=== PATIENT | male | born 1950 | race Caucasian/White ===

== ENCOUNTER 2017-05-31 17:34 | Emergency (ER) | payer MEDICARE, SELFPAY ==
[2017-05-31 17:36] VITALS: BP 140/7; PULSE 90; RESP 16; TEMP 37.1; O2SAT 98; BMI 28.5
--- NOTE | 2017-05-31 18:15 | CT_ITS ---
STUDY: CT ABDOMEN AND PELVIS WITHOUT CONTRAST REASON FOR EXAM: Male, 66 years old. Left flank pain RADIATION DOSAGE (If Supplied By Facility): CTDIvol = ( 8.07 ) mGy, DLP = ( 435.36 ) mGycm TECHNIQUE: Transaxial images were obtained from the dome of the diaphragm to the symphysis pubis without oral contrast, and without intravenous contrast. Sagittal and coronal images were reconstructed. COMPARISON: None. FINDINGS: There are atherosclerotic calcifications of visualized coronary arteries. The visualized portions of the heart are within normal limits. Normal liver. There are multiple gallstones. Normal spleen. Normal pancreas. Normal bilateral adrenal glands. Non obstructive 1 to 2 mm right renal parenchymal stones. There is a 49 mm hypodensity of the Right kidney. This is 1-10 Hounsfield units. There is a 29 mm hypodensity of the superior right kidney. This is 23 Hounsfield units. There is a 36 mm hypodensity of the Left kidney. This is 1-10 Hounsfield units. Degenerative findings of the hips. Mild hydronephrosis caused by left 3.1MM distal ureteral stone. Normal visualized stomach. Normal small intestine. Stool throughout the colon. There is non-visualization of the appendix. There are calcifications of the abdominal aorta and vascular structures. This is consistent for atherosclerotic disease. There is no abdominal aortic aneurysm. Normal inferior vena cava. Subcentimeter mesenteric lymph nodes. Normal urinary bladder. Normal abdominal wall. There are degenerative changes of the osseous structures. CT/Abdomen/Pelvis without Cont IMPRESSION: Mild hydronephrosis caused by left 3.1MM distal ureteral stone. Cholelithiasis. Indeterminate slightly hyperdense lesion of the superior right kidney. Ultrasound can further evaluate. Simple inferior right renal cyst. Simple left renal cyst. Constipation Other findings as above. Electronically Signed: Luis Carlos Figueroa MD at 19:15 EDT , Service support ,
[2017-05-31 18:38] LABS: Absolute Lymphocyte Count 2.17 X10^3/ul (0.83-4.51); Absolute Neutrophil Count 12.4 X10^3/uL (2.0-7.7); Basophil# 0.04 X10^3/uL; Basophil% 0.3 % (0-1); Eosinophil# 0.11 X10^3/uL; Eosinophils% 0.7 % (0-5); Hematocrit 40.5 % (40-54); Hemoglobin 13.7 g/dl (13.0-16.5); Lymphocyte # 2.17 X10^3/ul (4.0); Lymphocyte % 13.7 % (19-41); Mean Corp Hgb Conc 33.8 g/gl (32-36); Mean Corpuscular Hgb 30.4 pg (27.0-32.0); Mean Corpuscular Volume 89.8 fL (80-94); Mean Platelet Vol. 10.2 fl (6.2-12.0); Monocyte# 0.97 X10^3/uL; Monocyte% 6.1 % (0-10); Neutrophil # 12.43 X10^3/uL (2.7-7.7); Neutrophil % 78.6 % (47-70); POSITIVE COUNT NO; POSITIVE DIFFERENTIAL NO; POSITIVE MORPHOLOGY NO; Platelet Count 258 K/mm3 (150-450); RBC Distribution Width SD 42.1 fl (35.1-43.9); Red Blood Count 4.51 M/mm3 (4.6-6.2); White Blood Count 15.8 K/mm3 (4.4-11.0)
[2017-05-31 18:51] LABS: Anion Gap 9 (5-15); BUN 16 mg/dL (7-18); BUN/Creat Ratio 13.6 RATIO (10-20); Calcium,Total 8.9 mg/dL (8.5-10.1); Chloride 105 mmol/L (98-107); Creatinine, Serum 1.18 mg/dL (0.70-1.30); EST Glomerular Filtration Rate 65 mL/min (>60); Est Glom Filt Rate - Afr Amer 79 mL/min (>60); Estimated Creatinine Clearance 57.97 ml/min; Glucose 138 mg/dL (74-106); Potassium 3.9 mmol/L (3.5-5.1); Sodium Level 139 mmol/L (136-145)
[2017-05-31 18:58] LABS: Bacteria 0 SEEN /hpf (None Seen); Squamous Epithelial Cells - UA 0 SEEN /hpf (0-5)
[2017-05-31 19:07] LABS: Color, Urine Yellow (Yellow); Glucose, Dipstick Normal (Normal); Ketone-Dipstick Negative (Negative); Leukocyte Esterase-Dipstick 25 /ul (Negative); Nitrite-Dipstick Negative (Negative); Occult Blood-Urine 50 /ul (Negative); Protein-Dipstick Negative (Negative); Urine Bilirubin Dipstick Negative (Negative); Urine Clarity Clear (Clear); Urine Urobilinogen 1 mg/dl (Normal)
[2017-05-31 19:20] LABS: Calcium Oxalate Crystals Ur RARE /hpf (<or=2+); Mucous, Urine RARE /hpf (<or=2+); Red Blood Cells-Urine 0-5 SEEN /hpf (0-5); White Blood Cells 0-5 SEEN /hpf (0-5)
--- NOTE | 2017-05-31 19:59 | ED.DCSUM_ITS ---
- ER Visit Summary Date of Service: 05/31/17 Chief Complaint: Left flank pain History of Present Illness: The patient is a 66 M states that today he had a sudden onset of left flank pain. He describes it as sharp and stabbing and severe. He states it is gone now. States that 2 days ago he had pain in his left testicle but it resolved. He has a history of schizoaffective disorder lives at [facility]. History of diabetes hypertension hypothyroidism and COPD. He denies any history of kidney stones. Physical Examination: Afebrile vital signs Gen: Well-nourished well-developed Head: Normocephalic atraumatic Eyes: Perrl EOMI ENT: TMs clear no rhinorrhea moist mucous membranes Neck: Supple no lymphadenopathy no JVD nontender CVS: Regular rate rhythm no murmurs normal S1-S2 Respiratory: No distress clear to auscultation bilaterally chest nontender Abdomen: Soft nontender nondistended normal bowel sounds no masses Back: Nontender Extremity: Nontender no edema Skin: Normal color no rash Neuro: alert orientated ?3 CN II-XII intact normal strength sensation reflexes gait cerebellar Psych: Normal affect normal mood Test Results: White count of 15.8. Glucose 138. Urine showed calcium oxalate crystals. CT the flank demonstrated a distal 3 mm stone on the left with associated hydronephroureter. Emergency Department Course and Treatment: Patient required no pain medicine here in the department. We will write for him to have [place]. He is return if worsening otherwise follow-up with urology Impression: 1. Left distal ureteral kidney stone with colic This note was generated with PowerMessage dictation software. It may contain incorrect words, spelling, and punctuation that were not noted in review of the chart prior to signing ED Disposition - Plan for ED Patient: Disposition: Home or Assisted Living Chief Complaint: Flank Pain Instructions: ED Stone Renal W Colic Prescriptions: Hydrocodone Bitart/Apap 5-325 [[place] 5/325] 1 - 2 tab PO Q4H PRN PRN 4 Days #20 tab PRN Reason: Pain Referrals: [facility] Doctor,Out of [Primary Care Provider] - Bran Bee MD [STAFF PHYSICIAN] -
[2017-05-31 20:20] VITALS: BP 122/77; PULSE 83; RESP 17
--- NOTE | 2017-05-31 20:21 | ED.RN ---
IV DC'ED, CATHETER INTACT, SMALL GAUZE DRESSING PLACED. REPORT CALLED TO IVETTE AT [facility] ROMANA LARA AWAITING TRANSPORT BACK TO [facility].
== END 2017-05-31 20:31 | disposition home or self-care (01) ==
PROVIDERS: Emergency Provider Emergency Medicine
DX: N20.0 Calculus of kidney (principal); J44.9 Chronic obstructive pulmonary disease, unspecified; E11.9 Type 2 diabetes mellitus without complications; I10 Essential (primary) hypertension; E03.9 Hypothyroidism, unspecified; F25.9 Schizoaffective disorder, unspecified; Z79.84 Long term (current) use of oral hypoglycemic drugs; Z79.899 Other long term (current) drug therapy
CPT/HCPCS: 74176; 80048; 81001; 85025; 99285; A4216

== ENCOUNTER 2017-07-30 10:30 | Emergency (ER) | payer MEDICARE, SELFPAY ==
[2017-07-30 10:38] VITALS: BP 121/64; PULSE 96; RESP 18; TEMP 36.6; O2SAT 98; BMI 25.6
--- NOTE | 2017-07-30 11:29 | ED.VIS.GEN ---
History of Present Illness Chief Complaint: Nausea/Vomiting Informant: Patient Onset: Month(s) - 10 Context: Gradual Onset Timing: Continuous Quality: Nausea, loss of appetite Current Severity: Moderate Maximum Severity: Moderate Worsened by: Nothing Relieved by: Nothing Associated Symptoms: Nothing Narrative: Patient states he has had these symptoms for 10 months. He has seen a nurse practitioner, they have drawn blood, but he does not have answers and so he is here seeking answers. States he has a doctor in [place], whom he has not seen for this. He is a non-smoker, and he does not have a history of smoking, he does not drink alcohol. He denies any other focal symptoms. - Past Medical History (1) Hypertension Status: Chronic (2) Diabetes mellitus, type II Status: Chronic Past Medical History - Allergies and Home Meds Allergies/Adverse Reactions: Allergies No Known Allergies Allergy (Verified 07/30/17 10:41) Home Medications: Home Medications Medication Instructions Recorded Amlodipine [Norvasc] 10 mg PO DAILY 07/30/17 Cyanocobalamin (Vitamin B-12) 500 mcg PO DAILY 07/30/17 [Vitamin B-12] Fluoxetine [Prozac] 40 mg PO DAILY 07/30/17 Hydroxyzine HCl 25 mg PO QHS 07/30/17 Lamotrigine [Lamictal] 75 mg PO BID 07/30/17 Levothyroxine [Synthroid] 25 mcg PO DAILY 07/30/17 Lisinopril [Zestril] 10 mg PO DAILY 07/30/17 Melatonin 3 mg PO QHS 07/30/17 Mirtazapine [Remeron] 7.5 mg PO QHS 07/30/17 Mirtazapine [Remeron] 15 mg PO QHS 07/30/17 Montelukast [Singulair] 10 mg PO DAILY 07/30/17 Olanzapine [Zyprexa] 10 mg PO QHS 07/30/17 [place]-3 Acid Ethyl Esters [Lovaza] 2 gm PO DAILY 07/30/17 Ondansetron [Zofran Odt] 8 mg PO Q8H PRN PRN #15 tab 07/30/17 Sucralfate [Carafate] 1 gm PO DAILY 07/30/17 Tamsulosin HCl [Flomax] 0.8 mg PO DAILY 07/30/17 Primary Care Physician: [facility] Doctor,Out of [Primary Care Provider] - Surgical History: appendectomy Smoking Status: Never smoker Review of Systems General: Reports: Weight loss. Denies: Chills, Fever, Sweats Eyes: Denies: Visual changes - bilaterally, Diplopia ENT: Denies: Bilateral ear pain, Rhinorrhea, Sore throat Cardiovascular: Denies: Chest pain, Palpitations, Heart racing Respiratory: Denies: Dyspnea, Cough, Dyspnea on exertion, Orthopnea Gastrointestinal: Reports: Nausea. Denies: Abdominal pain, Vomiting, Diarrhea, Constipation, Melena, Hematochezia Genitourinary: Denies: Dysuria, Hematuria, Frequency Musculoskeletal: Denies: Myalgias, Arthralgias, Neck pain, Back pain, Swelling, Extremity Pain Skin: Denies: Rash, Wounds Neurological: Denies: Headache, Weakness, Parasthesia, Numbness Psych: Denies: Suicidal thoughts, Suicidal ideations Endocrine: Denies: Polyuria, Polydipsia, Heat intolerance, Cold intolerance Hematologic: Denies: Easy bruising, Easy bleeding Allergy: Denies: Uticaria, Swelling of the mouth, Swelling of the tongue Physical Exam Vital Signs/Narrative: Vital Signs Temp Pulse Resp BP Pulse Ox 07/30/17 10:38 98 F 96 18 121/64 H 98 Inital Vital Signs reviewed: Yes General: Well nourished, Well developed Head: Normocephalic, Atraumatic Eyes: Perrl, EOMI ENT: Moist mucous membranes, No rhinorrhea, TM's clear. Negative for: Sinus tenderness Neck: Supple, Nontender, No lymphadenopathy, No JVD Cardiovascular: Regular rate, Regular rhythm, No murmurs. Negative for: Tachycardia Respiratory: No distress, CTA bilaterally, Chest nontender Abdomen: Soft, Nondistended, Normal bowel sounds, Tender - Very mild, supraumbilical, no palpable hernias, no skin abnormalities or color changes. No other areas of abdominal tenderness. Rectal: Deferred Back: Nontender, Normal Inspection. Negative for: CVA tenderness Extremities: Nontender, No edema Skin: Normal color, No rash - Or other lesions/suspicious nevi. Neurological: Alert, Oriented x3, Cranial nerves II-XII grossly intact, Normal Strength, Normal Sensation, Normal Gait Psychological: Normal affect Diagnostic/Tx/Re-eval Laboratory Tests 07/30/17 07/30/17 07/30/17 12:00 12:00 12:00 WBC 9.3 RBC 4.43 L Hgb 13.3 Hct 39.6 L MCV 89.4 MCH 30.0 MCHC 33.6 RDW 12.6 RDW Differential 40.9 Plt Count 218 MPV 10.1 Immature Gran % (Auto) 0.300 Neut % (Auto) 69.8 Lymph % (Auto) 21.0 [place] % (Auto) 7.2 Eos % (Auto) 1.4 Baso % (Auto) 0.3 Absolute Neuts (auto) 6.5 Absolute Lymphs (auto) 1.96 Total Counted Not Reportable Sodium 139 Potassium 3.9 Chloride 106 Carbon Dioxide 26.0 Anion Gap 7 BUN 12 Creatinine 1.19 Estim Creat Clear Calc 58.59 Est GFR (MDRD) Af Amer 78 Est GFR (MDRD) Non-Af 64 BUN/Creatinine Ratio 10.1 Glucose 95 Calcium 8.9 Total Bilirubin 0.40 AST 10 L ALT 14 L Alkaline Phosphatase 60 Total Protein 7.3 Albumin 3.5 Globulin 3.8 Albumin/Globulin Ratio 0.9 TSH 0.58 Urine Color Yellow Urine Clarity Clear Urine pH 7.0 Ur Specific [place] 1.010 Urine Protein Negative Urine Glucose (UA) Normal Urine Ketones Negative Urine Occult Blood Negative Urine Nitrite Negative Urine Bilirubin Negative Urine Urobilinogen Normal Ur Leukocyte Esterase 25 H Urine RBC 0 SEEN Urine WBC 0-5 SEEN Ur Squamous Epith Cells 0 SEEN Urine Bacteria 0 SEEN Urine Mucus 0 SEEN - Medical Decision Making His labs including urinalysis, LFTs, TSH are all normal. His review of systems and physical exam are very benign and dictate that no other testing is indicated at this time. Differential also includes abnormal hormone levels, such as low testosterone. I discussed this with him and recommend close outpatient follow-up with his doctor. He is comfortable with that plan, and requests something to use as needed for nausea, will give him his prescription for Zofran. ED Disposition - Plan for ED Patient: Disposition: Home or Assisted Living Chief Complaint: Abd Pain Diagnosis: Nausea, Fatigue Instructions: ED Nausea Vomiting Prescriptions: Ondansetron [Zofran Odt] 8 mg PO Q8H PRN PRN #15 tab PRN Reason: Nausea Referrals: [facility] Doctor,Out of [Primary Care Provider] - Keep [place] appointment
[2017-07-30] MEDS: Ondansetron ODT 4 MG Tablet 8 MG PO (11:51)
[2017-07-30 12:04] LABS: Bacteria 0 SEEN /hpf (None Seen); Mucous, Urine 0 SEEN /hpf (<or=2+); Red Blood Cells-Urine 0 SEEN /hpf (0-5); Squamous Epithelial Cells - UA 0 SEEN /hpf (0-5)
[2017-07-30 12:08] LABS: Absolute Lymphocyte Count 1.96 X10^3/ul (0.83-4.51); Absolute Neutrophil Count 6.5 X10^3/uL (2.0-7.7); Basophil# 0.03 X10^3/uL; Basophil% 0.3 % (0-1); Color, Urine Yellow (Yellow); Eosinophil# 0.13 X10^3/uL; Eosinophils% 1.4 % (0-5); Glucose, Dipstick Normal (Normal); Hematocrit 39.6 % (40-54); Hemoglobin 13.3 g/dl (13.0-16.5); Ketone-Dipstick Negative (Negative); Leukocyte Esterase-Dipstick 25 /ul (Negative); Lymphocyte # 1.96 X10^3/ul (4.0); Mean Corp Hgb Conc 33.6 g/gl (32-36); Mean Corpuscular Volume 89.4 fL (80-94); Mean Platelet Vol. 10.1 fl (6.2-12.0); Monocyte# 0.67 X10^3/uL; Monocyte% 7.2 % (0-10); Neutrophil % 69.8 % (47-70); Nitrite-Dipstick Negative (Negative); Occult Blood-Urine Negative /ul (Negative); Platelet Count 218 K/mm3 (150-450); Protein-Dipstick Negative (Negative); RBC Distribution Width CV 12.6 % (11.6-14.6); RBC Distribution Width SD 40.9 fl (35.1-43.9); Red Blood Count 4.43 M/mm3 (4.6-6.2); Urine Bilirubin Dipstick Negative (Negative); Urine Clarity Clear (Clear); Urine Urobilinogen Normal (Normal); White Blood Count 9.3 K/mm3 (4.4-11.0)
[2017-07-30 12:09] LABS: POSITIVE COUNT NO; POSITIVE DIFFERENTIAL NO; POSITIVE MORPHOLOGY NO
[2017-07-30 12:17] LABS: White Blood Cells 0-5 SEEN /hpf (0-5)
[2017-07-30 12:31] LABS: ALB/GLOB Ratio 0.9 RATIO (0.9-2.4); AST(SGOT) 10 U/L (15-37); Alanine Aminotransfer ALT/SGPT 14 U/L (16-61); Albumin, Serum 3.5 g/dL (3.2-5.0); Alkaline Phosphatase 60 U/L (45-117); Anion Gap 7 (5-15); BUN 12 mg/dL (7-18); BUN/Creat Ratio 10.1 RATIO (10-20); Calcium,Total 8.9 mg/dL (8.5-10.1); Chloride 106 mmol/L (98-107); Creatinine, Serum 1.19 mg/dL (0.70-1.30); EST Glomerular Filtration Rate 64 mL/min (>60); Est Glom Filt Rate - Afr Amer 78 mL/min (>60); Estimated Creatinine Clearance 58.59 ml/min; Globulin 3.8 g/dL (2.2-4.2); Glucose 95 mg/dL (74-106); Potassium 3.9 mmol/L (3.5-5.1); Protein, Total 7.3 g/dL (6.4-8.2); Sodium Level 139 mmol/L (136-145); Thyroid Stim Hormone (TSH) 0.58 uIU/mL (0.358-3.74)
--- NOTE | 2017-07-30 14:15 | ED.RN ---
LEFT MESSAGE AT [facility]
[2017-07-30 14:29] VITALS: PULSE 94; RESP 22; O2SAT 98
== END 2017-07-30 14:30 | disposition home or self-care (01) ==
PROVIDERS: Emergency Provider Emergency Medicine
DX: R11.2 Nausea with vomiting, unspecified (principal); R10.9 Unspecified abdominal pain; I10 Essential (primary) hypertension; E11.9 Type 2 diabetes mellitus without complications; Z79.899 Other long term (current) drug therapy
CPT/HCPCS: 80053; 81001; 84443; 85025; 99284

== ENCOUNTER 2017-11-17 18:48 | Emergency (ER) | payer MEDICARE, SELFPAY ==
[2017-11-17 18:51] VITALS: BP 116/76; PULSE 98; RESP 18; TEMP 36.8; O2SAT 95; BMI 25.2
--- NOTE | 2017-11-17 19:08 | CT_ITS ---
STUDY: CT BRAIN WITHOUT CONTRAST REASON FOR EXAM: Male, 67 years old. Altered mental status and hallucination RADIATION DOSAGE (If Supplied By Facility): CTDIvol = ( 44.99 ) mGy, DLP = ( 762.36 ) mGycm TECHNIQUE: Transaxial CT imaging of the brain was performed without administration of intravenous contrast material. Individualized dose optimization techniques were used for this CT. COMPARISON: None. FINDINGS: Normal soft tissue structures. Normal calvarium. Mild atrophy and periventricular white matter ischemic changes.. Normal basal ganglia and thalami. Normal brainstem. Normal cerebellum. There is no intracranial hemorrhage. There are no findings of an acute ischemic infarction. Normal visualized paranasal sinuses. CT/Brain/Head without Contrast IMPRESSION: Mild atrophy and periventricular white matter ischemic changes. No evidence for acute bleed. If concern for acute infarct MRI recommended Electronically Signed: Arron Wilkinson MD at 21:17 EDT , Service support ,
--- NOTE | 2017-11-17 19:44 | ED.VISSUMM ---
- ER Visit Summary Date of Service: 11/17/17 Chief Complaint: Auditory hallucinations History of Present Illness: The patient is a 67 M presenting with auditory hallucinations. Patient states he has been hearing voices for a long time now. He states it has been ongoing for several months. He states that the voices are telling him that they are going to kill him. He states they are very threatening. Per assisted living staff the voices were telling him to hurt himself. He denies suicidal ideation. Denies other complaints. Physical Examination: Vitals are stable. Patient is afebrile. Alert no acute distress. HEENT exam is unremarkable. Neck is supple. Lungs are clear and equal bilaterally. Heart is regular rate and rhythm. Abdomen is soft nontender nondistended. Extremities are unremarkable. Skin is warm and dry. No focal neurologic deficit. Denies suicidal ideation Remainder of exam is unremarkable. Emergency Department Course and Treatment: CBC, chemistries unremarkable. Urinalysis unremarkable. Tox and alcohol are negative. CT head shows mild atrophy and periventricular white matter ischemic changes. No evidence for acute bleed. Patient feels the hallucinations have been worsening recently. Discussed with the counseling center for evaluation. Disposition: Per counseling center Impression: Auditory hallucinations This note was generated with [employer] dictation software. It may contain incorrect words, spelling, and punctuation that were not noted in review of the chart prior to signing ED Disposition - Plan for ED Patient: Chief Complaint: Mental Health Referrals: [facility] Barragan,Out of [Primary Care Provider] -
[2017-11-17 20:21] LABS: Absolute Lymphocyte Count 2.55 X10^3/ul (0.83-4.51); Absolute Neutrophil Count 7.3 X10^3/uL (2.0-7.7); Basophil# 0.03 X10^3/uL; Basophil% 0.3 % (0-1); Eosinophil# 0.15 X10^3/uL; Eosinophils% 1.4 % (0-5); Hematocrit 39.5 % (40-54); Hemoglobin 13.1 g/dl (13.0-16.5); Lymphocyte # 2.55 X10^3/ul (4.0); Lymphocyte % 23.6 % (19-41); Mean Corp Hgb Conc 33.2 g/gl (32-36); Mean Corpuscular Hgb 30.2 pg (27.0-32.0); Mean Platelet Vol. 10.4 fl (6.2-12.0); Monocyte# 0.76 X10^3/uL; Neutrophil # 7.27 X10^3/uL (2.7-7.7); Neutrophil % 67.3 % (47-70); Platelet Count 246 K/mm3 (150-450); RBC Distribution Width CV 12.7 % (11.6-14.6); RBC Distribution Width SD 42.2 fl (35.1-43.9); Red Blood Count 4.34 M/mm3 (4.6-6.2); White Blood Count 10.8 K/mm3 (4.4-11.0)
[2017-11-17 20:22] LABS: POSITIVE COUNT NO; POSITIVE DIFFERENTIAL NO; POSITIVE MORPHOLOGY NO
[2017-11-17 20:29] LABS: Anion Gap 8 (5-15); BUN 13 mg/dL (7-18); BUN/Creat Ratio 14.9 RATIO (10-20); Calcium,Total 8.8 mg/dL (8.5-10.1); Chloride 103 mmol/L (98-107); Creatinine, Serum 0.87 mg/dL (0.70-1.30); EST Glomerular Filtration Rate 92 mL/min (>60); Est Glom Filt Rate - Afr Amer 111 mL/min (>60); Estimated Creatinine Clearance 77.53 ml/min; Glucose 116 mg/dL (74-106); Potassium 3.8 mmol/L (3.5-5.1); Sodium Level 138 mmol/L (136-145)
[2017-11-17 20:34] LABS: Bacteria 0 SEEN /hpf (None Seen); Mucous, Urine 0 SEEN /hpf (<or=2+); Red Blood Cells-Urine 0 SEEN /hpf (0-5); Squamous Epithelial Cells - UA 0 SEEN /hpf (0-5); White Blood Cells 0 SEEN /hpf (0-5)
[2017-11-17 20:36] LABS: Color, Urine Yellow (Yellow); Glucose, Dipstick Normal (Normal); Ketone-Dipstick Negative (Negative); Leukocyte Esterase-Dipstick 25 /ul (Negative); Nitrite-Dipstick Negative (Negative); Occult Blood-Urine 10 /ul (Negative); Protein-Dipstick Negative (Negative); Specific Gravity, Urine 1.015 (1.002-1.030); Urine Bilirubin Dipstick Negative (Negative); Urine Clarity Clear (Clear); Urine Urobilinogen Normal (Normal)
[2017-11-17 20:37] VITALS: PULSE 90; RESP 18; O2SAT 98
[2017-11-17 20:53] LABS: Alcohol, Blood (Medical)-Serum < 3.0 mg/dL
[2017-11-17 21:02] LABS: Amphetamine Urine VISTA NEGATIVE (<1000 ng/mL); Barbiturate Urine VISTA NEGATIVE (< 200 ng/mL); Benzodiazepine Urine VISTA NEGATIVE (< 200 ng/mL); Cocaine Urine VISTA NEGATIVE (< 300 ng/mL); Ecstacy Urine VISTA NEGATIVE (< 500 ng/mL); Methadone Urine VISTA NEGATIVE (< 300 ng/mL); PCP Urine VISTA NEGATIVE (< 25 ng/mL); THC Urine VISTA NEGATIVE (< 50 ng/mL); Vista UDS pH Range 5
[2017-11-17 22:14] VITALS: BP 119/77; PULSE 84; RESP 18; O2SAT 96
--- NOTE | 2017-11-17 22:59 | ED.RN ---
pt denies suicidal ideation or harming others. spirit voices are calling him vulgar names. suicide precautions not followed as only added as mental health protocol.
--- NOTE | 2017-11-18 00:05 | ED.DEP ---
ED Disposition - Plan for ED Patient: Chief Complaint: Mental Health Instructions: ED Schizo Affective Disorder Referrals: [facility],Out of [Primary Care Provider] - Counseling,Center [GROUP OF PHYSICIANS] -
[2017-11-18 00:32] VITALS: RESP 18; O2SAT 98
== END 2017-11-18 00:33 | disposition home or self-care (01) ==
PROVIDERS: Emergency Provider Emergency Medicine
DX: R44.0 Auditory hallucinations (principal); E11.9 Type 2 diabetes mellitus without complications; I10 Essential (primary) hypertension; Z79.84 Long term (current) use of oral hypoglycemic drugs; Z79.899 Other long term (current) drug therapy
CPT/HCPCS: 70450; 80048; 80307; 80320; 81001; 85025; 99285; G0480

== ENCOUNTER 2017-11-18 13:10 | Emergency (ER) | payer MEDICARE, OTHER, SELFPAY ==
[2017-11-18 13:11] VITALS: BP 124/75; PULSE 95; RESP 16; TEMP 36.8; O2SAT 95; BMI 25.0
--- NOTE | 2017-11-18 13:43 | CT_ITS ---
STUDY: CT ABDOMEN AND PELVIS WITHOUT CONTRAST REASON FOR EXAM: Male, 67 years old. Abdominal pain RADIATION DOSAGE (If Supplied By Facility): CTDIvol = ( 11.62 ) mGy, DLP = ( 606.62 ) mGycm TECHNIQUE: Transaxial images were obtained from the dome of the diaphragm to the symphysis pubis without oral contrast, and without intravenous contrast. Sagittal and coronal images were reconstructed. Individualized dose optimization techniques were used for this CT. COMPARISON: 05/31/2017 FINDINGS: The visualized lung bases are unremarkable. The visualized portions of the heart are within normal limits. Evaluation of the abdominal viscera is limited in the absence of intravenous contrast. Normal liver. There are multiple gallstones. Normal spleen. Normal pancreas. Normal bilateral adrenal glands. Bilateral renal cysts are unchanged. Nonobstructing calculi are seen within the inferior pole of the right kidney. No hydronephrosis. Normal visualized stomach. Normal small intestine. There is stool throughout the colon, in amounts suggesting constipation in the appropriate clinical setting. There is non-visualization of the appendix. There is diffuse atherosclerotic calcification of the abdominal aorta, without a demonstrated aneurysm. Normal inferior vena cava. Normal retroperitoneum. Normal urinary bladder. Normal abdominal wall. There are diffuse degenerative changes of the visualized lumbar spine. CT/Abdomen/Pelvis without Cont IMPRESSION: Constipation. No bowel obstruction or acute renal pathology. Bilateral renal cysts. Cholelithiasis. Additional findings, as detailed above. Electronically Signed: Rory Larson DO at 15:07 EDT Tel , Service support ,
--- NOTE | 2017-11-18 13:49 | ED.DCSUM_ITS ---
- ER Visit Summary Date of Service: 11/18/17 Chief Complaint: Abdominal pain History of Present Illness: The patient is a 67 M with a 4-5 month history of abdominal pain. He states he has chronic abdominal pain and nausea. He has had blood work and CAT scans previously. He states his nausea is worse and he does not feel good. His last p.o. intake was at lunch today. He states this did not cause any abdominal pain made his nausea worse. He denies fever or chills. Past history significant for diabetes, hypertension, reflux disease, schizoaffective disorder. He has had prior appendectomy. Physical Examination: Vital signs unremarkable. Patient sitting upright in bed. By into the room he is asking to go to the hospital. When I advised him that he was at the hospital he states he wanted to be admitted. Head and neck examination is normal. Heart is regular rate and rhythm. Lung sounds are clear. Abdomen is soft no focal tenderness on exam. He has active bowel sounds throughout. Test Results: CBC was a white count 11.9 with normal differential. Chemistry studies significant only for glucose of 127. LFTs and lipase normal. Urinalysis normal. CT flank reveals evidence of constipation and cholelithiasis. No acute bowel or renal findings noted. Emergency Department Course and Treatment: Patient was ordered Zofran, IV fluids , and Bentyl. He declined Bentyl and pulled his IV out as we did not get IV fluids. While awaiting workup, I did review the EMS run sheet. They state that the patient was sent in because of continued anxiety, depression, auditory hallucinations, and nurse at his assisted living facility felt he needed to go to a psychiatric hospital. I spoke with Bren from the counseling center. She will be in to evaluate him. Treatment Plan: [] Disposition: Pending crisis evaluation Impression: 1. Chronic abdominal pain and nausea 2. Schizoaffective disorder This note was generated with [employer] dictation software. It may contain incorrect words, spelling, and punctuation that were not noted in review of the chart prior to signing ED Disposition - Plan for ED Patient: Chief Complaint: Abd Pain Referrals: [facility] Doctor,Out of [NON-STAFF] -
[2017-11-18] MEDS: Ondansetron 4 MG/2 ML Vial IV (13:51)
[2017-11-18] MEDS: 0.9% Normal Saline 1,000 ML 150 ML IV (13:51)
[2017-11-18 13:53] LABS: Basophil# 0.03 X10^3/uL; Basophil% 0.3 % (0-1); Eosinophil# 0.09 X10^3/uL; Eosinophils% 0.8 % (0-5); Hematocrit 42.9 % (40-54); Lymphocyte % 25.1 % (19-41); Mean Corp Hgb Conc 32.6 g/gl (32-36); Mean Corpuscular Hgb 29.9 pg (27.0-32.0); Mean Corpuscular Volume 91.5 fL (80-94); Mean Platelet Vol. 10.4 fl (6.2-12.0); Monocyte# 0.74 X10^3/uL; Monocyte% 6.2 % (0-10); Neutrophil # 8.04 X10^3/uL (2.7-7.7); Neutrophil % 67.3 % (47-70); Platelet Count 278 K/mm3 (150-450); RBC Distribution Width CV 12.8 % (11.6-14.6); RBC Distribution Width SD 42.5 fl (35.1-43.9); Red Blood Count 4.69 M/mm3 (4.6-6.2); White Blood Count 11.9 K/mm3 (4.4-11.0)
[2017-11-18 13:55] LABS: POSITIVE COUNT NO; POSITIVE DIFFERENTIAL NO; POSITIVE MORPHOLOGY NO
[2017-11-18 14:04] LABS: AST(SGOT) 9 U/L (15-37); Alanine Aminotransfer ALT/SGPT 16 U/L (16-61); Albumin, Serum 3.6 g/dL (3.2-5.0); Alkaline Phosphatase 66 U/L (45-117); Anion Gap 8 (5-15); BUN 11 mg/dL (7-18); BUN/Creat Ratio 10.4 RATIO (10-20); Bilirubin, Direct 0.15 mg/dL (0.00-0.30); Calcium,Total 9.4 mg/dL (8.5-10.1); Chloride 103 mmol/L (98-107); Creatinine, Serum 1.06 mg/dL (0.70-1.30); EST Glomerular Filtration Rate 74 mL/min (>60); Est Glom Filt Rate - Afr Amer 89 mL/min (>60); Estimated Creatinine Clearance 63.63 ml/min; Globulin 3.8 g/dL (2.2-4.2); Glucose 127 mg/dL (74-106); Lipase 176 U/L (73-393); Potassium 4.5 mmol/L (3.5-5.1); Protein, Total 7.4 g/dL (6.4-8.2); Sodium Level 140 mmol/L (136-145)
--- NOTE | 2017-11-18 14:12 | ED.RN ---
PER MD OK TO LEAVE IV OUT AT THIS TIME D/T PATIENT PULLING IT OUT.
[2017-11-18 14:26] LABS: Bacteria 0 SEEN /hpf (None Seen); Mucous, Urine 0 SEEN /hpf (<or=2+); Red Blood Cells-Urine 0 SEEN /hpf (0-5); Squamous Epithelial Cells - UA 0 SEEN /hpf (0-5)
[2017-11-18 14:29] LABS: Color, Urine Yellow (Yellow); Glucose, Dipstick Normal (Normal); Ketone-Dipstick Negative (Negative); Leukocyte Esterase-Dipstick 25 /ul (Negative); Nitrite-Dipstick Negative (Negative); Occult Blood-Urine 10 /ul (Negative); Protein-Dipstick Negative (Negative); Urine Bilirubin Dipstick Negative (Negative); Urine Clarity Clear (Clear); Urine Urobilinogen 4 mg/dl (Normal)
[2017-11-18 14:36] LABS: White Blood Cells 0-5 SEEN /hpf (0-5)
[2017-11-18 14:45] LABS: Amphetamine Urine VISTA NEGATIVE (<1000 ng/mL); Barbiturate Urine VISTA NEGATIVE (< 200 ng/mL); Benzodiazepine Urine VISTA NEGATIVE (< 200 ng/mL); Cocaine Urine VISTA NEGATIVE (< 300 ng/mL); Ecstacy Urine VISTA NEGATIVE (< 500 ng/mL); Methadone Urine VISTA NEGATIVE (< 300 ng/mL); PCP Urine VISTA NEGATIVE (< 25 ng/mL); THC Urine VISTA NEGATIVE (< 50 ng/mL); Vista UDS pH Range 6
[2017-11-18 15:17] LABS: Alcohol, Blood (Medical)-Serum < 3.0 mg/dL
--- NOTE | 2017-11-18 15:22 | ED.DEP ---
ED Disposition - Plan for ED Patient: Disposition: Home or Assisted Living Chief Complaint: Abd Pain Instructions: ED Abdominal Pain Unkn Cause Male Referrals: [facility],Out of [NON-STAFF] -
[2017-11-18 16:24] VITALS: BP 112/73; PULSE 87; RESP 17; O2SAT 98
== END 2017-11-18 16:26 | disposition home or self-care (01) ==
PROVIDERS: Emergency Provider Emergency Medicine
DX: R10.9 Unspecified abdominal pain (principal); G89.29 Other chronic pain; R11.0 Nausea; F25.9 Schizoaffective disorder, unspecified; F32.9 Major depressive disorder, single episode, unspecified; F41.9 Anxiety disorder, unspecified; K80.20 Calculus of gallbladder without cholecystitis without obstruction; K59.00 Constipation, unspecified; E11.9 Type 2 diabetes mellitus without complications; I10 Essential (primary) hypertension; K21.9 Gastro-esophageal reflux disease without esophagitis; Z79.84 Long term (current) use of oral hypoglycemic drugs; Z79.899 Other long term (current) drug therapy
CPT/HCPCS: 74176; 80048; 80076; 80307; 80320; 81001; 82542; 83690; 85025; 96374; 99285; J7030; A4216; G0480; J2405

== ENCOUNTER 2018-10-03 06:37 | Emergency (ER) | payer MEDICARE, OTHER, SELFPAY ==
[2018-10-03 06:38] VITALS: BP 135/83; PULSE 77; RESP 17; TEMP 37; O2SAT 93; BMI 26.3
--- NOTE | 2018-10-03 07:23 | ED.VISSUMM ---
- ER Visit Summary Date of Service: 10/03/18 Chief Complaint: Stopped my medicines History of Present Illness: The patient is a 68 M with a history of type 2 diabetes, hypertension, hypothyroidism, schizoaffective disorder. He resides at [facility] He says he stopped taking his medicines about a week ago because they are making his face look hard, pale, and sunken. He denies any new medications, but he is not sure which medications he is prescribed. He is concerned that something is wrong with the pills he has, and he is requesting pills from the pharmacy at [facility]. He denies any suicidal or homicidal thoughts. He is not experiencing muscle spasms, contractions, or uncontrolled movements. He reports decreased sleep, but denies any other associated symptoms. Physical Examination: Afebrile and vital signs unremarkable. Patient is alert and in no acute distress. Oriented to person place and year. Patient is perseverating on the medications he receives from the [place], and I believe he may have some very mild paranoia about them. He is not suicidal or homicidal. He is not displaying signs of hallucinations or tor, but he is depressed. Cranial nerves grossly intact. Moves all extremities. Heart regular rate and rhythm. Lungs clear. Abdomen soft and nontender. Skin appears unremarkable. Face appears unremarkable. Test Results: CBC, CMP, urinalysis, alcohol level, and tox screen are pending. Emergency Department Course and Treatment: Patient has some mood symptoms with depression and decreased sleep, but does not appear to be having manic symptoms. He is also having some paranoid thoughts. I do not believe he is a harm to himself. I attempted to clarify whether or not he is taking his medications with his assisted living facility, but they are not answering the phone at this time. We will check medical clearance and reassess. He will likely need a crisis evaluation. Medical clearance was unremarkable. Patient continued to have paranoid symptoms. I am not sure if he is taking his medication. It is documented by nursing, but the patient says he is not taking it. I have not been able to reach anyone at his assisted living facility for further information. We will continue to attempt to contact them. We will also have a crisis evaluation. Patient was evaluated by crisis. They do not believe he is a threat to himself or others. He has some paranoia and delusions, but otherwise his symptoms are fairly mild. Crisis counselor does not feel that he needs hospitalization. His medical work-up is unremarkable. I do not believe he needs medical hospitalization or psychiatric hospitalization. I did speak with his assisted living facility. They said they are able to administer his medications and they are able to make sure that he takes them. They said that sometimes he will not take them because he believes it is causing his cheeks to be sunken. They feel this has been an ongoing issue and he has had complaints like this in the past. He has no new complaints today. They will make sure he eats and takes his medication. Patient will be discharged back to his facility. Treatment Plan: As above Disposition: Discharge Impression: 1. Schizoaffective disorder This note was generated with [employer] dictation software. It may contain incorrect words, spelling, and punctuation that were not noted in review of the chart prior to signing ED Disposition - Plan for ED Patient: [facility] [Primary Care Provider] -
--- NOTE | 2018-10-03 07:30 | NURSING ---
RN QUESTIONING PATIENT ABOUT REASON FOR NO LONGER TAKING MEDICATION. PT STATES THE PILLS FROM THE [facility] ARE POISONED AND MAKING MY FACE HARD AND PALE. PT ALSO STATES WHEN THE NURSES GIVE ME THE MEDICATION AT MY ASSISTED LIVING I SPIT THEM BACK OUT. RN TO INFORM DR. ZURITA.
[2018-10-03 07:33] LABS: Bacteria 0 SEEN /hpf (None Seen); Mucous, Urine 0 SEEN /hpf (<or=2+); Red Blood Cells-Urine 0 SEEN /hpf (0-5); Squamous Epithelial Cells - UA 0 SEEN /hpf (0-5); White Blood Cells 0 SEEN /hpf (0-5)
[2018-10-03 07:35] LABS: Color, Urine Yellow (Yellow); Glucose, Dipstick Normal (Normal); Ketone-Dipstick Negative (Negative); Leukocyte Esterase-Dipstick Negative /ul (Negative); Nitrite-Dipstick Negative (Negative); Occult Blood-Urine Negative /ul (Negative); Protein-Dipstick Negative (Negative); Urine Bilirubin Dipstick Negative (Negative); Urine Clarity Clear (Clear); Urine Urobilinogen Normal (Normal)
[2018-10-03 07:37] LABS: Absolute Lymphocyte Count 2.43 X10^3/uL (0.83-4.51); Absolute Neutrophil Count 5.8 X10^3/uL (2.0-7.7); Basophil# 0.05 X10^3/uL; Basophil% 0.6 % (0-1); Eosinophil# 0.18 X10^3/uL; Hematocrit 43.6 % (40-54); Hemoglobin 14.6 g/dL (13.0-16.5); Lymphocyte # 2.43 X10^3/ul (4.0); Lymphocyte % 26.8 % (19-41); Mean Corp Hgb Conc 33.5 g/dL (32-36); Mean Corpuscular Hgb 30.9 pg (27.0-32.0); Mean Corpuscular Volume 92.2 fL (80-94); Mean Platelet Vol. 10.2 fl (6.2-12.0); Monocyte# 0.58 X10^3/uL; Monocyte% 6.4 % (0-10); NRBC Flagged by Analyzer 0 % (0-5); Neutrophil # 5.75 X10^3/uL (2.7-7.7); Neutrophil % 63.3 % (47-70); Platelet Count 235 K/mm3 (150-450); RBC Distribution Width CV 12.3 % (11.6-14.6); RBC Distribution Width SD 41.5 fl (35.1-43.9); Red Blood Count 4.73 M/mm3 (4.6-6.2); White Blood Count 9.1 K/mm3 (4.4-11.0)
[2018-10-03 07:53] LABS: ALB/GLOB Ratio 0.9 RATIO (0.9-2.4); AST(SGOT) 16 U/L (15-37); Alanine Aminotransfer ALT/SGPT 14 U/L (16-61); Albumin, Serum 3.5 g/dL (3.2-5.0); Alkaline Phosphatase 67 U/L (45-117); Anion Gap 4 (5-15); BUN 9 mg/dL (7-18); BUN/Creat Ratio 8.3 RATIO (10-20); Calcium,Total 8.6 mg/dL (8.5-10.1); Chloride 106 mmol/L (98-107); Creatinine, Serum 1.08 mg/dL (0.70-1.30); EST Glomerular Filtration Rate 72 mL/min (>60); Est Glom Filt Rate - Afr Amer 87 mL/min (>60); Estimated Creatinine Clearance 61.57 ml/min; Globulin 3.8 g/dL (2.2-4.2); Glucose 126 mg/dL (74-106); Potassium 4.3 mmol/L (3.5-5.1); Protein, Total 7.3 g/dL (6.4-8.2); Sodium Level 138 mmol/L (136-145)
[2018-10-03 07:56] LABS: Amphetamine Urine VISTA NEGATIVE (<1000 ng/mL); Barbiturate Urine VISTA NEGATIVE (< 200 ng/mL); Benzodiazepine Urine VISTA NEGATIVE (< 200 ng/mL); Cocaine Urine VISTA NEGATIVE (< 300 ng/mL); Ecstacy Urine VISTA NEGATIVE (< 500 ng/mL); Methadone Urine VISTA NEGATIVE (< 300 ng/mL); PCP Urine VISTA NEGATIVE (< 25 ng/mL); THC Urine VISTA NEGATIVE (< 50 ng/mL); Vista UDS pH Range 7
[2018-10-03 07:58] LABS: Alcohol, Blood (Medical)-Serum < 3.0 mg/dL
--- NOTE | 2018-10-03 08:13 | ED.RN ---
linda contacted to evaluate pt for paranoia
--- NOTE | 2018-10-03 08:14 | NURSING ---
CALLED [facility], LET THEM KNOW PATIENT IS MEDICALLY CLEARED.
--- NOTE | 2018-10-03 08:16 | NURSING ---
JASON, [facility], CALLED. THEY ARE IN REPORT. SOMEONE WILL BE OVER AFTER WARDS
--- NOTE | 2018-10-03 09:00 | NURSING ---
JASON, [facility], HERE FOR PATIENT
--- NOTE | 2018-10-03 09:06 | ED.RN ---
[facility]
--- NOTE | 2018-10-03 09:40 | ED.DEP ---
ED Disposition - Plan for ED Patient: Instructions: Understanding Schizoaffective Disorder [facility]errals: [facility] [Primary Care Provider] -
--- NOTE | 2018-10-03 09:48 | NURSING ---
[facility] IN 15 MIN
[2018-10-03 09:54] VITALS: BP 147/88; PULSE 82; RESP 16; O2SAT 94
--- NOTE | 2018-10-03 09:54 | ED.RN ---
IV DC'ED, CATHETER INTACT, SMALL GAUZE DRESSING PLACED. DISCHARGE INSTRUCTIONS GIVEN TO AND REVIEWED WITH PATIENT, PATIENT DENIES QUESTIONS OR CONCERNS AND VOICES UNDERSTANDING OF DISCHARGE INSTRUCTIONS. PT AMBULATES OUT OF ROOM WITHOUT DIFFICULTY. PT HOME [facility]IA [facility].
== END 2018-10-03 09:55 | disposition home or self-care (01) ==
PROVIDERS: Emergency Provider Emergency Medicine
DX: F25.9 Schizoaffective disorder, unspecified (principal); E11.9 Type 2 diabetes mellitus without complications; I10 Essential (primary) hypertension; E03.9 Hypothyroidism, unspecified; Z91.14 Patient's other noncompliance with medication regimen; Z79.84 Long term (current) use of oral hypoglycemic drugs; Z79.899 Other long term (current) drug therapy
CPT/HCPCS: 80053; 80307; 80320; 81001; 85025; 99284; A4216; G0480

== ENCOUNTER 2018-11-27 13:09 | Emergency (ER) | payer MEDICARE, SELFPAY ==
[2018-11-27 13:11] VITALS: BP 160/101; PULSE 87; RESP 16; TEMP 36.3; O2SAT 96; BMI 26.4
--- NOTE | 2018-11-27 13:34 | CT_ITS ---
STUDY: CT BRAIN WITHOUT CONTRAST REASON FOR EXAM: Male, 68 years old. Altered mental status. RADIATION DOSAGE (If Supplied By Facility): CTDIvol = ( 60.81 ) mGy, DLP = ( 1112.69 ) mGycm TECHNIQUE: Transaxial CT imaging of the brain was performed without administration of intravenous contrast material. Individualized dose optimization techniques were used for this CT. COMPARISON: Comparison is made with prior study dated November 17, 2017. FINDINGS: Normal soft tissue structures. Normal calvarium. There is mild cerebral atrophy with widening of the extra-axial spaces and ventricular dilatation. There are areas of decreased attenuation within the white matter tracts of the supratentorial brain, consistent with microvascular disease changes. Normal basal ganglia and thalami. Normal brainstem. Normal cerebellum. There is no intracranial hemorrhage. There are no findings of an acute ischemic infarction. Atherosclerotic calcification of the cavernous portions of the internal carotid arteries bilaterally. Normal visualized paranasal sinuses. CT/Brain/Head without Contrast IMPRESSION: Chronic involutional changes of the brain. Electronically Signed: Jay Magallanes, at 14:20 EDT , Service support ,
--- NOTE | 2018-11-27 13:35 | EKG12_ITS ---
Test Reason : GEN ILLNESS Blood Pressure : / mmHG Vent. Rate : 084 BPM Atrial Rate : 084 BPM P-R Int : 170 ms QRS Dur : 090 ms QT Int : 370 ms P-R-T Axes : 050 -21 042 degrees QTc Int : 437 ms Normal sinus rhythm Normal ECG Confirmed by MARCELLE BLOOD ([id number]), photography editor ALEX QUESADA ([id number]) on 12/04/2018 1:19:22 PM Referred By: CORWIN Confirmed By:MARCELLE BLOOD
--- NOTE | 2018-11-27 13:37 | ED.VIS.GEN ---
History of Present Illness Chief Complaint: General Illness Informant: Patient Onset: Days Context: Gradual Onset Timing: Continuous Narrative: Is a 68-year-old male with history of schizoaffective disorder presenting from [facility] for medication noncompliance. Patient has been refusing to take his olanzapine and benztropine for the past few weeks because he states that [facility]. Patient needs medications are deforming his face. Patient states that the [facility] is out to get him because he is good and they are evil. He also states that they are trying to ruin his life. When asked to they are he says you know, people. Patient denies any homicidal suicidal ideations. He denies hearing voices or any visual/auditory hallucinations. He reports decreased appetite and not been able to sleep. He denies any other complaints at this time. Past Medical History - Allergies and Home Meds Allergies/Adverse Reactions: Allergies No Known Allergies Allergy (Verified 11/27/18 13:16) Primary Care Physician: [facility],[place] [Primary Care Provider] - Surgical History: appendectomy Smoking Status: Never smoker Review of Systems All systems negative except as indicated Psych: Reports: - - Paranoia Physical Exam Vital Signs/Narrative: Vital Signs Temp Pulse Resp BP Pulse Ox 11/27/18 13:11 97.4 F L 87 16 160/101 H 96 Inital Vital Signs reviewed: Yes General: Well nourished, Well developed, No Acute Distress Head: Normocephalic, Atraumatic Eyes: Perrl, EOMI ENT: Moist mucous membranes, No rhinorrhea Neck: Supple, Nontender Cardiovascular: Regular rate, Regular rhythm, No murmurs Respiratory: No distress, CTA bilaterally, Chest nontender Abdomen: Soft, Nontender, Nondistended, Normal bowel sounds Back: Nontender, Normal Inspection Extremities: Nontender, No edema Skin: Normal color, No rash Neurological: Alert, Oriented x3, Cranial nerves II-XII grossly intact, Normal Strength, Normal Sensation Psychological: Normal affect, - - It is paranoid with thoughts of prosecution. Is not appear to have insight and feels that people are out to get him. I am concerned that he is unable to care for himself especially as he has been refusing to take his psychiatric medications. Diagnostic/Tx/Re-eval Diagnostic Data Brain CT 11/27/18 13:34 IMPRESSION: Chronic involutional changes of the brain. Electronically Signed: Jay Magallanes, at 14:20 EDT , Service support , Laboratory Results - last 24 hr 11/27/18 11/27/18 11/27/18 13:50 13:50 13:50 WBC 11.1 H RBC 5.02 Hgb 15.3 Hct 46.3 MCV 92.2 MCH 30.5 MCHC 33.0 RDW Std Deviation 41.3 RDW Coeff of Kirk 12.1 Plt Count 252 MPV 10.1 Immature Gran % (Auto) 1.000 H Neut % (Auto) 75.0 H Lymph % (Auto) 16.7 L Fentress % (Auto) 6.2 Eos % (Auto) 0.5 Baso % (Auto) 0.6 Absolute Neuts (auto) 8.3 H Absolute Lymphs (auto) 1.85 Nucleated RBC % 0 Sodium 139 Potassium 4.1 Chloride 102 Carbon Dioxide 30.0 Anion Gap 7 BUN 14 Creatinine 1.14 Estim Creat Clear Calc 58.33 Est GFR (MDRD) Af Amer 82 Est GFR (MDRD) Non-Af 67 BUN/Creatinine Ratio 12.3 Glucose 123 H Calcium 8.9 Total Bilirubin 0.30 AST 17 ALT 18 Alkaline Phosphatase 80 Total Protein 7.9 Albumin 3.7 Globulin 4.2 Albumin/Globulin Ratio 0.9 Urine Color Urine Clarity Urine pH Ur Specific Labelle Urine Protein Urine Glucose (UA) Urine Ketones Urine Occult Blood Urine Nitrite Urine Bilirubin Urine Urobilinogen Ur Leukocyte Esterase Urine RBC Urine WBC Ur Squamous Epith Cells Urine Bacteria Urine Mucus Urine Opiates Screen Urine Methadone Screen Ur Barbiturates Screen Ur Phencyclidine Scrn Ur Amphetamines Screen U Methamphetamin-MDMA U Benzodiazepines Scrn Urine Cocaine Screen U Cannabinoids Screen Ur Drug Screen Comment Ethyl Alcohol 3.0 11/27/18 11/27/18 15:15 15:15 WBC RBC Hgb Hct MCV MCH MCHC RDW Std Deviation RDW Coeff of Kirk Plt Count MPV Immature Gran % (Auto) Neut % (Auto) Lymph % (Auto) Fentress % (Auto) Eos % (Auto) Baso % (Auto) Absolute Neuts (auto) Absolute Lymphs (auto) Nucleated RBC % Sodium Potassium Chloride Carbon Dioxide Anion Gap BUN Creatinine Estim Creat Clear Calc Est GFR (MDRD) Af Amer Est GFR (MDRD) Non-Af BUN/Creatinine Ratio Glucose Calcium Total Bilirubin AST ALT Alkaline Phosphatase Total Protein Albumin Globulin Albumin/Globulin Ratio Urine Color Yellow Urine Clarity Sl. Cloudy Urine pH 6.5 Ur Specific Labelle 1.010 Urine Protein Negative Urine Glucose (UA) 100 H Urine Ketones Negative Urine Occult Blood 10 H Urine Nitrite Negative Urine Bilirubin Negative Urine Urobilinogen Normal Ur Leukocyte Esterase Negative Urine RBC 0-5 SEEN Urine WBC 0 SEEN Ur Squamous Epith Cells 0 SEEN Urine Bacteria 0 SEEN Urine Mucus 0 SEEN Urine Opiates Screen NEGATIVE Urine Methadone Screen NEGATIVE Ur Barbiturates Screen NEGATIVE Ur Phencyclidine Scrn NEGATIVE Ur Amphetamines Screen NEGATIVE U Methamphetamin-MDMA NEGATIVE U Benzodiazepines Scrn NEGATIVE Urine Cocaine Screen NEGATIVE U Cannabinoids Screen NEGATIVE Ur Drug Screen Comment Ethyl Alcohol - Rhythm Strip Rhythm Strip: Sinus Rhythm Rate: 84 Ectopy: None - EKG Initial EKG Interpretation: Sinus Rhythm, - - Normal EKG No ST segment abnormality - Medical Decision Making Patient is evaluated for worsening paranoia and medication noncompliance from his nursing facility. Despite multiple interventions at the skilled nursing where they have sat down and explained to him that he needs to take his medications and so on patient's continued to feel very paranoid and this seems to be worsening. I do feel that patient would benefit from inpatient psychiatric evaluation. He is medically cleared. Patient is excepted at [facility] for Dr. Davies. Stable at time of disposition. ED Disposition - Plan for ED Patient: [facility] -
[2018-11-27 14:03] LABS: Absolute Lymphocyte Count 1.85 X10^3/uL (0.83-4.51); Absolute Neutrophil Count 8.3 X10^3/uL (2.0-7.7); Basophil# 0.07 X10^3/uL; Basophil% 0.6 % (0-1); Eosinophil# 0.05 X10^3/uL; Eosinophils% 0.5 % (0-5); Hematocrit 46.3 % (40-54); Hemoglobin 15.3 g/dL (13.0-16.5); Lymphocyte # 1.85 X10^3/ul (4.0); Lymphocyte % 16.7 % (19-41); Mean Corpuscular Hgb 30.5 pg (27.0-32.0); Mean Corpuscular Volume 92.2 fL (80-94); Mean Platelet Vol. 10.1 fl (6.2-12.0); Monocyte# 0.68 X10^3/uL; Monocyte% 6.2 % (0-10); NRBC Flagged by Analyzer 0 % (0-5); Neutrophil # 8.29 X10^3/uL (2.7-7.7); Platelet Count 252 K/mm3 (150-450); RBC Distribution Width CV 12.1 % (11.6-14.6); RBC Distribution Width SD 41.3 fl (35.1-43.9); Red Blood Count 5.02 M/mm3 (4.6-6.2); White Blood Count 11.1 K/mm3 (4.4-11.0)
[2018-11-27 14:28] LABS: ALB/GLOB Ratio 0.9 RATIO (0.9-2.4); AST(SGOT) 17 U/L (15-37); Alanine Aminotransfer ALT/SGPT 18 U/L (16-61); Albumin, Serum 3.7 g/dL (3.2-5.0); Alkaline Phosphatase 80 U/L (45-117); Anion Gap 7 (5-15); BUN 14 mg/dL (7-18); BUN/Creat Ratio 12.3 RATIO (10-20); Calcium,Total 8.9 mg/dL (8.5-10.1); Chloride 102 mmol/L (98-107); Creatinine, Serum 1.14 mg/dL (0.70-1.30); EST Glomerular Filtration Rate 67 mL/min (>60); Est Glom Filt Rate - Afr Amer 82 mL/min (>60); Estimated Creatinine Clearance 58.33 ml/min; Globulin 4.2 g/dL (2.2-4.2); Glucose 123 mg/dL (74-106); Potassium 4.1 mmol/L (3.5-5.1); Protein, Total 7.9 g/dL (6.4-8.2); Sodium Level 139 mmol/L (136-145)
--- NOTE | 2018-11-27 14:54 | CM.ED ---
SOCIAL WORK ASSESSMENT INFORMANT: DR. MCCLELLAN REASON FOR REFERRAL: MENTAL HEALTH EVALUATION, MEDICATION NONCOMPLIANCE LIVING SITUATION: PATIENT RESIDES AT [facility]. SUPPORT/RESOURCES: PATIENT HAS LEGAL GUARDIAN THROUGH THE [facility]- ESTEPH[place]IA DAVIS AND COMPUTER AIDED DESIGN DESIGNER THROUGH THE [employer] . PATIENT STATES ALSO HAS SISTER, TIFFANIE LARA ([facility]) AND BROTHER, AUGUSTIN LARA ([place]). MENTAL HEALTH TREATMENT/HISTORY: PATIENT REPORTS HX OF DEPRESSION AND SCHIZOAFFECTIVE DISORDER. PATIENT STATES HAS NOT BEEN TAKING HIS MEDICATION [facility] AND THEY ARE GIVING ME BAD PILLS THAT TEAR MY FACE UP. PATIENT STATES IS IN THE EMERGENCY ROOM TODAY D/T MENTAL CRUELTY AND SOCIAL GAMES. PATIENT REPORTS HAS NOT BEEN ABLE TO SLEEP AND HAS NO APPETITE. PATIENT WANTING MEDICATION TO HELP WITH THIS. DISCUSSED WITH PATIENT'S LEGAL GUARDIAN, ESTEPHANIA DAVIS AND [facility] OVER THE PHONE. PER ESTEPHANIA, PATIENT NEEDING INPATIENT PSYCH HOSPITALIZATION AND REQUESTED PATIENT BE SENT TO THE EMERGENCY DEPARTMENT THIS DAY. INFORMED PATIENT HAVING INCREASINGLY BIZARRE BEHAVIOR, PARANOID, DELUSIONAL, AND LACKING INSIGHT INTO MENTAL HEALTH. SUBSTANCE ABUSE HISTORY: PATIENT DENIES ANY CURRENT USE. PATIENT REPORTS 3-4 YEARS AGO WAS USING CRACK COCAINE AND MARIJUANA. MENTAL STATUS EXAM: PATIENT ALERT AND ORIENTED. MEMORY: FAIR APPEARANCE/GENERAL BEHAVIOR: CALM MOOD/AFFECT: ANXIOUS COMMUNICATION PATTERN: RESPONDS TO QUESTIONS THOUGHT PROCESS: PARANOID, DELUSIONS RISK TO SELF/OTHERS: PATIENT DENIES ANY SUICIDAL OR HOMICIDAL IDEATION. COLLABORATION WITH DR. MCCLELLAN, PATIENT'S LEGAL GUARDIAN, AND COMPUTER AIDED DESIGN DESIGNER FROM THE [place]. PATIENT REQUIRING INPATIENT HOSPITALIZATION FOR STABILIZATION D/T NON COMPLIANCE WITH MEDICATIONS. PATIENT STATES I JUST WANT TO FEEL BETTER. I HAVE NOT SLEPT OR ATE. THIS WORKER TO MAKE APPROPRIATE REFERRAL. PLAN: INPATIENT HOSPITALIZATION NAM WRIGHT, CLUB ATTENDANT, CATHODE WASHER.
--- NOTE | 2018-11-27 15:00 | CM.ED ---
SOCIAL WORK REQUESTED COPY OF GUARDIANSHIP PAPERWORK FROM PATIENT'S GUARDIAN, ESTEPHANIA DAVIS. ESTEPHANIA TO HAVE OFFICE FAX OVER FORMS. WILL ADD TO CHART ONCE RECEIVED. NAM WRIGHT, CRITICAL CARE PHYSICIAN ASSISTANT, METAL MOVER.
[2018-11-27 15:19] LABS: Bacteria 0 SEEN /hpf (None Seen); Mucous, Urine 0 SEEN /hpf (<or=2+); Squamous Epithelial Cells - UA 0 SEEN /hpf (0-5); White Blood Cells 0 SEEN /hpf (0-5)
[2018-11-27 15:25] LABS: Color, Urine Yellow (Yellow); Glucose, Dipstick 100 mg/dl (Normal); Ketone-Dipstick Negative (Negative); Leukocyte Esterase-Dipstick Negative /ul (Negative); Nitrite-Dipstick Negative (Negative); Occult Blood-Urine 10 /ul (Negative); Protein-Dipstick Negative (Negative); Urine Bilirubin Dipstick Negative (Negative); Urine Clarity Sl. Cloudy (Clear); Urine Urobilinogen Normal (Normal); Urine pH 6.5 (5.0 - 8.0)
[2018-11-27 15:33] LABS: Red Blood Cells-Urine 0-5 SEEN /hpf (0-5)
[2018-11-27 16:00] LABS: Amphetamine Urine VISTA NEGATIVE (<1000 ng/mL); Barbiturate Urine VISTA NEGATIVE (< 200 ng/mL); Benzodiazepine Urine VISTA NEGATIVE (< 200 ng/mL); Cocaine Urine VISTA NEGATIVE (< 300 ng/mL); Ecstacy Urine VISTA NEGATIVE (< 500 ng/mL); Methadone Urine VISTA NEGATIVE (< 300 ng/mL); PCP Urine VISTA NEGATIVE (< 25 ng/mL); THC Urine VISTA NEGATIVE (< 50 ng/mL); Vista UDS pH Range 6
[2018-11-27 16:10] VITALS: BP 161/98
--- NOTE | 2018-11-27 16:13 | CM.ED ---
SOCIAL WORK REFERRAL FAXED AND CALLED TO [facility]. REFERRAL INFORMATION GIVEN TO JAY. JAY TO REVIEW REFERRAL AND GET BACK TO THIS WORKER. NAM WRIGHT, ARMATURE COIL WINDER, MANAGER INFUSION.
--- NOTE | 2018-11-27 16:16 | CM.ED ---
SOCIAL WORK CALL TO THE [facility] TO INFORM GUARDIANSHIP PAPERS HAVE NOT BEEN RECEIVED AT THIS TIME, SPOKE WITH RAND. CALL TRANSFERRED TO [facility] IN MEDICAL RECORDS. PER CHAO, WILL FAX OVER GUARDIANSHIP FORMS. NAM WRIGHT MSW, MANAGER CORPORATE RESPONSIBILITY.
--- NOTE | 2018-11-27 17:00 | CM.ED ---
SOCIAL WORK RECEIVED CALL FROM GERALDO WITH [facility]. PATIENT ACCEPTED BY DR. CORDERO TO [facility]. NURSE TO CALL REPORT TO . COPY OF PINK SLIP FAXED TO [facility]. NAM WRIGHT, ALLERGIST IMMUNOLOGIST, POULTRY FARM LABORER.
--- NOTE | 2018-11-27 18:32 | CM.ED ---
SOCIAL WORK CALL TO PATIENT'S GUARDIAN, ESTEPHANIA DAVIS . UPDATED ON PATIENT'S ACCEPTANCE TO [facility]. INFORMED OF ISSUES WITH TRANSPORTATION THIS EVENING. WILL UPDATE WHEN TRANSPORTATION ARRANGED. NAM WRIGHT, BOOKIE, KITCHEN AND COUNTER WORKER.
[2018-11-27 19:46] VITALS: BP 150/82; PULSE 78; RESP 16; O2SAT 97
== END 2018-11-27 20:54 ==
PROVIDERS: Emergency Provider Emergency Medicine
DX: F25.9 Schizoaffective disorder, unspecified (principal); F22 Delusional disorders; Z91.14 Patient's other noncompliance with medication regimen; Z79.84 Long term (current) use of oral hypoglycemic drugs; Z79.82 Long term (current) use of aspirin; Z79.899 Other long term (current) drug therapy
CPT/HCPCS: 70450; 80053; 80307; 80320; 81001; 85025; 93005; 99285; G0480

== ENCOUNTER 2018-12-23 12:42 | Emergency (ER) | payer MEDICARE, OTHER, SELFPAY ==
[2018-12-23] VITALS (7 sets, daily range): BP systolic 127–151; BP diastolic 82–106; PULSE 76–104; RESP 16–18; TEMP 36.6; O2SAT 96–100; BMI 27.4
--- NOTE | 2018-12-23 13:03 | EKG12_ITS ---
Test Reason : [facility] Blood Pressure : / mmHG Vent. Rate : 089 BPM Atrial Rate : 089 BPM P-R Int : 168 ms QRS Dur : 092 ms QT Int : 346 ms P-R-T Axes : 055 -04 062 degrees QTc Int : 420 ms Normal sinus rhythm Incomplete right bundle branch block Borderline ECG Confirmed by ROSA KAUFFMAN, JASPAL ([id number]), sound editor ANETA FISHER ([id number]) on 12/28/2018 10:19:58 AM Referred By: Confirmed By:JASPAL LEE MD
[2018-12-23 13:35] LABS: Absolute Lymphocyte Count 4.07 X10^3/uL (0.83-4.51); Absolute Neutrophil Count 7.1 X10^3/uL (2.0-7.7); Basophil# 0.06 X10^3/uL; Basophil% 0.5 % (0-1); Eosinophil# 0.22 X10^3/uL; Eosinophils% 1.8 % (0-5); Hematocrit 45.7 % (40-54); Hemoglobin 14.9 g/dL (13.0-16.5); Lymphocyte # 4.07 X10^3/ul (4.0); Lymphocyte % 32.4 % (19-41); Mean Corp Hgb Conc 32.6 g/dL (32-36); Mean Corpuscular Hgb 30.5 pg (27.0-32.0); Mean Corpuscular Volume 93.5 fL (80-94); Mean Platelet Vol. 10.2 fl (6.2-12.0); Monocyte# 1.01 X10^3/uL; NRBC Flagged by Analyzer 0 % (0-5); Neutrophil # 7.05 X10^3/uL (2.7-7.7); Neutrophil % 56.1 % (47-70); Platelet Count 248 K/mm3 (150-450); RBC Distribution Width CV 12.4 % (11.6-14.6); RBC Distribution Width SD 42.5 fl (35.1-43.9); Red Blood Count 4.89 M/mm3 (4.6-6.2); White Blood Count 12.6 K/mm3 (4.4-11.0)
[2018-12-23 13:44] LABS: Amphetamine Urine VISTA NEGATIVE (<1000 ng/mL); Barbiturate Urine VISTA NEGATIVE (< 200 ng/mL); Benzodiazepine Urine VISTA NEGATIVE (< 200 ng/mL); Cocaine Urine VISTA NEGATIVE (< 300 ng/mL); Ecstacy Urine VISTA NEGATIVE (< 500 ng/mL); Methadone Urine VISTA NEGATIVE (< 300 ng/mL); PCP Urine VISTA NEGATIVE (< 25 ng/mL); THC Urine VISTA NEGATIVE (< 50 ng/mL); Vista UDS pH Range 5
[2018-12-23 13:47] LABS: Anion Gap 8 (5-15); BUN 12 mg/dL (7-18); BUN/Creat Ratio 10.9 RATIO (10-20); Calcium,Total 9.2 mg/dL (8.5-10.1); Chloride 102 mmol/L (98-107); EST Glomerular Filtration Rate 70 mL/min (>60); Est Glom Filt Rate - Afr Amer 85 mL/min (>60); Estimated Creatinine Clearance 60.45 ml/min; Glucose 119 mg/dL (74-106); Potassium 3.7 mmol/L (3.5-5.1); Sodium Level 137 mmol/L (136-145)
[2018-12-23 14:05] LABS: Alcohol, Blood (Medical)-Serum < 3.0 mg/dL
--- NOTE | 2018-12-23 15:08 | ED.VISSUMM ---
- ER Visit Summary Date of Service: 12/23/18 Chief Complaint: Abnormal behavior History of Present Illness: The patient is a 68 M who presents with delusion and abnormal behavior at his extended care facility. Patient states people at his extended care facility are trying to poison his food. Patient states the people there a jealous of him because of his good looks and athletic ability. Patient has been threatening to leave the facility. Patient states that he is a Lutheran and he is close with God. Patient states that other people at the facility are terrorists. Physical Examination: Vital signs are stable. Patient is afebrile. Patient is in no acute distress. Oral mucosa is pink and moist. Neck is supple. Trachea is midline. There is no JVD noted. Heart was regular rate and rhythm. Lungs are clear and equal bilateral. Abdomen is soft. Bowel sounds are normal. There is no tenderness. There is no guarding noted. Skin is warm dry. Cranial nerves II through XII are intact. There are no focal motor or sensory deficits noted. Patient is having some pressured speech and delusions. Patient having some paranoid ideation. Patient has poor insight and judgment. Test Results: CBC and basic metabolic profile were essentially within normal limits. Urine tox screen was negative. Serum alcohol level was negative. Emergency Department Course and Treatment: Case was discussed with crisis counseling. Crisis felt like patient needed to be placed for further psychiatric evaluation and treatment. [facility] slip was filled out on the patient. Crisis counselor is attempting to place the patient in a psychiatric facility. Disposition: Transfer to psychiatric center Impression: 1. Delusions This note was generated with [employer] dictation software. It may contain incorrect words, spelling, and punctuation that were not noted in review of the chart prior to signing ED Disposition - Plan for ED Patient: Disposition: Psychiatric Hospital or Unit Diagnosis: Delusions [facility] [Primary [facility] Provider] -
--- NOTE | 2018-12-23 21:24 | ED.RN ---
PATIENT REFUSED ALL EVENING MEDICATIONS.
[2018-12-23] MEDS: LORazepam 1 MG Tablet PO (23:26)
[2018-12-24 01:00] VITALS: RESP 14
[2018-12-24 03:00] VITALS: RESP 15
[2018-12-24 04:08] VITALS: BP 127/85; PULSE 85; RESP 15; O2SAT 99
[2018-12-24 06:00] VITALS: RESP 15
== END 2018-12-24 12:52 ==
PROVIDERS: Emergency Provider Emergency Medicine
DX: F22 Delusional disorders (principal); R51 Headache; Z79.84 Long term (current) use of oral hypoglycemic drugs; Z79.82 Long term (current) use of aspirin; Z79.899 Other long term (current) drug therapy
CPT/HCPCS: 80048; 80307; 80320; 85025; 93005; 99285; G0480

== ENCOUNTER 2019-05-24 20:45 | Emergency (ER) | payer MEDICARE, MEDICAID, OTHER, SELFPAY ==
[2018-12-23 12:44] VITALS: BMI 27.4
[2019-05-24 20:46] VITALS: BP 140/81; PULSE 92; RESP 16; TEMP 36.5; O2SAT 96; BMI 25.1
--- NOTE | 2019-05-24 21:00 | ED.DCSUM_ITS ---
- ER Visit Summary Date of Service: 05/24/19 Chief Complaint: [Insomnia] History of Present Illness: The patient is a 68 M [presents to the emergency department from assisted living facility for complaint of insomnia. Patient states that he is not been able to sleep for quite a while. Patient states he is up all night. Nursing staff at the assisted living facility states that he has not taken any of his psychiatric medications since January of last year. Patient tells me that he has a court hearing in a few days to determine if he can live on his own because he would like to get his own apartment. Patient states that he stopped taking his psychiatric medications because it causes facial distortions and causes the bones in his face to elongate. Patient denies any auditory or visual hallucinations otherwise. He denies being suicidal or homicidal. He has no other physical complaints. Patient has history of diabetes as well as hypertension.] Physical Examination: [HEENT-PERRLA, EOMI. Cranial nerves II through XII grossly intact. TMs clear. Mucous membranes moist. No adenopathy. Cardiovascular-regular rate and rhythm without murmur or ectopy Lungs-clear to auscultation, chest wall stable without crepitus or subcu emphysema Abdomen-normoactive bowel sounds, soft, nontender, no rebound or rigidity, no peritoneal signs. Extremities-intact ?4, normal range of motion, normal pulses, atraumatic] Test Results: [None indicated] Emergency Department Course and Treatment: [I had Mohan from social work see patient and speak to him who then spoke with his power of divorce attorney as well as to staff at the assisted living facility. Patient is not suicidal or homicidal. At this point he simply looking for something to help him sleep. I am happy to write him a prescription for melatonin.] Treatment Plan: [Treat patient with melatonin.] Disposition: [Discharged home in stable condition] Impression: [Insomnia] This note was generated with [employer] dictation software. It may contain incorrect words, spelling, and punctuation that were not noted in review of the chart prior to signing ED Disposition - Plan for ED Patient: [facility]] -
--- NOTE | 2019-05-24 21:30 | ED.DEP ---
ED Disposition - Plan for ED Patient: Instructions: Insomnia, Treating Insomnia Prescriptions: Melatonin/Pyridoxine HCl (B6) [Melatonin 3 mg Tablet] 1 ea PO QHS PRN #30 tab PRN Reason: Insomnia Prescription Printed [facility] [Primary Care Provider] -
--- NOTE | 2019-05-24 21:31 | CM.ED ---
SOCIAL WORK INFORMANT: DR. PIERCE REASON FOR REFERRAL: MENTAL HEALTH CHIEF COMPLAINT: PATIENT REPORTS HAS BEEN HAVING ISSUES WITH SLEEPING. REQUESTING MEDICATION TO ASSIST WITH SLEEP. LIVING SITUATION: [facility]. SUPPORT/RESOURCES: PATIENT FOLLOWS WITH THE COUNSELING CENTER AND HAS A GUARDIAN-ESTEPHANIA SUSAN [phone], COVERED BUTTON MAKER-GURPREET ABDUL, AND WAS LAST SEEN [facility] ON 04/11/2019. MENTAL HEALTH HISTORY/TREATMENT: PATIENT WITH HISTORY OF DEPRESSION AND SCHIZOAFFECTIVE DISORDER. INFORMED BY PATIENT'S GUARDIAN, ESTEPHANIA AND NURSE, KAN FROM [facility] PATIENT HAS NOT BEEN TAKING MEDICATIONS SINCE JANUARY. SUBSTANCE ABUSE HISTORY: PATIENT DENIES ANY CURRENT USE. REPORTS USED TO USE CRACK COCAINE AND MARIJUANA 4 YEARS AGO. RISK TO SELF/OTHERS: PATIENT DENIES ANY SUICIDAL OR HOMICIDAL IDEATIONS. ORIENTATION: A&OX3 MEMORY: FAIR APPEARANCE/GENERAL BEHAVIOR: APPROPRIATE, CALM MOOD/AFFECT: APPROPRIATE COMMUNICATION PATTERN: RESPONDS TO QUESTIONS THOUGHT PROCESS: APPROPRIATE ASSESSMENT: MET WITH PATIENT IN ROOM. INTRODUCED ROLE AND REASON FOR REFERRAL. PATIENT STATES HAS NOT BEEN ABLE TO SLEEP AND REQUESTING SOMETHING TO ASSIST WITH SLEEP. INQUIRED ABOUT WHY PATIENT IS NOT TAKING MEDICATIONS. PATIENT STATES SOME OF THE MEDICATIONS MAKE MY FACE FEEL DISTORTED. PATIENT REPORTS TINGLING IN FACE WHEN TAKING MEDICATIONS. PATIENT REPORTS FOLLOWS WITH THE [facility]SELING [facility] AND DISCUSSED MENTAL HEALTH HISTORY. PATIENT DENIES ANY SUICIDAL OR HOMICIDAL IDEATIONS. PATIENT REPORTS, I JUST WANT TO BE ABLE TO GET SOME SLEEP. COLLABORATION WITH DR. PIERCE. PLAN FOR PATIENT TO RETURN TO [facility] WITH PRESCRIPTION FOR SLEEP AIDE. CALL TO THE [facility], SPOKE WITH RYLEE. RYLEE REPORTS WILL UPDATE PATIENT'S COVERED BUTTON MAKER, GURPREET AND REQUEST SHE FOLLOW UP WITH PATIENT SOON POSSIBLE. PATIENT WAS LAST SEEN BY [facility] 04/11/2019. CALL TO PATIENT'S GUARDIAN, ESTEPHANIA SUSAN. PER ESTEPHANIA, PATIENT HAS BEEN NON-COMPLIANT WITH MEDICATION. CALL FACILITATED TO NURSE TO OBTAIN CONSENT FOR TREATMENT. CALL TO [facility] TO DISCUSS PATIENT'S RETURN, SPOKE WITH KAN. UPDATED ON PLAN. KAN VOICED CONCERNS WITH PATIENT NOT TAKING MEDICATIONS. INFORMED KAN PATIENT'S COVERED BUTTON MAKER WILL BE FOLLOWING UP. UPDATED NURSING STAFF ON THE ABOVE. PLAN: RETURN TO [facility] WITH FOLLOW UP FROM THE [facility]SELING [facility]. Kal WRIGHT MSW, RADIOSONDE OPERATOR.
--- NOTE | 2019-05-24 21:55 | ED.RN ---
called and spoke with legal guardian, Domenica for a ride back to assisted living. prescription for melatonin was not covered by insurance, will give once dose prior to dc.
[2019-05-24] MEDS: MELATONIN 3 MG TABLET PO (22:00)
--- NOTE | 2019-05-24 22:47 | ED.RN ---
verbal consent to tx given by guardian jae bird
== END 2019-05-24 22:50 | disposition home or self-care (01) ==
PROVIDERS: Emergency Provider Emergency Medicine
DX: G47.00 Insomnia, unspecified (principal); Z91.14 Patient's other noncompliance with medication regimen; E11.9 Type 2 diabetes mellitus without complications; I10 Essential (primary) hypertension; Z79.84 Long term (current) use of oral hypoglycemic drugs; Z79.899 Other long term (current) drug therapy
CPT/HCPCS: 99284

== ENCOUNTER 2019-07-12 12:08 | Emergency (ER) | payer MEDICARE, MEDICAID, OTHER, SELFPAY ==
[2019-07-12 12:09] VITALS: BP 131/88; PULSE 95; RESP 18; TEMP 36.7; O2SAT 93; BMI 24.5
--- NOTE | 2019-07-12 12:23 | CT_ITS ---
STUDY: CT BRAIN WITHOUT CONTRAST REASON FOR EXAM: Male, 68 years old. MENTAL STATUS CHANGE, ALTERCATION RADIATION DOSAGE (If Supplied By Facility): CTDIvol = ( 60.81 ) mGy, DLP = ( 2088.55 ) mGycm TECHNIQUE: Transaxial CT imaging of the brain was performed without administration of intravenous contrast material. Individualized dose optimization techniques were used for this CT. COMPARISON: Comparison is made with prior examination dated November 27, 2018 and November 17, 2017. FINDINGS: Normal soft tissue structures. Normal calvarium. There is mild cerebral atrophy with widening of the extra-axial spaces and ventricular dilatation. There are areas of decreased attenuation within the white matter tracts of the supratentorial brain, consistent with microvascular disease changes. Normal basal ganglia and thalami. Normal brainstem. Normal cerebellum. There is no intracranial hemorrhage. There are no findings of an acute ischemic infarction. Atherosclerotic calcification of the cavernous portions of the internal carotid arteries bilaterally. Normal visualized paranasal sinuses. CT/Brain/Head without Contrast IMPRESSION: Chronic involutional changes of the brain. Electronically Signed: Jay Magallanes, at 13:34 EDT , Service support ,
--- NOTE | 2019-07-12 12:24 | EKG12_ITS ---
Test Reason : MENTAL HEALTH Blood Pressure : / mmHG Vent. Rate : 083 BPM Atrial Rate : 083 BPM P-R Int : 160 ms QRS Dur : 094 ms QT Int : 364 ms P-R-T Axes : 029 -25 049 degrees QTc Int : 427 ms Normal sinus rhythm Normal ECG Confirmed by ROSA KAUFFMAN, JASPAL ([id number]), visual effects editor ANETA FISHER ([id number]) on 07/15/2019 3:12:38 PM Referred By: MALLIKA/CHELSY Confirmed By:JASPAL LEE MD
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
[2019-07-12 12:59] LABS: Absolute Lymphocyte Count 1.68 X10^3/uL (0.83-4.51); Absolute Neutrophil Count 7.9 X10^3/uL (2.0-7.7); Basophil# 0.03 X10^3/uL; Basophil% 0.3 % (0-1); Eosinophil# 0.08 X10^3/uL; Eosinophils% 0.8 % (0-5); Hematocrit 45.5 % (40-54); Hemoglobin 15.5 g/dL (13.0-16.5); Lymphocyte # 1.68 X10^3/ul (4.0); Lymphocyte % 16.3 % (19-41); Mean Corp Hgb Conc 34.1 g/dL (32-36); Mean Corpuscular Hgb 30.8 pg (27.0-32.0); Mean Corpuscular Volume 90.3 fL (80-94); Mean Platelet Vol. 10.6 fl (6.2-12.0); Monocyte# 0.62 X10^3/uL; NRBC Flagged by Analyzer 0 % (0-5); Neutrophil # 7.85 X10^3/uL (2.7-7.7); Neutrophil % 76.2 % (47-70); Platelet Count 220 K/mm3 (150-450); RBC Distribution Width CV 12.7 % (11.6-14.6); RBC Distribution Width SD 41.3 fl (35.1-43.9); Red Blood Count 5.04 M/mm3 (4.6-6.2); White Blood Count 10.3 K/mm3 (4.4-11.0)
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
[2019-07-12 13:17] LABS: Alcohol, Blood (Medical)-Serum < 3.0 mg/dL
[2019-07-12 13:18] LABS: Anion Gap 7 (5-15); BUN 17 mg/dL (7-18); BUN/Creat Ratio 14.7 RATIO (10-20); Calcium,Total 9.1 mg/dL (8.5-10.1); Chloride 104 mmol/L (98-107); Creatinine, Serum 1.16 mg/dL (0.70-1.30); EST Glomerular Filtration Rate 66 mL/min (>60); Est Glom Filt Rate - Afr Amer 80 mL/min (>60); Estimated Creatinine Clearance 57.33 ml/min; Glucose 113 mg/dL (74-106); Sodium Level 138 mmol/L (136-145)
[2019-07-12 13:56] LABS: Amphetamine Urine VISTA NEGATIVE (<1000 ng/mL); Barbiturate Urine VISTA NEGATIVE (< 200 ng/mL); Benzodiazepine Urine VISTA NEGATIVE (< 200 ng/mL); Cocaine Urine VISTA NEGATIVE (< 300 ng/mL); Ecstacy Urine VISTA NEGATIVE (< 500 ng/mL); Methadone Urine VISTA NEGATIVE (< 300 ng/mL); PCP Urine VISTA NEGATIVE (< 25 ng/mL); THC Urine VISTA NEGATIVE (< 50 ng/mL); Vista UDS pH Range 5
[2019-07-12 14:14] LABS: Mucous, Urine 0 SEEN /hpf (<or=2+); Squamous Epithelial Cells - UA 0 SEEN /hpf (0-5)
[2019-07-12 14:16] LABS: Color, Urine Yellow (Yellow); Glucose, Dipstick Normal (Normal); Ketone-Dipstick 50 mg/dl (Negative); Leukocyte Esterase-Dipstick Negative /ul (Negative); Nitrite-Dipstick Negative (Negative); Occult Blood-Urine 25 /ul (Negative); Protein-Dipstick Negative (Negative); Specific Gravity, Urine 1.025 (1.002-1.030); Urine Bilirubin Dipstick Negative (Negative); Urine Clarity Clear (Clear); Urine Urobilinogen 1 mg/dl (Normal)
[2019-07-12 14:23] LABS: Bacteria 1+ /hpf (None Seen); Red Blood Cells-Urine 0-5 SEEN /hpf (0-5); White Blood Cells 0-5 SEEN /hpf (0-5)
--- NOTE | 2019-07-12 14:28 | CM.ED ---
SOCIAL WORK PER DR. VALDEZ, PATIENT MEDICALLY CLEARED. REFERRAL FAXED TO [facility] AT THIS TIME. Kal WRIGHT, CHIEF OPERATOR HYDROFORMER, BUSINESS ANALYTICS FACULTY MEMBER.
--- NOTE | 2019-07-12 14:37 | CM.ED ---
SOCIAL WORK CALL TO [facility], VERIFIED FAX RECEIVED, SPOKE WITH ADRIANNE. PER ADRIANNE, WILL CALL ONCE REVIEW COMPLETE. Kal WRIGHT, SUPREME COURT JUSTICE, COMMUNITY LIAISON OFFICER.
[2019-07-12 14:53] VITALS: RESP 18
[2019-07-12 15:19] VITALS: RESP 18
--- NOTE | 2019-07-12 15:25 | CM.ED ---
SOCIAL WORK PATIENT ACCEPTED TO [facility] BY DR. YANELI MINA TO [facility]. NURSE TO CALL REPORT TO . PINK SLIP FAXED PER REQUEST. DIPPER MACHINE OPERATOR TO SET UP TRANSPORT. PATIENT AND STAFF UPDATED. PATIENT REMAINS CALM AND COOPERATIVE. Kal WRIGHT, MASTER COASTAL WATERS, ACCOUNTS SPECIALIST.
--- NOTE | 2019-07-12 15:33 | CM.ED ---
Addendum entered by Amber Wright 07/12/19 15:42: RECEIVED CALL BACK FROM PATIENT'S LEGAL GUARDIANESTEPHANIA. UPDATED ON ACCEPTANCE TO [facility]. ALL QUESTIONS ANSWERED. Original Note: SOCIAL WORK ATTEMPTED TO CALL TO PATIENT'S LEGAL GUARDIAN, ESTEPHANIA SHELL TO UPDATE ON PATIENT'S ACCEPTANCE TO [facility]. NO ANSWER, UNABLE TO LEAVE MESSAGE. Kal WRIGHT, CHIEF RISK OFFICER, WEAVING LOOM OPERATOR.
[2019-07-12 15:46] VITALS: BP 138/93; PULSE 87; RESP 20; O2SAT 93
--- NOTE | 2019-07-12 15:52 | ED.RN ---
[facility] ETA 2 HOURS
--- NOTE | 2019-07-12 15:54 | ED.RN ---
Sriram sainz called and updated on pt transfer to [facility]
[2019-07-12 16:00] VITALS: RESP 12
--- NOTE | 2019-07-12 16:06 | ED.RN ---
[facility] NOT AVAILABLE UNTIL AFTER 1999
[2019-07-12 17:14] VITALS: RESP 18
== END 2019-07-12 17:50 ==
LOC: ED 13:13
PROVIDERS: Emergency Provider Emergency Medicine
DX: F20.9 Schizophrenia, unspecified (principal); F31.9 Bipolar disorder, unspecified; R45.1 Restlessness and agitation; I10 Essential (primary) hypertension; Z91.14 Patient's other noncompliance with medication regimen; Z79.899 Other long term (current) drug therapy
CPT/HCPCS: 70450; 80048; 80307; 80320; 81001; 85025; 87635; 93005; 99285; G2023; G0480; U0002

== ENCOUNTER 2019-07-26 16:40 | Emergency (ER) | payer MEDICARE, MEDICAID, OTHER, SELFPAY ==
[2019-07-26 16:40] VITALS: BP 114/76; PULSE 89; RESP 16; TEMP 36.7; O2SAT 95; BMI 25.0
--- NOTE | 2019-07-26 16:49 | ED.VIS.INJ ---
History of Present Illness Chief Complaint: Upper Extremity Injury Informant: Patient, [facility] Onset: Days Mechanism/Context: Blunt Injury, Fall Quality of Pain: Dull, Aching Location: Right hand Current Severity: Mild Maximum Severity: Mild Worsened by: Nothing Relieved by: Nothing Associated Symptoms: Negative for: Parasthesias, Weakness, Loss of function, Inability to ambulate, Loss of consciousness, Amnesia Narrative: Is a 69-year-old [id number] male presents with injury to his right hand. States he fell several days ago onto his outstretched hand. He had x-rays at the nursing facility. He was told he needs a cast. He denies paresthesia, anesthesia or motor weakness. He denied head trauma. He denies any other complaints. He is not a good informant since he is slightly disoriented and reason he is at facility. Prior similar symptoms: No Recent Illness/Hospitalization: No - Past Medical History (1) Diabetes mellitus, type II Status: Chronic (2) Hypertension Status: Chronic Past Medical History - Allergies and Home Meds Allergies/Adverse Reactions: Allergies No Known Allergies Allergy (Verified 07/26/19 16:44) Primary Care Physician: [facility],[place] [Primary Care Provider] - Prior records reviewed: Yes Surgical History: appendectomy Lives: Residential Smoking Status: Never smoker Alcohol: None Drugs: None Review of Systems General: Denies: Malaise, Sweats Eyes: Denies: Visual changes - bilaterally, Blurred Vision - bilaterally ENT: Denies: Bilateral ear pain, Rhinorrhea, Sore throat Cardiovascular: Denies: Chest pain, Palpitations Respiratory: Denies: Dyspnea, Cough, Dyspnea on exertion Gastrointestinal: Denies: Nausea, Vomiting Musculoskeletal: Reports: Swelling, Extremity Pain. Denies: Myalgias, Arthralgias, Neck pain, Back pain Skin: Denies: Rash, Abscess, Abrasions, Wounds Neurological: Denies: Weakness, Parasthesia, Numbness Allergy: Denies: Uticaria, Swelling of the mouth Physical Exam Vital Signs/Narrative: Vital Signs Temp Pulse Resp BP Pulse Ox 07/26/19 16:40 98.1 F 89 16 114/76 95 Inital Vital Signs reviewed: Yes General: Well nourished, Well developed, Unkempt Head: Normocephalic, Atraumatic, - - No clinical findings of basilar skull fracture. Eyes: Perrl, EOMI, - - There is no subconjunctival hemorrhage.. Negative for: Pale conjunctiva, Scleral icterus ENT: TM's clear, No hemotympanum or drainage, No trauma. Negative for: Hemotympanum, Otorrhea, Nasal trauma, Nasal septal hematoma Neck: Nontender, Full ROM. Negative for: Spinal Tenderness, Paraspinal Tenderness Cardiovascular: Regular rate, Regular rhythm, No murmurs, Normal S1, Normal S2 Respiratory: No distress, CTA bilaterally, Chest nontender Abdomen: Soft, Nontender, Nondistended, Normal bowel sounds Back: Nontender Extremeties: There is soft tissue swelling with ecchymosis over the head of the fourth and fifth metacarpal bone. There is no rotational malalignment. The extensor minimize and extensor commonness tendon are function intact. The flexor digitorum superficialis and flexor digitorum profundus is intact for the index, long, ring and little finger. There is no subungual hematoma noted. There is no pain the patient over the carpal bones or distal radius or ulna. There is no pain the patient over the lateral medial epicondyle. Is no pain the patient over the radial head or olecranon process. There is no pain the patient over the proximal humerus. Skin: Normal color, No rash, Trauma. Negative for: Cyanosis, Diaphoresis, Jaundice Neurological: Alert, Cranial nerves II-XII grossly intact, Normal Strength, Normal Sensation. Negative for: Oriented x3 Psychological: Normal affect - Glascow Coma Scale Eye Opening: Spontaneous Motor: Obeys Commands Verbal: Oriented Coma Scale Total: 15 Diagnostic/Tx/Re-eval Chest X-Ray - ED: Read by ED Physician, - - View x-ray of the right hand reveals a fracture at the neck of the fifth metacarpal consistent with a boxer's fracture. There is approximately 10 to 20 degrees of dorsal apex angulation, which is acceptable. Of note on exam there is no rotational malalignment. - Medical Decision Making X-ray of the hand was obtained to evaluate for fracture versus contusion. Procedures - Upper Extremity Splints Upper Extremity Splint: Plaster, - - Short arm AP splint Splint Fabrication: Fabricated Location: Right ED Disposition - Plan for ED Patient: Disposition: Home or Assisted Living Diagnosis: Fracture of fifth metacarpal bone of right hand Instructions: ED Fx Boxer Referrals: [place] [Primary Care Provider] - Sreekanth Nguyen DO [STAFF PHYSICIAN] - 5-7 Days
--- NOTE | 2019-07-26 16:55 | RAD_ITS ---
STUDY: X-RAY - RIGHT HAND REASON FOR EXAM: Male, 69 years old. FALL A COUPLE DAYS AGO -- ECF SENT PATIENT HERE FOR CASTING TECHNIQUE: 3 view(s) of the hand. COMPARISON: None. FINDINGS: Normal radiocarpal articulation. Normal distal radioulnar joint. Normal visualized carpal bones. Normal carpal articulations Normal carpometacarpal articulation of the thumb. Normal second through fifth carpometacarpal joints. There is an impacted comminuted fracture of the fifth metacarpal neck and head with mild dorsal medial angulation of fracture fragments. Normal metacarpophalangeal joint of the thumb. Normal interphalangeal joint of the thumb. Normal proximal and distal phalanges of the thumb. Normal metacarpophalangeal joints of the second through fifth fingers. Normal proximal and distal interphalangeal joints of the second through fifth fingers. Normal phalanges of the second through fifth fingers. Soft tissue swelling of the proximal fifth finger. RAD/Hand Min 3 Views IMPRESSION: Acute boxer''s fracture of the fifth metacarpal Electronically Signed: Arron Wilkinson MD at 17:11 EDT , Service support ,
[2019-07-26 20:35] VITALS: PULSE 99; RESP 15; O2SAT 95
== END 2019-07-26 20:47 | disposition home or self-care (01) ==
PROVIDERS: Emergency Provider Emergency Medicine
DX: S62.336A Displaced fracture of neck of fifth metacarpal bone, right hand, initial encounter for closed fracture (principal); W19.XXXA Unspecified fall, initial encounter; Y93.9 Activity, unspecified; Y92.9 Unspecified place or not applicable; Y99.9 Unspecified external cause status; E11.9 Type 2 diabetes mellitus without complications; I10 Essential (primary) hypertension; Z79.899 Other long term (current) drug therapy
CPT/HCPCS: 29125; 73130; 99284

== ENCOUNTER 2019-07-28 19:30 | Emergency (ER) | payer MEDICARE, MEDICAID, OTHER, SELFPAY ==
[2019-07-28 19:32] VITALS: BP 216/77; PULSE 91; RESP 16; TEMP 36.9; O2SAT 94; BMI 24.3
[2019-07-28 20:23] LABS: Absolute Lymphocyte Count 1.73 X10^3/uL (0.83-4.51); Absolute Neutrophil Count 7.2 X10^3/uL (2.0-7.7); Basophil# 0.03 X10^3/uL; Basophil% 0.3 % (0-1); Eosinophil# 0.16 X10^3/uL; Eosinophils% 1.6 % (0-5); Hematocrit 42.1 % (40-54); Hemoglobin 13.7 g/dL (13.0-16.5); Lymphocyte # 1.73 X10^3/ul (4.0); Lymphocyte % 17.7 % (19-41); Mean Corp Hgb Conc 32.5 g/dL (32-36); Mean Corpuscular Hgb 30.2 pg (27.0-32.0); Mean Corpuscular Volume 92.9 fL (80-94); Mean Platelet Vol. 10.6 fl (6.2-12.0); Monocyte# 0.61 X10^3/uL; Monocyte% 6.2 % (0-10); NRBC Flagged by Analyzer 0 % (0-5); Neutrophil % 73.6 % (47-70); Platelet Count 251 K/mm3 (150-450); RBC Distribution Width CV 12.5 % (11.6-14.6); RBC Distribution Width SD 42.7 fl (35.1-43.9); Red Blood Count 4.53 M/mm3 (4.6-6.2); White Blood Count 9.8 K/mm3 (4.4-11.0)
[2019-07-28 20:42] LABS: Alcohol, Blood (Medical)-Serum < 3.0 mg/dL
[2019-07-28 20:44] LABS: Anion Gap 6 (5-15); BUN 16 mg/dL (7-18); BUN/Creat Ratio 15.2 RATIO (10-20); Calcium,Total 9.1 mg/dL (8.5-10.1); Chloride 104 mmol/L (98-107); Creatinine, Serum 1.05 mg/dL (0.70-1.30); EST Glomerular Filtration Rate 74 mL/min (>60); Est Glom Filt Rate - Afr Amer 90 mL/min (>60); Estimated Creatinine Clearance 62.43 ml/min; Glucose 129 mg/dL (74-106); Potassium 3.4 mmol/L (3.5-5.1); Sodium Level 140 mmol/L (136-145)
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
[2019-07-28 21:16] LABS: AST(SGOT) 13 U/L (15-37); Alanine Aminotransfer ALT/SGPT 16 U/L (16-61); Albumin, Serum 3.4 g/dL (3.2-5.0); Alkaline Phosphatase 60 U/L (45-117); Bilirubin, Direct 0.19 mg/dL (0.00-0.30); Globulin 3.9 g/dL (2.2-4.2); Protein, Total 7.3 g/dL (6.4-8.2)
[2019-07-28 21:50] VITALS: BP 138/74; PULSE 69; RESP 18; O2SAT 97
[2019-07-28 21:54] LABS: Amphetamine Urine VISTA NEGATIVE (<1000 ng/mL); Barbiturate Urine VISTA NEGATIVE (< 200 ng/mL); Benzodiazepine Urine VISTA NEGATIVE (< 200 ng/mL); Cocaine Urine VISTA NEGATIVE (< 300 ng/mL); Ecstacy Urine VISTA NEGATIVE (< 500 ng/mL); Methadone Urine VISTA NEGATIVE (< 300 ng/mL); PCP Urine VISTA NEGATIVE (< 25 ng/mL); THC Urine VISTA NEGATIVE (< 50 ng/mL); Vista UDS pH Range 6
== END 2019-07-28 21:51 | disposition home or self-care (01) ==
PROVIDERS: Emergency Provider Emergency Medicine
DX: F20.9 Schizophrenia, unspecified (principal); Z79.899 Other long term (current) drug therapy
CPT/HCPCS: 80048; 80076; 80307; 80320; 85025; 99284; G0480

== ENCOUNTER 2019-08-03 22:42 | Emergency (ER) | payer MEDICARE, MEDICAID, OTHER, SELFPAY ==
[2019-08-03 22:43] VITALS: BP 131/75; PULSE 86; RESP 16; TEMP 2.7; TEMP 36.9; BMI 24.6
--- NOTE | 2019-08-03 22:47 | EKG12_ITS ---
Test Reason : MENTAL HEALTH Blood Pressure : / mmHG Vent. Rate : 074 BPM Atrial Rate : 074 BPM P-R Int : 180 ms QRS Dur : 092 ms QT Int : 380 ms P-R-T Axes : 059 -15 046 degrees QTc Int : 421 ms Normal sinus rhythm Normal ECG Confirmed by ROSA KAUFFMAN, JASPAL ([id number]), editorial assistant CHAMP CORREA ([id number]) on 08/06/2019 1:36:44 PM Referred By: COURTNEY Confirmed By:JASPAL LEE MD
--- NOTE | 2019-08-03 22:47 | CT_ITS ---
STUDY: CT BRAIN WITHOUT CONTRAST REASON FOR EXAM: Male, 69 years old. Change in mental status. Patient reports hearing voices. History of schizophrenia. RADIATION DOSAGE (If Supplied By Facility): CTDIvol = ( 44.99 ) mGy, DLP = ( 779.24 ) mGycm TECHNIQUE: Transaxial CT imaging of the brain was performed without administration of intravenous contrast material. Individualized dose optimization techniques were used for this CT. COMPARISON: July 12, 2019. FINDINGS: Normal soft tissue structures. Normal calvarium. Normal size ventricles and extra-axial spaces for the patient''s age. Normal white matter tracts of the cerebral hemispheres. Normal basal ganglia and thalami. Normal brainstem. Normal cerebellum. There is no intracranial hemorrhage. There are no findings of an acute ischemic infarction. Normal visualized paranasal sinuses. CT/Brain/Head without Contrast IMPRESSION: Normal unenhanced CT scan of the brain for the patient''s age. Electronically Signed: Jarred Bazzi MD at 23:22 EDT , Service support ,
--- NOTE | 2019-08-03 22:49 | ED.VIS.GEN ---
History of Present Illness Chief Complaint: Mental Health Informant: Patient Onset: Days Context: Gradual Onset Timing: Continuous Current Severity: Moderate Maximum Severity: Moderate Narrative: The patient is a 69-year-old male with medical history significant for schizophrenia, hypertension who presents to the emergency department with auditory hallucinations. Patient has a history of hallucinations, but states he has now begun to hear evil spirits. They are telling him to cut himself and to kill himself. He states this is different than his normal hallucinations. He states he is been compliant with all his medications. He denies any fever. He denies any chills or sweats. He denies any other recent infectious symptoms. He states he is otherwise been in his normal state of health. Prior similar symptoms: Yes Recent Illness/Hospitalization: Yes Past Medical History - Allergies and Home Meds Allergies/Adverse Reactions: Allergies No Known Allergies Allergy (Verified 07/28/19 19:39) Primary Care Physician: [facility] [Primary Care Provider] - Prior records reviewed: Yes Past Medical History: - - Schizophrenia, hypertension Surgical History: appendectomy Smoking Status: Never smoker Review of Systems General: Denies: Chills, Fever, Sweats Eyes: Denies: Visual changes - bilaterally, Diplopia ENT: Denies: Rhinorrhea, Sore throat Cardiovascular: Denies: Chest pain, Palpitations Respiratory: Denies: Dyspnea, Cough, Dyspnea on exertion Gastrointestinal: Denies: Abdominal pain, Nausea, Vomiting, Diarrhea, Melena, Hematochezia Genitourinary: Denies: Dysuria, Hematuria, Frequency Musculoskeletal: Denies: Back pain, Extremity Pain Skin: Denies: Rash, Wounds Neurological: Denies: Headache, Weakness, Numbness Psych: Reports: Anxiety, Suicidal thoughts Physical Exam Vital Signs/Narrative: Vital Signs Temp Pulse Resp BP 08/03/19 22:43 36.9 F L 86 16 131/75 H Inital Vital Signs reviewed: Yes General: Well nourished, Well developed, No Acute Distress Head: Normocephalic, Atraumatic Eyes: Perrl, EOMI ENT: Moist mucous membranes, No rhinorrhea Neck: Supple, Nontender Cardiovascular: Regular rate, Regular rhythm, No murmurs Respiratory: No distress, CTA bilaterally, Chest nontender Abdomen: Soft, Nontender, Nondistended, Normal bowel sounds Back: Nontender, Normal Inspection Extremities: Nontender, No edema Skin: Normal color, No rash Neurological: Alert, Oriented x3, Cranial nerves II-XII grossly intact, Normal Strength, Normal Sensation Psychological: Normal affect, Depressed Diagnostic/Tx/Re-eval Clinical Impression(s) from Imaging Studies Brain CT 08/03/19 22:47 IMPRESSION: Normal unenhanced CT scan of the brain for the patient''s age. Electronically Signed: Jarred Bazzi MD at 23:22 EDT , Service support , Abnormal Lab Results 08/03/19 08/03/19 08/03/19 23:00 23:00 23:00 WBC 11.8 H RBC 4.46 L Hgb 13.6 Hct 41.3 MCV 92.6 MCH 30.5 MCHC 32.9 RDW Std Deviation 43.0 RDW Coeff of Kirk 12.7 Plt Count 252 MPV 10.6 Immature Gran % (Auto) 0.500 Neut % (Auto) 69.4 Lymph % (Auto) 22.0 [place] % (Auto) 5.9 Eos % (Auto) 1.9 Baso % (Auto) 0.3 Absolute Neuts (auto) 8.2 H Absolute Lymphs (auto) 2.59 Nucleated RBC % 0 Sodium 139 Potassium 3.7 Chloride 107 Carbon Dioxide 28.0 Anion Gap 4 L BUN 15 Creatinine 1.30 Estim Creat Clear Calc 50.42 Est GFR (MDRD) Af Amer 70 Est GFR (MDRD) Non-Af 58 L BUN/Creatinine Ratio 11.5 Glucose 138 H Calcium 9.0 Total Bilirubin 0.30 AST 12 L ALT 15 L Alkaline Phosphatase 65 Total Protein 7.1 Albumin 3.5 Globulin 3.6 Albumin/Globulin Ratio 1.0 Urine Color Urine Clarity Urine pH Ur Specific [place] Urine Protein Urine Glucose (UA) Urine Ketones Urine Occult Blood Urine Nitrite Urine Bilirubin Urine Urobilinogen Ur Leukocyte Esterase Urine RBC Urine WBC Ur Squamous Epith Cells Urine Bacteria Urine Mucus Urine Opiates Screen Urine Methadone Screen Ur Barbiturates Screen Ur Phencyclidine Scrn Ur Amphetamines Screen U Methamphetamin-MDMA U Benzodiazepines Scrn Urine Cocaine Screen U Cannabinoids Screen Ur Drug Screen Comment Ethyl Alcohol < 3.0 COVID-19 (AARTI) 0508/03/19 08/03/19 23:35 23:35 23:40 WBC RBC Hgb Hct MCV MCH MCHC RDW Std Deviation RDW Coeff of Kirk Plt Count MPV Immature Gran % (Auto) Neut % (Auto) Lymph % (Auto) [place] % (Auto) Eos % (Auto) Baso % (Auto) Absolute Neuts (auto) Absolute Lymphs (auto) Nucleated RBC % Sodium Potassium Chloride Carbon Dioxide Anion Gap BUN Creatinine Estim Creat Clear Calc Est GFR (MDRD) Af Amer Est GFR (MDRD) Non-Af BUN/Creatinine Ratio Glucose Calcium Total Bilirubin AST ALT Alkaline Phosphatase Total Protein Albumin Globulin Albumin/Globulin Ratio Urine Color Yellow Urine Clarity Sl. Cloudy Urine pH 6.0 Ur Specific [place] 1.020 Urine Protein Negative Urine Glucose (UA) Normal Urine Ketones Negative Urine Occult Blood 25 H Urine Nitrite Negative Urine Bilirubin Negative Urine Urobilinogen 4 H Ur Leukocyte Esterase Negative Urine RBC 0-5 SEEN Urine WBC 0 SEEN Ur Squamous Epith Cells 0 SEEN Urine Bacteria 0 SEEN Urine Mucus 0 SEEN Urine Opiates Screen NEGATIVE Urine Methadone Screen NEGATIVE Ur Barbiturates Screen NEGATIVE Ur Phencyclidine Scrn NEGATIVE Ur Amphetamines Screen NEGATIVE U Methamphetamin-MDMA NEGATIVE U Benzodiazepines Scrn NEGATIVE Urine Cocaine Screen NEGATIVE U Cannabinoids Screen NEGATIVE Ur Drug Screen Comment Ethyl Alcohol COVID-19 (AARTI) Cancelled - Medical Decision Making The patient presents to the emergency department with new auditory hallucinations that he describes as evil and that are telling him to hurt himself. This is very different than his normal baseline. Metabolic screening exam was performed. Patient is medically cleared. He was evaluated by crisis and it was thought that he would best be served with inpatient psychiatric hospitalization. Impression 1. Auditory hallucinations 2. Suicidal ideation ED Disposition - Plan for ED Patient: [facility] [[facility] -
[2019-08-03 23:21] LABS: AST(SGOT) 12 U/L (15-37); Alanine Aminotransfer ALT/SGPT 15 U/L (16-61); Albumin, Serum 3.5 g/dL (3.2-5.0); Alkaline Phosphatase 65 U/L (45-117); Anion Gap 4 (5-15); BUN 15 mg/dL (7-18); BUN/Creat Ratio 11.5 RATIO (10-20); Chloride 107 mmol/L (98-107); EST Glomerular Filtration Rate 58 mL/min (>60); Est Glom Filt Rate - Afr Amer 70 mL/min (>60); Estimated Creatinine Clearance 50.42 ml/min; Globulin 3.6 g/dL (2.2-4.2); Glucose 138 mg/dL (74-106); Potassium 3.7 mmol/L (3.5-5.1); Protein, Total 7.1 g/dL (6.4-8.2); Sodium Level 139 mmol/L (136-145)
[2019-08-03 23:28] LABS: Alcohol, Blood (Medical)-Serum < 3.0 mg/dL
[2019-08-03 23:30] VITALS: RESP 18
[2019-08-03 23:35] LABS: Absolute Lymphocyte Count 2.59 X10^3/uL (0.83-4.51); Absolute Neutrophil Count 8.2 X10^3/uL (2.0-7.7); Basophil# 0.04 X10^3/uL; Basophil% 0.3 % (0-1); Eosinophil# 0.22 X10^3/uL; Eosinophils% 1.9 % (0-5); Hematocrit 41.3 % (40-54); Hemoglobin 13.6 g/dL (13.0-16.5); Lymphocyte # 2.59 X10^3/ul (4.0); Mean Corp Hgb Conc 32.9 g/dL (32-36); Mean Corpuscular Hgb 30.5 pg (27.0-32.0); Mean Corpuscular Volume 92.6 fL (80-94); Mean Platelet Vol. 10.6 fl (6.2-12.0); Monocyte% 5.9 % (0-10); NRBC Flagged by Analyzer 0 % (0-5); Neutrophil # 8.16 X10^3/uL (2.7-7.7); Neutrophil % 69.4 % (47-70); Platelet Count 252 K/mm3 (150-450); RBC Distribution Width CV 12.7 % (11.6-14.6); Red Blood Count 4.46 M/mm3 (4.6-6.2); White Blood Count 11.8 K/mm3 (4.4-11.0)
[2019-08-03 23:46] LABS: Bacteria 0 SEEN /hpf (None Seen); Mucous, Urine 0 SEEN /hpf (<or=2+); Squamous Epithelial Cells - UA 0 SEEN /hpf (0-5); White Blood Cells 0 SEEN /hpf (0-5)
[2019-08-03 23:59] LABS: Color, Urine Yellow (Yellow); Glucose, Dipstick Normal (Normal); Ketone-Dipstick Negative (Negative); Leukocyte Esterase-Dipstick Negative /ul (Negative); Nitrite-Dipstick Negative (Negative); Occult Blood-Urine 25 /ul (Negative); Protein-Dipstick Negative (Negative); Urine Bilirubin Dipstick Negative (Negative); Urine Clarity Sl. Cloudy (Clear); Urine Urobilinogen 4 mg/dl (Normal)
[2019-08-04 00:07] LABS: Red Blood Cells-Urine 0-5 SEEN /hpf (0-5)
[2019-08-04 00:27] LABS: Amphetamine Urine VISTA NEGATIVE (<1000 ng/mL); Barbiturate Urine VISTA NEGATIVE (< 200 ng/mL); Benzodiazepine Urine VISTA NEGATIVE (< 200 ng/mL); Cocaine Urine VISTA NEGATIVE (< 300 ng/mL); Ecstacy Urine VISTA NEGATIVE (< 500 ng/mL); Methadone Urine VISTA NEGATIVE (< 300 ng/mL); PCP Urine VISTA NEGATIVE (< 25 ng/mL); THC Urine VISTA NEGATIVE (< 50 ng/mL); Vista UDS pH Range 6
[2019-08-04 01:45] VITALS: RESP 16
[2019-08-04 02:55] VITALS: BP 120/70; PULSE 75; RESP 16; O2SAT 97
[2019-08-04 04:18] VITALS: RESP 18
--- NOTE | 2019-08-04 04:59 | NURSING ---
[facility] DR. PRUITT [phone] [facility]
[2019-08-04 05:41] VITALS: BP 141/88; PULSE 82; RESP 14; O2SAT 94
--- NOTE | 2019-08-04 05:48 | ED.RN ---
Updated guardian, Domenica Marroquin, re: admission and transport.
[2019-08-04 05:52] VITALS: TEMP 36.9
[2019-08-04 06:13] VITALS: BP 141/88; PULSE 82; RESP 14; TEMP 36.9; O2SAT 98
== END 2019-08-04 08:24 ==
PROVIDERS: Emergency Provider Emergency Medicine
DX: F20.9 Schizophrenia, unspecified (principal); R45.851 Suicidal ideations; I10 Essential (primary) hypertension; Z79.899 Other long term (current) drug therapy
CPT/HCPCS: 70450; 80053; 80307; 80320; 81001; 85025; 87635; 93005; 99285; G2023; G0480; U0003; U0004

== ENCOUNTER 2019-11-21 12:01 | Emergency (ER) | payer MEDICARE, MEDICAID, OTHER, SELFPAY ==
[2019-11-21 12:02] VITALS: BP 125/78; PULSE 84; RESP 16; TEMP 36.6; O2SAT 98; BMI 25.3
--- NOTE | 2019-11-21 12:25 | EKG12_ITS ---
Test Reason : Blood Pressure : / mmHG Vent. Rate : 078 BPM Atrial Rate : 078 BPM P-R Int : 186 ms QRS Dur : 094 ms QT Int : 368 ms P-R-T Axes : 049 -21 045 degrees QTc Int : 419 ms Normal sinus rhythm Normal ECG Confirmed by ROSA KAUFFMAN, JASPAL ([id number]), newspaper or periodical editor ALEX QUESADA ([id number]) on 11/25/2019 1:33:44 PM Referred By: Confirmed By:JASPAL LEE MD
--- NOTE | 2019-11-21 12:27 | ED.DCSUM_ITS ---
- ER Visit Summary Date of Service: 11/21/19 Chief Complaint: Dizziness History of Present Illness: The patient is a 69 M presenting with dizziness. Patient states he has a decreased appetite and felt dizzy over the past 2 weeks. He denies chest pain or shortness of breath. Denies fever or cough. His nurse practitioner called and was concerned about increasing delusions. Patient has a history of schizophrenia. He has been refusing to take his medications. He denies alcohol or drug use. Physical Examination: Vitals are stable. Patient is afebrile. Alert no acute distress. HEENT exam is unremarkable. Neck is supple. No meningismus Lungs are clear and equal bilaterally. Heart is regular rate and rhythm. Abdomen is soft nontender nondistended. Extremities are unremarkable. Skin is warm and dry. No focal neurologic deficit. NIH 0. Denies suicidal ideation Remainder of exam is unremarkable. Emergency Department Course and Treatment: EKG is sinus rhythm rate of 78 with no acute ischemic changes. CT head shows chronic changes. CBC, chemistries unremarkable. Urinalysis unremarkable. Troponin is negative. Alcohol and tox are negative. Patient was sent in by his nurse practitioner due to delusions. Patient was evaluated by social work in the emergency department. He does not meet criteria for inpatient psychiatric admission at this time. She also discussed this with his guardian. He continues to deny suicidal or homicidal ideation. He is feeling improved. He will be discharged to follow-up with his primary care physician. Disposition: Discharge home Impression: Dizziness, resolved This note was generated with [employer] dictation software. It may contain incorrect words, spelling, and punctuation that were not noted in review of the chart prior to signing ED Disposition - Plan for ED Patient: [facility] [[facility]] -
[2019-11-21 12:47] LABS: Absolute Lymphocyte Count 2.09 X10^3/uL (0.83-4.51); Absolute Neutrophil Count 5.3 X10^3/uL (2.0-7.7); Basophil# 0.04 X10^3/uL; Basophil% 0.5 % (0-1); Eosinophils% 2.4 % (0-5); Hematocrit 45.2 % (40-54); Lymphocyte # 2.09 X10^3/ul (4.0); Mean Corp Hgb Conc 33.2 g/dL (32-36); Mean Corpuscular Hgb 30.4 pg (27.0-32.0); Mean Corpuscular Volume 91.5 fL (80-94); Mean Platelet Vol. 10.2 fl (6.2-12.0); Monocyte# 0.66 X10^3/uL; Monocyte% 7.9 % (0-10); NRBC Flagged by Analyzer 0 % (0-5); Neutrophil # 5.33 X10^3/uL (2.7-7.7); Neutrophil % 63.7 % (47-70); Platelet Count 238 K/mm3 (150-450); RBC Distribution Width CV 12.2 % (11.6-14.6); RBC Distribution Width SD 40.8 fl (35.1-43.9); Red Blood Count 4.94 M/mm3 (4.6-6.2); White Blood Count 8.4 K/mm3 (4.4-11.0)
--- NOTE | 2019-11-21 12:54 | CT_ITS ---
STUDY: CT BRAIN WITHOUT CONTRAST REASON FOR EXAM: Male, 69 years old. DIZZINESS. HX OF HTN, COPD, DB. SCHIZOPHRENIA, PSYCHOSIS RADIATION DOSAGE (If Supplied By Facility): CTDIvol = ( 44.99 ) mGy, DLP = ( 779.24 ) mGycm TECHNIQUE: Transaxial CT imaging of the brain was performed without administration of intravenous contrast material. Individualized dose optimization techniques were used for this CT. COMPARISON: Comparison is made with prior study dated 08/03/2019. FINDINGS: Normal soft tissue structures. Normal calvarium. There is mild cerebral atrophy with widening of the extra-axial spaces and ventricular dilatation. There are areas of decreased attenuation within the white matter tracts of the supratentorial brain, consistent with microvascular disease changes. Normal basal ganglia and thalami. Normal brainstem. Normal cerebellum. There is no intracranial hemorrhage. There are no findings of an acute ischemic infarction. Atherosclerotic calcification of the cavernous portions of the internal carotid arteries bilaterally. Normal visualized paranasal sinuses. CT/Brain/Head without Contrast IMPRESSION: Chronic involutional changes of the brain. Electronically Signed: Jay Magallanes, at 13:15 EDT , Service support ,
[2019-11-21 13:02] LABS: Anion Gap 4 (5-15); BUN 11 mg/dL (7-18); BUN/Creat Ratio 9.2 RATIO (10-20); Chloride 104 mmol/L (98-107); Creatinine, Serum 1.19 mg/dL (0.70-1.30); EST Glomerular Filtration Rate 64 mL/min (>60); Est Glom Filt Rate - Afr Amer 77 mL/min (>60); Estimated Creatinine Clearance 55.08 ml/min; Glucose 96 mg/dL (74-106); Potassium 4.3 mmol/L (3.5-5.1); Sodium Level 139 mmol/L (136-145)
[2019-11-21 13:21] VITALS: BP 129/93; PULSE 67; RESP 18; O2SAT 99
[2019-11-21 13:24] VITALS: BP 124/82; BP 129/93; PULSE 67; PULSE 70
[2019-11-21 13:25] LABS: Bacteria 0 SEEN /hpf (None Seen); Mucous, Urine 0 SEEN /hpf (<or=2+); Red Blood Cells-Urine 0 SEEN /hpf (0-5); Squamous Epithelial Cells - UA 0 SEEN /hpf (0-5); White Blood Cells 0 SEEN /hpf (0-5)
[2019-11-21 13:35] LABS: Color, Urine Straw (Yellow); Glucose, Dipstick Normal (Normal); Ketone-Dipstick Negative (Negative); Leukocyte Esterase-Dipstick Negative /ul (Negative); Nitrite-Dipstick Negative (Negative); Occult Blood-Urine Negative /ul (Negative); Protein-Dipstick Negative (Negative); Urine Bilirubin Dipstick Negative (Negative); Urine Clarity Clear (Clear); Urine Urobilinogen Normal (Normal)
[2019-11-21 14:06] VITALS: BP 126/73; PULSE 76; RESP 18; O2SAT 99
[2019-11-21 14:12] LABS: Amphetamine Urine VISTA NEGATIVE (<1000 ng/mL); Barbiturate Urine VISTA NEGATIVE (< 200 ng/mL); Benzodiazepine Urine VISTA NEGATIVE (< 200 ng/mL); Cocaine Urine VISTA NEGATIVE (< 300 ng/mL); Ecstacy Urine VISTA NEGATIVE (< 500 ng/mL); Methadone Urine VISTA NEGATIVE (< 300 ng/mL); PCP Urine VISTA NEGATIVE (< 25 ng/mL); THC Urine VISTA NEGATIVE (< 50 ng/mL); Vista UDS pH Range 6
--- NOTE | 2019-11-21 14:20 | CM.ED ---
SOCIAL WORK Reason for Consult: Discharge Planning Informant: Dr. Aguilar Discussed case with Dr. Aguilar. Informed FUND DIRECTOR called in and stated patient refusing to take medications. Patient with history of schizophrenia. Met with patient in room. Patient known to this worker from previous visits. Patient laying calmly in bed. Introduced role and reason for referral. Patient states was not feeling myself. I've been dizzy so just came in to make sure nothing was wrong. Patient denies any suicidal or homicidal ideation. Patient denies any hallucinations or paranoia. Patient stating, I just wanted to get checked out. Just want to get back home. Patient from [facility]. Patient discussed frustrations with COVID-19 pandemic and states just want to get back to normal. Emotional support and active listening provided. Collaboration with Dr. Aguilar. Patient does not meet criteria for inpatient psych. This worker to follow up with patient's legal guardian through [facility], Domenica Marroquin. Call to Domenica ([phone]), no answer, left voicemail with this worker's call back information. Kal Diaz, ELIGIBILITY ANALYST, SHIP MATE
[2019-11-21 15:20] VITALS: BP 126/73; PULSE 70; RESP 18; O2SAT 99
--- NOTE | 2019-11-21 15:27 | CM.ED ---
SOCIAL WORK Call to patient's Legal Guardian, Domenica. Updated on patient's visit and status. Domenica verbalized understanding of patient not meeting criteria for inpatient psych hospitalization. Patient reports has money for a taxi to get home. [place] to set up transport. Call to [facility] to update on patient's discharge. Plan: Home Kal Diaz, ELECTROENCEPHALOGRAPH TECHNICIAN, POWERHOUSE ATTENDANT
--- NOTE | 2019-11-21 15:29 | ED.DEP ---
ED Disposition - Plan for ED Patient: Instructions: ED Dizziness [facility] [[facility]] -
== END 2019-11-21 15:52 | disposition intermediate care facility (04) ==
PROVIDERS: Emergency Provider Emergency Medicine
DX: R42 Dizziness and giddiness (principal); F20.9 Schizophrenia, unspecified; Z79.899 Other long term (current) drug therapy
CPT/HCPCS: 70450; 80048; 80307; 80320; 81001; 84484; 85025; 93005; 99285; A4216; G0480

== ENCOUNTER 2019-12-02 12:56 | Emergency (ER) | payer MEDICARE, MEDICAID, OTHER, SELFPAY ==
[2019-12-02] VITALS (9 sets, daily range): BP systolic 134–144; BP diastolic 71–81; PULSE 75–77; RESP 16–18; TEMP 36.9; O2SAT 97–99; BMI 25.8
--- NOTE | 2019-12-02 14:15 | EKG12_ITS ---
Test Reason : Blood Pressure : / mmHG Vent. Rate : 071 BPM Atrial Rate : 071 BPM P-R Int : 170 ms QRS Dur : 094 ms QT Int : 394 ms P-R-T Axes : 041 -13 047 degrees QTc Int : 428 ms Normal sinus rhythm Incomplete right bundle branch block Borderline ECG Confirmed by JULIO KAUFFMAN, TREE ([id number]), editor greeting card ALEX QUESADA ([id number]) on 12/10/2019 8:57:52 AM Referred By: NILO Confirmed By:PARTH KIM MD
--- NOTE | 2019-12-02 14:15 | CT_ITS ---
STUDY: CT BRAIN WITHOUT CONTRAST REASON FOR EXAM: Male, 69 years old. PT IS HEARING VOICES. RADIATION DOSAGE (If Supplied By Facility): CTDIvol = ( 44.99 ) mGy, DLP = ( 796.11 ) mGycm TECHNIQUE: Transaxial CT imaging of the brain was performed without administration of intravenous contrast material. Individualized dose optimization techniques were used for this CT. COMPARISON: Comparison is made with prior study dated 11/21/2019. FINDINGS: Normal soft tissue structures. Normal calvarium. There is mild cerebral atrophy with widening of the extra-axial spaces and ventricular dilatation. There are areas of decreased attenuation within the white matter tracts of the supratentorial brain, consistent with microvascular disease changes. Normal basal ganglia and thalami. Normal brainstem. Normal cerebellum. There is no intracranial hemorrhage. There are no findings of an acute ischemic infarction. Atherosclerotic calcification of the cavernous portions of the internal carotid arteries bilaterally. Normal visualized paranasal sinuses. CT/Brain/Head without Contrast IMPRESSION: Chronic involutional changes of the brain. Electronically Signed: Jay Magallanes, at 15:44 EDT , Service support ,
--- NOTE | 2019-12-02 14:18 | ED.VISSUMM ---
- ER Visit Summary Date of Service: 12/02/19 Chief Complaint: Auditory hallucinations History of Present Illness: The patient is a 69 M who presents with auditory hallucinations that began today. Patient lives in an extended care facility and staff there reports the patient was pacing up and down the hallways and was talking to his imaginary girlfriend named Chelsie. Staff reports the patient has done this in the past and he escalated and became combative at that time. Staff is concerned that he may do this again. Currently, the patient denies any visual or auditory hallucinations. Patient states he is happy at the extended care facility. She denies any suicidal or homicidal ideations. Physical Examination: Vital signs are stable. Patient is afebrile. Patient is in no acute distress. Oral mucosa is pink and moist. Neck is supple. Trachea is midline. There is no JVD noted. Heart was regular rate and rhythm. Lungs are clear and equal bilaterally. Abdomen is soft. Bowel sounds are normal. There is no tenderness. There is no rebound or guarding noted. Skin is warm dry. Cranial nerves II through XII are intact. There are no focal motor or sensory deficits noted. Extremities are intact. There is no calf tenderness or edema. Patient is calm and cooperative. Patient denies any suicidal homicidal ideations at the present time. Test Results: CBC shows a slight leukocytosis of 11.2. Comprehensive metabolic profile was essentially within normal limits. EKG showed sinus rhythm with a rate of 71. There are no acute ST or T wave changes. CT scan of the brain was obtained. There are chronic changes but no acute intracranial abnormality. Serum alcohol level was obtained and was normal. Urinalysis and urine tox screen were ordered and are pending. Emergency Department Course and Treatment: Patient was calm and cooperative here in the emergency department. Case was discussed with crisis. Bren from crisis was in to evaluate the patient and will attempt to place the patient in a psychiatric facility. She discussed this with the patient's power of managing attorney who is agreeable with the plan. All questions were answered. Disposition: Transfer to psychiatric facility Impression: 1. Auditory hallucinations 2. History of schizophrenia This note was generated with [employer] software. It may contain incorrect words, spelling, and punctuation that were not noted in review of the chart prior to signing ED Disposition - Plan for ED Patient: Disposition: Psychiatric Hospital or Unit Diagnosis: Auditory hallucinations, Schizophrenia [facility] [[facility] Provider] -
--- NOTE | 2019-12-02 14:40 | CM.ED ---
SOCIAL WORK Discussed case with nurse at [facility] with Crisis. Patient has already been assessed by Crisis and Crisis recommending placement. Dr. Russell and staff sabra. Kal Diaz, CREAM DIPPER, CHARGE ACCOUNT IDENTIFICATION CLERK
[2019-12-02 15:14] LABS: Absolute Lymphocyte Count 2.09 X10^3/uL (0.83-4.51); Absolute Neutrophil Count 8.2 X10^3/uL (2.0-7.7); Basophil# 0.03 X10^3/uL; Basophil% 0.3 % (0-1); Eosinophil# 0.13 X10^3/uL; Eosinophils% 1.2 % (0-5); Hematocrit 46.5 % (40-54); Hemoglobin 15.2 g/dL (13.0-16.5); Lymphocyte # 2.09 X10^3/ul (4.0); Lymphocyte % 18.7 % (19-41); Mean Corp Hgb Conc 32.7 g/dL (32-36); Mean Corpuscular Volume 91.9 fL (80-94); Mean Platelet Vol. 10.2 fl (6.2-12.0); Monocyte# 0.73 X10^3/uL; Monocyte% 6.5 % (0-10); NRBC Flagged by Analyzer 0 % (0-5); Neutrophil # 8.16 X10^3/uL (2.7-7.7); Neutrophil % 72.9 % (47-70); Platelet Count 228 K/mm3 (150-450); RBC Distribution Width CV 12.4 % (11.6-14.6); RBC Distribution Width SD 41.9 fl (35.1-43.9); Red Blood Count 5.06 M/mm3 (4.6-6.2); White Blood Count 11.2 K/mm3 (4.4-11.0)
[2019-12-02 15:28] LABS: AST(SGOT) 8 U/L (15-37); Alanine Aminotransfer ALT/SGPT 13 U/L (16-61); Albumin, Serum 3.8 g/dL (3.2-5.0); Alkaline Phosphatase 66 U/L (45-117); Anion Gap 5 (5-15); BUN 17 mg/dL (7-18); BUN/Creat Ratio 13.3 RATIO (10-20); Calcium,Total 8.9 mg/dL (8.5-10.1); Chloride 106 mmol/L (98-107); Creatinine, Serum 1.28 mg/dL (0.70-1.30); EST Glomerular Filtration Rate 59 mL/min (>60); Est Glom Filt Rate - Afr Amer 71 mL/min (>60); Estimated Creatinine Clearance 51.21 ml/min; Globulin 3.8 g/dL (2.2-4.2); Glucose 112 mg/dL (74-106); Potassium 4.1 mmol/L (3.5-5.1); Protein, Total 7.6 g/dL (6.4-8.2); Sodium Level 138 mmol/L (136-145)
[2019-12-02 15:57] LABS: Alcohol, Blood (Medical)-Serum < 3.0 mg/dL
[2019-12-02 18:36] LABS: Bacteria 0 SEEN /hpf (None Seen); Mucous, Urine 0 SEEN /hpf (<or=2+); Squamous Epithelial Cells - UA 0 SEEN /hpf (0-5); White Blood Cells 0 SEEN /hpf (0-5)
[2019-12-02 18:40] LABS: Glucose, Dipstick Normal (Normal); Ketone-Dipstick Negative (Negative); Leukocyte Esterase-Dipstick Negative /ul (Negative); Nitrite-Dipstick Negative (Negative); Occult Blood-Urine 10 /ul (Negative); Protein-Dipstick Negative (Negative); Urine Bilirubin Dipstick Negative (Negative); Urine Urobilinogen Normal (Normal)
[2019-12-02 18:43] LABS: Color, Urine Yellow (Yellow); Urine Clarity Clear (Clear)
[2019-12-02 18:46] LABS: Red Blood Cells-Urine 0-5 SEEN /hpf (0-5)
[2019-12-02 18:59] LABS: Amphetamine Urine VISTA NEGATIVE (<1000 ng/mL); Barbiturate Urine VISTA NEGATIVE (< 200 ng/mL); Benzodiazepine Urine VISTA NEGATIVE (< 200 ng/mL); Cocaine Urine VISTA NEGATIVE (< 300 ng/mL); Ecstacy Urine VISTA NEGATIVE (< 500 ng/mL); Methadone Urine VISTA NEGATIVE (< 300 ng/mL); PCP Urine VISTA NEGATIVE (< 25 ng/mL); THC Urine VISTA NEGATIVE (< 50 ng/mL); Vista UDS pH Range 6
--- NOTE | 2019-12-02 19:00 | CM.ED ---
SOCIAL WORK Patient standing at door requesting to speak with this worker. Patient wanting update. Informed patient Crisis is working on placement for patient. Patient states, Can't I just go home. Things just got bad, they were all after me. I have been having a lot of problems lately with my fiance who lives with me. I love her very much, just having a lot of problems. Patient with history of auditory and visual hallucinations of girlfriend, Chelsie. Per [facility] and Crisis, patient does not have a girlfriend living with him. Per Bren with Crisis, staff has mentioned onset of dementia. Crisis following for placement. Kal Diaz, CARDIOVASCULAR TECH, TOXICOLOGIST
--- NOTE | 2019-12-02 19:56 | CM.ED ---
SOCIAL WORK Spoke with Sarah from Crisis. Per Sarah, referral has been faxed to [facility]. Pending review. Tox screen faxed.
--- NOTE | 2019-12-02 20:30 | CM.ED ---
SOCIAL WORK Call from [facility] with Crisis requesting COVID test for patient for placement. Referral pending at [facility]. Dr. Mac and staff sabra. Kal Diaz, DENTAL CHAIRSIDE ASSISTANT, CAMPAIGN MARKETING SPECIALIST
[2019-12-03] VITALS (8 sets, daily range): BP systolic 126; BP diastolic 78; PULSE 85; RESP 15–18; TEMP 36.6; O2SAT 95
--- NOTE | 2019-12-03 00:28 | ED.RN ---
[facility] DECLINES PATIENT DUE TO HIGH ACUITY AT THEIR FACILITY. THIS RN CONTACTED [facility] TO NOTIFY THEM HE WAS DECLINED
--- NOTE | 2019-12-03 12:46 | CM.ED ---
Patient discharged to [facility]
== END 2019-12-03 09:06 ==
PROVIDERS: Emergency Medicine; Emergency Provider Emergency Medicine
DX: R44.0 Auditory hallucinations (principal); Z79.899 Other long term (current) drug therapy; Z86.59 Personal history of other mental and behavioral disorders
CPT/HCPCS: 70450; 80053; 80307; 80320; 81001; 85025; 87635; 93005; 99285; G0480; U0003

== ENCOUNTER 2020-01-15 11:21 | Emergency (ER) | payer MEDICARE, MEDICAID, OTHER, SELFPAY ==
[2019-12-02 12:59] VITALS: BMI 25.8
[2020-01-15] VITALS (9 sets, daily range): BP systolic 125–140; BP diastolic 72–85; PULSE 75–87; RESP 15–20; TEMP 37; O2SAT 95–98; BMI 25.4
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
[2020-01-15 12:26] LABS: Bacteria 0 SEEN /hpf (None Seen); Mucous, Urine 0 SEEN /hpf (<or=2+); Red Blood Cells-Urine 0 SEEN /hpf (0-5); Squamous Epithelial Cells - UA 0 SEEN /hpf (0-5); White Blood Cells 0 SEEN /hpf (0-5)
[2020-01-15 12:29] LABS: Color, Urine Yellow (Yellow); Glucose, Dipstick Normal (Normal); Ketone-Dipstick Negative (Negative); Leukocyte Esterase-Dipstick Negative /ul (Negative); Nitrite-Dipstick Negative (Negative); Occult Blood-Urine Negative /ul (Negative); Protein-Dipstick Negative (Negative); Urine Bilirubin Dipstick Negative (Negative); Urine Clarity Clear (Clear); Urine Urobilinogen Normal (Normal)
[2020-01-15 12:32] LABS: Absolute Lymphocyte Count 2.02 X10^3/uL (0.83-4.51); Absolute Neutrophil Count 6.1 X10^3/uL (2.0-7.7); Basophil# 0.04 X10^3/uL; Basophil% 0.4 % (0-1); Eosinophil# 0.18 X10^3/uL; Hematocrit 44.6 % (40-54); Hemoglobin 14.4 g/dL (13.0-16.5); Lymphocyte # 2.02 X10^3/ul (4.0); Lymphocyte % 22.4 % (19-41); Mean Corp Hgb Conc 32.3 g/dL (32-36); Mean Corpuscular Hgb 30.5 pg (27.0-32.0); Mean Corpuscular Volume 94.5 fL (80-94); Mean Platelet Vol. 10.1 fl (6.2-12.0); Monocyte# 0.59 X10^3/uL; Monocyte% 6.6 % (0-10); NRBC Flagged by Analyzer 0 % (0-5); Neutrophil # 6.11 X10^3/uL (2.7-7.7); Neutrophil % 67.9 % (47-70); Platelet Count 221 K/mm3 (150-450); RBC Distribution Width CV 12.8 % (11.6-14.6); Red Blood Count 4.72 M/mm3 (4.6-6.2)
--- NOTE | 2020-01-15 12:39 | EKG12_ITS ---
Test Reason : MENTAL HEALTH Blood Pressure : / mmHG Vent. Rate : 073 BPM Atrial Rate : 073 BPM P-R Int : 174 ms QRS Dur : 092 ms QT Int : 366 ms P-R-T Axes : 062 -30 040 degrees QTc Int : 403 ms Normal sinus rhythm Left axis deviation Abnormal ECG Confirmed by HERIBERTO KAUFFMAN, JORGE ([id number]), department editor ALEX QUESADA ([id number]) on 01/17/2020 11:02:36 AM Referred By: MIKAELA Confirmed By:JORGE LOUIS MD
[2020-01-15 12:45] LABS: Amphetamine Urine VISTA NEGATIVE (<1000 ng/mL); Barbiturate Urine VISTA NEGATIVE (< 200 ng/mL); Benzodiazepine Urine VISTA NEGATIVE (< 200 ng/mL); Cocaine Urine VISTA NEGATIVE (< 300 ng/mL); Ecstacy Urine VISTA NEGATIVE (< 500 ng/mL); Methadone Urine VISTA NEGATIVE (< 300 ng/mL); PCP Urine VISTA NEGATIVE (< 25 ng/mL); THC Urine VISTA NEGATIVE (< 50 ng/mL); Vista UDS pH Range 7
[2020-01-15 12:46] LABS: ALB/GLOB Ratio 0.9 RATIO (0.9-2.4); AST(SGOT) 13 U/L (15-37); Alanine Aminotransfer ALT/SGPT 17 U/L (16-61); Albumin, Serum 3.4 g/dL (3.2-5.0); Alkaline Phosphatase 72 U/L (45-117); Anion Gap 2 (5-15); BUN 21 mg/dL (7-18); BUN/Creat Ratio 19.4 RATIO (10-20); Calcium,Total 8.6 mg/dL (8.5-10.1); Chloride 105 mmol/L (98-107); Creatinine, Serum 1.08 mg/dL (0.70-1.30); EST Glomerular Filtration Rate 72 mL/min (>60); Est Glom Filt Rate - Afr Amer 87 mL/min (>60); Estimated Creatinine Clearance 60.69 ml/min; Globulin 3.6 g/dL (2.2-4.2); Glucose 106 mg/dL (74-106); Potassium 4.7 mmol/L (3.5-5.1); Sodium Level 138 mmol/L (136-145)
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
[2020-01-15 13:18] LABS: Alcohol, Blood (Medical)-Serum < 3.0 mg/dL
--- NOTE | 2020-01-15 13:22 | CM.ED ---
SOCIAL WORK Received call from Janet Prieto ( ) with [facility]. Per Janet, PASSR has been approved for [facility] after patient has been stabilized at psychiatric hospital. Janet requesting this worker pass along information to accepting hospital. Kal Diaz, CAR SHIFTER, ANIMAL RIDES MANAGER
--- NOTE | 2020-01-15 14:37 | CM.ED ---
SOCIAL WORK Per Dr. Hermosillo, patient is medically cleared. Referral called and faxed to [facility]. Pending review at this time. Kal Diaz, TRAFFIC SERGEANT, AUDITOR
--- NOTE | 2020-01-15 15:48 | CM.ED ---
SOCIAL WORK Call to [facility] to inquire about referral, spoke with Serene. Per Serene, still reviewing referral at this time. All questions answered. Serene to call this worker back. Kal Diaz, CAMPUS AMBASSADOR, MARKETING ANALYTICS SPECIALIST
--- NOTE | 2020-01-15 16:28 | CM.ED ---
SOCIAL WORK Call from [facility]. Unable to accommodate patient due to concerns with patient's safety on unit. Call to [facility] to discuss referral. rodent control worker states no [facility] beds available. Call to [facility]. Referral reviewed with Carlo. Carlo reports does have beds available and will review referral. Referral faxed at this time. Kal Diaz, ADMINISTRATION DEAN, CUSTOM FRAMING SPECIALIST
--- NOTE | 2020-01-15 19:39 | CM.ED ---
SOCIAL WORK Call from Carlo with [facility]. Patient accepted by Dr. Celestin. Patient to go to room 202 bed 2. Nurse to call report to [phone]. Binder Technician to set up transport. Patient and patient's legal guardian, Domenicacaity Diaz, SLICE PLUG CUTTER OPERATOR HELPER, HOLLOW CORE DOOR FRAME ASSEMBLER
== END 2020-01-15 21:21 ==
LOC: ED 12:04
PROVIDERS: Emergency Provider Emergency Medicine
DX: F20.9 Schizophrenia, unspecified (principal); E11.9 Type 2 diabetes mellitus without complications; I10 Essential (primary) hypertension; Z20.828 Contact with and (suspected) exposure to other viral communicable diseases; Z79.899 Other long term (current) drug therapy
CPT/HCPCS: 80053; 80307; 80320; 81001; 85025; 87635; 93005; 99285; G0480; U0002

== ENCOUNTER 2022-07-04 02:32 | Inpatient (IN) | payer MEDICARE, MEDICAID, SELFPAY ==
[2022-07-04] VITALS (26 sets, daily range): BP systolic 88–138; BP diastolic 56–88; PULSE 105–122; RESP 13–25; TEMP 36.4–37.2; O2SAT 89–98; BMI 23.7; BMI 22.5
--- NOTE | 2022-07-04 02:46 | RAD_ITS ---
EXAM: XR CHEST, 1 VIEW CLINICAL INDICATION: covid TECHNIQUE: Frontal view of the chest. COMPARISON: No relevant prior studies available. FINDINGS: LUNGS AND PLEURAL SPACES: Unremarkable. No consolidation or edema. No pneumothorax. No effusion. HEART: Unremarkable. Cardiac silhouette not enlarged. MEDIASTINUM: Central airways and mediastinal contour are unremarkable. BONES/JOINTS: Unremarkable. SOFT TISSUES: Unremarkable. RAD/Chest 1 View (Portable) IMPRESSION: No radiographic evidence of acute cardiopulmonary disease. Electronically Signed: Luis Carlos Epperson MD at 3:32 EDT ,
--- NOTE | 2022-07-04 02:52 | ED.VIS.FALL ---
HPI HPI - Fall History of Present Illness Chief Complaint: Fall Detail of Chief Complaint: Left eyebrow laceration. Informant: patient and EMS Occured/Mechanism Occurred: Today and Hours Mechanism/Context: Yes same level fall Usually ambulates: Without assistance Pain/Injury Location: Left eyebrow laceration. Pain Location: head Current Severity: Mild Maximum Severity: Mild Associated Symptoms Associated Symptoms: Negative for Parasthesias, Weakness, Loss of function, Inability to ambulate, Loss of consciousness or Amnesia Narrative Narrative: 71-year-old male presents from an local extended care facility. Recently has had COVID. Presents tonight after he fell in the halfway causing a laceration on his left eyebrow. However he also presents hypotensive. Reportedly recently had COVID. He denies any vomiting or diarrhea. There is no present with him. Tetanus Immunization: Unknown Prior similar symptoms: No Recent Illness/Hospitalization: No PFSH [facility] Medical History Benign prostatic hyperplasia without lower urinary tract symptoms Delusional disorders Depression Diabetes Diabetic myelopathy due to secondary diabetes mellitus Drug induced subacute dyskinesia Hypothyroidism Neoplasm of uncertain behavior of right kidney Unspecified dementia, unspecified severity, without behavioral disturbance, psychotic disturbance, mood disturbance, and anxiety Home Medications amlodipine 10 mg tablet 10 mg PO QHS BP 07/30/17 [History Last Taken 07/11/19] levothyroxine 25 mcg tablet 50 mcg PO DAILY THYROID 07/30/17 [History Last Taken 07/11/19] tamsulosin 0.4 mg capsule 0.4 mg PO QHS PROSTATE 07/30/17 [History Last Taken 07/11/19] atorvastatin 10 mg tablet 10 mg PO QHS 07/04/22 [History Last Taken Unknown] cholecalciferol (vitamin D3) 125 mcg (5,000 unit) tablet (Vitamin D3) 125 mcg PO DAILY 07/04/22 [History Last Taken Unknown] clozapine 100 mg tablet 100 mg PO DAILY 07/04/22 [History Last Taken Unknown] clozapine 200 mg tablet 200 mg PO QHS 07/04/22 [History Last Taken Unknown] fluoxetine 10 mg capsule (Prozac) 10 mg PO DAILY 07/04/22 [History Last Taken Unknown] ipratropium 0.5 mg-albuterol 3 mg (2.5 mg base)/3 mL nebulization soln 3 ml inhalation Q4H PRN PRN Wheezing 07/04/22 [History Last Taken Unknown] omeprazole 20 mg capsule,delayed release 20 mg PO DAILY 07/04/22 [History Last Taken Unknown] Allergy/AdvReac Type Severity Reaction Status Date / Time No Known Allergies Allergy Verified 07/28/19 19:39 Social History Smoking Status: Never smoker ROS ROS ED ROS Narrative Denies recent illness. Limited informant due to dementia. Review of Systems ROS Unobtainable: due to mental status Constitutional Constitutional ED: Denies fever(s) Eyes Eyes: Denies blurry vision ENT ENT ED: Denies ear pain Cardiovascular Cardiovascular: Denies chest pain Respiratory/Chest Respiratory/Chest: Denies cough or dyspnea Gastrointestinal Gastrointestinal: Denies abdominal pain, constipation, diarrhea, melena, nausea or vomiting Genitourinary Genitourinary ED: Denies dysuria Musculoskeletal Musculoskeletal: Denies arthralgias Integumentary Denies abscess Neurologic Neurologic: Denies headache(s) Psychiatric Psychiatric: Denies anxiety Endocrine Endocrinology: Denies polydipsia Hematologic/Lymphatic Hematologic/Lymphatic: Denies easy bleeding Allergic/Immunologic Allergic/Immunologic ED: Denies mouth swelling or tongue swelling EXAM Physical Exam Narrative Exam Narrative: 71-year-old male lying in bed. Blood pressure is 88/59. Pulse ox 93% on room air. He is afebrile. Heart rate 119. H EENT exam is laceration left eyebrow small amount of bleeding. No significant swelling. Pupils round reactive light. Scalp nontender no hematoma lacerations. C-spine and trachea nontender. Lungs are clear. Heart tachycardic rate about 115 no murmur. Chest wall and ribs nontender. Abdomen soft, nontender, nondistended, normal bowel sounds, no peritoneal signs. No signs of abdominal wall trauma. Pelvic girdle intact. Moving all 4 extremities. Normal molecular pathologist strength. Normal dorsi plantarflexion. Normal range of motion is lower and upper extremities. Nontender. No deformity. Back nontender. Neurologically he is awake. He is answering questions following commands. He knows he is in the hospital. Const Vital Signs: 07/04/22 02:33 07/04/22 02:36 07/04/22 02:58 Temperature 98.9 F Temperature Source Temporal Pulse Rate 119 H Respiratory Rate 20 H Respiratory Effort Normal Respiratory Depth Normal Respiratory Pattern Normal Blood Pressure 88/59 L Blood Pressure Mean 68 Pulse Ox 93 93 Oxygen Delivery Method Room Air Room Air Room Air 07/04/22 02:53 07/04/22 05:02 Temperature 97.8 F 98.1 F Temperature Source Temporal Oral Pulse Rate 122 H 111 H Respiratory Rate 20 H 16 Respiratory Effort Respiratory Depth Respiratory Pattern Blood Pressure 91/56 L 138/71 H Blood Pressure Mean 67 93 Pulse Ox 93 98 Oxygen Delivery Method Room Air Room Air Positive well nourished and well developed; Negative for obese, cachectic, contractures or unkempt General Appearance ED: well developed and NAD; Negative for unkempt, cachectic or contractures Nutritional Appearance: Negative for cachectic or obese HEENT Reports normocephalic HEENT Narrative: Left eyebrow laceration trauma and tenderness; Negative for atraumatic or hematoma Eyes PERRL and EOMs intact bilaterally General Eye ED: Negative for pale conjunctiva or scleral icterus Neck full ROM, no lymphadenopathy and supple General: Negative for tenderness Chest Wall inspection of chest normal and palpation of chest normal Chest: Negative for other Resp normal respiratory effort, no retractions and clear to auscultation bilaterally Effort and Inspection: Negative for pain with movement Auscultation: Negative for rales, rhonchi or wheezes Cardio regular rhythm, S1 normal heart sound, S2 normal heart sound and no murmurs; Negative for regular rate Rate: tachycardic Rhythm: Negative for abnormal rhythm Bruits: Negative for other GI non-tender, non-distended and no masses Inspection: Negative for abdominal distention Auscultation: normoactive bowel sounds Palpation: soft; Negative for guarding or rebound tenderness present Back/Spine no CVA tenderness General Back: Negative for CVA tenderness Cervical Spine: Negative for cervical spine tenderness Thoracic Spine / Upper Back: Negative for pain with ROM Lumbar Spine / Lower Back: Negative for lumbar spinal tenderness Neuro No oriented x3, moves all extremities and no focal motor deficits [place] Coma Scale: document GCS findings Spontaneous Obeys Commands Confused 14 Sensorium / Orientation: alert, oriented to person, oriented to place and confused; Negative for oriented to time, orientation impaired, lethargic or stuporous Motor Exam: strength 5/5 throughout Psych mental status grossly normal and thought process normal Appearance: Negative for unkempt Attitude: No agitated Mood & Affect: Negative for depressed, anxious or tearful Skin General Skin Exam: Negative for other Lesions: no lesions Rashes: no rashes Trauma: laceration linear; Negative for abrasion MDM MDM MDM Narrative Medical decision making narrative: 71-year-old demented gentleman from a halfway and presents with a fall with a left eyebrow laceration which will need to be repaired. Tetanus will be updated. However he is also hypotensive and tachycardic. Undergo a septic protocol work-up. Will be treated with a liter normal saline. Patient had a large amount of diarrhea was all watery in the emergency department. Nurses cleaned him up. His pressure is improving with a liter normal saline his current blood pressure is 115 systolic. Given his elevated white count and acute kidney injury he will be admitted for further evaluation. I will speak to the hospitalist. Patient be started on IV antibiotics Rocephin and Flagyl. We will get a second liter normal saline. Will be admitted to the ICU. While in the emergency department patient had diarrhea and vomiting. The vomiting looks like brown debris possibly gastric contents versus even stool. He developed diffuse abdominal discomfort so a CAT scan is also being obtained of his abdomen. History & Record Review Discussion w/independent historian: EMS personnel and Patient Additional record(s) reviewed:: Prior inpatient record, Prior outpatient record, Prior ED visit, Prior labs and No prior records Lab Data Attestation: I reviewed the patient's lab results. Lab results narrative: CBC shows a white count of 24,000. H&H of 15 and 49. Platelets 356. PT/INR and PTT unremarkable at 12, 1 and 23. Electrolytes show a gap of 9. BUN 23 creatinine 1.91. Liver enzymes are unremarkable. Lactic acid elevated 2.9. Urinalysis is negative. Chest x-ray is unremarkable. Labs: Laboratory Results - last 24 hr 07/04/22 07/04/22 07/04/22 02:40 02:40 02:40 WBC 24.4 H RBC 5.39 Hgb 15.9 Hct 49.5 MCV 91.8 MCH 29.5 MCHC 32.1 RDW Std Deviation 42.8 RDW Coeff of Kirk 12.8 Plt Count 356 MPV 10.7 Immature Gran % (Auto) 1.300 H Neut % (Auto) 91.2 H Lymph % (Auto) 3.6 L [place] % (Auto) 3.7 Eos % (Auto) 0.0 Baso % (Auto) 0.2 Absolute Neuts (auto) 22.2 H Absolute Lymphs (auto) 0.87 Nucleated RBC % 0 PT 12.8 INR 1.0 APTT 23.7 L Sodium 140 Potassium 4.6 Chloride 104 Carbon Dioxide 27.0 Anion Gap 9 BUN 23 H Creatinine 1.91 H Estim Creat Clear Calc 34.45 Est GFR (MDRD) Af Amer 45 L Est GFR (MDRD) Non-Af 37 L BUN/Creatinine Ratio 12.0 Glucose 212 H Lactic Acid Calcium 9.7 Total Bilirubin 0.60 AST 13 L ALT 20 Alkaline Phosphatase 75 Troponin I High Sens 6 Total Protein 7.5 Albumin 3.6 Globulin 3.9 Albumin/Globulin Ratio 0.9 Urine Color Urine Clarity Urine pH Ur Specific [place] Urine Protein Urine Glucose (UA) Urine Ketones Urine Occult Blood Urine Nitrite Urine Bilirubin Urine Urobilinogen Ur Leukocyte Esterase Urine RBC Urine WBC Ur Squamous Epith Cells Urine Bacteria Hyaline Casts Urine Mucus 07/04/22 07/04/22 02:40 03:08 WBC RBC Hgb Hct MCV MCH MCHC RDW Std Deviation RDW Coeff of Kirk Plt Count MPV Immature Gran % (Auto) Neut % (Auto) Lymph % (Auto) [place] % (Auto) Eos % (Auto) Baso % (Auto) Absolute Neuts (auto) Absolute Lymphs (auto) Nucleated RBC % PT INR APTT Sodium Potassium Chloride Carbon Dioxide Anion Gap BUN Creatinine Estim Creat Clear Calc Est GFR (MDRD) Af Amer Est GFR (MDRD) Non-Af BUN/Creatinine Ratio Glucose Lactic Acid 2.9 H* Calcium Total Bilirubin AST ALT Alkaline Phosphatase Troponin I High Sens Total Protein Albumin Globulin Albumin/Globulin Ratio Urine Color Yellow Urine Clarity Clear Urine pH 5.0 Ur Specific [place] 1.015 Urine Protein 15 H Urine Glucose (UA) Normal Urine Ketones Negative Urine Occult Blood Negative Urine Nitrite Negative Urine Bilirubin Negative Urine Urobilinogen 1 H Ur Leukocyte Esterase Negative Urine RBC 0 SEEN Urine WBC 0-5 SEEN Ur Squamous Epith Cells 0 SEEN Urine Bacteria 1+ Hyaline Casts 0-5 SEEN Urine Mucus 0 SEEN Radiography Chest X-Ray - ED: 1 View, Read by ED Physician, Read by Radiologist, Heart, Lungs, Mediastinum, Bony Structures, No Acute Disease and Chronic Changes Diagnostic Testing: Clinical Impression(s) from Imaging Studies Chest X-Ray 07/04/22 02:46 IMPRESSION: No radiographic evidence of acute cardiopulmonary disease. Electronically Signed: Luis Carlos Epperson MD at 3:32 EDT , Chest x-ray, portable, single view, interpreted by myself and the radiologist shows no acute abnormality. Normal cardiac silhouette. Normal lung [place]. No infiltrates. Rhythm Strip Rhythm Strip: Sinus Tach Rate: 122 Ectopy: None EKG Initial EKG: Attestation: I personally reviewed and interpreted this EKG as follows: Interpretation: No Acute Injury Pattern and Sinus Tachycardia Comments: Sinus tachycardia rate of 122. No acute signs of PR or ischemia. No acute signs of dysrhythmia. Procedures Lacerations Left eyebrow 2 cm laceration repair:: Length: 1 in Depth: Sub Q Shape: Linear Prep: Shure-Clens Laceration repair: Lidocaine and Skin sutures Number of Sutures/Eola: 3 Suture Information: Ethilon and 5-0 Comment: Left eyebrow laceration. Approximately 1 inch in length. Linear. Locally anesthetized with lidocaine. Cleaned with Shur-Clens. Washed with saline. Explored. Closed using 3 simple interrupted 5-0 Ethilon sutures. Proper hemostasis wound closure is obtained. Critical Care Time Critical Care Time: Yes Critical care time (excluding procedures): 30-74 minutes, Including time spent:, Discussing w/Patient &/or Family/Training Executive, Discussing w/Consultants, Arranging Admission or Transfer, Performing Direct Patient Care at Bedside and - (34 min) Discharge Plan Dx/Rx/DC Orders Clinical Impression: Fall, Head injury, Laceration of eyebrow, left, Acute hypotension, Leukocytosis, Diarrhea, COVID, Sepsis associated hypotension, Acute kidney injury Disposition Disposition: [facility]
[2022-07-04] MEDS: 0.9% Normal Saline 1,000 ML 999 ML IV ×2 (02:59→05:00)
[2022-07-04 03:04] LABS: Absolute Lymphocyte Count 0.87 X10^3/uL (0.83-4.51); Absolute Neutrophil Count 22.2 X10^3/uL (2.0-7.7); Basophil# 0.06 X10^3/uL; Basophil% 0.2 % (0-1); Hematocrit 49.5 % (40-54); Hemoglobin 15.9 g/dL (13.0-16.5); Lymphocyte # 0.87 X10^3/ul (0.83-4.51); Lymphocyte % 3.6 % (19-41); Mean Corp Hgb Conc 32.1 g/dL (32-36); Mean Corpuscular Hgb 29.5 pg (27.0-32.0); Mean Corpuscular Volume 91.8 fL (80-94); Mean Platelet Vol. 10.7 fl (6.2-12.0); Monocyte# 0.91 X10^3/uL; Monocyte% 3.7 % (0-10); NRBC Flagged by Analyzer 0 % (0-5); Neutrophil % 91.2 % (47-70); POSITIVE DIFFERENTIAL YES; Platelet Count 356 K/mm3 (150-450); RBC Distribution Width CV 12.8 % (11.6-14.6); RBC Distribution Width SD 42.8 fl (35.1-43.9); Red Blood Count 5.39 M/mm3 (4.6-6.2); White Blood Count 24.4 K/mm3 (4.4-11.0)
[2022-07-04 03:07] LABS: Differential Indicated SCAN CRITERIA MET
[2022-07-04 03:13] LABS: Mucous, Urine 0 SEEN /hpf (<or=2+); Red Blood Cells-Urine 0 SEEN /hpf (0-5); Squamous Epithelial Cells - UA 0 SEEN /hpf (0-5)
[2022-07-04 03:18] LABS: Partial Thromboplast Time 23.7 Seconds (24.1-36.2); Prothrombin Time (Protime)PT. 12.8 SECONDS (11.7-14.9)
[2022-07-04 03:18] LABS: Color, Urine Yellow (Yellow); Glucose, Dipstick Normal (Normal); Ketone-Dipstick Negative (Negative); Leukocyte Esterase-Dipstick Negative /ul (Negative); Nitrite-Dipstick Negative (Negative); Occult Blood-Urine Negative /ul (Negative); Protein-Dipstick 15 mg/dl (Negative); Specific Gravity, Urine 1.015 (1.002-1.030); Urine Bilirubin Dipstick Negative (Negative); Urine Clarity Clear (Clear); Urine Urobilinogen 1 mg/dl (Normal)
[2022-07-04 03:24] LABS: ALB/GLOB Ratio 0.9 RATIO (0.9-2.4); AST(SGOT) 13 U/L (15-37); Alanine Aminotransfer ALT/SGPT 20 U/L (16-61); Albumin, Serum 3.6 g/dL (3.2-5.0); Alkaline Phosphatase 75 U/L (45-117); Anion Gap 9 (5-15); BUN 23 mg/dL (7-18); Calcium,Total 9.7 mg/dL (8.5-10.1); Chloride 104 mmol/L (98-107); Creatinine, Serum 1.91 mg/dL (0.70-1.30); EST Glomerular Filtration Rate 37 mL/min (>60); Est Glom Filt Rate - Afr Amer 45 mL/min (>60); Estimated Creatinine Clearance 34.45 ml/min; Globulin 3.9 g/dL (2.2-4.2); Glucose 212 mg/dL (74-106); Potassium 4.6 mmol/L (3.5-5.1); Protein, Total 7.5 g/dL (6.4-8.2); Sodium Level 140 mmol/L (136-145); Troponin-I HS 6 pg/mL (3.0-78.0)
[2022-07-04] MEDS: Lidocaine 1% (20 ml mdv) 20 ML Vial 10 ML INFILT (03:26)
[2022-07-04 03:29] LABS: Lactic Acid 2.9 mmol/L (0.4-1.9)
[2022-07-04 03:43] LABS: Bacteria 1+ /hpf (None Seen); Hyaline Cast 0-5 SEEN /lpf (0-5); White Blood Cells 0-5 SEEN /hpf (0-5)
--- NOTE | 2022-07-04 04:36 | PCM.HP.STD ---
HPI - General General Date of Admission: 07/04/22 Date of Service: 07/04/22 Chief Complaint: Fall HPI Narrative ALLAN LARA, is a 71 M with a significant history of Schizoaffective disorder; delusional disorder; hypothyroidism; hypertension; and neoplasm of right kidney who presents from [facility] with a fall. Also patient sustained laceration of his left eyelid. At the emergency department patient was noted to have loose runny stools. He reported that he has had diarrhea for about 1 week. Patient admits to abdominal pain. Also reportedly a day before presentation patient was diagnosed with COVID. History is limited as patient does not provide answers to all questions. History was taken for emergency department doctor who discussed the case primarily with [facility]. [facility] Medical History (Updated 07/04/22 @ 05:[address] 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 Hypertension Hypothyroidism Neoplasm of uncertain behavior of right kidney Unspecified dementia, unspecified severity, without behavioral disturbance, psychotic disturbance, mood disturbance, and anxiety Home Medications amlodipine 10 mg tablet 10 mg PO QHS BP 07/30/17 [History Last Taken 07/11/19] levothyroxine 25 mcg tablet 50 mcg PO DAILY THYROID 07/30/17 [History Last Taken 07/11/19] tamsulosin 0.4 mg capsule 0.4 mg PO QHS PROSTATE 07/30/17 [History Last Taken 07/11/19] atorvastatin 10 mg tablet 10 mg PO QHS 07/04/22 [History Last Taken Unknown] cholecalciferol (vitamin D3) 125 mcg (5,000 unit) tablet (Vitamin D3) 125 mcg PO DAILY 07/04/22 [History Last Taken Unknown] clozapine 100 mg tablet 100 mg PO DAILY 07/04/22 [History Last Taken Unknown] clozapine 200 mg tablet 200 mg PO QHS 07/04/22 [History Last Taken Unknown] fluoxetine 10 mg capsule (Prozac) 10 mg PO DAILY 07/04/22 [History Last Taken Unknown] ipratropium 0.5 mg-albuterol 3 mg (2.5 mg base)/3 mL nebulization soln 3 ml inhalation Q4H PRN PRN Wheezing 07/04/22 [History Last Taken Unknown] omeprazole 20 mg capsule,delayed release 20 mg PO DAILY 07/04/22 [History Last Taken Unknown] Allergy/AdvReac Type Severity Reaction Status Date / Time No Known Allergies Allergy Verified 07/28/19 19:39 unable to obtain (Patient is unable to provide answers) unable to obtain (Patient is unable to provide answers.) Social History Smoking Status: Never smoker ROS Review of Systems ROS Unobtainable: other Details: Due to psychiatry disorder Vital Signs Vital Signs Vital Signs: 07/04/22 02:33 07/04/22 02:36 07/04/22 02:58 Temperature 98.9 F Temperature Source Temporal Pulse Rate 119 H Respiratory Rate 20 H Respiratory Effort Normal Respiratory Depth Normal Respiratory Pattern Normal Blood Pressure 88/59 L Blood Pressure Mean 68 Pulse Ox 93 93 Oxygen Delivery Method Room Air Room Air Room Air 07/04/22 02:53 Temperature 97.8 F Temperature Source Temporal Pulse Rate 122 H Respiratory Rate 20 H Respiratory Effort Respiratory Depth Respiratory Pattern Blood Pressure 91/56 L Blood Pressure Mean 67 Pulse Ox 93 Oxygen Delivery Method Room Air Weight Weight: 72.8 kg Body Mass Index (BMI) 23.7 Physical Exam Narrative Physical exam: General: Patient with unkempt smith. Head: Normocephalic, atraumatic, no tenderness Eyes: Vision is grossly intact. EOMI ENT, no trauma, moist mucous membranes, no rhinorrhea Neck: Nontender, No thyromegaly. CVS: Regular rate and rhythm. S1-S2 present. No murmur, gallop or rub. Respiratory : clear to auscultation bilaterally, chest wall nontender Abdomen: Soft, tender, nondistended, normal bowel sounds, no masses : Deferred Back: Nontender, no CVA tenderness, no midline spinal tenderness, deformities, step-offs Extremities: Nontender full range of motion, no trauma Skin: Normal color, no trauma, abrasions Neuro: Alert, oriented, cranial nerves II through XII grossly intact. Psychiatry: Normal mood. Normal affect. Not depressed. Not anxious. Results Lab / Micro Data Result Diagrams: 07/04/22 02:40 07/04/22 02:40 Labs: Laboratory Results - last 24 hr 07/04/22 02:40: WBC 24.4 H, RBC 5.39, Hgb 15.9, Hct 49.5, MCV 91.8, MCH 29.5, MCHC 32.1, RDW Std Deviation 42.8, RDW Coeff of Kirk 12.8, Plt Count 356, MPV 10.7, Immature Gran % (Auto) 1.300 H, Neut % (Auto) 91.2 H, Lymph % (Auto) 3.6 L, [place] % (Auto) 3.7, Eos % (Auto) 0.0, Baso % (Auto) 0.2, Absolute Neuts (auto) 22.2 H, Absolute Lymphs (auto) 0.87, Nucleated RBC % 0 07/04/22 02:40: PT 12.8, INR 1.0, APTT 23.7 L 07/04/22 02:40: Sodium 140, Potassium 4.6, Chloride 104, Carbon Dioxide 27.0, Anion Gap 9, BUN 23 H, Creatinine 1.91 H, Estim Creat Clear Calc 34.45, Est GFR (MDRD) Af Amer 45 L, Est GFR (MDRD) Non-Af 37 L, BUN/Creatinine Ratio 12.0, Glucose 212 H, Calcium 9.7, Total Bilirubin 0.60, AST 13 L, ALT 20, Alkaline Phosphatase 75, Troponin I High Sens 6, Total Protein 7.5, Albumin 3.6, Globulin 3.9, Albumin/Globulin Ratio 0.9 07/04/22 02:40: Lactic Acid 2.9 H* 07/04/22 03:08: Urine Color Yellow, Urine Clarity Clear, Urine pH 5.0, Ur Specific [place] 1.015, Urine Protein 15 H, Urine Glucose (UA) Normal, Urine Ketones Negative, Urine Occult Blood Negative, Urine Nitrite Negative, Urine Bilirubin Negative, Urine Urobilinogen 1 H, Ur Leukocyte Esterase Negative, Urine RBC 0 SEEN, Urine WBC 0-5 SEEN, Ur Squamous Epith Cells 0 SEEN, Urine Bacteria 1+, Hyaline Casts 0-5 SEEN, Urine Mucus 0 SEEN Rhythm Strip Rhythm Strip: Sinus Tach Rate: 122 Ectopy: None Radiology Impression Chest X-Ray 07/04/22 02:46 IMPRESSION: No radiographic evidence of acute cardiopulmonary disease. Electronically Signed: Luis Carlos Epperson MD at 3:32 EDT , Assessment & Plan Assessment/Plan (1) Sepsis associated hypotension: (2) Gastroenteritis: (3) Acute hypotension: (4) Acute kidney injury: (5) Diabetes mellitus, type II: PLAN: Plan Sepsis secondary gastroenteritis The patient presented with sepsis due to (gastroenterology) with acute sepsis related organ dysfunction as evidenced by (lactic acidosis). SIRS criteria: Heart rate more than 90 WBC more than 12,000 (in patient's case is white count was 24,400). Also noted to have bandemia. organ dysfunction: SBP less than 90 or MAP less than 65 Lactic acid of more than 2 (lactic acid on presentation was 2.9) Impression of chest x-ray by radiology: No radiographic evidence of acute cardiopulmonary disease. Interpretation of chest x-ray by hospitalist: Agrees with radiology interpretation. Discussed with emergency department doctor to start patient on ceftriaxone and Flagyl. Ceftriaxone and Flagyl continued. Received 2 L of normal saline in the emergency department. We will continue patient on normal saline at 100mL per hour by which in 2 hours patient would have received a little more than 30 MLS per kg per septic shock protocol. CT of abdomen and pelvis ordered to the emergency department, follow. Trend CBC and lactic acid. Enteropathogenic regimen and C. difficile ordered. Fall with laceration Received tetanus injection in the emergency department. PT and OT to work with patient for balance and training and make recommendations. Vitamin D level ordered. Case management consulted HAYLIE His creatinine presentation was 1.91. Last creatinine in hospital system was in January 2020. At that time his creatinine was normal. IV fluids as above. Trend BMP. Avoid nephrotoxic's. Acute hypotension Secondary to sepsis. Hold home amlodipine. Trend blood pressures. COVID-19 infection No respiratory symptoms. Enhanced droplet precautions. Diabetes mellitus Blood glucoses slightly elevated. Not on outpatient hypoglycemic regimen. Check A1c. Trend BMP. DVT prophylaxis Subcutaneous Lovenox ordered. Charges/Coding Visit Charges Inpatient E&M: 44464 Init Hosp L3
[2022-07-04] MEDS: Ceftriaxone 1 GM/50 ML BAG IV ×2 (05:00→20:27)
[2022-07-04] MEDS: Diphth,Pertuss(Acell),Tet Vac 0.5 ML Vial IM (05:01)
[2022-07-04] MEDS: metroNIDAZOLE 500 MG/100 ML BAG 100 MG IV ×3 (05:09→21:22)
--- NOTE | 2022-07-04 05:16 | CT_ITS ---
STUDY: CT ABDOMEN AND PELVIS WITH CONTRAST REASON FOR EXAM: Male, 71 years old patient with abdominal pain. RADIATION DOSAGE (If Supplied By Facility): CTDIvol = ( 12.44 ) mGy, DLP = ( 812.89 ) mGycm TECHNIQUE: Transaxial images were obtained from the dome of the diaphragm to the symphysis pubis without oral contrast. 75 mL of IV Isovue-370 was administered. Sagittal and coronal images were reconstructed. Individualized dose optimization techniques were used for this CT. COMPARISON: CT of the abdomen and pelvis dated November 18, 2017. FINDINGS: There is right basilar dependent atelectasis. Left lung base appears to be clear. The visualized portions of the heart are within normal limits. Normal liver. There are multiple gallstones. Normal spleen. Normal pancreas. Normal bilateral adrenal glands. There are multiple bilateral renal cysts. The largest cyst is on the right and measures approximately 6.4 cm in greatest dimension. There is a right-sided nonobstructing renal calculus lower pole measuring 5 mm in greatest dimension. Normal visualized stomach. There is no obvious dilated bowel, ascites or pneumoperitoneum. There is fluid filled small bowel suggesting possible infectious or inflammatory enteritis. There is some enhancement of the santana of small bowel as well. There is a minimal solid stool in the colon with a question of enhancement and thickening of the santana of the transverse colon and ascending colon. There is non-visualization of the appendix. There is multifocal atherosclerotic calcification of the abdominal aorta, without a demonstrated aneurysm. Normal inferior vena cava. Normal retroperitoneum. Normal urinary bladder. Normal visualized prostate gland. Normal abdominal wall. There are diffuse degenerative changes of the visualized spine. There is spondylolysis of L5. CT/Abdomen/Pelvis W IV Cont ONLY IMPRESSION: 1. Cholelithiasis without obvious acute cholecystitis. 2. Possible infectious or inflammatory enteritis. Electronically Signed: Imelda Bermudez MD at 6:28 EDT ,
[2022-07-04 05:42] LABS: Lipase 37 U/L (13-75)
--- NOTE | 2022-07-04 07:08 | CON.PCM.CC_ITS ---
Assessment & Plan Assessment/Plan (1) Gastroenteritis: PLAN: Plan RECOMMENDATIONS: 1. Continue gentle IV fluid hydration. 2. Continue empiric antimicrobials. 3. Encourage incentive spirometer use while in bed. 4. Continue DVT prophylaxis. 5. If the patient remains hemodynamically stable, he can be transferred out of the medical intensive care unit. IMPRESSIONS: 1. Suspected gastroenteritis with intravascular volume depletion Although the patient initially presented over concerns for sepsis with fall, subsequent work-up revealed lactic acidemia, and acute kidney injury in the setting of hypotension, which I suspect is related to intravascular volume depletion in the setting of gastroenteritis. Acute infectious etiologies are currently being ruled out. Antimicrobials will be continued in the interim. Continue gentle IV fluid hydration. The patient remains hemodynamically stable. 2. Acute kidney injury Most likely prerenal in etiology in the setting #1. Anticipate improvement with creatinine with volume expansion. Continue gentle IV fluid hydration as ordered. 3. Uncomplicated COVID-19 infection The patient's chest x-ray was unremarkable and he is currently maintaining appropriate oxygen saturations on room air. I do not see any additional indica tion for intervention at this time. 4. History of schizoaffective disorder/hypothyro idism/GERD/hypertension/hyperlipidemia Complicates care, management, recovery and prognosis. Hold home antihypertensives for now. This note was generated with [employer] dictation software. It may contain incorrect words, spelling, and punctuation that were not noted in checking the note before signing. HPI Consult Data Date of Consult: 07/05/22 HPI Narrative Reason for Consultation: Sepsis HPI Narrative: The patient is a 71-year-old male, with a history as outlined below, who presented to the emergency department on the morning of July 04 after experiencing a fall. The patient reported that he had been experiencing diarrhea for approximately the last week. He also reported some associated nausea. The liza allison has a medical history significant for schizoaffective disorder, hypothyroidism and hypertension. He currently resides at a senior care facility. He was also recently diagnosed with COVID-19. On presentation to the emergency department, the patient was noted to be afebrile with borderline hemodynamics. He was also noted to be tachycardic and tachypneic. The patient was maintaining appropriate oxygen saturations on room air. Initial laboratory evaluation revealed an elevated white blood cell count to 24,000. Chemistry profile was notable for a creatinine of 1.9. Lactate was elevated at 2.9. Urine analysis was unrevealing. Chest x-ray demonstrated no acute cardiopulmonary process. CT abdomen/pelvis demonstrated possible infectious or inflammatory enteritis. The patient received supplemental IV fluid hydration was started on antimicrobials. He was subsequently admitted to the medical intensive care unit for further management. [facility] Medical History (Updated 07/04/22 @ 05:[address] 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 Hypertension Hypothyroidism Neoplasm of uncertain behavior of right kidney Unspecified dementia, unspecified severity, without behavioral disturbance, psychotic disturbance, mood disturbance, and anxiety Home Medications amlodipine 10 mg tablet 10 mg PO QHS BP 07/30/17 [History Last Taken 07/11/19] levothyroxine 25 mcg tablet 50 mcg PO DAILY THYROID 07/30/17 [History Last Taken 07/11/19] tamsulosin 0.4 mg capsule 0.4 mg PO QHS PROSTATE 07/30/17 [History Last Taken 07/11/19] atorvastatin 10 mg tablet 10 mg PO QHS 07/04/22 [History Last Taken Unknown] cholecalciferol (vitamin D3) 125 mcg (5,000 unit) tablet (Vitamin D3) 125 mcg PO DAILY 07/04/22 [History Last Taken Unknown] clozapine 100 mg tablet 100 mg PO DAILY 07/04/22 [History Last Taken Unknown] clozapine 200 mg tablet 200 mg PO QHS 07/04/22 [History Last Taken Unknown] fluoxetine 10 mg capsule (Prozac) 10 mg PO DAILY 07/04/22 [History Last Taken Unknown] ipratropium 0.5 mg-albuterol 3 mg (2.5 mg base)/3 mL nebulization soln 3 ml inhalation Q4H PRN PRN Wheezing 07/04/22 [History Last Taken Unknown] omeprazole 20 mg capsule,delayed release 20 mg PO DAILY 07/04/22 [History Last Taken Unknown] Allergy/AdvReac Type Severity Reaction Status Date / Time No Known Allergies Allergy Verified 07/28/19 19:39 Family History unable to obtain Surgical History unable to obtain Social History Smoking Status: Never smoker ROS ROS Narrative 10 systems were reviewed with pertinent positives as noted in the HPI above. Physical Exam Const alert and no apparent distress General Appearance: cooperative HEENT normocephalic and head/scalp atraumatic HEENT Narrative: Laceration over left eye Eyes PERRL, EOMs intact bilaterally and conjunctivae normal Neck supple General: trachea midline Chest inspection of chest normal Resp normal respiratory effort Auscultation: Negative for rales, rhonchi or wheezes Cardio S1 normal heart sound and S2 normal heart sound Rate: tachycardic GI normal to inspection, nondistended, normoactive bowel sounds Extremity no clubbing, cyanosis or edema Skin no rashes or lesions noted Neuro CN's II-XII intact bilaterally, moves all extremities and no focal motor deficits Psych Mood & Affect: flat affect Lab / Micro Data Result Diagrams: 07/05/22 03:50 07/05/22 03:50 Labs: Laboratory Results - last 24 hr 07/04/22 02:40: WBC 24.4 H, RBC 5.39, Hgb 15.9, Hct 49.5, MCV 91.8, MCH 29.5, MCHC 32.1, RDW Std Deviation 42.8, RDW Coeff of Kirk 12.8, Plt Count 356, MPV 10.7, Immature Gran % (Auto) 1.300 H, Neut % (Auto) 91.2 H, Lymph % (Auto) 3.6 L , [place] % (Auto) 3.7, Eos % (Auto) 0.0, Baso % (Auto) 0.2, Absolute Neuts (auto) 22.2 H, Absolute Lymphs (auto) 0.87, Nucleated RBC % 0 07/04/22 02:40: PT 12.8, INR 1.0, APTT 23.7 L 07/04/22 02:40: Sodium 140, Potassium 4.6, Chloride 104, Carbon Dioxide 27.0, Anion Gap 9, BUN 23 H, Creatinine 1.91 H, Estim Creat Clear Calc 34.45, Est GFR (MDRD) Af Amer 45 L, Est GFR (MDRD) Non-Af 37 L, BUN/Creatinine Ratio 12.0, Glucose 212 H, Calcium 9.7, Total Bilirubin 0.60, AST 13 L, ALT 20, Alkaline Phosphatase 75, Troponin I High Sens 6, Total Protein 7.5, Albumin 3.6, Globulin 3.9, Albumin/Globulin Ratio 0.9 07/04/22 02:40: Lactic Acid 2.9 H* 07/04/22 02:40: Lipase 37 07/04/22 03:08: Urine Color Yellow, Urine Clarity Clear, Urine pH 5.0, Ur Specific [place] 1.015, Urine Protein 15 H, Urine Glucose (UA) Normal, Urine Ketones Negative, Urine Occult Blood Negative, Urine Nitrite Negative, Urine Bilirubin Negative, Urine Urobilinogen 1 H, Ur Leukocyte Esterase Negative, Urine RBC 0 SEEN, Urine WBC 0-5 SEEN, Ur Squamous Epith Cells 0 SEEN, Urine Bacteria 1+, Hyaline Casts 0-5 SEEN, Urine Mucus 0 SEEN Rhythm Strip Rhythm Strip: Sinus Tach Rate: 122 Ectopy: None Radiology Impression Chest X-Ray 07/04/22 02:46 IMPRESSION: No radiographic evidence of acute cardiopulmonary disease. Electronically Signed: Luis Carlos Epperson MD at 3:32 EDT Reading Location ID and State: [facility] / [place] Tel , Service support , Abdomen/Pelvis CT 07/04/22 05:16 IMPRESSION: 1. Cholelithiasis without obvious acute cholecystitis. 2. Possible infectious or inflammatory enteritis. Electronically Signed: Imelda Bermudez MD at 6:28 EDT Reading Location ID and State: [facility] / [place] , Service support , Charges/Coding Visit Charges Inpatient E&M: 56367 Init Hosp L3
[2022-07-04 07:09] LABS: Reflex Lactate? Y
[2022-07-04 07:49] LABS: Hemoglobin A1c 5.8 % (3.8-5.6)
[2022-07-04] MEDS: 0.9% Normal Saline 1,000 ML 100 ML IV ×2 (07:56→10:31)
[2022-07-04] MEDS: Levothyroxine 50 MCG Tablet PO (07:57)
[2022-07-04 08:37] LABS: Lactic Acid 3.1 mmol/L (0.4-1.9)
[2022-07-04 08:44] LABS: Vitamin D,25 Hydroxy 85.4 ng/mL
--- NOTE | 2022-07-04 10:24 | PN_ITS ---
Subjective Subjective Patient seen and examined. He complains of abdominal pain and nausea. He says he had some episodes of diarrhea overnight. Review of systems otherwise negative. He is a bit tachypneic and tachcyardic today. Objective Data Objective Data Vital Signs: Vital Signs Temp Pulse Resp BP Pulse Ox O2 Del Method 97.6 F L 107 H 24 H 100/65 92 Room Air 07/04/22 08:00 07/04/22 08:30 07/04/22 08:30 07/04/22 08:30 07/04/22 08:30 07/04/22 08:30 Oxygen Delivery Method Room Air Weight: 152 lb 12.485 oz Body Mass Index (BMI) 22.5 Intake & Output: Intake and Output for Last 24 Hours 07/02/22 07/03/22 07/04/22 23:59 23:59 23:59 Intake Total 2250 / 2250 Balance 2250 / 2250 Lab / Micro Data Result Diagrams: 07/04/22 02:40 07/04/22 02:40 Labs: Laboratory Results - last 24 hr 07/04/22 02:40: WBC 24.4 H, RBC 5.39, Hgb 15.9, Hct 49.5, MCV 91.8, MCH 29.5, MCHC 32.1, RDW Std Deviation 42.8, RDW Coeff of Kirk 12.8, Plt Count 356, MPV 10.7, Immature Gran % (Auto) 1.300 H, Neut % (Auto) 91.2 H, Lymph % (Auto) 3.6 L , [place] % (Auto) 3.7, Eos % (Auto) 0.0, Baso % (Auto) 0.2, Absolute Neuts (auto) 22.2 H, Absolute Lymphs (auto) 0.87, Nucleated RBC % 0 07/04/22 02:40: PT 12.8, INR 1.0, APTT 23.7 L 07/04/22 02:40: Sodium 140, Potassium 4.6, Chloride 104, Carbon Dioxide 27.0, Anion Gap 9, BUN 23 H, Creatinine 1.91 H, Estim Creat Clear Calc 34.45, Est GFR (MDRD) Af Amer 45 L, Est GFR (MDRD) Non-Af 37 L, BUN/Creatinine Ratio 12.0, Glucose 212 H, Calcium 9.7, Total Bilirubin 0.60, AST 13 L, ALT 20, Alkaline Phosphatase 75, Troponin I High Sens 6, Total Protein 7.5, Albumin 3.6, Globulin 3.9, Albumin/Globulin Ratio 0.9 07/04/22 02:40: Lactic Acid 2.9 H* 07/04/22 02:40: Lipase 37 07/04/22 02:40: Hemoglobin A1c 5.8 H 07/04/22 03:08: Urine Color Yellow, Urine Clarity Clear, Urine pH 5.0, Ur Specific [place] 1.015, Urine Protein 15 H, Urine Glucose (UA) Normal, Urine Ketones Negative, Urine Occult Blood Negative, Urine Nitrite Negative, Urine Bilirubin Negative, Urine Urobilinogen 1 H, Ur Leukocyte Esterase Negative, Urine RBC 0 SEEN, Urine WBC 0-5 SEEN, Ur Squamous Epith Cells 0 SEEN, Urine Bacteria 1+, Hyaline Casts 0-5 SEEN, Urine Mucus 0 SEEN 07/04/22 07:55: Vitamin D 25-Hydroxy 85.4 07/04/22 07:55: Lactic Acid 3.1 H* Radiography Diagnostic Testing: Radiology Impression Chest X-Ray 07/04/22 02:46 IMPRESSION: No radiographic evidence of acute cardiopulmonary disease. Electronically Signed: Luis Carlos Epperson MD at 3:32 EDT , Abdomen/Pelvis CT 07/04/22 05:16 IMPRESSION: 1. Cholelithiasis without obvious acute cholecystitis. 2. Possible infectious or inflammatory enteritis. Electronically Signed: Imelda Bermudez MD at 6:28 EDT , Rhythm Strip Rhythm Strip: Sinus Tach Rate: 122 Ectopy: None Physical Exam Const alert, oriented x3 and no apparent distress Constitutional Narrative: frail General Appearance: cooperative HEENT normocephalic, head/scalp atraumatic, moist oral mucous membranes and oropharynx normal Eyes PERRL and EOMs intact bilaterally Neck no lymphadenopathy, supple and no JVD Lymph Lymphatic: no lymphadenopathy noted and no lymphedema noted Resp Resp Narrative: mildly diminished breath sounds bibasally, no wheezes or crackles. Mildly tachypneic Cardio regular rhythm, S1 normal heart sound, S2 normal heart sound and no murmurs GI normal to inspection, nondistended, normoactive bowel sounds, soft to palpation and non-tender Extremity normal capillary refill, no clubbing, cyanosis or edema and no calf tenderness Skin General Skin Exam: no breakdown Neuro CN's II-XII intact bilaterally, no focal motor deficits, no sensory deficits noted and deep tendon reflexes 2+ bilaterally Motor Exam: strength 5/5 throughout and general weakness Psych thought process normal, cooperative and affect normal Appearance: appropriate Assessment & Plan Assessment/Plan (1) Gastroenteritis: PLAN: Plan #Sepsis due to gastroenteritis * wbc elevated this morning * HR elevated * lactic acid was also elevated. * continue gentle hydration with IVF * continue IV flagyl and cftriaxone. * CT abdomen and pelvis:gallstones without acute cholecystitis and enteritis * IV zofran prn * #Debility due to mechanical fall * PT.OT on board * fall precautions * received tetanus injection * #Abnormal urinalysis: urinalysis showed 1+ bacteria. Get urine culture. #HAYLIE: Cr is 1.91. Hydrate gently with IVF and trend Cr. Baseline Cr is <1 #COVID 19 infection * asymptomatic. Was a bit tachypneic this morning. * on room air. * #HYpotension: resolved. Amlodipine on hold. #TYpe 2 diabetes mellitus; diet controlled. ISS. Accuchecks ACHS DVT prophylaxis: lovenox # Charges/Coding Visit Charges Inpatient E&M: 06310 Subs Hosp L2
[2022-07-04] MEDS: Pantoprazole Sodium 20 MG Tablet PO (10:32)
[2022-07-04] MEDS: cloZAPine 100 MG TABLET PO (10:32)
[2022-07-04] MEDS: Cholecalciferol (Vit D3) 125 MCG CAPSULE (5,000 UNITS) PO (10:32)
[2022-07-04] MEDS: FLUoxetine 10 MG Capsule PO (10:32)
[2022-07-04] MEDS: Enoxaparin 30 MG/0.3 ML Syringe SC ×2 (10:32→21:23)
--- NOTE | 2022-07-04 11:17 | CASEMGMT ---
Addendum entered by Sabrina Aguilar 07/04/22 14:10: CHIQUI called pt's Legal guardian, Domenica Marroquin, back on cell phone at this time in attempt to work on discharge plan. No answer. Unable to leave a message, VM still full. Original Note: Social Work Pt from [facility]. SW noted pt has Legal Guardian, Domenica Marroquin. SW called cell number listed and VM box was full. SW called work number listed- [facility] [phone]. Asked to speak to Domenica. Sub Master transferred SW to VM of someone else entirely. SW called back in attempt to reach pt's guardian again. Reached correct VM box this time. SW left contact info in voicemail and requested Domenica call back to discuss pt's discharge plan. KAYA Ruiz
[2022-07-04] MEDS: 0.9% Saline Lock 10 ML Syringe IV (14:26)
[2022-07-04] MEDS: Ondansetron 4 MG/2 ML Vial IV (14:26)
[2022-07-04] MEDS: 0.9% Normal Saline 1,000 ML 150 ML IV (20:18)
[2022-07-04] MEDS: Atorvastatin Calcium 10 MG Tablet PO (21:22)
[2022-07-04] MEDS: cloZAPine 100 MG TABLET 200 MG PO (21:23)
[2022-07-04] MEDS: Tamsulosin HCl 0.4 MG Capsule PO (21:23)
[2022-07-05] VITALS (13 sets, daily range): BP systolic 98–137; BP diastolic 63–93; PULSE 95–108; RESP 14–20; TEMP 36.4–37.4; O2SAT 91–97; BMI 23.8
[2022-07-05] MEDS: Ondansetron 4 MG/2 ML Vial IV ×2 (00:21→08:44)
[2022-07-05] MEDS: 0.9% Normal Saline 1,000 ML 150 ML IV ×3 (03:46→18:25)
[2022-07-05 04:08] LABS: Absolute Lymphocyte Count 1.99 X10^3/uL (0.83-4.51); Absolute Neutrophil Count 18.3 X10^3/uL (2.0-7.7); Basophil# 0.06 X10^3/uL; Basophil% 0.3 % (0-1); Eosinophil# 0.16 X10^3/uL; Eosinophils% 0.7 % (0-5); Hematocrit 38.1 % (40-54); Hemoglobin 12.4 g/dL (13.0-16.5); Lymphocyte # 1.99 X10^3/ul (0.83-4.51); Lymphocyte % 8.8 % (19-41); Mean Corp Hgb Conc 32.5 g/dL (32-36); Mean Corpuscular Hgb 30.2 pg (27.0-32.0); Mean Corpuscular Volume 92.7 fL (80-94); Mean Platelet Vol. 10.8 fl (6.2-12.0); NRBC Flagged by Analyzer 0 % (0-5); Neutrophil # 18.29 X10^3/uL (2.7-7.7); Neutrophil % 81.2 % (47-70); POSITIVE DIFFERENTIAL YES; Platelet Count 248 K/mm3 (150-450); RBC Distribution Width CV 12.8 % (11.6-14.6); RBC Distribution Width SD 43.3 fl (35.1-43.9); Red Blood Count 4.11 M/mm3 (4.6-6.2); White Blood Count 22.5 K/mm3 (4.4-11.0)
[2022-07-05 04:09] LABS: Differential Indicated SCAN CRITERIA MET
[2022-07-05 04:20] LABS: Atypical Lymphocyte 1+ %
[2022-07-05 04:44] LABS: Anion Gap 5 (5-15); BUN 22 mg/dL (7-18); BUN/Creat Ratio 21.6 RATIO (10-20); Calcium,Total 7.9 mg/dL (8.5-10.1); Chloride 112 mmol/L (98-107); Creatinine, Serum 1.02 mg/dL (0.70-1.30); EST Glomerular Filtration Rate 76 mL/min (>60); Est Glom Filt Rate - Afr Amer 92 mL/min (>60); Estimated Creatinine Clearance 63.22 ml/min; Glucose 141 mg/dL (74-106); Potassium 3.7 mmol/L (3.5-5.1); Sodium Level 141 mmol/L (136-145)
[2022-07-05] MEDS: metroNIDAZOLE 500 MG/100 ML BAG 100 MG IV ×3 (05:25→22:59)
[2022-07-05] MEDS: Levothyroxine 50 MCG Tablet PO (05:26)
--- NOTE | 2022-07-05 06:50 | PCM.PN.INT ---
Assessment & Plan Assessment/Plan (1) Gastroenteritis: PLAN: Plan RECOMMENDATIONS: 1. Continue gentle IV fluid hydration. 2. Continue empiric antimicrobials. 3. Encourage incentive spirometer use while in bed. 4. Continue DVT prophylaxis. 5. We will sign off from a pulmonary/critical care perspective. Please call with any additional questions. IMPRESSIONS: 1. Suspected gastroenteritis with intravascular volume depletion Although the patient initially presented over concerns for sepsis with fall, subsequent work-up revealed lactic acidemia, and acute kidney injury in the setting of hypotension, which I suspect is related to intravascular volume depletion in the setting of gastroenteritis. Acute infectious etiologies are currently being ruled out. Antimicrobials will be continued in the interim. Continue gentle IV fluid hydration. The patient remains hemodynamically stable on room air. 2. Acute kidney injury Improved. Most likely prerenal in etiology in the setting #1. Creatinine has normalized with volume expansion. Continue gentle IV fluid hydration as ordered. 3. Uncomplicated COVID-19 infection The patient's chest x-ray was unremarkable and he is currently maintaining appropriate oxygen saturations on room air. I do not see any additional indication for intervention at this time. 4. History of schizoaffective disorder/hypothyroidism/GERD/hypertension/hyperlipidemia Complicates care, management, recovery and prognosis. Continue home medications as indicated. This note was generated with [employer] dictation software. It may contain incorrect words, spelling, and punctuation that were not noted in checking the note before signing. Subjective Subjective The patient was seen and examined at the bedside this morning. Events from the last 24 hours have been reviewed. The patient is currently afebrile, hemodynamically stable and maintaining appropriate oxygen saturations on room air. The patient is documented to be overall net +4.9 L for the hospitalization. White count remains elevated at 22,000. Creatinine has normalized. Objective Data Objective Data The patient's most recent lab work, culture data and imaging studies have all been personally reviewed. Blood and urine cultures are pending. Vital Signs: Vital Signs Temp Pulse Resp BP Pulse Ox O2 Del Method 97.8 F 100 16 112/77 93 Room Air 07/05/22 04:00 07/05/22 06:00 07/05/22 06:00 07/05/22 06:00 07/05/22 06:00 07/05/22 06:00 Oxygen Delivery Method Room Air Weight: 160 lb 14.999 oz Body Mass Index (BMI) 23.8 Intake & Output: Intake and Output for Last 24 Hours 07/03/22 07/04/22 07/05/22 23:59 23:59 23:59 Intake Total 4238.33 / 4238.33 1000 / 1000 Output Total 0 / 320 320 / 320 Balance 4238.33 / 3918.33 680 / 680 Lab / Micro Data Attestation: I reviewed the patient's lab results. Result Diagrams: 07/05/22 03:50 07/05/22 03:50 Labs: Laboratory Results - last 24 hr 07/04/22 02:40: Hemoglobin A1c 5.8 H 07/04/22 07:55: Vitamin D 25-Hydroxy 85.4 07/04/22 07:55: Lactic Acid 3.1 H* 07/05/22 03:50: WBC 22.5 H, RBC 4.11 L, Hgb 12.4 L, Hct 38.1 L, MCV 92.7, MCH 30.2, MCHC 32.5, RDW Std Deviation 43.3, RDW Coeff of Kirk 12.8, Plt Count 248, MPV 10.8, Immature Gran % (Auto) 1.000 H, Neut % (Auto) 81.2 H, Lymph % (Auto) 8.8 L, [place] % (Auto) 8.0, Eos % (Auto) 0.7, Baso % (Auto) 0.3, Absolute Neuts (auto) 18.3 H, Absolute Lymphs (auto) 1.99, Nucleated RBC % 0, Diff Path Review May foll, Atypical Lymphocytes 1+ 07/05/22 03:50: Sodium 141, Potassium 3.7, Chloride 112 H, Carbon Dioxide 24.0, Anion Gap 5, BUN 22 H, Creatinine 1.02, Estim Creat Clear Calc 63.22, Est GFR (MDRD) Af Amer 92, Est GFR (MDRD) Non-Af 76, BUN/Creatinine Ratio 21.6 H, Glucose 141 H, Calcium 7.9 L Rhythm Strip Rhythm Strip: Sinus Tach Rate: 122 Ectopy: None Physical Exam Const alert and no apparent distress General Appearance: cooperative HEENT normocephalic and head/scalp atraumatic HEENT Narrative: Laceration over left eye Eyes PERRL, EOMs intact bilaterally and conjunctivae normal Neck supple General: trachea midline Chest inspection of chest normal Resp normal respiratory effort Auscultation: Negative for rales, rhonchi or wheezes Cardio regular rate, regular rhythm, S1 normal heart sound and S2 normal heart sound GI normal to inspection, nondistended, normoactive bowel sounds Extremity no clubbing, cyanosis or edema Skin no rashes or lesions noted Neuro CN's II-XII intact bilaterally, moves all extremities and no focal motor deficits Psych Mood & Affect: flat affect Charges/Coding Visit Charges Inpatient E&M: 57813 Subs Hosp L2
[2022-07-05] MEDS: Enoxaparin 30 MG/0.3 ML Syringe SC ×2 (08:43→21:35)
[2022-07-05] MEDS: Cholecalciferol (Vit D3) 125 MCG CAPSULE (5,000 UNITS) PO (08:43)
[2022-07-05] MEDS: Pantoprazole Sodium 20 MG Tablet PO (08:43)
[2022-07-05] MEDS: FLUoxetine 10 MG Capsule PO (08:43)
[2022-07-05] MEDS: cloZAPine 100 MG TABLET PO (08:43)
[2022-07-05] MEDS: 0.9% Saline Lock 10 ML Syringe IV ×2 (08:44→18:41)
--- NOTE | 2022-07-05 09:18 | CM.UR ---
Social Work SW received VM from Domenica Marroquin [facility] G[facility]EL[facility] and pt's legal guardian. Domenica left a new work cell number. CHIQUI updated pt demographics with new number provided. CHIQUI called Domenica at the number and received VM. CHIQUI left message inquiring about pt discharge plan and left contact number for Domenica to call rosie. KAYA Ruiz
--- NOTE | 2022-07-05 12:15 | PN_ITS ---
Subjective Subjective Patient seen and examined. He still complained of abdominal pain. He denied any nausea or vomiting and diarrhea had resolved. Review of systems was otherwise negative. He has remained hemodynamically stable. Objective Data Objective Data Vital Signs: Vital Signs Temp Pulse Resp BP Pulse Ox O2 Del Method 98.0 F 95 19 H 120/67 95 Room Air 07/05/22 12:00 07/05/22 12:00 07/05/22 12:00 07/05/22 12:00 07/05/22 12:00 07/05/22 12:00 Oxygen Delivery Method Room Air Weight: 160 lb 14.999 oz Body Mass Index (BMI) 23.8 Intake & Output: Intake and Output for Last 24 Hours 07/03/22 07/04/22 07/05/22 23:59 23:59 23:59 Intake Total 4238.33 / 4238.33 2580 / 2580 Output Total 0 / 320 795 / 795 Balance 4238.33 / 3918.33 1785 / 1785 Lab / Micro Data Result Diagrams: 07/05/22 03:50 07/05/22 03:50 Labs: Laboratory Results - last 24 hr 07/05/22 03:50: WBC 22.5 H, RBC 4.11 L, Hgb 12.4 L, Hct 38.1 L, MCV 92.7, MCH 30.2, MCHC 32.5, RDW Std Deviation 43.3, RDW Coeff of Kirk 12.8, Plt Count 248, MPV 10.8, Immature Gran % (Auto) 1.000 H, Neut % (Auto) 81.2 H, Lymph % (Auto) 8.8 L, [place] % (Auto) 8.0, Eos % (Auto) 0.7, Baso % (Auto) 0.3, Absolute Neuts (auto) 18.3 H, Absolute Lymphs (auto) 1.99, Nucleated RBC % 0, Diff Path Review May foll, Atypical Lymphocytes 1+ 07/05/22 03:50: Sodium 141, Potassium 3.7, Chloride 112 H, Carbon Dioxide 24.0, Anion Gap 5, BUN 22 H, Creatinine 1.02, Estim Creat Clear Calc 63.22, Est GFR (MDRD) Af Amer 92, Est GFR (MDRD) Non-Af 76, BUN/Creatinine Ratio 21.6 H, Glucose 141 H, Calcium 7.9 L Micro: Microbiology 07/04/22 03:08 Urine Catheter - Catheter Urine Culture - Preliminary Culture exhibits no growth. Rhythm Strip Rhythm Strip: Sinus Tach Rate: 122 Ectopy: None Physical Exam Const alert, oriented x3 and no apparent distress Constitutional Narrative: frail General Appearance: cooperative HEENT normocephalic, head/scalp atraumatic, moist oral mucous membranes and oropharynx normal Eyes PERRL and EOMs intact bilaterally Neck no lymphadenopathy, supple and no JVD Lymph Lymphatic: no lymphadenopathy noted and no lymphedema noted Resp Resp Narrative: mildly diminished breath sounds bibasally, no wheezes or crackles. Cardio regular rate, regular rhythm, S1 normal heart sound, S2 normal heart sound and n o murmurs GI normal to inspection, nondistended, normoactive bowel sounds, soft to palpation and non-tender Extremity normal capillary refill, no clubbing, cyanosis or edema and no calf tenderness Skin General Skin Exam: no breakdown Neuro CN's II-XII intact bilaterally, no focal motor deficits, no sensory deficits noted and deep tendon reflexes 2+ bilaterally Motor Exam: strength 5/5 throughout and general weakness Psych thought process normal, cooperative and affect normal Appearance: appropriate Assessment & Plan Assessment/Plan (1) Gastroenteritis: PLAN: Plan #Sepsis due to gastroenteritis * wbc remains elevated. * on IV metronidazole and ceftriaxone. * CT abdomen and pelvis:gallstones without acute cholecystitis and enteritis * IV zofran prn * continue gentle hydration with IVF * still having abdominal pain. * #Debility due to mechanical fall * PT.OT on board * fall precautions * received tetanus injection * #Abnormal urinalysis: urinalysis showed 1+ bacteria. Get urine culture. #HAYLIE: resolved. Cr is 1.02. #COVID 19 infection * asymptomatic. * on room air. * #HYpotension: resolved. Amlodipine on hold. #TYpe 2 diabetes mellitus; diet controlled. ISS. Accuchecks ACHS DVT prophylaxis: lovenox DIspositionL transfer out of ICU to med surg Charges/Coding Visit Charges Inpatient E&M: 60364 Subs Hosp L2
[2022-07-05 13:02] LABS: Pathologist Review Reviewed
[2022-07-05] MEDS: cloZAPine 100 MG TABLET 200 MG PO (21:34)
[2022-07-05] MEDS: Tamsulosin HCl 0.4 MG Capsule PO (21:34)
[2022-07-05] MEDS: MELATONIN 3 MG TABLET PO (21:34)
[2022-07-05] MEDS: Ceftriaxone 1 GM/50 ML BAG IV (21:35)
[2022-07-05] MEDS: Atorvastatin Calcium 10 MG Tablet PO (21:35)
[2022-07-06 04:01] VITALS: BP 127/60; PULSE 103; RESP 18; TEMP 36.6; O2SAT 94
[2022-07-06] MEDS: 0.9% Normal Saline 1,000 ML 150 ML IV (04:07)
[2022-07-06 05:36] VITALS: BMI 23.8
[2022-07-06] MEDS: metroNIDAZOLE 500 MG/100 ML BAG 100 MG IV (05:36)
[2022-07-06] MEDS: Levothyroxine 50 MCG Tablet PO (05:37)
--- NOTE | 2022-07-06 07:50 | CASEMGMT ---
Addendum entered by Sabrina Aguilar 07/06/22 09:26: CHIQUI received update from MD Crawford. Pt is medically ready for discharge. CHIQUI called pt guardian to inform pt would be discharged this day. CHIQUI also updated [facility]. Addendum entered by Sabrina Aguilar 07/06/22 07:54: SW sent clinical updates to [facility] and informed pt would be returning to their facility when medically ready. Original Note: Social Work SW received pc from pt Legal Guardian, Domenica Marroquin. Domenica confirmed pt is to return to [facility] when medically ready for discharge. Domenica declined a list of alternative [facility] providers. PLAN: [facility], when medically ready KAYA Ruiz
[2022-07-06 08:33] LABS: Absolute Lymphocyte Count 2.45 X10^3/uL (0.83-4.51); Absolute Neutrophil Count 15.6 X10^3/uL (2.0-7.7); Basophil# 0.08 X10^3/uL; Basophil% 0.4 % (0-1); Eosinophil# 0.22 X10^3/uL; Eosinophils% 1.1 % (0-5); Hematocrit 39.3 % (40-54); Hemoglobin 12.9 g/dL (13.0-16.5); Lymphocyte # 2.45 X10^3/ul (0.83-4.51); Lymphocyte % 12.3 % (19-41); Mean Corp Hgb Conc 32.8 g/dL (32-36); Mean Corpuscular Hgb 30.2 pg (27.0-32.0); Mean Platelet Vol. 10.6 fl (6.2-12.0); Monocyte% 6.5 % (0-10); NRBC Flagged by Analyzer 0 % (0-5); Neutrophil # 15.59 X10^3/uL (2.7-7.7); Neutrophil % 78.6 % (47-70); Platelet Count 220 K/mm3 (150-450); RBC Distribution Width CV 12.8 % (11.6-14.6); RBC Distribution Width SD 42.5 fl (35.1-43.9); Red Blood Count 4.27 M/mm3 (4.6-6.2); White Blood Count 19.9 K/mm3 (4.4-11.0)
[2022-07-06 08:51] LABS: Anion Gap 6 (5-15); BUN 11 mg/dL (7-18); BUN/Creat Ratio 12.2 RATIO (10-20); Calcium,Total 8.4 mg/dL (8.5-10.1); Chloride 109 mmol/L (98-107); EST Glomerular Filtration Rate 88 mL/min (>60); Est Glom Filt Rate - Afr Amer 106 mL/min (>60); Glucose 114 mg/dL (74-106); Potassium 3.2 mmol/L (3.5-5.1); Sodium Level 140 mmol/L (136-145)
[2022-07-06 09:00] VITALS: RESP 18
[2022-07-06 10:00] VITALS: BP 130/75; PULSE 95; RESP 18; TEMP 37.2; O2SAT 97
[2022-07-06] MEDS: Enoxaparin 30 MG/0.3 ML Syringe SC (10:12)
[2022-07-06] MEDS: cloZAPine 100 MG TABLET PO (10:12)
[2022-07-06] MEDS: Pantoprazole Sodium 20 MG Tablet PO (10:12)
[2022-07-06] MEDS: FLUoxetine 10 MG Capsule PO (10:13)
[2022-07-06] MEDS: Cholecalciferol (Vit D3) 125 MCG CAPSULE (5,000 UNITS) PO (10:13)
--- NOTE | 2022-07-06 14:10 | TREXTCAR_ITS ---
Diet Diet Order/Speech Therapy: 07/04/22 10:01 Diet: Consistent Carb - Calorie Controlled Food consistency:: Regular Liquid Consistency:: Regular/Thin Dietary Modifications:: No Added Salt Type of Dietary Supplement:: Glucerna Shake Is pt able to select menu?: No Diet Comments: 4 oz GS tid w/ meals How many daily calories?: 1800 calorie Routine Orders/Code Status Enema Type: Fleetz Enema Frequency: Daily PRN Suppository Type: Dulcolax 10mg O2 Frequency: PRN Keep PO Greater than or Equal to (%): 90 Wound(s) Left lateral eyebrow: Wound Type: Laceration Left Knee: Wound Type: Abrasion Therapies Weight Bearing: Weight bearing as tolerated Physical Therapy: Eval and Treat Occupational Therapy: Eval and Treat Problem/Diagnosis (1) Gastroenteritis: Status: Acute Code(s): K52.9 - Noninfective gastroenteritis and colitis, unspecified Plan #Sepsis due to gastroenteritis * wbc remains elevated. * on IV metronidazole and ceftriaxone. * CT abdomen and pelvis:gallstones without acute cholecystitis and enteritis * IV zofran prn * continue gentle hydration with IVF * still having abdominal pain. * #Debility due to mechanical fall * PT.OT on board * fall precautions * received tetanus injection * #Abnormal urinalysis: urinalysis showed 1+ bacteria. Get urine culture. #HAYLIE: resolved. Cr is 1.02. #COVID 19 infection * asymptomatic. * on room air. * #HYpotension: resolved. Amlodipine on hold. #TYpe 2 diabetes mellitus; diet controlled. ISS. Accuchecks ACHS DVT prophylaxis: lovenox DIspositionL transfer out of ICU to med surg Allergies/Procedures Done in Hospital Allergies No Known Allergies Allergy (Verified 07/28/19 19:39) Procedures: None Type of Care/Length of Stay Estimated LOS: Convalescent Care Less Than 30 days Type of Care Needed: Skilled Rehab Potential: Fair Prognosis: Fair Additional Orders/Day of Discharge Day of Discharge: 07/06/22 Dietary and Speech Recommendations Dietitian Recommendations/Changes: Will change diet to 1800 chip / No Added Salt Will provide 4 oz glucerna shake w/ meals for increased nutrition if consumed. Will continue to follow and monitor for changes in pt nutritional status Discharge Plan Admission Admit Date/Time: 07/04/22 04:45 Primary Reason for Your Visit: gastroenteritis Attending Provider: Peyton Crawford Primary Care Provider: Simone Messer Consulting Providers: Sreekanth Verma ; Donald Valdes Instructions Patient Instructions: ED Diarrhea, Unknown Cause Discharge Orders/Prescriptions Prescriptions: New ciprofloxacin HCl 500 mg tablet 500 mg PO BID Qty: 10 0RF metronidazole 500 mg tablet 500 mg PO BID Qty: 10 0RF Continued levothyroxine 25 MCG tablet 50 mcg PO DAILY tamsulosin 0.4 MG capsule 0.4 mg PO QHS amlodipine 10 MG tablet 10 mg PO QHS ipratropium-albuterol 0.5 mg-3 mg(2.5 mg base)/3 mL solution for nebulization 3 ml inhalation Q4H PRN PRN (Reason: Wheezing) atorvastatin 10 mg tablet 10 mg PO QHS clozapine 100 mg tablet 100 mg PO DAILY fluoxetine [Prozac] 10 mg Capsule 10 mg PO DAILY omeprazole 20 mg Capsule,Delayed Release(Dr/Ec) 20 mg PO DAILY clozapine 200 mg tablet 200 mg PO QHS cholecalciferol (vitamin D3) [Vitamin D3] 125 mcg (5,000 unit) Tablet 125 mcg PO DAILY Referrals / Follow Up: Simone Messer MD [Primary Care Provider] - Within 2 Weeks Disposition Disposition (needs filled in before D/C Order can be placed): Home, Self Care Charges/Coding Visit Charges Inpatient E&M: 87343 Disch Hosp >30min
--- NOTE | 2022-07-06 14:11 | PCM.DC.SUM ---
Providers Date of Admission: 07/04/22 Date of Discharge: 07/06/22 Primary Care Physician: Dr. Simone Messer MD Consultations 07/04/22 05:34 Consult: Cannery Worker / Pulmonary Medicine Routine Consulting Provider: Donald Valdes Reason for Consult: Sepsis EMERGENT Consult: No Notified: Yes Date Notified: 07/04/22 Time Notified: 05:03 Method of Notification: Text Reason For Visit: SEPSIS 2NDARY TO GASTROENTERITIS Diagnosis Discharge Diagnosis (1) Gastroenteritis: Status: Acute Code(s): K52.9 - Noninfective gastroenteritis and colitis, unspecified Plan #Sepsis due to gastroenteritis wbc remains elevated. on IV metronidazole and ceftriaxone. CT abdomen and pelvis:gallstones without acute cholecystitis and enteritis IV zofran prn continue gentle hydration with IVF still having abdominal pain. #Debility due to mechanical fall PT.OT on board fall precautions received tetanus injection #Abnormal urinalysis: urinalysis showed 1+ bacteria. Get urine culture. #HAYLIE: resolved. Cr is 1.02. #COVID 19 infection asymptomatic. on room air. #HYpotension: resolved. Amlodipine on hold. #TYpe 2 diabetes mellitus; diet controlled. ISS. Accuchecks ACHS DVT prophylaxis: lovenox DIspositionL transfer out of ICU to med surg Medications at Discharge Home Medications amlodipine 10 mg tablet 10 mg PO QHS BP 07/30/17 levothyroxine 25 mcg tablet 50 mcg PO DAILY THYROID 07/30/17 tamsulosin 0.4 mg capsule 0.4 mg PO QHS PROSTATE 07/30/17 atorvastatin 10 mg tablet 10 mg PO QHS 07/04/22 cholecalciferol (vitamin D3) 125 mcg (5,000 unit) tablet (Vitamin D3) 125 mcg PO DAILY 07/04/22 clozapine 100 mg tablet 100 mg PO DAILY 07/04/22 clozapine 200 mg tablet 200 mg PO QHS 07/04/22 fluoxetine 10 mg capsule (Prozac) 10 mg PO DAILY 07/04/22 ipratropium 0.5 mg-albuterol 3 mg (2.5 mg base)/3 mL nebulization soln 3 ml inhalation Q4H PRN PRN Wheezing 07/04/22 omeprazole 20 mg capsule,delayed release 20 mg PO DAILY 07/04/22 ciprofloxacin HCl 500 mg tablet 500 mg PO BID #10 tabs 07/06/22 metronidazole 500 mg tablet 500 mg PO BID #10 tabs 07/06/22 Hospital Course Operations None Procedures None Summary of Care Provided Minutes Spent on Discharge: 45 Hospital Course: Patient is a 71-year-old male with a past medical history as outlined who was admitted to the ED from his residential on 07/04/2022 with a complaint of mechanical fall with resultant laceration of his left eyelid. On admission he was also found to be having diarrhea which have been going on for about a week with assisted abdominal pain. He had also tested for positive for COVID the day before admission. On admission urinalysis showed 1+ bacteria and chest x-ray showed no acute cardiopulmonary process. CT of the abdomen showed cholelithiasis without obvious acute cholecystitis and possible infectious or inflammatory enteritis. His white cell count was also elevated to 24,000. He was admitted and managed for acute gastroenteritis with concerns for infectious enteritis. He was started on IV antibiotics and admitted to the ICU initially on account of hypotension and concerns for sepsis. This resolved with fluid hydration. Patient remained on room air throughout admission. His symptoms gradually improved. His abdominal pain improved and he was able to tolerate a diet. White cell count trended down to 19,000. Blood cultures and urine cultures were negative. He was discharged back to halfway facility on 07/06/2022. He was discharged on a 5-day course of ciprofloxacin and metronidazole. He is to follow-up with his primary care doctor within 1 to 2 weeks. Patient seen and examined prior to discharge. He had no active complaints and had an uneventful night. Review of systems otherwise negative. Labs and vitals reviewed. Home medication reviewed and reconciled. Physical Exam Const alert, oriented x3 and no apparent distress Constitutional Narrative: frail General Appearance: cooperative and comfortable HEENT normocephalic, head/scalp atraumatic, moist oral mucous membranes and oropharynx normal HEENT Narrative: healing laceration over left eye Eyes PERRL and EOMs intact bilaterally Neck no lymphadenopathy, supple and no JVD Lymph Lymphatic: no lymphadenopathy noted and no lymphedema noted Resp Resp Narrative: mildly diminished breath sounds bibasally, no wheezes or crackles. Cardio regular rate, regular rhythm, S1 normal heart sound, S2 normal heart sound and no murmurs GI normal to inspection, nondistended, normoactive bowel sounds, soft to palpation and non-tender Extremity normal to inspection, normal capillary refill, no clubbing, cyanosis or edema and no calf tenderness Skin no rashes or lesions noted General Skin Exam: no breakdown Neuro oriented x3, CN's II-XII intact bilaterally, moves all extremities, no focal motor deficits, no sensory deficits noted and deep tendon reflexes 2+ bilaterally Sensorium / Orientation: awake and alert Motor Exam: strength 5/5 throughout Psych thought process normal, cooperative and affect normal Appearance: appropriate Weight / BMI Weight Weight: 160 lb 11.472 oz Body Mass Index (BMI) 23.8 ABG / Lab / Microbiology Data Result Diagrams: 07/06/22 08:21 07/06/22 08:21 Laboratory: Laboratory Results - last 24 hr 07/06/22 08:21: WBC 19.9 H, RBC 4.27 L, Hgb 12.9 L, Hct 39.3 L, MCV 92.0, MCH 30.2, MCHC 32.8, RDW Std Deviation 42.5, RDW Coeff of Kirk 12.8, Plt Count 220, MPV 10.6, Immature Gran % (Auto) 1.100 H, Neut % (Auto) 78.6 H, Lymph % (Auto) 12.3 L, [place] % (Auto) 6.5, Eos % (Auto) 1.1, Baso % (Auto) 0.4, Absolute Neuts (auto) 15.6 H, Absolute Lymphs (auto) 2.45, Nucleated RBC % 0 07/06/22 08:21: Sodium 140, Potassium 3.2 L, Chloride 109 H, Carbon Dioxide 25.0, Anion Gap 6, BUN 11, Creatinine 0.90, Estim Creat Clear Calc 73.10, Est GFR (MDRD) Af Amer 106, Est GFR (MDRD) Non-Af 88, BUN/Creatinine Ratio 12.2, Glucose 114 H, Calcium 8.4 L Microbiology: Microbiology 07/04/22 03:08 Urine Catheter - Catheter Urine Culture - Final Culture exhibits no growth. 07/04/22 03:00 Blood Culture (Wb) - Anticubital Right Blood Culture - Preliminary No growth in 48 hours. 07/04/22 02:40 Blood Culture (Wb) - Anticubital Left Blood Culture - Preliminary No growth in 48 hours. D/C Instructions Discharge Diet: Low fat / Low cholesterol Discharge Activity: Return to Normal Activity Weight Bearing Status: Weight bearing as tolerated Call your doctor if you observe: Fever of 101 or Higher, Shortness of breath, Dizziness, Swelling in the ankles and Chest pain Meaningful Use Info Meaningful Use Diagnoses (Choose all that apply): None applicable Discharge Plan Admission Admit Date/Time: 07/04/22 04:45 Primary Reason for Your Visit: gastroenteritis Attending Provider: Peyton Crawford Primary Care Provider: Simone Messer Consulting Providers: Sreekanth Verma ; Donald Valdes Instructions Patient Instructions: ED Diarrhea, Unknown Cause Discharge Orders/Prescriptions Prescriptions: New ciprofloxacin HCl 500 mg tablet 500 mg PO BID Qty: 10 0RF metronidazole 500 mg tablet 500 mg PO BID Qty: 10 0RF Continued levothyroxine 25 MCG tablet 50 mcg PO DAILY tamsulosin 0.4 MG capsule 0.4 mg PO QHS amlodipine 10 MG tablet 10 mg PO QHS ipratropium-albuterol 0.5 mg-3 mg(2.5 mg base)/3 mL solution for nebulization 3 ml inhalation Q4H PRN PRN (Reason: Wheezing) atorvastatin 10 mg tablet 10 mg PO QHS clozapine 100 mg tablet 100 mg PO DAILY fluoxetine [Prozac] 10 mg Capsule 10 mg PO DAILY omeprazole 20 mg Capsule,Delayed Release(Dr/Ec) 20 mg PO DAILY clozapine 200 mg tablet 200 mg PO QHS cholecalciferol (vitamin D3) [Vitamin D3] 125 mcg (5,000 unit) Tablet 125 mcg PO DAILY Referrals / Follow Up: Simone Messer MD [Primary Care Provider] - Within 2 Weeks Disposition Disposition (needs filled in before D/C Order can be placed): Home, Self Care Charges/Coding Visit Charges Inpatient E&M: 00566 Disch Hosp >30min
--- NOTE | 2022-07-06 15:06 | CASEMGMT ---
Addendum entered by Sabrina Aguilar 07/06/22 16:26: Pt guardian called and requested discharge summary be faxed. SW faxed summary to guardian, Domenica Marroquin. Original Note: Social Work? ?? SW informed pt's legal guardian of discharge back to [facility] today via voicemail. Pt LTC- no HENS needed. Pt positive for Covid- no covid test completed. D/C family medicine physician assistant set up cot transport through [facility] for 4:00pm. SW sent all discharge orders to [facility] via [facility] [facility] and notified of transport time. SW also notified pt nurse of transport time. CHIQUI made copies of discharge orders to place on pt chart and put originals in envelope to go with pt.? Disposition: [facility], intermediate level of care? KAYA Ruiz?
[2022-07-06 15:18] VITALS: RESP 18
[2022-07-06 15:28] VITALS: BP 146/82; PULSE 101; RESP 18; TEMP 37; O2SAT 97
== END 2022-07-06 16:18 | disposition skilled nursing facility (03) | DRG 871 ==
LOC: ED 04:53 → ICU 05:34 → MS3 07-05 18:43
PROVIDERS: Admitting Provider Hospitalist; Emergency Provider Emergency Medicine; PCP Family Medicine; Visit Provider Student in an Organized Health Care Education/Training Program
DX: A41.9 Sepsis, unspecified organism (principal); U07.1 COVID-19; N17.9 Acute kidney failure, unspecified; F25.9 Schizoaffective disorder, unspecified; I95.9 Hypotension, unspecified; E11.65 Type 2 diabetes mellitus with hyperglycemia; K52.9 Noninfective gastroenteritis and colitis, unspecified; I10 Essential (primary) hypertension; S01.112A Laceration without foreign body of left eyelid and periocular area, initial encounter; K80.20 Calculus of gallbladder without cholecystitis without obstruction; K21.9 Gastro-esophageal reflux disease without esophagitis; E78.5 Hyperlipidemia, unspecified; W18.30XA Fall on same level, unspecified, initial encounter; E03.9 Hypothyroidism, unspecified; E86.9 Volume depletion, unspecified; Y92.129 Unspecified place in nursing home as the place of occurrence of the external cause; N40.0 Benign prostatic hyperplasia without lower urinary tract symptoms; R53.81 Other malaise; Z23 Encounter for immunization; Z79.890 Hormone replacement therapy; Z79.899 Other long term (current) drug therapy
CPT/HCPCS: 36415; 71045; 74177; 80048; 80053; 81001; 82306; 83036; 83605; 83690; 84484; 85025; 85610; 85730; 87040; 87086; 93005; 97162; 97166; 97535; 99285; J7030; Q9967; A4216; J2405

== ENCOUNTER → 2022-09-30 | Outpatient (CLI) | payer MEDICARE, MEDICAID, SELFPAY ==
--- NOTE | 2022-09-30 15:02 | CT_ITS ---
STUDY: CT ABDOMEN AND PELVIS WITH CONTRAST REASON FOR EXAM: Male, 72 years old. HX RENAL CYSTS-EVAL RADIATION DOSAGE (If Supplied By Facility): CTDIvol = ( 13.51 ) mGy, DLP = ( 766.43 ) mGycm TECHNIQUE: Transaxial images were obtained from the dome of the diaphragm to the symphysis pubis without oral contrast. IV 100mL Isovue-370 was administered. Sagittal and coronal images were reconstructed. Individualized dose optimization techniques were used for this CT. COMPARISON: July 24, 2022 FINDINGS: There is mild atelectasis within the dependent portion of the lower lobes bilaterally.. The visualized portions of the heart are within normal limits. Normal liver. Calcified gallstones are seen without evidence for pericholecystic edema.. Normal spleen. Normal pancreas. Normal bilateral adrenal glands. There is a nonobstructing calculus in the right kidney. There are also 3 large parapelvic cysts in the right kidney.. There is a large simple cyst in left kidney. There is also a small complex cyst or solid nodule in the left kidney measuring approximately 1.6 x 0.9 cm Normal visualized stomach. Normal small intestine. Normal colon. No evidence for acute appendicitis. Mild atherosclerotic changes of the aorta without evidence for aneurysm Normal inferior vena cava. Normal retroperitoneum. Normal urinary bladder. Normal abdominal wall. Lumbar spine demonstrates degenerative changes. No significant change since prior study CT/Abdomen/Pelvis WITH Contrast IMPRESSION: Gallstones without evidence for acute cholecystitis Nonobstructing right renal calculus and 3 simple cysts. Large cyst in left kidney and smaller complex cyst or solid nodule stable in appearance since previous study MRI may be useful for further evaluation if concern for malignancy. Electronically Signed: Arron Wilkinson MD at 16:41 EDT Reading Location ID and State: [facility] / [place] , Service support ,
[2022-09-30 16:09] LABS: CREATININE FINGERSTICK < 0.9 mg/dL (0.70-1.30); EGFR FINGERSTICK > 60.0000 mL/min (>60)
== END | disposition home or self-care (01) ==
LOC: CT 15:01
PROVIDERS: PCP Family Medicine; Referring Provider Family Medicine; Visit Provider Family Medicine
DX: J98.11 Atelectasis (principal); K80.20 Calculus of gallbladder without cholecystitis without obstruction; N20.0 Calculus of kidney; N28.1 Cyst of kidney, acquired; Z87.448 Personal history of other diseases of urinary system
CPT/HCPCS: 74177; Q9967

== ENCOUNTER 2024-03-09 22:46 | Emergency (ER) | payer MEDICARE, MEDICAID, SELFPAY ==
[2024-03-09] VITALS (8 sets, daily range): BP systolic 117–208; BP diastolic 68–182; PULSE 71–80; RESP 16–21; TEMP 36.5–36.6; O2SAT 91–98; BMI 25.2
--- NOTE | 2024-03-09 23:06 | EDS_ITS ---
HPI History of Present Illness Chief Complaint: Mental Status Change Informant: SNF Narrative Narrative: Patient is a 73-year-old male with past medical history of hypothyroidism schizoaffective disorder delusional disorder and BPH who is typically alert and oriented to person only. Reportedly long term where he stays felt that he was displaying increased weakness this evening and they reported that his vitals were abnormal and with this that he was sent in for evaluation. 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 Diabetes Diabetes mellitus, type II Hypertension Home Medications ?Medication ?Instructions ?Recorded ?Last Taken ?Type amlodipine 10 mg tablet 10 mg PO QHS BP 07/30/17 07/11/19 History levothyroxine 25 mcg tablet 50 mcg PO DAILY THYROID 07/30/17 07/11/19 History tamsulosin 0.4 mg capsule 0.4 mg PO QHS PROSTATE 07/30/17 07/11/19 History atorvastatin 10 mg tablet 10 mg PO QHS 07/04/22 Unknown History cholecalciferol (vitamin D3) 125 125 mcg PO DAILY 07/04/22 Unknown History mcg (5,000 unit) tablet (Vitamin D3) clozapine 100 mg tablet 100 mg PO DAILY 07/04/22 Unknown History clozapine 200 mg tablet 200 mg PO QHS 07/04/22 Unknown History fluoxetine 10 mg capsule (Prozac) 10 mg PO DAILY 07/04/22 Unknown History ipratropium 0.5 mg-albuterol 3 mg 3 ml inhalation Q4H PRN PRN 07/04/22 Unknown History (2.5 mg base)/3 mL nebulization Wheezing soln omeprazole 20 mg capsule,delayed 20 mg PO DAILY 07/04/22 Unknown History release ciprofloxacin HCl 500 mg tablet 500 mg PO BID #10 tabs 07/06/22 Unknown Rx metronidazole 500 mg tablet 500 mg PO BID #10 tabs 07/06/22 Unknown Rx levofloxacin 500 mg tablet 500 mg PO DAILY #7 tabs 03/10/24 Unknown Rx Allergy/AdvReac Type Severity Reaction Status Date / Time No Known Allergies Allergy Verified 03/09/24 22:47 Social History Smoking Status: Never smoker ROS ROS ED ROS Narrative Unable to obtain review of systems secondary to patient's history of dementia Review of Systems ROS Unobtainable: due to mental status EXAM Physical Exam Const Vital Signs: 03/09/24 22:48 03/09/24 22:52 Temperature 97.7 F L 97.9 F Temperature Source Axillary Axillary Pulse Rate 80 80 Respiratory Rate 16 21 H Blood Pressure 117/68 117/68 Blood Pressure Mean 84 84 Pulse Ox 93 93 Oxygen Delivery Method Room Air Room Air Positive well nourished and well developed General Appearance ED: well developed; Negative for pallor HEENT HEENT Narrative: Please mucous membranes are mildly dry and tacky No tongue or lip swelling no oral lesions no airway edema or compromise No secondary findings in the posterior pharynx to suggest infection Eyes PERRL and EOMs intact bilaterally General Eye ED: Negative for scleral icterus Neck supple Neck Narrative: No nuchal rigidity or meningeal signs Chest Wall palpation of chest normal Resp normal respiratory effort and clear to auscultation bilaterally Resp Narrative: No nasal flaring retractions tachypnea or accessory muscle use Cardio regular rate and regular rhythm GI normal to inspection, nondistended, normoactive bowel sounds, non-tender, non- distended and no masses GI Narrative: No pulsatile mass or fluid wave Auscultation: normoactive bowel sounds Palpation: soft Extremity normal to inspection Neuro Neuro Narrative: GCS of 14; patient has eyes closed but will open them to voice Patient is at his baseline mental status which is alert and oriented person only No obvious focal neurologic deficit Skin no rashes or lesions noted and no wounds General Skin Exam: Negative for pallor MDM MDM MDM Narrative Medical decision making narrative: Patient arrived to the ER at his baseline mental status. longterm reported that his vitals were deranged with low room air pulse ox and hypotension. However in the ER without any intervention his blood pressure is normal he is afebrile his pulse ox on room air is in the low to mid 90s and the patient does not have any increased work of breathing. With the reported worsening mental status and abnormal vitals there is concern he is septic that he may have a UTI or pneumonia or viral infection such as COVID influenza or RSV. Viral swab was negative. Laboratory studies show a white count of 14.6 with left shift however the remainder the labs revealed no clinically significant finding. Urine sample was negative as a source of infection but chest x-ray did reveal a left lower lobe infiltrate. At this time the patient is not displaying signs of respiratory distress he is not have increased work of breathing his pulse ox is in the mid 90s on room air and he is not requiring supplemental oxygen. Therefore I do not feel there is need for admission. The patient will be placed on oral Levaquin to cover for his pneumonia but without respiratory distress or need for supplemental oxygen he can return to the long term to take his medication orally. Lab Data Attestation: I reviewed the patient's lab results. Labs: Laboratory Results - last 24 hr 03/09/24 03/09/24 23:00 23:22 WBC 14.6 H RBC 4.93 Hgb 14.9 Hct 44.4 MCV 90.1 MCH 30.2 MCHC 33.6 RDW Std Deviation 41.5 RDW Coeff of Kirk 12.6 Plt Count 218 MPV 10.2 Immature Gran % (Auto) 1.000 H Neut % (Auto) 68.1 Lymph % (Auto) 20.5 [place] % (Auto) 7.8 Eos % (Auto) 2.1 Baso % (Auto) 0.5 Absolute Neuts (auto) 9.9 H Absolute Lymphs (auto) 2.98 Nucleated RBC % 0 Sodium 140 Potassium 4.1 Chloride 110 H Carbon Dioxide 26.0 Anion Gap 4 L BUN 39 H Creatinine 1.43 H Estim Creat Clear Calc 44.63 Est GFR (MDRD) Af Amer 62 Est GFR (MDRD) Non-Af 51 L BUN/Creatinine Ratio 27.3 H Glucose 134 H Calcium 8.9 Total Bilirubin 0.60 Direct Bilirubin 0.21 AST 9 L ALT 12 L Alkaline Phosphatase 73 Total Protein 7.1 Albumin 3.3 Globulin 3.8 TSH 1.300 Urine Color Yellow Urine Clarity Clear Urine pH 5.0 Ur Specific [place] 1.025 Urine Protein 15 H Urine Glucose (UA) Normal Urine Ketones Negative Urine Occult Blood Negative Urine Nitrite Negative Urine Bilirubin Negative Urine Urobilinogen Normal Ur Leukocyte Esterase 25 H Urine RBC 0 SEEN Urine WBC 0 SEEN Ur Squamous Epith Cells 0 SEEN Urine Bacteria 0 SEEN Urine Mucus 0 SEEN Radiography Diagnostic Testing: Clinical Impression(s) from Imaging Studies Chest X-Ray 03/09/24 23:10 IMPRESSION: 1. Retrocardiac LEFT lower lobe infiltrate. 2. No evidence of congestive failure. Electronically Signed: Rudi Amaya MD at 23:39 EST Reading Location ID and State: [address] [place] [address] Tel , Service support , 1 view chest x-ray as interpreted by the emergency medicine physician reveals hazy opacity along the left lower lobe concerning for developing pneumonia Discharge Plan Triage Chief Complaint: Mental Status Change ED Provider: Jose Taveras Dx/Rx/DC Orders Clinical Impression: Pneumonia, Schizoaffective disorder, Dementia, Hypothyroidism Instructions: When You Have Pneumonia, ED Pneumonia (Adult) Prescriptions: New levofloxacin 500 mg tablet 500 mg PO DAILY Qty: 7 0RF No Action levothyroxine 25 MCG tablet 50 mcg PO DAILY tamsulosin 0.4 MG capsule 0.4 mg PO QHS amlodipine 10 MG tablet 10 mg PO QHS ipratropium-albuterol 0.5 mg-3 mg(2.5 mg base)/3 mL solution for nebulization 3 ml inhalation Q4H PRN PRN (Reason: Wheezing) atorvastatin 10 mg tablet 10 mg PO QHS clozapine 100 mg tablet 100 mg PO DAILY fluoxetine [Prozac] 10 mg Capsule 10 mg PO DAILY omeprazole 20 mg Capsule,Delayed Release(Dr/Ec) 20 mg PO DAILY clozapine 200 mg tablet 200 mg PO QHS cholecalciferol (vitamin D3) [Vitamin D3] 125 mcg (5,000 unit) Tablet 125 mcg PO DAILY ciprofloxacin HCl 500 mg tablet 500 mg PO BID Qty: 10 0RF metronidazole 500 mg tablet 500 mg PO BID Qty: 10 0RF Primary Care Provider: Simone Messer Referrals: Simone Messer MD [Primary Care Provider] - Activity Restrictions/Additional Instructions: Your x-ray did show developing pneumonia. Take the antibiotic as directed to resolve this. However as your workup is not showing signs of sepsis and you are not requiring oxygen he can be treated as an outpatient Print Language: Mosotho Disposition Disposition: Home, Self Care
--- NOTE | 2024-03-09 23:10 | RAD_ITS ---
INDICATION: cough EXAMINATION/TECHNIQUE: X-RAY - XR Chest 1 View COMPARISON: 07/04/2022 FINDINGS: LIFE-SUPPORT AND LINES: 1. None HEART AND VESSELS: The cardiac silhouette, pulmonary vasculature have normal appearance. No evidence of congestive failure. LUNGS AND PLEURAL SPACES: There is shallow inspiration crowding of bronchovascular markings however retrocardiac LEFT lower lobe infiltrate is noted. Remaining lung zones clear. No pulmonary mass is noted. MEDIASTINUM AND HILAR REGIONS: No masses adenopathy noted. No areas of calcification. Visualized upper airway is normal in position. BONY ELEMENTS: No acute bony changes noted. RAD/Chest 1 View (Portable) IMPRESSION: 1. Retrocardiac LEFT lower lobe infiltrate. 2. No evidence of congestive failure. Electronically Signed: Rudi Amaya MD at 23:39 EST ,
[2024-03-09 23:12] LABS: Absolute Lymphocyte Count 2.98 X10^3/uL (0.83-4.51); Absolute Neutrophil Count 9.9 X10^3/uL (2.0-7.7); Basophil# 0.07 X10^3/uL; Basophil% 0.5 % (0-1); Eosinophils% 2.1 % (0-5); Hematocrit 44.4 % (40-54); Hemoglobin 14.9 g/dL (13.0-16.5); Lymphocyte # 2.98 X10^3/ul (0.83-4.51); Lymphocyte % 20.5 % (19-41); Mean Corp Hgb Conc 33.6 g/dL (32-36); Mean Corpuscular Hgb 30.2 pg (27.0-32.0); Mean Corpuscular Volume 90.1 fL (80-94); Mean Platelet Vol. 10.2 fl (6.2-12.0); Monocyte# 1.14 X10^3/uL; Monocyte% 7.8 % (0-10); NRBC Flagged by Analyzer 0 % (0-5); Neutrophil # 9.92 X10^3/uL (2.7-7.7); Neutrophil % 68.1 % (47-70); Platelet Count 218 K/mm3 (150-450); RBC Distribution Width CV 12.6 % (11.6-14.6); RBC Distribution Width SD 41.5 fl (35.1-43.9); Red Blood Count 4.93 M/mm3 (4.6-6.2); White Blood Count 14.6 K/mm3 (4.4-11.0)
[2024-03-09 23:28] LABS: Bacteria 0 SEEN /hpf (None Seen); Mucous, Urine 0 SEEN /hpf (<or=2+); Red Blood Cells-Urine 0 SEEN /hpf (0-5); Squamous Epithelial Cells - UA 0 SEEN /hpf (0-5); White Blood Cells 0 SEEN /hpf (0-5)
[2024-03-09 23:30] LABS: Color, Urine Yellow (Yellow); Glucose, Dipstick Normal (Normal); Ketone-Dipstick Negative (Negative); Leukocyte Esterase-Dipstick 25 /ul (Negative); Nitrite-Dipstick Negative (Negative); Occult Blood-Urine Negative /ul (Negative); Protein-Dipstick 15 mg/dl (Negative); Specific Gravity, Urine 1.025 (1.002-1.030); Urine Bilirubin Dipstick Negative (Negative); Urine Clarity Clear (Clear); Urine Urobilinogen Normal (Normal)
[2024-03-09 23:37] LABS: AST(SGOT) 9 U/L (15-37); Alanine Aminotransfer ALT/SGPT 12 U/L (16-61); Albumin, Serum 3.3 g/dL (3.2-5.0); Alkaline Phosphatase 73 U/L (45-117); Anion Gap 4 (5-15); BUN 39 mg/dL (7-18); BUN/Creat Ratio 27.3 RATIO (10-20); Bilirubin, Direct 0.21 mg/dL (0.00-0.30); Calcium,Total 8.9 mg/dL (8.5-10.1); Chloride 110 mmol/L (98-107); Creatinine, Serum 1.43 mg/dL (0.70-1.30); EST Glomerular Filtration Rate 51 mL/min (>60); Est Glom Filt Rate - Afr Amer 62 mL/min (>60); Estimated Creatinine Clearance 44.63 ml/min; Globulin 3.8 g/dL (2.2-4.2); Glucose 134 mg/dL (74-106); Potassium 4.1 mmol/L (3.5-5.1); Protein, Total 7.1 g/dL (6.4-8.2); Sodium Level 140 mmol/L (136-145)
[2024-03-10] VITALS (12 sets, daily range): BP systolic 104–132; BP diastolic 70–78; PULSE 67–88; RESP 16–18; TEMP 36.6; O2SAT 94–99
[2024-03-10] MEDS: 0.9% Normal Saline (1000mL) 1,000 ML 999 ML IV (00:03)
[2024-03-10] MEDS: levoFLOXacin IV 750 MG/150 ML BAG 100 MG IV (00:03)
--- NOTE | 2024-03-10 00:37 | ED.RN ---
GUARDIAN CALLED AND LEFT MESSAGE FOR PERMISSION TO TREAT ON PT'S PHONE.
--- NOTE | 2024-03-10 01:31 | ED.RN ---
CALLED [facility], SPOKE TO MANOJ. ETA FOR PICKUP IS 2-3 HOURS ([phone]).
--- NOTE | 2024-03-10 01:49 | ED.RN ---
REPORT CALLED TO DIVINE NURSE, ISREAL, AT THIS TIME.
== END 2024-03-10 03:23 | disposition home or self-care (01) ==
PROVIDERS: Emergency Provider Emergency Medicine; PCP Family Medicine; Visit Provider Emergency Medicine
DX: J18.9 Pneumonia, unspecified organism (principal); F25.9 Schizoaffective disorder, unspecified; F22 Delusional disorders; F03.90 Unspecified dementia, unspecified severity, without behavioral disturbance, psychotic disturbance, mood disturbance, and anxiety; E03.9 Hypothyroidism, unspecified; I10 Essential (primary) hypertension; Z79.890 Hormone replacement therapy; Z79.899 Other long term (current) drug therapy; Z86.16 Personal history of COVID-19
CPT/HCPCS: 71045; 80048; 80076; 81001; 84443; 85025; 87631; 96365; 96366; 99285; P9612; A4216

== ENCOUNTER 2024-03-19 10:31 | Inpatient (IN) | payer MEDICARE, MEDICAID, SELFPAY ==
[2024-03-19] VITALS (19 sets, daily range): BP systolic 78–111; BP diastolic 43–92; PULSE 95–135; RESP 16–28; TEMP 36.6–37.7; O2SAT 92–98; BMI 26.4; BMI 25.3
--- NOTE | 2024-03-19 11:15 | RAD_ITS ---
EXAM: XR CHEST, 1 VIEW CLINICAL INDICATION: Shortness of breath TECHNIQUE: Frontal view of the chest. COMPARISON: XR Chest dated 03/09/2024 FINDINGS: LUNGS AND PLEURAL SPACES: New area of airspace opacification involves the right middle and lower lobes of the lung suggestive of pneumonia. Minimal infiltrate or atelectasis left lung base. HEART: Normal heart size. MEDIASTINUM: No mediastinal or hilar mass. BONES/JOINTS: No acute abnormality. RAD/Chest 1 View (Portable) IMPRESSION: New area of airspace opacification involves the right middle and lower lobes of the lung suggestive of pneumonia. Electronically Signed: Marky Jhaveri MD at 11:51 EST ,
--- NOTE | 2024-03-19 11:29 | EDS_ITS ---
HPI History of Present Illness Chief Complaint: Shortness of Breath Narrative Narrative: Chief complaint and HPI: Shortness of breath and hypoxia. 73-year-old male with past medical history of schizoaffective disorder with delusional disorder, DM, hypothyroidism, HTN, chronic hypoxia on 3 L nasal cannula at baseline presents from [facility] for evaluation of acute on chronic hypoxia and shortness of breath. Due to his schizoaffective disorder with delusional disord er patient is unable to provide history. He is alert and oriented to self only. This is his baseline per report. History taken via report. Per report, patient endorsed shortness of breath today. He was found to be hypoxic with saturations in the 70s on his baseline 3 L nasal cannula. He was increased to 5 L nasal cannula and EMS was called. On chart review, patient was seen in our emergency department on 03/09 and diagnosed with a left lower lobe pneumonia. He was discharged home on a 7-day course of Levaquin. Review of systems: See HPI Medications: As listed on the chart Allergies: As listed on the chart PFSH: Per chart Vital signs: As listed on the chart. Reviewed. Physical exam: Gen: Alert, oriented to self only Head: Normocephalic, atraumatic Eyes: No sclera icterus, conjunctiva clear, PERRL, EOMI ENT: Dry t mucous membranes Neck: Trachea midline, No JVD CV: Tachycardic, regular rhythm, no murmurs, no peripheral edema Resp: Lungs diminished in the bilateral bases, no wheezing, on baseline 3 L nasal cannula GI: Abd soft, non-distended, non-tender, no r/r/g Musc: Moves all extremities, no deformity Skin: Warm, dry Neuro: Alert, grossly intact [facility] Medical History Neoplasm of right kidney Dementia COVID Fall Benign prostatic hyperplasia without lower urinary tract symptoms Drug induced subacute dyskinesia Unspecified dementia, unspecified severity, without behavioral disturbance, psychotic disturbance, mood disturbance, and anxiety Hypothyroidism 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 Depression Diabetic myelopathy due to secondary diabetes mellitus Diabetes Diabetes mellitus, type II Hypertension Home Medications ?Medication ?Instructions ?Recorded ?Last Taken ?Type amlodipine 10 mg tablet 10 mg PO QHS BP 07/30/17 07/11/19 History levothyroxine 25 mcg tablet 50 mcg PO DAILY THYROID 07/30/17 07/11/19 History tamsulosin 0.4 mg capsule 0.4 mg PO QHS PROSTATE 07/30/17 07/11/19 History atorvastatin 10 mg tablet 10 mg PO QHS 07/04/22 Unknown History cholecalciferol (vitamin D3) 125 125 mcg PO DAILY 07/04/22 Unknown History mcg (5,000 unit) tablet (Vitamin D3) clozapine 100 mg tablet 100 mg PO DAILY 07/04/22 Unknown History clozapine 200 mg tablet 200 mg PO QHS 07/04/22 Unknown History fluoxetine 10 mg capsule (Prozac) 10 mg PO DAILY 07/04/22 Unknown History ipratropium 0.5 mg-albuterol 3 mg 3 ml inhalation Q4H PRN PRN 07/04/22 Unknown History (2.5 mg base)/3 mL nebulization Wheezing soln omeprazole 20 mg capsule,delayed 20 mg PO DAILY 07/04/22 Unknown History release ciprofloxacin HCl 500 mg tablet 500 mg PO BID #10 tabs 07/06/22 Unknown Rx metronidazole 500 mg tablet 500 mg PO BID #10 tabs 07/06/22 Unknown Rx levofloxacin 500 mg tablet 500 mg PO DAILY #7 tabs 03/10/24 Unknown Rx Allergy/AdvReac Type Severity Reaction Status Date / Time No Known Allergies Allergy Verified 03/09/24 22:47 Social History Smoking Status: Never smoker EXAM Physical Exam Const Vital Signs: 03/19/24 10:32 03/19/24 10:32 03/19/24 11:02 Temperature 99.7 F H Temperature Source Oral Pulse Rate 135 H 130 H Respiratory Rate 20 H 18 Blood Pressure 104/92 H 104/92 H Blood Pressure Mean 96 96 Pulse Ox 93 94 Oxygen Delivery Method Nasal Cannula Nasal Cannula Room Air Oxygen Flow Rate (L/min) 4 3 03/19/24 11:02 03/19/24 11:37 03/19/24 11:51 Temperature 99.8 F H Temperature Source Oral Pulse Rate 115 H 114 H Respiratory Rate 18 20 H Blood Pressure 105/78 Blood Pressure Mean 87 Pulse Ox 92 Oxygen Delivery Method Nasal Cannula Room Air Oxygen Flow Rate (L/min) 3 03/19/24 12:15 03/19/24 12:31 Temperature 99.9 F H 99.8 F H Temperature Source Temporal Oral Pulse Rate 108 H 100 Respiratory Rate 20 H 18 Blood Pressure 106/71 106/78 Blood Pressure Mean 82 87 Pulse Ox 95 96 Oxygen Delivery Method Nasal Cannula Nasal Cannula Oxygen Flow Rate (L/min) 4 4 MDM MDM MDM Narrative Medical decision making narrative: 73-year-old male with past medical history of schizoaffective disorder with delusional disorder, DM, hypothyroidism, HTN, chronic hypoxia on 3 L nasal cannula at baseline presents from [facility] for evaluation of acute on chronic hypoxia and shortness of breath. Patient is poor historian. On arrival patient has soft blood pressure, tachycardia, tachypnea, and temperature of 99.7 ?F. He is on his baseline 3 L nasal cannula. He had an episode of hypotension with SBP into the 80s however this improved without intervention. Patient does appear dry on exam. However with his recent pneumonia diagnosis patient meets sepsis criteria. NS bolus, DuoNeb, Tylenol ordered for symptoms. Sepsis workup ordered. Patient given prophylaxis with erythromycin and Rocephin for suspected community-acquired pneumonia. EKG reviewed. CBC with leukocytosis of 13.2. Coagulation panel unremarkable. CMP shows HAYLIE with creatinine of 2.11. Fluids running. No transaminitis. Troponin unremarkable. Chest x-ray reviewed, patient has right-sided pneumonia. Patient already received antibiotics. Lactic acid 6.5. On reevaluation heart rate improving. Blood pressure improving. Patient on baseline 3 L nasal cannula. Patient will warrant admission. I spoke with the hospitalist service about 30 cc/kg bolus of fluids and they agree given improved blood pressure to hold off on further fluids at this time therefore patient has only received 1 L fluid. Patient accepted for admission. EKG: Interpreted by me/EM physician: EKG shows sinus tachycardia with nonspecific ST changes. Heart rate 132. Diagnostic: Interpreted by me/EM physician: Right middle and lower lobe pneumonia. New from previous chest x-ray. No effusion or pneumothorax. Impression: 1. Sepsis secondary to right-sided pneumonia 2. HAYLIE 3. Lactic acidosis Lab Data Labs: Laboratory Results - last 24 hr 03/19/24 03/19/24 11:13 11:50 WBC 13.2 H RBC 5.18 Hgb 15.8 Hct 47.1 MCV 90.9 MCH 30.5 MCHC 33.5 RDW Std Deviation 42.5 RDW Coeff of Kirk 12.8 Plt Count 182 MPV 10.5 Immature Gran % (Auto) 1.600 H Neut % (Auto) 92.5 H Lymph % (Auto) 2.0 L Crane % (Auto) 3.3 Eos % (Auto) 0.1 Baso % (Auto) 0.5 Absolute Neuts (auto) 12.3 H Absolute Lymphs (auto) 0.26 L Nucleated RBC % 0 PT 13.7 INR 1.0 APTT 24.5 Sodium 139 Potassium 3.9 Chloride 108 H Carbon Dioxide 19.0 L Anion Gap 12 BUN 37 H Creatinine 2.11 H Estim Creat Clear Calc 30.25 Est GFR (MDRD) Af Amer 40 L Est GFR (MDRD) Non-Af 33 L BUN/Creatinine Ratio 17.5 Glucose 219 H Lactic Acid 6.5 H* Calcium 8.2 L Total Bilirubin 0.80 AST 9 L ALT 11 L Alkaline Phosphatase 63 Troponin I High Sens 14 Total Protein 6.7 Albumin 3.1 L Globulin 3.6 Albumin/Globulin Ratio 0.9 Radiography Diagnostic Testing: Clinical Impression(s) from Imaging Studies Chest X-Ray 03/19/24 11:15 IMPRESSION: New area of airspace opacification involves the right middle and lower lobes of the lung suggestive of pneumonia. Electronically Signed: Marky Jhaveri MD at 11:51 EST , Discharge Plan Triage Chief Complaint: Shortness of Breath ED Provider: Shon Hoskins Dx/Rx/DC Orders Prescriptions: No Action levothyroxine 25 MCG tablet 50 mcg PO DAILY tamsulosin 0.4 MG capsule 0.4 mg PO QHS amlodipine 10 MG tablet 10 mg PO QHS ipratropium-albuterol 0.5 mg-3 mg(2.5 mg base)/3 mL solution for nebulization 3 ml inhalation Q4H PRN PRN (Reason: Wheezing) atorvastatin 10 mg tablet 10 mg PO QHS clozapine 100 mg tablet 100 mg PO DAILY fluoxetine [Prozac] 10 mg Capsule 10 mg PO DAILY omeprazole 20 mg Capsule,Delayed Release(Dr/Ec) 20 mg PO DAILY clozapine 200 mg tablet 200 mg PO QHS cholecalciferol (vitamin D3) [Vitamin D3] 125 mcg (5,000 unit) Tablet 125 mcg PO DAILY ciprofloxacin HCl 500 mg tablet 500 mg PO BID Qty: 10 0RF metronidazole 500 mg tablet 500 mg PO BID Qty: 10 0RF levofloxacin 500 mg tablet 500 mg PO DAILY Qty: 7 0RF Primary Care Provider: Simone Messer Referrals: Simone Messer MD [Primary Care Provider] - Print Language: Turkish
[2024-03-19 11:31] LABS: Absolute Lymphocyte Count 0.26 X10^3/uL (0.83-4.51); Absolute Neutrophil Count 12.3 X10^3/uL (2.0-7.7); Basophil# 0.07 X10^3/uL; Basophil% 0.5 % (0-1); Eosinophil# 0.01 X10^3/uL; Eosinophils% 0.1 % (0-5); Hematocrit 47.1 % (40-54); Hemoglobin 15.8 g/dL (13.0-16.5); Lymphocyte # 0.26 X10^3/ul (0.83-4.51); Mean Corp Hgb Conc 33.5 g/dL (32-36); Mean Corpuscular Hgb 30.5 pg (27.0-32.0); Mean Corpuscular Volume 90.9 fL (80-94); Mean Platelet Vol. 10.5 fl (6.2-12.0); Monocyte# 0.44 X10^3/uL; Monocyte% 3.3 % (0-10); NRBC Flagged by Analyzer 0 % (0-5); Neutrophil # 12.25 X10^3/uL (2.7-7.7); Neutrophil % 92.5 % (47-70); POSITIVE DIFFERENTIAL YES; Platelet Count 182 K/mm3 (150-450); RBC Distribution Width CV 12.8 % (11.6-14.6); RBC Distribution Width SD 42.5 fl (35.1-43.9); Red Blood Count 5.18 M/mm3 (4.6-6.2); White Blood Count 13.2 K/mm3 (4.4-11.0)
[2024-03-19 11:33] LABS: Differential Indicated SCAN CRITERIA MET
[2024-03-19 11:41] LABS: Prothrombin Time (Protime)PT. 13.7 SECONDS (11.7-14.9)
[2024-03-19 11:42] LABS: Partial Thromboplast Time 24.5 Seconds (24.1-36.2)
[2024-03-19 11:49] LABS: ALB/GLOB Ratio 0.9 RATIO (0.9-2.4); AST(SGOT) 9 U/L (15-37); Alanine Aminotransfer ALT/SGPT 11 U/L (16-61); Albumin, Serum 3.1 g/dL (3.2-5.0); Alkaline Phosphatase 63 U/L (45-117); Anion Gap 12 (5-15); BUN 37 mg/dL (7-18); BUN/Creat Ratio 17.5 RATIO (10-20); Calcium,Total 8.2 mg/dL (8.5-10.1); Chloride 108 mmol/L (98-107); Creatinine, Serum 2.11 mg/dL (0.70-1.30); EST Glomerular Filtration Rate 33 mL/min (>60); Est Glom Filt Rate - Afr Amer 40 mL/min (>60); Estimated Creatinine Clearance 30.25 ml/min; Globulin 3.6 g/dL (2.2-4.2); Glucose 219 mg/dL (74-106); Potassium 3.9 mmol/L (3.5-5.1); Protein, Total 6.7 g/dL (6.4-8.2); Sodium Level 139 mmol/L (136-145); Troponin-I HS 14 pg/mL (3.0-78.0)
[2024-03-19] MEDS: 0.9% Normal Saline (1000mL) 1,000 ML 999 ML IV ×2 (11:49→16:14)
[2024-03-19] MEDS: Ipratropium/Albuterol Sulfate 3 ML AMPUL.NEB INHALATION (11:49)
[2024-03-19] MEDS: Ceftriaxone 1 GM/50 ML BAG IV (12:03)
[2024-03-19] MEDS: Azithromycin 500 MG in 0.9% Normal Saline (250mL Bag) 250 ML 255 MG IV (12:15)
[2024-03-19 13:00] LABS: Lactic Acid 6.5 mmol/L (0.4-1.9)
--- NOTE | 2024-03-19 13:03 | ED.RN ---
DR. DAMON SPEAKS WITH DR. TAM STATES DOES NOT WANT A BUNCH OF FLUIDS ORDER
[2024-03-19 16:11] LABS: Reflex Lactate? Y
[2024-03-19 17:18] LABS: Lactic Acid 4.3 mmol/L (0.4-1.9)
[2024-03-19] MEDS: 0.9% Normal Saline (500mL Bag) 500 ML IV (17:53)
[2024-03-19] MEDS: 0.9% Normal Saline (1000mL) 1,000 ML 75 ML IV (18:58)
--- NOTE | 2024-03-19 20:01 | PCM.HP.STD ---
HPI - General General Date of Admission: 03/19/24 HPI Narrative ALLAN LARA, is a 73 M who presents from the halfway with shortness of breath and hypoxia. He has a baseline history of dementia and does not provide much other than yes and no answers. He is normally on 3 L nasal cannula at baseline but today he was found to be 70% on his baseline oxygen. Currently on 4 L nasal cannula. He was found to have sepsis due to pneumonia, he was recently seen on 03/09/2024 for a left lower lobe pneumonia and was placed on Levaquin for 7 days. Current chest x-ray demonstrates new areas of opacification in the right middle and lower lobes of the lung consistent with pneumonia. White count is 13 with an HAYLIE to 2.11 and a lactic acid initially of 6.5 improved to 4.3. [facility] Medical History Neoplasm of right kidney Dementia COVID Fall Benign prostatic hyperplasia without lower urinary tract symptoms Drug induced subacute dyskinesia Unspecified dementia, unspecified severity, without behavioral disturbance, psychotic disturbance, mood disturbance, and anxiety Hypothyroidism 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 Depression Diabetic myelopathy due to secondary diabetes mellitus Diabetes Diabetes mellitus, type II Hypertension Home Medications ?Medication ?Instructions ?Recorded ?Last Taken ?Type amlodipine 10 mg tablet 10 mg PO QHS BP 07/30/17 07/11/19 History levothyroxine 25 mcg tablet 50 mcg PO DAILY THYROID 07/30/17 07/11/19 History tamsulosin 0.4 mg capsule 0.4 mg PO QHS PROSTATE 07/30/17 07/11/19 History atorvastatin 10 mg tablet 10 mg PO QHS cholesterol 07/04/22 Unknown History cholecalciferol (vitamin D3) 125 125 mcg PO DAILY . 07/04/22 Unknown History mcg (5,000 unit) tablet (Vitamin D3) clozapine 200 mg tablet 200 mg PO QHS anxiety 07/04/22 Unknown History fluoxetine 10 mg capsule (Prozac) 20 mg PO DAILY anxiety 07/04/22 Unknown History ipratropium 0.5 mg-albuterol 3 mg 3 ml inhalation Q4H PRN PRN 07/04/22 Unknown History (2.5 mg base)/3 mL nebulization Wheezing soln omeprazole 20 mg capsule,delayed 20 mg PO DAILY gerd 07/04/22 Unknown History release lorazepam 0.5 mg tablet 0.5 mg PO DAILY anxiety 03/19/24 Unknown History lorazepam 1 mg tablet 1 mg PO BID anxiety 03/19/24 Unknown History Allergy/AdvReac Type Severity Reaction Status Date / Time No Known Allergies Allergy Verified 03/09/24 22:47 unable to obtain unable to obtain Social History Smoking Status: Never smoker ROS Review of Systems ROS Unobtainable: due to mental status Vital Signs Vital Signs Vital Signs: 03/19/24 10:32 03/19/24 10:32 03/19/24 11:02 Temperature 99.7 F H Temperature Source Oral Pulse Rate 135 H 130 H Respiratory Rate 20 H 18 Respiratory Effort Respiratory Depth Respiratory Pattern Blood Pressure 104/92 H 104/92 H Blood Pressure Mean 96 96 Blood Pressure Source Blood Pressure Position Blood Pressure Location Pulse Ox 93 94 Oxygen Delivery Method Nasal Cannula Nasal Cannula Room Air Oxygen Flow Rate (L/min) 4 3 03/19/24 11:02 03/19/24 11:37 03/19/24 11:51 Temperature 99.8 F H Temperature Source Oral Pulse Rate 115 H 114 H Respiratory Rate 18 20 H Respiratory Effort Respiratory Depth Respiratory Pattern Blood Pressure 105/78 Blood Pressure Mean 87 Blood Pressure Source Blood Pressure Position Blood Pressure Location Pulse Ox 92 Oxygen Delivery Method Nasal Cannula Room Air Oxygen Flow Rate (L/min) 3 03/19/24 12:15 03/19/24 12:31 03/19/24 13:01 Temperature 99.9 F H 99.8 F H 99.9 F H Temperature Source Temporal Oral Oral Pulse Rate 108 H 100 104 H Respiratory Rate 20 H 18 18 Respiratory Effort Respiratory Depth Respiratory Pattern Blood Pressure 106/71 106/78 91/78 Blood Pressure Mean 82 87 82 Blood Pressure Source Blood Pressure Position Blood Pressure Location Pulse Ox 95 96 94 Oxygen Delivery Method Nasal Cannula Nasal Cannula Nasal Cannula Oxygen Flow Rate (L/min) 4 4 4 03/19/24 13:03 03/19/24 13:18 03/19/24 13:33 Temperature 99.4 F H 99.7 F H 99.9 F H Temperature Source Oral Oral Temporal Pulse Rate 104 H 98 101 H Respiratory Rate 18 16 16 Respiratory Effort Respiratory Depth Respiratory Pattern Blood Pressure 101/78 108/76 99/76 Blood Pressure Mean 85 86 83 Blood Pressure Source Blood Pressure Position Blood Pressure Location Pulse Ox 94 93 93 Oxygen Delivery Method Nasal Cannula Nasal Cannula Nasal Cannula Oxygen Flow Rate (L/min) 4 4 4 03/19/24 13:48 03/19/24 14:03 03/19/24 15:11 Temperature 99.9 F H 98.9 F 99.1 F Temperature Source Oral Oral Pulse Rate 101 H 106 H 101 H Respiratory Rate 16 18 18 Respiratory Effort Respiratory Depth Respiratory Pattern Blood Pressure 89/55 L 86/65 L 93/61 Blood Pressure Mean 66 72 71 Blood Pressure Source Blood Pressure Position Blood Pressure Location Pulse Ox 92 93 94 Oxygen Delivery Method Nasal Cannula Nasal Cannula Oxygen Flow Rate (L/min) 4 03/19/24 16:04 03/19/24 16:15 03/19/24 16:48 Temperature 99.6 F H 99.1 F Temperature Source Temporal Temporal Pulse Rate 106 H 101 H Respiratory Rate 28 H 24 H Respiratory Effort Short of Breath Respiratory Depth Respiratory Pattern Blood Pressure 78/43 L 94/51 L Blood Pressure Mean 54 65 Blood Pressure Source Monitor Monitor Blood Pressure Position Supine Semi-Fowlers Blood Pressure Location Right Arm Right Arm Pulse Ox 95 95 Oxygen Delivery Method Nasal Cannula Nasal Cannula Nasal Cannula Oxygen Flow Rate (L/min) 4 4 4 03/19/24 17:19 03/19/24 18:16 03/19/24 19:39 Temperature 98 F 99.0 F 99.7 F H Temperature Source Temporal Temporal Temporal Pulse Rate 101 H 107 H 105 H Respiratory Rate 28 H 20 H 22 H Respiratory Effort Respiratory Depth Respiratory Pattern Blood Pressure 88/54 L 95/58 L 111/75 Blood Pressure Mean 65 70 87 Blood Pressure Source Monitor Monitor Monitor Blood Pressure Position Semi-Fowlers Left Lateral Supine Blood Pressure Location Right Arm Right Arm Right Arm Pulse Ox 94 95 95 Oxygen Delivery Method Nasal Cannula Nasal Cannula Nasal Cannula Oxygen Flow Rate (L/min) 4 03/19/24 19:50 Temperature Temperature Source Pulse Rate Respiratory Rate Respiratory Effort Short of Breath Respiratory Depth Shallow Respiratory Pattern Tachypnea Blood Pressure Blood Pressure Mean Blood Pressure Source Blood Pressure Position Blood Pressure Location Pulse Ox Oxygen Delivery Method Nasal Cannula Oxygen Flow Rate (L/min) 4 Weight Weight: 171 lb 6.4 oz Body Mass Index (BMI) 25.3 Physical Exam Narrative General: Alert, confused, Cooperative, No apparent distress HEENT: Atraumatic, PERRLA, EOMI, Normocephalic Oral: Moist Mucosa Neck: Supple, No JVD Lungs: Diminished, Normal air movement, No rhonchi, No wheeze, right sided rales Cardiovascular: Tachycardic, Regular Rhythm, Normal S1, Normal S2, No murmurs Abdomen: Soft, Non Tender, Non-Distended, No Hepato-splenomegaly Extremities: No edema, Capillary Refill Less than 3 Seconds Skin: No rashes, No breakdown Musculoskeletal: No Tenderness to Palpation of Joints or Extremities Neurological: No focal neurological deficits, moves all extremities, does not follow exam cues Psych/Mental Status: Flat Results Lab / Micro Data 03/19/24 11:13 03/19/24 11:13 Labs: Laboratory Results - last 24 hr 03/19/24 11:13: WBC 13.2 H, RBC 5.18, Hgb 15.8, Hct 47.1, MCV 90.9, MCH 30.5, MCHC 33.5, RDW Std Deviation 42.5, RDW Coeff of Kirk 12.8, Plt Count 182, MPV 10.5, Immature Gran % (Auto) 1.600 H, Neut % (Auto) 92.5 H, Lymph % (Auto) 2.0 L, Mccormick % (Auto) 3.3, Eos % (Auto) 0.1, Baso % (Auto) 0.5, Absolute Neuts (auto) 12.3 H, Absolute Lymphs (auto) 0.26 L, Nucleated RBC % 0, PT 13.7, INR 1.0, APTT 24.5, Sodium 139, Potassium 3.9, Chloride 108 H, Carbon Dioxide 19.0 L, Anion Gap 12, BUN 37 H, Creatinine 2.11 H, Estim Creat Clear Calc 30.25, Est GFR (MDRD) Af Amer 40 L, Est GFR (MDRD) Non-Af 33 L, BUN/Creatinine Ratio 17.5, Glucose 219 H, Calcium 8.2 L, Total Bilirubin 0.80, AST 9 L, ALT 11 L, Alkaline Phosphatase 63, Troponin I High Sens 14, Total Protein 6.7, Albumin 3.1 L, Globulin 3.6, Albumin/Globulin Ratio 0.9 03/19/24 11:50: Lactic Acid 6.5 H* 03/19/24 16:30: Lactic Acid 4.3 H* Micro: Microbiology 03/19/24 11:50 Mucosa - Nasopharyngeal SARS-CoV-2, Influenza & RSV (PCR) - Final Imaging Radiology Impression Chest X-Ray 03/19/24 11:15 IMPRESSION: New area of airspace opacification involves the right middle and lower lobes of the lung suggestive of pneumonia. Electronically Signed: Marky Jhaveri MD at 11:51 EST Reading Location ID and State: [facility] / [place] Tel , Service support , Assessment & Plan Assessment/Plan (1) Sepsis: (2) Pneumonia: PLAN: Plan 1. Sepsis secondary to right lower and middle lobe pneumonia ? Concern for possible aspiration will do the dysphagia screen ? If he fails we will plan for speech therapy and hold his oral medications ? Will continue with Unasyn and azithromycin as he completed 7 days of Levaquin at the halfway ? He did receive 2.5 L bolus and will continue with IV fluids ? He did receive Rocephin and azithromycin in the ER 2. Essential HTN/HLD ? Will hold his Norvasc ? Continue with Lipitor if he is able to swallow pills after they can do a dysphagia screen ? Will monitor make adjustments as necessary 3. Anxiety/depression/dementia ? She is on multiple medications for anxiety and depression ? Can resume if he passes dysphagia screen 4. Hypothyroidism ? Stable ? Continue with Synthroid 5. GERD ? Stable ? Continue with PPI 6. BPH with obstruction ? Stable/continue with Flomax DVT: SCDs 75 minutes was spent on direct patient care, including documentation as well as chart review and collaboration with colleagues Sepsis Attestation Sepsis Attestation: Agree w/Sepsis Date exam was performed: 03/19/24 Time exam was performed: 13:30 Possible Source of Sepsis: Pulmonary Sepsis Organ Dysfunction Criteria Present: Creatinine > 2.0 mg/dL, Lactic Acid > 2 mmol/L and Serum CO2 < 20 mmol/L (on BMP) Fluid Resuscitation Fluid resuscitation indicated?: Yes Sepsis Note Date exam was performed: 03/19/24 Time exam was performed: 18:00 Sepsis Attestation: Sepsis re-evaluation was performed Response to fluids: Fluid responsive hypotension Charges/Coding Visit Charges Inpatient E&M: 31733 Init Hosp L3
[2024-03-19] MEDS: Ampicillin/Sulbactam 3 GM in 0.9% Normal Saline (100mL MB+) 100 ML IV (21:18)
[2024-03-20] VITALS (8 sets, daily range): BP systolic 109–125; BP diastolic 55–69; PULSE 92–104; RESP 18–20; TEMP 36.6–36.8; O2SAT 93–99
[2024-03-20 01:04] LABS: Mucous, Urine 0 SEEN /hpf (<or=2+); Red Blood Cells-Urine 0 SEEN /hpf (0-5); Squamous Epithelial Cells - UA 0 SEEN /hpf (0-5); White Blood Cells 0 SEEN /hpf (0-5)
[2024-03-20 01:07] LABS: Color, Urine Yellow (Yellow); Glucose, Dipstick Normal (Normal); Ketone-Dipstick Negative (Negative); Leukocyte Esterase-Dipstick Negative /ul (Negative); Nitrite-Dipstick Negative (Negative); Occult Blood-Urine 10 /ul (Negative); Protein-Dipstick 15 mg/dl (Negative); Urine Bilirubin Dipstick Negative (Negative); Urine Clarity Clear (Clear); Urine Urobilinogen Normal (Normal)
[2024-03-20 01:23] LABS: Bacteria RARE /hpf (None Seen)
[2024-03-20 05:43] LABS: Absolute Lymphocyte Count 1.71 X10^3/uL (0.83-4.51); Absolute Neutrophil Count 9.9 X10^3/uL (2.0-7.7); Basophil# 0.05 X10^3/uL; Basophil% 0.4 % (0-1); Eosinophil# 0.11 X10^3/uL; Eosinophils% 0.8 % (0-5); Hematocrit 39.6 % (40-54); Lymphocyte # 1.71 X10^3/ul (0.83-4.51); Lymphocyte % 13.1 % (19-41); Mean Corp Hgb Conc 32.8 g/dL (32-36); Mean Corpuscular Hgb 30.4 pg (27.0-32.0); Mean Corpuscular Volume 92.5 fL (80-94); Mean Platelet Vol. 11.3 fl (6.2-12.0); Monocyte# 1.12 X10^3/uL; Monocyte% 8.6 % (0-10); NRBC Flagged by Analyzer 0 % (0-5); Neutrophil # 9.92 X10^3/uL (2.7-7.7); POSITIVE COUNT YES; RBC Distribution Width CV 13.2 % (11.6-14.6); RBC Distribution Width SD 44.1 fl (35.1-43.9); Red Blood Count 4.28 M/mm3 (4.6-6.2); White Blood Count 13.1 K/mm3 (4.4-11.0)
[2024-03-20 06:21] LABS: Anion Gap 3 (5-15); BUN 26 mg/dL (7-18); BUN/Creat Ratio 23.2 RATIO (10-20); Calcium,Total 7.9 mg/dL (8.5-10.1); Chloride 113 mmol/L (98-107); Creatinine, Serum 1.12 mg/dL (0.70-1.30); EST Glomerular Filtration Rate 68 mL/min (>60); Est Glom Filt Rate - Afr Amer 82 mL/min (>60); Estimated Creatinine Clearance 56.99 ml/min; Glucose 117 mg/dL (74-106); Potassium 3.9 mmol/L (3.5-5.1); Sodium Level 140 mmol/L (136-145)
[2024-03-20 06:23] LABS: Differential Indicated SCAN CRITERIA MET
[2024-03-20] MEDS: Ampicillin/Sulbactam 3 GM in 0.9% Normal Saline (100mL MB+) 100 ML IV ×3 (06:26→22:52)
[2024-03-20 08:13] LABS: Differential Comment SCANNED; Platelet Estimate ADEQUATE (ADEQ)
[2024-03-20] MEDS: 0.9% Normal Saline (1000mL) 1,000 ML 75 ML IV (08:28)
--- NOTE | 2024-03-20 09:11 | CASEMGMT ---
Request sent to [facility] for updated guardianship orders to be faxed. Kasie Daugherty DC Planning Asst.
[2024-03-20] MEDS: Azithromycin 500 MG in 0.9% Normal Saline (250mL Bag) 250 ML 255 MG IV (09:19)
--- NOTE | 2024-03-20 09:56 | CASEMGMT ---
Pts legal guardian, Zelda [facility], would like for pt to return to [facility] upon discharge. SW updated. Kasie Daugherty DC Planning Asst.
[2024-03-20] MEDS: LORazepam 0.5 MG Tablet PO (10:27)
[2024-03-20] MEDS: FLUoxetine 20 MG Capsule PO (10:27)
[2024-03-20] MEDS: Pantoprazole Sodium 20 MG Tablet PO (10:27)
--- NOTE | 2024-03-20 11:40 | PCM.PN.HOSP ---
Subjective Subjective Doing well, no issues overnight. Looks much better than he did yesterday more responsive he is ANO x 2 today pressures are better Objective Data Objective Data Vital Signs: Vital Signs Temp Pulse Resp BP Pulse Ox O2 Del Method O2 Flow Rate 97.8 F 92 18 125/55 H 95 Nasal Cannula 4 03/20/24 08:50 03/20/24 08:50 03/20/24 08:50 03/20/24 08:50 03/20/24 09:45 03/20/24 10:13 03/20/24 10:13 Oxygen Flow Rate (L/min) 4 Oxygen Delivery Method Nasal Cannula Weight: 171 lb 6.4 oz Body Mass Index (BMI) 25.3 Intake & Output: Intake and Output for Last 24 Hours 03/19/24 03/20/24 03/21/24 03:59 03:59 03:59 Intake Total 2967 / 2967 1430.75 / 1430.75 Output Total 400 / 400 600 / 600 Balance 2567 / 2567 830.75 / 830.75 Lab / Micro Data 03/20/24 05:22 03/20/24 05:22 Labs: Laboratory Results - last 24 hr 03/19/24 11:13: PT 13.7, INR 1.0, APTT 24.5, Sodium 139, Potassium 3.9, Chloride 108 H, Carbon Dioxide 19.0 L, Anion Gap 12, BUN 37 H, Creatinine 2.11 H, Estim Creat Clear Calc 30.25, Est GFR (MDRD) Af Amer 40 L, Est GFR (MDRD) Non-Af 33 L, BUN/Creatinine Ratio 17.5, Glucose 219 H, Calcium 8.2 L, Total Bilirubin 0.80, AST 9 L, ALT 11 L, Alkaline Phosphatase 63, Troponin I High Sens 14, Total Protein 6.7, Albumin 3.1 L, Globulin 3.6, Albumin/Globulin Ratio 0.9 03/19/24 11:50: Lactic Acid 6.5 H* 03/19/24 16:30: Lactic Acid 4.3 H* 03/20/24 00:54: Urine Color Yellow, Urine Clarity Clear, Urine pH 6.0, Ur Specific [place] 1.020, Urine Protein 15 H, Urine Glucose (UA) Normal, Urine Ketones Negative, Urine Occult Blood 10 H, Urine Nitrite Negative, Urine Bilirubin Negative, Urine Urobilinogen Normal, Ur Leukocyte Esterase Negative, Urine RBC 0 SEEN, Urine WBC 0 SEEN, Ur Squamous Epith Cells 0 SEEN, Urine Bacteria RARE, Urine Mucus 0 SEEN 03/20/24 05:22: WBC 13.1 H, RBC 4.28 L, Hgb 13.0, Hct 39.6 L, MCV 92.5, MCH 30.4, MCHC 32.8, RDW Std Deviation 44.1 H, RDW Coeff of Kirk 13.2, Plt Count TNP, MPV 11.3, Immature Gran % (Auto) 1.100 H, Neut % (Auto) 76.0 H, Lymph % (Auto) 13.1 L, [place] % (Auto) 8.6, Eos % (Auto) 0.8, Baso % (Auto) 0.4, Absolute Neuts (auto) 9.9 H, Absolute Lymphs (auto) 1.71, Nucleated RBC % 0, Differential Comment SCANNED, Platelet Estimate ADEQUATE, Sodium 140, Potassium 3.9, Chloride 113 H, Carbon Dioxide 23.0, Anion Gap 3 L, BUN 26 H, Creatinine 1.12, Estim Creat Clear Calc 56.99, Est GFR (MDRD) Af Amer 82, Est GFR (MDRD) Non-Af 68, BUN/Creatinine Ratio 23.2 H, Glucose 117 H, Calcium 7.9 L Micro: Microbiology 03/19/24 11:50 Blood Culture (Wb) - Right Wrist Blood Culture - Preliminary 03/19/24 11:50 Mucosa - Nasopharyngeal SARS-CoV-2, Influenza & RSV (PCR) - Final Radiography Diagnostic Testing: Radiology Impression Chest X-Ray 03/19/24 11:15 IMPRESSION: New area of airspace opacification involves the right middle and lower lobes of the lung suggestive of pneumonia. Electronically Signed: Marky Jhaveri MD at 11:51 EST , Physical Exam Narrative General: Alert, oriented x 2, Cooperative, No apparent distress HEENT: Atraumatic, PERRLA, EOMI, Normocephalic Oral: Moist Mucosa Neck: Supple, No JVD Lungs: Diminished, Normal air movement, No rhonchi, No wheeze, right sided rales Cardiovascular: Regular rate, Regular Rhythm, Normal S1, Normal S2, No murmurs Abdomen: Soft, Non Tender, Non-Distended, No Hepato-splenomegaly Extremities: No edema, Capillary Refill Less than 3 Seconds Skin: No rashes, No breakdown Musculoskeletal: No Tenderness to Palpation of Joints or Extremities Neurological: No focal neurological deficits, moves all extremities, does not follow exam cues Psych/Mental Status: Normal affect, appropriate Assessment & Plan Assessment/Plan (1) Sepsis: (2) Pneumonia: PLAN: Plan 1. Sepsis secondary to right lower and middle lobe pneumonia with HAYLIE ? Concern for possible aspiration will do the dysphagia screen ? If he fails we will plan for speech therapy and hold his oral medications ? Will continue with Unasyn and azithromycin, blood cultures are coming back with gram-positive cocci in clusters in 1 out of 4 bottles will hold off antibiotic adjustment until identities and sensitivities are finished ? He did receive 2.5 L bolus and will continue with IV fluids ? He did receive Rocephin and azithromycin in the ER ? Renal functions returned to baseline 2. Essential HTN/HLD ? Will hold his Norvasc ? Continue with Lipitor if he is able to swallow pills after they can do a dysphagia screen ? Will monitor make adjustments as necessary 3. Anxiety/depression/dementia ?He is on multiple medications for anxiety and depression ?Can resume his home meds 4. Hypothyroidism ? Stable ? Continue with Synthroid 5. GERD ? Stable ? Continue with PPI 6. BPH with obstruction ? Stable ? Continue with Flomax DVT: SCDs Charges/Coding Visit Charges Inpatient E&M: 54918 Subs Hosp L2
--- NOTE | 2024-03-20 13:41 | CASEMGMT ---
Addendum entered by Kasie Daugherty 03/20/24 14:55: Pt is able to admit prior to auth being obtained. SW updated. Kasie Daugherty DC Planning Asst. Original Note: [facility] for precert to be submitted. Kasie Daugherty DC Planning Asst.
[2024-03-20] MEDS: Tamsulosin HCl 0.4 MG Capsule PO (22:52)
[2024-03-20] MEDS: cloZAPine 100 MG TABLET 200 MG PO (22:52)
[2024-03-21 02:09] VITALS: BP 136/73; PULSE 100; RESP 18; TEMP 36.8; O2SAT 94
[2024-03-21] MEDS: Ampicillin/Sulbactam 3 GM in 0.9% Normal Saline (100mL MB+) 100 ML IV ×3 (05:34→23:07)
[2024-03-21] MEDS: Levothyroxine 50 MCG Tablet PO (05:35)
[2024-03-21 06:45] LABS: Absolute Lymphocyte Count 1.75 X10^3/uL (0.83-4.51); Absolute Neutrophil Count 9.6 X10^3/uL (2.0-7.7); Basophil# 0.05 X10^3/uL; Basophil% 0.4 % (0-1); Eosinophil# 0.52 X10^3/uL; Eosinophils% 3.9 % (0-5); Lymphocyte # 1.75 X10^3/ul (0.83-4.51); Lymphocyte % 13.3 % (19-41); Mean Corp Hgb Conc 33.3 g/dL (32-36); Mean Corpuscular Hgb 30.2 pg (27.0-32.0); Mean Corpuscular Volume 90.5 fL (80-94); Mean Platelet Vol. 10.7 fl (6.2-12.0); Monocyte# 1.13 X10^3/uL; Monocyte% 8.6 % (0-10); NRBC Flagged by Analyzer 0 % (0-5); Neutrophil # 9.55 X10^3/uL (2.7-7.7); Neutrophil % 72.5 % (47-70); Platelet Count 158 K/mm3 (150-450); RBC Distribution Width CV 12.8 % (11.6-14.6); RBC Distribution Width SD 42.4 fl (35.1-43.9); Red Blood Count 4.31 M/mm3 (4.6-6.2); White Blood Count 13.2 K/mm3 (4.4-11.0)
[2024-03-21 06:53] LABS: Anion Gap 5 (5-15); BUN 15 mg/dL (7-18); Calcium,Total 8.4 mg/dL (8.5-10.1); Chloride 112 mmol/L (98-107); Creatinine, Serum 0.88 mg/dL (0.70-1.30); EST Glomerular Filtration Rate 89 mL/min (>60); Est Glom Filt Rate - Afr Amer 108 mL/min (>60); Estimated Creatinine Clearance 72.53 ml/min; Glucose 127 mg/dL (74-106); Potassium 3.4 mmol/L (3.5-5.1); Sodium Level 140 mmol/L (136-145)
[2024-03-21 08:09] VITALS: BP 117/65; PULSE 102; RESP 18; TEMP 37; O2SAT 96
[2024-03-21] MEDS: FLUoxetine 20 MG Capsule PO (09:47)
[2024-03-21] MEDS: LORazepam 0.5 MG Tablet PO (09:47)
[2024-03-21] MEDS: Pantoprazole Sodium 20 MG Tablet PO (09:47)
[2024-03-21] MEDS: Azithromycin 500 MG in 0.9% Normal Saline (250mL Bag) 250 ML 250 MG IV (09:50)
--- NOTE | 2024-03-21 10:43 | PN.HOSP_ITS ---
Subjective Subjective Doing well, no issues overnight Objective Data Objective Data Vital Signs: Vital Signs Temp Pulse Resp BP Pulse Ox O2 Del Method O2 Flow Rate 98.3 F 100 18 136/73 H 94 Nasal Cannula 4 03/21/24 02:09 03/21/24 02:09 03/21/24 02:09 03/21/24 02:09 03/21/24 02:09 03/21/24 08:12 03/21/24 08:12 Oxygen Flow Rate (L/min) 4 Oxygen Delivery Method Nasal Cannula Weight: 171 lb 6.4 oz Body Mass Index (BMI) 25.3 Intake & Output: Intake and Output for Last 24 Hours 03/20/24 03/21/24 03/22/24 03:59 03:59 03:59 Intake Total 2967 / 2967 2629.75 / 2629.75 262 / 262 Output Total 400 / 400 1425 / 1425 700 / 700 Balance 2567 / 2567 1204.75 / 1204.75 -438 / -438 Lab / Micro Data 03/21/24 06:10 03/21/24 06:10 Labs: Laboratory Results - last 24 hr 03/21/24 06:10: WBC 13.2 H, RBC 4.31 L, Hgb 13.0, Hct 39.0 L, MCV 90.5, MCH 30.2, MCHC 33.3, RDW Std Deviation 42.4, RDW Coeff of Kirk 12.8, Plt Count 158, MPV 10.7, Immature Gran % (Auto) 1.300 H, Neut % (Auto) 72.5 H, Lymph % (Auto) 13.3 L, [place] % (Auto) 8.6, Eos % (Auto) 3.9, Baso % (Auto) 0.4, Absolute Neuts (auto) 9.6 H, Absolute Lymphs (auto) 1.75, Nucleated RBC % 0, Sodium 140, P otassium 3.4 L, Chloride 112 H, Carbon Dioxide 24.0, Anion Gap 5, BUN 15, Creatinine 0.88, Estim Creat Clear Calc 72.53, Est GFR (MDRD) Af Amer 108, Est GFR (MDRD) Non-Af 89, BUN/Creatinine Ratio 17.0, Glucose 127 H, Calcium 8.4 L Micro: Microbiology 03/19/24 11:50 Blood Culture (Wb) - Right Wrist Bacteria Detection (PCR) - Final Coag Negative Staph 03/19/24 11:50 Blood Culture (Wb) - Right Wrist Blood Culture - Preliminary 03/19/24 11:50 Mucosa - Nasopharyngeal SARS-CoV-2, Influenza & RSV (PCR) - Final Physical Exam Narrative General: Alert, oriented x 2, Cooperative, No apparent distress HEENT: Atraumatic, PERRLA, EOMI, Normocephalic Oral: Moist Mucosa Neck: Supple, No JVD Lungs: Diminished, Normal air movement, No rhonchi, No wheeze, right sided rales Cardiovascular: Regular rate, Regular Rhythm, Normal S1, Normal S2, No murmurs Abdomen: Soft, Non Tender, Non-Distended, No Hepato-splenomegaly Extremities: No edema, Capillary Refill Less than 3 Seconds Skin: No rashes, No breakdown Musculoskeletal: No Tenderness to Palpation of Joints or Extremities Neurological: No focal neurological deficits, moves all extremities, does not follow exam cues Psych/Mental Status: Normal affect, appropriate Assessment & Plan Assessment/Plan (1) Sepsis: (2) Pneumonia: PLAN: Plan 1. Sepsis secondary to aspiration pneumonia with HAYLIE ?He does have small dysphagia likely contributing to aspiration ? Will continue with Unasyn and azithromycin, blood cultures are for coag negative staph consistent with contamination ? He did receive 2.5 L bolus and will continue with IV fluids ? He did receive Rocephin and azithromycin in the ER ? Renal functions returned to baseline 2. Essential HTN/HLD ? Will hold his Norvasc ? Continue with Lipitor if he is able to swallow pills after they can do a dysphagia screen ? Will monitor make adjustments as necessary 3. Anxiety/depression/dementia ?He is on multiple medications for anxiety and depression ?Can resume his home meds 4. Hypothyroidism ? Stable ? Continue with Synthroid 5. GERD ? Stable ? Continue with PPI 6. BPH with obstruction ? Stable ? Continue with Flomax DVT: SCDs Charges/Coding Visit Charges Inpatient E&M: 38736 Subs Hosp L2
[2024-03-21 14:55] VITALS: O2SAT 96
[2024-03-21 15:00] VITALS: O2SAT 96
[2024-03-21 17:00] VITALS: BP 128/70; PULSE 101; RESP 18; TEMP 37.2; O2SAT 96
[2024-03-21 23:00] VITALS: BP 125/68; PULSE 99; RESP 20; TEMP 36.9; O2SAT 95
[2024-03-21] MEDS: Tamsulosin HCl 0.4 MG Capsule PO (23:10)
[2024-03-21] MEDS: cloZAPine 100 MG TABLET 200 MG PO (23:10)
[2024-03-22] VITALS (7 sets, daily range): BP systolic 114–135; BP diastolic 47–77; PULSE 90–107; RESP 20; TEMP 36.8–37.4; O2SAT 87–97
[2024-03-22] MEDS: Ampicillin/Sulbactam 3 GM in 0.9% Normal Saline (100mL MB+) 100 ML IV ×2 (06:55→14:24)
[2024-03-22] MEDS: Levothyroxine 50 MCG Tablet PO (06:57)
[2024-03-22] MEDS: FLUoxetine 20 MG Capsule PO (08:42)
[2024-03-22] MEDS: Pantoprazole Sodium 20 MG Tablet PO (08:42)
[2024-03-22] MEDS: Azithromycin 500 MG in 0.9% Normal Saline (250mL Bag) 250 ML 250 MG IV (08:52)
--- NOTE | 2024-03-22 09:48 | PCM.PN.HOSP ---
Subjective Subjective No issues overnight Objective Data Objective Data Vital Signs: Vital Signs Temp Pulse Resp BP Pulse Ox O2 Del Method O2 Flow Rate 98.3 F 96 20 H 114/47 L 97 Nasal Cannula 3 03/22/24 08:33 03/22/24 08:33 03/22/24 08:33 03/22/24 08:33 03/22/24 08:33 03/22/24 08:33 03/22/24 08:33 Oxygen Flow Rate (L/min) 3 Oxygen Delivery Method Nasal Cannula Weight: 171 lb 6.4 oz Body Mass Index (BMI) 25.3 Intake & Output: Intake and Output for Last 24 Hours 03/21/24 03/22/24 03/23/24 03:59 03:59 03:59 Intake Total 2629.75 / 2629.75 1841 / 1841 112 / 112 Output Total 1425 / 1425 1900 / 1900 600 / 600 Balance 1204.75 / 1204.75 -59 / -59 -488 / -488 Lab / Micro Data 03/21/24 06:10 03/21/24 06:10 Micro: Microbiology 03/20/24 00:54 Urine Catheter - Catheter Urine Culture - Final Culture exhibits no growth. 03/19/24 11:50 Blood Culture (Wb) - Right Wrist Bacteria Detection (PCR) - Final Coag Negative Staph 03/19/24 11:50 Blood Culture (Wb) - Right Wrist Blood Culture - Preliminary Coag Negative Staph 03/19/24 11:13 Blood Culture (Wb) - Right Hand Blood Culture - Preliminary No growth in 48 hours. 03/19/24 11:50 Mucosa - Nasopharyngeal SARS-CoV-2, Influenza & RSV (PCR) - Final Physical Exam Narrative General: Alert, oriented x 2, Cooperative, No apparent distress HEENT: Atraumatic, PERRLA, EOMI, Normocephalic Oral: Moist Mucosa Neck: Supple, No JVD Lungs: Diminished, Normal air movement, No rhonchi, No wheeze, right sided rales Cardiovascular: Regular rate, Regular Rhythm, Normal S1, Normal S2, No murmurs Abdomen: Soft, Non Tender, Non-Distended, No Hepato-splenomegaly Extremities: No edema, Capillary Refill Less than 3 Seconds Skin: No rashes, No breakdown Musculoskeletal: No Tenderness to Palpation of Joints or Extremities Neurological: No focal neurological deficits, moves all extremities, does not follow exam cues Psych/Mental Status: Normal affect, appropriate Assessment & Plan Assessment/Plan (1) Sepsis: (2) Pneumonia: PLAN: Plan 1. Sepsis secondary to aspiration pneumonia with HAYLIE ?He does have small dysphagia likely contributing to aspiration ? Will continue with Unasyn, he completes azithromycin today, blood cultures are for coag negative staph consistent with contamination ? He did receive 2.5 L bolus and will continue with IV fluids ? He did receive Rocephin and azithromycin in the ER ? Renal functions returned to baseline 2. Essential HTN/HLD ? Will hold his Norvasc ? Continue with Lipitor if he is able to swallow pills after they can do a dysphagia screen ? Will monitor make adjustments as necessary 3. Anxiety/depression/dementia ?He is on multiple medications for anxiety and depression ?Can resume his home meds 4. Hypothyroidism ? Stable ? Continue with Synthroid 5. GERD ? Stable ? Continue with PPI 6. BPH with obstruction ? Stable ? Continue with Flomax DVT: SCDs Charges/Coding Visit Charges Inpatient E&M: 08194 Subs Hosp L2
[2024-03-22 10:28] LABS: Absolute Lymphocyte Count 1.79 X10^3/uL (0.83-4.51); Absolute Neutrophil Count 6.9 X10^3/uL (2.0-7.7); Basophil# 0.05 X10^3/uL; Basophil% 0.5 % (0-1); Eosinophil# 0.48 X10^3/uL; Eosinophils% 4.6 % (0-5); Hematocrit 39.5 % (40-54); Hemoglobin 12.9 g/dL (13.0-16.5); Lymphocyte # 1.79 X10^3/ul (0.83-4.51); Lymphocyte % 17.1 % (19-41); Mean Corp Hgb Conc 32.7 g/dL (32-36); Mean Corpuscular Hgb 29.7 pg (27.0-32.0); Mean Corpuscular Volume 90.8 fL (80-94); Mean Platelet Vol. 10.2 fl (6.2-12.0); Monocyte# 0.92 X10^3/uL; Monocyte% 8.8 % (0-10); NRBC Flagged by Analyzer 0 % (0-5); Neutrophil # 6.92 X10^3/uL (2.7-7.7); Neutrophil % 66.3 % (47-70); Platelet Count 190 K/mm3 (150-450); RBC Distribution Width SD 43.3 fl (35.1-43.9); Red Blood Count 4.35 M/mm3 (4.6-6.2); White Blood Count 10.4 K/mm3 (4.4-11.0)
[2024-03-22 10:54] LABS: Anion Gap 7 (5-15); BUN 7 mg/dL (7-18); BUN/Creat Ratio 7.1 RATIO (10-20); Chloride 109 mmol/L (98-107); Creatinine, Serum 0.99 mg/dL (0.70-1.30); EST Glomerular Filtration Rate 78 mL/min (>60); Est Glom Filt Rate - Afr Amer 95 mL/min (>60); Estimated Creatinine Clearance 64.47 ml/min; Glucose 165 mg/dL (74-106); Potassium 3.4 mmol/L (3.5-5.1); Sodium Level 142 mmol/L (136-145)
[2024-03-22] MEDS: LORazepam 0.5 MG Tablet PO (11:03)
[2024-03-22 12:40] LABS: Magnesium 2.2 mg/dL (1.6-2.6); Phosphorus 3.2 mg/dL (2.5-4.9)
--- NOTE | 2024-03-22 13:13 | PCM.TXEXTCAR ---
Diet Diet Order/Speech Therapy: 03/20/24 09:46 Diet: Regular - General Food consistency:: Soft & Bite Sized Liquid Consistency:: Regular/Thin Diet Comments: Direct supervision for meals, SLOW RATE Routine Orders/Code Status Routine Lab Work: CBC and BMP Code Status: Full Code DC O2, CPAP, BIPAP needs Home O2 Discharge instructions: No Therapies Physical Therapy: Eval and Treat Occupational Therapy: Eval and Treat Speech Therapy: Eval and Treat Problem/Diagnosis (1) Sepsis: Status: Acute Code(s): A41.9 - Sepsis, unspecified organism (2) Pneumonia: Status: Acute Code(s): J18.9 - Pneumonia, unspecified organism Plan 1. Sepsis secondary to aspiration pneumonia with HAYLIE ?He does have small dysphagia likely contributing to aspiration ? Will continue with Unasyn, he completes azithromycin today, blood cultures are for coag negative staph consistent with contamination ? He did receive 2.5 L bolus and will continue with IV fluids ? He did receive Rocephin and azithromycin in the ER ? Renal functions returned to baseline 2. Essential HTN/HLD ? Will hold his Norvasc ? Continue with Lipitor if he is able to swallow pills after they can do a dysphagia screen ? Will monitor make adjustments as necessary 3. Anxiety/depression/dementia ?He is on multiple medications for anxiety and depression ?Can resume his home meds 4. Hypothyroidism ? Stable ? Continue with Synthroid 5. GERD ? Stable ? Continue with PPI 6. BPH with obstruction ? Stable ? Continue with Flomax DVT: SCDs Allergies/Procedures Done in Hospital Allergies No Known Allergies Allergy (Verified 03/09/24 22:47) Procedures: None Type of Care/Length of Stay Estimated LOS: Convalescent Care Less Than 30 days Type of Care Needed: Skilled Rehab Potential: Fair Prognosis: Fair Additional Orders/Day of Discharge Day of Discharge: 03/22/24 Dietary and Speech Recommendations Dietitian Recommendations/Changes: Continue Regular diet to optimize oral intakes. Will assess PO intakes at follow-up and assess need for ONS. Discharge Plan Admission Admit Date/Time: 03/19/24 12:20 Attending Provider: Darshan Quiroz Primary Care Provider: Simone Messer Discharge Orders/Prescriptions Prescriptions: New amoxicillin-pot clavulanate 875-125 mg tablet 1 tab PO BID Qty: 14 0RF Continued levothyroxine 25 MCG tablet 50 mcg PO DAILY tamsulosin 0.4 MG capsule 0.4 mg PO QHS amlodipine 10 MG tablet 10 mg PO QHS ipratropium-albuterol 0.5 mg-3 mg(2.5 mg base)/3 mL solution for nebulization 3 ml inhalation Q4H PRN PRN (Reason: Wheezing) atorvastatin 10 mg tablet 10 mg PO QHS fluoxetine [Prozac] 10 mg Capsule 20 mg PO DAILY omeprazole 20 mg Capsule,Delayed Release(Dr/Ec) 20 mg PO DAILY clozapine 200 mg tablet 200 mg PO QHS cholecalciferol (vitamin D3) [Vitamin D3] 125 mcg (5,000 unit) Tablet 125 mcg PO DAILY lorazepam 0.5 mg tablet 0.5 mg PO DAILY lorazepam 1 mg tablet 1 mg PO BID Referrals / Follow Up: Simone Messer MD [Primary Care Provider] - Disposition Disposition (needs filled in before D/C Order can be placed): [facility]
--- NOTE | 2024-03-22 13:39 | PCM.DC.SUM ---
Providers Date of Admission: 03/19/24 Primary Care Physician: Dr. Simone Messer MD Reason For Visit: PNEUMONIA Diagnosis Discharge Diagnosis (1) Sepsis: Status: Acute Code(s): A41.9 - Sepsis, unspecified organism (2) Pneumonia: Status: Acute Code(s): J18.9 - Pneumonia, unspecified organism Plan 1. Sepsis secondary to aspiration pneumonia with HAYLIE ?He does have small dysphagia likely contributing to aspiration ? Will continue with Unasyn, he completes azithromycin today, blood cultures are for coag negative staph consistent with contamination ? He did receive 2.5 L bolus and will continue with IV fluids ? He did receive Rocephin and azithromycin in the ER ? Renal functions returned to baseline 2. Essential HTN/HLD ? Will hold his Norvasc ? Continue with Lipitor if he is able to swallow pills after they can do a dysphagia screen ? Will monitor make adjustments as necessary 3. Anxiety/depression/dementia ?He is on multiple medications for anxiety and depression ?Can resume his home meds 4. Hypothyroidism ? Stable ? Continue with Synthroid 5. GERD ? Stable ? Continue with PPI 6. BPH with obstruction ? Stable ? Continue with Flomax DVT: SCDs Medications at Discharge Home Medications amlodipine 10 mg tablet 10 mg PO QHS BP 07/30/17 levothyroxine 25 mcg tablet 50 mcg PO DAILY THYROID 07/30/17 tamsulosin 0.4 mg capsule 0.4 mg PO QHS PROSTATE 07/30/17 atorvastatin 10 mg tablet 10 mg PO QHS cholesterol 07/04/22 cholecalciferol (vitamin D3) 125 mcg (5,000 unit) tablet (Vitamin D3) 125 mcg PO DAILY . 07/04/22 clozapine 200 mg tablet 200 mg PO QHS anxiety 07/04/22 fluoxetine 10 mg capsule (Prozac) 20 mg PO DAILY anxiety 07/04/22 ipratropium 0.5 mg-albuterol 3 mg (2.5 mg base)/3 mL nebulization soln 3 ml inhalation Q4H PRN PRN Wheezing 07/04/22 omeprazole 20 mg capsule,delayed release 20 mg PO DAILY gerd 07/04/22 lorazepam 0.5 mg tablet 0.5 mg PO DAILY anxiety 03/19/24 lorazepam 1 mg tablet 1 mg PO BID anxiety 03/19/24 amoxicillin 875 mg-potassium clavulanate 125 mg tablet 1 tab PO BID #14 tabs 03/22/24 Hospital Course Operations None Procedures None Summary of Care Provided Minutes Spent on Discharge: 34 Hospital Course: Per HPI: ALLAN LARA, is a 73 M who presents from the senior care with shortness of breath and hypoxia. He has a baseline history of dementia and does not provide much other than yes and no answers. He is normally on 3 L nasal cannula at baseline but today he was found to be 70% on his baseline oxygen. Currently on 4 L nasal cannula. He was found to have sepsis due to pneumonia, he was recently seen on 03/09/2024 for a left lower lobe pneumonia and was placed on Levaquin for 7 days. Current chest x-ray demonstrates new areas of opacification in the right middle and lower lobes of the lung consistent with pneumonia. White count is 13 with an HAYLIE to 2.11 and a lactic acid initially of 6.5 improved to 4.3. Hospital Course: 1. Sepsis secondary right lower lobe and middle lobe pneumonia consistent with aspiration pneumonia?73-year-old male presents from the senior care with altered mental status and lethargy. Sepsis was due to pneumonia and he was started on Unasyn and azithromycin. Speech therapy was consulted and per recommendations into the chart. He is down to his baseline oxygen requirements around 3 to 4 L nasal cannula and will plan to continue Augmentin p.o. for another 7 days to complete 10 days of antibiotics. He had completed Levaquin prior to admission for left lower lobe pneumonia. Will plan to discharge today back to the senior care to continue with rehab as well as speech therapy. 2. Essential hypertension, hyperlipidemia, anxiety, depression, dementia, hypothyroidism, GERD, BPH with obstruction are all chronic medical conditions which complicate his care. His home medications were continued where appropriate Physical Exam Narrative General: Alert, oriented x 2, Cooperative, No apparent distress HEENT: Atraumatic, PERRLA, EOMI, Normocephalic Oral: Moist Mucosa Neck: Supple, No JVD Lungs: Diminished, Normal air movement, No rhonchi, No wheeze, right sided rales?improved Cardiovascular: Regular rate, Regular Rhythm, Normal S1, Normal S2, No murmurs Abdomen: Soft, Non Tender, Non-Distended, No Hepato-splenomegaly Extremities: No edema, Capillary Refill Less than 3 Seconds Skin: No rashes, No breakdown Musculoskeletal: No Tenderness to Palpation of Joints or Extremities Neurological: No focal neurological deficits, moves all extremities, does not follow exam cues Psych/Mental Status: Normal affect, appropriate Weight / BMI Weight Weight: 171 lb 6.4 oz Body Mass Index (BMI) 25.3 ABG / Lab / Microbiology Data 03/22/24 10:05 03/22/24 10:05 Laboratory: Laboratory Results - last 24 hr 03/22/24 10:05: WBC 10.4, RBC 4.35 L, Hgb 12.9 L, Hct 39.5 L, MCV 90.8, MCH 29.7, MCHC 32.7, RDW Std Deviation 43.3, RDW Coeff of Kirk 13.0, Plt Count 190, MPV 10.2, Immature Gran % (Auto) 2.700 H, Neut % (Auto) 66.3, Lymph % (Auto) 17.1 L, [place] % (Auto) 8.8, Eos % (Auto) 4.6, Baso % (Auto) 0.5, Absolute Neuts (auto) 6.9, Absolute Lymphs (auto) 1.79, Nucleated RBC % 0, Sodium 142, Potassium 3.4 L, Chloride 109 H, Carbon Dioxide 26.0, Anion Gap 7, BUN 7, Creatinine 0.99, Estim Creat Clear Calc 64.47, Est GFR (MDRD) Af Amer 95, Est GFR (MDRD) Non-Af 78, BUN/Creatinine Ratio 7.1 L, Glucose 165 H, Calcium 9.0, Phosphorus 3.2, Magnesium 2.2 Microbiology: Microbiology 03/20/24 00:54 Urine Catheter - Catheter Urine Culture - Final Culture exhibits no growth. 03/19/24 11:50 Blood Culture (Wb) - Right Wrist Bacteria Detection (PCR) - Final Coag Negative Staph 03/19/24 11:50 Blood Culture (Wb) - Right Wrist Blood Culture - Preliminary Coag Negative Staph 03/19/24 11:13 Blood Culture (Wb) - Right Hand Blood Culture - Preliminary No growth in 48 hours. 03/19/24 11:50 Mucosa - Nasopharyngeal SARS-CoV-2, Influenza & RSV (PCR) - Final D/C Instructions DC O2, CPAP, BIPAP Needs Home O2 Discharge instructions: No Meaningful Use Info Meaningful Use Meaningful Use Diagnoses (Choose all that apply): None applicable Ischemic Stroke Statin Dosing Therapy Reference: STATIN DOSE THERAPY REFERENCE: * Patients > 75 years receive moderate or high dose statin therapy. * Patients 75 years or YOUNGER should receive HIGH intensity statin dose unless contraindicated. You will be required to document reason for non-treatment if statin daily dose does not meet guidelines. HIGH DOSE STATIN THERAPY DAILY Atorvastatin > than or = to 40 mg Rosuvastatin > than or = to 20 mg Amlodipine + Atorvastatin > than or = to 2.5/40 mg Ezetimibe + Simvastatin 10/80 mg Simvastatin 80mg Discharge Plan Admission Admit Date/Time: 03/19/24 12:20 Attending Provider: Darshan Quiroz Primary Care Provider: Simone Messer Discharge Orders/Prescriptions Prescriptions: New amoxicillin-pot clavulanate 875-125 mg tablet 1 tab PO BID Qty: 14 0RF Continued levothyroxine 25 MCG tablet 50 mcg PO DAILY tamsulosin 0.4 MG capsule 0.4 mg PO QHS amlodipine 10 MG tablet 10 mg PO QHS ipratropium-albuterol 0.5 mg-3 mg(2.5 mg base)/3 mL solution for nebulization 3 ml inhalation Q4H PRN PRN (Reason: Wheezing) atorvastatin 10 mg tablet 10 mg PO QHS fluoxetine [Prozac] 10 mg Capsule 20 mg PO DAILY omeprazole 20 mg Capsule,Delayed Release(Dr/Ec) 20 mg PO DAILY clozapine 200 mg tablet 200 mg PO QHS cholecalciferol (vitamin D3) [Vitamin D3] 125 mcg (5,000 unit) Tablet 125 mcg PO DAILY lorazepam 0.5 mg tablet 0.5 mg PO DAILY lorazepam 1 mg tablet 1 mg PO BID Referrals / Follow Up: Simone Messer MD [Primary Care Provider] - Disposition Disposition (needs filled in before D/C Order can be placed): [facility] Facility Charges/Coding Visit Charges Inpatient E&M: 93878 Disch Hosp >30min
[2024-03-22] MEDS: Potassium Chloride Oral Tablet 20 MEQ 60 MEQ PO (14:24)
--- NOTE | 2024-03-22 14:48 | CASEMGMT ---
Addendum entered by Kasie Daugherty 03/22/24 15:48: Signed med list sent via [facility] to [facility]. Kasie Daugherty DC Planning Asst. Original Note: Discharge orders and signed med list sent via [facility]. Physicians will transport pt by cot at 6:30p. Nursing, SW, pt, and his legal guardian (Zelda) updated. Kasie Daugherty DC Planning Asst.
--- NOTE | 2024-03-22 14:58 | NURSING ---
Report called to Gema amado nurse at [facility].
--- NOTE | 2024-03-22 15:18 | CASEMGMT ---
Social Work Precert has been obtained.? Physician updated and pt is ready for discharge today.? DCA notified of discharge. Final discharge arrangements and notification to patient/family as per discharge butcher assistant.? Disposition:Divine, skilled level of care under convalescent stay. KAYA Trivedi
[2024-03-22] MEDS: Tamsulosin HCl 0.4 MG Capsule PO (20:33)
[2024-03-22] MEDS: cloZAPine 100 MG TABLET 200 MG PO (20:33)
== END 2024-03-22 20:43 | disposition skilled nursing facility (03) | DRG 178 ==
LOC: ED 12:48 → MS3 15:11
PROVIDERS: Admitting Provider Family Medicine; Emergency Provider Surgery; PCP Family Medicine; Visit Provider Family Medicine
DX: J69.0 Pneumonitis due to inhalation of food and vomit (principal); N17.9 Acute kidney failure, unspecified; N13.8 Other obstructive and reflux uropathy; Z99.81 Dependence on supplemental oxygen; F03.90 Unspecified dementia, unspecified severity, without behavioral disturbance, psychotic disturbance, mood disturbance, and anxiety; I10 Essential (primary) hypertension; E03.9 Hypothyroidism, unspecified; F32.A Depression, unspecified; K21.9 Gastro-esophageal reflux disease without esophagitis; E78.5 Hyperlipidemia, unspecified; F41.9 Anxiety disorder, unspecified; N40.1 Benign prostatic hyperplasia with lower urinary tract symptoms; R09.02 Hypoxemia; Z79.890 Hormone replacement therapy; Z79.899 Other long term (current) drug therapy; Z86.16 Personal history of COVID-19
CPT/HCPCS: 36415; 71045; 80048; 80053; 81001; 83605; 83735; 84100; 84484; 85025; 85610; 85730; 87040; 87086; 87149; 87631; 92526; 92610; 93005; 94640; 97116; 97162; 97166; 97530; 97535; 99285; J0295

== ENCOUNTER 2025-01-03 06:07 | Inpatient (IN) | payer MEDICARE, MEDICAID, SELFPAY ==
[2025-01-03] VITALS (12 sets, daily range): BP systolic 76–142; BP diastolic 52–76; PULSE 68–122; RESP 16–24; TEMP 36.2–37.1; O2SAT 83–98; BMI 24.6; BMI 32.3
--- NOTE | 2025-01-03 06:29 | EKG12_ITS ---
Test Reason : CP
--- NOTE | 2025-01-03 06:36 | EX.ED.DYSGE1 ---
HPI History of Present Illness Chief Complaint: Chest Pain Informant: patient, EMS and SNF Narrative Narrative: 74-year-old male presenting to the emergency room with the chief complaint of chest pain and vomiting. Patient has a history of dementia and is noted to have difficulty expressing himself. He often responds with yes and no answers. He states that he developed a pain in the left mid anterior aspect of his chest today. detention as well as EMS notes several episodes of emesis with black appearance. Last time of p.o. intake and what it was is unknown. detention also reports that he was hypoxic and sometimes wears oxygen as needed. Patient denies any current shortness of breath. He cannot tell me anything about his bowel movements. He denies any current abdominal pain. 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 07/04/22 Unknown History mcg (5,000 unit) tablet (Vitamin D3) clozapine 200 mg tablet 100 mg PO QHS anxiety 07/04/22 Unknown History fluoxetine 10 mg capsule (Prozac) 20 mg PO DAILY anxiety 07/04/22 Unknown History ipratropium 0.5 mg-albuterol 3 mg 3 ml inhalation Q4H PRN PRN 07/04/22 Unknown History (2.5 mg base)/3 mL nebulization Wheezing soln omeprazole 20 mg capsule,delayed 20 mg PO DAILY gerd 07/04/22 Unknown History release lorazepam 0.5 mg tablet 0.5 mg PO DAILY anxiety 03/19/24 Unknown History lorazepam 1 mg tablet 1 mg PO BID anxiety 03/19/24 Unknown History clonazepam 0.5 mg tablet 0.5 mg PO TID 01/03/25 Unknown History cyanocobalamin (vitamin B-12) 1,000 mcg PO DAILY 01/03/25 Unknown History 1,000 mcg capsule fluoxetine 20 mg capsule 20 mg PO DAILY 01/03/25 Unknown History trazodone 100 mg tablet 100 mg PO QHS PRN insomnia 01/03/25 Unknown History Allergy/AdvReac Type Severity Reaction Status Date / Time No Known Allergies Allergy Verified 01/03/25 06:16 Social History Smoking Status: Never smoker ROS ROS ED Review of Systems ROS Unobtainable: due to mental status Constitutional Constitutional ED: Denies chills, fever(s) or weight loss Eyes Eyes: Denies change in vision or diplopia ENT ENT ED: Denies ear pain, rhinorrhea or sore throat Cardiovascular Cardiovascular: Reports chest pain; Denies orthopnea, palpitations or racing heartbeat Respiratory/Chest Respiratory/Chest: Denies cough, dyspnea or orthopnea Gastrointestinal Gastrointestinal: Reports nausea and vomiting; Denies abdominal pain or diarrhea Genitourinary Genitourinary ED: Denies dysuria, hematuria or urinary frequency Musculoskeletal Musculoskeletal: Denies arthralgias, back pain or myalgias Integumentary Denies abscess or rash Neurologic Neurologic: Denies headache(s) or weakness Psychiatric Psychiatric: Denies anxiety, depression, suicidal ideation or suicidal thoughts Endocrine Endocrinology: Denies polydipsia, polyphagia or polyuria Allergic/Immunologic Allergic/Immunologic ED: Denies mouth swelling, tongue swelling or urticaria EXAM Physical Exam Narrative Exam Narrative: Patient is laying on his right side. He does not appear in any distress. He readily makes an attempt to answer questions that typically respond to the yes or no but sometimes will give me a few words that may not be related to the question Const Vital Signs: 01/03/25 06:09 Temperature 97.8 F Temperature Source Oral Pulse Rate 106 H Respiratory Rate 17 Blood Pressure 113/73 Blood Pressure Mean 86 Pulse Ox 95 Oxygen Delivery Method Room Air Positive well nourished and well developed General Appearance ED: well developed HEENT Reports normocephalic, head/scalp atraumatic and moist mucous membranes Eyes PERRL and EOMs intact bilaterally Neck no lymphadenopathy, supple and no JVD Resp normal respiratory effort and clear to auscultation bilaterally Cardio regular rate, regular rhythm and no murmurs GI normal to inspection, nondistended, normoactive bowel sounds and non-tender Palpation: soft Back/Spine no CVA tenderness and normal ROM Extremity normal to inspection General Extremety ED: Negative for edema General Extremity: Negative for edema Neuro Neuro Narrative: Moves all extremities. Sensorium / Orientation: alert and orientation impaired Motor Exam: strength 5/5 throughout Psych mental status grossly normal Mood & Affect: Negative for depressed or tearful Skin no rashes or lesions noted and no wounds MDM MDM MDM Narrative Medical decision making narrative: Differential diagnosis includes but not limited to acute coronary syndrome upper GI bleed gastritis gastroenteritis anemia dehydration pancreatitis EKG demonstrates a sinus tachycardic rhythm. Interpretation of the single view chest x-ray is no acute intrathoracic pathology. White count returns at 28,000 with a hemoglobin of 14.7 and platelet count of 252. History & Record Review Discussion w/independent historian: EMS personnel, Patient and Other (SNF) Lab Data Attestation: I reviewed the patient's lab results. Labs: Laboratory Results - last 24 hr 01/03/25 06:16 WBC 28.0 H RBC 5.00 Hgb 14.7 Hct 43.9 MCV 87.8 MCH 29.4 MCHC 33.5 RDW Std Deviation 42.0 RDW Coeff of Kirk 13.1 Plt Count 252 MPV 10.1 Immature Gran % (Auto) 1.000 H Neut % (Auto) 91.3 H Lymph % (Auto) 3.8 L [place] % (Auto) 3.5 Eos % (Auto) 0.1 Baso % (Auto) 0.3 Absolute Neuts (auto) 25.5 H Absolute Lymphs (auto) 1.07 Nucleated RBC % 0 EKG Initial EKG: Attestation: I personally reviewed and interpreted this EKG as follows: Comments: Sinus tachycardia ventricular rate of 107 bpm Discharge Plan Triage Chief Complaint: Chest Pain ED Provider: Daren Hermosillo Dx/Rx/DC Orders Prescriptions: No Action levothyroxine 25 MCG tablet 50 mcg PO DAILY tamsulosin 0.4 MG capsule 0.4 mg PO QHS amlodipine 10 MG tablet 10 mg PO QHS ipratropium-albuterol 0.5 mg-3 mg(2.5 mg base)/3 mL solution for nebulization 3 ml inhalation Q4H PRN PRN (Reason: Wheezing) atorvastatin 10 mg tablet 10 mg PO QHS fluoxetine [Prozac] 10 mg Capsule 20 mg PO DAILY omeprazole 20 mg Capsule,Delayed Release(Dr/Ec) 20 mg PO DAILY clozapine 200 mg tablet 100 mg PO QHS cholecalciferol (vitamin D3) [Vitamin D3] 125 mcg (5,000 unit) Tablet 125 mcg PO DAILY lorazepam 0.5 mg tablet 0.5 mg PO DAILY lorazepam 1 mg tablet 1 mg PO BID clonazepam 0.5 mg tablet 0.5 mg PO TID trazodone 100 mg tablet 100 mg PO QHS PRN (Reason: insomnia) fluoxetine 20 mg capsule 20 mg PO DAILY cyanocobalamin (vitamin B-12) 1,000 mcg capsule 1,000 mcg PO DAILY Primary Care Provider: Simone Messer Referrals: Simone Messer MD [Primary Care Provider, Family Practice] Print Language: Nepalese
[2025-01-03 06:43] LABS: Hematocrit 43.9 % (40-54); Hemoglobin 14.7 g/dL (13.0-16.5); Immature Granulocytes Count 0.270 X10^3/uL (0.0-0.0); Mean Corp Hgb Conc 33.5 g/dL (32-36); Mean Corpuscular Volume 87.8 fL (80-94); Mean Platelet Vol. 10.1 fl (6.2-12.0); NRBC Flagged by Analyzer 0 % (0-5); POSITIVE DIFFERENTIAL YES; Platelet Count 252 K/mm3 (150-450); RBC Distribution Width CV 13.1 % (11.6-14.6); RBC Distribution Width SD 42.0 fl (35.1-43.9); Red Blood Count 5.00 M/mm3 (4.6-6.2); White Blood Count 28.0 K/mm3 (4.4-11.0)
[2025-01-03] MEDS: 0.9% Normal Saline (1000mL) 1,000 ML 999 ML IV (06:43)
--- NOTE | 2025-01-03 06:45 | RAD_ITS ---
PROCEDURE: RAD/Chest 1 View (Portable)
[2025-01-03 06:49] LABS: Differential Indicated SCAN CRITERIA MET
--- NOTE | 2025-01-03 06:52 | ED.RN ---
message left for guardian,Ashley Galloway reguarding permission to treat the pt and transfuse blood if necessary.
[2025-01-03 07:09] LABS: Partial Thromboplast Time 25.3 Seconds (24.1-36.2); Prothrombin Time (Protime)PT. 12.8 SECONDS (11.7-14.9)
[2025-01-03 07:19] LABS: AST(SGOT) 16 U/L (<=37); Alanine Aminotransfer ALT/SGPT 14 U/L (<=46); Albumin, Serum 4.0 g/dL (3.4-4.8); Alkaline Phosphatase 87 U/L (40-129); Anion Gap 12 (5-15); BUN 17 mg/dL (4-19); BUN/Creat Ratio 15.5 RATIO (10-20); Bilirubin, Direct 0.15 mg/dL (0.00-0.30); Calcium,Total 9.5 mg/dL (7.6-11.0); Carbon Dioxide 27.4 mmol/L (21.0-32.0); Chloride 101 mmol/L (98-108); Estimated Creatinine Clearance 56.11 ml/min (50-250); Globulin 3.1 g/dL (2.2-4.2); Glucose 212 mg/dL (70-99); Lipase 25 U/L (13-75); Potassium 4.0 mmol/L (3.3-5.1); Troponin T High Sensitivity 17 ng/L (<=22)
--- NOTE | 2025-01-03 07:40 | CT_ITS ---
PROCEDURE: CT/CTA Chst, Abd, Pel W and/or WO
[2025-01-03 08:27] LABS: Mucous, Urine 0 SEEN /hpf (<or=2+); Squamous Epithelial Cells - UA 0 SEEN /hpf (0-5)
[2025-01-03 08:31] LABS: Color, Urine Yellow (Yellow); Glucose, Dipstick Normal (Normal); Ketone-Dipstick Negative (Negative); Leukocyte Esterase-Dipstick Negative /ul (Negative); Nitrite-Dipstick Negative (Negative); Occult Blood-Urine 10 /ul (Negative); Protein-Dipstick 15 mg/dl (Negative); Specific Gravity, Urine 1.010 (1.002-1.030); Urine Bilirubin Dipstick Negative (Negative)
[2025-01-03 08:41] LABS: Troponin T High Sens 2 HR 18 ng/L (<=22)
[2025-01-03 08:41] LABS: Red Blood Cells-Urine 0-5 SEEN /hpf (0-5)
[2025-01-03] MEDS: Piperacil/Tazobactam 4.5 GM in 0.9% Normal Saline (100mL MB+) 100 ML IV (08:53)
[2025-01-03] MEDS: 0.9% Normal Saline (500mL Bag) 500 ML 999 ML IV (09:08)
[2025-01-03 10:50] LABS: Reflex Lactate? Y
[2025-01-03] MEDS: 0.9% Normal Saline (1000mL) 1,000 ML 75 ML IV (12:59)
[2025-01-03 13:53] LABS: Troponin T High Sensitivity 18 ng/L (<=22)
--- NOTE | 2025-01-03 14:27 | CASEMGMT ---
Addendum entered by Kasie Daugherty 01/03/25 14:44: Guardianship orders rec'd and given to for review. Per [facility], pt is a bedhold and can return w/o precert. Kasie Daugherty DC Planning Asst. Original Note: Discharge Planning Msg sent via [facility] to [facility] to obtain updated guardianship orders. Kasie Daugherty DC Planning Asst.
--- NOTE | 2025-01-03 14:34 | CASEMGMT ---
[place] [employer] Phone call placed to Ashley Galloway, pt's listed guardian. Ashley confirms she is pt's new guardian and will send guardianship papers to this SW shortly. Ashley confirms the plan for pt to return to [facility] when medically ready. Plan: Return to [facility]
[2025-01-03] MEDS: Piperacil/Tazobactam 3.375 GM in 0.9% Normal Saline (50mL MB+) 50 ML IV (16:52)
--- NOTE | 2025-01-03 18:33 | PCM.HP.STD ---
HPI - General General Date of Admission: 01/03/25 Date of Service: 01/03/25 Chief Complaint: Chest pain and vomiting HPI Narrative ALLAN LARA, is a 74 M who presents to the emergency room at [facility] after being transported from an intermediate care facility (in a memory unit) due to chest pain and vomiting. Patient has a history of dementia he does not respond to questions. Evidently according to the half-way, the emesis had some black appearance to it. Workup in the emergency room included labs which revealed a 28,000 white blood cell count, hemoglobin was normal, patient's chemistry profile was unremarkable except for glucose of 212. Patient's lactic acid was elevated at 2.7 and the repeat lactic acid was 3.6. Patient's urinalysis was unremarkable CTA of the chest abdomen and pelvis showed multiple gallstones, there was a 6.6 nonobstructive calculus in the lower pole of the right kidney, large amount of fecal material was seen in the colon. Patient will be admitted to [place] [id number] for aspiration/aspiration pneumonia, he will be placed on IV Zosyn and monitor. Aerosol treatments will be administered. According to the patient's medical records, he is a full code. Patient requires no oxygen at this time and appears comfortable. 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 07/04/22 Unknown History mcg (5,000 unit) tablet (Vitamin D3) clozapine 200 mg tablet 100 mg PO QHS anxiety 07/04/22 Unknown History fluoxetine 10 mg capsule (Prozac) 20 mg PO DAILY anxiety 07/04/22 Unknown History ipratropium 0.5 mg-albuterol 3 mg 3 ml inhalation Q4H PRN PRN 07/04/22 Unknown History (2.5 mg base)/3 mL nebulization Wheezing soln omeprazole 20 mg capsule,delayed 20 mg PO DAILY gerd 07/04/22 Unknown History release lorazepam 0.5 mg tablet 0.5 mg PO DAILY anxiety 03/19/24 Unknown History lorazepam 1 mg tablet 1 mg PO BID anxiety 03/19/24 Unknown History clonazepam 0.5 mg tablet 0.5 mg PO TID 01/03/25 Unknown History cyanocobalamin (vitamin B-12) 1,000 mcg PO DAILY 01/03/25 Unknown History 1,000 mcg capsule fluoxetine 20 mg capsule 20 mg PO DAILY 01/03/25 Unknown History trazodone 100 mg tablet 100 mg PO QHS PRN insomnia 01/03/25 Unknown History Allergy/AdvReac Type Severity Reaction Status Date / Time No Known Allergies Allergy Verified 01/03/25 06:16 Social History Smoking Status: Never smoker ROS ROS Narrative Unable to obtain review of systems due to the patient's dementia Vital Signs Vital Signs Vital Signs: 01/03/25 06:09 01/03/25 07:06 01/03/25 08:00 Temperature 97.8 F Temperature Source Oral Pulse Rate 106 H 74 74 Respiratory Rate 17 20 H 20 H Respiratory Pattern Blood Pressure 113/73 105/72 129/76 H Blood Pressure Mean 86 83 93 Blood Pressure Source Blood Pressure Position Blood Pressure Location Pulse Ox 95 98 95 Oxygen Delivery Method Room Air 01/03/25 08:57 01/03/25 10:00 01/03/25 10:37 Temperature 98 F Temperature Source Pulse Rate 74 68 70 Respiratory Rate 20 H 24 H 22 H Respiratory Pattern Blood Pressure 110/61 112/62 110/68 Blood Pressure Mean 77 78 82 Blood Pressure Source Blood Pressure Position Blood Pressure Location Pulse Ox 94 95 95 Oxygen Delivery Method Room Air 01/03/25 11:24 01/03/25 11:28 01/03/25 13:47 Temperature 97.2 F L Temperature Source Oral Pulse Rate 110 H 112 H 109 H Respiratory Rate 16 20 H Respiratory Pattern Normal Blood Pressure 76/52 L 142/73 H Blood Pressure Mean 60 96 Blood Pressure Source Monitor Monitor Blood Pressure Position Supine Supine Blood Pressure Location Left Leg Left Forearm Pulse Ox 94 Oxygen Delivery Method Room Air 01/03/25 13:47 Temperature Temperature Source Pulse Rate Respiratory Rate Respiratory Pattern Blood Pressure Blood Pressure Mean Blood Pressure Source Blood Pressure Position Blood Pressure Location Pulse Ox 94 Oxygen Delivery Method Room Air Weight Weight: 99.393 kg Body Mass Index (BMI) 32.3 Physical Exam Const alert and no apparent distress Constitutional Narrative: Patient is alert, he speaks a few words but is confused General Appearance: cooperative, well kempt and well developed Orientation / Consciousness: awake HEENT normocephalic, head/scalp atraumatic and moist oral mucous membranes Eyes PERRL, EOMs intact bilaterally and conjunctivae normal Neck supple, no JVD, thyroid normal and no carotid bruits General: trachea midline Resp normal respiratory effort, no retractions, no use of accessory muscles and clear to auscultation bilaterally Auscultation: Negative for rales, rhonchi or wheezes Cardio regular rate, regular rhythm, S1 normal heart sound, S2 normal heart sound, no murmurs, no rub and no gallops GI normal to inspection, nondistended, normoactive bowel sounds, soft to palpation, non-tender and non-distended Extremity no clubbing, cyanosis or edema Skin no rashes or lesions noted General Skin Exam: no breakdown Neuro CN's II-XII intact bilaterally, no focal motor deficits and no sensory deficits noted Neuro Narrative: Patient is confused, he speaks a few words Sensorium / Orientation: awake and alert Speech: speech normal Psych Psych Narrative: Patient appears confused Results Lab / Micro Data 01/03/25 06:16 01/03/25 06:16 Labs: Laboratory Results - last 24 hr 01/03/25 06:16: WBC 28.0 H, RBC 5.00, Hgb 14.7, Hct 43.9, MCV 87.8, MCH 29.4, MCHC 33.5, RDW Std Deviation 42.0, RDW Coeff of Kirk 13.1, Plt Count 252, MPV 10.1, Immature Gran % (Auto) 1.000 H, Neut % (Auto) 91.3 H, Lymph % (Auto) 3.8 L, [place] % (Auto) 3.5, Eos % (Auto) 0.1, Baso % (Auto) 0.3, Absolute Neuts (auto) 25.5 H, Absolute Lymphs (auto) 1.07, Nucleated RBC % 0, PT 12.8, INR 1.0, APTT 25.3, Sodium 141, Potassium 4.0, Chloride 101, Carbon Dioxide 27.4, Anion Gap 12, BUN 17, Creatinine 1.12, Estim Creat Clear Calc 56.11, Est GFR (MDRD) Non-Af 68, BUN/Creatinine Ratio 15.5, Glucose 212 H, Calcium 9.5, Total Bilirubin 0.33, Direct Bilirubin 0.15, AST 16, ALT 14, Alkaline Phosphatase 87, Troponin T High Sens 17, Total Protein 7.2, Albumin 4.0, Globulin 3.1, Lipase 25, Blood Type B POSITIVE, Antibody Screen NEGATIVE 01/03/25 06:42: Lactic Acid 2.7 H* 01/03/25 08:05: Troponin T Hi Sens 2 Hr 18 01/03/25 08:20: Urine Color Yellow, Urine Clarity Clear, Urine pH 7.0, Ur Specific [place] 1.010, Urine Protein 15 H, Urine Glucose (UA) Normal, Urine Ketones Negative, Urine Occult Blood 10 H, Urine Nitrite Negative, Urine Bilirubin Negative, Urine Urobilinogen Normal, Ur Leukocyte Esterase Negative, Urine RBC 0-5 SEEN, Urine WBC 0 SEEN, Ur Squamous Epith Cells 0 SEEN, Ur Renal Epithelial Cell 0-5 SEEN, Urine Bacteria 0 SEEN, Urine Mucus 0 SEEN 01/03/25 11:19: Lactic Acid 3.6 H* 01/03/25 12:53: Troponin T High Sens 18 Imaging Radiology Impression Chest X-Ray 01/03/25 06:45 IMPRESSION: Lungs are hypoinflated with bibasilar atelectasis, [id number]-left; cannot entirely exclude the presence of pneumonitis. No pleural effusion or pneumothorax is noted. The cardiomediastinal silhouette is remarkable for a somewhat calcified and tortuous aorta; no evidence of cardiomegaly. Prominent degenerative changes are seen of the bilateral glenohumeral and acromioclavicular joints, both [id number]-right. No acute osseous change is seen. Reading Location: [facility] Chest/Abdomen/Pelvis CTA 01/03/25 07:40 IMPRESSION: Multiple gallstones. Bilateral renal cysts more prominent on the right side. 6.6 mm nonobstructive calculus in the lower pole calyx of the right kidney. Large amount of fecal material is seen in the colon. Reading Location: [id number] Assessment & Plan Assessment/Plan (1) Aspiration pneumonia: PLAN: Plan 1. Aspiration pneumonia/aspiration pneumonitis-patient will be admitted to [facility] 3, IV Zosyn will be administered, patient will receive breathing treatments, labs will be monitored #2 Central tension-patient will remain on his current blood pressure medications and blood pressure will be monitored #3 chronic anxiety-patient is on clonazepam and clonazepam as well as Prozac #4 hyperlipidemia-patient is on atorvastatin #5 hypothyroidism-patient is on Synthroid #6 BPH-patient is on tamsulosin Total clinical time spent by myself addressing the patient's medical issues, reviewing all of his data, and collaborating with patient's care team: 75 minutes Charges/Coding Visit Charges Inpatient E&M: 71323 Init Hosp L3
[2025-01-03] MEDS: Heparin Injection (Vial) 5,000 UNIT/ML VIAL 5000 UNIT SC (20:08)
[2025-01-04 04:43] VITALS: BP 111/29; PULSE 81; RESP 18; TEMP 36.9; O2SAT 99
[2025-01-04] MEDS: 0.9% Normal Saline (1000mL) 1,000 ML 75 ML IV (04:53)
[2025-01-04] MEDS: Piperacil/Tazobactam 3.375 GM in 0.9% Normal Saline (50mL MB+) 50 ML IV ×3 (04:53→23:44)
--- NOTE | 2025-01-04 05:10 | RAD_ITS ---
PROCEDURE: RAD/Chest 1 View (Portable)
[2025-01-04 05:14] LABS: Hematocrit 37.0 % (40-54); Hemoglobin 12.3 g/dL (13.0-16.5); Immature Granulocytes Count 0.250 X10^3/uL (0.0-0.0); Mean Corp Hgb Conc 33.2 g/dL (32-36); Mean Corpuscular Volume 88.7 fL (80-94); Mean Platelet Vol. 10.4 fl (6.2-12.0); NRBC Flagged by Analyzer 0 % (0-5); POSITIVE DIFFERENTIAL YES; Platelet Count 221 K/mm3 (150-450); RBC Distribution Width CV 13.6 % (11.6-14.6); RBC Distribution Width SD 43.9 fl (35.1-43.9); Red Blood Count 4.17 M/mm3 (4.6-6.2); White Blood Count 26.4 K/mm3 (4.4-11.0)
[2025-01-04 05:27] LABS: Differential Indicated SCAN CRITERIA MET
[2025-01-04 06:21] LABS: Differential Comment SCANNED
[2025-01-04 07:09] VITALS: PULSE 115; RESP 24; O2SAT 93
[2025-01-04 08:43] LABS: Anion Gap 10 (5-15); BUN 34 mg/dL (4-19); BUN/Creat Ratio 28.8 RATIO (10-20); Calcium,Total 8.4 mg/dL (7.6-11.0); Carbon Dioxide 23.6 mmol/L (21.0-32.0); Chloride 106 mmol/L (98-108); Estimated Creatinine Clearance 61.38 ml/min (50-250); Glucose 167 mg/dL (70-99); Potassium 4.2 mmol/L (3.3-5.1)
[2025-01-04 10:45] VITALS: BP 100/75; PULSE 98; RESP 18; TEMP 37.1; O2SAT 97
[2025-01-04] MEDS: Heparin Injection (Vial) 5,000 UNIT/ML VIAL 5000 UNIT SC (10:50)
[2025-01-04 13:34] VITALS: PULSE 110; RESP 24; O2SAT 95
[2025-01-04] MEDS: Sodium Chloride 0.65% 1 SPRAY SPRAY.BTL 2 SPRAY NASAL (14:11)
[2025-01-04 15:48] VITALS: BP 146/57; PULSE 90; RESP 18; TEMP 37.2; O2SAT 98
--- NOTE | 2025-01-04 17:23 | PN.HOSP_ITS ---
Reason for Visit
--- NOTE | 2025-01-04 17:23 | PCM.PN.HOSP ---
Reason for Visit Chief Complaint: Chest pain and vomiting Subjective Subjective Patient keeps eyes closed for most of interview, initially said everything hurts and that he just does not feel good but then refused to answer any specific questions Objective Data Objective Data Vital Signs: Vital Signs Temp Pulse Resp BP Pulse Ox O2 Del Method O2 Flow Rate 98.9 F 90 18 146/57 H 98 Nasal Cannula 2 01/04/25 15:48 01/04/25 15:48 01/04/25 15:48 01/04/25 15:48 01/04/25 15:48 01/04/25 15:48 01/04/25 15:48 Oxygen Flow Rate (L/min) 2 Oxygen Delivery Method Nasal Cannula Weight: 99.393 kg Body Mass Index (BMI) 32.3 Intake & Output: Intake and Output for Last 24 Hours 01/02/25 01/03/25 01/04/25 23:59 23:59 23:59 Intake Total 1650 / 1650 1050 / 1050 Output Total 50 / 50 Balance 1650 / 1650 1000 / 1000 Lab / Micro Data 01/04/25 05:00 01/04/25 05:00 Labs: Laboratory Results - last 24 hr 01/04/25 05:00: WBC 26.4 H, RBC 4.17 L, Hgb 12.3 L, Hct 37.0 L, MCV 88.7, MCH 29.5, MCHC 33.2, RDW Std Deviation 43.9, RDW Coeff of Kirk 13.6, Plt Count 221, MPV 10.4, Immature Gran % (Auto) 0.900, Neut % (Auto) 83.8 H, Lymph % (Auto) 8.6 L, [place] % (Auto) 6.5, Eos % (Auto) 0.0, Baso % (Auto) 0.2, Absolute Neuts (auto) 22.1 H, Absolute Lymphs (auto) 2.27, Nucleated RBC % 0, Differential Comment SCANNED, Sodium 139, Potassium 4.2, Chloride 106, Carbon Dioxide 23.6, Anion Gap 10, BUN 34 H, Creatinine 1.19, Estim Creat Clear Calc 61.38, Est GFR (MDRD) Non-Af 63, BUN/Creatinine Ratio 28.8 H, Glucose 167 H, Calcium 8.4 Radiography Diagnostic Testing: Radiology Impression Chest X-Ray 11/01/25 05:10 IMPRESSION: Faint left basal infiltrates, new since the prior study. Follow-up is recommended. Blunting of the left costophrenic recess by possible minimal pleural effusion/reaction. Reading Location: [place] [address] Physical Exam Narrative General: Would not answer orientation questions, resting comfortably in bed HEENT: Normocephalic Eyes: Anicteric, normal conjunctiva, extraocular movements grossly intact Neck: Supple Respiratory: Normal respiratory effort, diminished bilaterally but patient would not take a deep breath on instruction to do so so difficult to auscultate bases accurately Cardiovascular: Regular rate and rhythm GI: Soft, nontender, nondistended Extremities: No edema Musculoskeletal: Moving all extremities Neuro: No overt focal neurological deficits however patient unable to/unwilling to cooperate neuroexam Skin: No rashes appreciated Psych: Uncooperative, initially answer question but then closed eyes and refused to answer any further questions Assessment & Plan Assessment/Plan (1) Aspiration pneumonia: (2) Leukocytosis: PLAN: Plan 74-year-old male with a history of hypertension, hypothyroidism, BPH, anxiety, GERD presented to [facility] ED 01/03/2025 due to chest pain and vomiting. Has history of dementia and had difficulty expressing himself but it was determined he had chest pain that developed in the left mid anterior aspect chest and jail noted several episodes of emesis with unknown last p.o. intake. In the ED patient afebrile, heart rate 106, respiratory rate 17 with blood pressure 113/73, pulse ox 95% on room air. White blood cell count 28, hemoglobin 14.7, platelet count 252. BMP only notable for glucose of 212. Liver profile within normal limits. Chest x-ray with bibasilar atelectasis, cannot exclude presence of pneumonitis. Troponin within normal limits and lactic acid 2.7. UA not suggestive of UTI. CT chest/abdomen/pelvis obtained which showed multiple gallstones and bilateral renal cysts as well as a large amount of fecal material in the colon. Additionally a nonobstructive calculus in lower pole of the right kidney. Blood cultures obtained due to unclear etiology of elevated white blood cell count but concern for aspiration pneumonia and hospitalist contacted for admission. Patient admitted to [facility] on IV Zosyn. # Acute hypoxia secondary to aspiration pneumonia -Patient did desaturate to 83% on room air at 1950 on 01/03/2025 -Has been on 2 L nasal cannula -Patient with wet sounding cough -Chest x-ray repeated in the a.m. which showed faint left basal infiltrates new since prior study - White blood cell count 26.4 this a.m. -Continue antibiotics -Afebrile, heart rate improved and blood pressure improved with antibiotics -Speech therapy consult, it is recommended that patient is a total feed with direct supervision with aspiration precautions -Continue nebs #Anemia - Normocytic anemia - Patient had been 14.7, this a.m. 12.3 but no evidence of ongoing blood loss reported, patient has had blood draws and had been on continuous IV fluids which may have contributed in all 3 cell lines decreased this may be dilutional -Will recheck hemoglobin to verify stability, the last hemoglobin prior to this admission was 12.9 #Constipation - CT scan revealed large stool burden - Will schedule bowel regimen, low threshold for enema or suppository if needed #Chronic BPH with obstruction -Continue home medications #Depression/anxiety -Continue home medications -Unclear indication for clozapine however this medication has been confirmed is at home medications will continue #GERD -Continue PPI #Hypothyroidism -Continue Synthroid # Elevated glucose -May be due to underlying infection, will check A1c with a low threshold for glucose checks and sliding scale insulin if needed however glucose was 167 this a.m. #Hypertension - Patient on home Norvasc #DVT ppx: Heparin subcu Kendra Herrera MD Charges/Coding Visit Charges Inpatient E&M: 83407 Subs Hosp L2
[2025-01-04 17:47] LABS: Hematocrit 36.3 % (40-54); Hemoglobin 11.9 g/dL (13.0-16.5); Mean Corp Hgb Conc 32.8 g/dL (32-36); Mean Corpuscular Volume 89.0 fL (80-94); Mean Platelet Vol. 10.2 fl (6.2-12.0); Platelet Count 202 K/mm3 (150-450); RBC Distribution Width CV 13.7 % (11.6-14.6); RBC Distribution Width SD 44.6 fl (35.1-43.9); Red Blood Count 4.08 M/mm3 (4.6-6.2); White Blood Count 24.8 K/mm3 (4.4-11.0)
[2025-01-04 20:13] VITALS: BP 113/73; PULSE 106; RESP 16; TEMP 36.7; O2SAT 98
[2025-01-04] MEDS: 0.9% Normal Saline (250mL Bag) 250 ML 15 ML IV (23:45)
[2025-01-04] MEDS: Senna/Docusate Sodium 1 Tablet 2 TABLET PO (23:45)
[2025-01-05] VITALS (8 sets, daily range): BP systolic 113–128; BP diastolic 52–75; PULSE 90–109; RESP 16–22; TEMP 36.6–37.9; O2SAT 93–99
[2025-01-05] MEDS: Sodium Chloride 0.65% 1 SPRAY SPRAY.BTL 2 SPRAY NASAL (01:09)
[2025-01-05] MEDS: Piperacil/Tazobactam 3.375 GM in 0.9% Normal Saline (50mL MB+) 50 ML IV ×3 (05:40→20:59)
[2025-01-05 07:12] LABS: Hematocrit 36.3 % (40-54); Hemoglobin 11.7 g/dL (13.0-16.5); Immature Granulocytes Count 0.290 X10^3/uL (0.0-0.0); Mean Corp Hgb Conc 32.2 g/dL (32-36); Mean Corpuscular Volume 90.8 fL (80-94); Mean Platelet Vol. 10.6 fl (6.2-12.0); NRBC Flagged by Analyzer 0 % (0-5); POSITIVE DIFFERENTIAL YES; Platelet Count 197 K/mm3 (150-450); RBC Distribution Width CV 13.7 % (11.6-14.6); RBC Distribution Width SD 45.2 fl (35.1-43.9); Red Blood Count 4.00 M/mm3 (4.6-6.2); White Blood Count 29.0 K/mm3 (4.4-11.0)
[2025-01-05 07:21] LABS: Differential Indicated SCAN CRITERIA MET
[2025-01-05 07:52] LABS: Anion Gap 10 (5-15); BUN 22 mg/dL (4-19); BUN/Creat Ratio 22.6 RATIO (10-20); Calcium,Total 8.5 mg/dL (7.6-11.0); Carbon Dioxide 21.7 mmol/L (21.0-32.0); Chloride 108 mmol/L (98-108); Estimated Creatinine Clearance 73.78 ml/min (50-250); Glucose 147 mg/dL (70-99); Potassium 4.0 mmol/L (3.3-5.1)
--- NOTE | 2025-01-05 08:42 | PN.HOSP_ITS ---
Reason for Visit
--- NOTE | 2025-01-05 08:42 | PCM.PN.HOSP ---
Reason for Visit Chief Complaint: Chest pain and vomiting Subjective Subjective Patient evaluated at bedside, woke patient up and only thing he would voices that he felt like he could not breathe however patient breathing comfortably, not tachypneic, no respiratory distress, denies cough. Discussed with nurse at bedside, does not seem he has had a bowel movement yet, is urinating and a Prima fit Objective Data Objective Data Vital Signs: Vital Signs Temp Pulse Resp BP Pulse Ox O2 Del Method O2 Flow Rate 97.9 F 109 H 16 113/52 L 96 Nasal Cannula 2 01/05/25 05:00 01/05/25 05:00 01/05/25 05:00 01/05/25 05:00 01/05/25 05:00 01/05/25 05:00 01/05/25 05:00 Oxygen Flow Rate (L/min) 2 Oxygen Delivery Method Nasal Cannula Weight: 99.393 kg Body Mass Index (BMI) 32.3 Intake & Output: Intake and Output for Last 24 Hours 01/03/25 01/04/25 01/05/25 23:59 23:59 22:59 Intake Total 1650 / 1650 2300 / 2300 50 / 50 Output Total 410 / 810 650 / 650 Balance 1650 / 1650 1890 / 1490 -600 / -600 Lab / Micro Data 01/05/25 06:45 01/05/25 06:45 Labs: Laboratory Results - last 24 hr 01/04/25 17:39: WBC 24.8 H, RBC 4.08 L, Hgb 11.9 L, Hct 36.3 L, MCV 89.0, MCH 29.2, MCHC 32.8, RDW Std Deviation 44.6 H, RDW Coeff of Kirk 13.7, Plt Count 202, MPV 10.2 01/05/25 06:45: WBC 29.0 H, RBC 4.00 L, Hgb 11.7 L, Hct 36.3 L, MCV 90.8, MCH 29.3, MCHC 32.2, RDW Std Deviation 45.2 H, RDW Coeff of Kirk 13.7, Plt Count 197, MPV 10.6, Immature Gran % (Auto) 1.000 H, Neut % (Auto) 88.3 H, Lymph % (Auto) 5.1 L, [place] % (Auto) 5.3, Eos % (Auto) 0.0, Baso % (Auto) 0.3, Absolute Neuts (auto) 25.6 H, Absolute Lymphs (auto) 1.49, Nucleated RBC % 0, Sodium 140, Potassium 4.0, Chloride 108, Carbon Dioxide 21.7, Anion Gap 10, BUN 22 H, Creatinine 0.99, Estim Creat Clear Calc 73.78, Est GFR (MDRD) Non-Af 79, BUN/Creatinine Ratio 22.6 H, Glucose 147 H, Calcium 8.5 Micro: Microbiology 01/03/25 08:00 Blood Culture (Wb) - Anticubital Left Blood Culture - Preliminary No growth in 48 hours. 01/03/25 08:00 Blood Culture (Wb) - Anticubital Right Blood Culture - Preliminary No growth in 48 hours. Physical Exam Narrative General: Woke up but minimally interactive HEENT: Normocephalic Eyes: Anicteric, normal conjunctiva, extraocular movements grossly intact Neck: Supple Respiratory: Normal respiratory effort, some transmitted upper airway sounds Cardiovascular: Regular rate and rhythm GI: Soft, nontender, no profound distention Extremities: No edema Musculoskeletal: Moving all extremities Neuro: No overt focal neurological deficits Skin: No rashes appreciated Psych: Minimally cooperative Assessment & Plan Assessment/Plan (1) Aspiration pneumonia: (2) Leukocytosis: PLAN: Plan 74-year-old male with a history of hypertension, hypothyroidism, BPH, anxiety, GERD presented to [facility] ED 01/03/2025 due to chest pain and vomiting. Has history of dementia and had difficulty expressing himself but it was determined he had chest pain that developed in the left mid anterior aspect chest and half-way noted several episodes of emesis with unknown last p.o. intake. In the ED patient afebrile, heart rate 106, respiratory rate 17 with blood pressure 113/73, pulse ox 95% on room air. White blood cell count 28, hemoglobin 14.7, platelet count 252. BMP only notable for glucose of 212. Liver profile within normal limits. Chest x-ray with bibasilar atelectasis, cannot exclude presence of pneumonitis. Troponin within normal limits and lactic acid 2.7. UA not suggestive of UTI. CT chest/abdomen/pelvis obtained which showed multiple gallstones and bilateral renal cysts as well as a large amount of fecal material in the colon. Additionally a nonobstructive calculus in lower pole of the right kidney. Blood cultures obtained due to unclear etiology of elevated white blood cell count but concern for aspiration pneumonia and hospitalist contacted for admission. Patient admitted to [facility] on IV Zosyn. # Acute hypoxia secondary to aspiration pneumonia -Patient did desaturate to 83% on room air at 1950 on 01/03/2025 -Has been on 2 L nasal cannula -Patient with wet sounding cough -Chest x-ray repeated in the a.m. which showed faint left basal infiltrates new since prior study - White blood cell count 26.4 this a.m. -Continue antibiotics -Afebrile, heart rate improved and blood pressure improved with antibiotics -Speech therapy consult, it is recommended that patient is a total feed with direct supervision with aspiration precautions -Continue nebs -01/05: Presently 96% on 2 L nasal cannula, working with speech therapy, continues to have elevated white blood cell count, checking Pro-Dima, continue antibiotics #Anemia - Normocytic anemia - Patient had been 14.7, this a.m. 12.3 but no evidence of ongoing blood loss reported, patient has had blood draws and had been on continuous IV fluids which may have contributed in all 3 cell lines decreased this may be dilutional -Will recheck hemoglobin to verify stability, the last hemoglobin prior to this admission was 12.9 -01/05: Hemoglobin 11.7, stable from yesterday #Constipation - CT scan revealed large stool burden - Will schedule bowel regimen, low threshold for enema or suppository if needed -01/05: Patient on scheduled bowel regiment Chronic medical problems and/or problems not being actively addressed during today's encounter: #Chronic BPH with obstruction -Continue home medications #Depression/anxiety -Continue home medications -Unclear indication for clozapine however this medication has been confirmed is at home medications will continue #GERD -Continue PPI #Hypothyroidism -Continue Synthroid # Elevated glucose -May be due to underlying infection, will check A1c with a low threshold for glucose checks and sliding scale insulin if needed however glucose was 167 this a.m. #Hypertension - Patient on home Norvasc #DVT ppx: Heparin subcu Kendra Herrera MD Time spent in the patient's overall evaluation,decision-making process, review of diagnostic data, adjustment of management, discussion with other providers, nursing nursing and ancillary staff involved in patient's care documentation, 36 Minutes Charges/Coding Visit Charges Inpatient E&M: 73741 Subs Hosp L2
[2025-01-05 09:23] LABS: Procalcitonin 0.09 ng/mL (<=0.10)
[2025-01-05] MEDS: Senna/Docusate Sodium 1 Tablet 2 TABLET PO ×2 (10:31→20:21)
--- NOTE | 2025-01-05 12:45 | CPS ---
Pt. refused therapy at 12:15
--- NOTE | 2025-01-05 17:32 | CPS ---
Therapy not done with patient, confused and refused
[2025-01-05] MEDS: 0.9% Saline Lock 10 ML Syringe IV (20:20)
[2025-01-06] VITALS (7 sets, daily range): BP systolic 110–131; BP diastolic 59–69; PULSE 75–103; RESP 16–24; TEMP 36.2–37.2; O2SAT 91–98
[2025-01-06] MEDS: Piperacil/Tazobactam 3.375 GM in 0.9% Normal Saline (50mL MB+) 50 ML IV ×3 (05:42→21:13)
[2025-01-06 06:07] LABS: Hematocrit 34.2 % (40-54); Hemoglobin 11.2 g/dL (13.0-16.5); Immature Granulocytes Count 0.290 X10^3/uL (0.0-0.0); Mean Corp Hgb Conc 32.7 g/dL (32-36); Mean Corpuscular Volume 89.5 fL (80-94); Mean Platelet Vol. 10.6 fl (6.2-12.0); NRBC Flagged by Analyzer 0 % (0-5); Platelet Count 200 K/mm3 (150-450); RBC Distribution Width CV 13.8 % (11.6-14.6); RBC Distribution Width SD 44.8 fl (35.1-43.9); Red Blood Count 3.82 M/mm3 (4.6-6.2); White Blood Count 22.2 K/mm3 (4.4-11.0)
[2025-01-06 06:42] LABS: Anion Gap 8 (5-15); BUN 19 mg/dL (4-19); BUN/Creat Ratio 19.0 RATIO (10-20); Calcium,Total 8.3 mg/dL (7.6-11.0); Carbon Dioxide 23.7 mmol/L (21.0-32.0); Chloride 109 mmol/L (98-108); Estimated Creatinine Clearance 73.78 ml/min (50-250); Glucose 102 mg/dL (70-99); Potassium 3.7 mmol/L (3.3-5.1)
[2025-01-06] MEDS: Sodium Chloride 0.65% 1 SPRAY SPRAY.BTL 2 SPRAY NASAL ×3 (06:53→18:40)
[2025-01-06] MEDS: Senna/Docusate Sodium 1 Tablet 2 TABLET PO (08:38)
--- NOTE | 2025-01-06 09:16 | PN.HOSP_ITS ---
Reason for Visit
--- NOTE | 2025-01-06 09:16 | PCM.PN.HOSP ---
Reason for Visit Chief Complaint: Chest pain and vomiting Subjective Subjective Patient attempting to stand up to get to bathroom as he reports he needs to have a bowel movement, still reports that he feels that he is having difficulty breathing but unchanged from yesterday, has been having hiccups as well Objective Data Objective Data Vital Signs: Vital Signs Temp Pulse Resp BP Pulse Ox O2 Del Method O2 Flow Rate 97.1 F L 101 H 18 131/69 H 96 Nasal Cannula 2 01/06/25 08:48 01/06/25 08:48 01/06/25 08:48 01/06/25 08:48 01/06/25 08:48 01/06/25 08:52 01/06/25 08:52 Oxygen Flow Rate (L/min) 2 Oxygen Delivery Method Nasal Cannula Weight: 99.393 kg Body Mass Index (BMI) 32.3 Intake & Output: Intake and Output for Last 24 Hours 01/04/25 01/05/25 01/06/25 23:59 22:59 23:59 Intake Total 2300 / 2300 550 / 600 375 / 375 Output Total 410 / 810 1150 / 1150 600 / 600 Balance 1890 / 1490 -600 / -550 -225 / -225 Lab / Micro Data 01/06/25 05:08 01/06/25 05:08 Labs: Laboratory Results - last 24 hr 01/05/25 06:45: Procalcitonin 0.09 01/06/25 05:08: WBC 22.2 H, RBC 3.82 L, Hgb 11.2 L, Hct 34.2 L, MCV 89.5, MCH 29.3, MCHC 32.7, RDW Std Deviation 44.8 H, RDW Coeff of Kirk 13.8, Plt Count 200, MPV 10.6, Immature Gran % (Auto) 1.300 H, Neut % (Auto) 78.6 H, Lymph % (Auto) 12.8 L, [place] % (Auto) 5.8, Eos % (Auto) 1.1, Baso % (Auto) 0.4, Absolute Neuts (auto) 17.5 H, Absolute Lymphs (auto) 2.85, Nucleated RBC % 0, Sodium 141, Potassium 3.7, Chloride 109 H, Carbon Dioxide 23.7, Anion Gap 8, BUN 19, Creatinine 0.99, Estim Creat Clear Calc 73.78, Est GFR (MDRD) Non-Af 79, BUN/Creatinine Ratio 19.0, Glucose 102 H, Hemoglobin A1c 6.3 H, Calcium 8.3 Micro: Microbiology 01/03/25 08:00 Blood Culture (Wb) - Anticubital Left Blood Culture - Preliminary No growth in 48 hours. 01/03/25 08:00 Blood Culture (Wb) - Anticubital Right Blood Culture - Preliminary No growth in 48 hours. Physical Exam Narrative General: Awake and attempting to get to the bathroom HEENT: normocephalic Eyes: extraocular movements grossly intact Neck: Supple Respiratory: Diminished bilaterally with shallow inspirations Cardiovascular: Regular rate and rhythm GI: Firm but nontender Musculoskeletal: Moving all extremities Neuro: No overt focal neurological deficits moving all extremities Skin: Food matter versus other around mouth and under nails Psych: Attempting to be cooperative Assessment & Plan Assessment/Plan (1) Aspiration pneumonia: (2) Leukocytosis: PLAN: Plan 74-year-old male with a history of hypertension, hypothyroidism, BPH, anxiety, GERD presented to [facility] ED 01/03/2025 due to chest pain and vomiting. Has history of dementia and had difficulty expressing himself but it was determined he had chest pain that developed in the left mid anterior aspect chest and halfway noted several episodes of emesis with unknown last p.o. intake. In the ED patient afebrile, heart rate 106, respiratory rate 17 with blood pressure 113/73, pulse ox 95% on room air. White blood cell count 28, hemoglobin 14.7, platelet count 252. BMP only notable for glucose of 212. Liver profile within normal limits. Chest x-ray with bibasilar atelectasis, cannot exclude presence of pneumonitis. Troponin within normal limits and lactic acid 2.7. UA not suggestive of UTI. CT chest/abdomen/pelvis obtained which showed multiple gallstones and bilateral renal cysts as well as a large amount of fecal material in the colon. Additionally a nonobstructive calculus in lower pole of the right kidney. Blood cultures obtained due to unclear etiology of elevated white blood cell count but concern for aspiration pneumonia and hospitalist contacted for admission. Patient admitted to [facility] on IV Zosyn. # Acute hypoxia secondary to aspiration pneumonia -Patient did desaturate to 83% on room air at 1950 on 01/03/2025 -Has been on 2 L nasal cannula -Patient with wet sounding cough -Chest x-ray repeated in the a.m. which showed faint left basal infiltrates new since prior study - White blood cell count 26.4 this a.m. -Continue antibiotics -Afebrile, heart rate improved and blood pressure improved with antibiotics -Speech therapy consult, it is recommended that patient is a total feed with direct supervision with aspiration precautions -Continue nebs -01/05: Presently 96% on 2 L nasal cannula, working with speech therapy, continues to have elevated white blood cell count, checking Pro-Dima, continue antibiotics -01/06: Still on 2 L, white count still elevated, repeat chest x-ray largely unchanged, may be due to his urinary retention and fecal retention causing difficulty with deep inspiration, suppository ordered #Urinary retention -01/06: Patient this a.m. found to be retaining with a bladder scan of greater than 400, it was a question of whether this is actual retention or behavioral as he does not seem to like to urinate and the Prima fit, patient straight cath, given his significant constipation it could be that this is worsening urinary retention, if he is retaining again when checked will place Jasso and attempt aggressive bowel management. Repeat UA send does not appear infectious #Constipation - CT scan revealed large stool burden - Will schedule bowel regimen, low threshold for enema or suppository if needed -01/05: Patient on scheduled bowel regiment -01/06: Dulcolax suppository ordered #Anemia - Normocytic anemia - Patient had been 14.7, this a.m. 12.3 but no evidence of ongoing blood loss reported, patient has had blood draws and had been on continuous IV fluids which may have contributed in all 3 cell lines decreased this may be dilutional -Will recheck hemoglobin to verify stability, the last hemoglobin prior to this admission was 12.9 -01/05: Hemoglobin 11.7, stable from yesterday -01/06: This remains stable, will resume heparin subcu for DVT prophylaxis Chronic medical problems and/or problems not being actively addressed during today's encounter: #Chronic BPH with obstruction -Continue home medications #Depression/anxiety -Continue home medications -Unclear indication for clozapine however this medication has been confirmed is at home medications will continue #GERD -Continue PPI #Hypothyroidism -Continue Synthroid #Hypertension - Patient on home Norvasc #DVT ppx: Heparin subcu Kendra Herrera, MD Time spent in the patient's overall evaluation,decision-making process, review of diagnostic data, adjustment of management, discussion with other providers, nursing nursing and ancillary staff involved in patient's care documentation, 38 Minutes Charges/Coding Visit Charges Inpatient E&M: 56688 Subs Hosp L2
[2025-01-06 09:26] LABS: Mucous, Urine 0 SEEN /hpf (<or=2+); Squamous Epithelial Cells - UA 0 SEEN /hpf (0-5)
[2025-01-06 09:30] LABS: Color, Urine Yellow (Yellow); Glucose, Dipstick Normal (Normal); Ketone-Dipstick Negative (Negative); Leukocyte Esterase-Dipstick Negative /ul (Negative); Nitrite-Dipstick Negative (Negative); Occult Blood-Urine Negative /ul (Negative); Protein-Dipstick 15 mg/dl (Negative); Specific Gravity, Urine 1.020 (1.002-1.030); Urine Bilirubin Dipstick Negative (Negative)
[2025-01-06 09:57] LABS: Red Blood Cells-Urine 0 SEEN /hpf (0-5)
--- NOTE | 2025-01-06 10:05 | RAD_ITS ---
PROCEDURE: RAD/Chest 1 View (Portable)
[2025-01-06] MEDS: Heparin Injection (Vial) 5,000 UNIT/ML VIAL 5000 UNIT SC (10:14)
--- NOTE | 2025-01-06 10:53 | CASEMGMT ---
Discharge Planning Updates sent via [facility] to [facility]. Kasie Daugherty DC Planning Asst.
--- NOTE | 2025-01-06 13:11 | CASEMGMT ---
Social Work- Hospitalist reports that pt is continuing to receive medical treatment and is not medically optimized at this time. DCA notified. SW remains available to follow. Plan: [facility]; return KAYA Trivedi
[2025-01-06] MEDS: 0.9% Saline Lock 10 ML Syringe IV (14:52)
--- NOTE | 2025-01-06 20:59 | PCM.HOSP.N ---
Hospitalist Note Called due to agitation. Patient has already had his Clozaril and clonazepam. Despite this, still with ongoing agitation. Will schedule melatonin 10 mg. He had significant stool burden on his CAT scan so we will BladderScan to make sure he is not retaining urine and this is the etiology for increasing agitation tonight. Per documentation and nursing staff patient has significant agitation at baseline however tonight has been violent at times. May need as needed medication depending on above.
[2025-01-06] MEDS: MELATONIN 10 MG TABLET PO (21:14)
[2025-01-07 02:59] VITALS: BP 95/54; PULSE 91; RESP 18; TEMP 36.3; O2SAT 94
[2025-01-07] MEDS: Piperacil/Tazobactam 3.375 GM in 0.9% Normal Saline (50mL MB+) 50 ML IV ×2 (05:50→13:48)
[2025-01-07 07:13] VITALS: PULSE 71; RESP 18; O2SAT 91
[2025-01-07 07:41] LABS: Hematocrit 31.7 % (40-54); Hemoglobin 10.6 g/dL (13.0-16.5); Immature Granulocytes Count 0.200 X10^3/uL (0.0-0.0); Mean Corp Hgb Conc 33.4 g/dL (32-36); Mean Corpuscular Volume 88.8 fL (80-94); Mean Platelet Vol. 10.2 fl (6.2-12.0); NRBC Flagged by Analyzer 0 % (0-5); Platelet Count 232 K/mm3 (150-450); RBC Distribution Width CV 13.8 % (11.6-14.6); RBC Distribution Width SD 44.4 fl (35.1-43.9); Red Blood Count 3.57 M/mm3 (4.6-6.2); White Blood Count 14.5 K/mm3 (4.4-11.0)
[2025-01-07 08:14] LABS: Anion Gap 11 (5-15); BUN 19 mg/dL (4-19); BUN/Creat Ratio 18.3 RATIO (10-20); Calcium,Total 8.6 mg/dL (7.6-11.0); Carbon Dioxide 21.5 mmol/L (21.0-32.0); Chloride 109 mmol/L (98-108); Estimated Creatinine Clearance 70.24 ml/min (50-250); Glucose 111 mg/dL (70-99); Potassium 3.5 mmol/L (3.3-5.1)
[2025-01-07] MEDS: FLU VACCINE HIGH DOSE 25-26(65YR UP) 180 MCG/0.5 ML SYRINGE IM (09:23)
[2025-01-07] MEDS: Senna/Docusate Sodium 1 Tablet 2 TABLET PO (09:25)
[2025-01-07] MEDS: Heparin Injection (Vial) 5,000 UNIT/ML VIAL 5000 UNIT SC (09:25)
[2025-01-07 09:34] VITALS: BP 117/70; PULSE 97; RESP 18; TEMP 37.3; O2SAT 92
[2025-01-07 13:34] VITALS: PULSE 80; RESP 20
--- NOTE | 2025-01-07 14:37 | PCM.TXEXTCAR ---
Diet Diet Order/Speech Therapy: INPATIENT Hospital Diet / Speech Therapy Order(s) 01/06/25 14:33 Carb [Diet: Carbohydrate Controlled] Food consistency:: Soft & Bite Sized Dietary Modifications:: No Added Salt Speech Therapy Comments: Assist feeding/direct supervision, meds crushed in Routine Orders/Code Status Jasso Catheter Size: 16 Code Status: Full Code DC O2, CPAP, BIPAP needs Home O2 Discharge instructions: Yes Type of respiratory needs?: Oxygen Oxygen frequency: Other Other oxygen liters per minute: 2 Other oxygen frequency: prn Problem/Diagnosis (1) Aspiration pneumonia: Status: Acute Code(s): J69.0 - Pneumonitis due to inhalation of food and vomit (2) Leukocytosis: Status: Acute Code(s): D72.829 - Elevated white blood cell count, unspecified (3) Constipation: Status: Acute Code(s): K59.00 - Constipation, unspecified (4) Prediabetes: Status: Acute Code(s): R73.03 - Prediabetes (5) Urinary retention: Status: Acute Code(s): R33.9 - Retention of urine, unspecified Plan # Acute hypoxia secondary to aspiration pneumonia #Urinary retention #Constipation #Normocytic anemia #Prediabetes # Hypothyroidism # Anxiety # GERD # Hypertension 74-year-old male with a history of hypertension, hypothyroidism, BPH, anxiety, GERD presented to [facility] ED 01/03/2025 due to chest pain and vomiting. Has history of dementia and had difficulty expressing himself but it was determined he had chest pain that developed in the left mid anterior aspect chest and custodial noted several episodes of emesis with unknown last p.o. intake. In the ED patient afebrile, heart rate 106, respiratory rate 17 with blood pressure 113/73, pulse ox 95% on room air. White blood cell count 28, hemoglobin 14.7, platelet count 252. BMP only notable for glucose of 212. Liver profile within normal limits. Chest x-ray with bibasilar atelectasis, cannot exclude presence of pneumonitis. Troponin within normal limits and lactic acid 2.7. UA not suggestive of UTI. CT chest/abdomen/pelvis obtained which showed multiple gallstones and bilateral renal cysts as well as a large amount of fecal material in the colon. Additionally a nonobstructive calculus in lower pole of the right kidney. Blood cultures obtained due to unclear etiology of elevated white blood cell count but concern for aspiration pneumonia and hospitalist contacted for admission. Patient admitted to [facility] on IV Zosyn. Patient evaluated by speech and aspiration precautions placed. Patient's respiratory status improved and white blood cell count began to downtrend. Patient had been complaining of continued shortness of breath with shallow breathing despite improvement in aeration and lab values but was found to still have significant constipation as well as urinary retention, breathing improved after patient had bowel movements with bowel regimen and suppository, despite that he still was noted to have urinary retention so Jasso catheter placed. Patient's blood counts remained stable, kidney function at baseline and UA, which was repeated, no evidence of infection. Patient was found to have an A1c of 6.3 which places him in the prediabetes range, this can be monitored on an outpatient basis and diet adjusted, could consider medication moving forward depending on glucoses. On day of discharge patient does report breathing feels better, no abdominal pain, intermittently cooperative and oftentimes will not want to answer questions however no new or acute complaints on day of discharge. Discharge instructions as follows: DISCHARGE INSTRUCTIONS PLEASE READ *Please take this with you to your next doctors appointment* - Due to your pneumonia you will be discharged on additional 3 days of Augmentin - Resume your other home medications -You will be discharged with a Jasso catheter due to urinary retention, and is advised to continue on a scheduled bowel regimen due to severe constipation that likely caused or worsened urinary retention.? -Once bowel movements more regular can consider void trial or can consider outpatient urology evaluation -Please call your primary care provider's office upon discharge to schedule a hospital follow up within 1 week. -For any concerning signs or symptoms please call 911 or proceed to the nearest emergency department Allergies/Procedures Done in Hospital Allergies No Known Allergies Allergy (Verified 01/03/25 06:16) Type of Care/Length of Stay Estimated LOS: More Than 30 Days Type of Care Needed: Intermediate Rehab Potential: Poor Prognosis: Poor Additional Orders/Day of Discharge Day of Discharge: 01/07/25 Dietary and Speech Recommendations Dietitian Recommendations/Changes: Change diet to CHO Controlled / No Added Salt - consistency per [employer] Will continue to follow and monitor for changes in pt nutritional status and make additional rec as indicated Discharge Plan Admission Admit Date/Time: 01/03/25 10:08 Primary Reason for Your Visit: Vomiting Attending Provider: Kendra Herrera Primary Care Provider: Simone Messer Consulting Providers: Ad Paulino Instructions Patient Instructions: ED Fall Prevention Additional Instructions / Restrictions: DISCHARGE INSTRUCTIONS PLEASE READ *Please take this with you to your next doctors appointment* - Due to your pneumonia you will be discharged on additional 3 days of Augmentin - Resume your other home medications -You will be discharged with a Jasso catheter due to urinary retention, and is advised to continue on a scheduled bowel regimen due to severe constipation that likely caused or worsened urinary retention.? -Once bowel movements more regular can consider void trial or can consider outpatient urology evaluation -Please call your primary care provider's office upon discharge to schedule a hospital follow up within 1 week. -For any concerning signs or symptoms please call 911 or proceed to the nearest emergency department Discharge Orders/Prescriptions Prescriptions: New sennosides-docusate sodium [Stimulant Laxative Plus] 8.6-50 mg Tablet 2 tab PO BID Qty: 0 0RF bisacodyl 10 mg Suppository 10 mg TX DAILY Qty: 0 0RF amoxicillin-pot clavulanate 875-125 mg tablet 1 tab PO BID 3 Days Qty: 6 0RF Continued levothyroxine 25 MCG tablet 50 mcg PO DAILY tamsulosin 0.4 MG capsule 0.4 mg PO QHS amlodipine 10 MG tablet 10 mg PO QHS ipratropium-albuterol 0.5 mg-3 mg(2.5 mg base)/3 mL solution for nebulization 3 ml inhalation Q4H PRN PRN (Reason: Wheezing) atorvastatin 10 mg tablet 10 mg PO QHS fluoxetine [Prozac] 10 mg Capsule 20 mg PO DAILY omeprazole 20 mg Capsule,Delayed Release(Dr/Ec) 20 mg PO DAILY clozapine 200 mg tablet 100 mg PO QHS cholecalciferol (vitamin D3) [Vitamin D3] 125 mcg (5,000 unit) Tablet 125 mcg PO DAILY lorazepam 0.5 mg tablet 0.5 mg PO DAILY lorazepam 1 mg tablet 1 mg PO BID clonazepam 0.5 mg tablet 0.5 mg PO TID trazodone 100 mg tablet 100 mg PO QHS PRN (Reason: insomnia) fluoxetine 20 mg capsule 20 mg PO DAILY cyanocobalamin (vitamin B-12) 1,000 mcg capsule 1,000 mcg PO DAILY Referrals / Follow Up: Simone Messer MD [Primary Care Provider, Family Practice] Disposition Disposition (needs filled in before D/C Order can be placed): NonSkilled NH/Intermed Care
[2025-01-07 14:44] VITALS: BP 105/62; PULSE 91; RESP 16; TEMP 36.3; O2SAT 95
--- NOTE | 2025-01-07 14:44 | PCM.DC.SUM ---
Providers Date of Admission: 01/03/25 Date of Discharge: 01/07/25 Primary Care Physician: Dr. Simone Messer MD Reason For Visit: ASPIRATION/ASPIRATION PNEUMONIA Diagnosis Discharge Diagnosis (1) Aspiration pneumonia: Status: Acute Code(s): J69.0 - Pneumonitis due to inhalation of food and vomit (2) Leukocytosis: Status: Acute Code(s): D72.829 - Elevated white blood cell count, unspecified (3) Constipation: Status: Acute Code(s): K59.00 - Constipation, unspecified (4) Prediabetes: Status: Acute Code(s): R73.03 - Prediabetes (5) Urinary retention: Status: Acute Code(s): R33.9 - Retention of urine, unspecified Plan # Acute hypoxia secondary to aspiration pneumonia #Urinary retention #Constipation #Normocytic anemia #Prediabetes # Hypothyroidism # Anxiety # GERD # Hypertension Medications at Discharge Home Medications amlodipine 10 mg tablet 10 mg PO QHS BP 07/30/17 levothyroxine 25 mcg tablet 50 mcg PO DAILY THYROID 07/30/17 tamsulosin 0.4 mg capsule 0.4 mg PO QHS PROSTATE 07/30/17 atorvastatin 10 mg tablet 10 mg PO QHS cholesterol 07/04/22 cholecalciferol (vitamin D3) 125 mcg (5,000 unit) tablet (Vitamin D3) 125 mcg PO DAILY . 07/04/22 clozapine 200 mg tablet 100 mg PO QHS anxiety 07/04/22 fluoxetine 10 mg capsule (Prozac) 20 mg PO DAILY anxiety 07/04/22 ipratropium 0.5 mg-albuterol 3 mg (2.5 mg base)/3 mL nebulization soln 3 ml inhalation Q4H PRN PRN Wheezing 07/04/22 omeprazole 20 mg capsule,delayed release 20 mg PO DAILY gerd 07/04/22 lorazepam 0.5 mg tablet 0.5 mg PO DAILY anxiety 03/19/24 lorazepam 1 mg tablet 1 mg PO BID anxiety 03/19/24 clonazepam 0.5 mg tablet 0.5 mg PO TID 01/03/25 cyanocobalamin (vitamin B-12) 1,000 mcg capsule 1,000 mcg PO DAILY 01/03/25 fluoxetine 20 mg capsule 20 mg PO DAILY 01/03/25 trazodone 100 mg tablet 100 mg PO QHS PRN insomnia 01/03/25 amoxicillin 875 mg-potassium clavulanate 125 mg tablet 1 tab PO BID 3 days #6 tabs 01/07/25 bisacodyl 10 mg rectal suppository 10 mg AR DAILY #0 ea 01/07/25 sennosides 8.6 mg-docusate sodium 50 mg tablet (Stimulant Laxative Plus) 2 tab PO BID #0 tabs 01/07/25 Hospital Course Summary of Care Provided Minutes Spent on Discharge: 32 Hospital Course: 74-year-old male with a history of hypertension, hypothyroidism, BPH, anxiety, GERD presented to [facility] ED 01/03/2025 due to chest pain and vomiting. Has history of dementia and had difficulty expressing himself but it was determined he had chest pain that developed in the left mid anterior aspect chest and halfway noted several episodes of emesis with unknown last p.o. intake. In the ED patient afebrile, heart rate 106, respiratory rate 17 with blood pressure 113/73, pulse ox 95% on room air. White blood cell count 28, hemoglobin 14.7, platelet count 252. BMP only notable for glucose of 212. Liver profile within normal limits. Chest x-ray with bibasilar atelectasis, cannot exclude presence of pneumonitis. Troponin within normal limits and lactic acid 2.7. UA not suggestive of UTI. CT chest/abdomen/pelvis obtained which showed multiple gallstones and bilateral renal cysts as well as a large amount of fecal material in the colon. Additionally a nonobstructive calculus in lower pole of the right kidney. Blood cultures obtained due to unclear etiology of elevated white blood cell count but concern for aspiration pneumonia and hospitalist contacted for admission. Patient admitted to [facility] on IV Zosyn. Patient evaluated by speech and aspiration precautions placed. Patient's respiratory status improved and white blood cell count began to downtrend. Patient had been complaining of continued shortness of breath with shallow breathing despite improvement in aeration and lab values but was found to still have significant constipation as well as urinary retention, breathing improved after patient had bowel movements with bowel regimen and suppository, despite that he still was noted to have urinary retention so Jasso catheter placed. Patient's blood counts remained stable, kidney function at baseline and UA, which was repeated, no evidence of infection. Patient was found to have an A1c of 6.3 which places him in the prediabetes range, this can be monitored on an outpatient basis and diet adjusted, could consider medication moving forward depending on glucoses. On day of discharge patient does report breathing feels better, no abdominal pain, intermittently cooperative and oftentimes will not want to answer questions however no new or acute complaints on day of discharge. Discharge instructions as follows: DISCHARGE INSTRUCTIONS PLEASE READ *Please take this with you to your next doctors appointment* - Due to your pneumonia you will be discharged on additional 3 days of Augmentin - Resume your other home medications -You will be discharged with a Jasso catheter due to urinary retention, and is advised to continue on a scheduled bowel regimen due to severe constipation that likely caused or worsened urinary retention.? -Once bowel movements more regular can consider void trial or can consider outpatient urology evaluation -Please call your primary care provider's office upon discharge to schedule a hospital follow up within 1 week. -For any concerning signs or symptoms please call 911 or proceed to the nearest emergency department Physical Exam Narrative General: Woke up and answer questions appropriately at first however towards the end no longer wanted to answer questions a closed eyes HEENT: normocephalic Eyes: extraocular movements grossly intact Neck: Supple Respiratory: Improved respirations and aeration Cardiovascular: Regular rate and rhythm GI: Softer and nontender Musculoskeletal: Moving all extremities Neuro: No overt focal neurological deficits moving all extremities Skin: No overt rashes of appreciated Psych: Uncooperative Weight / BMI Weight Weight: 99.393 kg Body Mass Index (BMI) 32.3 ABG / Lab / Microbiology Data 01/07/25 07:09 01/07/25 07:09 Laboratory: Laboratory Results - last 24 hr 01/07/25 07:09: WBC 14.5 H, RBC 3.57 L, Hgb 10.6 L, Hct 31.7 L, MCV 88.8, MCH 29.7, MCHC 33.4, RDW Std Deviation 44.4 H, RDW Coeff of Kirk 13.8, Plt Count 232, MPV 10.2, Immature Gran % (Auto) 1.400 H, Neut % (Auto) 69.3, Lymph % (Auto) 19.8, [place] % (Auto) 7.5, Eos % (Auto) 1.6, Baso % (Auto) 0.4, Absolute Neuts (auto) 10.1 H, Absolute Lymphs (auto) 2.87, Nucleated RBC % 0, Sodium 142, Potassium 3.5, Chloride 109 H, Carbon Dioxide 21.5, Anion Gap 11, BUN 19, Creatinine 1.04, Estim Creat Clear Calc 70.24, Est GFR (MDRD) Non-Af 74, BUN/Creatinine Ratio 18.3, Glucose 111 H, Calcium 8.6 Microbiology: Microbiology 01/03/25 08:00 Blood Culture (Wb) - Anticubital Left Blood Culture - Preliminary No growth in 48 hours. 01/03/25 08:00 Blood Culture (Wb) - Anticubital Right Blood Culture - Preliminary No growth in 48 hours. D/C Instructions DC O2, CPAP, BIPAP Needs Home O2 Discharge instructions: Yes Type of respiratory needs?: Oxygen Oxygen frequency: Other Other oxygen liters per minute: 2 Other oxygen frequency: prn DC home with Oxygen: Yes Home O2 MD Review: I have reviewed the oxygen testing, and the patient qualifies for home oxygen equipment and portability. The patient is mobile in the home and the community. Meaningful Use Info Meaningful Use Meaningful Use Diagnoses (Choose all that apply): None applicable Discharge Plan Admission Admit Date/Time: 01/03/25 10:08 Primary Reason for Your Visit: Vomiting Attending Provider: Kendra Herrera Primary Care Provider: Simone Messer Consulting Providers: Ad Paulino Instructions Patient Instructions: ED Fall Prevention Additional Instructions / Restrictions: DISCHARGE INSTRUCTIONS PLEASE READ *Please take this with you to your next doctors appointment* - Due to your pneumonia you will be discharged on additional 3 days of Augmentin - Resume your other home medications -You will be discharged with a Jasso catheter due to urinary retention, and is advised to continue on a scheduled bowel regimen due to severe constipation that likely caused or worsened urinary retention.? -Once bowel movements more regular can consider void trial or can consider outpatient urology evaluation -Please call your primary care provider's office upon discharge to schedule a hospital follow up within 1 week. -For any concerning signs or symptoms please call 911 or proceed to the nearest emergency department Discharge Orders/Prescriptions Prescriptions: New sennosides-docusate sodium [Stimulant Laxative Plus] 8.6-50 mg Tablet 2 tab PO BID Qty: 0 0RF bisacodyl 10 mg Suppository 10 mg AR DAILY Qty: 0 0RF amoxicillin-pot clavulanate 875-125 mg tablet 1 tab PO BID 3 Days Qty: 6 0RF Continued levothyroxine 25 MCG tablet 50 mcg PO DAILY tamsulosin 0.4 MG capsule 0.4 mg PO QHS amlodipine 10 MG tablet 10 mg PO QHS ipratropium-albuterol 0.5 mg-3 mg(2.5 mg base)/3 mL solution for nebulization 3 ml inhalation Q4H PRN PRN (Reason: Wheezing) atorvastatin 10 mg tablet 10 mg PO QHS fluoxetine [Prozac] 10 mg Capsule 20 mg PO DAILY omeprazole 20 mg Capsule,Delayed Release(Dr/Ec) 20 mg PO DAILY clozapine 200 mg tablet 100 mg PO QHS cholecalciferol (vitamin D3) [Vitamin D3] 125 mcg (5,000 unit) Tablet 125 mcg PO DAILY lorazepam 0.5 mg tablet 0.5 mg PO DAILY lorazepam 1 mg tablet 1 mg PO BID clonazepam 0.5 mg tablet 0.5 mg PO TID trazodone 100 mg tablet 100 mg PO QHS PRN (Reason: insomnia) fluoxetine 20 mg capsule 20 mg PO DAILY cyanocobalamin (vitamin B-12) 1,000 mcg capsule 1,000 mcg PO DAILY Referrals / Follow Up: Simone Messer MD [Primary Care Provider, Family Practice] Disposition Disposition (needs filled in before D/C Order can be placed): NonSkilled NH/Intermed Care Charges/Coding Visit Charges Inpatient E&M: 98928 Disch Hosp >30min
--- NOTE | 2025-01-07 15:11 | CASEMGMT ---
Social Work Physician updated and pt is ready for discharge today. Pt agreeable to return to [facility]. DCA and bedside nurse notified of discharge. DCA to complete all final arrangements and notifications. Disposition: [facility]; return to intermediate level of care KAYA Trivedi
--- NOTE | 2025-01-07 16:23 | CASEMGMT ---
Discharge Planning Discharge orders, signed med list, and transport time sent to [facility]. Physicians will transport pt by cot at 5p. SW and nursing updated. VM left for pts guardian (Ashley). Kasie Daugherty DC Planning Asst.
--- NOTE | 2025-01-07 16:29 | NURSING ---
Report callde to Marcela at [facility] [phone]. Pt will be picked up at 17:00
== END 2025-01-07 18:30 | DRG 178 ==
LOC: ED 10:25 → MS3 10:48
PROVIDERS: Emergency Medicine; Admitting Provider Internal Medicine; Emergency Provider Emergency Medicine; PCP Family Medicine; Visit Provider Internal Medicine
DX: J69.0 Pneumonitis due to inhalation of food and vomit (principal); F03.94 Unspecified dementia, unspecified severity, with anxiety; D64.9 Anemia, unspecified; E03.9 Hypothyroidism, unspecified; I10 Essential (primary) hypertension; F32.A Depression, unspecified; E78.5 Hyperlipidemia, unspecified; K21.9 Gastro-esophageal reflux disease without esophagitis; K59.00 Constipation, unspecified; F41.9 Anxiety disorder, unspecified; R09.02 Hypoxemia; N40.1 Benign prostatic hyperplasia with lower urinary tract symptoms; R33.8 Other retention of urine; R73.03 Prediabetes; R45.1 Restlessness and agitation; Z79.890 Hormone replacement therapy; Z79.899 Other long term (current) drug therapy; Z86.16 Personal history of COVID-19; Z23 Encounter for immunization
CPT/HCPCS: 36415; 71045; 71275; 74174; 80048; 80076; 81001; 83036; 83605; 83690; 84145; 84484; 85025; 85027; 85610; 85730; 86850; 86900; 86901; 87040; 87086; 92526; 92610; 93005; 94640; 94667; 94668; 97802; 99285; Q9967; A4216

== ENCOUNTER 2025-01-15 20:15 | Emergency (ER) | payer MEDICARE, MEDICAID, SELFPAY ==
[2025-01-15] VITALS (7 sets, daily range): BP systolic 102–127; BP diastolic 74–108; PULSE 101–114; RESP 19–34; TEMP 36.3–36.8; O2SAT 95–100; BMI 25.9
--- NOTE | 2025-01-15 20:33 | EKG12_ITS ---
Test Reason : SOB Blood Pressure : */* mmHG Vent. Rate : 114 BPM Atrial Rate : 114 BPM P-R Int : 170 ms QRS Dur : 96 ms QT Int : 340 ms P-R-T Axes : 49 -43 51 degrees QTcB Int : 468 ms Sinus tachycardia Left axis deviation Incomplete right bundle branch block Abnormal ECG Confirmed by JULIO KAUFFMAN, TREE ([id number]), manuscript editor DORA BRUNSON ([id number]) on 01/20/2025 8:27:10 AM Referred By: Confirmed By: TREE KIM MD
--- NOTE | 2025-01-15 20:34 | ED.VIS.DYS ---
HPI History of Present Illness Chief Complaint: Shortness of Breath Narrative Narrative: History and physical limited secondary to dementia. Patient presents from [place] via EMS with complaint of shortness of breath and not being able to breathe. It was reported that he was not hypoxic at the alf, but started complaining that he could not breathe, calling out and yelling. They placed him on 4 L nasal cannula oxygen. Patient was reportedly recently discharged from the hospital on Monday, approximately 4 to 5 days ago. Patient continually yells out that he cannot breathe even though he is on nasal cannula oxygen. 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 07/04/22 Unknown History mcg (5,000 unit) tablet (Vitamin D3) clozapine 200 mg tablet 100 mg PO QHS anxiety 07/04/22 Unknown History fluoxetine 10 mg capsule (Prozac) 20 mg PO DAILY anxiety 07/04/22 Unknown History ipratropium 0.5 mg-albuterol 3 mg 3 ml inhalation Q4H PRN PRN 07/04/22 Unknown History (2.5 mg base)/3 mL nebulization Wheezing soln omeprazole 20 mg capsule,delayed 20 mg PO DAILY gerd 07/04/22 Unknown History release lorazepam 0.5 mg tablet 0.5 mg PO DAILY anxiety 03/19/24 Unknown History lorazepam 1 mg tablet 1 mg PO BID anxiety 03/19/24 Unknown History clonazepam 0.5 mg tablet 0.5 mg PO TID 01/03/25 Unknown History cyanocobalamin (vitamin B-12) 1,000 mcg PO DAILY 01/03/25 Unknown History 1,000 mcg capsule fluoxetine 20 mg capsule 20 mg PO DAILY 01/03/25 Unknown History trazodone 100 mg tablet 100 mg PO QHS PRN insomnia 01/03/25 Unknown History amoxicillin 875 mg-potassium 1 tab PO BID 3 days #6 tabs 01/07/25 Unknown Rx clavulanate 125 mg tablet bisacodyl 10 mg rectal suppository 10 mg FL DAILY #0 ea 01/07/25 Unknown Rx sennosides 8.6 mg-docusate sodium 2 tab PO BID #0 tabs 01/07/25 Unknown Rx 50 mg tablet (Stimulant Laxative Plus) Allergy/AdvReac Type Severity Reaction Status Date / Time No Known Allergies Allergy Verified 01/03/25 06:16 Social History Smoking Status: Never smoker ROS ROS ED ROS Narrative Unable to obtain from patient secondary to dementia. Reported shortness of breath and dyspnea per [facility] facility and EMS. Review of Systems ROS Unobtainable: due to mental condition EXAM Physical Exam Narrative Exam Narrative: Afebrile. Vital signs noted. Nontoxic-appearing. Cardiovascular examination reveals a regular tachycardia and rhythm. Lungs are clear to auscultation bilaterally. Abdomen is soft and nontender with normoactive bowel sounds. No guarding or rebound. Awake, alert, mildly agitated. Const Vital Signs: 01/15/25 20:17 01/15/25 20:20 01/15/25 20:43 Temperature 98.2 F 98.2 F Temperature Source Oral Oral Pulse Rate 114 H 110 H Respiratory Rate 20 H 34 H Respiratory Effort Respiratory Depth Respiratory Pattern Blood Pressure 121/108 H 127/77 H Blood Pressure Mean 112 93 Pulse Ox 100 100 Oxygen Delivery Method Nasal Cannula Nasal Cannula Nasal Cannula Oxygen Flow Rate (L/min) 5 5 2 01/15/25 20:44 01/15/25 21:20 01/15/25 22:00 Temperature 97.6 F L 97.4 F L Temperature Source Temporal Temporal Pulse Rate 101 H 108 H Respiratory Rate 22 H 19 H Respiratory Effort Labored Respiratory Depth Deep Respiratory Pattern Tachypnea Blood Pressure 102/78 108/79 Blood Pressure Mean 86 88 Pulse Ox 99 99 Oxygen Delivery Method Nasal Cannula Nasal Cannula Nasal Cannula Oxygen Flow Rate (L/min) 2 2 01/15/25 23:00 Temperature 97.8 F Temperature Source Temporal Pulse Rate 103 H Respiratory Rate 19 H Respiratory Effort Respiratory Depth Respiratory Pattern Blood Pressure 110/74 Blood Pressure Mean 86 Pulse Ox 99 Oxygen Delivery Method Nasal Cannula Oxygen Flow Rate (L/min) 2 MDM MDM MDM Narrative Medical decision making narrative: Differential diagnosis includes but not limited to COPD exacerbation versus pneumonia versus pneumothorax. I reviewed his prior records. He had been admitted previously with leukocytosis and suspected aspiration pneumonia. I reviewed his laboratory work from today and his white count is only slightly elevated at 11.5, improved when compared to prior labs, hemoglobin stable at 11.9, platelet count normal at 362. BMP is grossly normal with a normal BUN and normal creatinine, glucose elevated at 138 with anion gap normal at 14. VBG was obtained and he has a pH slightly elevated at 7.5 with a pCO2 low at 24.2. No evidence of CO2 retention. pO2 is low at 9.9 but this is a venous blood gas. Patient administered Haldol 2 mg intravenously. He is no longer shouting out. Multiple attempts were made by zinc furnace charger to contact his [employer]. However, I see no reason to readmit him to the hospital. He can wear oxygen as needed, but he is currently not hypoxic on 2 L nasal cannula. Patient will be discharged back to [facility]. Disposition is discharged in stable condition. History & Record Review Discussion w/independent historian: EMS personnel (Reviewed phone report) and Patient Lab Data Attestation: I reviewed the patient's lab results. Labs: Laboratory Results - last 24 hr 01/15/25 20:20 WBC 11.5 H RBC 4.04 L Hgb 11.9 L Hct 36.7 L MCV 90.8 MCH 29.5 MCHC 32.4 RDW Std Deviation 45.7 H RDW Coeff of Kirk 13.8 Plt Count 362 MPV 10.3 Immature Gran % (Auto) 2.400 H Neut % (Auto) 56.6 Lymph % (Auto) 28.5 [place] % (Auto) 10.8 H Eos % (Auto) 1.2 Baso % (Auto) 0.5 Absolute Neuts (auto) 6.5 Absolute Lymphs (auto) 3.27 Nucleated RBC % 0 Sodium 141 Potassium 4.1 Chloride 104 Carbon Dioxide 22.7 Anion Gap 14 BUN 18 Creatinine 1.11 Estim Creat Clear Calc 56.62 Est GFR (MDRD) Non-Af 69 BUN/Creatinine Ratio 15.9 Glucose 138 H Calcium 9.5 ABG Data ABG results: ABG 01/15/25 20:41 Specimen Type MELISSA Sample Site Not entered O2 % 2.0 VBG pH 7.58 H VBG pO2 < 12 L* VBG HCO3 23 VBG Total CO2 24 VBG O2 Sat (Calc) 13 L VBG Base Excess 1 POC Mix VBG pCO2 Pt Tmp 24.2 L O2 Delivery Device Cannula Crit Call To/Read Back Yes Blood Gas Notified Whom Brian Blood Gas Notified Time 20:43:12 Radiography Chest X-Ray - ED: 1 View, Read by ED Physician, Read by Radiologist and No Acute Disease Diagnostic Testing: Clinical Impression(s) from Imaging Studies Chest X-Ray 01/15/25 22:10 IMPRESSION: No Acute Findings. [facility] Discharge Plan Triage Chief Complaint: Shortness of Breath ED Provider: Kevin Torres Dx/Rx/DC Orders Clinical Impression: Dementia, Aggressive behavior due to dementia, Dyspnea Instructions: ED CAREGIVER SUPPORT for DEMENTIA, ED Dyspnea Prescriptions: No Action levothyroxine 25 MCG tablet 50 mcg PO DAILY tamsulosin 0.4 MG capsule 0.4 mg PO QHS amlodipine 10 MG tablet 10 mg PO QHS ipratropium-albuterol 0.5 mg-3 mg(2.5 mg base)/3 mL solution for nebulization 3 ml inhalation Q4H PRN PRN (Reason: Wheezing) atorvastatin 10 mg tablet 10 mg PO QHS fluoxetine [Prozac] 10 mg Capsule 20 mg PO DAILY omeprazole 20 mg Capsule,Delayed Release(Dr/Ec) 20 mg PO DAILY clozapine 200 mg tablet 100 mg PO QHS cholecalciferol (vitamin D3) [Vitamin D3] 125 mcg (5,000 unit) Tablet 125 mcg PO DAILY lorazepam 0.5 mg tablet 0.5 mg PO DAILY lorazepam 1 mg tablet 1 mg PO BID clonazepam 0.5 mg tablet 0.5 mg PO TID trazodone 100 mg tablet 100 mg PO QHS PRN (Reason: insomnia) fluoxetine 20 mg capsule 20 mg PO DAILY cyanocobalamin (vitamin B-12) 1,000 mcg capsule 1,000 mcg PO DAILY sennosides-docusate sodium [Stimulant Laxative Plus] 8.6-50 mg Tablet 2 tab PO BID Qty: 0 0RF bisacodyl 10 mg Suppository 10 mg FL DAILY Qty: 0 0RF amoxicillin-pot clavulanate 875-125 mg tablet 1 tab PO BID 3 Days Qty: 6 0RF Primary Care Provider: Simone Messer Referrals: Simone Messer MD [Primary Care Provider, Family Practice] - As soon as possible Activity Restrictions/Additional Instructions: Wear oxygen as needed. Your workup was negative today, no pneumonia on chest x-ray. Laboratory work is acceptable/within normal limits. Print Language: Ivorian Disposition Disposition[facility] Discharge [facility]: [facility]
[2025-01-15 20:46] LABS: FI02 2.0; SITE Not entered; VBG BASE EXCESS 1 mmol/L (-1.0-3.5); VBG PO2 < 12 mmHg (25-40); VBG SO2 13 % (50-70); VBG TCO2 24 mmol/L (23-33)
[2025-01-15 20:54] LABS: Hematocrit 36.7 % (40-54); Hemoglobin 11.9 g/dL (13.0-16.5); Immature Granulocytes Count 0.280 X10^3/uL (0.0-0.0); Mean Corp Hgb Conc 32.4 g/dL (32-36); Mean Corpuscular Volume 90.8 fL (80-94); Mean Platelet Vol. 10.3 fl (6.2-12.0); NRBC Flagged by Analyzer 0 % (0-5); Platelet Count 362 K/mm3 (150-450); RBC Distribution Width CV 13.8 % (11.6-14.6); RBC Distribution Width SD 45.7 fl (35.1-43.9); Red Blood Count 4.04 M/mm3 (4.6-6.2); White Blood Count 11.5 K/mm3 (4.4-11.0)
--- OUTSIDE RECORDS SUMMARY | 2025-01-15 21:04 | XMS RPT_ITS | CCD ---
Author Organization [facility] ion Partnership [facility] Care Team Providers Care Flame Degreaser Name Role Phone Jessi Austin Unavailable Loretta Rolle Primary Care Provider [phone] Dr. Simone Messer Primary Care Provider Dr. Mati Shaikh Emergency Provider [phone] Sreekanth Verma Admit Provider Dr. Sreekanth Verma Other Provider Dr. Donald Valdes Other Provider Dr. Peyton Crawford Other Provider Dr. Jerald Levine Attending Provider Dr. Peyton Crawford Attending Provider Dr. Peyton Crawford Referring Provider Loretta Rolle CNP Primary Care Provider [phone] Kendra Herrera Attending Unavailable Morris Paulino Consulting Unavailable Simone Messer Primary Care Unavailable Morris Paulino Admitting Unavailable Kendra Herrera Consulting Unavailable Darshan Quiroz Admitting Unavailable Darshan Quiroz Attending Unavailable Darshan Quiroz Consulting Unavailable Simone Messer Primary Care Unavailable Jose Taveras Attending Unavailable Simone Messer Primary Care Unavailable Simone Messer Primary Care Unavailable Kendra Herrera Attending Unavailable Morris Paulino Consulting Unavailable Morris Paulino Admitting Unavailable Darshan Quiroz Admitting Unavailable Darshan Quiroz Attending Unavailable Simone Messer Primary Care Unavailable Morris Paulino Attending Unavailable Allergies Allergy Classification Reported Allergen(s) Allergy Type Date of Onset Reaction(s) Facility (16 sources) Cortisone Drug Allergy 04-12-[address] [facility] Work Phone: Medications Current Medications Medication Drug Class(es) Dates Sig (Normalized) Sig (Original) acetaminophen 325 mg / HYDROcodone bitartrate 5 mg oral tablet (16 sources) Opioid Agonist take 1-2 tablets by mouth every four hours as needed HYDROcodone-aceta minophen (NORCO) 5-325 mg per tablet Take 1-2 tablets by mouth every 4 hours as needed. Active Comment on above: Take 1-2 tablets by mouth every 4 hours as needed. albuterol 0.833 mg/ml / ipratropium bromide 0.167 mg/ml inhalation solution (9 sources) Anticholinergic, beta2-Adrenergic Agonist Start: 07-04-2022 take 1 mL by inhalation every four hours as needed Ipratropium-Albut hieu Active 3 ML INHALATION EVERY 4 HOURS NEEDED July 04, 2022 12:00am Start: 07-29-2020 take 1 [IU] by inhal ation every four hours as needed Ipratropium-Albuterol 0.5-2.5 (3) MG/3ML Inhalation Solution USE 1 UNIT DOSE IN NEBULIZER EVERY 4 HOURS NEEDED. Quantity: 0 Refills: 0 Ordered: 29-Jul-2020 DO Start : 29-Jul-2020 Active aluminum hydroxide 40 mg/ml / magnesium hydroxide 40 mg/ml / simethicone 4 mg/ml oral suspension (16 sources) take 30 mL by mouth every six hours as needed aluminum-magnesium hydroxide-simethicone (MINTOX) 200-200-20 mg/5 mL suspension Take 30 mL by mouth every 6 hours as needed (for GI upset). Active Comment on above: Take 30 mL by mouth every 6 hours as needed (for GI upset). amLODIPine 10 mg oral tablet (20 sources) Dihydropyridine Calcium Channel Hipolito Start: 2016 take 1 tablet by mouth once daily amLODIPine (NORVASC) 10 mg tablet Take 1 tablet by mouth once daily. 0 09/23/2016 Active Comment on above: Take 1 tablet by milagros th once daily. atorvastatin 10 mg oral tablet (20 sources) HMG-CoA Reductase Inhibitor Start: 2022 take 10 mg by mouth at bedtime Atorvastatin Active 10 MG PO AT BEDTIME July 04, 2022 12:00am Start: 07-29-2020 take 1 tablet by milagros th at bedtime Atorvastatin Calcium 10 MG Oral Tablet TAKE 1 TABLET AT BEDTIME. Quantity: 0 Refills: 0 Ordered: 29-Jul-2020 DO Start : 29-Jul-2020 Active Comment on above: Take 10 mg by mouth once daily. cholecalciferol 0.125 mg oral tablet (9 sources) Vitamin D Start: 07-05-19 take 1 tablet by mouth once daily Cholecalciferol (Vitamin D3) (Vitamin D3) 125 mcg (5,000 unit) Tablet Active 125 MCG PO DAILY July 04, 2022 12:00am Start: 07-29-2020 take 1 tablet by milagros th once daily Vitamin D3 125 MCG (5000 UT) Oral Tablet Take 1 tablet daily Quantity: 0 Refills: 0 Ordered: 29-Jul-2020 DO Start : 29-Jul-2020 Active ciprofloxacin 500 mg oral tablet (2 sources) Quinolone Antimicrobial Start: 07-06-2022 take 500 mg by mouth twice daily Ciprofloxacin Hcl Active 500 MG PO TWICE A DAY July 06, 2022 12:00am cloZAPine 100 mg oral tablet (20 sources) Atypical Antipsychotic Start: 07-04-2022 take 100 mg by mouth once daily Clozapine Active 100 MG PO DAILY July 04, 2022 12:00am Start: 07-04-2022 take 200 mg by mouth at bedtim e Clozapine Active 200 MG PO AT BEDTIME July 04, 2022 12:00am Start: 07-29-2020 take 1 tablet by mouth once da trice cloZAPine 100 MG Oral Tablet TAKE 1 TABLET DAILY. Quantity: 0 Refills: 0 Ordered: 29-Jul-2020 DO Start : 29-Jul-2020 Active Start: 07-29-2020 take 1 tablet by mouth at bedt halle cloZAPine 200 MG Oral Tablet TAKE 1 TABLET Bedtime Quantity: 0 Refills: 0 Ordered: 29-Jul-2020 DO Start : 29-Jul-2020 Active Comment on above: Take 100 mg by mouth . Take 200 mg by mouth . famotidine 20 mg oral tablet (16 sources) Histamine-2 Receptor Antagonist take 1 tablet by mouth once daily at bedtime famotidine (PEPCID) 20 mg tablet Take 20 mg by mouth daily at bedtime. Active Comment on above: Take 20 mg by mouth daily at bedtime. FLUoxetine 10 mg oral capsule (19 sources) Serotonin Reuptake Inhibitor Start: 07-04-2022 take 1 capsule by mouth once daily Fluoxetine (Prozac) 10 mg Capsule Active 10 MG PO DAILY July 04, 2022 12:00am Start: 09-23-2016 take 1 capsule by [facility] once daily FLUoxetine HCl (PROZAC) 40 mg capsule Take 1 capsule by mouth once daily. 0 09/23/2016 Active Comment on above: Take 1 capsule by [facility] once daily. hydrOXYzine hydrochloride 25 mg oral tablet (16 sources) Antihistamine Start: 09-24-19 17 take 1 tablet by mouth once daily at bedtime hydrOXYzine HCl (ATARAX) 25 mg tablet Take 25 mg by mouth daily at bedtime. 0 09/23/2016 Active Comment on above: Take 25 mg by mouth daily at bedtime. lamoTRIgine 150 mg oral tablet (16 sources) Mood Stabilizer, Anti-epileptic Agent lamoTRIgine (LAMICTAL) 150 mg tablet Take 75 mg by mouth twice daily. Active Comment on above: Take 75 mg by mouth twice daily. lisinopril 10 mg oral tablet (16 sources) Angiotensin Converting Enzyme Inhibitor Start: 09-24-19 17 take 1 tablet by mouth once daily lisinopril (ZESTRIL, PRINIVIL) 10 mg tablet Take 1 tablet by mouth once daily. 0 09/23/2016 Active Comment on above: Take 1 tablet by [facility] once daily. mag hydrox/aluminum hyd/simeth (ANTACID LIQUID ORAL) (16 sources) take 30 mL by mouth every eight hours as needed mag hydrox/aluminum hyd/simeth (ANTACID LIQUID ORAL) Take 30 mL by mouth three times daily as needed. Active take 30 mL by mouth every eight hours as needed mag hydrox/aluminum hyd/simeth (ANTACID LIQUID ORAL) Take 30 mL by mouth three times daily as needed. 0 Active Comment on above: Take 30 mL by mouth three times daily as needed. melatonin 3 mg oral tablet (16 sources) melatonin 3 mg tablet Take by mouth daily at bedtime. Active Comment on above: Take by mouth daily at bedtime. metFORMIN hydrochloride 500 mg oral tablet (16 sources) Biguanide Start: take 1 tablet by mouth twice daily at mealtime metFORMIN (GLUCOPHAGE) 500 mg tablet Take 1 tablet by mouth twice daily with meals. 0 09/23/2016 Active Comment on above: Take 1 tablet by milagros th twice daily with meals. metroNIDAZOLE 500 mg oral tablet (2 sources) Nitroimidazole Antimicrobial Start: take 500 mg by mouth twice daily Metronidazole Active 500 MG PO TWICE A DAY July 06, 2022 12:00am mirtazapine 15 mg oral tablet (16 sources) Start: take 7.5 mg by mouth once daily at bedtime mirtazapine (REMERON) 15 mg tablet Take 7.5 mg by mouth daily at bedtime. 0 09/23/2016 Active Comment on above: Take 7.5 mg by mouth daily at bedtime. montelukast 10 mg oral tablet (16 sources) Leukotriene Receptor Antagonist take 1 tablet by mouth once daily at bedtime montelukast (SINGULAIR) 10 mg tablet Take 10 mg by mouth daily at bedtime. Active Comment on above: Take 10 mg by mouth daily at bedtime. OLANZapine 10 mg oral tablet (16 sources) Atypical Antipsychotic Start: take 1 tablet by mouth once daily at bedtime OLANZapine (ZYPREXA) 10 mg tablet Take 1 tablet by mouth daily at bedtime. 0 09/23/2016 Active Comment on above: Take 1 tablet by milagros th daily at bedtime. omega-3 acid ethyl esters (half-way) 1000 mg oral capsule (16 sources) omega-3 acid eth yl esters (LOVAZA) 1 gram capsule Take 2 g by mouth twice daily. on rising and bedtime Active Comment on above: Take 2 g by mouth tw ice daily. on rising and bedtime omeprazole 20 mg delayed release oral capsule (4 sources) Proton Pump Inhibitor Start: take 20 mg by mouth once daily Omeprazole Active 20 MG PO DAILY July 04, 2022 12:00am Start: 05-10-2021 take 1 capsule by mo [facility] once daily before breakfast Omeprazole 20 MG Oral Capsule Delayed Release TAKE 1 CAPSULE DAILY EVERY MORNING BEFORE BREAKFAST. Quantity: 0 Refills: 0 Ordered: 10-May-2021 DO Start : 7-Mar-2022 Active ondansetron 8 mg oral tablet (16 sources) Serotonin-3 Receptor Antagonist take 1 tablet by mouth every eight hours as needed ondansetron (ZOFRAN) 8 mg tablet Take 8 mg by mouth every 8 hours as needed. Active Comment on above: Take 8 mg by mouth e very 8 hours as needed. pantoprazole 40 mg delayed release oral tablet (16 sources) Proton Pump Inhibitor take 1 tablet by mouth once daily pantoprazole DR (PROTONIX) 40 mg tablet Take 40 mg by mouth once daily. Active Comment on above: Take 40 mg by mouth once daily. sucralfate 1000 mg oral tablet (16 sources) Aluminum Complex take 1 tablet by mouth at bedtime sucralfate (CARAFATE) 1 gram tablet Take 1 g by mouth before meals and at bedtime. Active Comment on above: Take 1 g by mouth be fore meals and at bedtime. vitamin b12 0.5 mg oral tablet (16 sources) Vitamin B12 Start: 09-24-19 17 cyanocobalamin (VITAMIN B-12) 500 mcg tab Take by mouth once daily. 0 09/23/2016 Active Comment on above: Take by mouth once d aily. Completed/Discontinued Medications Medication Drug Class(es) Dates Sig (Normalized) Sig (Original) acetaminophen 325 mg oral tablet (20 sources) Start: 07-29-2020 take 1-2 tablets by mouth every six hours as needed Tylenol 325 MG Oral Tablet TAKE 1 TO 2 TABLETS EVERY 6 HOURS NEEDED. Quantity: 0 Refills: 0 Ordered: 29-Jul-2020 DO Start : 29-Jul-2020 Active take 2 tablets by [facility] every four hours as needed acetaminophen (PHARBETOL) 325 mg tablet Take 650 mg by mouth every 4 hours as needed. Active Comment on above: Take 650 mg by mouth every 4 hours as needed. carbamide peroxide 65 mg/ml otic solution (15 sources) carbamide peroxi de (DEBROX) 6.5 % otic solution Use 5 Drops in both ears twice daily. 0 Active Comment on above: Use 5 Drops in both ears twice daily. cholecalciferol, vitamin D3, (VITAMIN D3 ORAL) (15 sources) cholecalciferol, vitamin D3, (VITAMIN D3 ORAL) Take by mouth. 0 Active Comment on above: Take by mouth. docusate sodium 100 mg oral capsule (20 sources) Start: 1 take 1 capsule by mouth twice daily Docusate Sodium 100 MG Oral Capsule TAKE 1 CAPSULE TWICE DAILY. Quantity: 0 Refills: 0 Ordered: 29-Jul-2020 DO Start : 29-Jul-2020 Active Comment on above: Take 100 mg by mouth twice daily. ipratropium/albuterol sulfate (IPRATROPIUM-ALBUTEROL INHALATION) (15 sources) ipratropium/albu terol sulfate (IPRATROPIUM-ALBUTERO L INHALATION) Inhale as instructed. 0 Active Comment on above: Inhale as instructed . levothyroxine sodium 0.05 mg oral capsule (20 sources) l-Thyroxine Start: 1 take 1 capsule by mouth once daily before breakfast Levothyroxine Sodium 50 MCG Oral Capsule TAKE 1 CAPSULE BY MOUTH EVERY MORNING BEFORE BREAKFAST ON EMPTY STOMACH Quantity: 0 Refills: 0 Ordered: 29-Jul-2020 DO Start : 29-Jul-2020 Active Start: 07-30-2017 take 50 ug by mouth once daily Levothyroxine Active 50 MCG PO DAILY July 30, 2017 12:00am Start: 09-23-2016 take 1 tablet by milagros th once daily before breakfast levothyroxine (SYNTHROID) 25 mcg tablet Take 1 tablet by mouth daily before breakfast. 0 09/23/2016 Active Comment on above: Take 1 tablet by milagros th daily before breakfast. sodium chloride 0.111 meq/ml nasal spray (1 source) Start: 2 take 2 spray(s) nasal route twice daily [place] Nasal [place] 0.65 % Nasal Solution USE 2 SPRAYS IN EACH NOSTRIL TWICE DAILY. Quantity: 0 Refills: 0 Ordered: 10-May-2021 DO Start : 10-May-2021 Active tamsulosin hydrochloride 0.4 mg oral capsule (20 sources) alpha-Adrenergic Hipolito Start: 2 take 2 capsules by mouth once daily at bedtime Tamsulosin HCl - 0.4 MG Oral Capsule TAKE 2 CAPSULE Daily 1/2 hour after same meal or at bedtime with snack Quantity: 180 Refills: 2 Ordered: 10-May-2021 DO Start : 10-May-2021 Active Start: 07-30-2017 take 0.4 mg by mouth at bedtim e Tamsulosin Active 0.4 MG PO AT BEDTIME July 30, 2017 12:00am take 0.8 mg by mouth once daily at bedtime tamsulosin ER (FLOMAX) 0.4 mg cp24 Take 0.8 mg by mouth daily at bedtime. Active Comment on above: Take 0.8 mg by mouth daily at bedtime. Problems Active Problems Problem Classification Problem Date Documented Da te Episodic/Chronic Acute and unspecified renal failure (6 sources) Injury of kidney; Translations: [Acute kidney failure, unspecified] 07-04-2022 Episodic Aspiration pneumonitis; food/vomitus (2 sources) Pneumonitis due to inhalation of food and vomit; Translations: [Pneumonitis due to inhalation of food and vomit] Onset: 5 Episodic Biliary tract disease (1 source) Gallbladder calculus with acute cholecystitis and no obstruction; Translations: [Calculus of gallbladder with acute and chronic cholecystitis without obstruction] Episodic Calculus of urinary tract (6 sources) Kidney stone; Translations: [Calculus of kidney] Episodic Chronic kidney disease (3 sources) Chronic kidney disease stage 3; Translations: [Stage 3 chronic kidney disease, unspecified whether stage 3a or 3b CKD (HCC)] Chronic Delirium, dementia, and amnestic and other cognitive disorders (6 sources) Dementia; Translations: [Dementia, unspecified, without behavioral disturbance] Chronic Diabetes mellitus with complications (9 sources) Type 2 diabetes mellitus; Translations: [Diabetes with other specified manifestations, type II or unspecified type, not stated as uncontrolled] 07-30-2017 Chronic Diabetes mellitus without complication (5 sources) Diabetes mellitus without complication; Translations: [Type 2 diabetes mellitus without complications] Chronic Diabetes mellitus without complication (1 source) Prediabetes; Translations: [Prediabetes] Onset: 5 Episodic Diseases of white blood cells (7 sources) Leukocytosis; Translations: [Elevated white blood cell count, unspecified] Onset: 5 07-04-2022 Chronic Disorders of lipid metabolism (8 sources) Hyperlipidemia; Translations: [Other and unspecified hyperlipidemia] Chronic E Codes: Fall (5 sources) Fall; Translations: [Unspecified fall, initial encounter] 07-04-2022 Episodic Esophageal disorders (1 source) Gastroesophageal reflux disease; Translations: [Esophageal reflux] Chronic Essential hypertension (20 sources) Hypertensive disorder; Translations: [Unspecified essential hypertension] Onset: 1 05-30-2020 Chronic Genitourinary symptoms and ill-defined conditions (1 source) Retention of urine, unspecified; Translations: [Retention of urine, unspecified] Onset: 5 Episodic Hyperplasia of prostate (12 sources) Benign prostatic hypertrophy with outflow obstruction; Translations: [Hypertrophy (benign) of prostate with urinary obstruction and other lower urinary tract symptoms (LUTS)] Chronic Malaise and fatigue (3 sources) Fatigue; Translations: [Other fatigue] 07-31-2017 Episodic Nausea and vomiting (3 sources) Nausea; Translations: [Nausea] 07-31-2017 Episodic Noninfectious gastroenteritis (6 sources) Gastroenteritis; Translations: [Noninfective gastroenteritis and colitis, unspecified] 07-04-2022 Episodic Open wounds of head; neck; and trunk (6 sources) Laceration of left eyebrow; Translations: [Laceration without foreign body of left eyelid and periocular area, initial encounter] 07-04-2022 Episodic Other circulatory disease (3 sources) Low blood pressure; Translations: [Hypotension, unspecified] 07-04-2022 Episodic Other circulatory disease (3 sources) Hypotension, unspecified; Translations: [Hypotension, unspecified] 07-04-2022 Episodic Other connective tissue disease (9 sources) Muscle weakness; Translations: [Muscle weakness (generalized)] Episodic Other diseases of kidney and ureters (9 sources) Renal mass; Translations: [Unspecified disorder of kidney and ureter] Chronic Other diseases of kidney and ureters (6 sources) Cyst of kidney; Translations: [Cystic kidney disease, unspecified] Episodic Other gastrointestinal disorders (9 sources) Constipation; Translations: [Constipation, unspecified] Episodic Other gastrointestinal disorders (1 source) Heartburn; Translations: [Heartburn] Episodic Other gastrointestinal disorders (4 sources) Diarrhea; Translations: [Diarrhea, unspecified] Episodic Other gastrointestinal disorders (3 sources) Diarrhea, unspecified; Translations: [Diarrhea] 07-04-2022 Episodic Other gastrointestinal disorders (1 source) Constipation, unspecified; Translations: [Constipation, unspecified] Onset: 5 Episodic Other hereditary and degenerative nervous system conditions (6 sources) Impaired cognition; Translations: [Mild cognitive impairment, so stated] Chronic Other hereditary and degenerative nervous system conditions (6 sources) Subacute dyskinesia due to drug; Translations: [Subacute dyskinesia due to drugs] Episodic Other injuries and conditions due to external causes (3 sources) Injury of head; Translations: [Unspecified injury of head, initial encounter] 07-04-2022 Episodic Other injuries and conditions due to external causes (3 sources) Unspecified injury of head, initial encounter; Translations: [Head injury, unspecified] 07-04-2022 Episodic Other lower respiratory disease (6 sources) Wheezing symptom; Translations: [Wheezing] Episodic Other nervous system disorders (6 sources) Unsteady when standing; Translations: [Abnormality of gait] Episodic Other nervous system disorders (6 sources) Incoordination; Translations: [Lack of coordination] Episodic Other nervous system disorders (6 sources) Symbolic dysfunction; Translations: [Symbolic dysfunction, unspecified] Episodic Other nutritional; endocrine; and metabolic disorders (1 source) Weight loss; Translations: [Abnormal weight loss] Episodic Other upper respiratory disease (1 source) Congestion of nasal sinus; Translations: [Other disease of nasal cavity and sinuses] Episodic Other upper respiratory disease (2 sources) Nasal discharge; Translations: [Other specified disorders of nose and nasal sinuses] Episodic Residual codes; unclassified (9 sources) Auditory hallucinations; Translations: [Hallucinations] 12-04-2019 Episodic Residual codes; unclassified (12 sources) Altered mental status; Translations: [Altered mental status] Resolved: 1 Episodic Residual codes; unclassified (6 sources) History of clinical finding in subject; Translations: [Personal history of noncompliance with medical treatment, presenting hazards to health] Episodic Residual codes; unclassified (1 source) Pain; Translations: [Pain, unspecified] 07-22-2020 Episodic Schizophrenia and other psychotic disorders (20 sources) Atypical psychosis; 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 Thyroid disorders (20 sources) Acquired hypothyroidism; Translations: [Unspecified acquired hypothyroidism] Onset: 1 05-30-2020 Chronic Viral infection (5 sources) Disease caused by 2019-nCoV; Translations: [COVID-19] 07-04-2022 Episodic Past or Other Problems Problem Classification Problem Date Documented Da te Episodic/Chronic Fracture of upper limb (19 sources) Fracture of metacarpal bone; Translations: [Unspecified fracture of unspecified metacarpal bone, initial encounter for closed fracture] Onset: 03-20-2020 03-20-2020 Episodic Other gastrointestinal disorders (16 sources) Slow transit constipation; Translations: [Slow transit constipation] Onset: 03-15-2020 03-15-2020 Episodic Pneumonia (except that caused by tuberculosis or sexually transmitted disease) (1 source) Pneumonia, unspecified organism; Translations: [Pneumonia, unspecified organism] Onset: 03-22-2024 Episodic Residual codes; unclassified (1 source) Altered mental status, unspecified; Translations: [Altered mental status, unspecified] Onset: 04-02-2024 Episodic Septicemia (except in labor) (8 sources) Sepsis; Translations: [Sepsis, unspecified organism] Onset: 03-22-2024 07-04-2022 Episodic Results Test Name Value Interpretation Reference Range Facility Basic Metabolic Profile (BMP )on 01-11-2025 BUN Normal 4-19 [facility] Comment on above: Result Comment: Canc elled via OM: Order cancelled - Patient discharged Performed By: #### L 100.0100, L500.2500 #### [facility] [address] [facility] [address] BUN/CRE Normal 10-20 [facility] Comment on above: Result Comment: Canc elled via OM: Order cancelled - Patient discharged Performed By: #### L 100.0100, L500.2500 #### [facility] [address] [place], [address] Calcium Normal 7.6-11.0 [facility] Comment on above: Result Comment: Canc elled via OM: Order cancelled - Patient discharged Performed By: #### L 100.0100, L500.2500 #### [facility] [address] [place], [address] CL Normal 98-108 [facility] Comment on above: Result Comment: Canc elled via OM: Order cancelled - Patient discharged Performed By: #### L 100.0100, L500.2500 #### [facility] [address] [place], [address] CO2 Normal 21.0-32.0 [facility] Comment on above: Result Comment: Canc elled via OM: Order cancelled - Patient discharged Performed By: #### L 100.0100, L500.2500 #### [facility] [address] [place], [address] CREAT,SERUM Normal 0.70-1.20 [facility] Comment on above: Result Comment: Canc elled via OM: Order cancelled - Patient discharged Performed By: #### L 100.0100, L500.2500 #### [facility] [address] [place], [address] eGFR Normal >60 [facility] Comment on above: Result Comment: Canc elled via OM: Order cancelled - Patient discharged Performed By: #### L 100.0100, L500.2500 #### [facility] [address] [place], [address] GAP Normal 5-15 [facility] Comment on above: Result Comment: Canc elled via OM: Order cancelled - Patient discharged Performed By: #### L 100.0100, L500.2500 #### [facility] [address] [place], [address] GLU Normal 70-99 [facility] Comment on above: Result Comment: Canc elled via OM: Order cancelled - Patient discharged Performed By: #### L 100.0100, L500.2500 #### [facility] [address] [place], [address] Potassium Normal 3.3-5.1 [facility] Comment on above: Result Comment: Canc elled via OM: Order cancelled - Patient discharged Performed By: #### L 100.0100, L500.2500 #### [facility] [address] [place], [address] Basic Metabolic Profile (BMP) Normal 133-145 [facility] Comment on above: Result Comment: Canc elled via OM: Order cancelled - Patient discharged Performed By: #### L 100.0100, L500.2500 #### [facility] [address] [place], [address] CBC W/Diff, Automatedon 11-0 -2024 Absolute Neut Normal 2.0-7.7 [facility] Comment on above: Result Comment: Canc elled via OM: Order cancelled - Patient discharged Performed By: #### L 100.0100, L500.2500 #### [facility] [address] [place], [address] HCT Normal 40-54 [facility] Comment on above: Result Comment: Canc elled via OM: Order cancelled - Patient discharged Performed By: #### L 100.0100, L500.2500 #### [facility] [address] [place], [address] HGB Normal 13.0-16.5 [facility] Comment on above: Result Comment: Canc elled via OM: Order cancelled - Patient discharged Performed By: #### L 100.0100, L500.2500 #### [facility] [address] [place], [address] MCH Normal 27.0-32.0 [facility] Comment on above: Result Comment: Canc elled via OM: Order cancelled - Patient discharged Performed By: #### L 100.0100, L500.2500 #### [facility] [address] [place], [address] MCHC Normal 32-36 [facility] Comment on above: Result Comment: Canc elled via OM: Order cancelled - Patient discharged Performed By: #### L 100.0100, L500.2500 #### [facility] [address] [place], [address] MCV Normal 80-94 [facility] Comment on above: Result Comment: Canc elled via OM: Order cancelled - Patient discharged Performed By: #### L 100.0100, L500.2500 #### [facility] [address] [place], [address] NEUT% Normal 47-70 [facility] Comment on above: Result Comment: Canc elled via OM: Order cancelled - Patient discharged Performed By: #### L 100.0100, L500.2500 #### [facility] [address] [place], [address] PLT Normal 150-450 [facility] Comment on above: Result Comment: Canc elled via OM: Order cancelled - Patient discharged Performed By: #### L 100.0100, L500.2500 #### [facility] [address] [place], [address] RBC Normal 4.6-6.2 [facility] Comment on above: Result Comment: Canc elled via OM: Order cancelled - Patient discharged Performed By: #### L 100.0100, L500.2500 #### [facility] [address] [place], [address] RDW CV Normal 11.6-14.6 [facility] Comment on above: Result Comment: Canc elled via OM: Order cancelled - Patient discharged Performed By: #### L 100.0100, L500.2500 #### [facility] [address] [place], [address] RDW SD Normal 35.1-43.9 [facility] Comment on above: Result Comment: Canc elled via OM: Order cancelled - Patient discharged Performed By: #### L 100.0100, L500.2500 #### [facility] [address] [place], [address] WBC Normal 4.4-11.0 [facility] Comment on above: Result Comment: Canc elled via OM: Order cancelled - Patient discharged Performed By: #### L 100.0100, L500.2500 #### [facility] [address] [place], [address] Basic Metabolic Profile (BMP )on 01-10-2025 BUN Normal 4-19 [facility] Comment on above: Result Comment: Canc elled via OM: Order cancelled - Patient discharged Performed By: #### L 100.0100, L500.2500 #### [facility] [address] [place], [address] BUN/CRE Normal 10-20 [facility] Comment on above: Result Comment: Canc elled via OM: Order cancelled - Patient discharged Performed By: #### L 100.0100, L500.2500 #### [facility] [address] [place], [address] Calcium Normal 7.6-11.0 [facility] Comment on above: Result Comment: Canc elled via OM: Order cancelled - Patient discharged Performed By: #### L 100.0100, L500.2500 #### [facility] [address] [place], [address] CL Normal 98-108 [facility] Comment on above: Result Comment: Canc elled via OM: Order cancelled - Patient discharged Performed By: #### L 100.0100, L500.2500 #### [facility] [address] [place], [address] CO2 Normal 21.0-32.0 [facility] Comment on above: Result Comment: Canc elled via OM: Order cancelled - Patient discharged Performed By: #### L 100.0100, L500.2500 #### [facility] [address] [place], [address] CREAT,SERUM Normal 0.70-1.20 [facility] Comment on above: Result Comment: Canc elled via OM: Order cancelled - Patient discharged Performed By: #### L 100.0100, L500.2500 #### [facility] [address] [place], [address] eGFR Normal >60 [facility] Comment on above: Result Comment: Canc elled via OM: Order cancelled - Patient discharged Performed By: #### L 100.0100, L500.2500 #### [facility] [address] [place], [address] GAP Normal 5-15 [facility] Comment on above: Result Comment: Canc elled via OM: Order cancelled - Patient discharged Performed By: #### L 100.0100, L500.2500 #### [facility] [address] [place], [address] GLU Normal 70-99 [facility] Comment on above: Result Comment: Canc elled via OM: Order cancelled - Patient discharged Performed By: #### L 100.0100, L500.2500 #### [facility] [address] [place], [address] Potassium Normal 3.3-5.1 [facility] Comment on above: Result Comment: Canc elled via OM: Order cancelled - Patient discharged Performed By: #### L 100.0100, L500.2500 #### [facility] [address] [place], [address] Basic Metabolic Profile (BMP) Normal 133-145 [facility] Comment on above: Result Comment: Canc elled via OM: Order cancelled - Patient discharged Performed By: #### L 100.0100, L500.2500 #### [facility] [address] [place], [address] CBC W/Diff, Automatedon 11-0 Absolute Neut Normal 2.0-7.7 [facility] Comment on above: Result Comment: Canc elled via OM: Order cancelled - Patient discharged Performed By: #### L 100.0100, L500.2500 #### [facility] [address] [place], [address] HCT Normal 40-54 [facility] Comment on above: Result Comment: Canc elled via OM: Order cancelled - Patient discharged Performed By: #### L 100.0100, L500.2500 #### [facility] [address] [place], [address] HGB Normal 13.0-16.5 [facility] Comment on above: Result Comment: Canc elled via OM: Order cancelled - Patient discharged Performed By: #### L 100.0100, L500.2500 #### [facility] [address] [place], [address] MCH Normal 27.0-32.0 [facility] Comment on above: Result Comment: Canc elled via OM: Order cancelled - Patient discharged Performed By: #### L 100.0100, L500.2500 #### [facility] [address] [place], [address] MCHC Normal 32-36 [facility] Comment on above: Result Comment: Canc elled via OM: Order cancelled - Patient discharged Performed By: #### L 100.0100, L500.2500 #### [facility] [address] [place], [address] MCV Normal 80-94 [facility] Comment on above: Result Comment: Canc elled via OM: Order cancelled - Patient discharged Performed By: #### L 100.0100, L500.2500 #### [facility] [address] [place], [address] NEUT% Normal 47-70 [facility] Comment on above: Result Comment: Canc elled via OM: Order cancelled - Patient discharged Performed By: #### L 100.0100, L500.2500 #### [facility] [address] [place], [address] PLT Normal 150-450 [facility] Comment on above: Result Comment: Canc elled via OM: Order cancelled - Patient discharged Performed By: #### L 100.0100, L500.2500 #### [facility] [address] [place], [address] RBC Normal 4.6-6.2 [facility] Comment on above: Result Comment: Canc elled via OM: Order cancelled - Patient discharged Performed By: #### L 100.0100, L500.2500 #### [facility] [address] [place], [address] RDW CV Normal 11.6-14.6 [facility] Comment on above: Result Comment: Canc elled via OM: Order cancelled - Patient discharged Performed By: #### L 100.0100, L500.2500 #### [facility] [address] [place], [address] RDW SD Normal 35.1-43.9 [facility] Comment on above: Result Comment: Canc elled via OM: Order cancelled - Patient discharged Performed By: #### L 100.0100, L500.2500 #### [facility] [address] [place], [address] WBC Normal 4.4-11.0 [facility] Comment on above: Result Comment: Canc elled via OM: Order cancelled - Patient discharged Performed By: #### L 100.0100, L500.2500 #### [facility] [address] [place], [address] Basic Metabolic Profile (BMP )on 01-09-2025 BUN Normal 4-19 [facility] Comment on above: Result Comment: Canc elled via OM: Order cancelled - Patient discharged Performed By: #### L 100.0100, L500.2500 #### [facility] [address] [place], [address] BUN/CRE Normal 10-20 [facility] Comment on above: Result Comment: Canc elled via OM: Order cancelled - Patient discharged Performed By: #### L 100.0100, L500.2500 #### [facility] [address] [place], [address] Calcium Normal 7.6-11.0 [facility] Comment on above: Result Comment: Canc elled via OM: Order cancelled - Patient discharged Performed By: #### L 100.0100, L500.2500 #### [facility] [address] [place], [address] CL Normal 98-108 [facility] Comment on above: Result Comment: Canc elled via OM: Order cancelled - Patient discharged Performed By: #### L 100.0100, L500.2500 #### [facility] [address] [place], [address] CO2 Normal 21.0-32.0 [facility] Comment on above: Result Comment: Canc elled via OM: Order cancelled - Patient discharged Performed By: #### L 100.0100, L500.2500 #### [facility] [address] [place], [address] CREAT,SERUM Normal 0.70-1.20 [facility] Comment on above: Result Comment: Canc elled via OM: Order cancelled - Patient discharged Performed By: #### L 100.0100, L500.2500 #### [facility] [address] [place], [address] eGFR Normal >60 [facility] Comment on above: Result Comment: Canc elled via OM: Order cancelled - Patient discharged Performed By: #### L 100.0100, L500.2500 #### [facility] [address] [place], [address] GAP Normal 5-15 [facility] Comment on above: Result Comment: Canc elled via OM: Order cancelled - Patient discharged Performed By: #### L 100.0100, L500.2500 #### [facility] [address] [place], [address] GLU Normal 70-99 [facility] Comment on above: Result Comment: Canc elled via OM: Order cancelled - Patient discharged Performed By: #### L 100.0100, L500.2500 #### [facility] [address] [place], [address] Potassium Normal 3.3-5.1 [facility] Comment on above: Result Comment: Canc elled via OM: Order cancelled - Patient discharged Performed By: #### L 100.0100, L500.2500 #### [facility] [address] [place], [address] Basic Metabolic Profile (BMP) Normal 133-145 [facility] Comment on above: Result Comment: Canc elled via OM: Order cancelled - Patient discharged Performed By: #### L 100.0100, L500.2500 #### [facility] [address] [place], [address] CBC W/Diff, Automatedon 11-0 -2024 Absolute Neut Normal 2.0-7.7 [facility] Comment on above: Result Comment: Canc elled via OM: Order cancelled - Patient discharged Performed By: #### L 100.0100, L500.2500 #### [facility] [address] [place], [address] HCT Normal 40-54 [facility] Comment on above: Result Comment: Canc elled via OM: Order cancelled - Patient discharged Performed By: #### L 100.0100, L500.2500 #### [facility] [address] [place], [address] HGB Normal 13.0-16.5 [facility] Comment on above: Result Comment: Canc elled via OM: Order cancelled - Patient discharged Performed By: #### L 100.0100, L500.2500 #### [facility] [address] [place], [address] MCH Normal 27.0-32.0 [facility] Comment on above: Result Comment: Canc elled via OM: Order cancelled - Patient discharged Performed By: #### L 100.0100, L500.2500 #### [facility] [address] [place], [address] MCHC Normal 32-36 [facility] Comment on above: Result Comment: Canc elled via OM: Order cancelled - Patient discharged Performed By: #### L 100.0100, L500.2500 #### [facility] [address] [place], [address] MCV Normal 80-94 [facility] Comment on above: Result Comment: Canc elled via OM: Order cancelled - Patient discharged Performed By: #### L 100.0100, L500.2500 #### [facility] [address] [place], [address] NEUT% Normal 47-70 [facility] Comment on above: Result Comment: Canc elled via OM: Order cancelled - Patient discharged Performed By: #### L 100.0100, L500.2500 #### [facility] [address] [place], [address] PLT Normal 150-450 [facility] Comment on above: Result Comment: Canc elled via OM: Order cancelled - Patient discharged Performed By: #### L 100.0100, L500.2500 #### [facility] [address] [place], [address] RBC Normal 4.6-6.2 [facility] Comment on above: Result Comment: Canc elled via OM: Order cancelled - Patient discharged Performed By: #### L 100.0100, L500.2500 #### [facility] [address] [place], [address] RDW CV Normal 11.6-14.6 [facility] Comment on above: Result Comment: Canc elled via OM: Order cancelled - Patient discharged Performed By: #### L 100.0100, L500.2500 #### [facility] [address] [place], [address] RDW SD Normal 35.1-43.9 [facility] Comment on above: Result Comment: Canc elled via OM: Order cancelled - Patient discharged Performed By: #### L 100.0100, L500.2500 #### [facility] [address] [place], [address] WBC Normal 4.4-11.0 [facility] Comment on above: Result Comment: Canc elled via OM: Order cancelled - Patient discharged Performed By: #### L 100.0100, L500.2500 #### [facility] [address] [place], [address] Basic Metabolic Profile (BMP )on 01-08-2025 BUN Normal 4-19 [facility] Comment on above: Result Comment: Canc elled via OM: Order cancelled - Patient discharged Performed By: #### L 499.0043 #### [facility] [address] [place], [address] BUN/CRE Normal 10-20 [facility] Comment on above: Result Comment: Canc elled via OM: Order cancelled - Patient discharged Performed By: #### L 499.0043 #### [facility] [address] [place], [address] Calcium Normal 7.6-11.0 [facility] Comment on above: Result Comment: Canc elled via OM: Order cancelled - Patient discharged Performed By: #### L 499.0043 #### [facility] [address] [place], [address] CL Normal 98-108 [facility] Comment on above: Result Comment: Canc elled via OM: Order cancelled - Patient discharged Performed By: #### L 499.0043 #### [facility] [address] [place], [address] CO2 Normal 21.0-32.0 [facility] Comment on above: Result Comment: Canc elled via OM: Order cancelled - Patient discharged Performed By: #### L 499.0043 #### [facility] [address] [place], [address] CREAT,SERUM Normal 0.70-1.20 [facility] Comment on above: Result Comment: Canc elled via OM: Order cancelled - Patient discharged Performed By: #### L 499.0043 #### [facility] [address] [place], [address] eGFR Normal >60 [facility] Comment on above: Result Comment: Canc elled via OM: Order cancelled - Patient discharged Performed By: #### L 499.0043 #### [facility] [address] [place], [address] GAP Normal 5-15 [facility] Comment on above: Result Comment: Canc elled via OM: Order cancelled - Patient discharged Performed By: #### L 499.0043 #### [facility] [address] [place], [address] GLU Normal 70-99 [facility] Comment on above: Result Comment: Canc elled via OM: Order cancelled - Patient discharged Performed By: #### L 499.0043 #### [facility] [address] [place], [address] Potassium Normal 3.3-5.1 [facility] Comment on above: Result Comment: Canc elled via OM: Order cancelled - Patient discharged Performed By: #### L 499.0043 #### [facility] [address] [place], [address] Basic Metabolic Profile (BMP) Normal 133-145 [facility] Comment on above: Result Comment: Canc elled via OM: Order cancelled - Patient discharged Performed By: #### L 499.0043 #### [facility] [address] [place], [address] CBC W/Diff, Automatedon 11-0 5-2024 Absolute Neut Normal 2.0-7.7 [facility] Comment on above: Result Comment: Canc elled via OM: Order cancelled - Patient discharged Performed By: #### L 499.0043 #### [facility] [address] [place], [address] HCT Normal 40-54 [facility] Comment on above: Result Comment: Canc elled via OM: Order cancelled - Patient discharged Performed By: #### L 499.0043 #### [facility] [address] [place], [address] HGB Normal 13.0-16.5 [facility] Comment on above: Result Comment: Canc elled via OM: Order cancelled - Patient discharged Performed By: #### L 499.0043 #### [facility] [address] [place], [address] MCH Normal 27.0-32.0 [facility] Comment on above: Result Comment: Canc elled via OM: Order cancelled - Patient discharged Performed By: #### L 499.0043 #### [facility] [address] [place], [address] MCHC Normal 32-36 [facility] Comment on above: Result Comment: Canc elled via OM: Order cancelled - Patient discharged Performed By: #### L 499.0043 #### [facility] [address] [place], [address] MCV Normal 80-94 [facility] Comment on above: Result Comment: Canc elled via OM: Order cancelled - Patient discharged Performed By: #### L 499.0043 #### [facility] [address] [place], [address] NEUT% Normal 47-70 [facility] Comment on above: Result Comment: Canc elled via OM: Order cancelled - Patient discharged Performed By: #### L 499.0043 #### [facility] [address] [place], [address] PLT Normal 150-450 [facility] Comment on above: Result Comment: Canc elled via OM: Order cancelled - Patient discharged Performed By: #### L 499.0043 #### [facility] [address] [place], [address] RBC Normal 4.6-6.2 [facility] Comment on above: Result Comment: Canc elled via OM: Order cancelled - Patient discharged Performed By: #### L 499.0043 #### [facility] [address] [place], [address] RDW CV Normal 11.6-14.6 [facility] Comment on above: Result Comment: Canc elled via OM: Order cancelled - Patient discharged Performed By: #### L 499.0043 #### [facility] [address] [place], [address] RDW SD Normal 35.1-43.9 [facility] Comment on above: Result Comment: Canc elled via OM: Order cancelled - Patient discharged Performed By: #### L 499.0043 #### [facility] [address] [place], [address] WBC Normal 4.4-11.0 [facility] Comment on above: Result Comment: Canc elled via OM: Order cancelled - Patient discharged Performed By: #### L 499.0043 #### [facility] [address] [place], [address] Culture, Blood (WB)on 2024 CUB Blood cultures x2, from two different sites No growth in 5 days. Normal [facility] Comment on above: Performed By: #### M 200.1000 ####[facility] [address] [place], [address] Basic Metabolic Profile (BMP )on 01-07-2025 BUN/CRE 18.3 RATIO Normal 10-20 [facility] Comment on above: Performed By: #### L 100.0100, L500.2500 ####[facility] [address] [place], [address] Calcium [Mass/Vol] 8.6 mg/dL Normal 7.6-11.0 [facility] Comment on above: Performed By: #### L 100.0100, L500.2500 ####[facility] [address] [place], [address] Chloride [Moles/Vol] 109 mmol/L High 98-108 [facility] Comment on above: Performed By: #### L 100.0100, L500.2500 ####[facility] [address] [place], [address] CO2 [Moles/Vol] 21.5 mmol/L Normal 21.0-32.0 [facility] Comment on above: Performed By: #### L 100.0100, L500.2500 ####[facility] [address] [place], [address] Creatinine [Mass/Vol] 1.04 mg/dL Normal 0.70-1.20 [facility] Comment on above: Performed By: #### L 100.0100, L500.2500 ####[facility] [address] [place], [address] ECRCL 70.24 ml/min Normal 50-250 [facility] Comment on above: Performed By: #### L 100.0100, L500.2500 ####[facility] [address] [place], [address] GAP 11 Normal 5-15 [facility] Comment on above: Performed By: #### L 100.0100, L500.2500 ####[facility] [address] [place], [address] GFR/1.73 sq M.predicted among non-blacks MDRD (S/P/Bld) [Vol rate/Area] 74 mL/min/{1.73_m2} Normal >60 [facility] Comment on above: Result Comment: mL/m in/1.73m2 CKD-EPI Creatinine Equation (2020) Performed By: #### L 100.0100, L500.2500 ####[facility] [address] [place], [address] Glucose [Mass/Vol] 111 mg/dL High 70-99 [facility] Comment on above: Performed By: #### L 100.0100, L500.2500 ####[facility] [address] [place], [address] Potassium [Moles/Vol] 3.5 mmol/L Normal 3.3-5.1 [facility] Comment on above: Performed By: #### L 100.0100, L500.2500 ####[facility] [address] [place], [address] Sodium [Moles/Vol] 142 mmol/L Normal 133-145 [facility] Comment on above: Performed By: #### L 100.0100, L500.2500 ####[facility] [address] [place], [address] Urea nitrogen [Mass/Vol] 19 mg/dL Normal 4-19 [facility] Comment on above: Performed By: #### L 100.0100, L500.2500 ####[facility] [address] [place], [address] CBC W/Diff, Automatedon 11-0 Absolute Lymph 2.87 X10 3/uL Normal 0.83-4.51 [facility] Comment on above: Performed By: #### L 100.0100, L500.2500 ####[facility] [address] [place], [address] Absolute Neut 10.1 X10 3/uL High 2.0-7.7 [facility] Comment on above: Performed By: #### L 100.0100, L500.2500 ####[facility] [address] [place], [address] Basophils/100 WBC (Bld) 0.4 % Normal 0-1 [facility] Comment on above: Performed By: #### L 100.0100, L500.2500 ####[facility] [address] [place], [address] Eosinophils/100 WBC (Bld) 1.6 % Normal 0-5 [facility] Comment on above: Performed By: #### L 100.0100, L500.2500 ####[facility] [address] [place], [address] Erythrocyte distribution width (RBC) [Ratio] 13.8 % Normal 11.6-14.6 [facility] Comment on above: Performed By: #### L 100.0100, L500.2500 ####[facility] [address] [place], [address] Hematocrit (Bld) [Volume fraction] 31.7 % Low 40-54 [facility] Comment on above: Performed By: #### L 100.0100, L500.2500 ####[facility] [address] [place], [address] Hemoglobin (Bld) [Mass/Vol] 10.6 g/dL Low 13.0-16.5 [facility] Comment on above: Performed By: #### L 100.0100, L500.2500 ####[facility] [address] [place], [address] IG% 1.400 High 0.0-0.9 [facility] Comment on above: Result Comment: IG% - Immature Granulocytes (promyelocytes, myelocytes and metamyelocytes) > 1% indicates that a LEFT SHIFT is Present. Performed By: #### L 100.0100, L500.2500 ####[facility] [address] [place], [address] Lymphocytes/100 WBC (Bld) 19.8 % Normal 19-41 [facility] Comment on above: Performed By: #### L 100.0100, L500.2500 ####[facility] [address] [place], [address] MCH (RBC) [Entitic mass] 29.7 pg Normal 27.0-32.0 [facility] Comment on above: Performed By: #### L 100.0100, L500.2500 ####[facility] [address] [place], [address] MCHC (RBC) [Mass/Vol] 33.4 g/dL Normal 32-36 [facility] Comment on above: Performed By: #### L 100.0100, L500.2500 ####[facility] [address] [place], [address] MCV (RBC) [Entitic vol] 88.8 fL Normal 80-94 [facility] Comment on above: Performed By: #### L 100.0100, L500.2500 ####[facility] [address] [place], [address] Monocytes/100 WBC (Bld) 7.5 % Normal 0-10 [facility] Comment on above: Performed By: #### L 100.0100, L500.2500 ####[facility] [address] [place], [address] Neutrophils/100 WBC (Bld) 69.3 % Normal 47-70 [facility] Comment on above: Performed By: #### L 100.0100, L500.2500 ####[facility] [address] [place], [address] Nucleated RBC (Bld) [#/Vol] 0 10*3/uL Normal 0-5 [facility] Comment on above: Performed By: #### L 100.0100, L500.2500 ####[facility] [address] [place], [address] Platelet mean volume (Bld) [Entitic vol] 10.2 fL Normal 6.2-12.0 [facility] Comment on above: Performed By: #### L 100.0100, L500.2500 ####[facility] [address] [place], [address] Platelets (Bld) [#/Vol] 232 10*3/uL Normal 150-450 [facility] Comment on above: Performed By: #### L 100.0100, L500.2500 ####[facility] [address] [place], [address] RBC (Bld) [#/Vol] 3.57 10*6/uL Low 4.6-6.2 [facility] Comment on above: Performed By: #### L 100.0100, L500.2500 ####[facility] [address] [place], [address] RDW SD 44.4 fl High 35.1-43.9 [facility] Comment on above: Performed By: #### L 100.0100, L500.2500 ####[facility] [address] [place], [address] WBC (Bld) [#/Vol] 14.5 10*3/uL High 4.4-11.0 [facility] Comment on above: Performed By: #### L 100.0100, L500.2500 ####[facility] [address] [place], [address] Urine Cultureon 01-07-2025 URC Culture exhibits no growth. Normal [facility] Comment on above: Performed By: #### L 400.0001, M100.2200 ####[facility] [address] [place], [address] Basic Metabolic Profile (BMP )on 01-06-2025 BUN/CRE 19.0 RATIO Normal 10-20 [facility] Comment on above: Performed By: #### L 100.0100, L500.2500 #### [facility] [address] [place], [address] Calcium [Mass/Vol] 8.3 mg/dL Normal 7.6-11.0 [facility] Comment on above: Performed By: #### L 100.0100, L500.2500 #### [facility] [address] [place], [address] Chloride [Moles/Vol] 109 mmol/L High 98-108 [facility] Comment on above: Performed By: #### L 100.0100, L500.2500 #### [facility] [address] [place], [address] CO2 [Moles/Vol] 23.7 mmol/L Normal 21.0-32.0 [facility] Comment on above: Performed By: #### L 100.0100, L500.2500 #### [facility] [address] [place], [address] Creatinine [Mass/Vol] 0.99 mg/dL Normal 0.70-1.20 [facility] Comment on above: Performed By: #### L 100.0100, L500.2500 #### [facility] [address] [place], [address] ECRCL 73.78 ml/min Normal 50-250 [facility] Comment on above: Performed By: #### L 100.0100, L500.2500 #### [facility] [address] [place], [address] GAP 8 Normal 5-15 [facility] Comment on above: Performed By: #### L 100.0100, L500.2500 #### [facility] [address] [place], [address] GFR/1.73 sq M.predicted among non-blacks MDRD (S/P/Bld) [Vol rate/Area] 79 mL/min/{1.73_m2} Normal >60 [facility] Comment on above: Result Comment: mL/m in/1.73m2 CKD-EPI Creatinine Equation (2020) Performed By: #### L 100.0100, L500.2500 #### [facility] [address] [place], [address] Glucose [Mass/Vol] 102 mg/dL High 70-99 [facility] Comment on above: Performed By: #### L 100.0100, L500.2500 #### [facility] [address] [place], [address] Potassium [Moles/Vol] 3.7 mmol/L Normal 3.3-5.1 [facility] Comment on above: Performed By: #### L 100.0100, L500.2500 #### [facility] [address] [place], [address] Sodium [Moles/Vol] 141 mmol/L Normal 133-145 [facility] Comment on above: Performed By: #### L 100.0100, L500.2500 #### [facility] [address] [place], [address] Urea nitrogen [Mass/Vol] 19 mg/dL Normal 4-19 [facility] Comment on above: Performed By: #### L 100.0100, L500.2500 #### [facility] [address] [place], [address] CBC W/Diff, Automatedon 11-0 3-2024 Absolute Lymph 2.85 X10 3/uL Normal 0.83-4.51 [facility] Comment on above: Performed By: #### L 100.0100, L500.2500 #### [facility] [address] [place], [address] Absolute Neut 17.5 X10 3/uL High 2.0-7.7 [facility] Comment on above: Performed By: #### L 100.0100, L500.2500 #### [facility] [address] [place], [address] Basophils/100 WBC (Bld) 0.4 % Normal 0-1 [facility] Comment on above: Performed By: #### L 100.0100, L500.2500 #### [facility] [address] [place], [address] Eosinophils/100 WBC (Bld) 1.1 % Normal 0-5 [facility] Comment on above: Performed By: #### L 100.0100, L500.2500 #### [facility] [address] [place], [address] Erythrocyte distribution width (RBC) [Ratio] 13.8 % Normal 11.6-14.6 [facility] Comment on above: Performed By: #### L 100.0100, L500.2500 #### [facility] [address] [place], [address] Hematocrit (Bld) [Volume fraction] 34.2 % Low 40-54 [facility] Comment on above: Performed By: #### L 100.0100, L500.2500 #### [facility] [address] [place], [address] Hemoglobin (Bld) [Mass/Vol] 11.2 g/dL Low 13.0-16.5 [facility] Comment on above: Performed By: #### L 100.0100, L500.2500 #### [facility] [address] [place], [address] IG% 1.300 High 0.0-0.9 [facility] Comment on above: Result Comment: IG% - Immature Granulocytes (promyelocytes, myelocytes and metamyelocytes) > 1% indicates that a LEFT SHIFT is Present. Performed By: #### L 100.0100, L500.2500 #### [facility] [address] [place], [address] Lymphocytes/100 WBC (Bld) 12.8 % Low 19-41 [facility] Comment on above: Performed By: #### L 100.0100, L500.2500 #### [facility] [address] [place], [address] MCH (RBC) [Entitic mass] 29.3 pg Normal 27.0-32.0 [facility] Comment on above: Performed By: #### L 100.0100, L500.2500 #### [facility] [address] [place], [address] MCHC (RBC) [Mass/Vol] 32.7 g/dL Normal 32-36 [facility] Comment on above: Performed By: #### L 100.0100, L500.2500 #### [facility] [address] [place], [address] MCV (RBC) [Entitic vol] 89.5 fL Normal 80-94 [facility] Comment on above: Performed By: #### L 100.0100, L500.2500 #### [facility] [address] [place], [address] Monocytes/100 WBC (Bld) 5.8 % Normal 0-10 [facility] Comment on above: Performed By: #### L 100.0100, L500.2500 #### [facility] [address] [place], [address] Neutrophils/100 WBC (Bld) 78.6 % High 47-70 [facility] Comment on above: Performed By: #### L 100.0100, L500.2500 #### [facility] [address] [place], [address] Nucleated RBC (Bld) [#/Vol] 0 10*3/uL Normal 0-5 [facility] Comment on above: Performed By: #### L 100.0100, L500.2500 #### [facility] [address] [place], [address] Platelet mean volume (Bld) [Entitic vol] 10.6 fL Normal 6.2-12.0 [facility] Comment on above: Performed By: #### L 100.0100, L500.2500 #### [facility] [address] [place], [address] Platelets (Bld) [#/Vol] 200 10*3/uL Normal 150-450 [facility] Comment on above: Performed By: #### L 100.0100, L500.2500 #### [facility] [address] [place], [address] RBC (Bld) [#/Vol] 3.82 10*6/uL Low 4.6-6.2 [facility] Comment on above: Performed By: #### L 100.0100, L500.2500 #### [facility] [address] [place], [address] RDW SD 44.8 fl High 35.1-43.9 [facility] Comment on above: Performed By: #### L 100.0100, L500.2500 #### [facility] [address] [place], [address] WBC (Bld) [#/Vol] 22.2 10*3/uL High 4.4-11.0 [facility] Comment on above: Performed By: #### L 100.0100, L500.2500 #### [facility] [address] [place], [address] Chest 1 View (Portable)on Chest 1 View (Portable) [facility] [address] [place], [place] [address] Chest 1 View (Portable) MR#: [id number] Acct: [id number] Name: ALLAN LARA Rep #: [id number] : [id number] M 74 From: Stevenson Su MD PCP: Dr. Simone Messer MD Status: ADM IN Study: Chest 1 View (Portable) Date of Exam: 01/06/25 Exam# [id number] Ordering Dr: Kendra Herrera MD PROCEDURE: CHEST 1 VIEW (PORTABLE) 01/06/2025 REASON FOR EXAM: SOB TECHNIQUE: Frontal view of the chest. COMPARISON: January 03, 2025 FINDINGS: Hardware: None Heart: Heart is mildly enlarged. Lungs: Ground-glass and interstitial markings are shown in the right upper lobe and right lower lobe similar to recent prior CT. Subsegmental atelectasis or scarring at the left lung base. Bones: Degenerative changes are identified within the thoracic spine. RAD/Chest 1 View (Portable) IMPRESSION: Interstitial lung changes right upper lobe right lower lobe. Atelectasis or interstitial change at the left lung base. No change. No new organizing pneumonia. Reading Location: [id number] CC: Dr. Kendra Herrera MD; Dr. Simone Messer MD Electrician'S Assistant: Signed Normal [facility] Hemoglobin A1con 01-06-2025 HbA1c (Bld) [Mass fraction] 6.3 % High <=5.6 [facility] Comment on above: Result Comment: Norm al < 5.7 % Prediabetic 5.7 - 6.4 % Diabetic >or= 6.5 % Please note range changes. Performed By: #### L 100.0100, L500.2500 #### [facility] [address] [place], [address] Urinalysis, Completeon 01-06 RBC 0 SEEN Normal 0-5 [facility] Comment on above: Order Comment: JOANNA TER SPECIMEN Performed By: #### L 400.0001, M100.2200 ####[facility] [address] [place], [address] BACTERIA 0 SEEN Normal None Seen [facility] Comment on above: Order Comment: JOANNA TER SPECIMEN Performed By: #### L 400.0001, M100.2200 ####[facility] [address] [place], [address] EPI,SQUAMOUS 0 SEEN Normal 0-5 [facility] Comment on above: Order Comment: JOANNA TER SPECIMEN Performed By: #### L 400.0001, M1.0 ####[facility] [address] [place], [address] Mucus Ql (Urine sed) 0 SEEN Normal [facility] Comment on above: Order Comment: JOANNA TER SPECIMEN Performed By: #### L 400.0001, M100.2200 ####[facility] [address] [place], [address] WBC 0 SEEN Normal 0-5 [facility] Comment on above: Order Comment: JOANNA TER SPECIMEN Performed By: #### L 400.0001, M100.2200 ####[facility] [address] [place], [address] Basic Metabolic Profile (BMP )on 01-05-2025 BUN/CRE 22.6 RATIO High 10-20 [facility] Comment on above: Performed By: #### L 499.0043 #### [facility] [address] [place], [address] Calcium [Mass/Vol] 8.5 mg/dL Normal 7.6-11.0 [facility] Comment on above: Performed By: #### L 499.0043 #### [facility] [address] [place], [address] Chloride [Moles/Vol] 108 mmol/L Normal 98-108 [facility] Comment on above: Performed By: #### L 499.0043 #### [facility] [address] [place], [address] CO2 [Moles/Vol] 21.7 mmol/L Normal 21.0-32.0 [facility] Comment on above: Performed By: #### L 499.0043 #### [facility] [address] [place], [address] Creatinine [Mass/Vol] 0.99 mg/dL Normal 0.70-1.20 [facility] Comment on above: Performed By: #### L 499.0043 #### [facility] [address] [place], [address] ECRCL 73.78 ml/min Normal 50-250 [facility] Comment on above: Performed By: #### L 499.0043 #### [facility] [address] [place], [address] GAP 10 Normal 5-15 [facility] Comment on above: Performed By: #### L 499.0043 #### [facility] [address] [place], [address] GFR/1.73 sq M.predicted among non-blacks MDRD (S/P/Bld) [Vol rate/Area] 79 mL/min/{1.73_m2} Normal >60 [facility] Comment on above: Result Comment: mL/m in/1.73m2 CKD-EPI Creatinine Equation (2020) Performed By: #### L 499.0043 #### [facility] [address] [place], [address] Glucose [Mass/Vol] 147 mg/dL High 70-99 [facility] Comment on above: Performed By: #### L 499.0043 #### [facility] [address] [place], [address] Potassium [Moles/Vol] 4.0 mmol/L Normal 3.3-5.1 [facility] Comment on above: Performed By: #### L 499.0043 #### [facility] [address] [place], [address] Sodium [Moles/Vol] 140 mmol/L Normal 133-145 [facility] Comment on above: Performed By: #### L 499.0043 #### [facility] [address] [place], [address] Urea nitrogen [Mass/Vol] 22 mg/dL High 4-19 [facility] Comment on above: Performed By: #### L 499.0043 #### [facility] [address] [place], [address] CBC W/Diff, Automatedon 11-0 2-2025 Absolute Lymph 1.49 X10 3/uL Normal 0.83-4.51 [facility] Comment on above: Performed By: #### L 499.0043 #### [facility] [address] [place], [address] Absolute Neut 25.6 X10 3/uL High 2.0-7.7 [facility] Comment on above: Performed By: #### L 499.0043 #### [facility] [address] [place], [address] Basophils/100 WBC (Bld) 0.3 % Normal 0-1 [facility] Comment on above: Performed By: #### L 499.0043 #### [facility] [address] [place], [address] Eosinophils/100 WBC (Bld) 0.0 % Normal 0-5 [facility] Comment on above: Performed By: #### L 499.0043 #### [facility] [address] [place], [address] Erythrocyte distribution width (RBC) [Ratio] 13.7 % Normal 11.6-14.6 [facility] Comment on above: Performed By: #### L 499.0043 #### [facility] [address], [address] Hematocrit (Bld) [Volume fraction] 36.3 % Low 40-54 [facility] Comment on above: Performed By: #### L 499.0043 #### [facility] [address] [place], [address] Hemoglobin (Bld) [Mass/Vol] 11.7 g/dL Low 13.0-16.5 [facility] Comment on above: Performed By: #### L 499.0043 #### [facility] [address], [address] IG% 1.000 High 0.0-0.9 [facility] Comment on above: Result Comment: IG% - Immature Granulocytes (promyelocytes, myelocytes and metamyelocytes) > 1% indicates that a LEFT SHIFT is Present. Performed By: #### L 499.0043 #### [facility] [address] [place], [address] Lymphocytes/100 WBC (Bld) 5.1 % Low 19-41 [facility] Comment on above: Performed By: #### L 499.0043 #### [facility] [address] [place], [address] MCH (RBC) [Entitic mass] 29.3 pg Normal 27.0-32.0 [facility] Comment on above: Performed By: #### L 499.0043 #### [facility] [address] [place], [address] MCHC (RBC) [Mass/Vol] 32.2 g/dL Normal 32-36 [facility] Comment on above: Performed By: #### L 499.0043 #### [facility] [address] [place], [address] MCV (RBC) [Entitic vol] 90.8 fL Normal 80-94 [facility] Comment on above: Performed By: #### L 499.0043 #### [facility] [address] [place], [address] Monocytes/100 WBC (Bld) 5.3 % Normal 0-10 [facility] Comment on above: Performed By: #### L 499.0043 #### [facility] [address] [place], [address] Neutrophils/100 WBC (Bld) 88.3 % High 47-70 [facility] Comment on above: Performed By: #### L 499.0043 #### [facility] [address] [place], [address] Nucleated RBC (Bld) [#/Vol] 0 10*3/uL Normal 0-5 [facility] Comment on above: Performed By: #### L 499.0043 #### [facility] [address] [place], [address] Platelet mean volume (Bld) [Entitic vol] 10.6 fL Normal 6.2-12.0 [facility] Comment on above: Performed By: #### L 499.0043 #### [facility] [address] [place], [address] Platelets (Bld) [#/Vol] 197 10*3/uL Normal 150-450 [facility] Comment on above: Performed By: #### L 499.0043 #### [facility] [address] [place], [address] RBC (Bld) [#/Vol] 4.00 10*6/uL Low 4.6-6.2 [facility] Comment on above: Performed By: #### L 499.0043 #### [facility] [address] [place], [address] RDW SD 45.2 fl High 35.1-43.9 [facility] Comment on above: Performed By: #### L 499.0043 #### [facility] [address] [place], [address] WBC (Bld) [#/Vol] 29.0 10*3/uL High 4.4-11.0 [facility] Comment on above: Performed By: #### L 499.0043 #### [facility] [address] [place], [address] L509.7001on 01-05-2025 Procalcitonin 0.09 ng/mL Normal <=0.10 [facility] Comment on above: Result Comment: Inte rpretation: <0.10-0.25 ng/mL: Antibiotic therapy discouraged. Bacterial infection unlikely. 0.25-0.50 ng/mL: Antibiotic therapy encouraged. Bacterial infection possible. >0.50 ng/mL: Antibiotic therapy strongly encouraged. Suggestive of presence of bacterial infection. PCT should always be interpreted in the clinical context of the patient. Therefore, clinicians should use the PCT results in conjunction with other laboratory findings and clinical signs of the patient. Performed By: #### L 100.0100, L500.2500 #### [facility] [address] [place], [address] Basic Metabolic Profile (BMP )on 01-04-2025 BUN/CRE 28.8 RATIO High 10-20 [facility] Comment on above: Performed By: #### L 100.0100, L500.2500 #### [facility] [address] [place], [address] Calcium [Mass/Vol] 8.4 mg/dL Normal 7.6-11.0 [facility] Comment on above: Performed By: #### L 100.0100, L500.2500 #### [facility] [address] [place], [address] Chloride [Moles/Vol] 106 mmol/L Normal 98-108 [facility] Comment on above: Performed By: #### L 100.0100, L500.2500 #### [facility] [address] [place], [address] CO2 [Moles/Vol] 23.6 mmol/L Normal 21.0-32.0 [facility] Comment on above: Performed By: #### L 100.0100, L500.2500 #### [facility] [address] [place], [address] Creatinine [Mass/Vol] 1.19 mg/dL Normal 0.70-1.20 [facility] Comment on above: Performed By: #### L 100.0100, L500.2500 #### [facility] [address] [place], [address] ECRCL 61.38 ml/min Normal 50-250 [facility] Comment on above: Performed By: #### L 100.0100, L500.2500 #### [facility] [address] [place], [address] GAP 10 Normal 5-15 [facility] Comment on above: Performed By: #### L 100.0100, L500.2500 #### [facility] [address] [place], [address] GFR/1.73 sq M.predicted among non-blacks MDRD (S/P/Bld) [Vol rate/Area] 63 mL/min/{1.73_m2} Normal >60 [facility] Comment on above: Result Comment: mL/m in/1.73m2 CKD-EPI Creatinine Equation (2020) Performed By: #### L 100.0100, L500.2500 #### [facility] [address] [place], [address] Glucose [Mass/Vol] 167 mg/dL High 70-99 [facility] Comment on above: Performed By: #### L 100.0100, L500.2500 #### [facility] [address] [place], [address] Potassium [Moles/Vol] 4.2 mmol/L Normal 3.3-5.1 [facility] Comment on above: Performed By: #### L 100.0100, L500.2500 #### [facility] [address] [place], [address] Sodium [Moles/Vol] 139 mmol/L Normal 133-145 [facility] Comment on above: Performed By: #### L 100.0100, L500.2500 #### [facility] [address] [place], [address] Urea nitrogen [Mass/Vol] 34 mg/dL High 4-19 [facility] Comment on above: Performed By: #### L 100.0100, L500.2500 #### [facility] [address] [place], [address] CBC W/Diff, Automatedon 11 SMEAR COMMENT SCANNED Normal [facility] Comment on above: Result Comment: MONO CYTOSIS PRESENT NEUTROPHILIA PRESENT Performed By: #### L 100.0100, L500.2500 #### [facility] [address] [place], [address] CBC-Complete Blood Cnt No Di ffon 01-04-2025 Erythrocyte distribution width (RBC) [Ratio] 13.7 % Normal 11.6-14.6 [facility] Comment on above: Order Comment: Comme nts: hgb drop Performed By: #### L 100.0100, L500.2500 #### [facility] [address] [place], [address] Hematocrit (Bld) [Volume fraction] 36.3 % Low 40-54 [facility] Comment on above: Order Comment: Comme nts: hgb drop Performed By: #### L 100.0100, L500.2500 #### [facility] [address] [place], [address] Hemoglobin (Bld) [Mass/Vol] 11.9 g/dL Low 13.0-16.5 [facility] Comment on above: Order Comment: Comme nts: hgb drop Performed By: #### L 100.0100, L500.2500 #### [facility] [address] [place], [address] MCH (RBC) [Entitic mass] 29.2 pg Normal 27.0-32.0 [facility] Comment on above: Order Comment: Comme nts: hgb drop Performed By: #### L 100.0100, L500.2500 #### [facility] [address] [place], [address] MCHC (RBC) [Mass/Vol] 32.8 g/dL Normal 32-36 [facility] Comment on above: Order Comment: Comme nts: hgb drop Performed By: #### L 100.0100, L500.2500 #### [facility] [address] [place], [address] MCV (RBC) [Entitic vol] 89.0 fL Normal 80-94 [facility] Comment on above: Order Comment: Comme nts: hgb drop Performed By: #### L 100.0100, L500.2500 #### [facility] [address] [place], [address] Platelet mean volume (Bld) [Entitic vol] 10.2 fL Normal 6.2-12.0 [facility] Comment on above: Order Comment: Comme nts: hgb drop Performed By: #### L 100.0100, L500.2500 #### [facility] [address] [place], [address] Platelets (Bld) [#/Vol] 202 10*3/uL Normal 150-450 [facility] Comment on above: Order Comment: Comme nts: hgb drop Performed By: #### L 100.0100, L500.2500 #### [facility] [address], [address] RBC (Bld) [#/Vol] 4.08 10*6/uL Low 4.6-6.2 [facility] Comment on above: Order Comment: Comme nts: hgb drop Performed By: #### L 100.0100, L500.2500 #### [facility] [address], [address] RDW SD 44.6 fl High 35.1-43.9 [facility] Comment on above: Order Comment: Comme nts: hgb drop Performed By: #### L 100.0100, L500.2500 #### [facility] [address], [address] WBC (Bld) [#/Vol] 24.8 10*3/uL High 4.4-11.0 [facility] Comment on above: Order Comment: Comme nts: hgb drop Performed By: #### L 100.0100, L500.2500 #### [facility] [address], [address] Chest 1 View (Portable)on Chest 1 View (Portable) [facility] Imaging Services [address] [place] [address] Chest 1 View (Portable) MR#: [id number] Acct: [id number] Name: JANEALLAN ALEKSANDAR Rep #: [id number] : 1950 M 74 From: Vignesh laboy MD PCP: Dr. Simone Messer MD Status: ADM IN Study: Chest 1 View (Portable) Date of Exam: 01/04/25 Exam# [id number] Ordering Dr: Morris Paulino DO PROCEDURE: CHEST 1 VIEW (PORTABLE) 01/04/2025 REASON FOR EXAM: PNEUMONIA TECHNIQUE: Frontal view of the chest. COMPARISON: 01/03/2025 FINDINGS: Faint left basal infiltrates are noted, new since the prior study. Blunting of the left costophrenic recess by possible minimal pleural effusion/reaction. Stable bilateral apical reticulations/atelec tasis. Stable cardiac size. No pneumothorax. Stable osseous structures. RAD/Chest 1 View (Portable) IMPRESSION: Faint left basal infiltrates, new since the prior study. Follow-up is recommended. Blunting of the left costophrenic recess by possible minimal pleural effusion/reaction. Reading Location: [place] [address] CC: Dr. Morris Paulino DO; Dr. Simone Messer MD Electrician'S Assistant: Signed Normal [facility] 12 Lead EKGon 01-03-2025 12 Lead EKG [facility] [address] [place] [address] 12 Lead EKG 01/03/25 0620 MR#: [id number] Acct: [id number] Name: ALLAN LARA Rep #: [id number] : 1950 74 From: Allan Deluna MD Attending Dr: Dr. Kendra Herrera MD Status: ADM IN Ordering Dr: Daren Hermosillo DO Date: 01/03/25 [place] [facility] [place]: M C Admitted: 01/03/25 Test Reason : CP Blood Pressure : */* mmHG Vent. Rate : 107 BPM Atrial Rate : 107 BPM P-R Int : 188 ms QRS Dur : 90 ms QT Int : 360 ms P-R-T Axes : 58 -68 53 degrees QTcB Int : 480 ms Sinus tachycardia Pulmonary disease pattern Left anterior fascicular block QTcB >= 480 msec Abnormal ECG Confirmed by Allan Deluna ([id number]), assistant film editor ALEX QUESADA ([id number]) on 01/06/2025 1:06:03 PM Referred By: MATT Confirmed By: Allan Deluna 01/06/25 1306 Date Allan Deluna MD CC: Dr. Daren Hermosillo DO; Dr. Kendra Herrera MD; Dr. Simone Messer MD Signed Normal [facility] Basic Metabolic Profile (BMP )on 01-03-2025 BUN/CRE 15.5 RATIO Normal 10-20 [facility] Comment on above: Performed By: #### L 300.4310, L501.4021, L500.3400, L100.0100, L501.2450, L300.3900, L503.6005, BTS, L500.2500 ####[facility] [address] [place], [address] Calcium [Mass/Vol] 9.5 mg/dL Normal 7.6-11.0 [facility] Comment on above: Performed By: #### L 300.4310, L501.4021, L500.3400, L100.0100, L501.2450, L300.3900, L503.6005, BTS, L500.2500 ####[facility] [address] [place], [address] Chloride [Moles/Vol] 101 mmol/L Normal 98-108 [facility] Comment on above: Performed By: #### L 300.4310, L501.4021, L500.3400, L100.0100, L501.2450, L300.3900, L503.6005, BTS, L500.2500 ####[facility] [address] [place], [address] CO2 [Moles/Vol] 27.4 mmol/L Normal 21.0-32.0 [facility] Comment on above: Performed By: #### L 300.4310, L501.4021, L500.3400, L100.0100, L501.2450, L300.3900, L503.6005, BTS, L500.2500 ####[facility] [address] [place], [address] Creatinine [Mass/Vol] 1.12 mg/dL Normal 0.70-1.20 [facility] Comment on above: Performed By: #### L 300.4310, L501.4021, L500.3400, L100.0100, L501.2450, L300.3900, L503.6005, BTS, L500.2500 ####[facility] [address] [place], [address] ECRCL 56.11 ml/min Normal 50-250 [facility] Comment on above: Performed By: #### L 300.4310, L501.4021, L500.3400, L100.0100, L501.2450, L300.3900, L503.6005, BTS, L500.2500 ####[facility] [address] [place], [address] GAP 12 Normal 5-15 [facility] Comment on above: Performed By: #### L 300.4310, L501.4021, L500.3400, L100.0100, L501.2450, L300.3900, L503.6005, BTS, L500.2500 ####[facility] [address] [place], [address] GFR/1.73 sq M.predicted among non-blacks MDRD (S/P/Bld) [Vol rate/Area] 68 mL/min/{1.73_m2} Normal >60 [facility] Comment on above: Result Comment: mL/m in/1.73m2 CKD-EPI Creatinine Equation (2020) Performed By: #### L 300.4310, L501.4021, L500.3400, L100.0100, L501.2450, L300.3900, L503.6005, BTS, L500.2500 ####[facility] [address] [place], [address] Glucose [Mass/Vol] 212 mg/dL High 70-99 [facility] Comment on above: Performed By: #### L 300.4310, L501.4021, L500.3400, L100.0100, L501.2450, L300.3900, L503.6005, BTS, L500.2500 ####[facility] [address] [place], [address] Potassium [Moles/Vol] 4.0 mmol/L Normal 3.3-5.1 [facility] Comment on above: Performed By: #### L 300.4310, L501.4021, L500.3400, L100.0100, L501.2450, L300.3900, L503.6005, BTS, L500.2500 ####[facility] [address] [place], [address] Sodium [Moles/Vol] 141 mmol/L Normal 133-145 [facility] Comment on above: Performed By: #### L 300.4310, L501.4021, L500.3400, L100.0100, L501.2450, L300.3900, L503.6005, BTS, L500.2500 ####[facility] [address] [place], [address] Urea nitrogen [Mass/Vol] 17 mg/dL Normal 4-19 [facility] Comment on above: Performed By: #### L 300.4310, L501.4021, L500.3400, L100.0100, L501.2450, L300.3900, L503.6005, BTS, L500.2500 ####[facility] [address] [place], [address] CBC W/Diff, Automatedon 10-3 -2024 Absolute Lymph 1.07 X10 3/uL Normal 0.83-4.51 [facility] Comment on above: Performed By: #### L 300.4310, L501.4021, L500.3400, L100.0100, L501.2450, L300.3900, L503.6005, BTS, L500.2500 #### [facility] [address] [place], [address] Absolute Neut 25.5 X10 3/uL High 2.0-7.7 [facility] Comment on above: Performed By: #### L 300.4310, L501.4021, L500.3400, L100.0100, L501.2450, L300.3900, L503.6005, BTS, L500.2500 #### [facility] [address] [place], [address] Basophils/100 WBC (Bld) 0.3 % Normal 0-1 [facility] Comment on above: Performed By: #### L 300.4310, L501.4021, L500.3400, L100.0100, L501.2450, L300.3900, L503.6005, BTS, L500.2500 #### [facility] [address] [place], [address] Eosinophils/100 WBC (Bld) 0.1 % Normal 0-5 [facility] Comment on above: Performed By: #### L 300.4310, L501.4021, L500.3400, L100.0100, L501.2450, L300.3900, L503.6005, BTS, L500.2500 #### [facility] [address] [place], [address] Erythrocyte distribution width (RBC) [Ratio] 13.1 % Normal 11.6-14.6 [facility] Comment on above: Performed By: #### L 300.4310, L501.4021, L500.3400, L100.0100, L501.2450, L300.3900, L503.6005, BTS, L500.2500 #### [facility] [address] [place], [address] Hematocrit (Bld) [Volume fraction] 43.9 % Normal 40-54 [facility] Comment on above: Performed By: #### L 300.4310, L501.4021, L500.3400, L100.0100, L501.2450, L300.3900, L503.6005, BTS, L500.2500 #### [facility] [address] [facility] [place], [address] Hemoglobin (Bld) [Mass/Vol] 14.7 g/dL Normal 13.0-16.5 [facility] Comment on above: Performed By: #### L 300.4310, L501.4021, L500.3400, L100.0100, L501.2450, L300.3900, L503.6005, BTS, L500.2500 #### [facility] [address] [facility] [place], [address] IG% 1.000 High 0.0-0.9 [facility] Comment on above: Result Comment: IG% - Immature Granulocytes (promyelocytes, myelocytes and metamyelocytes) > 1% indicates that a LEFT SHIFT is Present. Performed By: #### L 300.4310, L501.4021, L500.3400, L100.0100, L501.2450, L300.3900, L503.6005, BTS, L500.2500 #### [facility] [address] [facility] [place], [address] Lymphocytes/100 WBC (Bld) 3.8 % Low 19-41 [facility] Comment on above: Performed By: #### L 300.4310, L501.4021, L500.3400, L100.0100, L501.2450, L300.3900, L503.6005, BTS, L500.2500 #### [facility] [address] [place], [address] MCH (RBC) [Entitic mass] 29.4 pg Normal 27.0-32.0 [facility] Comment on above: Performed By: #### L 300.4310, L501.4021, L500.3400, L100.0100, L501.2450, L300.3900, L503.6005, BTS, L500.2500 #### [facility] [address], [address] MCHC (RBC) [Mass/Vol] 33.5 g/dL Normal 32-36 [facility] Comment on above: Performed By: #### L 300.4310, L501.4021, L500.3400, L100.0100, L501.2450, L300.3900, L503.6005, BTS, L500.2500 #### [facility] [address], [address] MCV (RBC) [Entitic vol] 87.8 fL Normal 80-94 [facility] Comment on above: Performed By: #### L 300.4310, L501.4021, L500.3400, L100.0100, L501.2450, L300.3900, L503.6005, BTS, L500.2500 #### [facility] [address] [place], [address] Monocytes/100 WBC (Bld) 3.5 % Normal 0-10 [facility] Comment on above: Performed By: #### L 300.4310, L501.4021, L500.3400, L100.0100, L501.2450, L300.3900, L503.6005, BTS, L500.2500 #### [facility] [address] [place], [address] Neutrophils/100 WBC (Bld) 91.3 % High 47-70 [facility] Comment on above: Performed By: #### L 300.4310, L501.4021, L500.3400, L100.0100, L501.2450, L300.3900, L503.6005, BTS, L500.2500 #### [facility] [address] [place], [address] Nucleated RBC (Bld) [#/Vol] 0 10*3/uL Normal 0-5 [facility] Comment on above: Performed By: #### L 300.4310, L501.4021, L500.3400, L100.0100, L501.2450, L300.3900, L503.6005, BTS, L500.2500 #### [facility] [address] [place], [address] Platelet mean volume (Bld) [Entitic vol] 10.1 fL Normal 6.2-12.0 [facility] Comment on above: Performed By: #### L 300.4310, L501.4021, L500.3400, L100.0100, L501.2450, L300.3900, L503.6005, BTS, L500.2500 #### [facility] [address] [place], [address] Platelets (Bld) [#/Vol] 252 10*3/uL Normal 150-450 [facility] Comment on above: Performed By: #### L 300.4310, L501.4021, L500.3400, L100.0100, L501.2450, L300.3900, L503.6005, BTS, L500.2500 #### [facility] [address] [place], [address] RBC (Bld) [#/Vol] 5.00 10*6/uL Normal 4.6-6.2 [facility] Comment on above: Performed By: #### L 300.4310, L501.4021, L500.3400, L100.0100, L501.2450, L300.3900, L503.6005, BTS, L500.2500 #### [facility] [address] [place], [address] RDW SD 42.0 fl Normal 35.1-43.9 [facility] Comment on above: Performed By: #### L 300.4310, L501.4021, L500.3400, L100.0100, L501.2450, L300.3900, L503.6005, BTS, L500.2500 #### [facility] [address] [facility] [place], [address] WBC (Bld) [#/Vol] 28.0 10*3/uL High 4.4-11.0 [facility] Comment on above: Performed By: #### L 300.4310, L501.4021, L500.3400, L100.0100, L501.2450, L300.3900, L503.6005, BTS, L500.2500 #### [facility] [address] [place], [address] CTA Chst, Abd, Pel W and/or WOon 01-03-2025 CTA Chst, Abd, Pel W and/or WO [facility] Services [address] [place] [address] CTA Chst, Abd, Pel W and/or WO MR#: [id number] Acct: [id number] Name: ALLAN LARA Rep #: [id number] : 1950 M 74 From: Jay willis MD PCP: Dr. Simone Messer MD Status: [facility] Study: CTA Chst, Abd, Pel W and/or WO Date of Exam: Exam# [id number] Ordering Dr: Arron Linares DO PROCEDURE: CTA CHST, ABD, PEL W AND/OR WO 01/03/2025 REASON FOR EXAM: CHEST PAIN, MID EPI PAIN Decreased oxygenation. TECHNIQUE: Chest, abdomen and pelvis CT with intravenous contrast. Coronal and Sagittal reconstruction series were provided. One or more dose reduction techniques were used (e.g., Automated exposure control, adjustment of the mA and/or kV according to patient size, use of iterative reconstruction technique. PATIENT PREPARATION: Per protocol ORAL CONTRAST TYPE: None. CONTRAST: Isovue 370 VOLUME: 100 mL RADIATION DOSE SUMMARY: CTDlvol: 12.4 mGy DLP: 1117.43 mGycm COMPARISON: Prior chest radiograph done earlier in the day. FINDINGS: CT CHEST: Hardware: EKG electrodes. Lymph nodes: No significant lymph nodes are seen. Heart and Vasculature: The heart is mildly enlarged. No significant coronary artery calcification seen. Calcification of the aortic arch. Lungs and Airways: Reticular nodular pattern in the right lung apex suggestive of possible scarring. Increased markings at the lung bases suggestive of either atelectasis and/or scarring. Tiny right basilar pulmonary fusion. Pleura: Small right pleural effusion. Bones: Degenerative changes of the thoracic spine. CT ABDOMEN/PELVIS: Liver: Normal size. No mass. Gallbladder: Multiple gallstones along the dependent portion the gallbladder lumen. Spleen: Normal size. Pancreas: Normal size without evidence of mass surrounding inflammation or ductal dilation. Adrenals: Mild hyperplasia of both adrenal glands. Kidneys: Multiple bilateral renal cysts. A dominant cyst is seen in the anterior aspect of the right kidney measuring 10.1 cm by 8.9 cm. The largest cyst in the left kidney measures 6.5 cm x 7.1 cm. There is a 6.6 mm non obstructive calculus in the lower pole calyx of the right kidney. Bladder: Unremarkable Bowel: Large amount of fecal material is seen throughout the colon. Appendix: The appendix is not identified. There is no inflammatory process identified in the right lower quadrant to suggest appendicitis. Lymph nodes: Unremarkable. Vasculature: Mild diffuse atherosclerotic calcifications are noted. Peritoneum / Retroperitoneum: Unremarkable Bones: Degenerative changes of the spine. CT/CTA Chst, Abd, Pel W and/or WO IMPRESSION: Multiple gallstones. Bilateral renal cysts more prominent on the right side. 6.6 mm nonobstructive calculus in the lower pole calyx of the right kidney. Large amount of fecal material is seen in the colon. Reading Location: [id number] CC: Dr. Arron Linares DO; Dr. Simone Messer MD Electrician'S Assistant: Signed Normal [facility] Chest 1 View (Portable)on Chest 1 View (Portable) [facility] Imaging Services [address] [place] [address] Chest 1 View (Portable) MR#: [id number] Acct: [id number] Name: ALLAN LARA Rep #: [id number] : 1950 M 74 From: Jose Loya PCP: Dr. Simone Messer MD Status: REG ER Study: Chest 1 View (Portable) Date of Exam: 01/03/25 Exam# [id number] Ordering Dr: Daren Hermosillo DO PROCEDURE: CHEST 1 VIEW (PORTABLE) 01/03/2025 REASON FOR EXAM: CHEST PAIN TECHNIQUE: Frontal view of the chest. COMPARISON: None. RAD/Chest 1 View (Portable) IMPRESSION: Lungs are hypoinflated with bibasilar atelectasis, kdygi-qmvyppt-vkpv-l eft; cannot entirely exclude the presence of pneumonitis. No pleural effusion or pneumothorax is noted. The cardiomediastinal silhouette is remarkable for a somewhat calcified and tortuous aorta; no evidence of cardiomegaly. Prominent degenerative changes are seen of the bilateral glenohumeral and acromioclavicular joints, both vrzb-wckouwd-dtmj-ri ght. No acute osseous change is seen. Reading Location: [facility] CC: Dr. Daren Hermosillo DO; Dr. Simone Messer MD Electrician'S Assistant: Signed Normal [facility] Emergency Department Summary on 01-03-2025 Emergency Department Summary [facility] Medical Records Department [address] [place] [address] Emergency Department Summary 01/03/25 MR#: [id number] Acct: [id number] Name: ALLAN LARA Rep #: [id number] : 1950 74 From: Daren Hermosillo DO PCP: Dr. Simone Messer MD Status:REG ER Location: ED ADDENDUM by Dr. Arron Linares DO on 01/03/25 at 1018 0705 patient was transitioned to vt from Dr. Hermosillo. 1000 I have spoken to the hospitalist, Dr. Paulino. Recommendation was not to give another liter of IV fluids and no additional antibiotics at this time. Patient will be admitted to [facility]. Patient is currently full code. We have discussed patient's white blood cell count of 28, patient did have black tarry emesis. Patient will be admitted for further evaluation and treatment. Dr. Paulino will give IV Protonix ordered upstairs. 1015 patient becoming more agitated and restless, patient will be given a dose of IV Ativan. Patient is did have Klonopin and clonazepam in the morning which she did not receive. Patient's had 2 sets of cardiac enzymes, IV fluids, lab testing, CAT scans, admission, patient currently is 94% on room air Critical care time 33 minutes exclusive from separate billable procedures that were performed. The following was considered in the determination of critical care but not limited to the level of medical decision making, intensive cardiac and/or respiratory monitoring, frequent vital sign monitoring, evaluation of laboratory studies, evaluation of radiographic studies, oxygen monitoring, and constant monitoring and speaking to family at bedside 01/03/25 1018 Cosigner Signature (if applicable): cc: Dr. Simone Messer MD * Signed ADDENDUM by Dr. Arron Linares DO on 01/03/25 at 0747 Patient lactic acid is elevated, BUN and creatinine are normal. Patient will do CT of the chest, abdomen, pelvis. Patient has elevated white blood cell count of 28 for unknown reason. No obvious acute signs of infection at this time. Patient was hypotensive, tachycardic, and elevated white blood cell count of 28. Patient will have blood cultures added on, given IV fluids, and started on Zosyn prophylactically. 01/03/25 0747 Cosigner Signature (if applicable): cc: Dr. Simone Messer MD * Signed HPI History of Present Illness Chief Complaint: Chest Pain Informant: patient, EMS and SNF Narrative Narrative: 74-year-old male presenting to the emergency room with the chief complaint of chest pain and vomiting. Patient has a history of dementia and is noted to have difficulty expressing himself. He often responds with yes and no answers. He states that he developed a pain in the left mid anterior aspect of his chest today. [facility] as well as EMS notes several episodes of emesis with black appearance. Last time of p.o. intake and what it was is unknown. [facility] also reports that he was hypoxic and sometimes wears oxygen as needed. Patient denies any current shortness of breath. He cannot tell me anything about his bowel movements. He denies any current abdominal pain. 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 07/04/22 Unknow n History mcg (5,000 unit) tablet (Vitamin D3) clozapine 200 mg tablet 100 mg PO QHS anxiety 07/04/22 Unk nown History fluoxetine 10 mg capsule (Prozac) 20 mg PO DAILY anxiety 07/04/22 U nknown History ipratropium 0.5 mg-albuterol 3 mg 3 ml inhalation Q4H PRN PRN 07/04 Unknown History (2.5 mg base)/3 mL nebulization Wheezing soln omeprazole 20 mg capsule,delayed 20 mg PO DAILY gerd 07/04/22 Unkno wn History release lorazepam 0.5 mg tablet 0.5 mg PO DAILY anxiety 03/19/24 U nknown History lorazepam 1 mg tablet 1 mg PO BID anxiety 03/19/24 Unkno wn History clonazepam 0.5 mg (more content not included)... Normal [facility] H AND P Exam - Hospitaliston 01-03-2025 H&P Exam - Hospitalist [facility] Medical Records Department [address] [place] [address] H P Exam - Hospitalist 01/03/25 1833 MR#: [id number] Acct: [id number] Name: ALLAN ALRA Rep #: [id number] : 1950 74 From: Morris Paulino DO PCP: Dr. Simone Messer MD Status:[place] [facility] [id number]PI - General General Date of Admission: 01/03/25 Date of Service: 01/03/25 Chief Complaint: Chest pain and vomiting HPI Narrative ALLAN LARA, is a 74 M who presents to the emergency room at [facility] after being transported from an intermediate care facility (in a memory unit) due to chest pain and vomiting. Patient has a history of dementia he does not respond to questions. Evidently according to the retirement, the emesis had some black appearance to it. Workup in the emergency room included labs which revealed a 28,000 white blood cell count, hemoglobin was normal, patient's chemistry profile was unremarkable except for glucose of 212. Patient's lactic acid was elevated at 2.7 and the repeat lactic acid was 3.6. Patient's urinalysis was unremarkable CTA of the chest abdomen and pelvis showed multiple gallstones, there was a 6.6 nonobstructive calculus in the lower pole of the right kidney, large amount of fecal material was seen in the colon. Patient will be admitted to [place] [address] for aspiration/aspiratio n pneumonia, he will be placed on IV Zosyn and monitor. Aerosol treatments will be administered. According to the patient's medical records, he is a full code. Patient requires no oxygen at this time and appears comfortable. 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 07/04/22 Unknow n History mcg (5,000 unit) tablet (Vitamin D3) clozapine 200 mg tablet 100 mg PO QHS anxiety 07/04/22 Unk nown History fluoxetine 10 mg capsule (Prozac) 20 mg PO DAILY anxiety 07/04/22 U nknown History ipratropium 0.5 mg-albuterol 3 mg 3 ml inhalation Q4H PRN PRN 07/04 Unknown History (2.5 mg base)/3 mL nebulization Wheezing soln omeprazole 20 mg capsule,delayed 20 mg PO DAILY gerd 07/04/22 Unkno wn History release lorazepam 0.5 mg tablet 0.5 mg PO DAILY anxiety 03/19/24 U nknown History lorazepam 1 mg tablet 1 mg PO BID anxiety 03/19/24 Unkno wn History clonazepam 0.5 mg tablet 0.5 mg PO TID 01/03/25 Unknown His tory cyanocobalamin (vitamin B-12) 1,000 mcg PO DAILY 01/03/25 Unknow n History 1,000 mcg capsule fluoxetine 20 mg capsule 20 mg PO DAILY 01/03/25 Unknown Hi story trazodone 100 mg tablet 100 mg PO QHS PRN insomnia 5 Unknown History Allergy/AdvReac Type Severity Reaction Status Date / Time No Known Allergies Allergy Verified 01/03/25 06:16 Social History Smoking Status: Never smoker ROS ROS Narrative Unable to obtain review of systems due to the patient's dementia Vital Signs Vital Signs Vital Signs: 01/03/25 06:09 01/03/25 07:06 01/03/25 08:00 Temperature 97.8 F Temperature Source Oral Pulse Rate 106 H 74 74 Respiratory Rate 17 20 H 20 H Respiratory Pattern Blood Pressure 113/73 105/72 129/76 H Blood Pressure Mean 86 83 93 Blood Pressure Source Blood Pressure Position Blood Pressure Location Pulse Ox 95 98 95 Oxygen Delivery Method Room Air 01/03/25 08:57 01/03/25 10:00 01/03/25 10:37 Temperature 98 F Temperature Source Pulse Rate 74 68 70 Respiratory Rate 20 H 24 H 22 H Respiratory Pattern Blood Pressure 110/61 112/62 110/68 Blood Pressure Mean 77 78 82 Blood Pressure Source Blood Pressure Position Blood Pressure Location Pulse Ox 94 95 95 Oxygen Delivery Method Room Air 01/03/25 11:24 01/03/25 11:28 01/03/25 13:47 Temperature 97.2 F L Temperature Source Or (more content not included)... Normal [facility] L501.4021on 01-03-2025 Trop T High Sen 18 ng/L Normal <=22 [facility] Comment on above: Performed By: #### L 499.0043 #### [facility] [address] [place], [place], [address] Trop T High Sen 17 ng/L Normal <=22 [facility] Comment on above: Performed By: #### L 300.4310, L501.4021, L500.3400, L100.0100, L501.2450, L300.3900, L503.6005, BTS, L500.2500 ####[facility] [address] [place], [address] Lactic Acidon 01-03-2025 Lactate [Moles/Vol] 3.6 mmol/L Invalid Interpretation Code 0.0-2.0 [facility] Comment on above: Result Comment: Crit ical Result(s) Called at: 1152 01/03/2025 by: PORSCHE GUALLPA??Results read back by same. Performed By: #### L 100.0100, L500.2500 #### [facility] [address] [place], [address] Lactate [Moles/Vol] 2.7 mmol/L Invalid Interpretation Code 0.0-2.0 [facility] Comment on above: Order Comment: Y Result Comment: Crit ical Result(s) Called at: 0720 01/03/2025 by: REGGIE CRAWFORD??Results read back by same. Performed By: #### L 300.4310, L501.4021, L500.3400, L100.0100, L501.2450, L300.3900, L503.6005, BTS, L500.2500 ####[facility] [address] [place], [address] Lipaseon 01-03-2025 Lipase [Catalytic activity/Vol] 25 U/L Normal 13-75 [facility] Comment on above: Result Comment: Jessica rhodes note: LIPASE revised reference range effective 22. New Lipase methodology. Expected to produce lower values than the previous assay method. NEW Reference Range: 13 - 75 U/L Performed By: #### L 300.4310, L501.4021, L500.3400, L100.0100, L501.2450, L300.3900, L503.6005, BTS, L500.2500 ####[facility] [address] [place], [address] Liver Profileon 01-03-2025 Albumin [Mass/Vol] 4.0 g/dL Normal 3.4-4.8 [facility] Comment on above: Performed By: #### L 300.4310, L501.4021, L500.3400, L100.0100, L501.2450, L300.3900, L503.6005, BTS, L500.2500 ####[facility] [address] [place], [address] ALK PHOS 87 U/L Normal 40-129 [facility] Comment on above: Performed By: #### L 300.4310, L501.4021, L500.3400, L100.0100, L501.2450, L300.3900, L503.6005, BTS, L500.2500 ####[facility] [address] [place], [address] ALT [Catalytic activity/Vol] 14 U/L Normal <=46 [facility] Comment on above: Performed By: #### L 300.4310, L501.4021, L500.3400, L100.0100, L501.2450, L300.3900, L503.6005, BTS, L500.2500 ####[facility] [address] [place], [address] AST [Catalytic activity/Vol] 16 U/L Normal <=37 [facility] Comment on above: Performed By: #### L 300.4310, L501.4021, L500.3400, L100.0100, L501.2450, L300.3900, L503.6005, BTS, L500.2500 ####[facility] [address] [place], [address] Bilirubin [Mass/Vol] 0.33 mg/dL Normal 0.00-1.30 [facility] Comment on above: Performed By: #### L 300.4310, L501.4021, L500.3400, L100.0100, L501.2450, L300.3900, L503.6005, BTS, L500.2500 ####[facility] [address] [place], [address] Bilirubin.direct [Mass/Vol] 0.15 mg/dL Normal 0.00-0.30 [facility] Comment on above: Performed By: #### L 300.4310, L501.4021, L500.3400, L100.0100, L501.2450, L300.3900, L503.6005, BTS, L500.2500 ####[facility] [address], [address] Globulin (S) [Mass/Vol] 3.1 g/dL Normal 2.2-4.2 [facility] Comment on above: Performed By: #### L 300.4310, L501.4021, L500.3400, L100.0100, L501.2450, L300.3900, L503.6005, BTS, L500.2500 ####[facility] [address] [place], [address] T PROT 7.2 g/dL Normal 5.9-8.4 [facility] Comment on above: Performed By: #### L 300.4310, L501.4021, L500.3400, L100.0100, L501.2450, L300.3900, L503.6005, BTS, L500.2500 ####[facility] [address] [place], [address] Partial Thromboplast Timeon 01-03-2025 aPTT Coag (Bld) [Time] 25.3 s Normal 24.1-36.2 [facility] Comment on above: Performed By: #### L 300.4310, L501.4021, L500.3400, L100.0100, L501.2450, L300.3900, L503.6005, BTS, L500.2500 ####[facility] [address] [place], [address] Prothrombin Time w/INRon INR Coag (PPP) [Relative time] 1.0 {INR} Normal [facility] Comment on above: Performed By: #### L 300.4310, L501.4021, L500.3400, L100.0100, L501.2450, L300.3900, L503.6005, BTS, L500.2500 #### [facility] [address] [place], [address] PT Coag (PPP) [Time] 12.8 s Normal 11.7-14.9 [facility] Comment on above: Performed By: #### L 300.4310, L501.4021, L500.3400, L100.0100, L501.2450, L300.3900, L503.6005, BTS, L500.2500 #### [facility] [address], [address] Troponin T HS 2 HRon 025 Trop T High Sen Normal <=22 [facility] Comment on above: Result Comment: ONLY INITIAL NEEDED PER NADJA AND DR. WILLIS, CANCELLIING 2 AND 4 HR. Performed By: #### L 499.0043 #### [facility] [address] [place], [address] Trop T High Sen 18 ng/L Normal <=22 [facility] Comment on above: Performed By: #### L 499.0043 #### [facility] [address] [place], [address] Troponin T HS 4 HRon 025 Trop T High Sen Normal <=22 [facility] Comment on above: Result Comment: INIT IAL TROP NEEDED ONLY, CANCELLING 2 AND 4 HR PER NADJA AND DR WILLIS Performed By: #### L 499.0043 #### [facility] [address] [place], [address] Type AND Screenon 01-03-2025 ABO and Rh group Nom (Bld) Blood group B Rh(D) positive Normal [facility] Comment on above: Order Comment: HGI Performed By: #### L 300.4310, L501.4021, L500.3400, L100.0100, L501.2450, L300.3900, L503.6005, BTS, L500.2500 ####[facility] [address] [place], [address] Ab SCREEN GEL Negative Normal [facility] Comment on above: Order Comment: HGI Performed By: #### L 300.4310, L501.4021, L500.3400, L100.0100, L501.2450, L300.3900, L503.6005, BTS, L500.2500 ####[facility] [address] [place], [address] Urinalysis, Completeon 01-03 EPI,RENAL 0-5 SEEN Normal 0-5 [facility] Comment on above: Order Comment: JOANNA TER SPECIMEN Performed By: #### L 400.0001 #### [facility] [address] [place], [address] RBC 0-5 SEEN Normal 0-5 [facility] Comment on above: Order Comment: JOANNA TER SPECIMEN Performed By: #### L 400.0001 #### [facility] [address] [place], [address] BACTERIA 0 SEEN Normal None Seen [facility] Comment on above: Order Comment: JOANNA TER SPECIMEN Performed By: #### L 400.0001 #### [facility] [address] [place], [address] EPI,SQUAMOUS 0 SEEN Normal 0-5 [facility] Comment on above: Order Comment: JOANNA TER SPECIMEN Performed By: #### L 400.0001 #### [facility] [address] [place], [address] Mucus Ql (Urine sed) 0 SEEN Normal [facility] Comment on above: Order Comment: JOANNA TER SPECIMEN Performed By: #### L 400.0001 #### [facility] [address] [place], [address] WBC 0 SEEN Normal 0-5 [facility] Comment on above: Order Comment: JOANNA TER SPECIMEN Performed By: #### L 400.0001 #### [facility] [address] [place], [address] Culture, Blood (WB)on 2024 CUB Blood cultures x2, from two different sites No growth in 5 days. Normal [facility] Comment on above: Performed By: #### L 503.6005 #### [facility] [address] [place], [address] Basic Metabolic Profile (BMP )on 03-22-2024 BUN/CRE 7.1 RATIO Low 10-20 [facility] Comment on above: Performed By: #### L 100.0100, L500.2500 #### [facility] [address] [place], [address] CA,Total 9.0 mg/dL Normal 8.5-10.1 [facility] Comment on above: Performed By: #### L 100.0100, L500.2500 #### [facility] [address] [place], [address] Chloride [Moles/Vol] 109 mmol/L High 98-107 [facility] Comment on above: Performed By: #### L 100.0100, L500.2500 #### [facility] [address] [place], [address] CO2 [Moles/Vol] 26.0 mmol/L Normal 21.0-32.0 [facility] Comment on above: Performed By: #### L 100.0100, L500.2500 #### [facility] [address] [place], [address] Creatinine [Mass/Vol] 0.99 mg/dL Normal 0.70-1.30 [facility] Comment on above: Result Comment: The validity of the calculated GFR GFRAA in patients over 70 years has not been determined. Clinical correlation is essential. Performed By: #### L 100.0100, L500.2500 #### [facility] [address] [place], [address] ECRCL 64.47 ml/min Normal [facility] Comment on above: Performed By: #### L 100.0100, L500.2500 #### [facility] [address] [place], [address] EST GFR - AA 95 mL/min Normal >60 [facility] Comment on above: Result Comment: Afri can Greenlandic GFR Calc Performed By: #### L 100.0100, L500.2500 #### [facility] [address] [place], [address] GAP 7 Normal 5-15 [facility] Comment on above: Performed By: #### L 100.0100, L500.2500 #### [facility] [address] [place], [address] GFR/1.73 sq M.predicted among non-blacks MDRD (S/P/Bld) [Vol rate/Area] 78 mL/min/{1.73_m2} Normal >60 [facility] Comment on above: Result Comment: Non- GFR Calc Performed By: #### L 100.0100, L500.2500 #### [facility] [address] [place], [address] Glucose [Mass/Vol] 165 mg/dL High 74-106 [facility] Comment on above: Result Comment: Fast ing Glucose result greater than or equal to 126 mg/dL suggests DIABETES MELLITUS per A.D.A. criteria. Performed By: #### L 100.0100, L500.2500 #### [facility] [address] [place], [address] Potassium [Moles/Vol] 3.4 mmol/L Low 3.5-5.1 [facility] Comment on above: Performed By: #### L 100.0100, L500.2500 #### [facility] [address] [place], [address] Sodium [Moles/Vol] 142 mmol/L Normal 136-145 [facility] Comment on above: Performed By: #### L 100.0100, L500.2500 #### [facility] [address] [place], [address] Urea nitrogen [Mass/Vol] 7 mg/dL Normal 7-18 [facility] Comment on above: Performed By: #### L 100.0100, L500.2500 #### [facility] [address] [place], [address] CBC W/Diff, Automatedon 03-06 Absolute Lymph 1.79 X10 3/uL Normal 0.83-4.51 [facility] Comment on above: Performed By: #### L 100.0100, L500.2500 #### [facility] [address] [place], [address] Absolute Neut 6.9 X10 3/uL Normal 2.0-7.7 [facility] Comment on above: Performed By: #### L 100.0100, L500.2500 #### [facility] [address] [place], [address] Basophils/100 WBC (Bld) 0.5 % Normal 0-1 [facility] Comment on above: Performed By: #### L 100.0100, L500.2500 #### [facility] [address] [place], [address] Eosinophils/100 WBC (Bld) 4.6 % Normal 0-5 [facility] Comment on above: Performed By: #### L 100.0100, L500.2500 #### [facility] [address] [place], [address] Erythrocyte distribution width (RBC) [Ratio] 13.0 % Normal 11.6-14.6 [facility] Comment on above: Performed By: #### L 100.0100, L500.2500 #### [facility] [address] [place], [address] Hematocrit (Bld) [Volume fraction] 39.5 % Low 40-54 [facility] Comment on above: Performed By: #### L 100.0100, L500.2500 #### [facility] [address] [place], [address] Hemoglobin (Bld) [Mass/Vol] 12.9 g/dL Low 13.0-16.5 [facility] Comment on above: Performed By: #### L 100.0100, L500.2500 #### [facility] [address] [place], [address] IG% 2.700 High 0.0-0.9 [facility] Comment on above: Result Comment: IG% - Immature Granulocytes (promyelocytes, myelocytes and metamyelocytes) > 1% indicates that a LEFT SHIFT is Present. Performed By: #### L 100.0100, L500.2500 #### [facility] [address] [place], [address] Lymphocytes/100 WBC (Bld) 17.1 % Low 19-41 [facility] Comment on above: Performed By: #### L 100.0100, L500.2500 #### [facility] [address] [place], [address] MCH (RBC) [Entitic mass] 29.7 pg Normal 27.0-32.0 [facility] Comment on above: Performed By: #### L 100.0100, L500.2500 #### [facility] [address] [place], [address] MCHC (RBC) [Mass/Vol] 32.7 g/dL Normal 32-36 [facility] Comment on above: Performed By: #### L 100.0100, L500.2500 #### [facility] [address] [place], [address] MCV (RBC) [Entitic vol] 90.8 fL Normal 80-94 [facility] Comment on above: Performed By: #### L 100.0100, L500.2500 #### [facility] [address] [place], [address] Monocytes/100 WBC (Bld) 8.8 % Normal 0-10 [facility] Comment on above: Performed By: #### L 100.0100, L500.2500 #### [facility] [address] [place], [address] Neutrophils/100 WBC (Bld) 66.3 % Normal 47-70 [facility] Comment on above: Performed By: #### L 100.0100, L500.2500 #### [facility] [address] [place], [address] Nucleated RBC (Bld) [#/Vol] 0 10*3/uL Normal 0-5 [facility] Comment on above: Performed By: #### L 100.0100, L500.2500 #### [facility] [address] [place], [address] Platelet mean volume (Bld) [Entitic vol] 10.2 fL Normal 6.2-12.0 [facility] Comment on above: Performed By: #### L 100.0100, L500.2500 #### [facility] [address] [place], [address] Platelets (Bld) [#/Vol] 190 10*3/uL Normal 150-450 [facility] Comment on above: Performed By: #### L 100.0100, L500.2500 #### [facility] [address] [place], [address] RBC (Bld) [#/Vol] 4.35 10*6/uL Low 4.6-6.2 [facility] Comment on above: Performed By: #### L 100.0100, L500.2500 #### [facility] [address] [place], [address] RDW SD 43.3 fl Normal 35.1-43.9 [facility] Comment on above: Performed By: #### L 100.0100, L500.2500 #### [facility] [address] [place], [address] WBC (Bld) [#/Vol] 10.4 10*3/uL Normal 4.4-11.0 [facility] Comment on above: Performed By: #### L 100.0100, L500.2500 #### [facility] [address] [place], [address] Magnesiumon 03-22-2024 Magnesium [Mass/Vol] 2.2 mg/dL Normal 1.6-2.6 [facility] Comment on above: Performed By: #### L 100.0100, L500.2500 #### [facility] [address] [place], [address] Phosphoruson 03-22-2024 Phosphate [Mass/Vol] 3.2 mg/dL Normal 2.5-4.9 [facility] Comment on above: Performed By: #### L 100.0100, L500.2500 #### [facility] [address] [place], [address] Basic Metabolic Profile (BMP )on 03-21-2024 BUN/CRE 17.0 RATIO Normal 10-20 [facility] Comment on above: Performed By: #### L 100.0100, L500.2500 #### [facility] [address] [place], [address] CA,Total 8.4 mg/dL Low 8.5-10.1 [facility] Comment on above: Performed By: #### L 100.0100, L500.2500 #### [facility] [address] [place], [address] Chloride [Moles/Vol] 112 mmol/L High 98-107 [facility] Comment on above: Performed By: #### L 100.0100, L500.2500 #### [facility] [address] [place], [address] CO2 [Moles/Vol] 24.0 mmol/L Normal 21.0-32.0 [facility] Comment on above: Performed By: #### L 100.0100, L500.2500 #### [facility] [address] [place], [address] Creatinine [Mass/Vol] 0.88 mg/dL Normal 0.70-1.30 [facility] Comment on above: Result Comment: The validity of the calculated GFR GFRAA in patients over 70 years has not been determined. Clinical correlation is essential. Performed By: #### L 100.0100, L500.2500 #### [facility] [address] [place], [address] ECRCL 72.53 ml/min Normal [facility] Comment on above: Performed By: #### L 100.0100, L500.2500 #### [facility] [address] [place], [address] EST GFR - AA 108 mL/min Normal >60 [facility] Comment on above: Result Comment: Afri can Green[place]ic GFR Calc Performed By: #### L 100.0100, L500.2500 #### [facility] [address] [place], [address] GAP 5 Normal 5-15 [facility] Comment on above: Performed By: #### L 100.0100, L500.2500 #### [facility] [address] [place], [address] GFR/1.73 sq M.predicted among non-blacks MDRD (S/P/Bld) [Vol rate/Area] 89 mL/min/{1.73_m2} Normal >60 [facility] Comment on above: Result Comment: Non- GFR Calc Performed By: #### L 100.0100, L500.2500 #### [facility] [address] [place], [address] Glucose [Mass/Vol] 127 mg/dL High 74-106 [facility] Comment on above: Result Comment: Fast ing Glucose result greater than or equal to 126 mg/dL suggests DIABETES MELLITUS per A.D.A. criteria. Performed By: #### L 100.0100, L500.2500 #### [facility] [address] [place], [address] Potassium [Moles/Vol] 3.4 mmol/L Low 3.5-5.1 [facility] Comment on above: Performed By: #### L 100.0100, L500.2500 #### [facility] [address], [address] Sodium [Moles/Vol] 140 mmol/L Normal 136-145 [facility] Comment on above: Performed By: #### L 100.0100, L500.2500 #### [facility] [address] [place], [address] Urea nitrogen [Mass/Vol] 15 mg/dL Normal 7-18 [facility] Comment on above: Performed By: #### L 100.0100, L500.2500 #### [facility] [address] [place], [address] CBC W/Diff, Automatedon 03-06 Absolute Lymph 1.75 X10 3/uL Normal 0.83-4.51 [facility] Comment on above: Performed By: #### L 100.0100, L500.2500 #### [facility] [address] [place], [address] Absolute Neut 9.6 X10 3/uL High 2.0-7.7 [facility] Comment on above: Performed By: #### L 100.0100, L500.2500 #### [facility] [address] [place], [address] Basophils/100 WBC (Bld) 0.4 % Normal 0-1 [facility] Comment on above: Performed By: #### L 100.0100, L500.2500 #### [facility] [address] [place], [address] Eosinophils/100 WBC (Bld) 3.9 % Normal 0-5 [facility] Comment on above: Performed By: #### L 100.0100, L500.2500 #### [facility] [address] [place], [address] Erythrocyte distribution width (RBC) [Ratio] 12.8 % Normal 11.6-14.6 [facility] Comment on above: Performed By: #### L 100.0100, L500.2500 #### [facility] [address] [place], [address] Hematocrit (Bld) [Volume fraction] 39.0 % Low 40-54 [facility] Comment on above: Performed By: #### L 100.0100, L500.2500 #### [facility] [address] [place], [address] Hemoglobin (Bld) [Mass/Vol] 13.0 g/dL Normal 13.0-16.5 [facility] Comment on above: Performed By: #### L 100.0100, L500.2500 #### [facility] [address] [place], [address] IG% 1.300 High 0.0-0.9 [facility] Comment on above: Result Comment: IG% - Immature Granulocytes (promyelocytes, myelocytes and metamyelocytes) > 1% indicates that a LEFT SHIFT is Present. Performed By: #### L 100.0100, L500.2500 #### [facility] [address], [address] Lymphocytes/100 WBC (Bld) 13.3 % Low 19-41 [facility] Comment on above: Performed By: #### L 100.0100, L500.2500 #### [facility] [address] [place], [address] MCH (RBC) [Entitic mass] 30.2 pg Normal 27.0-32.0 [facility] Comment on above: Performed By: #### L 100.0100, L500.2500 #### [facility] [address] [place], [address] MCHC (RBC) [Mass/Vol] 33.3 g/dL Normal 32-36 [facility] Comment on above: Performed By: #### L 100.0100, L500.2500 #### [facility] [address], [address] MCV (RBC) [Entitic vol] 90.5 fL Normal 80-94 [facility] Comment on above: Performed By: #### L 100.0100, L500.2500 #### [facility] [address] [place], [address] Monocytes/100 WBC (Bld) 8.6 % Normal 0-10 [facility] Comment on above: Performed By: #### L 100.0100, L500.2500 #### [facility] [address] [place], [address] Neutrophils/100 WBC (Bld) 72.5 % High 47-70 [facility] Comment on above: Performed By: #### L 100.0100, L500.2500 #### [facility] [address] [place], [address] Nucleated RBC (Bld) [#/Vol] 0 10*3/uL Normal 0-5 [facility] Comment on above: Performed By: #### L 100.0100, L500.2500 #### [facility] [address] [place], [address] Platelet mean volume (Bld) [Entitic vol] 10.7 fL Normal 6.2-12.0 [facility] Comment on above: Performed By: #### L 100.0100, L500.2500 #### [facility] [address] [place], [address] Platelets (Bld) [#/Vol] 158 10*3/uL Normal 150-450 [facility] Comment on above: Performed By: #### L 100.0100, L500.2500 #### [facility] [address] [place], [address] RBC (Bld) [#/Vol] 4.31 10*6/uL Low 4.6-6.2 [facility] Comment on above: Performed By: #### L 100.0100, L500.2500 #### [facility] [address] [place], [address] RDW SD 42.4 fl Normal 35.1-43.9 [facility] Comment on above: Performed By: #### L 100.0100, L500.2500 #### [facility] [address] [place], [address] WBC (Bld) [#/Vol] 13.2 10*3/uL High 4.4-11.0 [facility] Comment on above: Performed By: #### L 100.0100, L500.2500 #### [facility] [address] [place], [address] Urine Cultureon 03-21-2024 URC Culture exhibits no growth. Normal [facility] Comment on above: Performed By: #### L 100.0100, L500.2500 #### [facility] [address] [place], [address] BC GPC IDon 03-20-2024 BC GPC ID Blood cultures x2, from two different sites Enterococcus sp. Not Detected Listeria spp Not Detected NAAT METHOD Testing was performed using nucleic acid amplification Staphylococcus sp. A DETECTED A Streptococcus spp. Not Detected mecA Not Detected Susan/vanB Not Detected Coag Negative Staph Normal [facility] Comment on above: Performed By: #### L 503.6005 #### [facility] [address] [place], [address] Basic Metabolic Profile (BMP )on 03-20-2024 BUN/CRE 23.2 RATIO High 10-20 [facility] Comment on above: Performed By: #### L 499.0043 #### [facility] [address] [place], [address] CA,Total 7.9 mg/dL Low 8.5-10.1 [facility] Comment on above: Performed By: #### L 499.0043 #### [facility] [address] [place], [address] Chloride [Moles/Vol] 113 mmol/L High 98-107 [facility] Comment on above: Performed By: #### L 499.0043 #### [facility] [address] [place], [address] CO2 [Moles/Vol] 23.0 mmol/L Normal 21.0-32.0 [facility] Comment on above: Performed By: #### L 499.0043 #### [facility] [address] [place], [address] Creatinine [Mass/Vol] 1.12 mg/dL Normal 0.70-1.30 [facility] Comment on above: Result Comment: The validity of the calculated GFR GFRAA in patients over 70 years has not been determined. Clinical correlation is essential. Performed By: #### L 499.0043 #### [facility] [address] [place], [address] ECRCL 56.99 ml/min Normal [facility] Comment on above: Performed By: #### L 499.0043 #### [facility] [address] [place], [address] EST GFR - AA 82 mL/min Normal >60 [facility] Comment on above: Result Comment: Afri can Green[place] GFR Calc Performed By: #### L 499.0043 #### [facility] [address] [place], [address] GAP 3 Low 5-15 [facility] Comment on above: Performed By: #### L 499.0043 #### [facility] [address] [place], [address] GFR/1.73 sq M.predicted among non-blacks MDRD (S/P/Bld) [Vol rate/Area] 68 mL/min/{1.73_m2} Normal >60 [facility] Comment on above: Result Comment: Non- GFR Calc Performed By: #### L 499.0043 #### [facility] [address] [place], [address] Glucose [Mass/Vol] 117 mg/dL High 74-106 [facility] Comment on above: Result Comment: Fast ing Glucose result from 100 to 125 mg/dL suggests IMPAIRED HOMEOSTASIS per A.D.A. criteria. Performed By: #### L 499.0043 #### [facility] [address] [place], [address] Potassium [Moles/Vol] 3.9 mmol/L Normal 3.5-5.1 [facility] Comment on above: Performed By: #### L 499.0043 #### [facility] [address] [place], [address] Sodium [Moles/Vol] 140 mmol/L Normal 136-145 [facility] Comment on above: Performed By: #### L 499.0043 #### [facility] [address] [place], [address] Urea nitrogen [Mass/Vol] 26 mg/dL High 7-18 [facility] Comment on above: Performed By: #### L 499.0043 #### [facility] [address] [place], [address] CBC W/Diff, Automatedon 03-06 PLT TNP Normal 150-450 [facility] Comment on above: Result Comment: Plea se note: For this sample, a platelet estimate is provided rather than a platelet count due to platelet clumping. Other parameters associated with this sample are not affected by platelet clumping. If a more accurate platelet count is required, a redraw of the patient will be necessary. Performed By: #### L 499.0043 #### [facility] [address] [place], [address] PLT EST ADEQUATE Normal ADEQ [facility] Comment on above: Performed By: #### L 499.0043 #### [facility] [address] [place], [address] SMEAR COMMENT SCANNED Normal [facility] Comment on above: Result Comment: Plea se note: For this sample, a platelet estimate is provided rather than a platelet count due to platelet clumping. Other parameters associated with this sample are not affected by platelet clumping. If a more accurate platelet count is required, a redraw of the patient will be necessary. Performed By: #### L 499.0043 #### [facility] [address] [place], [address] Urinalysis, Completeon 03-20 BACTERIA RARE Normal None Seen [facility] Comment on above: Order Comment: COLLE CTOR TO SPECIFY Performed By: #### L 100.0100, L500.2500 #### [facility] [address] [place], [address] EPI,SQUAMOUS 0 SEEN Normal 0-5 [facility] Comment on above: Order Comment: COLLE CTOR TO SPECIFY Performed By: #### L 100.0100, L500.2500 #### [facility] [address] [place], [address] Mucus Ql (Urine sed) 0 SEEN Normal [facility] Comment on above: Order Comment: COLLE CTOR TO SPECIFY Performed By: #### L 100.0100, L500.2500 #### [facility] [address] [place], [address] RBC 0 SEEN Normal 0-5 [facility] Comment on above: Order Comment: COLLE CTOR TO SPECIFY Performed By: #### L 100.0100, L500.2500 #### [facility] [address] [place], [address] WBC 0 SEEN Normal 0-5 [facility] Comment on above: Order Comment: COLLE CTOR TO SPECIFY Performed By: #### L 100.0100, L500.2500 #### [facility] [address] [place], [address] CBC W/Diff, Automatedon 03-06 Absolute Lymph 0.26 X10 3/uL Low 0.83-4.51 [facility] Comment on above: Performed By: #### L 499.0043 #### [facility] [address] [place], [address] Absolute Neut 12.3 X10 3/uL High 2.0-7.7 [facility] Comment on above: Performed By: #### L 499.0043 #### [facility] [address] [place], [address] Basophils/100 WBC (Bld) 0.5 % Normal 0-1 [facility] Comment on above: Performed By: #### L 499.0043 #### [facility] [address] [place], [address] Eosinophils/100 WBC (Bld) 0.1 % Normal 0-5 [facility] Comment on above: Performed By: #### L 499.0043 #### [facility] [address] [place], [address] Erythrocyte distribution width (RBC) [Ratio] 12.8 % Normal 11.6-14.6 [facility] Comment on above: Performed By: #### L 499.0043 #### [facility] [address] [place], [address] Hematocrit (Bld) [Volume fraction] 47.1 % Normal 40-54 [facility] Comment on above: Performed By: #### L 499.0043 #### [facility] [address] [place], [address] Hemoglobin (Bld) [Mass/Vol] 15.8 g/dL Normal 13.0-16.5 [facility] Comment on above: Performed By: #### L 499.0043 #### [facility] [address] [place], [address] IG% 1.600 High 0.0-0.9 [facility] Comment on above: Result Comment: IG% - Immature Granulocytes (promyelocytes, myelocytes and metamyelocytes) > 1% indicates that a LEFT SHIFT is Present. Performed By: #### L 499.0043 #### [facility] [address] [place], [address] Lymphocytes/100 WBC (Bld) 2.0 % Low 19-41 [facility] Comment on above: Performed By: #### L 499.0043 #### [facility] [address] [place], [address] MCH (RBC) [Entitic mass] 30.5 pg Normal 27.0-32.0 [facility] Comment on above: Performed By: #### L 499.0043 #### [facility] [address] [place], [address] MCHC (RBC) [Mass/Vol] 33.5 g/dL Normal 32-36 [facility] Comment on above: Performed By: #### L 499.0043 #### [facility] [address] [place], [address] MCV (RBC) [Entitic vol] 90.9 fL Normal 80-94 [facility] Comment on above: Performed By: #### L 499.0043 #### [facility] [address] [place], [address] Monocytes/100 WBC (Bld) 3.3 % Normal 0-10 [facility] Comment on above: Performed By: #### L 499.0043 #### [facility] [address] [place], [address] Neutrophils/100 WBC (Bld) 92.5 % High 47-70 [facility] Comment on above: Performed By: #### L 499.0043 #### [facility] [address] [place], [address] Nucleated RBC (Bld) [#/Vol] 0 10*3/uL Normal 0-5 [facility] Comment on above: Performed By: #### L 499.0043 #### [facility] [address] [place], [address] Platelet mean volume (Bld) [Entitic vol] 10.5 fL Normal 6.2-12.0 [facility] Comment on above: Performed By: #### L 499.0043 #### [facility] [address] [place], [address] Platelets (Bld) [#/Vol] 182 10*3/uL Normal 150-450 [facility] Comment on above: Performed By: #### L 499.0043 #### [facility] [address] [place], [address] RBC (Bld) [#/Vol] 5.18 10*6/uL Normal 4.6-6.2 [facility] Comment on above: Performed By: #### L 499.0043 #### [facility] [address] [place], [address] RDW SD 42.5 fl Normal 35.1-43.9 [facility] Comment on above: Performed By: #### L 499.0043 #### [facility] [address] [place], [address] WBC (Bld) [#/Vol] 13.2 10*3/uL High 4.4-11.0 [facility] Comment on above: Performed By: #### L 499.0043 #### [facility] [address], [address] Chest 1 View (Portable)on Chest 1 View (Portable) [facility] [address] [place] [address] Chest 1 View (Portable) MR#: [id number] Acct: [id number] Name: ALLAN LARA Rep #: [id number] : 1950 M 73 From: Marky Jhaveri MD PCP: Dr. Simone Messer MD Status: PRE ER Study: Chest 1 View (Portable) Date of Exam: 03/19/24 Exam# [id number] Ordering Dr: Shon Hoskisn DO [id number] EXAM: XR CHEST, 1 VIEW CLINICAL INDICATION: Shortness of breath TECHNIQUE: Frontal view of the chest. COMPARISON: XR Chest dated 03/09/2024 FINDINGS: LUNGS AND PLEURAL SPACES: New area of airspace opacification involves the right middle and lower lobes of the lung suggestive of pneumonia. Minimal infiltrate or atelectasis left lung base. HEART: Normal heart size. MEDIASTINUM: No mediastinal or hilar mass. BONES/JOINTS: No acute abnormality. RAD/Chest 1 View (Portable) IMPRESSION: New area of airspace opacification involves the right middle and lower lobes of the lung suggestive of pneumonia. Electronically Signed: Marky Jhaveri MD at 11:51 EST , CC: Dr. Shon Hoskins, DO; Dr. Simone Messer MD Electrician'S Assistant: Signed Normal [facility] Comprehensive Metabolic Prof ilon 03-19-2024 Albumin [Mass/Vol] 3.1 g/dL Low 3.2-5.0 [facility] Comment on above: Order Comment: 'TROP ' Serial specimen #1, #2 or #3: 1 Performed By: #### L 169.6009 #### [facility] [address] [place], [address] Albumin/Globulin [Mass ratio] 0.9 {ratio} Normal 0.9-2.4 [facility] Comment on above: Order Comment: 'TROP ' Serial specimen #1, #2 or #3: 1 Performed By: #### L 102.6004 #### [facility] [address] [place], [address] ALK P 63 U/L Normal 45-117 [facility] Comment on above: Order Comment: 'TROP ' Serial specimen #1, #2 or #3: 1 Performed By: #### L 891.6000 #### [facility] [address] [place], [address] ALT [Catalytic activity/Vol] 11 U/L Low 16-61 [facility] Comment on above: Order Comment: 'TROP ' Serial specimen #1, #2 or #3: 1 Performed By: #### L 503.6005 #### [facility] [address] [place], [address] AST [Catalytic activity/Vol] 9 U/L Low 15-37 [facility] Comment on above: Order Comment: 'TROP ' Serial specimen #1, #2 or #3: 1 Performed By: #### L 503.6005 #### [facility] [address] [place], [address] Bilirubin [Mass/Vol] 0.80 mg/dL Normal 0.20-1.00 [facility] Comment on above: Order Comment: 'TROP ' Serial specimen #1, #2 or #3: 1 Result Comment: For patients on eltrombopag therapy, use of Dimension [place] TBIL is not recommended. Performed By: #### L 503.6005 #### [facility] [address] [place], [address] BUN/CRE 17.5 RATIO Normal 10-20 [facility] Comment on above: Order Comment: 'TROP ' Serial specimen #1, #2 or #3: 1 Performed By: #### L 503.6005 #### [facility] [address] [place], [address] CA,Total 8.2 mg/dL Low 8.5-10.1 [facility] Comment on above: Order Comment: 'TROP ' Serial specimen #1, #2 or #3: 1 Performed By: #### L 503.6005 #### [facility] [address] [place], [address] Chloride [Moles/Vol] 108 mmol/L High 98-107 [facility] Comment on above: Order Comment: 'TROP ' Serial specimen #1, #2 or #3: 1 Performed By: #### L 503.6005 #### [facility] [address] [place], [address] CO2 [Moles/Vol] 19.0 mmol/L Low 21.0-32.0 [facility] Comment on above: Order Comment: 'TROP ' Serial specimen #1, #2 or #3: 1 Performed By: #### L 503.6005 #### [facility] [address] [place], [address] Creatinine [Mass/Vol] 2.11 mg/dL High 0.70-1.30 [facility] Comment on above: Order Comment: 'TROP ' Serial specimen #1, #2 or #3: 1 Result Comment: The validity of the calculated GFR GFRAA in patients over 70 years has not been determined. Clinical correlation is essential. Performed By: #### L 503.6005 #### [facility] [address] [place], [address] ECRCL 30.25 ml/min Normal [facility] Comment on above: Order Comment: 'TROP ' Serial specimen #1, #2 or #3: 1 Performed By: #### L 031.6005 #### [facility] [address] [place], [address] EST GFR - AA 40 mL/min Low >60 [facility] Comment on above: Order Comment: 'TROP ' Serial specimen #1, #2 or #3: 1 Result Comment: Afri can Green[place] GFR Calc Performed By: #### L 503.6005 #### [facility] [address] [place], [address] GAP 12 Normal 5-15 [facility] Comment on above: Order Comment: 'TROP ' Serial specimen #1, #2 or #3: 1 Performed By: #### L 503.6005 #### [facility] [address] [place], [address] GFR/1.73 sq M.predicted among non-blacks MDRD (S/P/Bld) [Vol rate/Area] 33 mL/min/{1.73_m2} Low >60 [facility] Comment on above: Order Comment: 'TROP ' Serial specimen #1, #2 or #3: 1 Result Comment: Non- GFR Calc Performed By: #### L 503.6005 #### [facility] [address] [place], [address] Globulin (S) [Mass/Vol] 3.6 g/dL Normal 2.2-4.2 [facility] Comment on above: Order Comment: 'TROP ' Serial specimen #1, #2 or #3: 1 Performed By: #### L 503.6005 #### [facility] [address] [place], [address] Glucose [Mass/Vol] 219 mg/dL High 74-106 [facility] Comment on above: Order Comment: 'TROP ' Serial specimen #1, #2 or #3: 1 Result Comment: Gluc ose result greater than or equal to 200 mg/dL suggests DIABETES MELLITUS per A.D.A. criteria. Performed By: #### L 503.6005 #### [facility] [address] [place], [address] Potassium [Moles/Vol] 3.9 mmol/L Normal 3.5-5.1 [facility] Comment on above: Order Comment: 'TROP ' Serial specimen #1, #2 or #3: 1 Performed By: #### L 503.6005 #### [facility] [address] [place], [address] Sodium [Moles/Vol] 139 mmol/L Normal 136-145 [facility] Comment on above: Order Comment: 'TROP ' Serial specimen #1, #2 or #3: 1 Performed By: #### L 503.6005 #### [facility] [address] [place], [address] T PROT 6.7 g/dL Normal 6.4-8.2 [facility] Comment on above: Order Comment: 'TROP ' Serial specimen #1, #2 or #3: 1 Performed By: #### L 503.6005 #### [facility] [address] [place], [address] Urea nitrogen [Mass/Vol] 37 mg/dL High 7-18 [facility] Comment on above: Order Comment: 'TROP ' Serial specimen #1, #2 or #3: 1 Performed By: #### L 503.6005 #### [facility] [address] [place], [address] Emergency Department Summary on 03-19-2024 Emergency Department Summary [facility] Medical Records Department [address] [place] [address] Emergency Department Summary 03/19/24 MR#: [id number] Acct: [id number] Name: ALLAN LARA Rep #: [id number] : 1950 73 From: Shon Hoskins DO PCP: Dr. Simone Messer MD Status:REG ER Location: ED HPI History of Present Illness Chief Complaint: Shortness of Breath Narrative Narrative: Chief complaint and HPI: Shortness of breath and hypoxia. 73-year-old male with past medical history of schizoaffective disorder with delusional disorder, DM, hypothyroidism, HTN, chronic hypoxia on 3 L nasal cannula at baseline presents from [facility] for evaluation of acute on chronic hypoxia and shortness of breath. Due to his schizoaffective disorder with delusional disorder patient is unable to provide history. He is alert and oriented to self only. This is his baseline per report. History taken via report. Per report, patient endorsed shortness of breath today. He was found to be hypoxic with saturations in the 70s on his baseline 3 L nasal cannula. He was increased to 5 L nasal cannula and EMS was called. On chart review, patient was seen in our emergency department on 03/09 and diagnosed with a left lower lobe pneumonia. He was discharged home on a 7-day course of Levaquin. Review of systems: See HPI Medications: As listed on the chart Allergies: As listed on the chart PFSH: Per chart Vital signs: As listed on the chart. Reviewed. Physical exam: Gen: Alert, oriented to self only Head: Normocephalic, atraumatic Eyes: No sclera icterus, conjunctiva clear, PERRL, EOMI ENT: Dry t mucous membranes Neck: Trachea midline, No JVD CV: Tachycardic, regular rhythm, no murmurs, no peripheral edema Resp: Lungs diminished in the bilateral bases, no wheezing, on baseline 3 L nasal cannula GI: Abd soft, non-distended, non-tender, no r/r/g Musc: Moves all extremities, no deformity Skin: Warm, dry Neuro: Alert, grossly intact [facility] Medical History Neoplasm of right kidney Dementia COVID Fall Benign prostatic hyperplasia without lower urinary tract symptoms Drug induced subacute dyskinesia Unspecified dementia, unspecified severity, without behavioral disturbance, psychotic disturbance, mood disturbance, and anxiety Hypothyroidism 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 Depression Diabetic myelopathy due to secondary diabetes mellitus Diabetes Diabetes mellitus, type II Hypertension Home Medications ???Medication ???Instructions ???Recorded ???Last Taken ???Type amlodipine 10 mg tablet 10 mg PO QHS BP 07/30/17 07/11/19 History levothyroxine 25 mcg tablet 50 mcg PO DAILY THYROID 07/30/17 07/11/19 History tamsulosin 0.4 mg capsule 0.4 mg PO QHS PROSTATE 07/30/17 07/11/19 History atorvastatin 10 mg tablet 10 mg PO QHS 07/04/22 Unknown History cholecalciferol (vitamin D3) 125 125 mcg PO DAILY 07/04/22 Unknown History mcg (5,000 unit) tablet (Vitamin D3) clozapine 100 mg tablet 100 mg PO DAILY 07/04/22 Unknown History clozapine 200 mg tablet 200 mg PO QHS 07/04/22 Unknown History fluoxetine 10 mg capsule (Prozac) 10 mg PO DAILY 07/04/22 Unknown History ipratropium 0.5 mg-albuterol 3 mg 3 ml inhalation Q4H PRN PRN 07/04/22 Unknown History (2.5 mg base)/3 mL nebulization Wheezing soln omeprazole 20 mg capsule,delayed 20 mg PO DAILY 07/04/22 Unknown History release ciprofloxacin HCl 500 mg tablet 500 mg PO BID #10 tabs 07/06/22 Unknown Rx metronidazole 500 mg tablet 500 mg PO BID #10 tabs 07/06/22 Unknown Rx levofloxacin 500 mg tablet 500 mg PO DAILY #7 tabs 03/10/24 Unknown Rx Allergy/AdvReac Type Severity Reaction Status Date / Time No Known Allergies Allergy Verified 03/09/24 22:47 Social History Smoking Status: Never smoker EXAM Physical Exam Const Vital Signs: 03/19/24 10:32 03/19/24 10:32 03/19/24 11:02 Temperature 99.7 F H Temperature Source Oral Pulse Rate 135 H 130 H Respiratory Rate 20 H 18 Blood Pressure 104/92 H 104/92 H Blood Pressure Mean 96 96 Pulse Ox 93 94 Oxygen Delivery Method Nasal Cannula Nasal Cannula Room Air Oxygen Flow Rate (L/min) 4 3 03/19/24 11:02 03/19/24 11:37 03/19/24 11:51 Temperature 99.8 F H Temperature Source Oral Pulse Rate 115 H 114 H Respiratory Rate 18 20 H Blood Pressure 105/78 Blood Pressure Mean 87 Pulse Ox 92 Oxygen Delivery Method Nasal Cannula Room Air Oxygen Flow Rate (L/min) 3 03/19/24 12:15 03/19/24 12:31 Temperature 99.9 F H 99.8 F H Temperature Source Temporal Oral Pulse Rate 108 H 100 Respiratory Rate 20 H 18 (more content not included)... Normal [facility] H AND P Exam - Hospitaliston 03-19-2024 H&P Exam - Hospitalist [facility] Medical Records Department [address] [place] [address] H P Exam - Hospitalist 03/19/242000 MR#: [id number] Acct: [id number] Name: ALLAN LARA Rep #: [id number] : 1950 73 From: Darshan Quiroz MD PCP: Dr. Simone Messer MD Status:ADM IN Location: MS3 [id number] HPI - General General Date of Admission: 03/19/24 HPI Narrative ALLAN LARA, is a 73 M who presents from the retirement with shortness of breath and hypoxia. He has a baseline history of dementia and does not provide much other than yes and no answers. He is normally on 3 L nasal cannula at baseline but today he was found to be 70% on his baseline oxygen. Currently on 4 L nasal cannula. He was found to have sepsis due to pneumonia, he was recently seen on 03/09/2024 for a left lower lobe pneumonia and was placed on Levaquin for 7 days. Current chest x-ray demonstrates new areas of opacification in the right middle and lower lobes of the lung consistent with pneumonia. White count is 13 with an HAYLIE to 2.11 and a lactic acid initially of 6.5 improved to 4.3. 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 07/04/22 Unknown History mcg (5,000 unit) tablet (Vitamin D3) clozapine 200 mg tablet 200 mg PO QHS anxiety 07/04/22 Unknown History fluoxetine 10 mg capsule (Prozac) 20 mg PO DAILY anxiety 07/04/22 Unknown History ipratropium 0.5 mg-albuterol 3 mg 3 ml inhalation Q4H PRN PRN 07/04/22 Unknown History (2.5 mg base)/3 mL nebulization Wheezing soln omeprazole 20 mg capsule,delayed 20 mg PO DAILY gerd 07/04/22 Unknown History release lorazepam 0.5 mg tablet 0.5 mg PO DAILY anxiety 03/19/24 Unknown History lorazepam 1 mg tablet 1 mg PO BID anxiety 03/19/24 Unknown History Allergy/AdvReac Type Severity Reaction Status Date / Time No Known Allergies Allergy Verified 03/09/24 22:47 unable to obtain unable to obtain Social History Smoking Status: Never smoker ROS Review of Systems ROS Unobtainable: due to mental status Vital Signs Vital Signs Vital Signs: 03/19/24 10:32 03/19/24 10:32 03/19/24 11:02 Temperature 99.7 F H Temperature Source Oral Pulse Rate 135 H 130 H Respiratory Rate 20 H 18 Respiratory Effort Respiratory Depth Respiratory Pattern Blood Pressure 104/92 H 104/92 H Blood Pressure Mean 96 96 Blood Pressure Source Blood Pressure Position Blood Pressure Location Pulse Ox 93 94 Oxygen Delivery Method Nasal Cannula Nasal Cannula Room Air Oxygen Flow Rate (L/min) 4 3 03/19/24 11:02 03/19/24 11:37 03/19/24 11:51 Temperature 99.8 F H Temperature Source Oral Pulse Rate 115 H 114 H Respiratory Rate 18 20 H Respiratory Effort Respiratory Depth Respiratory Pattern Blood Pressure 105/78 Blood Pressure Mean 87 Blood Pressure Source Blood Pressure Position Blood Pressure Location Pulse Ox 92 Oxygen Delivery Method Nasal Cannula Room Air Oxygen Flow Rate (L/min) 3 03/19/24 12:15 03/19/24 12:31 03/19/24 13:01 Temperature 99.9 F H 99.8 F H 99.9 F H Temperature Source Temporal Oral Oral Pulse Rate 108 H 100 104 H Respiratory Rate 20 H 18 18 Respiratory Effort Respiratory Depth Respiratory Pattern Blood Pressure 106/71 106/78 91/78 Blood Pressure Mean 82 87 82 Blood Pressure Source Blood Pressure Position Blood Pressure Location Pulse Ox 95 96 94 Oxygen Delivery Method Nasal Cannula Nasal Cannula Nasal Cannula Oxygen Flow Rate (L/min) 4 4 4 03/19/24 13:03 03/19/24 13:18 03/19/24 13:33 Temperature 99.4 F H 99.7 F H 99.9 F H Temperature Source Oral Oral Temporal Pulse Rate 104 H 98 101 H Respiratory Rate 18 16 16 Respiratory Effort Respiratory Dep (more content not included)... Normal [facility] L501.4020on 03-19-2024 TROPONIN-I HS 14 pg/mL Normal 3.0-78.0 [facility] Comment on above: Order Comment: 'TROP ' Serial specimen #1, #2 or #3: 1 Result Comment: Plea se Note: New Test Units and Gender Specific Reference Ranges. For more information see Policy Stat Procedure [place] High Sensitivity Troponin (TNIH) and attachments. Performed By: #### L 503.6005 #### [facility] [address] [place], [place], [id number] Lactic Acidon 03-19-2024 Lactate [Moles/Vol] 4.3 mmol/L Invalid Interpretation Code 0.4-1.9 [facility] Comment on above: Result Comment: Crit ical Result(s) Called at: 17:17:47 03/19/2024 by: ESTRELLA GARCIA. Results read back by Génesis Lentz Performed By: #### L 503.6005 #### [facility] [address], [address] Lactate [Moles/Vol] 6.5 mmol/L Invalid Interpretation Code 0.4-1.9 [facility] Comment on above: Order Comment: REDRA W. PREVIOUS SPECIMEN REJECTED DUE TONOT RECEIVED IN LAB W/IN 15MIN. 03/19/24 1149 Rivka CY Result Comment: Crit ical Result(s) Called at: 12:58:50 03/19/2024 by: Bonilla Camarena to Lindsay Oliver. Results read back by same. Performed By: #### L 503.6005 ####[facility] [address] [place], [address] M100.678on 03-19-2024 M100.678 Pending SARS-CoV-2 (COVID 19) Negative INFLUENZA A Negative INFLUENZA B Negative RSV PCR Negative Normal [facility] Comment on above: Performed By: #### M 100.678, L400.0001, M100.2200 ####[facility] [address] [place], [address] Partial Thromboplast Timeon 03-19-2024 aPTT Coag (Bld) [Time] 24.5 s Normal 24.1-36.2 [facility] Comment on above: Performed By: #### L 503.6005 #### [facility] [address] [place], [address] Prothrombin Time w/INRon INR Coag (PPP) [Relative time] 1.0 {INR} Normal [facility] Comment on above: Performed By: #### L 503.6005 #### [facility] [address] [place], [address] PT Coag (PPP) [Time] 13.7 s Normal 11.7-14.9 [facility] Comment on above: Performed By: #### L 503.6005 #### [facility] [address] [place], [address] Basic Metabolic Profile (BMP )on 03-09-2024 BUN/CRE 27.3 RATIO High 10-20 [facility] Comment on above: Performed By: #### L 503.6005 #### [facility] [address] [place], [address] CA,Total 8.9 mg/dL Normal 8.5-10.1 [facility] Comment on above: Performed By: #### L 503.6005 #### [facility] [address] [place], [address] Chloride [Moles/Vol] 110 mmol/L High 98-107 [facility] Comment on above: Performed By: #### L 503.6005 #### [facility] [address] [place], [address] CO2 [Moles/Vol] 26.0 mmol/L Normal 21.0-32.0 [facility] Comment on above: Performed By: #### L 503.6005 #### [facility] [address] [place], [address] Creatinine [Mass/Vol] 1.43 mg/dL High 0.70-1.30 [facility] Comment on above: Result Comment: The validity of the calculated GFR GFRAA in patients over 70 years has not been determined. Clinical correlation is essential. Performed By: #### L 503.6005 #### [facility] [address] [place], [address] ECRCL 44.63 ml/min Normal [facility] Comment on above: Performed By: #### L 503.6005 #### [facility] [address] [place], [address] EST GFR - AA 62 mL/min Normal >60 [facility] Comment on above: Result Comment: Afri can [place] GFR Calc Performed By: #### L 503.6005 #### [facility] [address] [place], [address] GAP 4 Low 5-15 [facility] Comment on above: Performed By: #### L 503.6005 #### [facility] [address] [place], [address] GFR/1.73 sq M.predicted among non-blacks MDRD (S/P/Bld) [Vol rate/Area] 51 mL/min/{1.73_m2} Low >60 [facility] Comment on above: Result Comment: Non- GFR Calc Performed By: #### L 503.6005 #### [facility] [address] [place], [address] Glucose [Mass/Vol] 134 mg/dL High 74-106 [facility] Comment on above: Result Comment: Fast ing Glucose result greater than or equal to 126 mg/dL suggests DIABETES MELLITUS per A.D.A. criteria. Performed By: #### L 503.6005 #### [facility] [address] [place], [address] Potassium [Moles/Vol] 4.1 mmol/L Normal 3.5-5.1 [facility] Comment on above: Performed By: #### L 503.6005 #### [facility] [address] [place], [address] Sodium [Moles/Vol] 140 mmol/L Normal 136-145 [facility] Comment on above: Performed By: #### L 503.6005 #### [facility] [address] [place], [address] Urea nitrogen [Mass/Vol] 39 mg/dL High 7-18 [facility] Comment on above: Performed By: #### L 503.6005 #### [facility] [address] [place], [address] CBC W/Diff, Automatedon 01-0 -2024 Absolute Lymph 2.98 X10 3/uL Normal 0.83-4.51 [facility] Comment on above: Performed By: #### L 503.6005 #### [facility] [address] [place], [address] Absolute Neut 9.9 X10 3/uL High 2.0-7.7 [facility] Comment on above: Performed By: #### L 503.6005 #### [facility] [address] [place], [address] Basophils/100 WBC (Bld) 0.5 % Normal 0-1 [facility] Comment on above: Performed By: #### L 503.6005 #### [facility] [address] [place], [address] Eosinophils/100 WBC (Bld) 2.1 % Normal 0-5 [facility] Comment on above: Performed By: #### L 503.6005 #### [facility] [address] [place], [address] Erythrocyte distribution width (RBC) [Ratio] 12.6 % Normal 11.6-14.6 [facility] Comment on above: Performed By: #### L 503.6005 #### [facility] [address] [place], [address] Hematocrit (Bld) [Volume fraction] 44.4 % Normal 40-54 [facility] Comment on above: Performed By: #### L 503.6005 #### [facility] [address] [place], [address] Hemoglobin (Bld) [Mass/Vol] 14.9 g/dL Normal 13.0-16.5 [facility] Comment on above: Performed By: #### L 503.6005 #### [facility] [address] [place], [address] IG% 1.000 High 0.0-0.9 [facility] Comment on above: Result Comment: IG% - Immature Granulocytes (promyelocytes, myelocytes and metamyelocytes) > 1% indicates that a LEFT SHIFT is Present. Performed By: #### L 503.6005 #### [facility] [address] [facility] [place], [address] Lymphocytes/100 WBC (Bld) 20.5 % Normal 19-41 [facility] Comment on above: Performed By: #### L 503.6005 #### [facility] [address] [facility] [place], [address] MCH (RBC) [Entitic mass] 30.2 pg Normal 27.0-32.0 [facility] Comment on above: Performed By: #### L 503.6005 #### [facility] [address] [place], [address] MCHC (RBC) [Mass/Vol] 33.6 g/dL Normal 32-36 [facility] Comment on above: Performed By: #### L 503.6005 #### [facility] [address] [place], [address] MCV (RBC) [Entitic vol] 90.1 fL Normal 80-94 [facility] Comment on above: Performed By: #### L 503.6005 #### [facility] [address] [place], [address] Monocytes/100 WBC (Bld) 7.8 % Normal 0-10 [facility] Comment on above: Performed By: #### L 503.6005 #### [facility] [address] [place], [address] Neutrophils/100 WBC (Bld) 68.1 % Normal 47-70 [facility] Comment on above: Performed By: #### L 503.6005 #### [facility] [address] [place], [address] Nucleated RBC (Bld) [#/Vol] 0 10*3/uL Normal 0-5 [facility] Comment on above: Performed By: #### L 503.6005 #### [facility] [address] [place], [address] Platelet mean volume (Bld) [Entitic vol] 10.2 fL Normal 6.2-12.0 [facility] Comment on above: Performed By: #### L 503.6005 #### [facility] [address] [place], [address] Platelets (Bld) [#/Vol] 218 10*3/uL Normal 150-450 [facility] Comment on above: Performed By: #### L 503.6005 #### [facility] [address] [place], [address] RBC (Bld) [#/Vol] 4.93 10*6/uL Normal 4.6-6.2 [facility] Comment on above: Performed By: #### L 503.6005 #### [facility] [address] [place], [address] RDW SD 41.5 fl Normal 35.1-43.9 [facility] Comment on above: Performed By: #### L 503.6005 #### [facility] [address], [address] WBC (Bld) [#/Vol] 14.6 10*3/uL High 4.4-11.0 [facility] Comment on above: Performed By: #### L 503.6005 #### [facility] [address] [place], [address] Chest 1 View (Portable)on Chest 1 View (Portable) [facility] Imaging Services [address] [place], [place] [address] Chest 1 View (Portable) MR#: [id number] Acct: [id number] Name: ALLAN LARA Rep #: [id number] : 1950 M 73 From: Rudi Loya PCP: Dr. Simone Messer MD Status: PRE ER Study: Chest 1 View (Portable) Date of Exam: 03/09/24 Exam# [id number] Ordering Dr: Jose Taveras DO [id number] INDICATION: cough EXAMINATION/TECHNIQU E: X-RAY - XR Chest 1 View COMPARISON: 07/04/2022 ____ FINDINGS: LIFE-SUPPORT AND LINES: 1. None HEART AND VESSELS: The cardiac silhouette, pulmonary vasculature have normal appearance. No evidence of congestive failure. LUNGS AND PLEURAL SPACES: There is shallow inspiration crowding of bronchovascular markings however retrocardiac LEFT lower lobe infiltrate is noted. Remaining lung zones clear. No pulmonary mass is noted. MEDIASTINUM AND HILAR REGIONS: No masses adenopathy noted. No areas of calcification. Visualized upper airway is normal in position. BONY ELEMENTS: No acute bony changes noted. RAD/Chest 1 View (Portable) IMPRESSION: 1. Retrocardiac LEFT lower lobe infiltrate. 2. No evidence of congestive failure. Electronically Signed: Rudi Amaya MD at 23:39 EST , CC: Dr. Simone Messer MD; Jose Taveras DO Electrician'S Assistant: Signed Normal [facility] Emergency Department Summary on 03-09-2024 Emergency Department Summary [facility] Medical Records Department [address] [place] [address] Emergency Department Summary 03/09/24 MR#: [id number] Acct: [id number] Name: ALLAN LARA Rep #: [id number] : 1950 73 From: Jose Taveras DO PCP: Dr. Simone Messer MD Status:REG ER Location: ED HPI History of Present Illness Chief Complaint: Mental Status Change Informant: SN[facility] Narrative Narrative: Patient is a 73-year-old male with past medical history of hypothyroidism schizoaffective disorder delusional disorder and BPH who is typically alert and oriented to person only. Reportedly retirement where he stays felt that he was displaying increased weakness this evening and they reported that his vitals were abnormal and with this that he was sent in for evaluation. 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 Depression Diabetic myelopathy due to secondary diabetes mellitus Diabetes Diabetes mellitus, type II Hypertension Home Medications ???Medication ???Instructions ???Recorded ???Last Taken ???Type amlodipine 10 mg tablet 10 mg PO QHS BP 07/30/17 07/11/19 History levothyroxine 25 mcg tablet 50 mcg PO DAILY THYROID 07/30/17 07/11/19 History tamsulosin 0.4 mg capsule 0.4 mg PO QHS PROSTATE 07/30/17 07/11/19 History atorvastatin 10 mg tablet 10 mg PO QHS 07/04/22 Unknown History cholecalciferol (vitamin D3) 125 125 mcg PO DAILY 07/04/22 Unknown History mcg (5,000 unit) tablet (Vitamin D3) clozapine 100 mg tablet 100 mg PO DAILY 07/04/22 Unknown History clozapine 200 mg tablet 200 mg PO QHS 07/04/22 Unknown History fluoxetine 10 mg capsule (Prozac) 10 mg PO DAILY 07/04/22 Unknown History ipratropium 0.5 mg-albuterol 3 mg 3 ml inhalation Q4H PRN PRN 07/04/22 Unknown History (2.5 mg base)/3 mL nebulization Wheezing soln omeprazole 20 mg capsule,delayed 20 mg PO DAILY 07/04/22 Unknown History release ciprofloxacin HCl 500 mg tablet 500 mg PO BID #10 tabs 07/06/22 Unknown Rx metronidazole 500 mg tablet 500 mg PO BID #10 tabs 07/06/22 Unknown Rx levofloxacin 500 mg tablet 500 mg PO DAILY #7 tabs 03/10/24 Unknown Rx Allergy/AdvReac Type Severity Reaction Status Date / Time No Known Allergies Allergy Verified 03/09/24 22:47 Social History Smoking Status: Never smoker ROS ROS ED ROS Narrative Unable to obtain review of systems secondary to patient's history of dementia Review of Systems ROS Unobtainable: due to mental status EXAM Physical Exam Const Vital Signs: 03/09/24 22:48 03/09/24 22:52 Temperature 97.7 F L 97.9 F Temperature Source Axillary Axillary Pulse Rate 80 80 Respiratory Rate 16 21 H Blood Pressure 117/68 117/68 Blood Pressure Mean 84 84 Pulse Ox 93 93 Oxygen Delivery Method Room Air Room Air Positive well nourished and well developed General Appearance ED: well developed; Negative for pallor HEENT HEENT Narrative: Please mucous membranes are mildly dry and tacky No tongue or lip swelling no oral lesions no airway edema or compromise No secondary findings in the posterior pharynx to suggest infection Eyes PERRL and EOMs intact bilaterally General Eye ED: Negative for scleral icterus Neck supple Neck Narrative: No nuchal rigidity or meningeal signs Chest Wall palpation of chest normal Resp normal respiratory effort and clear to auscultation bilaterally Resp Narrative: No nasal flaring retractions tachypnea or accessory muscle use Cardio regular rate and regular rhythm GI normal to inspection, nondistended, normoactive bowel sounds, non-tender, non-distended and no masses GI Narrative: No pulsatile mass or fluid wave Auscultation: normoactive bowel sounds Palpation: soft Extremity normal to inspection Neuro Neuro Narrative: GCS of 14; patient has eyes closed but will open them to voice Patient is at his baseline mental status which is alert and oriented person only No obvious focal neurologic deficit Skin no rashes or lesions noted and no wounds General Skin Exam: Negative for pallor MDM MDM MDM Narrative Medical decision making narrative: Patient arrived to the ER at his baseline mental status. [facility] reported that his vitals were deranged with low room air p (more content not included)... Normal [facility] Liver Profileon 03-09-2024 Albumin [Mass/Vol] 3.3 g/dL Normal 3.2-5.0 [facility] Comment on above: Performed By: #### L 400.0001 #### [facility] [address] [place], [address] ALK P 73 U/L Normal 45-117 [facility] Comment on above: Performed By: #### L [id number] #### [facility] [address] [place], [address] ALT [Catalytic activity/Vol] 12 U/L Low 16-61 [facility] Comment on above: Performed By: #### L [id number] #### [facility] [address] [place], [address] AST [Catalytic activity/Vol] 9 U/L Low 15-37 [facility] Comment on above: Performed By: #### L 400.0001 #### [facility] [address] [place], [address] Bilirubin [Mass/Vol] 0.60 mg/dL Normal 0.20-1.00 [facility] Comment on above: Result Comment: For patients on eltrombopag therapy, use of Dimension [place] TBIL is not recommended. Performed By: #### L [id number] #### [facility] [address] [facility] [place], [address] Bilirubin.direct [Mass/Vol] 0.21 mg/dL Normal 0.00-0.30 [facility] Comment on above: Performed By: #### L [id number] #### [facility] [address], [address] Globulin (S) [Mass/Vol] 3.8 g/dL Normal 2.2-4.2 [facility] Comment on above: Performed By: #### L [id number] #### [facility] [address] [facility] [place], [address] T PROT 7.1 g/dL Normal 6.4-8.2 [facility] Comment on above: Performed By: #### L 400.0001 #### [facility] [address] [place], [place] [address]. [place], [address] M100.678on 03-09-2024 M100.678 Pending SARS-CoV-2 (COVID 19) Negative INFLUENZA A Negative INFLUENZA B Negative RSV PCR Negative Normal [facility] Comment on above: Performed By: #### L 503.6005 #### [facility] [address] [facility] [place], [address] Thyroid Stim Hormone (TSH)on 03-09-2024 TSH 1.300 uIU/mL Normal 0.358-3.740 [facility] Comment on above: Performed By: #### L [id number] #### [facility] [address] [facility] [place], [address] Urinalysis, Completeon 03-09 BACTERIA 0 SEEN Normal None Seen [facility] Comment on above: Order Comment: NOEL CTOR TO SPECIFY Performed By: #### L 503.6005 #### [facility] [address] [place], [address] EPI,SQUAMOUS 0 SEEN Normal 0-5 [facility] Comment on above: Order Comment: COLLE CTOR TO SPECIFY Performed By: #### L 503.6005 #### [facility] [address] [place], [address] Mucus Ql (Urine sed) 0 SEEN Normal [facility] Comment on above: Order Comment: COLLE CTOR TO SPECIFY Performed By: #### L 503.6005 #### [facility] [address] [place], [address] RBC 0 SEEN Normal 0-5 [facility] Comment on above: Order Comment: COLLE CTOR TO SPECIFY Performed By: #### L 503.6005 #### [facility] [address] [place], [address] WBC 0 SEEN Normal 0-5 [facility] Comment on above: Order Comment: COLLE CTOR TO SPECIFY Performed By: #### L 503.6005 #### [facility] [address] [place], [address] Basophil percentageOrdered B y: Simone Messer on 09-30-2022 Basophil percentage < 0.9 mg/dL 0.70-1.30 [facility] No Panel InformationOrdered By: Simone Messer on 09-30-2022 Bedside Estimated GFR (eGFR) > 60.0000 mL/min >60 [facility] Absolute lymphocyte countOrd ered By: Dr. Crawford on 07-06-2022 Lymphocytes Auto (Unsp spec) [#/Vol] 2.45 10*3/uL 0.83-4.51 [facility] Basophil percentageOrdered B y: Dr. Crawford on 07-06-2022 Basophils/100 WBC (Bld) 0.4 % 0-1 [facility] Chloride [Moles/Vol] 109 mmol/L 98-107 [facility] Eosinophils/100 WBC (Bld) 1.1 % 0-5 [facility] Glucose [Mass/Vol] 114 mg/dL 74-106 [facility] Comment on above: Fasting Glucose resu lt from 100 to 125 mg/dL suggests IMPAIRED HOMEOSTASIS per A.D.A. criteria. Neutrophils (Bld) [#/Vol] 15.6 10*3/uL 2.0-7.7 [facility] Neutrophils/100 WBC (Bld) 78.6 % 47-70 [facility] Potassium [Moles/Vol] 3.2 mmol/L 3.5-5.1 [facility] Sodium [Moles/Vol] 140 mmol/L 136-145 [facility] WBC (Bld) [#/Vol] 19.9 10*3/uL 4.4-11.0 [facility] Blood erythrocytes count (nu mber/volume)Ordered By: Dr. Crawford on 07-06-2022 RBC (Bld) [#/Vol] 4.27 10*6/uL 4.6-6.2 [facility] Blood hemoglobin measurement (mass/volume)Ordered By: Dr. Crawford on 07-06-2022 Hemoglobin (Bld) [Mass/Vol] 12.9 g/dL 13.0-16.5 [facility] Blood lymphocytes/100 leukoc ytesOrdered By: Dr. Crawford on 07-06-2022 Lymphocytes/100 WBC (Bld) 12.3 % 19-41 [facility] Blood monocytes/100 leukocyt esOrdered By: Dr. Crawford on 07-06-2022 Monocytes/100 WBC (Bld) 6.5 % 0-10 [facility] Blood platelet mean volumeOr dered By: Dr. Crawford on 07-06-2022 Platelet mean volume (Bld) [Entitic vol] 10.6 fL 6.2-12.0 [facility] Culture, urineOrdered By: Dr Reva Shaikh on 07-06-2022 Bacteria identified Cx Nom (U) Culture exhibits no growth. [facility] Determination of erythrocyte mean corpuscular volume (MCV)Ordered By: Dr. Crawford on 07-06-2022 MCV (RBC) [Entitic vol] 92.0 fL 80-94 [facility] Hematocrit Auto (Bld) [Volum e fraction]Ordered By: Dr. Crawford on 07-06-2022 Hematocrit (Bld) [Volume fraction] 39.3 % 40-54 [facility] - Chemistry and C hemistry - challengeOrdered By: Dr. Crawford on 07-06-2022 CO2 [Moles/Vol] 25.0 mmol/L 21.0-32.0 [facility] Urea nitrogen/Creatinine [Mass ratio] 12.2 mg/mg 10-20 [facility] - Hematology and Cell countsOrdered By: Dr. Crawford on 07-06-2022 Erythrocyte distribution width (RBC) [Entitic vol] 42.5 fL 35.1-43.9 [facility] Erythrocyte distribution width (RBC) [Ratio] 12.8 % 11.6-14.6 [facility] Immature granulocytes/100 WBC (Bld) 1.100 % 0.0-0.9 [facility] Comment on above: IG% - Immature Granu locytes (promyelocytes, myelocytes and metamyelocytes) > 1% indicates that a LEFT SHIFT is Present. MCH (RBC) [Entitic mass] 30.2 pg 27.0-32.0 [facility] Nucleated RBC/100 WBC (Bld) [Ratio] 0 % 0-5 [facility] MCHC Auto (RBC) [Mass/Vol]Or dered By: Dr. Crawford on 07-06-2022 MCHC (RBC) [Mass/Vol] 32.8 g/dL 32-36 [facility] No Panel InformationOrdered By: Dr. Crawford on 07-06-2022 Estimated Creatinine Clearance Calc 73.10 ml/min [facility] Estimated GFR (MDRD) Amer 106 mL/min >60 [facility] Comment on above: GFR Calc Estimated GFR (MDRD) Non-Af Amer 88 mL/min >60 [facility] Comment on above: Non- GFR Calc Platelets bldOrdered By: Dr. Crawford on 07-06-2022 Platelets (Bld) [#/Vol] 220 10*3/uL 150-450 [facility] Serum or plasma calcium vannessa urement (mass/volume)Ordered By: Dr. Crawford on 07-06-2022 Calcium [Mass/Vol] 8.4 mg/dL 8.5-10.1 [facility] Serum or plasma creatinine m easurement (mass/volume)Ordered By: Dr. Crawford on 07-06-2022 Creatinine [Mass/Vol] 0.90 mg/dL 0.70-1.30 [facility] Comment on above: The validity of the calculated GFR & GFRAA in patients over 70 years has not been determined. Clinical correlation is essential. Serum or plasma urea nitroge n measurement (mass/volume)Ordered By: Dr. Crawford on 07-06-2022 Urea nitrogen [Mass/Vol] 11 mg/dL 7-18 [facility] Thin prep Papanicolaou smear with manual screeningOrdered By: Dr. Crawford on 07-06-2022 Thin prep Papanicolaou smear with manual screening 6 5-15 [facility] No Panel InformationOrdered By: Dr. Verma on 07-05-2022 Atypical Lymphocytes 1+ % [facility] Review by pathologistOrdered By: Dr. Verma on 07-05-2022 Pathologist review Clemente (Unsp spec) [Interp] Reviewed [facility] Comment on above: Previous reported re sult: Lana medellin Edited by: INNA on 07/05/22:1302Neutrophilic leukocytosis.Clinical correlation necessary.Dawson Moreira M.D. 07/05/22 AMENDED REPORT 07/05/22 1302 PATH REV previously reported as: Lana medellin Absolute lymphocyte countOrd ered By: Dr. Shaikh on 07-04-2022 Lymphocytes Auto (Unsp spec) [#/Vol] 0.87 10*3/uL 0.83-4.51 [facility] Basophil percentageOrdered B y: Dr. Shaikh on 07-04-2022 Lactate [Moles/Vol] 3.1 mmol/L 0.4-2.0 [facility] Comment on above: Critical Result(s) C alled at: 08:44:55 07/04/2022 by: Selena Evans to [facility]. Results read back by same. Basophil percentage 0-5 SEEN /hpf 0-5 [facility] Basophils/100 WBC (Bld) 0.2 % 0-1 [facility] Bilirubin [Mass/Vol] 0.60 mg/dL 0.20-1.00 [facility] Comment on above: For patients on eltr ombopag therapy, use of Dimension [place] TBIL is not recommended. Chloride [Moles/Vol] 104 mmol/L 98-107 [facility] Eosinophils/100 WBC (Bld) 0.0 % 0-5 [facility] Glucose [Mass/Vol] 212 mg/dL 74-106 [facility] Comment on above: Glucose result great er than or equal to 200 mg/dLsuggests DIABETES MELLITUS per A.D.A. criteria. Lactate [Moles/Vol] 2.9 mmol/L 0.4-2.0 [facility] Comment on above: Critical Result(s) C alled at: 03:34:34 07/04/2022 by: Mohamud Dodd. CALLED TO [place] [id number] (ED) (RN) Results read back by same. Neutrophils (Bld) [#/Vol] 22.2 10*3/uL 2.0-7.7 [facility] Neutrophils/100 WBC (Bld) 91.2 % 47-70 [facility] Potassium [Moles/Vol] 4.6 mmol/L 3.5-5.1 [facility] Protein [Mass/Vol] 7.5 g/dL 6.4-8.2 [facility] Sodium [Moles/Vol] 140 mmol/L 136-145 [facility] WBC (Bld) [#/Vol] 24.4 10*3/uL 4.4-11.0 [facility] Bilirubin Test strip Ql (U)O rdered By: Dr. Shaikh on 07-04-2022 Bilirubin Ql (U) Negative Negative [facility] Blood erythrocytes count (nu mber/volume)Ordered By: Dr. Shaikh on 07-04-2022 RBC (Bld) [#/Vol] 5.39 10*6/uL 4.6-6.2 [facility] Blood hemoglobin measurement (mass/volume)Ordered By: Dr. Shaikh on 07-04-2022 Hemoglobin (Bld) [Mass/Vol] 15.9 g/dL 13.0-16.5 [facility] Blood lymphocytes/100 leukoc ytesOrdered By: Dr. Shaikh on 07-04-2022 Lymphocytes/100 WBC (Bld) 3.6 % 19-41 [facility] Blood monocytes/100 leukocyt esOrdered By: Dr. Shaikh on 07-04-2022 Monocytes/100 WBC (Bld) 3.7 % 0-10 [facility] Blood platelet mean volumeOr dered By: Dr. Shaikh on 07-04-2022 Platelet mean volume (Bld) [Entitic vol] 10.7 fL 6.2-12.0 [facility] Culture, urineOrdered By: Rodrigo Shaikh on 07-04-2022 Bacteria identified Cx Nom (U) Culture exhibits no growth. [facility] Determination of erythrocyte mean corpuscular volume (MCV)Ordered By: Dr. Shaikh on 07-04-2022 MCV (RBC) [Entitic vol] 91.8 fL 80-94 [facility] Hematocrit Auto (Bld) [Volum e fraction]Ordered By: Dr. Shaikh on 07-04-2022 Hematocrit (Bld) [Volume fraction] 49.5 % 40-54 [facility] Hyaline casts LM.LPF (Urine sed) [#/Area]Ordered By: Dr. Shaikh on 07-04-2022 Hyaline casts (Urine sed) [#/Area] 0 /[LPF] 0-5 [facility] INR in Blood by Coagulation assayOrdered By: Dr. Shaikh on 07-04-2022 INR Coag (Bld) [Relative time] 1.0 {INR} [facility] Ketones Test strip Ql (U)Ord ered By: Dr. Shaikh on 07-04-2022 Ketones Ql (U) Negative Negative [facility] - Chemistry and C hemistry - challengeOrdered By: Dr. Shaikh on 07-04-2022 ALP [Catalytic activity/Vol] 75 U/L 45-117 [facility] ALT [Catalytic activity/Vol] 20 U/L 16-61 [facility] CO2 [Moles/Vol] 27.0 mmol/L 21.0-32.0 [facility] Globulin (S) [Mass/Vol] 3.9 g/dL 2.2-4.2 [facility] Lipase [Catalytic activity/Vol] 37 U/L 13-75 [facility] Comment on above: Please note:LIPASE r evised reference range effective 22. New Lipase methodology. Expected to produce lower values than the previous assay method. NEW Reference Range: 13 - 75 U/L Urea nitrogen/Creatinine [Mass ratio] 12.0 mg/mg 10-20 [facility] - CoagulationOrde red By: Dr. Shaikh on 07-04-2022 aPTT Coag (Bld) [Time] 23.7 s 24.1-36.2 [facility] PT Coag (PPP) [Time] 12.8 s 11.7-14.9 [facility] - Hematology and Cell countsOrdered By: Dr. Shaikh on 07-04-2022 Erythrocyte distribution width (RBC) [Entitic vol] 42.8 fL 35.1-43.9 [facility] Erythrocyte distribution width (RBC) [Ratio] 12.8 % 11.6-14.6 [facility] Immature granulocytes/100 WBC (Bld) 1.300 % 0.0-0.9 [facility] Comment on above: IG% - Immature Granu locytes (promyelocytes, myelocytes and metamyelocytes) > 1% indicates that a LEFT SHIFT is Present. MCH (RBC) [Entitic mass] 29.5 pg 27.0-32.0 [facility] Nucleated RBC/100 WBC (Bld) [Ratio] 0 % 0-5 [facility] - Microbiology an d Antimicrobial susceptibilityOrdered By: Mati Shaikh on 07-04-2022 Bacteria identified Cx Nom (Bld) No growth in 5 days. [facility] MCHC Auto (RBC) [Mass/Vol]Or dered By: Dr. Shaikh on 07-04-2022 MCHC (RBC) [Mass/Vol] 32.1 g/dL 32-36 [facility] Mucus LM Ql (Urine sed)Order ed By: Dr. Shaikh on 07-04-2022 Mucus Ql (Urine sed) 0 SEEN /hpf [facility] Nitrite Test strip Ql (U)Ord ered By: Dr. Shaikh on 07-04-2022 Nitrite Ql (U) Negative Negative [facility] No Panel InformationOrdered By: Dr. Verma on 07-04-2022 Vitamin D 25-Hydroxy 85.4 ng/mL [facility] Comment on above: Vitamin D 25(OH) Sta tus Range Deficiency <20 ng/mL (50nmol/L) Insufficiency 20 - 30 ng/mL (50 - 75 nmol/L) Sufficiency 30 - 100 ng/mL (75 - 250 nmol/L) Toxicity >100 ng/mL (>250 nmol/L) No Panel InformationOrdered By: Dr. Shaikh on 07-04-2022 Estimated Creatinine Clearance Calc 34.45 ml/min [facility] Estimated GFR (MDRD) Amer 45 mL/min >60 [facility] Comment on above: GFR Calc Estimated GFR (MDRD) Non-Af Amer 37 mL/min >60 [facility] Comment on above: Non- GFR Calc Troponin I High Sensitivity 6 pg/mL 3.0-78.0 [facility] Comment on above: Please Note: New [place] t Units and Gender Specific Reference Ranges. For more information see Policy Stat Procedure [place] High Sensitivity Troponin (TNIH) and attachments. Platelets bldOrdered By: Dr. Shaikh on 07-04-2022 Platelets (Bld) [#/Vol] 356 10*3/uL 150-450 [facility] Protein Test strip Ql (U)Ord ered By: Dr. Shaikh on 07-04-2022 Protein Ql (U) 15 mg/dl Negative [facility] Serum or plasma albumin vannessa urement (mass/volume)Ordered By: Dr. Shaikh on 07-04-2022 Albumin [Mass/Vol] 3.6 g/dL 3.2-5.0 [facility] Serum or plasma albumin/glob ulin mass ratioOrdered By: Dr. Shaikh on 07-04-2022 Albumin/Globulin [Mass ratio] 0.9 {ratio} 0.9-2.4 [facility] Serum or plasma calcium vannessa urement (mass/volume)Ordered By: Dr. Shaikh on 07-04-2022 Calcium [Mass/Vol] 9.7 mg/dL 8.5-10.1 [facility] Serum or plasma creatinine m easurement (mass/volume)Ordered By: Dr. Shaikh on 07-04-2022 Creatinine [Mass/Vol] 1.91 mg/dL 0.70-1.30 [facility] Comment on above: The validity of the calculated GFR & GFRAA in patients over 70 years has not been determined. Clinical correlation is essential. Serum or plasma urea nitroge n measurement (mass/volume)Ordered By: Dr. Shaikh on 07-04-2022 Urea nitrogen [Mass/Vol] 23 mg/dL 7-18 [facility] Squamous epithelial cells de tection in urine sediment by light microscopyOrdered By: Dr. Shaikh on 07-04-2022 Epithelial cells.squamous LM Ql (Urine sed) 0 SEEN /hpf 0-5 [facility] Thin prep Papanicolaou smear with manual screeningOrdered By: Dr. Shaikh on 07-04-2022 Thin prep Papanicolaou smear with manual screening 13 U/L 15-37 [facility] Thin prep Papanicolaou smear with manual screening 9 5-15 [facility] Urine blood detectionOrdered By: Dr. Shaikh on 07-04-2022 RBC Ql (U) Negative Negative [facility] RBC Ql (U) 0 SEEN /hpf 0-5 [facility] Urine clarityOrdered By: Dr. Shaikh on 07-04-2022 Clarity (U) Clear Clear [facility] Urine color determinationOrd ered By: Dr. Shaikh on 07-04-2022 Color (U) Yellow Yellow [facility] Urine glucose detectionOrder ed By: Dr. Shaikh on 07-04-2022 Glucose Ql (U) Normal mg/dl Normal [facility] Urine leukocyte esterase det ection by dipstickOrdered By: Dr. Shaikh on 07-04-2022 Leukocyte esterase Test strip Ql (U) Negative Negative [facility] Urine pHOrdered By: Dr. Breanne rhodes on 07-04-2022 pH (U) 5.0 [pH] 5.0 - 8.0 [facility] Urine sediment bacteria coun t by microscopy (number/high power field)Ordered By: Dr. Shaikh on 07-04-2022 Bacteria LM.HPF (Urine sed) [#/Area] 1 /[HPF] None Seen [facility] Urine specific gravity measu rementOrdered By: Dr. Sahikh on 07-04-2022 Specific gravity (U) [Rel density] 1.015 1.002-1.030 [facility] Urobilinogen Auto test strip Ql (U)Ordered By: Dr. Shaikh on 07-04-2022 Urobilinogen Ql (U) 1 mg/dl Normal [facility] Whole blood hemoglobin A1c/t otal hemoglobin ratio (mass fraction)Ordered By: Dr. Verma on 07-04-2022 HbA1c (Bld) [Mass fraction] 5.8 % 3.8-5.6 [facility] Comment on above: Normal < 5.7 % Predi abetic 5.7 - 6.4 % Diabetic >or= 6.5 % Please note range changes. AUTO DIFFon 09-15-2021 Baso Count 0.04 x1000 Normal 0.00-0.20 [facility] Comment on above: Performed By: #### 1 [id number] #### [facility] [address] [place] [address] Audioprosthologist: Herb Quiroz MD Basos % 0.4 % Normal [facility] Comment on above: Performed By: #### 1 [id number] #### [facility] [address] [place] [address] Audioprosthologist: Herb Quiroz MD Eos Count 0.32 x1000 Normal 0.00-0.50 [facility] Comment on above: Performed By: #### 1 [id number] #### [facility] [address] [place], [place] [id number] Audioprosthologist: Herb Quiroz MD Eosinophils/100 WBC (Bld) 2.8 % Normal [facility] Comment on above: Performed By: #### 1 [id number] #### [facility] [address] [place] [address] Audioprosthologist: Herb Quiroz MD Lymph Count 2.13 x1000 Normal 1.20-4.80 [facility] Comment on above: Performed By: #### 1 [id number] #### [facility] [address] [place] [address] Audioprosthologist: Herb Quiroz MD Lymphocytes/100 WBC (Bld) 18.7 % Normal [facility] Comment on above: Performed By: #### 1 [id number] #### [facility] [address] [place] [address] Audioprosthologist: Herb Quiroz MD [place] Count 0.89 x1000 Normal 0.10-1.00 [facility] Comment on above: Performed By: #### 1 [id number] #### [facility] [address] [place] [address] Audioprosthologist: Herb Quiroz MD Monocytes/100 WBC (Bld) 7.8 % Normal [facility] Comment on above: Performed By: #### 1 [id number] #### [facility] [address] [place] [address] Audioprosthologist: Herb Quiroz MD Neutrophil Count (ANC) 8.03 x1000 Normal 1.40-8.80 [facility] Comment on above: Performed By: #### 1 [id number] #### [facility] [address] [place] [address] Audioprosthologist: Herb Quiroz MD Neutrophils/100 WBC (Bld) 70.3 % Normal [facility] Comment on above: Performed By: #### 1 [id number] #### [facility] [address] [place] [address] Audioprosthologist: Herb Quiroz MD [facility] 09-15-2021 Albumin/Globulin [Mass ratio] 1.1 {ratio} Normal [facility] Comment on above: Performed By: #### 1 [id number] #### [facility] [address] [place] [address] Audioprosthologist: Herb Quiroz MD GFR AA >60 Normal [facility] Comment on above: Result Comment: Afri can [place] GFR Calc Medical judgement is necessary to interpret GFR. The calculated GFR may not accurately reflect renal status in patients >70 years, women, acutely ill hospitalized patients and patients with acute renal failure or known renal disease. The MDRD GFR formula is valid only for adults greater than 18 years of age. Note: Creatinine clearance (not GFR) should be used for drug dosing. Performed By: #### 1 [id number] #### [facility] [address] [place] [address] Audioprosthologist: Herb Quiroz MD Glomerular Filtration Rate >60 Normal [facility] Comment on above: Result Comment: Non GFR Calc Medical judgement is necessary to interpret GFR. The calculated GFR may not accurately reflect renal status in patients >70 years, women, acutely ill hospitalized patients and patients with acute renal failure or known renal disease. The MDRD GFR formula is valid only for adults greater than 18 years of age. Note: Creatinine clearance (not GFR) should be used for drug dosing. Performed By: #### 1 [id number] #### [facility] [address] [place], [place] [id number] Audioprosthologist: Herb Quiroz MD Osmolality [Osmolality] 285 mosm/kg Normal 275-295 [facility] Comment on above: Performed By: #### 1 [id number] #### [facility] [address] [place], [place] [address] Audioprosthologist: Herb Quiroz MD Urea nitrogen/Creatinine [Mass ratio] 13.2 mg/mg Normal [facility] Comment on above: Performed By: #### 1 [id number] #### [facility] [address] [place], [place] [address] Audioprosthologist: Herb Quiroz MD Albumin [Mass/Vol] 3.2 g/dL Low 3.4-5.0 [facility] Comment on above: Performed By: #### 1 [id number] #### [facility] [address] [place], [place] [address] Audioprosthologist: Herb Quiroz MD Alk Phos 75 unit/L Normal 45-117 [facility] Comment on above: Performed By: #### 1 [id number] #### [facility] [address] [place], [place] [address] Audioprosthologist: Herb Quiroz MD Bilirubin [Mass/Vol] 0.26 mg/dL Normal 0.20-1.00 [facility] Comment on above: Result Comment: Use of this assay is not recommended for patients undergoing treatment with eltrombopag due to the potential for falsely elevated results. Performed By: #### 1 [id number] #### [facility] [address] [place] [address] Audioprosthologist: Herb Quiroz MD Calcium [Mass/Vol] 8.7 mg/dL Normal 8.5-10.5 [facility] Comment on above: Performed By: #### 1 [id number] #### [facility] [address] [place] [address]88 Audioprosthologist: Herb Quiroz MD Chloride [Moles/Vol] 110 mmol/L High 100-109 [facility] Comment on above: Performed By: #### 1 [id number] #### [facility] [address] [place] [address] 37897 Audioprosthologist: Herb Quiroz MD CO2 [Moles/Vol] 27.5 mmol/L Normal 21.0-32.0 [facility] Comment on above: Performed By: #### 1 [id number] #### [facility] [address] [place] [address]21 Audioprosthologist: Herb Quiroz MD Creatinine [Mass/Vol] 1.1 mg/dL Normal 0.7-1.3 [facility] Comment on above: Performed By: #### 1 [id number] #### [facility] [address] [place] [address]78 Audioprosthologist: Herb Quiroz MD Globulin (S) [Mass/Vol] 2.9 g/dL Normal [facility] Comment on above: Performed By: #### 1 [id number] #### [facility] [address] [place] [address]2005 Audioprosthologist: Herb Quiroz MD Glucose [Mass/Vol] 122 mg/dL High 72-100 [facility] Comment on above: Result Comment: Nori puncture should occur prior to sulfasalazine administration due to the potential for falsely depressed results. Venipuncture should occur prior to sulfapyridine administration due to the potential falsely elevated results. Baseline assay values before administration of sulfasalazine and sulfapyridine therapy would not be affected. Performed By: #### 1 [id number] #### [facility] [address] [place], [place] [id number] Audioprosthologist: Herb Quiroz MD GOT 7 unit/L Low 15-37 [facility] Comment on above: Result Comment: Nori puncture should occur prior to sulfasalazine and/or sulfapyridine administration due to the potential for falsely depressed results. Baseline assay values before administration of sulfasalazine and sulfapyridine therapy would not be affected. Performed By: #### 1 [id number] #### [facility] [place] [id number] Audioprosthologist: Herb Quiroz MD GPT 14 unit/L Low 16-61 [facility] Comment on above: Result Comment: Nori puncture should occur prior to sulfasalazine and/or sulfapyridine administration due to the potential for falsely depressed results. Baseline assay values before administration of sulfasalazine and sulfapyridine therapy would not be affected. Performed By: #### 1 [id number] #### [facility] [address] [place], [place] [id number] Audioprosthologist: Herb Quiroz MD Potassium [Moles/Vol] 4.0 mmol/L Normal 3.5-5.1 [facility] Comment on above: Performed By: #### 1 [id number] #### [facility] [address] [place], [place] [id number] Audioprosthologist: Herb Quiroz MD Protein [Mass/Vol] 6.1 g/dL Normal 6.0-8.5 [facility] Comment on above: Performed By: #### 1 [id number] #### [facility] [address] [place] [address] Audioprosthologist: Herb Quiroz MD Sodium [Moles/Vol] 142 mmol/L Normal 135-145 [facility] Comment on above: Performed By: #### 1 [id number] #### [facility] [address] [place], [place] [address] Audioprosthologist: Herb Quiroz MD Urea nitrogen [Mass/Vol] 15 mg/dL Normal 10-20 [facility] Comment on above: Performed By: #### 1 [id number] #### [facility] [address] [place] [address] Audioprosthologist: Herb Quiroz MD CT ABD PELVIS WO IV CONTRAST on 09-15-2021 CT ABD PELVIS WO IV CONTRAST EXAM: CT Abdomen and Pelvis Without Intravenous Contrast INDICATION: Abdominal tenderness TECHNIQUE: Axial computed tomography images of the abdomen and pelvis without intravenous contrast. Sagittal and coronal reformatted images were created and reviewed. This CT exam was performed using one or more of the following dose reduction techniques: automated exposure control, adjustment of the mA and/or kV according to patient size, and/or use of iterative reconstruction technique. COMPARISON: 04/08/2021 FINDINGS: LUNG BASES: Atelectatic changes are suspected overlying the small effusions. PLEURAL SPACE: Small bilateral pleural effusions. ABDOMEN: LIVER: Unremarkable. GALLBLADDER AND BILE DUCTS: Gallstones are present. PANCREAS: Unremarkable. SPLEEN: No splenomegaly. ADRENALS: Unremarkable. KIDNEYS AND URETERS: Multiple renal cysts are present bilaterally. The anterior right renal cyst which measures 3.9 cm was previously noted to not have enhancement. This is however not a simple fluid attenuation. A 1 year follow-up is recommended from the study dated 04/06/2021. There is a nonobstructing 5.7 mm right renal calculus. STOMACH AND BOWEL: No obstruction. No mucosal thickening. PELVIS: APPENDIX: No findings to suggest acute appendicitis. BLADDER: Unremarkable. REPRODUCTIVE: Normal-sized prostate. ABDOMEN and PELVIS: INTRAPERITONEAL SPACE: Unremarkable. 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 Mild degenerative changes of both hips. SOFT TISSUES: Unremarkable. VASCULATURE: No abdominal aortic aneurysm. LYMPH NODES: No lymphadenopathy. IMPRESSION: 1. Gallstones are present. 2. There is a nonobstructing 5.7 mm right renal calculus. Electronically signed by: Celestina Tejeda MD 09/15/2021 11:09 AM CDT Technologist: GISELLE,WCL,KAYDENF Dictated By: CELESTINA TEJEDA MD Signed By: CELESTINA TEJEDA MD Signed Out: 09/15/21 12:09:47 Normal [facility] ED Adult Data - Texton 09-15 ED Adult Data - Text ED Adult Data Entered On: 09/15/2021 11:10 EDT Performed On: 09/15/2021 10:50 EDT by Giovana Glover RN Arrival Information Information Given by : Patient Referral Source ED : Nursing Facility [facility] Mode of Arrival : Ambulance / PD Airway : Normal Breathing : Normal Circulation : Normal Giovana Glover RN - 09/15/2021 11:09 EDT Pre-arrival FCT FCT EKG : 12 Lead Giovana Glover RN - 09/15/2021 11:09 EDT Screening-General Meds Triage : Unknown Accept Blood Products if Necessary : Yes Immunizations Current : Unknown Last Tetanus : Unknown Status : N/A Preferred Verbal : Greek Giovana Glover RN - 09/15/2021 11:09 EDT Depression Screening Patient able to verbalize? : Yes Feeling Down, Depressed, Hopeless : Not at all Little Interest - Pleasure in Activities : Not at all Initial Depression Screen Score : 0 Depression Screening Score 0 : No IP Pt being evaluated or treated for BH conditions : No Giovana Glover RN - 09/15/2021 11:09 EDT Screening-Safety Abuse/Violence Concerns? : Patient denies Does the patient have a medically restricted extremity? : No Giovana Glover RN 09/15/2021 11:09 EDT Problem List Problem List obtained from : Patient Giovana Glover RN - 09/15/2021 11:09 EDT (As Of: 09/15/2021 11:10:25 EDT) Problems(Active) At risk for falls (SNOMED CT :096494456 ) Name of Problem: At risk for falls ; Recorder: SYSTEM; Confirmation: Confirmed ; Classification: Nursing ; Code: 622970125 ; Last Updated: 03/28/2020 15:22 EST ; Life Cycle Date: 03/28/2020 ; Life Cycle Status: Active ; Vocabulary: SNOMED CT ; Comments: 03/28/2020 15:22 - SYSTEM Problem added automatically by system based on documentation of a admission to the hospital. Auditory hallucinations (SNOMED CT :335407256 ) Name of Problem: Auditory hallucinations ; Recorder: Juliana Duke RN; Confirmation: Confirmed ; Classification: Medical ; Code: 791996014 ; Contributor System: PowerChart ; Last Updated: 03/28/2020 13:07 EST ; Life Cycle Date: 03/28/2020 ; Life Cycle Status: Active ; Vocabulary: SNOMED CT COVID-19 (SNOMED CT :0964216129 ) Name of Problem: COVID-19 ; Recorder: Juliana Duke RN; Confirmation: Confirmed ; Classification: Medical ; Code: 6246614513 ; Contributor System: PowerChart ; Last Updated: 03/28/2020 13:07 EST ; Life Cycle Date: 03/28/2020 ; Life Cycle Status: Active ; Vocabulary: SNOMED CT Dementia (SNOMED CT :18604894 ) Name of Problem: Dementia ; Recorder: Juliana Duke RN; Confirmation: Confirmed ; Classification: Medical ; Code: 85316267 ; Contributor System: PowerChart ; Last Updated: 03/28/2020 13:07 EST ; Life Cycle Date: 03/28/2020 ; Life Cycle Status: Active ; Vocabulary: SNOMED CT Diabetes mellitus (SNOMED CT :398564903 ) Name of Problem: Diabetes mellitus ; Recorder: Juliana Duke RN; Confirmation: Confirmed ; Classification: Medical ; Code: 978078987 ; Contributor System: PowerChart ; Last Updated: 03/28/2020 13:07 EST ; Life Cycle Date: 03/28/2020 ; Life Cycle Status: Active ; Vocabulary: SNOMED CT HTN (hypertension) (SNOMED CT :2896192441 ) Name of Problem: HTN (hypertension) ; Recorder: Juliana Duke RN; Confirmation: Confirmed ; Classification: Medical ; Code: 8403774890 ; Contributor System: PowerChart ; Last Updated: 03/28/2020 13:07 EST ; Life Cycle Date: 03/28/2020 ; Life Cycle Status: Active ; Vocabulary: SNOMED CT Hyperlipemia (SNOMED CT :03663425 ) Name of Problem: Hyperlipemia ; Recorder: Juliana Duke RN; Confirmation: Confirmed ; Classification: Medical ; Code: 11669924 ; Contributor System: PowerChart ; Last Updated: 03/28/2020 13:07 EST ; Life Cycle Date: 03/28/2020 ; Life Cycle Status: Active ; Vocabulary: SNOMED CT Kidney neoplasm (SNOMED CT :955410 ) Name of Problem: Kidney neoplasm ; Recorder: Juliana Dkue RN; Confirmation: Confirmed ; Classification: Medical ; Code: 138269 ; Contributor System: PowerChart ; Last Updated: 03/28/2020 13:06 EST ; Life Cycle Date: 03/28/2020 ; Life Cycle Status: Active ; Vocabulary: SNOMED CT Schizoaffective disorder (SNOMED CT :142125436 ) Name of Problem: Schizoaffective disorder ; Recorder: Juliana Duke RN; Confirmation: Confirmed ; Classification: Medical ; Code: 554363422 ; Contributor System: PowerChart ; Last Updated: 03/28/2020 13:06 EST ; Life Cycle Date: 03/28/2020 ; Life Cycle Status: Active ; Vocabulary: SNOMED CT Diagnoses(Active) Abdominal pain Date: 09/15/2021 ; Diagnosis Type: Reason For Visit ; Confirmation: Confirmed ; Clinical Dx: Abdominal pain ; Classification: Medical ; Clinical Service: Emergency medicine ; Code: PNED ; Probability: 0 ; Diagnosis Code: [id number] Nausea Date: 09/15/2021 ; Diagnosis Type: Reason For Visit ; Confirmation: Confirmed ; Clinical Dx: Nausea ; Classification: Medical ; Clinical Service: Emergency medicine ; Code: PNED ; Probability: 0 ; Diagnosis Code: [id number] eg Procedure History ED Devices Present on Arrival To E (more content not included)... Normal [facility] ED Discharge Educationon ED Discharge Education Gastrointestinal Abdominal Pain: Care Instructions Your Care Instructions Abdominal pain has many possible causes. Some aren't serious and get better on their own in a few days. Others need more testing and treatment. If your pain continues or gets worse, you need to be rechecked and may need more tests to find out what is wrong. You may need surgery to correct the problem. Don't ignore new symptoms, such as fever, nausea and vomiting, urination problems, pain that gets worse, and dizziness. These may be signs of a more serious problem. Your doctor may have recommended a follow-up visit in the next 8 to 12 hours. If you are not getting better, you may need more tests or treatment. The doctor has checked you carefully, but problems can develop later. If you notice any problems or new symptoms, get medical treatment right away. Follow-up care is a aleman part of your treatment and safety. Be sure to make and go to all appointments, and call your doctor if you are having problems. It's also a good idea to know your test results and keep a list of the medicines you take. How can you care for yourself at home? ? Rest until you feel better. ? To prevent dehydration, drink plenty of fluids, enough so that your urine is light yellow or clear like water. Choose water and other caffeine-free clear liquids until you feel better. If you have kidney, heart, or liver disease and have to limit fluids, talk with your doctor before you increase the amount of fluids you drink. ? If your stomach is upset, eat mild foods, such as rice, dry toast or crackers, bananas, and applesauce. Try eating several small meals instead of two or three large ones. ? Wait until 48 hours after all symptoms have gone away before you have spicy foods, alcohol, and drinks that contain caffeine. ? Do not eat foods that are high in fat. ? Avoid anti-inflammatory medicines such as aspirin, ibuprofen (Advil, Motrin), and naproxen (Aleve). These can cause stomach upset. Talk to your doctor if you take daily aspirin for another health problem. When should you call for help? Call 911 anytime you think you may need emergency care. For example, call if: ? You passed out (lost consciousness). ? You pass maroon or very bloody stools. ? You vomit blood or what looks like coffee grounds. ? You have new, severe belly pain. Call your doctor now or seek immediate medical care if: ? Your pain gets worse, especially if it becomes focused in one area of your belly. ? You have a new or higher fever. ? Your stools are black and look like tar, or they have streaks of blood. ? You have unexpected vaginal bleeding. ? You have symptoms of a urinary tract infection. These may include: ? Pain when you urinate. ? Urinating more often than usual. ? Blood in your urine. ? You are dizzy or lightheaded, or you feel like you may faint. Watch closely for changes in your health, and be sure to contact your doctor if: ? You are not getting better after 1 day (24 hours). Where can you learn more? Go to https://www.[employer].net/patientEd Enter E907 in the search box to learn more about Abdominal Pain: Care Instructions. Current as of: May 01, 2019 Content Version: 12.7 ? [employer]. Care instructions adapted under license by your healthcare professional. If you have questions about a medical condition or this instruction, always ask your healthcare professional. [employer] disclaims any warranty or liability for your use of this information. Normal [facility] ED Emergency Severity Index Adult-Texton 09-15-2021 ED Emergency Severity Index Adult-Text DENNIS - Adult Entered On: 09/15/2021 10:51 EDT Performed On: 09/15/2021 10:51 EDT by Giovana Glover RN DENNIS DENNIS Level 1 - Adult : No DENNIS Level 2 - Adult : No Resources DENNIS : Many Goivana lGover RN - 09/15/2021 10:51 EDT DCP GENERIC CODE Visit Reason : ABD PAIN DIRRHEA NAUSEA Tracking Triage Date/Time : 09/15/2021 10:51 EDT Tracking Reg Status : Requested Tracking Acuity : 3H-Urgent Tracking Group : [facility] Tracking Giovana Glover RN - 09/15/2021 10:51 EDT Recommended DENNIS Level : 3 Giovana Glover RN - 09/15/2021 10:51 EDT Normal [facility] ED Nrsing Adlt Triage Sep Sc rning - Texton 09-15-2021 ED Nrsing Adlt Triage Sep Scrning - Text ED Nursing Adult Triage Sepsis Screening Tool Entered On: 09/15/2021 11:08 EDT Performed On: 09/15/2021 10:55 EDT by Giovana Glover RN Adult Sepsis Screening Sepsis Infection Screening ED : Yes Sepsis Vitals Screening ED : RR > 20, Tachycardia > 90 bpm Sepsis Vital Sign Criteria ED : Yes Sepsis Interventions ED : Notify physician Giovana Glover RN - 09/15/2021 11:07 EDT Normal [facility] ED Patient Summaryon 022 ED Patient Summary [facility] Emergency Department Discharge Instructions [address] [place] [address] \\.br\\(Jamilahen t Copy)\\.br\\ \\.br\\Name: ALLAN LARA : 1950 \\.br\\Allergies: No Known Allergies\\.br\\Diagno sis: Diagnoses This Visit\\.br\\ Abdominal pain ([id number])\\. br\\ Abdominal pain, acute (R10.9)\\.br\\ Biliary colic (K80.50)\\.br\\ Nausea ([id number] aeg)\\.br\\\\.br\\\\.br\\ \\.br\\ Visit Date: 09/15/2021 10:50:23 \\.br\\ Current Date Time: 09/15/2021 14:10:50 \\.br\\Address: [address] [place] [address] \\.br\\ \\.br\\ \\.br\\Primary Care Provider: \\.br\\Name: CASE KAUFFMAN, JESSI H\\.br\\ \\.br\\ \\.br\\Emergency Department Care Providers: \\.br\\ Primary Physician: JUAN DANIEL HOFFMAN MD \\.br\\ \\.br\\ \\.br\\\\.br\\Thank you for choosing [facility] for your emergency care. You are very important to us. Our goal is to demonstrate our high quality medical care, and provide you with a very good patient experience.\\.br\\\\.br \\You may receive a survey about our service. Please take the time to complete the survey and return it so we can continue to enhance our service.\\.br\\\\.br\\Th ank you again for allowing the [facility] Emergency Department to care for your medical needs. If you have questions about your care or follow up information please contact us at [phone].\\.br\\\\. br\\ Follow-Up Instructions\\.br\\___ \\.br\\ALLAN LARA has been given these follow-up instructions:\\.br\\\\. br\\\\.br\\With: Address: When: \\.br\\VIKTORIYA BHATIA, General Surgery [address], [address] [place] [address]\\.br\\ Business (1) Within 3 to 5 days \\.br\\\\.br\\\\.br\\With: Address: When: \\.br\\JESSI AUSTIN, Internal Medicine [address], [address] [place] [address]\\.br\\ Business (1) Within 3 to 5 days \\.br\\\\.br\\\\.br\\\\.br\\ \\.br\\Patient Education Materials\\.br\\ __\\.br\\ALLAN LARA has been given the following patient education materials:\\.br\\\\.br\\ Abdominal Pain: Care Instructions\\.br\\You r Care Instructions\\.br\\\\.b r\\Abdominal pain has many possible causes. Some aren't serious and get better on their own in a few days. Others need more testing and treatment. If your pain continues or gets worse, you need to be rechecked and may need more tests to find out what is wrong. You may need surgery to correct the problem.\\.br\\Don't ignore new symptoms, such as fever, nausea and vomiting, urination problems, pain that gets worse, and dizziness. These may be signs of a more serious problem.\\.br\\Your doctor may have recommended a follow-up visit in the next 8 to 12 hours. If you are not getting better, you may need more tests or treatment.\\.br\\The doctor has checked you carefully, but problems can develop later. If you notice any problems or new symptoms, get medical treatment right away.\\.br\\Follow-up care is a aleman part of your treatment and safety. Be sure to make and go to all appointments, and call your doctor if you are having problems. It's also a good idea to know your test results and keep a list of the medicines you take.\\.br\\How can you care for yourself at home?\\.br\\? Rest until you feel better.\\.br\\? To prevent dehydration, drink plenty of fluids, enough so that your urine is light yellow or clear like water. Choose water and other caffeine-free clear liquids until you feel better. If you have kidney, heart, or liver disease and have to limit fluids, talk with your doctor before you increase the amount of fluids you drink.\\.br\\? If your stomach is upset, eat mild foods, such as rice, dry toast or crackers, bananas, and applesauce. Try eating several small meals instead of two or three large ones.\\.br\\? Wait until 48 hours after all symptoms have gone away before you have spicy foods, alcohol, and drinks that contain caffeine.\\.br\\? Do not eat foods that are high in fat.\\.br\\? Avoid anti-inflammatory medicines such as aspirin, ibuprofen (Advil, Motrin), and naproxen (Aleve). These can cause stomach upset. Talk to your doctor if you take daily aspirin for another health problem.\\.br\\When should you call for help?\\.br\\ Call 911 anytime you think you may need emergency care. For example, call if: \\.br\\ ? You passed out (lost consciousness). \\.br\\ ? You pass maroon or very bloody stools. \\.br\\ ? You vomit blood or what looks like coffee grounds. \\.br\\ ? You have new, severe belly pain. \\.br\\Call your doctor now or seek immediate medical care if:\\.br\\ ? Your pain gets worse, especially if it becomes focused in one area of your belly. \\.br\\ ? You have a new or higher fever. \\.br\\ ? Your stools are black and look like tar, or they have streaks of blood. \\.br\\ ? You have unexpected vaginal bleeding. \\.br\\ ? You have symptoms of a urinary tract infection. These may include: \\.br\\? Pain when you urinate.\\.br\\? Urinating more often than (more content not included)... Normal [facility] ED Physician Reporton 2021 ED Physician Report Patient: ALLAN LARA Age: 71 years Sex: Male : 1950 Associated Diagnoses: Abdominal pain, acute; Biliary colic Author: JUAN DANIEL HOFFMAN MD Basic Information Time seen: Time Seen: JUAN DANIEL HOFFMAN MD / 09/15/2021 10:53 . History source: Patient. History limitation: None. History of Present Illness 71-year-old male patient who presents to the ER with a chief complaint of epigastric abdominal pain. Onset 5 days ago. Scribes a sharp pain. Nonradiating. Provoked with palpation relieved rest. Associate with nausea. Currently 5 out of 10. Vomiting, fevers, chills, diarrhea, blood in stool, anorexia. Passing gas. Last BM was normal. No urinary symptoms. No discharge. No trauma. No recent travel. Review of Systems Constitutional symptoms: No fever, no chills. Skin symptoms: No jaundice, no rash. Eye symptoms: No pain, no icterus, no blurred vision. ENMT symptoms: No ear pain, no sore throat. Respiratory symptoms: No shortness of breath, no cough. Cardiovascular symptoms: No chest pain, no palpitations, no syncope, no diaphoresis. Gastrointestinal symptoms: Abdominal pain. Genitourinary symptoms: No dysuria, no hematuria, no discharge. Musculoskeletal symptoms: No back pain, Endocrine symptoms: No polyuria, no polydipsia. Neurologic symptoms No headache, no dizziness, no weakness. Health Status Allergies: Allergic Reactions (All) No Known Allergies. Past Medical/ Family/ Social History Medical history: No active or resolved past medical history items have been selected or recorded.. Surgical history: No active procedure history items have been selected or recorded.. Family history: No family history items have been selected or recorded.. Problem list: Active Problems (9) At risk for falls Auditory hallucinations COVID-19 Dementia Diabetes mellitus HTN (hypertension) Hyperlipemia Kidney neoplasm Schizoaffective disorder . Physical Examination General: Alert, no acute distress. Skin: Warm, dry, intact. Head: Normocephalic, atraumatic. Neck: Supple, no JVD. Eye: Pupils are equal, round and reactive to light, extraocular movements are intact, normal conjunctiva. Ears, nose, mouth and throat: Oral mucosa moist, no pharyngeal erythema or exudate. Cardiovascular: Regular rate and rhythm, Normal peripheral perfusion, No edema. Respiratory: Lungs are clear to auscultation, respirations are non-labored, breath sounds are equal. Chest wall: No tenderness. Back: Nontender. Musculoskeletal: Normal ROM, normal strength. Gastrointestinal: Tenderness: Mild, Guarding: Negative, Rebound: Negative. Psychiatric: Cooperative, appropriate mood & affect. Neurological Alert and oriented to person, place, time, and situation, No focal neurological deficit observed, normal speech observed. Medical Decision Making conveyor monitor: Time 09/15/2021 11:17:00, Rate 88, normal sinus rhythm. Electrocardiogram: Time 09/15/2021 10:46:00, rate 94, normal sinus rhythm, No ST-T changes, no ectopy, normal W[place] & QRS intervals. Last 24 Hours Chemistry BUN 15 mg/dL 09/15/21 Na 142 mmol/L 09/15/21 K 4.0 mmol/L 09/15/21 Chloride 110 mmol/L 09/15/21 CO2, venous 27.5 mmol/L 09/15/21 Creatinine 1.1 mg/dL 09/15/21 Total Protein 6.1 g/dL 09/15/21 Calcium 8.7 mg/dL 09/15/21 Bilirubin, Total 0.26 mg/dL 09/15/21 Alk Phos 75 unit/L 09/15/21 GOT 7 unit/L 09/15/21 GPT 14 unit/L 09/15/21 BUN/Creat Ratio 13.2 09/15/21 Calculated Osmolality 285 mOsm/kg 09/15/21 Globulin 2.9 g/dL 09/15/21 A/G Ratio 1.1 09/15/21 LACTATE 1.3 mmol/L 09/15/21 ALB 3.2 g/dL 09/15/21 Glomerular Filtration Rate >60 mL/min/1.73m? 09/15/21 Glucose 122 mg/dL 09/15/21 Lipase 115 unit/L 09/15/21 GFR AA >60 09/15/21 Estimated Creatinine Clearance 57.86 mL/min 09/15/21 Troponin HS 0 Hr 4 pg/mL 09/15/21 Hematology WBC 11.4 x106/uL 09/15/21 \\.br\\HGB 13.9 g/dL 09/15/21 \\.br\\HCT 41.0 % 09/15/21 \\.br\\MCV 87.8 fL 09/15/21 \\.br\\MCH 29.7 pg 09/15/21 \\.br\\MCHC 33.9 g/dL 09/15/21 \\.br\\RDW 14.6 % 09/15/21 \\.br\\Platelet 194 x103/uL 09/15/21 \\.br\\MPV 8.2 fL 09/15/21 \\.br\\Lymph % 18.7 % 09/15/21 \\.br\\[place] % 7.8 % 09/15/21 \\.br\\Neutrophil % 70.3 % 09/15/21 \\.br\\Eosin % 2.8 % 09/15/21 \\.br\\Basos % 0.4 % 09/15/21 \\.br\\Lymph Count 2.13 x1000 09/15/21 \\.br\\[place] Count 0.89 x1000 09/15/21 \\.br\\Neutrophil Count (ANC) 8.03 x1000 09/15/21 \\.br\\Eos Count 0.32 x1000 09/15/21 \\.br\\Baso Count 0.04 x1000 09/15/21 \\.br\\Nucleated RBC 0 /100WBC 09/15/21 \\.br\\MDW 17.83 09/15/21 \\.br\\\\.br\\\\.br\\CT ABD PELVIS WO CONTRAST\\.br\\ \\.br\\09/15/21 10:58:00\\.br\\EXAM:\\. br\\CT Abdomen and Pelvis Without Intravenous Contrast\\.br\\\\.br\\IN DICATION:\\.br\\Abdomi nal tenderness\\.br\\\\.br\\ TECHNIQUE:\\.br\\Axial computed tomography images of the abdomen and pelvis without intravenous contrast. Sagittal and coronal reformatted images were created and reviewed. This CT exam was performed using one or more of the following dose r (more content not included)... Normal [facility] ED Pre-Arrival Formon 2021 ED Pre-Arrival Form Pre-Arrival Summary Name: PHYSICIANS, Current Date: 09/15/2021 10:50:57 EDT Gender: Date of : Age: Pre-Arrival Type: EMS ETA: 09/15/2021 10:58:00 EDT Primary Care Physician: Presenting Problem: Pre-Arrival User: Logan Copeland Referring Source: Location: 1 [facility] Emergency Department [id number] [place] [address]. [place] [address] ____ Notes: Vital Signs: Doctor Call Back: DNR Status: Miscellaneous Issues: Normal [facility] ED Progress Noteon ED Progress Note Pt presented to the ED via ambulance from [facility] with c/o increased mid abdominal pain. Per Nurse at facility stated that patient has had issues with his abdomen off and on for a couple of months. Pt states that the pain worsened this morning. + nausea. Pt denies any vomiting, SOB, chest pain, fever, cough. Pt was supposed to have a consult today with GI/General surgery for possible gallbladder issues. + tenderness to palpation. Pt placed on cardiac sonographer. EKG was completed. IV was placed and labs were drawn. Dr Hoffman was at bedside. 1140- Pt in CT 1250- Physicians called for transport. - 90 minute ETA 1300- Report called to Nurse at [facility]. Nurse updated with patients return and results. Results and paperwork to be sent back with Physicians. 1340- Physicians here for transport. Paperwork given. Pt updated with treatment plan. Normal [facility] ED Triage Adult-Texton 09-15 ED Triage Adult-Text ED Triage Entered On: 09/15/2021 11:09 EDT Performed On: 09/15/2021 10:50 EDT by Giovana Glover RN Triage (As Of: 09/15/2021 11:09:04 EDT) Problems(Active) At risk for falls (SNOMED CT :234200914 ) Name of Problem: At risk for falls ; Recorder: SYSTEM; Confirmation: Confirmed ; Classification: Nursing ; Code: [id number] ; Last Updated: 03/28/2020 15:22 EST ; Life Cycle Date: 03/28/2020 ; Life Cycle Status: Active ; Vocabulary: SNOMED CT ; Comments: 03/28/2020 15:22 - SYSTEM Problem added automatically by system based on documentation of a admission to the hospital. Auditory hallucinations (SNOMED CT :264812845 ) Name of Problem: Auditory hallucinations ; Recorder: Juliana Duke RN; Confirmation: Confirmed ; Classification: Medical ; Code: 659274672 ; Contributor System: MotoratorChart ; Last Updated: 03/28/2020 13:07 EST ; Life Cycle Date: 03/28/2020 ; Life Cycle Status: Active ; Vocabulary: SNOMED CT COVID-19 (SNOMED CT :4928788725 ) Name of Problem: COVID-19 ; Recorder: Juliana Duke RN; Confirmation: Confirmed ; Classification: Medical ; Code: 2478952301 ; Contributor System: PowerChart ; Last Updated: 03/28/2020 13:07 EST ; Life Cycle Date: 03/28/2020 ; Life Cycle Status: Active ; Vocabulary: SNOMED CT Dementia (SNOMED CT :83533859 ) Name of Problem: Dementia ; Recorder: Juliana Duke RN; Confirmation: Confirmed ; Classification: Medical ; Code: 11031114 ; Contributor System: PowerChart ; Last Updated: 03/28/2020 13:07 EST ; Life Cycle Date: 03/28/2020 ; Life Cycle Status: Active ; Vocabulary: SNOMED CT Diabetes mellitus (SNOMED CT :128834441 ) Name of Problem: Diabetes mellitus ; Recorder: Juliana Duke RN; Confirmation: Confirmed ; Classification: Medical ; Code: 114933344 ; Contributor System: PowerChart ; Last Updated: 03/28/2020 13:07 EST ; Life Cycle Date: 03/28/2020 ; Life Cycle Status: Active ; Vocabulary: SNOMED CT HTN (hypertension) (SNOMED CT :7799128566 ) Name of Problem: HTN (hypertension) ; Recorder: Juliana Duke RN; Confirmation: Confirmed ; Classification: Medical ; Code: 3979105366 ; Contributor System: PowerChart ; Last Updated: 03/28/2020 13:07 EST ; Life Cycle Date: 03/28/2020 ; Life Cycle Status: Active ; Vocabulary: SNOMED CT Hyperlipemia (SNOMED CT :75509999 ) Name of Problem: Hyperlipemia ; Recorder: Juliana Duke RN; Confirmation: Confirmed ; Classification: Medical ; Code: 73068670 ; Contributor System: PowerChart ; Last Updated: 03/28/2020 13:07 EST ; Life Cycle Date: 03/28/2020 ; Life Cycle Status: Active ; Vocabulary: SNOMED CT Kidney neoplasm (SNOMED CT :387770 ) Name of Problem: Kidney neoplasm ; Recorder: Juliana Duke RN; Confirmation: Confirmed ; Classification: Medical ; Code: 689669 ; Contributor System: PowerChart ; Last Updated: 03/28/2020 13:06 EST ; Life Cycle Date: 03/28/2020 ; Life Cycle Status: Active ; Vocabulary: SNOMED CT Schizoaffective disorder (SNOMED CT :429077551 ) Name of Problem: Schizoaffective disorder ; Recorder: Juliana Duke RN; Confirmation: Confirmed ; Classification: Medical ; Code: 824440726 ; Contributor System: PowerChart ; Last Updated: 03/28/2020 13:06 EST ; Life Cycle Date: 03/28/2020 ; Life Cycle Status: Active ; Vocabulary: SNOMED CT Diagnoses(Active) Abdominal pain Date: 09/15/2021 ; Diagnosis Type: Reason For Visit ; Confirmation: Confirmed ; Clinical Dx: Abdominal pain ; Classification: Medical ; Clinical Service: Emergency medicine ; Code: PNED ; Probability: 0 ; Diagnosis Code: [id number] Nausea Date: 09/15/2021 ; Diagnosis Type: Reason For Visit ; Confirmation: Confirmed ; Clinical Dx: Nausea ; Classification: Medical ; Clinical Service: Emergency medicine ; Code: PNED ; Probability: 0 ; Diagnosis Code: [id number] (As Of: 09/15/2021 11:09:04 EDT) Allergies (Active) No Known Allergies Estimated Onset Date: Unspecified ; Created By: Mary Sierra RN; Reaction Status: Active ; Category: Drug ; Substance: No Known Allergies ; Type: Allergy ; Updated By: Mary Sierra RN; Reviewed Date: 09/15/2021 11:08 EDT Vitals/Ht/Wt Temperature Oral : 36.5 degC Pulse Rate : 94 bpm Respiratory Rate : 21 br/min (HI) Systolic Blood Pressure : 109 mmHg Diastolic Blood Pressure : 67 mmHg SpO2 : 93 % (LOW) Oxygen Therapy : Room air Pain Symptoms : Yes Numeric Pain Scale : 7 = Severe Pain VAS Pain Scale Age : VAS (8 yrs & older) Height/Length Dosing : 172.72 cm(Converted to: 5.67 ft, 68.00 in) Weight Measured Type of Scale : Bed Scale (digital) Weight Dosing : 70.4 kg(Converted to: 2,483.287 oz, 155.205 lb) Body Mass Index Dosing : 24 Giovana Glover RN - 09/15/2021 11:08 EDT Normal [facility] HEMOon 09-15-2021 DIFF? No Normal [facility] Comment on above: Performed By: #### 1 [id number] #### [facility] [address] [place], [place] [id number] Audioprosthologist: Herb Quiroz MD Erythrocyte distribution width (RBC) [Ratio] 14.6 % High 11.5-14.5 [facility] Comment on above: Performed By: #### 1 [id number] #### [facility] [address] [place] [address] Audioprosthologist: Herb Quiroz MD Hematocrit (Bld) [Volume fraction] 41.0 % Normal 41.0-52.0 [facility] Comment on above: Performed By: #### 1 [id number] #### [facility] [address] [place] [address] Audioprosthologist: Herb Quiroz MD Hemoglobin (Bld) [Mass/Vol] 13.9 g/dL Normal 13.5-17.5 [facility] Comment on above: Performed By: #### 1 [id number] #### [facility] [address] [place], [place] [address] Audioprosthologist: Herb Quiroz MD Instr WBC 11.4 Normal [facility] Comment on above: Performed By: #### 1 [id number] #### [facility] [address] [place], [place] [address] Audioprosthologist: Herb Quiroz MD MCH (RBC) [Entitic mass] 29.7 pg Normal 27.0-34.0 [facility] Comment on above: Performed By: #### 1 [id number] #### [facility] [address] [place], [place] [address] Audioprosthologist: Herb Quiroz MD MCHC (RBC) [Mass/Vol] 33.9 g/dL Normal 32.0-37.0 [facility] Comment on above: Performed By: #### 1 [id number] #### [facility] [address] [place], [place] [address] Audioprosthologist: Herb Quiroz MD MCV (RBC) [Entitic vol] 87.8 fL Normal 80.0-100.0 [facility] Comment on above: Performed By: #### 1 [id number] #### [facility] [address] [place] [address] Audioprosthologist: Herb Quiroz MD MDW 17.83 Normal 13.98-20.00 [facility] Comment on above: Result Comment: MDW Interpretation: ? For adults age 18-89 in ED, MDW >20.0 may be associated with a higher risk of Sepsis during the first 12 hours of hospital admission. ? The predictive value of MDW for identifying Sepsis in patients with hematological abnormalities has not been established. ? Interpret with caution when immature granulocytes, variant lymphs, or blast cells are noted on the differential. ? Confirm patient age is within intended use population (18-89 years) for MDW. ? For ED adults suspected of Sepsis, MDW less than or equal to 20.0 does not rule out Sepsis or the risk of Sepsis. Performed By: #### 1 [id number] #### [facility] [address] [place] [address] Audioprosthologist: Herb Quiroz MD Nucleated RBC 0 /100WBC Normal [facility] Comment on above: Performed By: #### 1 [id number] #### [facility] [address] [address] Audioprosthologist: Herb Quiroz MD Platelet 194 x10 Normal 150-450 [facility] Comment on above: Performed By: #### 1 [id number] #### [facility] [address] [place] [address] Audioprosthologist: Herb Quiroz MD Platelet mean volume (Bld) [Entitic vol] 8.2 fL Normal 7.4-10.4 [facility] Comment on above: Performed By: #### 1 [id number] #### [facility] [address] [place] [address] Audioprosthologist: Herb Quiroz MD RBC 4.66 x10 Low 4.70-6.10 [facility] Comment on above: Result Comment: Note : RBC morphology is normal unless otherwise stated. Evaluation performed only if differential is requested. Performed By: #### 1 [id number] #### [facility] [address] [place] [address] Audioprosthologist: Herb Quiroz MD WBC 11.4 x10 High 4.5-11.0 [facility] Comment on above: Performed By: #### 1 [id number] #### [facility] [address] [place] [address] Audioprosthologist: Herb Quiroz MD LACTATEon 09-15-2021 Lactate [Moles/Vol] 1.3 mmol/L Normal 0.4-2.0 [facility] Comment on above: Performed By: #### 9 [id number] #### [facility] [address] [place] [address] Audioprosthologist: Herb Quiroz MD LIPon 09-15-2021 Lipase [Catalytic activity/Vol] 115 U/L Normal 73-393 [facility] Comment on above: Performed By: #### 1 [id number] #### [facility] [address] [place] [id number] Audioprosthologist: Herb Quiroz MD TROPONIN HS 0HRon 09-15-2021 Troponin HS 0 Hr 4 pg/mL Normal 3-78 [facility] Comment on above: Performed By: #### 1 [id number] #### [facility] [address] [place] [address] Audioprosthologist: Herb Quiroz MD Office Visit (Urology)on Follow-up visit Diagnoses/Problems Assessed 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,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.1,N13.8) Renal mass, right (593.9) (N28.89) Bilateral renal cysts (753.10) (N28.1) Renal calculi (592.0) (N20.0) Orders Bilateral renal cysts, BPH with urinary obstruction, Renal calculi, Renal mass, right Cult, Urine; Status:Active; Requested for:10May2021; Perform:Lab Services - Lab To Draw (Non-Blood Test); Due:08Aug2021;Ordere d; For:Bilateral renal cysts, BPH with urinary obstruction, Renal calculi, Renal mass, right; Ordered By:Concetta Leon; Renal Function Panel; Status:Active; Requested for:10May2021; Perform:Lab Services - Lab To Draw (Blood Test); Due:08Aug2021;Ordere d; For:Bilateral renal cysts, BPH with urinary obstruction, Renal calculi, Renal mass, right; Ordered By:Concetta Leon; Ultrasound Kidney Bilateral; Status:Hold For - Scheduling; Requested for:10May2021; Perform:[facility] Imaging; Due:08Aug2021;Ordere d; For:Bilateral renal cysts, BPH with urinary obstruction, Renal calculi, Renal mass, right; Ordered By:Concetta Leon; Radiologist to Determine Optimal Study : Y Requesting physician's phone/pager number? : [phone] What are the patient's signs and symptoms? : large cystic renal lesion, renal calculi Urinalysis; Status:Active; Requested for:10May2021; Perform:Lab Services - Lab To Draw (Non-Blood Test); Due:08Aug2021;Ordere d; For:Bilateral renal cysts, BPH with urinary obstruction, Renal calculi, Renal mass, right; Ordered By:Concetta Leon; Patient Discussion/Summary renal calculi, renal mass, renal cysts (some complex) on noncontrasted imaging reviewed contrast CT scan of abdomen - cysts are complex Bosniak 2F and require monitoring recent renal ultrasound shows decrease in large cystic renal mass described above enlarged prostate with obstruction taking daily tamsulosin twice per day reviewed dietary modifications required to help prevent recurrent stone formation. 1. 2000mg sodium restriction and reviewed foods that are high in sodium and how to monitor sodium intake. 2. increased water intake (2-3L/day or 70-100 ounces/day) 3. oxalate restriction and reviewed the list of high oxalate foods (spinach, nuts, rhubarb, chocolate, etc.). 4. avoid high doses of vitamin C and should avoid drinking large amounts of orange juice. 5. Avoid dark marco that contain phosphoric acid. 6. Avoid dark tea is high in oxalate, and to avoid caffeinated beverages and chocolate. 7. increased intake of lemon/limes (4-6 ounces/day). 8. Patient should not restrict calcium intake. 9. Decrease amount of protein (mainly animal) in your diet (ideally, only one serving of meat/day). 10. avoid energy drinks. 11. no cranberry juice or supplements reviewed results showing no significant changes recommend returning in 6 months with labs, urine studies and renal ultrasound prior KAROLYN Rendon Line [phone] Office Line [phone] - use only for off hours or emergency contact fax [phone] Provider Impressions I spent 20 minutes with this patient greater than 50% of time was spent in counseling and coordination of care. See my assessment and plan for details Chief Complaint Renal Mass KAROLYN Rendon Line [phone] Office Line [phone] - use only for off hours or emergency contact History of Present Illnessincidental finding or renal mass has renal cysts and calculi enlarged prostate on tamsulosin resides in [facility] history of abn CT scan without contrast showin. Hyperattenuating mass in the upper pole of left kidney (1.6 cm x 1.2 cm; 77 HU) could represent a complicated/hemorrha gic cyst or solid papillary renal cell carcinoma. 2. Nonobstructing 5 mm right lower pole renal calculus. returns today with repeat imaging has no changes in voiding: on tamsulosin twice per day no gross hematuria, dysuria, urgency, Jaclyn or straining NTF x 1 BM adeq no pain appetite ok Past medical/surgical history At risk for falls Auditory hallucinations COVID-19 Dementia Diabetes mellitus HTN (hypertension) Hyperlipemia Kidney neoplasm Schizoaffective disorder Allergies - no known drug allergies Family History: Mother lung cancer daughter age 7, defects Social History resides in [facility] Prostate Symptom Score (I-PSS) I-PSS Total Score: 2 Quality of Life Score: 1 Review of Systems all other systems have been reviewed and are negative for complaint Constitutional: no fever, no chills and not feeling poorly. Eyes: no eyesight problems. ENT: no hearing loss, no nosebleeds and no sore throat. Cardiovascular: no chest pain, no palpitations and no extremity edema. Respiratory: no shortness of breath, no wheezing, no cough and no shortness of breath during exertion. Gastrointestinal: no abdominal pain, no constipation, no heartburn, no diarrhea, no vomiting and no blood in stools. Genitourinary: no d (more content not included)... Normal [facility] Radiologyon 04-28-2021 US Kidney - bilateral Normal [facility]- Urology-U [facility] Work Phone: US RENAL BILATon 04-28-2021 US RENAL BILAT Patient Name: ALLAN LARA STUDY: US RENAL BILAT; 04/28/2021 10:22 am INDICATION: Renal Cyst and Renal stones. COMPARISON: 09/03/2020. ACCESSION NUMBER(S): [id number] ORDERING CLINICIAN: CONCETTA LEON TECHNIQUE: Real-time sonographic evaluation of the kidneys and urinary bladder was performed. FINDINGS: RIGHT KIDNEY: Right kidney measures 10.9 cm. Right central renal small hyperechoic probable nonobstructing calculi are seen. No right hydronephrosis. There is a right renal mid aspect hypoechoic complex cystic lesion measuring 5 x 4.1 x 4.2 cm which contains a heterogeneously hypoechoic potentially solid nodule measuring 1.4 x 1.1 x 1.9 cm. There is also a right renal partially exophytic large cyst measuring 6.5 x 6.3 x 7.3 cm. LEFT KIDNEY: Left kidney measures 10.1 cm. No shadowing calculus or left hydronephrosis is visualized. There is a left renal upper pole hypoechoic cyst measuring 4.4 x 5.3 x 4.7 cm, possibly with some intrinsic debris. BLADDER: Urinary bladder was minimally distended limiting evaluation. Distended bladder has a calculated volume of 45 mL. Nonspecific mild bladder wall prominence may be exaggerated by underdistention. Prostate is partially visualized and appears to be enlarged measuring 4 x 3.3 x 4.6 cm (volume = 31.5 mL). IMPRESSION: Right renal mid aspect indeterminate complex cystic lesion measuring up to 5 cm in diameter, with a round solid-appearing approximate 1.9 cm intrinsic nodule. Cystic renal neoplasm cannot be excluded. Contrast enhanced dedicated renal CT or MRI may be considered for further characterization. Additional renal cysts including a left renal upper pole 5.3 cm cyst possibly containing some debris. No hydronephrosis bilaterally. Probable nonobstructing right renal calculi. Limited urinary bladder evaluation due to underdistention. Nonspecific mild urinary bladder wall prominence may be exaggerated by underdistention. Enlarged prostate. Electronically signed by: YAZAN MILES MD Normal [facility] CBC AND DIFFERENTIALon 04-22 % AUTOMATED IMMATURE GRAN 0.8 % Normal 0.0 - 0.9 [facility] Comment on above: Result Comment: Maryam ture Granulocyte Count (IG) includes promyelocytes, myelocytes and metamyelocytes but does not include bands. Percent differential counts (%) should be interpreted in the context of the absolute cell counts (cells/L). Performed By: #### C BCDF #### [address] [address] Basophils (Bld) [#/Vol] 0.08 10*3/uL Normal 0.00 - 0.1 0 [facility] Comment on above: Performed By: #### C BCDF #### [address] [address] Basophils/100 WBC (Bld) 0.7 % Normal 0.0 - 2.0 [facility] Comment on above: Performed By: #### C BCDF #### [address] [address] Eosinophils (Bld) [#/Vol] 0.24 10*3/uL Normal 0.00 - 0.40 [facility] Comment on above: Performed By: #### C BCDF #### [address] [address] Eosinophils/100 WBC (Bld) 2.0 % Normal 0.0 - 6.0 [facility] Comment on above: Performed By: #### C BCDF #### [address] [address] Erythrocyte distribution width (RBC) [Ratio] 13.2 % Normal 11.5 - 14.5 [facility] Comment on above: Performed By: #### C BCDF #### [address] [address] Hematocrit (Bld) [Volume fraction] 40.7 % Low 41.0 - 52.0 [facility] Comment on above: Performed By: #### C BCDF #### [address] [address] Hemoglobin (Bld) [Mass/Vol] 13.2 g/dL Low 13.5 - 17.5 [facility] Comment on above: Performed By: #### C BCDF #### [address] [address] Lymphocytes (Bld) [#/Vol] 2.95 10*3/uL Normal 0.80 - 3.00 [facility] Comment on above: Performed By: #### C BCDF #### [address] [address] Lymphocytes/100 WBC (Bld) 24.1 % Normal 13.0 - 44.0 [facility] Comment on above: Performed By: #### C BCDF #### [address] [address] MCHC (RBC) [Mass/Vol] 32.4 g/dL Normal 32.0 - 36.0 [facility] Comment on above: Performed By: #### C BCDF #### [address] [address] MCV (RBC) [Entitic vol] 90 fL Normal 80 - 100 [facility] Comment on above: Performed By: #### C BCDF #### [address] [address] Monocytes (Bld) [#/Vol] 1.05 10*3/uL High 0.05 - 0.8 0 [facility] Comment on above: Performed By: #### C BCDF #### [address] [address] Monocytes/100 WBC (Bld) 8.6 % Normal 2.0 - 10.0 [facility] Comment on above: Performed By: #### C BCDF #### [address] [address] Neutrophils (Bld) [#/Vol] 7.82 10*3/uL High 1.60 - 5.50 [facility] Comment on above: Performed By: #### C BCDF #### [address] [address] Neutrophils/100 WBC (Bld) 63.8 % Normal 40.0 - 80.0 [facility] Comment on above: Performed By: #### C BCDF #### [address] [address] NUCLEATED RBC 0.0 /100 WBC Normal 0.0 - 0.0 [facility] Comment on above: Performed By: #### C BCDF #### [facility] [address] [place] [address] Platelets (Bld) [#/Vol] 324 10*3/uL Normal 150 - 450 [facility] Comment on above: Performed By: #### C BCDF #### [facility] [address] [place] [address] RBC 4.52 x10E12/L Normal 4.50 - 5.90 [facility] Comment on above: Performed By: #### C BCDF #### [facility] [address] [place] [address] WBC (Bld) [#/Vol] 12.2 10*3/uL High 4.4 - 11.3 [facility] Comment on above: Performed By: #### C BCDF #### [facility] [address] [place] [address] COMPREHENSIVE PANELon 2021 Albumin [Mass/Vol] 3.5 g/dL Normal 3.4 - 5.0 [facility] Comment on above: Performed By: #### C MP #### [facility] [address] [place] [address] ALP [Catalytic activity/Vol] 62 U/L Normal 33 - 136 [facility] Comment on above: Performed By: #### C MP #### [facility] [address] [place] [address] ALT [Catalytic activity/Vol] 10 U/L Normal 10 - 52 [facility] Comment on above: Result Comment: Jamilah ents treated with Sulfasalazine may generate falsely decreased results for ALT. Performed By: #### C MP #### [facility] [address] [place] [address] Anion gap [Moles/Vol] 10 mmol/L Normal 10 - 20 [facility] Comment on above: Performed By: #### C MP #### [facility] [address] [place] [address] AST [Catalytic activity/Vol] 10 U/L Normal 9 - 39 [facility] Comment on above: Performed By: #### C MP #### [facility] [address] [place] [address] Bilirubin [Mass/Vol] 0.5 mg/dL Normal 0.0 - 1.2 [facility] Comment on above: Performed By: #### C MP #### [address] [address] Calcium [Mass/Vol] 8.6 mg/dL Normal 8.6 - 10.3 [facility] Comment on above: Performed By: #### C MP #### [address] [address] Chloride [Moles/Vol] 106 mmol/L Normal 98 - 107 [facility] Comment on above: Performed By: #### C MP #### [address] [address] Creatinine [Mass/Vol] 1.04 mg/dL Normal 0.50 - 1.30 [facility] Comment on above: Performed By: #### C MP #### [address] [address] GFR/1.73 sq M.predicted among non-blacks MDRD (S/P/Bld) [Vol rate/Area] 76 mL/min/{1.73_m2} Normal >90 [facility] Comment on above: Result Comment: CALC ULATIONS OF ESTIMATED GFR ARE PERFORMED USING THE 2020 CKD-EPI STUDY REFIT EQUATION WITHOUT THE RACE VARIABLE FOR THE IDMS-TRACEABLE CREATININE METHODS. https://jasn.asnjournals.org/content//ASN.621 8748013 Performed By: #### C MP #### [address] [address] Glucose [Mass/Vol] 98 mg/dL Normal 74 - 99 [facility] Comment on above: Performed By: #### C MP #### [address] [address] HCO3 (Bld) [Moles/Vol] 25 mmol/L Normal 21 - 32 [facility] Comment on above: Performed By: #### C MP #### [address] [address] Potassium [Moles/Vol] 4.2 mmol/L Normal 3.5 - 5.3 [facility] Comment on above: Performed By: #### C MP #### [facility] [address] [place] [address] Protein [Mass/Vol] 5.6 g/dL Low 6.4 - 8.2 [facility] Comment on above: Performed By: #### C MP #### [facility] [address] [place] [address] Sodium [Moles/Vol] 137 mmol/L Normal 136 - 145 [facility] Comment on above: Performed By: #### C MP #### [facility] [address] [place] [address], [place] [address] Urea nitrogen [Mass/Vol] 14 mg/dL Normal 6 - 23 [facility] Comment on above: Performed By: #### C MP #### [address] [place] [address] Complete Blood Count + Diffe rentialon 04-21-2021 Basophils/100 WBC (Bld) 0.7 % 0.0 - 2.0 M -Urology-U [facility] Work Phone: Erythrocyte distribution width (RBC) [Ratio] 13.2 % See Below IL[facility] Work Phone: Comment on above: Reference Range: 11. 5 - 14.5 Hematocrit (Bld) [Volume fraction] 40.7 % below low threshold See Below US[facility]nbkqtp[facility] Work Phone: Comment on above: Reference Range: 41. 0 - 52.0 Hemoglobin (Bld) [Mass/Vol] 13.2 g/dL below low threshold See Below ZO[facility]Jemcnjo[facility] Work Phone: Comment on above: Reference Range: 13. 5 - 17.5 Lymphocytes/100 WBC (Bld) 24.1 % See Below UH-Xofzpwc-R [facility] Work Phone: Comment on above: Reference Range: 13. 0 - 44.0 MCHC (RBC) [Mass/Vol] 32.4 g/dL See Below - Urology-U H [facility] Work Phone: Comment on above: Reference Range: 32. 0 - 36.0 MCV (RBC) [Entitic vol] 90 fL 80 - 100 M -Urology-U H [facility] Work Phone: Monocytes/100 WBC (Bld) 8.6 % 2.0 - 10.0 M -Urology-U H [facility] Work Phone: [phone] Neutrophils/100 WBC (Bld) 63.8 % See Below IG-Ghtkxto-N H [facility] Work Phone: Comment on above: Reference Range: 40. 0 - 80.0 Platelets (Bld) [#/Vol] 324 10*3/uL 150 - 450 RX-Csnqjaw-M H [facility] Work Phone: [phone] RBC (Bld) [#/Vol] 4.52 {x10E12/L} See Below MG -Urology-U H [facility] Work Phone: Comment on above: Reference Range: 4.5 0 - 5.90 WBC (Bld) [#/Vol] 12.2 10*3/uL above high threshold 4.4 - 11.3 UU-Wtdgrke-F H [facility] Work Phone: [phone] Complete Blood Count + Differential 0.08 {x10E9/L} See Below ZT-Grpyign-Y H [facility] Work Phone: Comment on above: Reference Range: 0.0 0 - 0.10 Complete Blood Count + Differential 0.24 {x10E9/L} See Below RL-Sisjafs-K H [facility] Work Phone: Comment on above: Reference Range: 0.0 0 - 0.40 Complete Blood Count + Differential 1.05 {x10E9/L} above high threshold See Below XH-Orgvosa-I H [facility] Work Phone: Comment on above: Reference Range: 0.0 5 - 0.80 Complete Blood Count + Differential 2.95 {x10E9/L} See Below FE-Zgqflry-Y H [facility] Work Phone: Comment on above: Reference Range: 0.8 0 - 3.00 Complete Blood Count + Differential 7.82 {x10E9/L} above high threshold See Below QS-Qnakweu-C H [facility] Work Phone: Comment on above: Reference Range: 1.6 0 - 5.50 Complete Blood Count + Differential 2.0 % 0.0 - 6.0 AY-Odanhhv-K H [facility] Work Phone: Complete Blood Count + Differential 0.8 % 0.0 - 0.9 UR-Nqfkdpb-P [facility] Work Phone: Comment on above: Immature Granulocyte Count (IG) includes promyelocytes, myelocytes and metamyelocytes but does not include bands. Percent differential counts (%) should be interpreted in the context of the absolute cell counts (cells/L). Complete Blood Count + Differential 0.0 {/100_WBC} 0.0 - 0.0 EI-Tumejmz-V [facility] Work Phone: Laboratory - Chemistry and C hemistry - challengeon 04-21-2021 Albumin BCP dye [Mass/Vol] 3.5 g/dL 3.4 - 5.0 GP-Lhagolw-L [facility] Work Phone: ALP [Catalytic activity/Vol] 62 U/L 33 - 136 [place]-Mjybccw-Y H [facility] Work Phone: ALT With P-5'-P [Catalytic activity/Vol] 10 U/L 10 - 52 MG-Urol ogy-U [facility] Work Phone: Comment on above: Patients treated wit h Sulfasalazine may generate falsely decreased results for ALT. Anion gap [Moles/Vol] 10 mmol/L 10 - 20 MG- Urology-U H [facility] Work Phone: AST With P-5'-P [Catalytic activity/Vol] 10 U/L 9 - 39 MG-Urol ogy-U [facility] Work Phone: Bilirubin [Mass/Vol] 0.5 mg/dL 0.0 - 1.2 MG-U rology-U [facility] Work Phone: Calcium [Mass/Vol] 8.6 mg/dL 8.6 - 10.3 MG-Uro logy-U [facility] Work Phone: Chloride [Moles/Vol] 106 mmol/L 98 - 107 MG-U rology-U [facility] Work Phone: CO2 [Moles/Vol] 25 mmol/L 21 - 32 MG-Urolog y-U [facility] Work Phone: Creatinine [Mass/Vol] 1.04 mg/dL See Below MG- Urology-U [facility] Work Phone: Comment on above: Reference Range: 0.5 0 - 1.30 Glucose [Mass/Vol] 98 mg/dL 74 - 99 MG-Uro logy-U [facility] Work Phone: Potassium [Moles/Vol] 4.2 mmol/L 3.5 - 5.3 MG- Urology-U [facility] Work Phone: Protein [Mass/Vol] 5.6 g/dL below low threshold 6.4 - 8.2 HU-Balhflf-B [facility] Work Phone: Sodium [Moles/Vol] 137 mmol/L 136 - 145 MG-Uro logy-U [facility] Work Phone: Urea nitrogen [Mass/Vol] 14 mg/dL 6 - 23 SH-Ywqqhcu-C [facility] Work Phone: No Panel Informationon 04-21 76 {mL/min/1.73m2} >90 MG-Uro logy-U H [facility] Work Phone: Comment on above: CALCULATIONS OF ESEQUIEL MATED GFR ARE PERFORMED USING THE 2020 CKD-EPI STUDY REFIT EQUATION WITHOUT THE RACE VARIABLE FOR THE IDMS-TRACEABLE CREATININE METHODS.https://jasn.asnjournals.org/content/ /ASN.4492054337 C BLOODon 04-10-2021 C BLOOD [facility] [address] [place] [id number] Name: ALLAN LARA : 1950 Admitting ANAIS GAMBOA DO Provider: Gender: Male [facility] [phone] Number: Location: 2DMO; D242; 01 Admit 04/05/2021 Date: Discharge 04/09/2021 Date: Microbiology PROCEDURE: C BLOOD SOURCE: Blood BODY SITE: COLLECTED DATE/TIME: 04/05/2021 04:03 EST RECEIVED DATE/TIME: 04/05/2021 04:08 EST START DATE/TIME: 04/05/2021 04:08 EST FREE TEXT SOURCE: ORDERING PHYSICIAN: ANAIS GAMBOA DO FINAL REPORTS Final Report [] Verified Date/Time: 04/10/2021 07:01 EST No growth after 5 days. L=Low, H= High, *= Abnormal, C=Critical, f=Footnote, c=Corrected, i=Interp Data Name: ALLAN LARA Print Date/ 04/10/2021 07:01 EST Time: Normal [facility] Comment on above: Performed By: #### 1 [id number] ####[facility] [address] [place] [address] Medical Director: Herb Quiroz MD C BLOOD [facility] Dept of Laboratory Services [address] [place] [phone] Name: ALLAN LARA : 1950 Admitting ANAIS GAMBOA DO Provider: Gender: Male [employer] [phone] Number: Location: 2DMO; D242; 01 Admit 04/05/2021 Date: Discharge 04/09/2021 Date: Microbiology PROCEDURE: C BLOOD SOURCE: Blood BODY SITE: COLLECTED DATE/TIME: 04/05/2021 03:58 EST RECEIVED DATE/TIME: 04/05/2021 04:08 EST START DATE/TIME: 04/05/2021 04:08 EST FREE TEXT SOURCE: ORDERING PHYSICIAN: ANAIS GAMBOA DO FINAL REPORTS Final Report [] Verified Date/Time: 04/10/2021 07:01 EST No growth after 5 days. L=Low, H= High, *= Abnormal, C=Critical, f=Footnote, c=Corrected, i=Interp Data Name: ALLAN LARA Print Date/ 04/10/2021 07:01 EST Time: Normal [facility] Comment on above: Performed By: #### 1 [id number] #### [facility] Laboratory Services [address] [place] [address] Audioprosthologist: Herb Quiroz MD Discharge Educationon 2021 Discharge Education Patient Education Material Normal [facility] Inpatient Patient Summaryon 04-10-2021 Inpatient Patient Summary [facility] Discharge Instructions [address] [place] [address], [place] [address] \\.br\\(Patient Copy)\\.br\\ \\.br\\ \\.br\\Name: ALLAN LARA : 1950 \\.br\\Diagnosis: Acute diarrhea; Acute renal failure (ARF); COVID-19; Dehydration; Dementia; Diabetes mellitus; HTN (hypertension); Hyperkalemia; Hyperlipemia; Kidney neoplasm; Severe sepsis; Tachycardia \\.br\\ \\.br\\Allergies: No Known Allergies\\.br\\ \\.br\\Registration Date: 04/05/21\\.br\\\\.br\\\\. br\\ \\.br\\ Current Date Time: 04/09/2021 22:50:09 \\.br\\ \\.br\\Address: [address] [place] [address] \\.br\\ \\.br\\ \\.br\\Primary Care Provider: \\.br\\Name: CASE KAUFFMAN, JESSI Cruz\\.br\\ \\.br\\ \\.br\\Thank you for choosing [facility] for your care. You are very important to us. Our goal is to demonstrate our high quality medical care and provide you with a very good patient experience.\\.br\\ You may receive a survey about our service. Please take the time to complete the survey and return it so we can continue to enhance our service.\\.br\\ Thank you again for allowing [facility] to care for your medical needs. If you have any questions about your care or follow up information please contact your doctor.\\.br\\\\.br\\Fol low-up Instructions\\.br\\\\.b r\\\\.br\\With: Address: When: \\.br\\Renal US to be done in 6 months \\.br\\\\.br\\\\.br\\With: Address: When: \\.br\\Cyril BARRIENTOS Physician (Medical) [address] [facility], [address] [place] [address]\\.br\\ Business (1) \\.br\\Comments: \\.br\\Please follow up in 2 months \\.br\\\\.br\\\\.br\\With: Address: When: \\.br\\JUAN KAPLAN, Urology [address] [place] [address]\\.br\\ Business (1) Within Call for Appointment \\.br\\Comments: \\.br\\Follow up for new Flomax prescription, romero while in the hospital for retention \\.br\\\\.br\\\\.br\\\\.br\\ \\.br\\\\.br\\Medication Information\\.br\\Only Take The Medicines On This List. \\.br\\Keep This List and Bring It To Your Next Appointment. \\.br\\Medicines To Take At Home: \\.br\\ Medicine Name\\.br\\ (Generic Name) Amount to Take How to Take it How Often to Take it Additional Instructions Next Dose Due \\.br\\ acetaminophen 325 mg oral tablet\\.br\\(acetamin ophen) 650 mg By Mouth EVERY SIX HOURS Take as needed for pain\\.br\\\\.br\\\\.br\\\\ .br\\\\.br\\\\.br\\ \\.br\\ albuterol-ipratropiu m 2.5 mg-0.5 mg/3 mL inhalation solution = DuoNeb\\.br\\(albutero l-ipratropium) 3 mL Inhalation EVERY FOUR HOURS RESPIRATORY Take as needed for Wheezing or Dyspnea\\.br\\\\.br\\\\.b r\\\\.br\\\\.br\\\\.br\\ \\.br\\ Norvasc 10 mg oral tablet\\.br\\(amlodipi ne) 10 mg By Mouth AT BEDTIME \\.br\\ Lipitor 10 mg oral tablet\\.br\\(atorvast atin) 10 mg By Mouth AT BEDTIME \\.br\\ Vitamin D3 5000 intl units (125 mcg) oral tablet\\.br\\(cholecal ciferol) 125 mcg By Mouth DAILY \\.br\\ cloZAPine 100 mg oral tablet\\.br\\(clozapin e) 100 mg By Mouth DAILY AM DOSE\\.br\\\\.br\\\\.br\\\\ .br\\ \\.br\\ cloZAPine 200 mg oral tablet\\.br\\(clozapin e) 200 mg By Mouth AT BEDTIME \\.br\\ Colace 100 mg oral capsule\\.br\\(docusat e) 100 mg By Mouth TWICE A DAY \\.br\\ Synthroid 50 mcg (0.05 mg) oral tablet\\.br\\(levothyr oxine) 50 mcg By Mouth DAILY \\.br\\ omeprazole 20 mg oral delayed release capsule\\.br\\(omepraz ole) 20 mg By Mouth AT BEDTIME \\.br\\ [place]pti 0.65% nasal spray\\.br\\(sodium chloride nasal) 2 sprays Intranasal FOUR TIMES A DAY Take as needed for Congestion\\.br\\\\.br\\ \\.br\\\\.br\\\\.br\\\\.br\\ \\.br\\ Flomax 0.4 mg oral capsule\\.br\\(tamsulo sin) 0.4 mg By Mouth TWICE A DAY \\.br\\\\.br\\Understand ing your home medicine is important to keeping you healthy. If you are taking medications that are not on the preceding list, please call your doctor to see if you are to continue taking that medication. It is important that you do not skip or make up doses. If you are ordered an antibiotic, finish taking all the medicine unless your doctor tells you otherwise. Call your doctor if you have any questions or problems. Take the medicine list with you to all follow up appointments.\\.br\\\\. br\\Patient education materials, if any, will display below\\.br\\\\.br\\ Prescription leaflets, if any, will display below\\.br\\ \\.br\\Guidelines for a Healthy Lifestyle:\\.br\\ ACTIVITY Follow your doctors instructions regarding staying active\\.br\\Balance rest and activity. Continue to do the activities you enjoy if okay with your doctor. Both activity and rest are important to the health of your heart.\\.br\\Avoid people with colds / flu.\\.br\\ \\.br\\ SMOKING Do not smoke or use other nicotine products. Nicotine is in all tobacco products. Nicotine causes damage to the heart, brain, and lungs. It is never too late to quit. Even if you have smoked for years, you can benefit from quitting or smoking less.\\.br\\If you or a loved one is interested in more information on smoking cessation, contact [facility] [phone]\\.br\\ \\.br\\ DIET Eat a variety of nutritious foods from all the food groups. To get the nutrients you need, choose foods like vegetables, fru (more content not included)... Normal [facility] AUTO DIFFon 04-09-2021 Baso Count 0.03 x1000 Normal 0.00-0.20 [facility] Comment on above: Performed By: #### 1 , [id number], [id number] ####[facility] [address] [place] [address] Medical Director: Herb Quiroz MD Basos % 0.3 % Normal [facility] Comment on above: Performed By: #### 1 , [id number], [id number] ####[facility] [address] [place] [address] Medical Director: Herb Quiroz MD Eos Count 0.53 x1000 High 0.00-0.50 [facility] Comment on above: Performed By: #### 1 , [id number], [id number] ####[facility] [address]trc[address] [place] [address] Medical Director: Herb Quiroz MD Eosinophils/100 WBC (Bld) 5.1 % Normal [facility] Comment on above: Performed By: #### 1 , 835492, [id number] ####[facility] [address]nxdcz[address] [place] [address] Medical Director: Herb Quiroz MD Lymph Count 2.68 x1000 Normal 1.20-4.80 [facility] Comment on above: Performed By: #### 1 , 086522, [id number] ####[facility] F[address]raqr13516 [place] [address] Medical Director: Herb Quirzo MD Lymphocytes/100 WBC (Bld) 26.0 % Normal [facility] Comment on above: Performed By: #### 1 , [id number], [id number] ####[facility] [address] [place] [address] Medical Director: Herb Quiroz MD [place] Count 0.89 x1000 Normal 0.10-1.00 [facility] Comment on above: Performed By: #### 1 51044, 384576, [id number] ####[facility] [address] [place] [address] Medical Director: Herb Quiroz MD Monocytes/100 WBC (Bld) 8.6 % Normal [facility] Comment on above: Performed By: #### 1 58431, 095793, [id number] ####[facility] [address] [place] [address] Medical Director: Herb Quiroz MD Neutrophil Count (ANC) 6.19 x1000 Normal 1.40-8.80 [facility] Comment on above: Performed By: #### 1 86933, [id number], [id number] ####[facility] [address] [place] [address] Medical Director: Herb Quiroz MD Neutrophils/100 WBC (Bld) 60.0 % Normal [facility] Comment on above: Performed By: #### 1 55076, 013854, [id number] ####[facility] [address] [place] [address] Medical Director: Herb Quiroz MD Scan Differential Diff Scd Normal [facility] Comment on above: Result Comment: Slid e reviewed by technologist. Performed By: #### 1 59492, 080910, [id number] ####[facility] [address]lnqo[address] [place] [address] Medical Director: Herb Quiroz MD BASICMETAon 04-09-2021 Calcium [Mass/Vol] 8.6 mg/dL Normal 8.5-10.5 [facility] Comment on above: Performed By: #### 1 60698, 607288, [id number] ####[facility] [address] [place] [address] Medical Director: Herb Quiroz MD Chloride [Moles/Vol] 110 mmol/L High 100-109 [facility] Comment on above: Performed By: #### 1 51938, 156401, [id number] ####[facility] [address] [place] [address] Medical Director: Herb Quiroz MD CO2 [Moles/Vol] 25.5 mmol/L Normal 21.0-32.0 [facility] Comment on above: Performed By: #### 1 69161, 075734, [id number] ####[facility] Invpzzcv76750 [place] [address] Medical Director: Herb Quiroz MD Creatinine [Mass/Vol] 1.0 mg/dL Normal 0.7-1.3 [facility] Comment on above: Performed By: #### 1 14146, 353852, [id number] ####[facility] [address] [place] [address] Medical Director: Herb Quiroz MD GFR AA >60 Normal [facility] Comment on above: Result Comment: Afri can Green[place]ic GFR Calc Medical judgement is necessary to interpret GFR. The calculated GFR may not accurately reflect renal status in patients >70 years, women, acutely ill hospitalized patients and patients with acute renal failure or known renal disease. The MDRD GFR formula is valid only for adults greater than 18 years of age. Note: Creatinine clearance (not GFR) should be used for drug dosing. Performed By: #### 1 79759, 822674, [id number] ####[facility] [address] [place] [address] Medical Director: Herb Quiroz MD Glomerular Filtration Rate >60 Normal [facility] Comment on above: Result Comment: Non GFR Calc Medical judgement is necessary to interpret GFR. The calculated GFR may not accurately reflect renal status in patients >70 years, women, acutely ill hospitalized patients and patients with acute renal failure or known renal disease. The MDRD GFR formula is valid only for adults greater than 18 years of age. Note: Creatinine clearance (not GFR) should be used for drug dosing. Performed By: #### 1 25595, 023024, [id number] ####[facility] [address]kv224[address] [place], [place] [id number]) [phone] Director: Herb Quiroz MD Glucose [Mass/Vol] 156 mg/dL High 72-100 [facility] Comment on above: Result Comment: Nori puncture should occur prior to sulfasalazine administration due to the potential for falsely depressed results. Venipuncture should occur prior to sulfapyridine administration due to the potential falsely elevated results. Baseline assay values before administration of sulfasalazine and sulfapyridine therapy would not be affected. Performed By: #### 1 04024, [id number], [id number] ####[facility] [address] [place], [place] [id number]) [phone] Director: Herb Quiroz MD Osmolality [Osmolality] 286 mosm/kg Normal 275-295 [facility] Comment on above: Performed By: #### 1 19519, 926101, [id number] ####[facility] [address]fj[address] [place] [address] Medical Director: Herb Quiroz MD Potassium [Moles/Vol] 3.5 mmol/L Normal 3.5-5.1 [facility] Comment on above: Performed By: #### 1 14977, 286829, [id number] ####[facility] [address]iazwpkl[address] [place] [address] Medical Director: Herb Quiroz MD Sodium [Moles/Vol] 142 mmol/L Normal 135-145 [facility] Comment on above: Performed By: #### 1 38504, 211604, [id number] ####[facility] [address]mwtuy[address]50 [place] [address] Medical Director: Herb Quiroz MD Urea nitrogen [Mass/Vol] 12 mg/dL Normal 10-20 [facility] Comment on above: Performed By: #### 1 68867, 902309, [id number] ####[facility] [address]rbmuciq37[address] [place] [address] Medical Director: Herb Quiroz MD Urea nitrogen/Creatinine [Mass ratio] 12.4 mg/mg Normal [facility] Comment on above: Performed By: #### 1 83219, 523058, [id number] ####[facility] [address]aki[address] [place] [address] Medical Director: Herb Quiroz MD [place]-Referral Informati onon 04-09-2021 [place]-Referral Information Patient: ALLAN LARA Age: 70 years Sex: Male : 1950 Associated Diagnoses: None Author: GIOVANA BLUNT CNP [place] - Referral Information Patient Information Pt referred to: [facility] Attending Physician Info: Garrett Inpatient Date: 04/05/21 Medical Information Principal Diagnosis: multiple falls, HAYLIE, diarrhea Surgeries: n/a Most Recent Height/Length Measured: Height/Length Dosin.72cm 04/05/2021 14:40 Weight Measured: Weight Dosinkg 04/05/2021 14:40 BMI Measured: 21.8kg/m2 04/05/2021 14:40 Contributing Values Height/Length Measured: 04/05/2021 14:40 Weight Measured: 04/05/2021 14:40 Additional Orders (Note: Medication orders need to be entered by provider as electronic Rx)Diet at Discharge: consistent carb meal Addl Orders Other: Jasso care daily and prn Therapies and Treatment Physical Therapy: No Occupational Therapy: No Speech Therapy: No Cultures, Skin, Wound Care MDRO: No CDiff: No Pending Cultures: No Isolation Types: None Certification Certify inpatient required at: Skilled level Potential for returning to the community: Convalescent stay less than 30 days Prognosis: Good Rehab Potential / Function: Improve Other Hospital/ECF Admissions past 60d: No I certify that inpatient care is required at the level recommended. To the best of my knowledge, all information provided about the individual is a true and accurate reflection of the individual's condition. Normal [facility] HEMOon 04-09-2021 DIFF? No Normal [facility] Comment on above: Performed By: #### 1 11432, 512726, [id number] ####[facility] [address]fy[address] [place], [place] [id number]) [phone] Director: Herb Quiroz MD Nucleated RBC 0 /100WBC Normal [facility] Comment on above: Performed By: #### 1 , [id number], [id number] ####[facility] Xcyrgbvk78307 [place], [place] [id number]) [phone] Director: Herb Quiroz MD [facility] Actions See Notes Abnormal [facility] Comment on above: Result Comment: Scan Slide. Perform manual diff if needed. SNV Performed By: #### 1 77750, [id number], [id number] ####[facility] [address]35[address] [place], [place] [id number]) [phone] Director: Herb Quiroz MD Erythrocyte distribution width (RBC) [Ratio] 13.7 % Normal 11.5-14.5 [facility] Comment on above: Performed By: #### 1 19276, 240500, [id number] ####[facility] T[address]wv848[address] [place], [place] [id number]) [phone] Director: Herb Quiroz MD Hematocrit (Bld) [Volume fraction] 37.4 % Low 41.0-52.0 [facility] Comment on above: Performed By: #### 1 74410, 314376, [id number] ####[facility] Ksskpydm95[address] [place], [place] [id number]) [phone] Director: Herb Quiroz MD Hemoglobin (Bld) [Mass/Vol] 13.1 g/dL Low 13.5-17.5 [facility] Comment on above: Performed By: #### 1 54323, 061678, [id number] ####[facility] [address] [place], [place] [id number]) [phone] Director: Herb Quiroz MD Instr WBC 10.3 Normal [facility] Comment on above: Performed By: #### 1 91873, 783447, 6393235 ####[facility] [address] [place], [place] [id number]) [phone] Director: Herb Quiroz MD MCH (RBC) [Entitic mass] 30.0 pg Normal 27.0-34.0 [facility] Comment on above: Performed By: #### 1 , 222780, [id number] ####[facility] [address] [place], [place] [id number]) [phone] Director: Herb Quiroz MD MCHC (RBC) [Mass/Vol] 35.1 g/dL Normal 32.0-37.0 [facility] Comment on above: Performed By: #### 1 47794, 071637, [id number] ####[facility] Akcpdnvm47412 [place], [place] [id number]) [phone] Director: Herb Quiroz MD MCV (RBC) [Entitic vol] 85.3 fL Normal 80.0-100.0 [facility] Comment on above: Performed By: #### 1 81865, 397584, 1143574 ####[facility] Gelnsvol72741 [place], [place] [id number]) [phone] Director: Herb Quiroz MD Platelet 203 x1000 Normal 150-450 [facility] Comment on above: Performed By: #### 1 53971, 554159, [id number] ####[facility] Qvhbflts63661 [place], [place] [id number]) [phone] Director: Herb Quiroz MD Platelet mean volume (Bld) [Entitic vol] 8.3 fL Normal 7.4-10.4 [facility] Comment on above: Performed By: #### 1 23797, 174037, [id number] ####[facility] [address] [place] [address] Medical Director: Herb Quiroz MD RBC 4.38 x10 Low 4.70-6.10 [facility] Comment on above: Result Comment: Note : RBC morphology is normal unless otherwise stated. Evaluation performed only if differential is requested. Performed By: #### 1 18878, 768479, [id number] ####[facility] [address] [place] [address] Medical Director: Herb Quiroz MD WBC 10.3 x10 Normal 4.5-11.0 [facility] Comment on above: Performed By: #### 1 43403, 441835, 5283581 ####[facility] Effvvzju50438 [place] [address] Medical Director: Herb Quiroz MD MG LEVELon 04-09-2021 Magnesium [Mass/Vol] 1.8 mg/dL Normal 1.6-2.6 [facility] Comment on above: Performed By: #### 9 [id number], [id number] #### [facility] [place] [id number] [place] [id number] Audioprosthologist: Herb Quiroz MD Nursing Clinical Noteon Nursing Clinical Note Report received fr odilia Paul RN 0830- Pt assessed and medicated, denies needs, alarm on, will monitor. Report called to [facility] Normal [facility] POC Glucoseon 04-09-2021 Glucose [Mass/Vol] 171 mg/dL High 72-100 [facility] Comment on above: Performed By: #### 1 [id number] ####[facility] Spyznsek[address] [place] [address] Medical Director: Herb Quiroz MD Glucose [Mass/Vol] 149 mg/dL High 72-100 [facility] Comment on above: Performed By: #### 1 37479 #### [facility] [address] [place] [address] Audioprosthologist: Herb Quiroz MD Glucose [Mass/Vol] 133 mg/dL High 72-100 [facility] Comment on above: Performed By: #### 1 [id number] ####[facility] [address] [place] [address] Medical Director: Herb Quiroz MD Glucose [Mass/Vol] 162 mg/dL High 72-100 [facility] Comment on above: Performed By: #### 1 [id number] #### [facility] [address] [place] [address] Audioprosthologist: Herb Quiroz MD Progress Note-Physicianon Progress Note-Physician Patient: ALLAN LARA Age: 70 years Sex: Male : 1950 Associated Diagnoses: Tachycardia; Severe sepsis; Nausea; Multiple falls; Kidney neoplasm; Hyperlipemia; Hyperkalemia; HTN (hypertension); Diabetes mellitus; Dementia; Dehydration; COVID-19; Acute renal failure (ARF); Acute diarrhea Author: SANTI KAUFFMAN, [facility] INTERNAL MEDICINE/INFECTIOUS DISEASE Basic Information Admission information: 1. Altered mental status metabolic encephalopathy. 2. Leukocytosis a white count of 25,600 with increased monocyte distribution and a left shift with bandemia 3. Elevated lactate 3.6 4. Sepsis 5. Hyperkalemia potassium of 6.3 on admission 6. Acute kidney injury with a BUN of 32 creatinine 2.3 which has normalized BUN 12 with creatinine 1.03. Plan 1. Patient could be discharged from [place] perspective 2. No antibiotics on discharge 3. Blood and urine cultures have all been negative. 4. Patient had Zosyn and ceftriaxone until today. 5. No antibiotic on discharge . Today's Information: More awake more alert more cooperative. No fever. Interval notes reviewed. . Review of Systems Constitutional: Weakness, Fatigue. Eye: Negative. Ear/Nose/Mouth/Throa t: Negative. Respiratory: No shortness of breath, No cough, No sputum production. Cardiovascular: No tachycardia, No peripheral edema, No syncope. Gastrointestinal: No vomiting, No diarrhea. Genitourinary: Negative. Hematology/Lymphatic s: Negative. Endocrine: Negative. Immunologic: Negative. Musculoskeletal: Negative. Integumentary: No rash, No pruritus. Neurologic: Negative. Psychiatric: Negative. ROS reviewed as documented in chart Health Status Allergies: Allergies (1) Active Reaction No Known Allergies None Documented Current medications: Medications (25) Active Scheduled: (13) AMLODIPINE 10MG TAB 10 mg 1 tabs, ORAL, QHS ATORVASTATIN 10MG TAB 10 mg 1 tabs, ORAL, QHS CEFTRIAXONE 1 g 50 mL, IV Piggyback, [id number] CHOLECALCIFEROL 1000 Intl Unit (25mcg) TAB 50 mcg 2 tabs, ORAL, DAILY CLOZAPINE 100MG TAB 100 mg 1 tabs, ORAL, DAILY CLOZAPINE 100MG TAB 200 mg 2 tabs, ORAL, QHS DOCUSATE SODIUM 100MG CAPSULE 100 mg 1 caps, ORAL, BID ENOXAPARIN 40MG/0.4ML INJ 40 mg 0.4 mL, Subcutaneous, QHS HUMAN LISPRO Mild Scale, Subcutaneous, QIDWMHS LEVOTHYROXINE 50MCG TABLET 50 mcg 1 tabs, ORAL, DAILY BEFORE BREAKFAST PANTOPRAZOLE 40MG TAB 40 mg 1 tabs, ORAL, DAILY SODIUM CHLORIDE SYR/VIAL 10ML 3 mL, IV Push, [id number] TAMSULOSIN 0.4MG CAP 0.4 mg 1 caps, ORAL, BID Continuous: (1) SODIUM CHLORIDE 0.9% 1,000 mL 1,000 mL, IV, 80 mL/hr PRN: (11) ACETAMINOPHEN 325 MG TAB 650 mg 2 tabs, ORAL, [id number] ACETAMINOPHEN 325 MG TAB 650 mg 2 tabs, ORAL, [id number] ALBUTEROL 0.083% AEROSOL 2.5mg/3ML 2.5 mg 3 mL, Inhalation, [id number] RESPIRATORY DEXTROSE 50% 50ML SYRINGE/VIAL 12.5 g 25 mL, IV Push, PRN DEXTROSE 50% 50ML SYRINGE/VIAL 25 g 50 mL, IV Push, PRN GLUCAGON 1MG INJ 1 mg, IM, PRN GLUCOSE GEL 15GM/42ML 15 g 1 packets, ORAL, PRN GLUCOSE GEL 15GM/42ML 30 g 2 packets, ORAL, PRN SODIUM CHLORIDE NASAL SPRAY 45ML 2 sprays, Intranasal, QID SODIUM CHLORIDE SYR/VIAL 10ML 3 mL, IV Push, PRN ZOLPIDEM 2.5MG/ 0.5 TABLET 2.5 mg 1 EA, ORAL, QHS/[id number] Physical Examination VS/Measurements Vital Signs (last 24 hrs) Last Charted Heart Rate Peripheral 94 bpm (APR 09 15:10) Resp Rate 18 br/min (APR 09 15:10) SBP 117 mmHg (APR 09:09) DBP 75 mmHg (APR 09 15:09) General: No acute distress. Eye: Pupils are equal, round and reactive to light, Extraocular movements are intact, Normal conjunctiva. HENT: Normocephalic, Oral mucosa is moist. Neck: Supple, Non-tender, No carotid bruit, No jugular venous distention, No lymphadenopathy. Respiratory: Lungs are clear to auscultation, Respirations are non-labored, Breath sounds are equal, Symmetrical chest wall expansion, No chest wall tenderness. Cardiovascular: Normal rate, Regular rhythm, No murmur, No gallop. Gastrointestinal: Non-tender, Non-distended, Normal bowel sounds, No organomegaly. Genitourinary: No costovertebral angle tenderness, No inguinal tenderness. Lymphatics: No lymphadenopathy neck, axilla, groin. Musculoskeletal: Normal strength, No tenderness, No swelling, No deformity. Integumentary: Warm, Dry, No rash. Neurologic: Alert, No focal deficits. Psychiatric: Cooperative. Review / Management Results review: Labs (Last four charted values) WBC 10.3 (APR 09) 10.4 (APR 08) H 11.2 (APR 06) H 25.6 (APR 05) Hgb L 13.1 (APR 09) L 12.2 (APR 08) 13.8 (APR 06) 16.7 (APR 05) Hct L 37.4 (APR 09) L 35.2 (APR 08) 41.2 (APR 06) 49.8 (APR 05) Plt 203 (APR 09) 174 (APR 08) 163 (APR 06) 259 (APR 05) Na 142 (APR 09) 143 (APR 08) 143 (APR 07) 140 (APR 06) K 3.5 (APR 09) 3.5 (APR 08) 3.8 (APR 07) L 3.4 (APR 06) CO2 25.5 (APR 09) 23.9 (APR 08) 23.5 (APR 07) 23.0 (APR 06) Cl H 110 (APR 09) H 111 (APR 08) H 113 (APR 07) H (more content not included)... Normal [facility] Progress Note-Physician Patient: ALLAN LARA Age: 70 years Sex: Male : 1950 Associated Diagnoses: Tachycardia; Severe sepsis; Nausea; Multiple falls; Kidney neoplasm; Hyperlipemia; Hyperkalemia; HTN (hypertension); Diabetes mellitus; Dementia; Dehydration; COVID-19; Acute renal failure (ARF); Acute diarrhea Author: SANTI KAUFFMAN, [facility] INTERNAL MEDICINE/INFECTIOUS DISEASE Basic Information Admission information: 1. Altered mental status with encephalopathy progressively improving 2. Low perfusion status manifested by acute kidney injury which has improved 3. Acute urinary retention 4. Hyperkalemia potassium 6.3 improved 5. Dyslipidemia/cogniti ve decline/diabetes mellitus. Plan 1. Discontinue antibiotics 2. Physical therapy as needed 3. Patient could be discharged to extended care facility . Today's Information: Very cooperative. General combative. No fever . Review of Systems Constitutional: Weakness, Fatigue, Decreased activity. Eye: Negative. Ear/Nose/Mouth/Throa t: Negative. Respiratory: Negative. Cardiovascular: Negative. Gastrointestinal: Negative. Genitourinary: No hematuria, No change in urine stream. Hematology/Lymphatic s: Negative. Endocrine: Negative. Immunologic: Negative. Musculoskeletal: Negative. Integumentary: Negative. Neurologic: Negative. Psychiatric: Negative. ROS reviewed as documented in chart Health Status Allergies: Allergies (1) Active Reaction No Known Allergies None Documented Current medications: Medications (25) Active Scheduled: (13) AMLODIPINE 10MG TAB 10 mg 1 tabs, ORAL, QHS ATORVASTATIN 10MG TAB 10 mg 1 tabs, ORAL, QHS CEFTRIAXONE 1 g 50 mL, IV Piggyback, [id number] CHOLECALCIFEROL 1000 Intl Unit (25mcg) TAB 50 mcg 2 tabs, ORAL, DAILY CLOZAPINE 100MG TAB 100 mg 1 tabs, ORAL, DAILY CLOZAPINE 100MG TAB 200 mg 2 tabs, ORAL, QHS DOCUSATE SODIUM 100MG CAPSULE 100 mg 1 caps, ORAL, BID ENOXAPARIN 40MG/0.4ML INJ 40 mg 0.4 mL, Subcutaneous, QHS HUMAN LISPRO Mild Scale, Subcutaneous, QIDWMHS LEVOTHYROXINE 50MCG TABLET 50 mcg 1 tabs, ORAL, DAILY BEFORE BREAKFAST PANTOPRAZOLE 40MG TAB 40 mg 1 tabs, ORAL, DAILY SODIUM CHLORIDE SYR/VIAL 10ML 3 mL, IV Push, [id number] TAMSULOSIN 0.4MG CAP 0.4 mg 1 caps, ORAL, BID Continuous: (1) SODIUM CHLORIDE 0.9% 1,000 mL 1,000 mL, IV, 80 mL/hr PRN: (11) ACETAMINOPHEN 325 MG TAB 650 mg 2 tabs, ORAL, [id number] ACETAMINOPHEN 325 MG TAB 650 mg 2 tabs, ORAL, [id number] ALBUTEROL 0.083% AEROSOL 2.5mg/3ML 2.5 mg 3 mL, Inhalation, [id number] RESPIRATORY DEXTROSE 50% 50ML SYRINGE/VIAL 12.5 g 25 mL, IV Push, PRN DEXTROSE 50% 50ML SYRINGE/VIAL 25 g 50 mL, IV Push, PRN GLUCAGON 1MG INJ 1 mg, IM, PRN GLUCOSE GEL 15GM/42ML 15 g 1 packets, ORAL, PRN GLUCOSE GEL 15GM/42ML 30 g 2 packets, ORAL, PRN SODIUM CHLORIDE NASAL SPRAY 45ML 2 sprays, Intranasal, QID SODIUM CHLORIDE SYR/VIAL 10ML 3 mL, IV Push, PRN ZOLPIDEM 2.5MG/ 0.5 TABLET 2.5 mg 1 EA, ORAL, QHS/[id number] Physical Examination VS/Measurements Vital Signs (last 24 hrs) Last Charted Heart Rate Peripheral H 104bpm (APR 08 13:00) Resp Rate 13 br/min (APR 08 12:59) SBP 129 mmHg (APR 08 12:59) DBP 77 mmHg (APR 08 12:59) General: No acute distress. Eye: Normal conjunctiva. HENT: Normocephalic, Oral mucosa is moist. Neck: Non-tender, No carotid bruit, No jugular venous distention, No lymphadenopathy. Respiratory: Lungs are clear to auscultation, Respirations are non-labored, Breath sounds are equal, Symmetrical chest wall expansion, No chest wall tenderness. Cardiovascular: Normal rate, Regular rhythm, No gallop. Gastrointestinal: Soft, Non-tender, Non-distended, Normal bowel sounds. Genitourinary: No costovertebral angle tenderness, No inguinal tenderness. Lymphatics: No lymphadenopathy neck, axilla, groin. Musculoskeletal: No tenderness, No swelling, No deformity. Integumentary: Warm, Dry, No rash. Neurologic: Alert. Psychiatric: Cooperative. Review / Management Results review: Labs (Last four charted values) WBC 10.4 (APR 08) H 11.2 (APR 06) H 25.6 (APR 05) Hgb L 12.2 (APR 08) 13.8 (APR 06) 16.7 (APR 05) Hct L 35.2 (APR 08) 41.2 (APR 06) 49.8 (APR 05) Plt 174 (APR 08) 163 (APR 06) 259 (APR 05) Na 143 (APR 08) 143 (APR 07) 140 (APR 06) L 132 (APR 05) K 3.5 (APR 08) 3.8 (APR 07) L 3.4 (APR 06) 4.0 (APR 05) CO2 23.9 (APR 08) 23.5 (APR 07) 23.0 (APR 06) 23.0 (APR 05) Cl H 111 (APR 08) H 113 (APR 07) H 112 (APR 06) 105 (APR 05) Cr 0.9 (APR 08) 1.0 (APR 07) H 1.5 (APR 06) H 2.3 (APR 05) BUN 12 (APR 08) 19 (APR 07) H 36 (APR 06) H 32 (APR 05) Glucose Random H 107 (APR 08) 96 (APR 07) H 122 (APR 06) H 325 (APR 05) Mg 1.8 (APR 08) 2.1 (APR 07) Phos 2.6 (APR 08) L 2.3 (APR 07) Ca L 8.1 (APR 08) L 7.9 (APR 07) L 8.1 (APR 06) 9.2 (APR 05) INR 1.0 (APR 05) Total CK 272 (APR 05) . Impression and Plan Diagnosis Tachycardia - [id number] R00.0, Medical. Severe sepsis - (more content not included)... Normal [facility] Progress Note-Physician Patient: ALLAN LARA Age: 70 years Sex: Male : 1950 Associated Diagnoses: None Author: ABRAHAM KAUFFMAN, [facility] Nephrology Impression and Plan This is a 69-year-old white male with past medical history of cognitive decline, schizoaffective disorder, hypertension, hyperlipidemia hypothyroidism presented to the hospital with altered mental status. Patient was lethargic and combative. Patient was admitted to the hospital a year ago for pneumonia. Now presented with altered mental status and patient was found to have elevated kidney function with creatinine up to 2.3 mg/dL and serum potassium of 6.3 and lactic acidosis with a lactic acid of 3.6 and nephrology consulted for further evaluation management. Patient is tachycardic on presentation and blood pressures on the lower side with elevated lactic acid and treated for septic shock. 1. Nonoliguric acute kidney injury on top of chronic kidney disease stage III with baseline creatinine around 1.4 mg/dL likely secondary to prerenal azotemia in the setting of intravascular volume depletion, sepsis versus obstructive nephropathy in the setting of urinary retention. 2. Hyperkalemia likely secondary to obstructive nephropathy and acute kidney injury. 3. Mild hyponatremia likely hypovolemia, resolved. 4. Sepsis. 5. Hypertension. 6. Hyperlipidemia. 7. Hypothyroidism. Plan. -Patient has stable renal function with creatinine of 1.0 mg/dL and has good urine output of 2.9 L in the last 24 hours. Ins and outs significant for net 1.4 L negative. -CT abdomen pelvis showed possible renal lesions of cystic/proteinaceous and concern for renal mass. Patient needs renal mass protocol CT follow-up. CT abdomen pelvis with renal protocol showed Bosniak 2F lesion that needs follow-up with renal ultrasound every 6 months. I have discussed with the patient regarding follow-up for his renal mass. He agreed to follow-up. I will give a follow-up in my clinic in 2 months. And also will give a follow-up renal ultrasound in 6 months. -Hypokalemia, resolved. -Avoid nephrotoxins including NSAIDs and contrast. -Daily renal function panel. -Continue on ceftriaxone for possible sepsis. -Hypertension: Blood pressure is optimally controlled and currently on amlodipine 10 mg p.o. daily. -Monitor strict I's and O's. Orders Subjective The patient was seen and examined. No acute event overnight. Denies any complaints. Review of Systems GENERAL: No fever/chills. RESPIRATORY: Negative for cough, wheezing or shortness of breath. CARDIOVASCULAR: Negative for chest pain or palpitations. GI: Negative for abdominal pain, diarrhea, nausea, vomiting. : Negative for dysuria and hematuria. Health Status Medications (25) Active Scheduled: (13) AMLODIPINE 10MG TAB 10 mg 1 tabs, ORAL, QHS ATORVASTATIN 10MG TAB 10 mg 1 tabs, ORAL, QHS CEFTRIAXONE 1 g 50 mL, IV Piggyback, [id number] CHOLECALCIFEROL 1000 Intl Unit (25mcg) TAB 50 mcg 2 tabs, ORAL, DAILY CLOZAPINE 100MG TAB 100 mg 1 tabs, ORAL, DAILY CLOZAPINE 100MG TAB 200 mg 2 tabs, ORAL, QHS DOCUSATE SODIUM 100MG CAPSULE 100 mg 1 caps, ORAL, BID ENOXAPARIN 40MG/0.4ML INJ 40 mg 0.4 mL, Subcutaneous, QHS HUMAN LISPRO Mild Scale, Subcutaneous, QIDWMHS LEVOTHYROXINE 50MCG TABLET 50 mcg 1 tabs, ORAL, DAILY BEFORE BREAKFAST PANTOPRAZOLE 40MG TAB 40 mg 1 tabs, ORAL, DAILY SODIUM CHLORIDE SYR/VIAL 10ML 3 mL, IV Push, [id number] TAMSULOSIN 0.4MG CAP 0.4 mg 1 caps, ORAL, BID Continuous: (1) SODIUM CHLORIDE 0.9% 1,000 mL 1,000 mL, IV, 80 mL/hr PRN: (11) ACETAMINOPHEN 325 MG TAB 650 mg 2 tabs, ORAL, [id number] ACETAMINOPHEN 325 MG TAB 650 mg 2 tabs, ORAL, [id number] ALBUTEROL 0.083% AEROSOL 2.5mg/3ML 2.5 mg 3 mL, Inhalation, [id number] RESPIRATORY DEXTROSE 50% 50ML SYRINGE/VIAL 12.5 g 25 mL, IV Push, PRN DEXTROSE 50% 50ML SYRINGE/VIAL 25 g 50 mL, IV Push, PRN GLUCAGON 1MG INJ 1 mg, IM, PRN GLUCOSE GEL 15GM/42ML 15 g 1 packets, ORAL, PRN GLUCOSE GEL 15GM/42ML 30 g 2 packets, ORAL, PRN SODIUM CHLORIDE NASAL SPRAY 45ML 2 sprays, Intranasal, QID SODIUM CHLORIDE SYR/VIAL 10ML 3 mL, IV Push, PRN ZOLPIDEM 2.5MG/ 0.5 TABLET 2.5 mg 1 EA, ORAL, QHS/[id number] Allergies: Allergic Reactions (Selected) No Known Allergies Objective Vital Signs (last 24 hrs) Last Charted Heart Rate Peripheral 94 bpm (APR 09 15:10) Resp Rate 18 br/min (APR 09 15:10) SBP 117 mmHg (APR 09 15:09) DBP 75 mmHg (APR 09:09) GENERAL: NAD HEENT: NCAT, MMM , oropharynx clear. EYES: Conjunctiva -Pallor, Non icterus sclera. NECK: supple, No JVD. LUNGS: CTA , diminished AE at abse CVS: S1 S2 normal, no M/R/G ABDOMEN: soft, non-tender. BS + EDEMA: no Lower extremity/ Dependent edema Review / Management Labs (Last four charted values) WBC 10.3 (APR 09) 10.4 (APR 08) H 11.2 (APR 06) H 25.6 (APR 05) Hgb L 13.1 ( (more content not included)... Normal [facility] Progress Note-Physician Patient: ALLAN LARA Age: 70 years Sex: Male : 1950 Associated Diagnoses: None Author: GARRETT KAUFFMAN, ROLANDO Beltran PROGRESS NOTE Impression and plan: Complex renal cyst, CT abd reviewed, Uro consult PCM, mild, start on Boost plus Sepsis, c/w IV Rocephin, slowly improving HAYLIE, is better now, c/w IVF, monitor BMP Hypokalemia, better now, monitor and replace K+ Hyperkalemia, better now, monitor BMP Acute urinary retention, c/w Jasso, c/w Flomax. Interval History: 1. 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 Health Status Current medications: Medications (25) Active Scheduled: (13) AMLODIPINE 10MG TAB 10 mg 1 tabs, ORAL, QHS ATORVASTATIN 10MG TAB 10 mg 1 tabs, ORAL, QHS CEFTRIAXONE 1 g 50 mL, IV Piggyback, [id number] CHOLECALCIFEROL 1000 Intl Unit (25mcg) TAB 50 mcg 2 tabs, ORAL, DAILY CLOZAPINE 100MG TAB 100 mg 1 tabs, ORAL, DAILY CLOZAPINE 100MG TAB 200 mg 2 tabs, ORAL, QHS DOCUSATE SODIUM 100MG CAPSULE 100 mg 1 caps, ORAL, BID ENOXAPARIN 40MG/0.4ML INJ 40 mg 0.4 mL, Subcutaneous, QHS HUMAN LISPRO Mild Scale, Subcutaneous, QIDWMHS LEVOTHYROXINE 50MCG TABLET 50 mcg 1 tabs, ORAL, DAILY BEFORE BREAKFAST PANTOPRAZOLE 40MG TAB 40 mg 1 tabs, ORAL, DAILY SODIUM CHLORIDE SYR/VIAL 10ML 3 mL, IV Push, [id number] TAMSULOSIN 0.4MG CAP 0.4 mg 1 caps, ORAL, BID Continuous: (1) SODIUM CHLORIDE 0.9% 1,000 mL 1,000 mL, IV, 80 mL/hr PRN: (11) ACETAMINOPHEN 325 MG TAB 650 mg 2 tabs, ORAL, [id number] ACETAMINOPHEN 325 MG TAB 650 mg 2 tabs, ORAL, [id number] ALBUTEROL 0.083% AEROSOL 2.5mg/3ML 2.5 mg 3 mL, Inhalation, [id number] RESPIRATORY DEXTROSE 50% 50ML SYRINGE/VIAL 12.5 g 25 mL, IV Push, PRN DEXTROSE 50% 50ML SYRINGE/VIAL 25 g 50 mL, IV Push, PRN GLUCAGON 1MG INJ 1 mg, IM, PRN GLUCOSE GEL 15GM/42ML 15 g 1 packets, ORAL, PRN GLUCOSE GEL 15GM/42ML 30 g 2 packets, ORAL, PRN SODIUM CHLORIDE NASAL SPRAY 45ML 2 sprays, Intranasal, QID SODIUM CHLORIDE SYR/VIAL 10ML 3 mL, IV Push, PRN ZOLPIDEM 2.5MG/ 0.5 TABLET 2.5 mg 1 EA, ORAL, QHS/[id number] Physical Examination Vital Signs (last 24 hrs) Last Charted Heart Rate Peripheral H 108bpm (APR 09 07:06) Resp Rate 18 br/min (APR 09 07:06) SBP 117 mmHg (APR 09 07:05) DBP 71 mmHg (APR 09 07:05) Labs (Last four charted values) WBC 10.3 (APR 09) 10.4 (APR 08) H 11.2 (APR 06) H 25.6 (APR 05) Hgb L 13.1 (APR 09) L 12.2 (APR 08) 13.8 (APR 06) 16.7 (APR 05) Hct L 37.4 (APR 09) L 35.2 (APR 08) 41.2 (APR 06) 49.8 (APR 05) Plt 203 (APR 09) 174 (APR 08) 163 (APR 06) 259 (APR 05) Na 142 (APR 09) 143 (APR 08) 143 (APR 07) 140 (APR 06) K 3.5 (APR 09) 3.5 (APR 08) 3.8 (APR 07) L 3.4 (APR 06) CO2 25.5 (APR 09) 23.9 (APR 08) 23.5 (APR 07) 23.0 (APR 06) Cl H 110 (APR 09) H 111 (APR 08) H 113 (APR 07) H 112 (APR 06) Cr 1.0 (APR 09) 0.9 (APR 08) 1.0 (APR 07) H 1.5 (APR 06) BUN 12 (APR 09) 12 (APR 08) 19 (APR 07) H 36 (APR 06) Glucose Random H 156 (APR 09) H 107 (APR 08) 96 (APR 07) H 122 (APR 06) Mg 1.8 (APR 09) 1.8 (APR 08) 2.1 (APR 07) Phos 2.6 (APR 08) L 2.3 (APR 07) Ca 8.6 (APR 09) L 8.1 (APR 08) L 7.9 (APR 07) L 8.1 (APR 06) INR 1.0 (APR 05) Total CK 272 (APR 05) General: Mild distress. Eye: Normal conjunctiva. HENT: Normocephalic. Neck: Supple. Respiratory: Lungs are clear to auscultation. Cardiovascular: Normal rate, Regular rhythm. Gastrointestinal: Soft, Non-tender. Musculoskeletal: Normal strength. Integumentary: Warm. Neurologic: Alert. Psychiatric: Cooperative. Reason For Exam Renal lesions; OTHER REASON Report EXAMINATION: CT of the abdomen and pelvis without IV contrast REASON FOR EXAM: Renal lesions; OTHER REASON Reason For Exam Renal lesion;OTHER REASON Report EXAM: CT Abdomen Without and With Intravenous Contrast CLINICAL HISTORY: Evaluation of renal lesions. Abnormal noncontrast CT. TECHNIQUE: Axial computed tomography images of the abdomen without and with intravenous contrast. Sagittal and coronal reformatted images were created and reviewed. This CT exam was performed using one or more of the following dose reduction techniques: automated exposure control, adjustment of the mA and/or kV according to patient size, and/or use of iterative reconstruction technique. Limited exam. No delayed images performed. CONTRAST: 100mL of Isovue-300 was administered intravenously. COMPARISON: CT scan of the abdomen 04/06/2021. Ultrasound of the kidneys 04/05/2021. FINDINGS: Lung bases: Groundglass opacities and atelectatic changes noted towards the lung bases. Heart: Small pericardial effusion. Liver: Unremarkable. No mass. Gallbladder and bile ducts: Gallstones. No ductal dilation. Pancreas: Unremarkable. No mass. No ductal dilation. Spleen: Unremarkable. No splenomegaly. Adrenals: Unremarkable. No mass. Kidneys and ureter (more content not included)... Normal [facility] Progress Note-Physician Patient: ALLAN LARA Age: 70 years Sex: Male : 1950 Associated Diagnoses: None Author: GARRETT KAUFFMAN, ROLANDO Beltran PROGRESS NOTE Impression and plan: Complex renal cyst, CT abd reviewed, Uro consult PCM, mild, start on Boost plus Sepsis, c/w IV Rocephin, slowly improving HAYLIE, is better now, c/w IVF, monitor BMP Hypokalemia, better now, monitor and replace K+ Hyperkalemia, better now, monitor BMP Acute urinary retention, c/w Jasso, c/w Flomax. Interval History: 1. 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 Health Status Current medications: Medications (25) Active Scheduled: (13) AMLODIPINE 10MG TAB 10 mg 1 tabs, ORAL, QHS ATORVASTATIN 10MG TAB 10 mg 1 tabs, ORAL, QHS CEFTRIAXONE 1 g 50 mL, IV Piggyback, [id number] CHOLECALCIFEROL 1000 Intl Unit (25mcg) TAB 50 mcg 2 tabs, ORAL, DAILY CLOZAPINE 100MG TAB 100 mg 1 tabs, ORAL, DAILY CLOZAPINE 100MG TAB 200 mg 2 tabs, ORAL, QHS DOCUSATE SODIUM 100MG CAPSULE 100 mg 1 caps, ORAL, BID ENOXAPARIN 40MG/0.4ML INJ 40 mg 0.4 mL, Subcutaneous, QHS HUMAN LISPRO Mild Scale, Subcutaneous, QIDWMHS LEVOTHYROXINE 50MCG TABLET 50 mcg 1 tabs, ORAL, DAILY BEFORE BREAKFAST PANTOPRAZOLE 40MG TAB 40 mg 1 tabs, ORAL, DAILY SODIUM CHLORIDE SYR/VIAL 10ML 3 mL, IV Push, [id number] TAMSULOSIN 0.4MG CAP 0.4 mg 1 caps, ORAL, BID Continuous: (1) SODIUM CHLORIDE 0.9% 1,000 mL 1,000 mL, IV, 80 mL/hr PRN: (11) ACETAMINOPHEN 325 MG TAB 650 mg 2 tabs, ORAL, [id number] ACETAMINOPHEN 325 MG TAB 650 mg 2 tabs, ORAL, [id number] ALBUTEROL 0.083% AEROSOL 2.5mg/3ML 2.5 mg 3 mL, Inhalation, [id number] RESPIRATORY DEXTROSE 50% 50ML SYRINGE/VIAL 12.5 g 25 mL, IV Push, PRN DEXTROSE 50% 50ML SYRINGE/VIAL 25 g 50 mL, IV Push, PRN GLUCAGON 1MG INJ 1 mg, IM, PRN GLUCOSE GEL 15GM/42ML 15 g 1 packets, ORAL, PRN GLUCOSE GEL 15GM/42ML 30 g 2 packets, ORAL, PRN SODIUM CHLORIDE NASAL SPRAY 45ML 2 sprays, Intranasal, QID SODIUM CHLORIDE SYR/VIAL 10ML 3 mL, IV Push, PRN ZOLPIDEM 2.5MG/ 0.5 TABLET 2.5 mg 1 EA, ORAL, QHS/[id number] Physical Examination Vital Signs (last 24 hrs) Last Charted Heart Rate Peripheral H 104bpm (APR 08 13:00) Resp Rate 13 br/min (APR 08 12:59) SBP 129 mmHg (APR 08 12:59) DBP 77 mmHg (APR 08 12:59) Labs (Last four charted values) WBC 10.4 (APR 08) H 11.2 (APR 06) H 25.6 (APR 05) Hgb L 12.2 (APR 08) 13.8 (APR 06) 16.7 (APR 05) Hct L 35.2 (APR 08) 41.2 (APR 06) 49.8 (APR 05) Plt 174 (APR 08) 163 (APR 06) 259 (APR 05) Na 143 (APR 08) 143 (APR 07) 140 (APR 06) L 132 (APR 05) K 3.5 (APR 08) 3.8 (APR 07) L 3.4 (APR 06) 4.0 (APR 05) CO2 23.9 (APR 08) 23.5 (APR 07) 23.0 (APR 06) 23.0 (APR 05) Cl H 111 (APR 08) H 113 (APR 07) H 112 (APR 06) 105 (APR 05) Cr 0.9 (APR 08) 1.0 (APR 07) H 1.5 (APR 06) H 2.3 (APR 05) BUN 12 (APR 08) 19 (APR 07) H 36 (APR 06) H 32 (APR 05) Glucose Random H 107 (APR 08) 96 (APR 07) H 122 (APR 06) H 325 (APR 05) Mg 1.8 (APR 08) 2.1 (APR 07) Phos 2.6 (APR 08) L 2.3 (APR 07) Ca L 8.1 (APR 08) L 7.9 (APR 07) L 8.1 (APR 06) 9.2 (APR 05) INR 1.0 (APR 05) Total CK 272 (APR 05) General: Mild distress. Eye: Normal conjunctiva. HENT: Normocephalic. Neck: Supple. Respiratory: Lungs are clear to auscultation. Cardiovascular: Normal rate, Regular rhythm. Gastrointestinal: Soft, Non-tender. Musculoskeletal: Normal strength. Integumentary: Warm. Neurologic: Alert. Psychiatric: Cooperative. Reason For Exam Renal lesions; OTHER REASON Report EXAMINATION: CT of the abdomen and pelvis without IV contrast REASON FOR EXAM: Renal lesions; OTHER REASON Reason For Exam Renal lesion;OTHER REASON Report EXAM: CT Abdomen Without and With Intravenous Contrast CLINICAL HISTORY: Evaluation of renal lesions. Abnormal noncontrast CT. TECHNIQUE: Axial computed tomography images of the abdomen without and with intravenous contrast. Sagittal and coronal reformatted images were created and reviewed. This CT exam was performed using one or more of the following dose reduction techniques: automated exposure control, adjustment of the mA and/or kV according to patient size, and/or use of iterative reconstruction technique. Limited exam. No delayed images performed. CONTRAST: 100mL of Isovue-300 was administered intravenously. COMPARISON: CT scan of the abdomen 04/06/2021. Ultrasound of the kidneys 04/05/2021. FINDINGS: Lung bases: Groundglass opacities and atelectatic changes noted towards the lung bases. Heart: Small pericardial effusion. Liver: Unremarkable. No mass. Gallbladder and bile ducts: Gallstones. No ductal dilation. Pancreas: Unremarkable. No mass. No ductal dilation. Spleen: Unremarkable. No splenomegaly. Adrenals: Unremarkable. No mass. Kidneys and ureters: Unchanged 6 mm nonobstructing stone in the lower pole of the righ (more content not included)... Normal [facility] AUTO DIFFon 04-08-2021 Baso Count 0.02 x1000 Normal 0.00-0.20 [facility] Comment on above: Performed By: #### 9 [id number] #### [facility] [address] [place] [address] 27848 Audioprosthologist: Herb Quiroz MD Basos % 0.2 % Normal [facility] Comment on above: Performed By: #### 9 [id number] #### [facility] [address] [place] [address] 46523 Audioprosthologist: Herb Quiroz MD Eos Count 0.34 x1000 Normal 0.00-0.50 [facility] Comment on above: Performed By: #### 9 [id number] #### [facility] [address] [place] [address] 13383 Audioprosthologist: Herb Quiroz MD Eosinophils/100 WBC (Bld) 3.2 % Normal [facility] Comment on above: Performed By: #### 9 [id number], [id number] #### [facility] [address] [place] [address] 28179 Audioprosthologist: Herb Quiroz MD Lymph Count 2.54 x1000 Normal 1.20-4.80 [facility] Comment on above: Performed By: #### 9 [id number], [id number] #### [facility] [address] [place] [address] 78803 Audioprosthologist: Herb Quiroz MD Lymphocytes/100 WBC (Bld) 24.4 % Normal [facility] Comment on above: Performed By: #### 9 [id number], [id number] #### [facility] [address] [place] [address] 01232 Audioprosthologist: Herb Quiroz MD [place] Count 0.76 x1000 Normal 0.10-1.00 [facility] Comment on above: Performed By: #### 9 [id number], [id number] #### [facility] [address] [place] [address] Audioprosthologist: Herb Quiroz MD Monocytes/100 WBC (Bld) 7.3 % Normal [facility] Comment on above: Performed By: #### 9 [id number], [id number] #### [facility] [address] [place] [address] 17506 Audioprosthologist: Herb Quiroz MD Neutrophil Count (ANC) 6.75 x1000 Normal 1.40-8.80 [facility] Comment on above: Performed By: #### 9 [id number], [id number] #### [facility] [address] [place] [address] 55427 Audioprosthologist: Herb Quiroz MD Neutrophils/100 WBC (Bld) 64.8 % Normal [facility] Comment on above: Performed By: #### 9 [id number], [id number] #### [facility] [address] [place] [address] 80458 Audioprosthologist: Herb Quiroz MD HEMOon 04-08-2021 DIFF? No Normal [facility] Comment on above: Performed By: #### 9 [id number], [id number] #### [facility] [address] [place] [address] 43450 Audioprosthologist: Herb Quiroz MD Erythrocyte distribution width (RBC) [Ratio] 13.5 % Normal 11.5-14.5 [facility] Comment on above: Performed By: #### 9 [id number], [id number] #### [facility] [address] [place] [address] 04482 Audioprosthologist: Herb Quiroz MD Hematocrit (Bld) [Volume fraction] 35.2 % Low 41.0-52.0 [facility] Comment on above: Performed By: #### 9 [id number], [id number] #### [facility] [address] [place] [address] 48582 Audioprosthologist: Herb Quiroz MD Hemoglobin (Bld) [Mass/Vol] 12.2 g/dL Low 13.5-17.5 [facility] Comment on above: Performed By: #### 9 [id number], [id number] #### [facility] [address] [place] [address] 19968 Audioprosthologist: Herb Quiroz MD Instr WBC 10.4 Normal [facility] Comment on above: Performed By: #### 9 [id number], [id number] #### [facility] [address] [place] [address] 15508 Audioprosthologist: Herb Quiroz MD MCH (RBC) [Entitic mass] 29.9 pg Normal 27.0-34.0 [facility] Comment on above: Performed By: #### 9 [id number], [id number] #### [facility] [address] [place] [address] 71573 Audioprosthologist: Herb Quiroz MD MCHC (RBC) [Mass/Vol] 34.6 g/dL Normal 32.0-37.0 [facility] Comment on above: Performed By: #### 9 [id number], [id number] #### [facility] [address] [place] [address] 45987 Audioprosthologist: Herb Quiroz MD MCV (RBC) [Entitic vol] 86.5 fL Normal 80.0-100.0 [facility] Comment on above: Performed By: #### 9 [id number], [id number] #### [facility] [address] [place] [address] 18528 Audioprosthologist: Herb Quiroz MD Nucleated RBC 0 /100WBC Normal [facility] Comment on above: Performed By: #### 9 [id number], [id number] #### [facility] [address] [place] [address] 60696 Audioprosthologist: Herb Quiroz MD Platelet 174 x1000 Normal 150-450 [facility] Comment on above: Performed By: #### 9 [id number], [id number] #### [facility] [address] [place] [address] 60310 Audioprosthologist: Herb Quiroz MD Platelet mean volume (Bld) [Entitic vol] 8.7 fL Normal 7.4-10.4 [facility] Comment on above: Performed By: #### 9 [id number], [id number] #### [facility] [address] [place] [address] 67060 Audioprosthologist: Herb Quiroz MD RBC 4.07 x10 Low 4.70-6.10 [facility] Comment on above: Result Comment: Note : RBC morphology is normal unless otherwise stated. Evaluation performed only if differential is requested. Performed By: #### 9 [id number], [id number] #### [facility] [address] [place], [place] [id number] Audioprosthologist: Herb Quiroz MD WBC 10.4 x10 Normal 4.5-11.0 [facility] Comment on above: Performed By: #### 9 [id number], [id number] #### [facility] [address] [place] [address] 12632 Audioprosthologist: Herb Quiroz MD MG LEVELon 04-08-2021 Magnesium [Mass/Vol] 1.8 mg/dL Normal 1.6-2.6 [facility] Comment on above: Performed By: #### 9 [id number], [id number] #### [facility] [address] [place] [address] 20067 Audioprosthologist: Herb Quiroz MD Nursing Clinical Noteon Nursing Clinical Note 0712: Report received from CONCEPCIÓN Mukherjee 0715: Pt resting in bed at this time, no signs of distress 0838: Scheduled medications given, see MAY 845: Assessment completed, see IView 0950: Pt watching TV, call light in reach, all needs met at this time 1215: Dr. Rosario rounded on pt and gave order to d/c fluids 1322: Pt off the floor to CT 1415: Pt returned to the floor from CT 1423: Scheduled medication given per MAY 1614: Pt resting in bed, will continue to monitor 1800: Pt watching TV, all needs met at this time Normal [facility] POC Glucoseon 04-08-2021 Glucose [Mass/Vol] 165 mg/dL High 72-100 [facility] Comment on above: Performed By: #### 9 [id number], [id number] #### [facility] [address] [place] [address] 08353 Audioprosthologist: Herb Quiroz MD Glucose [Mass/Vol] 110 mg/dL High [address] [place] [address] Comment on above: Performed By: #### 1 [id number] ####[facility] [address] [place] [address] 12504 Medical Director: Herb Quiroz MD Glucose [Mass/Vol] 173 mg/dL [address] Comment on above: Performed By: #### 9 [id number], [id number] #### [facility] [address] [place] [address] 46340 Audioprosthologist: Herb Quiroz MD Glucose [Mass/Vol] 128 mg/dL [facility] [address] [facility] Comment on above: Performed By: #### 1 [id number] #### [facility] [address] [place] [address] 95881 Audioprosthologist: Herb Quiroz MD PREALBon 04-08-2021 PREALB 15.5 mg/dL Low 20.0-40.0 [facility] Comment on above: Performed By: #### 6 [id number], [id number] ####[facility] [id number] [place] [address] 770[address] Medical Director: Herb Quiroz MD Progress Note-Physicianon Progress Note-Physician Patient: ALLAN LARA Age: 70 years Sex: Male : 1950 Associated Diagnoses: None Author: ABRAHAM KAUFFMAN, [facility] Nephrology Impression and Plan This is a 69-year-old white male with past medical history of cognitive decline, schizoaffective disorder, hypertension, hyperlipidemia hypothyroidism presented to the hospital with altered mental status. Patient was lethargic and combative. Patient was admitted to the hospital a year ago for pneumonia. Now presented with altered mental status and patient was found to have elevated kidney function with creatinine up to 2.3 mg/dL and serum potassium of 6.3 and lactic acidosis with a lactic acid of 3.6 and nephrology consulted for further evaluation management. Patient is tachycardic on presentation and blood pressures on the lower side with elevated lactic acid and treated for septic shock. 1. Nonoliguric acute kidney injury on top of chronic kidney disease stage III with baseline creatinine around 1.4 mg/dL likely secondary to prerenal azotemia in the setting of intravascular volume depletion, sepsis versus obstructive nephropathy in the setting of urinary retention. 2. Hyperkalemia likely secondary to obstructive nephropathy and acute kidney injury. 3. Mild hyponatremia likely hypovolemia, resolved. 4. Sepsis. 5. Hypertension. 6. Hyperlipidemia. 7. Hypothyroidism. Plan. -Renal function within normal range, creatinine is 0.9 mg/dL and patient remains nonoliguric with urine output of 2.6 L in the last 24 hours and ins and outs significant for 1.7 L negative. Patient reports that he has been eating and drinking well. -I will continue the fluids for today as patient is getting CT with contrast for renal lesion evaluation. -CT abdomen pelvis showed possible renal lesions of cystic/proteinaceous and concern for renal mass. Patient needs renal mass protocol CT follow-up. I will order a CT scan with renal protocol for evaluation of her renal lesion. -renal ultrasound renal ultrasound significant for bilateral renal echogenicity. Right kidney atrophic of 6 cm and the left kidney 9.9 cm without any hydronephrosis. RIGHT kidney with multiple hypoechoic areas and also left kidney with 5.5 cm hypoechoic lesions likely cystic but needs follow-up with CT. Urinary bladder with mild distention. -Hypokalemia, replaced with 20 mEq of potassium chloride. -Avoid nephrotoxins including NSAIDs and contrast. -Daily renal function panel. -Continue on ceftriaxone for possible sepsis. -Hypertension: Blood pressure is optimally controlled and currently on amlodipine 10 mg p.o. daily. -Monitor strict I's and O's. Orders Orders Laboratory: RENAL PNL (Order): ROUTINE, 04/08/2021 05:00 EST MAGNESIUM LEVEL (Order): ROUTINE, 04/08/2021 05:00 EST. Subjective The patient was seen and examined. No acute event overnight. Denies any complaints. Review of Systems GENERAL: No fever/chills. RESPIRATORY: Negative for cough, wheezing or shortness of breath. CARDIOVASCULAR: Negative for chest pain or palpitations. GI: Negative for abdominal pain, diarrhea, nausea, vomiting. : Negative for dysuria and hematuria. Health Status Medications (24) Active Scheduled: (13) AMLODIPINE 10MG TAB 10 mg 1 tabs, ORAL, QHS ATORVASTATIN 10MG TAB 10 mg 1 tabs, ORAL, QHS CEFTRIAXONE 1 g 50 mL, IV Piggyback, [id number] CHOLECALCIFEROL 1000 Intl Unit (25mcg) TAB 50 mcg 2 tabs, ORAL, DAILY CLOZAPINE 100MG TAB 100 mg 1 tabs, ORAL, DAILY CLOZAPINE 100MG TAB 200 mg 2 tabs, ORAL, QHS DOCUSATE SODIUM 100MG CAPSULE 100 mg 1 caps, ORAL, BID ENOXAPARIN 40MG/0.4ML INJ 40 mg 0.4 mL, Subcutaneous, QHS HUMAN LISPRO Mild Scale, Subcutaneous, QIDWMHS LEVOTHYROXINE 50MCG TABLET 50 mcg 1 tabs, ORAL, DAILY BEFORE BREAKFAST PANTOPRAZOLE 40MG TAB 40 mg 1 tabs, ORAL, DAILY SODIUM CHLORIDE SYR/VIAL 10ML 3 mL, IV Push, [id number] TAMSULOSIN 0.4MG CAP 0.4 mg 1 caps, ORAL, BID Continuous: (0) PRN: (11) ACETAMINOPHEN 325 MG TAB 650 mg 2 tabs, ORAL, [id number] ACETAMINOPHEN 325 MG TAB 650 mg 2 tabs, ORAL, [id number] ALBUTEROL 0.083% AEROSOL 2.5mg/3ML 2.5 mg 3 mL, Inhalation, [id number] RESPIRATORY DEXTROSE 50% 50ML SYRINGE/VIAL 12.5 g 25 mL, IV Push, PRN DEXTROSE 50% 50ML SYRINGE/VIAL 25 g 50 mL, IV Push, PRN GLUCAGON 1MG INJ 1 mg, IM, PRN GLUCOSE GEL 15GM/42ML 15 g 1 packets, ORAL, PRN GLUCOSE GEL 15GM/42ML 30 g 2 packets, ORAL, PRN SODIUM CHLORIDE NASAL SPRAY 45ML 2 sprays, Intranasal, QID SODIUM CHLORIDE SYR/VIAL 10ML 3 mL, IV Push, PRN ZOLPIDEM 2.5MG/ 0.5 TABLET 2.5 mg 1 EA, ORAL, QHS/[id number] Allergies: Allergic Reactions (Selected) No Known Allergies Objective Vital Signs (last 24 hrs) Last Charted Heart Rate Peripheral 95 bpm (APR 08 07:00) Resp Rate 16 br/min (APR 08 07:00) SBP 130 mmHg (APR 08 06:59) DBP 76 mmHg (APR 08 06:59) GENERAL: NAD H (more content not included)... Normal [facility] Progress Note-Physician Patient: ALLAN LARA Age: 70 years Sex: Male : 1950 Associated Diagnoses: None Author: GARRETT KAUFFMAN, ROLANDO Beltran PROGRESS NOTE Impression and plan: Sepsis, on IV Rocephin, Zosyn was dcd, ID on board HAYLIE, is better now, c/w IVF, monitor BMP Hypokalemia, better now, monitor and replace K+ Hyperkalemia, better now, monitor BMP Acute urinary retention, check PSA, c/w Flomax, ? urology consult Interval History: 1. 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 Health Status Current medications: Medications (25) Active Scheduled: (13) AMLODIPINE 10MG TAB 10 mg 1 tabs, ORAL, QHS ATORVASTATIN 10MG TAB 10 mg 1 tabs, ORAL, QHS CEFTRIAXONE 1 g 50 mL, IV Piggyback, [id number] CHOLECALCIFEROL 1000 Intl Unit (25mcg) TAB 50 mcg 2 tabs, ORAL, DAILY CLOZAPINE 100MG TAB 100 mg 1 tabs, ORAL, DAILY CLOZAPINE 100MG TAB 200 mg 2 tabs, ORAL, QHS DOCUSATE SODIUM 100MG CAPSULE 100 mg 1 caps, ORAL, BID ENOXAPARIN 40MG/0.4ML INJ 40 mg 0.4 mL, Subcutaneous, QHS HUMAN LISPRO Mild Scale, Subcutaneous, QIDWMHS LEVOTHYROXINE 50MCG TABLET 50 mcg 1 tabs, ORAL, DAILY BEFORE BREAKFAST PANTOPRAZOLE 40MG TAB 40 mg 1 tabs, ORAL, DAILY SODIUM CHLORIDE SYR/VIAL 10ML 3 mL, IV Push, [id number] TAMSULOSIN 0.4MG CAP 0.4 mg 1 caps, ORAL, BID Continuous: (1) SODIUM CHLORIDE 0.9% 1,000 mL 1,000 mL, IV, 100 mL/hr PRN: (11) ACETAMINOPHEN 325 MG TAB 650 mg 2 tabs, ORAL, [id number] ACETAMINOPHEN 325 MG TAB 650 mg 2 tabs, ORAL, [id number] ALBUTEROL 0.083% AEROSOL 2.5mg/3ML 2.5 mg 3 mL, Inhalation, [id number] RESPIRATORY DEXTROSE 50% 50ML SYRINGE/VIAL 12.5 g 25 mL, IV Push, PRN DEXTROSE 50% 50ML SYRINGE/VIAL 25 g 50 mL, IV Push, PRN GLUCAGON 1MG INJ 1 mg, IM, PRN GLUCOSE GEL 15GM/42ML 15 g 1 packets, ORAL, PRN GLUCOSE GEL 15GM/42ML 30 g 2 packets, ORAL, PRN SODIUM CHLORIDE NASAL SPRAY 45ML 2 sprays, Intranasal, QID SODIUM CHLORIDE SYR/VIAL 10ML 3 mL, IV Push, PRN ZOLPIDEM 2.5MG/ 0.5 TABLET 2.5 mg 1 EA, ORAL, QHS/[id number] Physical Examination Vital Signs (last 24 hrs) Last Charted Heart Rate Peripheral 99 bpm (APR 07 19:00) Resp Rate 16 br/min (APR 07 19:00) SBP 140 mmHg (APR 07 19:00) DBP 76 mmHg (APR 07 19:00) Labs (Last four charted values) WBC H 11.2 (APR 06) H 25.6 (APR 05) Hgb 13.8 (APR 06) 16.7 (APR 05) Hct 41.2 (APR 06) 49.8 (APR 05) Plt 163 (APR 06) 259 (APR 05) Na 143 (APR 07) 140 (APR 06) L 132 (APR 05) K 3.8 (APR 07) L 3.4 (APR 06) 4.0 (APR 05) C 6.3 (APR 05) CO2 23.5 (APR 07) 23.0 (APR 06) 23.0 (APR 05) Cl H 113 (APR 07) H 112 (APR 06) 105 (APR 05) Cr 1.0 (APR 07) H 1.5 (APR 06) H 2.3 (APR 05) BUN 19 (APR 07) H 36 (APR 06) H 32 (APR 05) Glucose Random 96 (APR 07) H 122 (APR 06) H 325 (APR 05) Mg 2.1 (APR 07) Phos L 2.3 (APR 07) Ca L 7.9 (APR 07) L 8.1 (APR 06) 9.2 (APR 05) INR 1.0 (APR 05) Total CK 272 (APR 05) General: Mild distress. Eye: Normal conjunctiva. HENT: Normocephalic. Neck: Supple. Respiratory: Lungs are clear to auscultation. Cardiovascular: Normal rate, Regular rhythm. Gastrointestinal: Soft, Non-tender. Musculoskeletal: Normal strength. Integumentary: Warm. Neurologic: Alert. Psychiatric: Cooperative. Reason For Exam Renal lesions;OTHER REASON Report EXAMINATION: CT of the abdomen and pelvis without IV contrast REASON FOR EXAM: Renal lesions;OTHER REASON COMPARISON: Ultrasound April 05 TECHNIQUE: Axial CT scan of the abdomen and pelvis was obtained without intravenous contrast administration. Coronal and sagittal reformats were provided for further interpretation. This CT exam was performed using one or more of the following dose reduction techniques: Automated exposure control, Adjustment of the mA and/or kV according to patient size, Use of iterative reconstruction technique FINDINGS: The lack of intravenous contrast limits evaluation of solid organs. VISUALIZED LOWER THORAX: Bilateral linear and patchy dependent lung base opacities probably representing atelectasis. Heart is normal in size LIVER: No intrahepatic lesions. GALLBLADDER AND CBD: Multiple layering hyperdense stones. No evidence of acute gallbladder disease PANCREAS: Normal. SPLEEN: Not enlarged. ADRENAL GLANDS: Normal. KIDNEYS AND VISUALIZED URETERS: There is a dominant cystic left upper renal lesion transverse dimension 5.1 cm. There are right renal hilum and right posterior cystic renal lesions the largest of which posteriorly measures 6.6 cm transverse. There is a right-sided anterior exophytic lesion measuring 4.8 cm transverse with Hounsfield units of approximately 32. There is a nonobstructing 6 mm right-sided lower collecting system stone. BOWEL: Stomach, duodenum, small bowel unremarkable. Appendix is not specifically localized but the cecum region is unremarkable. Unremarkab (more content not included)... Normal [facility] RENAL PNLon 04-08-2021 Calcium [Mass/Vol] 9.3 mg/dL Normal 8.5-10.5 [facility] Comment on above: Performed By: #### 6 [id number], [id number] ####[facility] [id number] [place] [address] Medical Director: Herb Quiroz MD GFR AA >60 Normal [facility] Comment on above: Result Comment: Afri can Green[place]ic GFR Calc Medical judgement is necessary to interpret GFR. The calculated GFR may not accurately reflect renal status in patients >70 years, women, acutely ill hospitalized patients and patients with acute renal failure or known renal disease. The MDRD GFR formula is valid only for adults greater than 18 years of age. Note: Creatinine clearance (not GFR) should be used for drug dosing. Performed By: #### 6 [id number], [id number] ####[facility] [id number] [place] [address] Medical Director: Herb Quiroz MD Glomerular Filtration Rate >60 Normal [facility] Comment on above: Result Comment: Non GFR Calc Medical judgement is necessary to interpret GFR. The calculated GFR may not accurately reflect renal status in patients >70 years, women, acutely ill hospitalized patients and patients with acute renal failure or known renal disease. The MDRD GFR formula is valid only for adults greater than 18 years of age. Note: Creatinine clearance (not GFR) should be used for drug dosing. Performed By: #### 6 [id number], [id number] ####[facility] [id number] [place] [id number] Medical Director: Herb Quiroz MD Osmolality [Osmolality] 285 mosm/kg Normal 275-295 [facility] Comment on above: Performed By: #### 6 [id number], [id number] ####[facility] [id number] [place] [address] Medical Director: Herb Quiroz MD Urea nitrogen/Creatinine [Mass ratio] 14.0 mg/mg Normal [facility] Comment on above: Performed By: #### 6 [id number], [id number] ####[facility] [address] [place] [id number] Medical Director: Herb Quiroz MD Albumin [Mass/Vol] 2.5 g/dL Low 3.4-5.0 [facility] Comment on above: Performed By: #### 6 [id number], [id number] ####[facility] [address]qva[address]35 [place] [address] Medical Director: Herb Quiroz MD Calcium [Mass/Vol] 8.1 mg/dL Low 8.5-10.5 [facility] Comment on above: Performed By: #### 6 [id number], [id number] ####[facility] [address]us[address] [place], [place] [id number]) [phone] Director: Herb Quiroz MD Chloride [Moles/Vol] 111 mmol/L High 100-109 [facility] Comment on above: Performed By: #### 6 [id number], [id number] ####[facility] [address]fosejc[address] [place], [place] [id number]) [phone] Director: Herb Quiroz MD CO2 [Moles/Vol] 23.9 mmol/L Normal 21.0-32.0 [facility] Comment on above: Performed By: #### 6 [id number], [id number] ####[facility] Afoestrm27144 [place] [address] Medical Director: Herb Quiroz MD Creatinine [Mass/Vol] 0.9 mg/dL Normal 0.7-1.3 [facility] Comment on above: Performed By: #### 6 [id number], [id number] ####[facility] Q[address]ounag88740 [place], [place] [id number]) [phone] Director: Herb Quiroz MD Glucose [Mass/Vol] 107 mg/dL High 72-100 [facility] Comment on above: Result Comment: Nori puncture should occur prior to sulfasalazine administration due to the potential for falsely depressed results. Venipuncture should occur prior to sulfapyridine administration due to the potential falsely elevated results. Baseline assay values before administration of sulfasalazine and sulfapyridine therapy would not be affected. Performed By: #### 6 [id number], [id number] ####[facility] [address]wt[address]fck35049 [place], [place] [id number]) [phone] Director: Herb Quiroz MD Phosphate [Mass/Vol] 2.6 mg/dL Normal 2.5-4.9 [facility] Comment on above: Performed By: #### 6 [id number], [id number] ####[facility] Rhmyftkh56785 [place], [place] [id number]) [phone] Director: Herb Quiroz MD Potassium [Moles/Vol] 3.5 mmol/L Normal 3.5-5.1 [facility] Comment on above: Performed By: #### 6 [id number], [id number] ####[facility] [address]qdwgcal16417 [place] [address] Medical Director: Herb Quiroz MD Sodium [Moles/Vol] 143 mmol/L Normal 135-145 [facility] Comment on above: Performed By: #### 6 [id number], [id number] ####[facility] [address] [place] [address] Medical Director: Herb Quiroz MD Urea nitrogen [Mass/Vol] 12 mg/dL Normal 10-20 [facility] Comment on above: Performed By: #### 6 [id number], [id number] ####[facility] Ypuuxeoc91526 [place] [address] Medical Director: Herb Quiroz MD Utilization Review Noteon Utilization Review Note Verified admit t hru the portal #[id number] faxed 04/08/2021 [facility] APPROVAL FAX RECV'D APRROVED INPT DRG. WILL NOTIFY WHEN UPDATE DUE. TH Normal [facility] MG LEVELon 04-07-2021 Magnesium [Mass/Vol] 2.1 mg/dL Normal 1.6-2.6 [facility] Comment on above: Performed By: #### 1 [id number] ####[facility] [address]zdgsq42772 [place] [address] Medical Director: Herb Quiroz MD Nursing Clinical Noteon Nursing Clinical Note 0707 Report receiv ed from Ana Luisa BEEBE. 0805 Patient resting comfortably in bed, no pain or distress, breathing even and unlabored, call light within reach, denies any needs, bed alarm activated, safety maintained. 1200 Patient sitting up in chair, legs elevated bilaterally, no pain or distress, breathing even and unlabored, chair alarm activated, call light within reach, denies any needs, safety maintained. 1540 Patient up from chair and into bed, tolerated well. Patient resting comfortably in bed, no pain or distress, breathing even and unlabored, call light within reach, denies any needs, bed alarm activated, safety maintained. Normal [facility] Nursing Clinical Note 2314-Report receiv ed from Marley BEEBE. Pt in bed, resting with eyes closed. Bed alarm on. 0100-Pt in bed, Bed alarm on. Pt denies pain or discomfort. Pt alert to self and place confused to time. IV infusing without difficulty. 0700-Hourly rounding through out the night, Romero peres. Bed alarm on. No complaints noted Normal [facility] PLATELET ONLYon 04-07-2021 Platelet 160 X 1000 Normal 150-450 [facility] Comment on above: Order Comment: PLT c ount on Day 2 after initiation of Heparin or Lovenox, Notify Physician if PLT Count less than 100,000 Performed By: #### 9 [id number], [id number] #### [facility] [address] [place] [address] Audioprosthologist: Herb Quiroz MD POC Glucoseon 04-07-2021 Glucose [Mass/Vol] 152 mg/dL High 72-100 [facility] Comment on above: Performed By: #### 9 [id number], [id number] #### [facility] [address] [place], [place] [id number] Audioprosthologist: Herb Quiroz MD Glucose [Mass/Vol] 144 mg/dL High 72-100 [facility] Comment on above: Performed By: #### 1 [id number], [id number], [id number] #### [facility] [address] [place], [place] [id number] Audioprosthologist: Herb Quiroz MD Glucose [Mass/Vol] 109 mg/dL High 72-100 [facility] Comment on above: Performed By: #### 1 [id number] #### [facility] [address] [place] [address] Audioprosthologist: Herb Quiroz MD Progress Note-Physicianon Progress Note-Physician Patient: ALLAN LARA Age: 70 years Sex: Male : 1950 Associated Diagnoses: Tachycardia; Severe sepsis; Nausea; Multiple falls; Kidney neoplasm; Hyperlipemia; Hyperkalemia; HTN (hypertension); Diabetes mellitus; Dementia; Dehydration; COVID-19; Acute renal failure (ARF); Acute diarrhea Author: SANTI KAUFFMAN, [facility] INTERNAL MEDICINE/INFECTIOUS DISEASE Basic Information Admission information: 1. Altered mental status metabolic encephalopathy 2. Low perfusion state as manifested by acute kidney injury on admission which has now resolved. 3. Bibasilar atelectasis Plan 1. Discontinue Zosyn 2. IV ceftriaxone 3. On discharge no long-term antibiotics . Today's Information: Patient more awake more alert. No fever. No vomiting or diarrhea. . Review of Systems Constitutional: Weakness, Fatigue, Decreased activity. Eye: Negative. Ear/Nose/Mouth/Throa t: Negative. Respiratory: No shortness of breath, No cough. Cardiovascular: Negative. Gastrointestinal: No vomiting, No diarrhea. Genitourinary: No hematuria, No change in urine stream. Hematology/Lymphatic s: No bruising tendency, No bleeding tendency, No swollen lymph glands. Endocrine: Negative. Immunologic: Negative. Musculoskeletal: Negative. Integumentary: Negative. Neurologic: Alert and oriented X4. Psychiatric: Negative. ROS reviewed as documented in chart Health Status Allergies: Allergies (1) Active Reaction No Known Allergies None Documented Current medications: Medications (25) Active Scheduled: (13) AMLODIPINE 10MG TAB 10 mg 1 tabs, ORAL, QHS ATORVASTATIN 10MG TAB 10 mg 1 tabs, ORAL, QHS CHOLECALCIFEROL 1000 Intl Unit (25mcg) TAB 50 mcg 2 tabs, ORAL, DAILY CLOZAPINE 100MG TAB 100 mg 1 tabs, ORAL, DAILY CLOZAPINE 100MG TAB 200 mg 2 tabs, ORAL, QHS DOCUSATE SODIUM 100MG CAPSULE 100 mg 1 caps, ORAL, BID ENOXAPARIN 40MG/0.4ML INJ 40 mg 0.4 mL, Subcutaneous, QHS HUMAN LISPRO Mild Scale, Subcutaneous, QIDWMHS LEVOTHYROXINE 50MCG TABLET 50 mcg 1 tabs, ORAL, DAILY BEFORE BREAKFAST PANTOPRAZOLE 40MG TAB 40 mg 1 tabs, ORAL, DAILY PIPERACILLIN-TAZOBAC PEREZ 3.375 g 50 mL, IV Piggyback, [id number] SODIUM CHLORIDE SYR/VIAL 10ML 3 mL, IV Push, [id number] TAMSULOSIN 0.4MG CAP 0.4 mg 1 caps, ORAL, BID Continuous: (1) SODIUM CHLORIDE 0.9% 1,000 mL 1,000 mL, IV, 100 mL/hr PRN: (11) ACETAMINOPHEN 325 MG TAB 650 mg 2 tabs, ORAL, [id number] ACETAMINOPHEN 325 MG TAB 650 mg 2 tabs, ORAL, [id number] ALBUTEROL 0.083% AEROSOL 2.5mg/3ML 2.5 mg 3 mL, Inhalation, [id number] RESPIRATORY DEXTROSE 50% 50ML SYRINGE/VIAL 12.5 g 25 mL, IV Push, PRN DEXTROSE 50% 50ML SYRINGE/VIAL 25 g 50 mL, IV Push, PRN GLUCAGON 1MG INJ 1 mg, IM, PRN GLUCOSE GEL 15GM/42ML 15 g 1 packets, ORAL, PRN GLUCOSE GEL 15GM/42ML 30 g 2 packets, ORAL, PRN SODIUM CHLORIDE NASAL SPRAY 45ML 2 sprays, Intranasal, QID SODIUM CHLORIDE SYR/VIAL 10ML 3 mL, IV Push, PRN ZOLPIDEM 2.5MG/ 0.5 TABLET 2.5 mg 1 EA, ORAL, QHS/[id number] Physical Examination VS/Measurements Vital Signs (last 24 hrs) Last Charted Heart Rate Peripheral H 112bpm (APR 07 13:07) Resp Rate 16 br/min (APR 07 13:06) SBP 125 mmHg (APR 07 13:01) DBP 75 mmHg (APR 07 13:01) General: No acute distress. Eye: Pupils are equal, round and reactive to light, Normal conjunctiva. HENT: Normocephalic, Oral mucosa is moist. Neck: Supple, Non-tender, No carotid bruit, No jugular venous distention, No lymphadenopathy. Respiratory: Respirations are non-labored, Breath sounds are equal, Symmetrical chest wall expansion, Good air entry bilaterally. Cardiovascular: Normal rate, Regular rhythm, No gallop. Gastrointestinal: Soft, Non-tender, Non-distended, Normal bowel sounds, No organomegaly. Genitourinary: No costovertebral angle tenderness, No inguinal tenderness. Lymphatics: No lymphadenopathy neck, axilla, groin. Musculoskeletal: No tenderness, No swelling, No deformity. Integumentary: Warm. Neurologic: Alert, No focal deficits. Psychiatric: Cooperative. Review / Management Results review: Labs (Last four charted values) WBC H 11.2 (APR 06) H 25.6 (APR 05) Hgb 13.8 (APR 06) 16.7 (APR 05) Hct 41.2 (APR 06) 49.8 (APR 05) Plt 163 (APR 06) 259 (APR 05) Na 143 (APR 07) 140 (APR 06) L 132 (APR 05) K 3.8 (APR 07) L 3.4 (APR 06) 4.0 (APR 05) C 6.3 (APR 05) CO2 23.5 (APR 07) 23.0 (APR 06) 23.0 (APR 05) Cl H 113 (APR 07) H 112 (APR 06) 105 (APR 05) Cr 1.0 (APR 07) H 1.5 (APR 06) H 2.3 (APR 05) BUN 19 (APR 07) H 36 (APR 06) H 32 (APR 05) Glucose Random 96 (APR 07) H 122 (APR 06) H 325 (APR 05) Mg 2.1 (APR 07) Phos L 2.3 (APR 07) Ca L 7.9 (APR 07) L 8.1 (APR 06) 9.2 (APR 05) INR 1.0 (APR 05) Total CK 272 (APR 05) . Impression and Plan Diagnosis Tachycardia - [id number]-KS R00.0, Medical. Severe sepsis - GPO53-YH R65.20, Medical. Nausea - PNED [id number], Medical. Multiple falls - PNED [id number] (more content not included)... Normal [facility] Progress Note-Physician Patient: ALLAN LARA Age: 70 years Sex: Male : 1950 Associated Diagnoses: None Author: ABRAHAM KAUFFMAN, [facility] Nephrology Impression and Plan This is a 69-year-old white male with past medical history of cognitive decline, schizoaffective disorder, hypertension, hyperlipidemia hypothyroidism presented to the hospital with altered mental status. Patient was lethargic and combative. Patient was admitted to the hospital a year ago for pneumonia. Now presented with altered mental status and patient was found to have elevated kidney function with creatinine up to 2.3 mg/dL and serum potassium of 6.3 and lactic acidosis with a lactic acid of 3.6 and nephrology consulted for further evaluation management. Patient is tachycardic on presentation and blood pressures on the lower side with elevated lactic acid and treated for septic shock. 1. Nonoliguric acute kidney injury on top of chronic kidney disease stage III with baseline creatinine around 1.4 mg/dL likely secondary to prerenal azotemia in the setting of intravascular volume depletion, sepsis versus obstructive nephropathy in the setting of urinary retention. 2. Hyperkalemia likely secondary to obstructive nephropathy and acute kidney injury. 3. Mild hyponatremia likely hypovolemia, resolved. 4. Sepsis. 5. Hypertension. 6. Hyperlipidemia. 7. Hypothyroidism. Plan. -Renal function significantly improved, creatinine is down to 1.0 mg/dL from 9.5 mg/dL and urine output is 1.3 L in the last 24 hours. Patient is currently on normal saline at 100 cc/h. -CT abdomen pelvis showed possible renal lesions of cystic/proteinaceous and concern for renal mass. Patient needs renal mass protocol CT follow-up. Patient now recovering acute kidney injury, I will hold off on CT scan at this time and likely will plan in next 2 to 3 days. If planning for discharge will consider as outpatient. -renal ultrasound renal ultrasound significant for bilateral renal echogenicity. Right kidney atrophic of 6 cm and the left kidney 9.9 cm without any hydronephrosis. RIGHT kidney with multiple hypoechoic areas and also left kidney with 5.5 cm hypoechoic lesions likely cystic but needs follow-up with CT. Urinary bladder with mild distention. -Hypokalemia, resolved. -Patient volume status significantly improved, I will cut down his IV fluids to 60 cc/h. -Avoid nephrotoxins including NSAIDs and contrast. -Daily renal function panel. -Hypertension: Blood pressure is optimally controlled and currently on amlodipine 10 mg p.o. daily. -Monitor strict I's and O's. Orders Orders Laboratory: RENAL PNL (Order): ROUTINE, 04/08/2021 05:00 EST MAGNESIUM LEVEL (Order): ROUTINE, 04/08/2021 05:00 EST. Subjective The patient was seen and examined. No acute event overnight. Denies any complaints. Review of Systems GENERAL: No fever/chills. RESPIRATORY: Negative for cough, wheezing or shortness of breath. CARDIOVASCULAR: Negative for chest pain or palpitations. GI: Negative for abdominal pain, diarrhea, nausea, vomiting. : Negative for dysuria and hematuria. Health Status Medications (25) Active Scheduled: (13) AMLODIPINE 10MG TAB 10 mg 1 tabs, ORAL, QHS ATORVASTATIN 10MG TAB 10 mg 1 tabs, ORAL, QHS CHOLECALCIFEROL 1000 Intl Unit (25mcg) TAB 50 mcg 2 tabs, ORAL, DAILY CLOZAPINE 100MG TAB 100 mg 1 tabs, ORAL, DAILY CLOZAPINE 100MG TAB 200 mg 2 tabs, ORAL, QHS DOCUSATE SODIUM 100MG CAPSULE 100 mg 1 caps, ORAL, BID ENOXAPARIN 40MG/0.4ML INJ 40 mg 0.4 mL, Subcutaneous, QHS HUMAN LISPRO Mild Scale, Subcutaneous, QIDWMHS LEVOTHYROXINE 50MCG TABLET 50 mcg 1 tabs, ORAL, DAILY BEFORE BREAKFAST PANTOPRAZOLE 40MG TAB 40 mg 1 tabs, ORAL, DAILY PIPERACILLIN-TAZOBAC PEREZ 3.375 g 50 mL, IV Piggyback, [id number] SODIUM CHLORIDE SYR/VIAL 10ML 3 mL, IV Push, [id number] TAMSULOSIN 0.4MG CAP 0.4 mg 1 caps, ORAL, BID Continuous: (1) SODIUM CHLORIDE 0.9% 1,000 mL 1,000 mL, IV, 100 mL/hr PRN: (11) ACETAMINOPHEN 325 MG TAB 650 mg 2 tabs, ORAL, F0JEOKE ACETAMINOPHEN 325 MG TAB 650 mg 2 tabs, ORAL, [id number] ALBUTEROL 0.083% AEROSOL 2.5mg/3ML 2.5 mg 3 mL, Inhalation, Q5OYKIV RESPIRATORY DEXTROSE 50% 50ML SYRINGE/VIAL 12.5 g 25 mL, IV Push, PRN DEXTROSE 50% 50ML SYRINGE/VIAL 25 g 50 mL, IV Push, PRN GLUCAGON 1MG INJ 1 mg, IM, PRN GLUCOSE GEL 15GM/42ML 15 g 1 packets, ORAL, PRN GLUCOSE GEL 15GM/42ML 30 g 2 packets, ORAL, PRN SODIUM CHLORIDE NASAL SPRAY 45ML 2 sprays, Intranasal, QID SODIUM CHLORIDE SYR/VIAL 10ML 3 mL, IV Push, PRN ZOLPIDEM 2.5MG/ 0.5 TABLET 2.5 mg 1 EA, ORAL, QHS/[id number] Allergies: Allergic Reactions (Selected) No Known Allergies Objective Vital Signs (last 24 hrs) Last Charted Heart Rate Peripheral 94 bpm (APR 07 07:20) Resp Rate 16 br/min (APR 07 07:20) SBP 128 mmHg (APR 07 08:19) DBP 76 mmHg (APR 07 08:19) GENERAL (more content not included)... Normal [facility] Progress Note-Physician Patient: ALLAN LARA Age: 70 years Sex: Male : 1950 Associated Diagnoses: None Author: GARRETT KAUFFMAN, ROLANDO Beltran PROGRESS NOTE Impression and plan: HAYLIE, is slowly improving, c/w IVF, Hypokalemia, replace and monitor K+ Hyperkalemia, better now, monitor BMP Sepsis, c/w IV Zosyn, ID on board Acute urinary retention, check PSA, c/w FLomax, ? urology consult Interval History: 1. 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 Review of Systems 10 organs ROS pertinent to as mentioned in history Health Status Current medications: Medications (25) Active Scheduled: (13) AMLODIPINE 10MG TAB 10 mg 1 tabs, ORAL, QHS ATORVASTATIN 10MG TAB 10 mg 1 tabs, ORAL, QHS CHOLECALCIFEROL 1000 Intl Unit (25mcg) TAB 50 mcg 2 tabs, ORAL, DAILY CLOZAPINE 100MG TAB 100 mg 1 tabs, ORAL, DAILY CLOZAPINE 100MG TAB 200 mg 2 tabs, ORAL, QHS DOCUSATE SODIUM 100MG CAPSULE 100 mg 1 caps, ORAL, BID ENOXAPARIN 40MG/0.4ML INJ 40 mg 0.4 mL, Subcutaneous, QHS HUMAN LISPRO Mild Scale, Subcutaneous, QIDWMHS LEVOTHYROXINE 50MCG TABLET 50 mcg 1 tabs, ORAL, DAILY BEFORE BREAKFAST PANTOPRAZOLE 40MG TAB 40 mg 1 tabs, ORAL, DAILY PIPERACILLIN-TAZOBAC PEREZ 3.375 g 50 mL, IV Piggyback, [id number] SODIUM CHLORIDE SYR/VIAL 10ML 3 mL, IV Push, [id number] TAMSULOSIN 0.4MG CAP 0.4 mg 1 caps, ORAL, BID Continuous: (1) SODIUM CHLORIDE 0.9% 1,000 mL 1,000 mL, IV, 100 mL/hr PRN: (11) ACETAMINOPHEN 325 MG TAB 650 mg 2 tabs, ORAL, [id number] ACETAMINOPHEN 325 MG TAB 650 mg 2 tabs, ORAL, [id number] ALBUTEROL 0.083% AEROSOL 2.5mg/3ML 2.5 mg 3 mL, Inhalation, [id number] RESPIRATORY DEXTROSE 50% 50ML SYRINGE/VIAL 12.5 g 25 mL, IV Push, PRN DEXTROSE 50% 50ML SYRINGE/VIAL 25 g 50 mL, IV Push, PRN GLUCAGON 1MG INJ 1 mg, IM, PRN GLUCOSE GEL 15GM/42ML 15 g 1 packets, ORAL, PRN GLUCOSE GEL 15GM/42ML 30 g 2 packets, ORAL, PRN SODIUM CHLORIDE NASAL SPRAY 45ML 2 sprays, Intranasal, QID SODIUM CHLORIDE SYR/VIAL 10ML 3 mL, IV Push, PRN ZOLPIDEM 2.5MG/ 0.5 TABLET 2.5 mg 1 EA, ORAL, QHS/[id number] Physical Examination Vital Signs (last 24 hrs) Last Charted Heart Rate Peripheral 100 bpm (APR 06 12:03) Resp Rate 18 br/min (APR 06 12:02) SBP 114 mmHg (APR 06 12:) DBP 73 mmHg (APR 06 12:) BMI 21.8 (APR 05 14:40) Labs (Last four charted values) WBC H 11.2 (APR 06) H 25.6 (APR 05) Hgb 13.8 (APR 06) 16.7 (APR 05) Hct 41.2 (APR 06) 49.8 (APR 05) Plt 163 (APR 06) 259 (APR 05) Na 140 (APR 06) L 132 (APR 05) K L 3.4 (APR 06) 4.0 (APR 05) C 6.3 (APR 05) CO2 23.0 (APR 06) 23.0 (APR 05) Cl H 112 (APR 06) 105 (APR 05) Cr H 1.5 (APR 06) H 2.3 (APR 05) BUN H 36 (APR 06) H 32 (APR 05) Glucose Random H 122 (APR 06) H 325 (APR 05) Ca L 8.1 (APR 06) 9.2 (APR 05) INR 1.0 (APR 05) Total CK 272 (APR 05) General: Mild distress. Eye: Normal conjunctiva. HENT: Normocephalic. Neck: Supple. Respiratory: Lungs are clear to auscultation. Cardiovascular: Normal rate, Regular rhythm. Gastrointestinal: Soft, Non-tender. Musculoskeletal: Normal strength. Integumentary: Warm. Neurologic: Alert. Psychiatric: Cooperative. Normal [facility] RENAL PNLon 04-07-2021 Calcium [Mass/Vol] 9.3 mg/dL Normal 8.5-10.5 [facility] Comment on above: Performed By: #### 9 [id number], [id number] #### [facility] [address] [place] [address] Audioprosthologist: Herb Quiroz MD GFR AA >60 Normal [facility] Comment on above: Result Comment: Afri can Greenlandic GFR Calc Medical judgement is necessary to interpret GFR. The calculated GFR may not accurately reflect renal status in patients >70 years, women, acutely ill hospitalized patients and patients with acute renal failure or known renal disease. The MDRD GFR formula is valid only for adults greater than 18 years of age. Note: Creatinine clearance (not GFR) should be used for drug dosing. Performed By: #### 9 [id number], [id number] #### [facility] [address] [place] [address] Audioprosthologist: Herb Quiroz MD Glomerular Filtration Rate >60 Normal [facility] Comment on above: Result Comment: Non GFR Calc Medical judgement is necessary to interpret GFR. The calculated GFR may not accurately reflect renal status in patients >70 years, women, acutely ill hospitalized patients and patients with acute renal failure or known renal disease. The MDRD GFR formula is valid only for adults greater than 18 years of age. Note: Creatinine clearance (not GFR) should be used for drug dosing. Performed By: #### 9 [id number], [id number] #### [facility] [address] [place] [address] Audioprosthologist: Herb Quiroz MD Osmolality [Osmolality] 287 mosm/kg Normal 275-295 [facility] Comment on above: Performed By: #### 9 [id number], [id number] #### [facility] [address] [place] [address] Audioprosthologist: Herb Quiroz MD Urea nitrogen/Creatinine [Mass ratio] 18.8 mg/mg Normal [facility] Comment on above: Performed By: #### 9 [id number], [id number] #### [facility] [address] [place] [address] Audioprosthologist: Herb Quiroz MD Albumin [Mass/Vol] 2.3 g/dL Low 3.4-5.0 [facility] Comment on above: Performed By: #### 9 [id number], [id number] #### [facility] [address] [place] [address] Audioprosthologist: Herb Quiroz MD Calcium [Mass/Vol] 7.9 mg/dL Low 8.5-10.5 [facility] Comment on above: Performed By: #### 9 [id number], [id number] #### [facility] [address] [place] [address] Audioprosthologist: Herb Quiroz MD Chloride [Moles/Vol] 113 mmol/L High 100-109 [facility] Comment on above: Performed By: #### 9 [id number], [id number] #### [facility] [address] [place] [address] Audioprosthologist: Herb Quiroz MD CO2 [Moles/Vol] 23.5 mmol/L Normal 21.0-32.0 [facility] Comment on above: Performed By: #### 9 [id number], [id number] #### [facility] [address] [place] [address] Audioprosthologist: Herb Quiroz MD Creatinine [Mass/Vol] 1.0 mg/dL Normal 0.7-1.3 [facility] Comment on above: Performed By: #### 9 [id number], [id number] #### [facility] [address] [place] [address] Audioprosthologist: Herb Quiroz MD Glucose [Mass/Vol] 96 mg/dL Normal 72-100 [facility] Comment on above: Result Comment: Nori puncture should occur prior to sulfasalazine administration due to the potential for falsely depressed results. Venipuncture should occur prior to sulfapyridine administration due to the potential falsely elevated results. Baseline assay values before administration of sulfasalazine and sulfapyridine therapy would not be affected. Performed By: #### 9 [id number], [id number] #### [facility] [address] [place] [address] Audioprosthologist: Herb Quiroz MD Phosphate [Mass/Vol] 2.3 mg/dL Low 2.5-4.9 [facility] Comment on above: Performed By: #### 9 [id number], [id number] #### [facility] [address] [place] [address] Audioprosthologist: Herb Quiroz MD Potassium [Moles/Vol] 3.8 mmol/L Normal 3.5-5.1 [facility] Comment on above: Performed By: #### 9 [id number], [id number] #### [facility] [address] [place] [address] Audioprosthologist: Herb Quiroz MD Sodium [Moles/Vol] 143 mmol/L Normal 135-145 [facility] Comment on above: Performed By: #### 9 [id number], 117140 #### [facility] [address] [place] [address] Audioprosthologist: Herb Quiroz MD Urea nitrogen [Mass/Vol] 19 mg/dL Normal 10-20 [facility] Comment on above: Performed By: #### 9 [id number], [id number] #### [facility] [address] [place] [address] Audioprosthologist: Herb Quiroz MD C URINEon 04-06-2021 C URINE [facility] [address] [place] [id number] Name: ALLAN LARA : 1950 Admitting ANAIS GAMBOA DO Provider: Gender: Male [facility] [id number] Number: Location: 2DMO; D242; 01 Admit 04/05/2021 Date: Discharge Date: Microbiology PROCEDURE: C URINE SOURCE: CLEAN CATCH BODY SITE: COLLECTED DATE/TIME: 04/05/2021 05:25 EST RECEIVED DATE/TIME: 04/05/2021 07:05 EST START DATE/TIME: 04/05/2021 07:05 EST FREE TEXT SOURCE: ORDERING PHYSICIAN: ANAIS GAMBOA DO FINAL REPORTS Final Report [] Verified Date/Time: 04/06/2021 08:06 EST No significant growth. L=Low, H= High, *= Abnormal, C=Critical, f=Footnote, c=Corrected, i=Interp Data Name: ALLAN LARA Print Date/ 04/06/2021 08:06 EST Time: Normal [facility] Comment on above: Performed By: #### 1 [id number] ####[facility] [id number] [place] [address] Medical Director: Herb Quiroz MD COMPMETAon 04-06-2021 Albumin/Globulin [Mass ratio] 0.8 {ratio} [facility] Comment on above: Performed By: #### 1 [id number] #### [facility] [address] [place] [address] Audioprosthologist: Herb Quiroz MD GFR AA 57 [facility] Comment on above: Result Comment: Afri can Greenlandic GFR Calc Medical judgement is necessary to interpret GFR. The calculated GFR may not accurately reflect renal status in patients >70 years, women, acutely ill hospitalized patients and patients with acute renal failure or known renal disease. The MDRD GFR formula is valid only for adults greater than 18 years of age. Note: Creatinine clearance (not GFR) should be used for drug dosing. Performed By: #### 1 [id number] #### [facility] [address] [place] [address] Audioprosthologist: Herb Quiroz MD Globulin (S) [Mass/Vol] 3.4 g/dL Normal [facility] Comment on above: Performed By: #### 1 [id number] #### [facility] [address] [place] [address] Audioprosthologist: Herb Quiroz MD Glomerular Filtration Rate 47 mL/min/1.73m? Normal [facility] Comment on above: Result Comment: Non GFR Calc Medical judgement is necessary to interpret GFR. The calculated GFR may not accurately reflect renal status in patients >70 years, women, acutely ill hospitalized patients and patients with acute renal failure or known renal disease. The MDRD GFR formula is valid only for adults greater than 18 years of age. Note: Creatinine clearance (not GFR) should be used for drug dosing. Performed By: #### 1 [id number] #### [facility] [address] [place] [address] Audioprosthologist: Herb Quiroz MD Osmolality [Osmolality] 289 mosm/kg Normal 275-295 [facility] Comment on above: Performed By: #### 1 [id number] #### [facility] [address] [place] [address] Audioprosthologist: Herb Quiroz MD Urea nitrogen/Creatinine [Mass ratio] 24.5 mg/mg Normal [facility] Comment on above: Performed By: #### 1 [id number] #### [facility] [address] [place] [address] Audioprosthologist: Herb Quiroz MD Albumin [Mass/Vol] 2.7 g/dL Low 3.4-5.0 [facility] Comment on above: Performed By: #### 1 [id number] #### [facility] [address] [place] [address] Audioprosthologist: Herb Quiroz MD Alk Phos 53 unit/L Normal 45-117 [facility] Comment on above: Performed By: #### 1 [id number] #### [facility] [address] [place] [address] Audioprosthologist: Herb Quiroz MD Bilirubin [Mass/Vol] 0.55 mg/dL Normal 0.20-1.00 [facility] Comment on above: Result Comment: Use of this assay is not recommended for patients undergoing treatment with eltrombopag due to the potential for falsely elevated results. Performed By: #### 1 [id number] #### [facility] [address] [place] [address] Audioprosthologist: Herb Quiroz MD Calcium [Mass/Vol] 8.1 mg/dL Low 8.5-10.5 [facility] Comment on above: Performed By: #### 1 [id number] #### [facility] [address] [place] [address] Audioprosthologist: Herb Quiroz MD Chloride [Moles/Vol] 112 mmol/L High 100-109 [facility] Comment on above: Performed By: #### 1 [id number] #### [facility] [address] [place] [address] Audioprosthologist: Herb Quiroz MD CO2 [Moles/Vol] 23.0 mmol/L Normal 21.0-32.0 [facility] Comment on above: Performed By: #### 1 [id number] #### [facility] [address] [place] [address] Audioprosthologist: Herb Quiroz MD Creatinine [Mass/Vol] 1.5 mg/dL High 0.7-1.3 [facility] Comment on above: Performed By: #### 1 [id number] #### [facility] [address] [place] [address] Audioprosthologist: Herb Quiroz MD Glucose [Mass/Vol] 122 mg/dL High 72-100 [facility] Comment on above: Result Comment: Nori puncture should occur prior to sulfasalazine administration due to the potential for falsely depressed results. Venipuncture should occur prior to sulfapyridine administration due to the potential falsely elevated results. Baseline assay values before administration of sulfasalazine and sulfapyridine therapy would not be affected. Performed By: #### 1 [id number] #### [facility] [address] [place] [address] Audioprosthologist: Herb Quiroz MD GOT 14 unit/L Low 15-37 [facility] Comment on above: Result Comment: Nori puncture should occur prior to sulfasalazine and/or sulfapyridine administration due to the potential for falsely depressed results. Baseline assay values before administration of sulfasalazine and sulfapyridine therapy would not be affected. Performed By: #### 1 [id number] #### [facility] [address] [place] [address] Audioprosthologist: Herb Quiroz MD GPT 13 unit/L Low 16-61 [facility] Comment on above: Result Comment: Nori puncture should occur prior to sulfasalazine and/or sulfapyridine administration due to the potential for falsely depressed results. Baseline assay values before administration of sulfasalazine and sulfapyridine therapy would not be affected. Performed By: #### 1 [id number] #### [facility] [address] [place] [address] Audioprosthologist: Herb Quiroz MD Potassium [Moles/Vol] 3.4 mmol/L Low 3.5-5.1 [facility] Comment on above: Performed By: #### 1 [id number] #### [facility] [address] [place] [address] Audioprosthologist: Herb Quiroz MD Protein [Mass/Vol] 6.1 g/dL Normal 6.0-8.5 [facility] Comment on above: Performed By: #### 1 [id number] #### [facility] [address] [place] [address] Audioprosthologist: Herb Quiroz MD Sodium [Moles/Vol] 140 mmol/L Normal 135-145 [facility] Comment on above: Performed By: #### 1 [id number] #### [facility] [address] [place] [address] Audioprosthologist: Herb Quiroz MD Urea nitrogen [Mass/Vol] 36 mg/dL High 10-20 [facility] Comment on above: Performed By: #### 1 [id number] #### [facility] [address] [place] [address] Audioprosthologist: Herb Quiroz MD CT ABD PELVIS WO IV CONTRAST on 04-06-2021 CT ABD PELVIS WO IV CONTRAST EXAMINATION: CT of the abdomen and pelvis without IV contrast REASON FOR EXAM: Renal lesions;OTHER REASON COMPARISON: Ultrasound April 05 TECHNIQUE: Axial CT scan of the abdomen and pelvis was obtained without intravenous contrast administration. Coronal and sagittal reformats were provided for further interpretation. This CT exam was performed using one or more of the following dose reduction techniques: Automated exposure control, Adjustment of the mA and/or kV according to patient size, Use of iterative reconstruction technique FINDINGS: The lack of intravenous contrast limits evaluation of solid organs. VISUALIZED LOWER THORAX: Bilateral linear and patchy dependent lung base opacities probably representing atelectasis. Heart is normal in size LIVER: No intrahepatic lesions. GALLBLADDER AND CBD: Multiple layering hyperdense stones. No evidence of acute gallbladder disease PANCREAS: Normal. SPLEEN: Not enlarged. ADRENAL GLANDS: Normal. KIDNEYS AND VISUALIZED URETERS: There is a dominant cystic left upper renal lesion transverse dimension 5.1 cm. There are right renal hilum and right posterior cystic renal lesions the largest of which posteriorly measures 6.6 cm transverse. There is a right-sided anterior exophytic lesion measuring 4.8 cm transverse with Hounsfield units of approximately 32. There is a nonobstructing 6 mm right-sided lower collecting system stone. BOWEL: Stomach, duodenum, small bowel unremarkable. Appendix is not specifically localized but the cecum region is unremarkable. Unremarkable noncontrast large bowel appearance. Moderate retained stool. LYMPH NODES and MESENTERY: No pathologically enlarged retroperitoneal or mesenteric nodes. AORTA AND VASCULATURE: Scattered atheromatous changes throughout the abdominal aorta. No aneurysm URINARY BLADDER: Contracted around Jasso catheter REPRODUCTIVE ORGANS: Normal PERITONEUM: No ascites or free air ABDOMINAL WALL: Normal. MUSCULOSKELETAL STRUCTURES: No suspicious lytic or blastic lesions. Bilateral L5 chronic spondylolysis. Normal spinal alignment. Multilevel degenerative thoracic and spine changes. OTHER: N/A IMPRESSION: 1. No specific evidence of acute abnormality. 2. Bilateral renal lesions most of which appear cystic. A noncontrast study is an incomplete evaluation for possible renal mass. One of the right-sided renal lesions has Hounsfield units that could indicate a solid lesion although this could still represent a proteinaceous cyst. Renal mass protocol CT follow-up is recommended which would include IV contrast administration. 3. Cholelithiasis. 4. Lung base opacities probably atelectasis. 5. Bilateral L5 chronic spondylolysis. 6. Nonobstructing right renal stone. 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 Result Comment: Tech nologist: KATHIA ALBRIGHT Dictated By: ADRIANNA ST MD Signed By: ADRIANNA ST MD Signed Out: 04/06/21 13:40:21 Consult Reporton 04-06-2021 Consult Report Patient: ALLAN LARA Age: 70 years Sex: Male : 1950 Associated Diagnoses: None Author: ABRAHAM KAUFFMAN, [facility] Nephrology Impression and Plan This is a 69-year-old white male with past medical history of cognitive decline, schizoaffective disorder, hypertension, hyperlipidemia hypothyroidism presented to the hospital with altered mental status. Patient was lethargic and combative. Patient was admitted to the hospital a year ago for pneumonia. Now presented with altered mental status and patient was found to have elevated kidney function with creatinine up to 2.3 mg/dL and serum potassium of 6.3 and lactic acidosis with a lactic acid of 3.6 and nephrology consulted for further evaluation management. Patient is tachycardic on presentation and blood pressures on the lower side with elevated lactic acid and treated for septic shock. 1. Nonoliguric acute kidney injury on top of chronic kidney disease stage III with baseline creatinine around 1.4 mg/dL likely secondary to prerenal azotemia in the setting of intravascular volume depletion, sepsis versus obstructive nephropathy in the setting of urinary retention. 2. Hyperkalemia likely secondary to obstructive nephropathy and acute kidney injury. 3. Mild hyponatremia likely hypovolemia, resolved. 4. Sepsis. 5. Hypertension. 6. Hyperlipidemia. 7. Hypothyroidism. Plan. -HAYLIE improving with creatinine down to 1.5 mg/dL from 2.3 mg/dL and I have ordered a urine lites and renal ultrasound renal ultrasound significant for bilateral renal echogenicity. Right kidney atrophic of 6 cm and the left kidney 9.9 cm without any hydronephrosis. RIGHT kidney with multiple hypoechoic areas and also left kidney with 5.5 cm hypoechoic lesions likely cystic but needs follow-up with CT. Urinary bladder with mild distention. -I will order CT abdomen pelvis for further evaluation of renal lesions. -Patient has mild hypokalemia this morning, will replace with 20 mEq of potassium chloride. -Avoid nephrotoxins including NSAIDs and contrast. -Daily renal function panel. -Hypertension: Blood pressure is optimally controlled and currently on amlodipine 10 mg p.o. daily. -Patient is currently on IV hydration with normal saline at 250 cc/h and I will cut down fluids to 100 mL/h and monitor closely for volume overload. I have also discussed with the nursing staff to insert Jasso catheter for strict I's and O's. Please call with questions. I sincerely thank you for this kind referral and I will follow him from Nephrology point of view. Orders Orders Laboratory: RENAL PNL (Order): ROUTINE, 04/07/2021 05:00 EST MAGNESIUM LEVEL (Order): ROUTINE, 04/07/2021 05:00 EST. Orders Radiology: CT ABDOMEN WO IV CONTRAST (Order): 04/06/2021 11:17 EST, Routine, OTHER REASON, Renal lesions, Oral Contrast Needed: No, Bed, Isolation Precautions: NONE. Basic Information 19-year-old male presented with altered mental status. Chief complaint/reason for consult: For evaluation management of acute kidney injury and hyperkalemia. History of Present Illness This is a 69-year-old white male with past medical history of cognitive decline, schizoaffective disorder, hypertension, hyperlipidemia hypothyroidism presented to the hospital with altered mental status. Patient was lethargic and combative. Patient was admitted to the hospital a year ago for pneumonia. Now presented with altered mental status and patient was found to have elevated kidney function with creatinine up to 2.3 mg/dL and serum potassium of 6.3 and lactic acidosis with a lactic acid of 3.6 and nephrology consulted for further evaluation management. Patient is tachycardic on presentation and blood pressures on the lower side with elevated lactic acid and treated for septic shock. Patient is unable to provide any medical relevant history and most of the history was gathered from chart review. Patient was not on any nephrotoxic drugs at home. Patient is currently being treated with Zosyn, IV hydration at normal saline at 250 cc/h. No known history of congestive heart failure charted. Review of Systems Unable to provide any medical relevant history. Health Status Allergies: Allergies (1) Active Reaction No Known Allergies None Documented Current medications: Home Medications (12) Active acetaminophen 325 mg oral tablet 650 mg = 2 tab(s), PRN, ORAL, [id number] albuterol-ipratropiu m 2.5 mg-0.5 mg/3 mL inhalation solution = DuoNeb 3 mL, PRN, Inhalation, [id number] RESPIRATORY cloZAPine 100 mg oral tablet 100 mg = 1 tabs, ORAL, DAILY cloZAPine 200 mg oral tablet 200 mg = 1 tabs, ORAL, QHS Colace 100 mg oral capsule 100 mg = 1 caps, ORAL, BID Flomax 0.4 mg oral capsule 0.4 mg = 1 caps, ORAL, BID Lipitor 10 mg oral tablet 10 mg = 1 tabs, ORAL, QHS Norvasc 10 mg oral t (more content not included)... Normal [facility] Consult Report Patient: ALLAN LARA Age: 70 years Sex: Male : 1950 Associated Diagnoses: Nausea; Multiple falls; Kidney neoplasm; Hyperlipemia; HTN (hypertension); Diabetes mellitus; Dementia; COVID-19 Author: SANTI KAUFFMAN, [facility] Basic Information Time Seen: Date & Time 04/06/2021 07:59:00. Admit information: 1. Altered mental status metabolic encephalopathy 2. Low perfusion status manifested as acute kidney injury 3. Hyperkalemia potassium of 6.3 4. Leukocytosis with increased monocyte distribution 5. Acute urinary retention requiring catheter Above in a 71-year-old gentleman underlying schizoaffective disorder diabetes mellitus dyslipidemia cognitive decline hypertension BPH and a previous history of Covid positive on 03/11/2020 Plan 1. Medications reviewed 2. Blood cultures 3. Lactate kinetics 4. IV normal saline 250 per hour 5. Hyperkalemia managed the emergency room with insulin calcium gluconate sodium bicarb breath and a subsequent repeat potassium was four. 6. IV Zosyn adjusted for kidney dysfunction 7. Urinary indicis 8. CBC CMP procalcitonin . Source of history: Nurse, Medical personnel, Medical record, Patient. History limitation: Clinical condition. History of Present Illness 71-year-old gentleman admitted from an extended care facility because of increasing altered mental status. He was lethargic or combative. He was described to be confused. He also had a fall without any preceding dizzy or lightheaded spells per patient. There was no loss of consciousness and no seizures were described. At this time is admission to emergency room vital signs reviewed. Electrolytes show significant hyperkalemia with a potassium 6.3. BUN/creatinine 37/2.3. Hyperkalemia managed as in HPI. 775 Ashis more he is alert. Oriented. Answers questions properly. Denies any chest or abdominal pain. /10 reviewed. Discussed with overnight RN. Review of Systems Constitutional: Weakness, Fatigue. Eye: Negative. Ear/Nose/Mouth/Throa t: Negative. Respiratory: No shortness of breath, No cough. Cardiovascular: Negative. Gastrointestinal: No nausea, No vomiting, No diarrhea. Genitourinary: Negative except as documented in history of present illness. Hematology/Lymphatic s: Negative. Endocrine: Negative except as documented in history of present illness. Immunologic: Negative. Musculoskeletal: Negative. Integumentary: Negative. Neurologic: Alert. Oriented x2. Follows commands properly. Not agitated or combative.. Psychiatric: Negative. ROS reviewed as documented in chart Health Status Allergies: Allergies (1) Active Reaction No Known Allergies None Documented Current medications: Medications (25) Active Scheduled: (13) AMLODIPINE 10MG TAB 10 mg 1 tabs, ORAL, QHS ATORVASTATIN 10MG TAB 10 mg 1 tabs, ORAL, QHS CHOLECALCIFEROL 1000 Intl Unit (25mcg) TAB 50 mcg 2 tabs, ORAL, DAILY CLOZAPINE 100MG TAB 100 mg 1 tabs, ORAL, DAILY CLOZAPINE 100MG TAB 200 mg 2 tabs, ORAL, QHS DOCUSATE SODIUM 100MG CAPSULE 100 mg 1 caps, ORAL, BID ENOXAPARIN 30MG/0.3ML INJ 30 mg 0.3 mL, Subcutaneous, QHS HUMAN LISPRO Mild Scale, Subcutaneous, QIDWMHS LEVOTHYROXINE 50MCG TABLET 50 mcg 1 tabs, ORAL, DAILY BEFORE BREAKFAST PANTOPRAZOLE 40MG TAB 40 mg 1 tabs, ORAL, DAILY PIPERACILLIN-TAZOBAC PEREZ 2.25 g 50 mL, IV Piggyback, [id number] SODIUM CHLORIDE SYR/VIAL 10ML 3 mL, IV Push, [id number] TAMSULOSIN 0.4MG CAP 0.4 mg 1 caps, ORAL, BID Continuous: (1) SODIUM CHLORIDE 0.9% 1,000 mL 1,000 mL, IV, 250 mL/hr PRN: (11) ACETAMINOPHEN 325 MG TAB 650 mg 2 tabs, ORAL, [id number] ACETAMINOPHEN 325 MG TAB 650 mg 2 tabs, ORAL, [id number] ALBUTEROL 0.083% AEROSOL 2.5mg/3ML 2.5 mg 3 mL, Inhalation, [id number] RESPIRATORY DEXTROSE 50% 50ML SYRINGE/VIAL 12.5 g 25 mL, IV Push, PRN DEXTROSE 50% 50ML SYRINGE/VIAL 25 g 50 mL, IV Push, PRN GLUCAGON 1MG INJ 1 mg, IM, PRN GLUCOSE GEL 15GM/42ML 15 g 1 packets, ORAL, PRN GLUCOSE GEL 15GM/42ML 30 g 2 packets, ORAL, PRN SODIUM CHLORIDE NASAL SPRAY 45ML 2 sprays, Intranasal, QID SODIUM CHLORIDE SYR/VIAL 10ML 3 mL, IV Push, PRN ZOLPIDEM 2.5MG/ 0.5 TABLET 2.5 mg 1 EA, ORAL, QHS/[id number] Problem list: Active Problems (9) At risk for falls Auditory hallucinations COVID-19 Dementia Diabetes mellitus HTN (hypertension) Hyperlipemia Kidney neoplasm Schizoaffective disorder Histories Past Medical History: hpi Family History: No family history items have been selected or recorded. Procedure history: No active procedure history items have been selected or recorded. Social History Social & Psychosocial History Social History Alcohol Denies Alcohol Use Substance Abuse Denies Substance Abuse Tobacco Denies Tobacco Use Psychosocial History No active psychosocial history has been recorded. Physical Examination VS/Measurements Vital Signs (last 24 hrs) Last Charted Heart Rate Peripheral 98 bpm (more content not included)... Normal [facility] ED Physician Reporton 2021 ED Physician Report Patient: ALLAN LARA Age: 70 years Sex: Male : 1950 Associated Diagnoses: Hyperkalemia; Acute renal failure (ARF); Tachycardia; Acute diarrhea; Severe sepsis; Dehydration Author: ANAIS GAMBOA DO Basic Information Time seen: Time Seen: ANAIS GAMBOA DO / 04/05/2021 03:17 . History source: Patient, EMS. Arrival mode: Ambulance. History limitation: Clinical condition. History of Present Illness Patient is a 70-year-old male who presents emergency department for frequent falls and altered mental status. According to retirement report, patient does have some baseline confusion. He is typically alert and oriented x3. However, this evening, he has had 2 falls. First fall was at 1:30 AM and the second fall was at 2:35 AM. They reported no obvious injuries. They report that patient was having loose stools this evening. They reported that they felt like his abdomen was distended. They also noticed that he was increasingly confused. In the emergency room, he is alert and oriented x2. He does remember falling and states he felt lightheaded prior to falling. He denies any chest pain or abdominal pain. No further concerns at this time. History is somewhat limited secondary to overall clinical condition. Review of Systems Constitutional symptoms: Negative except as documented in HPI. Skin symptoms: Negative except as documented in HPI. Eye symptoms: Negative except as documented in HPI. ENMT symptoms: Negative except as documented in HPI. Respiratory symptoms: Negative except as documented in HPI. Cardiovascular symptoms: Negative except as documented in HPI. Gastrointestinal symptoms: Negative except as documented in HPI. Genitourinary symptoms: Negative except as documented in HPI. Musculoskeletal symptoms: Negative except as documented in HPI. Psychiatric symptoms: Negative except as documented in HPI. Endocrine symptoms: Negative except as documented in HPI. Hematologic/Lymphati c symptoms: Negative except as documented in HPI. Allergy/immunologic symptoms: Negative except as documented in HPI. Neurologic symptoms Negative except as documented in HPI. Additional review of systems information: All other systems reviewed and otherwise negative. Health Status Allergies: Allergic Reactions (Selected) No Known Allergies. Medications: (Selected) Prescriptions Prescribed Acidophilus oral tablet: 2 tabs, ORAL, DAILY, for 14 days, 28 tabs, 0 Refill(s) Augmentin 500 mg-125 mg oral tablet: 1 tabs, ORAL, [id number], for 5 days, 10 tabs, 0 Refill(s) Documented Medications Documented Colace 100 mg oral capsule: 100 mg = 1 caps, ORAL, BID, 0 Refill(s) Flomax 0.4 mg oral capsule: 0.4 mg = 1 caps, ORAL, BID, 0 Refill(s) Lipitor 10 mg oral tablet: 10 mg = 1 tabs, ORAL, QHS, 90 tabs, 0 Refill(s) Norvasc 10 mg oral tablet: 10 mg = 1 tabs, ORAL, QHS, 30 tabs, 0 Refill(s) Synthroid 50 mcg (0.05 mg) oral tablet: 50 mcg = 1 tabs, ORAL, DAILY, 30 tabs, 0 Refill(s) Vitamin D3 5000 intl units (125 mcg) oral tablet: 125 mcg, ORAL, DAILY, 0 Refill(s) acetaminophen 325 mg oral tablet: 650 mg = 2 tab(s), ORAL, [id number], PRN: for pain, 120 tab(s), 0 Refill(s) albuterol-ipratropiu m 2.5 mg-0.5 mg/3 mL inhalation solution = DuoNeb: 3 mL, Inhalation, [id number] RESPIRATORY, PRN: Wheezing or Dyspnea, 0 Refill(s) cloZAPine 100 mg oral tablet: 100 mg = 1 tabs, ORAL, DAILY, AM DOSE, 60 tabs, 0 Refill(s) cloZAPine 200 mg oral tablet: 200 mg = 1 tabs, ORAL, QHS, 0 Refill(s), per nurse's notes. Immunizations: Per nurse's notes. Past Medical/ Family/ Social History Medical history: No active or resolved past medical history items have been selected or recorded., Reviewed as documented in chart. Surgical history: No active procedure history items have been selected or recorded.. Family history: Reviewed as documented in chart. Social history: Reviewed as documented in chart. Problem list: Active Problems (9) At risk for falls Auditory hallucinations COVID-19 Dementia Diabetes mellitus HTN (hypertension) Hyperlipemia Kidney neoplasm Schizoaffective disorder . Physical Examination Vital Signs Per nurse's notes. General: Alert, moderate distress. Skin: Warm, dry, no rash. Head: Normocephalic, atraumatic. Neck: Supple, trachea midline, no tenderness. Eye: Pupils are equal, round and reactive to light, extraocular movements are intact. Ears, nose, mouth and throat: Oral mucosa moist. Cardiovascular: Normal peripheral perfusion, No edema, Tachycardia. Respiratory: Lungs are clear to auscultation, respirations are non-labored, breath sounds are equal. Gastrointestinal: Soft, Nontender, Non distended, Normal bowel sounds. Back: Normal range of motion, Normal alignment. Musculoskeletal: Normal ROM, normal strength, no deformity. Loyd coma scale Total score: Total score: 15. Neurological CN II-XII intact, normal sensory observed, normal motor obs (more content not included)... Normal [facility] HEMOon 04-06-2021 Erythrocyte distribution width (RBC) [Ratio] 14.0 % Normal 11.5-14.5 [facility] Comment on above: Performed By: #### 1 [id number] #### [facility] [address] [place] [address] 44130 Audioprosthologist: Herb Quiroz MD Hematocrit (Bld) [Volume fraction] 41.2 % Normal 41.0-52.0 [facility] Comment on above: Performed By: #### 1 [id number] #### [facility] [address] [place] [address] 21829 Audioprosthologist: Herb Quiroz MD Hemoglobin (Bld) [Mass/Vol] 13.8 g/dL Normal 13.5-17.5 [facility] Comment on above: Result Comment: Revi ewed Performed By: #### 1 [id number] #### [facility] [address] [place], [place] [id number] Audioprosthologist: Herb Quiroz MD Instr WBC 11.2 Normal [facility] Comment on above: Performed By: #### 1 [id number] #### [facility] [address] [place], [place] [id number] Audioprosthologist: Herb Quiroz MD MCH (RBC) [Entitic mass] 29.4 pg Normal 27.0-34.0 [facility] Comment on above: Performed By: #### 1 [id number] #### [facility] [address] [place], [place] [id number] Audioprosthologist: Herb Quiroz MD MCHC (RBC) [Mass/Vol] 33.5 g/dL Normal 32.0-37.0 [facility] Comment on above: Performed By: #### 1 [id number] #### [facility] [address] [place] [address] 73702 Audioprosthologist: Herb Quiroz MD MCV (RBC) [Entitic vol] 87.9 fL Normal 80.0-100.0 [facility] Comment on above: Performed By: #### 1 [id number] #### [facility] [address] [place] [address] 36852 Audioprosthologist: Herb Quiroz MD Nucleated RBC 0 /100WBC Normal [facility] Comment on above: Performed By: #### 1 [id number] #### [facility] [address] [place] [address] 54406 Audioprosthologist: Herb Quiroz MD Platelet 163 x1000 Normal 150-450 [facility] Comment on above: Result Comment: Rech ecked Performed By: #### 1 [id number] #### [facility] [address] [place] [address] 69625 Audioprosthologist: Herb Quiroz MD Platelet mean volume (Bld) [Entitic vol] 8.8 fL Normal 7.4-10.4 [facility] Comment on above: Performed By: #### 1 [id number] #### [facility] [address] [place] [address] 90655 Audioprosthologist: Herb Quiroz MD RBC 4.69 x10 Low 4.70-6.10 [facility] Comment on above: Result Comment: Note : RBC morphology is normal unless otherwise stated. Evaluation performed only if differential is requested. Performed By: #### 1 [id number] #### [facility] [address] [place] [address] 76838 Audioprosthologist: Herb Quiroz MD WBC 11.2 x10 High 4.5-11.0 [facility] Comment on above: Performed By: #### 1 [id number] #### [facility] [address] [place] [address] 42646 Audioprosthologist: Herb Quiroz MD DIFF? Yes Normal [facility] Comment on above: Performed By: #### 1 [id number] #### [facility] [address] [place] [address] 72250 Audioprosthologist: Herb Quiroz MD MAN DIFFon 04-06-[address] 0.90 x1000 High 0.00-0.70 [facility] Comment on above: Performed By: #### 1 [id number] #### [facility] [address] [place] [address] 10501 Audioprosthologist: Herb Quiroz MD Absolute Lymph Ct 0.45 x1000 Low 1.20-4.80 [facility] Comment on above: Performed By: #### 1 [id number] #### [facility] [address] [place] [address] 91744 Audioprosthologist: Herb Quiroz MD Absolute [place] [address] 0.34 x1000 Normal 0.10-1.00 [facility] Comment on above: Performed By: #### 1 [id number] #### [facility] [address] [place] [address] 47856 Audioprosthologist: Herb Quiroz MD Absolute Neutrophil Ct 10.42 x1000 High 1.40-8.80 [facility] Comment on above: Performed By: #### 1 [id number] #### [facility] [address] [place] [address] 22458 Audioprosthologist: Herb Quiroz MD Absolute Seg Ct 9.52 x1000 High 1.40-8.80 [facility] Comment on above: Performed By: #### 1 [id number] #### [facility] [address] [place] [address] 97921 Audioprosthologist: Herb Quiroz MD Band form neutrophils/100 WBC (Bld) 8 % Normal [facility] Comment on above: Performed By: #### 1 [id number] #### [facility] [address] [place] [address] 84886 Audioprosthologist: Herb Quiroz MD Lymphocytes/100 WBC (Bld) 4 % Normal [facility] Comment on above: Performed By: #### 1 [id number] #### [facility] [address] [place] [address] 40347 Audioprosthologist: Herb Quiroz MD Monocytes/100 WBC (Bld) 3 % Normal [facility] Comment on above: Performed By: #### 1 [id number] #### [facility] [address] [place] [address] Audioprosthologist: Herb Quiroz MD Segmented neutrophils/100 WBC (Bld) 85 % Normal [facility] Comment on above: Performed By: #### 1 [id number] #### [facility] [address] [place] [address] Audioprosthologist: Herb Quiroz MD Nursing Clinical Noteon Nursing Clinical Note Received report fr odilia Denton RN. Patient resting in bed, eyes closed. resp even and unlabored. ivf infusing without difficulty. jasso in place draining clear yellow urine. safety maintained. Normal [facility] Nursing Clinical Note 0710 Report receiv ed from Estrella BEEBE. Patient resting comfortably in bed, no pain or distress, breathing even and unlabored, call light within reach, denies any needs, bed alarm activated, safety maintained. 1019 Dr Rosario in to see patient, orders obtained and placed for jasso catheter placement. 1100 Urine sample sent as per orders. 1208 Dr. Tucker in to see patient and discuss plan of care. 1429 Patient resting comfortably in bed, no pain or distress, breathing even and unlabored, call light within reach, denies any needs, bed alarm activated, safety maintained. 1836 Patient resting comfortably in bed, no pain or distress, breathing even and unlabored, call light within reach, denies any needs, bed alarm activated, safety maintained. All bedding changed, now gown applied. Normal [facility] Nursing Clinical Note 2135-Patient resti ng in bed. No distress noted. Medications given per orders. Patient forgetful, unable to state the month or year. Bed alarm on for safety. Call light is in reach. 8-Page out to Dr. Joya regarding patients IVF and antibiotics. 0000-Second page out to Dr. Joya. 0042-Third page out to Dr. Joya. 0135-Spoke to Dr. Joya at this time. No new orders given. 0140-Orders being placed per Dr. Joya, see chart. 0330-Patient unable to void. Bladder scan 344. Will continue to monitor per protocol. 0530-Patient unable to void, bladder scan 463. 0600-Patient straight cathed per protocol. Patient tolerated well. 550ml clear yellow urine noted. Normal [facility] PCTon 04-06-2021 Procalcitonin 0.63 ng/mL Normal [facility] Comment on above: Result Comment: INTE RP DATA Less than or = 0.5 ng/mL Systemic infection (sepsis) is not likely. Local bacterial infection is possible. If PCT is measured very early after a bacterial challenge (usually less than 6 hours), these values may still be low. In this case, PCT should be re-assessed 6-24 hrs later. Greater than 0.5 - less than 2.0 ng/mL Systemic infection (sepsis) is possible, but other conditions are known to elevate PCT as well. The patient should be closely monitored both clinically and by re-assessing PCT within 6-24 hrs. Greater than or = 2.0 - less than 10.0 ng/mL Critical Range Systemic infection (sepsis) is likely, unless other causes are known. High risk for progression to severe systemic infection (severe sepsis/septic shock). Greater than or = 10.0 ng/mL Critical Range Important systemic inflammatory response, almost exclusively due to severe bacterial sepsis or septic shock. High likelihood of severe sepsis or septic shock. Performed By: #### 1 [id number] #### [facility] [address] [place] [address] Audioprosthologist: Herb Quiroz MD POC Glucoseon 04-06-2021 Glucose [Mass/Vol] 123 mg/dL High 72-100 [facility] Comment on above: Performed By: #### 1 [id number] ####[facility] [id number] [place] [address] Medical Director: Herb Quiroz MD Glucose [Mass/Vol] 110 mg/dL High 72-100 [facility] Comment on above: Performed By: #### 9 [id number], [id number] #### [facility] [address] [place] [address] 29458 Audioprosthologist: Herb Quiroz MD Glucose [Mass/Vol] 117 mg/dL High 72-100 [facility] Comment on above: Performed By: #### 9 [id number] #### [facility] [address] [place] [address] 33606 Audioprosthologist: Herb Quiroz MD Glucose [Mass/Vol] 128 mg/dL [facility] [address] [facility] Comment on above: Performed By: #### 1 [id number] #### [facility] [address] [place] [address] 81776 Audioprosthologist: Herb Quiroz MD U CREAT RANDOMon 04-06-2021 Creatinine Random, U 182.0 mg/dL Normal [facility] Comment on above: Performed By: #### 1 [id number] #### [facility] [address] [place] [address] 27772 Audioprosthologist: Herb Quiroz MD Creatinine Random, U 180.0 mg/dL Normal [facility] Comment on above: Performed By: #### 1 [id number], [id number] #### [facility] [address] [place] [address] 69091 Audioprosthologist: Herb Quiroz MD U NA RANDOMon 04-06-2021 Sodium [Moles/Vol] 21 mmol/L Normal [facility] Comment on above: Performed By: #### 1 [id number] #### [facility] [address] [place] [address] 93772 Audioprosthologist: Herb Quiroz MD Sodium [Moles/Vol] 20 mmol/L Normal [facility] Comment on above: Performed By: #### 1 , [id number], [id number] #### [facility] [address] [place] [address] 24029 Audioprosthologist: Herb Quiroz MD U OSMOon 04-06-2021 Osmolality, U 929 mOsm/kg Normal 390-1090 [facility] Comment on above: Performed By: #### 1 , , [id number] #### [facility] [address] [place] [address] 49122 Audioprosthologist: Herb Quiroz MD Specific gravity (U) [Rel density] 1.029 Normal [facility] Comment on above: Performed By: #### 1 , [id number], [id number] #### [facility] [address] [place] [address] 36035 Audioprosthologist: Herb Quiroz MD U UREA RANDOMon 04-06-2021 Random Urea, U 1800 mg/dL Normal [facility] Comment on above: Performed By: #### 1 [id number] #### [facility] [address] [place] [address] 07532 Audioprosthologist: Herb Quiroz MD UAon 04-06-2021 Appearance, U Clear Normal [facility] Comment on above: Performed By: #### 1 [id number] #### [facility] [address] [place] [address] 14573 Audioprosthologist: Herb Quiroz MD Bilirubin, U Negative Normal Negative [facility] Comment on above: Performed By: #### 1 [id number] #### [facility] [address] [place] [address] 96082 Audioprosthologist: Herb Quiroz MD Blood, U Small Abnormal Negative [facility] Comment on above: Performed By: #### 1 [id number] #### [facility] [address] [place] [address] 86025 Audioprosthologist: Herb Quiroz MD Color, U Yellow Normal [facility] Comment on above: Performed By: #### 1 [id number] #### [facility] [address] [place] [address] 46483 Audioprosthologist: Herb Quiroz MD Glucose Qual, U Negative Normal Negative [facility] Comment on above: Performed By: #### 1 [id number] #### [facility] [address] [place] [address] 96033 Audioprosthologist: Herb Quiroz MD Ketones, U Negative Normal Negative [facility] Comment on above: Performed By: #### 1 [id number] #### [facility] [address] [place] [address] 09603 Audioprosthologist: Herb Quiroz MD Leukocyte Esterase, U Negative Normal Negative [facility] Comment on above: Performed By: #### 1 [id number] #### [facility] [address] [place] [address] 83161 Audioprosthologist: Herb Quiroz MD Mucous, U Occasional Normal [facility] Comment on above: Performed By: #### 1 [id number] #### [facility] [address] [place] [address] 92221 Audioprosthologist: Herb Quiroz MD Nitrite, U Negative Normal Negative [facility] Comment on above: Performed By: #### 1 [id number] #### [facility] [address] [place] [address] 89421 Audioprosthologist: Herb Quiroz MD pH, U 5.0 Normal 4.5-8.0 [facility] Comment on above: Performed By: #### 1 [id number] #### [facility] [address] [place] [address] 25271 Audioprosthologist: Herb Quiroz MD Protein, U Negative Normal Negative [facility] Comment on above: Performed By: #### 1 [id number] #### [facility] [address] [place], [place] [address] Audioprosthologist: Herb Quiroz MD RBC/HPF, U 1 #/HPF Normal 0-3 [facility] Comment on above: Performed By: #### 1 [id number] #### [facility] [address] [place] [address] 90888 Audioprosthologist: Herb Quiroz MD Specific [place], U 1.028 Normal 1.001-1.035 [facility] Comment on above: Performed By: #### 1 [id number] #### [facility] [address] [place] [address] 62966 Audioprosthologist: Herb Quiroz MD Squamous Epithelial Cells, U <1 Normal [facility] Comment on above: Performed By: #### 1 [id number] #### [facility] [address] [place] [address] 30205 Audioprosthologist: Herb Quiroz MD U MICRO Indicated Normal [facility] Comment on above: Performed By: #### 1 [id number] #### [facility] [address] [place] [address] 50946 Audioprosthologist: Herb Quiroz MD Urobilinogen Qual, U <2.0 mg/dl Normal <2.0 mg/dl [facility] Comment on above: Result Comment: EU/d l and mg/dl are equivalent units. 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 - renal insufficiency, exam is limited due to overlying bowel gas and body habitus, right renal length and right renal cortical diameter were not able to be obtained on today's exam Prior Study: [None] Findings: The technologist could not obtain the length of the right kidney on today's study. The right kidney measures 6.0 cm in width and 7.0 cm in height. The left kidney measures 9.9 x 4.3 x 6.0 cm. Renal cortical echogenicity appears to be isoechoic to liver and spleen. Findings may indicate medical renal disease.. There is no evidence of hydronephrosis. The right renal cortical diameter could not be reliably measured by the technologist. The diameter of the left renal cortex 0.8 cm.. There are three right renal hypoechoic areas measuring 3.5 x 4.1 x 2.5 cm in a peripelvic location, 4.8 x 4.2 x 4.0 cm medially, and 5.3 x 5.1 x 5.2 cm superiorly. Visualization is limited but these appear to be predominantly cystic. There is a 5.5 x 5.4 x 4.8 cm in diameter hypoechoic area involving the upper pole of the left kidney which is suboptimally visualized. This lesion may be cystic, however, detail is limited. If better characterization of the hypoechoic lesions within the kidneys is desired, CT or MR is suggested. There is no perinephric fluid. The proximal ureters are not visualized. The urinary bladder is only mildly distended. There is a mildly distended gallbladder containing internal echogenic material. Part of this echogenic material within the gallbladder shadows and the findings are suggestive of cholelithiasis. The wall of the gallbladder measures 0.3 cm. Impression: Increased bilateral renal cortical echogenicity compatible with medical renal disease Limited visualization of the kidneys for reasons discussed above There are bilateral hypoechoic areas involving the kidneys possibly indicating cysts. Detailed characterization by ultrasound is however limited and if better characterization is desired, CT or MR is recommended There is echogenic material within the gallbladder, several of which shadow. Findings are compatible with cholelithiasis. 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 Performed By: #### 1 [id number] #### [facility] [address] [place] [address] 03362 Audioprosthologist: Herb Quiroz MD Time Last Dose See MAR Summary Normal [facility] Comment on above: Result Comment: VERI FIED by Discern Expert. Performed By: #### 1 [id number] #### [facility] [address] [place] [address] 79260 Audioprosthologist: Herb Quiroz MD Vancomycin Random 5.40 ug/ml Normal 5.00-40.00 [facility] Comment on above: Performed By: #### 1 [id number] #### [facility] [address] [address] Audioprosthologist: Herb Quiroz MD APTTon 04-05-2021 aPTT Coag (Bld) [Time] 29.1 s Normal 26.0-39.0 So [facility] Comment on above: Performed By: #### 1 [id number] #### [facility] [address] [place] [address] 85230 Audioprosthologist: Herb Quiroz MD AUTO DIFFon 04-05-2021 Baso Count Normal 0.00-0.20 [facility] Comment on above: Performed By: #### 1 [id number] #### [facility] [address] [place] [address] 01183 Audioprosthologist: Herb Quiroz MD Basos % Normal [facility] Comment on above: Performed By: #### 1 [id number] #### [facility] [address] [place] [address] 38816 Audioprosthologist: Herb Quiroz MD Eos Count Normal 0.00-0.50 [facility] Comment on above: Performed By: #### 1 [id number] #### [facility] [address] [place] [address] 97294 Audioprosthologist: Herb Quiroz MD Eosin % Normal [facility] Comment on above: Performed By: #### 1 [id number] #### [facility] [address] [place] [address] 80954 Audioprosthologist: Herb Quiroz MD Lymph % Normal [facility] Comment on above: Performed By: #### 1 [id number] #### [facility] [address] [place] [address] 61134 Audioprosthologist: Herb Quiroz MD Lymph Count Normal 1.20-4.80 [facility] Comment on above: Performed By: #### 1 [id number] #### [facility] [address] [place] [address] 25936 Audioprosthologist: Herb Quiroz MD [place] % Normal [facility] Comment on above: Performed By: #### 1 [id number] #### [facility] [address] [place] [address] 61965 Audioprosthologist: Herb Quiroz MD [place] Count Normal 0.10-1.00 [facility] Comment on above: Performed By: #### 1 [id number] #### [facility] [address] [place] [address] 73483 Audioprosthologist: Herb Quiroz MD Neutrophil % Normal [facility] Comment on above: Performed By: #### 1 [id number] #### [facility] [address] [place] [address] 80662 Audioprosthologist: Herb Quiroz MD Neutrophil Count (ANC) Normal 1.40-8.80 So [facility] Comment on above: Performed By: #### 1 [id number] #### [facility] [address] [place] [address] 69628 Audioprosthologist: Herb Quiroz MD COMPMETAon 04-05-2021 Albumin/Globulin [Mass ratio] 0.9 {ratio} Normal [facility] Comment on above: Performed By: #### 1 [id number] #### [facility] [address] [place] [address] 02740 Audioprosthologist: Herb Quiroz MD GFR AA 34 Normal [facility] Comment on above: Result Comment: Afri can Green[place]ic GFR Calc Medical judgement is necessary to interpret GFR. The calculated GFR may not accurately reflect renal status in patients >70 years, women, acutely ill hospitalized patients and patients with acute renal failure or known renal disease. The MDRD GFR formula is valid only for adults greater than 18 years of age. Note: Creatinine clearance (not GFR) should be used for drug dosing. Performed By: #### 1 [id number] #### [facility] [address] [place] [address] 46181 Audioprosthologist: Herb Quiroz MD Globulin (S) [Mass/Vol] 4.3 g/dL Normal [facility] Comment on above: Performed By: #### 1 [id number] #### [facility] [address] [place] [address] 07172 Audioprosthologist: Herb Quiroz MD Glomerular Filtration Rate 28 mL/min/1.73m? [facility] Comment on above: Result Comment: Non GFR Calc Medical judgement is necessary to interpret GFR. The calculated GFR may not accurately reflect renal status in patients >70 years, women, acutely ill hospitalized patients and patients with acute renal failure or known renal disease. The MDRD GFR formula is valid only for adults greater than 18 years of age. Note: Creatinine clearance (not GFR) should be used for drug dosing. Performed By: #### 1 [id number] #### [facility] [address] [place] [address] 24817 Audioprosthologist: Herb Quiroz MD Osmolality [Osmolality] 284 mosm/kg Normal 275-295 [facility] Comment on above: Performed By: #### 1 [id number] #### [facility] [address] [place] [address] 53917 Audioprosthologist: Herb Quiroz MD Urea nitrogen/Creatinine [Mass ratio] 14.0 mg/mg Normal [facility] Comment on above: Performed By: #### 1 [id number] #### [facility] [address] [place] [address] 58485 Audioprosthologist: Herb Quiroz MD Albumin [Mass/Vol] 3.7 g/dL Normal 3.4-5.0 [facility] Comment on above: Performed By: #### 1 [id number] #### [facility] [address] [place] [address] 48501 Audioprosthologist: Herb Quiroz MD Alk Phos 84 unit/L Normal 45-117 [facility] Comment on above: Performed By: #### 1 [id number] #### [facility] [address] [place] [address] 41105 Audioprosthologist: Herb Quiroz MD Bilirubin [Mass/Vol] 0.78 mg/dL Normal 0.20-1.00 [facility] Comment on above: Result Comment: Use of this assay is not recommended for patients undergoing treatment with eltrombopag due to the potential for falsely elevated results. Performed By: #### 1 [id number] #### [facility] [address] [place] [address] 80899 Audioprosthologist: Herb Quiroz MD Calcium [Mass/Vol] 9.2 mg/dL Normal 8.5-10.5 [facility] Comment on above: Performed By: #### 1 [id number] #### [facility] [address] [place] [address] 52794 Audioprosthologist: Herb Quiroz MD Chloride [Moles/Vol] 105 mmol/L Normal 100-109 [facility] Comment on above: Performed By: #### 1 [id number] #### [facility] [address] [place] [address] 24746 Audioprosthologist: Herb Quiroz MD CO2 [Moles/Vol] 23.0 mmol/L Normal 21.0-32.0 [facility] Comment on above: Performed By: #### 1 [id number] #### [facility] [address] [place] [address] 64825 Audioprosthologist: Herb Quiroz MD Creatinine [Mass/Vol] 2.3 mg/dL High 0.7-1.3 [facility] Comment on above: Performed By: #### 1 [id number] #### [facility] [address] [place] [address] 56257 Audioprosthologist: Herb Quiroz MD Glucose [Mass/Vol] 325 mg/dL High 72-100 [facility] Comment on above: Result Comment: Nori puncture should occur prior to sulfasalazine administration due to the potential for falsely depressed results. Venipuncture should occur prior to sulfapyridine administration due to the potential falsely elevated results. Baseline assay values before administration of sulfasalazine and sulfapyridine therapy would not be affected. Performed By: #### 1 [id number] #### [facility] [address] [address] Audioprosthologist: Herb Quiroz MD GOT 11 unit/L Low 15-37 [facility] Comment on above: Result Comment: Nori puncture should occur prior to sulfasalazine and/or sulfapyridine administration due to the potential for falsely depressed results. Baseline assay values before administration of sulfasalazine and sulfapyridine therapy would not be affected. Performed By: #### 1 [id number] #### [facility] [address] [place] [address] 25990 Audioprosthologist: Herb Quiroz MD GPT 19 unit/L Normal 16-61 [facility] Comment on above: Result Comment: Nori puncture should occur prior to sulfasalazine and/or sulfapyridine administration due to the potential for falsely depressed results. Baseline assay values before administration of sulfasalazine and sulfapyridine therapy would not be affected. Performed By: #### 1 [id number] #### [facility] [address] [place] [address] 65363 Audioprosthologist: Herb Quiroz MD Potassium [Moles/Vol] 6.3 mmol/L Critically abnormal 3.5-5.1 [facility] Comment on above: Result Comment: Crit ical Result(s) called at: 04:27:57 on 04/05/2021 by: Lloyd Ferrari rechecked, RBR to: GAVIN in [facility] Performed By: #### 1 [id number] #### [facility] [address] [place] [address] 56493 Audioprosthologist: Herb Quiroz MD Protein [Mass/Vol] 8.0 g/dL Normal 6.0-8.5 [facility] Comment on above: Performed By: #### 1 [id number] #### [facility] [address] [place] [address] 39279 Audioprosthologist: Herb Quiroz MD Sodium [Moles/Vol] 132 mmol/L Low 135-145 [facility] Comment on above: Performed By: #### 1 [id number] #### [facility] [address] [place] [address] 14746 Audioprosthologist: Herb Quiroz MD Urea nitrogen [Mass/Vol] 32 mg/dL High 10-20 [facility] Comment on above: Performed By: #### 1 [id number] #### [facility] [address] [place] [address] 85004 Audioprosthologist: Herb Quiroz MD COVID-19 Molecular SWEDon SARS-CoV-2 (COVID-19) RNA AARTI+probe Ql (Unsp spec) Negative Normal [facility] Comment on above: Result Comment: This assay is designed to detect the RdRp target of SARS-CoV-2 using rapid molecular isothermal amplification technology. A Negative result does not preclude the possibility of COVID 19 infection since the adequacy of sample collection and/or low viral burden may result in the presence of viral nucleic acids below the analytical sensitivity of this test method. Test results should be used along with other clinical and laboratory data in making the diagnosis. This test has received FDA Emergency Use Authorization and has been verified by [facility]. This test is only authorized for the duration of the declaration and circumstances that exist to justify the authorization of the emergency use of the in vitro diagnostic tests for the detection of SARS-CoV-2 virus and/or diagnosis of COVID-19 infection under section 564(b)(1) of the Act. 21 U.S.C. 360bbb-3(b)(1), unless the authorization is terminated or revoked sooner. This testing was performed in the [facility] laboratory located at [[place] [address]] Performed By: #### C [id number] ####[facility] [id number] [place] [address] Medical Director: Herb Quiroz MD CPKon 04-05-2021 CPK 272 unit/L Normal 39-308 [facility] Comment on above: Performed By: #### 1 [id number] #### [facility] [address] [place] [address] Audioprosthologist: Herb Quiroz MD CT BRAIN HEAD WO CONTRASTon 04-05-2021 CT BRAIN HEAD WO CONTRAST INDICATION: AMS;OTHER REASON. Pain post fall COMPARISON: March 28 2020, brain CORRELATION: None TECHNIQUE: Noncontrast spiral axial CT images were obtained from the skull base to vertex. Noncontrast spiral axial CT imaging through the cervical spine with multiplanar reconstructions. This exam was performed according to our departmental dose-optimization program, which includes automated exposure control, adjustment of the mA and/or kV according to patient size and/or use of iterative reconstruction techniques. FINDINGS: BRAIN: There is no evidence of acute intracranial hemorrhage, midline shift, mass effect or mass lesion. Avila-white differentiation is normal. There is no evidence of acute large territory infarct. Age-related involutional changes are identified. Presumed old small vessel ischemic changes are seen predominantly in a periventricular distribution.. The visualized paranasal sinuses are grossly clear. The orbits and eyeballs are unremarkable. The mastoid air cells are clear. Skull base and calvarium appear intact. CERVICAL SPINE: No acute displaced fracture is identified of the cervical spine. Straightening of the normal cervical lordosis. No focal alignment abnormality is identified. Vertebral body heights are well-maintained. Fusion of C5-C6. Old posttraumatic changes posteriorly The uncovertebral joints and facets are within normal limits, for age. Surrounding soft tissues of the neck are unremarkable. Chronic changes at the lung apices IMPRESSION: No acute intracranial process is identified. No acute bony injury is seen to the cervical spine. Osteoarthritis Electronically signed by: Morris Levine MD 04/05/2021 3:38 AM [employer] H[employer]ORY COLLECTIONS CURATOR Workstation: [id number][id number] Technologist: TMP Dictated By: MORRIS LEVINE MD Signed By: MORRIS LEVINE MD Signed Out: 04/05/21 04:38:02 [address] [facility] CT CERVICAL SPINE WO CONTRAS Ton 04-05-2021 CT CERVICAL SPINE WO CONTRAST INDICATION: AMS;OTHER REASON. Pain post fall COMPARISON: March 28 2020, brain CORRELATION: None TECHNIQUE: Noncontrast spiral axial CT images were obtained from the skull base to vertex. Noncontrast spiral axial CT imaging through the cervical spine with multiplanar reconstructions. This exam was performed according to our departmental dose-optimization program, which includes automated exposure control, adjustment of the mA and/or kV according to patient size and/or use of iterative reconstruction techniques. FINDINGS: BRAIN: There is no evidence of acute intracranial hemorrhage, midline shift, mass effect or mass lesion. Avila-white differentiation is normal. There is no evidence of acute large territory infarct. Age-related involutional changes are identified. Presumed old small vessel ischemic changes are seen predominantly in a periventricular distribution.. The visualized paranasal sinuses are grossly clear. The orbits and eyeballs are unremarkable. The mastoid air cells are clear. Skull base and calvarium appear intact. CERVICAL SPINE: No acute displaced fracture is identified of the cervical spine. Straightening of the normal cervical lordosis. No focal alignment abnormality is identified. Vertebral body heights are well-maintained. Fusion of C5-C6. Old posttraumatic changes posteriorly The uncovertebral joints and facets are within normal limits, for age. Surrounding soft tissues of the neck are unremarkable. Chronic changes at the lung apices IMPRESSION: No acute intracranial process is identified. No acute bony injury is seen to the cervical spine. Osteoarthritis Electronically signed by: Morris Levine MD 04/05/2021 3:38 AM [employer]URAL HISTORY COLLECTIONS CURATOR Workstation: [id number][id number] Technologist: TMP Dictated By: MORRIS LEVINE MD Signed By: MORRIS LEVINE MD Signed Out: 04/05/21 04:38:02 Normal [facility] ED Discharge Educationon ED Discharge Education Normal So [facility] ED Patient Summaryon 022 ED Patient Summary [facility] Emergency Department Discharge Instructions [address] [place] [address] \\.br\\(Patien t Copy)\\.br\\ \\.br\\Name: ALLAN LARA : 1950 \\.br\\Allergies: No Known Allergies\\.br\\Diagno sis: Diagnoses This Visit\\.br\\ Multiple falls ([id number])\\. br\\ Nausea ([id number] [id number])\\.br\\\\.br\\\\.br\\ \\.br\\ Visit Date: 04/05/2021 03:15:28 \\.br\\ Current Date Time: 04/05/2021 14:39:00 \\.br\\Address: [address] [place] [address] \\.br\\ \\.br\\ \\.br\\Primary Care Provider: \\.br\\Name: CASE KAUFFMAN, JESSI H\\.br\\ \\.br\\ \\.br\\Emergency Department Care Providers: \\.br\\ Primary Physician: ROLANDO TUCKER MD \\.br\\ \\.br\\ \\.br\\\\.br\\Thank you for choosing [facility] for your emergency care. You are very important to us. Our goal is to demonstrate our high quality medical care, and provide you with a very good patient experience.\\.br\\\\.br \\You may receive a survey about our service. Please take the time to complete the survey and return it so we can continue to enhance our service.\\.br\\\\.br\\Th ank you again for allowing the [facility] Emergency Department to care for your medical needs. If you have questions about your care or follow up information please contact us at [phone].\\.br\\\\. br\\ Follow-Up Instructions\\.br\\___ \\.br\\ALLAN LARA has been given these follow-up instructions:\\.br\\\\. br\\Patient Education Materials\\.br\\ __\\.br\\ALLAN LARA has been given the following patient education materials:\\.br\\\\.br\\ \\.br\\BEFORE YOU LEAVE\\.br\\\\.br\\Set up your [facility] [employer] account!\\.br\\ \\.br\\Tab[employer] is a secure, online health management tool that connects you to portions of your hospital-based electronic medical record, allowing you to see test results, manage appointments, access discharge care instructions and much more.\\.br\\ \\.br\\You can access [employer] from a computer, tablet or smartphone. Enrollment/registrat ion is required. If you do not have a [employer] account, please provide us with an email address before you leave so that we may set up an account for you.\\.br\\ \\.br\\New to [employer]!\\.br\\You may now securely connect some of the health management apps you use (e.g., fitness trackers, dietary trackers, etc.) to your health record in [facility] [employer]. This new feature provides expanded access to your health and wellness data, which will help you and your care team make informed decisions about your health care. \\.br\\If you are interested in using a health management luz not currently connected to [employer], contact a Ordering Box Operator at [phone] or [email or web address]. We will determine if the luz meets the technical requirements to connect to [facility] [employer] and assure the security of your private health information.\\.br\\ \\.br\\ Medication Information\\.br\\____ ____\\.br\\ALLAN LARA has been given the following medication information:\\.br\\Onl y Take The Medicines On This List. \\.br\\Keep This List and Bring It To Your Next Appointment. \\.br\\Medicines To Take At Home: \\.br\\ Medicine Name\\.br\\ (Generic Name) Amount to Take How to Take it How Often to Take it Additional Instructions Next Dose Due \\.br\\ acetaminophen 325 mg oral tablet\\.br\\(acetamin ophen) 650 mg By Mouth EVERY SIX HOURS Take as needed for pain\\.br\\\\.br\\\\.br\\\\ .br\\\\.br\\\\.br\\ \\.br\\ albuterol-ipratropiu m 2.5 mg-0.5 mg/3 mL inhalation solution = DuoNeb *\\.br\\(albuterol-ipr atropium) 3 mL Inhalation EVERY FOUR HOURS RESPIRATORY Take as needed for Wheezing or Dyspnea\\.br\\\\.br\\\\.b r\\\\.br\\\\.br\\\\.br\\ \\.br\\ Norvasc 10 mg oral tablet\\.br\\(amlodipi ne) 10 mg By Mouth AT BEDTIME \\.br\\ Lipitor 10 mg oral tablet\\.br\\(atorvast atin) 10 mg By Mouth AT BEDTIME \\.br\\ Vitamin D3 5000 intl units (125 mcg) oral tablet\\.br\\(cholecal ciferol) 125 mcg By Mouth DAILY \\.br\\ cloZAPine 100 mg oral tablet\\.br\\(clozapin e) 100 mg By Mouth DAILY AM DOSE\\.br\\\\.br\\\\.br\\\\ .br\\ \\.br\\ cloZAPine 200 mg oral tablet\\.br\\(clozapin e) 200 mg By Mouth AT BEDTIME \\.br\\ Colace 100 mg oral capsule\\.br\\(docusat e) 100 mg By Mouth TWICE A DAY \\.br\\ Synthroid 50 mcg (0.05 mg) oral tablet\\.br\\(levothyr oxine) 50 mcg By Mouth DAILY \\.br\\ Flomax 0.4 mg oral capsule\\.br\\(tamsulo sin) 0.4 mg By Mouth TWICE A DAY \\.br\\\\.br\\Understand ing your home medicine is important to keeping you healthy. If you are taking medications that are not on the preceding list, please call your doctor to see if you are to continue that medication. It is important that you do not skip or make up doses. If you are ordered an antibiotic, finish taking all the medicine, unless your doctor tells you otherwise. Call your doctor if you have questions or problems. Take the medicine list with you (more content not included)... Normal [facility] ED Pre-Arrival Formon 2021 ED Pre-Arrival Form Pre-Arrival Summary Name: physicians, Current Date: 04/05/2021 03:15:50 EST Gender: Date of : Age: Pre-Arrival Type: EMS ETA: 04/05/2021 03:39:00 EST Primary Care Physician: Presenting Problem: Pre-Arrival User: Kailey Jordan Referring Source: Location: 1 [facility] Emergency Department [address] [place], [place] [id number] ____ Notes: Vital Signs: Doctor Call Back: DNR Status: Miscellaneous Issues: Normal [facility] ED Progress Noteon 2 ED Progress Note Pt presented to the ED via [facility] with c/o multiple falls, per the facility. Per EMS report, pt has had 2 falls with no injury since 2am, and that he isn't acting like himself. Per the facility, the pt is usually A&Ox3 at baseline. On arrival to ED, pt is A&Ox2, not oriented to time. Pt states he has fell twice today, states he was dizzy prior to the fall, denies hitting his head, denies loss of consciousness. Pt states he is nauseas, denies abdominal pain, cp, SOB. Dr. Gamboa at the bedside for evaluation. EKG completed, IV inserted, labs drawn, pt placed on the cardiac sonographer. 0630 Dr. Gamboa at the bedside to answer pt questions and discuss test results. Pt to be admitted to the hospital. 0715 Report to Angella BEEBE THE PATIENT IS ON 2 LITERS NASAL CANNULA. HE IS REORIENTED TO TIME. THE PATIENT DENIES COMPLAINTS. TO [facility] FLOOR VIA CLINICAL TRANSPORT. S/P REPORT CALLED. THE PATIENT DENIES COMPLAINTS. HE IS STABLE ON 2 LITERS NASAL CANNULA Normal [facility] HEMOon 04-05-2021 Nucleated RBC Normal [facility] Comment on above: Performed By: #### 1 [id number] #### [facility] [address] [place] [address] Audioprosthologist: Herb Quiroz MD DIFF? Yes Normal [facility] Comment on above: Performed By: #### 1 [id number] #### [facility] [address] [place] [address] Audioprosthologist: Herb Quiroz MD Dx Actions See Notes Abnormal [facility] Comment on above: Result Comment: Scan Slide. Perform manual diff if needed. SNV Performed By: #### 1 [id number] #### [facility] [address] [place], [place] [id number] Audioprosthologist: Herb Quiroz MD Erythrocyte distribution width (RBC) [Ratio] 13.9 % Normal 11.5-14.5 [facility] Comment on above: Performed By: #### 1 [id number] #### [facility] [address] [place] [address] Audioprosthologist: Herb Quiroz MD Hematocrit (Bld) [Volume fraction] 49.8 % Normal 41.0-52.0 [facility] Comment on above: Performed By: #### 1 [id number] #### [facility] [address] [place] [address] Audioprosthologist: Herb Quiroz MD Hemoglobin (Bld) [Mass/Vol] 16.7 g/dL Normal 13.5-17.5 [facility] Comment on above: Performed By: #### 1 [id number] #### [facility] [address] [place] [address] 58636 Audioprosthologist: Herb Quiroz MD Instr WBC 25.6 Normal [facility] Comment on above: Performed By: #### 1 [id number] #### [facility] [address] [address] Audioprosthologist: Herb Quiroz MD MCH (RBC) [Entitic mass] 29.7 pg Normal 27.0-34.0 [facility] Comment on above: Performed By: #### 1 [id number] #### [facility] [address] [place] [address] Audioprosthologist: Herb Quiroz MD MCHC (RBC) [Mass/Vol] 33.5 g/dL Normal 32.0-37.0 [facility] Comment on above: Performed By: #### 1 [id number] #### [facility] [address] [place] [address] 93602 Audioprosthologist: Herb Quiroz MD MCV (RBC) [Entitic vol] 88.7 fL Normal 80.0-100.0 [facility] Comment on above: Performed By: #### 1 [id number] #### [facility] [address] [place] [address] 20349 Audioprosthologist: Herb Quiroz MD MDW 22.50 High 13.98-20.00 [facility] Comment on above: Result Comment: MDW Interpretation: ? For adults age 18-89 in ED, MDW >20.0 may be associated with a higher risk of Sepsis during the first 12 hours of hospital admission. ? The predictive value of MDW for identifying Sepsis in patients with hematological abnormalities has not been established. ? Interpret with caution when immature granulocytes, variant lymphs, or blast cells are noted on the differential. ? Confirm patient age is within intended use population (18-89 years) for MDW. ? For ED adults suspected of Sepsis, MDW less than or equal to 20.0 does not rule out Sepsis or the risk of Sepsis. Performed By: #### 1 [id number] #### [facility] [address] [place] [address] Audioprosthologist: Herb Quiroz MD Platelet 259 x1000 Normal 150-450 [facility] Comment on above: Performed By: #### 1 [id number] #### [facility] [address] [place] [address] 59043 Audioprosthologist: Herb Quiroz MD Platelet mean volume (Bld) [Entitic vol] 8.9 fL Normal 7.4-10.4 [facility] Comment on above: Performed By: #### 1 [id number] #### [facility] [address] [place] [address]1464 Audioprosthologist: Herb Quiroz MD RBC 5.62 x10 Normal 4.70-6.10 [facility] Comment on above: Result Comment: Note : RBC morphology is normal unless otherwise stated. Evaluation performed only if differential is requested. Performed By: #### 1 [id number] #### [facility] [address] [place] [address] Audioprosthologist: Herb Quiroz MD WBC 25.6 x10 High 4.5-11.0 [facility] Comment on above: Performed By: #### 1 [id number] #### [facility] [address] [place] [address]691 Audioprosthologist: Herb Quiroz MD K LEVELon 04-05-2021 Potassium [Moles/Vol] 4.0 mmol/L Normal 3.5-5.1 [facility] Comment on above: Performed By: #### 9 [id number] #### [facility] [address] [place] [address] Audioprosthologist: Herb Quiroz MD LACTATEon 04-05-2021 Lactate [Moles/Vol] 3.1 mmol/L High 0.4-2.0 [facility] Comment on above: Performed By: #### 1 [id number] #### [facility] [address] [place] [address] Audioprosthologist: Herb Quiroz MD Lactate [Moles/Vol] 3.6 mmol/L High 0.4-2.0 [facility] Comment on above: Performed By: #### 1 [id number] ####[facility] [address] [place] [address] [id number]) [phone] Director: Herb Quiroz MD MAN DIFFon 04-05-[address] 2.82 x1000 High 0.00-0.70 [facility] Comment on above: Performed By: #### 1 [id number] #### [facility] [address] [place] [address] Audioprosthologist: Herb Quiroz MD Absolute Lymph Ct 0.26 x1000 Low 1.20-4.80 [facility] Comment on above: Performed By: #### 1 [id number] #### [facility] [address] [place] [address] Audioprosthologist: Herb Quiroz MD Absolute [address] 0.77 x1000 Normal 0.10-1.00 [facility] Comment on above: Performed By: #### 1 [id number] #### [facility] [address] [place] [address] 14953 Audioprosthologist: Herb Quiroz MD Absolute Neutrophil Ct 24.58 x1000 High 1.40-8.80 [facility] Comment on above: Performed By: #### 1 [id number] #### [facility] [address] [place] [address] 38320 Audioprosthologist: Herb Quiroz MD Absolute Seg Ct 21.76 x1000 High 1.40-8.80 [facility] Comment on above: Performed By: #### 1 [id number] #### [facility] [address] [place] [address] 16598 Audioprosthologist: Herb Quiroz MD Band form neutrophils/100 WBC (Bld) 11 % Normal [facility] Comment on above: Performed By: #### 1 [id number] #### [facility] [address] [place] [address] 76752 Audioprosthologist: Herb Quiroz MD Left Shift Present Abnormal [facility] Comment on above: Performed By: #### 1 [id number] #### [facility] [address] [place] [address] 92566 Audioprosthologist: Herb Quiroz MD Lymphocytes/100 WBC (Bld) 1 % Normal [facility] Comment on above: Performed By: #### 1 [id number] #### [facility] [address] [place] [address] 48696 Audioprosthologist: Herb Quiroz MD Monocytes/100 WBC (Bld) 3 % Normal [facility] Comment on above: Performed By: #### 1 [id number] #### [facility] [address] [place] [address] 06260 Audioprosthologist: Herb Quiroz MD Segmented neutrophils/100 WBC (Bld) 85 % Normal [facility] Comment on above: Performed By: #### 1 [id number] #### [facility] [address] [place] [address] 11470 Audioprosthologist: Herb Quiroz MD Nursing Clinical Noteon 03-08 Nursing Clinical Note Pt arrived from ED , pivot from cart to bed, unsteady, alarm on Pt oriented at this time but forgetful, discussed poc Dr. Tucker paged [phone] Spoke with Dr. Tucker, see orders. Dr. Tucker in to see pt [facility] Normal [facility] PCTon 04-05-2021 Procalcitonin 1.67 ng/mL Normal [facility] Comment on above: Result Comment: INTE RP DATA Less than or = 0.5 ng/mL Systemic infection (sepsis) is not likely. Local bacterial infection is possible. If PCT is measured very early after a bacterial challenge (usually less than 6 hours), these values may still be low. In this case, PCT should be re-assessed 6-24 hrs later. Greater than 0.5 - less than 2.0 ng/mL Systemic infection (sepsis) is possible, but other conditions are known to elevate PCT as well. The patient should be closely monitored both clinically and by re-assessing PCT within 6-24 hrs. Greater than or = 2.0 - less than 10.0 ng/mL Critical Range Systemic infection (sepsis) is likely, unless other causes are known. High risk for progression to severe systemic infection (severe sepsis/septic shock). Greater than or = 10.0 ng/mL Critical Range Important systemic inflammatory response, almost exclusively due to severe bacterial sepsis or septic shock. High likelihood of severe sepsis or septic shock. Performed By: #### 9 [id number], [id number] #### [facility] [address] [place] [address] Audioprosthologist: Herb Quiroz MD POC Glucoseon 04-05-2021 Glucose [Mass/Vol] 163 mg/dL High 72-100 [facility] Comment on above: Performed By: #### 1 [id number] #### [facility] [address] [place] [address] Audioprosthologist: Herb Quiroz MD Glucose [Mass/Vol] 151 mg/dL High 72-100 [facility] Comment on above: Performed By: #### 9 [id number], [id number] #### [facility] [address] [place] [address] 64179 Audioprosthologist: Herb Quiroz MD Glucose [Mass/Vol] 144 mg/dL High 72-100 [facility] Comment on above: Performed By: #### 1 [id number] #### [facility] [address] [place] [address] 97234 Audioprosthologist: Herb Quiroz MD PSAon 04-05-2021 Prostatic Specific Antigen 1.1 ng/mL Normal 0.0-4.0 [facility] Comment on above: Performed By: #### 1 [id number] #### [facility] [address] [place] [address] 65981 Audioprosthologist: Herb Quiroz MD PT INRon 04-05-2021 INR Coag (PPP) [Relative time] 1.0 {INR} Normal [facility] Comment on above: Result Comment: INR Reference Range: Normal reference range for INR on patients not on anticoagulant therapy: 0.9-1.1 General therapeutic range for patients on anticoagulant therapy: 2.0-3.5 Performed By: #### 1 [id number] #### [facility] [address] [place] [address] 56631 Audioprosthologist: Herb Quiroz MD Protime Patient 11.9 seconds Normal 9.8-13.4 [facility] Comment on above: Performed By: #### 1 [id number] #### [facility] [address] [place] [address] 92741 Audioprosthologist: Herb Quiroz MD Progress Note-Physicianon Progress Note-Physician Patient: ALLAN LARA Age: 70 years Sex: Male : 1950 Associated Diagnoses: None Author: GREGORY LUDWIG MD Physical Examination Diagnosis: SEPSIS. Neurologic: Alert, Oriented. Cardiac Exam: WNL, Normal rate, Regular rhythm, Good pulses equal in all extremities. Peripheral Pulse Evaluation: Arterial pulses: Bilateral, Upper extremity, 1+. Arterial pulses: Bilateral, Lower extremity, Diminished. Capillary Refill: WNL. Skin Turgor: DIMINISHED. Respiratory Exam: WNL, Lungs CTA. Clinical Data: Sepsis Inclusive ST Heart Rate Monitored: 114 bpm High Respiratory Rate: 16 br/min Mean Arterial Pressure, Cuff: 97 mmHg Peripheral Pulse Rate: 116 bpm High Systolic Blood Pressure: 125 mmHg Diastolic Blood Pressure: 84 mmHg Temperature Oral: 37 degC Glucose: 325 mg/dL High LACTATE: 3.1 mmol/L High POC Glucose: 151 mg/dL High Creatinine: 2.3 mg/dL High WBC: 25.6 x10 Normal [facility] TROPONIN HS 0HRon 04-05-2021 Troponin HS 0 Hr 8 pg/mL Normal [facility] Comment on above: Performed By: #### 1 [id number] #### [facility] [address] [place] [address] Audioprosthologist: Herb Quiroz MD TROPONIN HS 2HRon 04-05-2021 Delta Troponin 2 Hr 1 pg/mL Normal 0-14 [facility] Comment on above: Result Comment: The term acute myocardial infarction should be used when there is acute myocardial injury with clinical evidence of acute myocardial ischemia and the rise or fall of serial Troponin HS values (delta troponin) greater than or equal to 15 pg/mL with at least one Troponin HS value above the 99th percentile reference range Performed By: #### C [id number] ####[facility] [address] [place] [address] Medical Director: Herb Quiroz MD Troponin HS 2 Hr 7 pg/mL Normal [facility] Comment on above: Performed By: #### C [id number] ####[facility] [address] [place] [address] Medical Director: Herb Quiroz MD TROPONIN HS 6HRon 04-05-2021 Delta Troponin 6 Hr 3 pg/mL Normal 0-14 [facility] Comment on above: Result Comment: The term acute myocardial infarction should be used when there is acute myocardial injury with clinical evidence of acute myocardial ischemia and the rise or fall of serial Troponin HS values (delta troponin) greater than or equal to 15 pg/mL with at least one Troponin HS value above the 99th percentile reference range Performed By: #### 1 [id number] #### [facility] [address] [place] [address] Audioprosthologist: Herb Quiroz MD Troponin HS 6 Hr 10 pg/mL Normal 3-78 [facility] Comment on above: Performed By: #### 1 [id number] #### [facility] [address] [place] [address] 68274 Audioprosthologist: Herb Quiroz MD UAon 04-05-2021 Appearance, U Cloudy Normal [facility] Comment on above: Performed By: #### 1 [id number] #### [facility] [address] [place] [address] 08695 Audioprosthologist: Herb Quiroz MD Bilirubin, U See Footnote Normal [facility] Comment on above: Result Comment: Init ial positive results not confirmed. Interfering substances may include elevated urobilinogen. Performed By: #### 1 [id number] #### [facility] [address] [place] [address] 59715 Audioprosthologist: Herb Quiroz MD Blood, U Negative Normal Negative [facility] Comment on above: Performed By: #### 1 [id number] #### [facility] [address] [place] [address] 09535 Audioprosthologist: Herb Quiroz MD Calcium Oxalate Crystals Occasional Normal [facility] Comment on above: Performed By: #### 1 [id number] #### [facility] [address] [place] [address] 66285 Audioprosthologist: Herb Quiroz MD Color, U Sabrina Normal [facility] Comment on above: Performed By: #### 1 [id number] #### [facility] [address] [place] [address] 35621 Audioprosthologist: eHrb Quiroz MD Glucose Qual, U Negative Normal Negative [facility] Comment on above: Performed By: #### 1 [id number] #### [facility] [address] [place] [address] 14761 Audioprosthologist: Herb Quiroz MD Hyaline Cast 5 #/HPF Normal [facility] Comment on above: Performed By: #### 1 [id number] #### [facility] [address] [place] [address] 09780 Audioprosthologist: Herb Quiroz MD Ketones, U Trace Abnormal Negative [facility] Comment on above: Performed By: #### 1 [id number] #### [facility] [address] [place] [address] 03670 Audioprosthologist: Herb Quiroz MD Leukocyte Esterase, U Negative Normal Negative [facility] Comment on above: Performed By: #### 1 [id number] #### [facility] [address] [place] [address] 46156 Audioprosthologist: Herb Quiroz MD Mucous, U Occasional Normal [facility] Comment on above: Performed By: #### 1 [id number] #### [facility] [address] [place] [address] 51357 Audioprosthologist: Herb Quiroz MD Nitrite, U Negative Normal Negative [facility] Comment on above: Performed By: #### 1 [id number] #### [facility] [address] [place] [address] 49219 Audioprosthologist: Herb Quiroz MD pH, U 5.0 Normal 4.5-8.0 [facility] Comment on above: Performed By: #### 1 [id number] #### [facility] [address] [place] [address] 52118 Audioprosthologist: Herb Quiroz MD Protein, U 30 mg/dl Abnormal Negative [facility] Comment on above: Performed By: #### 1 [id number] #### [facility] [address] [place] [address] 80087 Audioprosthologist: Herb Quiroz MD RBC/HPF, U 4 #/HPF High 0-3 [facility] Comment on above: Performed By: #### 1 [id number] #### [facility] [address] [place] [address] 24858 Audioprosthologist: Herb Quiroz MD Specific [place], U 1.027 Normal 1.001-1.035 [facility] Comment on above: Performed By: #### 1 [id number] #### [facility] [address] [place] [address] 33696 Audioprosthologist: Herb Quiroz MD Squamous Epithelial Cells, U <1 Normal [facility] Comment on above: Performed By: #### 1 [id number] #### [facility] [address] [place] [address] 80483 Audioprosthologist: Herb Quiroz MD U MICRO Indicated Normal [facility] Comment on above: Performed By: #### 1 [id number] #### [facility] [address] [place] [address] 57531 Audioprosthologist: Herb Quiroz MD Urobilinogen Qual, U 4.0 mg/dl Abnormal <2.0 mg/dl [facility] Comment on above: Result Comment: EU/d l and mg/dl are equivalent units. Performed By: #### 1 [id number] #### [facility] [address] [place] [address] 12532 Audioprosthologist: Herb Quiroz MD WBC/HPF, U 3 #/HPF Normal 0-5 [facility] Comment on above: Performed By: #### 1 [id number] #### [facility] [address] [place] [address] Audioprosthologist: Herb Quiroz MD BASIC METABOLIC PANELon 03-06 Anion gap [Moles/Vol] 12 mmol/L Normal 10 - 20 [facility] Comment on above: Performed By: #### B MP #### [address] [address] Calcium [Mass/Vol] 8.8 mg/dL Normal 8.6 - 10.3 [facility] Comment on above: Performed By: #### B MP #### [address] [address] Chloride [Moles/Vol] 102 mmol/L Normal 98 - 107 [facility] Comment on above: Performed By: #### B MP #### [address] [address] Creatinine [Mass/Vol] 1.28 mg/dL Normal 0.50 - 1.30 [facility] Comment on above: Performed By: #### B MP #### [address] [address] GFR/1.73 sq M.predicted among non-blacks MDRD (S/P/Bld) [Vol rate/Area] 59 mL/min/{1.73_m2} Abnormal >90 [facility] Comment on above: Result Comment: CALC ULATIONS OF ESTIMATED GFR ARE PERFORMED USING THE 2020 CKD-EPI STUDY REFIT EQUATION WITHOUT THE RACE VARIABLE FOR THE IDMS-TRACEABLE CREATININE METHODS. https://jasn.asnjournals.org/content/early//ASN.279 7148638 Performed By: #### B MP #### [address] [address] Glucose [Mass/Vol] 201 mg/dL High 74 - 99 [facility] Comment on above: Performed By: #### B MP #### [address] [address] HCO3 (Bld) [Moles/Vol] 27 mmol/L Normal 21 - 32 [facility] Comment on above: Performed By: #### B MP #### [address] [address] Potassium [Moles/Vol] 4.7 mmol/L Normal 3.5 - 5.3 [facility] Comment on above: Performed By: #### B MP #### [address] [address] Sodium [Moles/Vol] 136 mmol/L Normal 136 - 145 [facility] Comment on above: Performed By: #### B MP #### [address] [address] Urea nitrogen [Mass/Vol] 17 mg/dL Normal 6 - 23 [facility] Comment on above: Performed By: #### B MP #### [address] [address] CBC AND DIFFERENTIALon 03-18 % AUTOMATED IMMATURE GRAN 1.5 % High 0.0 - 0.9 [facility] Comment on above: Result Comment: Maryam ture Granulocyte Count (IG) includes promyelocytes, myelocytes and metamyelocytes but does not include bands. Percent differential counts (%) should be interpreted in the context of the absolute cell counts (cells/L). Performed By: #### C BCDF #### [address] [address] Basophils (Bld) [#/Vol] 0.06 10*3/uL Normal 0.00 - 0.1 0 [facility] Comment on above: Performed By: #### C BCDF #### [address] [address] Basophils/100 WBC (Bld) 0.5 % Normal 0.0 - 2.0 [facility] Comment on above: Performed By: #### C BCDF #### [address] [address] Eosinophils (Bld) [#/Vol] 0.29 10*3/uL Normal 0.00 - 0.40 [facility] Comment on above: Performed By: #### C BCDF #### [address] [place] [address] Eosinophils/100 WBC (Bld) 2.5 % Normal 0.0 - 6.0 [facility] Comment on above: Performed By: #### C BCDF #### [address] [place] [address] Erythrocyte distribution width (RBC) [Ratio] 12.9 % Normal 11.5 - 14.5 [facility] Comment on above: Performed By: #### C BCDF #### [address] [address] Hematocrit (Bld) [Volume fraction] 46.1 % Normal 41.0 - 52.0 [facility] Comment on above: Performed By: #### C BCDF #### [address] [address] Hemoglobin (Bld) [Mass/Vol] 15.0 g/dL Normal 13.5 - 17.5 [facility] Comment on above: Performed By: #### C BCDF #### [address] [address] Lymphocytes (Bld) [#/Vol] 1.60 10*3/uL Normal 0.80 - 3.00 [facility] Comment on above: Performed By: #### C BCDF #### [address] [address] Lymphocytes/100 WBC (Bld) 13.8 % Normal 13.0 - 44.0 [facility] Comment on above: Performed By: #### C BCDF #### [address] [address] MCHC (RBC) [Mass/Vol] 32.5 g/dL Normal 32.0 - 36.0 [facility] Comment on above: Performed By: #### C BCDF #### [address] [address] MCV (RBC) [Entitic vol] 91 fL Normal 80 - 100 [facility] Comment on above: Performed By: #### C BCDF #### [address] [address] Monocytes (Bld) [#/Vol] 0.93 10*3/uL High 0.05 - 0.8 0 [facility] Comment on above: Performed By: #### C BCDF #### [address] [address] Monocytes/100 WBC (Bld) 8.0 % Normal 2.0 - 10.0 [facility] Comment on above: Performed By: #### C BCDF #### [address] [address] Neutrophils (Bld) [#/Vol] 8.55 10*3/uL High 1.60 - 5.50 [facility] Comment on above: Performed By: #### C BCDF #### [address] [address] Neutrophils/100 WBC (Bld) 73.7 % Normal 40.0 - 80.0 [facility] Comment on above: Performed By: #### C BCDF #### [address] [address] NUCLEATED RBC 0.0 /100 WBC Normal 0.0 - 0.0 [facility] Comment on above: Performed By: #### C BCDF #### [address] [address] Platelets (Bld) [#/Vol] 220 10*3/uL Normal 150 - 450 [facility] Comment on above: Performed By: #### C BCDF #### [address] [address] RBC 5.06 x10E12/L Normal 4.50 - 5.90 [facility] Comment on above: Performed By: #### C BCDF #### [address] [address] WBC (Bld) [#/Vol] 11.6 10*3/uL High 4.4 - 11.3 [facility] Comment on above: Performed By: #### C BCDF #### [address] [place] [place] [address] Radiologyon 09-03-2020 US Kidney - bilateral Normal [facility] Work Phone: US RENAL BILATon 09-03-2020 US RENAL BILAT Patient Name: ALLAN LARA STUDY: US RENAL BILAT; 09/03/2020 11:51 am INDICATION: bosniak 2F renal cysts, enlarged prostate. COMPARISON: None. ACCESSION NUMBER(S): [id number] ORDERING CLINICIAN: CONCETTA LEON TECHNIQUE: Multiple images of the kidneys were obtained . FINDINGS: RIGHT KIDNEY: Right kidney measures approximately 10.5 cm and is normal in size . There is a large cyst in the upper pole measuring 6.8 x 6.0 x 6.2 cm. There is an 8 mm nonobstructing calculus in the lower pole. No hydronephrosis. LEFT KIDNEY: Left kidney measures approximately 9.8 cm. There is a 4.9 x 4.1 x 4.2 cm midpole cyst. Left kidney is otherwise negative without hydronephrosis. BLADDER: The urinary bladder was distended. Left ureteral jet was documented. The urinary bladder is grossly negative. IMPRESSION: Bilateral cysts. No hydronephrosis. 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.1,N13.8) Bilateral renal cysts (753.10) (N28.1) Benign localized hyperplasia of prostate without urinary obstruction (600.20) (N40.0) Renal mass, right (593.9) (N28.89) Renal calculi (592.0) (N20.0) Orders Benign localized hyperplasia of prostate without urinary obstruction, Bilateral renal cysts, BPH with urinary obstruction, Renal calculi, Renal mass, right Cult, Urine; Status:Active; Requested for:19Aug2020; Perform:Lab Services - Lab To Draw (Non-Blood Test); Due:17Nov2020;Ordere d; For:Benign localized hyperplasia of prostate without urinary obstruction, Bilateral renal cysts, BPH with urinary obstruction, Renal calculi, Renal mass, right; Ordered By:Concetta Leon; Non TOE CLOSING MACHINE TENDER - Cytology; Status:Hold For - Specimen/Data Collection; Requested for:19Aug2020; Perform:Non TOE CLOSING MACHINE TENDER - Cytology; Due:17Nov2020;Ordere d; For:Benign localized hyperplasia of prostate without urinary obstruction, Bilateral renal cysts, BPH with urinary obstruction, Renal calculi, Renal mass, right; Ordered By:Concetta Leon; Site A : voided Specimen A : Urine Prostate Specific Antigen; Status:Active; Requested for:19Aug2020; Perform:Lab Services - Lab To Draw (Blood Test); Due:17Nov2020;Ordere d; For:Benign localized hyperplasia of prostate without urinary obstruction, Bilateral renal cysts, BPH with urinary obstruction, Renal calculi, Renal mass, right; Ordered By:Concetta Leon; Ultrasound Kidney Bilateral; Status:Hold For - Scheduling; Requested for:19Aug2020; Perform:[facility] Imaging; Due:17Nov2020;Ordere d; For:Benign localized hyperplasia of prostate without urinary obstruction, Bilateral renal cysts, BPH with urinary obstruction, Renal calculi, Renal mass, right; Ordered By:Concetta Leon; Radiologist to Determine Optimal Study : Y Requesting physician's phone/pager number? : [phone] What are the patient's signs and symptoms? : bosniak 2F renal cysts, enlarged prostate Urinalysis; Status:Active; Requested for:19Aug2020; Perform:Lab Services - Lab To Draw (Non-Blood Test); Due:17Nov2020;Ordere d; For:Benign localized hyperplasia of prostate without urinary obstruction, Bilateral renal cysts, BPH with urinary obstruction, Renal calculi, Renal mass, right; Ordered By:Concetta Leon; Patient Discussion/Summary renal calculi, renal mass, renal cysts (some complex) on noncontrasted imaging reviewed contrast CT scan of abdomen - cysts are complex Bosniak 2F and require monitoring enlarged prostate with obstruction taking daily tamsulosin reviewed dietary modifications required to help prevent recurrent stone formation. 1. 2000mg sodium restriction and reviewed foods that are high in sodium and how to monitor sodium intake. 2. increased water intake (2-3L/day or 70-100 ounces/day) 3. oxalate restriction and reviewed the list of high oxalate foods (spinach, nuts, rhubarb, chocolate, etc.). 4. avoid high doses of vitamin C and should avoid drinking large amounts of orange juice. 5. Avoid dark marco that contain phosphoric acid. 6. Avoid dark tea is high in oxalate, and to avoid caffeinated beverages and chocolate. 7. increased intake of lemon/limes (4-6 ounces/day). 8. Patient should not restrict calcium intake. 9. Decrease amount of protein (mainly animal) in your diet (ideally, only one serving of meat/day). 10. avoid energy drinks. 11. no cranberry juice or supplements reviewed results recommend returning in 6 months with labs, urine studies and renal ultrasound prior office phone [phone] KAROLYN Rendon [phone] fax [phone] Provider Impressions I spent 20 minutes with this patient greater than 50% of time was spent in counseling and coordination of care. See my assessment and plan for details Chief Complaint Renal Mass, Here to review ct scan KAROLYN Rendon Line [phone] Office Line [phone] History of Present Illnessincidental finding or renal mass has renal cysts and calculi enlarged prostate on tamsulosin HPI-admitted in March 2020 with mental status changes found to have pneumonia had abn CT scan without contrast showin. Hyperattenuating mass in the upper pole of left kidney (1.6 cm x 1.2 cm; 77 HU) could represent a complicated/hemorrha gic cyst or solid papillary renal cell carcinoma. 2. Nonobstructing 5 mm right lower pole renal calculus. was able to get insurance approval for CT abdomen with and without contrast to further evaluate renal masses no gross hematuria, dysuria, urgency, Jaclyn or straining NTF x 1 BM adeq no pain appetite ok Past medical/surgical history At risk for falls Auditory hallucinations COVID-19 Dementia Diabetes mellitus HTN (hypertension) Hyperlipemia Kidney neoplasm Schizoaffective disorder Allergies - no known drug allergies Family History: Mother lung cancer daughter age 7, defects Social History res (more content not included)... [facility] W/O IV CONTRAST on 08-13-2020 CT ABDOMEN W W/O IV CONTRAST Patient Name: ALLAN LARA STUDY: CT ABDOMEN W W/O IV CONTRAST; 08/13/2020 11:55 am INDICATION: renal mass vs hemorr cyst. COMPARISON: None. ACCESSION NUMBER(S): [id number] ORDERING CLINICIAN: CONCETTA LEON TECHNIQUE: CT of the abdomen was performed. MULTIPHASE KIDNEY protocol was performed including contiguous axial images through the abdomen at 3 mm slice thickness before and in arterial and delayed phases post contrast. Coronal and sagittal reconstructions at 3 mm slice thickness were performed. 100 ml of contrast material Optiray 350 were administered intravenously without immediate complication. FINDINGS: LOWER CHEST: There are bandlike opacities in both lung bases likely a combination of platelike atelectasis and/or postinflammatory scarring. ABDOMEN: LIVER: Liver: Within normal limits. BILE DUCTS: Bile ducts: Normal caliber. GALLBLADDER: Multiple dependent layering calcified gallstones. No wall thickening or pericholecystic inflammatory findings. PANCREAS: The pancreas appears unremarkable. SPLEEN: Within normal limits. ADRENAL GLANDS: Bilateral adrenal glands appear normal. KIDNEYS AND URETERS: There are multiple distinctly marginated masses with imperceptible santana in both kidneys. Most of these lesions have uniform nonenhancing attenuation approximating that of water. 1 at the upper right renal pole posteriorly measures 5.7 cm. 1 in the interpolar peripelvic right kidney measures 3.3 cm. 1 and the anterior upper pole of the left kidney measures 4.3 cm. 1 at the posterior upper left renal pole measures 8 mm. In the upper right renal pole there is a mass with Hounsfield units somewhat more than that of water. It measures 5.2 cm in AP dimension. It appears to have a 2nd locule slightly more attenuating. Additionally unenhanced images there a very thin visible internal septa. However, its Hounsfield unit measurements are identical on all phases of the exam approximating 24. The findings are consistent with a Bosniak type 2 lesion. In the anterior upper pole of the left kidney there is a 15 mm mass with imperceptible santana and attenuation more than that of water. However it has Hounsfield units of 52 are identical pre and post contrast administration and this is again consistent with Bosniak type 2 lesion. There is a nonobstructing stone in the lower right renal pole measuring 3 mm. No other collecting system stones are suspected. There is no hydro ureteral nephrosis or ureter stone. BOWEL: The stomach is unremarkable. Visible small bowel loops are normal in caliber without mural thickening. Colon is somewhat distended with stool from the level of the transverse colon through the splenic flexure to the visible segments of the descending colon suggesting considerable constipation. The appendix is not in the field of view. VESSELS: The aorta and IVC are within normal limits. PERITONEUM/RETROPERI TONEUM/LYMPH NODES: No ascites or free air, no fluid collection. No abdominopelvic lymphadenopathy is present. ABDOMINAL WALL: Visible pars the abdominal wall appear intact. BONES: No suspicious osseous lesions are identified. IMPRESSION: 1. Multiple renal cysts as detailed above. These include 2 very low suspicion Bosniak type 2 lesions 1 in the anterior upper right renal pole in 1 at the anterior upper left renal pole. 2. Considerable constipation as detailed above. 3. 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 : Unknown Patient taking Metformin or Derivatives? : Unknown Radiologist to Determine Optimal Study : Y Requesting physician's phone/pager number? : [phone] What are the patient's signs and symptoms? : incidental finding of renal mass incompletely characterized on CT without contrast 03/26 Renal Function Panel; Status:Active; Requested for:29Jul2020; Perform:Lab Services - Lab To Draw (Blood Test); Due:[id number];Ordere d; For:Bilateral renal cysts, BPH with urinary obstruction, Renal calculi, Renal mass, right; Ordered By:Concetta Leon; Patient Discussion/Summary renal calculi, renal mass, renal cysts (some complex) on noncontrasted imaging enlarged prostate with obstruction taking daily tamsulosin reviewed dietary modifications required to help prevent recurrent stone formation. 1. 2000mg sodium restriction and reviewed foods that are high in sodium and how to monitor sodium intake. 2. increased water intake (2-3L/day or 70-100 ounces/day) 3. oxalate restriction and reviewed the list of high oxalate foods (spinach, nuts, rhubarb, chocolate, etc.). 4. avoid high doses of vitamin C and should avoid drinking large amounts of orange juice. 5. Avoid dark marco that contain phosphoric acid. 6. Avoid dark tea is high in oxalate, and to avoid caffeinated beverages and chocolate. 7. increased intake of lemon/limes (4-6 ounces/day). 8. Patient should not restrict calcium intake. 9. Decrease amount of protein (mainly animal) in your diet (ideally, only one serving of meat/day). 10. avoid energy drinks. 11. no cranberry juice or supplements recommend obtaining lab draw for renal function and CT urogram then return to clinic after Ct scan is obtained office phone [phone] KAROLYN Rendon [phone] Provider Impressions I spent 20 minutes with this patient greater than 50% of time was spent in counseling and coordination of care. See my assessment and plan for details Chief Complaint New Patient, Hospital f/u Renal Mass KAROLYN Rendon Line [phone] Office Line [phone] History of Present Illnessincidental finding or renal mass has renal cysts and calculi enlarged prostate on tamsulosin HPI-admitted in March 2020 with mental status changes found to have pneumonia had abn CT scan without contrast showin. Hyperattenuating mass in the upper pole of left kidney (1.6 cm x 1.2 cm; 77 HU) could represent a complicated/hemorrha gic cyst or solid papillary renal cell carcinoma. 2. Nonobstructing 5 mm right lower pole renal calculus. no gross hematuria, dysuria, urgency, Jaclyn or straining NTF x 1 BM adeq no pain appetite ok Past medical/surgical history At risk for falls Auditory hallucinations COVID-19 Dementia Diabetes mellitus HTN (hypertension) Hyperlipemia Kidney neoplasm Schizoaffective disorder Allergies - no known drug allergies Family History: Mother lung cancer daughter age 7, defects Social History resides in [facility] Review of Systems all other systems have been reviewed and are negative for complaint Constitutional: no fever, no chills and not feeling poorly. Eyes: no eyesight problems. ENT: no hearing loss, no nosebleeds and no sore throat. Cardiovascular: no chest pain, no palpitations and no extremity edema. Respiratory: no shortness of breath, no wheezing, no cough and no shortness of breath during exertion. Gastrointestinal: no abdominal pain, no constipation, no heartburn, no diarrhea, no vomiting and no blood in stools. Genitourinary: no dysuria, no incontinence, normal micturition and no testicular pain. Musculoskeletal: no arthralgias and no gait abnormality. Integumentary: no skin lesions, no skin wound and no change in a mole. Neurological: no confusion, no dizziness, no fainting and no difficulty walking. Psychiatric: not suicidal, no anxiety and no depression. All other systems have been reviewed and are negative for complaint. Past Medical History Problems History of Altered mental status, unspecified (780.97) (R41.82) Resolved Date: 29 Jul 2020 Family History Mother Family history of lung cancer (V16.1) (Z80.1) Social History Problems Never a smoker No alcohol use Allergies Medication No Known Drug Allergies Recorded By: Julieta Flanagan; (more content not included)... Normal Touchworks XR Hand - right PA and Later al and Obliqueon 07-22-2020 IMPRESSION: 1. 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 2. Mild degenerative changes. 3. Atherosclerotic disease. 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 Mild degenerative changes of the first carpal metacarpal joint with mild joint space narrowing and mild hypertrophic change. Moderate joint space narrowing of the first metacarpal phalangeal joint. Mild joint space narrowing of the interphalangeal joints. Atherosclerotic calcification of the vasculature. 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 Mild degenerative changes of the first carpal metacarpal joint with mild joint space narrowing and mild hypertrophic change. Moderate joint space narrowing of the first metacarpal phalangeal joint. Mild joint space narrowing of the interphalangeal joints. Atherosclerotic calcification of the vasculature. IMPRESSION IMPRESSION: 1. 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 2. Mild degenerative changes. 3. Atherosclerotic disease. Electrician'S Assistant: [facility] Transcribe Date/Time: Jul 22 2020 2:15P Dictated by : TROY STILES MD This examination was interpreted and the report reviewed and electronically signed by: TROY STILES MD on Jul 22 2020 2:16PM EST [facility] Radiology Study observation (narrative) Merry Jc XR Hand - right PA and Later al and ObliqueOrdered By: Ccf Provider on 07-22-[address] [facility] COVID-19on 01-27-2020 COVID-19, NAAT Not Detected Normal Not Detect [facility] Comment on above: Result Comment: Brian loya NAAT: Negative results should be treated as presumptive and, if inconsistent with clinical signs and symptoms or necessary for patient management, should be tested with an alternative molecular assay. Negative results do not preclude SARS-CoV-2 infection and should not be used as the sole basis for patient management decisions. This test has been authorized by the FDA under an Emergency Use Authorization (EUA) for use by authorized laboratories. Fact sheet for Healthcare Providers: https://www.fda.gov/media/097134/download Fact sheet for Patients: https://www.fda.gov/media/148826/download METHODOLOGY: Isothermal Nucleic Acid Amplification Performed By: #### C OVPC #### [facility] [address] [place] [address] Folateon 01-17-2020 Folate 13.6 ng/mL Normal 7.3-26.1 [facility] Comment on above: Result Comment: Any hemolysis in specimen will increased Folate results, consider recollection. As of 10/14/15, the methodology has changed. Results from this methodology should not be compared with results from previous methodology. Performed By: #### F OLAT #### [facility] [address] [place] [address] Hemoglobin A1con 01-17-2020 HbA1c (Bld) [Mass fraction] 6.1 % Critically high 4.8-5.9 [facility] Comment on above: Performed By: #### A 1C #### [facility] [address] [place] [address] Lipid Panelon 01-17-2020 Cholesterol [Mass/Vol] 118 mg/dL Normal 0-199 [facility] Comment on above: Result Comment: ATP III Cholesterol classification is Desirable. Performed By: #### L IPID #### [facility] [address] [place] [address] Cholesterol in HDL [Mass/Vol] 45 mg/dL Normal 40-59 [facility] Comment on above: Result Comment: ATP III HDL Cholesterol Classification is Desirable. Expected Values: Males: >55 = No Risk 35-55 = Moderate Risk <35 = High Risk Females: >65 = No Risk 45-65 = Moderate Risk <45 = High Risk NCEP Guidelines: Third Report July 2000 >59 = negative risk factor for CHD <40 = major risk factor for CHD Performed By: #### L IPID #### [facility] [address] [place] [address] Cholesterol in LDL [Mass/Vol] 40 mg/dL Normal 0-129 [facility] Comment on above: Result Comment: ATP III LDL Classification is Optimal. Performed By: #### L IPID #### [facility] [address] [place] [address] Triglyceride [Mass/Vol] 163 mg/dL Critically high 0-150 [facility] Comment on above: Result Comment: ATP III Triglycerides Classification is Borderline High. Performed By: #### L IPID #### [facility] [address] [place] [address] TSH w/out Reflexon 0 TSH Qn 2.690 uIU/mL Normal 0.440-3.86 [facility] Comment on above: Performed By: #### T SH #### [facility] [address] [address] Vitamin B12on 01-17-2020 Cobalamin (Vitamin B12) [Mass/Vol] 379 pg/mL Normal 232-1245 [facility] Comment on above: Performed By: #### B 12 #### [facility] [address] [address] Vitamin Don 01-17-2020 Vitamin D 33.0 ng/mL Normal 30.0-100.0 [facility] Comment on above: Result Comment: (30- 100 ng/mL) Optimum Level This assay accurately quantifies the sum of vitamin D3, 25-Hydroxy and vitamin D2, 25-Hyroxy. Performed By: #### V ITD #### [facility] [address] [place] [address] Vital Signs Date Time Vital Sign Value Performing Clinician Facglenda holland 07-06-2022 15:28-0400 Body temperature 98.6 [degF] Dr. Simone Messer Work Phone: [facility] 07-06-2022 15:28-0400 Diastolic blood pressure 82 mm[Hg] Dr. Simone Messer Work Phone: [facility] 07-06-2022 15:28-0400 Heart rate 101 /min Dr. Simone Messer Work Phone: [facility] 07-06-2022 15:28-0400 Respiratory rate 18 /min Dr. Simone Messer Work Phone: [facility] 07-06-2022 15:28-0400 SaO2% (BldA) [Mass fraction] 97 % Dr. Simone Messer Work Phone: [facility] 07-06-2022 15:28-0400 Systolic blood pressure 146 mm[Hg] Dr. Simone Messer Work Phone: [facility] 07-06-2022 05:36-0400 Body mass index (BMI) [Ratio] 23.8 kg/m2 Dr. Simone Messer Work Phone: [facility] 07-06-2022 05:36-0400 Body weight 72.[address] Simone Messer Work Phone: [facility] 07-04-2022 09:47-0400 Body height 175.[address] Simone Messer Work Phone: [facility] 07-04-2022 05:02-0400 Body temperature 98.1 [degF] [facility] 07-04-2022 05:02-0400 Diastolic blood pressure 71 mm[Hg] [facility] 07-04-2022 05:02-0400 Heart rate 111 /min [facility] 07-04-2022 05:02-0400 Respiratory rate 16 /min [facility] 07-04-2022 05:02-0400 SaO2% (BldA) [Mass fraction] 98 % [facility] 07-04-2022 05:02-0400 Systolic blood pressure 138 mm[Hg] [facility] 07-04-2022 02:33-0400 Body height 175.26 cm [facility] 07-04-2022 02:33-0400 Body mass index (BMI) [Ratio] 23.7 kg/m2 [facility] 07-04-2022 02:33-0400 Body weight 72.8 kg [facility] 05-10-2021 14:26-0500 Body height 175.26 cm Emad H Elbadawy Work Phone: [facility] Work Phone: 05-10-2021 14:26-0500 Body mass index (BMI) [Ratio] 24.44 kg/m2 Emad H Elbadawy Work Phone: VH[facility]to[facility] Work Phone: 05-10-2021 14:26-0500 Body surface area Derived from formula 1.91 m2 Emad H Elbadawy Work Phone: UC[facility]gqnhhw[facility]ftmus[facility] Work Phone: 05-10-2021 14:26-0500 Body weight 75.07 kg Emad H Elbadawy Work Phone: DS-Ekahvwb[facility]Ceqkfug[facility] Work Phone: 05-10-2021 14:26-0500 Diastolic blood pressure 80 mm[Hg] Emad H Elbadawy Work Phone: YJ[facility]ozqqw[facility]itab[facility] Work Phone: 05-10-2021 14:26-0500 Heart rate 113 /min Emad H Elbadawy Work Phone: NZ-Rdyawsp-[facility]akwvpd[facility] Work Phone: 05-10-2021 14:26-0500 Systolic blood pressure 114 mm[Hg] Emad H Elbadawy Work Phone: NW-Kmogxod[facility]Kjywsoo[facility] Work Phone: 08-19-2020 10:53-0400 Body height 175.26 cm Concetta Leon HAT FORMER-GROUP ACCOUNT DIRECTOR Work Phone: JF-Zcutmtd-Vkdbus 202 Work Phone: 08-19-2020 10:53-0400 Body mass index (BMI) [Ratio] 25.7 kg/m2 Concetta Leon HAT FORMER-GROUP ACCOUNT DIRECTOR Work Phone: BC-Efypbag-Uvtluc 202 Work Phone: 08-19-2020 10:53-0400 Body surface area Derived from formula 1.95 m2 Concetta Leon HAT FORMER-GROUP ACCOUNT DIRECTOR Work Phone: PV-Badfbrw-Fahdjb 202 Work Phone: 08-19-2020 10:53-0400 Body weight 78.93 kg Concetta Leon APRN-GROUP ACCOUNT DIRECTOR Work Phone: VB-Ggpnvem-Zhktuy 202 Work Phone: 08-19-2020 10:53-0400 Diastolic blood pressure 69 mm[Hg] Concetta Leon APRN-GROUP ACCOUNT DIRECTOR Work Phone: JV-Xlwvzsh-Cgfkfx 202 Work Phone: 08-19-2020 10:53-0400 Heart rate 105 /min Concetta Leon APRN-GROUP ACCOUNT DIRECTOR Work Phone: ZY-Htvfyov-Pfnylr 202 Work Phone: 08-19-2020 10:53-0400 Systolic blood pressure 101 mm[Hg] Concetta Leon APRN-GROUP ACCOUNT DIRECTOR Work Phone: FW-Dhhffuc-Pvlguj 202 Work Phone: 07-29-2020 13:19-0400 Body height 175.26 cm Concetta Leon APRN-GROUP ACCOUNT DIRECTOR Work Phone: [facility] Work Phone: 07-29-2020 13:19-0400 Body mass index (BMI) [Ratio] 25.75 kg/m2 Concetta Leon APRN-GROUP ACCOUNT DIRECTOR Work Phone: WX-Qhomdlr-RU [facility] Work Phone: 07-29-2020 13:19-0400 Body surface area Derived from formula 1.95 m2 Concetta Carolyn HAT FORMER-GROUP ACCOUNT DIRECTOR Work Phone: SV-Zqkhjfw-NG [facility] Work Phone: 07-29-2020 13:19-0400 Body weight 79.1 kg Concetta Carolyn HAT FORMER-GROUP ACCOUNT DIRECTOR Work Phone: PV-Ovkrcoz-AC [facility] Work Phone: 07-29-2020 13:19-0400 Diastolic blood pressure 75 mm[Hg] Concetta Carolyn HAT FORMER-GROUP ACCOUNT DIRECTOR Work Phone: EA-Vitpuni-KZ [facility] Work Phone: 07-29-2020 13:19-0400 Heart rate 115 /min Concetta Carolyn HAT FORMER-GROUP ACCOUNT DIRECTOR Work Phone: IS-Jiljseq-AE [facility] Work Phone: 07-29-2020 13:19-0400 Systolic blood pressure 126 mm[Hg] Concetta Carolyn HAT FORMER-GROUP ACCOUNT DIRECTOR Work Phone: DB-Fmrmhmc-AR [facility] Work Phone: Encounters Encounter Date Encounter Type Care Provider Facility Start: 01-03-2025 ambulatory Kendra Herrera Facility:B Start: 01-03-2025 End: 01-07-2025 Evaluation and management of inpatient Simone Messer Facility:[facility] Start: 03-19-2024 ambulatory Darshan Quiroz Fac ility:[facility] Start: 03-19-2024 End: 03-22-2024 Evaluation and management of inpatient Darshan Quiroz Facility:[facility] Start: 03-09-2024 End: 03-10-2024 Emergency department patient visit Jose Taveras Facility:[facility] Start: 09-30-2022 End: 09-30-[address] Simone Messer Work Phone: [facility] Work Phone: Start: 09-30-2022 End: 09-30-[address] Simone Messer Work Phone: [facility] Work Phone: Start: 07-06-2022 Non-patient / Non-visit Dr. Dat Messer Work Phone: [facility] Start: 07-05-2022 Non-patient / Non-visit Dr. Dat Messer Work Phone: [facility] Start: 07-05-2022 Non-patient / Non-visit Dr. Dat Messer Work Phone: [facility] Start: 07-04-2022 Non-patient / Non-visit Dr. Dat Messer Work Phone: [facility] Start: 07-04-2022 End: 07-06-2022 Evaluation and management of inpatient [facility] Start: 09-24-2021 [facility] HAT FORMER.GROUP ACCOUNT DIRECTOR Work Phone: [facility] Comment on above: Essential hypertensi on (Primary Dx); Renal mass Start: 09-20-2021 [facility] HAT FORMER.GROUP ACCOUNT DIRECTOR Work Phone: [facility] Comment on above: Stage 3 chronic kidn ey disease, unspecified whether stage 3a or 3b CKD (HCC) (Primary Dx); Muscle weakness (generalized) Start: 09-15-2021 [facility] HAT FORMER.GROUP ACCOUNT DIRECTOR Work Phone: [facility] Comment on above: Calculus of gallblad blanca with acute on chronic cholecystitis without obstruction (Primary Dx); Diarrhea, unspecified type Start: 09-13-2021 [facility] HAT FORMER.GROUP ACCOUNT DIRECTOR Work Phone: [facility] Comment on above: Essential hypertensi on (Primary Dx); Heartburn Start: 09-10-2021 [facility] summerN.GROUP ACCOUNT DIRECTOR Work Phone: [facility] Comment on above: Diabetes mellitus wi thout complication (HCC) (Primary Dx); Hyperlipidemia, unspecified hyperlipidemia type Start: 08-16-2021 [facility] Work Phone: [facility] Comment on above: Stage 3 chronic kidn ey disease, unspecified whether stage 3a or 3b CKD (HCC) (Primary Dx); Constipation, unspecified constipation type Start: 08-11-2021 [facility] summerN.GROUP ACCOUNT DIRECTOR Work Phone: [facility] Comment on above: Diabetes mellitus wi thout complication (HCC) (Primary Dx); Hyperlipidemia, unspecified hyperlipidemia type Start: 07-28[facility]20[facility] HAT FORMER.GROUP ACCOUNT DIRECTOR Work Phone: [facility] Comment on above: Diabetes mellitus wi thout complication (HCC) (Primary Dx); Constipation, unspecified constipation type Start: 07-22-2021 [facility] summerN.GROUP ACCOUNT DIRECTOR Work Phone: [facility] Comment on above: Essential hypertensi on (Primary Dx); Rhinorrhea Start: 06-24-20[facility] HAT FORMER.GROUP ACCOUNT DIRECTOR Work Phone: [facility] Comment on above: Essential hypertensi on (Primary Dx); Rhinorrhea Start: 06-21-20[facility] HAT FORMER.GROUP ACCOUNT DIRECTOR Work Phone: [facility] Comment on above: Renal mass (Primary Dx); Muscle weakness (generalized) Start: 06-16-2021 [facility] summerN.GROUP ACCOUNT DIRECTOR Work Phone: [facility] Comment on above: Stage 3 chronic kidn ey disease, unspecified whether stage 3a or 3b CKD (HCC) (Primary Dx); Constipation, unspecified constipation type Start: 06-04-2021 [facility] summerN.GROUP ACCOUNT DIRECTOR Work Phone: [facility] Comment on above: Hypothyroidism, unsp ecified type (Primary Dx); Schizoaffective disorder, bipolar type (HCC) Start: 05-26-2021 ambulatory [facility] HAT FORMER.GROUP ACCOUNT DIRECTOR Work Phone: [facility] Comment on above: Essential hypertensi on (Primary Dx); Weight loss Start: 05-14-2021 ambulatory [facility] HAT FORMER.GROUP ACCOUNT DIRECTOR Work Phone: [facility] Comment on above: Renal mass (Primary Dx); Muscle weakness (generalized) Start: 05-10-2021 Office outpatient vi sit 15 minutes Emad H Billydionisiojustin Work Phone: [facility]xl[facility] Work Phone: Start: 04-29-2021 Chart Update Concetta MONTOYA RN-GROUP ACCOUNT DIRECTOR Work Phone: [facility]emc[facility] Work Phone: Start: 09-16-2020 AUDIT Concetta MONTOYA RN-GROUP ACCOUNT DIRECTOR Work Phone: GM-Scymutn-CdtbbwgCH[facility] Work Phone: Start: 09-04-2020 Chart Update Concetta MONTOYA RN-GROUP ACCOUNT DIRECTOR Work Phone: YC-Sexotyy-Taocut 202 Work Phone: Start: 08-19-2020 FUV, Provider: Concetta Leon, Status: Pen, Time: 11:00 AM Concetta Leon HAT FORMER-GROUP ACCOUNT DIRECTOR Work Phone: OX-Imnwxpy-XhfygsdCH[facility] Work Phone: Start: 08-17-2020 Chart Update Concetta MONTOYA RN-GROUP ACCOUNT DIRECTOR Work Phone: IK-Diyvrfy-LpaiprxCH[facility] Work Phone: Start: 08-12-2020 AUDIT Concetta MONTOYA RN-GROUP ACCOUNT DIRECTOR Work Phone: FY-Hnjxmbi-GLWell[facility] Work Phone: Start: 07-22-2020 End: 07-22-2020 Subsequent hospital visit by physician Xr [facility] Work Phone: Radiology Comment on above: Hand right Procedures Date Procedure Procedure Detail Performing Clinician Start: 09-30-2022 Computed tomography of abdomen and pelvis with contrast Dr. Simone Messer Work Phone: Start: 07-04-2022 Bacteria identified in Blood by Culture Dr. Simone Messer Work Phone: Start: 07-04-[address] Simone Messer Work Phone: Start: 07-04-2022 Computed tomography of abdomen and pelvis with intravenous contrast Dr. Simone Messer Work Phone: Start: 07-04-2022 Plain chest X-ray Start: 07-22-2020 Radex hand minimum 3 views Jem Hall MD Work Phone: Start: 01-17-2020 Lipid 1996 panel - S jose or Plasma [facility] [place] Work Phone: Start: 09-12-2017 Colonoscopy [facility] HAT FORMER.GROUP ACCOUNT DIRECTOR Work Phone: Urine culture Dr. Simone Hylton en Work Phone: Plan of Treatment Date Care Activity Detail Author Start: 09-13-2027 Colonoscopy COLONOSCOPY [facility] Start: 09-13-2027 COLORECTAL CANCER SCREENING COLORECTAL CANCER SCREENING [facility] Start: 09-13-2027 Screening for malignant neoplasm of colon [facility] Start: 01-16-2025 Lipid panel Lipid Screening [facility] Start: 11-05-2023 Covid-19 Vaccine ( season) Covid-19 Vaccine ( season) [facility] Start: 11-05-2023 Influenza vaccination Influenza Vaccine (#1) [facility] Start: 07-16-2023 RSV Vaccine (1 - 1-dose 75+ series) RSV Vaccine (1 - 1-dose 75+ series) [facility] Start: 03-06-2023 Advance Directive Discussion Advance Directive Discussion [facility] Start: 01-16-2023 DIABETES SCREEN DIABETES SCREEN [facility] Start: 01-16-2023 Diabetes Screening Diabetes Screening [facility] Start: 07-06-2022 Patient discharge [facility] Start: 07-05-2022 Care planning and problem solving actions [facility] Start: 07-05-2022 Blood chemistry [facility] Start: 07-04-2022 Following clinical pathway protocol [facility] Start: 07-04-2022 Verification routine [facility] Start: 07-04-2022 Vitamin D, 25-hydroxy measurement [facility] Start: 07-04-2022 Assessment of risk of venous thromboembolism [facility] Start: 07-04-2022 Cardiac monitoring [facility] Start: 07-04-2022 Catheterization of vein [facility] Start: 07-04-2022 Consultation [facility] Start: 07-04-2022 Continuous pulse oximetry [facility] Start: 07-04-2022 Enteric precautions [facility] Start: 07-04-2022 Insertion of catheter into peripheral vein [facility] Start: 07-04-2022 Measuring intake and output [facility] Start: 07-04-2022 Notification of physician [facility] Start: 07-04-2022 Oxygen therapy [facility] Start: 07-04-2022 Providing care according to standard [facility] Start: 07-04-2022 Referral to occupational therapist [facility] Start: 07-04-2022 Referral to service [facility] Start: 07-04-2022 Vital signs measurements [facility] Start: 07-04-2022 [facility] Start: 07-04-2022 Computed tomography of abdomen and pelvis with intravenous contrast Abdomen/Pelvis W IV Cont ONLY [facility] Start: 07-04-2022 CT Abdomen and Pelvis W contrast IV [facility] Start: 07-04-2022 Admission procedure [facility] Start: 07-04-2022 End: 07-04-2022 [facility] Start: 07-04-2022 End: 07-04-2022 Blood culture [facility] Start: 07-04-2022 Inhalation therapy procedure [facility] Start: 07-04-2022 [facility] Start: 11-10-2021 FUV, Provider: Concetta Leon, Status: Pen, Time: 11:00 AM FUV, Provider: Concetta Leon, Status: Pen, Time: 11:00 AM KZ-Ktokkto-Wxoezyv [facility] 46[address] Work Phone: Start: 11-04-2021 Influenza vaccination [facility] Start: 07-22-2021 BP CONTROLLED (<130/80) BP CONTROLLED (<130/80) [facility] Start: 05-10-2021 FUV, Provider: Concetta Leon, Status: Pen, Time: 2:20 PM FUV, Provider: Concetta Leon, Status: Pen, Time: 2:20 PM [facility]uvwefv[facility] Work Phone: Start: 03-22-2021 FUV, Provider: Concetta Leon, Status: Pen, Time: 11:00 AM FUV, Provider: Concetta Leon, Status: Pen, Time: 11:00 AM DE-Koaciav-Lqcrfv 202 Work Phone: Start: 03-06-2021 ADVANCE DIRECTIVE DISCUSSION ADVANCE DIRECTIVE DISCUSSION [facility] Start: 02-06-2021 ANNUAL PCP TEAM CHRONIC DISEASE VISIT ANNUAL PCP TEAM CHRONIC DISEASE VISIT [facility] Start: 11-04-2020 Influenza vaccination INFLUENZA (#1) [facility] Start: 08-19-2020 FUV, Provider: Concetta Leon, Status: Pen, Time: 11:00 AM FUV, Provider: Concetta Leon, Status: Pen, Time: 11:00 AM [facility]dlw[facility] Work Phone: Start: 2013 Pneumococcal Vaccine: 65+ (1 of 1 - PCV) Pneumococcal Vaccine: 65+ (1 of 1 - PCV) [facility] Start: 2013 PNEUMOCOCCAL: 65+ (1 - PCV) PNEUMOCOCCAL: 65+ (1 - PCV) [facility] Start: 2013 PNEUMOVAX AGE 65 AND OVER WITH 5YR LOOKBACK (#1) PNEUMOVAX AGE 65 AND OVER WITH 5YR LOOKBACK (#1) [facility] Start: 1998 SHINGRIX VACCINE (1 of 2) SHINGRIX VACCINE (1 of 2) [facility] Start: 1993 COLOGUARD (FIT-DNA) COLOGUARD (FIT-DNA) [facility] Start: [address] COLONOGRAPHY [facility] Start: 1993 FECAL OCCULT BLOOD FECAL OCCULT BLOOD [facility] Start: 1993 Screening for malignant neoplasm of colon [facility] Start: 1993 SIGMOIDOSCOPY SIGMOIDOSCOPY [facility] Start: 07-16-1983 LIPID SCREEN LIPID SCREEN [facility] Start: 07-16-1967 Urine microalbumin profile [facility] Start: 1966 Anxiety Screening Anxiety Screening [facility] Start: 1966 BP CONTROLLED (<130/80) BP CONTROLLED (<130/80) [facility] Start: 1966 Depression Screening Depression Screening [facility] Start: 1966 HEPATITIS C SCREENING HEPATITIS C SCREENING [facility] Start: 1966 Hepatitis C screening Hepatitis C Screening [facility] Start: 1960 Adult depression screening assessment DEPRESSION SCREENING [facility] Start: 1953 COVID-19 VACCINE (#1) COVID-19 VACCINE (#1) [facility] Start: 1953 COVID-19 VACCINE (1) COVID-19 VACCINE (1) [facility] Start: 01-15-1949 COVID-19 VACCINE (#1) COVID-19 VACCINE (#1) [facility] Anion gap measurement [facility] Bacteria identified in Blood by Culture Blood Culture [facility] Bacteria identified in Blood by Culture Blood Culture [facility] Bacteria identified in Urine by Culture Urine Culture [facility] BUN/Creatinine ratio [facility] Calcium [Mass/volume ] in Serum or Plasma [facility] Carbon dioxide, tota l [Moles/volume] in Serum or Plasma [facility] Chloride [Moles/volu me] in Serum or Plasma [facility] Clostridioides diffi cile DNA [Presence] in Unspecified specimen by AARTI with probe detection [facility] Creatinine [Moles/vo lume] in Serum or Plasma [facility] Gastrointestinal pat hogens panel - Stool by AARTI with probe detection [facility] Glucose [Mass/volume ] in Serum or Plasma [facility] Hematocrit [Volume Fraction] of Blood [facility] Hemoglobin [Mass/vol ume] in Blood [facility] Hemoglobin A1c/Hemoglobin.total in Blood [facility] Leukocytes [#/volume ] in Blood [facility] Mean corpuscular hem oglobin concentration determination [facility] Mean corpuscular hem oglobin determination [facility] Measurement of renal function [facility] Neutrophil count [facility] Neutrophil percent differential count [facility] Patient Education ED Diarrhea, U nknown Cause [facility] Work Phone: Patient referral [facility] Work Phone: Platelets [#/volume] in Blood [facility] Potassium [Moles/vol ume] in Serum or Plasma [facility] Red blood cell count [facility] Red cell distributio n width determination [facility] Sodium [Moles/volume ] in Serum or Plasma [facility] Urea nitrogen [Mass/ volume] in Serum or Plasma [facility] Immunizations Immunization Date Immunization Notes Care Provider Fa cility 07-04-2022 tetanus toxoid, redu shivani diphtheria toxoid, and acellular pertussis vaccine, adsorbed [facility] Payers Date Payer Category Payer Self-pay [id number] 2024 Unknown [id number] 2024 Unknown [id number] 2016 Medicaid [facility] MEDICAID MYC ARE [facility] MEDICAID [id number] 2016-Present [phone] [address] [place] [address] Medicaid [id number] 2016 Medicare [id number] 2016 Medicare [facility] MEDICARE MYC ARE [facility] MEDICARE [id number] 2016-Present [phone] [address] [place] [address] Medicare [id number] Unknown Unknown [facility] AUTH REQUIR ED SEE NOTE [id number] Unknown [id number] Unknown [id number] Unknown [id number] Unknown [id number] Unknown [id number] Unknown [id number] Unknown [id number] Unknown [id number] Unknown [id number] Unknown [id number] Unknown [id number] Unknown [id number] Social History Date Type Detail Facility Start: 09-27-2017 End: 02-08-2020 No alcohol use No alcohol use [facility] Work Phone: Start: 04-12-2010 End: 09-05-2017 Tobacco smoking status NHIS Never smoked tobacco [facility] Work Phone: Start: 04-12-2010 End: 09-05-2017 Tobacco use and exposure Smokeless tobacco non-user [facility] Work Phone: Start: 09-27-2017 Alcohol intake Current drinke r of alcohol (finding) [facility] Start: 04-12-2010 History SDOH Alcohol Comment no use in [address] [facility] Start: 1950 Sex Assigned At Not on file [facility] Start: 06-22-2020 End: 04-26-2021 Exposure to SARS-CoV-2 (event) Not sure [facility] Start: 07-04-2022 End: 07-04-2022 Tobacco smoking status NHIS Unknown if ever smoked [facility] Start: 07-26-2019 None [facility] Start: 01-15-2020 - [facility] Start: 07-26-2019 Non-smoker [facility] Start: 1950 Sex Assigned At Male [facility] Start: 09-27-2017 End: 02-08-2020 Tobacco use panel [facility] National Score (1-100), lower number is lower risk Not on file [facility] Goals Date Patient Goal Desired Activity /State Functional Status Date Assessment Result Facility 07-06-2022 Functional status Ambulates;Bathroom Priv ilege [facility] Work Phone: Mental Status Date Assessment Result Facility 07-06-2022 Cognitive function Voice/Name [facility] Work Phone: Clinical Notes 07-22-2020 to 01-07-2025 Note Date & Type Note Facility 01-07-2025 Note [facility] Medical Records Department [address] [place] [address] Discharge Summary 01/07/25 1444 MR#: [id number] Acct: [id number] Name: ALLAN LARA Rep #: [id number] : 1950 74 From: Kendra Herrera MD PCP: Dr. Simone Messer MD Status:ADM IN [place] [facility] [id number] Providers Date of Admission: 01/03/25 Date of Discharge: 01/07/25 Primary Care Physician: Dr. Simone Messer MD Reason For Visit: ASPIRATION/ASPIRATION PNEUMONIA Diagnosis Discharge Diagnosis (1) Aspiration pneumonia: Status: Acute Code(s): J69.0 - Pneumonitis due to inhalation of food and vomit (2) Leukocytosis: Status: Acute Code(s): D72.829 - Elevated white blood cell count, unspecified (3) Constipation: Status: Acute Code(s): K59.00 - Constipation, unspecified (4) Prediabetes: Status: Acute Code(s): R73.03 - Prediabetes (5) Urinary retention: Status: Acute Code(s): R33.9 - Retention of urine, unspecified Plan # Acute hypoxia secondary to aspiration pneumonia #Urinary retention #Constipation #Normocytic anemia #Prediabetes # Hypothyroidism # Anxiety # GERD # Hypertension Medications at Discharge Home Medications amlodipine 10 mg tablet 10 mg PO QHS BP 07/30/17 levothyroxine 25 mcg tablet 50 mcg PO DAILY THYROID 07/30/17 tamsulosin 0.4 mg capsule 0.4 mg PO QHS PROSTATE 07/30/17 atorvastatin 10 mg tablet 10 mg PO QHS cholesterol 07/04/22 cholecalciferol (vitamin D3) 125 mcg (5,000 unit) tablet (Vitamin D3) 125 mcg PO DAILY . 07/04/22 clozapine 200 mg tablet 100 mg PO QHS anxiety 07/04/22 fluoxetine 10 mg capsule (Prozac) 20 mg PO DAILY anxiety 07/04/22 ipratropium 0.5 mg-albuterol 3 mg (2.5 mg base)/3 mL nebulization soln 3 ml inhalation Q4H PRN PRN Wheezing 07/04/22 omeprazole 20 mg capsule,delayed release 20 mg PO DAILY gerd 07/04/22 lorazepam 0.5 mg tablet 0.5 mg PO DAILY anxiety 03/19/24 lorazepam 1 mg tablet 1 mg PO BID anxiety 03/19/24 clonazepam 0.5 mg tablet 0.5 mg PO TID 01/03/25 cyanocobalamin (vitamin B-12) 1,000 mcg capsule 1,000 mcg PO DAILY 01/03/25 fluoxetine 20 mg capsule 20 mg PO DAILY 01/03/25 trazodone 100 mg tablet 100 mg PO QHS PRN insomnia 01/03/25 amoxicillin 875 mg-potassium clavulanate 125 mg tablet 1 tab PO BID 3 days #6 tabs 01/07/25 bisacodyl 10 mg rectal suppository 10 mg [place] DAILY #0 ea 01/07/25 sennosides 8.6 mg-docusate sodium 50 mg tablet (Stimulant Laxative Plus) 2 tab PO BID #0 tabs 01/07/25 Hospital Course Summary of Care Provided Minutes Spent on Discharge: 32 Hospital Course: 74-year-old male with a history of hypertension, hypothyroidism, BPH, anxiety, GERD presented to [facility] ED 01/03/2025 due to chest pain and vomiting. Has history of dementia and had difficulty expressing himself but it was determined he had chest pain that developed in the left mid anterior aspect chest and retirement noted several episodes of emesis with unknown last p.o. intake. In the ED patient afebrile, heart rate 106, respiratory rate 17 with blood pressure 113/73, pulse ox 95% on room air. White blood cell count 28, hemoglobin 14.7, platelet count 252. BMP only notable for glucose of 212. Liver profile within normal limits. Chest x-ray with bibasilar atelectasis, cannot exclude presence of pneumonitis. Troponin within normal limits and lactic acid 2.7. UA not suggestive of UTI. CT chest/abdomen/pelvis obtained which showed multiple gallstones and bilateral renal cysts as well as a large amount of fecal material in the colon. Additionally a nonobstructive calculus in lower pole of the right kidney. Blood cultures obtained due to unclear etiology of elevated white blood cell count but concern for aspiration pneumonia and hospitalist contacted for admission. Patient admitted to [facility] on IV Zosyn. Patient evaluated by speech and aspiration precautions placed. Patient's respiratory status improved and white blood cell count began to downtrend. Patient had been complaining of continued shortness of breath with shallow breathing despite improvement in aeration and lab values but was found to still have significant constipation as well as urinary retention, breathing improved after patient had bowel movements with bowel regimen and suppository, despite that he still was noted to have urinary retention so Jasso catheter placed. Patient's blood counts remained stable, kidney function at baseline and UA, which was repeated, no evidence of infection. Patient was found to have an A1c of 6.3 which places him in the prediabetes range, this can be monitored on an outpatient basis and diet adjusted, could consider medication moving forward depending on glucoses. On day of discharge patient does report breathing feels better, no abdominal pain, intermittently cooperative and oftentimes will not want to answer questions however no new or acute complain (more content not included)... [facility] 03-22-2024 Note [facility] Medical Records Department [address] [place] [address] Discharge Summary 03/22/24 1339 MR#: [id number] Acct: [id number] Name: ALLAN LARA Rep #: [id number] : 1950 73 From: Darshan Quiroz MD PCP: Dr. Simone Messer MD Status:ADM IN [id number] Prov[facility] Date of Admission: 03/19/24 Primary Care Physician: Dr. Simone Messer MD Reason For Visit: PNEUMONIA Diagnosis Discharge Diagnosis (1) Sepsis: Status: Acute Code(s): A41.9 - Sepsis, unspecified organism (2) Pneumonia: Status: Acute Code(s): J18.9 - Pneumonia, unspecified organism Plan 1. Sepsis secondary to aspiration pneumonia with HAYLIE ???He does have small dysphagia likely contributing to aspiration ??? Will continue with Unasyn, he completes azithromycin today, blood cultures are for coag negative staph consistent with contamination ??? He did receive 2.5 L bolus and will continue with IV fluids ??? He did receive Rocephin and azithromycin in the ER ??? Renal functions returned to baseline 2. Essential HTN/HLD ??? Will hold his Norvasc ??? Continue with Lipitor if he is able to swallow pills after they can do a dysphagia screen ??? Will monitor make adjustments as necessary 3. Anxiety/depression/dementia ???He is on multiple medications for anxiety and depression ???Can resume his home meds 4. Hypothyroidism ??? Stable ??? Continue with Synthroid 5. GERD ??? Stable ??? Continue with PPI 6. BPH with obstruction ??? Stable ??? Continue with Flomax DVT: SCDs Medications at Discharge Home Medications amlodipine 10 mg tablet 10 mg PO QHS BP 07/30/17 levothyroxine 25 mcg tablet 50 mcg PO DAILY THYROID 07/30/17 tamsulosin 0.4 mg capsule 0.4 mg PO QHS PROSTATE 07/30/17 atorvastatin 10 mg tablet 10 mg PO QHS cholesterol 07/04/22 cholecalciferol (vitamin D3) 125 mcg (5,000 unit) tablet (Vitamin D3) 125 mcg PO DAILY . 07/04/22 clozapine 200 mg tablet 200 mg PO QHS anxiety 07/04/22 fluoxetine 10 mg capsule (Prozac) 20 mg PO DAILY anxiety 07/04/22 ipratropium 0.5 mg-albuterol 3 mg (2.5 mg base)/3 mL nebulization soln 3 ml inhalation Q4H PRN PRN Wheezing 07/04/22 omeprazole 20 mg capsule,delayed release 20 mg PO DAILY gerd 07/04/22 lorazepam 0.5 mg tablet 0.5 mg PO DAILY anxiety 03/19/24 lorazepam 1 mg tablet 1 mg PO BID anxiety 03/19/24 amoxicillin 875 mg-potassium clavulanate 125 mg tablet 1 tab PO BID #14 tabs 03/22/24 Hospital Course Operations None Procedures None Summary of Care Provided Minutes Spent on Discharge: 34 Hospital Course: Per HPI: ALLAN LARA, is a 73 M who presents from the retirement with shortness of breath and hypoxia. He has a baseline history of dementia and does not provide much other than yes and no answers. He is normally on 3 L nasal cannula at baseline but today he was found to be 70% on his baseline oxygen. Currently on 4 L nasal cannula. He was found to have sepsis due to pneumonia, he was recently seen on 03/09/2024 for a left lower lobe pneumonia and was placed on Levaquin for 7 days. Current chest x-ray demonstrates new areas of opacification in the right middle and lower lobes of the lung consistent with pneumonia. White count is 13 with an HAYLIE to 2.11 and a lactic acid initially of 6.5 improved to 4.3. Hospital Course: 1. Sepsis secondary right lower lobe and middle lobe pneumonia consistent with aspiration pneumonia???73-year-old male presents from the retirement with altered mental status and lethargy. Sepsis was due to pneumonia and he was started on Unasyn and azithromycin. Speech therapy was consulted and per recommendations into the chart. He is down to his baseline oxygen requirements around 3 to 4 L nasal cannula and will plan to continue Augmentin p.o. for another 7 days to complete 10 days of antibiotics. He had completed Levaquin prior to admission for left lower lobe pneumonia. Will plan to discharge today back to the retirement to continue with rehab as well as speech therapy. 2. Essential hypertension, hyperlipidemia, anxiety, depression, dementia, hypothyroidism, GERD, BPH with obstruction are all chronic medical conditions which complicate his care. His home medications were continued where appropriate Physical Exam Narrative General: Alert, oriented x 2, Cooperative, No apparent distress HEENT: Atraumatic, PERRLA, EOMI, Normocephalic Oral: Moist Mucosa Neck: Supple, No JVD Lungs: Diminished, Normal air movement, No rhonchi, No wheeze, right sided rales???improved Cardiovascular: Regular rate, Regular Rhythm, Normal S1, Normal S2, No murmurs Abdomen: Soft, Non Tender, Non-Distended, No Hepato-splenomegaly Extremities: No edema, Capillary Refill Less than 3 Seconds Skin: No rashes, No breakdown Musculoskeletal: No Tenderness to Palpation of Joints or Extremities Neuro (more content not included)... [facility] 07-06-2022 Discharge summary Note Date/Time July 06, 2022 2:12pm [facility] Medical Records Department [address] [place] [address] Discharge Summary 07/06/22 1411 MR#: [id number] Acct: [id number] Name: ALLAN LARA Rep #:[id number] : 1950 71 From: Peyton Crawford MD PCP: Dr. Simone Messer MD Status:ADM I N Location: [place] [address] Providers Date of Admission: 07/04/22 Date of Discharge: 07/06/22 Primary Care Physician: Dr. Simone Messer MD Consultations 07/04/22 05:34 Consult: Parts Counterman / Pulmonary Medicine Routine Consulting Provider: Donald Valdes Reason for Consult: Sepsis EMERGENT Consult: No Notified: Yes Date Notified: 07/04/22 Time Notified: 05:03 Method of Notification: Text Reason For Visit: SEPSIS 2NDARY TO GASTROENTERITIS Diagnosis Discharge Diagnosis (1) Gastroenteritis: Status: Acute Code(s): K52.9 - Noninfective gastroenteritis and colitis, unspecified Plan #Sepsis due to gastroenteritis * wbc remains elevated. * on IV metronidazole and ceftriaxone. * CT abdomen and pelvis:gallstones without acute cholecystitis and enteritis * IV zofran prn * continue gentle hydration with IVF * still having abdominal pain. * #Debility due to mechanical fall * PT.OT on board * fall precautions * received tetanus injection * #Abnormal urinalysis: urinalysis showed 1+ bacteria. Get urine culture. #HAYLIE: resolved. Cr is 1.02. #COVID 19 infection * asymptomatic. * on room air. * #HYpotension: resolved. Amlodipine on hold. #TYpe 2 diabetes mellitus; diet controlled. ISS. Accuchecks ACHS DVT prophylaxis: lovenox DIspositionL transfer out of ICU to [facility] surg Medications at Discharge Home Medications amlodipine 10 mg tablet 10 mg PO QHS BP 07/30/17 levothyroxine 25 mcg tablet 50 mcg PO DAILY THYROID 07/30/17 tamsulosin 0.4 mg capsule 0.4 mg PO QHS PROSTATE 07/30/17 atorvastatin 10 mg tablet 10 mg PO QHS 07/04/22 cholecalciferol (vitamin D3) 125 mcg (5,000 unit) tablet (Vitamin D3) 125 mcg PODAILY 07/04/22 clozapine 100 mg tablet 100 mg PO DAILY 07/04/22 clozapine 200 mg tablet 200 mg PO QHS 07/04/22 fluoxetine 10 mg capsule (Prozac) 10 mg PO DAILY 07/04/22 ipratropium 0.5 mg-albuterol 3 mg (2.5 mg base)/3 mL nebulization soln 3 ml inhalation Q4H PRN PRN Wheezing 07/04/22 omeprazole 20 mg capsule,delayed release 20 mg PO DAILY 07/04/22 ciprofloxacin HCl 500 mg tablet 500 mg PO BID #10 tabs 07/06/22 metronidazole 500 mg tablet 500 mg PO BID #10 tabs 07/06/22 Hospital Course Operations None Procedures None Summary of Care Provided Minutes Spent on Discharge: 45 Hospital Course: Patient is a 71-year-old male with a past medical history as outlined who was admitted to the ED from his retirement on 07/04/2022 with a complaint of mechanical fall with resultant laceration of his left eyelid. On admission he was also found to be having diarrhea which have been going on for about a week with assisted abdominal pain. He had also tested for positive for COVID the daybefore admission. On admission urinalysis showed 1+ bacteria and chest x-ray showed no acute cardiopulmonary process. CT of the abdomen showed cholelithiasis without obvious acute cholecystitis and possible infectious or inflammatory enteritis. His white cell count was also elevated to 24,000. He was admitted and managed for acute gastroenteritis with concerns for infectious enteritis. He was started on IV antibiotics and admitted to the ICU initially on account of hypotension and concerns for sepsis. This resolved with fluid hydration. Patient remained on room air throughout admission. His symptoms gradually improved. His abdominal pain improved and he was able to tolerate a diet. White cell count trended down to 19,000. Blood cultures and urine cultures were negative. He was discharged back to [facility] facility on 07/06/2022. He was discharged on a 5-day course of ciprofloxacin and metronidazole. He is to follow-up with his primary care doctor within 1 to 2 weeks. Patient seen and examined prior to discharge. He had no active complaints and had an uneventful night. Review of systems otherwise negative. Labs and vitalsreviewed. Home medication reviewed and reconciled. Physical Exam Const alert, oriented x3 and no apparent distress Constitutional Narrative: frail General Appearance: cooperative and comfortable HEENT normocephalic, head/scalp atraumatic, moist oral mucous membranes and oropharynxnormal HEENT Narrative: healing laceration over left eye Eyes PERRL and EOMs intact bilaterally Neck no lymphadenopathy, supple and no JVD Lymph Lymphatic: no lymphadenopathy noted and no lymphedema noted Resp Resp Narrative: mildly diminished breath sounds bibasally, no wheezes or crackles. Cardio regular rate, regular rhythm, S1 normal heart sound, S2 normal heart sound and no murmurs GI normal to inspection, nondistended, normoactive bowel sounds, soft to palpation and non-tender Extremity normal to inspection, normal capillary refill, no clubbing, cyanosis or edema and no calf tenderness Skin no rashes or lesions noted General Skin Exam: no breakdown Neuro oriented x3, CN's II-XII intact bilaterally, moves all extremities, no focal motor deficits, no sensory deficits noted and deep tendon reflexes 2+ bilaterally Sensorium / Orientation: awake and alert Motor Exam: strength 5/5 throughout Psych thought process normal, cooperative and affect normal Appearance: appropriate Weight / BMI Weight Weight: 160 lb 11.472 oz Body Mass Index (BMI) 23.8 ABG / Lab / Microbiology Data Result Diagrams: 07/06/22 08:21 07/06/22 08:21 Laboratory: Laboratory Results - last 24 hr 07/06/22 08:21: WBC 19.9 H, RBC 4.27 L, Hgb 12.9 L, Hct 39.3 L, MCV 92.0, MCH 30.2, MCHC 32.8, RDW Std Deviation 42.5, RDW Coeff of Kirk 12.8, Plt Count 220, MPV 10.6, Immature Gran % (Auto) 1.100 H, Neut % (Auto) 78.6 H, Lymph % (Auto) 12.3 L, [place] % (Auto) 6.5, Eos % (Auto) 1.1, Baso % (Auto) 0.4, Absolute Neuts (auto) 15.6 H, Absolute Lymphs (auto) 2.45, Nucleated RBC % 0 07/06/22 08:21: Sodium 140, Potassium 3.2 L, Chloride 109 H, Carbon Dioxide 25.0, Anion Gap 6, BUN 11, Creatinine 0.90, Estim Creat Clear Calc 73.10, Est GFR (MDRD) Af Amer 106, Est GFR (MDRD) Non-Af 88, BUN/Creatinine Ratio 12.2, Glucose 114 H, Calcium 8.4 L Microbiology: Microbiology 07/04/22 03:08 Urine Catheter - Catheter Urine Culture - Final Culture exhibits no growth. 07/04/22 03:00 Blood Culture (Wb) - Anticubital Right Blood Culture - Preliminary No growth in 48 hours. 07/04/22 02:40 Blood Culture (Wb) - Anticubital Left Blood Culture - Preliminary No growth in 48 hours. D/C Instructions Discharge Diet: Low fat / Low cholesterol Discharge Activity: Return to Normal Activity Weight Bearing Status: Weight bearing as tolerated Call your doctor if you observe: Fever of 101 or Higher, Shortness of breath, Dizziness, Swelling in the ankles and Chest pain Meaningful Use Info Meaningful Use Diagnoses (Choose all that apply): None applicable Discharge Plan Admission Admit Date/Time: 07/04/22 04:45 Primary Reason for Your Visit: gastroenteritis Attending Provider: Peyton Crawford Primary Care Provider: Simone Messer Consulting Providers: Sreekanth Verma ; Donald Valdes Instructions Patient Instructions: ED Diarrhea, Unknown Cause Discharge Orders/Prescriptions Prescriptions: New ciprofloxacin HCl 500 mg tablet 500 mg PO BID Qty: 10 0RF metronidazole 500 mg tablet 500 mg PO BID Qty: 10 0RF Continued levothyroxine 25 MCG tablet 50 mcg PO DAILY tamsulosin 0.4 MG capsule 0.4 mg PO QHS amlodipine 10 MG tablet 10 mg PO QHS ipratropium-albuterol 0.5 mg-3 mg(2.5 mg base)/3 mL solution for nebulization 3 ml inhalation Q4H PRN PRN (Reason: Wheezing) atorvastatin 10 mg tablet 10 mg PO QHS clozapine 100 mg tablet 100 mg PO DAILY fluoxetine [Prozac] 10 mg Capsule 10 mg PO DAILY omeprazole 20 mg Capsule,Delayed Release(Dr/Ec) 20 mg PO DAILY clozapine 200 mg tablet 200 mg PO QHS cholecalciferol (vitamin D3) [Vitamin D3] 125 mcg (5,000 unit) Tablet 125 mcg PO DAILY Referrals / Follow Up: Simone Messer MD [Primary Care Provider] - Within 2 Weeks Disposition Disposition (needs filled in before D/C Order can be placed): Home, Self Care Charges/Coding Visit Charges Inpatient E&M: 18933 Disch Hosp >30min 07/06/22 1518 <Electronically signed by Peyton Crawford MD> Cosigner Signature (if applicable): CC: Dr. Peyton Crawford MD; Dr. Simone Messer MD~ Signed [facility] Work Phone: 1(660) 874-604505-03-[address] Crawford [facility] July 06, 2022 2:11pm Note Date/Time July 06, 2022 2:11pm [facility] Medical Records Department [address] [place] [id number] Transfer to [facility] MR#: [id number] Acct: [id number] Name: ALLAN LARA Rep #:[id number] : 1950 71 From: Peyton Crawford MD PCP: Dr. Simone eMsser MD Status:ADM I N Certification of patient admission REQUIRED AT TIME OF ADMISSION. I CERTIFY THAT POST-HOSPITAL F SERVICES ARE REQUIRED TO BE GIVEN ON AN IN-PATIENT BASIS BECAUSE OF THE ABOVE NAMED PATIENT'S NEED FOR RESIDENTIAL CARE ON A CONTINUING BASIS FOR THE CONDITION(S) FOR WHICH HE/SHE WAS RECEIVING IN-PATIENT HOSPITAL SERVICES PRIOR TO HIS/HER TRANSFER TO THE [facility]. 07/06/22 1411<Electronically signed by Peyton Crawford MD> Diet Diet Order/Speech Therapy: 07/04/22 10:01 Diet: Consistent Carb - Calorie Controlled Food consistency:: Regular Liquid Consistency:: Regular/Thin Dietary Modifications:: No Added Salt Type of Dietary Supplement:: Glucerna Shake Is pt able to select menu?: No Diet Comments: 4 oz GS tid w/ meals How many daily calories?: 1800 calorie Routine Orders/Code Status Enema Type: Fleetz Enema Frequency: Daily PRN Suppository Type: Dulcolax 10mg O2 Frequency: PRN Keep PO Greater than or Equal to (%): 90 Wound(s) Left lateral eyebrow: Wound Type: Laceration Left Knee: Wound Type: Abrasion Therapies Weight Bearing: Weight bearing as tolerated Physical Therapy: Eval and Treat Occupational Therapy: Eval and Treat Problem/Diagnosis (1) Gastroenteritis: Status: Acute Code(s): K52.9 - Noninfective gastroenteritis and colitis, unspecified Plan #Sepsis due to gastroenteritis * wbc remains elevated. * on IV metronidazole and ceftriaxone. * CT abdomen and pelvis:gallstones without acute cholecystitis and enteritis * IV zofran prn * continue gentle hydration with IVF * still having abdominal pain. * #Debility due to mechanical fall * PT.OT on board * fall precautions * received tetanus injection * #Abnormal urinalysis: urinalysis showed 1+ bacteria. Get urine culture. #HAYLIE: resolved. Cr is 1.02. #COVID 19 infection * asymptomatic. * on room air. * #HYpotension: resolved. Amlodipine on hold. #TYpe 2 diabetes mellitus; diet controlled. ISS. Accuchecks ACHS DVT prophylaxis: lovenox DIspositionL transfer out of ICU to med surg Allergies/Procedures Done in Hospital Allergies No Known Allergies Allergy (Verified 07/28/19 19:39) Procedures: None Type of Care/Length of Stay Estimated LOS: Convalescent Care Less Than 30 days Type of Care Needed: Skilled Rehab Potential: Fair Prognosis: Fair Additional Orders/Day of Discharge Day of Discharge: 07/06/22 Dietary and Speech Recommendations Dietitian Recommendations/Changes: Will change diet to 1800 chip / No Added Salt Will provide 4 oz glucerna shake w/ meals for increased nutrition if consumed. Will continue to follow and monitor for changes in pt nutritional status Discharge Plan Admission Admit Date/Time: 07/04/22 04:45 Primary Reason for Your Visit: gastroenteritis Attending Provider: Peyton Crawford Primary Care Provider: Simone Messer Consulting Providers: Sreekanth Verma ; Donald Valdes Instructions Patient Instructions: ED Diarrhea, Unknown Cause Discharge Orders/Prescriptions Prescriptions: New ciprofloxacin HCl 500 mg tablet 500 mg PO BID Qty: 10 0RF metronidazole 500 mg tablet 500 mg PO BID Qty: 10 0RF Continued levothyroxine 25 MCG tablet 50 mcg PO DAILY tamsulosin 0.4 MG capsule 0.4 mg PO QHS amlodipine 10 MG tablet 10 mg PO QHS ipratropium-albuterol 0.5 mg-3 mg(2.5 mg base)/3 mL solution for nebulization 3 ml inhalation Q4H PRN PRN (Reason: Wheezing) atorvastatin 10 mg tablet 10 mg PO QHS clozapine 100 mg tablet 100 mg PO DAILY fluoxetine [Prozac] 10 mg Capsule 10 mg PO DAILY omeprazole 20 mg Capsule,Delayed Release(Dr/Ec) 20 mg PO DAILY clozapine 200 mg tablet 200 mg PO QHS cholecalciferol (vitamin D3) [Vitamin D3] 125 mcg (5,000 unit) Tablet 125 mcg PO DAILY Referrals / Follow Up: Simone Messer MD [Primary Care Provider] - Within 2 Weeks Disposition Disposition (needs filled in before D/C Order can be placed): Home, Self Care Charges/Coding Visit Charges Inpatient E&M: 66916 Disch Hosp >30min 07/06/22 1411 <Electronically signed by Peytno Crawford MD> Cosigner Signature (if applicable): CC: Dr. Donald Valdes MD; Dr. Sreekanth Verma MD; Dr. Simone Messer MD ~ [facility] Work Phone: 1(163) 551-658205-02-[address] Crawford [facility] July 05, 2022 3:43pm Note Date/Time July 05, 2022 12:22p [facility] Medical Records Department [address] [place] [address] Progress Note 07/05/22 1215 MR#: [id number] Acct: [id number] Name: ALLAN LARA Rep #:[id number] : 1950 71 From: Peyton Crawford MD PCP: Dr. Simone Messer MD Status:ADM I N Location: ICU ICU01-1 Subjective Subjective Patient seen and examined. He still complained of abdominal pain. He denied any nausea or vomiting and diarrhea had resolved. Review of systems was otherwise negative. He has remained hemodynamically stable. Objective Data Objective Data Vital Signs: Vital Signs Temp Pulse Resp BP Pulse Ox O2 Del Method 98.0 F 95 19 H 120/67 95 Room Air 07/05/22 12:00 07/05/22 12:00 07/05/22 12:00 07/05/22 12:00 07/05/22 12:00 07/05/22 12:00 Oxygen Delivery Method Room Air Weight: 160 lb 14.999 oz Body Mass Index (BMI) 23.8 Intake & Output: Intake and Output for Last 24 Hours 07/03/22 07/04/22 07/05/22 23:59 23:59 23:59 Intake Total 4238.33 / 4238.33 2580 / 2580 Output Total 0 / 320 795 / 795 Balance 4238.33 / 3918.33 1785 / 1785 Lab / Micro Data Result Diagrams: 07/05/22 03:50 07/05/22 03:50 Labs: Laboratory Results - last 24 hr 07/05/22 03:50: WBC 22.5 H, RBC 4.11 L, Hgb 12.4 L, Hct 38.1 L, MCV 92.7, MCH 30.2, MCHC 32.5, RDW Std Deviation 43.3, RDW Coeff of Kirk 12.8, Plt Count 248, MPV 10.8, Immature Gran % (Auto) 1.000 H, Neut % (Auto) 81.2 H, Lymph % (Auto) 8.8 L, [place] % (Auto) 8.0, Eos % (Auto) 0.7, Baso % (Auto) 0.3, Absolute Neuts (auto) 18.3 H, Absolute Lymphs (auto) 1.99, Nucleated RBC % 0, Diff Path Review May foll, Atypical Lymphocytes 1+ 07/05/22 03:50: Sodium 141, Potassium 3.7, Chloride 112 H, Carbon Dioxide 24.0, Anion Gap 5, BUN 22 H, Creatinine 1.02, Estim Creat Clear Calc 63.22, Est GFR (MDRD) Af Amer 92, Est GFR (MDRD) Non-Af 76, BUN/Creatinine Ratio 21.6 H, Glucose 141 H, Calcium 7.9 L Micro: Microbiology 07/04/22 03:08 Urine Catheter - Catheter Urine Culture - Preliminary Culture exhibits no growth. Rhythm Strip Rhythm Strip: Sinus Tach Rate: 122 Ectopy: None Physical Exam Const alert, oriented x3 and no apparent distress Constitutional Narrative: frail General Appearance: cooperative HEENT normocephalic, head/scalp atraumatic, moist oral mucous membranes and oropharynxnormal Eyes PERRL and EOMs intact bilaterally Neck no lymphadenopathy, supple and no JVD Lymph Lymphatic: no lymphadenopathy noted and no lymphedema noted Resp Resp Narrative: mildly diminished breath sounds bibasally, no wheezes or crackles. Cardio regular rate, regular rhythm, S1 normal heart sound, S2 normal heart sound and no murmurs GI normal to inspection, nondistended, normoactive bowel sounds, soft to palpation and non-tender Extremity normal capillary refill, no clubbing, cyanosis or edema and no calf tenderness Skin General Skin Exam: no breakdown Neuro CN's II-XII intact bilaterally, no focal motor deficits, no sensory deficits noted and deep tendon reflexes 2+ bilaterally Motor Exam: strength 5/5 throughout and general weakness Psych thought process normal, cooperative and affect normal Appearance: appropriate Assessment & Plan Assessment/Plan (1) Gastroenteritis: PLAN: Plan #Sepsis due to gastroenteritis * wbc remains elevated. * on IV metronidazole and ceftriaxone. * CT abdomen and pelvis:gallstones without acute cholecystitis and enteritis * IV zofran prn * continue gentle hydration with IVF * still having abdominal pain. * #Debility due to mechanical fall * PT.OT on board * fall precautions * received tetanus injection * #Abnormal urinalysis: urinalysis showed 1+ bacteria. Get urine culture. #HAYLIE: resolved. Cr is 1.02. #COVID 19 infection * asymptomatic. * on room air. * #HYpotension: resolved. Amlodipine on hold. #TYpe 2 diabetes mellitus; diet controlled. ISS. Accuchecks ACHS DVT prophylaxis: lovenox DIspositionL transfer out of ICU to med surg Charges/Coding Visit Charges Inpatient E&M: 80622 Subs Hosp L2 07/05/22 5397 <Electronically signed by Peyton Crawford MD> Peyton Crawford MD Cosigner Signature (if applicable): CC: ~ Signed [facility] Work Phone: 1(347) 331-383005-02-[address] Levine [facility] July 05, 2022 7:56am Note Date/Time July 05, 2022 6:53am [facility] Medical Records Department [address] [place] [address] Progress Note - Parts Counterman 07/05/22 0650 MR#: [id number] Acct: [id number] Name: ALLAN LARA Rep #:[id number] : 1950 71 From: Jerald Levine DO PCP: Dr. Simone Messer MD Status:ADM I N Location: ICU ICU01-1 Assessment & Plan Assessment/Plan (1) Gastroenteritis: PLAN: Plan RECOMMENDATIONS: 1. Continue gentle IV fluid hydration. 2. Continue empiric antimicrobials. 3. Encourage incentive spirometer use while in bed. 4. Continue DVT prophylaxis. 5. We will sign off from a pulmonary/critical care perspective. Please call with any additional questions. IMPRESSIONS: 1. Suspected gastroenteritis with intravascular volume depletion Although the patient initially presented over concerns for sepsis with fall, subsequent work-up revealed lactic acidemia, and acute kidney injury in the setting of hypotension, which I suspect is related to intravascular volume depletion in the setting of gastroenteritis. Acute infectious etiologies are currently being ruled out. Antimicrobials will be continued in the interim. Continue gentle IV fluid hydration. The patient remains hemodynamically stable on room air. 2. Acute kidney injury Improved. Most likely prerenal in etiology in the setting #1. Creatinine has normalized with volume expansion. Continue gentle IV fluid hydration as ordered. 3. Uncomplicated COVID-19 infection The patient's chest x-ray was unremarkable and he is currently maintaining appropriate oxygen saturations on room air. I do not see any additional indication for intervention at this time. 4. History of schizoaffective disorder/hypothyroidism/GERD/hypertension/hyperlipidemia Complicates care, management, recovery and prognosis. Continue home medicationsas indicated. This note was generated with ColorChipation software. It may contain incorrectwords, spelling, and punctuation that were not noted in checking the note beforesigning. Subjective Subjective The patient was seen and examined at the bedside this morning. Events from the last 24 hours have been reviewed. The patient is currently afebrile, hemodynamically stable and maintaining appropriate oxygen saturations on room air. The patient is documented to be overall net +4.9 L for the hospitalization. White count remains elevated at 22,000. Creatinine has normalized. Objective Data Objective Data The patient's most recent lab work, culture data and imaging studies have all been personally reviewed. Blood and urine cultures are pending. Vital Signs: Vital Signs Temp Pulse Resp BP Pulse Ox O2 Del Method 97.8 F 100 16 112/77 93 Room Air 07/05/22 04:00 07/05/22 06:00 07/05/22 06:00 07/05/22 06:00 07/05/22 06:00 07/05/22 06:00 Oxygen Delivery Method Room Air Weight: 160 lb 14.999 oz Body Mass Index (BMI) 23.8 Intake & Output: Intake and Output for Last 24 Hours 07/03/22 07/04/22 07/05/22 23:59 23:59 23:59 Intake Total 4238.33 / 4238.33 1000 / 1000 Output Total 0 / 320 320 / 320 Balance 4238.33 / 3918.33 680 / 680 Lab / Micro Data Attestation: I reviewed the patient's lab results. Result Diagrams: 07/05/22 03:50 07/05/22 03:50 Labs: Laboratory Results - last 24 hr 07/04/22 02:40: Hemoglobin A1c 5.8 H 07/04/22 07:55: Vitamin D 25-Hydroxy 85.4 07/04/22 07:55: Lactic Acid 3.1 H* 07/05/22 03:50: WBC 22.5 H, RBC 4.11 L, Hgb 12.4 L, Hct 38.1 L, MCV 92.7, MCH 30.2, MCHC 32.5, RDW Std Deviation 43.3, RDW Coeff of Kirk 12.8, Plt Count 248, MPV 10.8, Immature Gran % (Auto) 1.000 H, Neut % (Auto) 81.2 H, Lymph % (Auto) 8.8 L, [place] % (Auto) 8.0, Eos % (Auto) 0.7, Baso % (Auto) 0.3, Absolute Neuts (auto) 18.3 H, Absolute Lymphs (auto) 1.99, Nucleated RBC % 0, Diff Path Review May foll, Atypical Lymphocytes 1+ 07/05/22 03:50: Sodium 141, Potassium 3.7, Chloride 112 H, Carbon Dioxide 24.0, Anion Gap 5, BUN 22 H, Creatinine 1.02, Estim Creat Clear Calc 63.22, Est GFR (MDRD) Af Amer 92, Est GFR (MDRD) Non-Af 76, BUN/Creatinine Ratio 21.6 H, Glucose 141 H, Calcium 7.9 L Rhythm Strip Rhythm Strip: Sinus Tach Rate: 122 Ectopy: None Physical Exam Const alert and no apparent distress General Appearance: cooperative HEENT normocephalic and head/scalp atraumatic HEENT Narrative: Laceration over left eye Eyes PERRL, EOMs intact bilaterally and conjunctivae normal Neck supple General: trachea midline Chest inspection of chest normal Resp normal respiratory effort Auscultation: Negative for rales, rhonchi or wheezes Cardio regular rate, regular rhythm, S1 normal heart sound and S2 normal heart sound GI normal to inspection, nondistended, normoactive bowel sounds Extremity no clubbing, cyanosis or edema Skin no rashes or lesions noted Neuro CN's II-XII intact bilaterally, moves all extremities and no focal motor deficits Psych Mood & Affect: flat affect Charges/Coding Visit Charges Inpatient E&M: 97729 Subs Hosp L2 07/05/22 0756 <Electronically signed by Jerald Levine DO> Cosigner Signature (if applicable): CC: ~ Signed [facility] Work Phone: 1(603) 219-899705-02-[address] Crawford [facility] July 05, 2022 7:22am Note Date/Time July 04, 2022 10:27a m [facility] Medical Records Department [address] [place] [address] Progress Note 07/04/22 1024 MR#: [id number] Acct: [id number] Name: ALLAN LARA Rep #:[id number] : 1950 71 From: Peyton Crawford MD PCP: Dr. Simone Messer MD Status:ADM I N Location: ICU ICU01-1 Subjective Subjective Patient seen and examined. He complains of abdominal pain and nausea. He says hehad some episodes of diarrhea overnight. Review of systems otherwise negative. He is a bit tachypneic and tachcyardic today. Objective Data Objective Data Vital Signs: Vital Signs Temp Pulse Resp BP Pulse Ox O2 Del Method 97.6 F L 107 H 24 H 100/65 92 Room Air 07/04/22 08:00 07/04/22 08:30 07/04/22 08:30 07/04/22 08:30 07/04/22 08:30 07/04/22 08:30 Oxygen Delivery Method Room Air Weight: 152 lb 12.485 oz Body Mass Index (BMI) 22.5 Intake & Output: Intake and Output for Last 24 Hours 07/02/22 07/03/22 07/04/22 23:59 23:59 23:59 Intake Total 2250 / 2250 Balance 2250 / 2250 Lab / Micro Data Result Diagrams: 07/04/22 02:40 07/04/22 02:40 Labs: Laboratory Results - last 24 hr 07/04/22 02:40: WBC 24.4 H, RBC 5.39, Hgb 15.9, Hct 49.5, MCV 91.8, MCH 29.5, MCHC 32.1, RDW Std Deviation 42.8, RDW Coeff of Kirk 12.8, Plt Count 356, MPV 10.7, Immature Gran % (Auto) 1.300 H, Neut % (Auto) 91.2 H, Lymph % (Auto) 3.6 L, [place] % (Auto) 3.7, Eos % (Auto) 0.0, Baso % (Auto) 0.2, Absolute Neuts (auto) 22.2 H, Absolute Lymphs (auto) 0.87, Nucleated RBC % 0 07/04/22 02:40: PT 12.8, INR 1.0, APTT 23.7 L 07/04/22 02:40: Sodium 140, Potassium 4.6, Chloride 104, Carbon Dioxide 27.0, Anion Gap 9, BUN 23 H, Creatinine 1.91 H, Estim Creat Clear Calc 34.45, Est GFR (MDRD) Af Amer 45 L, Est GFR (MDRD) Non-Af 37 L, BUN/Creatinine Ratio 12.0, Glucose 212 H, Calcium 9.7, Total Bilirubin 0.60, AST 13 L, ALT 20, Alkaline Phosphatase 75, Troponin I High Sens 6, Total Protein 7.5, Albumin 3.6, Globulin3.9, Albumin/Globulin Ratio 0.9 07/04/22 02:40: Lactic Acid 2.9 H* 07/04/22 02:40: Lipase 37 07/04/22 02:40: Hemoglobin A1c 5.8 H 07/04/22 03:08: Urine Color Yellow, Urine Clarity Clear, Urine pH 5.0, Ur Specific [place] 1.015, Urine Protein 15 H, Urine Glucose (UA) Normal, Urine Ketones Negative, Urine Occult Blood Negative, Urine Nitrite Negative, Urine Bilirubin Negative, Urine Urobilinogen 1 H, Ur Leukocyte Esterase Negative, Urine RBC 0 SEEN, Urine WBC 0- 5 SEEN, Ur Squamous Epith Cells 0 SEEN, Urine Bacteria 1+, Hyaline Casts 0-5 SEEN, Urine Mucus 0 SEEN 07/04/22 07:55: Vitamin D 25-Hydroxy 85.4 07/04/22 07:55: Lactic Acid 3.1 H* Radiography Diagnostic Testing: Radiology Impression Chest X-Ray 07/04/22 02:46 IMPRESSION: No radiographic evidence of acute cardiopulmonary disease. Electronically Signed: Luis Carlos Epperson MD at 3:32 EDT , Abdomen/Pelvis CT 07/04/22 05:16 IMPRESSION: 1. Cholelithiasis without obvious acute cholecystitis. 2. Possible infectious or inflammatory enteritis. Electronically Signed: Imelda Bermudez MD at 6:28 EDT , Rhythm Strip Rhythm Strip: Sinus Tach Rate: 122 Ectopy: None Physical Exam Const alert, oriented x3 and no apparent distress Constitutional Narrative: frail General Appearance: cooperative HEENT normocephalic, head/scalp atraumatic, moist oral mucous membranes and oropharynxnormal Eyes PERRL and EOMs intact bilaterally Neck no lymphadenopathy, supple and no JVD Lymph Lymphatic: no lymphadenopathy noted and no lymphedema noted Resp Resp Narrative: mildly diminished breath sounds bibasally, no wheezes or crackles. Mildly tachypneic Cardio regular rhythm, S1 normal heart sound, S2 normal heart sound and no murmurs GI normal to inspection, nondistended, normoactive bowel sounds, soft to palpation and non-tender Extremity normal capillary refill, no clubbing, cyanosis or edema and no calf tenderness Skin General Skin Exam: no breakdown Neuro CN's II-XII intact bilaterally, no focal motor deficits, no sensory deficits noted and deep tendon reflexes 2+ bilaterally Motor Exam: strength 5/5 throughout and general weakness Psych thought process normal, cooperative and affect normal Appearance: appropriate Assessment & Plan Assessment/Plan (1) Gastroenteritis: PLAN: Plan #Sepsis due to gastroenteritis * wbc elevated this morning * HR elevated * lactic acid was also elevated. * continue gentle hydration with IVF * continue IV flagyl and cftriaxone. * CT abdomen and pelvis:gallstones without acute cholecystitis and enteritis * IV zofran prn * #Debility due to mechanical fall * PT.OT on board * fall precautions * received tetanus injection * #Abnormal urinalysis: urinalysis showed 1+ bacteria. Get urine culture. #HAYLIE: Cr is 1.91. Hydrate gently with IVF and trend Cr. Baseline Cr is <1 #COVID 19 infection * asymptomatic. Was a bit tachypneic this morning. * on room air. * #HYpotension: resolved. Amlodipine on hold. #TYpe 2 diabetes mellitus; diet controlled. ISS. Accuchecks ACHS DVT prophylaxis: lovenox # Charges/Coding Visit Charges Inpatient E&M: 30045 Subs Hosp L2 07/05/22721 <Electronically signed by Peyton Crawford MD> Peyton Crawford MD Cosigner Signature (if applicable): CC: ~ Signed [facility] Work Phone: 1(121) 791-583305-02-[address] Levine [facility] July 05, 2022 6:50am Note Date/Time July 04, 2022 7:17am [facility] Medical Records Department [address] [place] [address] Consultation - Parts Counterman 07/04/22 0708 MR#: [id number] Acct: [id number] Name: ALLAN LARA Rep #:[id number] : [id number] From: Jerald Levine DO PCP: Dr. Simone Messer MD Status:ADM I N Location: ICU ICU01-1 Assessment & Plan Assessment/Plan (1) Gastroenteritis: PLAN: Plan RECOMMENDATIONS: 1. Continue gentle IV fluid hydration. 2. Continue empiric antimicrobials. 3. Encourage incentive spirometer use while in bed. 4. Continue DVT prophylaxis. 5. If the patient remains hemodynamically stable, he can be transferred out of the medical intensive care unit. IMPRESSIONS: 1. Suspected gastroenteritis with intravascular volume depletion Although the patient initially presented over concerns for sepsis with fall, subsequent work-up revealed lactic acidemia, and acute kidney injury in the setting of hypotension, which I suspect is related to intravascular volume depletion in the setting of gastroenteritis. Acute infectious etiologies are currently being ruled out. Antimicrobials will be continued in the interim. Continue gentle IV fluid hydration. The patient remains hemodynamically stable. 2. Acute kidney injury Most likely prerenal in etiology in the setting #1. Anticipate improvement withcreatinine with volume expansion. Continue gentle IV fluid hydration as ordered. 3. Uncomplicated COVID-19 infection The patient's chest x-ray was unremarkable and he is currently maintaining appropriate oxygen saturations on room air. I do not see any additional indication for intervention at this time. 4. History of schizoaffective disorder/hypothyroidism/GERD/hypertension/hyperlipidemia Complicates care, management, recovery and prognosis. Hold home antihypertensives for now. This note was generated with [employer] dictation software. It may contain incorrectwords, spelling, and punctuation that were not noted in checking the note beforesigning. HPI Consult Data Date of Consult: 07/05/22 HPI Narrative Reason for Consultation: "Sepsis" HPI Narrative: The patient is a 71-year-old male, with a history as outlined below, who presented to the emergency department on the morning of July 04 after experiencinga fall. The patient reported that he had been experiencing diarrhea for approximately the last week. He also reported some associated nausea. The patient has a medical history significant for schizoaffective disorder, hypothyroidism and hypertension. He currently resides at a retirement facility. He was also recently diagnosed with COVID-19. On presentation to the emergency department, the patient was noted to be afebrile with borderline hemodynamics. He was also noted to be tachycardic and tachypneic. The patient was maintaining appropriate oxygen saturations on room air. Initial laboratory evaluation revealed an elevated white blood cell count to 24,000. Chemistry profile was notable for a creatinine of 1.9. Lactate was elevated at 2.9. Urine analysis was unrevealing. Chest x-ray demonstrated no acute cardiopulmonary process. CT abdomen/pelvis demonstrated possible infectious or inflammatory enteritis. The patient received supplemental IV fluid hydration was started on antimicrobials. He was subsequently admitted to the medical intensive care unit for further management. [facility] Medical History (Updated 07/04/22 @ 05:[address] 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 Hypertension Hypothyroidism Neoplasm of uncertain behavior of right kidney Unspecified dementia, unspecified severity, without behavioral disturbance, psychotic disturbance, mood disturbance, and anxiety Home Medications amlodipine 10 mg tablet 10 mg PO QHS BP 07/30/17 [History Last Taken 07/11/19] levothyroxine 25 mcg tablet 50 mcg PO DAILY THYROID 07/30/17 [History Last Taken 07/11/19] tamsulosin 0.4 mg capsule 0.4 mg PO QHS PROSTATE 07/30/17 [History Last Taken 07/11/19] atorvastatin 10 mg tablet 10 mg PO QHS 07/04/22 [History Last Taken Unknown] cholecalciferol (vitamin D3) 125 mcg (5,000 unit) tablet (Vitamin D3) 125 mcg PODAILY 07/04/22 [History Last Taken Unknown] clozapine 100 mg tablet 100 mg PO DAILY 07/04/22 [History Last Taken Unknown] clozapine 200 mg tablet 200 mg PO QHS 07/04/22 [History Last Taken Unknown] fluoxetine 10 mg capsule (Prozac) 10 mg PO DAILY 07/04/22 [History Last Taken Unknown] ipratropium 0.5 mg-albuterol 3 mg (2.5 mg base)/3 mL nebulization soln 3 ml inhalation Q4H PRN PRN Wheezing 07/04/22 [History Last Taken Unknown] omeprazole 20 mg capsule,delayed release 20 mg PO DAILY 07/04/22 [History Last Taken Unknown] Allergy/AdvReac Type Severity Reaction Status Date / Time No Known Allergies Allergy Verified 07/28/19 19:39 Family History unable to obtain Surgical History unable to obtain Social History Smoking Status: Never smoker ROS ROS Narrative 10 systems were reviewed with pertinent positives as noted in the HPI above. Physical Exam Const alert and no apparent distress General Appearance: cooperative HEENT normocephalic and head/scalp atraumatic HEENT Narrative: Laceration over left eye Eyes PERRL, EOMs intact bilaterally and conjunctivae normal Neck supple General: trachea midline Chest inspection of chest normal Resp normal respiratory effort Auscultation: Negative for rales, rhonchi or wheezes Cardio S1 normal heart sound and S2 normal heart sound Rate: tachycardic GI normal to inspection, nondistended, normoactive bowel sounds Extremity no clubbing, cyanosis or edema Skin no rashes or lesions noted Neuro CN's II-XII intact bilaterally, moves all extremities and no focal motor deficits Psych Mood & Affect: flat affect Lab / Micro Data Result Diagrams: 07/05/22 03:50 07/05/22 03:50 Labs: Laboratory Results - last 24 hr 07/04/22 02:40: WBC 24.4 H, RBC 5.39, Hgb 15.9, Hct 49.5, MCV 91.8, MCH 29.5, MCHC 32.1, RDW Std Deviation 42.8, RDW Coeff of Kirk 12.8, Plt Count 356, MPV 10.7, Immature Gran % (Auto) 1.300 H, Neut % (Auto) 91.2 H, Lymph % (Auto) 3.6 L, [place] % (Auto) 3.7, Eos % (Auto) 0.0, Baso % (Auto) 0.2, Absolute Neuts (auto) 22.2 H, Absolute Lymphs (auto) 0.87, Nucleated RBC % 0 07/04/22 02:40: PT 12.8, INR 1.0, APTT 23.7 L 07/04/22 02:40: Sodium 140, Potassium 4.6, Chloride 104, Carbon Dioxide 27.0, Anion Gap 9, BUN 23 H, Creatinine 1.91 H, Estim Creat Clear Calc 34.45, Est GFR (MDRD) Af Amer 45 L, Est GFR (MDRD) Non-Af 37 L, BUN/Creatinine Ratio 12.0, Glucose 212 H, Calcium 9.7, Total Bilirubin 0.60, AST 13 L, ALT 20, Alkaline Phosphatase 75, Troponin I High Sens 6, Total Protein 7.5, Albumin 3.6, Globulin3.9, Albumin/Globulin Ratio 0.9 07/04/22 02:40: Lactic Acid 2.9 H* 07/04/22 02:40: Lipase 37 07/04/22 03:08: Urine Color Yellow, Urine Clarity Clear, Urine pH 5.0, Ur Specific [place] 1.015, Urine Protein 15 H, Urine Glucose (UA) Normal, Urine Ketones Negative, Urine Occult Blood Negative, Urine Nitrite Negative, Urine Bilirubin Negative, Urine Urobilinogen 1 H, Ur Leukocyte Esterase Negative, Urine RBC 0 SEEN, Urine WBC 0- 5 SEEN, Ur Squamous Epith Cells 0 SEEN, Urine Bacteria 1+, Hyaline Casts 0-5 SEEN, Urine Mucus 0 SEEN Rhythm Strip Rhythm Strip: Sinus Tach Rate: 122 Ectopy: None Radiology Impression Chest X-Ray 07/04/22 02:46 IMPRESSION: No radiographic evidence of acute cardiopulmonary disease. Electronically Signed: Luis Carlos Epperson MD at 3:32 EDT , Abdomen/Pelvis CT 07/04/22 05:16 IMPRESSION: 1. Cholelithiasis without obvious acute cholecystitis. 2. Possible infectious or inflammatory enteritis. Electronically Signed: Imelda Bermudez MD at 6:28 EDT , Charges/Coding Visit Charges Inpatient E&M: 85562 Init Hosp L3 07/05/22 0650 <Electronically signed by Jerald Levine DO> Cosigner Signature (if applicable): CC: Dr. Donald Valdes MD; Dr. Sreekanth Verma MD; Dr. Simone Messer MD~ Signed [facility] Work Phone: 1(131) 226-815305-01-[address] Shaikh [facility] July 04, 2022 8:50am Note Date/Time July 04, 2022 3:00am [facility] Medical Records Department [address] [place] [address] Emergency Department Summary 07/04/22 MR#: [id number] Acct: [id number] Name: ALLAN LARA Rep #:[id number] : [id number] 71 From: Mati Shaikh MD PCP: Dr. Simone Messer MD Status:ADM I N Location: ICU ICU01-1 HPI HPI - Fall History of Present Illness Chief Complaint: Fall Detail of Chief Complaint: Left eyebrow laceration. Informant: patient and EMS Occured/Mechanism Occurred: Today and Hours Mechanism/Context: Yes same level fall Usually ambulates: Without assistance Pain/Injury Location: Left eyebrow laceration. Pain Location: head Current Severity: Mild Maximum Severity: Mild Associated Symptoms Associated Symptoms: Negative for Parasthesias, Weakness, Loss of function, Inability to ambulate, Loss of consciousness or Amnesia Narrative Narrative: 71-year-old male presents from an local extended care facility. Recently has had COVID. Presents tonight after he fell in the retirement causing a laceration on his left eyebrow. However he also presents hypotensive. Reportedly recently had COVID. He denies any vomiting or diarrhea. There is nopresent with him. Tetanus Immunization: Unknown Prior similar symptoms: No Recent Illness/Hospitalization: No PFSH PFSH Medical History Benign prostatic hyperplasia without lower urinary tract symptoms Delusional disorders Depression Diabetes Diabetic myelopathy due to secondary diabetes mellitus Drug induced subacute dyskinesia Hypothyroidism Neoplasm of uncertain behavior of right kidney Unspecified dementia, unspecified severity, without behavioral disturbance, psychotic disturbance, mood disturbance, and anxiety Home Medications amlodipine 10 mg tablet 10 mg PO QHS BP 07/30/17 [History Last Taken 07/11/19] levothyroxine 25 mcg tablet 50 mcg PO DAILY THYROID 07/30/17 [History Last Taken 07/11/19] tamsulosin 0.4 mg capsule 0.4 mg PO QHS PROSTATE 07/30/17 [History Last Taken 07/11/19] atorvastatin 10 mg tablet 10 mg PO QHS 07/04/22 [History Last Taken Unknown] cholecalciferol (vitamin D3) 125 mcg (5,000 unit) tablet (Vitamin D3) 125 mcg PODAILY 07/04/22 [History Last Taken Unknown] clozapine 100 mg tablet 100 mg PO DAILY 07/04/22 [History Last Taken Unknown] clozapine 200 mg tablet 200 mg PO QHS 07/04/22 [History Last Taken Unknown] fluoxetine 10 mg capsule (Prozac) 10 mg PO DAILY 07/04/22 [History Last Taken Unknown] ipratropium 0.5 mg-albuterol 3 mg (2.5 mg base)/3 mL nebulization soln 3 ml inhalation Q4H PRN PRN Wheezing 07/04/22 [History Last Taken Unknown] omeprazole 20 mg capsule,delayed release 20 mg PO DAILY 07/04/22 [History Last Taken Unknown] Allergy/AdvReac Type Severity Reaction Status Date / Time No Known Allergies Allergy Verified 07/28/19 19:39 Social History Smoking Status: Never smoker ROS ROS ED ROS Narrative Denies recent illness. Limited informant due to dementia. Review of Systems ROS Unobtainable: due to mental status Constitutional Constitutional ED: Denies fever(s) Eyes Eyes: Denies blurry vision ENT ENT ED: Denies ear pain Cardiovascular Cardiovascular: Denies chest pain Respiratory/Chest Respiratory/Chest: Denies cough or dyspnea Gastrointestinal Gastrointestinal: Denies abdominal pain, constipation, diarrhea, melena, nausea or vomiting Genitourinary Genitourinary ED: Denies dysuria Musculoskeletal Musculoskeletal: Denies arthralgias Integumentary Denies abscess Neurologic Neurologic: Denies headache(s) Psychiatric Psychiatric: Denies anxiety Endocrine Endocrinology: Denies polydipsia Hematologic/Lymphatic Hematologic/Lymphatic: Denies easy bleeding Allergic/Immunologic Allergic/Immunologic ED: Denies mouth swelling or tongue swelling EXAM Physical Exam Narrative Exam Narrative: 71-year-old male lying in bed. Blood pressure is 88/59. Pulse ox 93% on room air. He is afebrile. Heart rate 119. H EENT exam is laceration left eyebrow small amount of bleeding. No significant swelling. Pupils round reactive light. Scalp nontender no hematoma lacerations. C-spine and trachea nontender. Lungs are clear. Heart tachycardic rate about 115 no murmur. Chest wall and ribs nontender. Abdomen soft, nontender, nondistended, normal bowel sounds, no peritoneal signs. No signs of abdominal wall trauma. Pelvic girdle intact. Moving all 4 extremities. Normal hemstitcher strength. Normal dorsi plantarflexion. Normal range of motion is lower and upper extremities. Nontender. No deformity. Back nontender. Neurologically he is awake. He is answering questions following commands. He knows he is in the hospital. Const Vital Signs: 07/04/22 02:33 07/04/22 02:36 07/04/22 02:58 Temperature 98.9 F Temperature Source Temporal Pulse Rate 119 H Respiratory Rate 20 H Respiratory Effort Normal Respiratory Depth Normal Respiratory Pattern Normal Blood Pressure 88/59 L Blood Pressure Mean 68 Pulse Ox 93 93 Oxygen Delivery Method Room Air Room Air Room Air 07/04/22 02:53 07/04/22 05:02 Temperature 97.8 F 98.1 F Temperature Source Temporal Oral Pulse Rate 122 H 111 H Respiratory Rate 20 H 16 Respiratory Effort Respiratory Depth Respiratory Pattern Blood Pressure 91/56 L 138/71 H Blood Pressure Mean 67 93 Pulse Ox 93 98 Oxygen Delivery Method Room Air Room Air Positive well nourished and well developed; Negative for obese, cachectic, contractures or unkempt General Appearance ED: well developed and NAD; Negative for unkempt, cachectic or contractures Nutritional Appearance: Negative for cachectic or obese HEENT Reports normocephalic HEENT Narrative: Left eyebrow laceration trauma and tenderness; Negative for atraumatic or hematoma Eyes PERRL and EOMs intact bilaterally General Eye ED: Negative for pale conjunctiva or scleral icterus Neck full ROM, no lymphadenopathy and supple General: Negative for tenderness Chest Wall inspection of chest normal and palpation of chest normal Chest: Negative for other Resp normal respiratory effort, no retractions and clear to auscultation bilaterally Effort and Inspection: Negative for pain with movement Auscultation: Negative for rales, rhonchi or wheezes Cardio regular rhythm, S1 normal heart sound, S2 normal heart sound and no murmurs; Negative for regular rate Rate: tachycardic Rhythm: Negative for abnormal rhythm Bruits: Negative for other GI non-tender, non-distended and no masses Inspection: Negative for abdominal distention Auscultation: normoactive bowel sounds Palpation: soft; Negative for guarding or rebound tenderness present Back/Spine no CVA tenderness General Back: Negative for CVA tenderness Cervical Spine: Negative for cervical spine tenderness Thoracic Spine / Upper Back: Negative for pain with ROM Lumbar Spine / Lower Back: Negative for lumbar spinal tenderness Neuro No oriented x3, moves all extremities and no focal motor deficits Loyd Coma Scale: document GCS findings Spontaneous Obeys Commands Confused 14 Sensorium / Orientation: alert, oriented to person, oriented to place and confused; Negative for oriented to time, orientation impaired, lethargic or stuporous Motor Exam: strength 5/5 throughout Psych mental status grossly normal and thought process normal Appearance: Negative for unkempt Attitude: No agitated Mood & Affect: Negative for depressed, anxious or tearful Skin General Skin Exam: Negative for other Lesions: no lesions Rashes: no rashes Trauma: laceration linear; Negative for abrasion MDM MDM MDM Narrative Medical decision making narrative: 71-year-old demented gentleman from a retirement and presents with a fall witha left eyebrow laceration which will need to be repaired. Tetanus will be updated. However he is also hypotensive and tachycardic. Undergo a septic protocol work- up. Will be treated with a liter normal saline. Patient had a large amount of diarrhea was all watery in the emergency department. Nurses cleaned him up. His pressure is improving with a liter normal saline his current blood pressure is 115 systolic. Given his elevated white count and acute kidney injury he will be admitted for further evaluation. I will speak to the hospitalist. Patient be started on IV antibiotics Rocephin and Flagyl. We will get a second liter normal saline. Will be admitted to the ICU. While in the emergency department patient had diarrhea and vomiting. The vomiting looks like brown debris possibly gastric contents versus even stool. He developed diffuse abdominal discomfort so a CAT scan is also being obtained of his abdomen. History & Record Review Discussion w/independent historian: EMS personnel and Patient Additional record(s) reviewed:: Prior inpatient record, Prior outpatient record,Prior ED visit, Prior labs and No prior records Lab Data Attestation: I reviewed the patient's lab results. Lab results narrative: CBC shows a white count of 24,000. H&H of 15 and 49. Platelets 356. PT/INR and PTT unremarkable at 12, 1 and 23. Electrolytes show a gap of 9. BUN 23 creatinine 1.91. Liver enzymes are unremarkable. Lactic acid elevated 2.9. Urinalysis is negative. Chest x-ray is unremarkable. Labs: Laboratory Results - last 24 hr 07/04/22 07/04/22 07/04/22 02:40 02:40 02:40 WBC 24.4 H RBC 5.39 Hgb 15.9 Hct 49.5 MCV 91.8 MCH 29.5 MCHC 32.1 RDW Std Deviation 42.8 RDW Coeff of Kirk 12.8 Plt Count 356 MPV 10.7 Immature Gran % (Auto) 1.300 H Neut % (Auto) 91.2 H Lymph % (Auto) 3.6 L [place] % (Auto) 3.7 Eos % (Auto) 0.0 Baso % (Auto) 0.2 Absolute Neuts (auto) 22.2 H Absolute Lymphs (auto) 0.87 Nucleated RBC % 0 PT 12.8 INR 1.0 APTT 23.7 L Sodium 140 Potassium 4.6 Chloride 104 Carbon Dioxide 27.0 Anion Gap 9 BUN 23 H Creatinine 1.91 H Estim Creat Clear Calc 34.45 Est GFR (MDRD) Af Amer 45 L Est GFR (MDRD) Non-Af 37 L BUN/Creatinine Ratio 12.0 Glucose 212 H Lactic Acid Calcium 9.7 Total Bilirubin 0.60 AST 13 L ALT 20 Alkaline Phosphatase 75 Troponin I High Sens 6 Total Protein 7.5 Albumin 3.6 Globulin 3.9 Albumin/Globulin Ratio 0.9 Urine Color Urine Clarity Urine pH Ur Specific [place] Urine Protein Urine Glucose (UA) Urine Ketones Urine Occult Blood Urine Nitrite Urine Bilirubin Urine Urobilinogen Ur Leukocyte Esterase Urine RBC Urine WBC Ur Squamous Epith Cells Urine Bacteria Hyaline Casts Urine Mucus 07/04/22 07/04/22 02:40 03:08 WBC RBC Hgb Hct MCV MCH MCHC RDW Std Deviation RDW Coeff of Kirk Plt Count MPV Immature Gran % (Auto) Neut % (Auto) Lymph % (Auto) [place] % (Auto) Eos % (Auto) Baso % (Auto) Absolute Neuts (auto) Absolute Lymphs (auto) Nucleated RBC % PT INR APTT Sodium Potassium Chloride Carbon Dioxide Anion Gap BUN Creatinine Estim Creat Clear Calc Est GFR (MDRD) Af Amer Est GFR (MDRD) Non-Af BUN/Creatinine Ratio Glucose Lactic Acid 2.9 H* Calcium Total Bilirubin AST ALT Alkaline Phosphatase Troponin I High Sens Total Protein Albumin Globulin Albumin/Globulin Ratio Urine Color Yellow Urine Clarity Clear Urine pH 5.0 Ur Specific [place] 1.015 Urine Protein 15 H Urine Glucose (UA) Normal Urine Ketones Negative Urine Occult Blood Negative Urine Nitrite Negative Urine Bilirubin Negative Urine Urobilinogen 1 H Ur Leukocyte Esterase Negative Urine RBC 0 SEEN Urine WBC 0-5 SEEN Ur Squamous Epith Cells 0 SEEN Urine Bacteria 1+ Hyaline Casts 0-5 SEEN Urine Mucus 0 SEEN Radiography Chest X-Ray - ED: 1 View, Read by ED Physician, Read by Radiologist, Heart, Lungs, Mediastinum, Bony Structures, No Acute Disease and Chronic Changes Diagnostic Testing: Clinical Impression(s) from Imaging Studies Chest X-Ray 07/04/22 02:46 IMPRESSION: No radiographic evidence of acute cardiopulmonary disease. Electronically Signed: Luis Carlos Epperson MD at 3:32 EDT Reading Location ID and State: [facility] / [place] Tel , Service support , Chest x-ray, portable, single view, interpreted by myself and the radiologist shows no acute abnormality. Normal cardiac silhouette. Normal lung [place]. Noinfiltrates. Rhythm Strip Rhythm Strip: Sinus Tach Rate: 122 Ectopy: None EKG Initial EKG: Attestation: I personally reviewed and interpreted this EKG as follows: Interpretation: No Acute Injury Pattern and Sinus Tachycardia Comments: Sinus tachycardia rate of 122. No acute signs of NV or ischemia. No acute signs of dysrhythmia. Procedures Lacerations Left eyebrow 2 cm laceration repair:: Length: 1 in Depth: Sub Q Shape: Linear Prep: Shure-Clens Laceration repair: Lidocaine and Skin sutures Number of Sutures/[place]: 3 Suture Information: Ethilon and 5-0 Comment: Left eyebrow laceration. Approximately 1 inch in length. Linear. Locally anesthetized with lidocaine. Cleaned with Shur-Clens. Washed with saline. Explored. Closed using 3 simple interrupted 5-0 Ethilon sutures. Proper hemostasis wound closure is obtained. Critical Care Time Critical Care Time: Yes Critical care time (excluding procedures): 30-74 minutes, Including time spent:,Discussing w/Patient &/or Family/X Ray Tech, Discussing w/Consultants, ArrangingAdmission or Transfer, Performing Direct Patient Care at Bedside and - (34 min) Discharge Plan Dx/Rx/DC Orders Clinical Impression: Fall, Head injury, Laceration of eyebrow, left, Acute hypotension, Leukocytosis, Diarrhea, COVID, Sepsis associated hypotension, Acute kidney injury Disposition Disposition: Acute Care Hospital [facility] What to do if you have Problems For any increased pain, shortness of breath, bleeding, nausea or vomiting, chestpain, or any unexpected problems, contact your Primary Care Provider. Call [facility] ([phone]) or report to the closest Emergency Room. Call 911 if necessary. 07/04/22 0850 <Electronically signed by Mati Shaikh MD> Cosigner Signature (if applicable): CC: Dr. Simone Messer MD ~ Signed [facility] Work Phone: [phone]) 521-534205-01-2023 History and physical note Author Dr. Verma [facility] July 04, 2022 6:46am Note Date/Time July 04, 2022 4:37am [facility] System Medical Records Department [address] [place] [id number] H&P Exam - Hospitalist 07/04/22 0436 MR#: [id number] Acct: [id number] Name: ALLAN LARA Rep #:[id number] : [id number] 71 From: Sreekanth Verma MD PCP: Dr. Simone Messer MD Status:ADM I N Location: ICU ICU01-1 HPI - General General Date of Admission: 07/04/22 Date of Service: 07/04/22 Chief Complaint: Fall HPI Narrative ALLAN LARA, is a 71 M with a significant history of Schizoaffective disorder; delusional disorder; hypothyroidism; hypertension; and neoplasm of right kidney who presents from [facility] with a fall. Also patient sustained laceration of his left eyelid. At the emergency department patient was noted to have loose runny stools. He reported that he has had diarrhea for about 1 week. Patient admits to abdominal pain. Also reportedly a day before presentation patient was diagnosed with COVID. History is limited as patient does not provide answers to all questions. History was taken for emergency department doctor who discussed the case primarily with [facility]. [facility] Medical History (Updated 07/04/22 @ 05:[address] 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 Hypertension Hypothyroidism Neoplasm of uncertain behavior of right kidney Unspecified dementia, unspecified severity, without behavioral disturbance, psychotic disturbance, mood disturbance, and anxiety Home Medications amlodipine 10 mg tablet 10 mg PO QHS BP 07/30/17 [History Last Taken 07/11/19] levothyroxine 25 mcg tablet 50 mcg PO DAILY THYROID 07/30/17 [History Last Taken 07/11/19] tamsulosin 0.4 mg capsule 0.4 mg PO QHS PROSTATE 07/30/17 [History Last Taken 07/11/19] atorvastatin 10 mg tablet 10 mg PO QHS 07/04/22 [History Last Taken Unknown] cholecalciferol (vitamin D3) 125 mcg (5,000 unit) tablet (Vitamin D3) 125 mcg PODAILY 07/04/22 [History Last Taken Unknown] clozapine 100 mg tablet 100 mg PO DAILY 07/04/22 [History Last Taken Unknown] clozapine 200 mg tablet 200 mg PO QHS 07/04/22 [History Last Taken Unknown] fluoxetine 10 mg capsule (Prozac) 10 mg PO DAILY 07/04/22 [History Last Taken Unknown] ipratropium 0.5 mg-albuterol 3 mg (2.5 mg base)/3 mL nebulization soln 3 ml inhalation Q4H PRN PRN Wheezing 07/04/22 [History Last Taken Unknown] omeprazole 20 mg capsule,delayed release 20 mg PO DAILY 07/04/22 [History Last Taken Unknown] Allergy/AdvReac Type Severity Reaction Status Date / Time No Known Allergies Allergy Verified 07/28/19 19:39 unable to obtain (Patient is unable to provide answers) unable to obtain (Patient is unable to provide answers.) Social History Smoking Status: Never smoker ROS Review of Systems ROS Unobtainable: other Details: Due to psychiatry disorder Vital Signs Vital Signs Vital Signs: 07/04/22 02:33 07/04/22 02:36 07/04/22 02:58 Temperature 98.9 F Temperature Source Temporal Pulse Rate 119 H Respiratory Rate 20 H Respiratory Effort Normal Respiratory Depth Normal Respiratory Pattern Normal Blood Pressure 88/59 L Blood Pressure Mean 68 Pulse Ox 93 93 Oxygen Delivery Method Room Air Room Air Room Air 07/04/22 02:53 Temperature 97.8 F Temperature Source Temporal Pulse Rate 122 H Respiratory Rate 20 H Respiratory Effort Respiratory Depth Respiratory Pattern Blood Pressure 91/56 L Blood Pressure Mean 67 Pulse Ox 93 Oxygen Delivery Method Room Air Weight Weight: 72.8 kg Body Mass Index (BMI) 23.7 Physical Exam Narrative Physical exam: General: Patient with unkempt smith. Head: Normocephalic, atraumatic, no tenderness Eyes: Vision is grossly intact. EOMI ENT, no trauma, moist mucous membranes, no rhinorrhea Neck: Nontender, No thyromegaly. CVS: Regular rate and rhythm. S1-S2 present. No murmur, gallop or rub. Respiratory : clear to auscultation bilaterally, chest wall nontender Abdomen: Soft, tender, nondistended, normal bowel sounds, no masses : Deferred Back: Nontender, no CVA tenderness, no midline spinal tenderness, deformities, step-offs Extremities: Nontender full range of motion, no trauma Skin: Normal color, no trauma, abrasions Neuro: Alert, oriented, cranial nerves II through XII grossly intact. Psychiatry: Normal mood. Normal affect. Not depressed. Not anxious. Results Lab / Micro Data Result Diagrams: 07/04/22 02:40 07/04/22 02:40 Labs: Laboratory Results - last 24 hr 07/04/22 02:40: WBC 24.4 H, RBC 5.39, Hgb 15.9, Hct 49.5, MCV 91.8, MCH 29.5, MCHC 32.1, RDW Std Deviation 42.8, RDW Coeff of Kirk 12.8, Plt Count 356, MPV 10.7, Immature Gran % (Auto) 1.300 H, Neut % (Auto) 91.2 H, Lymph % (Auto) 3.6 L, [place] % (Auto) 3.7, Eos % (Auto) 0.0, Baso % (Auto) 0.2, Absolute Neuts (auto) 22.2 H, Absolute Lymphs (auto) 0.87, Nucleated RBC % 0 07/04/22 02:40: PT 12.8, INR 1.0, APTT 23.7 L 07/04/22 02:40: Sodium 140, Potassium 4.6, Chloride 104, Carbon Dioxide 27.0, Anion Gap 9, BUN 23 H, Creatinine 1.91 H, Estim Creat Clear Calc 34.45, Est GFR (MDRD) Af Amer 45 L, Est GFR (MDRD) Non-Af 37 L, BUN/Creatinine Ratio 12.0, Glucose 212 H, Calcium 9.7, Total Bilirubin 0.60, AST 13 L, ALT 20, Alkaline Phosphatase 75, Troponin I High Sens 6, Total Protein 7.5, Albumin 3.6, Globulin3.9, Albumin/Globulin Ratio 0.9 07/04/22 02:40: Lactic Acid 2.9 H* 07/04/22 03:08: Urine Color Yellow, Urine Clarity Clear, Urine pH 5.0, Ur Specific [place] 1.015, Urine Protein 15 H, Urine Glucose (UA) Normal, Urine Ketones Negative, Urine Occult Blood Negative, Urine Nitrite Negative, Urine Bilirubin Negative, Urine Urobilinogen 1 H, Ur Leukocyte Esterase Negative, Urine RBC 0 SEEN, Urine WBC 0- 5 SEEN, Ur Squamous Epith Cells 0 SEEN, Urine Bacteria 1+, Hyaline Casts 0-5 SEEN, Urine Mucus 0 SEEN Rhythm Strip Rhythm Strip: Sinus Tach Rate: 122 Ectopy: None Radiology Impression Chest X-Ray 07/04/22 02:46 IMPRESSION: No radiographic evidence of acute cardiopulmonary disease. Electronically Signed: Luis Carlos Epperson MD at 3:32 EDT Reading Location ID and State: [address] [place] [address] Tel , Service support , Assessment & Plan Assessment/Plan (1) Sepsis associated hypotension: (2) Gastroenteritis: (3) Acute hypotension: (4) Acute kidney injury: (5) Diabetes mellitus, type II: PLAN: Plan Sepsis secondary gastroenteritis The patient presented with sepsis due to (gastroenterology) with acute sepsis related organ dysfunction as evidenced by (lactic acidosis). SIRS criteria: Heart rate more than 90 WBC more than 12,000 (in patient's case is white count was 24,400). Also noted to have bandemia. organ dysfunction: SBP less than 90 or MAP less than 65 Lactic acid of more than 2 (lactic acid on presentation was 2.9) Impression of chest x-ray by radiology: No radiographic evidence of acute cardiopulmonary disease. Interpretation of chest x-ray by hospitalist: Agrees with radiology interpretation. Discussed with emergency department doctor to start patient on ceftriaxone and Flagyl. Ceftriaxone and Flagyl continued. Received 2 L of normal saline in the emergency department. We will continue patient on normal saline at 100mL per hour by which in 2 hours patient would have received a little more than 30 MLS per kg per septic shock protocol. CT of abdomen and pelvis ordered to the emergency department, follow. Trend CBC and lactic acid. Enteropathogenic regimen and C. difficile ordered. Fall with laceration Received tetanus injection in the emergency department. PT and OT to work with patient for balance and training and make recommendations. Vitamin D level ordered. Case management consulted HAYLIE His creatinine presentation was 1.91. Last creatinine in hospital system was inNov2019. At that time his creatinine was normal. IV fluids as above. Trend BMP. Avoid nephrotoxic's. Acute hypotension Secondary to sepsis. Hold home amlodipine. Trend blood pressures. COVID-19 infection No respiratory symptoms. Enhanced droplet precautions. Diabetes mellitus Blood glucoses slightly elevated. Not on outpatient hypoglycemic regimen. Check A1c. Trend BMP. DVT prophylaxis Subcutaneous Lovenox ordered. Charges/Coding Visit Charges Inpatient E&M: [id number] Init Hosp L3 07/04/22 0602 <Electronically signed by Sreekanth Verma MD> Cosigner Signature (if applicable): CC: Dr. Sreekanth Verma MD; Dr. Simone Messer MD~ Signed ADDENDUM by Dr. Sreekanth Verma MD on 07/04/22 at 0646 Addendum Gastroenteritis Abdomen/pelvis CT interpreted as gallstones without acute cholecystitis; and enteritis. Likely patient's symptoms is from enteritis. Antibiotics as above. 07/04/22 0646<Electronically signed by Sreekanth Verma MD> Cosigner Signature (if applicable): cc: Dr. Sreekanth Verma MD; Dr. Simone Messer MD ~* Signed [facility] Work Phone: 1(586) 436-371707-22-2022 NoteHNO ID: [id number] Author: Kirstin Escalante APRN.GROUP ACCOUNT DIRECTOR Service: ? Author Type: Nurse Practitioner Type: Progress Notes Filed: 10/01/2021 3:10 PM Note Text: Allan Lara is a 71 year old male seen today for f/u on chronic conditions. Denies pain. Med compliant . VSSAF. Denies SOB or CP. No n/v . NAD. OT. Concern(s) today include: DM 2/ hld His medications were reviewed today and his list is now up to date. He is compliant on taking his medications :Yes He is tolerating his medication(s) without side effects: Yes REVIEW OF SYSTEMS 10 Points review of system negative apart from HPI. PAST MEDICAL HISTORY Diagnosis Date - Bipolar 1 disorder (HCC) - Depression - DM II (diabetes mellitus, type II), controlled (HCC) - Hypertension - Hypothyroidism - Schizophrenia, schizo-affective (HCC) - Vitamin B12 deficiency PAST SURGICAL HISTORY Procedure Laterality Date - APPENDECTOMY HX - COLONOSCOPY 09/05/2017 repeat in [address] Prakash - EGD 09/05/2017 Lorenzana's, repeat in [address] Prakash FAMILY HISTORY Problem Relation Age of Onset - Cancer Mother , lung and bone cancer - Alzheimer's Disease Father - GI Brother PUD Social History Tobacco Use - Smoking status: Never Smoker - Smokeless tobacco: Never Used Substance Use Topics - Alcohol use: Yes Comment: no use in 27 yearas - Drug use: Yes Comment: remote: diet pills ACTIVE PROBLEM LIST Slow Transit Constipation Fracture of Metacarpal Bone Essential Hypertension Hypothyroidism ALLERGIES Allergen Reactions - Cortisone Rash Vitals and Medications reviewed in [facility] system. PHYSICAL EXAMINATION: General appearance: Well appearing, alert, in no acute distress, well nourished. Neck: thyroid symmetric, normal size, no bruits Lungs: Lungs clear to auscultation. No wheezing, rhonchi, rales Heart: Normal rate and rhythm, without murmur, gallop, or rubs. Abdomen: Normal abdominal exam, Abdomen soft, non-tender. Bowel sounds normal. No masses Extremities: No edema or deformity Good capillary refill. Musculoskeletal: No joint swelling, deformity, or tenderness Peripheral pulses: Normal Neuro: no focal deficit. ASSESSMENT/PLAN: 1. HTN Stable 2. Renal Mass F/u with urology as scheduled Summer [facility] History of Present illness Narrative* Kirstin Escalante APRN.CNP - 09/24/2021 3:09 PM EDT Allan Lara is a 71 year old male seen today for f/u on chronic conditions. Denies pain. Med compliant . VSSAF. Denies SOB or CP. No n/v . NAD. OT. Concern(s) today include: DM 2/ hld His medications were reviewed today and his list is now up to date. He is compliant on taking his medications :Yes He is tolerating his medication(s) without side effects: Yes REVIEW OF SYSTEMS 10 Points review of system negative apart from HPI. PAST MEDICAL HISTORY Diagnosis Date Bipolar 1 disorder (HCC) Depression DM II (diabetes mellitus, type II), controlled (HCC) Hypertension Hypothyroidism Schizophrenia, schizo-affective (HCC) Vitamin B12 deficiency PAST SURGICAL HISTORY Procedure Laterality Date APPENDECTOMY HX COLONOSCOPY 09/05/2017 repeat in [address] Prakash EGD 09/05/2017 [facility], repeat in [address] Prakash FAMILY HISTORY Problem Relation Age of Onset Cancer Mother , lung and bone cancer Alzheimer's Disease Father GI Brother PUD Social History Tobacco Use Smoking status: Never Smoker Smokeless tobacco: Never Used Substance Use Topics Alcohol use: Yes Comment: no use in 27 yearas Drug use: Yes Comment: remote: diet pills ACTIVE PROBLEM LIST Slow Transit Constipation Fracture of Metacarpal Bone Essential Hypertension Hypothyroidism ALLERGIES Allergen Reactions Cortisone Rash Vitals and Medications reviewed in [facility] system. PHYSICAL EXAMINATION: General appearance: Well appearing, alert, in no acute distress, well nourished. Neck: thyroid symmetric, normal size, no bruits Lungs: Lungs clear to auscultation. No wheezing, rhonchi, rales Heart: Normal rate and rhythm, without murmur, gallop, or rubs. Abdomen: Normal abdominal exam, Abdomen soft, non-tender. Bowel sounds normal. No masses Extremities: No edema or deformity Good capillary refill. Musculoskeletal: No joint swelling, deformity, or tenderness Peripheral pulses: Normal Neuro: no focal deficit. ASSESSMENT/PLAN: 1. HTN Stable 2. Renal Mass F/u with urology as scheduled Kirstin Escalante APRN.CNP [facility]* Diagnosis Stage 3 chronic kidney disease, unspecified whether stage 3a or 3b CKD (HCC)- Primary Muscle weakness (generalized) documented in this encounter [facility]07-18-2022 NoteHNO ID: [id number] Author: Kirstin Escalante APRN.GROUP ACCOUNT DIRECTOR Service: ? Author Type: Nurse Practitioner Type: Progress Notes Filed: 09/24/2021 1:43 PM Note Text: Allan Lara is a 71 year old male seen today for skilled visit. Denies pain. Denies N/V or further diarrhea. Med compliant . VSSAF. Denies SOB or CP.NAD. Concern(s) today include: Skilled His medications were reviewed today and his list is now up to date. He is compliant on taking his medications :Yes He is tolerating his medication(s) without side effects: Yes REVIEW OF SYSTEMS 10 Points review of system negative apart from HPI. PAST MEDICAL HISTORY Diagnosis Date - Bipolar 1 disorder (HCC) - Depression - DM II (diabetes mellitus, type II), controlled ([facility]) - Hypertension - Hypothyroidism - Schizophrenia, schizo-affective ([facility]) - Vitamin B12 deficiency PAST SURGICAL HISTORY Procedure Laterality Date - APPENDECTOMY HX - COLONOSCOPY 09/05/2017 repeat in [address] Prakash - EGD 09/05/2017 [facility], repeat in [address] Prakash FAMILY HISTORY Problem Relation Age of Onset - Cancer Mother , lung and bone cancer - Alzheimer's Disease Father - GI Brother PUD Social History Tobacco Use - Smoking status: Never Smoker - Smokeless tobacco: Never Used Substance Use Topics - Alcohol use: Yes Comment: no use in 27 yearas - Drug use: Yes Comment: remote: diet pills ACTIVE PROBLEM LIST Slow Transit Constipation Fracture of Metacarpal Bone Essential Hypertension Hypothyroidism ALLERGIES Allergen Reactions - Cortisone Rash Vitals and Medications reviewed in [facility] system. PHYSICAL EXAMINATION: General appearance: Well appearing, alert, in no acute distress, well nourished. Neck: thyroid symmetric, normal size, no bruits Lungs: Lungs clear to auscultation. No wheezing, rhonchi, rales Heart: Normal rate and rhythm, without murmur, gallop, or rubs. Abdomen: Normal abdominal exam, Abdomen soft, non-tender. Bowel sounds normal. No masses Extremities: No edema or deformity Good capillary refill. Musculoskeletal: No joint swelling, deformity, or tenderness Peripheral pulses: Normal Neuro: no focal deficit. ASSESSMENT/PLAN: 1. Stage 3 chronic kidney disease, unspecified whether stage 3a or 3b CKD (HCC) - ICD9: 585.3, ICD10: N18.30 (primary diagnosis) Monitor bmp avoid nephrotoxic meds 2. Muscle weakness PT/OT Kirstin Escalante APRN.[facility] History of Present illness Narrative* Kirstin Escalante APRN.GROUP ACCOUNT DIRECTOR - 09/20/2021 1:40 PM EDT Allan Lara is a 71 year old male seen today for skilled visit. Denies pain. Denies N/V or further diarrhea. Med compliant . VSSAF. Denies SOB or CP.NAD. Concern(s) today include: Skilled His medications were reviewed today and his list is now up to date. He is compliant on taking his medications :Yes He is tolerating his medication(s) without side effects: Yes REVIEW OF SYSTEMS 10 Points review of system negative apart from HPI. PAST MEDICAL HISTORY Diagnosis Date Bipolar 1 disorder (HCC) Depression DM II (diabetes mellitus, type II), controlled ([facility]) Hypertension Hypothyroidism Schizophrenia, schizo-affective (HCC) Vitamin B12 deficiency PAST SURGICAL HISTORY Procedure Laterality Date APPENDECTOMY HX COLONOSCOPY 09/05/2017 repeat in [address] Prakash EGD 09/05/2017 [facility]'s, repeat in [address] Prakash FAMILY HISTORY Problem Relation Age of Onset Cancer Mother , lung and bone cancer Alzheimer's Disease Father GI Brother PUD Social History Tobacco Use Smoking status: Never Smoker Smokeless tobacco: Never Used Substance Use Topics Alcohol use: Yes Comment: no use in 27 yearas Drug use: Yes Comment: remote: diet pills ACTIVE PROBLEM LIST Slow Transit Constipation Fracture of Metacarpal Bone Essential Hypertension Hypothyroidism ALLERGIES Allergen Reactions Cortisone Rash Vitals and Medications reviewed in [facility] system. PHYSICAL EXAMINATION: General appearance: Well appearing, alert, in no acute distress, well nourished. Neck: thyroid symmetric, normal size, no bruits Lungs: Lungs clear to auscultation. No wheezing, rhonchi, rales Heart: Normal rate and rhythm, without murmur, gallop, or rubs. Abdomen: Normal abdominal exam, Abdomen soft, non-tender. Bowel sounds normal. No masses Extremities: No edema or deformity Good capillary refill. Musculoskeletal: No joint swelling, deformity, or tenderness Peripheral pulses: Normal Neuro: no focal deficit. ASSESSMENT/PLAN: 1. Stage 3 chronic kidney disease, unspecified whether stage 3a or 3b CKD (HCC) - ICD9: 585.3, ICD10: N18.30 (primary diagnosis) Monitor bmp avoid nephrotoxic meds 2. Muscle weakness PT/OT Kirstin Escalante APRN.GROUP ACCOUNT DIRECTOR documented in [facility]-2022 NoteHNO ID: [id number] Author: Kirstin Escalante APRN.CNP Service: ? Author Type: Nurse Practitioner Type: Progress Notes Filed: 09/20/2021 2:47 PM Note Text: Allan Lara is a 71 year old male seen today per Nursing request. R had c/o acute abd geiger, n/v and diarrhea. Sent to [facility] ED, sent back with zofran prn. C/o abd pain continue but R states better 10. Denies further loose stools. Mild nausea with some relief with 4 mg po zofran. Hx nonobstructive gallstones, appt with general surgeon as scheduled. Denies SOB or CP. NAD. OT. Guardian Kaycee updated. Concern(s) today include: Gallstones/diarrhea His medications were reviewed today and his list is now up to date. He is compliant on taking his medications :Yes He is tolerating his medication(s) without side effects: Yes REVIEW OF SYSTEMS 10 Points review of system negative apart from HPI. PAST MEDICAL HISTORY Diagnosis Date - Bipolar 1 disorder (HCC) - Depression - DM II (diabetes mellitus, type II), controlled ([facility]) - Hypertension - Hypothyroidism - Schizophrenia, schizo-affective (HCC) - Vitamin B12 deficiency PAST SURGICAL HISTORY Procedure Laterality Date - APPENDECTOMY HX - COLONOSCOPY 09/05/2017 repeat in [address] Prakash - EGD 09/05/2017 Loren[facility]ana's, repeat in [address] Prakash FAMILY HISTORY Problem Relation Age of Onset - Cancer Mother , lung and bone cancer - Alzheimer's Disease Father - GI Brother PUD Social History Tobacco Use - Smoking status: Never Smoker - Smokeless tobacco: Never Used Substance Use Topics - Alcohol use: Yes Comment: no use in 27 yearas - Drug use: Yes Comment: remote: diet pills ACTIVE PROBLEM LIST Slow Transit Constipation Fracture of Metacarpal Bone Essential Hypertension Hypothyroidism ALLERGIES Allergen Reactions - Cortisone Rash Vitals and Medications reviewed in [facility] system. PHYSICAL EXAMINATION: General appearance: Well appearing, alert, in no acute distress, well nourished. Neck: thyroid symmetric, normal size, no bruits Lungs: Lungs clear to auscultation. No wheezing, rhonchi, rales Heart: Normal rate and rhythm, without murmur, gallop, or rubs. Abdomen:Abdomen softly distended, generalized tenderness, mild guarding no rebound Bowel sounds normal. No masses Extremities: No edema or deformity Good capillary refill. Musculoskeletal: No joint swelling, deformity, or tenderness Peripheral pulses: Normal Neuro: no focal deficit. ASSESSMENT/PLAN: 1. Calculus of gallbladder with acute on chronic cholecystitis without obstruction - ICD9: 574.00, 574.10, ICD10: K80.12 (primary diagnosis) reschedule appt with Surgey/GI Zofran prn Encourage no fluids 2. Diarrhea, unspecified type - ICD9: 787.91, ICD10: R19.7 Resolved Summer TABATHA Escalante.[facility]07-13-2022 NoteED Nursing Discharge Summary Entered On: 09/15/2021 13:45 EDT Performed On: 09/15/2021 13:40 EDT by Giovana Glover RN ME Information [id number] ED IV's : Discontinue ED IV Site Assessment : Yes, Completed in [facility] ED Vitals Completed : Yes ED Final Assessment Completed : Yes ED Progress Note Completed : Yes Complete all PRN/Pain response forms? : N/A ED Disassociate Patient from Monitor : N/A Updated Depart Time : Yes ED Belongings sent w patient [id number] : Not applicable Giovana Glover RN - 09/15/2021 13:44 EDT Education Instructions given to : Patient, Other: Nurse at [facility] Methodology : Explanation, Printed Material Barriers to Learning : None evident Giovana Glover RN - 09/15/2021 13:44 EDT Post-Hospital Education Adult Grid Disease Process : Verbalizes understanding Importance of Follow-Up Visits : Verbalizes understanding Plan of Care : Verbalizes understanding When to Call Health Care Provider : Verbalizes understanding Giovana Glover RN - 09/15/2021 13:44 EDT Medication Education Adult Grid Med Generic/Brand Name, Purpose, Action : Verbalizes understanding Giovana Glover RN - 09/15/2021 13:44 EDT ED Assistance Summary Assistance Given? : No Giovana Glover RN - 09/15/2021 13:44 EDT [facility]07-13-2022 History of Present illness Narrative* Kirstin Escalante APRN.GROUP ACCOUNT DIRECTOR - 09/15/2021 2:39 PM EDT Allan Lara is a 71 year old male seen today per Nursing request. R had c/o acute abd geiger, n/v and diarrhea. Sent to [facility] ED, sent back with zofran prn. C/o abd pain continue but R states better 10. Denies further loose stools. Mild nausea with some relief with 4 mg po zofran. Hx nonobstructive gallstones, appt with general surgeon as scheduled. Denies SOB or CP. NAD. OT. Guardian Kaycee updated. Concern(s) today include: Gallstones/diarrhea His medications were reviewed today and his list is now up to date. He is compliant on taking his medications :Yes He is tolerating his medication(s) without side effects: Yes REVIEW OF SYSTEMS 10 Points review of system negative apart from HPI. PAST MEDICAL HISTORY Diagnosis Date Bipolar 1 disorder (HCC) Depression DM II (diabetes mellitus, type II), controlled (HCC) Hypertension Hypothyroidism Schizophrenia, schizo-affective (HCC) Vitamin B12 deficiency PAST SURGICAL HISTORY Procedure Laterality Date APPENDECTOMY HX COLONOSCOPY 09/05/2017 repeat in [address] Prakash EGD 09/05/2017 [facility], repeat in [address] Prakash FAMILY HISTORY Problem Relation Age of Onset Cancer Mother , lung and bone cancer Alzheimer's Disease Father GI Brother PUD Social History Tobacco Use Smoking status: Never Smoker Smokeless tobacco: Never Used Substance Use Topics Alcohol use: Yes Comment: no use in 27 yearas Drug use: Yes Comment: remote: diet pills ACTIVE PROBLEM LIST Slow Transit Constipation Fracture of Metacarpal Bone Essential Hypertension Hypothyroidism ALLERGIES Allergen Reactions Cortisone Rash Vitals and Medications reviewed in [facility] system. PHYSICAL EXAMINATION: General appearance: Well appearing, alert, in no acute distress, well nourished. Neck: thyroid symmetric, normal size, no bruits Lungs: Lungs clear to auscultation. No wheezing, rhonchi, rales Heart: Normal rate and rhythm, without murmur, gallop, or rubs. Abdomen:Abdomen softly distended, generalized tenderness, mild guarding no rebound Bowel sounds normal. No masses Extremities: No edema or deformity Good capillary refill. Musculoskeletal: No joint swelling, deformity, or tenderness Peripheral pulses: Normal Neuro: no focal deficit. ASSESSMENT/PLAN: 1. Calculus of gallbladder with acute on chronic cholecystitis without obstruction - ICD9: 574.00, 574.10, ICD10: K80.12 (primary diagnosis) reschedule appt with Surgey/GI Zofran prn Encourage no fluids 2. Diarrhea, unspecified type - ICD9: 787.91, ICD10: R19.7 Resolved Kirstin Escalante APRN.BOAZ documented [facility] NoteHNO ID: [id number] Author: Kirstin Escalante APRN.BOAZ Service: ? Author Type: Nurse Practitioner Type: Progress Notes Filed: 09/15/2021 2:57 PM Note Text: Allan Lara is a 71 year old male seen today per R request. C/o heartburn during OT. On daily PPI. Denies /V/D. Denies abd pain. Hx nonobstructive gallstones, appt with general surgeon as scheduled. Denies SOB or CP. NAD. OT. Concern(s) today include: HTN/heartburn His medications were reviewed today and his list is now up to date. He is compliant on taking his medications :Yes He is tolerating his medication(s) without side effects: Yes REVIEW OF SYSTEMS 10 Points review of system negative apart from HPI. PAST MEDICAL HISTORY Diagnosis Date - Bipolar 1 disorder (HCC) - Depression - DM II (diabetes mellitus, type II), controlled (HCC) - Hypertension - Hypothyroidism - Schizophrenia, schizo-affective (HCC) - Vitamin B12 deficiency PAST SURGICAL HISTORY Procedure Laterality Date - APPENDECTOMY HX - COLONOSCOPY 09/05/2017 repeat in [address] Prakash - EGD 09/05/2017 [facility], repeat in [address] Prakash FAMILY HISTORY Problem Relation Age of Onset - Cancer Mother , lung and bone cancer - Alzheimer's Disease Father - GI Brother PUD Social History Tobacco Use - Smoking status: Never Smoker - Smokeless tobacco: Never Used Substance Use Topics - Alcohol use: Yes Comment: no use in 27 yearas - Drug use: Yes Comment: remote: diet pills ACTIVE PROBLEM LIST Slow Transit Constipation Fracture of Metacarpal Bone Essential Hypertension Hypothyroidism ALLERGIES Allergen Reactions - Cortisone Rash Vitals and Medications reviewed in [facility] system. PHYSICAL EXAMINATION: General appearance: Well appearing, alert, in no acute distress, well nourished. Neck: thyroid symmetric, normal size, no bruits Lungs: Lungs clear to auscultation. No wheezing, rhonchi, rales Heart: Normal rate and rhythm, without murmur, gallop, or rubs. Abdomen: Normal abdominal exam, Abdomen soft, non-tender. Bowel sounds normal. No masses Extremities: No edema or deformity Good capillary refill. Musculoskeletal: No joint swelling, deformity, or tenderness Peripheral pulses: Normal Neuro: no focal deficit. ASSESSMENT/PLAN: 1. Essential hypertension - ICD9: 401.9, ICD10: I10 (primary diagnosis) - good control - Recommended regular aerobic exercise. - Goal of BP <130/80 2. Heartburn Daily PPI Prn mylanta Kirstin Escalante APRN.[facility] History of Present illness Narrative* Kirstin Escalante APRN.GROUP ACCOUNT DIRECTOR - 09/13/2021 2:55 PM EDT Allan Lara is a 71 year old male seen today per R request. C/o heartburn during OT. On daily PPI. Denies /V/D. Denies abd pain. Hx nonobstructive gallstones, appt with general surgeon as scheduled. Denies SOB or CP. NAD. OT. Concern(s) today include: HTN/heartburn His medications were reviewed today and his list is now up to date. He is compliant on taking his medications :Yes He is tolerating his medication(s) without side effects: Yes REVIEW OF SYSTEMS 10 Points review of system negative apart from HPI. PAST MEDICAL HISTORY Diagnosis Date Bipolar 1 disorder (HCC) Depression DM II (diabetes mellitus, type II), controlled (HCC) Hypertension Hypothyroidism Schizophrenia, schizo-affective (HCC) Vitamin B12 deficiency PAST SURGICAL HISTORY Procedure Laterality Date APPENDECTOMY HX COLONOSCOPY 09/05/2017 repeat in [address] Prakash EGD 09/05/2017 [facility], repeat in [address] Prakash FAMILY HISTORY Problem Relation Age of Onset Cancer Mother , lung and bone cancer Alzheimer's Disease Father GI Brother PUD Social History Tobacco Use Smoking status: Never Smoker Smokeless tobacco: Never Used Substance Use Topics Alcohol use: Yes Comment: no use in 27 yearas Drug use: Yes Comment: remote: diet pills ACTIVE PROBLEM LIST Slow Transit Constipation Fracture of Metacarpal Bone Essential Hypertension Hypothyroidism ALLERGIES Allergen Reactions Cortisone Rash Vitals and Medications reviewed in [facility] system. PHYSICAL EXAMINATION: General appearance: Well appearing, alert, in no acute distress, well nourished. Neck: thyroid symmetric, normal size, no bruits Lungs: Lungs clear to auscultation. No wheezing, rhonchi, rales Heart: Normal rate and rhythm, without murmur, gallop, or rubs. Abdomen: Normal abdominal exam, Abdomen soft, non-tender. Bowel sounds normal. No masses Extremities: No edema or deformity Good capillary refill. Musculoskeletal: No joint swelling, deformity, or tenderness Peripheral pulses: Normal Neuro: no focal deficit. ASSESSMENT/PLAN: 1. Essential hypertension - ICD9: 401.9, ICD10: I10 (primary diagnosis) - good control - Recommended regular aerobic exercise. - Goal of BP <130/80 2. Heartburn Daily PPI Prn mylanta Kirstin Escalante APRN.CNP documented in this [facility] NoteHNO ID: [id number] Author: Kirstin Escalante APRN.CNP Service: ? Author Type: Nurse Practitioner Type: Progress Notes Filed: 09/12/2021 10:13 PM Note Text: Allan Lara is a 71 year old male seen today for f/u on chronic conditions. Denies pain. Med compliant . VSSAF. Denies SOB or CP. No n/v . NAD. OT. Concern(s) today include: DM 2/ hld His medications were reviewed today and his list is now up to date. He is compliant on taking his medications :Yes He is tolerating his medication(s) without side effects: Yes REVIEW OF SYSTEMS 10 Points review of system negative apart from HPI. PAST MEDICAL HISTORY Diagnosis Date - Bipolar 1 disorder (HCC) - Depression - DM II (diabetes mellitus, type II), controlled (HCC) - Hypertension - Hypothyroidism - Schizophrenia, schizo-affective (HCC) - Vitamin B12 deficiency PAST SURGICAL HISTORY Procedure Laterality Date - APPENDECTOMY HX - COLONOSCOPY 09/05/2017 repeat in [address] Prakash - EGD 09/05/2017 [facility], repeat in [address] Prakash FAMILY HISTORY Problem Relation Age of Onset - Cancer Mother , lung and bone cancer - Alzheimer's Disease Father - GI Brother PUD Social History Tobacco Use - Smoking status: Never Smoker - Smokeless tobacco: Never Used Substance Use Topics - Alcohol use: Yes Comment: no use in 27 yearas - Drug use: Yes Comment: remote: diet pills ACTIVE PROBLEM LIST Slow Transit Constipation Fracture of Metacarpal Bone Essential Hypertension Hypothyroidism ALLERGIES Allergen Reactions - Cortisone Rash Vitals and Medications reviewed in [facility] system. PHYSICAL EXAMINATION: General appearance: Well appearing, alert, in no acute distress, well nourished. Neck: thyroid symmetric, normal size, no bruits Lungs: Lungs clear to auscultation. No wheezing, rhonchi, rales Heart: Normal rate and rhythm, without murmur, gallop, or rubs. Abdomen: Normal abdominal exam, Abdomen soft, non-tender. Bowel sounds normal. No masses Extremities: No edema or deformity Good capillary refill. Musculoskeletal: No joint swelling, deformity, or tenderness Peripheral pulses: Normal Neuro: no focal deficit. ASSESSMENT/PLAN: 1. Stage 3 chronic kidney disease, unspecified whether stage 3a or 3b CKD (HCC) - ICD9: 585.3, ICD10: N18.30 (primary diagnosis) Monitor bmp avoid nephrotoxic meds 2. Renal Mass F/u with urology as scheduled Kirstin Escalante APRN.CNPAult[facility]07-08-[facility] History of Present illness Narrative* Kirstin Escalante APRN.CNP - 09/10/2021 5:13 PM EDT Allan Lara is a 71 year old male seen today for f/u on chronic conditions. Denies pain. Med compliant . VSSAF. Denies SOB or CP. No n/v . NAD. OT. Concern(s) today include: DM 2/ hld His medications were reviewed today and his list is now up to date. He is compliant on taking his medications :Yes He is tolerating his medication(s) without side effects: Yes REVIEW OF SYSTEMS 10 Points review of system negative apart from HPI. PAST MEDICAL HISTORY Diagnosis Date Bipolar 1 disorder (HCC) Depression DM II (diabetes mellitus, type II), controlled (HCC) Hypertension Hypothyroidism Schizophrenia, schizo-affective (HCC) Vitamin B12 deficiency PAST SURGICAL HISTORY Procedure Laterality Date APPENDECTOMY HX COLONOSCOPY 09/05/2017 repeat in [address] Prakash EGD 09/05/2017 [facility], repeat in [address] Prakash FAMILY HISTORY Problem Relation Age of Onset Cancer Mother , lung and bone cancer Alzheimer's Disease Father GI Brother PUD Social History Tobacco Use Smoking status: Never Smoker Smokeless tobacco: Never Used Substance Use Topics Alcohol use: Yes Comment: no use in 27 yearas Drug use: Yes Comment: remote: diet pills ACTIVE PROBLEM LIST Slow Transit Constipation Fracture of Metacarpal Bone Essential Hypertension Hypothyroidism ALLERGIES Allergen Reactions Cortisone Rash Vitals and Medications reviewed in [facility] system. PHYSICAL EXAMINATION: General appearance: Well appearing, alert, in no acute distress, well nourished. Neck: thyroid symmetric, normal size, no bruits Lungs: Lungs clear to auscultation. No wheezing, rhonchi, rales Heart: Normal rate and rhythm, without murmur, gallop, or rubs. Abdomen: Normal abdominal exam, Abdomen soft, non-tender. Bowel sounds normal. No masses Extremities: No edema or deformity Good capillary refill. Musculoskeletal: No joint swelling, deformity, or tenderness Peripheral pulses: Normal Neuro: no focal deficit. ASSESSMENT/PLAN: 1. Stage 3 chronic kidney disease, unspecified whether stage 3a or 3b CKD (HCC) - ICD9: 585.3, ICD10: N18.30 (primary diagnosis) Monitor bmp avoid nephrotoxic meds 2. Renal Mass F/u with urology as scheduled Kirstin Escalante APRN.GROUP ACCOUNT DIRECTOR documented in this encounter[facility] Evaluation note* Diagnosis Stage 3 chronic kidney disease, unspecified whether stage 3a or 3b CKD (HCC)- Primary Constipation, unspecified constipation type documented in this encounter [facility] NoteHNO ID: [id number] Author: Kirstin Escalante APRN.BOAZ Service: ? Author Type: Nurse Practitioner Type: Progress Notes Filed: 08/17/2021 3:33 PM Note Text: Allan Lara is a 71 year old male seen today pern mell hilliard. C/o constipation x 2 days. Denies pain. Denies N/V. Med compliant . VSSAF. Denies SOB or CP. No n/v . NAD. Concern(s) today include: Constipation His medications were reviewed today and his list is now up to date. He is compliant on taking his medications :Yes He is tolerating his medication(s) without side effects: Yes REVIEW OF SYSTEMS 10 Points review of system negative apart from HPI. PAST MEDICAL HISTORY Diagnosis Date - Bipolar 1 disorder (HCC) - Depression - DM II (diabetes mellitus, type II), controlled ([facility]) - Hypertension - Hypothyroidism - Schizophrenia, schizo-affective ([facility]) - Vitamin B12 deficiency PAST SURGICAL HISTORY Procedure Laterality Date - APPENDECTOMY HX - COLONOSCOPY 09/05/2017 repeat in [address] Prakash - EGD 09/05/2017 [facility], repeat in [address] Prakash FAMILY HISTORY Problem Relation Age of Onset - Cancer Mother , lung and bone cancer - Alzheimer's Disease Father - GI Brother PUD Social History Tobacco Use - Smoking status: Never Smoker - Smokeless tobacco: Never Used Substance Use Topics - Alcohol use: Yes Comment: no use in 27 yearas - Drug use: Yes Comment: remote: diet pills ACTIVE PROBLEM LIST Slow Transit Constipation Fracture of Metacarpal Bone Essential Hypertension Hypothyroidism ALLERGIES Allergen Reactions - Cortisone Rash Vitals and Medications reviewed in [facility] system. PHYSICAL EXAMINATION: General appearance: Well appearing, alert, in no acute distress, well nourished. Neck: thyroid symmetric, normal size, no bruits Lungs: Lungs clear to auscultation. No wheezing, rhonchi, rales Heart: Normal rate and rhythm, without murmur, gallop, or rubs. Abdomen: Normal abdominal exam, Abdomen soft, non-tender. Bowel sounds normal. No masses Extremities: No edema or deformity Good capillary refill. Musculoskeletal: No joint swelling, deformity, or tenderness Peripheral pulses: Normal Neuro: no focal deficit. ASSESSMENT/PLAN: 1. Stage 3 chronic kidney disease, unspecified whether stage 3a or 3b CKD (HCC) - ICD9: 585.3, ICD10: N18.30 (primary diagnosis) Monitor bmp avoid nephrotoxic meds 2. Constipation, unspecified constipation type - ICD9: 564.00, ICD10: K59.00 Add MOM PRN With current regimen current regimen summergarret, HAT FORMER.[facility]06-13-2022 History of Present illness Narrative* summer, HAT FORMER.GROUP ACCOUNT DIRECTOR - 08/16/2021 3:26 PM EDT Allan Lara is a 71 year old male seen today pern ursing request. C/o constipation x 2 days. Denies pain. Denies N/V. Med compliant . VSSAF. Denies SOB or CP. No n/v . NAD. Concern(s) today include: Constipation His medications were reviewed today and his list is now up to date. He is compliant on taking his medications :Yes He is tolerating his medication(s) without side effects: Yes REVIEW OF SYSTEMS 10 Points review of system negative apart from HPI. PAST MEDICAL HISTORY Diagnosis Date Bipolar 1 disorder (HCC) Depression DM II (diabetes mellitus, type II), controlled ([facility]) Hypertension Hypothyroidism Schizophrenia, schizo-affective (HCC) Vitamin B12 deficiency PAST SURGICAL HISTORY Procedure Laterality Date APPENDECTOMY HX COLONOSCOPY 09/05/2017 repeat in [address] Prakash EGD 09/05/2017 [facility], repeat in [address] Prakash FAMILY HISTORY Problem Relation Age of Onset Cancer Mother , lung and bone cancer Alzheimer's Disease Father GI Brother PUD Social History Tobacco Use Smoking status: Never Smoker Smokeless tobacco: Never Used Substance Use Topics Alcohol use: Yes Comment: no use in 27 yearas Drug use: Yes Comment: remote: diet pills ACTIVE PROBLEM LIST Slow Transit Constipation Fracture of Metacarpal Bone Essential Hypertension Hypothyroidism ALLERGIES Allergen Reactions Cortisone Rash Vitals and Medications reviewed in [facility] system. PHYSICAL EXAMINATION: General appearance: Well appearing, alert, in no acute distress, well nourished. Neck: thyroid symmetric, normal size, no bruits Lungs: Lungs clear to auscultation. No wheezing, rhonchi, rales Heart: Normal rate and rhythm, without murmur, gallop, or rubs. Abdomen: Normal abdominal exam, Abdomen soft, non-tender. Bowel sounds normal. No masses Extremities: No edema or deformity Good capillary refill. Musculoskeletal: No joint swelling, deformity, or tenderness Peripheral pulses: Normal Neuro: no focal deficit. ASSESSMENT/PLAN: 1. Stage 3 chronic kidney disease, unspecified whether stage 3a or 3b CKD (HCC) - ICD9: 585.3, ICD10: N18.30 (primary diagnosis) Monitor bmp avoid nephrotoxic meds 2. Constipation, unspecified constipation type - ICD9: 564.00, ICD10: K59.00 Add MOM PRN With current regimen current regimen Kirstin Escalante APRN.BOAZ documented in this encounterMer[facility]06[facility]22 NoteHNO ID: [id number] Author: Kirstin Escalante APRN.BOAZ Service: ? Author Type: Nurse Practitioner Type: Progress Notes Filed: 08/12/2021 9:54 PM Note Text: Allan Lara is a 71 year old male seen today for f/u on chronic conditions.Awaiitng vy. Denies pain. Med compliant . VSSAF. Denies SOB or CP. No n/v . NAD. OT. Concern(s) today include: DM 2/ hld His medications were reviewed today and his list is now up to date. He is compliant on taking his medications :Yes He is tolerating his medication(s) without side effects: Yes REVIEW OF SYSTEMS 10 Points review of system negative apart from HPI. PAST MEDICAL HISTORY Diagnosis Date - Bipolar 1 disorder (HCC) - Depression - DM II (diabetes mellitus, type II), controlled (HCC) - Hypertension - Hypothyroidism - Schizophrenia, schizo-affective (HCC) - Vitamin B12 deficiency PAST SURGICAL HISTORY Procedure Laterality Date - APPENDECTOMY HX - COLONOSCOPY 09/05/2017 repeat in [address] Prakash - EGD 09/05/2017 [facility], repeat in [address] Prakash FAMILY HISTORY Problem Relation Age of Onset - Cancer Mother , lung and bone cancer - Alzheimer's Disease Father - GI Brother PUD Social History Tobacco Use - Smoking status: Never Smoker - Smokeless tobacco: Never Used Substance Use Topics - Alcohol use: Yes Comment: no use in 27 yearas - Drug use: Yes Comment: remote: diet pills ACTIVE PROBLEM LIST Slow Transit Constipation Fracture of Metacarpal Bone Essential Hypertension Hypothyroidism ALLERGIES Allergen Reactions - Cortisone Rash Vitals and Medications reviewed in [facility] system. PHYSICAL EXAMINATION: General appearance: Well appearing, alert, in no acute distress, well nourished. Neck: thyroid symmetric, normal size, no bruits Lungs: Lungs clear to auscultation. No wheezing, rhonchi, rales Heart: Normal rate and rhythm, without murmur, gallop, or rubs. Abdomen: Normal abdominal exam, Abdomen soft, non-tender. Bowel sounds normal. No masses Extremities: No edema or deformity Good capillary refill. Musculoskeletal: No joint swelling, deformity, or tenderness Peripheral pulses: Normal Neuro: no focal deficit. ASSESSMENT/PLAN: 1. Stage 3 chronic kidney disease, unspecified whether stage 3a or 3b CKD (HCC) - ICD9: 585.3, ICD10: N18.30 (primary diagnosis) Monitor bmp avoid nephrotoxic meds 2. Renal Mass F/u with urology as scheduled Kirstin Escalante APRN.[facility]AZA[facility]06-08-[facility] History of Present illness Narrative* Kirstin Escalante APRN.CNP - 08/11/2021 9:34 PM EDT Allan Lara is a 71 year old male seen today for f/u on chronic conditions.Awaiitng vy. Denies pain. Med compliant . VSSAF. Denies SOB or CP. No n/v . NAD. OT. Concern(s) today include: DM 2/ hld His medications were reviewed today and his list is now up to date. He is compliant on taking his medications :Yes He is tolerating his medication(s) without side effects: Yes REVIEW OF SYSTEMS 10 Points review of system negative apart from HPI. PAST MEDICAL HISTORY Diagnosis Date Bipolar 1 disorder (HCC) Depression DM II (diabetes mellitus, type II), controlled (HCC) Hypertension Hypothyroidism Schizophrenia, schizo-affective (HCC) Vitamin B12 deficiency PAST SURGICAL HISTORY Procedure Laterality Date APPENDECTOMY HX COLONOSCOPY 09/05/2017 repeat in [address] Prakash EGD 09/05/2017 [facility], repeat in [address] Prakash FAMILY HISTORY Problem Relation Age of Onset Cancer Mother , lung and bone cancer Alzheimer's Disease Father GI Brother PUD Social History Tobacco Use Smoking status: Never Smoker Smokeless tobacco: Never Used Substance Use Topics Alcohol use: Yes Comment: no use in 27 yearas Drug use: Yes Comment: remote: diet pills ACTIVE PROBLEM LIST Slow Transit Constipation Fracture of Metacarpal Bone Essential Hypertension Hypothyroidism ALLERGIES Allergen Reactions Cortisone Rash Vitals and Medications reviewed in [facility] system. PHYSICAL EXAMINATION: General appearance: Well appearing, alert, in no acute distress, well nourished. Neck: thyroid symmetric, normal size, no bruits Lungs: Lungs clear to auscultation. No wheezing, rhonchi, rales Heart: Normal rate and rhythm, without murmur, gallop, or rubs. Abdomen: Normal abdominal exam, Abdomen soft, non-tender. Bowel sounds normal. No masses Extremities: No edema or deformity Good capillary refill. Musculoskeletal: No joint swelling, deformity, or tenderness Peripheral pulses: Normal Neuro: no focal deficit. ASSESSMENT/PLAN: 1. Stage 3 chronic kidney disease, unspecified whether stage 3a or 3b CKD (HCC) - ICD9: 585.3, ICD10: N18.30 (primary diagnosis) Monitor bmp avoid nephrotoxic meds 2. Renal Mass F/u with urology as scheduled Kirstin Escalante APRN.CNP documented in this encounterMer[facility]05-25-2022 NoteHNO ID: [id number] Author: Kirstin Escalante APRN.CNP Service: ? Author Type: Nurse Practitioner Type: Progress Notes Filed: 07/28/2021 1:37 PM Note Text: Allan Lara is a 71 year old male seen today for skilled visit. Labs reviewed. A1C 6.3. Denies n/v or abd pain.BS controlled, Med compliant . VSSAF. Denies SOB or CP. NAD. OT. Concern(s) today include:Dm2 /Constipation His medications were reviewed today and his list is now up to date. He is compliant on taking his medications :Yes He is tolerating his medication(s) without side effects: Yes REVIEW OF SYSTEMS 10 Points review of system negative apart from HPI. PAST MEDICAL HISTORY Diagnosis Date - Bipolar 1 disorder (HCC) - Depression - DM II (diabetes mellitus, type II), controlled (HCC) - Hypertension - Hypothyroidism - Schizophrenia, schizo-affective (HCC) - Vitamin B12 deficiency PAST SURGICAL HISTORY Procedure Laterality Date - APPENDECTOMY HX - COLONOSCOPY 09/05/2017 repeat in [address] Prakash - EGD 09/05/2017 [facility]'s, repeat in [address] Prakahs FAMILY HISTORY Problem Relation Age of Onset - Cancer Mother , lung and bone cancer - Alzheimer's Disease Father - GI Brother PUD Social History Tobacco Use - Smoking status: Never Smoker - Smokeless tobacco: Never Used Substance Use Topics - Alcohol use: Yes Comment: no use in 27 yearas - Drug use: Yes Comment: remote: diet pills ACTIVE PROBLEM LIST Slow Transit Constipation Fracture of Metacarpal Bone Essential Hypertension Hypothyroidism ALLERGIES Allergen Reactions - Cortisone Rash Vitals and Medications reviewed in [facility] system. PHYSICAL EXAMINATION: General appearance: Well appearing, alert, in no acute distress, well nourished. Neck: thyroid symmetric, normal size, no bruits Lungs: Lungs clear to auscultation. No wheezing, rhonchi, rales Heart: Normal rate and rhythm, without murmur, gallop, or rubs. Abdomen: Normal abdominal exam, Abdomen soft, non-tender. Bowel sounds normal. No masses Extremities: No edema or deformity Good capillary refill. Musculoskeletal: No joint swelling, deformity, or tenderness Peripheral pulses: Normal Neuro: no focal deficit. ASSESSMENT/PLAN: 1. DM2 Stable on current regimen A1C 6.3 2. Constipation Stable on current regimen Kirstin Escalante APRN.CNPAultman Orrville [facility] History of Present illness Narrative* Kirstin Escalante APRN.CNP - 07/28/2021 1:36 PM EDT Allan Lara is a 71 year old male seen today for skilled visit. Labs reviewed. A1C 6.3. Denies n/v or abd pain.BS controlled, Med compliant . VSSAF. Denies SOB or CP. NAD. OT. Concern(s) today include:Dm2 /Constipation His medications were reviewed today and his list is now up to date. He is compliant on taking his medications :Yes He is tolerating his medication(s) without side effects: Yes REVIEW OF SYSTEMS 10 Points review of system negative apart from HPI. PAST MEDICAL HISTORY Diagnosis Date Bipolar 1 disorder (HCC) Depression DM II (diabetes mellitus, type II), controlled (HCC) Hypertension Hypothyroidism Schizophrenia, schizo-affective (HCC) Vitamin B12 deficiency PAST SURGICAL HISTORY Procedure Laterality Date APPENDECTOMY HX COLONOSCOPY 09/05/2017 repeat in [address] Prakash EGD 09/05/2017 Loren[facility], repeat in [address] Prakash FAMILY HISTORY Problem Relation Age of Onset Cancer Mother , lung and bone cancer Alzheimer's Disease Father GI Brother PUD Social History Tobacco Use Smoking status: Never Smoker Smokeless tobacco: Never Used Substance Use Topics Alcohol use: Yes Comment: no use in 27 yearas Drug use: Yes Comment: remote: diet pills ACTIVE PROBLEM LIST Slow Transit Constipation Fracture of Metacarpal Bone Essential Hypertension Hypothyroidism ALLERGIES Allergen Reactions Cortisone Rash Vitals and Medications reviewed in PCC system. PHYSICAL EXAMINATION: General appearance: Well appearing, alert, in no acute distress, well nourished. Neck: thyroid symmetric, normal size, no bruits Lungs: Lungs clear to auscultation. No wheezing, rhonchi, rales Heart: Normal rate and rhythm, without murmur, gallop, or rubs. Abdomen: Normal abdominal exam, Abdomen soft, non-tender. Bowel sounds normal. No masses Extremities: No edema or deformity Good capillary refill. Musculoskeletal: No joint swelling, deformity, or tenderness Peripheral pulses: Normal Neuro: no focal deficit. ASSESSMENT/PLAN: 1. DM2 Stable on current regimen A1C 6.3 2. Constipation Stable on current regimen Kirstin Escalante APRN.CNP documented [facility] NoteHNO ID: [id number] Author: Kirstin Escalante APRN.CNP Service: ? Author Type: Nurse Practitioner Type: Progress Notes Filed: 07/25/2021 7:50 PM Note Text: Allan Lara is a 71 year old male seen today Per nursing request. Reports patient has had rhinorrhea x1 days. Vital signs stable afebrile no cough negative Covid swab thus far. denies n/v or abd ashlie . Denies SOB or CP. NAD. OT. Concern(s) today include: HTN/rhinorrhea His medications were reviewed today and his list is now up to date. He is compliant on taking his medications :Yes He is tolerating his medication(s) without side effects: Yes REVIEW OF SYSTEMS 10 Points review of system negative apart from HPI. PAST MEDICAL HISTORY Diagnosis Date - Bipolar 1 disorder (HCC) - Depression - DM II (diabetes mellitus, type II), controlled (HCC) - Hypertension - Hypothyroidism - Schizophrenia, schizo-affective (HCC) - Vitamin B12 deficiency PAST SURGICAL HISTORY Procedure Laterality Date - APPENDECTOMY HX - COLONOSCOPY 09/05/2017 repeat in [address] Prakash - EGD 09/05/2017 [facility], repeat in [address] Prakash FAMILY HISTORY Problem Relation Age of Onset - Cancer Mother , lung and bone cancer - Alzheimer's Disease Father - GI Brother PUD Social History Tobacco Use - Smoking status: Never Smoker - Smokeless tobacco: Never Used Substance Use Topics - Alcohol use: Yes Comment: no use in 27 yearas - Drug use: Yes Comment: remote: diet pills ACTIVE PROBLEM LIST Slow Transit Constipation Fracture of Metacarpal Bone Essential Hypertension Hypothyroidism ALLERGIES Allergen Reactions - Cortisone Rash Vitals and Medications reviewed in PCC system. PHYSICAL EXAMINATION: General appearance: Well appearing, alert, in no acute distress, well nourished. Neck: thyroid symmetric, normal size, no bruits Lungs: Lungs clear to auscultation. No wheezing, rhonchi, rales Heart: Normal rate and rhythm, without murmur, gallop, or rubs. Abdomen: Normal abdominal exam, Abdomen soft, non-tender. Bowel sounds normal. No masses Extremities: No edema or deformity Good capillary refill. Musculoskeletal: No joint swelling, deformity, or tenderness Peripheral pulses: Normal Neuro: no focal deficit. ASSESSMENT/PLAN: 1. Essential hypertension - ICD9: 401.9, ICD10: I10 (primary diagnosis) - good control - Recommended regular aerobic exercise. - Goal of BP <130/80 2. Rhinorrhea -Claritin 10 mg daily Negative Covid swab summergarret, HAT FORMER.[facility]05-19-2022 History of Present illness Narrative* Kirstin Escalante APRN.GROUP ACCOUNT DIRECTOR - 07/22/2021 7:48 PM EDT Allan Lara is a 71 year old male seen today Per nursing request. Reports patient has had rhinorrhea x1 days. Vital signs stable afebrile no cough negative Covid swab thus far. denies n/v or abd ashlie . Denies SOB or CP. NAD. OT. Concern(s) today include: HTN/rhinorrhea His medications were reviewed today and his list is now up to date. He is compliant on taking his medications :Yes He is tolerating his medication(s) without side effects: Yes REVIEW OF SYSTEMS 10 Points review of system negative apart from HPI. PAST MEDICAL HISTORY Diagnosis Date Bipolar 1 disorder (HCC) Depression DM II (diabetes mellitus, type II), controlled (HCC) Hypertension Hypothyroidism Schizophrenia, schizo-affective (HCC) Vitamin B12 deficiency PAST SURGICAL HISTORY Procedure Laterality Date APPENDECTOMY HX COLONOSCOPY 09/05/2017 repeat in [address] Prakash EGD 09/05/2017 [facility], repeat in [address] Prakash FAMILY HISTORY Problem Relation Age of Onset Cancer Mother , lung and bone cancer Alzheimer's Disease Father GI Brother PUD Social History Tobacco Use Smoking status: Never Smoker Smokeless tobacco: Never Used Substance Use Topics Alcohol use: Yes Comment: no use in 27 yearas Drug use: Yes Comment: remote: diet pills ACTIVE PROBLEM LIST Slow Transit Constipation Fracture of Metacarpal Bone Essential Hypertension Hypothyroidism ALLERGIES Allergen Reactions Cortisone Rash Vitals and Medications reviewed in [facility] system. PHYSICAL EXAMINATION: General appearance: Well appearing, alert, in no acute distress, well nourished. Neck: thyroid symmetric, normal size, no bruits Lungs: Lungs clear to auscultation. No wheezing, rhonchi, rales Heart: Normal rate and rhythm, without murmur, gallop, or rubs. Abdomen: Normal abdominal exam, Abdomen soft, non-tender. Bowel sounds normal. No masses Extremities: No edema or deformity Good capillary refill. Musculoskeletal: No joint swelling, deformity, or tenderness Peripheral pulses: Normal Neuro: no focal deficit. ASSESSMENT/PLAN: 1. Essential hypertension - ICD9: 401.9, ICD10: I10 (primary diagnosis) - good control - Recommended regular aerobic exercise. - Goal of BP <130/80 2. Rhinorrhea -Claritin 10 mg daily Negative Covid swab Kirstin Escalante APRN.CNP documented in this [facility]-2022 NoteHNO ID: [id number] Author: Kirstin Escalante APRN.CNP Service: ? Author Type: Nurse Practitioner Type: Progress Notes Filed: 07/25/2021 9:50 PM Note Text: Allan Lara is a 70 year old male seen today for skilled visit. Denies n/v or abd pain.BS controlled, Med compliant . VSSAF. Denies SOB or CP. NAD. OT. Concern(s) today include:Dm2 /CKD His medications were reviewed today and his list is now up to date. He is compliant on taking his medications :Yes He is tolerating his medication(s) without side effects: Yes REVIEW OF SYSTEMS 10 Points review of system negative apart from HPI. PAST MEDICAL HISTORY Diagnosis Date - Bipolar 1 disorder (HCC) - Depression - DM II (diabetes mellitus, type II), controlled ([facility]) - Hypertension - Hypothyroidism - Schizophrenia, schizo-affective (HCC) - Vitamin B12 deficiency PAST SURGICAL HISTORY Procedure Laterality Date - APPENDECTOMY HX - COLONOSCOPY 09/05/2017 repeat in [address] Prakash - EGD 09/05/2017 [facility], repeat in [address] Prakash FAMILY HISTORY Problem Relation Age of Onset - Cancer Mother , lung and bone cancer - Alzheimer's Disease Father - GI Brother PUD Social History Tobacco Use - Smoking status: Never Smoker - Smokeless tobacco: Never Used Substance Use Topics - Alcohol use: Yes Comment: no use in 27 yearas - Drug use: Yes Comment: remote: diet pills ACTIVE PROBLEM LIST Slow Transit Constipation Fracture of Metacarpal Bone Essential Hypertension Hypothyroidism ALLERGIES Allergen Reactions - Cortisone Rash Vitals and Medications reviewed in [facility] system. PHYSICAL EXAMINATION: General appearance: Well appearing, alert, in no acute distress, well nourished. Neck: thyroid symmetric, normal size, no bruits Lungs: Lungs clear to auscultation. No wheezing, rhonchi, rales Heart: Normal rate and rhythm, without murmur, gallop, or rubs. Abdomen: Normal abdominal exam, Abdomen soft, non-tender. Bowel sounds normal. No masses Extremities: No edema or deformity Good capillary refill. Musculoskeletal: No joint swelling, deformity, or tenderness Peripheral pulses: Normal Neuro: no focal deficit. ASSESSMENT/PLAN: 1. DM2 Stable on current regimen 2. CKD 3 Bmp avoid nephrotoxic meds Kirstin Escalante APRN.CNPAult[facility]04-21-2022 NoteHNO ID: [id number] Author: Kirstin Escalante APRN.GROUP ACCOUNT DIRECTOR Service: ? Author Type: Nurse Practitioner Type: Progress Notes Filed: 07/09/2021 2:37 PM Note Text: Allan Lara is a 70 year old male seen today Per nursing request. Reports patient has had rhinorrhea x2 days. Vital signs stable afebrile no cough negative Denies n/v or abd pain. Denies SOB or CP. NAD. OT. Concern(s) today include: HTN/rhinorrhea His medications were reviewed today and his list is now up to date. He is compliant on taking his medications :Yes He is tolerating his medication(s) without side effects: Yes REVIEW OF SYSTEMS 10 Points review of system negative apart from HPI. PAST MEDICAL HISTORY Diagnosis Date - Bipolar 1 disorder (HCC) - Depression - DM II (diabetes mellitus, type II), controlled (HCC) - Hypertension - Hypothyroidism - Schizophrenia, schizo-affective (HCC) - Vitamin B12 deficiency PAST SURGICAL HISTORY Procedure Laterality Date - APPENDECTOMY HX - COLONOSCOPY 09/05/2017 repeat in [address] Prakash - EGD 09/05/2017 [facility], repeat in [address] Prakash FAMILY HISTORY Problem Relation Age of Onset - Cancer Mother , lung and bone cancer - Alzheimer's Disease Father - GI Brother PUD Social History Tobacco Use - Smoking status: Never Smoker - Smokeless tobacco: Never Used Substance Use Topics - Alcohol use: Yes Comment: no use in 27 yearas - Drug use: Yes Comment: remote: diet pills ACTIVE PROBLEM LIST Slow Transit Constipation Fracture of Metacarpal Bone Essential Hypertension Hypothyroidism ALLERGIES Allergen Reactions - Cortisone Rash Vitals and Medications reviewed in [facility] system. PHYSICAL EXAMINATION: General appearance: Well appearing, alert, in no acute distress, well nourished. Neck: thyroid symmetric, normal size, no bruits Lungs: Lungs clear to auscultation. No wheezing, rhonchi, rales Heart: Normal rate and rhythm, without murmur, gallop, or rubs. Abdomen: Normal abdominal exam, Abdomen soft, non-tender. Bowel sounds normal. No masses Extremities: No edema or deformity Good capillary refill. Musculoskeletal: No joint swelling, deformity, or tenderness Peripheral pulses: Normal Neuro: no focal deficit. ASSESSMENT/PLAN: 1. Essential hypertension - ICD9: 401.9, ICD10: I10 (primary diagnosis) - good control - Recommended regular aerobic exercise. - Goal of BP <130/80 2. Rhinorrhea -Claritin 10 mg daily summer, HAT FORMER.[facility]PA[facility]04-21-[facility] History of Present illness Narrative* summer.GROUP ACCOUNT DIRECTOR - 06/24/2021 2:33 PM EDT Allan Lara is a 70 year old male seen today Per nursing request. Reports patient has had rhinorrhea x2 days. Vital signs stable afebrile no cough negative Denies n/v or abd pain. Denies SOB or CP. NAD. OT. Concern(s) today include: HTN/rhinorrhea His medications were reviewed today and his list is now up to date. He is compliant on taking his medications :Yes He is tolerating his medication(s) without side effects: Yes REVIEW OF SYSTEMS 10 Points review of system negative apart from HPI. PAST MEDICAL HISTORY Diagnosis Date Bipolar 1 disorder (HCC) Depression DM II (diabetes mellitus, type II), controlled (HCC) Hypertension Hypothyroidism Schizophrenia, schizo-affective (HCC) Vitamin B12 deficiency PAST SURGICAL HISTORY Procedure Laterality Date APPENDECTOMY HX COLONOSCOPY 09/05/2017 repeat in [address] Prakash EGD 09/05/2017 [facility]'s, repeat in [address] Prakash FAMILY HISTORY Problem Relation Age of Onset Cancer Mother , lung and bone cancer Alzheimer's Disease Father GI Brother PUD Social History Tobacco Use Smoking status: Never Smoker Smokeless tobacco: Never Used Substance Use Topics Alcohol use: Yes Comment: no use in 27 yearas Drug use: Yes Comment: remote: diet pills ACTIVE PROBLEM LIST Slow Transit Constipation Fracture of Metacarpal Bone Essential Hypertension Hypothyroidism ALLERGIES Allergen Reactions Cortisone Rash Vitals and Medications reviewed in [facility] system. PHYSICAL EXAMINATION: General appearance: Well appearing, alert, in no acute distress, well nourished. Neck: thyroid symmetric, normal size, no bruits Lungs: Lungs clear to auscultation. No wheezing, rhonchi, rales Heart: Normal rate and rhythm, without murmur, gallop, or rubs. Abdomen: Normal abdominal exam, Abdomen soft, non-tender. Bowel sounds normal. No masses Extremities: No edema or deformity Good capillary refill. Musculoskeletal: No joint swelling, deformity, or tenderness Peripheral pulses: Normal Neuro: no focal deficit. ASSESSMENT/PLAN: 1. Essential hypertension - ICD9: 401.9, ICD10: I10 (primary diagnosis) - good control - Recommended regular aerobic exercise. - Goal of BP <130/80 2. Rhinorrhea -Claritin 10 mg daily Kirstin Escalante APRN.GROUP ACCOUNT DIRECTOR documented in [facility] encounter[facility]04-18-2022 NoteHNO ID: [id number] Author: Kirstin Escalante APRN.CNP Service: ? Author Type: Nurse Practitioner Type: Progress Notes Filed: 07/02/2021 10:05 AM Note Text: Allan Lara is a 70 year old male seen todayfor skilled visit. Denies pain. Med compliant . Denies SOB or CP. No n/v . NAD. Scheduled f/u with urology for renal mass. Concern(s) today include: Renal mass His medications were reviewed today and his list is now up to date. He is compliant on taking his medications :Yes He is tolerating his medication(s) without side effects: Yes REVIEW OF SYSTEMS 10 Points review of system negative apart from HPI. PAST MEDICAL HISTORY Diagnosis Date - Bipolar 1 disorder (HCC) - Depression - DM II (diabetes mellitus, type II), controlled (HCC) - Hypertension - Hypothyroidism - Schizophrenia, schizo-affective (HCC) - Vitamin B12 deficiency PAST SURGICAL HISTORY Procedure Laterality Date - APPENDECTOMY HX - COLONOSCOPY 09/05/2017 repeat in [address] Prakash - EGD 09/05/2017 [facility]'s, repeat in [address] Prakash FAMILY HISTORY Problem Relation Age of Onset - Cancer Mother , lung and bone cancer - Alzheimer's Disease Father - GI Brother PUD Social History Tobacco Use - Smoking status: Never Smoker - Smokeless tobacco: Never Used Substance Use Topics - Alcohol use: Yes Comment: no use in 27 yearas - Drug use: Yes Comment: remote: diet pills ACTIVE PROBLEM LIST Slow Transit Constipation Fracture of Metacarpal Bone Essential Hypertension Hypothyroidism ALLERGIES Allergen Reactions - Cortisone Rash Vitals and Medications reviewed in [facility] system. PHYSICAL EXAMINATION: General appearance: Well appearing, alert, in no acute distress, well nourished. Neck: thyroid symmetric, normal size, no bruits Lungs: Lungs clear to auscultation. No wheezing, rhonchi, rales Heart: Normal rate and rhythm, without murmur, gallop, or rubs. Abdomen: Normal abdominal exam, Abdomen soft, non-tender. Bowel sounds normal. No masses Extremities: Rt hand swelling Good capillary refill. Musculoskeletal: No joint swelling, deformity, or tenderness Peripheral pulses: Normal Neuro: no focal deficit. ASSESSMENT/PLAN: 1. Renal mass - ICD9: 593.9, ICD10: N28.89 (primary diagnosis) -found on CT incidentally during ED visit -f/u with nephrology 2. Generalized weakness -PT/OT Kirstin Escalante APRN.[facility]AZA[facility]04-18-2022 History of Present illness Narrative* Kirstin Escalante APRN.GROUP ACCOUNT DIRECTOR - 06/21/2021 10:03 AM EDT Allan Lara is a 70 year old male seen todayfor skilled visit. Denies pain. Med compliant . Denies SOB or CP. No n/v . NAD. Scheduled f/u with urology for renal mass. Concern(s) today include: Renal mass His medications were reviewed today and his list is now up to date. He is compliant on taking his medications :Yes He is tolerating his medication(s) without side effects: Yes REVIEW OF SYSTEMS 10 Points review of system negative apart from HPI. PAST MEDICAL HISTORY Diagnosis Date Bipolar 1 disorder (HCC) Depression DM II (diabetes mellitus, type II), controlled (HCC) Hypertension Hypothyroidism Schizophrenia, schizo-affective (HCC) Vitamin B12 deficiency PAST SURGICAL HISTORY Procedure Laterality Date APPENDECTOMY HX COLONOSCOPY 09/05/2017 repeat in [address] Prakash EGD 09/05/2017 [facility]ana's, repeat in [address] Prakash FAMILY HISTORY Problem Relation Age of Onset Cancer Mother , lung and bone cancer Alzheimer's Disease Father GI Brother PUD Social History Tobacco Use Smoking status: Never Smoker Smokeless tobacco: Never Used Substance Use Topics Alcohol use: Yes Comment: no use in 27 yearas Drug use: Yes Comment: remote: diet pills ACTIVE PROBLEM LIST Slow Transit Constipation Fracture of Metacarpal Bone Essential Hypertension Hypothyroidism ALLERGIES Allergen Reactions Cortisone Rash Vitals and Medications reviewed in [facility] system. PHYSICAL EXAMINATION: General appearance: Well appearing, alert, in no acute distress, well nourished. Neck: thyroid symmetric, normal size, no bruits Lungs: Lungs clear to auscultation. No wheezing, rhonchi, rales Heart: Normal rate and rhythm, without murmur, gallop, or rubs. Abdomen: Normal abdominal exam, Abdomen soft, non-tender. Bowel sounds normal. No masses Extremities: Rt hand swelling Good capillary refill. Musculoskeletal: No joint swelling, deformity, or tenderness Peripheral pulses: Normal Neuro: no focal deficit. ASSESSMENT/PLAN: 1. Renal mass - ICD9: 593.9, ICD10: N28.89 (primary diagnosis) -found on CT incidentally during ED visit -f/u with nephrology 2. Generalized weakness -PT/OT Kirstin Escalante APRN.GROUP ACCOUNT DIRECTOR documented in [facility] encounter[facility]04-14-2022 NoteHNO ID: [id number] Author: Kirstin Escalante APRN.GROUP ACCOUNT DIRECTOR Service: ? Author Type: Nurse Practitioner Type: Progress Notes Filed: 06/27/2021 11:38 PM Note Text: Allan Lara is a 70 year old male seen today for skilled visit. Denies pain. Med compliant . VSSAF. Denies SOB or CP. No n/v . NAD. OT. Concern(s) today include: DM 2/ hld His medications were reviewed today and his list is now up to date. He is compliant on taking his medications :Yes He is tolerating his medication(s) without side effects: Yes REVIEW OF SYSTEMS 10 Points review of system negative apart from HPI. PAST MEDICAL HISTORY Diagnosis Date - Bipolar 1 disorder (HCC) - Depression - DM II (diabetes mellitus, type II), controlled (HCC) - Hypertension - Hypothyroidism - Schizophrenia, schizo-affective (HCC) - Vitamin B12 deficiency PAST SURGICAL HISTORY Procedure Laterality Date - APPENDECTOMY HX - COLONOSCOPY 09/05/2017 repeat in [address] Prakash - EGD 09/05/2017 Loren[facility]ana's, repeat in [address] Prakash FAMILY HISTORY Problem Relation Age of Onset - Cancer Mother , lung and bone cancer - Alzheimer's Disease Father - GI Brother PUD Social History Tobacco Use - Smoking status: Never Smoker - Smokeless tobacco: Never Used Substance Use Topics - Alcohol use: Yes Comment: no use in 27 yearas - Drug use: Yes Comment: remote: diet pills ACTIVE PROBLEM LIST Slow Transit Constipation Fracture of Metacarpal Bone Essential Hypertension Hypothyroidism ALLERGIES Allergen Reactions - Cortisone Rash Vitals and Medications reviewed in [facility] system. PHYSICAL EXAMINATION: General appearance: Well appearing, alert, in no acute distress, well nourished. Neck: thyroid symmetric, normal size, no bruits Lungs: Lungs clear to auscultation. No wheezing, rhonchi, rales Heart: Normal rate and rhythm, without murmur, gallop, or rubs. Abdomen: Normal abdominal exam, Abdomen soft, non-tender. Bowel sounds normal. No masses Extremities: No edema or deformity Good capillary refill. Musculoskeletal: No joint swelling, deformity, or tenderness Peripheral pulses: Normal Neuro: no focal deficit. ASSESSMENT/PLAN: 1. Stage 3 chronic kidney disease, unspecified whether stage 3a or 3b CKD (HCC) - ICD9: 585.3, ICD10: N18.30 (primary diagnosis) Monitor bmp avoid nephrotoxic meds 2. Constipation, unspecified constipation type - ICD9: 564.00, ICD10: K59.00 Stable on current regimen Kirstin Escalante APRN.CNPAult[facility]04-13-2022 History of Present illness Narrative* Kirstin Escalante APRN.CNP - 06/16/2021 11:36 PM EDT Allan Lara is a 70 year old male seen today for skilled visit. Denies pain. Med compliant . VSSAF. Denies SOB or CP. No n/v . NAD. OT. Concern(s) today include: DM 2/ hld His medications were reviewed today and his list is now up to date. He is compliant on taking his medications :Yes He is tolerating his medication(s) without side effects: Yes REVIEW OF SYSTEMS 10 Points review of system negative apart from HPI. PAST MEDICAL HISTORY Diagnosis Date Bipolar 1 disorder (HCC) Depression DM II (diabetes mellitus, type II), controlled (HCC) Hypertension Hypothyroidism Schizophrenia, schizo-affective (HCC) Vitamin B12 deficiency PAST SURGICAL HISTORY Procedure Laterality Date APPENDECTOMY HX COLONOSCOPY 09/05/2017 repeat in [address] Prakash EGD 09/05/2017 Lorenzana's, repeat in [address] Prakash FAMILY HISTORY Problem Relation Age of Onset Cancer Mother , lung and bone cancer Alzheimer's Disease Father GI Brother PUD Social History Tobacco Use Smoking status: Never Smoker Smokeless tobacco: Never Used Substance Use Topics Alcohol use: Yes Comment: no use in 27 yearas Drug use: Yes Comment: remote: diet pills ACTIVE PROBLEM LIST Slow Transit Constipation Fracture of Metacarpal Bone Essential Hypertension Hypothyroidism ALLERGIES Allergen Reactions Cortisone Rash Vitals and Medications reviewed in [facility] system. PHYSICAL EXAMINATION: General appearance: Well appearing, alert, in no acute distress, well nourished. Neck: thyroid symmetric, normal size, no bruits Lungs: Lungs clear to auscultation. No wheezing, rhonchi, rales Heart: Normal rate and rhythm, without murmur, gallop, or rubs. Abdomen: Normal abdominal exam, Abdomen soft, non-tender. Bowel sounds normal. No masses Extremities: No edema or deformity Good capillary refill. Musculoskeletal: No joint swelling, deformity, or tenderness Peripheral pulses: Normal Neuro: no focal deficit. ASSESSMENT/PLAN: 1. Stage 3 chronic kidney disease, unspecified whether stage 3a or 3b CKD (HCC) - ICD9: 585.3, ICD10: N18.30 (primary diagnosis) Monitor bmp avoid nephrotoxic meds 2. Constipation, unspecified constipation type - ICD9: 564.00, ICD10: K59.00 Stable on current regimen Kirstin Escalante APRN.CNP documented in this encounterMer[facility]04-08-2022 NoteHNO ID: [id number] Author: Kirstin Escalante APRN.CNP Service: ? Author Type: Nurse Practitioner Type: Progress Notes Filed: 06/24/2021 3:58 PM Note Text: Allan Lara is a 70 year old male seen today for skilled visit. Denies pain. Med compliant . VSSAF. Denies SOB or CP. No n/v . NAD. OT. Concern(s) today include: DM 2/ hld His medications were reviewed today and his list is now up to date. He is compliant on taking his medications :Yes He is tolerating his medication(s) without side effects: Yes REVIEW OF SYSTEMS 10 Points review of system negative apart from HPI. PAST MEDICAL HISTORY Diagnosis Date - Bipolar 1 disorder (HCC) - Depression - DM II (diabetes mellitus, type II), controlled (HCC) - Hypertension - Hypothyroidism - Schizophrenia, schizo-affective (HCC) - Vitamin B12 deficiency PAST SURGICAL HISTORY Procedure Laterality Date - APPENDECTOMY HX - COLONOSCOPY 09/05/2017 repeat in [address] Prakash - EGD 09/05/2017 [facility], repeat in [address] Prakash FAMILY HISTORY Problem Relation Age of Onset - Cancer Mother , lung and bone cancer - Alzheimer's Disease Father - GI Brother PUD Social History Tobacco Use - Smoking status: Never Smoker - Smokeless tobacco: Never Used Substance Use Topics - Alcohol use: Yes Comment: no use in 27 yearas - Drug use: Yes Comment: remote: diet pills ACTIVE PROBLEM LIST Slow Transit Constipation Fracture of Metacarpal Bone Essential Hypertension Hypothyroidism ALLERGIES Allergen Reactions - Cortisone Rash Vitals and Medications reviewed in PCC system. PHYSICAL EXAMINATION: General appearance: Well appearing, alert, in no acute distress, well nourished. Neck: thyroid symmetric, normal size, no bruits Lungs: Lungs clear to auscultation. No wheezing, rhonchi, rales Heart: Normal rate and rhythm, without murmur, gallop, or rubs. Abdomen: Normal abdominal exam, Abdomen soft, non-tender. Bowel sounds normal. No masses Extremities: No edema or deformity Good capillary refill. Musculoskeletal: No joint swelling, deformity, or tenderness Peripheral pulses: Normal Neuro: no focal deficit. ASSESSMENT/PLAN: 1.DM 2 -metformin 1000mg bid 2. HTN Controlled Kirstin Escalante APRN.[facility] NoteHNO ID: [id number] Author: Kirstin Escalante APRN.GROUP ACCOUNT DIRECTOR Service: ? Author Type: Nurse Practitioner Type: Progress Notes Filed: 06/18/2021 9:20 AM Note Text: Allan Lara is a 70 year old male seen today for skilled visit . VSSAF. Denies SOB or CP. Carolann po. Denies constipation. Wt stable No behaviors reported. Med compliant NAD. Concern(s) today include: Hypothyroidism His medications were reviewed today and his list is now up to date. He is compliant on taking his medications :Yes He is tolerating his medication(s) without side effects: Yes REVIEW OF SYSTEMS 10 Points review of system negative apart from HPI. PAST MEDICAL HISTORY Diagnosis Date - Bipolar 1 disorder (HCC) - Depression - DM II (diabetes mellitus, type II), controlled (HCC) - Hypertension - Hypothyroidism - Schizophrenia, schizo-affective (HCC) - Vitamin B12 deficiency PAST SURGICAL HISTORY Procedure Laterality Date - APPENDECTOMY HX - COLONOSCOPY 09/05/2017 repeat in [address] Prakash - EGD 09/05/2017 [facility], repeat in [address] Prakash FAMILY HISTORY Problem Relation Age of Onset - Cancer Mother , lung and bone cancer - Alzheimer's Disease Father - GI Brother PUD Social History Tobacco Use - Smoking status: Never Smoker - Smokeless tobacco: Never Used Substance Use Topics - Alcohol use: Yes Comment: no use in 27 yearas - Drug use: Yes Comment: remote: diet pills ACTIVE PROBLEM LIST Slow Transit Constipation Fracture of Metacarpal Bone Essential Hypertension Hypothyroidism ALLERGIES Allergen Reactions - Cortisone Rash Vitals and Medications reviewed in PCC system. PHYSICAL EXAMINATION: General appearance: Well appearing, alert, in no acute distress, well nourished. Neck: thyroid symmetric, normal size, no bruits Lungs: Lungs clear to auscultation. No wheezing, rhonchi, rales Heart: Normal rate and rhythm, without murmur, gallop, or rubs. Abdomen: Normal abdominal exam, Abdomen soft, non-tender. Bowel sounds normal. No masses Extremities: Rt hand swelling Good capillary refill. Musculoskeletal: No joint swelling, deformity, or tenderness Peripheral pulses: Normal Neuro: no focal deficit. ASSESSMENT/PLAN: 1. Hypothyroidism, unspecified type - ICD9: 244.9, ICD10: E03.9 (primary diagnosis) -continue synthroid dise -monitor thyroid panel 2.Schizoaffective disorder -stable on current meds -psych following Summer TABATHA Escalante.[facility]04-01-2022 History of Present illness Narrative* summer.GROUP ACCOUNT DIRECTOR - 06/04/2021 9:19 AM EDT Allan Lara is a 70 year old male seen today for skilled visit . VSSAF. Denies SOB or CP. Carolann po. Denies constipation. Wt stable No behaviors reported. Med compliant NAD. Concern(s) today include: Hypothyroidism His medications were reviewed today and his list is now up to date. He is compliant on taking his medications :Yes He is tolerating his medication(s) without side effects: Yes REVIEW OF SYSTEMS 10 Points review of system negative apart from HPI. PAST MEDICAL HISTORY Diagnosis Date Bipolar 1 disorder (HCC) Depression DM II (diabetes mellitus, type II), controlled (HCC) Hypertension Hypothyroidism Schizophrenia, schizo-affective (HCC) Vitamin B12 deficiency PAST SURGICAL HISTORY Procedure Laterality Date APPENDECTOMY HX COLONOSCOPY 09/05/2017 repeat in [address] Prakash EGD 09/05/2017 [facility], repeat in [address] Prakash FAMILY HISTORY Problem Relation Age of Onset Cancer Mother , lung and bone cancer Alzheimer's Disease Father GI Brother PUD Social History Tobacco Use Smoking status: Never Smoker Smokeless tobacco: Never Used Substance Use Topics Alcohol use: Yes Comment: no use in 27 yearas Drug use: Yes Comment: remote: diet pills ACTIVE PROBLEM LIST Slow Transit Constipation Fracture of Metacarpal Bone Essential Hypertension Hypothyroidism ALLERGIES Allergen Reactions Cortisone Rash Vitals and Medications reviewed in PCC system. PHYSICAL EXAMINATION: General appearance: Well appearing, alert, in no acute distress, well nourished. Neck: thyroid symmetric, normal size, no bruits Lungs: Lungs clear to auscultation. No wheezing, rhonchi, rales Heart: Normal rate and rhythm, without murmur, gallop, or rubs. Abdomen: Normal abdominal exam, Abdomen soft, non-tender. Bowel sounds normal. No masses Extremities: Rt hand swelling Good capillary refill. Musculoskeletal: No joint swelling, deformity, or tenderness Peripheral pulses: Normal Neuro: no focal deficit. ASSESSMENT/PLAN: 1. Hypothyroidism, unspecified type - ICD9: 244.9, ICD10: E03.9 (primary diagnosis) -continue synthroid dise -monitor thyroid panel 2.Schizoaffective disorder -stable on current meds -psych following Kirstin Escalante APRN.CNP documented in [facility]22 NoteHNO ID: [id number] Author: Kirstin Escalante APRN.CNP Service: ? Author Type: Nurse Practitioner Type: Progress Notes Filed: 06/16/2021 1:53 PM Note Text: Allan Lara is a 70 year old male seen today for skilled visit. Denies n/v or abd pain. Med compliant . VSSAF. Denies SOB or CP. NAD. OT. Concern(s) today include: HTN/CKD His medications were reviewed today and his list is now up to date. He is compliant on taking his medications :Yes He is tolerating his medication(s) without side effects: Yes REVIEW OF SYSTEMS 10 Points review of system negative apart from HPI. PAST MEDICAL HISTORY Diagnosis Date - Bipolar 1 disorder (HCC) - Depression - DM II (diabetes mellitus, type II), controlled (HCC) - Hypertension - Hypothyroidism - Schizophrenia, schizo-affective (HCC) - Vitamin B12 deficiency PAST SURGICAL HISTORY Procedure Laterality Date - APPENDECTOMY HX - COLONOSCOPY 09/05/2017 repeat in [address] Prakash - EGD 09/05/2017 [facility], repeat in [address] Prakash FAMILY HISTORY Problem Relation Age of Onset - Cancer Mother , lung and bone cancer - Alzheimer's Disease Father - GI Brother PUD Social History Tobacco Use - Smoking status: Never Smoker - Smokeless tobacco: Never Used Substance Use Topics - Alcohol use: Yes Comment: no use in 27 yearas - Drug use: Yes Comment: remote: diet pills ACTIVE PROBLEM LIST Slow Transit Constipation Fracture of Metacarpal Bone Essential Hypertension Hypothyroidism ALLERGIES Allergen Reactions - Cortisone Rash Vitals and Medications reviewed in PCC system. PHYSICAL EXAMINATION: General appearance: Well appearing, alert, in no acute distress, well nourished. Neck: thyroid symmetric, normal size, no bruits Lungs: Lungs clear to auscultation. No wheezing, rhonchi, rales Heart: Normal rate and rhythm, without murmur, gallop, or rubs. Abdomen: Normal abdominal exam, Abdomen soft, non-tender. Bowel sounds normal. No masses Extremities: No edema or deformity Good capillary refill. Musculoskeletal: No joint swelling, deformity, or tenderness Peripheral pulses: Normal Neuro: no focal deficit. ASSESSMENT/PLAN: 1. Essential hypertension - ICD9: 401.9, ICD10: I10 (primary diagnosis) - add daily bps 2. CKD 3 Bmp avoid nephrotoxic meds Kirstin Esclaante APRN.CNPAult[facility]03-23-2022 NoteHNO ID: [id number] Author: Kirstin Escalante APRN.GROUP ACCOUNT DIRECTOR Service: ? Author Type: Nurse Practitioner Type: Progress Notes Filed: 06/09/2021 1:06 PM Note Text: Allan Lara is a 70 year old male seen today per nursing request. 10 lb wt loss since Mar. Denies N/V or abd pain. compliant . VSSAF. Denies SOB or CP. NAD. OT. Concern(s) today include: HTN/Wt loss His medications were reviewed today and his list is now up to date. He is compliant on taking his medications :Yes He is tolerating his medication(s) without side effects: Yes REVIEW OF SYSTEMS 10 Points review of system negative apart from HPI. PAST MEDICAL HISTORY Diagnosis Date - Bipolar 1 disorder (HCC) - Depression - DM II (diabetes mellitus, type II), controlled ([facility]) - Hypertension - Hypothyroidism - Schizophrenia, schizo-affective (HCC) - Vitamin B12 deficiency PAST SURGICAL HISTORY Procedure Laterality Date - APPENDECTOMY HX - COLONOSCOPY 09/05/2017 repeat in [address] Prakash - EGD 09/05/2017 [facility], repeat in [address] Prakash FAMILY HISTORY Problem Relation Age of Onset - Cancer Mother , lung and bone cancer - Alzheimer's Disease Father - GI Brother PUD Social History Tobacco Use - Smoking status: Never Smoker - Smokeless tobacco: Never Used Substance Use Topics - Alcohol use: Yes Comment: no use in 27 yearas - Drug use: Yes Comment: remote: diet pills ACTIVE PROBLEM LIST Slow Transit Constipation Fracture of Metacarpal Bone Essential Hypertension Hypothyroidism ALLERGIES Allergen Reactions - Cortisone Rash Vitals and Medications reviewed in [facility] system. PHYSICAL EXAMINATION: General appearance: Well appearing, alert, in no acute distress, well nourished. Neck: thyroid symmetric, normal size, no bruits Lungs: Lungs clear to auscultation. No wheezing, rhonchi, rales Heart: Normal rate and rhythm, without murmur, gallop, or rubs. Abdomen: Normal abdominal exam, Abdomen soft, non-tender. Bowel sounds normal. No masses Extremities: No edema or deformity Good capillary refill. Musculoskeletal: No joint swelling, deformity, or tenderness Peripheral pulses: Normal Neuro: no focal deficit. ASSESSMENT/PLAN: 1. Essential hypertension - ICD9: 401.9, ICD10: I10 (primary diagnosis) - good control - Recommended regular aerobic exercise. - Goal of BP <130/80 2. Wt loss 10 lb loss since Mar -recent hospiralzation -monitor wts -data transcriber following Summer TABATHA Escalante.[facility]PA[facility]03-23-2022 History of Present illness Narrative* summermile HAT FORMER.GROUP ACCOUNT DIRECTOR - 05/26/2021 1:01 PM EDT Allan Lara is a 70 year old male seen today per nursing request. 10 lb wt loss since Mar. Denies N/V or abd pain. compliant . VSSAF. Denies SOB or CP. NAD. OT. Concern(s) today include: HTN/Wt loss His medications were reviewed today and his list is now up to date. He is compliant on taking his medications :Yes He is tolerating his medication(s) without side effects: Yes REVIEW OF SYSTEMS 10 Points review of system negative apart from HPI. PAST MEDICAL HISTORY Diagnosis Date Bipolar 1 disorder (HCC) Depression DM II (diabetes mellitus, type II), controlled (HCC) Hypertension Hypothyroidism Schizophrenia, schizo-affective (HCC) Vitamin B12 deficiency PAST SURGICAL HISTORY Procedure Laterality Date APPENDECTOMY HX COLONOSCOPY 09/05/2017 repeat in [address] Prakash EGD 09/05/2017 [facility], repeat in [address] Prakash FAMILY HISTORY Problem Relation Age of Onset Cancer Mother , lung and bone cancer Alzheimer's Disease Father GI Brother PUD Social History Tobacco Use Smoking status: Never Smoker Smokeless tobacco: Never Used Substance Use Topics Alcohol use: Yes Comment: no use in 27 yearas Drug use: Yes Comment: remote: diet pills ACTIVE PROBLEM LIST Slow Transit Constipation Fracture of Metacarpal Bone Essential Hypertension Hypothyroidism ALLERGIES Allergen Reactions Cortisone Rash Vitals and Medications reviewed in [facility] system. PHYSICAL EXAMINATION: General appearance: Well appearing, alert, in no acute distress, well nourished. Neck: thyroid symmetric, normal size, no bruits Lungs: Lungs clear to auscultation. No wheezing, rhonchi, rales Heart: Normal rate and rhythm, without murmur, gallop, or rubs. Abdomen: Normal abdominal exam, Abdomen soft, non-tender. Bowel sounds normal. No masses Extremities: No edema or deformity Good capillary refill. Musculoskeletal: No joint swelling, deformity, or tenderness Peripheral pulses: Normal Neuro: no focal deficit. ASSESSMENT/PLAN: 1. Essential hypertension - ICD9: 401.9, ICD10: I10 (primary diagnosis) - good control - Recommended regular aerobic exercise. - Goal of BP <130/80 2. Wt loss 10 lb loss since Mar -recent hospiralzation -monitor wts -data transcriber following Kirstin Escalante APRN.GROUP ACCOUNT DIRECTOR documented in this encounterMer[facility]03-11-2022 NoteHNO ID: [id number] Author: Kirstin Escalante APRN.CNP Service: ? Author Type: Nurse Practitioner Type: Progress Notes Filed: 05/30/2021 9:33 PM Note Text: Allan Lara is a 70 year old male seen today per nursing request. Denies pain. Med compliant . Denies SOB or CP. No n/v . NAD. Concern(s) today include: Renal mass His medications were reviewed today and his list is now up to date. He is compliant on taking his medications :Yes He is tolerating his medication(s) without side effects: Yes REVIEW OF SYSTEMS 10 Points review of system negative apart from HPI. PAST MEDICAL HISTORY Diagnosis Date - Bipolar 1 disorder (HCC) - Depression - DM II (diabetes mellitus, type II), controlled (HCC) - Hypertension - Hypothyroidism - Schizophrenia, schizo-affective (HCC) - Vitamin B12 deficiency PAST SURGICAL HISTORY Procedure Laterality Date - APPENDECTOMY HX - COLONOSCOPY 09/05/2017 repeat in [address] Prakash - EGD 09/05/2017 [facility], repeat in [address] Prakash FAMILY HISTORY Problem Relation Age of Onset - Cancer Mother , lung and bone cancer - Alzheimer's Disease Father - GI Brother PUD Social History Tobacco Use - Smoking status: Never Smoker - Smokeless tobacco: Never Used Substance Use Topics - Alcohol use: Yes Comment: no use in 27 yearas - Drug use: Yes Comment: remote: diet pills ACTIVE PROBLEM LIST Slow Transit Constipation Fracture of Metacarpal Bone Essential Hypertension Hypothyroidism ALLERGIES Allergen Reactions - Cortisone Rash Vitals and Medications reviewed in [facility] system. PHYSICAL EXAMINATION: General appearance: Well appearing, alert, in no acute distress, well nourished. Neck: thyroid symmetric, normal size, no bruits Lungs: Lungs clear to auscultation. No wheezing, rhonchi, rales Heart: Normal rate and rhythm, without murmur, gallop, or rubs. Abdomen: Normal abdominal exam, Abdomen soft, non-tender. Bowel sounds normal. No masses Extremities: Rt hand swelling Good capillary refill. Musculoskeletal: No joint swelling, deformity, or tenderness Peripheral pulses: Normal Neuro: no focal deficit. ASSESSMENT/PLAN: 1. Renal mass - ICD9: 593.9, ICD10: N28.89 (primary diagnosis) -found on CT incidentally during ED visit -f/u with nephrology 2. Generalized weakness -PT/OT Kirstin Escalante APRN.[facility]AZA[facility]03-11-2022 History of Present illness Narrative* Kirstin Escalante APRN.GROUP ACCOUNT DIRECTOR - 05/14/2021 9:31 PM EST Allan Lara is a 70 year old male seen today per nursing request. Denies pain. Med compliant . Denies SOB or CP. No n/v . NAD. Concern(s) today include: Renal mass His medications were reviewed today and his list is now up to date. He is compliant on taking his medications :Yes He is tolerating his medication(s) without side effects: Yes REVIEW OF SYSTEMS 10 Points review of system negative apart from HPI. PAST MEDICAL HISTORY Diagnosis Date Bipolar 1 disorder (HCC) Depression DM II (diabetes mellitus, type II), controlled (HCC) Hypertension Hypothyroidism Schizophrenia, schizo-affective (HCC) Vitamin B12 deficiency PAST SURGICAL HISTORY Procedure Laterality Date APPENDECTOMY HX COLONOSCOPY 09/05/2017 repeat in [address] Prakash EGD 09/05/2017 [facility], repeat in [address] Prakash FAMILY HISTORY Problem Relation Age of Onset Cancer Mother , lung and bone cancer Alzheimer's Disease Father GI Brother PUD Social History Tobacco Use Smoking status: Never Smoker Smokeless tobacco: Never Used Substance Use Topics Alcohol use: Yes Comment: no use in 27 yearas Drug use: Yes Comment: remote: diet pills ACTIVE PROBLEM LIST Slow Transit Constipation Fracture of Metacarpal Bone Essential Hypertension Hypothyroidism ALLERGIES Allergen Reactions Cortisone Rash Vitals and Medications reviewed in [facility] system. PHYSICAL EXAMINATION: General appearance: Well appearing, alert, in no acute distress, well nourished. Neck: thyroid symmetric, normal size, no bruits Lungs: Lungs clear to auscultation. No wheezing, rhonchi, rales Heart: Normal rate and rhythm, without murmur, gallop, or rubs. Abdomen: Normal abdominal exam, Abdomen soft, non-tender. Bowel sounds normal. No masses Extremities: Rt hand swelling Good capillary refill. Musculoskeletal: No joint swelling, deformity, or tenderness Peripheral pulses: Normal Neuro: no focal deficit. ASSESSMENT/PLAN: 1. Renal mass - ICD9: 593.9, ICD10: N28.89 (primary diagnosis) -found on CT incidentally during ED visit -f/u with nephrology 2. Generalized weakness -PT/OT Kirstin Escalante APRN.GROUP ACCOUNT DIRECTOR documented in this encounterMer[facility]03-10-2022 NoteHNO ID: [id number] Author: Kirstin Escalante APRN.BOAZ Service: ? Author Type: Nurse Practitioner Type: Progress Notes Filed: 05/22/2021 11:26 PM Note Text: Allan Lara is a 70 year old male seen today for skilled visit, . VSSAF. Denies SOB or CP. Carolann po. Denies constipation. Wt stable No behaviors reported. Med compliant NAD. Concern(s) today include: Hypothyroidism His medications were reviewed today and his list is now up to date. He is compliant on taking his medications :Yes He is tolerating his medication(s) without side effects: Yes REVIEW OF SYSTEMS 10 Points review of system negative apart from HPI. PAST MEDICAL HISTORY Diagnosis Date - Bipolar 1 disorder (HCC) - Depression - DM II (diabetes mellitus, type II), controlled (HCC) - Hypertension - Hypothyroidism - Schizophrenia, schizo-affective (HCC) - Vitamin B12 deficiency PAST SURGICAL HISTORY Procedure Laterality Date - APPENDECTOMY HX - COLONOSCOPY 09/05/2017 repeat in [address] Prakash - EGD 09/05/2017 [facility], repeat in [address] Prakash FAMILY HISTORY Problem Relation Age of Onset - Cancer Mother , lung and bone cancer - Alzheimer's Disease Father - GI Brother PUD Social History Tobacco Use - Smoking status: Never Smoker - Smokeless tobacco: Never Used Substance Use Topics - Alcohol use: Yes Comment: no use in 27 yearas - Drug use: Yes Comment: remote: diet pills ACTIVE PROBLEM LIST Slow Transit Constipation Fracture of Metacarpal Bone Essential Hypertension Hypothyroidism ALLERGIES Allergen Reactions - Cortisone Rash Vitals and Medications reviewed in [facility] system. PHYSICAL EXAMINATION: General appearance: Well appearing, alert, in no acute distress, well nourished. Neck: thyroid symmetric, normal size, no bruits Lungs: Lungs clear to auscultation. No wheezing, rhonchi, rales Heart: Normal rate and rhythm, without murmur, gallop, or rubs. Abdomen: Normal abdominal exam, Abdomen soft, non-tender. Bowel sounds normal. No masses Extremities: Rt hand swelling Good capillary refill. Musculoskeletal: No joint swelling, deformity, or tenderness Peripheral pulses: Normal Neuro: no focal deficit. ASSESSMENT/PLAN: 1. Hypothyroidism, unspecified type - ICD9: 244.9, ICD10: E03.9 (primary diagnosis) -continue synthroid dise -monitor thyroid panel 2.Constipation conitnue current regimen Kirstin Escalante APRN.CNPAult[facility]03-02-2022 NoteHNO ID: [id number] Author: Kirstin Escalante APRN.GROUP ACCOUNT DIRECTOR Service: ? Author Type: Nurse Practitioner Type: Progress Notes Filed: 05/19/2021 1:07 PM Note Text: Allan Lara is a 70 year old male seen today for skilled visit. Denies pain. Med compliant . VSSAF. Denies SOB or CP. No n/v . NAD. OT. Concern(s) today include: DM 2/ hld His medications were reviewed today and his list is now up to date. He is compliant on taking his medications :Yes He is tolerating his medication(s) without side effects: Yes REVIEW OF SYSTEMS 10 Points review of system negative apart from HPI. PAST MEDICAL HISTORY Diagnosis Date - Bipolar 1 disorder (HCC) - Depression - DM II (diabetes mellitus, type II), controlled (HCC) - Hypertension - Hypothyroidism - Schizophrenia, schizo-affective (HCC) - Vitamin B12 deficiency PAST SURGICAL HISTORY Procedure Laterality Date - APPENDECTOMY HX - COLONOSCOPY 09/05/2017 repeat in [address] Prakash - EGD 09/05/2017 [facility], repeat in [address] Prakash FAMILY HISTORY Problem Relation Age of Onset - Cancer Mother , lung and bone cancer - Alzheimer's Disease Father - GI Brother PUD Social History Tobacco Use - Smoking status: Never Smoker - Smokeless tobacco: Never Used Substance Use Topics - Alcohol use: Yes Comment: no use in 27 yearas - Drug use: Yes Comment: remote: diet pills ACTIVE PROBLEM LIST Slow Transit Constipation Fracture of Metacarpal Bone Essential Hypertension Hypothyroidism ALLERGIES Allergen Reactions - Cortisone Rash Vitals and Medications reviewed in [facility] system. PHYSICAL EXAMINATION: General appearance: Well appearing, alert, in no acute distress, well nourished. Neck: thyroid symmetric, normal size, no bruits Lungs: Lungs clear to auscultation. No wheezing, rhonchi, rales Heart: Normal rate and rhythm, without murmur, gallop, or rubs. Abdomen: Normal abdominal exam, Abdomen soft, non-tender. Bowel sounds normal. No masses Extremities: No edema or deformity Good capillary refill. Musculoskeletal: No joint swelling, deformity, or tenderness Peripheral pulses: Normal Neuro: no focal deficit. ASSESSMENT/PLAN: 1.DM 2 -metformin 1000mg bid 2. HTN Controlled Kirstin Escalante APRN.[facility]AZA[facility]02-28-2022 NoteHNO ID: [id number] Author: Kirstin Escalante APRN.GROUP ACCOUNT DIRECTOR Service: ? Author Type: Nurse Practitioner Type: Progress Notes Filed: 05/16/2021 10:29 AM Note Text: Allan Lara is a 70 year old male seen today for skilled visit. Denies n/v or abd pain. Med compliant . VSSAF. Denies SOB or CP. NAD. OT. Concern(s) today include: HTN/Renal mass His medications were reviewed today and his list is now up to date. He is compliant on taking his medications :Yes He is tolerating his medication(s) without side effects: Yes REVIEW OF SYSTEMS 10 Points review of system negative apart from HPI. PAST MEDICAL HISTORY Diagnosis Date - Bipolar 1 disorder (HCC) - Depression - DM II (diabetes mellitus, type II), controlled (HCC) - Hypertension - Hypothyroidism - Schizophrenia, schizo-affective (HCC) - Vitamin B12 deficiency PAST SURGICAL HISTORY Procedure Laterality Date - APPENDECTOMY HX - COLONOSCOPY 09/05/2017 repeat in [address] Prakash - EGD 09/05/2017 [facility], repeat in 3 years per Dr. Prakash FAMILY HISTORY Problem Relation Age of Onset - Cancer Mother , lung and bone cancer - Alzheimer's Disease Father - GI Brother PUD Social History Tobacco Use - Smoking status: Never Smoker - Smokeless tobacco: Never Used Substance Use Topics - Alcohol use: Yes Comment: no use in 27 yearas - Drug use: Yes Comment: remote: diet pills ACTIVE PROBLEM LIST Slow Transit Constipation Fracture of Metacarpal Bone Essential Hypertension Hypothyroidism ALLERGIES Allergen Reactions - Cortisone Rash Vitals and Medications reviewed in [facility] system. PHYSICAL EXAMINATION: General appearance: Well appearing, alert, in no acute distress, well nourished. Neck: thyroid symmetric, normal size, no bruits Lungs: Lungs clear to auscultation. No wheezing, rhonchi, rales Heart: Normal rate and rhythm, without murmur, gallop, or rubs. Abdomen: Normal abdominal exam, Abdomen soft, non-tender. Bowel sounds normal. No masses Extremities: No edema or deformity Good capillary refill. Musculoskeletal: No joint swelling, deformity, or tenderness Peripheral pulses: Normal Neuro: no focal deficit. ASSESSMENT/PLAN: 1. Essential hypertension - ICD9: 401.9, ICD10: I10 (primary diagnosis) - good control - Recommended regular aerobic exercise. - Goal of BP <130/80 2. Renal lesion -urology f/u as scheduled Kirstin Escalante APRN.[facility]22 NoteHNO ID: [id number] Author: Kirstin Escalante APRN.GROUP ACCOUNT DIRECTOR Service: ? Author Type: Nurse Practitioner Type: Progress Notes Filed: 05/13/2021 8:49 PM Note Text: Allan Lara is a 70 year old male seen today per nursing request. Rt eye reddened, Mild pruritis. No vision changes. VSSAF. Denies SOB or CP. NAD. OT. Concern(s) today include: Red eye irritation/constiation His medications were reviewed today and his list is now up to date. He is compliant on taking his medications :Yes He is tolerating his medication(s) without side effects: Yes REVIEW OF SYSTEMS 10 Points review of system negative apart from HPI. PAST MEDICAL HISTORY Diagnosis Date - Bipolar 1 disorder (HCC) - Depression - DM II (diabetes mellitus, type II), controlled (HCC) - Hypertension - Hypothyroidism - Schizophrenia, schizo-affective (HCC) - Vitamin B12 deficiency PAST SURGICAL HISTORY Procedure Laterality Date - APPENDECTOMY HX - COLONOSCOPY 09/05/2017 repeat in [address] Prakash - EGD 09/05/2017 Lorenzana's, repeat in [address] Prakash FAMILY HISTORY Problem Relation Age of Onset - Cancer Mother , lung and bone cancer - Alzheimer's Disease Father - GI Brother PUD Social History Tobacco Use - Smoking status: Never Smoker - Smokeless tobacco: Never Used Substance Use Topics - Alcohol use: Yes Comment: no use in 27 yearas - Drug use: Yes Comment: remote: diet pills ACTIVE PROBLEM LIST Slow Transit Constipation Fracture of Metacarpal Bone Essential Hypertension Hypothyroidism ALLERGIES Allergen Reactions - Cortisone Rash Vitals and Medications reviewed in [facility] system. PHYSICAL EXAMINATION: General appearance: Well appearing, alert, in no acute distress, well nourished. Eye : rt eye mild redness Neck: thyroid symmetric, normal size, no bruits Lungs: Lungs clear to auscultation. No wheezing, rhonchi, rales Heart: Normal rate and rhythm, without murmur, gallop, or rubs. Abdomen: Normal abdominal exam, Abdomen soft, non-tender. Bowel sounds normal. No masses Extremities: No edema or deformity Good capillary refill. Musculoskeletal: No joint swelling, deformity, or tenderness Peripheral pulses: Normal Neuro: no focal deficit. ASSESSMENT/PLAN: 1. Irritation of right eye - ICD9: 379.99, ICD10: H57.89 (primary diagnosis) Claritin daily -warm compresses 2. Slow transit constipation - ICD9: 564.01, ICD10: K59.01 -stable on current regimen Kirstin Escalante APRN.[facility]23-[facility]22 NoteHNO ID: [id number] Author: Kirstin Escalante APRN.BOAZ Service: ? Author Type: Nurse Practitioner Type: Progress Notes Filed: 05/11/2021 9:29 PM Note Text: Allan Lara is a 70 year old male seen today for skilled visit, . VSSAF. Denies SOB or CP. Carolann po. Denies constipation. Wt stable No behaviors reported. Med compliant NAD. Concern(s) today include: Hypothyroidism His medications were reviewed today and his list is now up to date. He is compliant on taking his medications :Yes He is tolerating his medication(s) without side effects: Yes REVIEW OF SYSTEMS 10 Points review of system negative apart from HPI. PAST MEDICAL HISTORY Diagnosis Date - Bipolar 1 disorder (HCC) - Depression - DM II (diabetes mellitus, type II), controlled (HCC) - Hypertension - Hypothyroidism - Schizophrenia, schizo-affective (HCC) - Vitamin B12 deficiency PAST SURGICAL HISTORY Procedure Laterality Date - APPENDECTOMY HX - COLONOSCOPY 09/05/2017 repeat in [address] Prakash - EGD 09/05/2017 Lorenzana's, repeat in [address] Prakash FAMILY HISTORY Problem Relation Age of Onset - Cancer Mother , lung and bone cancer - Alzheimer's Disease Father - GI Brother PUD Social History Tobacco Use - Smoking status: Never Smoker - Smokeless tobacco: Never Used Substance Use Topics - Alcohol use: Yes Comment: no use in 27 yearas - Drug use: Yes Comment: remote: diet pills ACTIVE PROBLEM LIST Slow Transit Constipation Fracture of Metacarpal Bone Essential Hypertension Hypothyroidism ALLERGIES Allergen Reactions - Cortisone Rash Vitals and Medications reviewed in [facility] system. PHYSICAL EXAMINATION: General appearance: Well appearing, alert, in no acute distress, well nourished. Neck: thyroid symmetric, normal size, no bruits Lungs: Lungs clear to auscultation. No wheezing, rhonchi, rales Heart: Normal rate and rhythm, without murmur, gallop, or rubs. Abdomen: Normal abdominal exam, Abdomen soft, non-tender. Bowel sounds normal. No masses Extremities: Rt hand swelling Good capillary refill. Musculoskeletal: No joint swelling, deformity, or tenderness Peripheral pulses: Normal Neuro: no focal deficit. ASSESSMENT/PLAN: 1. Hypothyroidism, unspecified type - ICD9: 244.9, ICD10: E03.9 (primary diagnosis) -continue synthroid dise -monitor thyroid panel 2.Schizoaffective disorder -stable on current meds -psych following Summer TABATHA Escalante.[facility]02-21-2022 NotePatient: ALLAN LARA Age: 70 years Sex: Male : 1950 Associated Diagnoses: Acute diarrhea; Acute renal failure (ARF); COVID-19; Dehydration; Dementia; Diabetes mellitus; HTN (hypertension); Hyperkalemia; Hyperlipemia; Kidney neoplasm; Multiple falls; Severe sepsis; Tachycardia Author: GARRETT KAUFFMAN, ROLANDO Beltran Patient is a 70-year-old WM with MMP admitted through ER due to diarrhea, dehydration, acute renal failure and sepsis, was treated conservatively is being DC'd to ECF for further care and follow-up as an outpatient. Discharge Information Home Medications (12) Active acetaminophen 325 mg oral tablet 650 mg = 2 tab(s), PRN, ORAL, [id number] albuterol-ipratropium 2.5 mg-0.5 mg/3 mL inhalation solution = DuoNeb 3 mL, PRN, Inhalation, [id number] RESPIRATORY cloZAPine 100 mg oral tablet 100 mg = 1 tabs, ORAL, DAILY cloZAPine 200 mg oral tablet 200 mg = 1 tabs, ORAL, QHS Colace 100 mg oral capsule 100 mg = 1 caps, ORAL, BID Flomax 0.4 mg oral capsule 0.4 mg = 1 caps, ORAL, BID Lipitor 10 mg oral tablet 10 mg = 1 tabs, ORAL, QHS Norvasc 10 mg oral tablet 10 mg = 1 tabs, ORAL, QHS [place] 0.65% nasal spray 2 sprays, PRN, Intranasal, QID omeprazole 20 mg oral delayed release capsule 20 mg = 1 caps, ORAL, QHS Synthroid 50 mcg (0.05 mg) oral tablet 50 mcg = 1 tabs, ORAL, DAILY Vitamin D3 5000 intl units (125 mcg) oral tablet 125 mcg, ORAL, DAILY Physical Examination Vital Signs (last 24 hrs) Last Charted Heart Rate Peripheral H 103bpm (APR 09 19:00) Resp Rate 16 br/min (APR 09 19:00) SBP 134 mmHg (APR 09:00) DBP 72 mmHg (APR 09:00) Eye: Normal conjunctiva. HENT: Normocephalic. Neck: Supple, No jugular venous distention. Respiratory: Lungs are clear to auscultation. Cardiovascular: Normal rate, Regular rhythm, No murmur, No edema. Gastrointestinal: Soft, Non-tender, Non-distended, Normal bowel sounds. Musculoskeletal: No deformity. Integumentary: Warm, Dry. Neurologic: Alert. Psychiatric: Cooperative. Discharge Plan Discharge Summary Plan Discharge Status: fair. Discharge instructions given: to patient. Discharge disposition: discharge to retirement facility. Prescriptions: reviewed. Diagnosis Acute diarrhea - ZZM80-XC R19.7, Medical. Acute renal failure (ARF) - GUJ96-YS N17.9, Medical. COVID-19 - ZTY62-BS U07.1, Medical. Dehydration - VWB66-IQ E86.0, Medical. Dementia - ALN80-BT F03.90, Medical. Diabetes mellitus - TRF49-TJ E11.9, Medical. HTN (hypertension) - FHU18-JK I10, Medical. Hyperkalemia - HTX28-YZ E87.5, Medical. Hyperlipemia - OXC22-ZO E78.5, Medical. Kidney neoplasm - TCB94-OX D49.519, Medical. Multiple falls - PNED [id number], Medical. Severe sepsis - DXT82-OS R65.20, Medical. Tachycardia - NXO91-NL R00.0, Medical. Education and Follow-up Discharge Planning: Renal US to be done in 6 months; SANDRITA ROSARIO, House Physician (Medical) Please follow up in 2 months; JUAN KAPLAN, Urology Within Call for Appointment Follow up for new Flomax prescription, jasso while in the hospital for retention. Healthcare02-18-2022 NoteHNO ID: [id number] Author: Kirstin Escalante APRN.GROUP ACCOUNT DIRECTOR Service: ? Author Type: Nurse Practitioner Type: Progress Notes Filed: 05/09/2021 8:01 PM Note Text: Allan Lara is a 70 year old male seen today for skilled visit. Denies pain. Med compliant . VSSAF. Denies SOB or CP. C/o nausea no emesis after meals. Denies abd pain . NAD. OT. Concern(s) today include: DM 2/ nausea His medications were reviewed today and his list is now up to date. He is compliant on taking his medications :Yes He is tolerating his medication(s) without side effects: Yes REVIEW OF SYSTEMS 10 Points review of system negative apart from HPI. PAST MEDICAL HISTORY Diagnosis Date - Bipolar 1 disorder (HCC) - Depression - DM II (diabetes mellitus, type II), controlled (HCC) - Hypertension - Hypothyroidism - Schizophrenia, schizo-affective (HCC) - Vitamin B12 deficiency PAST SURGICAL HISTORY Procedure Laterality Date - APPENDECTOMY HX - COLONOSCOPY 09/05/2017 repeat in [address] Prakash - EGD 09/05/2017 Lorenzana's, repeat in [address] Prakash FAMILY HISTORY Problem Relation Age of Onset - Cancer Mother , lung and bone cancer - Alzheimer's Disease Father - GI Brother PUD Social History Tobacco Use - Smoking status: Never Smoker - Smokeless tobacco: Never Used Substance Use Topics - Alcohol use: Yes Comment: no use in 27 yearas - Drug use: Yes Comment: remote: diet pills ACTIVE PROBLEM LIST Slow Transit Constipation Fracture of Metacarpal Bone Essential Hypertension Hypothyroidism ALLERGIES Allergen Reactions - Cortisone Rash Vitals and Medications reviewed in [facility] system. PHYSICAL EXAMINATION: General appearance: Well appearing, alert, in no acute distress, well nourished. Neck: thyroid symmetric, normal size, no bruits Lungs: Lungs clear to auscultation. No wheezing, rhonchi, rales Heart: Normal rate and rhythm, without murmur, gallop, or rubs. Abdomen: Normal abdominal exam, Abdomen soft, non-tender. Bowel sounds normal. No masses Extremities: No edema or deformity Good capillary refill. Musculoskeletal: No joint swelling, deformity, or tenderness Peripheral pulses: Normal Neuro: no focal deficit. ASSESSMENT/PLAN: 1.DM 2 -metformin 1000mg bid 2. Nausea -zofran prn -encourage po fluids -general surgery consult for gallstones Kirstin Escalante APRN.[facility]-14-2022 NoteHNO ID: [id number] Author: Kirstin Escalante APRN.BOAZ Service: ? Author Type: Nurse Practitioner Type: Progress Notes Filed: 05/07/2021 11:39 AM Note Text: Allan Lara is a 70 year old male seen today for skilled visit. Denies abd geiger but c/o intermittent nausea. No emesis. CT form SW report + Nonobstructive gallstones no CBD distention. Med compliant . VSSAF. Denies SOB or CP. NAD. OT. Concern(s) today include: Gallstones His medications were reviewed today and his list is now up to date. He is compliant on taking his medications :Yes He is tolerating his medication(s) without side effects: Yes REVIEW OF SYSTEMS 10 Points review of system negative apart from HPI. PAST MEDICAL HISTORY Diagnosis Date - Bipolar 1 disorder (HCC) - Depression - DM II (diabetes mellitus, type II), controlled (HCC) - Hypertension - Hypothyroidism - Schizophrenia, schizo-affective (HCC) - Vitamin B12 deficiency PAST SURGICAL HISTORY Procedure Laterality Date - APPENDECTOMY HX - COLONOSCOPY 09/05/2017 repeat in [address] Prakash - EGD 09/05/2017 Lorenzana's, repeat in [address] Prakash FAMILY HISTORY Problem Relation Age of Onset - Cancer Mother , lung and bone cancer - Alzheimer's Disease Father - GI Brother PUD Social History Tobacco Use - Smoking status: Never Smoker - Smokeless tobacco: Never Used Substance Use Topics - Alcohol use: Yes Comment: no use in 27 yearas - Drug use: Yes Comment: remote: diet pills ACTIVE PROBLEM LIST Slow Transit Constipation Fracture of Metacarpal Bone Essential Hypertension Hypothyroidism ALLERGIES Allergen Reactions - Cortisone Rash Vitals and Medications reviewed in [facility] system. PHYSICAL EXAMINATION: General appearance: Well appearing, alert, in no acute distress, well nourished. Neck: thyroid symmetric, normal size, no bruits Lungs: Lungs clear to auscultation. No wheezing, rhonchi, rales Heart: Normal rate and rhythm, without murmur, gallop, or rubs. Abdomen: Normal abdominal exam, Abdomen soft, non-tender. Bowel sounds normal. No masses Extremities: No edema or deformity Good capillary refill. Musculoskeletal: No joint swelling, deformity, or tenderness Peripheral pulses: Normal Neuro: no focal deficit. ASSESSMENT/PLAN: 1. Essential hypertension - ICD9: 401.9, ICD10: I10 (primary diagnosis) - good control - Recommended regular aerobic exercise. - Goal of BP <130/80 2. Gallstones -CBCD BMP General surgery consult Kirstin Escalante APRN.[facility]02-07-2022 NoteHNO ID: [id number] Author: Kirstin Escalante APRN.GROUP ACCOUNT DIRECTOR Service: ? Author Type: Nurse Practitioner Type: Progress Notes Filed: 04/28/2021 2:18 PM Note Text: Allan aLra is a 70 year old male seen today for skilled visit.Returned from acute stay at [facility] for HAYLIE sepsis after send out 922 for n/v /d change in MS. MS at baseline.VSSAF. Denies n/v or abd pain. Baseline creatine 1.5-1.7. Med compliant . VSSAF. Denies SOB or CP. NAD. PT/OT. Concern(s) today include: HTN/HAYLIE His medications were reviewed today and his list is now up to date. He is compliant on taking his medications :Yes He is tolerating his medication(s) without side effects: Yes REVIEW OF SYSTEMS 10 Points review of system negative apart from HPI. PAST MEDICAL HISTORY Diagnosis Date - Bipolar 1 disorder (HCC) - Depression - DM II (diabetes mellitus, type II), controlled (HCC) - Hypertension - Hypothyroidism - Schizophrenia, schizo-affective (HCC) - Vitamin B12 deficiency PAST SURGICAL HISTORY Procedure Laterality Date - APPENDECTOMY HX - COLONOSCOPY 09/05/2017 repeat in [address] Prakash - EGD 09/05/2017 Lorenzana's, repeat in [address] Prakash FAMILY HISTORY Problem Relation Age of Onset - Cancer Mother , lung and bone cancer - Alzheimer's Disease Father - GI Brother PUD Social History Tobacco Use - Smoking status: Never Smoker - Smokeless tobacco: Never Used Substance Use Topics - Alcohol use: Yes Comment: no use in 27 yearas - Drug use: Yes Comment: remote: diet pills ACTIVE PROBLEM LIST Slow Transit Constipation Fracture of Metacarpal Bone Essential Hypertension Hypothyroidism ALLERGIES Allergen Reactions - Cortisone Rash Vitals and Medications reviewed in [facility] system. PHYSICAL EXAMINATION: General appearance: Well appearing, alert, in no acute distress, well nourished. Neck: thyroid symmetric, normal size, no bruits Lungs: Lungs clear to auscultation. No wheezing, rhonchi, rales Heart: Normal rate and rhythm, without murmur, gallop, or rubs. Abdomen: Normal abdominal exam, Abdomen soft, non-tender. Bowel sounds normal. No masses Extremities: No edema or deformity Good capillary refill. Musculoskeletal: No joint swelling, deformity, or tenderness Peripheral pulses: Normal Neuro: no focal deficit. ASSESSMENT/PLAN: 1. Essential hypertension - ICD9: 401.9, ICD10: I10 (primary diagnosis) - good control - Recommended regular aerobic exercise. - Goal of BP <130/80 2. HAYLIE -resolved -avoid nephrotoxic meds -Repeat bmp Summer Boris, HAT FORMER.[facility]02-03-2022 NoteEXAM: CT Abdomen Without and With Intravenous Contrast CLINICAL HISTORY: Evaluation of renal lesions. Abnormal noncontrast CT. TECHNIQUE: Axial computed tomography images of the abdomen without and with intravenous contrast. Sagittal and coronal reformatted images were created and reviewed. This CT exam was performed using one or more of the following dose reduction techniques: automated exposure control, adjustment of themA and/or kV according to patient size, and/or use of iterative reconstruction technique. Limited exam. No delayed images performed. CONTRAST: 100mL of Isovue-300 was administered intravenously. COMPARISON: CT scan of the abdomen 04/06/2021. Ultrasound of the kidneys 04/05/2021. FINDINGS: Lung bases: Groundglass opacities and atelectatic changes noted towards the lung bases. Heart: Small pericardial effusion. Liver: Unremarkable. No mass. Gallbladder and bile ducts: Gallstones. No ductal dilation. Pancreas: Unremarkable. No mass. No ductal dilation. Spleen: Unremarkable. No splenomegaly. Adrenals: Unremarkable. No mass. Kidneys and ureters: Unchanged 6 mm nonobstructing stone in the lower pole of the right kidney. There are bilateral renal lesions:. Right kidney: There is a 4.8 cm lesion projecting anteriorly. It is demonstrated a Hounsfield unitsattenuation of 44 precontrast and 46 postcontrast. Probably representing cystic lesion with proteinaceous material. No lobular enhancement is demonstrated. The lesion is showing a septation by sonography. Bosniak 2F. There is a 6.2 cm cyst in the upper pole posteriorly. Simple. There is a 3.8 cm parapelvic cyst. Left kidney: There is a 5.3 cm cyst in the upper pole. There is a 1.1 cm cyst in the interpolar region. Both cysts are simple. Stomach and bowel: Constipation. The stomach is partially distended with food. The small bowel weight is nondilated. There is no transition zone to suspect obstruction. No mucosal thickening. Intraperitoneal space: Unremarkable. No free air. No significant fluid collection. Bones/joints: No acute fracture. No dislocation. Soft tissues: Unremarkable. Vasculature: Unremarkable. No abdominal aortic aneurysm. Lymph nodes: Unremarkable. No enlarged lymph nodes. IMPRESSION: Bilateral renal cysts. Most of the cysts are simple. There is a hyperdense cyst in the anterior aspect of the right kidney. It is showing a small septation by sonography. Bosniak 2F. Suggest six-month follow-up to assess for stability. The lesion can be followed with ultrasound or CT urography (with and without contrast, including delayed view). Gallstones. Nonobstructing stone in the right kidney. Electronically signed by: Jo-Ann Hauser MD 04/08/2021 1:47 PM NATURAL HISTORY COLLECTIONS CURATOR [id number] HospitalComment on above:Order Comment: CT renal protocol for evaluation of renal lesion.Result Comment: Technologist: MS,AL,WCL,KJF Dictated By: JO-ANN HAUSER MD Signed By: JO-ANN HAUSER MD Signed Out: 04/08/21 [id number] NotePatient: ALLAN LARA Age: 70 years Sex: Male : 1950 Associated Diagnoses: COVID-19; Dementia; Diabetes mellitus; HTN (hypertension); Hyperlipemia; Kidney neoplasm; Multiple falls Author: ROLANDO TUCKER MD Basic Information Source of history: Medical record. Referral source: Emergency department. Chief Complaint - Multiple fall History of Present Illness -Patient is 70-year-old WM from [place] with MMP including DM2, HTN, HLD, kidney neoplasm, recent history of COVID-19 was brought to ER due to multiple falls, generalized weakness and not feeling well, patient's work-up in the ER was suggestive of acute kidney injury and AMS, he is now being admitted toMedSurg floor for further care. History is limited due to underlying condition, most of the historywas obtained from chart and with my discussion with ER physician and reviewing the notes in the computer. Review of Systems 10 organ ROS pertinent for history mentioned above, otherwise (-)ve Health Status Allergies: Allergies (1) Active Reaction No Known Allergies None Documented Current medications: Medications (24) Active Scheduled: (12) AMLODIPINE 10MG TAB 10 mg 1 tabs, ORAL, QHS ATORVASTATIN 10MG TAB 10 mg 1 tabs, ORAL, QHS CHOLECALCIFEROL 1000 Intl Unit (25mcg) TAB 50 mcg 2 tabs, ORAL, DAILY CLOZAPINE 100MG TAB 100 mg 1 tabs, ORAL, DAILY CLOZAPINE 100MG TAB 200 mg 2 tabs, ORAL, QHS DOCUSATE SODIUM 100MG CAPSULE 100 mg 1 caps, ORAL, BID ENOXAPARIN 30MG/0.3ML INJ 30 mg 0.3 mL, Subcutaneous, QHS HUMAN LISPRO Mild Scale, Subcutaneous, QIDWMHS LEVOTHYROXINE 50MCG TABLET 50 mcg 1 tabs, ORAL, DAILY BEFORE BREAKFAST PANTOPRAZOLE 40MG TAB 40 mg 1 tabs, ORAL, DAILY SODIUM CHLORIDE SYR/VIAL 10ML 3 mL, IV Push, [id number] TAMSULOSIN 0.4MG CAP 0.4 mg 1 caps, ORAL, BID Continuous: (1) SODIUM CHLORIDE 0.9% 1,000 mL 1,000 mL, IV, 1000 mL/hr PRN: (11) ACETAMINOPHEN 325 MG TAB 650 mg 2 tabs, ORAL, [id number] ACETAMINOPHEN 325 MG TAB 650 mg 2 tabs, ORAL, [id number] ALBUTEROL 0.083% AEROSOL 2.5mg/3ML 2.5 mg 3 mL, Inhalation, [id number] RESPIRATORY DEXTROSE 50% 50ML SYRINGE/VIAL 12.5 g 25 mL, IV Push, PRN DEXTROSE 50% 50ML SYRINGE/VIAL 25 g 50 mL, IV Push, PRN GLUCAGON 1MG INJ 1 mg, IM, PRN GLUCOSE GEL 15GM/42ML 15 g 1 packets, ORAL, PRN GLUCOSE GEL 15GM/42ML 30 g 2 packets, ORAL, PRN SODIUM CHLORIDE NASAL SPRAY 45ML 2 sprays, Intranasal, QID SODIUM CHLORIDE SYR/VIAL 10ML 3 mL, IV Push, PRN ZOLPIDEM 2.5MG/ 0.5 TABLET 2.5 mg 1 EA, ORAL, QHS/[id number] Problem list: Active Problems (9) At risk for falls Auditory hallucinations COVID-19 Dementia Diabetes mellitus HTN (hypertension) Hyperlipemia Kidney neoplasm Schizoaffective disorder Histories Family History: No family history items have been selected or recorded. Procedure history: No active procedure history items have been selected or recorded. Social History Social & Psychosocial History Social History Alcohol Denies Alcohol Use Substance Abuse Denies Substance Abuse Tobacco Denies Tobacco Use Psychosocial History No active psychosocial history has been recorded. Physical Examination Vital Signs (last 24 hrs) Last Charted Heart Rate Peripheral H 116bpm (APR 05 14:46) Resp Rate 16 br/min (APR 05 15:43) SBP 125 mmHg (APR 05 14:46) DBP 84 mmHg (APR 05 14:46) BMI 21.8 (APR 05 14:40) General: Mild distress. Eye: Normal conjunctiva. HENT: Normocephalic. Neck: Supple. Respiratory: Lungs are clear to auscultation. Cardiovascular: Regular rhythm, No murmur. Gastrointestinal: Soft, Non-tender, Non-distended, Normal bowel sounds. Genitourinary: No costovertebral angle tenderness. Lymphatics: No lymphadenopathy neck, axilla, groin. Musculoskeletal: No tenderness, No swelling. Integumentary: Warm, Dry. Neurologic: Alert. Labs (Last four charted values) WBC H 25.6 (APR 05) Hgb 16.7 (APR 05) Hct 49.8 (APR 05) Plt 259 (APR 05) Na L 132 (APR 05) K 4.0 (APR 05) C 6.3 (APR 05) CO2 23.0 (APR 05) Cl 105 (APR 05) Cr H 2.3 (APR 05) BUN H 32 (APR 05) Glucose Random H 325 (APR 05) Ca 9.2 (APR 05) INR 1.0 (APR 05) Total CK 272 (APR 05) Reason For Exam AMS;OTHER REASON Report INDICATION: AMS;OTHER REASON. Pain post fall COMPARISON: March 28 2020, brain CORRELATION: None TECHNIQUE: Noncontrast spiral axial CT images were obtained from the skull base to vertex. Noncontrast spiral axial CT imaging through the cervical spine with multiplanar reconstructions. This exam was performed according to our departmental dose-optimization program, which includes automated exposure control, adjustment of the mA and/or kV according to patient size and/or use of iterative reconstruction techniques. FINDINGS: BRAIN: There is no evidence of acute intracranial hemorrhage, midline shift, mass effect or mass lesion. Avila-white differentiation is normal. There (more content not included)...[facility]01-31-2022 NotePROCEDURE: XR Chest, 1 View CLINICAL INDICATION: The patient is 70 years old and is Male; AMS;OTHER REASON WHAT SYMPTOMS ARE YOU EXPERIENCING? - AMS; OTHER REASON TECHNIQUE: Frontal view of the chest. COMPARISON: XR CHEST dated March 28 2020 FINDINGS: LUNGS: Unremarkable. No consolidation. PLEURAL SPACE: Unremarkable. No pneumothorax. HEART: Unremarkable. No cardiomegaly. MEDIASTINUM: Unremarkable. BONES/JOINTS: Degenerative change the bones is noted. UPPER ABDOMEN: Unremarkable as visualized. IMPRESSION: No acute cardiopulmonary process. Electronically signed by: Dayanna Hernandez MD 04/05/2021 3:22 AM [employer]URAL HISTORY COLLECTIONS CURATOR Technologist: CV Dictated By: DAYANNA HERNANDEZ MD Signed By: DAYANNA HERNANDEZ MD Signed [facility] 04[facility]05[facility]21 [facility] NoteHNO ID: [id number] Author: Kirstin Escalante APRN.GROUP ACCOUNT DIRECTOR Service: ? Author Type: Nurse Practitioner Type: Progress Notes Filed: 04/05/2021 10:58 PM Note Text: Allan Lara is a 70 year old male seen today for skilled visit. Denies n/v or abd pain. Med compliant . VSSAF. Denies SOB or CP. NAD. OT. Concern(s) today include: HTN/HLD His medications were reviewed today and his list is now up to date. He is compliant on taking his medications :Yes He is tolerating his medication(s) without side effects: Yes REVIEW OF SYSTEMS 10 Points review of system negative apart from HPI. PAST MEDICAL HISTORY Diagnosis Date - Bipolar 1 disorder (HCC) - Depression - DM II (diabetes mellitus, type II), controlled (HCC) - Hypertension - Hypothyroidism - Schizophrenia, schizo-affective (HCC) - Vitamin B12 deficiency PAST SURGICAL HISTORY Procedure Laterality Date - APPENDECTOMY HX - COLONOSCOPY 09/05/2017 repeat in [address] Prakash - EGD 09/05/2017 [facility], repeat in [address] Prakash FAMILY HISTORY Problem Relation Age of Onset - Cancer Mother , lung and bone cancer - Alzheimer's Disease Father - GI Brother PUD Social History Tobacco Use - Smoking status: Never Smoker - Smokeless tobacco: Never Used Substance Use Topics - Alcohol use: Yes Comment: no use in 27 yearas - Drug use: Yes Comment: remote: diet pills ACTIVE PROBLEM LIST Slow Transit Constipation Fracture of Metacarpal Bone Essential Hypertension Hypothyroidism ALLERGIES Allergen Reactions - Cortisone Rash Vitals and Medications reviewed in [facility] system. PHYSICAL EXAMINATION: General appearance: Well appearing, alert, in no acute distress, well nourished. Neck: thyroid symmetric, normal size, no bruits Lungs: Lungs clear to auscultation. No wheezing, rhonchi, rales Heart: Normal rate and rhythm, without murmur, gallop, or rubs. Abdomen: Normal abdominal exam, Abdomen soft, non-tender. Bowel sounds normal. No masses Extremities: No edema or deformity Good capillary refill. Musculoskeletal: No joint swelling, deformity, or tenderness Peripheral pulses: Normal Neuro: no focal deficit. ASSESSMENT/PLAN: 1. Essential hypertension - ICD9: 401.9, ICD10: I10 (primary diagnosis) - good control - Recommended regular aerobic exercise. - Goal of BP <130/80 2. HLD -statin -lft/flp Kirstin Escalante [facility]22 NoteHNO ID: [id number] Author: Kirstin Escalante APRN.GROUP ACCOUNT DIRECTOR Service: ? Author Type: Nurse Practitioner Type: Progress Notes Filed: 04/04/2021 7:32 PM Note Text: Allan Lara is a 70 year old male seen today per nursing request. Labs , US and KUB reviewed. No further pain or n/v. Med compliant . VSSAF. 11. Hx med induced Leukocytosis with baseline 10-12. NAD. Concern(s) today include: Abd pain His medications were reviewed today and his list is now up to date. He is compliant on taking his medications :Yes He is tolerating his medication(s) without side effects: Yes REVIEW OF SYSTEMS 10 Points review of system negative apart from HPI. Vitals and Medications reviewed in [facility] system. PHYSICAL EXAMINATION: General appearance: Well appearing, alert, in no acute distress, well nourished. Neck: thyroid symmetric, normal size, no bruits Lungs: Lungs clear to auscultation. No wheezing, rhonchi, rales Heart: Normal rate and rhythm, without murmur, gallop, or rubs. Abdomen: Normal abdominal exam, Abdomen softBowel sounds normal. No masses Extremities: No edema or deformity Good capillary refill. Musculoskeletal: No joint swelling, deformity, or tenderness Peripheral pulses: Normal Neuro: no focal deficit. ASSESSMENT/PLAN: 1. Abdominal pain, unspecified abdominal location - ICD9: 789.00, ICD10: R10.9 (primary diagnosis) -KUB/US negative -no further N/V 2. Leukocytosis, unspecified type - ICD9: 288.60, ICD10: D72.829 - resolved Kirstin Escalante APR[facility]14-2022 NoteHNO ID: [id number] Author: Kirstin Escalante APRN.GROUP ACCOUNT DIRECTOR Service: ? Author Type: Nurse Practitioner Type: Progress Notes Filed: 03/31/2021 4:31 PM Note Text: Allan Lara is a 70 year old male seen today per nursing request. C/o generalized abd pain, RUQ tenderness, +Nausea no emesis. Med compliant . VSSAF. Denies SOB or CP.WBC 23. NAD. Concern(s) today include: Abd pain His medications were reviewed today and his list is now up to date. He is compliant on taking his medications :Yes He is tolerating his medication(s) without side effects: Yes REVIEW OF SYSTEMS 10 Points review of system negative apart from HPI. PAST MEDICAL HISTORY Diagnosis Date - Bipolar 1 disorder (HCC) - Depression - DM II (diabetes mellitus, type II), controlled ([facility]) - Hypertension - Hypothyroidism - Schizophrenia, schizo-affective (HCC) - Vitamin B12 deficiency PAST SURGICAL HISTORY Procedure Laterality Date - APPENDECTOMY HX - COLONOSCOPY 09/05/2017 repeat in [address] Prakash - EGD 09/05/2017 [facility], repeat in [address] Prakash FAMILY HISTORY Problem Relation Age of Onset - Cancer Mother , lung and bone cancer - Alzheimer's Disease Father - GI Brother PUD Social History Tobacco Use - Smoking status: Never Smoker - Smokeless tobacco: Never Used Substance Use Topics - Alcohol use: Yes Comment: no use in 27 yearas - Drug use: Yes Comment: remote: diet pills ACTIVE PROBLEM LIST Slow Transit Constipation Fracture of Metacarpal Bone Essential Hypertension Hypothyroidism ALLERGIES Allergen Reactions - Cortisone Rash Vitals and Medications reviewed in [facility] system. PHYSICAL EXAMINATION: General appearance: Well appearing, alert, in no acute distress, well nourished. Neck: thyroid symmetric, normal size, no bruits Lungs: Lungs clear to auscultation. No wheezing, rhonchi, rales Heart: Normal rate and rhythm, without murmur, gallop, or rubs. Abdomen: Normal abdominal exam, Abdomen soft, ruq tenderness Bowel sounds normal. No masses Extremities: No edema or deformity Good capillary refill. Musculoskeletal: No joint swelling, deformity, or tenderness Peripheral pulses: Normal Neuro: no focal deficit. ASSESSMENT/PLAN: 1. Abdominal pain, unspecified abdominal location - ICD9: 789.00, ICD10: R10.9 (primary diagnosis) -KUB/US 2. Leukocytosis, unspecified type - ICD9: 288.60, ICD10: D72.829 -repeat CBCD Kirstin Escalante APRN.[facility]12-29-2021 NoteHNO ID: [id number] Author: Kirstin Escalante APRN.GROUP ACCOUNT DIRECTOR Service: ? Author Type: Nurse Practitioner Type: Progress Notes Filed: 03/10/2021 4:19 PM Note Text: Allan Lara is a 70 year old male seen today Per nursing request.. Reports patient has had rhinorrhea x2 days. Vital signs stable afebrile no cough negative Covid swab thus far. denies n/v or abd ashlie . Denies SOB or CP. NAD. OT. Concern(s) today include: HTN/rhinorrhea His medications were reviewed today and his list is now up to date. He is compliant on taking his medications :Yes He is tolerating his medication(s) without side effects: Yes REVIEW OF SYSTEMS 10 Points review of system negative apart from HPI. PAST MEDICAL HISTORY Diagnosis Date - Bipolar 1 disorder (HCC) - Depression - DM II (diabetes mellitus, type II), controlled (HCC) - Hypertension - Hypothyroidism - Schizophrenia, schizo-affective (HCC) - Vitamin B12 deficiency PAST SURGICAL HISTORY Procedure Laterality Date - APPENDECTOMY HX - COLONOSCOPY 09/05/2017 repeat in [address] Prakash - EGD 09/05/2017 [facility], repeat in [address] Prakash FAMILY HISTORY Problem Relation Age of Onset - Cancer Mother , lung and bone cancer - Alzheimer's Disease Father - GI Brother PUD Social History Tobacco Use - Smoking status: Never Smoker - Smokeless tobacco: Never Used Substance Use Topics - Alcohol use: Yes Comment: no use in 27 yearas - Drug use: Yes Comment: remote: diet pills ACTIVE PROBLEM LIST Slow Transit Constipation Fracture of Metacarpal Bone Essential Hypertension Hypothyroidism ALLERGIES Allergen Reactions - Cortisone Rash Vitals and Medications reviewed in [facility] system. PHYSICAL EXAMINATION: General appearance: Well appearing, alert, in no acute distress, well nourished. Neck: thyroid symmetric, normal size, no bruits Lungs: Lungs clear to auscultation. No wheezing, rhonchi, rales Heart: Normal rate and rhythm, without murmur, gallop, or rubs. Abdomen: Normal abdominal exam, Abdomen soft, non-tender. Bowel sounds normal. No masses Extremities: No edema or deformity Good capillary refill. Musculoskeletal: No joint swelling, deformity, or tenderness Peripheral pulses: Normal Neuro: no focal deficit. ASSESSMENT/PLAN: 1. Essential hypertension - ICD9: 401.9, ICD10: I10 (primary diagnosis) - good control - Recommended regular aerobic exercise. - Goal of BP <130/80 2. Rhinorrhea -Claritin 10 mg daily Negative Covid swab Kirstin Escalante APRN.[facility]12-10-2021 NoteHNO ID: [id number] Author: Kirstin Escalante APRN.GROUP ACCOUNT DIRECTOR Service: ? Author Type: Nurse Practitioner Type: Progress Notes Filed: 02/24/2021 2:17 PM Note Text: Allan Lara is a 70 year old male seen today per nursing request. Labs reviewed. WBC 14. No s/s of infection. Med compliant . Denies SOB or CP. No n/v . Denies constipation.NAD. His medications were reviewed today and his list is now up to date. He is compliant on taking his medications :Yes He is tolerating his medication(s) without side effects: Yes REVIEW OF SYSTEMS 10 Points review of system negative apart from HPI. PAST MEDICAL HISTORY Diagnosis Date - Bipolar 1 disorder (HCC) - Depression - DM II (diabetes mellitus, type II), controlled (HCC) - Hypertension - Hypothyroidism - Schizophrenia, schizo-affective (HCC) - Vitamin B12 deficiency PAST SURGICAL HISTORY Procedure Laterality Date - APPENDECTOMY HX - COLONOSCOPY 09/05/2017 repeat in [address] Prakash - EGD 09/05/2017 [facility], repeat in [address] Prakash FAMILY HISTORY Problem Relation Age of Onset - Cancer Mother , lung and bone cancer - Alzheimer's Disease Father - GI Brother PUD Social History Tobacco Use - Smoking status: Never Smoker - Smokeless tobacco: Never Used Substance Use Topics - Alcohol use: Yes Comment: no use in 27 yearas - Drug use: Yes Comment: remote: diet pills ACTIVE PROBLEM LIST Slow Transit Constipation Fracture of Metacarpal Bone Essential Hypertension Hypothyroidism ALLERGIES Allergen Reactions - Cortisone Rash Vitals and Medications reviewed in [facility] system. PHYSICAL EXAMINATION: General appearance: Well appearing, alert, in no acute distress, well nourished. Neck: thyroid symmetric, normal size, no bruits Lungs: Lungs clear to auscultation. No wheezing, rhonchi, rales Heart: Normal rate and rhythm, without murmur, gallop, or rubs. Abdomen: Normal abdominal exam, Abdomen soft, non-tender. Bowel sounds normal. No masses Extremities: Rt hand swelling Good capillary refill. Musculoskeletal: No joint swelling, deformity, or tenderness Peripheral pulses: Normal Neuro: no focal deficit. ASSESSMENT/PLAN: 1. Leukocytosis, unspecified type - ICD9: 288.60, ICD10: D72.829 (primary diagnosis) -repeat cbcd -no s/s of infection -WBC 14 2. Hyperlipidemia, unspecified hyperlipidemia type - ICD9: 272.4, ICD10: E78.5 - good control - Continue current medication. Kirstin Escalante APRN.[facility]12-09-2021 NoteHNO ID: [id number] Author: Kirstin Escalante APRN.GROUP ACCOUNT DIRECTOR Service: ? Author Type: Nurse Practitioner Type: Progress Notes Filed: 02/20/2021 10:25 PM Note Text: Allan Lara is a 70 year old male seen today Per nursing request. R had episode of dizziness during therapy. Resolved after 2-5 min per staff. Med compliant . Denies SOB or CP. No n/v . Denies constipation.NAD. Concern(s) today include:Orthostatic hypotension His medications were reviewed today and his list is now up to date. He is compliant on taking his medications :Yes He is tolerating his medication(s) without side effects: Yes REVIEW OF SYSTEMS 10 Points review of system negative apart from HPI. PAST MEDICAL HISTORY Diagnosis Date - Bipolar 1 disorder (HCC) - Depression - DM II (diabetes mellitus, type II), controlled (HCC) - Hypertension - Hypothyroidism - Schizophrenia, schizo-affective (HCC) - Vitamin B12 deficiency PAST SURGICAL HISTORY Procedure Laterality Date - APPENDECTOMY HX - COLONOSCOPY 09/05/2017 repeat in [address] Prakash - EGD 09/05/2017 [facility], repeat in [address] Prakash FAMILY HISTORY Problem Relation Age of Onset - Cancer Mother , lung and bone cancer - Alzheimer's Disease Father - GI Brother PUD Social History Tobacco Use - Smoking status: Never Smoker - Smokeless tobacco: Never Used Substance Use Topics - Alcohol use: Yes Comment: no use in 27 yearas - Drug use: Yes Comment: remote: diet pills ACTIVE PROBLEM LIST Slow Transit Constipation Fracture of Metacarpal Bone Essential Hypertension Hypothyroidism ALLERGIES Allergen Reactions - Cortisone Rash Vitals and Medications reviewed in [facility] system. PHYSICAL EXAMINATION: General appearance: Well appearing, alert, in no acute distress, well nourished. Neck: thyroid symmetric, normal size, no bruits Lungs: Lungs clear to auscultation. No wheezing, rhonchi, rales Heart: Normal rate and rhythm, without murmur, gallop, or rubs. Abdomen: Normal abdominal exam, Abdomen soft, non-tender. Bowel sounds normal. No masses Extremities: Rt hand swelling Good capillary refill. Musculoskeletal: No joint swelling, deformity, or tenderness Peripheral pulses: Normal Neuro: no focal deficit. ASSESSMENT/PLAN: 1.Orthostatic hypotension -orthostatic vitals x 3 -encourage po fluids 2. Constipation -stable on current regimen Kirstin Escalante APRN.[facility]11-12-2021 NoteHNO ID: [id number] Author: Kirstin Escalante APRN.BOAZ Service: ? Author Type: Nurse Practitioner Type: Progress Notes Filed: 01/26/2021 9:25 PM Note Text: Allan Lara is a 70 year old male seen today per nursing request. C/o sinus congestion x 1 day. VSSAF. Denies SOB or CP. Carolann po. Denies constipation. Wt stable No behaviors reported. Med compliant NAD. Concern(s) today include: Hypothyroidism/Sinus congestion His medications were reviewed today and his list is now up to date. He is compliant on taking his medications :Yes He is tolerating his medication(s) without side effects: Yes REVIEW OF SYSTEMS 10 Points review of system negative apart from HPI. PAST MEDICAL HISTORY Diagnosis Date - Bipolar 1 disorder (HCC) - Depression - DM II (diabetes mellitus, type II), controlled (HCC) - Hypertension - Hypothyroidism - Schizophrenia, schizo-affective (HCC) - Vitamin B12 deficiency PAST SURGICAL HISTORY Procedure Laterality Date - APPENDECTOMY HX - COLONOSCOPY 09/05/2017 repeat in [address] Prakash - EGD 09/05/2017 [facility], repeat in [address] Prakash FAMILY HISTORY Problem Relation Age of Onset - Cancer Mother , lung and bone cancer - Alzheimer's Disease Father - GI Brother PUD Social History Tobacco Use - Smoking status: Never Smoker - Smokeless tobacco: Never Used Substance Use Topics - Alcohol use: Yes Comment: no use in 27 yearas - Drug use: Yes Comment: remote: diet pills ACTIVE PROBLEM LIST Slow Transit Constipation Fracture of Metacarpal Bone Essential Hypertension Hypothyroidism ALLERGIES Allergen Reactions - Cortisone Rash Vitals and Medications reviewed in [facility] system. PHYSICAL EXAMINATION: General appearance: Well appearing, alert, in no acute distress, well nourished. Neck: thyroid symmetric, normal size, no bruits Lungs: Lungs clear to auscultation. No wheezing, rhonchi, rales Heart: Normal rate and rhythm, without murmur, gallop, or rubs. Abdomen: Normal abdominal exam, Abdomen soft, non-tender. Bowel sounds normal. No masses Extremities: Rt hand swelling Good capillary refill. Musculoskeletal: No joint swelling, deformity, or tenderness Peripheral pulses: Normal Neuro: no focal deficit. ASSESSMENT/PLAN: 1. Hypothyroidism, unspecified type - ICD9: 244.9, ICD10: E03.9 (primary diagnosis) -continue synthroid dise -monitor thyroid panel 2.Sinus congestion -continue Claritin 10 mg daily -encourage po fluids ,tylenol prn Kirstin Escalante APRN.[facility]11-10-2021 NoteHNO ID: [id number] Author: Kirstin Escalante APRN.BOAZ Service: ? Author Type: Nurse Practitioner Type: Progress Notes Filed: 01/13/2021 1:33 PM Note Text: Allan Lara is a 70 year old male seen today for skilled visit. Denies n/v or abd pain. Med compliant . VSSAF. Denies SOB or CP. NAD. OT. Concern(s) today include: HTN/HLD His medications were reviewed today and his list is now up to date. He is compliant on taking his medications :Yes He is tolerating his medication(s) without side effects: Yes REVIEW OF SYSTEMS 10 Points review of system negative apart from HPI. PAST MEDICAL HISTORY Diagnosis Date - Bipolar 1 disorder (HCC) - Depression - DM II (diabetes mellitus, type II), controlled (HCC) - Hypertension - Hypothyroidism - Schizophrenia, schizo-affective (HCC) - Vitamin B12 deficiency PAST SURGICAL HISTORY Procedure Laterality Date - APPENDECTOMY HX - COLONOSCOPY 09/05/2017 repeat in [address] Prakash - EGD 09/05/2017 [facility], repeat in [address] Prakash FAMILY HISTORY Problem Relation Age of Onset - Cancer Mother , lung and bone cancer - Alzheimer's Disease Father - GI Brother PUD Social History Tobacco Use - Smoking status: Never Smoker - Smokeless tobacco: Never Used Substance Use Topics - Alcohol use: Yes Comment: no use in 27 yearas - Drug use: Yes Comment: remote: diet pills ACTIVE PROBLEM LIST Slow Transit Constipation Fracture of Metacarpal Bone Essential Hypertension Hypothyroidism ALLERGIES Allergen Reactions - Cortisone Rash Vitals and Medications reviewed in [facility] system. PHYSICAL EXAMINATION: General appearance: Well appearing, alert, in no acute distress, well nourished. Neck: thyroid symmetric, normal size, no bruits Lungs: Lungs clear to auscultation. No wheezing, rhonchi, rales Heart: Normal rate and rhythm, without murmur, gallop, or rubs. Abdomen: Normal abdominal exam, Abdomen soft, non-tender. Bowel sounds normal. No masses Extremities: No edema or deformity Good capillary refill. Musculoskeletal: No joint swelling, deformity, or tenderness Peripheral pulses: Normal Neuro: no focal deficit. ASSESSMENT/PLAN: 1. Essential hypertension - ICD9: 401.9, ICD10: I10 (primary diagnosis) - good control - Recommended regular aerobic exercise. - Goal of BP <130/80 2. HLD -statin -lft/flp Kirstin Escalante APRN.[facility]10-29-2021 NoteHNO ID: [id number] Author: Kirstin Escalante APRN.CNP Service: ? Author Type: Nurse Practitioner Type: Progress Notes Filed: 01/08/2021 12:00 PM Note Text: Allan Lara is a 70 year old male seen today for skilled visit OT following. Denies SOB or CP Carolann po. Denies constipation. Concern(s) today include: Hypothyroidism/Schizoeffective His medications were reviewed today and his list is now up to date. He is compliant on taking his medications :Yes He is tolerating his medication(s) without side effects: Yes REVIEW OF SYSTEMS 10 Points review of system negative apart from HPI. PAST MEDICAL HISTORY Diagnosis Date - Bipolar 1 disorder (HCC) - Depression - DM II (diabetes mellitus, type II), controlled (HCC) - Hypertension - Hypothyroidism - Schizophrenia, schizo-affective (HCC) - Vitamin B12 deficiency PAST SURGICAL HISTORY Procedure Laterality Date - APPENDECTOMY HX - COLONOSCOPY 09/05/2017 repeat in [address] Prakash - EGD 09/05/2017 [facility], repeat in [address] Prakash FAMILY HISTORY Problem Relation Age of Onset - Cancer Mother , lung and bone cancer - Alzheimer's Disease Father - GI Brother PUD Social History Tobacco Use - Smoking status: Never Smoker - Smokeless tobacco: Never Used Substance Use Topics - Alcohol use: Yes Comment: no use in 27 yearas - Drug use: Yes Comment: remote: diet pills ACTIVE PROBLEM LIST Slow Transit Constipation Fracture of Metacarpal Bone Essential Hypertension Hypothyroidism ALLERGIES Allergen Reactions - Cortisone Rash Vitals and Medications reviewed in [facility] system. PHYSICAL EXAMINATION: General appearance: Well appearing, alert, in no acute distress, well nourished. Neck: thyroid symmetric, normal size, no bruits Lungs: Lungs clear to auscultation. No wheezing, rhonchi, rales Heart: Normal rate and rhythm, without murmur, gallop, or rubs. Abdomen: Normal abdominal exam, Abdomen soft, non-tender. Bowel sounds normal. No masses Extremities: Rt hand swelling Good capillary refill. Musculoskeletal: No joint swelling, deformity, or tenderness Peripheral pulses: Normal Neuro: no focal deficit. ASSESSMENT/PLAN: 1. Hypothyroidism, unspecified type - ICD9: 244.9, ICD10: E03.9 (primary diagnosis) -continue synthroid dose -monitor thyroid panle 2. Schizoaffective -med compliant -psych following -stable Summer TABATHA Escalante.[facility]10-18-2021 NoteHNO ID: [id number] Author: Kirstin Escalante APRN.GROUP ACCOUNT DIRECTOR Service: ? Author Type: Nurse Practitioner Type: Progress Notes Filed: 12/25/2020 3:37 PM Note Text: Allan Lara is a 70 year old male seen today for skilled visit. Denies pain. Med compliant . VSSAF. Denies SOB or CP. No n/v . NAD. OT. Concern(s) today include: DM 2/ hld His medications were reviewed today and his list is now up to date. He is compliant on taking his medications :Yes He is tolerating his medication(s) without side effects: Yes REVIEW OF SYSTEMS 10 Points review of system negative apart from HPI. PAST MEDICAL HISTORY Diagnosis Date - Bipolar 1 disorder (HCC) - Depression - DM II (diabetes mellitus, type II), controlled (HCC) - Hypertension - Hypothyroidism - Schizophrenia, schizo-affective (HCC) - Vitamin B12 deficiency PAST SURGICAL HISTORY Procedure Laterality Date - APPENDECTOMY HX - COLONOSCOPY 09/05/2017 repeat in [address] Prakash - EGD 09/05/2017 [facility], repeat in [address] Prakash FAMILY HISTORY Problem Relation Age of Onset - Cancer Mother , lung and bone cancer - Alzheimer's Disease Father - GI Brother PUD Social History Tobacco Use - Smoking status: Never Smoker - Smokeless tobacco: Never Used Substance Use Topics - Alcohol use: Yes Comment: no use in 27 yearas - Drug use: Yes Comment: remote: diet pills ACTIVE PROBLEM LIST Slow Transit Constipation Fracture of Metacarpal Bone Essential Hypertension Hypothyroidism ALLERGIES Allergen Reactions - Cortisone Rash Vitals and Medications reviewed in [facility] system. PHYSICAL EXAMINATION: General appearance: Well appearing, alert, in no acute distress, well nourished. Neck: thyroid symmetric, normal size, no bruits Lungs: Lungs clear to auscultation. No wheezing, rhonchi, rales Heart: Normal rate and rhythm, without murmur, gallop, or rubs. Abdomen: Normal abdominal exam, Abdomen soft, non-tender. Bowel sounds normal. No masses Extremities: No edema or deformity Good capillary refill. Musculoskeletal: No joint swelling, deformity, or tenderness Peripheral pulses: Normal Neuro: no focal deficit. ASSESSMENT/PLAN: 1.DM 2 -metformin 1000mg bid 2. DM2 -metformin -A1C Kirstin Escalante APRN.CNPA[facility]10-13-2021 NoteHNO ID: [id number] Author: Kirstin Escalante APRN.CNP Service: ? Author Type: Nurse Practitioner Type: Progress Notes Filed: 12/21/2020 5:58 PM Note Text: Allan Lara is a 70 year old male seen today per nursing request. Rt eye reddened, Mild pruritis. No vision changes. VSSAF. Denies SOB or CP. NAD. OT. Concern(s) today include: Red eye irritation/constiation His medications were reviewed today and his list is now up to date. He is compliant on taking his medications :Yes He is tolerating his medication(s) without side effects: Yes REVIEW OF SYSTEMS 10 Points review of system negative apart from HPI. PAST MEDICAL HISTORY Diagnosis Date - Bipolar 1 disorder (HCC) - Depression - DM II (diabetes mellitus, type II), controlled (HCC) - Hypertension - Hypothyroidism - Schizophrenia, schizo-affective (HCC) - Vitamin B12 deficiency PAST SURGICAL HISTORY Procedure Laterality Date - APPENDECTOMY HX - COLONOSCOPY 09/05/2017 repeat in [address] Prakash - EGD 09/05/2017 [facility], repeat in [address] Prakash FAMILY HISTORY Problem Relation Age of Onset - Cancer Mother , lung and bone cancer - Alzheimer's Disease Father - GI Brother PUD Social History Tobacco Use - Smoking status: Never Smoker - Smokeless tobacco: Never Used Substance Use Topics - Alcohol use: Yes Comment: no use in 27 yearas - Drug use: Yes Comment: remote: diet pills ACTIVE PROBLEM LIST Slow Transit Constipation Fracture of Metacarpal Bone Essential Hypertension Hypothyroidism ALLERGIES Allergen Reactions - Cortisone Rash Vitals and Medications reviewed in [facility] system. PHYSICAL EXAMINATION: General appearance: Well appearing, alert, in no acute distress, well nourished. Eye : rt eye mild redness Neck: thyroid symmetric, normal size, no bruits Lungs: Lungs clear to auscultation. No wheezing, rhonchi, rales Heart: Normal rate and rhythm, without murmur, gallop, or rubs. Abdomen: Normal abdominal exam, Abdomen soft, non-tender. Bowel sounds normal. No masses Extremities: No edema or deformity Good capillary refill. Musculoskeletal: No joint swelling, deformity, or tenderness Peripheral pulses: Normal Neuro: no focal deficit. ASSESSMENT/PLAN: 1. Irritation of right eye - ICD9: 379.99, ICD10: H57.89 (primary diagnosis) Claritin daily -warm compresses 2. Slow transit constipation - ICD9: 564.01, ICD10: K59.01 -stable on current regimen Kirstin Escalante APRN.[facility]PA[facility]09-29-2021 NoteHNO ID: [id number] Author: Kirstin Escalante APRN.CNP Service: ? Author Type: Nurse Practitioner Type: Progress Notes Filed: 12/06/2020 7:57 PM Note Text: Allan Lara is a 70 year old male seen today per R request. Reports improved nasal and sinus congestion. C/o MNPC. VSSAF. Denies SOB or CP. NAD. OT. Concern(s) today include: HTN/cough His medications were reviewed today and his list is now up to date. He is compliant on taking his medications :Yes He is tolerating his medication(s) without side effects: Yes REVIEW OF SYSTEMS 10 Points review of system negative apart from HPI. PAST MEDICAL HISTORY Diagnosis Date - Bipolar 1 disorder (HCC) - Depression - DM II (diabetes mellitus, type II), controlled (HCC) - Hypertension - Hypothyroidism - Schizophrenia, schizo-affective (HCC) - Vitamin B12 deficiency PAST SURGICAL HISTORY Procedure Laterality Date - APPENDECTOMY HX - COLONOSCOPY 09/05/2017 repeat in [address] Prakash - EGD 09/05/2017 [facility], repeat in [address] Prakash FAMILY HISTORY Problem Relation Age of Onset - Cancer Mother , lung and bone cancer - Alzheimer's Disease Father - GI Brother PUD Social History Tobacco Use - Smoking status: Never Smoker - Smokeless tobacco: Never Used Substance Use Topics - Alcohol use: Yes Comment: no use in 27 yearas - Drug use: Yes Comment: remote: diet pills ACTIVE PROBLEM LIST Slow Transit Constipation Fracture of Metacarpal Bone Essential Hypertension Hypothyroidism ALLERGIES Allergen Reactions - Cortisone Rash Vitals and Medications reviewed in [facility] system. PHYSICAL EXAMINATION: General appearance: Well appearing, alert, in no acute distress, well nourished. Neck: thyroid symmetric, normal size, no bruits Lungs: Lungs clear to auscultation. No wheezing, rhonchi, rales Heart: Normal rate and rhythm, without murmur, gallop, or rubs. Abdomen: Normal abdominal exam, Abdomen soft, non-tender. Bowel sounds normal. No masses Extremities: No edema or deformity Good capillary refill. Musculoskeletal: No joint swelling, deformity, or tenderness Peripheral pulses: Normal Neuro: no focal deficit. ASSESSMENT/PLAN: 1. Essential hypertension - ICD9: 401.9, ICD10: I10 (primary diagnosis) - good control - Recommended regular aerobic exercise. - Goal of BP <130/80 2.Cough -Mucinex 600 mg bid x 7 days -continue amox po Kirstin Escalante APRN.CNPA[facility]09-27-2021 NoteHNO ID: [id number] Author: Kirstin Escalante APRN.GROUP ACCOUNT DIRECTOR Service: ? Author Type: Nurse Practitioner Type: Progress Notes Filed: 12/04/2020 3:18 PM Note Text: Allan Lara is a 70 year old male seen today per nursing request.Continues C/o sinus congestion and pressure. Started on Claritin and Flonase. Reports some relief. VSSAF. Denies SOB or CP. Carolann po. Denies constipation. NAD. Concern(s) today include: Sinusitis/constipation His medications were reviewed today and his list is now up to date. He is compliant on taking his medications :Yes He is tolerating his medication(s) without side effects: Yes REVIEW OF SYSTEMS 10 Points review of system negative apart from HPI. PAST MEDICAL HISTORY Diagnosis Date - Bipolar 1 disorder (HCC) - Depression - DM II (diabetes mellitus, type II), controlled (HCC) - Hypertension - Hypothyroidism - Schizophrenia, schizo-affective (HCC) - Vitamin B12 deficiency PAST SURGICAL HISTORY Procedure Laterality Date - APPENDECTOMY HX - COLONOSCOPY 09/05/2017 repeat in [address] Prakash - EGD 09/05/2017 [facility], repeat in [address] Prakash FAMILY HISTORY Problem Relation Age of Onset - Cancer Mother , lung and bone cancer - Alzheimer's Disease Father - GI Brother PUD Social History Tobacco Use - Smoking status: Never Smoker - Smokeless tobacco: Never Used Substance Use Topics - Alcohol use: Yes Comment: no use in yearas - Drug use: Yes Comment: remote: diet pills ACTIVE PROBLEM LIST Slow Transit Constipation Fracture of Metacarpal Bone Essential Hypertension Hypothyroidism ALLERGIES Allergen Reactions - Cortisone Rash Vitals and Medications reviewed in [facility] system. PHYSICAL EXAMINATION: General appearance: Well appearing, alert, in no acute distress, well nourished. Neck: thyroid symmetric, normal size, no bruits Lungs: Lungs clear to auscultation. No wheezing, rhonchi, rales Heart: Normal rate and rhythm, without murmur, gallop, or rubs. Abdomen: Normal abdominal exam, Abdomen soft, non-tender. Bowel sounds normal. No masses Extremities: Rt hand swelling Good capillary refill. Musculoskeletal: No joint swelling, deformity, or tenderness Peripheral pulses: Normal Neuro: no focal deficit. ASSESSMENT/PLAN: 1. Subacute maxillary sinusitis - ICD9: 461.0, ICD10: J01.00 (primary diagnosis) - Will begin treatment with Amoxicillin for 7 days - The patient should also be given nasal saline gtts and claritin for the first 5-7 days of treatment. - Supportive care with plenty of fluids, rest, and analgesia prn. 2. Constipation, unspecified constipation type - ICD9: 564.00, ICD10: K59.00 -stable Kirstin Escalante APRN.CNPA[facility]09-20-2021 NoteHNO ID: [id number] Author: Kirstin Escalante APRN.GROUP ACCOUNT DIRECTOR Service: ? Author Type: Nurse Practitioner Type: Progress Notes Filed: 11/26/2020 8:46 PM Note Text: Allan Lara is a 70 year old male seen today per nursing request. C/o sinus congestion x 3 day. Started on Claritin and Flonase. Reports some relief. VSSAF. Denies SOB or CP. Carolann po. Denies constipation. Wt stable No behaviors reported. Med compliant NAD. Concern(s) today include: fatigue /Sinus congestion His medications were reviewed today and his list is now up to date. He is compliant on taking his medications :Yes He is tolerating his medication(s) without side effects: Yes REVIEW OF SYSTEMS 10 Points review of system negative apart from HPI. PAST MEDICAL HISTORY Diagnosis Date - Bipolar 1 disorder (HCC) - Depression - DM II (diabetes mellitus, type II), controlled (HCC) - Hypertension - Hypothyroidism - Schizophrenia, schizo-affective (HCC) - Vitamin B12 deficiency PAST SURGICAL HISTORY Procedure Laterality Date - APPENDECTOMY HX - COLONOSCOPY 09/05/2017 repeat in [address] Prakash - EGD 09/05/2017 [facility], repeat in [address] Prakash FAMILY HISTORY Problem Relation Age of Onset - Cancer Mother , lung and bone cancer - Alzheimer's Disease Father - GI Brother PUD Social History Tobacco Use - Smoking status: Never Smoker - Smokeless tobacco: Never Used Substance Use Topics - Alcohol use: Yes Comment: no use in 27 yearas - Drug use: Yes Comment: remote: diet pills ACTIVE PROBLEM LIST Slow Transit Constipation Fracture of Metacarpal Bone Essential Hypertension Hypothyroidism ALLERGIES Allergen Reactions - Cortisone Rash Vitals and Medications reviewed in [facility] system. PHYSICAL EXAMINATION: General appearance: Well appearing, alert, in no acute distress, well nourished. Neck: thyroid symmetric, normal size, no bruits Lungs: Lungs clear to auscultation. No wheezing, rhonchi, rales Heart: Normal rate and rhythm, without murmur, gallop, or rubs. Abdomen: Normal abdominal exam, Abdomen soft, non-tender. Bowel sounds normal. No masses Extremities: Rt hand swelling Good capillary refill. Musculoskeletal: No joint swelling, deformity, or tenderness Peripheral pulses: Normal Neuro: no focal deficit. ASSESSMENT/PLAN: 1. Sinus congestion - ICD9: 478.19, ICD10: R09.81 (primary diagnosis) -Clartin 10 mg po daily and flonase bid x 10 days 2. Fatigue, unspecified type - ICD9: 780.79, ICD10: R53.83 -CBCD BMP -tylenol prn -encourage po fluids and rest Summer Afaneh, HAT FORMER.GROUP ACCOUNT DIRECTOR summer, HAT FORMER.[facility] 11-21-2020 NoteHNO ID: [id number] Author: Jessi Austin MD Service: ? Author Type: Physician Type: Progress Notes Filed: 11/26/2020 8:16 PM Note Text: Allan Lara is a 70 year old male history of dm, hypothyroidism, and HTN. No chest pain, SOB or palpitations. No N/V/D. No fever, chills or sore throat. No dysuria. No bleeding. His medications were reviewed today and his list is now up to date. He is compliant on taking his medications :Yes He is tolerating his medication(s) without side effects: Yes REVIEW OF SYSTEMS 10 Points review of system negative apart from HPI. PAST MEDICAL HISTORY Diagnosis Date - Bipolar 1 disorder (HCC) - Depression - DM II (diabetes mellitus, type II), controlled (HCC) - Hypertension - Hypothyroidism - Schizophrenia, schizo-affective (HCC) - Vitamin B12 deficiency PAST SURGICAL HISTORY Procedure Laterality Date - APPENDECTOMY HX - COLONOSCOPY 09/05/2017 repeat in [address] Prakash - EGD 09/05/2017 [facility], repeat in [address] Prakash FAMILY HISTORY Problem Relation Age of Onset - Cancer Mother , lung and bone cancer - Alzheimer's Disease Father - GI Brother PUD Social History Tobacco Use - Smoking status: Never Smoker - Smokeless tobacco: Never Used Substance Use Topics - Alcohol use: Yes Comment: no use in 27 yearas - Drug use: Yes Comment: remote: diet pills ACTIVE PROBLEM LIST Slow Transit Constipation Fracture of Metacarpal Bone Essential Hypertension Hypothyroidism ALLERGIES Allergen Reactions - Cortisone Rash Vitals and Medications reviewed in [facility] system. PHYSICAL EXAMINATION: General appearance: Well appearing, alert, in no acute distress, well nourished. Neck: thyroid symmetric, normal size, no bruits Lungs: Lungs clear to auscultation. No wheezing, rhonchi, rales Heart: Normal rate and rhythm, without murmur, gallop, or rubs. Abdomen: Normal abdominal exam, Abdomen soft, non-tender. Bowel sounds normal. No masses Extremities: Rt hand swelling Good capillary refill. Musculoskeletal: No joint swelling, deformity, or tenderness Peripheral pulses: Normal Neuro: no focal deficit. ASSESSMENT/PLAN: 1. Essential hypertension - ICD9: 401.9, ICD10: I10 (primary diagnosis) stable 2. Hypothyroidism, unspecified type - ICD9: 244.9, ICD10: E03.9 stable 3. Diabetes mellitus without complication (HCC) - ICD9: 250.00, ICD10: E11.9 fair control Jessi Austin [facility]09-13-2021 NoteHNO ID: [id number] Author: Kirstin Escalante APRN.GROUP ACCOUNT DIRECTOR Service: ? Author Type: Nurse Practitioner Type: Progress Notes Filed: 11/16/2020 10:48 AM Note Text: Allan Lara is a 70 year old male seen today per nursing request. C/o sinus congestion x 1 day. Started on Claritin and Flonase. Reports some relief. VSSAF. Denies SOB or CP. Carolann po. Denies constipation. Wt stable No behaviors reported. Med compliant NAD. Concern(s) today include: Hypothyroidism/Sinus congestion His medications were reviewed today and his list is now up to date. He is compliant on taking his medications :Yes He is tolerating his medication(s) without side effects: Yes REVIEW OF SYSTEMS 10 Points review of system negative apart from HPI. PAST MEDICAL HISTORY Diagnosis Date - Bipolar 1 disorder (HCC) - Depression - DM II (diabetes mellitus, type II), controlled (HCC) - Hypertension - Hypothyroidism - Schizophrenia, schizo-affective (HCC) - Vitamin B12 deficiency PAST SURGICAL HISTORY Procedure Laterality Date - APPENDECTOMY HX - COLONOSCOPY 09/05/2017 repeat in [address] Prakash - EGD 09/05/2017 [facility], repeat in [address] Prakash FAMILY HISTORY Problem Relation Age of Onset - Cancer Mother , lung and bone cancer - Alzheimer's Disease Father - GI Brother PUD Social History Tobacco Use - Smoking status: Never Smoker - Smokeless tobacco: Never Used Substance Use Topics - Alcohol use: Yes Comment: no use in 27 yearas - Drug use: Yes Comment: remote: diet pills ACTIVE PROBLEM LIST Slow Transit Constipation Fracture of Metacarpal Bone Essential Hypertension Hypothyroidism ALLERGIES Allergen Reactions - Cortisone Rash Vitals and Medications reviewed in [facility] system. PHYSICAL EXAMINATION: General appearance: Well appearing, alert, in no acute distress, well nourished. Neck: thyroid symmetric, normal size, no bruits Lungs: Lungs clear to auscultation. No wheezing, rhonchi, rales Heart: Normal rate and rhythm, without murmur, gallop, or rubs. Abdomen: Normal abdominal exam, Abdomen soft, non-tender. Bowel sounds normal. No masses Extremities: Rt hand swelling Good capillary refill. Musculoskeletal: No joint swelling, deformity, or tenderness Peripheral pulses: Normal Neuro: no focal deficit. ASSESSMENT/PLAN: 1. Hypothyroidism, unspecified type - ICD9: 244.9, ICD10: E03.9 (primary diagnosis) -continue synthroid dise -monitor thyroid panle 2.Sinus congestion Claritin 10 mg daily x 10 days -Flonase daily x 10 days -encourage po fluids ,tylenol prn Kirstin Escalante APRN.[facility]09-09-2021 NoteHNO ID: [id number] Author: Kirstin Escalante APRN.GROUP ACCOUNT DIRECTOR Service: ? Author Type: Nurse Practitioner Type: Progress Notes Filed: 11/16/2020 4:08 PM Note Text: Allan Lara is a 70 year old male seen today for skilled visit. Denies n/v or abd pain. Med compliant . VSSAF. Denies SOB or CP. NAD. OT. Concern(s) today include: HTN/Schizoaffective His medications were reviewed today and his list is now up to date. He is compliant on taking his medications :Yes He is tolerating his medication(s) without side effects: Yes REVIEW OF SYSTEMS 10 Points review of system negative apart from HPI. PAST MEDICAL HISTORY Diagnosis Date - Bipolar 1 disorder (HCC) - Depression - DM II (diabetes mellitus, type II), controlled (HCC) - Hypertension - Hypothyroidism - Schizophrenia, schizo-affective (HCC) - Vitamin B12 deficiency PAST SURGICAL HISTORY Procedure Laterality Date - APPENDECTOMY HX - COLONOSCOPY 09/05/2017 repeat in [address] Prakash - EGD 09/05/2017 [facility], repeat in [address] Prakash FAMILY HISTORY Problem Relation Age of Onset - Cancer Mother , lung and bone cancer - Alzheimer's Disease Father - GI Brother PUD Social History Tobacco Use - Smoking status: Never Smoker - Smokeless tobacco: Never Used Substance Use Topics - Alcohol use: Yes Comment: no use in 27 yearas - Drug use: Yes Comment: remote: diet pills ACTIVE PROBLEM LIST Slow Transit Constipation Fracture of Metacarpal Bone Essential Hypertension Hypothyroidism ALLERGIES Allergen Reactions - Cortisone Rash Vitals and Medications reviewed in [facility] system. PHYSICAL EXAMINATION: General appearance: Well appearing, alert, in no acute distress, well nourished. Neck: thyroid symmetric, normal size, no bruits Lungs: Lungs clear to auscultation. No wheezing, rhonchi, rales Heart: Normal rate and rhythm, without murmur, gallop, or rubs. Abdomen: Normal abdominal exam, Abdomen soft, non-tender. Bowel sounds normal. No masses Extremities: No edema or deformity Good capillary refill. Musculoskeletal: No joint swelling, deformity, or tenderness Peripheral pulses: Normal Neuro: no focal deficit. ASSESSMENT/PLAN: 1. Essential hypertension - ICD9: 401.9, ICD10: I10 (primary diagnosis) - good control - Recommended regular aerobic exercise. - Goal of BP <130/80 2.Schizoaffective -med compliant -OT Kirstin Escalante APRN.[facility]08-30-2021 NoteHNO ID: [id number] Author: Kirstin Escalante APRN.BOAZ Service: ? Author Type: Nurse Practitioner Type: Progress Notes Filed: 11/03/2020 3:06 PM Note Text: Allan Lara is a 70 year old male seen today for skilled visit. . Renal mass noted on CT while in ED , f/u with nephro ordered. Med compliant . Denies SOB or CP. No n/v . NAD. Concern(s) today include: No c/o His medications were reviewed today and his list is now up to date. He is compliant on taking his medications :Yes He is tolerating his medication(s) without side effects: Yes REVIEW OF SYSTEMS 10 Points review of system negative apart from HPI. PAST MEDICAL HISTORY Diagnosis Date - Bipolar 1 disorder (HCC) - Depression - DM II (diabetes mellitus, type II), controlled (HCC) - Hypertension - Hypothyroidism - Schizophrenia, schizo-affective (HCC) - Vitamin B12 deficiency PAST SURGICAL HISTORY Procedure Laterality Date - APPENDECTOMY HX - COLONOSCOPY 09/05/2017 repeat in [address] Prakash - EGD 09/05/2017 [facility], repeat in [address] Prakash FAMILY HISTORY Problem Relation Age of Onset - Cancer Mother , lung and bone cancer - Alzheimer's Disease Father - GI Brother PUD Social History Tobacco Use - Smoking status: Never Smoker - Smokeless tobacco: Never Used Substance Use Topics - Alcohol use: Yes Comment: no use in 27 yearas - Drug use: Yes Comment: remote: diet pills ACTIVE PROBLEM LIST Slow Transit Constipation Fracture of Metacarpal Bone Essential Hypertension Hypothyroidism ALLERGIES Allergen Reactions - Cortisone Rash Vitals and Medications reviewed in [facility] system. PHYSICAL EXAMINATION: General appearance: Well appearing, alert, in no acute distress, well nourished. Neck: thyroid symmetric, normal size, no bruits Lungs: Lungs clear to auscultation. No wheezing, rhonchi, rales Heart: Normal rate and rhythm, without murmur, gallop, or rubs. Abdomen: Normal abdominal exam, Abdomen soft, non-tender. Bowel sounds normal. No masses Extremities: Rt hand swelling Good capillary refill. Musculoskeletal: No joint swelling, deformity, or tenderness Peripheral pulses: Normal Neuro: no focal deficit. ASSESSMENT/PLAN: 1. Constipation -stable on current regimen 2. Renal mass - ICD9: 593.9, ICD10: N28.89 (primary diagnosis) -found on CT incidentally during ED visit -f/u with nephrology Kirstin Escalante APRN.[facility]08-27-2021 NoteHNO ID: [id number] Author: Kirstin Escalante APRN.GROUP ACCOUNT DIRECTOR Service: ? Author Type: Nurse Practitioner Type: Progress Notes Filed: 11/02/2020 2:33 PM Note Text: Allan Lara is a 70 year old male seen today for skilled visit. Denies n/v or abd pain. Reports last BM 2 days ago. Med compliant . VSSAF. Denies SOB or CP. NAD. OT. Concern(s) today include: HTN/HLD His medications were reviewed today and his list is now up to date. He is compliant on taking his medications :Yes He is tolerating his medication(s) without side effects: Yes REVIEW OF SYSTEMS 10 Points review of system negative apart from HPI. PAST MEDICAL HISTORY Diagnosis Date - Bipolar 1 disorder (HCC) - Depression - DM II (diabetes mellitus, type II), controlled ([facility]) - Hypertension - Hypothyroidism - Schizophrenia, schizo-affective (HCC) - Vitamin B12 deficiency PAST SURGICAL HISTORY Procedure Laterality Date - APPENDECTOMY HX - COLONOSCOPY 09/05/2017 repeat in [address] Prakash - EGD 09/05/2017 [facility], repeat in [address] Prakash FAMILY HISTORY Problem Relation Age of Onset - Cancer Mother , lung and bone cancer - Alzheimer's Disease Father - GI Brother PUD Social History Tobacco Use - Smoking status: Never Smoker - Smokeless tobacco: Never Used Substance Use Topics - Alcohol use: Yes Comment: no use in 27 yearas - Drug use: Yes Comment: remote: diet pills ACTIVE PROBLEM LIST Slow Transit Constipation Fracture of Metacarpal Bone Essential Hypertension Hypothyroidism ALLERGIES Allergen Reactions - Cortisone Rash Vitals and Medications reviewed in [facility] system. PHYSICAL EXAMINATION: General appearance: Well appearing, alert, in no acute distress, well nourished. Neck: thyroid symmetric, normal size, no bruits Lungs: Lungs clear to auscultation. No wheezing, rhonchi, rales Heart: Normal rate and rhythm, without murmur, gallop, or rubs. Abdomen: Normal abdominal exam, Abdomen soft, non-tender. Bowel sounds normal. No masses Extremities: No edema or deformity Good capillary refill. Musculoskeletal: No joint swelling, deformity, or tenderness Peripheral pulses: Normal Neuro: no focal deficit. ASSESSMENT/PLAN: 1. Essential hypertension - ICD9: 401.9, ICD10: I10 (primary diagnosis) - good control - Recommended regular aerobic exercise. - Goal of BP <130/80 2. HLD -statin -lft/flp Kirstin Escalante APRN.[facility]08-20-2021 NoteHNO ID: [id number] Author: Kirstin Escalante APRN.BOAZ Service: ? Author Type: Nurse Practitioner Type: Progress Notes Filed: 10/25/2020 9:30 PM Note Text: Allan Lara is a 70 year ld male for possible exposure to COVID 19, R roommate tested positive on rapid . NO s/s Rapid negative. His medications were reviewed today and his list is now up to date. He is compliant on taking his medications :Yes He is tolerating his medication(s) without side effects: Yes REVIEW OF SYSTEMS 10 Points review of system negative apart from HPI. PAST MEDICAL HISTORY Diagnosis Date - Bipolar 1 disorder (HCC) - Depression - DM II (diabetes mellitus, type II), controlled ([facility]) - Hypertension - Hypothyroidism - Schizophrenia, schizo-affective (HCC) - Vitamin B12 deficiency PAST SURGICAL HISTORY Procedure Laterality Date - APPENDECTOMY HX - COLONOSCOPY 09/05/2017 repeat in [address] Prakash - EGD 09/05/2017 [facility], repeat in [address] Prakash FAMILY HISTORY Problem Relation Age of Onset - Cancer Mother , lung and bone cancer - Alzheimer's Disease Father - GI Brother PUD Social History Tobacco Use - Smoking status: Never Smoker - Smokeless tobacco: Never Used Substance Use Topics - Alcohol use: Yes Comment: no use in 27 yearas - Drug use: Yes Comment: remote: diet pills ACTIVE PROBLEM LIST Slow Transit Constipation Fracture of Metacarpal Bone Essential Hypertension Hypothyroidism ALLERGIES Allergen Reactions - Cortisone Rash Vitals and Medications reviewed in [facility] system. PHYSICAL EXAMINATION: General appearance: Well appearing, alert, in no acute distress, well nourished. Neck: thyroid symmetric, normal size, no bruits Lungs: Lungs clear to auscultation. No wheezing, rhonchi, rales Heart: Normal rate and rhythm, without murmur, gallop, or rubs. Abdomen: Normal abdominal exam, Abdomen soft, non-tender. Bowel sounds normal. No masses Extremities: No edema. Good capillary refill. Musculoskeletal: No joint swelling, deformity, or tenderness Peripheral pulses: Normal Neuro: no focal deficit. ASSESSMENT/PLAN: 1. Contact with and (suspected) exposure to covid-19 - ICD9: V01.79, ICD10: Z20.822 -Negative rapid -no s/s Kirstin Escalante APRN.[facility]-18-[facility]21 NoteHNO ID: [id number] Author: Kirstin Escalante APRN.BOAZ Service: ? Author Type: Nurse Practitioner Type: Progress Notes Filed: 10/25/2020 5:42 PM Note Text: Allan Lara is a 70 year old male seen today for skilled visit. Denies pain. Med compliant . VSSAF. Denies SOB or CP. No n/v . NAD. OT. Concern(s) today include: DM 2/BPH His medications were reviewed today and his list is now up to date. He is compliant on taking his medications :Yes He is tolerating his medication(s) without side effects: Yes REVIEW OF SYSTEMS 10 Points review of system negative apart from HPI. PAST MEDICAL HISTORY Diagnosis Date - Bipolar 1 disorder (HCC) - Depression - DM II (diabetes mellitus, type II), controlled (HCC) - Hypertension - Hypothyroidism - Schizophrenia, schizo-affective (HCC) - Vitamin B12 deficiency PAST SURGICAL HISTORY Procedure Laterality Date - APPENDECTOMY HX - COLONOSCOPY 09/05/2017 repeat in [address] Prakash - EGD 09/05/2017 [facility], repeat in [address] Prakash FAMILY HISTORY Problem Relation Age of Onset - Cancer Mother , lung and bone cancer - Alzheimer's Disease Father - GI Brother PUD Social History Tobacco Use - Smoking status: Never Smoker - Smokeless tobacco: Never Used Substance Use Topics - Alcohol use: Yes Comment: no use in 27 yearas - Drug use: Yes Comment: remote: diet pills ACTIVE PROBLEM LIST Slow Transit Constipation Fracture of Metacarpal Bone Essential Hypertension Hypothyroidism ALLERGIES Allergen Reactions - Cortisone Rash Vitals and Medications reviewed in [facility] system. PHYSICAL EXAMINATION: General appearance: Well appearing, alert, in no acute distress, well nourished. Neck: thyroid symmetric, normal size, no bruits Lungs: Lungs clear to auscultation. No wheezing, rhonchi, rales Heart: Normal rate and rhythm, without murmur, gallop, or rubs. Abdomen: Normal abdominal exam, Abdomen soft, non-tender. Bowel sounds normal. No masses Extremities: No edema or deformity Good capillary refill. Musculoskeletal: No joint swelling, deformity, or tenderness Peripheral pulses: Normal Neuro: no focal deficit. ASSESSMENT/PLAN: 1.DM 2 -metformin 1000mg bid 2. BPH -no urinary symptoms -stable on current tx Kirstin Escalante APRN.[facility]08-09-[facility]21 NoteHNO ID: [id number] Author: Kirstin Escalante APRN.BOAZ Service: ? Author Type: Nurse Practitioner Type: Progress Notes Filed: 10/19/2020 2:00 PM Note Text: Allan Lara is a 70 year old male seen today for skilled visit OT following. Rt hand/arm brace. Denies SOB or CP; Carolann po. Denies constipation. Wt stable No behaviors reported. Med compliant NAD. Concern(s) today include: Hypothyroidism/HLD His medications were reviewed today and his list is now up to date. He is compliant on taking his medications :Yes He is tolerating his medication(s) without side effects: Yes REVIEW OF SYSTEMS 10 Points review of system negative apart from HPI. PAST MEDICAL HISTORY Diagnosis Date - Bipolar 1 disorder (HCC) - Depression - DM II (diabetes mellitus, type II), controlled (HCC) - Hypertension - Hypothyroidism - Schizophrenia, schizo-affective (HCC) - Vitamin B12 deficiency PAST SURGICAL HISTORY Procedure Laterality Date - APPENDECTOMY HX - COLONOSCOPY 09/05/2017 repeat in [address] Prakash - EGD 09/05/2017 [facility], repeat in [address] Prakash FAMILY HISTORY Problem Relation Age of Onset - Cancer Mother , lung and bone cancer - Alzheimer's Disease Father - GI Brother PUD Social History Tobacco Use - Smoking status: Never Smoker - Smokeless tobacco: Never Used Substance Use Topics - Alcohol use: Yes Comment: no use in 27 yearas - Drug use: Yes Comment: remote: diet pills ACTIVE PROBLEM LIST Slow Transit Constipation Fracture of Metacarpal Bone Essential Hypertension Hypothyroidism ALLERGIES Allergen Reactions - Cortisone Rash Vitals and Medications reviewed in [facility] system. PHYSICAL EXAMINATION: General appearance: Well appearing, alert, in no acute distress, well nourished. Neck: thyroid symmetric, normal size, no bruits Lungs: Lungs clear to auscultation. No wheezing, rhonchi, rales Heart: Normal rate and rhythm, without murmur, gallop, or rubs. Abdomen: Normal abdominal exam, Abdomen soft, non-tender. Bowel sounds normal. No masses Extremities: Rt hand swelling Good capillary refill. Musculoskeletal: No joint swelling, deformity, or tenderness Peripheral pulses: Normal Neuro: no focal deficit. ASSESSMENT/PLAN: 1. Hypothyroidism, unspecified type - ICD9: 244.9, ICD10: E03.9 (primary diagnosis) -continue synthroid dise -monitor thyroid panle 2. HLD -continue statin -monitor FLP/LFT Kirstin Escalante APRN.[facility]08-03-2021 NoteHNO ID: [id number] Author: Kirstin Escalante APRN.GROUP ACCOUNT DIRECTOR Service: ? Author Type: Nurse Practitioner Type: Progress Notes Filed: 10/08/2020 3:50 PM Note Text: Allan Lara is a 70 year old male here today Per his request. C/o heartburn , prn mylanta ineffective. No n/v. Med compliant. VSSAF. Up indep. Concern(s) today include: HTN/GERD His medications were reviewed today and his list is now up to date. He is compliant on taking his medications :Yes He is tolerating his medication(s) without side effects: Yes REVIEW OF SYSTEMS 10 Points review of system negative apart from HPI. PAST MEDICAL HISTORY Diagnosis Date - Bipolar 1 disorder (HCC) - Depression - DM II (diabetes mellitus, type II), controlled (HCC) - Hypertension - Hypothyroidism - Schizophrenia, schizo-affective (HCC) - Vitamin B12 deficiency PAST SURGICAL HISTORY Procedure Laterality Date - APPENDECTOMY HX - COLONOSCOPY 09/05/2017 repeat in [address] Prakash - EGD 09/05/2017 [facility], repeat in [address] Prakash FAMILY HISTORY Problem Relation Age of Onset - Cancer Mother , lung and bone cancer - Alzheimer's Disease Father - GI Brother PUD Social History Tobacco Use - Smoking status: Never Smoker - Smokeless tobacco: Never Used Substance Use Topics - Alcohol use: Yes Comment: no use in 27 yearas - Drug use: Yes Comment: remote: diet pills ACTIVE PROBLEM LIST Slow Transit Constipation Fracture of Metacarpal Bone Essential Hypertension Hypothyroidism ALLERGIES Allergen Reactions - Cortisone Rash Vitals and Medications reviewed in [facility] system. PHYSICAL EXAMINATION: General appearance: Well appearing, alert, in no acute distress, well nourished. Neck: thyroid symmetric, normal size, no bruits Lungs: Lungs clear to auscultation. No wheezing, rhonchi, rales Heart: Normal rate and rhythm, without murmur, gallop, or rubs. Abdomen: Normal abdominal exam, Abdomen soft, non-tender. Bowel sounds normal. No masses Extremities: No edema. Good capillary refill. Musculoskeletal: No joint swelling, deformity, or tenderness Peripheral pulses: Normal Neuro: no focal deficit. ASSESSMENT/PLAN: 1. Essential hypertension - ICD9: 401.9, ICD10: I10 (primary diagnosis) - good control - Continue current medication(s) - Recommended regular aerobic exercise. - Recommend home blood pressure monitoring, to bring results in on next visit - Goal of BP <130/80 2.GERD - protonix 20 mg daily summer.[facility]05-19-2021 History of Present illness Narrative* Kasie Suero RT(R) - 07/22/2020 9:30 AM EDT Radiology Service Progress Note PATIENT NAME: Allan Lara DATE OF SERVICE: July 22, 2020 TIME: 10:11 AM PATIENT IDENTITY VERIFICATION COMPLETED USING TWO (2) IDENTIFIERS: Name and Date of confirmedby patient verbally. FALL SCREENING: Has the patient had 2 falls in the last year or 1 fall with injury or currently using an Ambulatory Assistive Device (Walker, Cane, Wheelchair, Crutches, etc.)? No PATIENT GENDER DATA: Male PATIENT RELEVANT IMPLANT DATA REVIEWED: Not Applicable RADIOLOGY DEPARTMENT: General X-ray: Exam(s) Completed: Upper Extremity X- Ray(s): Hand, right PERIPHERAL IV DATA: Not applicable SIGNED BY: XAVIER Jaeger) July 22, 2020 10:11 AM [facility] Diagnosis Renal mass- Primary Unspecified disorder of kidney and ureter Muscle weakness (generalized) documented in this encounter [facility]* Diagnosis Essential hypertension- Primary Unspecified essential hypertension Weight loss Loss of weight [facility] Diagnosis Hypothyroidism, unspecified type- Primary Schizoaffective disorder, bipolar type (HCC) Schizoaffective disorder, unspecified condition [facility]* Diagnosis Stage 3 chronic kidney disease, unspecified whether stage 3a or 3b CKD (HCC)- Primary Constipation, unspecified constipation type [facility]* Diagnosis Renal mass- Primary Unspecified disorder of kidney and ureter Muscle weakness (generalized) documented in this encounter [facility]* Diagnosis Essential hypertension- Primary Unspecified essential hypertension Rhinorrhea Other diseases of nasal cavity and sinuses documented in this encounter [facility] note* Diagnosis Diabetes mellitus without complication (HCC)- Primary Type II or unspecified type diabetes mellitus without mention of complication, not stated as uncontrolled Constipation, unspecified constipation type [facility]* Diagnosis Diabetes mellitus without complication (HCC)- Primary Type II or unspecified type diabetes mellitus without mention of complication, not stated as uncontrolled Hyperlipidemia, unspecified hyperlipidemia type documented in this encounter [facility]* Diagnosis Diabetes mellitus without complication (HCC)- Primary Type II or unspecified type diabetes mellitus without mention of complication, not stated as uncontrolled Hyperlipidemia, unspecified hyperlipidemia type documented in this encounter [facility]* Diagnosis Essential hypertension- Primary Unspecified essential hypertension Heartburn [facility]* Diagnosis Calculus of gallbladder with acute on chronic cholecystitis without obstruction- Primary Diarrhea, unspecified type [facility]* Diagnosis Essential hypertension- Primary Unspecified essential hypertension Renal mass Unspecified disorder of kidney and ureter documented in this encounter [facility]* Diagnosis Onset Date Resolution Status Acute hypotension acute Acute kidney injury acute COVID acute Diarrhea acute Fall acute Gastroenteritis acute Head injury acute Laceration of eyebrow, left acute Leukocytosis acute Sepsis associated hypotension acute Diabetes mellitus, type II c [facility] Work Phone: Evaluation note* Diagnosis Onset Date Resolution Status Acute hypotension resolved Acute kidney injury resolved Diarrhea resolved Gastroenteritis resolved Head injury resolved Laceration of eyebrow, left resolved Leukocytosis resolved Sepsis associated hypotension resolved [facility] Work Phone: evaluation note* Diagnosis Pain Generalized pain [facility]. Verma [facility] July 04, 2022 6:02am Note Date/Time July 04, 2022 4:37am [facility] System Medical Records Department [address] [place] [address] H&P Exam - Hospitalist 07/04/22 0436 MR#: [id number] Acct: [id number] Name: ALLAN LARA Rep #:[id number] : [id number] 71 From: Sreekanth Verma MD PCP: Dr. Simone Messer MD Status:ADM I N Location: ICU ICU01-1 HPI - General General Date of Admission: 07/04/22 Date of Service: 07/04/22 Chief Complaint: Fall HPI Narrative ALLAN LARA, is a 71 M with a significant history of Schizoaffective disorder; delusional disorder; hypothyroidism; hypertension; and neoplasm of right kidney who presents from [facility] with a fall. Also patient sustained laceration of his left eyelid. At the emergency department patient was noted to have loose runny stools. He reported that he has had diarrhea for about 1 week. Patient admits to abdominal pain. Also reportedly a day before presentation patient was diagnosed with COVID. History is limited as patient does not provide answers to all questions. History was taken for emergency department doctor who discussed the case primarily with [facility]. [facility] Medical History (Updated 07/04/22 @ 05:[address] 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 Hypertension Hypothyroidism Neoplasm of uncertain behavior of right kidney Unspecified dementia, unspecified severity, without behavioral disturbance, psychotic disturbance, mood disturbance, and anxiety Home Medications amlodipine 10 mg tablet 10 mg PO QHS BP 07/30/17 [History Last Taken 07/11/19] levothyroxine 25 mcg tablet 50 mcg PO DAILY THYROID 07/30/17 [History Last Taken 07/11/19] tamsulosin 0.4 mg capsule 0.4 mg PO QHS PROSTATE 07/30/17 [History Last Taken 07/11/19] atorvastatin 10 mg tablet 10 mg PO QHS 07/04/22 [History Last Taken Unknown] cholecalciferol (vitamin D3) 125 mcg (5,000 unit) tablet (Vitamin D3) 125 mcg PODAILY 07/04/22 [History Last Taken Unknown] clozapine 100 mg tablet 100 mg PO DAILY 07/04/22 [History Last Taken Unknown] clozapine 200 mg tablet 200 mg PO QHS 07/04/22 [History Last Taken Unknown] fluoxetine 10 mg capsule (Prozac) 10 mg PO DAILY 07/04/22 [History Last Taken Unknown] ipratropium 0.5 mg-albuterol 3 mg (2.5 mg base)/3 mL nebulization soln 3 ml inhalation Q4H PRN PRN Wheezing 07/04/22 [History Last Taken Unknown] omeprazole 20 mg capsule,delayed release 20 mg PO DAILY 07/04/22 [History Last Taken Unknown] Allergy/AdvReac Type Severity Reaction Status Date / Time No Known Allergies Allergy Verified 07/28/19 19:39 unable to obtain (Patient is unable to provide answers) unable to obtain (Patient is unable to provide answers.) Social History Smoking Status: Never smoker ROS Review of Systems ROS Unobtainable: other Details: Due to psychiatry disorder Vital Signs Vital Signs Vital Signs: 07/04/22 02:33 07/04/22 02:36 07/04/22 02:58 Temperature 98.9 F Temperature Source Temporal Pulse Rate 119 H Respiratory Rate 20 H Respiratory Effort Normal Respiratory Depth Normal Respiratory Pattern Normal Blood Pressure 88/59 L Blood Pressure Mean 68 Pulse Ox 93 93 Oxygen Delivery Method Room Air Room Air Room Air 07/04/22 02:53 Temperature 97.8 F Temperature Source Temporal Pulse Rate 122 H Respiratory Rate 20 H Respiratory Effort Respiratory Depth Respiratory Pattern Blood Pressure 91/56 L Blood Pressure Mean 67 Pulse Ox 93 Oxygen Delivery Method Room Air Weight Weight: 72.8 kg Body Mass Index (BMI) 23.7 Physical Exam Narrative Physical exam: General: Patient with unkempt smith. Head: Normocephalic, atraumatic, no tenderness Eyes: Vision is grossly intact. EOMI ENT, no trauma, moist mucous membranes, no rhinorrhea Neck: Nontender, No thyromegaly. CVS: Regular rate and rhythm. S1-S2 present. No murmur, gallop or rub. Respiratory : clear to auscultation bilaterally, chest wall nontender Abdomen: Soft, tender, nondistended, normal bowel sounds, no masses : Deferred Back: Nontender, no CVA tenderness, no midline spinal tenderness, deformities, step-offs Extremities: Nontender full range of motion, no trauma Skin: Normal color, no trauma, abrasions Neuro: Alert, oriented, cranial nerves II through XII grossly intact. Psychiatry: Normal mood. Normal affect. Not depressed. Not anxious. Results Lab / Micro Data Result Diagrams: 07/04/22 02:40 07/04/22 02:40 Labs: Laboratory Results - last 24 hr 07/04/22 02:40: WBC 24.4 H, RBC 5.39, Hgb 15.9, Hct 49.5, MCV 91.8, MCH 29.5, MCHC 32.1, RDW Std Deviation 42.8, RDW Coeff of Kirk 12.8, Plt Count 356, MPV 10.7, Immature Gran % (Auto) 1.300 H, Neut % (Auto) 91.2 H, Lymph % (Auto) 3.6 L, [place] % (Auto) 3.7, Eos % (Auto) 0.0, Baso % (Auto) 0.2, Absolute Neuts (auto) 22.2 H, Absolute Lymphs (auto) 0.87, Nucleated RBC % 0 07/04/22 02:40: PT 12.8, INR 1.0, APTT 23.7 L 07/04/22 02:40: Sodium 140, Potassium 4.6, Chloride 104, Carbon Dioxide 27.0, Anion Gap 9, BUN 23 H, Creatinine 1.91 H, Estim Creat Clear Calc 34.45, Est GFR (MDRD) Af Amer 45 L, Est GFR (MDRD) Non-Af 37 L, BUN/Creatinine Ratio 12.0, Glucose 212 H, Calcium 9.7, Total Bilirubin 0.60, AST 13 L, ALT 20, Alkaline Phosphatase 75, Troponin I High Sens 6, Total Protein 7.5, Albumin 3.6, Globulin3.9, Albumin/Globulin Ratio 0.9 07/04/22 02:40: Lactic Acid 2.9 H* 07/04/22 03:08: Urine Color Yellow, Urine Clarity Clear, Urine pH 5.0, Ur Specific [place] 1.015, Urine Protein 15 H, Urine Glucose (UA) Normal, Urine Ketones Negative, Urine Occult Blood Negative, Urine Nitrite Negative, Urine Bilirubin Negative, Urine Urobilinogen 1 H, Ur Leukocyte Esterase Negative, Urine RBC 0 SEEN, Urine WBC 0- 5 SEEN, Ur Squamous Epith Cells 0 SEEN, Urine Bacteria 1+, Hyaline Casts 0-5 SEEN, Urine Mucus 0 SEEN Rhythm Strip Rhythm Strip: Sinus Tach Rate: 122 Ectopy: None Radiology Impression Chest X-Ray 07/04/22 02:46 IMPRESSION: No radiographic evidence of acute cardiopulmonary disease. Electronically Signed: Luis Carlos Epperson MD at 3:32 EDT , Assessment & Plan Assessment/Plan (1) Sepsis associated hypotension: (2) Gastroenteritis: (3) Acute hypotension: (4) Acute kidney injury: (5) Diabetes mellitus, type II: PLAN: Plan Sepsis secondary gastroenteritis The patient presented with sepsis due to (gastroenterology) with acute sepsis related organ dysfunction as evidenced by (lactic acidosis). SIRS criteria: Heart rate more than 90 WBC more than 12,000 (in patient's case is white count was 24,400). Also noted to have bandemia. organ dysfunction: SBP less than 90 or MAP less than 65 Lactic acid of more than 2 (lactic acid on presentation was 2.9) Impression of chest x-ray by radiology: No radiographic evidence of acute cardiopulmonary disease. Interpretation of chest x-ray by hospitalist: Agrees with radiology interpretation. Discussed with emergency department doctor to start patient on ceftriaxone and Flagyl. Ceftriaxone and Flagyl continued. Received 2 L of normal saline in the emergency department. We will continue patient on normal saline at 100mL per hour by which in 2 hours patient would have received a little more than 30 MLS per kg per septic shock protocol. CT of abdomen and pelvis ordered to the emergency department, follow. Trend CBC and lactic acid. Enteropathogenic regimen and C. difficile ordered. Fall with laceration Received tetanus injection in the emergency department. PT and OT to work with patient for balance and training and make recommendations. Vitamin D level ordered. Case management consulted HAYLIE His creatinine presentation was 1.91. Last creatinine in hospital system was 2019. At that time his creatinine was normal. IV fluids as above. Trend BMP. Avoid nephrotoxic's. Acute hypotension Secondary to sepsis. Hold home amlodipine. Trend blood pressures. COVID-19 infection No respiratory symptoms. Enhanced droplet precautions. Diabetes mellitus Blood glucoses slightly elevated. Not on outpatient hypoglycemic regimen. Check A1c. Trend BMP. DVT prophylaxis Subcutaneous Lovenox ordered. Charges/Coding Visit Charges Inpatient E&M: 22801 Init Hosp L3 07/04/22 0602 <Electronically signed by Sreekanth Verma MD> Cosigner Signature (if applicable): CC: Dr. Sreekanth Verma MD; Dr. Simone Messer MD~ Signed [facility] Work Phone: History of Present illness Narrative* incidental finding or renal mass * has renal cysts and calculi * enlarged prostate on tamsulosin * resides in [facility] * history of abn CT scan without contrast showing: * 1. Hyperattenuating mass in the upper pole of left kidney (1.6 cm x * 1.2 cm; 77 HU) could represent a complicated/hemorrhagic cyst or solid papillary renal cell carcinoma. * 2. Nonobstructing 5 mm right lower pole renal calculus. * returns today with repeat imaging * has no changes in voiding: on tamsulosin twice per day * no gross hematuria, dysuria, urgency, Jaclyn or straining * NTF x 1 * BM adeq * no pain * appetite ok * Past medical/surgical history * At risk for falls * Auditory hallucinations * COVID-19 * Dementia * Diabetes mellitus * HTN (hypertension) * Hyperlipemia * Kidney neoplasm * Schizoaffective disorder * Allergies - no known drug allergies * Family History: * Mother lung cancer * daughter age 7, defects * Social History * resides in [facility] in [place] * International Prostate Symptom Score (I-PSS) * I-PSS Total Score: 2 * Quality of Life Score: 1 [facility] Work Phone: Summary Purpose Family History No Family History Records FoundUnknown Family Member Name Dates Details Family history of lung cance r: Mother(V16.1, Z80.1) Status:Active Unknown Family Member Name Dates Details Family history of lung cance r: Mother(V16.1, Z80.1) Status:Active Unknown Family Member Name Dates Details Family history of lung cance r: Mother(V16.1, Z80.1) Status:Active Unknown Family Member Name Dates Details Family history of lung cance r: Mother(V16.1, Z80.1) Status:Active Unknown Family Member Name Dates Details Family history of lung cance r: Mother(V16.1, Z80.1) Status:Active Unknown Family Member Name Dates Details Family history of lung cance r: Mother(V16.1, Z80.1) Status:Active Advance Directives No Advanced Directives Records FoundDocuments on File Type Date Recorded Patient Jack Spooler Tender Expl anation Advance Directive(s) 09/05/2017 7:39 AM Advance Directive Response Recorded Date/ Time Name of Medical Power of Rope Twisting Machine Operator jason pelon July 04, 2022 2:52am Living Will No July 04, 2022 2: 52am Power of Rope Twisting Machine Operator Yes July 04, 2022 2:52am Chief Complaint * Renal Mass * KAROLYN Rendon Line [phone] * Office Line [phone] - use only for off hours or emergency contact Chief Complaint and Reason for Visit Chief Complaint SEPSIS 2NDARY TO GAS TROENTERITIS Reason for Visit Acute hypotension Acute kidney injury COVID Diarrhea Fall Gastroenteritis Head injury Laceration of eyebrow, left Leukocytosis Sepsis associated hypotension Diabetes mellitus, type II Chief Complaint SEPSIS 2NDARY TO GAS TROENTERITIS SEPSIS 2NDARY TO GASTROENTERITIS SEPSIS 2NDARY TO GASTROENTERITIS SEPSIS 2NDARY TO GASTROENTERITIS SEPSIS 2NDARY TO GASTROENTERITIS Reason for Visit Acute hypotension Acute kidney injury COVID Diarrhea Fall Gastroenteritis Head injury Laceration of eyebrow, left Leukocytosis Sepsis associated hypotension Diabetes mellitus, type II Chief Complaint SEPSIS 2NDARY TO GAS TROENTERITIS SEPSIS 2NDARY TO GASTROENTERITIS SEPSIS 2NDARY TO GASTROENTERITIS SEPSIS 2NDARY TO GASTROENTERITIS SEPSIS 2NDARY TO GASTROENTERITIS HX RENAL CYSTS-EVAL Reason for Visit Acute hypotension Acute kidney injury Diarrhea Gastroenteritis Head injury Laceration of eyebrow, left Leukocytosis Sepsis associated hypotension Additional Source Comments (unrecognized sect ion and content) No Status Records FoundNo Status Records FoundNo Status Records FoundNo Status Records FoundNo Status Records FoundNo Status Records FoundNo Status Records FoundNo Status Records Found INFORMATION SOURCE (unrecogn ized section and content) DATE CREATED AUTHOR 01/27/2020 [facility] DATE CREATED AUTHOR AUTHOR'S ORGANIZ ATION 03/19/2021 [facility] DATE CREATED AUTHOR AUTHOR'S ORGANIZ ATION 04/22/2021 [facility] DATE CREATED AUTHOR AUTHOR'S ORGANIZ ATION 05/11/2021 [employer] DATE CREATED AUTHOR AUTHOR'S ORGANIZ ATION 09/21/[address] [facility] DATE CREATED AUTHOR AUTHOR'S ORGANIZ ATION 10/05/2021 [facility] DATE CREATED AUTHOR AUTHOR'S ORGANIZ ATION 11/11/2021 [facility] DATE CREATED AUTHOR AUTHOR'S ORGANIZ ATION 01/15/2025 [facility] Source Comments (unrecognize d section and content) In the event this informatio n is protected by the Federal Confidentiality of Alcohol and Drug Abuse Patient Records regulations: The Federal rules restrict any use of the information to criminally investigate or prosecute any alcohol or drug abuse patient.[facility] the event this information is protected by the Federal Confidentiality of Alcohol and Drug Abuse Patient Records regulations: The Federal rules restrict any use of the information to criminally investigate or prosecute any alcohol or drug abuse patient.[facility] Hospital[facility] the event this information is protected by the Federal Confidentiality of Alcohol and Drug Abuse Patient Records regulations: The Federal rules restrict any use of the information to criminally investigate or prosecute any alcohol or drug abuse patient.[facility] HospitalIn the event this information is protected by the Federal Confidentiality of Alcohol and Drug Abuse Patient Records regulations: The Federal rules restrict any use of the information to criminally investigate or prosecute any alcohol or drug abuse patient.[facility] HospitalIn the event this information is protected by the Federal Confidentiality of Alcohol and Drug Abuse Patient Records regulations: The Federal rules restrict any use of the information to criminally investigate or prosecute any alcohol or drug abuse patient.[facility] HospitalIn the event this information is protected by the Federal Confidentiality of Alcohol and Drug Abuse Patient Records regulations: The Federal rules restrict any use of the information to criminally investigate or prosecute any alcohol or drug abuse patient.[facility] HospitalIn the event this information is protected by the Federal Confidentiality of Alcohol and Drug Abuse Patient Records regulations: The Federal rules restrict any use of the information to criminally investigate or prosecute any alcohol or drug abuse patient.[facility] HospitalIn the event this information is protected by the Federal Confidentiality of Alcohol and Drug Abuse Patient Records regulations: The Federal rules restrict any use of the information to criminally investigate or prosecute any alcohol or drug abuse patient.[facility] HospitalIn the event this information is protected by the Federal Confidentiality of Alcohol and Drug Abuse Patient Records regulations: The Federal rules restrict any use of the information to criminally investigate or prosecute any alcohol or drug abuse patient.[facility] HospitalIn the event this information is protected by the Federal Confidentiality of Alcohol and Drug Abuse Patient Records regulations: The Federal rules restrict any use of the information to criminally investigate or prosecute any alcohol or drug abuse patient.[facility] HospitalIn the event this information is protected by the Federal Confidentiality of Alcohol and Drug Abuse Patient Records regulations: The Federal rules restrict any use of the information to criminally investigate or prosecute any alcohol or drug abuse patient.[facility] HospitalIn the event this information is protected by the Federal Confidentiality of Alcohol and Drug Abuse Patient Records regulations: The Federal rules restrict any use of the information to criminally investigate or prosecute any alcohol or drug abuse patient.[facility] HospitalIn the event this information is protected by the Federal Confidentiality of Alcohol and Drug Abuse Patient Records regulations: The Federal rules restrict any use of the information to criminally investigate or prosecute any alcohol or drug abuse patient.[facility] HospitalIn the event this information is protected by the Federal Confidentiality of Alcohol and Drug Abuse Patient Records regulations: The Federal rules restrict any use of the information to criminally investigate or prosecute any alcohol or drug abuse patient.[facility] HospitalIn the event this information is protected by the [facility] Confidentiality of Alcohol and Drug Abuse Patient Records regulations: The Federal rules restrict any use of the information to criminally investigate or prosecute any alcohol or drug abuse patient.[facility] HospitalIn the event this information is protected by the Federal Confidentiality of Alcohol and Drug Abuse Patient Records regulations: The Federal rules restrict any use of the information to criminally investigate or prosecute any alcohol or drug abuse patient.[facility] Care Teams (unrecognized sec tion and content) Flame Degreaser Relationship Specialty Start Date End Date Mel Rolleingris Antonio [address] [place] [address] PCP - General Family Practice 09/05/17 Flame Degreaser Relationship Specialty Start Date End Date Loretta Rolle [address] [place] [address] PCP - General Family Practice 09/05/17 Flame Degreaser Relationship Specialty Start Date End Date Loretta Rolle Paco [address] [place] [address] PCP - General Family Practice 09/05/17 Flame Degreaser Relationship Specialty Start Date End Date Loretta Rolle[address] [place] [address] PCP - General Family Practice 09/05/17 Team Status: Active Member Role Status Dates [facility] Family Provider Active Dr. Simone Messer MD Primary Care Provider Active Team Status: Active Member Role Status Dates Dr. Simone Messer MD Primary Care Provider Active Dr. Mati Shaikh MD Emergency Provider Active Dr. Sreekanth Verma MD Admit Provider, Attending Pro vider Active Dr. Donald Valdes MD Other Provider Active Team Status: Active Member Role Status Dates Dr. Simone Messer MD Primary Care Provider Active Dr. Mati Shaikh MD Emergency Provider Active Dr. Sreekanth Verma MD Admit Provider, Other Provide r Active Dr. Donald Valdes MD Other Provider Active Dr. Peyton Crawford MD Other Provider Active Dr. Jerald Levine DO Attending Provider Active Team Status: Active Member Role Status Dates Dr. Simone Messer MD Primary Care Provider Active Dr. Mati Shaikh MD Emergency Provider Active Dr. Sreekanth Verma MD Admit Provider, Other Provide r Active Dr. Donald Valdes MD Other Provider Active Dr. Peyton Crawford MD Attending Provider, Other Prov ider Active Team Status: Active Member Role Status Dates Dr. Simone Messer MD Primary Care Provider Active Dr. Mati Shaikh MD Emergency Provider Active Dr. Sreekanth Verma MD Admit Provider, Other Provide r Active Dr. Peyton Crawford MD Attending Provider, Other Prov ider Active Dr. Donald Valdes MD Other Provider Active Team Status: Inactive Member Role Status Dates Dr. Simone Messer MD Primary Care Provider Active Dr. Mati Shaikh MD Emergency Provider Active Dr. Sreekanth Verma MD Admit Provider, Other Provide r Active Dr. Peyton Crawford MD Attending Provider Active Dr. Donald Valdes MD Other Provider Active Team Status: Active Member Role Status Dates Dr. Simone Messer MD Primary Care Provider Active Dr. Mati Shaikh MD Emergency Provider Active Dr. Sreekanth Verma MD Admit Provider, Other Provide r Active Dr. Donald Valdes MD Other Provider Active Dr. Peyton Crawford MD Referring Provider, Other Prov ider Active Dr. Jerald Levine DO Attending Provider Active Team Status: Inactive Member Role Status Dates Dr. Simone Messer MD Primary Care Provi blanca, Attending Provider, Referring Provider Active Flame Degreaser Relationship Specialty Start Date End Date King Loretta Paco, GROUP ACCOUNT DIRECTOR [address] [place] [address] PCP - General Family Medicine 09/05/17 Goals (unrecognized section and content) Goals may be documented in a n alternate section Reason for Visit (unrecogniz ed section and content) Reason Comments Radio Gen RMP FOR RECORDS PERTAINING TO PATIENTS WHO ARE OR HAVE BEEN ENROLLED IN A CHEMICAL DEPENDENCY/SUBSTANCEABUSE PROGRAM, SOME INFORMATION MAY BE OMITTED. This clinical summary was aggregated from multiple sources. Caution should be exercised in using it in the provision of clinical care. This summary normalizes information from multiple sources, and as a consequence, information in this document may materially change the coding, format and clinical context of patient data. In addition, data may be omitted in some cases. CLINICAL DECISIONS SHOULD BE BASED ON THE PRIMARY CLINICAL RECORDS. [employer] provides no warranty or guarantee of the accuracy or completeness of information in this document.
[2025-01-15 21:55] LABS: Anion Gap 14 (5-15); BUN 18 mg/dL (4-19); BUN/Creat Ratio 15.9 RATIO (10-20); Calcium,Total 9.5 mg/dL (7.6-11.0); Carbon Dioxide 22.7 mmol/L (21.0-32.0); Chloride 104 mmol/L (98-108); Estimated Creatinine Clearance 56.62 ml/min (50-250); Glucose 138 mg/dL (70-99); Potassium 4.1 mmol/L (3.3-5.1)
--- NOTE | 2025-01-15 22:10 | RAD_ITS ---
PROCEDURE: CHEST 1 VIEW (PORTABLE) 01/15/2025 REASON FOR EXAM: SHORTNESS OF BREATH TECHNIQUE: Frontal view of the chest. COMPARISON: None available. FINDINGS: Hardware: None Heart: The heart size is normal. Lungs: The lungs are clear. No pneumothorax or pleural effusion. Bones: The bones are unremarkable. RAD/Chest 1 View (Portable) IMPRESSION: No Acute Findings. Reading [facility]
--- NOTE | 2025-01-15 22:58 | ED.RN ---
Called guardian for consent to treat, per voicemail instructions called emergency number for consent to treat. Spoke to automotive sales professional staff who took information and state they will contact guardian and have her call back to give consent.
[2025-01-16 00:20] VITALS: BP 108/73; PULSE 112; RESP 32; O2SAT 95
[2025-01-16 01:00] VITALS: BP 111/63; PULSE 111; RESP 34; O2SAT 95
== END 2025-01-16 01:11 | disposition skilled nursing facility (03) ==
PROVIDERS: Emergency Provider Emergency Medicine; PCP Family Medicine; Visit Provider Emergency Medicine
DX: F03.911 Unspecified dementia, unspecified severity, with agitation (principal); R06.02 Shortness of breath; I10 Essential (primary) hypertension; Z79.899 Other long term (current) drug therapy
CPT/HCPCS: 71045; 80048; 82803; 85025; 93005; 96374; 99285; A4216

== ENCOUNTER 2025-02-04 15:29 | Inpatient (IN) | payer MEDICARE, MEDICAID, SELFPAY ==
[2025-02-04] VITALS (10 sets, daily range): BP systolic 100–147; BP diastolic 54–120; PULSE 69–105; RESP 16–35; TEMP 36.5–36.6; O2SAT 98–100; BMI 20.9
--- NOTE | 2025-02-04 15:36 | EKG12_ITS ---
Test Reason : SOB Blood Pressure : */* mmHG Vent. Rate : 101 BPM Atrial Rate : 101 BPM P-R Int : 160 ms QRS Dur : 94 ms QT Int : 400 ms P-R-T Axes : 67 -65 62 degrees QTcB Int : 518 ms Sinus tachycardia Left anterior fascicular block Cannot rule out Inferior infarct , age undetermined Abnormal ECG baseline artifact Confirmed by Cory Deluna ([id number]), adjunct philosophy faculty DORA BRUNSON ([id number]) on 02/05/2025 8:47:32 AM Referred By: Confirmed By: Cory Deluna
--- NOTE | 2025-02-04 15:38 | EX.ED.DYSGE1 ---
HPI History of Present Illness Chief Complaint: Shortness of Breath Detail of Chief Complaint: Shortness of breath and agitation Informant: EMS and SNF Limited: dementia Onset/Context/Timing Onset: - (Apparently today) Context: - (Unknown) Timing: - ( unknown) Quality: Shortness of breath and cough Location: Respiratory Current Severity: Unable to determine Maximum Severity: Unable to determine Worsened by: Unable to determine Relieved by: Unable to determine Associated Symptoms Associated Symptoms: Unable to determine Narrative Narrative: patient apparently had vomiting since there is food particles on his mustache and smith. Patient is on 2 L of oxygen by nasal cannula. He was hypoxic when squad arrived since he did not have his oxygen. He is not cooperative. This is probably due to his significant dementia. [facility] he is full code. There is a dispute on whether that members want him on hospice versus full code. Unable to get any history from him other than his name endorses shortness of breath and cough. He denies everything else and he is not able to quantitate quantitate anything. 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 07/04/22 Unknown History mcg (5,000 unit) tablet (Vitamin D3) clozapine 200 mg tablet 100 mg PO QHS anxiety 07/04/22 Unknown History fluoxetine 10 mg capsule (Prozac) 20 mg PO DAILY anxiety 07/04/22 Unknown History ipratropium 0.5 mg-albuterol 3 mg 3 ml inhalation Q4H PRN PRN 07/04/22 Unknown History (2.5 mg base)/3 mL nebulization Wheezing soln omeprazole 20 mg capsule,delayed 20 mg PO DAILY gerd 07/04/22 Unknown History release lorazepam 0.5 mg tablet 0.5 mg PO DAILY anxiety 03/19/24 Unknown History lorazepam 1 mg tablet 1 mg PO BID anxiety 03/19/24 Unknown History clonazepam 0.5 mg tablet 0.5 mg PO TID 01/03/25 Unknown History cyanocobalamin (vitamin B-12) 1,000 mcg PO DAILY 01/03/25 Unknown History 1,000 mcg capsule fluoxetine 20 mg capsule 20 mg PO DAILY 01/03/25 Unknown History trazodone 100 mg tablet 100 mg PO QHS PRN insomnia 01/03/25 Unknown History amoxicillin 875 mg-potassium 1 tab PO BID 3 days #6 tabs 01/07/25 Unknown Rx clavulanate 125 mg tablet bisacodyl 10 mg rectal suppository 10 mg MN DAILY #0 ea 01/07/25 Unknown Rx sennosides 8.6 mg-docusate sodium 2 tab PO BID #0 tabs 01/07/25 Unknown Rx 50 mg tablet (Stimulant Laxative Plus) Allergy/AdvReac Type Severity Reaction Status Date / Time No Known Allergies Allergy Verified 02/04/25 15:35 Social History (Updated 02/04/25 @ 15:51 by Tamia Cortes) housing: house Smoking Status: Never smoker ROS ROS ED Review of Systems ROS Unobtainable: due to mental status EXAM Physical Exam Const Vital Signs: 02/04/25 15:30 02/04/25 15:50 02/04/25 15:50 Temperature 97.7 F L 97.7 F L Temperature Source Oral Axillary Pulse Rate 89 69 Respiratory Rate 16 16 Respiratory Effort Respiratory Depth Respiratory Pattern Blood Pressure 135/120 H 138/100 H Blood Pressure Mean 125 112 Pulse Ox 98 100 100 Oxygen Delivery Method Room Air Nasal Cannula Nasal Cannula Oxygen Flow Rate (L/min) 2 2 02/04/25 15:50 02/04/25 16:29 02/04/25 17:30 Temperature 98 F Temperature Source Axillary Pulse Rate 97 100 Respiratory Rate 35 H 27 H Respiratory Effort Short of Breath Labored Respiratory Depth Shallow Respiratory Pattern Tachypnea Blood Pressure 147/54 H 132/93 H Blood Pressure Mean 85 106 Pulse Ox 100 100 Oxygen Delivery Method Nasal Cannula Nasal Cannula Nasal Cannula Oxygen Flow Rate (L/min) 2 2 2 Positive well nourished and well developed Constitutional Narrative: Patient is tachypneic and breathing much more rapidly than 16 times a minute. There is no use of accessory muscles. He feels warm even though his temperature is documented to be 97.7. General Appearance ED: well developed and pallor; Negative for cyanotic, diaphoretic or NAD HEENT Reports dry mucous membranes HEENT Narrative: Patient has gastric contents on his mustache and smith. Head is atraumatic and normocephalic. Ears are normal. Difficult to determine TMs because of the amount of hair in the auditory canal. Nares patent. Mouth ED: Yes dry mucous membranes Mouth: dry mucous membranes Eyes PERRL and EOMs intact bilaterally General Eye ED: Negative for pale conjunctiva or scleral icterus Neck no lymphadenopathy, supple and no JVD Chest Wall inspection of chest normal and palpation of chest normal Resp normal respiratory effort and clear to auscultation bilaterally Cardio regular rate, regular rhythm, S1 normal heart sound, S2 normal heart sound and no murmurs GI normal to inspection, nondistended, normoactive bowel sounds, non-tender, non-distended and no masses; Negative for hepatosplenomegaly Back/Spine no CVA tenderness Extremity Extremity Narrative: There is no clubbing or cyanosis. There is no mottling or delayed capillary refill. Neuro No oriented x3 and CN's II-XII intact bilaterally Neuro Narrative: He moves all extremities. He is not alert. He will attempt to answer questions and he does answer to his name. Psych Psych Narrative: Patient at times gets slightly agitated. Skin no rashes or lesions noted, no wounds and skin turgor normal General Skin Exam: pallor Sepsis Attestation Sepsis Alert: Yes Sepsis Attestation: Sepsis Ruled Out (Patient does have abnormal vital signs, he does have a elevated lactate however there is no obvious source at this time. Since there is no obvious source at this time, [id number] I am not able to agree with the sepsis alert.) Date exam was performed: 02/04/25 Sepsis Organ Dysfunction Criteria Present: Lactic Acid > 2 mmol/L MDM MDM MDM Narrative Medical decision making narrative: Patient send elderly gentleman with significant dementia and history of aspiration pneumonitis. In light of fact that he has vomited and is tachypneic he may have aspirated. Will obtain chest x-ray, EKG to rule out obvious acute ischemia, CBC to rule out anemia and appropriate blood work to evaluate for endorgan dysfunction. History & Record Review Additional record(s) reviewed:: Prior outpatient record (There is documentation from outside source, [facility]. This patient's medical problems which include diabetes, diabetic neuropathy, neoplasm right kidney, hypothyroidism, primary essential hypertension, BPH, dyskinesia and drug-induced, and moderate dementia with behavioral disturbance a), Prior ED visit (Patient seen by Dr. Sarah Beth Carlson January 15 for shortness of breath. He is not noted to be on anticoagulant or antithrombotic. Patient had mild anemia at that time. VBG revealed a alkalosis. Chest x-ray revealed no acute finding. Impression was dementia, aggressive behavior due to dementia and dy) and Prior labs Lab Data Attestation: I reviewed the patient's lab results. Lab results narrative: White count is elevated 15,000 with a shift. There is no bandemia. Electrolyte panels are marked for a sodium of 150 and chloride of 110. On 15 January it was normal. BUN and creatinine are elevated 28 and 1.24. BUN and creatinine on the was 18 and 1.11. Patient has a high anion gap which she did not have on prior lab work either. I was informed that his lactate is elevated 2.1. This could be elevated for numerous reasons. Since there is no evidence of pneumonia on the x-ray and he is not hide toxic from baseline he did not receive antibiotics. The elevated white count could be a reactive leukocytosis. With 1 L normal saline was ordered to be followed by normal saline at 150 an hour. Labs: Laboratory Results - last 24 hr 02/04/25 02/04/25 02/04/25 15:47 16:09 17:28 WBC 15.0 H RBC 4.54 L Hgb 12.9 L Hct 40.3 MCV 88.8 MCH 28.4 MCHC 32.0 RDW Std Deviation 43.9 RDW Coeff of Kirk 13.9 Plt Count 389 MPV 11.4 Immature Gran % (Auto) 1.500 H Neut % (Auto) 72.9 H Lymph % (Auto) 17.7 L [place] % (Auto) 7.1 Eos % (Auto) 0.1 Baso % (Auto) 0.7 Absolute Neuts (auto) 10.9 H Absolute Lymphs (auto) 2.65 Nucleated RBC % 0 Sodium 150 H Potassium 3.4 Chloride 110 H Carbon Dioxide 16.6 L Anion Gap 24 H BUN 28 H Creatinine 1.24 H Estim Creat Clear Calc 44.16 L Est GFR (MDRD) Non-Af 60 BUN/Creatinine Ratio 22.9 H Glucose 120 H Lactic Acid 2.1 H* Calcium 9.5 Total Bilirubin 0.68 AST 14 ALT 6 Alkaline Phosphatase 82 Troponin T High Sens 36 H D Total Protein 6.7 Albumin 3.6 Globulin 3.1 Albumin/Globulin Ratio 1.2 Urine Color Yellow Urine Clarity Clear Urine pH 6.0 Ur Specific [place] 1.025 Urine Protein 30 H Urine Glucose (UA) Normal Urine Ketones 150 A* Urine Occult Blood 10 H Urine Nitrite Positive H Urine Bilirubin 1 H Urine Urobilinogen 1 H Ur Leukocyte Esterase 25 H Urine RBC 0 SEEN Urine WBC 0-5 SEEN Ur Squamous Epith Cells 0 SEEN Urine Bacteria 1+ Urine Mucus 0 SEEN POC Glucose 106 Urinalysis is positive for gravity 1.025, protein, ketones, occult blood, nitrites, bilirubin urobilinogen. There is 0 RBC 0-5 WBCs and 1+ bacteria with no epithelial cells. Since patient is nitrite positive urine culture was sent. He did receive a dose of antibiotics as he has an elevated white count. ABG Data Attestation: I personally reviewed and interpreted this ABG as follows: Interpretation: VBG reveals an alkalosis and consistent with hyperventilation. ABG results: ABG 02/04/25 16:00 Specimen Type MELISSA Sample Site Not entered VBG pH 7.58 H VBG pO2 34 VBG HCO3 16 L VBG Total CO2 17 L VBG O2 Sat (Calc) 78 H VBG Base Excess -6 L POC Mix VBG pCO2 Pt Tmp 17.1 L* O2 Delivery Device Not entered Crit Call To/Read Back Yes Blood Gas Notified Whom raina Blood Gas Notified Time 16:01:54 Radiography Chest X-Ray - ED: 1 View, Read by ED Physician (Patient is slightly rotated. The aorta may be slightly enlarged. This is probably due to the rotation. There is no infiltrate, effusion or pneumothorax. Cardiac size silhouette is normal. Osseous structures reveal no obvious abnormality.), Unchanged, No Acute Disease and Chronic Changes Diagnostic Testing: Clinical Impression(s) from Imaging Studies Chest X-Ray 02/04/25 16:00 IMPRESSION: No focal consolidations. Mild pulmonary vascular congestion. Reading Location: [facility] EK Initial EKG: Attestation: I personally reviewed and interpreted this EKG as follows: Interpretation: Sinus Tachycardia (Rate is 101. There is significant artifact since patient is not cooperative and is not redirectable. MN interval is under 60 ms per cures duration 94 ms. QT duration 400 ms. He does have evidence of a left anterior fascicular block and left axis.) Treatment and Re-Evaluation :: Nurse informing that he is agitated trying to get out of bed he is not easily redirected. Will order 0.5 mg lorazepam for this. Discharge Plan Dx/Rx/DC Orders Clinical Impression: Acute hypernatremia, Elevated serum creatinine, Acidotic hyperventilation, Elevated troponin, Nausea & vomiting, Acute prerenal azotemia, Acute dehydration, Bacteriuria, Ketosis Disposition Disposition: Acute Care Hospital [facility]
[2025-02-04 15:55] LABS: Hematocrit 40.3 % (40-54); Hemoglobin 12.9 g/dL (13.0-16.5); Immature Granulocytes Count 0.230 X10^3/uL (0.0-0.0); Mean Corp Hgb Conc 32.0 g/dL (32-36); Mean Corpuscular Volume 88.8 fL (80-94); Mean Platelet Vol. 11.4 fl (6.2-12.0); NRBC Flagged by Analyzer 0 % (0-5); Platelet Count 389 K/mm3 (150-450); RBC Distribution Width CV 13.9 % (11.6-14.6); RBC Distribution Width SD 43.9 fl (35.1-43.9); Red Blood Count 4.54 M/mm3 (4.6-6.2); White Blood Count 15.0 K/mm3 (4.4-11.0)
--- NOTE | 2025-02-04 16:00 | RAD_ITS ---
PROCEDURE: CHEST 1 VIEW (PORTABLE) 02/04/2025 REASON FOR EXAM: DYSPNEA AND TACHYPNEA TECHNIQUE: Frontal view of the chest. COMPARISON: 01/15/2025 FINDINGS: No focal consolidation. Mild pulmonary vascular congestion. no pleural effusion or pneumothorax. Cardiac silhouette is within normal limits. No acute fractures. RAD/Chest 1 View (Portable) IMPRESSION: No focal consolidations. Mild pulmonary vascular congestion. Reading Location: [id number]
[2025-02-04 16:19] LABS: SITE Not entered; VBG BASE EXCESS -6 mmol/L (-1.0-3.5); VBG PO2 34 mmHg (25-40); VBG SO2 78 % (50-70); VBG TCO2 17 mmol/L (23-33)
[2025-02-04 16:21] LABS: Troponin T High Sensitivity 36 ng/L (<=22)
[2025-02-04 16:23] LABS: AST(SGOT) 14 U/L (<=37); Alanine Aminotransfer ALT/SGPT 6 U/L (<=46); Albumin, Serum 3.6 g/dL (3.4-4.8); Alkaline Phosphatase 82 U/L (40-129); Anion Gap 24 (5-15); BUN 28 mg/dL (4-19); BUN/Creat Ratio 22.9 RATIO (10-20); Calcium,Total 9.5 mg/dL (7.6-11.0); Carbon Dioxide 16.6 mmol/L (21.0-32.0); Chloride 110 mmol/L (98-108); Estimated Creatinine Clearance 44.16 ml/min (50-250); Globulin 3.1 g/dL (2.2-4.2); Glucose 120 mg/dL (70-99); Potassium 3.4 mmol/L (3.3-5.1)
[2025-02-04] MEDS: 0.9% Normal Saline (1000mL) 1,000 ML 1000 ML IV (16:50)
[2025-02-04 17:38] LABS: Mucous, Urine 0 SEEN /hpf (<or=2+); Red Blood Cells-Urine 0 SEEN /hpf (0-5); Squamous Epithelial Cells - UA 0 SEEN /hpf (0-5)
[2025-02-04 17:39] LABS: Color, Urine Yellow (Yellow); Glucose, Dipstick Normal (Normal); Leukocyte Esterase-Dipstick 25 /ul (Negative); Nitrite-Dipstick Positive (Negative); Occult Blood-Urine 10 /ul (Negative); Protein-Dipstick 30 mg/dl (Negative); Specific Gravity, Urine 1.025 (1.002-1.030)
[2025-02-04 17:52] LABS: Urine Bilirubin Dipstick 1 mg/dL (Negative)
--- OUTSIDE RECORDS SUMMARY | 2025-02-04 17:53 | XMS RPT_ITS | CCD ---
Author Organization [facility] ion Partnership [facility] Care Team Providers Care Plastics Engineer Name Role Phone Jessi Austin Unavailable Loretta Rolle Primary Care Provider [phone] Dr. Simone Messer Primary Care Provider [phone] Dr. Mati Shaikh Emergency Provider [phone] Sreekanth Verma Admit Provider Dr. Sreekanth Verma Other Provider Dr. Donald Valdes Other Provider Dr. Peyton [place] Other Provider [phone] Jerald Levine Attending Provider Dr. Peyton [place] Attending Provider [phone] Dr. Peyton [place] Referring Provider Loretta Rolle CNP Primary Care Provider Kendra Herrera Attending Unavailable Morris Paulino Consulting [...] (16 sources) Cortisone Drug Allergy 04-12-2010 Rash [facility] Work Phone: Medications Current Medications Medication [...] 12:00am Start: 09-23-2016 take 1 capsule by [facility] once daily FLUoxetine HCl (PROZAC) 40 mg capsule Take 1 capsule by mouth once daily. 0 09/23/2016 Active Comment on above: Take 1 capsule by [facility] once daily. hydrOXYzine hydrochloride 25 mg oral [...] Comment on above: [facility]. mag hydrox/aluminum hyd/simeth (ANTACID [...] daily at bedtime. omega-3 acid ethyl esters (shelter) 1000 mg oral capsule (16 sources) omega-3 [...] Start: 05-10-2021 take 1 capsule by [facility] once daily before breakfast Omeprazole 20 MG [...] : 29-Jul-2020 Active take 2 tablets by [facility] every four hours as needed acetaminophen (PHARBETOL) [...] take 2 spray(s) nasal route twice daily [place] Nasal [place] 0.65 % Nasal Solution USE 2 SPRAYS [...] Profile (BMP )on 01-11-2025 BUN Normal 4-19 [facility] Comment on above: Result Comment: Canc elled via OM: Order cancelled - Patient discharged Performed By: #### L 100.0100, L500.2500 #### [facility] [address] [facility] [address] BUN/CRE Normal 10-20 [facility] Comment on above: Result Comment: Canc elled via OM: Order cancelled - Patient discharged Performed By: #### L 100.0100, L500.2500 #### [facility] [address] [place], [address] Calcium Normal 7.6-11.0 [facility] Comment on above: Result Comment: Canc elled via OM: Order cancelled - Patient discharged Performed By: #### L 100.0100, L500.2500 #### [facility] [address] [place], [address] CL Normal 98-108 [facility] Comment on above: Result Comment: Canc elled via OM: Order cancelled - Patient discharged Performed By: #### L 100.0100, L500.2500 #### [facility] [address] [place], [address] CO2 Normal 21.0-32.0 [facility] Comment on above: Result Comment: Canc elled via OM: Order cancelled - Patient discharged Performed By: #### L 100.0100, L500.2500 #### [facility] [address] [place], [address] CREAT,SERUM Normal 0.70-1.20 [facility] Comment on above: Result Comment: Canc elled via OM: Order cancelled - Patient discharged Performed By: #### L 100.0100, L500.2500 #### [facility] [address] [place], [address] eGFR Normal >60 [facility] Comment on above: Result Comment: Canc elled via OM: Order cancelled - Patient discharged Performed By: #### L 100.0100, L500.2500 #### [facility] [address] [place], [address] GAP Normal 5-15 [facility] Comment on above: Result Comment: Canc elled via OM: Order cancelled - Patient discharged Performed By: #### L 100.0100, L500.2500 #### [facility] [address] [place], [address] GLU Normal 70-99 [facility] Comment on above: Result Comment: Canc elled via OM: Order cancelled - Patient discharged Performed By: #### L 100.0100, L500.2500 #### [facility] [address] [place], [address] Potassium Normal 3.3-5.1 [facility] Comment on above: Result Comment: Canc elled via OM: Order cancelled - Patient discharged Performed By: #### L 100.0100, L500.2500 #### [facility] [address] [place], [address] Basic Metabolic Profile (BMP) Normal 133-145 [facility] Comment on above: Result Comment: Canc elled via OM: Order cancelled - Patient discharged Performed By: #### L 100.0100, L500.2500 #### [facility] [address] [place], [address] CBC W/Diff, Automatedon 11-0 -2024 Absolute Neut Normal 2.0-7.7 [facility] Comment on above: Result Comment: Canc elled via OM: Order cancelled - Patient discharged Performed By: #### L 100.0100, L500.2500 #### [facility] [address] [place], [address] HCT Normal 40-54 [facility] Comment on above: Result Comment: Canc elled via OM: Order cancelled - Patient discharged Performed By: #### L 100.0100, L500.2500 #### [facility] [address] [place], [address] HGB Normal 13.0-16.5 [facility] Comment on above: Result Comment: Canc elled via OM: Order cancelled - Patient discharged Performed By: #### L 100.0100, L500.2500 #### [facility] [address] [place], [address] MCH Normal 27.0-32.0 [facility] Comment on above: Result Comment: Canc elled via OM: Order cancelled - Patient discharged Performed By: #### L 100.0100, L500.2500 #### [facility] [address] [place], [address] MCHC Normal 32-36 [facility] Comment on above: Result Comment: Canc elled via OM: Order cancelled - Patient discharged Performed By: #### L 100.0100, L500.2500 #### [facility] [address] [place], [address] MCV Normal 80-94 [facility] Comment on above: Result Comment: Canc elled via OM: Order cancelled - Patient discharged Performed By: #### L 100.0100, L500.2500 #### [facility] [address] [place], [address] NEUT% Normal 47-70 [facility] Comment on above: Result Comment: Canc elled via OM: Order cancelled - Patient discharged Performed By: #### L 100.0100, L500.2500 #### [facility] [address] [place], [address] PLT Normal 150-450 [facility] Comment on above: Result Comment: Canc elled via OM: Order cancelled - Patient discharged Performed By: #### L 100.0100, L500.2500 #### [facility] [address] [place], [address] RBC Normal 4.6-6.2 [facility] Comment on above: Result Comment: Canc elled via OM: Order cancelled - Patient discharged Performed By: #### L 100.0100, L500.2500 #### [facility] [address] [place], [address] RDW CV Normal 11.6-14.6 [facility] Comment on above: Result Comment: Canc elled via OM: Order cancelled - Patient discharged Performed By: #### L 100.0100, L500.2500 #### [facility] [address] [place], [address] RDW SD Normal 35.1-43.9 [facility] Comment on above: Result Comment: Canc elled via OM: Order cancelled - Patient discharged Performed By: #### L 100.0100, L500.2500 #### [facility] [address] [place], [address] WBC Normal 4.4-11.0 [facility] Comment on above: Result Comment: Canc elled via OM: Order cancelled - Patient discharged Performed By: #### L 100.0100, L500.2500 #### [facility] [address] [place], [address] Basic Metabolic Profile (BMP )on 01-10-2025 BUN Normal 4-19 [facility] Comment on above: Result Comment: Canc elled via OM: Order cancelled - Patient discharged Performed By: #### L 100.0100, L500.2500 #### [facility] [address] [place], [address] BUN/CRE Normal 10-20 [facility] Comment on above: Result Comment: Canc elled via OM: Order cancelled - Patient discharged Performed By: #### L 100.0100, L500.2500 #### [facility] [address] [place], [address] Calcium Normal 7.6-11.0 [facility] Comment on above: Result Comment: Canc elled via OM: Order cancelled - Patient discharged Performed By: #### L 100.0100, L500.2500 #### [facility] [address] [place], [address] CL Normal 98-108 [facility] Comment on above: Result Comment: Canc elled via OM: Order cancelled - Patient discharged Performed By: #### L 100.0100, L500.2500 #### [facility] [address] [place], [address] CO2 Normal 21.0-32.0 [facility] Comment on above: Result Comment: Canc elled via OM: Order cancelled - Patient discharged Performed By: #### L 100.0100, L500.2500 #### [facility] [address] [place], [address] CREAT,SERUM Normal 0.70-1.20 [facility] Comment on above: Result Comment: Canc elled via OM: Order cancelled - Patient discharged Performed By: #### L 100.0100, L500.2500 #### [facility] [address] [place], [address] eGFR Normal >60 [facility] Comment on above: Result Comment: Canc elled via OM: Order cancelled - Patient discharged Performed By: #### L 100.0100, L500.2500 #### [facility] [address] [place], [address] GAP Normal 5-15 [facility] Comment on above: Result Comment: Canc elled via OM: Order cancelled - Patient discharged Performed By: #### L 100.0100, L500.2500 #### [facility] [address] [place], [address] GLU Normal 70-99 [facility] Comment on above: Result Comment: Canc elled via OM: Order cancelled - Patient discharged Performed By: #### L 100.0100, L500.2500 #### [facility] [address] [place], [address] Potassium Normal 3.3-5.1 [facility] Comment on above: Result Comment: Canc elled via OM: Order cancelled - Patient discharged Performed By: #### L 100.0100, L500.2500 #### [facility] [address] [place], [address] Basic Metabolic Profile (BMP) Normal 133-145 [facility] Comment on above: Result Comment: Canc elled via OM: Order cancelled - Patient discharged Performed By: #### L 100.0100, L500.2500 #### [facility] [address] [place], [address] CBC W/Diff, Automatedon 11-0 Absolute Neut Normal 2.0-7.7 [facility] Comment on above: Result Comment: Canc elled via OM: Order cancelled - Patient discharged Performed By: #### L 100.0100, L500.2500 #### [facility] [address] [place], [address] HCT Normal 40-54 [facility] Comment on above: Result Comment: Canc elled via OM: Order cancelled - Patient discharged Performed By: #### L 100.0100, L500.2500 #### [facility] [address] [place], [address] HGB Normal 13.0-16.5 [facility] Comment on above: Result Comment: Canc elled via OM: Order cancelled - Patient discharged Performed By: #### L 100.0100, L500.2500 #### [facility] [address] [place], [address] MCH Normal 27.0-32.0 [facility] Comment on above: Result Comment: Canc elled via OM: Order cancelled - Patient discharged Performed By: #### L 100.0100, L500.2500 #### [facility] [address] [place], [address] MCHC Normal 32-36 [facility] Comment on above: Result Comment: Canc elled via OM: Order cancelled - Patient discharged Performed By: #### L 100.0100, L500.2500 #### [facility] [address] [place], [address] MCV Normal 80-94 [facility] Comment on above: Result Comment: Canc elled via OM: Order cancelled - Patient discharged Performed By: #### L 100.0100, L500.2500 #### [facility] [address] [place], [address] NEUT% Normal 47-70 [facility] Comment on above: Result Comment: Canc elled via OM: Order cancelled - Patient discharged Performed By: #### L 100.0100, L500.2500 #### [facility] [address] [place], [address] PLT Normal 150-450 [facility] Comment on above: Result Comment: Canc elled via OM: Order cancelled - Patient discharged Performed By: #### L 100.0100, L500.2500 #### [facility] [address] [place], [address] RBC Normal 4.6-6.2 [facility] Comment on above: Result Comment: Canc elled via OM: Order cancelled - Patient discharged Performed By: #### L 100.0100, L500.2500 #### [facility] [address] [place], [address] RDW CV Normal 11.6-14.6 [facility] Comment on above: Result Comment: Canc elled via OM: Order cancelled - Patient discharged Performed By: #### L 100.0100, L500.2500 #### [facility] [address] [place], [address] RDW SD Normal 35.1-43.9 [facility] Comment on above: Result Comment: Canc elled via OM: Order cancelled - Patient discharged Performed By: #### L 100.0100, L500.2500 #### [facility] [address] [place], [address] WBC Normal 4.4-11.0 [facility] Comment on above: Result Comment: Canc elled via OM: Order cancelled - Patient discharged Performed By: #### L 100.0100, L500.2500 #### [facility] [address] [place], [address] Basic Metabolic Profile (BMP )on 01-09-2025 BUN Normal 4-19 [facility] Comment on above: Result Comment: Canc elled via OM: Order cancelled - Patient discharged Performed By: #### L 100.0100, L500.2500 #### [facility] [address] [place], [address] BUN/CRE Normal 10-20 [facility] Comment on above: Result Comment: Canc elled via OM: Order cancelled - Patient discharged Performed By: #### L 100.0100, L500.2500 #### [facility] [address] [place], [address] Calcium Normal 7.6-11.0 [facility] Comment on above: Result Comment: Canc elled via OM: Order cancelled - Patient discharged Performed By: #### L 100.0100, L500.2500 #### [facility] [address] [place], [address] CL Normal 98-108 [facility] Comment on above: Result Comment: Canc elled via OM: Order cancelled - Patient discharged Performed By: #### L 100.0100, L500.2500 #### [facility] [address] [place], [address] CO2 Normal 21.0-32.0 [facility] Comment on above: Result Comment: Canc elled via OM: Order cancelled - Patient discharged Performed By: #### L 100.0100, L500.2500 #### [facility] [address] [place], [address] CREAT,SERUM Normal 0.70-1.20 [facility] Comment on above: Result Comment: Canc elled via OM: Order cancelled - Patient discharged Performed By: #### L 100.0100, L500.2500 #### [facility] [address] [place], [address] eGFR Normal >60 [facility] Comment on above: Result Comment: Canc elled via OM: Order cancelled - Patient discharged Performed By: #### L 100.0100, L500.2500 #### [facility] [address] [place], [address] GAP Normal 5-15 [facility] Comment on above: Result Comment: Canc elled via OM: Order cancelled - Patient discharged Performed By: #### L 100.0100, L500.2500 #### [facility] [address] [place], [address] GLU Normal 70-99 [facility] Comment on above: Result Comment: Canc elled via OM: Order cancelled - Patient discharged Performed By: #### L 100.0100, L500.2500 #### [facility] [address] [place], [address] Potassium Normal 3.3-5.1 [facility] Comment on above: Result Comment: Canc elled via OM: Order cancelled - Patient discharged Performed By: #### L 100.0100, L500.2500 #### [facility] [address] [place], [address] Basic Metabolic Profile (BMP) Normal 133-145 [facility] Comment on above: Result Comment: Canc elled via OM: Order cancelled - Patient discharged Performed By: #### L 100.0100, L500.2500 #### [facility] [address] [place], [address] CBC W/Diff, Automatedon 11-0 -2024 Absolute Neut Normal 2.0-7.7 [facility] Comment on above: Result Comment: Canc elled via OM: Order cancelled - Patient discharged Performed By: #### L 100.0100, L500.2500 #### [facility] [address] [place], [address] HCT Normal 40-54 [facility] Comment on above: Result Comment: Canc elled via OM: Order cancelled - Patient discharged Performed By: #### L 100.0100, L500.2500 #### [facility] [address] [place], [address] HGB Normal 13.0-16.5 [facility] Comment on above: Result Comment: Canc elled via OM: Order cancelled - Patient discharged Performed By: #### L 100.0100, L500.2500 #### [facility] [address] [place], [address] MCH Normal 27.0-32.0 [facility] Comment on above: Result Comment: Canc elled via OM: Order cancelled - Patient discharged Performed By: #### L 100.0100, L500.2500 #### [facility] [address] [place], [address] MCHC Normal 32-36 [facility] Comment on above: Result Comment: Canc elled via OM: Order cancelled - Patient discharged Performed By: #### L 100.0100, L500.2500 #### [facility] [address] [place], [address] MCV Normal 80-94 [facility] Comment on above: Result Comment: Canc elled via OM: Order cancelled - Patient discharged Performed By: #### L 100.0100, L500.2500 #### [facility] [address] [place], [address] NEUT% Normal 47-70 [facility] Comment on above: Result Comment: Canc elled via OM: Order cancelled - Patient discharged Performed By: #### L 100.0100, L500.2500 #### [facility] [address] [place], [address] PLT Normal 150-450 [facility] Comment on above: Result Comment: Canc elled via OM: Order cancelled - Patient discharged Performed By: #### L 100.0100, L500.2500 #### [facility] [address] [place], [address] RBC Normal 4.6-6.2 [facility] Comment on above: Result Comment: Canc elled via OM: Order cancelled - Patient discharged Performed By: #### L 100.0100, L500.2500 #### [facility] [address] [place], [address] RDW CV Normal 11.6-14.6 [facility] Comment on above: Result Comment: Canc elled via OM: Order cancelled - Patient discharged Performed By: #### L 100.0100, L500.2500 #### [facility] [address] [place], [address] RDW SD Normal 35.1-43.9 [facility] Comment on above: Result Comment: Canc elled via OM: Order cancelled - Patient discharged Performed By: #### L 100.0100, L500.2500 #### [facility] [address] [place], [address] WBC Normal 4.4-11.0 [facility] Comment on above: Result Comment: Canc elled via OM: Order cancelled - Patient discharged Performed By: #### L 100.0100, L500.2500 #### [facility] [address] [place], [address] Basic Metabolic Profile (BMP )on 01-08-2025 BUN Normal 4-19 [facility] Comment on above: Result Comment: Canc elled via OM: Order cancelled - Patient discharged Performed By: #### L 499.0043 #### [facility] [address] [place], [address] BUN/CRE Normal 10-20 [facility] Comment on above: Result Comment: Canc elled via OM: Order cancelled - Patient discharged Performed By: #### L 499.0043 #### [facility] [address] [place], [address] Calcium Normal 7.6-11.0 [facility] Comment on above: Result Comment: Canc elled via OM: Order cancelled - Patient discharged Performed By: #### L 499.0043 #### [facility] [address] [place], [address] CL Normal 98-108 [facility] Comment on above: Result Comment: Canc elled via OM: Order cancelled - Patient discharged Performed By: #### L 499.0043 #### [facility] [address] [place], [address] CO2 Normal 21.0-32.0 [facility] Comment on above: Result Comment: Canc elled via OM: Order cancelled - Patient discharged Performed By: #### L 499.0043 #### [facility] [address] [place], [address] CREAT,SERUM Normal 0.70-1.20 [facility] [facility] Comment on above: Result Comment: Canc elled via OM: Order cancelled - Patient discharged Performed By: #### L 499.0043 #### [facility] [address] [place], [address] eGFR Normal >60 [facility] Comment on above: Result Comment: Canc elled via OM: Order cancelled - Patient discharged Performed By: #### L 499.0043 #### [facility] [address] [place], [address] GAP Normal 5-15 [facility] Comment on above: Result Comment: Canc elled via OM: Order cancelled - Patient discharged Performed By: #### L 499.0043 #### [facility] [address] [place], [address] GLU Normal 70-99 [facility] Comment on above: Result Comment: Canc elled via OM: Order cancelled - Patient discharged Performed By: #### L 499.0043 #### [facility] [address] [place], [address] Potassium Normal 3.3-5.1 [facility] Comment on above: Result Comment: Canc elled via OM: Order cancelled - Patient discharged Performed By: #### L 499.0043 #### [facility] [address] [place], [address] Basic Metabolic Profile (BMP) Normal 133-145 [facility] Comment on above: Result Comment: Canc elled via OM: Order cancelled - Patient discharged Performed By: #### L 499.0043 #### [facility] [address] [place], [address] CBC W/Diff, Automatedon 11-0 5-2024 Absolute Neut Normal 2.0-7.7 [facility] Comment on above: Result Comment: Canc elled via OM: Order cancelled - Patient discharged Performed By: #### L 499.0043 #### [facility] [address] [place], [address] HCT Normal 40-54 [facility] Comment on above: Result Comment: Canc elled via OM: Order cancelled - Patient discharged Performed By: #### L 499.0043 #### [facility] [address] [place], [address] HGB Normal 13.0-16.5 [facility] Comment on above: Result Comment: Canc elled via OM: Order cancelled - Patient discharged Performed By: #### L 499.0043 #### [facility] [address] [place], [address] MCH Normal 27.0-32.0 [facility] Comment on above: Result Comment: Canc elled via OM: Order cancelled - Patient discharged Performed By: #### L 499.0043 #### [facility] [address] [place], [address] MCHC Normal 32-36 [facility] Comment on above: Result Comment: Canc elled via OM: Order cancelled - Patient discharged Performed By: #### L 499.0043 #### [facility] [address] [place], [address] MCV Normal 80-94 [facility] Comment on above: Result Comment: Canc elled via OM: Order cancelled - Patient discharged Performed By: #### L 499.0043 #### [facility] [address] [place], [address] NEUT% Normal 47-70 [facility] Comment on above: Result Comment: Canc elled via OM: Order cancelled - Patient discharged Performed By: #### L 499.0043 #### [facility] [address] [place], [address] PLT Normal 150-450 [facility] Comment on above: Result Comment: Canc elled via OM: Order cancelled - Patient discharged Performed By: #### L 499.0043 #### [facility] [address] [place], [address] RBC Normal 4.6-6.2 [facility] Comment on above: Result Comment: Canc elled via OM: Order cancelled - Patient discharged Performed By: #### L 499.0043 #### [facility] [address] [place], [address] RDW CV Normal 11.6-14.6 [facility] Comment on above: Result Comment: Canc elled via OM: Order cancelled - Patient discharged Performed By: #### L 499.0043 #### [facility] [address] [place], [address] RDW SD Normal 35.1-43.9 [facility] Comment on above: Result Comment: Canc elled via OM: Order cancelled - Patient discharged Performed By: #### L 499.0043 #### [facility] [address] [place], [address] WBC Normal 4.4-11.0 [facility] Comment on above: Result Comment: Canc elled via OM: Order cancelled - Patient discharged Performed By: #### L 499.0043 #### [facility] [address] [place], [address] Culture, Blood (WB)on 2024 CUB Blood cultures x2, from two different sites No growth in 5 days. Normal [facility] Comment on above: Performed By: #### M 200.1000 ####[facility] [address] [place], [address] Basic Metabolic Profile (BMP )on 01-07-2025 BUN/CRE 18.3 RATIO Normal 10-20 [facility] Comment on above: Performed By: #### L 100.0100, L500.2500 ####[facility] [address] [place], [address] Calcium [Mass/Vol] 8.6 mg/dL Normal 7.6-11.0 [facility] Comment on above: Performed By: #### L 100.0100, L500.2500 ####[facility] [address] [place], [address] Chloride [Moles/Vol] 109 mmol/L High 98-108 [facility] Comment on above: Performed By: #### L 100.0100, L500.2500 ####[facility] [address] [place], [address] CO2 [Moles/Vol] 21.5 mmol/L Normal 21.0-32.0 [facility] Comment on above: Performed By: #### L 100.0100, L500.2500 ####[facility] [address] [place], [address] Creatinine [Mass/Vol] 1.04 mg/dL Normal 0.70-1.20 [facility] Comment on above: Performed By: #### L 100.0100, L500.2500 ####[facility] [address] [place], [address] ECRCL 70.24 ml/min Normal 50-250 [facility] Comment on above: Performed By: #### L 100.0100, L500.2500 ####[facility] [address] [place], [address] GAP 11 Normal 5-15 [facility] Comment on above: Performed By: #### L 100.0100, L500.2500 ####[facility] [address] [place], [address] GFR/1.73 sq M.predicted among non-blacks MDRD (S/P/Bld) [Vol rate/Area] 74 mL/min/{1.73_m2} Normal >60 [facility] Comment on above: Result Comment: mL/m in/1.73m2 CKD-EPI Creatinine Equation (2020) Performed By: #### L 100.0100, L500.2500 ####[facility] [address] [place], [address] Glucose [Mass/Vol] 111 mg/dL High 70-99 [facility] Comment on above: Performed By: #### L 100.0100, L500.2500 ####[facility] [address] [place], [address] Potassium [Moles/Vol] 3.5 mmol/L Normal 3.3-5.1 [facility] Comment on above: Performed By: #### L 100.0100, L500.2500 ####[facility] [address] [place], [address] Sodium [Moles/Vol] 142 mmol/L Normal 133-145 [facility] Comment on above: Performed By: #### L 100.0100, L500.2500 ####[facility] [address] [place], [address] Urea nitrogen [Mass/Vol] 19 mg/dL Normal 4-19 [facility] Comment on above: Performed By: #### L 100.0100, L500.2500 ####[facility] [address] [place], [address] CBC W/Diff, Automatedon 11-0 Absolute Lymph 2.87 X10 3/uL Normal 0.83-4.51 [facility] Comment on above: Performed By: #### L 100.0100, L500.2500 ####[facility] [address] [place], [address] Absolute Neut 10.1 X10 3/uL High 2.0-7.7 [facility] Comment on above: Performed By: #### L 100.0100, L500.2500 ####[facility] [address] [place], [address] Basophils/100 WBC (Bld) 0.4 % Normal 0-[address] [facility] Comment on above: Performed By: #### L 100.0100, L500.2500 ####[facility] [address] [place], [address] Eosinophils/100 WBC (Bld) 1.6 % Normal 0-5 [facility] Comment on above: Performed By: #### L 100.0100, L500.2500 ####[facility] [address] [place], [address] Erythrocyte distribution width (RBC) [Ratio] 13.8 % Normal 11.6-14.6 [facility] Comment on above: Performed By: #### L 100.0100, L500.2500 ####[facility] [address] [place], [address] Hematocrit (Bld) [Volume fraction] 31.7 % Low 40-54 [facility] Comment on above: Performed By: #### L 100.0100, L500.2500 ####[facility] [address] [place], [address] Hemoglobin (Bld) [Mass/Vol] 10.6 g/dL Low 13.0-16.5 [facility] Comment on above: Performed By: #### L 100.0100, L500.2500 ####[facility] [address] [place], [address] IG% 1.400 High 0.0-0.9 [facility] Comment on above: Result Comment: IG% - Immature Granulocytes (promyelocytes, myelocytes and metamyelocytes) > 1% indicates that a LEFT SHIFT is Present. Performed By: #### L 100.0100, L500.2500 ####[facility] [address] [place], [address] Lymphocytes/100 WBC (Bld) 19.8 % Normal 19-41 [facility] Comment on above: Performed By: #### L 100.0100, L500.2500 ####[facility] [address] [place], [address] MCH (RBC) [Entitic mass] 29.7 pg Normal 27.0-32.0 [facility] Comment on above: Performed By: #### L 100.0100, L500.2500 ####[facility] [address] [place], [address] MCHC (RBC) [Mass/Vol] 33.4 g/dL Normal 32-36 [facility] Comment on above: Performed By: #### L 100.0100, L500.2500 ####[facility] [address] [place], [address] MCV (RBC) [Entitic vol] 88.8 fL Normal 80-94 [facility] Comment on above: Performed By: #### L 100.0100, L500.2500 ####[facility] [address] [place], [address] Monocytes/100 WBC (Bld) 7.5 % Normal 0-[address] [facility] Comment on above: Performed By: #### L 100.0100, L500.2500 ####[facility] [address] [place], [address] Neutrophils/100 WBC (Bld) 69.3 % Normal 47-70 [facility] Comment on above: Performed By: #### L 100.0100, L500.2500 ####[facility] [address] [place], [address] Nucleated RBC (Bld) [#/Vol] 0 10*3/uL Normal 0-5 [facility] Comment on above: Performed By: #### L 100.0100, L500.2500 ####[facility] [address] [place], [address] Platelet mean volume (Bld) [Entitic vol] 10.2 fL Normal 6.2-12.0 [facility] Comment on above: Performed By: #### L 100.0100, L500.2500 ####[facility] [address] [place], [address] Platelets (Bld) [#/Vol] 232 10*3/uL Normal 150-450 [facility] Comment on above: Performed By: #### L 100.0100, L500.2500 ####[facility] [address] [place], [address] RBC (Bld) [#/Vol] 3.57 10*6/uL Low 4.6-6.2 [facility] Comment on above: Performed By: #### L 100.0100, L500.2500 ####[facility] [address] [place], [address] RDW SD 44.4 fl High 35.1-43.9 [facility] Comment on above: Performed By: #### L 100.0100, L500.2500 ####[facility] [address] [place], [address] WBC (Bld) [#/Vol] 14.5 10*3/uL High 4.4-11.0 [facility] Comment on above: Performed By: #### L 100.0100, L500.2500 ####[facility] [address] [place], [address] Urine Cultureon 01-07-2025 [facility] Culture exhibits no growth. Normal [facility] Comment on above: Performed By: #### L 400.0001, M100.2200 ####[facility] [address] [place], [address] Basic Metabolic Profile (BMP )on 01-06-2025 BUN/CRE 19.0 RATIO Normal 10-20 [facility] Comment on above: Performed By: #### L 100.0100, L500.2500 #### [facility] [address] [place], [address] Calcium [Mass/Vol] 8.3 mg/dL Normal 7.6-11.0 [facility] Comment on above: Performed By: #### L 100.0100, L500.2500 #### [facility] [address] [place], [address] Chloride [Moles/Vol] 109 mmol/L High 98-108 [facility] Comment on above: Performed By: #### L 100.0100, L500.2500 #### [facility] [address] [place], [address] CO2 [Moles/Vol] 23.7 mmol/L Normal 21.0-32.0 [facility] Comment on above: Performed By: #### L 100.0100, L500.2500 #### [facility] [address] [place], [address] Creatinine [Mass/Vol] 0.99 mg/dL Normal 0.70-1.20 [facility] Comment on above: Performed By: #### L 100.0100, L500.2500 #### [facility] [address] [place], [address] ECRCL 73.78 ml/min Normal 50-250 [facility] Comment on above: Performed By: #### L 100.0100, L500.2500 #### [facility] [address] [place], [address] GAP 8 Normal 5-15 [facility] Comment on above: Performed By: #### L 100.0100, L500.2500 #### [facility] [address] [place], [address] GFR/1.73 sq M.predicted among non-blacks MDRD (S/P/Bld) [Vol rate/Area] 79 mL/min/{1.73_m2} Normal >60 [facility] Comment on above: Result Comment: mL/m in/1.73m2 CKD-EPI Creatinine Equation (2020) Performed By: #### L 100.0100, L500.2500 #### [facility] [address] [place], [address] Glucose [Mass/Vol] 102 mg/dL High 70-99 [facility] Comment on above: Performed By: #### L 100.0100, L500.2500 #### [facility] [address] [place], [address] Potassium [Moles/Vol] 3.7 mmol/L Normal 3.3-5.1 [facility] Comment on above: Performed By: #### L 100.0100, L500.2500 #### [facility] [address] [place], [address] Sodium [Moles/Vol] 141 mmol/L Normal 133-145 [facility] Comment on above: Performed By: #### L 100.0100, L500.2500 #### [facility] [address] [place], [address] Urea nitrogen [Mass/Vol] 19 mg/dL Normal 4-19 [facility] Comment on above: Performed By: #### L 100.0100, L500.2500 #### [facility] [address] [place], [address] CBC W/Diff, Automatedon 11-0 3-2024 Absolute Lymph 2.85 X10 3/uL Normal 0.83-4.51 [facility] Comment on above: Performed By: #### L 100.0100, L500.2500 #### [facility] [address] [place], [address] Absolute Neut 17.5 X10 3/uL High 2.0-7.7 [facility] Comment on above: Performed By: #### L 100.0100, L500.2500 #### [facility] [address] [place], [address] Basophils/100 WBC (Bld) 0.4 % Normal 0-[address] [facility] Comment on above: Performed By: #### L 100.0100, L500.2500 #### [facility] [address] [place], [address] Eosinophils/100 WBC (Bld) 1.1 % Normal 0-5 [facility] Comment on above: Performed By: #### L 100.0100, L500.2500 #### [facility] [address] [place], [address] Erythrocyte distribution width (RBC) [Ratio] 13.8 % Normal 11.6-14.6 [facility] Comment on above: Performed By: #### L 100.0100, L500.2500 #### [facility] [address] [place], [address] Hematocrit (Bld) [Volume fraction] 34.2 % Low 40-54 [facility] Comment on above: Performed By: #### L 100.0100, L500.2500 #### [facility] [address] [place], [address] Hemoglobin (Bld) [Mass/Vol] 11.2 g/dL Low 13.0-16.5 [facility] Comment on above: Performed By: #### L 100.0100, L500.2500 #### [facility] [address] [place], [address] IG% 1.300 High 0.0-0.9 [facility] Comment on above: Result Comment: IG% - Immature Granulocytes (promyelocytes, myelocytes and metamyelocytes) > 1% indicates that a LEFT SHIFT is Present. Performed By: #### L 100.0100, L500.2500 #### [facility] [address] [place], [address] Lymphocytes/100 WBC (Bld) 12.8 % Low 19-41 [facility] Comment on above: Performed By: #### L 100.0100, L500.2500 #### [facility] [address] [place], [address] MCH (RBC) [Entitic mass] 29.3 pg Normal 27.0-32.0 [facility] Comment on above: Performed By: #### L 100.0100, L500.2500 #### [facility] [address] [place], [address] MCHC (RBC) [Mass/Vol] 32.7 g/dL Normal 32-36 [facility] Comment on above: Performed By: #### L 100.0100, L500.2500 #### [facility] [address] [place], [address] MCV (RBC) [Entitic vol] 89.5 fL Normal 80-[address] [facility] Comment on above: Performed By: #### L 100.0100, L500.2500 #### [facility] [address] [place], [address] Monocytes/100 WBC (Bld) 5.8 % Normal 0-[address] [facility] Comment on above: Performed By: #### L 100.0100, L500.2500 #### [facility] [address] [place], [address] Neutrophils/100 WBC (Bld) 78.6 % High 47-70 [facility] Comment on above: Performed By: #### L 100.0100, L500.2500 #### [facility] [address] [place], [address] Nucleated RBC (Bld) [#/Vol] 0 10*3/uL Normal 0-5 [facility] Comment on above: Performed By: #### L 100.0100, L500.2500 #### [facility] [address] [place], [address] Platelet mean volume (Bld) [Entitic vol] 10.6 fL Normal 6.2-12.0 [facility] Comment on above: Performed By: #### L 100.0100, L500.2500 #### [facility] [address] [place], [address] Platelets (Bld) [#/Vol] 200 10*3/uL Normal 150-450 [facility] Comment on above: Performed By: #### L 100.0100, L500.2500 #### [facility] [address] [place], [address] RBC (Bld) [#/Vol] 3.82 10*6/uL Low 4.6-6.2 [facility] Comment on above: Performed By: #### L 100.0100, L500.2500 #### [facility] [address] [place], [address] RDW SD 44.8 fl High 35.1-43.9 [facility] Comment on above: Performed By: #### L 100.0100, L500.2500 #### [facility] [address] [place], [address] WBC (Bld) [#/Vol] 22.2 10*3/uL High 4.4-11.0 [facility] Comment on above: Performed By: #### L 100.0100, L500.2500 #### [facility] [address] [place], [address] Chest 1 View (Portable)on Chest 1 View (Portable) [facility] Imaging Services [address] [place], [place] [address] Chest 1 View (Portable) MR#: [id number] Acct: [id number] Name: ALLAN LARA Rep #: [id number] : [id number] M 74 From: Stevenson Su MD PCP: Dr. Simone Messer MD Status: ADM IN Study: Chest 1 View (Portable) Date of Exam: 01/06/25 Exam# [id number] Ordering Dr: Kendra Herrera MD PROCEDURE: CHEST [...] change. No new organizing pneumonia. Reading Location: [id number] CC: Dr. Kendra Herrera MD; Dr. Simone Messer MD Web Coordinator: Signed Normal [facility] Hemoglobin A1con 01-06-2025 HbA1c (Bld) [Mass fraction] 6.3 % High <=5.6 [facility] Comment on above: Result Comment: Norm al < 5.7 % Prediabetic 5.7 - 6.4 % Diabetic >or= 6.5 % Please note range changes. Performed By: #### L 100.0100, L500.2500 #### [facility] [address] [place], [address] Urinalysis, Completeon 01-06 RBC 0 SEEN Normal 0-5 [facility] Comment on above: Order Comment: JOANNA TER SPECIMEN Performed By: #### L 400.0001, M100.2200 ####[facility] [address] [place], [address] BACTERIA 0 SEEN Normal None Seen [facility] Comment on above: Order Comment: JOANNA TER SPECIMEN Performed By: #### L 400.0001, M100.2200 ####[facility] [address] [place], [address] EPI,SQUAMOUS 0 SEEN Normal 0-5 [facility] Comment on above: Order Comment: JOANNA TER SPECIMEN Performed By: #### L 400.0001, M1.0 ####[facility] [address] [place], [address] Mucus Ql (Urine sed) 0 SEEN Normal [facility] Comment on above: Order Comment: JOANNA TER SPECIMEN Performed By: #### L 400.0001, M100.2200 ####[facility] [address] [place], [address] WBC 0 SEEN Normal 0-5 [facility] Comment on above: Order Comment: JOANNA TER SPECIMEN Performed By: #### L 400.0001, M100.2200 ####[facility] [id number] [place], [address] Basic Metabolic Profile (BMP )on 01-05-2025 BUN/CRE 22.6 RATIO High 10-20 [facility] Comment on above: Performed By: #### L 499.0043 #### [facility] Laboratory [address] [place], [address] Calcium [Mass/Vol] 8.5 mg/dL Normal 7.6-11.0 [facility] Comment on above: Performed By: #### L 499.0043 #### [facility] [address] [place], [address] Chloride [Moles/Vol] 108 mmol/L Normal 98-108 [facility] Comment on above: Performed By: #### L 499.0043 #### [facility] [address] [place], [address] CO2 [Moles/Vol] 21.7 mmol/L Normal 21.0-32.0 [facility] Comment on above: Performed By: #### L 499.0043 #### [facility] [address] [place], [address] Creatinine [Mass/Vol] 0.99 mg/dL Normal 0.70-1.20 [facility] Comment on above: Performed By: #### L 499.0043 #### [facility] [address] [place], [address] ECRCL 73.78 ml/min Normal 50-250 [facility] Comment on above: Performed By: #### L 499.0043 #### [facility] [address] [place], [address] GAP 10 Normal 5-15 [facility] Comment on above: Performed By: #### L 499.0043 #### [facility] [address] [place], [address] GFR/1.73 sq M.predicted among non-blacks MDRD (S/P/Bld) [Vol rate/Area] 79 mL/min/{1.73_m2} Normal >60 [facility] Comment on above: Result Comment: mL/m in/1.73m2 CKD-EPI Creatinine Equation (2020) Performed By: #### L 499.0043 #### [facility] [address] [place], [address] Glucose [Mass/Vol] 147 mg/dL High 70-99 [facility] Comment on above: Performed By: #### L 499.0043 #### [facility] [address] [place], [address] Potassium [Moles/Vol] 4.0 mmol/L Normal 3.3-5.1 [facility] Comment on above: Performed By: #### L 499.0043 #### [facility] [address] [place], [address] Sodium [Moles/Vol] 140 mmol/L Normal 133-145 [facility] Comment on above: Performed By: #### L 499.0043 #### [facility] [address] [place], [address] Urea nitrogen [Mass/Vol] 22 mg/dL High 4-19 [facility] Comment on above: Performed By: #### L 499.0043 #### [facility] [address] [place], [address] CBC W/Diff, Automatedon 11-0 2-2025 Absolute Lymph 1.49 X10 3/uL Normal 0.83-4.51 [facility] Comment on above: Performed By: #### L 499.0043 #### [facility] [address] [place], [address] Absolute Neut 25.6 X10 3/uL High 2.0-7.7 [facility] Comment on above: Performed By: #### L 499.0043 #### [facility] [address] [place], [address] Basophils/100 WBC (Bld) 0.3 % Normal 0-[address] [facility] Comment on above: Performed By: #### L 499.0043 #### [facility] [address] [place], [address] Eosinophils/100 WBC (Bld) 0.0 % Normal 0-5 [facility] Comment on above: Performed By: #### L 499.0043 #### [facility] [address] [place], [address] Erythrocyte distribution width (RBC) [Ratio] 13.7 % Normal 11.6-14.6 [facility] Comment on above: Performed By: #### L 499.0043 #### [facility] [address] [place], [address] Hematocrit (Bld) [Volume fraction] 36.3 % Low 40-54 [facility] Comment on above: Performed By: #### L 499.0043 #### [facility] [address] [place], [address] Hemoglobin (Bld) [Mass/Vol] 11.7 g/dL Low 13.0-16.5 [facility] Comment on above: Performed By: #### L 499.0043 #### [facility] [address] [place], [address] IG% 1.000 High 0.0-0.9 [facility] Comment on above: Result Comment: IG% - Immature Granulocytes (promyelocytes, myelocytes and metamyelocytes) > 1% indicates that a LEFT SHIFT is Present. Performed By: #### L 499.0043 #### [facility] [address] [place], [address] Lymphocytes/100 WBC (Bld) 5.1 % Low 19-41 [facility] Comment on above: Performed By: #### L 499.0043 #### [facility] [address] [place], [address] MCH (RBC) [Entitic mass] 29.3 pg Normal 27.0-32.0 [facility] Comment on above: Performed By: #### L 499.0043 #### [facility] [address] [place], [address] MCHC (RBC) [Mass/Vol] 32.2 g/dL Normal 32-36 [facility] Comment on above: Performed By: #### L 499.0043 #### [facility] [address] [place], [address] MCV (RBC) [Entitic vol] 90.8 fL Normal 80-[address] [facility] Comment on above: Performed By: #### L 499.0043 #### [facility] [address] [place], [address] Monocytes/100 WBC (Bld) 5.3 % Normal 0-10 [facility] Comment on above: Performed By: #### L 499.0043 #### [facility] [address] [place], [address] Neutrophils/100 WBC (Bld) 88.3 % High 47-70 [facility] Comment on above: Performed By: #### L 499.0043 #### [facility] [address] [place], [address] Nucleated RBC (Bld) [#/Vol] 0 10*3/uL Normal 0-5 [facility] Comment on above: Performed By: #### L 499.0043 #### [facility] [address] [place], [address] Platelet mean volume (Bld) [Entitic vol] 10.6 fL Normal 6.2-12.0 [facility] Comment on above: Performed By: #### L 499.0043 #### [facility] [address] [place], [address] Platelets (Bld) [#/Vol] 197 10*3/uL Normal 150-450 [facility] Comment on above: Performed By: #### L 499.0043 #### [facility] [address] [place], [address] RBC (Bld) [#/Vol] 4.00 10*6/uL Low 4.6-6.2 [facility] Comment on above: Performed By: #### L 499.0043 #### [facility] [address] [place], [address] RDW SD 45.2 fl High 35.1-43.9 [facility] Comment on above: Performed By: #### L 499.0043 #### [facility] [address] [place], [address] WBC (Bld) [#/Vol] 29.0 10*3/uL High 4.4-11.0 [facility] Comment on above: Performed By: #### L 499.0043 #### [facility] [address] [place], [address] L509.7001on 01-05-2025 Procalcitonin 0.09 ng/mL Normal <=0.10 [facility] Comment on above: Result Comment: Inte rpretation: [...] Performed By: #### L 100.0100, L500.2500 #### [facility] [address] [place], [address] Basic Metabolic Profile (BMP )on 01-04-2025 BUN/CRE 28.8 RATIO High 10-20 [facility] Comment on above: Performed By: #### L 100.0100, L500.2500 #### [facility] [address] [place], [address] Calcium [Mass/Vol] 8.4 mg/dL Normal 7.6-11.0 [facility] Comment on above: Performed By: #### L 100.0100, L500.2500 #### [facility] [address] [place], [address] Chloride [Moles/Vol] 106 mmol/L Normal 98-108 [facility] Comment on above: Performed By: #### L 100.0100, L500.2500 #### [facility] [address] [place], [address] CO2 [Moles/Vol] 23.6 mmol/L Normal 21.0-32.0 [facility] Comment on above: Performed By: #### L 100.0100, L500.2500 #### [facility] [address] [place], [address] Creatinine [Mass/Vol] 1.19 mg/dL Normal 0.70-1.20 [facility] Comment on above: Performed By: #### L 100.0100, L500.2500 #### [facility] [address] [place], [address] ECRCL 61.38 ml/min Normal 50-250 [facility] Comment on above: Performed By: #### L 100.0100, L500.2500 #### [facility] [address] [place], [address] GAP 10 Normal 5-15 [facility] Comment on above: Performed By: #### L 100.0100, L500.2500 #### [facility] [address] [place], [address] GFR/1.73 sq M.predicted among non-blacks MDRD (S/P/Bld) [Vol rate/Area] 63 mL/min/{1.73_m2} Normal >60 [facility] Comment on above: Result Comment: mL/m in/1.73m2 CKD-EPI Creatinine Equation (2020) Performed By: #### L 100.0100, L500.2500 #### [facility] [address] [place], [address] Glucose [Mass/Vol] 167 mg/dL High 70-99 [facility] Comment on above: Performed By: #### L 100.0100, L500.2500 #### [facility] [address] [place], [address] Potassium [Moles/Vol] 4.2 mmol/L Normal 3.3-5.1 [facility] Comment on above: Performed By: #### L 100.0100, L500.2500 #### [facility] [address] [place], [address] Sodium [Moles/Vol] 139 mmol/L Normal 133-145 [facility] Comment on above: Performed By: #### L 100.0100, L500.2500 #### [facility] [address] [place], [address] Urea nitrogen [Mass/Vol] 34 mg/dL High 4-19 [facility] Comment on above: Performed By: #### L 100.0100, L500.2500 #### [facility] [address] [place], [address] CBC W/Diff, Automatedon 11 SMEAR COMMENT SCANNED Normal [facility] Comment on above: Result Comment: MONO CYTOSIS PRESENT NEUTROPHILIA PRESENT Performed By: #### L 100.0100, L500.2500 #### [facility] [address] [place], [address] CBC-Complete Blood Cnt No Di ffon 01-04-2025 Erythrocyte distribution width (RBC) [Ratio] 13.7 % Normal 11.6-14.6 [facility] Comment on above: Order Comment: Comme nts: hgb drop Performed By: #### L 100.0100, L500.2500 #### [facility] [address] [place], [address] Hematocrit (Bld) [Volume fraction] 36.3 % Low 40-54 [facility] Comment on above: Order Comment: Comme nts: hgb drop Performed By: #### L 100.0100, L500.2500 #### [facility] [address] [place], [address] Hemoglobin (Bld) [Mass/Vol] 11.9 g/dL Low 13.0-16.5 [facility] Comment on above: Order Comment: Comme nts: hgb drop Performed By: #### L 100.0100, L500.2500 #### [facility] [address] [place], [address] MCH (RBC) [Entitic mass] 29.2 pg Normal 27.0-32.0 [facility] Comment on above: Order Comment: Comme nts: hgb drop Performed By: #### L 100.0100, L500.2500 #### [facility] [address] [place], [address] MCHC (RBC) [Mass/Vol] 32.8 g/dL Normal 32-36 [facility] Comment on above: Order Comment: Comme nts: hgb drop Performed By: #### L 100.0100, L500.2500 #### [facility] [address] [place], [address] MCV (RBC) [Entitic vol] 89.0 fL Normal 80-[address] [facility] Comment on above: Order Comment: Comme nts: hgb drop Performed By: #### L 100.0100, L500.2500 #### [facility] [address] [place], [address] Platelet mean volume (Bld) [Entitic vol] 10.2 fL Normal 6.2-12.0 [facility] Comment on above: Order Comment: Comme nts: hgb drop Performed By: #### L 100.0100, L500.2500 #### [facility] Laboratory [address] [place], [address] Platelets (Bld) [#/Vol] 202 10*3/uL Normal 150-450 [facility] Comment on above: Order Comment: Comme nts: hgb drop Performed By: #### L 100.0100, L500.2500 #### [facility] Laboratory [address], [address] RBC (Bld) [#/Vol] 4.08 10*6/uL Low 4.6-6.2 [facility] Comment on above: Order Comment: Comme nts: hgb drop Performed By: #### L 100.0100, L500.2500 #### [facility] [address] [place], [address] RDW SD 44.6 fl High 35.1-43.9 [facility] Comment on above: Order Comment: Comme nts: hgb drop Performed By: #### L 100.0100, L500.2500 #### [facility] Laboratory [address], [address] WBC (Bld) [#/Vol] 24.8 10*3/uL High 4.4-11.0 [facility] Comment on above: Order Comment: Comme nts: hgb drop Performed By: #### L 100.0100, L500.2500 #### [facility] Laboratory [address] [place], [address] Chest 1 View (Portable)on Chest 1 View (Portable) [facility] Imaging Services [address] [place] [address] Chest 1 View (Portable) MR#: [id number] Acct: [id number] Name: JANEALLAN ALEKSANDAR Rep #: [id number] : 1950 M 74 From: Vignesh laboy MD PCP: Dr. Simone Messer MD Status: ADM IN Study: Chest 1 View (Portable) Date of Exam: 01/04/25 Exam# [id number] Ordering Dr: Morris Paulino DO PROCEDURE: CHEST [...] by possible minimal pleural effusion/reaction. Reading Location: [place] [address] CC: Dr. Morris Paulino DO; Dr. Simone Messer MD Web Coordinator: Signed Normal [facility] 12 Lead EKGon 01-03-2025 12 Lead EKG [facility] Cardiovascular Services [address] [place] [address] 12 Lead EKG 01/03/25 0620 MR#: [id number] Acct: [id number] Name: ALLAN LARA Rep #: [id number] : 1950 74 From: Allan Deluna MD Attending Dr: Dr. Kendra Herrera MD Status: ADM IN Ordering Dr: Daren Hermosillo DO Date: 01/03/25 [place] [facility] [place]: M C Admitted: 01/03/25 Test Reason [...] msec Abnormal ECG Confirmed by Allan Deluna ([id number]), editor book ALEX QUESADA ([id number]) on 01/06/2025 1:06:03 PM Referred By: MATT Confirmed By: Allan Deluna 01/06/25 1306 Date Allan Deluna MD CC: Dr. Daren Hermosillo DO; Dr. Kendra Herrera MD; Dr. Simone Messer MD Signed Normal [facility] Basic Metabolic Profile (BMP )on 01-03-2025 BUN/CRE 15.5 RATIO Normal 10-20 [facility] Comment on above: Performed By: #### L 300.4310, L501.4021, L500.3400, L100.0100, L501.2450, L300.3900, L503.6005, BTS, L500.2500 ####[facility] [address] [place], [address] Calcium [Mass/Vol] 9.5 mg/dL Normal 7.6-11.0 [facility] Comment on above: Performed By: #### L 300.4310, L501.4021, L500.3400, L100.0100, L501.2450, L300.3900, L503.6005, BTS, L500.2500 ####[facility] [address] [place], [address] Chloride [Moles/Vol] 101 mmol/L Normal 98-108 [facility] Comment on above: Performed By: #### L 300.4310, L501.4021, L500.3400, L100.0100, L501.2450, L300.3900, L503.6005, BTS, L500.2500 ####[facility] [address] [place], [address] CO2 [Moles/Vol] 27.4 mmol/L Normal 21.0-32.0 [facility] Comment on above: Performed By: #### L 300.4310, L501.4021, L500.3400, L100.0100, L501.2450, L300.3900, L503.6005, BTS, L500.2500 ####[facility] [address] [place], [address] Creatinine [Mass/Vol] 1.12 mg/dL Normal 0.70-1.20 [facility] Comment on above: Performed By: #### L 300.4310, L501.4021, L500.3400, L100.0100, L501.2450, L300.3900, L503.6005, BTS, L500.2500 ####[facility] [address] [place], [address] ECRCL 56.11 ml/min Normal 50-250 [facility] Comment on above: Performed By: #### L 300.4310, L501.4021, L500.3400, L100.0100, L501.2450, L300.3900, L503.6005, BTS, L500.2500 ####[facility] [address] [place], [address] GAP 12 Normal 5-15 [facility] Comment on above: Performed By: #### L 300.4310, L501.4021, L500.3400, L100.0100, L501.2450, L300.3900, L503.6005, BTS, L500.2500 ####[facility] [address] [place], [address] GFR/1.73 sq M.predicted among non-blacks MDRD (S/P/Bld) [Vol rate/Area] 68 mL/min/{1.73_m2} Normal >60 [facility] Comment on above: Result Comment: mL/m in/1.73m2 CKD-EPI Creatinine Equation (2020) Performed By: #### L 300.4310, L501.4021, L500.3400, L100.0100, L501.2450, L300.3900, L503.6005, BTS, L500.2500 ####[facility] [address] [place], [address] Glucose [Mass/Vol] 212 mg/dL High 70-99 [facility] Comment on above: Performed By: #### L 300.4310, L501.4021, L500.3400, L100.0100, L501.2450, L300.3900, L503.6005, BTS, L500.2500 ####[facility] [address] [place], [address] Potassium [Moles/Vol] 4.0 mmol/L Normal 3.3-5.1 [facility] Comment on above: Performed By: #### L 300.4310, L501.4021, L500.3400, L100.0100, L501.2450, L300.3900, L503.6005, BTS, L500.2500 ####[facility] [address] [place], [address] Sodium [Moles/Vol] 141 mmol/L Normal 133-145 [facility] Comment on above: Performed By: #### L 300.4310, L501.4021, L500.3400, L100.0100, L501.2450, L300.3900, L503.6005, BTS, L500.2500 ####[facility] [address] [place], [address] Urea nitrogen [Mass/Vol] 17 mg/dL Normal 4-19 [facility] Comment on above: Performed By: #### L 300.4310, L501.4021, L500.3400, L100.0100, L501.2450, L300.3900, L503.6005, BTS, L500.2500 ####[facility] [address] [place], [address] CBC W/Diff, Automatedon 10-3 -2024 Absolute Lymph 1.07 X10 3/uL Normal 0.83-4.51 [facility] Comment on above: Performed By: #### L 300.4310, L501.4021, L500.3400, L100.0100, L501.2450, L300.3900, L503.6005, BTS, L500.2500 #### [facility] Laboratory [address] [place], [address] Absolute Neut 25.5 X10 3/uL High 2.0-7.7 [facility] Comment on above: Performed By: #### L 300.4310, L501.4021, L500.3400, L100.0100, L501.2450, L300.3900, L503.6005, BTS, L500.2500 #### [facility] Laboratory [address] [place], [address] Basophils/100 WBC (Bld) 0.3 % Normal 0-[address] [facility] Comment on above: Performed By: #### L 300.4310, L501.4021, L500.3400, L100.0100, L501.2450, L300.3900, L503.6005, BTS, L500.2500 #### [facility] [address] [place], [address] Eosinophils/100 WBC (Bld) 0.1 % Normal 0-5 [facility] Comment on above: Performed By: #### L 300.4310, L501.4021, L500.3400, L100.0100, L501.2450, L300.3900, L503.6005, BTS, L500.2500 #### [facility] [address] [place], [address] Erythrocyte distribution width (RBC) [Ratio] 13.1 % Normal 11.6-14.6 [facility] Comment on above: Performed By: #### L 300.4310, L501.4021, L500.3400, L100.0100, L501.2450, L300.3900, L503.6005, BTS, L500.2500 #### [facility] [address] [place], [address] Hematocrit (Bld) [Volume fraction] 43.9 % Normal 40-54 [facility] Comment on above: Performed By: #### L 300.4310, L501.4021, L500.3400, L100.0100, L501.2450, L300.3900, L503.6005, BTS, L500.2500 #### [facility] [address] [facility] [place], [address] Hemoglobin (Bld) [Mass/Vol] 14.7 g/dL Normal 13.0-16.5 [facility] Comment on above: Performed By: #### L 300.4310, L501.4021, L500.3400, L100.0100, L501.2450, L300.3900, L503.6005, BTS, L500.2500 #### [facility] [address] [facility] [place], [address] IG% 1.000 High 0.0-0.9 [facility] Comment on above: Result Comment: IG% - Immature Granulocytes (promyelocytes, myelocytes and metamyelocytes) > 1% indicates that a LEFT SHIFT is Present. Performed By: #### L 300.4310, L501.4021, L500.3400, L100.0100, L501.2450, L300.3900, L503.6005, BTS, L500.2500 #### [facility] [address] [place], [address] Lymphocytes/100 WBC (Bld) 3.8 % Low 19-41 [facility] Comment on above: Performed By: #### L 300.4310, L501.4021, L500.3400, L100.0100, L501.2450, L300.3900, L503.6005, BTS, L500.2500 #### [facility] [address] [place], [address] MCH (RBC) [Entitic mass] 29.4 pg Normal 27.0-32.0 [facility] Comment on above: Performed By: #### L 300.4310, L501.4021, L500.3400, L100.0100, L501.2450, L300.3900, L503.6005, BTS, L500.2500 #### [facility] [address], [address] MCHC (RBC) [Mass/Vol] 33.5 g/dL Normal 32-36 [facility] Comment on above: Performed By: #### L 300.4310, L501.4021, L500.3400, L100.0100, L501.2450, L300.3900, L503.6005, BTS, L500.2500 #### [facility] [address], [address] MCV (RBC) [Entitic vol] 87.8 fL Normal 80-[address] [facility] Comment on above: Performed By: #### L 300.4310, L501.4021, L500.3400, L100.0100, L501.2450, L300.3900, L503.6005, BTS, L500.2500 #### [facility] [address] [place], [address] Monocytes/100 WBC (Bld) 3.5 % Normal 0-10 [facility] [facility] Comment on above: Performed By: #### L 300.4310, L501.4021, L500.3400, L100.0100, L501.2450, L300.3900, L503.6005, BTS, L500.2500 #### [facility] [address] [place], [address] Neutrophils/100 WBC (Bld) 91.3 % High 47-70 [facility] Comment on above: Performed By: #### L 300.4310, L501.4021, L500.3400, L100.0100, L501.2450, L300.3900, L503.6005, BTS, L500.2500 #### [facility] [address] [place], [address] Nucleated RBC (Bld) [#/Vol] 0 10*3/uL Normal 0-5 [facility] Comment on above: Performed By: #### L 300.4310, L501.4021, L500.3400, L100.0100, L501.2450, L300.3900, L503.6005, BTS, L500.2500 #### [facility] [address] [place], [address] Platelet mean volume (Bld) [Entitic vol] 10.1 fL Normal 6.2-12.0 [facility] Comment on above: Performed By: #### L 300.4310, L501.4021, L500.3400, L100.0100, L501.2450, L300.3900, L503.6005, BTS, L500.2500 #### [facility] [address] [place], [address] Platelets (Bld) [#/Vol] 252 10*3/uL Normal 150-450 [facility] Comment on above: Performed By: #### L 300.4310, L501.4021, L500.3400, L100.0100, L501.2450, L300.3900, L503.6005, BTS, L500.2500 #### [facility] [address] [place], [address] RBC (Bld) [#/Vol] 5.00 10*6/uL Normal 4.6-6.2 [facility] Comment on above: Performed By: #### L 300.4310, L501.4021, L500.3400, L100.0100, L501.2450, L300.3900, L503.6005, BTS, L500.2500 #### [facility] [address], [address] RDW SD 42.0 fl Normal 35.1-43.9 [facility] Comment on above: Performed By: #### L 300.4310, L501.4021, L500.3400, L100.0100, L501.2450, L300.3900, L503.6005, BTS, L500.2500 #### [facility] [address] [facility] [place], [address] WBC (Bld) [#/Vol] 28.0 10*3/uL High 4.4-11.0 [facility] Comment on above: Performed By: #### L 300.4310, L501.4021, L500.3400, L100.0100, L501.2450, L300.3900, L503.6005, BTS, L500.2500 #### [facility] [address] [place], [address] CTA Chst, Abd, Pel W and/or WOon 01-03-2025 CTA Chst, Abd, Pel W and/or WO [facility] Imaging Services [address] [place] [address] CTA Chst, Abd, Pel W and/or WO MR#: [id number] Acct: [id number] Name: ALLAN LARA Rep #: [id number] : 1950 M 74 From: Jay willis MD PCP: Dr. Simone Messer MD Status: [facility] ER Study: CTA Chst, Abd, Pel W and/or WO Date of Exam: Exam# [id number] Ordering Dr: Arron Linares DO PROCEDURE: CTA [...] is seen in the colon. Reading Location: [id number] CC: Dr. Arron Linares DO; Dr. Simone Messer MD Web Coordinator: Signed Normal [facility] Chest 1 View (Portable)on Chest 1 View (Portable) [facility] Imaging Services [address] [place] [address] Chest 1 View (Portable) MR#: [id number] Acct: [id number] Name: ALLAN LARA Rep #: [id number] : 1950 M 74 From: Jose Loya PCP: Dr. Simone Messer MD Status: REG ER Study: Chest 1 View (Portable) Date of Exam: 01/03/25 Exam# [id number] Ordering Dr: Daren Hermosillo DO PROCEDURE: CHEST 1 VIEW (PORTABLE) 01/03/2025 REASON FOR EXAM: CHEST PAIN TECHNIQUE: Frontal view of the chest. COMPARISON: None. RAD/Chest 1 View (Portable) IMPRESSION: Lungs are hypoinflated with bibasilar atelectasis, zuchj-iridlyi-atio-l eft; cannot entirely exclude the presence of pneumonitis. No pleural effusion or pneumothorax is noted. The cardiomediastinal silhouette is remarkable for a somewhat calcified and tortuous aorta; no evidence of cardiomegaly. Prominent degenerative changes are seen of the bilateral glenohumeral and acromioclavicular joints, both fiai-ewtlvkw-hqib-ri ght. No acute osseous change is seen. Reading Location: [facility] CC: Dr. Daren Hermosillo DO; Dr. Simone Messer MD Web Coordinator: Signed Normal [facility] Emergency Department Summary on 01-03-2025 Emergency Department Summary [facility] Medical Records Department [address] [place] [address] Emergency Department Summary 01/03/25 MR#: [id number] Acct: [id number] Name: ALLAN LARA Rep #: [id number] : 1950 74 From: Daren Hermosillo DO PCP: Dr. Simone Messer MD Status:REG ER Location: ED ADDENDUM by Dr. Arron Linares DO on 01/03/25 at 1018 0705 patient was transitioned to fl from Dr. Hermosillo. 1000 I have spoken to the hospitalist, Dr. Paulino. Recommendation was not to give another liter of IV fluids and no additional antibiotics at this time. Patient will be admitted to [facility]. Patient is currently full code. We [...] mid anterior aspect of his chest today. long-term as well as EMS notes several episodes of emesis with black appearance. Last time of p.o. intake and what it was is unknown. long-term also reports that he was hypoxic and sometimes wears oxygen as needed. Patient denies any current shortness of breath. He cannot tell me anything about his bowel movements. He denies any current abdominal pain. Per senior care paperwork patient is a full code [facility] Medical History Neoplasm of right kidney Dementia [...] 0.5 mg (more content not included)... Normal [facility] H AND P Exam - Hospitaliston 01-03-2025 H&P Exam - Hospitalist [facility] Medical Records Department [address] [place] [address] H P Exam - Hospitalist 01/03/25 1833 MR#: [id number] Acct: [id number] Name: ALLAN LARA Rep #: [id number] : 1950 74 From: Morris Paulino DO PCP: Dr. Simone Messer MD Status:ADM [place] [facility] [id number] HPI - General General Date of Admission: 01/03/25 Date of Service: 01/03/25 Chief Complaint: Chest pain and vomiting HPI Narrative LALAN LARA, is a 74 M who presents to the emergency room at [facility] after being transported from an intermediate care facility (in a memory unit) due to chest pain and vomiting. Patient has a history of dementia he does not respond to questions. Evidently according to the senior care, the emesis had some black appearance to [...] the colon. Patient will be admitted to [place] [address] for aspiration/aspiratio n pneumonia, he will be [...] Source Or (more content not included)... Normal [facility] L501.4021on 01-03-2025 Trop T High Sen 18 ng/L Normal <=22 [facility] Comment on above: Performed By: #### L 499.0043 #### [facility] [address] [place], [place], [address] Trop T High Sen 17 ng/L Normal <=22 [facility] Comment on above: Performed By: #### L 300.4310, L501.4021, L500.3400, L100.0100, L501.2450, L300.3900, L503.6005, BTS, L500.2500 ####[facility] [address] [place], [address] Lactic Acidon 01-03-2025 Lactate [Moles/Vol] 3.6 mmol/L Invalid Interpretation Code 0.0-2.0 [facility] Comment on above: Result Comment: Crit ical Result(s) Called at: 1152 01/03/2025 by: PORSCHE GUALLPA??Results read back by same. Performed By: #### L 100.0100, L500.2500 #### [facility] [address] [place], [address] Lactate [Moles/Vol] 2.7 mmol/L Invalid Interpretation Code 0.0-2.0 [facility] Comment on above: Order Comment: Y Result Comment: Crit ical Result(s) Called at: 0720 01/03/2025 by: REGGIE CRAWFORD??Results read back by same. Performed By: #### L 300.4310, L501.4021, L500.3400, L100.0100, L501.2450, L300.3900, L503.6005, BTS, L500.2500 ####[facility] [address] [place], [address] Lipaseon 01-03-2025 Lipase [Catalytic activity/Vol] 25 U/L Normal 13-75 [facility] Comment on above: Result Comment: Jessica rhodes note: LIPASE revised reference range effective 22. New Lipase methodology. Expected to produce lower values than the previous assay method. NEW Reference Range: 13 - 75 U/L Performed By: #### L 300.4310, L501.4021, L500.3400, L100.0100, L501.2450, L300.3900, L503.6005, BTS, L500.2500 ####[facility] [address] [place], [address] Liver Profileon 01-03-2025 Albumin [Mass/Vol] 4.0 g/dL Normal 3.4-4.8 [facility] Comment on above: Performed By: #### L 300.4310, L501.4021, L500.3400, L100.0100, L501.2450, L300.3900, L503.6005, BTS, L500.2500 ####[facility] [address] [place], [address] ALK PHOS 87 U/L Normal 40-129 [facility] Comment on above: Performed By: #### L 300.4310, L501.4021, L500.3400, L100.0100, L501.2450, L300.3900, L503.6005, BTS, L500.2500 ####[facility] [address] [place], [address] ALT [Catalytic activity/Vol] 14 U/L Normal <=46 [facility] Comment on above: Performed By: #### L 300.4310, L501.4021, L500.3400, L100.0100, L501.2450, L300.3900, L503.6005, BTS, L500.2500 ####[facility] [address] [place], [address] AST [Catalytic activity/Vol] 16 U/L Normal <=37 [facility] Comment on above: Performed By: #### L 300.4310, L501.4021, L500.3400, L100.0100, L501.2450, L300.3900, L503.6005, BTS, L500.2500 ####[facility] [address] [place], [address] Bilirubin [Mass/Vol] 0.33 mg/dL Normal 0.00-1.30 [facility] Comment on above: Performed By: #### L 300.4310, L501.4021, L500.3400, L100.0100, L501.2450, L300.3900, L503.6005, BTS, L500.2500 ####[facility] [address] [place], [address] Bilirubin.direct [Mass/Vol] 0.15 mg/dL Normal 0.00-0.30 [facility] Comment on above: Performed By: #### L 300.4310, L501.4021, L500.3400, L100.0100, L501.2450, L300.3900, L503.6005, BTS, L500.2500 ####[facility] [address] [place], [address] Globulin (S) [Mass/Vol] 3.1 g/dL Normal 2.2-4.2 [facility] Comment on above: Performed By: #### L 300.4310, L501.4021, L500.3400, L100.0100, L501.2450, L300.3900, L503.6005, BTS, L500.2500 ####[facility] [address] [place], [address] T PROT 7.2 g/dL Normal 5.9-8.4 [facility] Comment on above: Performed By: #### L 300.4310, L501.4021, L500.3400, L100.0100, L501.2450, L300.3900, L503.6005, BTS, L500.2500 ####[facility] [address] [place], [address] Partial Thromboplast Timeon 01-03-2025 aPTT Coag (Bld) [Time] 25.3 s Normal 24.1-36.2 [facility] Comment on above: Performed By: #### L 300.4310, L501.4021, L500.3400, L100.0100, L501.2450, L300.3900, L503.6005, BTS, L500.2500 ####[facility] [address] [place], [address] Prothrombin Time w/INRon INR Coag (PPP) [Relative time] 1.0 {INR} Normal [facility] Comment on above: Performed By: #### L 300.4310, L501.4021, L500.3400, L100.0100, L501.2450, L300.3900, L503.6005, BTS, L500.2500 #### [facility] [address] [place], [address] PT Coag (PPP) [Time] 12.8 s Normal 11.7-14.9 [facility] Comment on above: Performed By: #### L 300.4310, L501.4021, L500.3400, L100.0100, L501.2450, L300.3900, L503.6005, BTS, L500.2500 #### [facility] [address] [place], [address] Troponin T HS 2 HRon 025 Trop T High Sen Normal <=22 [facility] Comment on above: Result Comment: ONLY INITIAL NEEDED PER NADJA AND DR. WILLIS, CANCELLIING 2 AND 4 HR. Performed By: #### L 499.0043 #### [facility] [address] [place], [address] Trop T High Sen 18 ng/L Normal <=22 [facility] Comment on above: Performed By: #### L 499.0043 #### [facility] [address] [place], [address] Troponin T HS 4 HRon 025 Trop T High Sen Normal <=22 [facility] Comment on above: Result Comment: INIT IAL TROP NEEDED ONLY, CANCELLING 2 AND 4 HR PER NADJA AND DR WILLIS Performed By: #### L 499.0043 #### [facility] [address] [place], [address] Type AND Screenon 01-03-2025 ABO and Rh group Nom (Bld) Blood group B Rh(D) positive Normal [facility] Comment on above: Order Comment: HGI Performed By: #### L 300.4310, L501.4021, L500.3400, L100.0100, L501.2450, L300.3900, L503.6005, BTS, L500.2500 ####[facility] [address] [place], [address] Ab SCREEN GEL Negative Normal [facility] Comment on above: Order Comment: HGI Performed By: #### L 300.4310, L501.4021, L500.3400, L100.0100, L501.2450, L300.3900, L503.6005, BTS, L500.2500 ####[facility] [address] [place], [address] Urinalysis, Completeon 01-03 EPI,RENAL 0-5 SEEN Normal 0-5 [facility] Comment on above: Order Comment: JOANNA TER SPECIMEN Performed By: #### L 400.0001 #### [facility] [address] [place], [address] RBC 0-5 SEEN Normal 0-5 [facility] Comment on above: Order Comment: JOANNA TER SPECIMEN Performed By: #### L 400.0001 #### [facility] [address] [place], [address] BACTERIA 0 SEEN Normal None Seen [facility] Comment on above: Order Comment: JOANNA TER SPECIMEN Performed By: #### L 400.0001 #### [facility] [address] [place], [address] EPI,SQUAMOUS 0 SEEN Normal 0-5 [facility] Comment on above: Order Comment: JOANNA TER SPECIMEN Performed By: #### L 400.0001 #### [facility] [address] [place], [address] Mucus Ql (Urine sed) 0 SEEN Normal [facility] Comment on above: Order Comment: JOANNA TER SPECIMEN Performed By: #### L 400.0001 #### [facility] [address] [place], [address] WBC 0 SEEN Normal 0-5 [facility] Comment on above: Order Comment: JOANNA TER SPECIMEN Performed By: #### L 400.0001 #### [facility] [address] [place], [address] Culture, Blood (WB)on 2024 CUB Blood cultures x2, from two different sites No growth in 5 days. Normal [facility] Comment on above: Performed By: #### L 503.6005 #### [facility] [address] [place], [address] Basic Metabolic Profile (BMP )on 03-22-2024 BUN/CRE 7.1 RATIO Low 10-20 [facility] Comment on above: Performed By: #### L 100.0100, L500.2500 #### [facility] [address] [place], [address] CA,Total 9.0 mg/dL Normal 8.5-10.1 [facility] Comment on above: Performed By: #### L 100.0100, L500.2500 #### [facility] [address] [place], [address] Chloride [Moles/Vol] 109 mmol/L High 98-107 [facility] Comment on above: Performed By: #### L 100.0100, L500.2500 #### [facility] [address] [place], [address] CO2 [Moles/Vol] 26.0 mmol/L Normal 21.0-32.0 [facility] Comment on above: Performed By: #### L 100.0100, L500.2500 #### [facility] [address] [place], [address] Creatinine [Mass/Vol] 0.99 mg/dL Normal 0.70-1.30 [facility] Comment on above: Result Comment: The validity of the calculated GFR GFRAA in patients over 70 years has not been determined. Clinical correlation is essential. Performed By: #### L 100.0100, L500.2500 #### [facility] [address] [place], [address] ECRCL 64.47 ml/min Normal [facility] Comment on above: Performed By: #### L 100.0100, L500.2500 #### [facility] [address] [place], [address] EST GFR - AA 95 mL/min Normal >60 [facility] Comment on above: Result Comment: Afri can Jordanian GFR Calc Performed By: #### L 100.0100, L500.2500 #### [facility] [address] [place], [address] GAP 7 Normal 5-15 [facility] Comment on above: Performed By: #### L 100.0100, L500.2500 #### [facility] [address] [place], [address] GFR/1.73 sq M.predicted among non-blacks MDRD (S/P/Bld) [Vol rate/Area] 78 mL/min/{1.73_m2} Normal >60 [facility] Comment on above: Result Comment: Non- GFR Calc Performed By: #### L 100.0100, L500.2500 #### [facility] [address] [place], [address] Glucose [Mass/Vol] 165 mg/dL High 74-106 [facility] Comment on above: Result Comment: Fast ing Glucose result greater than or equal to 126 mg/dL suggests DIABETES MELLITUS per A.D.A. criteria. Performed By: #### L 100.0100, L500.2500 #### [facility] [address] [place], [address] Potassium [Moles/Vol] 3.4 mmol/L Low 3.5-5.1 [facility] Comment on above: Performed By: #### L 100.0100, L500.2500 #### [facility] [address] [place], [address] Sodium [Moles/Vol] 142 mmol/L Normal 136-145 [facility] Comment on above: Performed By: #### L 100.0100, L500.2500 #### [facility] [address] [place], [address] Urea nitrogen [Mass/Vol] 7 mg/dL Normal 7-18 [facility] Comment on above: Performed By: #### L 100.0100, L500.2500 #### [facility] [address] [place], [address] CBC W/Diff, Automatedon 03-06 Absolute Lymph 1.79 X10 3/uL Normal 0.83-4.51 [facility] Comment on above: Performed By: #### L 100.0100, L500.2500 #### [facility] [address] [place], [address] Absolute Neut 6.9 X10 3/uL Normal 2.0-7.7 [facility] Comment on above: Performed By: #### L 100.0100, L500.2500 #### [facility] [address] [place], [address] Basophils/100 WBC (Bld) 0.5 % Normal 0-[address] [facility] Comment on above: Performed By: #### L 100.0100, L500.2500 #### [facility] [address] [place], [address] Eosinophils/100 WBC (Bld) 4.6 % Normal 0-5 [facility] Comment on above: Performed By: #### L 100.0100, L500.2500 #### [facility] [address] [place], [address] Erythrocyte distribution width (RBC) [Ratio] 13.0 % Normal 11.6-14.6 [facility] Comment on above: Performed By: #### L 100.0100, L500.2500 #### [facility] [address] [place], [address] Hematocrit (Bld) [Volume fraction] 39.5 % Low 40-54 [facility] Comment on above: Performed By: #### L 100.0100, L500.2500 #### [facility] [address] [place], [address] Hemoglobin (Bld) [Mass/Vol] 12.9 g/dL Low 13.0-16.5 [facility] Comment on above: Performed By: #### L 100.0100, L500.2500 #### [facility] [address] [place], [address] IG% 2.700 High 0.0-0.9 [facility] Comment on above: Result Comment: IG% - Immature Granulocytes (promyelocytes, myelocytes and metamyelocytes) > 1% indicates that a LEFT SHIFT is Present. Performed By: #### L 100.0100, L500.2500 #### [facility] [address] [place], [address] Lymphocytes/100 WBC (Bld) 17.1 % Low 19-41 [facility] Comment on above: Performed By: #### L 100.0100, L500.2500 #### [facility] [address] [place], [address] MCH (RBC) [Entitic mass] 29.7 pg Normal 27.0-32.0 [facility] Comment on above: Performed By: #### L 100.0100, L500.2500 #### [facility] [address] [place], [address] MCHC (RBC) [Mass/Vol] 32.7 g/dL Normal 32-36 [facility] Comment on above: Performed By: #### L 100.0100, L500.2500 #### [facility] [address] [place], [address] MCV (RBC) [Entitic vol] 90.8 fL Normal 80-[address] [facility] Comment on above: Performed By: #### L 100.0100, L500.2500 #### [facility] [address] [place], [address] Monocytes/100 WBC (Bld) 8.8 % Normal 0-[address] [facility] Comment on above: Performed By: #### L 100.0100, L500.2500 #### [facility] [address] [place], [address] Neutrophils/100 WBC (Bld) 66.3 % Normal 47-70 [facility] Comment on above: Performed By: #### L 100.0100, L500.2500 #### [facility] [address] [place], [address] Nucleated RBC (Bld) [#/Vol] 0 10*3/uL Normal 0-5 [facility] Comment on above: Performed By: #### L 100.0100, L500.2500 #### [facility] [address] [place], [address] Platelet mean volume (Bld) [Entitic vol] 10.2 fL Normal 6.2-12.0 [facility] Comment on above: Performed By: #### L 100.0100, L500.2500 #### [facility] [address] [place], [address] Platelets (Bld) [#/Vol] 190 10*3/uL Normal 150-450 [facility] Comment on above: Performed By: #### L 100.0100, L500.2500 #### [facility] [address] [place], [address] RBC (Bld) [#/Vol] 4.35 10*6/uL Low 4.6-6.2 [facility] Comment on above: Performed By: #### L 100.0100, L500.2500 #### [facility] [address] [place], [address] RDW SD 43.3 fl Normal 35.1-43.9 [facility] Comment on above: Performed By: #### L 100.0100, L500.2500 #### [facility] [address] [place], [address] WBC (Bld) [#/Vol] 10.4 10*3/uL Normal 4.4-11.0 [facility] Comment on above: Performed By: #### L 100.0100, L500.2500 #### [facility] [address] [place], [address] Magnesiumon 03-22-2024 Magnesium [Mass/Vol] 2.2 mg/dL Normal 1.6-2.6 [facility] Comment on above: Performed By: #### L 100.0100, L500.2500 #### [facility] [address] [place], [address] Phosphoruson 03-22-2024 Phosphate [Mass/Vol] 3.2 mg/dL Normal 2.5-4.9 [facility] Comment on above: Performed By: #### L 100.0100, L500.2500 #### [facility] [address] [place], [address] Basic Metabolic Profile (BMP )on 03-21-2024 BUN/CRE 17.0 RATIO Normal 10-20 [facility] Comment on above: Performed By: #### L 100.0100, L500.2500 #### [facility] [address] [place], [address] CA,Total 8.4 mg/dL Low 8.5-10.1 [facility] Comment on above: Performed By: #### L 100.0100, L500.2500 #### [facility] [address] [place], [address] Chloride [Moles/Vol] 112 mmol/L High 98-107 [facility] Comment on above: Performed By: #### L 100.0100, L500.2500 #### [facility] [address] [place], [address] CO2 [Moles/Vol] 24.0 mmol/L Normal 21.0-32.0 [facility] Comment on above: Performed By: #### L 100.0100, L500.2500 #### [facility] [address] [place], [address] Creatinine [Mass/Vol] 0.88 mg/dL Normal 0.70-1.30 [facility] Comment on above: Result Comment: The validity of the calculated GFR GFRAA in patients over 70 years has not been determined. Clinical correlation is essential. Performed By: #### L 100.0100, L500.2500 #### [facility] [address] [place], [address] ECRCL 72.53 ml/min Normal [facility] Comment on above: Performed By: #### L 100.0100, L500.2500 #### [facility] [address] [place], [address] EST GFR - AA 108 mL/min Normal >60 [facility] Comment on above: Result Comment: Afri can Jordanian GFR Calc Performed By: #### L 100.0100, L500.2500 #### [facility] [address] [place], [address] GAP 5 Normal 5-15 [facility] Comment on above: Performed By: #### L 100.0100, L500.2500 #### [facility] [address] [place], [address] GFR/1.73 sq M.predicted among non-blacks MDRD (S/P/Bld) [Vol rate/Area] 89 mL/min/{1.73_m2} Normal >60 [facility] Comment on above: Result Comment: Non- GFR Calc Performed By: #### L 100.0100, L500.2500 #### [facility] [address] [place], [address] Glucose [Mass/Vol] 127 mg/dL High 74-106 [facility] Comment on above: Result Comment: Fast ing Glucose result greater than or equal to 126 mg/dL suggests DIABETES MELLITUS per A.D.A. criteria. Performed By: #### L 100.0100, L500.2500 #### [facility] [address] [place], [address] Potassium [Moles/Vol] 3.4 mmol/L Low 3.5-5.1 [facility] Comment on above: Performed By: #### L 100.0100, L500.2500 #### [facility] [address] [place], [address] Sodium [Moles/Vol] 140 mmol/L Normal 136-145 [facility] Comment on above: Performed By: #### L 100.0100, L500.2500 #### [facility] [address] [place], [address] Urea nitrogen [Mass/Vol] 15 mg/dL Normal 7-18 [facility] Comment on above: Performed By: #### L 100.0100, L500.2500 #### [facility] [address] [place], [address] CBC W/Diff, Automatedon 03-06 Absolute Lymph 1.75 X10 3/uL Normal 0.83-4.51 [facility] Comment on above: Performed By: #### L 100.0100, L500.2500 #### [facility] [address] [place], [address] Absolute Neut 9.6 X10 3/uL High 2.0-7.7 [facility] Comment on above: Performed By: #### L 100.0100, L500.2500 #### [facility] [address] [place], [address] Basophils/100 WBC (Bld) 0.4 % Normal 0-[address] [facility] Comment on above: Performed By: #### L 100.0100, L500.2500 #### [facility] [address] [place], [address] Eosinophils/100 WBC (Bld) 3.9 % Normal 0-5 [facility] Comment on above: Performed By: #### L 100.0100, L500.2500 #### [facility] [address] [place], [address] Erythrocyte distribution width (RBC) [Ratio] 12.8 % Normal 11.6-14.6 [facility] Comment on above: Performed By: #### L 100.0100, L500.2500 #### [facility] [address] [place], [address] Hematocrit (Bld) [Volume fraction] 39.0 % Low 40-54 [facility] Comment on above: Performed By: #### L 100.0100, L500.2500 #### [facility] [address] [place], [address] Hemoglobin (Bld) [Mass/Vol] 13.0 g/dL Normal 13.0-16.5 [facility] Comment on above: Performed By: #### L 100.0100, L500.2500 #### [facility] [address] [place], [address] IG% 1.300 High 0.0-0.9 [facility] Comment on above: Result Comment: IG% - Immature Granulocytes (promyelocytes, myelocytes and metamyelocytes) > 1% indicates that a LEFT SHIFT is Present. Performed By: #### L 100.0100, L500.2500 #### [facility] [address], [address] Lymphocytes/100 WBC (Bld) 13.3 % Low 19-41 [facility] Comment on above: Performed By: #### L 100.0100, L500.2500 #### [facility] [address] [place], [address] MCH (RBC) [Entitic mass] 30.2 pg Normal 27.0-32.0 [facility] Comment on above: Performed By: #### L 100.0100, L500.2500 #### [facility] [address] [place], [address] MCHC (RBC) [Mass/Vol] 33.3 g/dL Normal 32-36 [facility] Comment on above: Performed By: #### L 100.0100, L500.2500 #### [facility] [address] [place], [address] MCV (RBC) [Entitic vol] 90.5 fL Normal 80-[address] [facility] Comment on above: Performed By: #### L 100.0100, L500.2500 #### [facility] [address] [place], [address] Monocytes/100 WBC (Bld) 8.6 % Normal 0-[address] [facility] Comment on above: Performed By: #### L 100.0100, L500.2500 #### [facility] [address] [place], [address] Neutrophils/100 WBC (Bld) 72.5 % High 47-70 [facility] Comment on above: Performed By: #### L 100.0100, L500.2500 #### [facility] [address] [place], [address] Nucleated RBC (Bld) [#/Vol] 0 10*3/uL Normal 0-5 [facility] Comment on above: Performed By: #### L 100.0100, L500.2500 #### [facility] [address] [place], [address] Platelet mean volume (Bld) [Entitic vol] 10.7 fL Normal 6.2-12.0 [facility] Comment on above: Performed By: #### L 100.0100, L500.2500 #### [facility] [address] [place], [address] Platelets (Bld) [#/Vol] 158 10*3/uL Normal 150-450 [facility] Comment on above: Performed By: #### L 100.0100, L500.2500 #### [facility] [address] [place], [address] RBC (Bld) [#/Vol] 4.31 10*6/uL Low 4.6-6.2 [facility] Comment on above: Performed By: #### L 100.0100, L500.2500 #### [facility] [address] [place], [address] RDW SD 42.4 fl Normal 35.1-43.9 [facility] Comment on above: Performed By: #### L 100.0100, L500.2500 #### [facility] [address] [place], [address] WBC (Bld) [#/Vol] 13.2 10*3/uL High 4.4-11.0 [facility] Comment on above: Performed By: #### L 100.0100, L500.2500 #### [facility] [address] [place], [address] Urine Cultureon 03-21-2024 URC Culture exhibits no growth. Normal [facility] Comment on above: Performed By: #### L 100.0100, L500.2500 #### [facility] [address] [place], [address] BC GPC IDon 03-20-2024 BC GPC ID Blood cultures x2, from two different sites Enterococcus sp. Not Detected Listeria spp Not Detected NAAT METHOD Testing was performed using nucleic acid amplification Staphylococcus sp. A DETECTED A Streptococcus spp. Not Detected mecA Not Detected Susan/vanB Not Detected Coag Negative Staph Normal [facility] Comment on above: Performed By: #### L 503.6005 #### [facility] [address] [place], [address] Basic Metabolic Profile (BMP )on 03-20-2024 BUN/CRE 23.2 RATIO High 10-20 [facility] Comment on above: Performed By: #### L 499.0043 #### [facility] [address] [place], [address] CA,Total 7.9 mg/dL Low 8.5-10.1 [facility] Comment on above: Performed By: #### L 499.0043 #### [facility] [address] [place], [address] Chloride [Moles/Vol] 113 mmol/L High 98-107 [facility] Comment on above: Performed By: #### L 499.0043 #### [facility] [address] [place], [address] CO2 [Moles/Vol] 23.0 mmol/L Normal 21.0-32.0 [facility] Comment on above: Performed By: #### L 499.0043 #### [facility] [address] [place], [address] Creatinine [Mass/Vol] 1.12 mg/dL Normal 0.70-1.30 [facility] Comment on above: Result Comment: The validity of the calculated GFR GFRAA in patients over 70 years has not been determined. Clinical correlation is essential. Performed By: #### L 499.0043 #### [facility] [address] [place], [address] ECRCL 56.99 ml/min Normal [facility] Comment on above: Performed By: #### L 499.0043 #### [facility] [address] [place], [address] EST GFR - AA 82 mL/min Normal >60 [facility] Comment on above: Result Comment: Afri can Jordanian GFR Calc Performed By: #### L 499.0043 #### [facility] [address] [place], [address] GAP 3 Low 5-15 [facility] Comment on above: Performed By: #### L 499.0043 #### [facility] [address] [place], [address] GFR/1.73 sq M.predicted among non-blacks MDRD (S/P/Bld) [Vol rate/Area] 68 mL/min/{1.73_m2} Normal >60 [facility] Comment on above: Result Comment: Non- GFR Calc Performed By: #### L 499.0043 #### [facility] [address] [place], [address] Glucose [Mass/Vol] 117 mg/dL High 74-106 [facility] Comment on above: Result Comment: Fast ing Glucose result from 100 to 125 mg/dL suggests IMPAIRED HOMEOSTASIS per A.D.A. criteria. Performed By: #### L 499.0043 #### [facility] [address] [place], [address] Potassium [Moles/Vol] 3.9 mmol/L Normal 3.5-5.1 [facility] Comment on above: Performed By: #### L 499.0043 #### [facility] [address] [place], [address] Sodium [Moles/Vol] 140 mmol/L Normal 136-145 [facility] Comment on above: Performed By: #### L 499.0043 #### [facility] [address] [place], [address] Urea nitrogen [Mass/Vol] 26 mg/dL High 7-18 [facility] Comment on above: Performed By: #### L 499.0043 #### [facility] [address] [place], [address] CBC W/Diff, Automatedon 03-06 PLT TNP Normal 150-450 [facility] Comment on above: Result Comment: Plea se note: For this sample, a platelet estimate is provided rather than a platelet count due to platelet clumping. Other parameters associated with this sample are not affected by platelet clumping. If a more accurate platelet count is required, a redraw of the patient will be necessary. Performed By: #### L 499.0043 #### [facility] [address] [place], [address] PLT EST ADEQUATE Normal ADEQ [facility] Comment on above: Performed By: #### L 499.0043 #### [facility] [address] [place], [address] SMEAR COMMENT SCANNED Normal [facility] Comment on above: Result Comment: Plea se note: For this sample, a platelet estimate is provided rather than a platelet count due to platelet clumping. Other parameters associated with this sample are not affected by platelet clumping. If a more accurate platelet count is required, a redraw of the patient will be necessary. Performed By: #### L 499.0043 #### [facility] [address] [place], [address] Urinalysis, Completeon 03-20 BACTERIA RARE Normal None Seen [facility] Comment on above: Order Comment: COLLE CTOR TO SPECIFY Performed By: #### L 100.0100, L500.2500 #### [facility] [address] [place], [address] EPI,SQUAMOUS 0 SEEN Normal 0-5 [facility] Comment on above: Order Comment: COLLE CTOR TO SPECIFY Performed By: #### L 100.0100, L500.2500 #### [facility] [address] [place], [address] Mucus Ql (Urine sed) 0 SEEN Normal [facility] Comment on above: Order Comment: COLLE CTOR TO SPECIFY Performed By: #### L 100.0100, L500.2500 #### [facility] [address] [place], [address] RBC 0 SEEN Normal 0-5 [facility] Comment on above: Order Comment: COLLE CTOR TO SPECIFY Performed By: #### L 100.0100, L500.2500 #### [facility] [address] [place], [address] WBC 0 SEEN Normal 0-5 [facility] Comment on above: Order Comment: COLLE CTOR TO SPECIFY Performed By: #### L 100.0100, L500.2500 #### [facility] [address] [place], [address] CBC W/Diff, Automatedon 03-06 Absolute Lymph 0.26 X10 3/uL Low 0.83-4.51 [facility] Comment on above: Performed By: #### L 499.0043 #### [facility] [address] [place], [address] Absolute Neut 12.3 X10 3/uL High 2.0-7.7 [facility] Comment on above: Performed By: #### L 499.0043 #### [facility] [address] [place], [address] Basophils/100 WBC (Bld) 0.5 % Normal 0-[address] [facility] Comment on above: Performed By: #### L 499.0043 #### [facility] [address] [place], [address] Eosinophils/100 WBC (Bld) 0.1 % Normal 0-5 [facility] Comment on above: Performed By: #### L 499.0043 #### [facility] [address] [place], [address] Erythrocyte distribution width (RBC) [Ratio] 12.8 % Normal 11.6-14.6 [facility] Comment on above: Performed By: #### L 499.0043 #### [facility] [address] [place], [address] Hematocrit (Bld) [Volume fraction] 47.1 % Normal 40-54 [facility] Comment on above: Performed By: #### L 499.0043 #### [facility] [address] [place], [address] Hemoglobin (Bld) [Mass/Vol] 15.8 g/dL Normal 13.0-16.5 [facility] Comment on above: Performed By: #### L 499.0043 #### [facility] [address] [place], [address] IG% 1.600 High 0.0-0.9 [facility] Comment on above: Result Comment: IG% - Immature Granulocytes (promyelocytes, myelocytes and metamyelocytes) > 1% indicates that a LEFT SHIFT is Present. Performed By: #### L 499.0043 #### [facility] [address] [place], [address] Lymphocytes/100 WBC (Bld) 2.0 % Low 19-41 [facility] Comment on above: Performed By: #### L 499.0043 #### [facility] [address] [place], [address] MCH (RBC) [Entitic mass] 30.5 pg Normal 27.0-32.0 [facility] Comment on above: Performed By: #### L 499.0043 #### [facility] [address] [place], [address] MCHC (RBC) [Mass/Vol] 33.5 g/dL Normal 32-36 [facility] Comment on above: Performed By: #### L 499.0043 #### [facility] [address] [place], [address] MCV (RBC) [Entitic vol] 90.9 fL Normal 80-94 [facility] Comment on above: Performed By: #### L 499.0043 #### [facility] [address] [place], [address] Monocytes/100 WBC (Bld) 3.3 % Normal 0-10 [facility] Comment on above: Performed By: #### L 499.0043 #### [facility] [address] [place], [address] Neutrophils/100 WBC (Bld) 92.5 % High 47-70 [facility] Comment on above: Performed By: #### L 499.0043 #### [facility] [address] [place], [address] Nucleated RBC (Bld) [#/Vol] 0 10*3/uL Normal 0-5 [facility] Comment on above: Performed By: #### L 499.0043 #### [facility] [address] [place], [address] Platelet mean volume (Bld) [Entitic vol] 10.5 fL Normal 6.2-12.0 [facility] Comment on above: Performed By: #### L 499.0043 #### [facility] [address] [place], [address] Platelets (Bld) [#/Vol] 182 10*3/uL Normal 150-450 [facility] Comment on above: Performed By: #### L 499.0043 #### [facility] [address] [place], [address] RBC (Bld) [#/Vol] 5.18 10*6/uL Normal 4.6-6.2 [facility] Comment on above: Performed By: #### L 499.0043 #### [facility] [address] [place], [address] RDW SD 42.5 fl Normal 35.1-43.9 [facility] Comment on above: Performed By: #### L 499.0043 #### [facility] [address] [place], [address] WBC (Bld) [#/Vol] 13.2 10*3/uL High 4.4-11.0 [facility] Comment on above: Performed By: #### L 499.0043 #### [facility] [address], [address] Chest 1 View (Portable)on Chest 1 View (Portable) [facility] Imaging Services [address] [place] [address] Chest 1 View (Portable) MR#: [id number] Acct: [id number] Name: ALLAN LARA Rep #: [id number] : [id number] M 73 From: Marky Jhaveri MD PCP: Dr. Simone Messer MD Status: PRE ER Study: Chest 1 View (Portable) Date of Exam: 03/19/24 Exam# [id number] Ordering Dr: Shon Hoskins DO [id number] EXAM: XR CHEST, 1 VIEW CLINICAL INDICATION: [...] Shon Hoskins, DO; Dr. Simone Messer MD Web Coordinator: Signed Normal [facility] Comprehensive Metabolic Prof ilon 03-19-2024 Albumin [Mass/Vol] 3.1 g/dL Low 3.2-5.0 [facility] Comment on above: Order Comment: 'TROP ' Serial specimen #1, #2 or #3: 1 Performed By: #### L 517.6003 #### [facility] [address] [place], [address] Albumin/Globulin [Mass ratio] 0.9 {ratio} Normal 0.9-2.4 [facility] Comment on above: Order Comment: 'TROP ' Serial specimen #1, #2 or #3: 1 Performed By: #### L 074.6007 #### [facility] [address] [place], [address] ALK P 63 U/L Normal 45-117 [facility] Comment on above: Order Comment: 'TROP ' Serial specimen #1, #2 or #3: 1 Performed By: #### L 521.600 #### [facility] [address] [place], [address] ALT [Catalytic activity/Vol] 11 U/L Low 16-61 [facility] Comment on above: Order Comment: 'TROP ' Serial specimen #1, #2 or #3: 1 Performed By: #### L 503.6005 #### [facility] [address] [place], [address] AST [Catalytic activity/Vol] 9 U/L Low 15-37 [facility] Comment on above: Order Comment: 'TROP ' Serial specimen #1, #2 or #3: 1 Performed By: #### L 503.6005 #### [facility] [address] [place], [address] Bilirubin [Mass/Vol] 0.80 mg/dL Normal 0.20-1.00 [facility] Comment on above: Order Comment: 'TROP ' Serial specimen #1, #2 or #3: 1 Result Comment: For patients on eltrombopag therapy, use of Dimension [place] TBIL is not recommended. Performed By: #### L 503.6005 #### [facility] [address] [place], [address] BUN/CRE 17.5 RATIO Normal 10-20 [facility] Comment on above: Order Comment: 'TROP ' Serial specimen #1, #2 or #3: 1 Performed By: #### L 503.6005 #### [facility] [address] [place], [address] CA,Total 8.2 mg/dL Low 8.5-10.1 [facility] Comment on above: Order Comment: 'TROP ' Serial specimen #1, #2 or #3: 1 Performed By: #### L 503.6005 #### [facility] [address] [place], [address] Chloride [Moles/Vol] 108 mmol/L High 98-107 [facility] Comment on above: Order Comment: 'TROP ' Serial specimen #1, #2 or #3: 1 Performed By: #### L 503.6005 #### [facility] [address] [place], [address] CO2 [Moles/Vol] 19.0 mmol/L Low 21.0-32.0 [facility] Comment on above: Order Comment: 'TROP ' Serial specimen #1, #2 or #3: 1 Performed By: #### L 503.6005 #### [facility] [address] [place], [address] Creatinine [Mass/Vol] 2.11 mg/dL High 0.70-1.30 [facility] Comment on above: Order Comment: 'TROP ' Serial specimen #1, #2 or #3: 1 Result Comment: The validity of the calculated GFR GFRAA in patients over 70 years has not been determined. Clinical correlation is essential. Performed By: #### L 503.6005 #### [facility] [address] [place], [address] ECRCL 30.25 ml/min Normal [facility] Comment on above: Order Comment: 'TROP ' Serial specimen #1, #2 or #3: 1 Performed By: #### L 714.6005 #### [facility] [address] [place], [address] EST GFR - AA 40 mL/min Low >60 [facility] Comment on above: Order Comment: 'TROP ' Serial specimen #1, #2 or #3: 1 Result Comment: Afri can Jordanian GFR Calc Performed By: #### L 503.6005 #### [facility] [address] [place], [address] GAP 12 Normal 5-15 [facility] Comment on above: Order Comment: 'TROP ' Serial specimen #1, #2 or #3: 1 Performed By: #### L 503.6005 #### [facility] [address] [place], [address] GFR/1.73 sq M.predicted among non-blacks MDRD (S/P/Bld) [Vol rate/Area] 33 mL/min/{1.73_m2} Low >60 [facility] Comment on above: Order Comment: 'TROP ' Serial specimen #1, #2 or #3: 1 Result Comment: Non- GFR Calc Performed By: #### L 503.6005 #### [facility] [address] [place], [address] Globulin (S) [Mass/Vol] 3.6 g/dL Normal 2.2-4.2 [facility] Comment on above: Order Comment: 'TROP ' Serial specimen #1, #2 or #3: 1 Performed By: #### L 503.6005 #### [facility] [address] [place], [address] Glucose [Mass/Vol] 219 mg/dL High 74-106 [facility] Comment on above: Order Comment: 'TROP ' Serial specimen #1, #2 or #3: 1 Result Comment: Gluc ose result greater than or equal to 200 mg/dL suggests DIABETES MELLITUS per A.D.A. criteria. Performed By: #### L 503.6005 #### [facility] [address] [place], [address] Potassium [Moles/Vol] 3.9 mmol/L Normal 3.5-5.1 [facility] Comment on above: Order Comment: 'TROP ' Serial specimen #1, #2 or #3: 1 Performed By: #### L 503.6005 #### [facility] [address] [place], [address] Sodium [Moles/Vol] 139 mmol/L Normal 136-145 [facility] Comment on above: Order Comment: 'TROP ' Serial specimen #1, #2 or #3: 1 Performed By: #### L 503.6005 #### [facility] [address] [place], [address] T PROT 6.7 g/dL Normal 6.4-8.2 [facility] Comment on above: Order Comment: 'TROP ' Serial specimen #1, #2 or #3: 1 Performed By: #### L 503.6005 #### [facility] [address] [place], [address] Urea nitrogen [Mass/Vol] 37 mg/dL High 7-18 [facility] Comment on above: Order Comment: 'TROP ' Serial specimen #1, #2 or #3: 1 Performed By: #### L 503.6005 #### [facility] [address] [place], [address] Emergency Department Summary on 03-19-2024 Emergency Department Summary [facility] Medical Records Department [address] [place] [address] Emergency Department Summary 03/19/24 MR#: [id number] Acct: [id number] Name: ALLAN LARA Rep #: [id number] : 1950 73 From: Shon Hoskins DO PCP: Dr. Simone Messer MD Status:REG ER Location: ED HPI History of Present Illness Chief Complaint: Shortness of Breath Narrative Narrative: Chief complaint and HPI: Shortness of breath and hypoxia. 73-year-old male with past medical history of schizoaffective disorder with delusional disorder, DM, hypothyroidism, HTN, chronic hypoxia on 3 L nasal cannula at baseline presents from [facility] for evaluation of acute on chronic hypoxia [...] Skin: Warm, dry Neuro: Alert, grossly intact [facility] Medical History Neoplasm of right kidney Dementia [...] H 18 (more content not included)... Normal [facility] H AND P Exam - Hospitaliston 03-19-2024 H&P Exam - Hospitalist [facility] Medical Records Department [address] [place] [address] H P Exam - Hospitalist 03/19/242000 MR#: [id number] Acct: [id number] Name: ALLAN LARA Rep #: [id number] : 1950 73 From: Darshan Quiroz MD PCP: Dr. iSmone Messer MD Status:ADM IN Location: MS3 IT062-4 HPI - General General Date of Admission: 03/19/24 HPI Narrative ALLAN LARA, is a 73 M who presents from the senior care with shortness of breath and hypoxia. He [...] Respiratory Dep (more content not included)... Normal [facility] L501.4020on 03-19-2024 TROPONIN-I HS 14 pg/mL Normal 3.0-78.0 [facility] Comment on above: Order Comment: 'TROP ' Serial specimen #1, #2 or #3: 1 Result Comment: Plea se Note: New Test Units and Gender Specific Reference Ranges. For more information see Policy Stat Procedure [place] High Sensitivity Troponin (TNIH) and attachments. Performed By: #### L 503.6005 #### [facility] [address] [place], [place], [address] Lactic Acidon 03-19-2024 Lactate [Moles/Vol] 4.3 mmol/L Invalid Interpretation Code 0.4-1.9 [facility] Comment on above: Result Comment: Crit ical Result(s) Called at: 17:17:47 03/19/2024 by: ESTRELLA GARCIA. Results read back by Génesis Lentz Performed By: #### L 503.6005 #### [facility] [address], [address] Lactate [Moles/Vol] 6.5 mmol/L Invalid Interpretation Code 0.4-1.9 [facility] Comment on above: Order Comment: REDRA W. PREVIOUS SPECIMEN REJECTED DUE TONOT RECEIVED IN LAB W/IN 15MIN. 03/19/24 1149 Rivka CY Result Comment: Crit ical Result(s) Called at: 12:58:50 03/19/2024 by: Bonilla Camarena to Lindsay Oliver. Results read back by same. Performed By: #### L 503.6005 ####[facility] [id number] [place], [address] M100.678on 03-19-2024 M100.678 Pending SARS-CoV-2 (COVID 19) Negative INFLUENZA A Negative INFLUENZA B Negative RSV PCR Negative Normal [facility] Comment on above: Performed By: #### M 100.678, L400.0001, M100.2200 ####[facility] [id number] [place], [address] Partial Thromboplast Timeon 03-19-2024 aPTT Coag (Bld) [Time] 24.5 s Normal 24.1-36.2 [facility] Comment on above: Performed By: #### L 503.6005 #### [facility] [address] [place], [address] Prothrombin Time w/INRon INR Coag (PPP) [Relative time] 1.0 {INR} Normal [facility] Comment on above: Performed By: #### L 503.6005 #### [facility] [address] [place], [address] PT Coag (PPP) [Time] 13.7 s Normal 11.7-14.9 [facility] Comment on above: Performed By: #### L 503.6005 #### [facility] [address] [place], [address] Basic Metabolic Profile (BMP )on 03-09-2024 BUN/CRE 27.3 RATIO High 10-20 [facility] Comment on above: Performed By: #### L 503.6005 #### [facility] [address] [place], [address] CA,Total 8.9 mg/dL Normal 8.5-10.1 [facility] Comment on above: Performed By: #### L 503.6005 #### [facility] [address] [place], [address] Chloride [Moles/Vol] 110 mmol/L High 98-107 [facility] Comment on above: Performed By: #### L 503.6005 #### [facility] [address] [place], [address] CO2 [Moles/Vol] 26.0 mmol/L Normal 21.0-32.0 [facility] Comment on above: Performed By: #### L 503.6005 #### [facility] [address] [place], [address] Creatinine [Mass/Vol] 1.43 mg/dL High 0.70-1.30 [facility] Comment on above: Result Comment: The validity of the calculated GFR GFRAA in patients over 70 years has not been determined. Clinical correlation is essential. Performed By: #### L 503.6005 #### [facility] [address] [place], [address] ECRCL 44.63 ml/min Normal [facility] Comment on above: Performed By: #### L 503.6005 #### [facility] [address] [place], [address] EST GFR - AA 62 mL/min Normal >60 [facility] Comment on above: Result Comment: Afri can Jordanian GFR Calc Performed By: #### L 503.6005 #### [facility] [address] [place], [address] GAP 4 Low 5-15 [facility] Comment on above: Performed By: #### L 503.6005 #### [facility] [address] [place], [address] GFR/1.73 sq M.predicted among non-blacks MDRD (S/P/Bld) [Vol rate/Area] 51 mL/min/{1.73_m2} Low >60 [facility] Comment on above: Result Comment: Non- GFR Calc Performed By: #### L 503.6005 #### [facility] [address] [place], [address] Glucose [Mass/Vol] 134 mg/dL High 74-106 [facility] Comment on above: Result Comment: Fast ing Glucose result greater than or equal to 126 mg/dL suggests DIABETES MELLITUS per A.D.A. criteria. Performed By: #### L 503.6005 #### [facility] [address] [place], [address] Potassium [Moles/Vol] 4.1 mmol/L Normal 3.5-5.1 [facility] Comment on above: Performed By: #### L 503.6005 #### [facility] [address] [place], [address] Sodium [Moles/Vol] 140 mmol/L Normal 136-145 [facility] Comment on above: Performed By: #### L 503.6005 #### [facility] [address] [place], [address] Urea nitrogen [Mass/Vol] 39 mg/dL High 7-18 [facility] Comment on above: Performed By: #### L 503.6005 #### [facility] [address] [place], [address] CBC W/Diff, Automatedon 01-0 -2024 Absolute Lymph 2.98 X10 3/uL Normal 0.83-4.51 [facility] Comment on above: Performed By: #### L 503.6005 #### [facility] [address] [place], [address] Absolute Neut 9.9 X10 3/uL High 2.0-7.7 [facility] Comment on above: Performed By: #### L 503.6005 #### [facility] [address] [place], [address] Basophils/100 WBC (Bld) 0.5 % Normal 0-[address] [facility] Comment on above: Performed By: #### L 503.6005 #### [facility] [address] [place], [address] Eosinophils/100 WBC (Bld) 2.1 % Normal 0-5 [facility] Comment on above: Performed By: #### L 503.6005 #### [facility] [address] [place], [address] Erythrocyte distribution width (RBC) [Ratio] 12.6 % Normal 11.6-14.6 [facility] Comment on above: Performed By: #### L 503.6005 #### [facility] [address] [place], [address] Hematocrit (Bld) [Volume fraction] 44.4 % Normal 40-54 [facility] Comment on above: Performed By: #### L 503.6005 #### [facility] [address] [place], [address] Hemoglobin (Bld) [Mass/Vol] 14.9 g/dL Normal 13.0-16.5 [facility] Comment on above: Performed By: #### L 503.6005 #### [facility] [address] [place], [address] IG% 1.000 High 0.0-0.9 [facility] Comment on above: Result Comment: IG% - Immature Granulocytes (promyelocytes, myelocytes and metamyelocytes) > 1% indicates that a LEFT SHIFT is Present. Performed By: #### L 503.6005 #### [facility] [address] [facility] [place], [address] Lymphocytes/100 WBC (Bld) 20.5 % Normal 19-41 [facility] Comment on above: Performed By: #### L 503.6005 #### [facility] [address] [place], [address] MCH (RBC) [Entitic mass] 30.2 pg Normal 27.0-32.0 [facility] Comment on above: Performed By: #### L 503.6005 #### [facility] [address] [place], [address] MCHC (RBC) [Mass/Vol] 33.6 g/dL Normal 32-36 [facility] Comment on above: Performed By: #### L 503.6005 #### [facility] [address] [place], [address] MCV (RBC) [Entitic vol] 90.1 fL Normal 80-[address] [facility] Comment on above: Performed By: #### L 503.6005 #### [facility] [address] [place], [address] Monocytes/100 WBC (Bld) 7.8 % Normal 0-[address] [facility] Comment on above: Performed By: #### L 503.6005 #### [facility] [address] [place], [address] Neutrophils/100 WBC (Bld) 68.1 % Normal 47-70 [facility] Comment on above: Performed By: #### L 503.6005 #### [facility] [address] [place], [address] Nucleated RBC (Bld) [#/Vol] 0 10*3/uL Normal 0-5 [facility] Comment on above: Performed By: #### L 503.6005 #### [facility] [address] [place], [address] Platelet mean volume (Bld) [Entitic vol] 10.2 fL Normal 6.2-12.0 [facility] Comment on above: Performed By: #### L 503.6005 #### [facility] [address] [place], [address] Platelets (Bld) [#/Vol] 218 10*3/uL Normal 150-450 [facility] Comment on above: Performed By: #### L 503.6005 #### [facility] [address] [place], [address] RBC (Bld) [#/Vol] 4.93 10*6/uL Normal 4.6-6.2 [facility] Comment on above: Performed By: #### L 503.6005 #### [facility] [address] [place], [address] RDW SD 41.5 fl Normal 35.1-43.9 [facility] Comment on above: Performed By: #### L 503.6005 #### [facility] [address], [address] WBC (Bld) [#/Vol] 14.6 10*3/uL High 4.4-11.0 [facility] Comment on above: Performed By: #### L 503.6005 #### [facility] [address] [place], [address] Chest 1 View (Portable)on Chest 1 View (Portable) [facility] Imaging Services [address] [place], [place] [address] Chest 1 View (Portable) MR#: [id number] Acct: [id number] Name: ALLAN LARA Rep #: [id number] : 1950 M 73 From: Rudi Loya PCP: Dr. Simone Messer MD Status: PRE ER Study: Chest 1 View (Portable) Date of Exam: 03/09/24 Exam# [id number] Ordering Dr: Jose Taveras DO [id number] INDICATION: cough EXAMINATION/TECHNIQU E: X-RAY - XR [...] Dr. Simone Messer MD; Jose Taveras DO Web Coordinator: Signed Normal [facility] Emergency Department Summary on 03-09-2024 Emergency Department Summary [facility] Medical Records Department [address] [place] [address] Emergency Department Summary 03/09/24 MR#: [id number] Acct: [id number] Name: ALLAN LARA Rep #: [id number] : 1950 73 From: Jose Taveras DO PCP: Dr. Simone Messer MD Status:REG ER Location: ED HPI History of Present Illness Chief Complaint: Mental Status Change Informant: SN[facility] Narrative Narrative: Patient is a 73-year-old male with past medical history of hypothyroidism schizoaffective disorder delusional disorder and BPH who is typically alert and oriented to person only. Reportedly senior care where he stays felt that he was displaying increased weakness this evening and they reported that his vitals were abnormal and with this that he was sent in for evaluation. The patient is alert and oriented to person only and therefore cannot offer any further history [facility] Medical History Neoplasm of right kidney Dementia [...] the ER at his baseline mental status. long-term reported that his vitals were deranged with low room air p (more content not included)... Normal [facility] Liver Profileon 03-09-2024 Albumin [Mass/Vol] 3.3 g/dL Normal 3.2-5.0 [facility] Comment on above: Performed By: #### L 400.0001 #### [facility] [address] [place], [address] ALK P 73 U/L Normal 45-117 [facility] Comment on above: Performed By: #### L 400.0001 #### [facility] [address] [place], [address] ALT [Catalytic activity/Vol] 12 U/L Low 16-61 [facility] Comment on above: Performed By: #### L 400.0001 #### [facility] [address] [place], [address] AST [Catalytic activity/Vol] 9 U/L Low 15-37 [facility] Comment on above: Performed By: #### L 400.0001 #### [facility] [address] [place], [address] Bilirubin [Mass/Vol] 0.60 mg/dL Normal 0.20-1.00 [facility] Comment on above: Result Comment: For patients on eltrombopag therapy, use of Dimension [place] TBIL is not recommended. Performed By: #### L 400.0001 #### [facility] [address] [facility] [place], [address] Bilirubin.direct [Mass/Vol] 0.21 mg/dL Normal 0.00-0.30 [facility] Comment on above: Performed By: #### L 400.0001 #### [facility] [address] [place], [address] Globulin (S) [Mass/Vol] 3.8 g/dL Normal 2.2-4.[address] [facility] Comment on above: Performed By: #### L 400.0001 #### [facility] [address] [place], [address] T PROT 7.1 g/dL Normal 6.4-8.2 [facility] Comment on above: Performed By: #### L 400.0001 #### [facility] [address] [place], [place] [address]. [place], [address] M100.678on 03-09-2024 M100.678 Pending SARS-CoV-2 (COVID 19) Negative INFLUENZA A Negative INFLUENZA B Negative RSV PCR Negative Normal [facility] Comment on above: Performed By: #### L 503.6005 #### [facility] [address] [place], [address] Thyroid Stim Hormone (TSH)on 03-09-2024 TSH 1.300 uIU/mL Normal 0.358-3.740 [facility] Comment on above: Performed By: #### L 400.0001 #### [facility] [address] [place], [address] Urinalysis, Completeon 03-09 BACTERIA 0 SEEN Normal None Seen [facility] Comment on above: Order Comment: NOEL CTOR TO SPECIFY Performed By: #### L 503.6005 #### [facility] [address] [place], [address] EPI,SQUAMOUS 0 SEEN Normal 0-5 [facility] Comment on above: Order Comment: COLLE CTOR TO SPECIFY Performed By: #### L 503.6005 #### [facility] [address] [place], [address] Mucus Ql (Urine sed) 0 SEEN Normal [facility] Comment on above: Order Comment: COLLE CTOR TO SPECIFY Performed By: #### L 503.6005 #### [facility] [address] [place], [address] RBC 0 SEEN Normal 0-5 [facility] Comment on above: Order Comment: COLLE CTOR TO SPECIFY Performed By: #### L 503.6005 #### [facility] [address] [place], [address] WBC 0 SEEN Normal 0-5 [facility] Comment on above: Order Comment: COLLE CTOR TO SPECIFY Performed By: #### L 503.6005 #### [facility] [address] [place], [address] Basophil percentageOrdered B y: Simone Messer on 09-30-2022 Basophil percentage < 0.9 mg/dL 0.70-1.30 [facility] No Panel InformationOrdered By: Simone Messer on 09-30-2022 Bedside Estimated GFR (eGFR) > 60.0000 mL/min >60 [facility] Absolute lymphocyte countOrd ered By: Dr. [place] on 07-06-2022 Lymphocytes Auto (Unsp spec) [#/Vol] 2.45 10*3/uL 0.83-4.51 [facility] Basophil percentageOrdered B y: Dr. [place] on 07-06-2022 Basophils/100 WBC (Bld) 0.4 % 0-[address] [facility] Chloride [Moles/Vol] 109 mmol/L 98-107 [facility] Eosinophils/100 WBC (Bld) 1.1 % 0-5 [facility] Glucose [Mass/Vol] 114 mg/dL 74-106 [facility] Comment on above: Fasting Glucose resu lt from 100 to 125 mg/dL suggests IMPAIRED HOMEOSTASIS per A.D.A. criteria. Neutrophils (Bld) [#/Vol] 15.6 10*3/uL 2.0-7.7 [facility] Neutrophils/100 WBC (Bld) 78.6 % 47-70 [facility] Potassium [Moles/Vol] 3.2 mmol/L 3.5-5.1 [facility] Sodium [Moles/Vol] 140 mmol/L 136-145 [facility] WBC (Bld) [#/Vol] 19.9 10*3/uL 4.4-11.0 [facility] Blood erythrocytes count (nu mber/volume)Ordered By: Dr. [place] on 07-06-2022 RBC (Bld) [#/Vol] 4.27 10*6/uL 4.6-6.2 [facility] Blood hemoglobin measurement (mass/volume)Ordered By: Dr. [place] on 07-06-2022 Hemoglobin (Bld) [Mass/Vol] 12.9 g/dL 13.0-16.5 [facility] [facility] Blood [facility]/100 leukoc ytesOrdered By: Dr. Crawford on 07-06-2022 Lymphocytes/100 WBC (Bld) 12.3 % 19-41 [facility] Blood monocytes/100 leukocyt esOrdered By: Dr. Crawford on 07-06-2022 Monocytes/100 WBC (Bld) 6.5 % 0-10 [facility] Blood platelet mean volumeOr dered By: Dr. Crawford on 07-06-2022 Platelet mean volume (Bld) [Entitic vol] 10.6 fL 6.2-12.0 [facility] Culture, urineOrdered By: Dr Reva Shaikh on 07-06-2022 Bacteria identified Cx Nom (U) Culture exhibits no growth. [facility] Determination of erythrocyte mean corpuscular volume (MCV)Ordered By: Dr. Crawford on 07-06-2022 MCV (RBC) [Entitic vol] 92.0 fL 80-94 [facility] Hematocrit Auto (Bld) [Volum e fraction]Ordered By: Dr. Crawford on 07-06-2022 Hematocrit (Bld) [Volume fraction] 39.3 % 40-54 [facility] Laboratory - Chemistry and C hemistry - challengeOrdered By: Dr. Crawford on 07-06-2022 CO2 [Moles/Vol] 25.0 mmol/L 21.0-32.0 [facility] Urea nitrogen/Creatinine [Mass ratio] 12.2 mg/mg 10-20 [facility] Laboratory - Hematology and Cell countsOrdered By: Dr. Crawford on 07-06-2022 Erythrocyte distribution width (RBC) [Entitic vol] 42.5 fL 35.1-43.9 [facility] Erythrocyte distribution width (RBC) [Ratio] 12.8 % 11.6-14.6 [facility] Immature granulocytes/100 WBC (Bld) 1.100 % 0.0-0.9 [facility] Comment on above: IG% - Immature Granu locytes (promyelocytes, myelocytes and metamyelocytes) > 1% indicates that a LEFT SHIFT is Present. MCH (RBC) [Entitic mass] 30.2 pg 27.0-32.0 [facility] Nucleated RBC/100 WBC (Bld) [Ratio] 0 % 0-5 [facility] MCHC Auto (RBC) [Mass/Vol]Or dered By: Dr. Crawford on 07-06-2022 MCHC (RBC) [Mass/Vol] 32.8 g/dL 32-36 [facility] No Panel InformationOrdered By: Dr. Crawford on 07-06-2022 Estimated Creatinine Clearance Calc 73.10 ml/min [facility] Estimated GFR (MDRD) Amer 106 mL/min >60 [facility] Comment on above: GFR Calc Estimated GFR (MDRD) Non-Af Amer 88 mL/min >60 [facility] Comment on above: Non- GFR Calc Platelets bldOrdered By: Dr. Crawford on 07-06-2022 Platelets (Bld) [#/Vol] 220 10*3/uL 150-450 [facility] Serum or plasma calcium vannessa urement (mass/volume)Ordered By: Dr. Crawford on 07-06-2022 Calcium [Mass/Vol] 8.4 mg/dL 8.5-10.1 [facility] Serum or plasma creatinine m easurement (mass/volume)Ordered By: Dr. Crawford on 07-06-2022 Creatinine [Mass/Vol] 0.90 mg/dL 0.70-1.30 [facility] Comment on above: The validity of the calculated GFR & GFRAA in patients over 70 years has not been determined. Clinical correlation is essential. Serum or plasma urea nitroge n measurement (mass/volume)Ordered By: Dr. Crawford on 07-06-2022 Urea nitrogen [Mass/Vol] 11 mg/dL 7-18 [facility] Thin prep Papanicolaou smear with manual screeningOrdered By: Dr. Crawford on 07-06-2022 Thin prep Papanicolaou smear with manual screening 6 5-15 [facility] No Panel InformationOrdered By: Dr. Verma on 07-05-2022 Atypical Lymphocytes 1+ % [facility] Review by pathologistOrdered By: Dr. Verma on 07-05-2022 Pathologist review [place] (Unsp spec) [Interp] Reviewed [facility] Comment on above: Previous reported re sult: Lana medellin Edited by: INNA on 07/05/22:1302Neutrophilic leukocytosis.Clinical correlation necessary.Dawson Moreira M.D. 07/05/22 AMENDED REPORT 07/05/22 1302 PATH REV previously reported as: Lana medellin Absolute lymphocyte countOrd ered By: Dr. Shaikh on 07-04-2022 Lymphocytes Auto (Unsp spec) [#/Vol] 0.87 10*3/uL 0.83-4.51 [facility] Basophil percentageOrdered B y: Dr. Shaikh on 07-04-2022 Lactate [Moles/Vol] 3.1 mmol/L 0.4-2.0 [facility] Comment on above: Critical Result(s) C alled at: 08:44:55 07/04/2022 by: Selena Evans to [facility]. Results read back by same. Basophil percentage 0-5 SEEN /hpf 0-5 [facility] Basophils/100 WBC (Bld) 0.2 % 0-[address] [facility] Bilirubin [Mass/Vol] 0.60 mg/dL 0.20-1.00 [facility] Comment on above: For patients on eltr ombopag therapy, use of Dimension [place] TBIL is not recommended. Chloride [Moles/Vol] 104 mmol/L 98-107 [facility] Eosinophils/100 WBC (Bld) 0.0 % 0-5 [facility] Glucose [Mass/Vol] 212 mg/dL 74-106 [facility] Comment on above: Glucose result great er than or equal to 200 mg/dLsuggests DIABETES MELLITUS per A.D.A. criteria. Lactate [Moles/Vol] 2.9 mmol/L 0.4-2.0 [facility] Comment on above: Critical Result(s) C alled at: 03:34:34 07/04/2022 by: Mohamud Dodd. CALLED TO [place] [id number] (ED) (RN) Results read back by same. Neutrophils (Bld) [#/Vol] 22.2 10*3/uL 2.0-7.7 [facility] Neutrophils/100 WBC (Bld) 91.2 % 47-70 [facility] Potassium [Moles/Vol] 4.6 mmol/L 3.5-5.1 [facility] Protein [Mass/Vol] 7.5 g/dL 6.4-8.2 [facility] Sodium [Moles/Vol] 140 mmol/L 136-145 [facility] WBC (Bld) [#/Vol] 24.4 10*3/uL 4.4-11.0 [facility] Bilirubin Test strip Ql (U)O rdered By: Dr. Shaikh on 07-04-2022 Bilirubin Ql (U) Negative Negative [facility] Blood erythrocytes count (nu mber/volume)Ordered By: Dr. Shaikh on 07-04-2022 RBC (Bld) [#/Vol] 5.39 10*6/uL 4.6-6.2 [facility] Blood hemoglobin measurement (mass/volume)Ordered By: Dr. Shaikh on 07-04-2022 Hemoglobin (Bld) [Mass/Vol] 15.9 g/dL 13.0-16.5 [facility] Blood lymphocytes/100 leukoc ytesOrdered By: Dr. Shaikh on 07-04-2022 Lymphocytes/100 WBC (Bld) 3.6 % 19-41 [facility] Blood monocytes/100 leukocyt esOrdered By: Dr. Shaikh on 07-04-2022 Monocytes/100 WBC (Bld) 3.7 % 0-[address] [facility] Blood platelet mean volumeOr dered By: Dr. Shaikh on 07-04-2022 Platelet mean volume (Bld) [Entitic vol] 10.7 fL 6.2-12.0 [facility] Culture, urineOrdered By: Rodrigo Shaikh on 07-04-2022 Bacteria identified Cx Nom (U) Culture exhibits no growth. [facility] Determination of erythrocyte mean corpuscular volume (MCV)Ordered By: Dr. Shaikh on 07-04-2022 MCV (RBC) [Entitic vol] 91.8 fL 80-[address] [facility] Hematocrit Auto (Bld) [Volum e fraction]Ordered By: Dr. Shaikh on 07-04-2022 Hematocrit (Bld) [Volume fraction] 49.5 % 40-54 [facility] Hyaline casts LM.LPF (Urine sed) [#/Area]Ordered By: Dr. Shaikh on 07-04-2022 Hyaline casts (Urine sed) [#/Area] 0 /[LPF] 0-5 [facility] INR in Blood by Coagulation assayOrdered By: Dr. Shaikh on 07-04-2022 INR Coag (Bld) [Relative time] 1.0 {INR} [facility] Ketones Test strip Ql (U)Ord ered By: Dr. Shaikh on 07-04-2022 Ketones Ql (U) Negative Negative [facility] Laboratory - Chemistry and C hemistry - challengeOrdered By: Dr. Shaikh on 07-04-2022 ALP [Catalytic activity/Vol] 75 U/L 45-117 [facility] ALT [Catalytic activity/Vol] 20 U/L 16-61 [facility] CO2 [Moles/Vol] 27.0 mmol/L 21.0-32.0 [facility] Globulin (S) [Mass/Vol] 3.9 g/dL 2.2-4.[address] [facility] Lipase [Catalytic activity/Vol] 37 U/L 13-75 [facility] Comment on above: Please note:LIPASE r evised reference range effective 22. New Lipase methodology. Expected to produce lower values than the previous assay method. NEW Reference Range: 13 - 75 U/L Urea nitrogen/Creatinine [Mass ratio] 12.0 mg/mg 10-20 [facility] Laboratory - CoagulationOrde red By: Dr. Shaikh on 07-04-2022 aPTT Coag (Bld) [Time] 23.7 s 24.1-36.2 [facility] PT Coag (PPP) [Time] 12.8 s 11.7-14.9 [facility] Laboratory - Hematology and Cell countsOrdered By: Dr. Shaikh on 07-04-2022 Erythrocyte distribution width (RBC) [Entitic vol] 42.8 fL 35.1-43.9 [facility] Erythrocyte distribution width (RBC) [Ratio] 12.8 % 11.6-14.6 [facility] Immature granulocytes/100 WBC (Bld) 1.300 % 0.0-0.9 [facility] Comment on above: IG% - Immature Granu locytes (promyelocytes, myelocytes and metamyelocytes) > 1% indicates that a LEFT SHIFT is Present. MCH (RBC) [Entitic mass] 29.5 pg 27.0-32.0 [facility] Nucleated RBC/100 WBC (Bld) [Ratio] 0 % 0-5 [facility] Laboratory - Microbiology an d Antimicrobial susceptibilityOrdered By: Mati Shaikh on 07-04-2022 Bacteria identified Cx Nom (Bld) No growth in 5 days. [facility] MCHC Auto (RBC) [Mass/Vol]Or dered By: Dr. Shaikh on 07-04-2022 MCHC (RBC) [Mass/Vol] 32.1 g/dL 32-36 [facility] Mucus LM Ql (Urine sed)Order ed By: Dr. Shaikh on 07-04-2022 Mucus Ql (Urine sed) 0 SEEN /hpf [facility] Nitrite Test strip Ql (U)Ord ered By: Dr. Shaikh on 07-04-2022 Nitrite Ql (U) Negative Negative [facility] No Panel InformationOrdered By: Dr. Verma on 07-04-2022 Vitamin D 25-Hydroxy 85.4 ng/mL [facility] Comment on above: Vitamin D 25(OH) Sta tus Range Deficiency <20 ng/mL (50nmol/L) Insufficiency 20 - 30 ng/mL (50 - 75 nmol/L) Sufficiency 30 - 100 ng/mL (75 - 250 nmol/L) Toxicity >100 ng/mL (>250 nmol/L) No Panel InformationOrdered By: Dr. Shaikh on 07-04-2022 Estimated Creatinine Clearance Calc 34.45 ml/min [facility] Estimated GFR (MDRD) Amer 45 mL/min >60 [facility] Comment on above: GFR Calc Estimated GFR (MDRD) Non-Af Amer 37 mL/min >60 [facility] Comment on above: Non- GFR Calc Troponin I High Sensitivity 6 pg/mL 3.0-78.0 [facility] Comment on above: Please Note: New Marycruz t Units and Gender Specific Reference Ranges. For more information see Policy Stat Procedure [place] High Sensitivity Troponin (TNIH) and attachments. Platelets bldOrdered By: Dr. Shaikh on 07-04-2022 Platelets (Bld) [#/Vol] 356 10*3/uL 150-450 [facility] Protein Test strip Ql (U)Ord ered By: Dr. Shaikh on 07-04-2022 Protein Ql (U) 15 mg/dl Negative [facility] Serum or plasma albumin vannessa urement (mass/volume)Ordered By: Dr. Shaikh on 07-04-2022 Albumin [Mass/Vol] 3.6 g/dL 3.2-5.0 [facility] Serum or plasma albumin/glob ulin mass ratioOrdered By: Dr. Shaikh on 07-04-2022 Albumin/Globulin [Mass ratio] 0.9 {ratio} 0.9-2.4 [facility] Serum or plasma calcium vannessa urement (mass/volume)Ordered By: Dr. Shaikh on 07-04-2022 Calcium [Mass/Vol] 9.7 mg/dL 8.5-10.1 [facility] Serum or plasma creatinine m easurement (mass/volume)Ordered By: Dr. Shaikh on 07-04-2022 Creatinine [Mass/Vol] 1.91 mg/dL 0.70-1.30 [facility] Comment on above: The validity of the calculated GFR & GFRAA in patients over 70 years has not been determined. Clinical correlation is essential. Serum or plasma urea nitroge n measurement (mass/volume)Ordered By: Dr. Shaikh on 07-04-2022 Urea nitrogen [Mass/Vol] 23 mg/dL 7-18 [facility] Squamous epithelial cells de tection in urine sediment by light microscopyOrdered By: Dr. Shaikh on 07-04-2022 Epithelial cells.squamous LM Ql (Urine sed) 0 SEEN /hpf 0-5 [facility] Thin prep Papanicolaou smear with manual screeningOrdered By: Dr. Shaikh on 07-04-2022 Thin prep Papanicolaou smear with manual screening 13 U/L 15-37 [facility] Thin prep Papanicolaou smear with manual screening 9 5-15 [facility] Urine blood detectionOrdered By: Dr. Shaikh on 07-04-2022 RBC Ql (U) Negative Negative [facility] RBC Ql (U) 0 SEEN /hpf 0-5 [facility] Urine clarityOrdered By: Dr. Shaikh on 07-04-2022 Clarity (U) Clear Clear [facility] Urine color determinationOrd ered By: Dr. Shaikh on 07-04-2022 Color (U) Yellow Yellow [facility] Urine glucose detectionOrder ed By: Dr. Shaikh on 07-04-2022 Glucose Ql (U) Normal mg/dl Normal [facility] Urine leukocyte esterase det ection by dipstickOrdered By: Dr. Shaikh on 07-04-2022 Leukocyte esterase Test strip Ql (U) Negative Negative [facility] Urine pHOrdered By: Dr. Breanne rhodes on 07-04-2022 pH (U) 5.0 [pH] 5.0 - 8.0 [facility] Urine sediment bacteria coun t by microscopy (number/high power field)Ordered By: Dr. Shaikh on 07-04-2022 Bacteria LM.HPF (Urine sed) [#/Area] 1 /[HPF] None Seen [facility] Urine specific gravity measu rementOrdered By: Dr. Shaikh on 07-04-2022 Specific gravity (U) [Rel density] 1.015 1.002-1.030 [facility] Urobilinogen Auto test strip Ql (U)Ordered By: Dr. Shaikh on 07-04-2022 Urobilinogen Ql (U) 1 mg/dl Normal [facility] Whole blood hemoglobin A1c/t otal hemoglobin ratio (mass fraction)Ordered By: Dr. Verma on 07-04-2022 HbA1c (Bld) [Mass fraction] 5.8 % 3.8-5.6 [facility] Comment on above: Normal < 5.7 % Predi abetic 5.7 - 6.4 % Diabetic >or= 6.5 % Please note range changes. AUTO DIFFon 09-15-2021 Baso Count 0.04 x1000 Normal 0.00-0.20 [facility] Comment on above: Performed By: #### 1 [id number] #### [facility] [address] [place] [address] Admitting Interviewer: Herb Quiroz MD Basos % 0.4 % Normal [facility] Comment on above: Performed By: #### 1 [id number] #### [facility] [address] [place] [address] Admitting Interviewer: Herb Quiroz MD Eos Count 0.32 x1000 Normal 0.00-0.50 [facility] Comment on above: Performed By: #### 1 [id number] #### [facility] [address] [place], [place] [id number] Admitting Interviewer: Herb Quiroz MD Eosinophils/100 WBC (Bld) 2.8 % Normal [facility] Comment on above: Performed By: #### 1 [id number] #### [facility] [address] [place] [address] Admitting Interviewer: Herb Quiroz MD Lymph Count 2.13 x1000 Normal 1.20-4.80 [facility] Comment on above: Performed By: #### 1 [id number] #### [facility] [address] [place] [address] Admitting Interviewer: Herb Quiroz MD Lymphocytes/100 WBC (Bld) 18.7 % Normal [facility] Comment on above: Performed By: #### 1 [id number] #### [facility] [address] [place] [address] Admitting Interviewer: Herb Quiroz MD [place] Count 0.89 x1000 Normal 0.10-1.00 [facility] Comment on above: Performed By: #### 1 [id number] #### [facility] [address] [place] [address] Admitting Interviewer: Herb Quiroz MD Monocytes/100 WBC (Bld) 7.8 % Normal [facility] Comment on above: Performed By: #### 1 [id number] #### [facility] [address] [place] [address] Admitting Interviewer: Herb Quiroz MD Neutrophil Count (ANC) 8.03 x1000 Normal 1.40-8.80 So [facility] Comment on above: Performed By: #### 1 [id number] #### [facility] [address] [place] [address] Admitting Interviewer: Herb Quiroz MD Neutrophils/100 WBC (Bld) 70.3 % Normal [facility] Comment on above: Performed By: #### 1 [id number] #### [facility] [address] [place] [address] Admitting Interviewer: Herb Quiroz MD [facility] 09-15-2021 Albumin/Globulin [Mass ratio] 1.1 {ratio} Normal [facility] Comment on above: Performed By: #### 1 [id number] #### [facility] [address] [place] [address] Admitting Interviewer: Herb Quiroz MD GFR AA >60 Normal [facility] Comment on above: Result Comment: Afri can Jordanian GFR Calc Medical judgement is necessary to [...] for drug dosing. Performed By: #### 1 [id number] #### [facility] [address] [place] [address] Admitting Interviewer: Herb Quiroz MD Glomerular Filtration Rate >60 Normal [facility] Comment on above: Result Comment: Non [...] for drug dosing. Performed By: #### 1 [id number] #### [facility] [address] [place], [place] [address] Admitting Interviewer: Herb Quiroz MD Osmolality [Osmolality] 285 mosm/kg Normal 275-295 [facility] Comment on above: Performed By: #### 1 [id number] #### [facility] [address] [place], [place] [address] Admitting Interviewer: Herb Quiroz MD Urea nitrogen/Creatinine [Mass ratio] 13.2 mg/mg Normal [facility] Comment on above: Performed By: #### 1 [id number] #### [facility] [address] [place], [place] [address] Admitting Interviewer: Herb Quiroz MD Albumin [Mass/Vol] 3.2 g/dL Low 3.4-5.0 [facility] Comment on above: Performed By: #### 1 [id number] #### [facility] [address] [place], [place] [address] Admitting Interviewer: Herb Quiroz MD Alk Phos 75 unit/L Normal 45-117 [facility] Comment on above: Performed By: #### 1 [id number] #### [facility] [address] [place], [place] [address] Admitting Interviewer: Herb Quiroz MD Bilirubin [Mass/Vol] 0.26 mg/dL Normal 0.20-1.00 [facility] Comment on above: Result Comment: Use of this assay is not recommended for patients undergoing treatment with eltrombopag due to the potential for falsely elevated results. Performed By: #### 1 [id number] #### [facility] [address] [place] [address] Admitting Interviewer: Herb Quiroz MD Calcium [Mass/Vol] 8.7 mg/dL Normal 8.5-10.5 [facility] Comment on above: Performed By: #### 1 [id number] #### [facility] [address] [place] [address] Admitting Interviewer: Herb Quiroz MD Chloride [Moles/Vol] 110 mmol/L High 100-109 [facility] Comment on above: Performed By: #### 1 [id number] #### [facility] [address] [place] [address] Admitting Interviewer: Herb Quiroz MD CO2 [Moles/Vol] 27.5 mmol/L Normal 21.0-32.0 [facility] Comment on above: Performed By: #### 1 [id number] #### [facility] [address] [place] [address] Admitting Interviewer: Herb Quiroz MD Creatinine [Mass/Vol] 1.1 mg/dL Normal 0.7-1.3 [facility] Comment on above: Performed By: #### 1 [id number] #### [facility] [address] [place] [address]672 Admitting Interviewer: Herb Quiroz MD Globulin (S) [Mass/Vol] 2.9 g/dL Normal [facility] Comment on above: Performed By: #### 1 [id number] #### [facility] [address] [place] [address] Admitting Interviewer: Herb uQiroz MD Glucose [Mass/Vol] 122 mg/dL High 72-100 [facility] Comment on above: Result Comment: Nori puncture should occur prior to sulfasalazine administration due to the potential for falsely depressed results. Venipuncture should occur prior to sulfapyridine administration due to the potential falsely elevated results. Baseline assay values before administration of sulfasalazine and sulfapyridine therapy would not be affected. Performed By: #### 1 [id number] #### [facility] [address] [place], [place] [address] Admitting Interviewer: Herb Quiroz MD GOT 7 unit/L Low 15-37 [facility] Comment on above: Result Comment: Nori puncture should occur prior to sulfasalazine and/or sulfapyridine administration due to the potential for falsely depressed results. Baseline assay values before administration of sulfasalazine and sulfapyridine therapy would not be affected. Performed By: #### 1 [id number] #### [facility] [place] [id number] Admitting Interviewer: Herb Quiroz MD GPT 14 unit/L Low 16-61 [facility] Comment on above: Result Comment: Nori puncture should occur prior to sulfasalazine and/or sulfapyridine administration due to the potential for falsely depressed results. Baseline assay values before administration of sulfasalazine and sulfapyridine therapy would not be affected. Performed By: #### 1 [id number] #### [facility] [address] [place], [place] [address] Admitting Interviewer: Herb Quiroz MD Potassium [Moles/Vol] 4.0 mmol/L Normal 3.5-5.1 [facility] Comment on above: Performed By: #### 1 [id number] #### [facility] [address] [place], [place] [address] Admitting Interviewer: Herb Quiroz MD Protein [Mass/Vol] 6.1 g/dL Normal 6.0-8.5 [facility] Comment on above: Performed By: #### 1 [id number] #### [facility] [address] [place] [address] Admitting Interviewer: Herb Quiroz MD Sodium [Moles/Vol] 142 mmol/L Normal 135-145 [facility] Comment on above: Performed By: #### 1 [id number] #### [facility] [address] [place], [place] [address] Admitting Interviewer: Herb Quiroz MD Urea nitrogen [Mass/Vol] 15 mg/dL Normal 10-20 [facility] Comment on above: Performed By: #### 1 [id number] #### [facility] [address] [place] [address] Admitting Interviewer: Herb Quiroz MD CT ABD PELVIS WO [...] TEJEDA MD Signed Out: 09/15/21 12:09:47 Normal [facility] ED Adult Data - [employer] 09-15 [...] Unknown Status : N/A Preferred Verbal : Bel[place]ian Giovana Glover RN - 09/15/2021 11:09 EDT [...] Problems(Active) At risk for falls (SNOMED CT :952403448 ) Name of Problem: At risk for falls ; Recorder: SYSTEM; Confirmation: Confirmed ; Classification: Nursing ; Code: [id number] ; Last Updated: 03/28/2020 15:22 EST ; Life Cycle Date: 03/28/2020 ; Life Cycle Status: Active ; Vocabulary: SNOMED CT ; Comments: 03/28/2020 15:22 - SYSTEM Problem added automatically by system based on documentation of a admission to the hospital. Auditory hallucinations (SNOMED CT :270855627 ) Name of Problem: Auditory hallucinations ; Recorder: Juliana Duke RN; Confirmation: Confirmed ; Classification: Medical ; Code: 455572559 ; Contributor System: PowerChart ; Last Updated: 03/28/2020 13:07 EST ; Life Cycle Date: 03/28/2020 ; Life Cycle Status: Active ; Vocabulary: SNOMED CT COVID-19 (SNOMED CT :8981599071 ) Name of Problem: COVID-19 ; Recorder: Juliana Duke RN; Confirmation: Confirmed ; Classification: Medical ; Code: 0315795590 ; Contributor System: PowerChart ; Last Updated: 03/28/2020 13:07 EST ; Life Cycle Date: 03/28/2020 ; Life Cycle Status: Active ; Vocabulary: SNOMED CT Dementia (SNOMED CT :08565752 ) Name of Problem: Dementia ; Recorder: Juliana Duke RN; Confirmation: Confirmed ; Classification: Medical ; Code: 06285053 ; Contributor System: PowerChart ; Last Updated: 03/28/2020 13:07 EST ; Life Cycle Date: 03/28/2020 ; Life Cycle Status: Active ; Vocabulary: SNOMED CT Diabetes mellitus (SNOMED CT :922891688 ) Name of Problem: Diabetes mellitus ; Recorder: Juliana Duke RN; Confirmation: Confirmed ; Classification: Medical ; Code: 653781699 ; Contributor System: PowerChart ; Last Updated: 03/28/2020 13:07 EST ; Life Cycle Date: 03/28/2020 ; Life Cycle Status: Active ; Vocabulary: SNOMED CT HTN (hypertension) (SNOMED CT :0031968441 ) Name of Problem: HTN (hypertension) ; Recorder: Juliana Duke RN; Confirmation: Confirmed ; Classification: Medical ; Code: 4775567500 ; Contributor System: PowerChart ; Last Updated: 03/28/2020 13:07 EST ; Life Cycle Date: 03/28/2020 ; Life Cycle Status: Active ; Vocabulary: SNOMED CT Hyperlipemia (SNOMED CT :28020261 ) Name of Problem: Hyperlipemia ; Recorder: Juliana Duke RN; Confirmation: Confirmed ; Classification: Medical ; Code: 73405843 ; Contributor System: PowerChart ; Last Updated: 03/28/2020 13:07 EST ; Life Cycle Date: 03/28/2020 ; Life Cycle Status: Active ; Vocabulary: SNOMED CT Kidney neoplasm (SNOMED CT :012354 ) Name of Problem: Kidney neoplasm ; Recorder: Juliana Duke RN; Confirmation: Confirmed ; Classification: Medical ; Code: 541785 ; Contributor System: PowerChart ; Last Updated: 03/28/2020 13:06 EST ; Life Cycle Date: 03/28/2020 ; Life Cycle Status: Active ; Vocabulary: SNOMED CT Schizoaffective disorder (SNOMED CT :053386821 ) Name of Problem: Schizoaffective disorder ; Recorder: Juliana Duke RN; Confirmation: Confirmed ; Classification: Medical ; Code: 079091865 ; Contributor System: PowerChart ; Last Updated: 03/28/2020 13:06 EST ; Life Cycle Date: 03/28/2020 ; Life Cycle Status: Active ; Vocabulary: SNOMED CT Diagnoses(Active) Abdominal pain Date: 09/15/2021 ; Diagnosis Type: Reason For Visit ; Confirmation: Confirmed ; Clinical Dx: Abdominal pain ; Classification: Medical ; Clinical Service: Emergency medicine ; Code: PNED ; Probability: 0 ; Diagnosis Code: [id number] Nausea Date: 09/15/2021 ; Diagnosis Type: Reason For Visit ; Confirmation: Confirmed ; Clinical Dx: Nausea ; Classification: Medical ; Clinical Service: Emergency medicine ; Code: PNED ; Probability: 0 ; Diagnosis Code: [id number] eg Procedure History ED Devices Present on Arrival To E (more content not included)... Normal [facility] ED Discharge Educationon ED Discharge Education [...] Where can you learn more? Go to [email or web address] Enter E907 in the search box to learn more about Abdominal Pain: Care Instructions. Current as of: May 01, 2019 Content Version: 12.7 ? [email or web address]. Care instructions adapted under license by your healthcare professional. If you have questions about a medical condition or this instruction, always ask your healthcare professional. [email or web address] disclaims any warranty or liability for your use of this information. Normal [facility] ED Emergency Severity Index Adult-Texton 09-15-2021 ED Emergency Severity Index Adult-Text DENNIS - Adult Entered On: 09/15/2021 10:51 EDT Performed On: 09/15/2021 10:51 EDT by Giovana Glover RN DENNIS DENNIS Level 1 - Adult : No DENNIS Level 2 - Adult : No Resources DENNIS : Many Giovana Glover RN - 09/15/2021 10:51 EDT DCP GENERIC CODE Visit Reason : ABD PAIN DIRRHEA NAUSEA Tracking Triage Date/Time : 09/15/2021 10:51 EDT Tracking Reg Status : Requested Tracking Acuity : 3H-Urgent Tracking Group : [facility] Tracking Giovana Glover RN - 09/15/2021 10:51 EDT Recommended DENNIS Level : 3 Giovana Glover RN - 09/15/2021 10:51 EDT Normal [facility] ED Nrsing Adlt Triage Sep Sc [...] Glover RN - 09/15/2021 11:07 EDT Normal [facility] ED Patient Summaryon 022 ED Patient Summary [facility] Emergency Department Discharge Instructions [address] [place] [address] \.br\(Jamilahen t Copy)\.br\ \.br\Name: ALLAN LARA : 1950 \.br\Allergies: No Known Allergies\.br\Diagno sis: Diagnoses This Visit\.br\ Abdominal pain ([id number])\. br\ Abdominal pain, acute (R10.9)\.br\ Biliary colic (K80.50)\.br\ Nausea ([id number] aeg)\.br\\.br\\.br\ \.br\ Visit Date: 09/15/2021 10:50:23 \.br\ Current Date Time: 09/15/2021 14:10:50 \.br\Address: [address] [place] [address] \.br\ \.br\ \.br\Primary Care Provider: \.br\Name: CASE KAUFFMAN, JESSI H\.br\ \.br\ \.br\Emergency Department Care Providers: \.br\ Primary Physician: JUAN DANIEL HOFFMAN MD \.br\ \.br\ \.br\\.br\Thank you for choosing [facility] for your emergency care. You are very important to us. Our goal is to demonstrate our high quality medical care, and provide you with a very good patient experience.\.br\\.br \You may receive a survey about our service. Please take the time to complete the survey and return it so we can continue to enhance our service.\.br\\.br\Th ank you again for allowing the [facility] Emergency Department to care for your medical needs. If you have questions about your care or follow up information please contact us at [phone].\.br\\. br\ Follow-Up Instructions\.br\___ \.br\ALLAN LARA has been given these follow-up instructions:\.br\\. br\\.br\With: Address: When: \.br\VIKTORIYA BHATIA, General Surgery [address], [address] [place] [address]\.br\ Business (1) Within 3 to 5 days \.br\\.br\\.br\With: Address: When: \.br\JESSI AUSTIN, Internal Medicine [address], [address] [place] [address]\.br\ Business (1) Within 3 to 5 days \.br\\.br\\.br\\.br\ \.br\Patient Education Materials\.br\ __\.br\ALLAN LARA has been given the following patient education materials:\.br\\.br\ Abdominal Pain: Care Instructions\.br\You r Care Instructions\.br\\.b r\Abdominal pain has many possible causes. Some aren't serious and get better on their own in a few days. Others need more testing and treatment. If your pain continues or gets worse, you need to be rechecked and may need more tests to find out what is wrong. You may need surgery to correct the problem.\.br\Don't ignore new symptoms, such as fever, nausea and vomiting, urination problems, pain that gets worse, and dizziness. These may be signs of a more serious problem.\.br\Your doctor may have recommended a follow-up visit in the next 8 to 12 hours. If you are not getting better, you may need more tests or treatment.\.br\The doctor has checked you carefully, but problems can develop later. If you notice any problems or new symptoms, get medical treatment right away.\.br\Follow-up care is a aleman part of your treatment and safety. Be sure to make and go to all appointments, and call your doctor if you are having problems. It's also a good idea to know your test results and keep a list of the medicines you take.\.br\How can you care for yourself at home?\.br\? Rest until you feel better.\.br\? To prevent dehydration, drink plenty of fluids, enough so that your urine is light yellow or clear like water. Choose water and other caffeine-free clear liquids until you feel better. If you have kidney, heart, or liver disease and have to limit fluids, talk with your doctor before you increase the amount of fluids you drink.\.br\? If your stomach is upset, eat mild foods, such as rice, dry toast or crackers, bananas, and applesauce. Try eating several small meals instead of two or three large ones.\.br\? Wait until 48 hours after all symptoms have gone away before you have spicy foods, alcohol, and drinks that contain caffeine.\.br\? Do not eat foods that are high in fat.\.br\? Avoid anti-inflammatory medicines such as aspirin, ibuprofen (Advil, Motrin), and naproxen (Aleve). These can cause stomach upset. Talk to your doctor if you take daily aspirin for another health problem.\.br\When should you call for help?\.br\ Call 911 anytime you think you may need emergency care. For example, call if: \.br\ ? You passed out (lost consciousness). \.br\ ? You pass maroon or very bloody stools. \.br\ ? You vomit blood or what looks like coffee grounds. \.br\ ? You have new, severe belly pain. \.br\Call your doctor now or seek immediate medical care if:\.br\ ? Your pain gets worse, especially if it becomes focused in one area of your belly. \.br\ ? You have a new or higher fever. \.br\ ? Your stools are black and look like tar, or they have streaks of blood. \.br\ ? You have unexpected vaginal bleeding. \.br\ ? You have symptoms of a urinary tract infection. These may include: \.br\? Pain when you urinate.\.br\? Urinating more often than (more content not included)... Normal [facility] ED Physician Reporton 2021 ED Physician [...] observed, normal speech observed. 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 Electrocardiogram: Time 09/15/2021 10:46:00, rate 94, normal sinus rhythm, No ST-T changes, no ectopy, normal ID & QRS intervals. Last 24 Hours Chemistry [...] pg/mL 09/15/21 Hematology WBC 11.4 x106/uL 09/15/21 \.br\HGB 13.9 g/dL 09/15/21 \.br\HCT 41.0 % 09/15/21 \.br\MCV 87.8 fL 09/15/21 \.br\MCH 29.7 pg 09/15/21 \.br\MCHC 33.9 g/dL 09/15/21 \.br\RDW 14.6 % 09/15/21 \.br\Platelet 194 x103/uL 09/15/21 \.br\MPV 8.2 fL 09/15/21 \.br\Lymph % 18.7 % 09/15/21 \.br\Berkeley % 7.8 % 09/15/21 \.br\Neutrophil % 70.3 % 09/15/21 \.br\Eosin % 2.8 % 09/15/21 \.br\Basos % 0.4 % 09/15/21 \.br\Lymph Count 2.13 x1000 09/15/21 \.br\[place]keley Count 0.89 x1000 09/15/21 \.br\Neutrophil Count (ANC) 8.03 x1000 09/15/21 \.br\Eos Count 0.32 x1000 09/15/21 \.br\Baso Count 0.04 x1000 09/15/21 \.br\Nucleated RBC 0 /100WBC 09/15/21 \.br\MDW 17.83 09/15/21 \.br\\.br\\.br\CT ABD PELVIS WO CONTRAST\.br\ \.br\09/15/21 10:58:00\.br\EXAM:\. br\CT Abdomen and Pelvis Without Intravenous Contrast\.br\\.br\IN DICATION:\.br\Abdomi nal tenderness\.br\\.br\ TECHNIQUE:\.br\Axial computed tomography images of the abdomen and pelvis without intravenous contrast. Sagittal and coronal reformatted images were created and reviewed. This CT exam was performed using one or more of the following dose r (more content not included)... Normal [facility] ED Pre-Arrival Formon 2021 ED Pre-Arrival Form Pre-Arrival Summary Name: PHYSICIANS, Current Date: 09/15/2021 10:50:57 EDT Gender: Date of : Age: Pre-Arrival Type: EMS ETA: 09/15/2021 10:58:00 EDT Primary Care Physician: Presenting Problem: Pre-Arrival User: Logan Copeland Referring Source: Location: 1 [facility] Emergency Department [address] [place] [address]. [place] [address] ____ Notes: Vital Signs: Doctor Call Back: DNR Status: Miscellaneous Issues: Normal [facility] ED Progress Noteon ED Progress Note Pt presented to the ED via ambulance from [facility] with c/o increased mid abdominal pain. Per [...] + tenderness to palpation. 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 EKG was completed. IV was placed and labs were drawn. Dr Hoffman was at bedside. 1140- Pt in CT 1250- Physicians called for transport. - 90 minute ETA 1300- Report called to Nurse at [facility]. Nurse updated with patients return and results. Results and paperwork to be sent back with Physicians. 1340- Physicians here for transport. Paperwork given. Pt updated with treatment plan. Normal [facility] ED Triage Adult-Texton 09-15 ED Triage Adult-Text ED Triage Entered On: 09/15/2021 11:09 EDT Performed On: 09/15/2021 10:50 EDT by Giovana Glover RN Triage (As Of: 09/15/2021 11:09:04 EDT) Problems(Active) At risk for falls (SNOMED CT :840875698 ) Name of Problem: At risk for falls ; Recorder: SYSTEM; Confirmation: Confirmed ; Classification: Nursing ; Code: 403989383 ; Last Updated: 03/28/2020 15:22 EST ; Life Cycle Date: 03/28/2020 ; Life Cycle Status: Active ; Vocabulary: SNOMED CT ; Comments: 03/28/2020 15:22 - SYSTEM Problem added automatically by system based on documentation of a admission to the hospital. Auditory hallucinations (SNOMED CT :035361553 ) Name of Problem: Auditory hallucinations ; Recorder: Juliana Duke RN; Confirmation: Confirmed ; Classification: Medical ; Code: 219225269 ; Contributor System: Legal RiverChart ; Last Updated: 03/28/2020 13:07 EST ; Life Cycle Date: 03/28/2020 ; Life Cycle Status: Active ; Vocabulary: SNOMED CT COVID-19 (SNOMED CT :1028524519 ) Name of Problem: COVID-19 ; Recorder: Juliana Duke RN; Confirmation: Confirmed ; Classification: Medical ; Code: 4820819262 ; Contributor System: PowerChart ; Last Updated: 03/28/2020 13:07 EST ; Life Cycle Date: 03/28/2020 ; Life Cycle Status: Active ; Vocabulary: SNOMED CT Dementia (SNOMED CT :98622860 ) Name of Problem: Dementia ; Recorder: Juliana Duke RN; Confirmation: Confirmed ; Classification: Medical ; Code: 26920022 ; Contributor System: PowerChart ; Last Updated: 03/28/2020 13:07 EST ; Life Cycle Date: 03/28/2020 ; Life Cycle Status: Active ; Vocabulary: SNOMED CT Diabetes mellitus (SNOMED CT :311300919 ) Name of Problem: Diabetes mellitus ; Recorder: Juliana Duke RN; Confirmation: Confirmed ; Classification: Medical ; Code: 681040623 ; Contributor System: PowerChart ; Last Updated: 03/28/2020 13:07 EST ; Life Cycle Date: 03/28/2020 ; Life Cycle Status: Active ; Vocabulary: SNOMED CT HTN (hypertension) (SNOMED CT :0541900813 ) Name of Problem: HTN (hypertension) ; Recorder: Juliana Duke RN; Confirmation: Confirmed ; Classification: Medical ; Code: 1284566935 ; Contributor System: PowerChart ; Last Updated: 03/28/2020 13:07 EST ; Life Cycle Date: 03/28/2020 ; Life Cycle Status: Active ; Vocabulary: SNOMED CT Hyperlipemia (SNOMED CT :57138488 ) Name of Problem: Hyperlipemia ; Recorder: Juliana Duke RN; Confirmation: Confirmed ; Classification: Medical ; Code: 21198966 ; Contributor System: PowerChart ; Last Updated: 03/28/2020 13:07 EST ; Life Cycle Date: 03/28/2020 ; Life Cycle Status: Active ; Vocabulary: SNOMED CT Kidney neoplasm (SNOMED CT :650337 ) Name of Problem: Kidney neoplasm ; Recorder: Juliana Duke RN; Confirmation: Confirmed ; Classification: Medical ; Code: 594003 ; Contributor System: PowerChart ; Last Updated: 03/28/2020 13:06 EST ; Life Cycle Date: 03/28/2020 ; Life Cycle Status: Active ; Vocabulary: SNOMED CT Schizoaffective disorder (SNOMED CT :913607472 ) Name of Problem: Schizoaffective disorder ; Recorder: Juliana Duke RN; Confirmation: Confirmed ; Classification: Medical ; Code: 032335785 ; Contributor System: PowerChart ; Last Updated: 03/28/2020 13:06 EST ; Life Cycle Date: 03/28/2020 ; Life Cycle Status: Active ; Vocabulary: SNOMED CT Diagnoses(Active) Abdominal pain Date: 09/15/2021 ; Diagnosis Type: Reason For Visit ; Confirmation: Confirmed ; Clinical Dx: Abdominal pain ; Classification: Medical ; Clinical Service: Emergency medicine ; Code: PNED ; Probability: 0 ; Diagnosis Code: [id number] Nausea Date: 09/15/2021 ; Diagnosis Type: Reason For Visit ; Confirmation: Confirmed ; Clinical Dx: Nausea ; Classification: Medical ; Clinical Service: Emergency medicine ; Code: PNED ; Probability: 0 ; Diagnosis Code: [id number] (As Of: 09/15/2021 11:09:04 EDT) Allergies [...] Glover RN - 09/15/2021 11:08 EDT Normal [facility] HEMOon 09-15-2021 DIFF? No Normal [facility] Comment on above: Performed By: #### 1 [id number] #### [facility] [address] [place], [place] [id number] Admitting Interviewer: Herb Quiroz MD Erythrocyte distribution width (RBC) [Ratio] 14.6 % High 11.5-14.5 [facility] Comment on above: Performed By: #### 1 [id number] #### [facility] [address] [place] [address] Admitting Interviewer: Herb Quiroz MD Hematocrit (Bld) [Volume fraction] 41.0 % Normal 41.0-52.0 [facility] Comment on above: Performed By: #### 1 [id number] #### [facility] [address] [place] [address] Admitting Interviewer: Herb Quiroz MD Hemoglobin (Bld) [Mass/Vol] 13.9 g/dL Normal 13.5-17.5 [facility] Comment on above: Performed By: #### 1 [id number] #### [facility] [address] [place], [place] [id number] Admitting Interviewer: Herb Quiroz MD Instr WBC 11.4 Normal [facility] Comment on above: Performed By: #### 1 [id number] #### [facility] [address] [place], [place] [address] Admitting Interviewer: Herb Quiroz MD MCH (RBC) [Entitic mass] 29.7 pg Normal 27.0-34.0 [facility] Comment on above: Performed By: #### 1 [id number] #### [facility] [address] [place], [place] [id number] Admitting Interviewer: Herb Quiroz MD MCHC (RBC) [Mass/Vol] 33.9 g/dL Normal 32.0-37.0 [facility] Comment on above: Performed By: #### 1 [id number] #### [facility] [address] [place], [place] [id number] Admitting Interviewer: Herb Quiroz MD MCV (RBC) [Entitic vol] 87.8 fL Normal 80.0-100.0 [facility] Comment on above: Performed By: #### 1 [id number] #### [facility] [address] [place] [address] Admitting Interviewer: Herb Quiroz MD MDW 17.83 Normal 13.98-20.00 [facility] Comment on above: Result Comment: MDW [...] risk of Sepsis. Performed By: #### 1 [id number] #### [facility] [address] [place] [address] Admitting Interviewer: Herb Quiroz MD Nucleated RBC 0 /100WBC Normal [facility] Comment on above: Performed By: #### 1 [id number] #### [facility] [address] [address] Admitting Interviewer: Herb Quiroz MD Platelet 194 x10 Normal 150-450 [facility] Comment on above: Performed By: #### 1 [id number] #### [facility] [address] [place] [address] Admitting Interviewer: Herb Quiroz MD Platelet mean volume (Bld) [Entitic vol] 8.2 fL Normal 7.4-10.4 [facility] Comment on above: Performed By: #### 1 [id number] #### [facility] [address] [place] [address] Admitting Interviewer: Herb Quiroz MD RBC 4.66 x10 Low 4.70-6.10 [facility] Comment on above: Result Comment: Note : RBC morphology is normal unless otherwise stated. Evaluation performed only if differential is requested. Performed By: #### 1 [id number] #### [facility] [address] [place] [address] Admitting Interviewer: Herb Quiroz MD WBC 11.4 x10 High 4.5-11.0 [facility] Comment on above: Performed By: #### 1 [id number] #### [facility] [address] [place] [address] Admitting Interviewer: Herb Quiroz MD LACTATEon 09-15-2021 Lactate [Moles/Vol] 1.3 mmol/L Normal 0.4-2.0 [facility] Comment on above: Performed By: #### 9 [id number] #### [facility] [address] [place] [address] Admitting Interviewer: Herb Quiroz MD LIPon 09-15-2021 Lipase [Catalytic activity/Vol] 115 U/L Normal 73-393 [facility] Comment on above: Performed By: #### 1 [id number] #### [facility] [address] [place] [id number] Admitting Interviewer: Herb Quiroz MD TROPONIN HS 0HRon 09-15-2021 Troponin HS 0 Hr 4 pg/mL Normal 3-78 [facility] Comment on above: Performed By: #### 1 [id number] #### [facility] [address] [place] [address] Admitting Interviewer: Herb Quiroz MD Office Visit (Urology)on Follow-up [...] Bilateral; Status:Hold For - Scheduling; Requested for:10May2021; Perform:[facility]; Due:08Aug2021;Ordere d; For:Bilateral renal cysts, BPH with urinary obstruction, Renal calculi, Renal mass, right; Ordered By:Concetta Leon; Radiologist to Determine Optimal Study : Y Requesting physician's phone/pager number? : [phone] What are the patient's signs and symptoms? [...] and renal ultrasound prior KAROLYN Rendon Line [phone] Office Line [phone] - use only for off hours or emergency contact fax [phone] Provider Impressions I spent 20 minutes with this patient greater than 50% of time was spent in counseling and coordination of care. See my assessment and plan for details Chief Complaint Renal Mass KAROLYN Rendon Line [phone] Office Line [phone] - use only for off hours or emergency contact History of Present Illnessincidental finding or renal mass has renal cysts and calculi enlarged prostate on tamsulosin resides in [facility] history of abn CT scan without contrast [...] age 5, defects Social History resides in [facility] International Prostate Symptom Score (I-PSS) I-PSS Total [...] no d (more content not included)... Normal Rad Radiologyon 04-28-2021 US Kidney - bilateral Normal [facility]- Urology-[facility] Work Phone: US RENAL BILATon 04-28-2021 US RENAL BILAT Patient Name: ALLAN LARA STUDY: US RENAL BILAT; 04/28/2021 10:22 am INDICATION: Renal Cyst and Renal stones. COMPARISON: 09/03/2020. ACCESSION NUMBER(S): [id number] ORDERING CLINICIAN: CONCETTA LEON TECHNIQUE: Real-time sonographic [...] Electronically signed by: YAZAN MILES MD Normal [facility] CBC AND DIFFERENTIALon 04-22 % AUTOMATED IMMATURE GRAN 0.8 % Normal 0.0 - 0.9 [facility] Comment on above: Result Comment: Maryam ture Granulocyte Count (IG) includes promyelocytes, myelocytes and metamyelocytes but does not include bands. Percent differential counts (%) should be interpreted in the context of the absolute cell counts (cells/L). Performed By: #### C BCDF #### [address] [address] Basophils (Bld) [#/Vol] 0.08 10*3/uL Normal 0.00 - 0.1 0 [facility] Comment on above: Performed By: #### C BCDF #### [address] [address] Basophils/100 WBC (Bld) 0.7 % Normal 0.0 - 2.0 [facility] Comment on above: Performed By: #### C BCDF #### [address] [address] Eosinophils (Bld) [#/Vol] 0.24 10*3/uL Normal 0.00 - 0.40 [facility] Comment on above: Performed By: #### C BCDF #### [address] [address] Eosinophils/100 WBC (Bld) 2.0 % Normal 0.0 - 6.0 [facility] Comment on above: Performed By: #### C BCDF #### [address] [address] Erythrocyte distribution width (RBC) [Ratio] 13.2 % Normal 11.5 - 14.5 [facility] Comment on above: Performed By: #### C BCDF #### [address] [address] Hematocrit (Bld) [Volume fraction] 40.7 % Low 41.0 - 52.0 [facility] Comment on above: Performed By: #### C BCDF #### [address] [address] Hemoglobin (Bld) [Mass/Vol] 13.2 g/dL Low 13.5 - 17.5 [facility] Comment on above: Performed By: #### C BCDF #### [address] [address] Lymphocytes (Bld) [#/Vol] 2.95 10*3/uL Normal 0.80 - 3.00 [facility] Comment on above: Performed By: #### C BCDF #### [address] [address] Lymphocytes/100 WBC (Bld) 24.1 % Normal 13.0 - 44.0 [facility] Comment on above: Performed By: #### C BCDF #### [address] [address] MCHC (RBC) [Mass/Vol] 32.4 g/dL Normal 32.0 - 36.0 [facility] Comment on above: Performed By: #### C BCDF #### [address] [address] MCV (RBC) [Entitic vol] 90 fL Normal 80 - 100 [facility] Comment on above: Performed By: #### C BCDF #### [address] [address] Monocytes (Bld) [#/Vol] 1.05 10*3/uL High 0.05 - 0.8 0 [facility] Comment on above: Performed By: #### C BCDF #### [address] [address] Monocytes/100 WBC (Bld) 8.6 % Normal 2.0 - 10.0 [facility] Comment on above: Performed By: #### C BCDF #### [address] [address] Neutrophils (Bld) [#/Vol] 7.82 10*3/uL High 1.60 - 5.50 [facility] Comment on above: Performed By: #### C BCDF #### [address] [address] Neutrophils/100 WBC (Bld) 63.8 % Normal 40.0 - 80.0 [facility] Comment on above: Performed By: #### C BCDF #### [address] [address] NUCLEATED RBC 0.0 /100 WBC Normal 0.0 - 0.0 [facility] Comment on above: Performed By: #### C BCDF #### [facility] [address] [place] [address] Platelets (Bld) [#/Vol] 324 10*3/uL Normal 150 - 450 [facility] Comment on above: Performed By: #### C BCDF #### [facility] [address] [place] [address] RBC 4.52 x10E12/L Normal 4.50 - 5.90 [facility] Comment on above: Performed By: #### C BCDF #### [facility] [address] [place] [address] WBC (Bld) [#/Vol] 12.2 10*3/uL High 4.4 - 11.3 [facility] Comment on above: Performed By: #### C BCDF #### [facility] [address] [place] [address] COMPREHENSIVE PANELon 2021 Albumin [Mass/Vol] 3.5 g/dL Normal 3.4 - 5.0 [facility] Comment on above: Performed By: #### C MP #### [facility] [address] [place] [address] ALP [Catalytic activity/Vol] 62 U/L Normal 33 - 136 [facility] Comment on above: Performed By: #### C MP #### [facility] [address] [place] [address] ALT [Catalytic activity/Vol] 10 U/L Normal 10 - 52 [facility] Comment on above: Result Comment: Jamilah ents treated with Sulfasalazine may generate falsely decreased results for ALT. Performed By: #### C MP #### [facility] [address] [place] [address] Anion gap [Moles/Vol] 10 mmol/L Normal 10 - 20 [facility] Comment on above: Performed By: #### C MP #### [facility] [address] [place] [address] AST [Catalytic activity/Vol] 10 U/L Normal 9 - 39 [facility] Comment on above: Performed By: #### C MP #### [facility] [address] [place] [address] Bilirubin [Mass/Vol] 0.5 mg/dL Normal 0.0 - 1.2 [facility] Comment on above: Performed By: #### C MP #### [address] [address] Calcium [Mass/Vol] 8.6 mg/dL Normal 8.6 - 10.3 [facility] Comment on above: Performed By: #### C MP #### [address] [address] Chloride [Moles/Vol] 106 mmol/L Normal 98 - 107 [facility] Comment on above: Performed By: #### C MP #### [address] [address] Creatinine [Mass/Vol] 1.04 mg/dL Normal 0.50 - 1.30 [facility] Comment on above: Performed By: #### C MP #### [address] [address] GFR/1.73 sq M.predicted among non-blacks MDRD (S/P/Bld) [Vol rate/Area] 76 mL/min/{1.73_m2} Normal >90 [facility] Comment on above: Result Comment: CALC ULATIONS OF ESTIMATED GFR ARE PERFORMED USING THE 2020 CKD-EPI STUDY REFIT EQUATION WITHOUT THE RACE VARIABLE FOR THE IDMS-TRACEABLE CREATININE METHODS. https://jasn.asnjournals.org/content//ASN.491 6320931 Performed By: #### C MP #### [address] [address] Glucose [Mass/Vol] 98 mg/dL Normal 74 - 99 [facility] Comment on above: Performed By: #### C MP #### [address] [address] HCO3 (Bld) [Moles/Vol] 25 mmol/L Normal 21 - 32 [facility] Comment on above: Performed By: #### C MP #### [address] [address] Potassium [Moles/Vol] 4.2 mmol/L Normal 3.5 - 5.3 [facility] Comment on above: Performed By: #### C MP #### [facility] [address] [facility] [place] [address] Protein [Mass/Vol] 5.6 g/dL Low 6.4 - 8.2 [facility] Comment on above: Performed By: #### C MP #### [facility] [address] [facility] [place] [address] Sodium [Moles/Vol] 137 mmol/L Normal 136 - 145 [facility] Comment on above: Performed By: #### C MP #### [facility] [address] [place] [address], [place] [address] Urea nitrogen [Mass/Vol] 14 mg/dL Normal 6 - 23 [facility] Comment on above: Performed By: #### C MP #### [address] [place] [address] Complete Blood Count + Diffe rentialon 04-21-2021 Basophils/100 WBC (Bld) 0.7 % 0.0 - 2.0 M -Urology-U [facility] Work Phone: Erythrocyte distribution width (RBC) [Ratio] 13.2 % See Below NL[facility] Work Phone: Comment on above: Reference Range: 11. 5 - 14.5 Hematocrit (Bld) [Volume fraction] 40.7 % below low threshold See Below AZ[facility]fnurtv[facility] Work Phone: Comment on above: Reference Range: 41. 0 - 52.0 Hemoglobin (Bld) [Mass/Vol] 13.2 g/dL below low threshold See Below VM[facility]Skdphtb[facility] Work Phone: Comment on above: Reference Range: 13. 5 - 17.5 Lymphocytes/100 WBC (Bld) 24.1 % See Below ME-Bcupzpx-E [facility] Work Phone: Comment on above: Reference Range: 13. 0 - 44.0 MCHC (RBC) [Mass/Vol] 32.4 g/dL See Below - Urology-U [facility] Work Phone: Comment on above: Reference Range: 32. 0 - 36.0 MCV (RBC) [Entitic vol] 90 fL 80 - 100 M -Urology-U [facility] Work Phone: Monocytes/100 WBC (Bld) 8.6 % 2.0 - 10.0 M -Urology-U [facility] Work Phone: [phone] Neutrophils/100 WBC (Bld) 63.8 % See Below ML-Jhcrfuc-D H [facility] Work Phone: Comment on above: Reference Range: 40. 0 - 80.0 Platelets (Bld) [#/Vol] 324 10*3/uL 150 - 450 SK-Lskrgtj-H [facility] Work Phone: [phone] RBC (Bld) [#/Vol] 4.52 {x10E12/L} See Below MG -Urology-U [facility] Work Phone: Comment on above: Reference Range: 4.5 0 - 5.90 WBC (Bld) [#/Vol] 12.2 10*3/uL above high threshold 4.4 - 11.3 BO-Kfsiuus-C H [facility] Work Phone: [phone] Complete Blood Count + Differential 0.08 {x10E9/L} See Below VE-Dxrgblj-E [facility] Work Phone: Comment on above: Reference Range: 0.0 0 - 0.10 Complete Blood Count + Differential 0.24 {x10E9/L} See Below SV-Olniqlz-Q [facility] Work Phone: Comment on above: Reference Range: 0.0 0 - 0.40 Complete Blood Count + Differential 1.05 {x10E9/L} above high threshold See Below DL-Uqinlmz-E [facility] Work Phone: Comment on above: Reference Range: 0.0 5 - 0.80 Complete Blood Count + Differential 2.95 {x10E9/L} See Below EY-Uwgroct-U [facility] Work Phone: Comment on above: Reference Range: 0.8 0 - 3.00 Complete Blood Count + Differential 7.82 {x10E9/L} above high threshold See Below TP-Iftzhfz-N H [facility] Work Phone: Comment on above: Reference Range: 1.6 0 - 5.50 Complete Blood Count + Differential 2.0 % 0.0 - 6.0 EG-Anpfetw-E [facility] Work Phone: Complete Blood Count + Differential 0.8 % 0.0 - 0.9 TJ-Vzhixka-B [facility] Work Phone: Comment on above: Immature Granulocyte Count (IG) includes promyelocytes, myelocytes and metamyelocytes but does not include bands. Percent differential counts (%) should be interpreted in the context of the absolute cell counts (cells/L). Complete Blood Count + Differential 0.0 {/100_WBC} 0.0 - 0.0 ZW-Saixtxf-Z [facility] Work Phone: Laboratory - Chemistry and C hemistry - challengeon 04-21-2021 Albumin BCP dye [Mass/Vol] 3.5 g/dL 3.4 - 5.0 ZE-Foptopu-G [facility] Work Phone: ALP [Catalytic activity/Vol] 62 U/L 33 - 136 XM-Wxifcqq-V H [facility] Work Phone: ALT With P-5'-P [Catalytic activity/Vol] 10 U/L 10 - 52 MG-Urol ogy-U [facility] Work Phone: Comment on above: Patients treated wit h Sulfasalazine may generate falsely decreased results for ALT. Anion gap [Moles/Vol] 10 mmol/L 10 - 20 MG- Urology-U [facility] Work Phone: AST With P-5'-P [Catalytic activity/Vol] 10 U/L 9 - 39 MG-Urol ogy-U [facility] Work Phone: Bilirubin [Mass/Vol] 0.5 mg/dL 0.0 - 1.2 MG-U rology-U [facility] Work Phone: Calcium [Mass/Vol] 8.6 mg/dL 8.6 - 10.3 MG-Uro logy-U [facility] Work Phone: Chloride [Moles/Vol] 106 mmol/L 98 - 107 MG-U rology-U [facility] Work Phone: CO2 [Moles/Vol] 25 mmol/L 21 - 32 MG-Urolog y-U [facility] Work Phone: Creatinine [Mass/Vol] 1.04 mg/dL See Below MG- Urology-U [facility] Work Phone: Comment on above: Reference Range: 0.5 0 - 1.30 Glucose [Mass/Vol] 98 mg/dL 74 - 99 MG-Uro logy-U [facility] Work Phone: Potassium [Moles/Vol] 4.2 mmol/L 3.5 - 5.3 MG- Urology-U [facility] Work Phone: Protein [Mass/Vol] 5.6 g/dL below low threshold 6.4 - 8.2 YL-Vcgphyj-F [facility] Work Phone: Sodium [Moles/Vol] 137 mmol/L 136 - 145 MG-Uro logy-U [facility] Work Phone: Urea nitrogen [Mass/Vol] 14 mg/dL 6 - 23 MM-Nfpbogg-N [facility] Work Phone: No Panel Informationon 04-21 76 {mL/min/1.73m2} >90 MG-Uro logy-U H [facility] Work Phone: Comment on above: CALCULATIONS OF ESEQUIEL MATED GFR ARE PERFORMED USING THE 2020 CKD-EPI STUDY REFIT EQUATION WITHOUT THE RACE VARIABLE FOR THE IDMS-TRACEABLE CREATININE METHODS.https://jasn.asnjournals.org/content/ /ASN.2034801789 C BLOODon 04-10-2021 [facility] [address] [place] [phone] Name: ALLAN LARA : 1950 Admitting ANAIS GAMBOA DO Provider: Gender: Male [facility] [phone] Number: Location: 2DMO; D242; 01 Admit 04/05/2021 [...] Print Date/ 04/10/2021 07:01 EST Time: Normal [facility] Comment on above: Performed By: #### 1 [id number] ####[facility] [address] [place] [address] Medical Director: Herb Quiroz MD C BLOOD [facility] Dept of Laboratory Services [address] [place] [phone] Name: ALLAN LARA : 1950 Admitting ANAIS GAMBOA DO Provider: Gender: Male [employer] [phone] Number: Location: 2DMO; D242; 01 Admit 04/05/2021 [...] Print Date/ 04/10/2021 07:01 EST Time: Normal [facility] Comment on above: Performed By: #### 1 [id number] #### [facility] Laboratory Services [address] [place] [address] Admitting Interviewer: Herb Quiroz MD Discharge Educationon 2021 Discharge Education Patient Education Material Normal [facility] Inpatient Patient Summaryon 04-10-2021 Inpatient Patient Summary [facility] Discharge Instructions [address] [place] [address], [place] [address] \.br\(Patient Copy)\.br\ \.br\ \.br\Name: ALLAN LARA : 1950 \.br\Diagnosis: Acute diarrhea; Acute renal failure (ARF); COVID-19; Dehydration; Dementia; Diabetes mellitus; HTN (hypertension); Hyperkalemia; Hyperlipemia; Kidney neoplasm; Severe sepsis; Tachycardia \.br\ \.br\Allergies: No Known Allergies\.br\ \.br\Registration Date: 04/05/21\.br\\.br\\. br\ \.br\ Current Date Time: 04/09/2021 22:50:09 \.br\ \.br\Address: [address] [place] [address] \.br\ \.br\ \.br\Primary Care Provider: \.br\Name: CASE KAUFFMAN, JESSI Cruz\.br\ \.br\ \.br\Thank you for choosing [facility] for your care. You are very important to us. Our goal is to demonstrate our high quality medical care and provide you with a very good patient experience.\.br\ You may receive a survey about our service. Please take the time to complete the survey and return it so we can continue to enhance our service.\.br\ Thank you again for allowing [facility] to care for your medical needs. If you have any questions about your care or follow up information please contact your doctor.\.br\\.br\Fol low-up Instructions\.br\\.b r\\.br\With: Address: When: \.br\Renal US to be done in 6 months \.br\\.br\\.br\With: Address: When: \.br\Cyril BARRIENTOS Physician (Medical) [address], [address] [place] [address]\.br\ Business (1) \.br\Comments: \.br\Please follow up in 2 months \.br\\.br\\.br\With: Address: When: \.br\JUAN KAPLAN, Urology [address] [place] [address]\.br\ Business (1) Within Call for Appointment \.br\Comments: \.br\Follow up for new Flomax prescription, romero while in the hospital for retention \.br\\.br\\.br\\.br\ \.br\\.br\Medication Information\.br\Only Take The Medicines On This List. \.br\Keep This List and Bring It To Your Next Appointment. \.br\Medicines To Take At Home: \.br\ Medicine Name\.br\ (Generic Name) Amount to Take How to Take it How Often to Take it Additional Instructions Next Dose Due \.br\ acetaminophen 325 mg oral tablet\.br\(acetamin ophen) 650 mg By Mouth EVERY SIX HOURS Take as needed for pain\.br\\.br\\.br\\ .br\\.br\\.br\ \.br\ albuterol-ipratropiu m 2.5 mg-0.5 mg/3 mL inhalation solution = DuoNeb\.br\(albutero l-ipratropium) 3 mL Inhalation EVERY FOUR HOURS RESPIRATORY Take as needed for Wheezing or Dyspnea\.br\\.br\\.b r\\.br\\.br\\.br\ \.br\ Norvasc 10 mg oral tablet\.br\(amlodipi ne) 10 mg By Mouth AT BEDTIME \.br\ Lipitor 10 mg oral tablet\.br\(atorvast atin) 10 mg By Mouth AT BEDTIME \.br\ Vitamin D3 5000 intl units (125 mcg) oral tablet\.br\(cholecal ciferol) 125 mcg By Mouth DAILY \.br\ cloZAPine 100 mg oral tablet\.br\(clozapin e) 100 mg By Mouth DAILY AM DOSE\.br\\.br\\.br\\ .br\ \.br\ cloZAPine 200 mg oral tablet\.br\(clozapin e) 200 mg By Mouth AT BEDTIME \.br\ Colace 100 mg oral capsule\.br\(docusat e) 100 mg By Mouth TWICE A DAY \.br\ Synthroid 50 mcg (0.05 mg) oral tablet\.br\(levothyr oxine) 50 mcg By Mouth DAILY \.br\ omeprazole 20 mg oral delayed release capsule\.br\(omepraz ole) 20 mg By Mouth AT BEDTIME \.br\ [place] 0.65% nasal spray\.br\(sodium chloride nasal) 2 sprays Intranasal FOUR TIMES A DAY Take as needed for Congestion\.br\\.br\ \.br\\.br\\.br\\.br\ \.br\ Flomax 0.4 mg oral capsule\.br\(tamsulo sin) 0.4 mg By Mouth TWICE A DAY \.br\\.br\Understand ing your home medicine is important to [...] list with you to all follow up appointments.\.br\\. br\Patient education materials, if any, will display below\.br\\.br\ Prescription leaflets, if any, will display below\.br\ \.br\Guidelines for a Healthy Lifestyle:\.br\ ACTIVITY Follow your doctors instructions regarding staying active\.br\Balance rest and activity. Continue to do the activities you enjoy if okay with your doctor. Both activity and rest are important to the health of your heart.\.br\Avoid people with colds / flu.\.br\ \.br\ SMOKING Do not smoke or use other nicotine products. Nicotine is in all tobacco products. Nicotine causes damage to the heart, brain, and lungs. It is never too late to quit. Even if you have smoked for years, you can benefit from quitting or smoking less.\.br\If you or a loved one is interested in more information on smoking cessation, contact [facility] [phone]\.br\ \.br\ DIET Eat a variety of nutritious foods from all the food groups. To get the nutrients you need, choose foods like vegetables, fru (more content not included)... Normal [facility] AUTO DIFFon 04-09-2021 Baso Count 0.03 x1000 Normal 0.00-0.20 [facility] Comment on above: Performed By: #### 1 , [id number], [id number] ####[facility] [address]bps167[address] [place] [address] Medical Director: Herb Quiroz MD Basos % 0.3 % Normal [facility] Comment on above: Performed By: #### 1 , [id number], [id number] ####[facility] Pbhwtlmr86857 [place] [address] Medical Director: Herb Quiroz MD Eos Count 0.53 x1000 High 0.00-0.50 [facility] Comment on above: Performed By: #### 1 , 652077, [id number] ####[facility] Owdpirnk48249 [place] [address] Medical Director: Herb Quiroz MD Eosinophils/100 WBC (Bld) 5.1 % Normal [facility] Comment on above: Performed By: #### 1 , 833809, [id number] ####[facility] Yymbekgq24686 [place] [address] Medical Director: Herb Quiroz MD Lymph Count 2.68 x1000 Normal 1.20-4.80 [facility] Comment on above: Performed By: #### 1 , 250224, [id number] ####[facility] Wkypcyup15165 [place] [address] Medical Director: Herb Quiroz MD Lymphocytes/100 WBC (Bld) 26.0 % Normal [facility] Comment on above: Performed By: #### 1 , 636368, [id number] ####[facility] Nogoacwp11992 [place] [address] Medical Director: Herb Quiroz MD [place] Count 0.89 x1000 Normal 0.10-1.00 [facility] Comment on above: Performed By: #### 1 02440, 722914, [id number] ####[facility] [address]rg12[address] [place] [address] Medical Director: Herb Quiroz MD Monocytes/100 WBC (Bld) 8.6 % Normal [facility] Comment on above: Performed By: #### 1 30232, 779152, [id number] ####[facility] Ztpvooxd07173 [place] [address] Medical Director: Herb Quiroz MD Neutrophil Count (ANC) 6.19 x1000 Normal 1.40-8.80 So [facility] Comment on above: Performed By: #### 1 84910, 540721, [id number] ####[facility] Jtjxymnr56897 [place] [address] Medical Director: Herb Quiroz MD Neutrophils/100 WBC (Bld) 60.0 % Normal [facility] Comment on above: Performed By: #### 1 74947, 446961, [id number] ####[facility] [address]zkiwtr[address] [place] [address] Medical Director: Herb Quiroz MD Scan Differential Diff Scd Normal [facility] Comment on above: Result Comment: Slid e reviewed by technologist. Performed By: #### 1 64456, 344730, [id number] ####[facility] [address]joqxrgh66627 [place] [address] Medical Director: Herb Quiroz MD BASICMETAon 04-09-2021 Calcium [Mass/Vol] 8.6 mg/dL Normal 8.5-10.5 [facility] Comment on above: Performed By: #### 1 84626, 781787, [id number] ####[facility] [address]jcsmre92260 [place] [address] Medical Director: Herb Quiroz MD Chloride [Moles/Vol] 110 mmol/L High 100-109 [facility] Comment on above: Performed By: #### 1 81560, 866446, [id number] ####[facility] Xnlnypij01856 [place] [address] Medical Director: Herb Quiroz MD CO2 [Moles/Vol] 25.5 mmol/L Normal 21.0-32.0 [facility] Comment on above: Performed By: #### 1 94314, 472834, [id number] ####[facility] [address]seodkjw76520 [place] [address] Medical Director: Herb Quiroz MD Creatinine [Mass/Vol] 1.0 mg/dL Normal 0.7-1.3 [facility] Comment on above: Performed By: #### 1 03015, 928746, [id number] ####[facility] [address]q933[address] [place] [address] Medical Director: Herb Quiroz MD GFR AA >60 Normal [facility] Comment on above: Result Comment: Afri can [place] GFR Calc Medical judgement is necessary to [...] for drug dosing. Performed By: #### 1 85601, 924628, [id number] ####[facility] [address]gpoiuxn[address]49 [place] [address] Medical Director: Herb Quiroz MD Glomerular Filtration Rate >60 Normal [facility] Comment on above: Result Comment: Non [...] for drug dosing. Performed By: #### 1 89812, 929209, [id number] ####[facility] Ovkhtsha01487 [place], [place] [id number]) [phone] Director: Herb Quiroz MD Glucose [Mass/Vol] 156 mg/dL High 72-100 [facility] Comment on above: Result Comment: Nori puncture should occur prior to sulfasalazine administration due to the potential for falsely depressed results. Venipuncture should occur prior to sulfapyridine administration due to the potential falsely elevated results. Baseline assay values before administration of sulfasalazine and sulfapyridine therapy would not be affected. Performed By: #### 1 17684, 777238, [id number] ####[facility] Lbamatbf03448 [place], [place] [id number]) [phone] Director: Herb Quiroz MD Osmolality [Osmolality] 286 mosm/kg Normal 275-295 [facility] Comment on above: Performed By: #### 1 18768, 139186, [id number] ####[facility] Ewhvycms20911 [place] [address] Medical Director: Herb Quiroz MD Potassium [Moles/Vol] 3.5 mmol/L Normal 3.5-5.1 [facility] Comment on above: Performed By: #### 1 82035, 257435, [id number] ####[facility] Hyzgcztl45613 [place] [address] Medical Director: Herb Quiroz MD Sodium [Moles/Vol] 142 mmol/L Normal 135-145 [facility] Comment on above: Performed By: #### 1 47471, 604641, 0790973 ####[facility] Dpqsufkl50662 [place] [address] Medical Director: Herb Quiroz MD Urea nitrogen [Mass/Vol] 12 mg/dL Normal 10-20 [facility] Comment on above: Performed By: #### 1 62816, 235296, 3448184 ####[facility] Hljpekyv74362 [place] [address] Medical Director: Herb Quiroz MD Urea nitrogen/Creatinine [Mass ratio] 12.4 mg/mg Normal [facility] Comment on above: Performed By: #### 1 28594, 743007, [id number] ####[facility] S[address]umiaxq69283 [place] [address] Medical Director: Herb Quiroz MD [place]-Referral Informati onon 04-09-2021 [place]-Referral Information Patient: ALLAN LARA Age: 70 years Sex: Male : 1950 Associated Diagnoses: None Author: GIOVANA BLUNT CNP [place] - Referral Information Patient Information Pt referred to: [facility] Attending Physician Info: Garrett Inpatient Date: [...] accurate reflection of the individual's condition. Normal [facility] HEMOon 04-09-2021 DIFF? No Normal [facility] Comment on above: Performed By: #### 1 83554, 329829, [id number] ####[facility] Oxfpftwl08110 [place], [place] [id number]) [phone] Director: Herb Quiroz MD Nucleated RBC 0 /100WBC Normal [facility] Comment on above: Performed By: #### 1 , 234423, 5353422 ####[facility] [address]jcuqcrz48720 [place], [place] [address]) [phone] Director: Herb Quiroz MD [facility] Actions See Notes Abnormal [facility] Comment on above: Result Comment: Scan Slide. Perform manual diff if needed. SNV Performed By: #### 1 41915, 756716, 9245842 ####[facility] Yjxborhp11916 [place], [place] [address]) [phone] Director: Herb Quiroz MD Erythrocyte distribution width (RBC) [Ratio] 13.7 % Normal 11.5-14.5 [facility] Comment on above: Performed By: #### 1 83305, 693733, 8646105 ####[facility] Jtbikoax61270 [place], [place] [address]) [phone] Director: Herb Quiroz MD Hematocrit (Bld) [Volume fraction] 37.4 % Low 41.0-52.0 [facility] Comment on above: Performed By: #### 1 88750, 469942, 9273817 ####[facility] Gutahuap50574 [place], [place] [address]) [phone] Director: Herb Quiroz MD Hemoglobin (Bld) [Mass/Vol] 13.1 g/dL Low 13.5-17.5 [facility] Comment on above: Performed By: #### 1 26360, 896439, 2040819 ####[facility] Uttfhyhz79731 [place], [place] [address]) [phone] Director: Herb Quiroz MD Instr WBC 10.3 Normal [facility] Comment on above: Performed By: #### 1 77845, 585598, 9898681 ####[facility] Nhtuxxti32261 [place], [place] [id number]) [phone] Director: Herb Quiroz MD MCH (RBC) [Entitic mass] 30.0 pg Normal 27.0-34.0 [facility] Comment on above: Performed By: #### 1 , [id number], [id number] ####[facility] Lkcbgxtz774[address] [place], [place] [id number]) [phone] Director: Herb Quiroz MD MCHC (RBC) [Mass/Vol] 35.1 g/dL Normal 32.0-37.0 [facility] Comment on above: Performed By: #### 1 81093, 225319, [id number] ####[facility] Qrpnraoz53439 [place], [place] [id number]) [phone] Director: Herb Quiroz MD MCV (RBC) [Entitic vol] 85.3 fL Normal 80.0-100.[address] [facility] Comment on above: Performed By: #### 1 47655, 966329, [id number] ####[facility] Afdzfceg48660 [place], [place] [id number]) [phone] Director: Herb Quiroz MD Platelet 203 x1000 Normal 150-450 [facility] Comment on above: Performed By: #### 1 93326, 597430, [id number] ####[facility] Zykfqgtg84296 [place], [place] [id number]) [phone] Director: Herb Quiroz MD Platelet mean volume (Bld) [Entitic vol] 8.3 fL Normal 7.4-10.4 [facility] Comment on above: Performed By: #### 1 56569, 713421, [id number] ####[facility] Xaeiinzi08868 [place] [address] Medical Director: Herb Quiroz MD RBC 4.38 x10 Low 4.70-6.10 [facility] Comment on above: Result Comment: Note : RBC morphology is normal unless otherwise stated. Evaluation performed only if differential is requested. Performed By: #### 1 40476, 605648, [id number] ####[facility] Mrydmzjo59069 [place] [address] Medical Director: Herb Quiroz MD WBC 10.3 x10 Normal 4.5-11.0 [facility] Comment on above: Performed By: #### 1 68668, 236140, [id number] ####[facility] Nmswoupn66577 [place] [address] Medical Director: Herb Quiroz MD MG LEVELon 04-09-2021 Magnesium [Mass/Vol] 1.8 mg/dL Normal 1.6-2.6 [facility] Comment on above: Performed By: #### 9 080519, 054217 #### [facility] [place] [id number] [place] [id number] Admitting Interviewer: Herb Quiroz MD Nursing Clinical Noteon Nursing Clinical Note Report received fr odilia Paul RN 0830- Pt assessed and medicated, denies needs, alarm on, will monitor. Report called to [facility] Normal [facility] POC Glucoseon 04-09-2021 Glucose [Mass/Vol] 171 mg/dL High 72-100 [facility] Comment on above: Performed By: #### 1 [id number] ####[facility] Jvmluica[address]05 [place] [address] Medical Director: Herb Quiroz MD Glucose [Mass/Vol] 149 mg/dL High 72-100 [facility] Comment on above: Performed By: #### 1 21709 #### [facility] [address] [place] [address] Admitting Interviewer: Herb Quiroz MD Glucose [Mass/Vol] 133 mg/dL High 72-100 [facility] Comment on above: Performed By: #### 1 [id number] ####[facility] Dkbgulag27549 [place] [address] Medical Director: Herb Quiroz MD Glucose [Mass/Vol] 162 mg/dL High 72-100 [facility] Comment on above: Performed By: #### 1 [id number] #### [facility] [address] [place] [address] Admitting Interviewer: Herb Quiroz MD Progress Note-Physicianon Progress Note-Physician Patient: ALLAN LARA Age: 70 years Sex: Male : 1950 Associated Diagnoses: Tachycardia; Severe sepsis; Nausea; Multiple falls; Kidney neoplasm; Hyperlipemia; Hyperkalemia; HTN (hypertension); Diabetes mellitus; Dementia; Dehydration; COVID-19; Acute renal failure (ARF); Acute diarrhea Author: SANTI KAUFFMAN, [facility] DISE[facility] Basic Information Admission information: [...] Plan 1. Patient could be discharged from MI perspective 2. No antibiotics on discharge 3. [...] CEFTRIAXONE 1 g 50 mL, IV Piggyback, [id number] CHOLECALCIFEROL 1000 Intl Unit (25mcg) TAB 50 [...] CHLORIDE SYR/VIAL 10ML 3 mL, IV Push, [id number] TAMSULOSIN 0.4MG CAP 0.4 mg 1 caps, ORAL, BID Continuous: (1) SODIUM CHLORIDE 0.9% 1,000 mL 1,000 mL, IV, 80 mL/hr PRN: (11) ACETAMINOPHEN 325 MG TAB 650 mg 2 tabs, ORAL, [id number] ACETAMINOPHEN 325 MG TAB 650 mg 2 tabs, ORAL, G0FGIUX ALBUTEROL 0.083% AEROSOL 2.5mg/3ML 2.5 mg 3 mL, Inhalation, A8AZCVN RESPIRATORY DEXTROSE 50% 50ML SYRINGE/VIAL 12.5 g [...] 0.5 TABLET 2.5 mg 1 EA, ORAL, QHS/[id number] Physical Examination VS/Measurements Vital Signs (last 24 [...] 07) H (more content not included)... Normal [facility] Progress Note-Physician Patient: ALLAN LARA Age: 70 years Sex: Male : 1950 Associated Diagnoses: Tachycardia; Severe sepsis; Nausea; Multiple falls; Kidney neoplasm; Hyperlipemia; Hyperkalemia; HTN (hypertension); Diabetes mellitus; Dementia; Dehydration; COVID-19; Acute renal failure (ARF); Acute diarrhea Author: SANTI KAUFFMAN, [facility]INFECTIOUS DISEASE Basic Information Admission information: [...] CEFTRIAXONE 1 g 50 mL, IV Piggyback, [id number] CHOLECALCIFEROL 1000 Intl Unit (25mcg) TAB 50 [...] CHLORIDE SYR/VIAL 10ML 3 mL, IV Push, [id number] TAMSULOSIN 0.4MG CAP 0.4 mg 1 caps, ORAL, BID Continuous: (1) SODIUM CHLORIDE 0.9% 1,000 mL 1,000 mL, IV, 80 mL/hr PRN: (11) ACETAMINOPHEN 325 MG TAB 650 mg 2 tabs, ORAL, N4SHQFW ACETAMINOPHEN 325 MG TAB 650 mg 2 tabs, ORAL, H4QAAZU ALBUTEROL 0.083% AEROSOL 2.5mg/3ML 2.5 mg 3 mL, Inhalation, L7ILVPO RESPIRATORY DEXTROSE 50% 50ML SYRINGE/VIAL 12.5 g [...] 0.5 TABLET 2.5 mg 1 EA, ORAL, QHS/LCGOGCEWOG4IQXH Physical Examination VS/Measurements Vital Signs (last 24 [...] . Impression and Plan Diagnosis Tachycardia - BHU36-PT R00.0, Medical. Severe sepsis - (more content not included)... Normal [facility] Progress Note-Physician Patient: ALLAN LARA Age: 70 years Sex: Male : 1950 Associated Diagnoses: None Author: ABRAHAM KAUFFMAN, [facility] Nephrology Impression and Plan This [...] CEFTRIAXONE 1 g 50 mL, IV Piggyback, [id number] CHOLECALCIFEROL 1000 Intl Unit (25mcg) TAB 50 [...] CHLORIDE SYR/VIAL 10ML 3 mL, IV Push, I94HHTCV TAMSULOSIN 0.4MG CAP 0.4 mg 1 caps, ORAL, BID Continuous: (1) SODIUM CHLORIDE 0.9% 1,000 mL 1,000 mL, IV, 80 mL/hr PRN: (11) ACETAMINOPHEN 325 MG TAB 650 mg 2 tabs, ORAL, P1WQLCT ACETAMINOPHEN 325 MG TAB 650 mg 2 tabs, ORAL, K0EQVIC ALBUTEROL 0.083% AEROSOL 2.5mg/3ML 2.5 mg 3 mL, Inhalation, B4TOYCR RESPIRATORY DEXTROSE 50% 50ML SYRINGE/VIAL 12.5 g [...] 0.5 TABLET 2.5 mg 1 EA, ORAL, QHS/PKHXWCDZWF9GZBS Allergies: Allergic Reactions (Selected) No Known Allergies [...] 13.1 ( (more content not included)... Normal [facility] Progress Note-Physician Patient: ALLAN LARA Age: [...] CEFTRIAXONE 1 g 50 mL, IV Piggyback, O64BCEAQ CHOLECALCIFEROL 1000 Intl Unit (25mcg) TAB 50 [...] CHLORIDE SYR/VIAL 10ML 3 mL, IV Push, M76YKOZQ TAMSULOSIN 0.4MG CAP 0.4 mg 1 caps, ORAL, BID Continuous: (1) SODIUM CHLORIDE 0.9% 1,000 mL 1,000 mL, IV, 80 mL/hr PRN: (11) ACETAMINOPHEN 325 MG TAB 650 mg 2 tabs, ORAL, F2SKNAM ACETAMINOPHEN 325 MG TAB 650 mg 2 tabs, ORAL, L7BRXOG ALBUTEROL 0.083% AEROSOL 2.5mg/3ML 2.5 mg 3 mL, Inhalation, I5YWAOB RESPIRATORY DEXTROSE 50% 50ML SYRINGE/VIAL 12.5 g [...] 0.5 TABLET 2.5 mg 1 EA, ORAL, QHS/AHUMIOMZJX5JYYO Physical Examination Vital Signs (last 24 hrs) [...] and ureter (more content not included)... Normal [facility] Progress Note-Physician Patient: ALLAN LARA Age: [...] CEFTRIAXONE 1 g 50 mL, IV Piggyback, O89SIKZK CHOLECALCIFEROL 1000 Intl Unit (25mcg) TAB 50 [...] CHLORIDE SYR/VIAL 10ML 3 mL, IV Push, A42OTJIN TAMSULOSIN 0.4MG CAP 0.4 mg 1 caps, ORAL, BID Continuous: (1) SODIUM CHLORIDE 0.9% 1,000 mL 1,000 mL, IV, 80 mL/hr PRN: (11) ACETAMINOPHEN 325 MG TAB 650 mg 2 tabs, ORAL, R5BZOEW ACETAMINOPHEN 325 MG TAB 650 mg 2 tabs, ORAL, G5CLVMM ALBUTEROL 0.083% AEROSOL 2.5mg/3ML 2.5 mg 3 mL, Inhalation, H8GYHBV RESPIRATORY DEXTROSE 50% 50ML SYRINGE/VIAL 12.5 g [...] 0.5 TABLET 2.5 mg 1 EA, ORAL, QHS/UQSXCWPWOZ7WMHU Physical Examination Vital Signs (last 24 hrs) [...] the righ (more content not included)... Normal [facility] AUTO DIFFon 04-08-2021 Baso Count 0.02 x1000 Normal 0.00-0.20 [facility] Comment on above: Performed By: #### 9 [id number], 758712 #### [facility] [address] [place] [address] Admitting Interviewer: Herb Quiroz MD Basos % 0.2 % Normal [facility] Comment on above: Performed By: #### 9 542593, 785743 #### [facility] [address] [place] [address] Admitting Interviewer: Herb Quiroz MD Eos Count 0.34 x1000 Normal 0.00-0.50 [facility] Comment on above: Performed By: #### 9 114618, 841457 #### [facility] [address] [place] [address] Admitting Interviewer: Herb Quiroz MD Eosinophils/100 WBC (Bld) 3.2 % Normal [facility] Comment on above: Performed By: #### 9 222385, 268926 #### [facility] [address] [place] [address] 780[address] Admitting Interviewer: Herb Quiroz MD Lymph Count 2.54 x1000 Normal 1.20-4.80 [facility] Comment on above: Performed By: #### 9 477644, 047807 #### [facility] [address] [place] [address] Admitting Interviewer: Herb Quiroz MD Lymphocytes/100 WBC (Bld) 24.4 % Normal [facility] Comment on above: Performed By: #### 9 890627, 255971 #### [facility] [address] [place] [address] 50067 Admitting Interviewer: Herb Quiroz MD [place] Count 0.76 x1000 Normal 0.10-1.00 [facility] Comment on above: Performed By: #### 9 658892, 802409 #### [facility] [address] [place] [address] Admitting Interviewer: Herb Quiroz MD Monocytes/100 WBC (Bld) 7.3 % Normal [facility] Comment on above: Performed By: #### 9 751124, 524186 #### [facility] [address] [place] [address]647 Admitting Interviewer: Herb Quiroz MD Neutrophil Count (ANC) 6.75 x1000 Normal 1.40-8.80 So [facility] Comment on above: Performed By: #### 9 023298, 670822 #### [facility] [address] [place] [address] Admitting Interviewer: Herb Quiroz MD Neutrophils/100 WBC (Bld) 64.8 % Normal [facility] Comment on above: Performed By: #### 9 223914, 804869 #### [facility] [address] [place] [address] 74[address] Admitting Interviewer: Herb Quiroz MD HEMOon 04-08-2021 DIFF? No Normal [facility] Comment on above: Performed By: #### 9 173725, 924263 #### [facility] [address] [place] [address] 61583 Admitting Interviewer: Herb Quiroz MD Erythrocyte distribution width (RBC) [Ratio] 13.5 % Normal 11.5-14.5 [facility] Comment on above: Performed By: #### 9 665887, 579031 #### [facility] [address] [place] [address] 77201 Admitting Interviewer: Herb Quiroz MD Hematocrit (Bld) [Volume fraction] 35.2 % Low 41.0-52.0 [facility] Comment on above: Performed By: #### 9 995234, 905615 #### [facility] [address] [place] [address] Admitting Interviewer: Herb Quiroz MD Hemoglobin (Bld) [Mass/Vol] 12.2 g/dL Low 13.5-17.5 [facility] Comment on above: Performed By: #### 9 498452, 633284 #### [facility] [address] [place] [address] 63[address] Admitting Interviewer: Herb Quiroz MD Instr WBC 10.4 Normal [facility] Comment on above: Performed By: #### 9 360291, 709655 #### [facility] [address] [place] [address] 97056 Admitting Interviewer: Herb Quiroz MD MCH (RBC) [Entitic mass] 29.9 pg Normal 27.0-34.0 [facility] Comment on above: Performed By: #### 9 222062, 644019 #### [facility] [address] [place] [address] 00525 Admitting Interviewer: Herb Quiroz MD MCHC (RBC) [Mass/Vol] 34.6 g/dL Normal 32.0-37.0 [facility] Comment on above: Performed By: #### 9 851186, 249276 #### [facility] [address] [place] [address] 57280 Admitting Interviewer: Herb Quiroz MD MCV (RBC) [Entitic vol] 86.5 fL Normal 80.0-100.[address] [facility] Comment on above: Performed By: #### 9 687102, 977152 #### [facility] [address] [place] [address] 85791 Admitting Interviewer: Herb Quiroz MD Nucleated RBC 0 /100WBC Normal [facility] Comment on above: Performed By: #### 9 961811, 074917 #### [facility] [address] [place] [address] 46033 Admitting Interviewer: Herb Quiroz MD Platelet 174 x1000 Normal 150-450 [facility] Comment on above: Performed By: #### 9 039785, 633918 #### [facility] [address] [place] [address] 87092 Admitting Interviewer: Herb Quiroz MD Platelet mean volume (Bld) [Entitic vol] 8.7 fL Normal 7.4-10.4 [facility] Comment on above: Performed By: #### 9 909106, 868155 #### [facility] [address] [place] [address] 63013 Admitting Interviewer: Herb Quiroz MD RBC 4.07 x10 Low 4.70-6.10 [facility] Comment on above: Result Comment: Note : RBC morphology is normal unless otherwise stated. Evaluation performed only if differential is requested. Performed By: #### 9 045609, 931825 #### [facility] [address] [place], [place] [address] Admitting Interviewer: Herb Quiroz MD WBC 10.4 x10 Normal 4.5-11.0 [facility] Comment on above: Performed By: #### 9 217296, 177228 #### [facility] [address] [place] [address] 20478 Admitting Interviewer: Herb Quiroz MD MG LEVELon 04-08-2021 Magnesium [Mass/Vol] 1.8 mg/dL Normal 1.6-2.6 [facility] Comment on above: Performed By: #### 9 480251, 601613 #### [facility] [address] [place] [address] 48689 Admitting Interviewer: Herb Quiroz MD Nursing Clinical Noteon Nursing [...] all needs met at this time Normal [facility] POC Glucoseon 04-08-2021 Glucose [Mass/Vol] 165 mg/dL High 72-100 [facility] Comment on above: Performed By: #### 9 507990, 197077 #### [facility] [address] [place] [address] 34338 Admitting Interviewer: Herb Quiroz MD Glucose [Mass/Vol] 110 mg/dL High [address] [place] [address] Comment on above: Performed By: #### 1 [id number] ####[facility] [address] [place] [address] Medical Director: Herb Quiroz MD Glucose [Mass/Vol] 173 mg/dL [address] Comment on above: Performed By: #### 9 263243, 626730 #### [facility] [address] [place] [address] 28352 Admitting Interviewer: Herb Quiroz MD Glucose [Mass/Vol] 128 mg/dL [facility] [address] [facility] Comment on above: Performed By: #### 1 [id number] #### [facility] [address] [place] [address] 67929 Admitting Interviewer: Herb Quiroz MD PREALBon 04-08-2021 PREALB 15.5 mg/dL Low 20.0-40.0 [facility] Comment on above: Performed By: #### 6 935304, 5725874 ####[facility] [address] [place] [address] Medical Director: Herb Quiroz MD Progress Note-Physicianon Progress Note-Physician Patient: ALLAN LARA Age: 70 years Sex: Male : 1950 Associated Diagnoses: None Author: ABRAHAM KAUFFMAN, [facility] Nephrology Impression and Plan This [...] CEFTRIAXONE 1 g 50 mL, IV Piggyback, [id number] CHOLECALCIFEROL 1000 Intl Unit (25mcg) TAB 50 [...] CHLORIDE SYR/VIAL 10ML 3 mL, IV Push, S40PROQH TAMSULOSIN 0.4MG CAP 0.4 mg 1 caps, ORAL, BID Continuous: (0) PRN: (11) ACETAMINOPHEN 325 MG TAB 650 mg 2 tabs, ORAL, J2DPLQB ACETAMINOPHEN 325 MG TAB 650 mg 2 tabs, ORAL, F5VXBLM ALBUTEROL 0.083% AEROSOL 2.5mg/3ML 2.5 mg 3 mL, Inhalation, G3LQFUQ RESPIRATORY DEXTROSE 50% 50ML SYRINGE/VIAL 12.5 g [...] 0.5 TABLET 2.5 mg 1 EA, ORAL, QHS/XPNBNZVHCA7WIBV Allergies: Allergic Reactions (Selected) No Known Allergies Objective Vital Signs (last 24 hrs) Last Charted Heart Rate Peripheral 95 bpm (APR 08 07:00) Resp Rate 16 br/min (APR 08 07:00) SBP 130 mmHg (APR 08 06:59) DBP 76 mmHg (APR 08 06:59) GENERAL: NAD H (more content not included)... 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 Health Status Current medications: Medications (25) Active Scheduled: (13) AMLODIPINE 10MG TAB 10 mg 1 tabs, ORAL, QHS ATORVASTATIN 10MG TAB 10 mg 1 tabs, ORAL, QHS CEFTRIAXONE 1 g 50 mL, IV Piggyback, P60HUGVV CHOLECALCIFEROL 1000 Intl Unit (25mcg) TAB 50 [...] CHLORIDE SYR/VIAL 10ML 3 mL, IV Push, G71GKMRK TAMSULOSIN 0.4MG CAP 0.4 mg 1 caps, ORAL, BID Continuous: (1) SODIUM CHLORIDE 0.9% 1,000 mL 1,000 mL, IV, 100 mL/hr PRN: (11) ACETAMINOPHEN 325 MG TAB 650 mg 2 tabs, ORAL, J8DYNYV ACETAMINOPHEN 325 MG TAB 650 mg 2 tabs, ORAL, V0XESLR ALBUTEROL 0.083% AEROSOL 2.5mg/3ML 2.5 mg 3 mL, Inhalation, T0BGZSY RESPIRATORY DEXTROSE 50% 50ML SYRINGE/VIAL 12.5 g [...] 0.5 TABLET 2.5 mg 1 EA, ORAL, QHS/HVUDYQBWNN5DXTL Physical Examination Vital Signs (last 24 hrs) [...] unremarkable. Unremarkab (more content not included)... Normal [facility] RENAL PNLon 04-08-2021 Calcium [Mass/Vol] 9.3 mg/dL Normal 8.5-10.5 [facility] Comment on above: Performed By: #### 6 023077, [id number] ####[facility] [address]ky[address] [place] [address] Medical Director: Herb Quiroz MD GFR AA >60 Normal [facility] Comment on above: Result Comment: Afri can Jordanian GFR Calc Medical judgement is necessary to [...] for drug dosing. Performed By: #### 6 517808, [id number] ####[facility] [address]fwqva[address] [place] [address] Medical Director: Herb Quiroz MD Glomerular Filtration Rate >60 Normal [facility] Comment on above: Result Comment: Non [...] for drug dosing. Performed By: #### 6 283182, [id number] ####[facility] [address] [place] [id number] Medical Director: Herb Quiroz MD Osmolality [Osmolality] 285 mosm/kg Normal 275-295 [facility] Comment on above: Performed By: #### 6 763232, [id number] ####[facility] [address]xvgctlp60382 [place] [address] Medical Director: Herb Quiroz MD Urea nitrogen/Creatinine [Mass ratio] 14.0 mg/mg Normal [facility] Comment on above: Performed By: #### 6 714407, [id number] ####[facility] [address] [place] 4045730 Medical Director: Herb Quiroz MD Albumin [Mass/Vol] 2.5 g/dL Low 3.4-5.0 [facility] Comment on above: Performed By: #### 6 065684, 9286501 ####[facility] Yjnjsppm78312 [place] [address] Medical Director: Herb Quiroz MD Calcium [Mass/Vol] 8.1 mg/dL Low 8.5-10.5 [facility] Comment on above: Performed By: #### 6 583433, 8235310 ####[facility] [address]jl49570 [place], [place] [id number]) [phone] Director: Herb Quiroz MD Chloride [Moles/Vol] 111 mmol/L High 100-109 [facility] Comment on above: Performed By: #### 6 531872, [id number] ####[facility] L[address]rhzk[address] [place], [place] [address]) [phone] Director: Herb Quiroz MD CO2 [Moles/Vol] 23.9 mmol/L Normal 21.0-32.0 [facility] Comment on above: Performed By: #### 6 477442, 7837779 ####[facility] Ollxffic34700 [place] [address] Medical Director: Herb Quiroz MD Creatinine [Mass/Vol] 0.9 mg/dL Normal 0.7-1.3 [facility] Comment on above: Performed By: #### 6 693181, 0366799 ####[facility] [address]ak[address] [place], [place] [address]) [phone] Director: Herb Quiroz MD Glucose [Mass/Vol] 107 mg/dL High 72-100 [facility] Comment on above: Result Comment: Nori puncture should occur prior to sulfasalazine administration due to the potential for falsely depressed results. Venipuncture should occur prior to sulfapyridine administration due to the potential falsely elevated results. Baseline assay values before administration of sulfasalazine and sulfapyridine therapy would not be affected. Performed By: #### 6 448447, [id number] ####[facility] [address]75[address] [place], [place] [address]) [phone] Director: Herb Quiroz MD Phosphate [Mass/Vol] 2.6 mg/dL Normal 2.5-4.9 [facility] Comment on above: Performed By: #### 6 301997, 9191045 ####[facility] Timsxths05115 [place], [place] [address]) [phone] Director: Herb Quiroz MD Potassium [Moles/Vol] 3.5 mmol/L Normal 3.5-5.1 [facility] Comment on above: Performed By: #### 6 398803, 5150158 ####[facility] [address]whugynb10450 [place] [address] Medical Director: Herb Quiroz MD Sodium [Moles/Vol] 143 mmol/L Normal 135-145 [facility] Comment on above: Performed By: #### 6 958780, 1756519 ####[facility] [address]ay[address] [place] [address] Medical Director: Herb Quiroz MD Urea nitrogen [Mass/Vol] 12 mg/dL Normal 10-20 [facility] Comment on above: Performed By: #### 6 027669, [id number] ####[facility] [address] [place] [address] Medical Director: Herb Quiroz MD Utilization Review Noteon Utilization Review Note Verified admit t hru the portal #[id number] faxed 04/08/2021 [facility] APPROVAL FAX RECV'D APRROVED INPT DRG. WILL NOTIFY WHEN UPDATE DUE. TH Normal [facility] MG LEVELon 04-07-2021 Magnesium [Mass/Vol] 2.1 mg/dL Normal 1.6-2.6 [facility] Comment on above: Performed By: #### 1 24055 ####[facility] [address]dnttt54107 [place] [address] Medical Director: Herb Quiroz MD Nursing Clinical Noteon Nursing Clinical Note [id number] Report receiv ed from Ana Luisa BEEBE. 0849 Patient resting comfortably in bed, no pain [...] needs, bed alarm activated, safety maintained. Normal [facility] Nursing Clinical Note [id number]-Report receiv ed from Marley BEEBE. Pt in bed, resting with eyes closed. Bed alarm on. 0100-Pt in bed, Bed alarm on. Pt denies pain or discomfort. Pt alert to self and place confused to time. IV infusing without difficulty. 0700-Hourly rounding through out the night, Romero peres. Bed alarm on. No complaints noted Normal [facility] PLATELET ONLYon 04-07-2021 Platelet 160 X 1000 Normal 150-450 [facility] Comment on above: Order Comment: PLT c ount on Day 2 after initiation of Heparin or Lovenox, Notify Physician if PLT Count less than 100,000 Performed By: #### 9 752012, [id number] #### [facility] [address] [place] [address] Admitting Interviewer: Herb Quiroz MD POC Glucoseon 04-07-2021 Glucose [Mass/Vol] 152 mg/dL High 72-100 [facility] Comment on above: Performed By: #### 9 269647, 444572 #### [facility] [address] [place], [place] [address] Admitting Interviewer: Herb Quiroz MD Glucose [Mass/Vol] 144 mg/dL High 72-100 [facility] Comment on above: Performed By: #### 1 45107, 031271, 280772 #### [facility] [facility] [address] [place], [place] [id number] Admitting Interviewer: Herb Quiroz MD Glucose [Mass/Vol] 109 mg/dL High 72-100 [facility] Comment on above: Performed By: #### 1 [id number] #### [facility] [address] [place] [address] Admitting Interviewer: Herb Quiroz MD Progress Note-Physicianon Progress Note-Physician Patient: ALLAN LARA Age: 70 years Sex: Male : 1950 Associated Diagnoses: Tachycardia; Severe sepsis; Nausea; Multiple falls; Kidney neoplasm; Hyperlipemia; Hyperkalemia; HTN (hypertension); Diabetes mellitus; Dementia; Dehydration; COVID-19; Acute renal failure (ARF); Acute diarrhea Author: SANTI KAUFFMAN, [facility] INTER[facility] MEDIC[facility]/INFECTIOUS DISEASE Basic Information Admission information: [...] PEREZ 3.375 g 50 mL, IV Piggyback, [id number] SODIUM CHLORIDE SYR/VIAL 10ML 3 mL, IV Push, [id number] TAMSULOSIN 0.4MG CAP 0.4 mg 1 caps, ORAL, BID Continuous: (1) SODIUM CHLORIDE 0.9% 1,000 mL 1,000 mL, IV, 100 mL/hr PRN: (11) ACETAMINOPHEN 325 MG TAB 650 mg 2 tabs, ORAL, E1DOPGI ACETAMINOPHEN 325 MG TAB 650 mg 2 tabs, ORAL, [id number] ALBUTEROL 0.083% AEROSOL 2.5mg/3ML 2.5 mg 3 mL, Inhalation, W2IICOY RESPIRATORY DEXTROSE 50% 50ML SYRINGE/VIAL 12.5 g [...] 0.5 TABLET 2.5 mg 1 EA, ORAL, QHS/[id number] Physical Examination VS/Measurements Vital Signs (last 24 [...] . Impression and Plan Diagnosis Tachycardia - UQC04-BS R00.0, Medical. Severe sepsis - AHO74-LG R65.20, Medical. Nausea - PNED [id number], Medical. Multiple falls - PNED [id number] (more content not included)... Normal [facility] Progress Note-Physician Patient: ALLAN LARA Age: 70 years Sex: Male : 1950 Associated Diagnoses: None Author: ABRAHAM KAUFFMAN, [facility] Nephrology Impression and Plan This [...] PEREZ 3.375 g 50 mL, IV Piggyback, [id number] SODIUM CHLORIDE SYR/VIAL 10ML 3 mL, IV Push, [id number] TAMSULOSIN 0.4MG CAP 0.4 mg 1 caps, ORAL, BID Continuous: (1) SODIUM CHLORIDE 0.9% 1,000 mL 1,000 mL, IV, 100 mL/hr PRN: (11) ACETAMINOPHEN 325 MG TAB 650 mg 2 tabs, ORAL, H3FGHAY ACETAMINOPHEN 325 MG TAB 650 mg 2 tabs, ORAL, N1LNJDJ ALBUTEROL 0.083% AEROSOL 2.5mg/3ML 2.5 mg 3 mL, Inhalation, E9TTEZX RESPIRATORY DEXTROSE 50% 50ML SYRINGE/VIAL 12.5 g [...] 0.5 TABLET 2.5 mg 1 EA, ORAL, QHS/[id number] Allergies: Allergic Reactions (Selected) No Known Allergies Objective Vital Signs (last 24 hrs) Last Charted Heart Rate Peripheral 94 bpm (APR 07 07:20) Resp Rate 16 br/min (APR 07 07:20) SBP 128 mmHg (APR 07 08:19) DBP 76 mmHg (APR 07 08:19) GENERAL (more content not included)... Normal [facility] Progress Note-Physician Patient: ALLAN LARA Age: [...] PEREZ 3.375 g 50 mL, IV Piggyback, E8ISGOL SODIUM CHLORIDE SYR/VIAL 10ML 3 mL, IV Push, G15UKSSY TAMSULOSIN 0.4MG CAP 0.4 mg 1 caps, ORAL, BID Continuous: (1) SODIUM CHLORIDE 0.9% 1,000 mL 1,000 mL, IV, 100 mL/hr PRN: (11) ACETAMINOPHEN 325 MG TAB 650 mg 2 tabs, ORAL, U9WWLSJ ACETAMINOPHEN 325 MG TAB 650 mg 2 tabs, ORAL, L7WWKLP ALBUTEROL 0.083% AEROSOL 2.5mg/3ML 2.5 mg 3 mL, Inhalation, H1SDUKW RESPIRATORY DEXTROSE 50% 50ML SYRINGE/VIAL 12.5 g [...] 0.5 TABLET 2.5 mg 1 EA, ORAL, QHS/[id number] Physical Examination Vital Signs (last 24 hrs) [...] Integumentary: Warm. Neurologic: Alert. Psychiatric: Cooperative. Normal [facility] RENAL PNLon 04-07-2021 Calcium [Mass/Vol] 9.3 mg/dL Normal 8.5-10.5 [facility] Comment on above: Performed By: #### 9 [id number] #### [facility] [address] [place] [address] Admitting Interviewer: Herb Quiroz MD GFR AA >60 Normal [facility] Comment on above: Result Comment: Afri can Jordanian GFR Calc Medical judgement is necessary to [...] for drug dosing. Performed By: #### 9 [id number] #### [facility] [address] [place] [address] Admitting Interviewer: Herb Quiroz MD Glomerular Filtration Rate >60 Normal [facility] Comment on above: Result Comment: Non [...] for drug dosing. Performed By: #### 9 [id number] #### [facility] [address] [place] [address] Admitting Interviewer: Herb Quiroz MD Osmolality [Osmolality] 287 mosm/kg Normal 275-295 [facility] Comment on above: Performed By: #### 9 [id number] #### [facility] [address] [place] [address] 25655 Admitting Interviewer: Herb Quiroz MD Urea nitrogen/Creatinine [Mass ratio] 18.8 mg/mg Normal [facility] Comment on above: Performed By: #### 9 [id number] #### [facility] [address] [place] [address] Admitting Interviewer: Herb Quiroz MD Albumin [Mass/Vol] 2.3 g/dL Low 3.4-5.0 [facility] Comment on above: Performed By: #### 9 [id number] #### [facility] [address] [place] [address] Admitting Interviewer: Herb Quiroz MD Calcium [Mass/Vol] 7.9 mg/dL Low 8.5-10.5 [facility] Comment on above: Performed By: #### 9 [id number] #### [facility] [address] [place] [address] Admitting Interviewer: Herb Quiroz MD Chloride [Moles/Vol] 113 mmol/L High 100-109 [facility] Comment on above: Performed By: #### 9 [id number] #### [facility] [address] [place] [address]1587 Admitting Interviewer: Herb Quiroz MD CO2 [Moles/Vol] 23.5 mmol/L Normal 21.0-32.0 [facility] Comment on above: Performed By: #### 9 [id number], [id number] #### [facility] [address] [place] [address]69[address] Admitting Interviewer: Herb Quiroz MD Creatinine [Mass/Vol] 1.0 mg/dL Normal 0.7-1.3 [facility] Comment on above: Performed By: #### 9 [id number] #### [facility] [address] [place] [address] Admitting Interviewer: Herb Quiroz MD Glucose [Mass/Vol] 96 mg/dL Normal 72-100 [facility] Comment on above: Result Comment: Nori puncture should occur prior to sulfasalazine administration due to the potential for falsely depressed results. Venipuncture should occur prior to sulfapyridine administration due to the potential falsely elevated results. Baseline assay values before administration of sulfasalazine and sulfapyridine therapy would not be affected. Performed By: #### 9 [id number], [id number] #### [facility] [address] [place] [address] Admitting Interviewer: Herb Quiroz MD Phosphate [Mass/Vol] 2.3 mg/dL Low 2.5-4.9 [facility] Comment on above: Performed By: #### 9 [id number], [id number] #### [facility] [address] [place] [address]2722 Admitting Interviewer: Herb Quiroz MD Potassium [Moles/Vol] 3.8 mmol/L Normal 3.5-5.1 [facility] Comment on above: Performed By: #### 9 [id number], [id number] #### [facility] [address] [place] [address] Admitting Interviewer: Herb Quiroz MD Sodium [Moles/Vol] 143 mmol/L Normal 135-145 [facility] Comment on above: Performed By: #### 9 [id number], [id number] #### [facility] [address] [place] [address]377 Admitting Interviewer: Herb Quiroz MD Urea nitrogen [Mass/Vol] 19 mg/dL Normal 10-20 [facility] Comment on above: Performed By: #### 9 [id number], [id number] #### [facility] [address] [place] [address] 18120 Admitting Interviewer: Herb Quiroz MD C URINEon 04-06-2021 C URINE [facility] [address] [place] [id number] Name: ALLAN LARA : 1950 Admitting ANAIS GAMBOA DO Provider: Gender: Male [facility] [id number] Number: Location: 2DMO; D242; 01 Admit 04/05/2021 [...] Print Date/ 04/06/2021 08:06 EST Time: Normal [facility] Comment on above: Performed By: #### 1 [id number] ####[facility] [id number] [place] [address] Medical Director: Herb Quiroz MD COMPMETAon 04-06-2021 Albumin/Globulin [Mass ratio] 0.8 {ratio} [place] [facility] Comment on above: Performed By: #### 1 [id number] #### [facility] [address] [place] [address] Admitting Interviewer: Herb Quiroz MD GFR AA 57 [place] [facility] Comment on above: Result Comment: Afri can Jordanian GFR Calc Medical judgement is necessary to [...] for drug dosing. Performed By: #### 1 [id number] #### [facility] [address] [place] [address] 11547 Admitting Interviewer: Herb Quiroz MD Globulin (S) [Mass/Vol] 3.4 g/dL Normal [facility] Comment on above: Performed By: #### 1 [id number] #### [facility] [address] [place] [address] 31075 Admitting Interviewer: Herb Quiroz MD Glomerular Filtration Rate 47 mL/min/1.73m? Normal [facility] Comment on above: Result Comment: Non [...] for drug dosing. Performed By: #### 1 [id number] #### [facility] [address] [place] [address] Admitting Interviewer: Herb Quiroz MD Osmolality [Osmolality] 289 mosm/kg Normal 275-295 [facility] Comment on above: Performed By: #### 1 [id number] #### [facility] [address] [place] [address] 9[address]23 Admitting Interviewer: Herb Quiroz MD Urea nitrogen/Creatinine [Mass ratio] 24.5 mg/mg Normal [facility] Comment on above: Performed By: #### 1 [id number] #### [facility] [address] [place] [address] 25510 Admitting Interviewer: Herb Quiroz MD Albumin [Mass/Vol] 2.7 g/dL Low 3.4-5.0 [facility] Comment on above: Performed By: #### 1 [id number] #### [facility] [address] [place] [address] 05765 Admitting Interviewer: Herb Quiroz MD Alk Phos 53 unit/L Normal 45-117 [facility] Comment on above: Performed By: #### 1 [id number] #### [facility] [address] [place] [address] 13235 Admitting Interviewer: Herb Quiroz MD Bilirubin [Mass/Vol] 0.55 mg/dL Normal 0.20-1.00 [facility] Comment on above: Result Comment: Use of this assay is not recommended for patients undergoing treatment with eltrombopag due to the potential for falsely elevated results. Performed By: #### 1 [id number] #### [facility] [address] [place] [address] 07835 Admitting Interviewer: Herb Quiroz MD Calcium [Mass/Vol] 8.1 mg/dL Low 8.5-10.5 [facility] Comment on above: Performed By: #### 1 [id number] #### [facility] [address] [place] [address] 14634 Admitting Interviewer: Herb Quiroz MD Chloride [Moles/Vol] 112 mmol/L High 100-109 [facility] Comment on above: Performed By: #### 1 [id number] #### [facility] [address] [place] [address] 04057 Admitting Interviewer: Herb Quiroz MD CO2 [Moles/Vol] 23.0 mmol/L Normal 21.0-32.0 [facility] Comment on above: Performed By: #### 1 [id number] #### [facility] [address] [place] [address] 68450 Admitting Interviewer: Herb Quiroz MD Creatinine [Mass/Vol] 1.5 mg/dL High 0.7-1.3 [facility] Comment on above: Performed By: #### 1 [id number] #### [facility] [address] [place] [address] Admitting Interviewer: Herb Quiroz MD Glucose [Mass/Vol] 122 mg/dL High 72-100 [facility] Comment on above: Result Comment: Nori puncture should occur prior to sulfasalazine administration due to the potential for falsely depressed results. Venipuncture should occur prior to sulfapyridine administration due to the potential falsely elevated results. Baseline assay values before administration of sulfasalazine and sulfapyridine therapy would not be affected. Performed By: #### 1 [id number] #### [facility] [address] [place] [address]016 Admitting Interviewer: Herb Quiroz MD GOT 14 unit/L Low 15-37 [facility] Comment on above: Result Comment: Nori puncture should occur prior to sulfasalazine and/or sulfapyridine administration due to the potential for falsely depressed results. Baseline assay values before administration of sulfasalazine and sulfapyridine therapy would not be affected. Performed By: #### 1 [id number] #### [facility] [address] [place] [address]58 Admitting Interviewer: Herb Quiroz MD GPT 13 unit/L Low 16-61 [facility] Comment on above: Result Comment: Nori puncture should occur prior to sulfasalazine and/or sulfapyridine administration due to the potential for falsely depressed results. Baseline assay values before administration of sulfasalazine and sulfapyridine therapy would not be affected. Performed By: #### 1 [id number] #### [facility] [address] [place] [address] 23472 Admitting Interviewer: Herb Quiroz MD Potassium [Moles/Vol] 3.4 mmol/L Low 3.5-5.1 [facility] Comment on above: Performed By: #### 1 [id number] #### [facility] [address] [place] [address] 15293 Admitting Interviewer: Herb Quiroz MD Protein [Mass/Vol] 6.1 g/dL Normal 6.0-8.5 [facility] Comment on above: Performed By: #### 1 [id number] #### [facility] [address] [place] [address] Admitting Interviewer: Herb Quiroz MD Sodium [Moles/Vol] 140 mmol/L Normal 135-145 [facility] Comment on above: Performed By: #### 1 [id number] #### [facility] [address] [place] [address] Admitting Interviewer: Herb Quiroz MD Urea nitrogen [Mass/Vol] 36 mg/dL High 10-20 [facility] Comment on above: Performed By: #### 1 [id number] #### [facility] [address] [place] [address] 24468 Admitting Interviewer: Herb Quiroz MD CT ABD PELVIS WO [...] by: Adrianna St MD 04/06/2021 12:40 PM [employer] OFFBEARER Normal [facility] Comment on above: Order Comment: CT ab domen and pelvis without any contrast for evaluation of renal lesions. Result Comment: Tech nologist: KATHIA ALBRIGHT Dictated By: ADRIANNA ST MD Signed By: ADRIANNA ST MD Signed Out: 04/06/21 13:40:21 Consult Reporton 04-06-2021 Consult Report Patient: ALLAN LARA Age: 70 years Sex: Male : 1950 Associated Diagnoses: None Author: ABRAHAM KAUFFMAN, [facility] Nephrology Impression and Plan This [...] 650 mg = 2 tab(s), PRN, ORAL, [id number] albuterol-ipratropiu m 2.5 mg-0.5 mg/3 mL inhalation solution = DuoNeb 3 mL, PRN, Inhalation, U4NOFWU RESPIRATORY cloZAPine 100 mg oral tablet 100 [...] oral t (more content not included)... Normal [facility] Consult Report Patient: ALLAN LARA Age: 70 years Sex: Male : 1950 Associated Diagnoses: Nausea; Multiple falls; Kidney neoplasm; Hyperlipemia; HTN (hypertension); Diabetes mellitus; Dementia; COVID-19 Author: SANTI KAU[facility]MAN, [facility] Basic Information Time Seen: Date & Time [...] PEREZ 2.25 g 50 mL, IV Piggyback, [id number] SODIUM CHLORIDE SYR/VIAL 10ML 3 mL, IV Push, [id number] TAMSULOSIN 0.4MG CAP 0.4 mg 1 caps, ORAL, BID Continuous: (1) SODIUM CHLORIDE 0.9% 1,000 mL 1,000 mL, IV, 250 mL/hr PRN: (11) ACETAMINOPHEN 325 MG TAB 650 mg 2 tabs, ORAL, Q1HLEFY ACETAMINOPHEN 325 MG TAB 650 mg 2 tabs, ORAL, W7DUVBG ALBUTEROL 0.083% AEROSOL 2.5mg/3ML 2.5 mg 3 mL, Inhalation, E5BUYWU RESPIRATORY DEXTROSE 50% 50ML SYRINGE/VIAL 12.5 g [...] 0.5 TABLET 2.5 mg 1 EA, ORAL, QHS/[id number] Problem list: Active Problems (9) At risk [...] 98 bpm (more content not included)... Normal [facility] ED Physician Reporton 2021 ED Physician [...] falls and altered mental status. According to senior care report, patient does have some baseline confusion. [...] mg-125 mg oral tablet: 1 tabs, ORAL, A35RVCFZ, for 5 days, 10 tabs, 0 Refill(s) [...] tablet: 650 mg = 2 tab(s), ORAL, V0IQWKZ, PRN: for pain, 120 tab(s), 0 Refill(s) albuterol-ipratropiu m 2.5 mg-0.5 mg/3 mL inhalation solution = DuoNeb: 3 mL, Inhalation, M4MAGES RESPIRATORY, PRN: Wheezing or Dyspnea, 0 Refill(s) [...] motor obs (more content not included)... Normal [facility] HEMOon 04-06-2021 Erythrocyte distribution width (RBC) [Ratio] 14.0 % Normal 11.5-14.5 [facility] Comment on above: Performed By: #### 1 [id number] #### [facility] [address] [place] [address] Admitting Interviewer: Herb Quiroz MD Hematocrit (Bld) [Volume fraction] 41.2 % Normal 41.0-52.0 [facility] Comment on above: Performed By: #### 1 [id number] #### [facility] [address] [place] [address] 29330 Admitting Interviewer: Herb Quiroz MD Hemoglobin (Bld) [Mass/Vol] 13.8 g/dL Normal 13.5-17.5 [facility] Comment on above: Result Comment: Revi ewed Performed By: #### 1 [id number] #### [facility] [address] [place], [place] [address] Admitting Interviewer: Herb Quiroz MD Instr WBC 11.2 Normal [facility] Comment on above: Performed By: #### 1 [id number] #### [facility] [address] [place], [place] [address] Admitting Interviewer: Herb Quiroz MD MCH (RBC) [Entitic mass] 29.4 pg Normal 27.0-34.0 [facility] Comment on above: Performed By: #### 1 [id number] #### [facility] [address] [place], [place] [address] Admitting Interviewer: Herb Quiroz MD MCHC (RBC) [Mass/Vol] 33.5 g/dL Normal 32.0-37.0 [facility] Comment on above: Performed By: #### 1 [id number] #### [facility] [address] [place] [address] 57902 Admitting Interviewer: Herb Quiroz MD MCV (RBC) [Entitic vol] 87.9 fL Normal 80.0-100.[address] [facility] Comment on above: Performed By: #### 1 [id number] #### [facility] [address] [place] [address] 14960 Admitting Interviewer: Hreb Quiroz MD Nucleated RBC 0 /100WBC Normal [facility] Comment on above: Performed By: #### 1 [id number] #### [facility] [address] [place] [address] 65037 Admitting Interviewer: Herb Quiroz MD Platelet 163 x1000 Normal 150-450 [facility] Comment on above: Result Comment: Rech ecked Performed By: #### 1 [id number] #### [facility] [address] [place] [address] 93735 Admitting Interviewer: Herb Quiroz MD Platelet mean volume (Bld) [Entitic vol] 8.8 fL Normal 7.4-10.4 [facility] Comment on above: Performed By: #### 1 [id number] #### [facility] [address] [place] [address] 48995 Admitting Interviewer: Herb Quiroz MD RBC 4.69 x10 Low 4.70-6.10 [facility] Comment on above: Result Comment: Note : RBC morphology is normal unless otherwise stated. Evaluation performed only if differential is requested. Performed By: #### 1 [id number] #### [facility] [address] [place] [address] 63047 Admitting Interviewer: Herb Quiroz MD WBC 11.2 x10 High 4.5-11.0 [facility] Comment on above: Performed By: #### 1 [id number] #### [facility] [address] [place] [address] 71929 Admitting Interviewer: Herb Quiroz MD DIFF? Yes Normal [facility] Comment on above: Performed By: #### 1 [id number] #### [facility] [address] [place] [address] 70150 Admitting Interviewer: Herb Quiroz MD MAN DIFFon 04-06-[address] 0.90 x1000 High 0.00-0.70 [facility] Comment on above: Performed By: #### 1 [id number] #### [facility] [address] [place] [address] 15178 Admitting Interviewer: Herb Quiroz MD Absolute Lymph Ct 0.45 x1000 Low 1.20-4.80 [facility] Comment on above: Performed By: #### 1 [id number] #### [facility] [address] [place] [address] 05413 Admitting Interviewer: Herb Quiroz MD Absolute [address] 0.34 x1000 Normal 0.10-1.00 [facility] Comment on above: Performed By: #### 1 [id number] #### [facility] [address] [place] [address] 61482 Admitting Interviewer: Herb Quiroz MD Absolute Neutrophil Ct 10.42 x1000 High 1.40-8.80 [facility] Comment on above: Performed By: #### 1 [id number] #### [facility] [address] [place] [address] 00882 Admitting Interviewer: Herb Quiroz MD Absolute Seg Ct 9.52 x1000 High 1.40-8.80 [facility] Comment on above: Performed By: #### 1 [id number] #### [facility] [address] [place] [address] 18761 Admitting Interviewer: Herb Quiroz MD Band form neutrophils/100 WBC (Bld) 8 % Normal [facility] Comment on above: Performed By: #### 1 [id number] #### [facility] [address] [place] [address] 85934 Admitting Interviewer: Herb Quiroz MD Lymphocytes/100 WBC (Bld) 4 % Normal [facility] Comment on above: Performed By: #### 1 [id number] #### [facility] [address] [place] [address] 98984 Admitting Interviewer: Herb Quiroz MD Monocytes/100 WBC (Bld) 3 % Normal [facility] Comment on above: Performed By: #### 1 [id number] #### [facility] [address] [place] [address] Admitting Interviewer: Herb Quiroz MD Segmented neutrophils/100 WBC (Bld) 85 % Normal [facility] Comment on above: Performed By: #### 1 [id number] #### [facility] [address] [place] [address] Admitting Interviewer: Herb Quiroz MD Nursing Clinical Noteon Nursing Clinical Note Received report fr odilia Denton RN. Patient resting in bed, eyes closed. resp even and unlabored. ivf infusing without difficulty. jasso in place draining clear yellow urine. safety maintained. Normal [facility] Nursing Clinical Note 0710 Report receiv [...] All bedding changed, now gown applied. Normal [facility] Nursing Clinical Note 2135-Patient resti ng [...] well. 550ml clear yellow urine noted. Normal [facility] PCTon 04-06-2021 Procalcitonin 0.63 ng/mL Normal [facility] Comment on above: Result Comment: INTE [...] or septic shock. Performed By: #### 1 [id number] #### [facility] [address] [place] [address] Admitting Interviewer: Herb Quiroz MD POC Glucoseon 04-06-2021 Glucose [Mass/Vol] 123 mg/dL High 72-100 [facility] Comment on above: Performed By: #### 1 [id number] ####[facility] [id number] [place] [address] Medical Director: Herb Quiroz MD Glucose [Mass/Vol] 110 mg/dL High 72-100 [facility] Comment on above: Performed By: #### 9 [id number] #### [facility] [address] [place] [address] 91109 Admitting Interviewer: Herb Quiroz MD Glucose [Mass/Vol] 117 mg/dL High 72-100 [facility] Comment on above: Performed By: #### 9 [id number], [id number] #### [facility] [address] [place] [address] 56500 Admitting Interviewer: Herb Quiroz MD Glucose [Mass/Vol] 128 mg/dL [facility] 7[address] [facility] Comment on above: Performed By: #### 1 [id number] #### [facility] [address] [place] [address] 20139 Admitting Interviewer: Herb Quiroz MD U CREAT RANDOMon 04-06-2021 Creatinine Random, U 182.0 mg/dL Normal [facility] Comment on above: Performed By: #### 1 [id number] #### [facility] [address] [place] [address] 68661 Admitting Interviewer: Herb Quiroz MD Creatinine Random, U 180.0 mg/dL Normal [facility] Comment on above: Performed By: #### 1 [id number], [id number], [id number] #### [facility] [address] [place] [address] 48501 Admitting Interviewer: Herb Quiroz MD U NA RANDOMon 04-06-2021 Sodium [Moles/Vol] 21 mmol/L Normal [facility] Comment on above: Performed By: #### 1 [id number] #### [facility] [address] [place] [address] 78494 Admitting Interviewer: Hreb Quiroz MD Sodium [Moles/Vol] 20 mmol/L Normal [facility] Comment on above: Performed By: #### 1 , [id number], [id number] #### [facility] [address] [place] [address] 81767 Admitting Interviewer: Herb Quiroz MD U OSMOon 04-06-2021 Osmolality, U 929 mOsm/kg Normal 390-1090 [facility] Comment on above: Performed By: #### 1 , , [id number] #### [facility] [address] [place] [address] 60035 Admitting Interviewer: Herb Quiroz MD Specific gravity (U) [Rel density] 1.029 Normal [facility] Comment on above: Performed By: #### 1 , [id number], [id number] #### [facility] [address] [place] [address] 17925 Admitting Interviewer: Herb Quiroz MD U UREA RANDOMon 04-06-2021 Random Urea, U 1800 mg/dL Normal [facility] Comment on above: Performed By: #### 1 [id number] #### [facility] [address] [place] [address] 64873 Admitting Interviewer: Herb Quiroz MD UAon 04-06-2021 Appearance, U Clear Normal [facility] Comment on above: Performed By: #### 1 [id number] #### [facility] [address] [place] [address] 87183 Admitting Interviewer: Herb Quiroz MD Bilirubin, U Negative Normal Negative [facility] Comment on above: Performed By: #### 1 [id number] #### [facility] [address] [place] [address] 20948 Admitting Interviewer: Herb Quiroz MD Blood, U Small Abnormal Negative [facility] Comment on above: Performed By: #### 1 [id number] #### [facility] [address] [place] [address] 80165 Admitting Interviewer: Hebr Quiroz MD Color, U Yellow Normal [facility] Comment on above: Performed By: #### 1 [id number] #### [facility] [address] [place] [address] 42025 Admitting Interviewer: Herb Quiroz MD Glucose Qual, U Negative Normal Negative [facility] Comment on above: Performed By: #### 1 [id number] #### [facility] [address] [place] [address] 44926 Admitting Interviewer: Herb Quiroz MD Ketones, U Negative Normal Negative [facility] Comment on above: Performed By: #### 1 84873 #### [facility] [address] [place] [address] 62015 Admitting Interviewer: Herb Quiroz MD Leukocyte Esterase, U Negative Normal Negative [facility] Comment on above: Performed By: #### 1 [id number] #### [facility] [address] [place] [address] 24891 Admitting Interviewer: Herb Quiroz MD Mucous, U Occasional Normal [facility] Comment on above: Performed By: #### 1 [id number] #### [facility] [address] [place] [address] 76468 Admitting Interviewer: Herb Quiroz MD Nitrite, U Negative Normal Negative [facility] Comment on above: Performed By: #### 1 [id number] #### [facility] [address] [place] [address] 19504 Admitting Interviewer: Herb Quiroz MD pH, U 5.0 Normal 4.5-8.0 [facility] Comment on above: Performed By: #### 1 93276 #### [facility] [address] [place] [address] 83682 Admitting Interviewer: Herb Quiroz MD Protein, U Negative Normal Negative [facility] Comment on above: Performed By: #### 1 [id number] #### [facility] [address] [place], [place] [id number] Admitting Interviewer: Herb Quiroz MD RBC/HPF, U 1 #/HPF Normal 0-3 [facility] Comment on above: Performed By: #### 1 81361 #### [facility] [address] [place] [address] 89307 Admitting Interviewer: Herb Quiroz MD Specific [place], U 1.028 Normal 1.001-1.035 [facility] Comment on above: Performed By: #### 1 64237 #### [facility] [address] [place] [address] 48987 Admitting Interviewer: Herb Quiroz MD Squamous Epithelial Cells, U <1 Normal [facility] Comment on above: Performed By: #### 1 38801 #### [facility] [address] [place] [address] 78146 Admitting Interviewer: Herb Quiroz MD U MICRO Indicated Normal [facility] Comment on above: Performed By: #### 1 52498 #### [facility] [address] [place] [address] 64140 Admitting Interviewer: Herb Quiroz MD Urobilinogen Qual, U <2.0 mg/dl Normal <2.0 mg/dl [facility] Comment on above: Result Comment: EU/d l and mg/dl are equivalent units. Performed By: #### 1 12857 #### [facility] [address] [place] [address] 84989 Admitting Interviewer: Herb Quiroz MD WBC/HPF, U 1 #/HPF Normal 0-5 [facility] Comment on above: Performed By: #### 1 80626 #### [facility] [address] [place] [address] 34966 Admitting Interviewer: Herb Quiroz MD US KIDNEY ECHOon 04-06-2021 US KIDNEY ECHO Renal ultrasound 04/05/2021 2:25 PM LUMBER CHAIN OFFBEARER History: RENAL INSUFFICIENCY Tech notes: WHAT SYMPTOMS [...] by: Cedrick Vale MD 04/06/2021 9:29 AM LUMBER CHAIN OFFBEARER Technologist: BB Dictated By: CEDRICK VALE MD Signed By: CEDRICK VALE MD Signed Out: 04/06/21 10:29:47 Normal [facility] Andrea 04-06-2021 Date Last Dose See MAR Summary Normal [facility] Comment on above: Result Comment: VERI FIED by Discern Expert. Performed By: #### 1 [id number] #### [facility] [address] [place] [address] 92205 Admitting Interviewer: Herb Quiroz MD Time Last Dose See MAR Summary Normal [facility] Comment on above: Result Comment: VERI FIED by Discern Expert. Performed By: #### 1 69058 #### [facility] [address] [place] [address] 68665 Admitting Interviewer: Herb Quiroz MD Vancomycin Random 5.40 ug/ml Normal 5.00-40.00 [facility] Comment on above: Performed By: #### 1 57713 #### [facility] [address] [address] Admitting Interviewer: Herb Quiroz MD APTTon 04-05-2021 aPTT Coag (Bld) [Time] 29.1 s Normal 26.0-39.0 So [facility] Comment on above: Performed By: #### 1 93444 #### [facility] [address] [place] [address] 67603 Admitting Interviewer: Herb Quiroz MD AUTO DIFFon 04-05-2021 Baso Count Normal 0.00-0.20 [facility] Comment on above: Performed By: #### 1 [id number] #### [facility] [address] [place] [address] 64798 Admitting Interviewer: Herb Quiroz MD Basos % Normal [facility] Comment on above: Performed By: #### 1 [id number] #### [facility] [address] [place] [address] 59591 Admitting Interviewer: Herb Quiroz MD Eos Count Normal 0.00-0.50 [facility] Comment on above: Performed By: #### 1 [id number] #### [facility] [address] [place] [address] 76230 Admitting Interviewer: Herb Quiroz MD Eosin % Normal [facility] Comment on above: Performed By: #### 1 [id number] #### [facility] [address] [place] [address] 24602 Admitting Interviewer: Herb Quiroz MD Lymph % Normal [facility] Comment on above: Performed By: #### 1 [id number] #### [facility] [address] [place] [address] 61031 Admitting Interviewer: Herb Quiroz MD Lymph Count Normal 1.20-4.80 [facility] Comment on above: Performed By: #### 1 [id number] #### [facility] [address] [place] [address] 19026 Admitting Interviewer: Herb Quiroz MD [place] % Normal [facility] Comment on above: Performed By: #### 1 [id number] #### [facility] [address] [place] [address] 18783 Admitting Interviewer: Herb Quiroz MD [place] Count Normal 0.10-1.00 [facility] Comment on above: Performed By: #### 1 [id number] #### [facility] [address] [place] [address] 64203 Admitting Interviewer: Herb Quiroz MD Neutrophil % Normal [facility] Comment on above: Performed By: #### 1 [id number] #### [facility] [address] [place] [address] 78254 Admitting Interviewer: Herb Quiroz MD Neutrophil Count (ANC) Normal 1.40-8.80 So [facility] Comment on above: Performed By: #### 1 [id number] #### [facility] [address] [place] [address] 28001 Admitting Interviewer: Herb Quiroz MD COMPMETAon 04-05-2021 Albumin/Globulin [Mass ratio] 0.9 {ratio} Normal [facility] Comment on above: Performed By: #### 1 77807 #### [facility] [address] [place] [address] 20316 Admitting Interviewer: Herb Quiroz MD GFR AA 34 Normal [facility] Comment on above: Result Comment: Afri can Jordanian GFR Calc Medical judgement is necessary to [...] for drug dosing. Performed By: #### 1 12750 #### [facility] [address] [place] [address] 06386 Admitting Interviewer: Herb Quiroz MD Globulin (S) [Mass/Vol] 4.3 g/dL Normal [facility] Comment on above: Performed By: #### 1 25024 #### [facility] [address] [place] [address] 14582 Admitting Interviewer: Herb Quiroz MD Glomerular Filtration Rate 28 mL/min/1.73m? [place] [facility] Comment on above: Result Comment: Non [...] for drug dosing. Performed By: #### 1 16578 #### [facility] [address] [place] [address] 95556 Admitting Interviewer: Herb Quiroz MD Osmolality [Osmolality] 284 mosm/kg Normal 275-295 [facility] Comment on above: Performed By: #### 1 [id number] #### [facility] [address] [place] [address] 57579 Admitting Interviewer: Herb Quiroz MD Urea nitrogen/Creatinine [Mass ratio] 14.0 mg/mg Normal [facility] Comment on above: Performed By: #### 1 [id number] #### [facility] [address] [place] [address] 99457 Admitting Interviewer: Herb Quiroz MD Albumin [Mass/Vol] 3.7 g/dL Normal 3.4-5.0 [facility] Comment on above: Performed By: #### 1 41315 #### [facility] [address] [place] [address] 55774 Admitting Interviewer: Herb Quiroz MD Alk Phos 84 unit/L Normal 45-117 [facility] Comment on above: Performed By: #### 1 89669 #### [facility] [address] [place] [address] 25554 Admitting Interviewer: Herb Quiroz MD Bilirubin [Mass/Vol] 0.78 mg/dL Normal 0.20-1.00 [facility] Comment on above: Result Comment: Use of this assay is not recommended for patients undergoing treatment with eltrombopag due to the potential for falsely elevated results. Performed By: #### 1 58830 #### [facility] [address] [place] [address] 40442 Admitting Interviewer: Herb Quiroz MD Calcium [Mass/Vol] 9.2 mg/dL Normal 8.5-10.5 [facility] Comment on above: Performed By: #### 1 [id number] #### [facility] [address] [place] [address] 90166 Admitting Interviewer: Herb Quiroz MD Chloride [Moles/Vol] 105 mmol/L Normal 100-109 [facility] Comment on above: Performed By: #### 1 87807 #### [facility] [address] [place] [address] 57053 Admitting Interviewer: Herb Quiroz MD CO2 [Moles/Vol] 23.0 mmol/L Normal 21.0-32.0 [facility] Comment on above: Performed By: #### 1 05777 #### [facility] [address] [place] [address] 85526 Admitting Interviewer: Herb Quiroz MD Creatinine [Mass/Vol] 2.3 mg/dL High 0.7-1.3 [facility] Comment on above: Performed By: #### 1 46214 #### [facility] [address] [place] [address] 87879 Admitting Interviewer: Herb Quiroz MD Glucose [Mass/Vol] 325 mg/dL High 72-100 [facility] Comment on above: Result Comment: Nori puncture should occur prior to sulfasalazine administration due to the potential for falsely depressed results. Venipuncture should occur prior to sulfapyridine administration due to the potential falsely elevated results. Baseline assay values before administration of sulfasalazine and sulfapyridine therapy would not be affected. Performed By: #### 1 31510 #### [facility] [address] [address] Admitting Interviewer: Herb Quiroz MD GOT 11 unit/L Low 15-37 [facility] Comment on above: Result Comment: Nori puncture should occur prior to sulfasalazine and/or sulfapyridine administration due to the potential for falsely depressed results. Baseline assay values before administration of sulfasalazine and sulfapyridine therapy would not be affected. Performed By: #### 1 16036 #### [facility] [address] [place] [address] 01864 Admitting Interviewer: Herb Quiroz MD GPT 19 unit/L Normal 16-61 [facility] Comment on above: Result Comment: Nori puncture should occur prior to sulfasalazine and/or sulfapyridine administration due to the potential for falsely depressed results. Baseline assay values before administration of sulfasalazine and sulfapyridine therapy would not be affected. Performed By: #### 1 37127 #### [facility] [address] [place] [address] 64998 Admitting Interviewer: Herb Quiroz MD Potassium [Moles/Vol] 6.3 mmol/L Critically abnormal 3.5-5.1 [facility] Comment on above: Result Comment: Crit ical Result(s) called at: 04:27:57 on 04/05/2021 by: Lloyd Ferrari rechecked, RBR to: GAVIN in [facility] Performed By: #### 1 [id number] #### [facility] [address] [place] [address] 10369 Admitting Interviewer: Herb Quiroz MD Protein [Mass/Vol] 8.0 g/dL Normal 6.0-8.5 [facility] Comment on above: Performed By: #### 1 [id number] #### [facility] [address] [place] [address] 10817 Admitting Interviewer: eHrb Quiroz MD Sodium [Moles/Vol] 132 mmol/L Low 135-145 [facility] Comment on above: Performed By: #### 1 03399 #### [facility] [address] [place] [address] 45354 Admitting Interviewer: Herb Quiroz MD Urea nitrogen [Mass/Vol] 32 mg/dL High 10-20 [facility] Comment on above: Performed By: #### 1 02753 #### [facility] [address] [place] [address] 19731 Admitting Interviewer: Herb Quiroz MD COVID-19 Molecular SWEDon SARS-CoV-2 (COVID-19) RNA AARTI+probe Ql (Unsp spec) Negative Normal [facility] Comment on above: Result Comment: This [...] Use Authorization and has been verified by [facility]. This test is only [...] sooner. 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: [id number] Technologist: TMP Dictated By: MORRIS LEVINE MD Signed By: MORRIS LEVINE MD Signed Out: 04/05/21 04:38:[address] [facility] [address] CERVICAL SPINE WO CONTRAS Ton [...] by: Morris Levine MD 04/05/2021 3:38 AM LUMBER CHAIN OFFBEARER Workstation: [id number] Technologist: TMP Dictated By: MORRIS LEVINE MD Signed By: MORRIS LEVINE MD Signed Out: 04/05/21 04:38:02 Normal [facility] ED Discharge Educationon ED Discharge Education Normal So [facility] ED Patient Summaryon 022 ED Patient Summary [facility] Emergency Department Discharge Instructions [address] [place] [address] \.br\(Patien t Copy)\.br\ \.br\Name: ALLAN LARA : 1950 \.br\Allergies: No Known Allergies\.br\Diagno sis: Diagnoses This Visit\.br\ Multiple falls ([id number])\. br\ Nausea ([id number] aeg)\.br\\.br\\.br\ \.br\ Visit Date: 04/05/2021 03:15:28 \.br\ Current Date Time: 04/05/2021 14:39:00 \.br\Address: [address] [place] [address] \.br\ \.br\ \.br\Primary Care Provider: \.br\Name: CASE KAUFFMAN, JESSI H\.br\ \.br\ \.br\Emergency Department Care Providers: \.br\ Primary Physician: ROLANDO TUCKER MD \.br\ \.br\ \.br\\.br\Thank you for choosing [facility] for your emergency care. You are very important to us. Our goal is to demonstrate our high quality medical care, and provide you with a very good patient experience.\.br\\.br \You may receive a survey about our service. Please take the time to complete the survey and return it so we can continue to enhance our service.\.br\\.br\Th ank you again for allowing the [facility] Emergency Department to care for your medical needs. If you have questions about your care or follow up information please contact us at [phone].\.br\\. br\ Follow-Up Instructions\.br\___ \.br\ALLAN LARA has been given these follow-up instructions:\.br\\. br\Patient Education Materials\.br\ __\.br\ALLAN LARA has been given the following patient education materials:\.br\\.br\ \.br\BEFORE YOU LEAVE\.br\\.br\Set up your [facility] [employer] account!\.br\ \.br\[employer] is a secure, online health management tool that connects you to portions of your hospital-based electronic medical record, allowing you to see test results, manage appointments, access discharge care instructions and much more.\.br\ \.br\You can access [employer] from a computer, tablet or smartphone. Enrollment/registrat ion is required. If you do not have a [employer] account, please provide us with an email address before you leave so that we may set up an account for you.\.br\ \.br\New to [employer]!\.br\You may now securely connect some of the health management apps you use (e.g., fitness trackers, dietary trackers, etc.) to your health record in [facility] import[employer]. This new feature provides expanded access to your health and wellness data, which will help you and your care team make informed decisions about your health care. \.br\If you are interested in using a health management luz not currently connected to [employer], contact a Plaster Helper at [phone] or [email or web address]. We will determine if the luz meets the technical requirements to connect to [facility] [employer] and assure the security of your private health information.\.br\ \.br\ Medication Information\.br\____ ____\.br\ALLAN LARA has been given the following medication information:\.br\Onl y Take The Medicines On This List. \.br\Keep This List and Bring It To Your Next Appointment. \.br\Medicines To Take At Home: \.br\ Medicine Name\.br\ (Generic Name) Amount to Take How to Take it How Often to Take it Additional Instructions Next Dose Due \.br\ acetaminophen 325 mg oral tablet\.br\(acetamin ophen) 650 mg By Mouth EVERY SIX HOURS Take as needed for pain\.br\\.br\\.br\\ .br\\.br\\.br\ \.br\ albuterol-ipratropiu m 2.5 mg-0.5 mg/3 mL inhalation solution = DuoNeb *\.br\(albuterol-ipr atropium) 3 mL Inhalation EVERY FOUR HOURS RESPIRATORY Take as needed for Wheezing or Dyspnea\.br\\.br\\.b r\\.br\\.br\\.br\ \.br\ Norvasc 10 mg oral tablet\.br\(amlodipi ne) 10 mg By Mouth AT BEDTIME \.br\ Lipitor 10 mg oral tablet\.br\(atorvast atin) 10 mg By Mouth AT BEDTIME \.br\ Vitamin D3 5000 intl units (125 mcg) oral tablet\.br\(cholecal ciferol) 125 mcg By Mouth DAILY \.br\ cloZAPine 100 mg oral tablet\.br\(clozapin e) 100 mg By Mouth DAILY AM DOSE\.br\\.br\\.br\\ .br\ \.br\ cloZAPine 200 mg oral tablet\.br\(clozapin e) 200 mg By Mouth AT BEDTIME \.br\ Colace 100 mg oral capsule\.br\(docusat e) 100 mg By Mouth TWICE A DAY \.br\ Synthroid 50 mcg (0.05 mg) oral tablet\.br\(levothyr oxine) 50 mcg By Mouth DAILY \.br\ Flomax 0.4 mg oral capsule\.br\(tamsulo sin) 0.4 mg By Mouth TWICE A DAY \.br\\.br\Understand ing your home medicine is important to [...] with you (more content not included)... Normal [facility] ED Pre-Arrival Formon 2021 ED Pre-Arrival Form Pre-Arrival Summary Name: physicians, Current Date: 04/05/2021 03:15:50 EST Gender: Date of : Age: Pre-Arrival Type: EMS ETA: 04/05/2021 03:39:00 EST Primary Care Physician: Presenting Problem: Pre-Arrival User: Kailey Jordan Referring Source: Location: 1 [facility] Emergency Department [address] [place], [place] [id number] ____ Notes: Vital Signs: Doctor Call Back: DNR Status: Miscellaneous Issues: Normal [facility] ED Progress Noteon 2 ED Progress Note Pt presented to the ED via [facility] from [facility] with c/o multiple falls, per the facility. [...] inserted, labs drawn, pt placed on the sewer bricklayer. 0630 Dr. Gamboa at the bedside to answer pt questions and discuss test results. Pt to be admitted to the hospital. 0715 Report to Angella BEEBE THE PATIENT IS ON 2 LITERS NASAL CANNULA. HE IS REORIENTED TO TIME. THE PATIENT DENIES COMPLAINTS. TO [facility] FLOOR VIA CLINICAL TRANSPORT. S/P REPORT CALLED. THE PATIENT DENIES COMPLAINTS. HE IS STABLE ON 2 LITERS NASAL CANNULA Normal [facility] HEMOon 04-05-2021 Nucleated RBC Normal [facility] Comment on above: Performed By: #### 1 [id number] #### [facility] [address] [place] [address] Admitting Interviewer: Herb Quiroz MD DIFF? Yes Normal [facility] Comment on above: Performed By: #### 1 [id number] #### [facility] [address] [place] [address] Admitting Interviewer: Herb Quiroz MD Dx Actions See Notes Abnormal [facility] Comment on above: Result Comment: Scan Slide. Perform manual diff if needed. SNV Performed By: #### 1 [id number] #### [facility] [address] [place], [place] [id number] Admitting Interviewer: Herb Quiroz MD Erythrocyte distribution width (RBC) [Ratio] 13.9 % Normal 11.5-14.5 [facility] Comment on above: Performed By: #### 1 [id number] #### [facility] [address] [place] [address] 8[address]66 Admitting Interviewer: Herb Quiroz MD Hematocrit (Bld) [Volume fraction] 49.8 % Normal 41.0-52.0 [facility] Comment on above: Performed By: #### 1 [id number] #### [facility] [address] [place] [address] 22982 Admitting Interviewer: Herb Quiroz MD Hemoglobin (Bld) [Mass/Vol] 16.7 g/dL Normal 13.5-17.5 [facility] Comment on above: Performed By: #### 1 [id number] #### [facility] [address] [place] [address] Admitting Interviewer: Herb Quiroz MD Instr WBC 25.6 Normal [facility] Comment on above: Performed By: #### 1 [id number] #### [facility] [address] [address] Admitting Interviewer: Herb Quiroz MD MCH (RBC) [Entitic mass] 29.7 pg Normal 27.0-34.0 [facility] Comment on above: Performed By: #### 1 [id number] #### [facility] [address] [place] [address] 70853 Admitting Interviewer: Herb Quiroz MD MCHC (RBC) [Mass/Vol] 33.5 g/dL Normal 32.0-37.0 [facility] Comment on above: Performed By: #### 1 [id number] #### [facility] [address] [place] [address]35 Admitting Interviewer: Herb Quiroz MD MCV (RBC) [Entitic vol] 88.7 fL Normal 80.0-100.0 [facility] Comment on above: Performed By: #### 1 [id number] #### [facility] [address] [place] [address] Admitting Interviewer: Herb Quiroz MD MDW 22.50 High 13.98-20.00 [facility] Comment on above: Result Comment: MDW [...] risk of Sepsis. Performed By: #### 1 [id number] #### [facility] [address] [place] [address] 51910 Admitting Interviewer: Herb Quiroz MD Platelet 259 x1000 Normal 150-450 [facility] Comment on above: Performed By: #### 1 [id number] #### [facility] [address] [place] [address] 84772 Admitting Interviewer: Herb Quiroz MD Platelet mean volume (Bld) [Entitic vol] 8.9 fL Normal 7.4-10.4 [facility] Comment on above: Performed By: #### 1 [id number] #### [facility] [address] [place] [address] Admitting Interviewer: Herb Quiroz MD RBC 5.62 x10 Normal 4.70-6.10 [facility] Comment on above: Result Comment: Note : RBC morphology is normal unless otherwise stated. Evaluation performed only if differential is requested. Performed By: #### 1 [id number] #### [facility] [address] [place] [address] 6[address]19 Admitting Interviewer: Herb Quiroz MD WBC 25.6 x10 High 4.5-11.0 [facility] Comment on above: Performed By: #### 1 [id number] #### [facility] [address] [place] [address] 56575 Admitting Interviewer: Herb Quiroz MD K LEVELon 04-05-2021 Potassium [Moles/Vol] 4.0 mmol/L Normal 3.5-5.1 [facility] Comment on above: Performed By: #### 9 [id number] #### [facility] [address] [place] [address] 62464 Admitting Interviewer: Herb Quiroz MD LACTATEon 04-05-2021 Lactate [Moles/Vol] 3.1 mmol/L High 0.4-2.0 [facility] Comment on above: Performed By: #### 1 [id number] #### [facility] [address] [place] [address] 6[address]19 Admitting Interviewer: Herb Quiroz MD Lactate [Moles/Vol] 3.6 mmol/L High 0.4-2.0 [facility] Comment on above: Performed By: #### 1 [id number] ####[facility] [address] [place] [address] [id number]) [phone] Director: Herb Quiroz MD MAN DIFFon 04-05-[address] 2.82 x1000 High 0.00-0.70 [facility] Comment on above: Performed By: #### 1 [id number] #### [facility] [address] [place] [address] 28473 Admitting Interviewer: Herb Quiroz MD Absolute Lymph Ct 0.26 x1000 Low 1.20-4.80 [facility] Comment on above: Performed By: #### 1 [id number] #### [facility] [address] [place] [address] 64188 Admitting Interviewer: Herb Quiroz MD Absolute [address] 0.77 x1000 Normal 0.10-1.00 [facility] Comment on above: Performed By: #### 1 [id number] #### [facility] [address] [place] [address] 93618 Admitting Interviewer: Herb Quiroz MD Absolute Neutrophil Ct 24.58 x1000 High 1.40-8.80 [facility] Comment on above: Performed By: #### 1 [id number] #### [facility] [address] [place] [address] 85991 Admitting Interviewer: Herb Quiroz MD Absolute Seg Ct 21.76 x1000 High 1.40-8.80 [facility] Comment on above: Performed By: #### 1 [id number] #### [facility] [address] [place] [address] 15370 Admitting Interviewer: Herb Quiroz MD Band form neutrophils/100 WBC (Bld) 11 % Normal [facility] Comment on above: Performed By: #### 1 [id number] #### [facility] [address] [place] [address] Admitting Interviewer: Herb Quiroz MD Left Shift Present Abnormal [facility] Comment on above: Performed By: #### 1 [id number] #### [facility] [address] [place] [address] 10594 Admitting Interviewer: Herb Quiroz MD Lymphocytes/100 WBC (Bld) 1 % Normal [facility] Comment on above: Performed By: #### 1 [id number] #### [facility] [address] [place] [address] 58386 Admitting Interviewer: Herb Quiroz MD Monocytes/100 WBC (Bld) 3 % Normal [facility] Comment on above: Performed By: #### 1 [id number] #### [facility] [address] [place] [address] 35928 Admitting Interviewer: Herb Quiroz MD Segmented neutrophils/100 WBC (Bld) 85 % Normal [facility] Comment on above: Performed By: #### 1 [id number] #### [facility] [address] [place] [address] 94935 Admitting Interviewer: Herb Quiroz MD Nursing Clinical Noteon 03-08 Nursing Clinical Note Pt arrived from ED , pivot from cart to bed, unsteady, alarm on Pt oriented at this time but forgetful, discussed poc Dr. Tucker paged [phone]- Spoke with Dr. Tucker, see orders. Dr. Tucker in to see pt [facility] Normal [facility] PCTon 04-05-2021 Procalcitonin 1.67 ng/mL Normal [facility] Comment on above: Result Comment: INTE [...] or septic shock. Performed By: #### 9 [id number], [id number] #### [facility] [address] [place] [address] Admitting Interviewer: Herb Quiroz MD POC Glucoseon 04-05-2021 Glucose [Mass/Vol] 163 mg/dL High 72-100 [facility] Comment on above: Performed By: #### 1 [id number], [id number], [id number] #### [facility] [address] [place] [address] Admitting Interviewer: Herb Quiroz MD Glucose [Mass/Vol] 151 mg/dL High 72-100 [facility] Comment on above: Performed By: #### 9 [id number], [id number] #### [facility] [address] [place] [address] 35702 Admitting Interviewer: Herb Quiroz MD Glucose [Mass/Vol] 144 mg/dL High 72-100 [facility] Comment on above: Performed By: #### 1 [id number] #### [facility] [address] [place] [address] 97819 Admitting Interviewer: Herb Quiroz MD PSAon 04-05-2021 Prostatic Specific Antigen 1.1 ng/mL Normal 0.0-4.0 [facility] Comment on above: Performed By: #### 1 [id number] #### [facility] [address] [place] [address] 69282 Admitting Interviewer: Herb Quiroz MD PT INRon 04-05-2021 INR Coag (PPP) [Relative time] 1.0 {INR} Normal [facility] Comment on above: Result Comment: INR Reference Range: Normal reference range for INR on patients not on anticoagulant therapy: 0.9-1.1 General therapeutic range for patients on anticoagulant therapy: 2.0-3.5 Performed By: #### 1 [id number] #### [facility] [address] [place] [address] 80688 Admitting Interviewer: Herb Quiroz MD Protime Patient 11.9 seconds Normal 9.8-13.4 [facility] Comment on above: Performed By: #### 1 [id number] #### [facility] [address] [place] [address] 52349 Admitting Interviewer: Herb Quiroz MD Progress Note-Physicianon Progress Note-Physician [...] 2.3 mg/dL High WBC: 25.6 x10 Normal [facility] TROPONIN HS 0HRon 04-05-2021 Troponin HS 0 Hr 8 pg/mL Normal [facility] Comment on above: Performed By: #### 1 [id number] #### [facility] [address] [place] [address] Admitting Interviewer: Herb Quiroz MD TROPONIN HS 2HRon 04-05-2021 Delta Troponin 2 Hr 1 pg/mL Normal 0-14 [facility] Comment on above: Result Comment: The term acute myocardial infarction should be used when there is acute myocardial injury with clinical evidence of acute myocardial ischemia and the rise or fall of serial Troponin HS values (delta troponin) greater than or equal to 15 pg/mL with at least one Troponin HS value above the 99th percentile reference range Performed By: #### C [id number] ####[facility] [address] [place] [address] Medical Director: Herb Quiroz MD Troponin HS 2 Hr 7 pg/mL Normal [facility] Comment on above: Performed By: #### C [id number] ####[facility] [address] [place] [address] Medical Director: Herb Quiroz MD TROPONIN HS 6HRon 04-05-2021 Delta Troponin 6 Hr 3 pg/mL Normal 0-14 [facility] Comment on above: Result Comment: The term acute myocardial infarction should be used when there is acute myocardial injury with clinical evidence of acute myocardial ischemia and the rise or fall of serial Troponin HS values (delta troponin) greater than or equal to 15 pg/mL with at least one Troponin HS value above the 99th percentile reference range Performed By: #### 1 [id number] #### [facility] [address] [place] [address] Admitting Interviewer: Herb Quiroz MD Troponin HS 6 Hr 10 pg/mL Normal 3-78 [facility] Comment on above: Performed By: #### 1 [id number] #### [facility] [address] [place] [address] 68135 Admitting Interviewer: Herb Quiroz MD UAon 04-05-2021 Appearance, U Cloudy Normal [facility] Comment on above: Performed By: #### 1 [id number] #### [facility] [address] [place] [address] 67850 Admitting Interviewer: Herb Quiroz MD Bilirubin, U See Footnote Normal [facility] Comment on above: Result Comment: Init ial positive results not confirmed. Interfering substances may include elevated urobilinogen. Performed By: #### 1 [id number] #### [facility] [address] [place] [address]20 Admitting Interviewer: Herb Quiroz MD Blood, U Negative Normal Negative [facility] Comment on above: Performed By: #### 1 [id number] #### [facility] [address] [place] [address] 82409 Admitting Interviewer: Herb Quiroz MD Calcium Oxalate Crystals Occasional Normal [facility] Comment on above: Performed By: #### 1 [id number] #### [facility] [address] [place] [address] 57175 Admitting Interviewer: Herb Quiroz MD Color, U Sabrina Normal [facility] Comment on above: Performed By: #### 1 [id number] #### [facility] [address] [place] [address] 37954 Admitting Interviewer: Herb Quiroz MD Glucose Qual, U Negative Normal Negative [facility] Comment on above: Performed By: #### 1 [id number] #### [facility] [address] [place] [address] 33079 Admitting Interviewer: Herb Quiroz MD Hyaline Cast 5 #/HPF Normal [facility] Comment on above: Performed By: #### 1 [id number] #### [facility] [address] [place] [address] 83318 Admitting Interviewer: Herb Quiroz MD Ketones, U Trace Abnormal Negative [facility] Comment on above: Performed By: #### 1 [id number] #### [facility] [address] [place] [address] 98936 Admitting Interviewer: Herb Quiroz MD Leukocyte Esterase, U Negative Normal Negative [facility] Comment on above: Performed By: #### 1 [id number] #### [facility] [address] [place] [address] 06139 Admitting Interviewer: Herb Quiroz MD Mucous, U Occasional Normal [facility] Comment on above: Performed By: #### 1 [id number] #### [facility] [address] [place] [address] 40583 Admitting Interviewer: Herb Quiroz MD Nitrite, U Negative Normal Negative [facility] Comment on above: Performed By: #### 1 [id number] #### [facility] [address] [place] [address] 73893 Admitting Interviewer: Herb Quiroz MD pH, U 5.0 Normal 4.5-8.0 [facility] Comment on above: Performed By: #### 1 [id number] #### [facility] [address] [place] [address] 96769 Admitting Interviewer: Herb Quiroz MD Protein, U 30 mg/dl Abnormal Negative [facility] Comment on above: Performed By: #### 1 [id number] #### [facility] [address] [place] [address] 25376 Admitting Interviewer: Herb Quiroz MD RBC/HPF, U 4 #/HPF High 0-3 [facility] Comment on above: Performed By: #### 1 [id number] #### [facility] [address] [place] [address] 03046 Admitting Interviewer: Herb Quiroz MD Specific [place], U 1.027 Normal 1.001-1.035 [facility] Comment on above: Performed By: #### 1 [id number] #### [facility] [address] [place] [address] 91691 Admitting Interviewer: Herb Quiroz MD Squamous Epithelial Cells, U <1 Normal [facility] Comment on above: Performed By: #### 1 [id number] #### [facility] [address] [place] [address] 31891 Admitting Interviewer: Herb Quiroz MD U MICRO Indicated Normal [facility] Comment on above: Performed By: #### 1 [id number] #### [facility] [address] [place] [address] 76050 Admitting Interviewer: Herb Quiroz MD Urobilinogen Qual, U 4.0 mg/dl Abnormal <2.0 mg/dl [facility] Comment on above: Result Comment: EU/d l and mg/dl are equivalent units. Performed By: #### 1 [id number] #### [facility] [address] [place] [address] 96909 Admitting Interviewer: Herb Quiroz MD WBC/HPF, U 3 #/HPF Normal 0-5 [facility] Comment on above: Performed By: #### 1 [id number] #### [facility] [address] [place] [address] Admitting Interviewer: Herb Quiroz MD BASIC METABOLIC PANELon 03-06 Anion gap [Moles/Vol] 12 mmol/L Normal 10 - 20 [facility] Comment on above: Performed By: #### B MP #### [address] [address] Calcium [Mass/Vol] 8.8 mg/dL Normal 8.6 - 10.3 [facility] Comment on above: Performed By: #### B MP #### [address] [address] Chloride [Moles/Vol] 102 mmol/L Normal 98 - 107 [facility] Comment on above: Performed By: #### B MP #### [address] [address] Creatinine [Mass/Vol] 1.28 mg/dL Normal 0.50 - 1.30 [facility] Comment on above: Performed By: #### B MP #### [address] [address] GFR/1.73 sq M.predicted among non-blacks MDRD (S/P/Bld) [Vol rate/Area] 59 mL/min/{1.73_m2} Abnormal >90 [facility] Comment on above: Result Comment: CALC ULATIONS OF ESTIMATED GFR ARE PERFORMED USING THE 2020 CKD-EPI STUDY REFIT EQUATION WITHOUT THE RACE VARIABLE FOR THE IDMS-TRACEABLE CREATININE METHODS. https://jasn.asnjournals.org/content/early//ASN.203 1281920 Performed By: #### B MP #### [address] [address] Glucose [Mass/Vol] 201 mg/dL High 74 - 99 [facility] Comment on above: Performed By: #### B MP #### [address] [address] HCO3 (Bld) [Moles/Vol] 27 mmol/L Normal 21 - 32 [facility] Comment on above: Performed By: #### B MP #### [address] [address] Potassium [Moles/Vol] 4.7 mmol/L Normal 3.5 - 5.3 [facility] Comment on above: Performed By: #### B MP #### [address] [address] Sodium [Moles/Vol] 136 mmol/L Normal 136 - 145 [facility] Comment on above: Performed By: #### B MP #### [address] [address] Urea nitrogen [Mass/Vol] 17 mg/dL Normal 6 - 23 [facility] Comment on above: Performed By: #### B MP #### [address] [address] CBC AND DIFFERENTIALon 03-18 % AUTOMATED IMMATURE GRAN 1.5 % High 0.0 - 0.9 [facility] Comment on above: Result Comment: Maryam ture Granulocyte Count (IG) includes promyelocytes, myelocytes and metamyelocytes but does not include bands. Percent differential counts (%) should be interpreted in the context of the absolute cell counts (cells/L). Performed By: #### C BCDF #### [address] [address] Basophils (Bld) [#/Vol] 0.06 10*3/uL Normal 0.00 - 0.1 0 [facility] Comment on above: Performed By: #### C BCDF #### [address] [address] Basophils/100 WBC (Bld) 0.5 % Normal 0.0 - 2.0 [facility] Comment on above: Performed By: #### C BCDF #### [address] [address] Eosinophils (Bld) [#/Vol] 0.29 10*3/uL Normal 0.00 - 0.40 [facility] Comment on above: Performed By: #### C BCDF #### [address] [place] [address] Eosinophils/100 WBC (Bld) 2.5 % Normal 0.0 - 6.0 [facility] Comment on above: Performed By: #### C BCDF #### [address] [place] [address] Erythrocyte distribution width (RBC) [Ratio] 12.9 % Normal 11.5 - 14.5 [facility] Comment on above: Performed By: #### C BCDF #### [address] [address] Hematocrit (Bld) [Volume fraction] 46.1 % Normal 41.0 - 52.0 [facility] Comment on above: Performed By: #### C BCDF #### [address] [address] Hemoglobin (Bld) [Mass/Vol] 15.0 g/dL Normal 13.5 - 17.5 [facility] Comment on above: Performed By: #### C BCDF #### [address] [address] Lymphocytes (Bld) [#/Vol] 1.60 10*3/uL Normal 0.80 - 3.00 [facility] Comment on above: Performed By: #### C BCDF #### [address] [address] Lymphocytes/100 WBC (Bld) 13.8 % Normal 13.0 - 44.0 [facility] Comment on above: Performed By: #### C BCDF #### [address] [address] MCHC (RBC) [Mass/Vol] 32.5 g/dL Normal 32.0 - 36.0 [facility] Comment on above: Performed By: #### C BCDF #### [address] [address] MCV (RBC) [Entitic vol] 91 fL Normal 80 - 100 [facility] Comment on above: Performed By: #### C BCDF #### [address] [address] Monocytes (Bld) [#/Vol] 0.93 10*3/uL High 0.05 - 0.8 0 [facility] Comment on above: Performed By: #### C BCDF #### [address] [address] Monocytes/100 WBC (Bld) 8.0 % Normal 2.0 - 10.0 [facility] Comment on above: Performed By: #### C BCDF #### [address] [address] Neutrophils (Bld) [#/Vol] 8.55 10*3/uL High 1.60 - 5.50 [facility] Comment on above: Performed By: #### C BCDF #### [address] [address] Neutrophils/100 WBC (Bld) 73.7 % Normal 40.0 - 80.0 [facility] Comment on above: Performed By: #### C BCDF #### [address] [address] NUCLEATED RBC 0.0 /100 WBC Normal 0.0 - 0.0 [facility] Comment on above: Performed By: #### C BCDF #### [address] [address] Platelets (Bld) [#/Vol] 220 10*3/uL Normal 150 - 450 [facility] Comment on above: Performed By: #### C BCDF #### [address] [address] RBC 5.06 x10E12/L Normal 4.50 - 5.90 [facility] Comment on above: Performed By: #### C BCDF #### [address] [address] WBC (Bld) [#/Vol] 11.6 10*3/uL High 4.4 - 11.3 [facility] Comment on above: Performed By: #### C BCDF #### [address] [place] [address] Radiologyon 09-03-2020 US Kidney - bilateral Normal [facility] [address] Work Phone: US RENAL BILATon 09-03-2020 US RENAL BILAT Patient Name: ALLAN LARA STUDY: US RENAL BILAT; 09/03/2020 11:51 am INDICATION: bosniak 2F renal cysts, enlarged prostate. COMPARISON: None. ACCESSION NUMBER(S): [id number] ORDERING CLINICIAN: CONCETTA LEON TECHNIQUE: Multiple images [...] Electronically signed by: TWILA YADAV MD Normal [facility] Office Visit (Urology)on Follow-up visit Diagnoses/Problems Assessed [...] Renal mass, right; Ordered By:Concetta Leon; Non [facility] MACHINE INSPECTOR - Cytology; Status:Hold For - Specimen/Data Collection; Requested for:19Aug2020; Perform:Non [facility] MACHINE INSPECTOR - Cytology; Due:17Nov2020;Ordere d; For:Benign localized hyperplasia [...] Bilateral; Status:Hold For - Scheduling; Requested for:19Aug2020; Perform:[facility]; Due:17Nov2020;Ordere d; For:Benign localized hyperplasia of prostate without urinary obstruction, Bilateral renal cysts, BPH with urinary obstruction, Renal calculi, Renal mass, right; Ordered By:Concetta Leon; Radiologist to Determine Optimal Study : Y Requesting physician's phone/pager number? : [phone] What are the patient's signs and symptoms? [...] studies and renal ultrasound prior office phone [phone] KAROLYN Rendon [phone] fax [phone] Provider Impressions I spent 20 minutes with this patient greater than 50% of time was spent in counseling and coordination of care. See my assessment and plan for details Chief Complaint Renal Mass, Here to review ct scan KAROLYN Rendon Line [phone] Office Line [phone] History of Present Illnessincidental finding or renal [...] History res (more content not included)... Normal [facility] W/O IV CONTRAST on 08-13-2020 CT ABDOMEN W W/O IV CONTRAST Patient Name: ALLAN LARA STUDY: CT ABDOMEN W W/O IV CONTRAST; 08/13/2020 11:55 am INDICATION: renal mass vs hemorr cyst. COMPARISON: None. ACCESSION NUMBER(S): [id number] ORDERING CLINICIAN: CONCETTA LEON TECHNIQUE: CT of [...] Electronically signed by: SREEKANTH FORDE MD Normal [facility] CT Abdomen w/wo IV Contrasto n 08-13-2020 CT Abdomen WO and W contrast IV [facility] Work Phone: Office Visit (Urology)on Follow-up visit Diagnoses/Problems Assessed Bilateral renal cysts (753.10) (N28.1) Renal mass, right (593.9) (N28.89) Renal calculi (592.0) (N20.0) 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,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.1,N13.8) Orders Bilateral renal cysts, BPH with urinary obstruction, Renal calculi, Renal mass, right CT Urography with 3D Volume Rendered Imaging; Status:Hold For - Scheduling; Requested for:29Jul2020; Perform:[facility] Radiology Services Imaging; Due:[id number];Ordere d; For:Bilateral renal cysts, BPH with urinary obstruction, Renal calculi, Renal mass, right; Ordered By:Concetta Leon; Patient had contrast media before? : Unknown Patient taking Metformin or Derivatives? : Unknown Radiologist to Determine Optimal Study : Y Requesting physician's phone/pager number? : [phone] What are the patient's signs and symptoms? : incidental finding of renal mass incompletely characterized on CT without contrast 03/26 Renal Function Panel; Status:Active; Requested for:29Jul2020; Perform:Lab Services - Lab To Draw (Blood Test); Due:[id number];Ordere d; For:Bilateral renal cysts, BPH with urinary [...] after Ct scan is obtained office phone [phone] KAROLYN Rendon [phone] Provider Impressions I spent 20 minutes with this patient greater than 50% of time was spent in counseling and coordination of care. See my assessment and plan for details Chief Complaint New Patient, Hospital f/u Renal Mass KAROLYN Rendon Line [phone] Office Line [phone] History of Present Illnessincidental finding or renal [...] age 5, defects Social History resides in [facility] Review of Systems all other systems have [...] Medication No Known Drug Allergies Recorded By: Jluieta Flanagan; (more content not included)... Normal Touchworks XR Hand - right PA and Later al and Obliqueon 07-22-2020 IMPRESSION: 1. 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 2. Mild degenerative changes. 3. Atherosclerotic disease. Web Coordinator: MATHEW Transcribe Date/Time: Jul 22 2020 2:15P Dictated by : TROY STILES MD This examination was interpreted and the report reviewed and electronically signed by: TROY STILES MD on Jul 22 2020 2:16PM [facility] DIVISION OF RADIOLOGY * * *Final Report* [...] of the vasculature. DIVISION OF RADIOLOGY Provider, [facility] [place] - 07/22/2020 * * *Final Report* * [...] 2. Mild degenerative changes. 3. Atherosclerotic disease. Web Coordinator[facility] Transcribe Date/Time: Jul 22 2020 2:15P Dictated by : TROY STILES MD This examination was interpreted and the report reviewed and electronically signed by: TROY STILES MD on Jul 22 2020 2:16PM EST [facility] Radiology Study observation (narrative) Merry Jc XR Hand - right PA and Later al and ObliqueOrdered By: Ccf Provider on 07-22-2020 [facility] COVID-19on 01-27-2020 COVID-19, NAAT Not Detected Normal Not Detect [facility] Comment on above: Result Comment: Brian [...] authorized laboratories. Fact sheet for Healthcare Providers: https://www.fda.gov/media/915569/download Fact sheet for Patients: https://www.fda.gov/media/882008/download METHODOLOGY: Isothermal Nucleic Acid Amplification Performed By: #### C OVPC #### [facility] [address] [place] [address] Folateon 01-17-2020 Folate 13.6 ng/mL Normal 7.3-26.1 [facility] Comment on above: Result Comment: Any hemolysis in specimen will increased Folate results, consider recollection. As of 10/14/15, the methodology has changed. Results from this methodology should not be compared with results from previous methodology. Performed By: #### F OLAT #### [facility] [address] [place] [address] Hemoglobin A1con 01-17-2020 HbA1c (Bld) [Mass fraction] 6.1 % Critically high 4.8-5.9 [facility] Comment on above: Performed By: #### A 1C #### [facility] [address] [place] [address] Lipid Panelon 01-17-2020 Cholesterol [Mass/Vol] 118 mg/dL Normal 0-199 [facility] Comment on above: Result Comment: ATP III Cholesterol classification is Desirable. Performed By: #### L IPID #### [facility] [address] [place] [address] Cholesterol in HDL [Mass/Vol] 45 mg/dL Normal 40-59 [facility] Comment on above: Result Comment: ATP [...] CHD Performed By: #### L IPID #### [facility] [address] [place] [address] Cholesterol in LDL [Mass/Vol] 40 mg/dL Normal 0-129 [facility] Comment on above: Result Comment: ATP III LDL Classification is Optimal. Performed By: #### L IPID #### [facility] [address] [place] [address] Triglyceride [Mass/Vol] 163 mg/dL Critically high 0-150 [facility] Comment on above: Result Comment: ATP III Triglycerides Classification is Borderline High. Performed By: #### L IPID #### [facility] [address] [place] [address] TSH w/out Reflexon 0 TSH Qn 2.690 uIU/mL Normal 0.440-3.86 [facility] Comment on above: Performed By: #### T SH #### [facility] [address] [place] [address] Vitamin B12on 01-17-2020 Cobalamin (Vitamin B12) [Mass/Vol] 379 pg/mL Normal 232-1245 [facility] Comment on above: Performed By: #### B 12 #### [facility] [address] [place] [address] Vitamin Don 01-17-2020 Vitamin D 33.0 ng/mL Normal 30.0-100.0 [facility] Comment on above: Result Comment: (30- 100 ng/mL) Optimum Level This assay accurately quantifies the sum of vitamin D3, 25-Hydroxy and vitamin D2, 25-Hyroxy. Performed By: #### V ITD #### [facility] [address] [place] [address] Vital Signs Date Time Vital Sign Value Performing Clinician Facglenda holland 07-06-2022 15:28-0400 Body temperature 98.6 [degF] Dr. Simone Messer Work Phone: [facility] 07-06-2022 15:28-0400 Diastolic blood pressure 82 mm[Hg] Dr. Simone Messer Work Phone: [facility] 07-06-2022 15:28-0400 Heart rate 101 /min Dr. Simone Messer Work Phone: [facility] 07-06-2022 15:28-0400 Respiratory rate 18 /min Dr. Simone Messer Work Phone: [facility] 07-06-2022 15:28-0400 SaO2% (BldA) [Mass fraction] 97 % Dr. Simone Messer Work Phone: [facility] 07-06-2022 15:28-0400 Systolic blood pressure 146 mm[Hg] Dr. Simone Messer Work Phone: [facility] 07-06-2022 05:36-0400 Body mass index (BMI) [Ratio] 23.8 kg/m2 Dr. Simone Messer Work Phone: [facility] 07-06-2022 05:36-0400 Body weight 72.[address] Simone Messer Work Phone: [facility] 07-04-2022 09:47-0400 Body height 175.[address] Simone Messer Work Phone: [facility] 07-04-2022 05:02-0400 Body temperature 98.1 [degF] [facility] 07-04-2022 05:02-0400 Diastolic blood pressure 71 mm[Hg] [facility] 07-04-2022 05:02-0400 Heart rate 111 /min [facility] 07-04-2022 05:02-0400 Respiratory rate 16 /min [facility] 07-04-2022 05:02-0400 SaO2% (BldA) [Mass fraction] 98 % [facility] 07-04-2022 05:02-0400 Systolic blood pressure 138 mm[Hg] [facility] 07-04-2022 02:33-0400 Body height 175.26 cm [facility] 07-04-2022 02:33-0400 Body mass index (BMI) [Ratio] 23.7 kg/m2 [facility] 07-04-2022 02:33-0400 Body weight 72.8 kg [facility] 05-10-2021 14:26-0500 Body height 175.26 cm Emad H Elbadawy Work Phone: [facility] Work Phone: 05-10-2021 14:26-0500 Body mass index (BMI) [Ratio] 24.44 kg/m2 Emad H Elbadawy Work Phone: SL[facility]Keschbz[facility]dpce[facility] [address] Work Phone: 05-10-2021 14:26-0500 Body surface area Derived from formula 1.91 m2 Emad H Elbadawy Work Phone: XA[facility]Nzwwexh[facility]avde[facility] 46[facility] Work Phone: 05-10-2021 14:26-0500 Body weight 75.07 kg Emad H Elbadawy Work Phone: TR[facility]Gwdysmb-KfkimatC[facility] 46[facility] Work Phone: 05-10-2021 14:26-0500 Diastolic blood pressure 80 mm[Hg] Emad H Elbadawy Work Phone: YW-Xnremth-[facility]isypjv[facility] 46[facility] Work Phone: 05-10-2021 14:26-0500 Heart rate 113 /min Emad H Elbadawy Work Phone: IE-Exbbjxo-PagabpqC[facility] 46[facility] Work Phone: 05-10-2021 14:26-0500 Systolic blood pressure 114 mm[Hg] Emad H Elbadawy Work Phone: NC[facility]Ujsivil[facility]pwhtguC[facility] 46[facility] Work Phone: 08-19-2020 10:53-0400 Body height 175.26 cm Concetta Leon SALES ROUTE DRIVER HELPER-[employer]ARROW WORKER HELPER Work Phone: FS-Ylhskgt-Tqsdae 202 Work Phone: 08-19-2020 10:53-0400 Body mass index (BMI) [Ratio] 25.7 kg/m2 Concetta Leon SALES ROUTE DRIVER HELPER-BARROW WORKER HELPER Work Phone: ZF-Epiopdo-Wobkas 202 Work Phone: 08-19-2020 10:53-0400 Body surface area Derived from formula 1.95 m2 Concetta Leon SALES ROUTE DRIVER HELPER-BARROW WORKER HELPER Work Phone: LN-Btlpdvk-Kshcda 202 Work Phone: 08-19-2020 10:53-0400 Body weight 78.93 kg Concetta Leon APRN-BARROW WORKER HELPER Work Phone: EX-Bbgsvft-Syjyfh 202 Work Phone: 08-19-2020 10:53-0400 Diastolic blood pressure 69 mm[Hg] Concetta Leon APRN-BARROW WORKER HELPER Work Phone: QW-Qbwhwjp-Csondw 202 Work Phone: 08-19-2020 10:53-0400 Heart rate 105 /min Concetta Leon APRN-BARROW WORKER HELPER Work Phone: CG-Grxesuv-Hqbipv 202 Work Phone: 08-19-2020 10:53-0400 Systolic blood pressure 101 mm[Hg] Concetta Leon APRN-BARROW WORKER HELPER Work Phone: ND-Khmonye-Yifdlw 202 Work Phone: 07-29-2020 13:19-0400 Body height 175.26 cm Concetta Leon APRN-BARROW WORKER HELPER Work Phone: [facility] Work Phone: 07-29-2020 13:19-0400 Body mass index (BMI) [Ratio] 25.75 kg/m2 Concetta Leon APRN-BARROW WORKER HELPER Work Phone: GS-Myjhvwv-DM [facility] Work Phone: 07-29-2020 13:19-0400 Body surface area Derived from formula 1.95 m2 Concetta Carolyn SALES ROUTE DRIVER HELPER-BARROW WORKER HELPER Work Phone: OH-Uwaanmt-KA [facility] Work Phone: 07-29-2020 13:19-0400 Body weight 79.1 kg Concetta Carolyn SALES ROUTE DRIVER HELPER-BARROW WORKER HELPER Work Phone: LW-Jgandem-RJ [facility] Work Phone: 07-29-2020 13:19-0400 Diastolic blood pressure 75 mm[Hg] Concetta Carolyn SALES ROUTE DRIVER HELPER-BARROW WORKER HELPER Work Phone: IL-Ktvmvce-TA [facility] Work Phone: 07-29-2020 13:19-0400 Heart rate 115 /min Concetta Carolyn SALES ROUTE DRIVER HELPER-BARROW WORKER HELPER Work Phone: QO-Xjnggoy-MG [facility] Work Phone: 07-29-2020 13:19-0400 Systolic blood pressure 126 mm[Hg] Concetta Carolyn SALES ROUTE DRIVER HELPER-BARROW WORKER HELPER Work Phone: LY-Fjyqibc-NW [facility] Work Phone: Encounters Encounter Date Encounter Type Care Provider Facility Start: 01-03-2025 ambulatory Kendra Herrera Facility:B Start: 01-03-2025 End: 01-07-2025 Evaluation and management of inpatient Simone Messer Facility:[facility] Start: 03-19-2024 ambulatory Darshan Quiroz Fac ility:[facility] Start: 03-19-2024 End: 03-22-2024 Evaluation and management of inpatient Darshan Quiroz Facility:[facility] Start: 03-09-2024 End: 03-10-2024 Emergency department patient visit Jose Taveras Facility:[facility] Start: 09-30-2022 End: 09-30-[address] Simone Messer Work Phone: [facility] Work Phone: Start: 09-30-2022 End: 09-30-[address] Simone Messer Work Phone: [facility] Work Phone: Start: 07-06-2022 Non-patient / Non-visit Dr. Dat Messer Work Phone: [facility] Start: 07-05-2022 Non-patient / Non-visit Dr. Dat Messer Work Phone: [facility] Start: 07-05-2022 Non-patient / Non-visit Dr. Dat Messer Work Phone: [facility] Start: 07-04-2022 Non-patient / Non-visit Dr. Dat Messer Work Phone: [facility] Start: 07-04-2022 End: 07-06-2022 Evaluation and management of inpatient [facility]Intensive Care [facility] Start: 09-24-2021 [facility] SALES ROUTE DRIVER HELPER.BARROW WORKER HELPER Work Phone: [facility] Comment on above: Essential hypertensi on (Primary Dx); Renal mass Start: 09-20-2021 [facility] SALES ROUTE DRIVER HELPER.BARROW WORKER HELPER Work Phone: [facility] Comment on above: Stage 3 chronic kidn ey disease, unspecified whether stage 3a or 3b CKD (HCC) (Primary Dx); Muscle weakness (generalized) Start: 09-15-2021 [facility] SALES ROUTE DRIVER HELPER.BARROW WORKER HELPER Work Phone: [facility] Comment on above: Calculus of gallblad blanca with acute on chronic cholecystitis without obstruction (Primary Dx); Diarrhea, unspecified type Start: 09-13-2021 [facility] SALES ROUTE DRIVER HELPER.BARROW WORKER HELPER Work Phone: [facility] Comment on above: Essential hypertensi on (Primary Dx); Heartburn Start: 09-10-2021 [facility] summerN.BARROW WORKER HELPER Work Phone: [facility] Comment on above: Diabetes mellitus wi thout complication (HCC) (Primary Dx); Hyperlipidemia, unspecified hyperlipidemia type Start: 08-16-2021 [facility]BARROW WORKER HELPER Work Phone: [facility] Comment on above: Stage 3 chronic kidn ey disease, unspecified whether stage 3a or 3b CKD (HCC) (Primary Dx); Constipation, unspecified constipation type Start: 08-11-2021 [facility] summerN.BARROW WORKER HELPER Work Phone: [facility] Comment on above: Diabetes mellitus wi thout complication (HCC) (Primary Dx); Hyperlipidemia, unspecified hyperlipidemia type Start: 07-28-2021 [facility] SALES ROUTE DRIVER HELPER.BARROW WORKER HELPER Work Phone: [facility] Comment on above: Diabetes mellitus wi thout complication (HCC) (Primary Dx); Constipation, unspecified constipation type Start: 07-22-2021 [facility] summerN.BARROW WORKER HELPER Work Phone: [facility] Comment on above: Essential hypertensi on (Primary Dx); Rhinorrhea Start: 06-24-2021 [facility] SALES ROUTE DRIVER HELPER.BARROW WORKER HELPER Work Phone: [facility] Comment on above: Essential hypertensi on (Primary Dx); Rhinorrhea Start: 06-21-2021 [facility] SALES ROUTE DRIVER HELPER.BARROW WORKER HELPER Work Phone: [facility] Comment on above: Renal mass (Primary Dx); Muscle weakness (generalized) Start: 06-16-2021 [facility] summerN.BARROW WORKER HELPER Work Phone: [facility] Comment on above: Stage 3 chronic kidn ey disease, unspecified whether stage 3a or 3b CKD (HCC) (Primary Dx); Constipation, unspecified constipation type Start: 06-04-2021 [facility] summerN.BARROW WORKER HELPER Work Phone: [facility] Comment on above: Hypothyroidism, unsp ecified type (Primary Dx); Schizoaffective disorder, bipolar type (HCC) Start: 05-26-2021 ambulatory [facility] SALES ROUTE DRIVER HELPER.BARROW WORKER HELPER Work Phone: [facility] Comment on above: Essential hypertensi on (Primary Dx); Weight loss Start: 05-14-2021 ambulatory [facility] SALES ROUTE DRIVER HELPER.BARROW WORKER HELPER Work Phone: [facility] Comment on above: Renal mass (Primary Dx); Muscle weakness (generalized) Start: 05-10-2021 Office outpatient vi sit 15 minutes Emad H Billydionisiojustin Work Phone: CF[facility]Lvmbksk[facility]oj[facility] 4600 Work Phone: Start: 04-29-2021 Chart Update Concetta MONTOYA RN-BARROW WORKER HELPER Work Phone: RL[facility]yhqdwg-[facility]St[facility] Work Phone: Start: 09-16-2020 AUDIT Concetta MONTOYA RN-BARROW WORKER HELPER Work Phone: VU-Ienejzo-MbylqszC[facility] 4600 Work Phone: Start: 09-04-2020 Chart Update Concetta MONTOYA RN-BARROW WORKER HELPER Work Phone: OU-Ibvgkrt-Ufaryy 202 Work Phone: Start: 08-19-2020 FUV, Provider: Concetta Leon, Status: Pen, Time: 11:00 AM Concetta Leon SALES ROUTE DRIVER HELPER-BARROW WORKER HELPER Work Phone: CY-Byvxdgq-YkugpwmC[facility] 4600 Work Phone: Start: 08-17-2020 Chart Update Concetta MONTOYA RN-BARROW WORKER HELPER Work Phone: SA-Vumkrfm-YzsmtuwC[facility] 4600 Work Phone: Start: 08-12-2020 AUDIT Concetta MONTOYA RN-BARROW WORKER HELPER Work Phone: MT-Gxqsgnc-SWSt[facility] Work Phone: Start: 07-22-2020 End: 07-22-2020 Subsequent hospital visit by physician Xr [facility] Work Phone: Radiology Comment on above: Hand [...] panel - S jose or Plasma Xr [employer] Work Phone: Start: 09-12-2017 Colonoscopy [employer] neh SALES ROUTE DRIVER HELPER.BARROW WORKER HELPER Work Phone: Urine culture Dr. Simone Hylton en Work Phone: Plan of Treatment Date Care Activity Detail Author Start: 09-13-2027 Colonoscopy COLONOSCOPY [facility] Start: 09-13-2027 COLORECTAL CANCER SCREENING COLORECTAL CANCER SCREENING [facility] Start: 09-13-2027 Screening for malignant neoplasm of colon [facility] Start: 01-16-2025 Lipid panel Lipid Screening [facility] Start: 11-05-2023 Covid-19 Vaccine ( season) Covid-19 Vaccine ( season) [facility] Start: 11-05-2023 Influenza vaccination Influenza Vaccine (#1) [facility] Start: 07-16-2023 RSV Vaccine (1 - 1-dose 75+ series) RSV Vaccine (1 - 1-dose 75+ series) [facility] Start: 03-06-2023 Advance Directive Discussion Advance Directive Discussion [facility] Start: 01-16-2023 DIABETES SCREEN DIABETES SCREEN [facility] Start: 01-16-2023 Diabetes Screening Diabetes Screening [facility] Start: 07-06-2022 Patient discharge [facility] Start: 07-05-2022 Care planning and problem solving actions [facility] Start: 07-05-2022 Blood chemistry [facility] Start: 07-04-2022 Following clinical pathway protocol [facility] Start: 07-04-2022 Verification routine [facility] Start: 07-04-2022 Vitamin D, 25-hydroxy measurement [facility] Start: 07-04-2022 Assessment of risk of venous thromboembolism [facility] Start: 07-04-2022 Cardiac monitoring [facility] Start: 07-04-2022 Catheterization of vein [facility] Start: 07-04-2022 Consultation [facility] Start: 07-04-2022 Continuous pulse oximetry [facility] Start: 07-04-2022 Enteric precautions [facility] Start: 07-04-2022 Insertion of catheter into peripheral vein [facility] Start: 07-04-2022 Measuring intake and output [facility] Start: 07-04-2022 Notification of physician [facility] Start: 07-04-2022 Oxygen therapy [facility] Start: 07-04-2022 Providing care according to standard [facility] Start: 07-04-2022 Referral to occupational therapist [facility] Start: 07-04-2022 Referral to service [facility] Start: 07-04-2022 Vital signs measurements [facility] Start: 07-04-2022 [facility] Start: 07-04-2022 Computed tomography of abdomen and pelvis with intravenous contrast Abdomen/Pelvis W IV Cont ONLY [facility] Start: 07-04-2022 CT Abdomen and Pelvis W contrast IV [facility] Start: 07-04-2022 Admission procedure [facility] Start: 07-04-2022 End: 07-04-2022 [facility] Start: 07-04-2022 End: 07-04-2022 Blood culture [facility] Start: 07-04-2022 Inhalation therapy procedure [facility] Start: 07-04-2022 [facility] Start: 11-10-2021 FUV, Provider: Concetta Leon, Status: Pen, Time: 11:00 AM FUV, Provider: Concetta Leon, Status: Pen, Time: 11:00 AM LI-Zforgip-Ctabjdy [facility] [address] Work Phone: Start: 11-04-2021 Influenza vaccination [facility] Start: 07-22-2021 BP CONTROLLED (<130/80) BP CONTROLLED (<130/80) [facility] Start: 05-10-2021 FUV, Provider: Concteta Leon, Status: Pen, Time: 2:20 PM FUV, Provider: Concetta Leon, Status: Pen, Time: 2:20 PM [facility] Work Phone: Start: 03-22-2021 FUV, Provider: Concetta Leon, Status: Pen, Time: 11:00 AM FUV, Provider: Concetta Leon, Status: Pen, Time: 11:00 AM YC-Ltnkuow-Rlbdpi 202 Work Phone: Start: 03-06-2021 ADVANCE DIRECTIVE DISCUSSION ADVANCE DIRECTIVE DISCUSSION [facility] Start: 02-06-2021 ANNUAL PCP TEAM CHRONIC DISEASE VISIT ANNUAL PCP TEAM CHRONIC DISEASE VISIT [facility] Start: 11-04-2020 Influenza vaccination INFLUENZA (#1) [facility] Start: 08-19-2020 FUV, Provider: Concetta Leon, Status: Pen, Time: 11:00 AM FUV, Provider: Concetta Leon, Status: Pen, Time: 11:00 AM [facility] Work Phone: Start: 2013 Pneumococcal Vaccine: 65+ (1 of 1 - PCV) Pneumococcal Vaccine: 65+ (1 of 1 - PCV) [facility] Start: 2013 PNEUMOCOCCAL: 65+ (1 - PCV) PNEUMOCOCCAL: 65+ (1 - PCV) [facility] Start: 2013 PNEUMOVAX AGE 65 AND OVER WITH 5YR LOOKBACK (#1) PNEUMOVAX AGE 65 AND OVER WITH 5YR LOOKBACK (#1) [facility] Start: 1998 SHINGRIX VACCINE (1 of 2) SHINGRIX VACCINE (1 of 2) [facility] Start: 1993 COLOGUARD (FIT-DNA) COLOGUARD (FIT-DNA) [facility] Start: [address] COLONOGRAPHY [facility] Start: 1993 FECAL OCCULT BLOOD FECAL OCCULT BLOOD [facility] Start: 1993 Screening for malignant neoplasm of colon [facility] Start: 1993 SIGMOIDOSCOPY SIGMOIDOSCOPY [facility] Start: 07-16-1983 LIPID SCREEN LIPID SCREEN [facility] Start: 07-16-1967 Urine microalbumin profile [place] Start: 1966 Anxiety Screening Anxiety Screening [facility] Start: 1966 BP CONTROLLED (<130/80) BP CONTROLLED (<130/80) [facility] Start: 1966 Depression Screening Depression Screening [facility] Start: 1966 HEPATITIS C SCREENING HEPATITIS C SCREENING [facility] Start: 1966 Hepatitis C screening Hepatitis C Screening [facility] Start: 1960 Adult depression screening assessment DEPRESSION SCREENING [facility] Start: 1953 COVID-19 VACCINE (#1) COVID-19 VACCINE (#1) [facility] Start: 1953 COVID-19 VACCINE (1) COVID-19 VACCINE (1) [facility] Start: 01-15-1951 COVID-19 VACCINE (#1) COVID-19 VACCINE (#1) [facility] Anion gap measurement [facility] Bacteria identified in Blood by Culture Blood Culture [facility] Bacteria identified in Blood by Culture Blood Culture [facility] Bacteria identified in Urine by Culture Urine Culture [facility] BUN/Creatinine ratio [facility] Calcium [Mass/volume ] in Serum or Plasma [facility] Carbon dioxide, tota l [Moles/volume] in Serum or Plasma [facility] Chloride [Moles/volu me] in Serum or Plasma [facility] Clostridioides diffi cile DNA [Presence] in Unspecified specimen by AARTI with probe detection [facility] Creatinine [Moles/vo lume] in Serum or Plasma [facility] Gastrointestinal pat hogens panel - Stool by AARTI with probe detection [facility] Glucose [Mass/volume ] in Serum or Plasma [facility] Hematocrit [Volume Fraction] of Blood [facility] Hemoglobin [Mass/vol ume] in Blood [facility] Hemoglobin A1c/Hemoglobin.total in Blood [facility] Leukocytes [#/volume ] in Blood [facility] Mean corpuscular hem oglobin concentration determination [facility] Mean corpuscular hem oglobin determination [facility] Measurement of renal function [facility] Neutrophil count [facility] Neutrophil percent differential count [facility] Patient Education ED Diarrhea, U nknown Cause [facility] Work Phone: Patient referral [facility] Work Phone: Platelets [#/volume] in Blood [facility] Potassium [Moles/vol ume] in Serum or Plasma [facility] Red blood cell count [facility] Red cell distributio n width determination [facility] Sodium [Moles/volume ] in Serum or Plasma [facility] Urea nitrogen [Mass/ volume] in Serum or Plasma [facility] Immunizations Immunization Date Immunization Notes Care Provider Fa cility 07-04-2022 tetanus toxoid, redu shivani diphtheria toxoid, and acellular pertussis vaccine, adsorbed [facility] Payers Date Payer Category Payer Self-pay [id number] 2024 Unknown [id number] 2024 Unknown [id number] 2016 Medicaid [facility] MEDICAID MYC ARE [facility] MEDICAID [id number] 2016-Present [phone] [address] [place] [address] Medicaid [id number] 2016 Medicare [id number] 2016 Medicare [facility] MEDICARE MYC ARE [facility] MEDICARE [id number] 2016-Present [phone] [address] [place] [address] Medicare [id number] Unknown Unknown VA AUTH REQUIR ED SEE NOTE [id number] Unknown [id number] Unknown [id number] Unknown [id number] Unknown [id number] Unknown [id number] [id number] Unknown [id number] Unknown [id number] [id number] Unknown [id number] [id number] Unknown [id number] [id number] Unknown [id number] [id number] Unknown [id number] [id number] Unknown [id number] [id number] Social History Date Type Detail Facility Start: 09-27-2017 End: 02-08-2020 No alcohol use No [facility] use [facility]: Start: 04-12-2010 End: 09-05-2017 Tobacco smoking status NHIS Never smoked tobacco [facility] Work Phone: Start: 04-12-2010 End: 09-05-2017 Tobacco use and exposure Smokeless tobacco non-user [facility] Work Phone: Start: 09-27-2017 Alcohol intake Current drinke r of alcohol (finding) [facility] Start: 04-12-2010 History SDOH Alcohol Comment no use in 25 yearas [facility] Start: 1950 Sex Assigned At Not on file [facility] Start: 06-22-2020 End: 04-26-2021 Exposure to SARS-CoV-2 (event) Not sure [facility] Start: 07-04-2022 End: 07-04-2022 Tobacco smoking status NHIS Unknown if ever smoked [facility] Start: 07-26-2019 None [facility] Start: 01-15-2020 - [facility] Start: 07-26-2019 Non-smoker [facility] Start: 1950 Sex Assigned At Male [facility] Start: 09-27-2017 End: 02-08-2020 Tobacco use panel [facility] National Score (1-100), lower number is lower risk Not on file [facility] Goals Date Patient Goal Desired Activity /State Functional Status Date Assessment Result Facility 07-06-2022 Functional status Ambulates;Bathroom Priv ilege [facility] Work Phone: Mental Status Date Assessment Result Facility 07-06-2022 Cognitive function Voice/Name [facility] Work Phone: Clinical Notes 07-22-2020 to 01-07-2025 Note Date & Type Note Facility 01-07-2025 Note [facility] Medical Records Department [address] [place] [address] Discharge Summary 01/07/25 1444 MR#: [id number] Acct: [id number] Name: ALLAN LARA Rep #: [id number] : 1950 74 From: Kendra Herrera MD PCP: Dr. Simone Messer MD Status:ADM IN [place] [facility] Providers Date of Admission: 01/03/25 Date of [...] bisacodyl 10 mg rectal suppository 10 mg ID DAILY #0 ea 01/07/25 sennosides 8.6 mg-docusate sodium 50 mg tablet (Stimulant Laxative Plus) 2 tab PO BID #0 tabs 01/07/25 Hospital Course Summary of Care Provided Minutes Spent on Discharge: 32 Hospital Course: 74-year-old male with a history of hypertension, hypothyroidism, BPH, anxiety, GERD presented to [facility] ED 01/03/2025 due to chest pain and vomiting. Has history of dementia and had difficulty expressing himself but it was determined he had chest pain that developed in the left mid anterior aspect chest and senior care noted several episodes of emesis with unknown [...] hospitalist contacted for admission. Patient admitted to [facility] on IV Zosyn. Patient evaluated by speech [...] or acute complain (more content not included)... [facility] 03-22-2024 Note [facility] Medical Records Department [address] [place] [address] Discharge Summary 03/22/24 1339 MR#: [id number] Acct: [id number] Name: ALLAN LARA Rep #: [id number] : 1950 73 From: Darshan Quiroz MD PCP: Dr. Simone Messer MD Status:ADM IN [facility] Prov[facility] Date of Admission: 03/19/24 Primary Care [...] a 73 M who presents from the senior care with shortness of breath and hypoxia. He [...] with aspiration pneumonia???73-year-old male presents from the senior care with altered mental status and lethargy. Sepsis [...] plan to discharge today back to the senior care to continue with rehab as well as [...] or Extremities Neuro (more content not included)... [facility] 07-06-2022 Discharge summary Note Date/Time July 06, 2022 2:12pm [facility] Medical Records Department [address] [place] [address] Discharge Summary 07/06/22 1411 MR#: [id number] Acct: [id number] Name: ALLAN LARA Rep #:[id number] : 1950 71 From: Peyton [place] MD PCP: Dr. Simone Messer MD Status:ADM I N Location: [place] [address] Providers Date of Admission: 07/04/22 Date of Discharge: 07/06/22 Primary Care Physician: Dr. Simone Messer MD Consultations 07/04/22 05:34 Consult: Truck Sales Representative / Pulmonary Medicine Routine Consulting Provider: Donald [...] lovenox DIspositionL transfer out of ICU to [facility] surg Medications at Discharge Home Medications amlodipine [...] was admitted to the ED from his senior care on 07/04/2022 with a complaint of mechanical [...] were negative. He was discharged back to nursing home facility on 07/06/2022. He was discharged on [...] 78.6 H, Lymph % (Auto) 12.3 L, [place] % (Auto) 6.5, Eos % (Auto) 1.1, [...] Self Care Charges/Coding Visit Charges Inpatient E&M: 64122 Disch Hosp >30min 07/06/22 1518 <Electronically signed by Peyotn [place] MD> Cosigner Signature (if applicable): CC: Dr. Peyton Crawfodr MD; Dr. Simone Messer MD~ Signed [facility] Work Phone: 1(139) 418-897105-03-[address] [place] [facility] July 06, 2022 2:11pm Note Date/Time July 06, 2022 2:11pm [facility] Medical Records Department [address] [place] [address] Transfer to [facility] MR#: [id number] Acct: [id number] Name: ALLAN LARA Rep #:[id number] : 1950 71 From: Peyton [place] MD PCP: Dr. Simone Messer MD Status:ADM I N Certification of patient admission REQUIRED AT TIME OF ADMISSION. I CERTIFY THAT POST-HOSPITAL F SERVICES ARE REQUIRED TO BE GIVEN ON AN IN-PATIENT BASIS BECAUSE OF THE ABOVE NAMED PATIENT'S NEED FOR GROUP HOME CARE ON A CONTINUING BASIS FOR THE CONDITION(S) FOR WHICH HE/SHE WAS RECEIVING IN-PATIENT HOSPITAL SERVICES PRIOR TO HIS/HER TRANSFER TO [facility]. 07/06/22 1411<Electronically signed by Peyton [place] MD> [...] Self Care Charges/Coding Visit Charges Inpatient E&M: 10408 Disch Hosp >30min 07/06/22 1411 <Electronically signed by Peyton [place] MD> Cosigner Signature (if applicable): CC: Dr. Donald Valdes MD; Dr. Sreekanth Verma MD; Dr. Simone Messer MD ~ [facility] Work Phone: 1(829) 405-933605-02-[address] [place] [facility] July 05, 2022 3:43pm Note Date/Time July 05, 2022 12:22p [facility] Medical Records Department [address] [place] [address] Progress Note 07/05/22 1215 MR#: [id number] Acct: [id number] Name: ALLAN LARA Rep #:[id number] : 1950 71 From: Peyton [place] MD [...] 81.2 H, Lymph % (Auto) 8.8 L, [place] % (Auto) 8.0, Eos % (Auto) 0.7, [...] med surg Charges/Coding Visit Charges Inpatient E&M: 10533 Subs Hosp L2 07/05/22 3933 <Electronically signed by Peyton [place] MD> Peyton [place] MD Cosigner Signature (if applicable): CC: ~ Signed [facility] Work Phone: 1(817) 481-602805-02-[address] Levine [facility] July 05, 2022 7:56am Note Date/Time July 05, 2022 6:53am [facility] Medical Records Department [address] [place] [address] Progress Note - Truck Sales Representative 07/05/22 0650 MR#: [id number] Acct: [id number] Name: ALLAN LARA Rep #:[id number] : 1950 71 From: Jerald Levine DO [...] medicationsas indicated. This note was generated with FOXTOWNation software. It may contain incorrectwords, spelling, and [...] 81.2 H, Lymph % (Auto) 8.8 L, [place] % (Auto) 8.0, Eos % (Auto) 0.7, [...] flat affect Charges/Coding Visit Charges Inpatient E&M: 57258 Subs Hosp L2 07/05/22 0756 <Electronically signed by Jerald Levine DO> Cosigner Signature (if applicable): CC: ~ Signed [facility] Work Phone: 1(879) 183-874005-02-[address] [place] [facility] July 05, 2022 7:22am Note Date/Time July 04, 2022 10:27a m [facility] Medical Records Department [address] [place] [address] Progress Note 07/04/22 1024 MR#: [id number] Acct: [id number] Name: ALLAN LARA Rep #:[id number] : 1950 71 From: Peyton [place] MD [...] 91.2 H, Lymph % (Auto) 3.6 L, [place] % (Auto) 3.7, Eos % (Auto) 0.0, [...] Clarity Clear, Urine pH 5.0, Ur Specific [place] 1.015, Urine Protein 15 H, Urine Glucose [...] lovenox # Charges/Coding Visit Charges Inpatient E&M: 25511 Subs Hosp L2 07/05/22721 <Electronically signed by Peyton [place] MD> Peyton [place] MD Cosigner Signature (if applicable): CC: ~ Signed [facility] Work Phone: 1(491) 286-109805-02-[address] Levine [facility] July 05, 2022 6:50am Note Date/Time July 04, 2022 7:17am [facility] Medical Records Department [address] [place] [address] Consultation - Truck Sales Representative 07/04/22 0708 MR#: [id number] Acct: [id number] Name: ALLAN LARA Rep #:[id number] : 1950 71 From: Jerald Levine DO [...] for now. This note was generated with Parantez dictation software. It may contain incorrectwords, spelling, and punctuation that were not noted in checking the note beforesigning. HPI Consult Data Date of Consult: 07/05/22 HPI Narrative Reason for Consultation: Sepsis HPI Narrative: The patient is a 71-year-old [...] and hypertension. He currently resides at a nursing home facility. He was also recently diagnosed with [...] 91.2 H, Lymph % (Auto) 3.6 L, [place] % (Auto) 3.7, Eos % (Auto) 0.0, [...] Clarity Clear, Urine pH 5.0, Ur Specific [place] 1.015, Urine Protein 15 H, Urine Glucose [...] EDT , Charges/Coding Visit Charges Inpatient E&M: 44171 Init Hosp L3 07/05/22 0650 <Electronically signed by Jerald Levine DO> Cosigner Signature (if applicable): CC: Dr. Donald Valdes MD; Dr. Sreekanth Verma MD; Dr. Simone Messer MD~ Signed [facility] Work Phone: 1([phone]) 995-726805-01-[address] [facility] July 04, 2022 8:50am Note Date/Time July 04, 2022 3:00am [facility] Medical Records Department [address] [place] [address] Emergency Department Summary 07/04/22 MR#: [id number] Acct: [id number] Name: ALLAN LARA Rep #:[id number] : 1950 71 From: Mati Shaikh MD [...] Presents tonight after he fell in the senior care causing a laceration on his left eyebrow. [...] girdle intact. Moving all 4 extremities. Normal inward toll operator strength. Normal dorsi plantarflexion. Normal range of [...] all extremities and no focal motor deficits [place] Coma Scale: document GCS findings Spontaneous Obeys [...] making narrative: 71-year-old demented gentleman from a senior care and presents with a fall witha left [...] 91.2 H Lymph % (Auto) 3.6 L [place] % (Auto) 3.7 Eos % (Auto) 0.0 [...] Color Urine Clarity Urine pH Ur Specific Newport Urine Protein Urine Glucose (UA) Urine Ketones [...] (Auto) Neut % (Auto) Lymph % (Auto) [place] % (Auto) Eos % (Auto) Baso % [...] Clarity Clear Urine pH 5.0 Ur Specific [place] 1.015 Urine Protein 15 H Urine Glucose [...] Carlos Epperson MD at 3:32 EDT , Chest x-ray, portable, single view, interpreted [...] rate of 122. No acute signs of MT or ischemia. No acute signs of dysrhythmia. Procedures Lacerations Left eyebrow 2 cm laceration repair:: Length: 1 in Depth: Sub Q Shape: Linear Prep: Shure-Clens Laceration repair: Lidocaine and Skin sutures Number of Sutures/[place]: 3 Suture Information: Ethilon and 5-0 Comment: Left eyebrow laceration. Approximately 1 inch in length. Linear. Locally anesthetized with lidocaine. Cleaned with Shur-Clens. Washed with saline. Explored. Closed using 3 simple interrupted 5-0 Ethilon sutures. Proper hemostasis wound closure is obtained. Critical Care Time Critical Care Time: Yes Critical care time (excluding procedures): 30-74 minutes, Including time spent:,Discussing w/Patient &/or Family/Pillowcase Sewer, Discussing w/Consultants, ArrangingAdmission or Transfer, Performing Direct Patient Care at Bedside and - (34 min) Discharge Plan Dx/Rx/DC Orders Clinical Impression: Fall, Head injury, Laceration of eyebrow, left, Acute hypotension, Leukocytosis, Diarrhea, COVID, Sepsis associated hypotension, Acute kidney injury Disposition Disposition: Acute Care Hospital [facility] What to do if you have Problems For any increased pain, shortness of breath, bleeding, nausea or vomiting, chestpain, or any unexpected problems, contact your Primary Care Provider. Call [facility] ([phone]) or report to the closest Emergency Room. Call 911 if necessary. 07/04/22 0850 <Electronically signed by Mati Shaikh MD> Cosigner Signature (if applicable): CC: Dr. Simone Messer MD ~ Signed [facility] Work Phone: 1(813) 508-783105-01-2023 History and physical note Author Dr. Verma [facility] July 04, 2022 6:46am Note Date/Time July 04, 2022 4:37am [facility] Medical Records Department [address] [place] [address] H&P Exam - Hospitalist 07/04/22 0436 MR#: [id number] Acct: [id number] Name: ALLAN LARA Rep #:[id number] : 1950 71 From: Sreekanth Verma MD PCP: Dr. Simone Messer MD Status:ADM I N Location: ICU ICU01-1 HPI - General General Date of Admission: 07/04/22 Date of Service: 07/04/22 Chief Complaint: Fall HPI Narrative ALLAN LARA, is a 71 M with a significant history of Schizoaffective disorder; delusional disorder; hypothyroidism; hypertension; and neoplasm of right kidney who presents from [facility] with a fall. Also patient sustained laceration [...] doctor who discussed the case primarily with [facility]. [facility] Medical History (Updated [...] 91.2 H, Lymph % (Auto) 3.6 L, [place] % (Auto) 3.7, Eos % (Auto) 0.0, [...] Clarity Clear, Urine pH 5.0, Ur Specific Newport 1.015, Urine Protein 15 H, Urine Glucose [...] 3:32 EDT Reading Location ID and State: [address] [place] [address] Tel , Service support , Assessment & [...] Lovenox ordered. Charges/Coding Visit Charges Inpatient E&M: 24212 Init Hosp L3 07/04/22 0602 <Electronically signed [...] MD; Dr. Simone Messer MD ~* Signed [facility] Work Phone: 1(423) 716-975907-22-2022 NoteHNO ID: [id number] Author: Kirstin Escalante APRN.BARROW WORKER HELPER Service: ? Author Type: Nurse Practitioner Type: [...] F/u with urology as scheduled Kirstin Escalante [facility]N.[facility] History of Present illness Narrative* Kirstin Escalante [...] scheduled Kirstin Escalante APRN.CNP [facility] note* Diagnosis Stage 3 chronic kidney disease, unspecified whether stage 3a or 3b CKD (HCC)- Primary Muscle weakness (generalized) documented in this encounter [facility]07-18-2022 NoteHNO ID: [id number] Author: Kirstin Escalante APRN.BARROW WORKER HELPER Service: ? Author Type: Nurse Practitioner Type: [...] meds 2. Muscle weakness PT/OT Kirstin Escalante APRN.[facility]AZ[facility] History of Present illness Narrative* Kirstin Escalante APRN.BOAZ - 09/20/2021 1:40 PM EDT Allan Lara [...] Cortisone Rash Vitals and Medications reviewed in [facility] system. PHYSICAL EXAMINATION: General appearance: Well appearing, [...] meds 2. Muscle weakness PT/OT Kirstin Escalante APRN.BOAZ documented in this encounterOhio[facility]07-13-2022 NoteHNO ID: [id number] Author: Kirstin Escalante APRN.CNP Service: ? Author Type: Nurse Practitioner Type: Progress Notes Filed: 09/20/2021 2:47 PM Note Text: Allan Lara is a 71 year old male seen today per Nursing request. R had c/o acute abd geiger, n/v and diarrhea. Sent to [facility] ED, sent back with zofran prn. [...] Cortisone Rash Vitals and Medications reviewed in [facility] system. PHYSICAL EXAMINATION: General appearance: Well appearing, [...] ICD9: 787.91, ICD10: R19.7 Resolved Summer TABATHA Escalante.[facility]07-13-2022 NoteED Nursing Discharge Summary Entered On: 09/15/2021 13:45 EDT Performed On: 09/15/2021 13:40 EDT by Giovana Glover RN [place] Information [id number] ED IV's : Discontinue ED IV Site Assessment : Yes, Completed in IVie ED Vitals Completed : Yes ED Final Assessment Completed : Yes ED Progress Note Completed : Yes Complete all PRN/Pain response forms? : N/A ED Disassociate Patient from Monitor : N/A Updated Depart Time : Yes ED Belongings sent w patient [id number] : Not applicable Gioavna Glover RN - 09/15/2021 13:44 EDT Education Instructions given to : Patient, Other: Nurse at [facility] [employer] Methodology : Explanation, Printed Material Barriers to [...] Giovana Glover RN - 09/15/2021 13:[address] [facility]07-13-2022 History of Present illness Narrative* Kirstin Sylviagraretalcon, TABATHA.BARROW WORKER HELPER - 09/15/2021 2:39 PM EDT Allan Lara is a 71 year old male seen today per Nursing request. R had c/o acute abd geiger, n/v and diarrhea. Sent to [facility] ED, sent back with zofran prn. C/o abd pain continue but R states better 06/13. Denies further loose stools. Mild nausea with [...] Resolved Kirstin Escalante APRN.BOAZ documented in this encounterOhio[facility]07-11-2022 NoteHNO ID: [id number] Author: Kirstin Escalante APRN.BOAZ Service: ? Author [...] Cortisone Rash Vitals and Medications reviewed in [facility] system. PHYSICAL EXAMINATION: General appearance: Well appearing, [...] Heartburn Daily PPI Prn mylanta Kirstin Escalante APRN.[facility]AZ[facility] History of Present illness Narrative* Kirstin Escalanet APRN.BOAZ - 09/13/2021 2:55 PM EDT Allan Lara [...] Heartburn Daily PPI Prn mylanta Kirstin Escalante APRN.BOAZ documented in this encounterOhio[facility]07-08-2022 NoteHNO ID: [id number] Author: Kirstin Escalante APRN.CNP Service: ? Author [...] F/u with urology as scheduled Kirstin Escalante APRN.CNPAccess [facility] [place]-2022 History of Present illness Narrative* Kirstin Escalante [...] F/u with urology as scheduled Kirstin Escalante APRN.BARROW WORKER HELPER documented in this encounterOhio[facility]06-14-2022 Evaluation note* Diagnosis Stage 3 chronic kidney disease, unspecified whether stage 3a or 3b CKD (HCC)- Primary Constipation, unspecified constipation type documented in this encounter [facility]06-13-2022 NoteHNO ID: [id number] Author: Kirstin Escalante APRN.BOAZ Service: ? Author [...] Cortisone Rash Vitals and Medications reviewed in [facility] system. PHYSICAL EXAMINATION: General appearance: Well appearing, [...] MOM PRN With current regimen current regimen summergarret SALES ROUTE DRIVER HELPER.[facility]06-13-2022 History of Present illness Narrative* summergarret, SALES ROUTE DRIVER HELPER.BARROW WORKER HELPER - 08/16/2021 3:26 PM EDT Allan Lara [...] Cortisone Rash Vitals and Medications reviewed in [facility] system. PHYSICAL EXAMINATION: General appearance: Well appearing, [...] regimen Kirstin Escalante APRN.BOAZ documented in this encounterOhiohealth [facility] Hospital06-08-2022 NoteHNO ID: [id number] Author: Kirstin Escalante APRN.BOAZ Service: ? Author [...] Cortisone Rash Vitals and Medications reviewed in [facility] system. PHYSICAL EXAMINATION: General appearance: Well appearing, [...] unspecified whether stage 3a or 3b CKD ([facility]) - ICD9: 585.3, ICD10: N18.30 (primary diagnosis) Monitor bmp avoid nephrotoxic meds 2. Renal Mass F/u with urology as scheduled Summer TABATHA Escalante.[facility]06-08-2022 History of Present illness Narrative* Kirstin Ecsalante APRN.BARROW WORKER HELPER - 08/11/2021 9:34 PM EDT Allan Lara [...] MEDICAL HISTORY Diagnosis Date Bipolar 1 disorder ([facility]) Depression DM II (diabetes mellitus, type II), [...] Cortisone Rash Vitals and Medications reviewed in [facility] system. PHYSICAL EXAMINATION: General appearance: Well appearing, [...] scheduled Kirstin Escalante APRN.CNP documented in this encounterOhio[facility]-2022 NoteHNO ID: [id number] Author: Kirstin Escalante APRN.CNP Service: ? Author [...] Constipation Stable on current regimen Kirstin [facility]alante [facility] History of Present illness Narrative* Kirstin Escalante APRN.BOAZ - 07/28/2021 1:36 PM EDT Allan Lara [...] regimen Kirstin Escalante APRN.CNP documented in this encounterOhio[facility]05-19-2022 NoteHNO ID: [id number] Author: Kirstin Escalante APRN.CNP Service: ? Author [...] -Claritin 10 mg daily Negative Covid swab summerane, SALES ROUTE DRIVER HELPER.[facility]05-19-2022 History of Present illness Narrative* Kirstin Escalante APRN.BARROW WORKER HELPER - 07/22/2021 7:48 PM EDT Allan Lara [...] Cortisone Rash Vitals and Medications reviewed in [facility] system. PHYSICAL EXAMINATION: General appearance: Well appearing, [...] swab Kirstin Escalante APRN.CNP documented in this encounterOhiohealth [facility]05-04-2022 NoteHNO ID: [id number] Author: Kirstin Escalante APRN.CNP Service: ? Author [...] 3 Bmp avoid nephrotoxic meds Kirstin Escalante APRN.[facility] [place]04[facility]-2022 NoteHNO ID: [id number] Author: Kirstin Escalante APRN.BARROW WORKER HELPER Service: ? Author Type: Nurse Practitioner Type: [...] Cortisone Rash Vitals and Medications reviewed in [facility] system. PHYSICAL EXAMINATION: General appearance: Well appearing, [...] <130/80 2. Rhinorrhea -Claritin 10 mg daily summergarret, SALES ROUTE DRIVER HELPER.[facility] [place]04-[facility]-2022 History of Present illness Narrative* summer.BARROW WORKER HELPER - 06/24/2021 2:33 PM EDT Allan Lara [...] Cortisone Rash Vitals and Medications reviewed in [facility] system. PHYSICAL EXAMINATION: General appearance: Well appearing, [...] Rhinorrhea -Claritin 10 mg daily Kirstin Escalante APRN.BARROW WORKER HELPER documented in this encounterOhiohealth Doctors Hospital04-18-2022 NoteHNO ID: [id number] Author: Kirstin Escalante APRN.BOAZ Service: ? Author [...] Cortisone Rash Vitals and Medications reviewed in [facility] system. PHYSICAL EXAMINATION: General appearance: Well appearing, [...] nephrology 2. Generalized weakness -PT/OT Kirstin Escalante APRN.[facility]04-18-2022 History of Present illness Narrative* Kirstin Escalante APRN.BARROW WORKER HELPER - 06/21/2021 10:03 AM EDT Allan Lara [...] Cortisone Rash Vitals and Medications reviewed in [facility] system. PHYSICAL EXAMINATION: General appearance: Well appearing, [...] nephrology 2. Generalized weakness -PT/OT Kirstin Escalante APRN.BARROW WORKER HELPER documented in this encounterOhiohealth Doctors Hospital04-14-2022 NoteHNO ID: [id number] Author: Kirstin Escalante APRN.BOAZ Service: ? Author [...] Cortisone Rash Vitals and Medications reviewed in [facility] system. PHYSICAL EXAMINATION: General appearance: Well appearing, [...] K59.00 Stable on current regimen Kirstin Escalante APRN.[facility] [place]04-13-2022 History of Present illness Narrative* Kirstin Escalante [...] regimen Kirstin Escalante APRN.CNP documented in this encounterOhiohealth Doctors Hospital04-08-2022 NoteHNO ID: [id number] Author: Kirstin Escalante APRN.CNP Service: ? Author [...] 1000mg bid 2. HTN Controlled Kirstin Escalante APRN.[facility] [place]04-01-2022 NoteHNO ID: [id number] Author: Kirstin Escalante APRN.BARROW WORKER HELPER Service: ? Author Type: Nurse Practitioner Type: [...] on current meds -psych following Summer TABATHA Escalante.[facility]04-01-2022 History of Present illness Narrative* summer.BARROW WORKER HELPER - 06/04/2021 9:19 AM EDT Allan Lara [...] disorder -stable on current meds -psych following summerN.BARROW WORKER HELPER documented in this encounterOhiohealth Doctors Hospital03-30-2022 NoteHNO ID: [id number] Author: Kirstin Escalante APRN.CNP Service: ? Author [...] 3 Bmp avoid nephrotoxic meds Kirstin Escalante APRN.[facility] [place]03-23-2022 NoteHNO ID: [id number] Author: Kirstin Escalante APRN.BARROW WORKER HELPER Service: ? Author Type: Nurse Practitioner Type: [...] Cortisone Rash Vitals and Medications reviewed in [facility] system. PHYSICAL EXAMINATION: General appearance: Well appearing, [...] loss since Mar -recent hospiralzation -monitor wts -informaticist following Summer TABATHA Escalnate.[facility] [place]03-23-2022 History of Present illness Narrative* Summer TABATHA Escalante.BARROW WORKER HELPER - 05/26/2021 1:01 PM EDT Allan Lara [...] Cortisone Rash Vitals and Medications reviewed in [facility] system. PHYSICAL EXAMINATION: General appearance: Well appearing, [...] loss since Mar -recent hospiralzation -monitor wts -informaticist following Kirstin Escalante APRN.BOAZ documented in this encounterOhiohealth Doctors Hospital03-11-2022 NoteHNO ID: [id number] Author: Kirstin Escalante APRN.CNP Service: ? Author [...] Cortisone Rash Vitals and Medications reviewed in [facility] system. PHYSICAL EXAMINATION: General appearance: Well appearing, [...] nephrology 2. Generalized weakness -PT/OT Kirstin Escalante APRN.[facility] [place]03-[facility]-2022 History of Present illness Narrative* Kirstin Escalante APRN.BARROW WORKER HELPER - 05/14/2021 9:31 PM EST Allan Lara [...] Cortisone Rash Vitals and Medications reviewed in [facility] system. PHYSICAL EXAMINATION: General appearance: Well appearing, [...] nephrology 2. Generalized weakness -PT/OT Kirstin Escalante APRN.BARROW WORKER HELPER documented in this encounterOhiohealth Doctors Hospital03-10-2022 NoteHNO ID: [id number] Author: Kirstin Escalante APRN.BOAZ Service: ? Author [...] Cortisone Rash Vitals and Medications reviewed in [facility] system. PHYSICAL EXAMINATION: General appearance: Well appearing, [...] panel 2.Constipation conitnue current regimen Kirstin Escalante APRN.[facility] [place]03-02-2022 NoteHNO ID: [id number] Author: Kirstin Escalante APRN.BARROW WORKER HELPER Service: ? Author Type: Nurse Practitioner Type: [...] Cortisone Rash Vitals and Medications reviewed in [facility] system. PHYSICAL EXAMINATION: General appearance: Well appearing, [...] 1000mg bid 2. HTN Controlled Kirstin Escalante APRN.[facility] [place]02-28-2022 NoteHNO ID: [id number] Author: Kirstin Escalante APRN.BARROW WORKER HELPER Service: ? Author Type: Nurse Practitioner Type: [...] Cortisone Rash Vitals and Medications reviewed in [facility] system. PHYSICAL EXAMINATION: General appearance: Well appearing, [...] lesion -urology f/u as scheduled Kirstin Escalante APRN.[facility] [place]02-25-2022 NoteHNO ID: [id number] Author: Kirstin Escalante APRN.BARROW WORKER HELPER Service: ? Author Type: Nurse Practitioner Type: [...] K59.01 -stable on current regimen Kirstin Escalante APRN.[facility] [place]02-23-2022 NoteHNO ID: [id number] Author: Kirstin Escalante APRN.BOAZ Service: ? Author [...] on current meds -psych following Summer TABATHA Escalante.[facility]02-21-2022 NotePatient: ALLAN LARA Age: 70 [...] 650 mg = 2 tab(s), PRN, ORAL, U3HYMAA albuterol-ipratropium 2.5 mg-0.5 mg/3 mL inhalation solution = DuoNeb 3 mL, PRN, Inhalation, L9QQJEI RESPIRATORY cloZAPine 100 mg oral tablet 100 [...] 10 mg = 1 tabs, ORAL, QHS [place] 0.65% nasal spray 2 sprays, PRN, Intranasal, [...] (APR 09 19:00) SBP 134 mmHg (APR 09 19:00) DBP 72 mmHg (APR 09:) Eye: Normal conjunctiva. HENT: Normocephalic. Neck: Supple, No jugular venous distention. Respiratory: Lungs are clear to auscultation. Cardiovascular: Normal rate, Regular rhythm, No murmur, No edema. Gastrointestinal: Soft, Non-tender, Non-distended, Normal bowel sounds. Musculoskeletal: No deformity. Integumentary: Warm, Dry. Neurologic: Alert. Psychiatric: Cooperative. Discharge Plan Discharge Summary Plan Discharge Status: fair. Discharge instructions given: to patient. Discharge disposition: discharge to nursing home facility. Prescriptions: reviewed. Diagnosis Acute diarrhea - CZI74-QB R19.7, Medical. Acute renal failure (ARF) - GHO83-WL N17.9, Medical. COVID-19 - VIC56-YE U07.1, Medical. Dehydration - ZTW66-QL E86.0, Medical. Dementia - FJG59-XX F03.90, Medical. Diabetes mellitus - LZG67-HM E11.9, Medical. HTN (hypertension) - ZUY24-JO I10, Medical. Hyperkalemia - FGS57-VC E87.5, Medical. Hyperlipemia - FEW98-YI E78.5, Medical. Kidney neoplasm - IMM26-LJ D49.519, Medical. Multiple falls - PNED [id number], Medical. Severe sepsis - TMK70-DL R65.20, Medical. Tachycardia - PVL80-ZU R00.0, Medical. Education and Follow-up Discharge Planning: Renal US to be done in 6 months; SANDRITA ROSARIO, [place] Physician (Medical) Please follow up in 2 months; JUAN KAPLAN, Urology Within Call for Appointment Follow up for new Flomax prescription, jasso while in the hospital for retention. [facility]02-18-2022 NoteHNO ID: [id number] Author: Kirstin Escalante APRN.BARROW WORKER HELPER Service: ? Author Type: Nurse Practitioner Type: [...] -general surgery consult for gallstones Kirstin Escalante APRN.[facility]AZ[facility] [place]02-14-2022 NoteHNO ID: [id number] Author: Kirstin Escalante APRN.BOAZ Service: ? Author [...] -CBCD BMP General surgery consult Kirstin Escalante APRN.[facility]02-07-2022 NoteHNO ID: [id number] Author: Kirstin Escalante APRN.BARROW WORKER HELPER Service: ? Author Type: Nurse Practitioner Type: Progress Notes Filed: 04/28/2021 2:18 PM Note Text: Allan Lara is a 70 year old male seen today for skilled visit.Returned from acute stay at [facility] for HAYLIE sepsis after send out [...] -avoid nephrotoxic meds -Repeat bmp Summer Boris, SALES ROUTE DRIVER HELPER.[facility]02-03-2022 NoteEXAM: CT Abdomen Without and [...] by: Jo-Ann Hauser MD 04/08/2021 1:47 PM LUMBER CHAIN OFFBEARER [id number] Health St. Vincent Medical CenterComment on above:Order Comment: CT renal protocol for evaluation of renal lesion.Result Comment: Technologist: MS,AL,WCL,KJF Dictated By: JO-ANN HAUSER MD Signed By: JO-ANN HAUSER MD Signed Out: 04/08/21 14:47:[id number] NotePatient: ALLAN LARA Age: 70 years Sex: Male : 1950 Associated Diagnoses: COVID-19; Dementia; Diabetes mellitus; HTN (hypertension); Hyperlipemia; Kidney neoplasm; Multiple falls Author: ROLANDO TUCKER MD Basic Information Source of history: Medical record. Referral source: Emergency department. Chief Complaint - Multiple fall History of Present Illness -Patient is 70-year-old [place] from [place] with MMP including DM2, HTN, HLD, kidney [...] CHLORIDE SYR/VIAL 10ML 3 mL, IV Push, V62MFCUL TAMSULOSIN 0.4MG CAP 0.4 mg 1 caps, ORAL, BID Continuous: (1) SODIUM CHLORIDE 0.9% 1,000 mL 1,000 mL, IV, 1000 mL/hr PRN: (11) ACETAMINOPHEN 325 MG TAB 650 mg 2 tabs, ORAL, Y9BARGJ ACETAMINOPHEN 325 MG TAB 650 mg 2 tabs, ORAL, G2GDXIB ALBUTEROL 0.083% AEROSOL 2.5mg/3ML 2.5 mg 3 mL, Inhalation, L2LGLOO RESPIRATORY DEXTROSE 50% 50ML SYRINGE/VIAL 12.5 g [...] 0.5 TABLET 2.5 mg 1 EA, ORAL, QHS/[id number] Problem list: Active Problems (9) At risk [...] differentiation is normal. There (more content not included)...[facility]01-31-2022 NotePROCEDURE: XR Chest, 1 View CLINICAL [...] by: Dayanna Hernandez MD 04/05/2021 3:22 AM LUMBER CHAIN OFFBEARER Technologist: CV Dictated By: DAYANNA HERNANDEZ MD Signed By: DAYANNA HERNANDEZ MD Signed Out: 04/05/21 04:22:20SM[facility]01-22-2022 NoteHNO ID: [id number] Author: Kirstin Escalante APRN.BARROW WORKER HELPER Service: ? Author Type: Nurse Practitioner Type: [...] <130/80 2. HLD -statin -lft/flp Kirstin Escalante APRN.[facility]PA[facility]01-18-2022 NoteHNO ID: [id number] Author: Kirstin Escalante APRN.BARROW WORKER HELPER Service: ? Author Type: Nurse Practitioner Type: [...] 288.60, ICD10: D72.829 - resolved Kirstin Escalante APRN.[facility] [place]01-14-2022 NoteHNO ID: [id number] Author: Kirstin Escalante APRN.BARROW WORKER HELPER Service: ? Author Type: Nurse Practitioner Type: [...] Cortisone Rash Vitals and Medications reviewed in [facility] system. PHYSICAL EXAMINATION: General appearance: Well appearing, [...] 288.60, ICD10: D72.829 -repeat CBCD Kirstin Escalante APRN.[facility]PA[facility] [place]12-29-2021 NoteHNO ID: [id number] Author: Kirstin Escalante APRN.BARROW WORKER HELPER Service: ? Author Type: Nurse Practitioner Type: [...] Cortisone Rash Vitals and Medications reviewed in [facility] system. PHYSICAL EXAMINATION: General appearance: Well appearing, [...] mg daily Negative Covid swab Kirstin Escalante APRN.[facility]PA[facility] [place]12-10-2021 NoteHNO ID: [id number] Author: Kirstin Escalante APRN.BARROW WORKER HELPER Service: ? Author Type: Nurse Practitioner Type: [...] Cortisone Rash Vitals and Medications reviewed in [facility] system. PHYSICAL EXAMINATION: General appearance: Well appearing, [...] control - Continue current medication. Kirstin Escalante APRN.[facility]12-09-2021 NoteHNO ID: [id number] Author: Kirstin Escalante APRN.BARROW WORKER HELPER Service: ? Author Type: Nurse Practitioner Type: [...] Cortisone Rash Vitals and Medications reviewed in [facility] system. PHYSICAL EXAMINATION: General appearance: Well appearing, [...] Constipation -stable on current regimen Kirstin Escalante APRN.[facility]11-12-2021 NoteHNO ID: [id number] Author: Kirstin Escalante APRN.CNP Service: ? Author [...] -encourage po fluids ,tylenol prn Kirstin Escalante APRN.[facility] [place]11-10-2021 NoteHNO ID: [id number] Author: Kirstin Escalante APRN.BARROW WORKER HELPER Service: ? Author Type: Nurse Practitioner Type: [...] <130/80 2. HLD -statin -lft/flp Kirstin Escalante APRN.[facility] [place]10-29-2021 NoteHNO ID: [id number] Author: Kirstin Escalante APRN.CNP Service: ? Author [...] -med compliant -psych following -stable Summer TABATHA Escalante.[facility]10-18-2021 NoteHNO ID: [id number] Author: Kirstin Escalante APRN.BARROW WORKER HELPER Service: ? Author Type: Nurse Practitioner Type: [...] bid 2. DM2 -metformin -A1C Kirstin Escalante APRN.[facility]10-13-2021 NoteHNO ID: [id number] Author: Kirstin Escalante APRN.CNP Service: ? Author [...] K59.01 -stable on current regimen Kirstin Escalante APRN.[facility] [place]09-29-2021 NoteHNO ID: [id number] Author: Kirstin Escalante APRN.CNP Service: ? Author [...] 7 days -continue amox po Kirstin Escalante APRN.[facility] [place]09-27-2021 NoteHNO ID: [id number] Author: Kirstin Escalante APRN.BARROW WORKER HELPER Service: ? Author Type: Nurse Practitioner Type: [...] Cortisone Rash Vitals and Medications reviewed in [facility] system. PHYSICAL EXAMINATION: General appearance: Well appearing, [...] ICD9: 564.00, ICD10: K59.00 -stable Kirstin Escalante APRN.[facility]09-20-2021 NoteHNO ID: [id number] Author: Kirstin Escalante APRN.BARROW WORKER HELPER Service: ? Author Type: Nurse Practitioner Type: [...] Cortisone Rash Vitals and Medications reviewed in [facility] system. PHYSICAL EXAMINATION: General appearance: Well appearing, [...] -encourage po fluids and rest Summer Afaneh, SALES ROUTE DRIVER HELPER.BARROW WORKER HELPER summer, SALES ROUTE DRIVER HELPER.[facility] 11-21-2020 NoteHNO ID: [id number] Author: Jessi Austin MD Service: ? Author [...] 250.00, ICD10: E11.9 fair control Jessi Austin [facility]09-13-2021 NoteHNO ID: [id number] Author: Kirstin Escalante APRN.BARROW WORKER HELPER Service: ? Author Type: Nurse Practitioner Type: [...] -encourage po fluids ,tylenol prn Kirstin Escalante APRN.[facility]09-09-2021 NoteHNO ID: [id number] Author: Kirstin Escalante APRN.BARROW WORKER HELPER Service: ? Author Type: Nurse Practitioner Type: [...] <130/80 2.Schizoaffective -med compliant -OT Kirstin Escalante APRN.[facility]08-30-2021 NoteHNO ID: [id number] Author: Kirstin Escalante APRN.BOAZ Service: ? Author [...] Cortisone Rash Vitals and Medications reviewed in [facility] system. PHYSICAL EXAMINATION: General appearance: Well appearing, [...] ED visit -f/u with nephrology Kirstin Escalante APRN.[facility]AZ[facility] [place]08-27-2021 NoteHNO ID: [id number] Author: Kirstin Escalante APRN.BARROW WORKER HELPER Service: ? Author Type: Nurse Practitioner Type: [...] Cortisone Rash Vitals and Medications reviewed in [facility] system. PHYSICAL EXAMINATION: General appearance: Well appearing, [...] <130/80 2. HLD -statin -lft/flp Kirstin Escalante APRN.[facility]08-20-2021 NoteHNO ID: [id number] Author: Kirstin Escalante APRN.BARROW WORKER HELPER Service: ? Author Type: Nurse Practitioner Type: [...] Cortisone Rash Vitals and Medications reviewed in [facility] system. PHYSICAL EXAMINATION: General appearance: Well appearing, [...] Z20.822 -Negative rapid -no s/s Kirstin Escalante APRN.[facility]08-18-2021 NoteHNO ID: [id number] Author: Kirstin Escalante APRN.BARROW WORKER HELPER Service: ? Author Type: Nurse Practitioner Type: [...] symptoms -stable on current tx Kirstin Escalante APRN.[facility]08-09-2021 NoteHNO ID: [id number] Author: Kirstin Escalante APRN.BOAZ Service: ? Author [...] HLD -continue statin -monitor FLP/LFT Kirstin Escalante APRN.[facility]08-03-2021 NoteHNO ID: [id number] Author: Kirstin Escalante APRN.BARROW WORKER HELPER Service: ? Author Type: Nurse Practitioner Type: [...] <130/80 2.GERD - protonix 20 mg daily summergarretjunN.[facility]05-19-2021 History of Present illness Narrative* [...] PERIPHERAL IV DATA: Not applicable SIGNED BY: RT Mil(Erasto) July 22, 2020 10:11 AM [facility] Diagnosis Renal mass- Primary Unspecified disorder of kidney and ureter Muscle weakness (generalized) documented in this encounter [facility] note* Diagnosis Essential hypertension- Primary Unspecified essential hypertension Weight loss Loss of weight documented in this encounter [facility] note* Diagnosis Hypothyroidism, unspecified type- Primary Schizoaffective disorder, bipolar type (HCC) Schizoaffective disorder, unspecified condition documented [facility]* Diagnosis Stage 3 chronic kidney disease, unspecified whether stage 3a or 3b CKD (HCC)- Primary Constipation, unspecified constipation type documented in this encounter [facility]* Diagnosis Renal mass- Primary Unspecified disorder of kidney and ureter Muscle weakness (generalized) documented in this encounter [facility]* Diagnosis Essential hypertension- Primary Unspecified essential hypertension Rhinorrhea Other diseases of nasal cavity and sinuses documented in this encounter [facility]* Diagnosis Diabetes mellitus without complication (HCC)- Primary Type II or unspecified type diabetes mellitus without mention of complication, not stated as uncontrolled Constipation, unspecified constipation type documented in this encounter [facility] note* Diagnosis Diabetes mellitus without complication (HCC)- Primary Type II or unspecified type diabetes mellitus without mention of complication, not stated as uncontrolled Hyperlipidemia, unspecified hyperlipidemia type documented in this encounter [facility] note* Diagnosis Diabetes mellitus without complication (HCC)- Primary Type II or unspecified type diabetes mellitus without mention of complication, not stated as uncontrolled Hyperlipidemia, unspecified hyperlipidemia type documented in this encounter [facility] note* Diagnosis Essential hypertension- Primary Unspecified essential hypertension Heartburn documented in this encounter [facility]* Diagnosis Calculus of gallbladder with acute on chronic cholecystitis without obstruction- Primary Diarrhea, unspecified type documented in this encounter [facility]* Diagnosis Essential hypertension- Primary Unspecified essential hypertension Renal mass Unspecified disorder of kidney and ureter documented in this encounter [facility]* Diagnosis Onset Date Resolution Status Acute hypotension acute Acute kidney injury acute COVID acute Diarrhea acute Fall acute Gastroenteritis acute Head injury acute Laceration of eyebrow, left acute Leukocytosis acute Sepsis associated hypotension acute Diabetes mellitus, type II c [facility] Work Phone: Evaluation note* Diagnosis Onset Date Resolution Status Acute hypotension resolved Acute kidney injury resolved Diarrhea resolved Gastroenteritis resolved Head injury resolved Laceration of eyebrow, left resolved Leukocytosis resolved Sepsis associated hypotension resolved [facility] Work Phone: evalurafgf note* Diagnosis Pain Generalized pain [facility] Author Dr. Verma [facility] July 04, 2022 6:02am Note Date/Time July 04, 2022 4:37am [facility] Medical Records Department [address] [place] [address] H&P Exam - Hospitalist 07/04/22 0436 MR#: [id number] Acct: [id number] Name: ALLAN LARA Rep #:[id number] : 1950 71 From: Sreekanth Verma MD PCP: Dr. Simone Messer MD Status:ADM I N Location: ICU ICU01-1 HPI - General General Date of Admission: 07/04/22 Date of Service: 07/04/22 Chief Complaint: Fall HPI Narrative ALLAN LARA, is a 71 M with a significant history of Schizoaffective disorder; delusional disorder; hypothyroidism; hypertension; and neoplasm of right kidney who presents from [facility] with a fall. Also patient sustained laceration [...] doctor who discussed the case primarily with [facility]. [facility] Medical History (Updated [...] 91.2 H, Lymph % (Auto) 3.6 L, [place] % (Auto) 3.7, Eos % (Auto) 0.0, [...] Clarity Clear, Urine pH 5.0, Ur Specific [place] 1.015, Urine Protein 15 H, Urine Glucose [...] Lovenox ordered. Charges/Coding Visit Charges Inpatient E&M: 95516 Init Hosp L3 07/04/22 0602 <Electronically signed by Sreekanth Verma MD> Cosigner Signature (if applicable): CC: Dr. Sreekanth Verma MD; Dr. Simone Messer MD~ Signed [facility] Work Phone: History of Present illness Narrative* incidental finding or renal mass * has renal cysts and calculi * enlarged prostate on tamsulosin * resides in [facility] * history of abn CT scan without [...] defects * Social History * resides in [facility] in [place] * International Prostate Symptom Score (I-PSS) * I-PSS Total Score: 2 * Quality of Life Score: 1 [id number] Work Phone: Summary Purpose Family History No [...] FoundDocuments on File Type Date Recorded Patient Service Station Helper Expl anation Advance Directive(s) 09/05/2017 7:39 AM Advance Directive Response Recorded Date/ Time Name of Medical Power of Canvas Goods Maker jason pelon July 04, 2022 2:52am Living Will No July 04, 2022 2: 52am Power of Canvas Goods Maker Yes July 04, 2022 2:52am Chief Complaint * Renal Mass * KAROLYN Rendon Line [phone] * Office Line [phone] - use only for off hours or [...] section and content) DATE CREATED AUTHOR 01/27/2020 [facility] DATE CREATED AUTHOR AUTHOR'S ORGANIZ ATION 03/19/2021 [facility] DATE CREATED AUTHOR AUTHOR'S ORGANIZ ATION 04/22/2021 [facility] DATE CREATED AUTHOR AUTHOR'S ORGANIZ ATION 05/11/2021 [employer] DATE CREATED AUTHOR AUTHOR'S ORGANIZ ATION 09/21/2021 [facility] DATE CREATED AUTHOR AUTHOR'S ORGANIZ ATION 10/05/2021 [facility] DATE CREATED AUTHOR AUTHOR'S ORGANIZ ATION 11/11/2021 [facility] DATE CREATED AUTHOR AUTHOR'S ORGANIZ ATION 01/15/2025 [facility] Source Comments (unrecognize d section and content) In the event this informatio n is protected by the Federal Confidentiality of Alcohol and Drug Abuse Patient Records regulations: The Federal rules restrict any use of the information to criminally investigate or prosecute any alcohol or drug abuse patient.[facility] Hospital[facility] the event this information is protected by the Federal Confidentiality of Alcohol and Drug Abuse Patient Records regulations: The Federal rules restrict any use of the information to criminally investigate or prosecute any alcohol or drug abuse patient.[facility] HospitalIn the event this information is protected by the Federal Confidentiality of Alcohol and Drug Abuse Patient Records regulations: The Federal rules restrict any use of the information to criminally investigate or prosecute any alcohol or drug abuse patient.[facility] HospitalIn the event this information is protected by the Federal Confidentiality of Alcohol and Drug Abuse Patient Records regulations: The Federal rules restrict any use of the information to criminally investigate or prosecute any alcohol or drug abuse patient.[facility] HospitalIn the event this information is protected by the Federal Confidentiality of Alcohol and Drug Abuse Patient Records regulations: The Federal rules restrict any use of the information to criminally investigate or prosecute any alcohol or drug abuse patient.[facility] HospitalIn the event this information is protected by the Federal Confidentiality of Alcohol and Drug Abuse Patient Records regulations: The Federal rules restrict any use of the information to criminally investigate or prosecute any alcohol or drug abuse patient.[facility] HospitalIn the event this information is protected by the Federal Confidentiality of Alcohol and Drug Abuse Patient Records regulations: The Federal rules restrict any use of the information to criminally investigate or prosecute any alcohol or drug abuse patient.[facility] HospitalIn the event this information is protected by the Federal Confidentiality of Alcohol and Drug Abuse Patient Records regulations: The Federal rules restrict any use of the information to criminally investigate or prosecute any alcohol or drug abuse patient.[facility] HospitalIn the event this information is protected by the Federal Confidentiality of Alcohol and Drug Abuse Patient Records regulations: The Federal rules restrict any use of the information to criminally investigate or prosecute any alcohol or drug abuse patient.[facility] HospitalIn the event this information is protected by the Federal Confidentiality of Alcohol and Drug Abuse Patient Records regulations: The Federal rules restrict any use of the information to criminally investigate or prosecute any alcohol or drug abuse patient.[facility] HospitalIn the event this information is protected by the Federal Confidentiality of Alcohol and Drug Abuse Patient Records regulations: The Federal rules restrict any use of the information to criminally investigate or prosecute any alcohol or drug abuse patient.[facility] HospitalIn the event this information is protected by the Federal Confidentiality of Alcohol and Drug Abuse Patient Records regulations: The Federal rules restrict any use of the information to criminally investigate or prosecute any alcohol or drug abuse patient.[facility] HospitalIn the event this information is protected by the Federal Confidentiality of Alcohol and Drug Abuse Patient Records regulations: The Federal rules restrict any use of the information to criminally investigate or prosecute any alcohol or drug abuse patient.[facility] HospitalIn the event this information is protected by the Federal Confidentiality of Alcohol and Drug Abuse Patient Records regulations: The Federal rules restrict any use of the information to criminally investigate or prosecute any alcohol or drug abuse patient.[facility] HospitalIn the event this information is protected by the [facility] Confidentiality of Alcohol and Drug Abuse Patient Records regulations: The Federal rules restrict any use of the information to criminally investigate or prosecute any alcohol or drug abuse patient.[facility] HospitalIn the event this information is protected by the Federal Confidentiality of Alcohol and Drug Abuse Patient Records regulations: The Federal rules restrict any use of the information to criminally investigate or prosecute any alcohol or drug abuse patient.[facility] Care Teams (unrecognized sec tion and content) Plastics Engineer Relationship Specialty Start Date End Date Loretta Rolle Paco [address] [place] [address] PCP - General Family Practice 09/05/17 Plastics Engineer Relationship Specialty Start Date End Date Loretta Rolle [address] [place] [address] PCP - General Family Practice 09/05/17 Plastics Engineer Relationship Specialty Start Date End Date Loretta Rolle [address] [place] [address] PCP - General Family Practice 09/05/17 Plastics Engineer Relationship Specialty Start Date End Date Loretta Rolle[address] [place] [address] PCP - General Family Practice 09/05/17 Team Status: Active Member Role Status Dates [facility] Family Provider Active Dr. Simone [...] Provi blanca, Attending Provider, Referring Provider Active Plastics Engineer Relationship Specialty Start Date End Date King Loretta Paco, BOAZ [address] [place] [address] PCP - General Family Medicine 09/05/17 Goals [...] BE BASED ON THE PRIMARY CLINICAL RECORDS. [employer] provides no warranty or guarantee of the accuracy or completeness of information in this document.
[2025-02-04 18:11] LABS: Troponin T High Sens 2 HR 31 ng/L (<=22)
[2025-02-04] MEDS: Ceftriaxone 2 GM in 0.9% Normal Saline (50mL MB+) 50 ML IV (18:18)
--- NOTE | 2025-02-04 18:37 | PCM.HP.STD ---
HPI - General General Date of Service: 02/04/25 Chief Complaint: Confusion HPI Narrative ALLAN LARA, is a 74 M who presents with confusion. This is a 74-year-old male with a history of dementia who presents from his care home after having vomited. Patient was noted to be hypoxic but his oxygen was not in place. Patient is on 2 L nasal cannula continuous. Patient was confused. Patient unable to write any history given his confusion so the history is obtained through the emergency room physician. Patient underwent a workup and that showed that his white count was elevated at 15, his lactic acid was 2.1, his CO2 was down to 16.6 with an elevated anion gap of 24. He had troponin elevations of 36 then down to 31. He had a urinalysis that was concentrated with specific gravity of 1.025, positive ketones, positive nitrates. He did receive ceftriaxone in the emergency room. In addition to the antibiotics, he did receive IV fluids. But with his metabolic derangements, worsening confusion, the hospitalist service was contacted for admission. 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 07/04/22 Unknown History mcg (5,000 unit) tablet (Vitamin D3) ipratropium 0.5 mg-albuterol 3 mg 3 ml inhalation Q4H PRN PRN 07/04/22 Unknown History (2.5 mg base)/3 mL nebulization Wheezing soln omeprazole 20 mg capsule,delayed 20 mg PO DAILY gerd 07/04/22 Unknown History release clonazepam 0.5 mg tablet 0.5 mg PO TID 10/31/25 Unknown History cyanocobalamin (vitamin B-12) 1,000 mcg PO DAILY 01/03/25 Unknown History 1,000 mcg capsule fluoxetine 20 mg capsule 20 mg PO DAILY 01/03/25 Unknown History trazodone 100 mg tablet 100 mg PO QHS insomnia 01/03/25 Unknown History bisacodyl 10 mg rectal suppository 10 mg MO DAILY #0 ea 01/07/25 Unknown Rx sennosides 8.6 mg-docusate sodium 2 tab PO BID #0 tabs 01/07/25 Unknown Rx 50 mg tablet (Stimulant Laxative Plus) clozapine 100 mg tablet 150 mg PO QHS 02/04/25 Unknown History clozapine 50 mg tablet (Clozaril) 100 mg PO DAILY 02/04/25 Unknown History levothyroxine 50 mcg tablet 50 mcg PO DAILY 02/04/25 Unknown History Allergy/AdvReac Type Severity Reaction Status Date / Time No Known Allergies Allergy Verified 02/04/25 15:35 Family History unable to obtain unable to obtain Surgical History unable to obtain unable to obtain Social History housing: house Smoking Status: Never smoker ROS Review of Systems ROS Unobtainable: due to encephalopathy Vital Signs Vital Signs Vital Signs: 02/04/25 15:30 02/04/25 15:50 02/04/25 15:50 Temperature 36.5 C L 36.5 C L Temperature Source Oral Axillary Pulse Rate 89 69 Respiratory Rate 16 16 Respiratory Effort Respiratory Depth Respiratory Pattern Blood Pressure 135/120 H 138/100 H Blood Pressure Mean 125 112 Pulse Ox 98 100 100 Oxygen Delivery Method Room Air Nasal Cannula Nasal Cannula Oxygen Flow Rate (L/min) 2 2 02/04/25 15:50 02/04/25 16:29 02/04/25 17:30 Temperature 36.6 C Temperature Source Axillary Pulse Rate 97 100 Respiratory Rate 35 H 27 H Respiratory Effort Short of Breath Labored Respiratory Depth Shallow Respiratory Pattern Tachypnea Blood Pressure 147/54 H 132/93 H Blood Pressure Mean 85 106 Pulse Ox 100 100 Oxygen Delivery Method Nasal Cannula Nasal Cannula Nasal Cannula Oxygen Flow Rate (L/min) 2 2 2 Weight Weight: 61.6 kg Body Mass Index (BMI) 20.0 Physical Exam Const Constitutional Narrative: Awake. Confused. Does not follow commands. Does not answer questions properly. Orientation / Consciousness: confused HEENT HEENT Narrative: Edentulous. Mucous membranes are moist. Temporal wasting. Eyes Eyes Narrative: No icterus Resp normal respiratory effort, no retractions, no use of accessory muscles and clear to auscultation bilaterally Cardio regular rate, regular rhythm, S1 normal heart sound and S2 normal heart sound GI normal to inspection, nondistended, normoactive bowel sounds, soft to palpation, non-tender and non-distended Extremity normal to inspection Extremity Narrative: No edema Neuro moves all extremities Sensorium / Orientation: awake; Negative for alert Results Lab / Micro Data Attestation: I reviewed the patient's lab results. 02/04/25 15:47 02/04/25 15:47 Labs: Laboratory Results - last 24 hr 02/04/25 15:47: WBC 15.0 H, RBC 4.54 L, Hgb 12.9 L, Hct 40.3, MCV 88.8, MCH 28.4, MCHC 32.0, RDW Std Deviation 43.9, RDW Coeff of Kirk 13.9, Plt Count 389, MPV 11.4, Immature Gran % (Auto) 1.500 H, Neut % (Auto) 72.9 H, Lymph % (Auto) 17.7 L, [place] % (Auto) 7.1, Eos % (Auto) 0.1, Baso % (Auto) 0.7, Absolute Neuts (auto) 10.9 H, Absolute Lymphs (auto) 2.65, Nucleated RBC % 0, Sodium 150 H, Potassium 3.4, Chloride 110 H, Carbon Dioxide 16.6 L, Anion Gap 24 H, BUN 28 H, Creatinine 1.24 H, Estim Creat Clear Calc 44.16 L, Est GFR (MDRD) Non-Af 60, BUN/Creatinine Ratio 22.9 H, Glucose 120 H, Lactic Acid 2.1 H*, Calcium 9.5, Total Bilirubin 0.68, AST 14, ALT 6, Alkaline Phosphatase 82, Troponin T High Sens 36 H D, Total Protein 6.7, Albumin 3.6, Globulin 3.1, Albumin/Globulin Ratio 1.2 02/04/25 16:09: POC Glucose 106 02/04/25 17:28: Urine Color Yellow, Urine Clarity Clear, Urine pH 6.0, Ur Specific [place] 1.025, Urine Protein 30 H, Urine Glucose (UA) Normal, Urine Ketones 150 A*, Urine Occult Blood 10 H, Urine Nitrite Positive H, Urine Bilirubin 1 H, Urine Urobilinogen 1 H, Ur Leukocyte Esterase 25 H, Urine RBC 0 SEEN, Urine WBC 0-5 SEEN, Ur Squamous Epith Cells 0 SEEN, Urine Bacteria 1+, Urine Mucus 0 SEEN 02/04/25 17:49: Troponin T Hi Sens 2 Hr 31 H ABG Data ABG results: ABG 02/04/25 16:00 Specimen Type MELISSA Sample Site Not entered VBG pH 7.58 H VBG pO2 34 VBG HCO3 16 L VBG Total CO2 17 L VBG O2 Sat (Calc) 78 H VBG Base Excess -6 L POC Mix VBG pCO2 Pt Tmp 17.1 L* O2 Delivery Device Not entered Crit Call To/Read Back Yes Blood Gas Notified Whom [facility] Blood Gas Notified Time 16:01:54 Imaging Radiology Impression Chest X-Ray 02/04/25 16:00 IMPRESSION: No focal consolidations. Mild pulmonary vascular congestion. Reading Location: [facility] Assessment & Plan Assessment/Plan (1) Metabolic encephalopathy: PLAN: Suspected dehydration in a patient with possible dementia Will give IV fluids and monitor Avoid potentiating medications. Particularly at the care home he takes clozapine clonazepam, fluoxetine which will be held. (2) Hyponatremia: PLAN: Suspect due to dehydration. Patient received normal saline fluid in the emergency room. Will give him 0.45% saline and reevaluate. (3) Ketosis: PLAN: I suspect due to dehydration. Will monitor for now. Patient is currently stable on his oxygen which she is not properly wearing at present but his pulse ox is 100% currently. No need for sodium HCO3 at this time. (4) Bacteriuria: PLAN: I do not feel the patient actually has a urinary tract infection but urine culture has been sent. Patient on ceftriaxone. I would hold off on any additional antibiotics at this time. His urine looks concentrated with specific gravity 1.025. PLAN: Plan Hypothyroidism: Continue levothyroxine Hypertension: Continue with amlodipine with hold parameters VTE prophylaxis with enoxaparin CODE STATUS: Full CODE STATUS from care home. Charges/Coding Visit Charges Inpatient E&M: 72238 Init Hosp L2
--- OUTSIDE RECORDS SUMMARY | 2025-02-04 19:08 | XMS RPT_ITS | CCD ---
Author Organization [facility] ion Partnership [facility] Care Team Providers Care Able Bodied Tankerman Name Role Phone Jessi Austin Unavailable Loretta Rolle Primary Care Provider Dr. Simone Messer Primary Care Provider Dr. Mati Shaikh Emergency Provider Dr. Sreekanth Verma Admit Provider Dr. Sreekanth Verma Other Provider Dr. Donald Valdes Other Provider Dr. Peyton rCawford Other Provider [phone] Jerald Levnie Attending Provider Dr. Peyton Crawford Attending Provider [phone] Dr. Peyton Crawford Referring Provider Loretta Rolle CNP Primary Care Provider [phone] Kendra Herrera Attending Unavailable Morris Paulino Consulting [...] (16 sources) Cortisone Drug Allergy 04-12-2010 [facility] Work Phone: Medications Current Medications Medication [...] Start: 09-23-2016 [facility] FLUoxetine HCl (PROZAC) 40 mg capsule Take 1 capsule by mouth once daily. 0 09/23/2016 Active Comment on above: [facility]. hydrOXYzine hydrochloride 25 mg oral [...] Comment on above: Take 1 tablet by [facility] once daily. mag hydrox/aluminum hyd/simeth (ANTACID LIQUID [...] daily at bedtime. omega-3 acid ethyl esters (retirement) 1000 mg oral capsule (16 sources) omega-3 [...] Start: 05-10-2021 take 1 capsule by mo [facility] once daily before breakfast Omeprazole 20 MG [...] 29-Jul-2020 Active take 2 tablets by [facility] four hours as needed acetaminophen (PHARBETOL) [...] take 2 spray(s) nasal route twice daily [place] Nasal [place] 0.65 % Nasal Solution USE 2 SPRAYS [...] Profile (BMP )on 01-11-2025 BUN Normal 4-19 [facility] Comment on above: Result Comment: Canc elled via OM: Order cancelled - Patient discharged Performed By: #### L 100.0100, L500.2500 #### [facility] [address] [facility] [address] BUN/CRE Normal 10-20 [facility] Comment on above: Result Comment: Canc elled via OM: Order cancelled - Patient discharged Performed By: #### L 100.0100, L500.2500 #### [facility] [address] [place], [address] Calcium Normal 7.6-11.0 [facility] Comment on above: Result Comment: Canc elled via OM: Order cancelled - Patient discharged Performed By: #### L 100.0100, L500.2500 #### [facility] [address] [place], [address] CL Normal 98-108 [facility] Comment on above: Result Comment: Canc elled via OM: Order cancelled - Patient discharged Performed By: #### L 100.0100, L500.2500 #### [facility] [address] [place], [address] CO2 Normal 21.0-32.0 [facility] Comment on above: Result Comment: Canc elled via OM: Order cancelled - Patient discharged Performed By: #### L 100.0100, L500.2500 #### [facility] [address] [place], [address] CREAT,SERUM Normal 0.70-1.20 [facility] Comment on above: Result Comment: Canc elled via OM: Order cancelled - Patient discharged Performed By: #### L 100.0100, L500.2500 #### [facility] [address] [place], [address] eGFR Normal >60 [facility] Comment on above: Result Comment: Canc elled via OM: Order cancelled - Patient discharged Performed By: #### L 100.0100, L500.2500 #### [facility] [address] [place], [address] GAP Normal 5-15 [facility] Comment on above: Result Comment: Canc elled via OM: Order cancelled - Patient discharged Performed By: #### L 100.0100, L500.2500 #### [facility] [address] [place], [address] GLU Normal 70-99 [facility] Comment on above: Result Comment: Canc elled via OM: Order cancelled - Patient discharged Performed By: #### L 100.0100, L500.2500 #### [facility] [address] [place], [address] Potassium Normal 3.3-5.1 [facility] Comment on above: Result Comment: Canc elled via OM: Order cancelled - Patient discharged Performed By: #### L 100.0100, L500.2500 #### [facility] [address] [place], [address] Basic Metabolic Profile (BMP) Normal 133-145 [facility] Comment on above: Result Comment: Canc elled via OM: Order cancelled - Patient discharged Performed By: #### L 100.0100, L500.2500 #### [facility] [address] [place], [address] CBC W/Diff, Automatedon 11-0 -2024 Absolute Neut Normal 2.0-7.7 [facility] Comment on above: Result Comment: Canc elled via OM: Order cancelled - Patient discharged Performed By: #### L 100.0100, L500.2500 #### [facility] [address] [place], [address] HCT Normal 40-54 [facility] Comment on above: Result Comment: Canc elled via OM: Order cancelled - Patient discharged Performed By: #### L 100.0100, L500.2500 #### [facility] [address] [place], [address] HGB Normal 13.0-16.5 [facility] Comment on above: Result Comment: Canc elled via OM: Order cancelled - Patient discharged Performed By: #### L 100.0100, L500.2500 #### [facility] [address] [place], [address] MCH Normal 27.0-32.0 [facility] Comment on above: Result Comment: Canc elled via OM: Order cancelled - Patient discharged Performed By: #### L 100.0100, L500.2500 #### [facility] [address] [place], [address] MCHC Normal 32-36 [facility] Comment on above: Result Comment: Canc elled via OM: Order cancelled - Patient discharged Performed By: #### L 100.0100, L500.2500 #### [facility] [address] [place], [address] MCV Normal 80-94 [facility] Comment on above: Result Comment: Canc elled via OM: Order cancelled - Patient discharged Performed By: #### L 100.0100, L500.2500 #### [facility] [address] [place], [address] NEUT% Normal 47-70 [facility] Comment on above: Result Comment: Canc elled via OM: Order cancelled - Patient discharged Performed By: #### L 100.0100, L500.2500 #### [facility] [address] [place], [address] PLT Normal 150-450 [facility] Comment on above: Result Comment: Canc elled via OM: Order cancelled - Patient discharged Performed By: #### L 100.0100, L500.2500 #### [facility] [address] [place], [address] RBC Normal 4.6-6.2 [facility] Comment on above: Result Comment: Canc elled via OM: Order cancelled - Patient discharged Performed By: #### L 100.0100, L500.2500 #### [facility] [address] [place], [address] RDW CV Normal 11.6-14.6 [facility] Comment on above: Result Comment: Canc elled via OM: Order cancelled - Patient discharged Performed By: #### L 100.0100, L500.2500 #### [facility] [address] [place], [address] RDW SD Normal 35.1-43.9 [facility] Comment on above: Result Comment: Canc elled via OM: Order cancelled - Patient discharged Performed By: #### L 100.0100, L500.2500 #### [facility] [address] [place], [address] WBC Normal 4.4-11.0 [facility] Comment on above: Result Comment: Canc elled via OM: Order cancelled - Patient discharged Performed By: #### L 100.0100, L500.2500 #### [facility] [address] [place], [address] Basic Metabolic Profile (BMP )on 01-10-2025 BUN Normal 4-19 [facility] Comment on above: Result Comment: Canc elled via OM: Order cancelled - Patient discharged Performed By: #### L 100.0100, L500.2500 #### [facility] [address] [place], [address] BUN/CRE Normal 10-20 [facility] Comment on above: Result Comment: Canc elled via OM: Order cancelled - Patient discharged Performed By: #### L 100.0100, L500.2500 #### [facility] [address] [place], [address] Calcium Normal 7.6-11.0 [facility] Comment on above: Result Comment: Canc elled via OM: Order cancelled - Patient discharged Performed By: #### L 100.0100, L500.2500 #### [facility] [address] [place], [address] CL Normal 98-108 [facility] Comment on above: Result Comment: Canc elled via OM: Order cancelled - Patient discharged Performed By: #### L 100.0100, L500.2500 #### [facility] [address] [place], [address] CO2 Normal 21.0-32.0 [facility] Comment on above: Result Comment: Canc elled via OM: Order cancelled - Patient discharged Performed By: #### L 100.0100, L500.2500 #### [facility] [address] [place], [address] CREAT,SERUM Normal 0.70-1.20 [facility] Comment on above: Result Comment: Canc elled via OM: Order cancelled - Patient discharged Performed By: #### L 100.0100, L500.2500 #### [facility] [address] [place], [address] eGFR Normal >60 [facility] Comment on above: Result Comment: Canc elled via OM: Order cancelled - Patient discharged Performed By: #### L 100.0100, L500.2500 #### [facility] [address] [place], [address] GAP Normal 5-15 [facility] Comment on above: Result Comment: Canc elled via OM: Order cancelled - Patient discharged Performed By: #### L 100.0100, L500.2500 #### [facility] [address] [place], [address] GLU Normal 70-99 [facility] Comment on above: Result Comment: Canc elled via OM: Order cancelled - Patient discharged Performed By: #### L 100.0100, L500.2500 #### [facility] [address] [place], [address] Potassium Normal 3.3-5.1 [facility] Comment on above: Result Comment: Canc elled via OM: Order cancelled - Patient discharged Performed By: #### L 100.0100, L500.2500 #### [facility] [address] [place], [address] Basic Metabolic Profile (BMP) Normal 133-145 [facility] Comment on above: Result Comment: Canc elled via OM: Order cancelled - Patient discharged Performed By: #### L 100.0100, L500.2500 #### [facility] [address] [place], [address] CBC W/Diff, Automatedon 11-0 Absolute Neut Normal 2.0-7.7 [facility] Comment on above: Result Comment: Canc elled via OM: Order cancelled - Patient discharged Performed By: #### L 100.0100, L500.2500 #### [facility] [address] [place], [address] HCT Normal 40-54 [facility] Comment on above: Result Comment: Canc elled via OM: Order cancelled - Patient discharged Performed By: #### L 100.0100, L500.2500 #### [facility] [address] [place], [address] HGB Normal 13.0-16.5 [facility] Comment on above: Result Comment: Canc elled via OM: Order cancelled - Patient discharged Performed By: #### L 100.0100, L500.2500 #### [facility] [address] [place], [address] MCH Normal 27.0-32.0 [facility] Comment on above: Result Comment: Canc elled via OM: Order cancelled - Patient discharged Performed By: #### L 100.0100, L500.2500 #### [facility] [address] [place], [address] MCHC Normal 32-36 [facility] Comment on above: Result Comment: Canc elled via OM: Order cancelled - Patient discharged Performed By: #### L 100.0100, L500.2500 #### [facility] [address] [place], [address] MCV Normal 80-94 [facility] Comment on above: Result Comment: Canc elled via OM: Order cancelled - Patient discharged Performed By: #### L 100.0100, L500.2500 #### [facility] [address] [place], [address] NEUT% Normal 47-70 [facility] Comment on above: Result Comment: Canc elled via OM: Order cancelled - Patient discharged Performed By: #### L 100.0100, L500.2500 #### [facility] [address] [place], [address] PLT Normal 150-450 [facility] Comment on above: Result Comment: Canc elled via OM: Order cancelled - Patient discharged Performed By: #### L 100.0100, L500.2500 #### [facility] [address] [place], [address] RBC Normal 4.6-6.2 [facility] Comment on above: Result Comment: Canc elled via OM: Order cancelled - Patient discharged Performed By: #### L 100.0100, L500.2500 #### [facility] [address] [place], [address] RDW CV Normal 11.6-14.6 [facility] Comment on above: Result Comment: Canc elled via OM: Order cancelled - Patient discharged Performed By: #### L 100.0100, L500.2500 #### [facility] [address] [place], [address] RDW SD Normal 35.1-43.9 [facility] Comment on above: Result Comment: Canc elled via OM: Order cancelled - Patient discharged Performed By: #### L 100.0100, L500.2500 #### [facility] [address] [place], [address] WBC Normal 4.4-11.0 [facility] Comment on above: Result Comment: Canc elled via OM: Order cancelled - Patient discharged Performed By: #### L 100.0100, L500.2500 #### [facility] [address] [place], [address] Basic Metabolic Profile (BMP )on 01-09-2025 BUN Normal 4-19 [facility] Comment on above: Result Comment: Canc elled via OM: Order cancelled - Patient discharged Performed By: #### L 100.0100, L500.2500 #### [facility] [address] [place], [address] BUN/CRE Normal 10-20 [facility] Comment on above: Result Comment: Canc elled via OM: Order cancelled - Patient discharged Performed By: #### L 100.0100, L500.2500 #### [facility] [address] [place], [address] Calcium Normal 7.6-11.0 [facility] Comment on above: Result Comment: Canc elled via OM: Order cancelled - Patient discharged Performed By: #### L 100.0100, L500.2500 #### [facility] [address] [place], [address] CL Normal 98-108 [facility] Comment on above: Result Comment: Canc elled via OM: Order cancelled - Patient discharged Performed By: #### L 100.0100, L500.2500 #### [facility] [address] [place], [address] CO2 Normal 21.0-32.0 [facility] Comment on above: Result Comment: Canc elled via OM: Order cancelled - Patient discharged Performed By: #### L 100.0100, L500.2500 #### [facility] [address] [place], [address] CREAT,SERUM Normal 0.70-1.20 [facility] Comment on above: Result Comment: Canc elled via OM: Order cancelled - Patient discharged Performed By: #### L 100.0100, L500.2500 #### [facility] [address] [place], [address] eGFR Normal >60 [facility] Comment on above: Result Comment: Canc elled via OM: Order cancelled - Patient discharged Performed By: #### L 100.0100, L500.2500 #### [facility] [address] [place], [address] GAP Normal 5-15 [facility] Comment on above: Result Comment: Canc elled via OM: Order cancelled - Patient discharged Performed By: #### L 100.0100, L500.2500 #### [facility] [address] [place], [address] GLU Normal 70-99 [facility] Comment on above: Result Comment: Canc elled via OM: Order cancelled - Patient discharged Performed By: #### L 100.0100, L500.2500 #### [facility] [address] [place], [address] Potassium Normal 3.3-5.1 [facility] Comment on above: Result Comment: Canc elled via OM: Order cancelled - Patient discharged Performed By: #### L 100.0100, L500.2500 #### [facility] [address] [place], [address] Basic Metabolic Profile (BMP) Normal 133-145 [facility] Comment on above: Result Comment: Canc elled via OM: Order cancelled - Patient discharged Performed By: #### L 100.0100, L500.2500 #### [facility] [address] [place], [address] CBC W/Diff, Automatedon 11-0 -2024 Absolute Neut Normal 2.0-7.7 [facility] Comment on above: Result Comment: Canc elled via OM: Order cancelled - Patient discharged Performed By: #### L 100.0100, L500.2500 #### [facility] [address] [place], [address] HCT Normal 40-54 [facility] Comment on above: Result Comment: Canc elled via OM: Order cancelled - Patient discharged Performed By: #### L 100.0100, L500.2500 #### [facility] [address] [place], [address] HGB Normal 13.0-16.5 [facility] Comment on above: Result Comment: Canc elled via OM: Order cancelled - Patient discharged Performed By: #### L 100.0100, L500.2500 #### [facility] [address] [place], [address] MCH Normal 27.0-32.0 [facility] Comment on above: Result Comment: Canc elled via OM: Order cancelled - Patient discharged Performed By: #### L 100.0100, L500.2500 #### [facility] [address] [place], [address] MCHC Normal 32-36 [facility] Comment on above: Result Comment: Canc elled via OM: Order cancelled - Patient discharged Performed By: #### L 100.0100, L500.2500 #### [facility] [address] [place], [address] MCV Normal 80-94 [facility] Comment on above: Result Comment: Canc elled via OM: Order cancelled - Patient discharged Performed By: #### L 100.0100, L500.2500 #### [facility] [address] [place], [address] NEUT% Normal 47-70 [facility] Comment on above: Result Comment: Canc elled via OM: Order cancelled - Patient discharged Performed By: #### L 100.0100, L500.2500 #### [facility] [address] [place], [address] PLT Normal 150-450 [facility] Comment on above: Result Comment: Canc elled via OM: Order cancelled - Patient discharged Performed By: #### L 100.0100, L500.2500 #### [facility] [address] [place], [address] RBC Normal 4.6-6.2 [facility] Comment on above: Result Comment: Canc elled via OM: Order cancelled - Patient discharged Performed By: #### L 100.0100, L500.2500 #### [facility] [address] [place], [address] RDW CV Normal 11.6-14.6 [facility] Comment on above: Result Comment: Canc elled via OM: Order cancelled - Patient discharged Performed By: #### L 100.0100, L500.2500 #### [facility] [address] [place], [address] RDW SD Normal 35.1-43.9 [facility] Comment on above: Result Comment: Canc elled via OM: Order cancelled - Patient discharged Performed By: #### L 100.0100, L500.2500 #### [facility] [address] [place], [address] WBC Normal 4.4-11.0 [facility] Comment on above: Result Comment: Canc elled via OM: Order cancelled - Patient discharged Performed By: #### L 100.0100, L500.2500 #### [facility] [address] [place], [address] Basic Metabolic Profile (BMP )on 01-08-2025 BUN Normal 4-19 [facility] Comment on above: Result Comment: Canc elled via OM: Order cancelled - Patient discharged Performed By: #### L 499.0043 #### [facility] [address] [place], [address] BUN/CRE Normal 10-20 [facility] Comment on above: Result Comment: Canc elled via OM: Order cancelled - Patient discharged Performed By: #### L 499.0043 #### [facility] [address] [place], [address] Calcium Normal 7.6-11.0 [facility] Comment on above: Result Comment: Canc elled via OM: Order cancelled - Patient discharged Performed By: #### L 499.0043 #### [facility] [address] [place], [address] CL Normal 98-108 [facility] Comment on above: Result Comment: Canc elled via OM: Order cancelled - Patient discharged Performed By: #### L 499.0043 #### [facility] [address] [place], [address] CO2 Normal 21.0-32.0 [facility] Comment on above: Result Comment: Canc elled via OM: Order cancelled - Patient discharged Performed By: #### L 499.0043 #### [facility] [address] [place], [address] CREAT,SERUM Normal 0.70-1.20 [facility] Comment on above: Result Comment: Canc elled via OM: Order cancelled - Patient discharged Performed By: #### L 499.0043 #### [facility] [address] [place], [address] eGFR Normal >60 [facility] Comment on above: Result Comment: Canc elled via OM: Order cancelled - Patient discharged Performed By: #### L 499.0043 #### [facility] [address] [place], [address] GAP Normal 5-15 [facility] Comment on above: Result Comment: Canc elled via OM: Order cancelled - Patient discharged Performed By: #### L 499.0043 #### [facility] [address] [place], [address] GLU Normal 70-99 [facility] Comment on above: Result Comment: Canc elled via OM: Order cancelled - Patient discharged Performed By: #### L 499.0043 #### [facility] [address] [place], [address] Potassium Normal 3.3-5.1 [facility] Comment on above: Result Comment: Canc elled via OM: Order cancelled - Patient discharged Performed By: #### L 499.0043 #### [facility] [address] [place], [address] Basic Metabolic Profile (BMP) Normal 133-145 [facility] Comment on above: Result Comment: Canc elled via OM: Order cancelled - Patient discharged Performed By: #### L 499.0043 #### [facility] [address] [place], [address] CBC W/Diff, Automatedon 11-0 5-2024 Absolute Neut Normal 2.0-7.7 [facility] Comment on above: Result Comment: Canc elled via OM: Order cancelled - Patient discharged Performed By: #### L 499.0043 #### [facility] [address] [place], [address] HCT Normal 40-54 [facility] Comment on above: Result Comment: Canc elled via OM: Order cancelled - Patient discharged Performed By: #### L 499.0043 #### [facility] [address] [place], [address] HGB Normal 13.0-16.5 [facility] Comment on above: Result Comment: Canc elled via OM: Order cancelled - Patient discharged Performed By: #### L 499.0043 #### [facility] [address] [place], [address] MCH Normal 27.0-32.0 [facility] Comment on above: Result Comment: Canc elled via OM: Order cancelled - Patient discharged Performed By: #### L 499.0043 #### [facility] [address] [place], [address] MCHC Normal 32-36 [facility] Comment on above: Result Comment: Canc elled via OM: Order cancelled - Patient discharged Performed By: #### L 499.0043 #### [facility] [address] [place], [address] MCV Normal 80-94 [facility] Comment on above: Result Comment: Canc elled via OM: Order cancelled - Patient discharged Performed By: #### L 499.0043 #### [facility] [address] [place], [address] NEUT% Normal 47-70 [facility] Comment on above: Result Comment: Canc elled via OM: Order cancelled - Patient discharged Performed By: #### L 499.0043 #### [facility] [address] [place], [address] PLT Normal 150-450 [facility] Comment on above: Result Comment: Canc elled via OM: Order cancelled - Patient discharged Performed By: #### L 499.0043 #### [facility] [address] [place], [address] RBC Normal 4.6-6.2 [facility] Comment on above: Result Comment: Canc elled via OM: Order cancelled - Patient discharged Performed By: #### L 499.0043 #### [facility] [address] [place], [address] RDW CV Normal 11.6-14.6 [facility] Comment on above: Result Comment: Canc elled via OM: Order cancelled - Patient discharged Performed By: #### L 499.0043 #### [facility] [address] [place], [address] RDW SD Normal 35.1-43.9 [facility] Comment on above: Result Comment: Canc elled via OM: Order cancelled - Patient discharged Performed By: #### L 499.0043 #### [facility] [address] [place], [address] WBC Normal 4.4-11.0 [facility] Comment on above: Result Comment: Canc elled via OM: Order cancelled - Patient discharged Performed By: #### L 499.0043 #### [facility] [address] [place], [address] Culture, Blood (WB)on 2024 CUB Blood cultures x2, from two different sites No growth in 5 days. Normal [facility] Comment on above: Performed By: #### M 200.1000 ####[facility] [address] [place], [address] Basic Metabolic Profile (BMP )on 01-07-2025 BUN/CRE 18.3 RATIO Normal 10-20 [facility] Comment on above: Performed By: #### L 100.0100, L500.2500 ####[facility] [address] [place], [address] Calcium [Mass/Vol] 8.6 mg/dL Normal 7.6-11.0 [facility] Comment on above: Performed By: #### L 100.0100, L500.2500 ####[facility] [address] [place], [address] Chloride [Moles/Vol] 109 mmol/L High 98-108 [facility] Comment on above: Performed By: #### L 100.0100, L500.2500 ####[facility] [address] [place], [address] CO2 [Moles/Vol] 21.5 mmol/L Normal 21.0-32.0 [facility] Comment on above: Performed By: #### L 100.0100, L500.2500 ####[facility] [address] [place], [address] Creatinine [Mass/Vol] 1.04 mg/dL Normal 0.70-1.20 [facility] Comment on above: Performed By: #### L 100.0100, L500.2500 ####[facility] [address] [place], [address] ECRCL 70.24 ml/min Normal 50-250 [facility] Comment on above: Performed By: #### L 100.0100, L500.2500 ####[facility] [address] [place], [address] GAP 11 Normal 5-15 [facility] Comment on above: Performed By: #### L 100.0100, L500.2500 ####[facility] [address] [place], [address] GFR/1.73 sq M.predicted among non-blacks MDRD (S/P/Bld) [Vol rate/Area] 74 mL/min/{1.73_m2} Normal >60 [facility] Comment on above: Result Comment: mL/m in/1.73m2 CKD-EPI Creatinine Equation (2020) Performed By: #### L 100.0100, L500.2500 ####[facility] [address] [place], [address] Glucose [Mass/Vol] 111 mg/dL High 70-99 [facility] Comment on above: Performed By: #### L 100.0100, L500.2500 ####[facility] [address] [place], [address] Potassium [Moles/Vol] 3.5 mmol/L Normal 3.3-5.1 [facility] Comment on above: Performed By: #### L 100.0100, L500.2500 ####[facility] [address] [place], [address] Sodium [Moles/Vol] 142 mmol/L Normal 133-145 [facility] Comment on above: Performed By: #### L 100.0100, L500.2500 ####[facility] [address] [place], [address] Urea nitrogen [Mass/Vol] 19 mg/dL Normal 4-19 [facility] Comment on above: Performed By: #### L 100.0100, L500.2500 ####[facility] [address] [place], [address] CBC W/Diff, Automatedon 11-0 Absolute Lymph 2.87 X10 3/uL Normal 0.83-4.51 [facility] Comment on above: Performed By: #### L 100.0100, L500.2500 ####[facility] [address] [place], [address] Absolute Neut 10.1 X10 3/uL High 2.0-7.7 [facility] Comment on above: Performed By: #### L 100.0100, L500.2500 ####[facility] [address], [address] Basophils/100 WBC (Bld) 0.4 % Normal 0-1 [facility] Comment on above: Performed By: #### L 100.0100, L500.2500 ####[facility] [address] [place], [address] Eosinophils/100 WBC (Bld) 1.6 % Normal 0-5 [facility] Comment on above: Performed By: #### L 100.0100, L500.2500 ####[facility] [address] [place], [address] Erythrocyte distribution width (RBC) [Ratio] 13.8 % Normal 11.6-14.6 [facility] Comment on above: Performed By: #### L 100.0100, L500.2500 ####[facility] [address] [place], [address] Hematocrit (Bld) [Volume fraction] 31.7 % Low 40-54 [facility] Comment on above: Performed By: #### L 100.0100, L500.2500 ####[facility] [address] [place], [address] Hemoglobin (Bld) [Mass/Vol] 10.6 g/dL Low 13.0-16.5 [facility] Comment on above: Performed By: #### L 100.0100, L500.2500 ####[facility] [address] [place], [address] IG% 1.400 High 0.0-0.9 [facility] Comment on above: Result Comment: IG% - Immature Granulocytes (promyelocytes, myelocytes and metamyelocytes) > 1% indicates that a LEFT SHIFT is Present. Performed By: #### L 100.0100, L500.2500 ####[facility] [address] [place], [address] Lymphocytes/100 WBC (Bld) 19.8 % Normal 19-41 [facility] Comment on above: Performed By: #### L 100.0100, L500.2500 ####[facility] [address] [place], [address] MCH (RBC) [Entitic mass] 29.7 pg Normal 27.0-32.0 [facility] Comment on above: Performed By: #### L 100.0100, L500.2500 ####[facility] [address] [place], [address] MCHC (RBC) [Mass/Vol] 33.4 g/dL Normal 32-36 [facility] Comment on above: Performed By: #### L 100.0100, L500.2500 ####[facility] [address] [place], [address] MCV (RBC) [Entitic vol] 88.8 fL Normal 80-94 [facility] Comment on above: Performed By: #### L 100.0100, L500.2500 ####[facility] [address] [place], [address] Monocytes/100 WBC (Bld) 7.5 % Normal 0-10 [facility] Comment on above: Performed By: #### L 100.0100, L500.2500 ####[facility] [address] [place], [address] Neutrophils/100 WBC (Bld) 69.3 % Normal 47-70 [facility] Comment on above: Performed By: #### L 100.0100, L500.2500 ####[facility] [address] [place], [address] Nucleated RBC (Bld) [#/Vol] 0 10*3/uL Normal 0-5 [facility] Comment on above: Performed By: #### L 100.0100, L500.2500 ####[facility] [address] [place], [address] Platelet mean volume (Bld) [Entitic vol] 10.2 fL Normal 6.2-12.0 [facility] Comment on above: Performed By: #### L 100.0100, L500.2500 ####[facility] [address] [place], [address] Platelets (Bld) [#/Vol] 232 10*3/uL Normal 150-450 [facility] Comment on above: Performed By: #### L 100.0100, L500.2500 ####[facility] [address] [place], [address] RBC (Bld) [#/Vol] 3.57 10*6/uL Low 4.6-6.[address] [facility] Comment on above: Performed By: #### L 100.0100, L500.2500 ####[facility] [address] [place], [address] RDW SD 44.4 fl High 35.1-43.9 [facility] Comment on above: Performed By: #### L 100.0100, L500.2500 ####[facility] [address] [place], [address] WBC (Bld) [#/Vol] 14.5 10*3/uL High 4.4-11.[address] [facility] Comment on above: Performed By: #### L 100.0100, L500.2500 ####[facility] [address] [place], [address] Urine Cultureon 01-07-2025 URC Culture exhibits no growth. Normal [facility] Comment on above: Performed By: #### L 400.0001, M100.2200 ####[facility] [address] [place], [address] Basic Metabolic Profile (BMP )on 01-06-2025 BUN/CRE 19.0 RATIO Normal 10-20 [facility] Comment on above: Performed By: #### L 100.0100, L500.2500 #### [facility] [address] [place], [address] Calcium [Mass/Vol] 8.3 mg/dL Normal 7.6-11.0 [facility] Comment on above: Performed By: #### L 100.0100, L500.2500 #### [facility] [address] [place], [address] Chloride [Moles/Vol] 109 mmol/L High 98-108 [facility] Comment on above: Performed By: #### L 100.0100, L500.2500 #### [facility] [address] [place], [address] CO2 [Moles/Vol] 23.7 mmol/L Normal 21.0-32.0 [facility] Comment on above: Performed By: #### L 100.0100, L500.2500 #### [facility] [address] [place], [address] Creatinine [Mass/Vol] 0.99 mg/dL Normal 0.70-1.20 [facility] Comment on above: Performed By: #### L 100.0100, L500.2500 #### [facility] [address] [place], [address] ECRCL 73.78 ml/min Normal 50-250 [facility] Comment on above: Performed By: #### L 100.0100, L500.2500 #### [facility] [address] [place], [address] GAP 8 Normal 5-15 [facility] Comment on above: Performed By: #### L 100.0100, L500.2500 #### [facility] [address] [place], [address] GFR/1.73 sq M.predicted among non-blacks MDRD (S/P/Bld) [Vol rate/Area] 79 mL/min/{1.73_m2} Normal >60 [facility] Comment on above: Result Comment: mL/m in/1.73m2 CKD-EPI Creatinine Equation (2020) Performed By: #### L 100.0100, L500.2500 #### [facility] [address] [place], [address] Glucose [Mass/Vol] 102 mg/dL High 70-99 [facility] Comment on above: Performed By: #### L 100.0100, L500.2500 #### [facility] [address] [place], [address] Potassium [Moles/Vol] 3.7 mmol/L Normal 3.3-5.1 [facility] Comment on above: Performed By: #### L 100.0100, L500.2500 #### [facility] [address] [place], [address] Sodium [Moles/Vol] 141 mmol/L Normal 133-145 [facility] Comment on above: Performed By: #### L 100.0100, L500.2500 #### [facility] [address] [place], [address] Urea nitrogen [Mass/Vol] 19 mg/dL Normal 4-19 [facility] Comment on above: Performed By: #### L 100.0100, L500.2500 #### [facility] [address] [place], [address] CBC W/Diff, Automatedon 11-0 3-2024 Absolute Lymph 2.85 X10 3/uL Normal 0.83-4.51 [facility] Comment on above: Performed By: #### L 100.0100, L500.2500 #### [facility] [address] [place], [address] Absolute Neut 17.5 X10 3/uL High 2.0-7.7 [facility] Comment on above: Performed By: #### L 100.0100, L500.2500 #### [facility] [address] [place], [address] Basophils/100 WBC (Bld) 0.4 % Normal 0-1 [facility] Comment on above: Performed By: #### L 100.0100, L500.2500 #### [facility] [address] [place], [address] Eosinophils/100 WBC (Bld) 1.1 % Normal 0-5 [facility] Comment on above: Performed By: #### L 100.0100, L500.2500 #### [facility] [address] [place], [address] Erythrocyte distribution width (RBC) [Ratio] 13.8 % Normal 11.6-14.6 [facility] Comment on above: Performed By: #### L 100.0100, L500.2500 #### [facility] [address] [place], [address] Hematocrit (Bld) [Volume fraction] 34.2 % Low 40-54 [facility] Comment on above: Performed By: #### L 100.0100, L500.2500 #### [facility] [address] [place], [address] Hemoglobin (Bld) [Mass/Vol] 11.2 g/dL Low 13.0-16.5 [facility] Comment on above: Performed By: #### L 100.0100, L500.2500 #### [facility] [address] [place], [address] IG% 1.300 High 0.0-0.9 [facility] Comment on above: Result Comment: IG% - Immature Granulocytes (promyelocytes, myelocytes and metamyelocytes) > 1% indicates that a LEFT SHIFT is Present. Performed By: #### L 100.0100, L500.2500 #### [facility] [address] [place], [address] Lymphocytes/100 WBC (Bld) 12.8 % Low 19-41 [facility] Comment on above: Performed By: #### L 100.0100, L500.2500 #### [facility] [address] [place], [address] MCH (RBC) [Entitic mass] 29.3 pg Normal 27.0-32.0 [facility] Comment on above: Performed By: #### L 100.0100, L500.2500 #### [facility] [address] [place], [address] MCHC (RBC) [Mass/Vol] 32.7 g/dL Normal 32-36 [facility] Comment on above: Performed By: #### L 100.0100, L500.2500 #### [facility] [address] [place], [address] MCV (RBC) [Entitic vol] 89.5 fL Normal 80-94 [facility] Comment on above: Performed By: #### L 100.0100, L500.2500 #### [facility] [address] [place], [address] Monocytes/100 WBC (Bld) 5.8 % Normal 0-10 [facility] Comment on above: Performed By: #### L 100.0100, L500.2500 #### [facility] [address] [place], [address] Neutrophils/100 WBC (Bld) 78.6 % High 47-70 [facility] Comment on above: Performed By: #### L 100.0100, L500.2500 #### [facility] [address] [place], [address] Nucleated RBC (Bld) [#/Vol] 0 10*3/uL Normal 0-5 [facility] Comment on above: Performed By: #### L 100.0100, L500.2500 #### [facility] [address] [place], [address] Platelet mean volume (Bld) [Entitic vol] 10.6 fL Normal 6.2-12.0 [facility] Comment on above: Performed By: #### L 100.0100, L500.2500 #### [facility] [address] [place], [address] Platelets (Bld) [#/Vol] 200 10*3/uL Normal 150-450 [facility] Comment on above: Performed By: #### L 100.0100, L500.2500 #### [facility] [address] [place], [address] RBC (Bld) [#/Vol] 3.82 10*6/uL Low 4.6-6.[address] [facility] Comment on above: Performed By: #### L 100.0100, L500.2500 #### [facility] [address] [place], [address] RDW SD 44.8 fl High 35.1-43.9 [facility] Comment on above: Performed By: #### L 100.0100, L500.2500 #### [facility] [address] [place], [address] WBC (Bld) [#/Vol] 22.2 10*3/uL High 4.4-11.[address] [facility] Comment on above: Performed By: #### L 100.0100, L500.2500 #### [facility] [address] [place], [address] Chest 1 View (Portable)on Chest 1 View (Portable) [facility] Imaging Services [address] [place], [place] [address] Chest 1 View (Portable) MR#: [id number] Acct: [id number] Name: ALLAN LARA Rep #: [id number] : 1950 M 74 From: Stevenson Su MD PCP: Dr. Simone Messer MD Status: ADM IN Study: Chest 1 View (Portable) Date of Exam: 01/06/25 Exam# [id number] Ordering Dr: Kendra Herrera MD PROCEDURE: CHEST [...] change. No new organizing pneumonia. Reading Location: [id number] CC: Dr. Kendra Herrera MD; Dr. Simone Messer MD Weather Teacher: Signed Normal [facility] Hemoglobin A1con 01-06-2025 HbA1c (Bld) [Mass fraction] 6.3 % High <=5.6 [facility] Comment on above: Result Comment: Norm al < 5.7 % Prediabetic 5.7 - 6.4 % Diabetic >or= 6.5 % Please note range changes. Performed By: #### L 100.0100, L500.2500 #### [facility] [address] [place], [address] Urinalysis, Completeon 01-06 RBC 0 SEEN Normal 0-5 [facility] Comment on above: Order Comment: JOANNA TER SPECIMEN Performed By: #### L 400.0001, M100.2200 ####[facility] [address] [place], [address] BACTERIA 0 SEEN Normal None Seen [facility] Comment on above: Order Comment: JOANNA TER SPECIMEN Performed By: #### L 400.0001, M100.2200 ####[facility] [address] [place], [address] EPI,SQUAMOUS 0 SEEN Normal 0-5 [facility] Comment on above: Order Comment: JOANNA TER SPECIMEN Performed By: #### L 400.0001, M1.0 ####[facility] [address] [place], [address] Mucus Ql (Urine sed) 0 SEEN Normal [facility] Comment on above: Order Comment: JOANNA TER SPECIMEN Performed By: #### L 400.0001, M100.2200 ####[facility] [address] [place], [address] WBC 0 SEEN Normal 0-5 [facility] Comment on above: Order Comment: JOANNA TER SPECIMEN Performed By: #### L 400.0001, M100.2200 ####[facility] [address] [place], [address] Basic Metabolic Profile (BMP )on 01-05-2025 BUN/CRE 22.6 RATIO High 10-20 [facility] Comment on above: Performed By: #### L 499.0043 #### [facility] [address] [place], [address] Calcium [Mass/Vol] 8.5 mg/dL Normal 7.6-11.0 [facility] Comment on above: Performed By: #### L 499.0043 #### [facility] [address] [place], [address] Chloride [Moles/Vol] 108 mmol/L Normal 98-108 [facility] Comment on above: Performed By: #### L 499.0043 #### [facility] [address] [place], [address] CO2 [Moles/Vol] 21.7 mmol/L Normal 21.0-32.0 [facility] Comment on above: Performed By: #### L 499.0043 #### [facility] [address] [place], [address] Creatinine [Mass/Vol] 0.99 mg/dL Normal 0.70-1.20 [facility] Comment on above: Performed By: #### L 499.0043 #### [facility] [address] [place], [address] ECRCL 73.78 ml/min Normal 50-250 [facility] Comment on above: Performed By: #### L 499.0043 #### [facility] [address] [place], [address] GAP 10 Normal 5-15 [facility] Comment on above: Performed By: #### L 499.0043 #### [facility] [address] [place], [address] GFR/1.73 sq M.predicted among non-blacks MDRD (S/P/Bld) [Vol rate/Area] 79 mL/min/{1.73_m2} Normal >60 [facility] Comment on above: Result Comment: mL/m in/1.73m2 CKD-EPI Creatinine Equation (2020) Performed By: #### L 499.0043 #### [facility] [address] [place], [address] Glucose [Mass/Vol] 147 mg/dL High 70-99 [facility] Comment on above: Performed By: #### L 499.0043 #### [facility] [address] [place], [address] Potassium [Moles/Vol] 4.0 mmol/L Normal 3.3-5.1 [facility] Comment on above: Performed By: #### L 499.0043 #### [facility] [address] [place], [address] Sodium [Moles/Vol] 140 mmol/L Normal 133-145 [facility] Comment on above: Performed By: #### L 499.0043 #### [facility] [address] [place], [address] Urea nitrogen [Mass/Vol] 22 mg/dL High 4-19 [facility] Comment on above: Performed By: #### L 499.0043 #### [facility] [address] [place], [address] CBC W/Diff, Automatedon 11-0 2-2025 Absolute Lymph 1.49 X10 3/uL Normal 0.83-4.51 [facility] Comment on above: Performed By: #### L 499.0043 #### [facility] [address] [place], [address] Absolute Neut 25.6 X10 3/uL High 2.0-7.7 [facility] Comment on above: Performed By: #### L 499.0043 #### [facility] [address] [place], [address] Basophils/100 WBC (Bld) 0.3 % Normal 0-1 [facility] Comment on above: Performed By: #### L 499.0043 #### [facility] [address] [place], [address] Eosinophils/100 WBC (Bld) 0.0 % Normal 0-5 [facility] Comment on above: Performed By: #### L 499.0043 #### [facility] [address] [place], [address] Erythrocyte distribution width (RBC) [Ratio] 13.7 % Normal 11.6-14.6 [facility] Comment on above: Performed By: #### L 499.0043 #### [facility] [address] [place], [address] Hematocrit (Bld) [Volume fraction] 36.3 % Low 40-54 [facility] Comment on above: Performed By: #### L 499.0043 #### [facility] [address] [place], [address] Hemoglobin (Bld) [Mass/Vol] 11.7 g/dL Low 13.0-16.5 [facility] Comment on above: Performed By: #### L 499.0043 #### [facility] [address] [place], [address] IG% 1.000 High 0.0-0.9 [facility] Comment on above: Result Comment: IG% - Immature Granulocytes (promyelocytes, myelocytes and metamyelocytes) > 1% indicates that a LEFT SHIFT is Present. Performed By: #### L 499.0043 #### [facility] [address] [place], [address] Lymphocytes/100 WBC (Bld) 5.1 % Low 19-41 [facility] Comment on above: Performed By: #### L 499.0043 #### [facility] [address] [place], [address] MCH (RBC) [Entitic mass] 29.3 pg Normal 27.0-32.0 [facility] Comment on above: Performed By: #### L 499.0043 #### [facility] [address] [place], [address] MCHC (RBC) [Mass/Vol] 32.2 g/dL Normal 32-36 [facility] Comment on above: Performed By: #### L 499.0043 #### [facility] [address] [place], [address] MCV (RBC) [Entitic vol] 90.8 fL Normal 80-94 [facility] Comment on above: Performed By: #### L 499.0043 #### [facility] [address] [place], [address] Monocytes/100 WBC (Bld) 5.3 % Normal 0-10 [facility] Comment on above: Performed By: #### L 499.0043 #### [facility] [address] [place], [address] Neutrophils/100 WBC (Bld) 88.3 % High 47-70 [facility] Comment on above: Performed By: #### L 499.0043 #### [facility] [address] [place], [address] Nucleated RBC (Bld) [#/Vol] 0 10*3/uL Normal 0-5 [facility] Comment on above: Performed By: #### L 499.0043 #### [facility] [address] [place], [place], [address] Platelet mean volume (Bld) [Entitic vol] 10.6 fL Normal 6.2-12.0 [facility] Comment on above: Performed By: #### L 499.0043 #### [facility] [address] [place], [address] Platelets (Bld) [#/Vol] 197 10*3/uL Normal 150-450 [facility] Comment on above: Performed By: #### L 499.0043 #### [facility] [address] [place], [address] RBC (Bld) [#/Vol] 4.00 10*6/uL Low 4.6-6.[address] [facility] Comment on above: Performed By: #### L 499.0043 #### [facility] [address] [place], [address] RDW SD 45.2 fl High 35.1-43.9 [facility] Comment on above: Performed By: #### L 499.0043 #### [facility] [address] [place], [address] WBC (Bld) [#/Vol] 29.0 10*3/uL High 4.4-11.[address] [facility] Comment on above: Performed By: #### L 499.0043 #### [facility] [address] [place], [address] L509.7001on 01-05-2025 Procalcitonin 0.09 ng/mL Normal <=0.10 [facility] Comment on above: Result Comment: Inte [...] Performed By: #### L 100.0100, L500.2500 #### [facility] [address] [place], [address] Basic Metabolic Profile (BMP )on 01-04-2025 BUN/CRE 28.8 RATIO High 10-20 [facility] Comment on above: Performed By: #### L 100.0100, L500.2500 #### [facility] [address] [place], [address] Calcium [Mass/Vol] 8.4 mg/dL Normal 7.6-11.0 [facility] Comment on above: Performed By: #### L 100.0100, L500.2500 #### [facility] [address] [place], [address] Chloride [Moles/Vol] 106 mmol/L Normal 98-108 [facility] Comment on above: Performed By: #### L 100.0100, L500.2500 #### [facility] [address] [place], [address] CO2 [Moles/Vol] 23.6 mmol/L Normal 21.0-32.0 [facility] Comment on above: Performed By: #### L 100.0100, L500.2500 #### [facility] [address] [place], [address] Creatinine [Mass/Vol] 1.19 mg/dL Normal 0.70-1.20 [facility] Comment on above: Performed By: #### L 100.0100, L500.2500 #### [facility] [address] [place], [address] ECRCL 61.38 ml/min Normal 50-250 [facility] Comment on above: Performed By: #### L 100.0100, L500.2500 #### [facility] [address] [place], [address] GAP 10 Normal 5-15 [facility] Comment on above: Performed By: #### L 100.0100, L500.2500 #### [facility] [address] [place], [address] GFR/1.73 sq M.predicted among non-blacks MDRD (S/P/Bld) [Vol rate/Area] 63 mL/min/{1.73_m2} Normal >60 [facility] Comment on above: Result Comment: mL/m in/1.73m2 CKD-EPI Creatinine Equation (2020) Performed By: #### L 100.0100, L500.2500 #### [facility] [address] [place], [address] Glucose [Mass/Vol] 167 mg/dL High 70-99 [facility] Comment on above: Performed By: #### L 100.0100, L500.2500 #### [facility] [address] [place], [address] Potassium [Moles/Vol] 4.2 mmol/L Normal 3.3-5.1 [facility] Comment on above: Performed By: #### L 100.0100, L500.2500 #### [facility] [address] [place], [address] Sodium [Moles/Vol] 139 mmol/L Normal 133-145 [facility] Comment on above: Performed By: #### L 100.0100, L500.2500 #### [facility] [address] [place], [address] Urea nitrogen [Mass/Vol] 34 mg/dL High 4-19 [facility] Comment on above: Performed By: #### L 100.0100, L500.2500 #### [facility] [address] [place], [address] CBC W/Diff, Automatedon 11 SMEAR COMMENT SCANNED Normal [facility] Comment on above: Result Comment: MONO CYTOSIS PRESENT NEUTROPHILIA PRESENT Performed By: #### L 100.0100, L500.2500 #### [facility] [address] [place], [address] CBC-Complete Blood Cnt No Di ffon 01-04-2025 Erythrocyte distribution width (RBC) [Ratio] 13.7 % Normal 11.6-14.6 [facility] Comment on above: Order Comment: Comme nts: hgb drop Performed By: #### L 100.0100, L500.2500 #### [facility] [address] [place], [address] Hematocrit (Bld) [Volume fraction] 36.3 % Low 40-54 [facility] Comment on above: Order Comment: Comme nts: hgb drop Performed By: #### L 100.0100, L500.2500 #### [facility] [address] [place], [address] Hemoglobin (Bld) [Mass/Vol] 11.9 g/dL Low 13.0-16.5 [facility] Comment on above: Order Comment: Comme nts: hgb drop Performed By: #### L 100.0100, L500.2500 #### [facility] [address] [place], [address] MCH (RBC) [Entitic mass] 29.2 pg Normal 27.0-32.0 [facility] Comment on above: Order Comment: Comme nts: hgb drop Performed By: #### L 100.0100, L500.2500 #### [facility] [address] [place], [address] MCHC (RBC) [Mass/Vol] 32.8 g/dL Normal 32-36 [facility] Comment on above: Order Comment: Comme nts: hgb drop Performed By: #### L 100.0100, L500.2500 #### [facility] [address] [place], [address] MCV (RBC) [Entitic vol] 89.0 fL Normal 80-94 [facility] Comment on above: Order Comment: Comme nts: hgb drop Performed By: #### L 100.0100, L500.2500 #### [facility] [address] [place], [address] Platelet mean volume (Bld) [Entitic vol] 10.2 fL Normal 6.2-12.0 [facility] Comment on above: Order Comment: Comme nts: hgb drop Performed By: #### L 100.0100, L500.2500 #### [facility] [address] [place], [address] Platelets (Bld) [#/Vol] 202 10*3/uL Normal 150-450 [facility] Comment on above: Order Comment: Comme nts: hgb drop Performed By: #### L 100.0100, L500.2500 #### [facility] [address] [place], [address] RBC (Bld) [#/Vol] 4.08 10*6/uL Low 4.6-6.[address] [facility] Comment on above: Order Comment: Comme nts: hgb drop Performed By: #### L 100.0100, L500.2500 #### [facility] [address] [place], [address] RDW SD 44.6 fl High 35.1-43.9 [facility] Comment on above: Order Comment: Comme nts: hgb drop Performed By: #### L 100.0100, L500.2500 #### [facility] [address] [place], [address] WBC (Bld) [#/Vol] 24.8 10*3/uL High 4.4-11.[address] [facility] Comment on above: Order Comment: Comme nts: hgb drop Performed By: #### L 100.0100, L500.2500 #### [facility] [address] [place], [address] Chest 1 View (Portable)on Chest 1 View (Portable) [facility] Imaging Services [address] [place] [address] Chest 1 View (Portable) MR#: [id number] Acct: [id number] Name: JANEALLAN ALEKSANDAR Rep #: [id number] : 1950 M 74 From: Vignesh laboy MD PCP: Dr. Simone Messer MD Status: ADM IN Study: Chest 1 View (Portable) Date of Exam: 01/04/25 Exam# [id number] Ordering Dr: Morris Paulino DO PROCEDURE: CHEST [...] by possible minimal pleural effusion/reaction. Reading Location: [place] [address] CC: Dr. Morris Paulino DO; Dr. Simone Messer MD Weather Teacher: Signed Normal [facility] 12 Lead EKGon 01-03-2025 12 Lead EKG [facility] Cardiovascular Services [address] [place] [address] 12 Lead EKG 01/03/25 0620 MR#: [id number] Acct: [id number] Name: ALLAN LARA Rep #: [id number] : 1950 74 From: Allan Deluna MD Attending Dr: Dr. Kendra Herrera MD Status: ADM IN Ordering Dr: Daren Hermosillo DO Date: 01/03/25 [place] [facility] [place]: M C Admitted: 01/03/25 Test Reason [...] msec Abnormal ECG Confirmed by Allan Deluna ([id number]), news video editor ALEX QUESADA ([id number]) on 01/06/2025 1:06:03 PM Referred By: MATT Confirmed By: Allan Deluna 01/06/25 1306 Date Allna Deluna MD CC: Dr. Daren Hermosillo DO; Dr. Kendra Herrera MD; Dr. Simone Messer MD Signed Normal [facility] Basic Metabolic Profile (BMP )on 01-03-2025 BUN/CRE 15.5 RATIO Normal 10-20 [facility] Comment on above: Performed By: #### L 300.4310, L501.4021, L500.3400, L100.0100, L501.2450, L300.3900, L503.6005, BTS, L500.2500 ####[facility] [address] [place], [address] Calcium [Mass/Vol] 9.5 mg/dL Normal 7.6-11.0 [facility] Comment on above: Performed By: #### L 300.4310, L501.4021, L500.3400, L100.0100, L501.2450, L300.3900, L503.6005, BTS, L500.2500 ####[facility] [address] [place], [address] Chloride [Moles/Vol] 101 mmol/L Normal 98-108 [facility] Comment on above: Performed By: #### L 300.4310, L501.4021, L500.3400, L100.0100, L501.2450, L300.3900, L503.6005, BTS, L500.2500 ####[facility] [address] [place], [address] CO2 [Moles/Vol] 27.4 mmol/L Normal 21.0-32.0 [facility] Comment on above: Performed By: #### L 300.4310, L501.4021, L500.3400, L100.0100, L501.2450, L300.3900, L503.6005, BTS, L500.2500 ####[facility] [address] [place], [address] Creatinine [Mass/Vol] 1.12 mg/dL Normal 0.70-1.20 [facility] Comment on above: Performed By: #### L 300.4310, L501.4021, L500.3400, L100.0100, L501.2450, L300.3900, L503.6005, BTS, L500.2500 ####[facility] [address] [place], [address] ECRCL 56.11 ml/min Normal 50-250 [facility] Comment on above: Performed By: #### L 300.4310, L501.4021, L500.3400, L100.0100, L501.2450, L300.3900, L503.6005, BTS, L500.2500 ####[facility] [address] [place], [address] GAP 12 Normal 5-15 [facility] Comment on above: Performed By: #### L 300.4310, L501.4021, L500.3400, L100.0100, L501.2450, L300.3900, L503.6005, BTS, L500.2500 ####[facility] [address] [place], [address] GFR/1.73 sq M.predicted among non-blacks MDRD (S/P/Bld) [Vol rate/Area] 68 mL/min/{1.73_m2} Normal >60 [facility] Comment on above: Result Comment: mL/m in/1.73m2 CKD-EPI Creatinine Equation (2020) Performed By: #### L 300.4310, L501.4021, L500.3400, L100.0100, L501.2450, L300.3900, L503.6005, BTS, L500.2500 ####[facility] [address] [place], [address] Glucose [Mass/Vol] 212 mg/dL High 70-99 [facility] Comment on above: Performed By: #### L 300.4310, L501.4021, L500.3400, L100.0100, L501.2450, L300.3900, L503.6005, BTS, L500.2500 ####[facility] [address] [place], [address] Potassium [Moles/Vol] 4.0 mmol/L Normal 3.3-5.1 [facility] Comment on above: Performed By: #### L 300.4310, L501.4021, L500.3400, L100.0100, L501.2450, L300.3900, L503.6005, BTS, L500.2500 ####[facility] [address] [place], [address] Sodium [Moles/Vol] 141 mmol/L Normal 133-145 [facility] Comment on above: Performed By: #### L 300.4310, L501.4021, L500.3400, L100.0100, L501.2450, L300.3900, L503.6005, BTS, L500.2500 ####[facility] [address] [place], [address] Urea nitrogen [Mass/Vol] 17 mg/dL Normal 4-19 [facility] Comment on above: Performed By: #### L 300.4310, L501.4021, L500.3400, L100.0100, L501.2450, L300.3900, L503.6005, BTS, L500.2500 ####[facility] [address] [place], [address] CBC W/Diff, Automatedon 10-3 -2024 Absolute Lymph 1.07 X10 3/uL Normal 0.83-4.51 [facility] Comment on above: Performed By: #### L 300.4310, L501.4021, L500.3400, L100.0100, L501.2450, L300.3900, L503.6005, BTS, L500.2500 #### [facility] [address] [place], [address] Absolute Neut 25.5 X10 3/uL High 2.0-7.7 [facility] Comment on above: Performed By: #### L 300.4310, L501.4021, L500.3400, L100.0100, L501.2450, L300.3900, L503.6005, BTS, L500.2500 #### [facility] [address] [place], [address] Basophils/100 WBC (Bld) 0.3 % Normal 0-1 [facility] Comment on above: Performed By: #### L 300.4310, L501.4021, L500.3400, L100.0100, L501.2450, L300.3900, L503.6005, BTS, L500.2500 #### [facility] [address] [place], [address] Eosinophils/100 WBC (Bld) 0.1 % Normal 0-5 [facility] Comment on above: Performed By: #### L 300.4310, L501.4021, L500.3400, L100.0100, L501.2450, L300.3900, L503.6005, BTS, L500.2500 #### [facility] [address] [place], [address] Erythrocyte distribution width (RBC) [Ratio] 13.1 % Normal 11.6-14.6 [facility] Comment on above: Performed By: #### L 300.4310, L501.4021, L500.3400, L100.0100, L501.2450, L300.3900, L503.6005, BTS, L500.2500 #### [facility] [address] [place], [address] Hematocrit (Bld) [Volume fraction] 43.9 % Normal 40-54 [facility] Comment on above: Performed By: #### L 300.4310, L501.4021, L500.3400, L100.0100, L501.2450, L300.3900, L503.6005, BTS, L500.2500 #### [facility] [address] [facility] [place], [address] Hemoglobin (Bld) [Mass/Vol] 14.7 g/dL Normal 13.0-16.5 [facility] Comment on above: Performed By: #### L 300.4310, L501.4021, L500.3400, L100.0100, L501.2450, L300.3900, L503.6005, BTS, L500.2500 #### [facility] [address] [facility] [place], [address] IG% 1.000 High 0.0-0.9 [facility] Comment on above: Result Comment: IG% - Immature Granulocytes (promyelocytes, myelocytes and metamyelocytes) > 1% indicates that a LEFT SHIFT is Present. Performed By: #### L 300.4310, L501.4021, L500.3400, L100.0100, L501.2450, L300.3900, L503.6005, BTS, L500.2500 #### [facility] [address] [place], [address] Lymphocytes/100 WBC (Bld) 3.8 % Low 19-41 [facility] Comment on above: Performed By: #### L 300.4310, L501.4021, L500.3400, L100.0100, L501.2450, L300.3900, L503.6005, BTS, L500.2500 #### [facility] [address] [place], [address] MCH (RBC) [Entitic mass] 29.4 pg Normal 27.0-32.0 [facility] Comment on above: Performed By: #### L 300.4310, L501.4021, L500.3400, L100.0100, L501.2450, L300.3900, L503.6005, BTS, L500.2500 #### [facility] [address] [place], [address] MCHC (RBC) [Mass/Vol] 33.5 g/dL Normal 32-36 [facility] Comment on above: Performed By: #### L 300.4310, L501.4021, L500.3400, L100.0100, L501.2450, L300.3900, L503.6005, BTS, L500.2500 #### [facility] [address] [place], [address] MCV (RBC) [Entitic vol] 87.8 fL Normal 80-94 [facility] Comment on above: Performed By: #### L 300.4310, L501.4021, L500.3400, L100.0100, L501.2450, L300.3900, L503.6005, BTS, L500.2500 #### [facility] [address] [place], [address] Monocytes/100 WBC (Bld) 3.5 % Normal 0-10 [facility] Comment on above: Performed By: #### L 300.4310, L501.4021, L500.3400, L100.0100, L501.2450, L300.3900, L503.6005, BTS, L500.2500 #### [facility] [address] [place], [address] Neutrophils/100 WBC (Bld) 91.3 % High 47-70 [facility] Comment on above: Performed By: #### L 300.4310, L501.4021, L500.3400, L100.0100, L501.2450, L300.3900, L503.6005, BTS, L500.2500 #### [facility] [address] [place], [address] Nucleated RBC (Bld) [#/Vol] 0 10*3/uL Normal 0-5 [facility] Comment on above: Performed By: #### L 300.4310, L501.4021, L500.3400, L100.0100, L501.2450, L300.3900, L503.6005, BTS, L500.2500 #### [facility] [address] [place], [address] Platelet mean volume (Bld) [Entitic vol] 10.1 fL Normal 6.2-12.0 [facility] Comment on above: Performed By: #### L 300.4310, L501.4021, L500.3400, L100.0100, L501.2450, L300.3900, L503.6005, BTS, L500.2500 #### [facility] [address] [place], [address] Platelets (Bld) [#/Vol] 252 10*3/uL Normal 150-450 [facility] Comment on above: Performed By: #### L 300.4310, L501.4021, L500.3400, L100.0100, L501.2450, L300.3900, L503.6005, BTS, L500.2500 #### [facility] [address] [place], [address] RBC (Bld) [#/Vol] 5.00 10*6/uL Normal 4.6-6.[address] [facility] Comment on above: Performed By: #### L 300.4310, L501.4021, L500.3400, L100.0100, L501.2450, L300.3900, L503.6005, BTS, L500.2500 #### [facility] [address] [place], [address] RDW SD 42.0 fl Normal 35.1-43.9 [facility] Comment on above: Performed By: #### L 300.4310, L501.4021, L500.3400, L100.0100, L501.2450, L300.3900, L503.6005, BTS, L500.2500 #### [facility] [address] [facility] [place], [address] WBC (Bld) [#/Vol] 28.0 10*3/uL High 4.4-11.[address] [facility] Comment on above: Performed By: #### L 300.4310, L501.4021, L500.3400, L100.0100, L501.2450, L300.3900, L503.6005, BTS, L500.2500 #### [facility] [address] [place], [address] CTA Chst, Abd, Pel W and/or WOon 01-03-2025 CTA Chst, Abd, Pel W and/or WO [facility] Imaging Services [address] [place] [address] CTA Chst, Abd, Pel W and/or WO MR#: [id number] Acct: [id number] Name: ALLAN LARA Rep #: [id number] : 1950 M 74 From: Jay willis MD PCP: Dr. Simone Messer MD Status: [facility] ER Study: CTA Chst, Abd, Pel W and/or WO Date of Exam: Exam# [id number] Ordering Dr: Arron Linares DO PROCEDURE: CTA [...] is seen in the colon. Reading Location: [id number] CC: Dr. Arron Linares DO; Dr. Simone Messer MD Weather Teacher: Signed Normal [facility] Chest 1 View (Portable)on Chest 1 View (Portable) [facility] Imaging Services [address] [place] [address] Chest 1 View (Portable) MR#: [id number] Acct: [id number] Name: ALLAN LARA Rep #: [id number] : 1950 M 74 From: Jose Loya PCP: Dr. Simone Messer MD Status: REG ER Study: Chest 1 View (Portable) Date of Exam: 01/03/25 Exam# [id number] Ordering Dr: Daren Hermosillo DO PROCEDURE: CHEST 1 VIEW (PORTABLE) 01/03/2025 REASON FOR EXAM: CHEST PAIN TECHNIQUE: Frontal view of the chest. COMPARISON: None. RAD/Chest 1 View (Portable) IMPRESSION: Lungs are hypoinflated with bibasilar atelectasis, ofhxl-mjijutx-hnpv-l eft; cannot entirely exclude the presence of pneumonitis. No pleural effusion or pneumothorax is noted. The cardiomediastinal silhouette is remarkable for a somewhat calcified and tortuous aorta; no evidence of cardiomegaly. Prominent degenerative changes are seen of the bilateral glenohumeral and acromioclavicular joints, both aayh-wutnbca-azbi-ri ght. No acute osseous change is seen. Reading Location: [facility] CC: Dr. Daren Hermosillo DO; Dr. Simone Messer MD Weather Teacher: Signed Normal [facility] Emergency Department Summary on 01-03-2025 Emergency Department Summary [facility] Medical Records Department [address] [place] [address] Emergency Department Summary 01/03/25 MR#: [id number] Acct: [id number] Name: ALLAN LARA Rep #: [id number] : 1950 74 From: Daren Hermosillo DO PCP: Dr. Simone Messer MD Status:REG ER Location: ED ADDENDUM by Dr. Arron Linares DO on 01/03/25 at 1018 0705 patient was transitioned to pa from Dr. Hermosillo. 1000 I have spoken [...] mid anterior aspect of his chest today. detention as well as EMS notes several episodes of emesis with black appearance. Last time of p.o. intake and what it was is unknown. detention also reports that he was hypoxic and sometimes wears oxygen as needed. Patient denies any current shortness of breath. He cannot tell me anything about his bowel movements. He denies any current abdominal pain. Per penitentiary paperwork patient is a full code [facility] Medical History Neoplasm of right kidney [...] 0.5 mg (more content not included)... Normal [facility] H AND P Exam - Hospitaliston 01-03-2025 H&P Exam - Hospitalist [facility] Medical Records Department [address] [place] [address] H P Exam - Hospitalist 01/03/25 1833 MR#: [id number] Acct: [id number] Name: ALLAN LARA Rep #: [id number] : 1950 74 From: Morris Pauilno DO PCP: Dr. Simone Messer MD Status:ADM IN [place] [facility] [id number] HPI - General General Date of Admission: 01/03/25 Date of Service: 01/03/25 Chief Complaint: Chest pain and vomiting HPI Narrative ALLAN LARA, is a 74 M who presents to the emergency room at [facility] after being transported from an intermediate care facility (in a memory unit) due to chest pain and vomiting. Patient has a history of dementia he does not respond to questions. Evidently according to the penitentiary, the emesis had some black appearance to [...] the colon. Patient will be admitted to [place] [address] for aspiration/aspiratio n pneumonia, he will be placed on IV Zosyn and monitor. Aerosol treatments will be administered. According to the patient's medical records, he is a full code. Patient requires no oxygen at this time and appears comfortable. [facility] Medical History Neoplasm of right kidney Dementia [...] Source Or (more content not included)... Normal [facility] L501.4021on 01-03-2025 Trop T High Sen 18 ng/L Normal <=22 [facility] Comment on above: Performed By: #### L 499.0043 #### [facility] [address] [place], [place], [address] Trop T High Sen 17 ng/L Normal <=22 [facility] Comment on above: Performed By: #### L 300.4310, L501.4021, L500.3400, L100.0100, L501.2450, L300.3900, L503.6005, BTS, L500.2500 ####[facility] [address] [place], [address] Lactic Acidon 01-03-2025 Lactate [Moles/Vol] 3.6 mmol/L Invalid Interpretation Code 0.0-2.0 [facility] Comment on above: Result Comment: Crit ical Result(s) Called at: 1152 01/03/2025 by: PORSCHE GUALLPA??Results read back by same. Performed By: #### L 100.0100, L500.2500 #### [facility] [address] [place], [address] Lactate [Moles/Vol] 2.7 mmol/L Invalid Interpretation Code 0.0-2.0 [facility] Comment on above: Order Comment: Y Result Comment: Crit ical Result(s) Called at: 0720 01/03/2025 by: REGGIE CRAWFORD??Results read back by same. Performed By: #### L 300.4310, L501.4021, L500.3400, L100.0100, L501.2450, L300.3900, L503.6005, BTS, L500.2500 ####[facility] [address] [place], [address] Lipaseon 01-03-2025 Lipase [Catalytic activity/Vol] 25 U/L Normal 13-75 [facility] Comment on above: Result Comment: Jessica rhodes note: LIPASE revised reference range effective 22. New Lipase methodology. Expected to produce lower values than the previous assay method. NEW Reference Range: 13 - 75 U/L Performed By: #### L 300.4310, L501.4021, L500.3400, L100.0100, L501.2450, L300.3900, L503.6005, BTS, L500.2500 ####[facility] [address] [place], [address] Liver Profileon 01-03-2025 Albumin [Mass/Vol] 4.0 g/dL Normal 3.4-4.8 [facility] Comment on above: Performed By: #### L 300.4310, L501.4021, L500.3400, L100.0100, L501.2450, L300.3900, L503.6005, BTS, L500.2500 ####[facility] [address] [place], [address] ALK PHOS 87 U/L Normal 40-129 [facility] Comment on above: Performed By: #### L 300.4310, L501.4021, L500.3400, L100.0100, L501.2450, L300.3900, L503.6005, BTS, L500.2500 ####[facility] [address] [place], [address] ALT [Catalytic activity/Vol] 14 U/L Normal <=46 [facility] Comment on above: Performed By: #### L 300.4310, L501.4021, L500.3400, L100.0100, L501.2450, L300.3900, L503.6005, BTS, L500.2500 ####[facility] [address] [place], [address] AST [Catalytic activity/Vol] 16 U/L Normal <=37 [facility] Comment on above: Performed By: #### L 300.4310, L501.4021, L500.3400, L100.0100, L501.2450, L300.3900, L503.6005, BTS, L500.2500 ####[facility] [address] [place], [address] Bilirubin [Mass/Vol] 0.33 mg/dL Normal 0.00-1.30 [facility] Comment on above: Performed By: #### L 300.4310, L501.4021, L500.3400, L100.0100, L501.2450, L300.3900, L503.6005, BTS, L500.2500 ####[facility] [address] [place], [address] Bilirubin.direct [Mass/Vol] 0.15 mg/dL Normal 0.00-0.30 [facility] Comment on above: Performed By: #### L 300.4310, L501.4021, L500.3400, L100.0100, L501.2450, L300.3900, L503.6005, BTS, L500.2500 ####[facility] [address] [place], [address] Globulin (S) [Mass/Vol] 3.1 g/dL Normal 2.2-4.2 [facility] Comment on above: Performed By: #### L 300.4310, L501.4021, L500.3400, L100.0100, L501.2450, L300.3900, L503.6005, BTS, L500.2500 ####[facility] [address] [place], [address] T PROT 7.2 g/dL Normal 5.9-8.4 [facility] Comment on above: Performed By: #### L 300.4310, L501.4021, L500.3400, L100.0100, L501.2450, L300.3900, L503.6005, BTS, L500.2500 ####[facility] [address] [place], [address] Partial Thromboplast Timeon 01-03-2025 aPTT Coag (Bld) [Time] 25.3 s Normal 24.1-36.2 [facility] Comment on above: Performed By: #### L 300.4310, L501.4021, L500.3400, L100.0100, L501.2450, L300.3900, L503.6005, BTS, L500.2500 ####[facility] [address] [place], [address] Prothrombin Time w/INRon INR Coag (PPP) [Relative time] 1.0 {INR} Normal [facility] Comment on above: Performed By: #### L 300.4310, L501.4021, L500.3400, L100.0100, L501.2450, L300.3900, L503.6005, BTS, L500.2500 #### [facility] [address] [place], [address] PT Coag (PPP) [Time] 12.8 s Normal 11.7-14.9 [facility] Comment on above: Performed By: #### L 300.4310, L501.4021, L500.3400, L100.0100, L501.2450, L300.3900, L503.6005, BTS, L500.2500 #### [facility] [address] [place], [address] Troponin T HS 2 HRon 025 Trop T High Sen Normal <=22 [facility] Comment on above: Result Comment: ONLY INITIAL NEEDED PER NADJA AND DR. WILLIS, CANCELLIING 2 AND 4 HR. Performed By: #### L 499.0043 #### [facility] [address] [place], [address] Trop T High Sen 18 ng/L Normal <=22 [facility] Comment on above: Performed By: #### L 499.0043 #### [facility] [address] [place], [address] Troponin T HS 4 HRon 025 Trop T High Sen Normal <=22 [facility] Comment on above: Result Comment: INIT IAL TROP NEEDED ONLY, CANCELLING 2 AND 4 HR PER NADJA AND DR WILLIS Performed By: #### L 499.0043 #### [facility] [address] [place], [address] Type AND Screenon 01-03-2025 ABO and Rh group Nom (Bld) Blood group B Rh(D) positive Normal [facility] Comment on above: Order Comment: HGI Performed By: #### L 300.4310, L501.4021, L500.3400, L100.0100, L501.2450, L300.3900, L503.6005, BTS, L500.2500 ####[facility] [address] [place], [address] Ab SCREEN GEL Negative Normal [facility] Comment on above: Order Comment: HGI Performed By: #### L 300.4310, L501.4021, L500.3400, L100.0100, L501.2450, L300.3900, L503.6005, BTS, L500.2500 ####[facility] [address] [place], [address] Urinalysis, Completeon 01-03 EPI,RENAL 0-5 SEEN Normal 0-5 [facility] Comment on above: Order Comment: JOANNA TER SPECIMEN Performed By: #### L 400.0001 #### [facility] [address] [place], [address] RBC 0-5 SEEN Normal 0-5 [facility] Comment on above: Order Comment: JOANNA TER SPECIMEN Performed By: #### L 400.0001 #### [facility] [address] [place], [address] BACTERIA 0 SEEN Normal None Seen [facility] Comment on above: Order Comment: JOANNA TER SPECIMEN Performed By: #### L 400.0001 #### [facility] [address] [place], [address] EPI,SQUAMOUS 0 SEEN Normal 0-5 [facility] Comment on above: Order Comment: JOANNA TER SPECIMEN Performed By: #### L 400.0001 #### [facility] [address] [place], [address] Mucus Ql (Urine sed) 0 SEEN Normal [facility] Comment on above: Order Comment: JOANNA TER SPECIMEN Performed By: #### L 400.0001 #### [facility] [address] [place], [address] WBC 0 SEEN Normal 0-5 [facility] Comment on above: Order Comment: JOANNA TER SPECIMEN Performed By: #### L 400.0001 #### [facility] [address] [place], [address] Culture, Blood (WB)on 2024 CUB Blood cultures x2, from two different sites No growth in 5 days. Normal [facility] Comment on above: Performed By: #### L 503.6005 #### [facility] [address] [place], [address] Basic Metabolic Profile (BMP )on 03-22-2024 BUN/CRE 7.1 RATIO Low 10-20 [facility] Comment on above: Performed By: #### L 100.0100, L500.2500 #### [facility] [address] [place], [address] CA,Total 9.0 mg/dL Normal 8.5-10.1 [facility] Comment on above: Performed By: #### L 100.0100, L500.2500 #### [facility] [address] [place], [address] Chloride [Moles/Vol] 109 mmol/L High 98-107 [facility] Comment on above: Performed By: #### L 100.0100, L500.2500 #### [facility] [address] [place], [address] CO2 [Moles/Vol] 26.0 mmol/L Normal 21.0-32.0 [facility] Comment on above: Performed By: #### L 100.0100, L500.2500 #### [facility] [address] [place], [address] Creatinine [Mass/Vol] 0.99 mg/dL Normal 0.70-1.30 [facility] Comment on above: Result Comment: The validity of the calculated GFR GFRAA in patients over 70 years has not been determined. Clinical correlation is essential. Performed By: #### L 100.0100, L500.2500 #### [facility] [address] [place], [address] ECRCL 64.47 ml/min Normal [facility] Comment on above: Performed By: #### L 100.0100, L500.2500 #### [facility] [address] [place], [address] EST GFR - AA 95 mL/min Normal >60 [facility] Comment on above: Result Comment: Afri can Ethiopian GFR Calc Performed By: #### L 100.0100, L500.2500 #### [facility] [address] [place], [address] GAP 7 Normal 5-15 [facility] Comment on above: Performed By: #### L 100.0100, L500.2500 #### [facility] [address] [place], [address] GFR/1.73 sq M.predicted among non-blacks MDRD (S/P/Bld) [Vol rate/Area] 78 mL/min/{1.73_m2} Normal >60 [facility] Comment on above: Result Comment: Non- GFR Calc Performed By: #### L 100.0100, L500.2500 #### [facility] [address] [place], [address] Glucose [Mass/Vol] 165 mg/dL High 74-106 [facility] Comment on above: Result Comment: Fast ing Glucose result greater than or equal to 126 mg/dL suggests DIABETES MELLITUS per A.D.A. criteria. Performed By: #### L 100.0100, L500.2500 #### [facility] [address] [place], [address] Potassium [Moles/Vol] 3.4 mmol/L Low 3.5-5.1 [facility] Comment on above: Performed By: #### L 100.0100, L500.2500 #### [facility] [address] [place], [address] Sodium [Moles/Vol] 142 mmol/L Normal 136-145 [facility] Comment on above: Performed By: #### L 100.0100, L500.2500 #### [facility] [address] [place], [address] Urea nitrogen [Mass/Vol] 7 mg/dL Normal 7-18 [facility] Comment on above: Performed By: #### L 100.0100, L500.2500 #### [facility] [address] [place], [address] CBC W/Diff, Automatedon 03-06 Absolute Lymph 1.79 X10 3/uL Normal 0.83-4.51 [facility] Comment on above: Performed By: #### L 100.0100, L500.2500 #### [facility] [address] [place], [address] Absolute Neut 6.9 X10 3/uL Normal 2.0-7.7 [facility] Comment on above: Performed By: #### L 100.0100, L500.2500 #### [facility] [address] [place], [address] Basophils/100 WBC (Bld) 0.5 % Normal 0-1 [facility] Comment on above: Performed By: #### L 100.0100, L500.2500 #### [facility] [address] [place], [address] Eosinophils/100 WBC (Bld) 4.6 % Normal 0-5 [facility] Comment on above: Performed By: #### L 100.0100, L500.2500 #### [facility] [address] [place], [address] Erythrocyte distribution width (RBC) [Ratio] 13.0 % Normal 11.6-14.6 [facility] Comment on above: Performed By: #### L 100.0100, L500.2500 #### [facility] [address] [place], [address] Hematocrit (Bld) [Volume fraction] 39.5 % Low 40-54 [facility] Comment on above: Performed By: #### L 100.0100, L500.2500 #### [facility] [address] [place], [address] Hemoglobin (Bld) [Mass/Vol] 12.9 g/dL Low 13.0-16.5 [facility] Comment on above: Performed By: #### L 100.0100, L500.2500 #### [facility] [address] [place], [address] IG% 2.700 High 0.0-0.9 [facility] Comment on above: Result Comment: IG% - Immature Granulocytes (promyelocytes, myelocytes and metamyelocytes) > 1% indicates that a LEFT SHIFT is Present. Performed By: #### L 100.0100, L500.2500 #### [facility] [address] [place], [address] Lymphocytes/100 WBC (Bld) 17.1 % Low 19-41 [facility] Comment on above: Performed By: #### L 100.0100, L500.2500 #### [facility] [address] [place], [address] MCH (RBC) [Entitic mass] 29.7 pg Normal 27.0-32.0 [facility] Comment on above: Performed By: #### L 100.0100, L500.2500 #### [facility] [address] [place], [address] MCHC (RBC) [Mass/Vol] 32.7 g/dL Normal 32-36 [facility] Comment on above: Performed By: #### L 100.0100, L500.2500 #### [facility] [address] [place], [address] MCV (RBC) [Entitic vol] 90.8 fL Normal 80-94 [facility] Comment on above: Performed By: #### L 100.0100, L500.2500 #### [facility] [address] [place], [address] Monocytes/100 WBC (Bld) 8.8 % Normal 0-10 [facility] Comment on above: Performed By: #### L 100.0100, L500.2500 #### [facility] [address] [place], [address] Neutrophils/100 WBC (Bld) 66.3 % Normal 47-70 [facility] Comment on above: Performed By: #### L 100.0100, L500.2500 #### [facility] [address] [place], [address] Nucleated RBC (Bld) [#/Vol] 0 10*3/uL Normal 0-5 [facility] Comment on above: Performed By: #### L 100.0100, L500.2500 #### [facility] [address] [place], [address] Platelet mean volume (Bld) [Entitic vol] 10.2 fL Normal 6.2-12.0 [facility] Comment on above: Performed By: #### L 100.0100, L500.2500 #### [facility] [address] [place], [address] Platelets (Bld) [#/Vol] 190 10*3/uL Normal 150-450 [facility] Comment on above: Performed By: #### L 100.0100, L500.2500 #### [facility] [address] [place], [address] RBC (Bld) [#/Vol] 4.35 10*6/uL Low 4.6-6.[address] [facility] Comment on above: Performed By: #### L 100.0100, L500.2500 #### [facility] [address] [place], [address] RDW SD 43.3 fl Normal 35.1-43.9 [facility] Comment on above: Performed By: #### L 100.0100, L500.2500 #### [facility] [address] [place], [address] WBC (Bld) [#/Vol] 10.4 10*3/uL Normal 4.4-11.[address] [facility] Comment on above: Performed By: #### L 100.0100, L500.2500 #### [facility] [address] [place], [address] Magnesiumon 03-22-2024 Magnesium [Mass/Vol] 2.2 mg/dL Normal 1.6-2.6 [facility] Comment on above: Performed By: #### L 100.0100, L500.2500 #### [facility] [address] [place], [address] Phosphoruson 03-22-2024 Phosphate [Mass/Vol] 3.2 mg/dL Normal 2.5-4.9 [facility] Comment on above: Performed By: #### L 100.0100, L500.2500 #### [facility] [address] [place], [address] Basic Metabolic Profile (BMP )on 03-21-2024 BUN/CRE 17.0 RATIO Normal 10-20 [facility] Comment on above: Performed By: #### L 100.0100, L500.2500 #### [facility] [address] [place], [address] CA,Total 8.4 mg/dL Low 8.5-10.1 [facility] Comment on above: Performed By: #### L 100.0100, L500.2500 #### [facility] [address] [place], [address] Chloride [Moles/Vol] 112 mmol/L High 98-107 [facility] Comment on above: Performed By: #### L 100.0100, L500.2500 #### [facility] [address] [place], [address] CO2 [Moles/Vol] 24.0 mmol/L Normal 21.0-32.0 [facility] Comment on above: Performed By: #### L 100.0100, L500.2500 #### [facility] [address] [place], [address] Creatinine [Mass/Vol] 0.88 mg/dL Normal 0.70-1.30 [facility] Comment on above: Result Comment: The validity of the calculated GFR GFRAA in patients over 70 years has not been determined. Clinical correlation is essential. Performed By: #### L 100.0100, L500.2500 #### [facility] [address] [place], [address] ECRCL 72.53 ml/min Normal [facility] Comment on above: Performed By: #### L 100.0100, L500.2500 #### [facility] [address] [place], [address] EST GFR - AA 108 mL/min Normal >60 [facility] Comment on above: Result Comment: Afri can Ethiopian GFR Calc Performed By: #### L 100.0100, L500.2500 #### [facility] [address] [place], [address] GAP 5 Normal 5-15 [facility] Comment on above: Performed By: #### L 100.0100, L500.2500 #### [facility] [address] [place], [address] GFR/1.73 sq M.predicted among non-blacks MDRD (S/P/Bld) [Vol rate/Area] 89 mL/min/{1.73_m2} Normal >60 [facility] Comment on above: Result Comment: Non- GFR Calc Performed By: #### L 100.0100, L500.2500 #### [facility] [address] [place], [address] Glucose [Mass/Vol] 127 mg/dL High 74-106 [facility] Comment on above: Result Comment: Fast ing Glucose result greater than or equal to 126 mg/dL suggests DIABETES MELLITUS per A.D.A. criteria. Performed By: #### L 100.0100, L500.2500 #### [facility] [address] [place], [address] Potassium [Moles/Vol] 3.4 mmol/L Low 3.5-5.1 [facility] Comment on above: Performed By: #### L 100.0100, L500.2500 #### [facility] [address] [place], [address] Sodium [Moles/Vol] 140 mmol/L Normal 136-145 [facility] Comment on above: Performed By: #### L 100.0100, L500.2500 #### [facility] [address] [place], [address] Urea nitrogen [Mass/Vol] 15 mg/dL Normal 7-18 [facility] Comment on above: Performed By: #### L 100.0100, L500.2500 #### [facility] [address] [place], [address] CBC W/Diff, Automatedon 03-06 Absolute Lymph 1.75 X10 3/uL Normal 0.83-4.51 [facility] Comment on above: Performed By: #### L 100.0100, L500.2500 #### [facility] [address] [place], [address] Absolute Neut 9.6 X10 3/uL High 2.0-7.7 [facility] Comment on above: Performed By: #### L 100.0100, L500.2500 #### [facility] [address] [place], [address] Basophils/100 WBC (Bld) 0.4 % Normal 0-1 [facility] Comment on above: Performed By: #### L 100.0100, L500.2500 #### [facility] [address] [place], [address] Eosinophils/100 WBC (Bld) 3.9 % Normal 0-5 [facility] Comment on above: Performed By: #### L 100.0100, L500.2500 #### [facility] [address] [place], [address] Erythrocyte distribution width (RBC) [Ratio] 12.8 % Normal 11.6-14.6 [facility] Comment on above: Performed By: #### L 100.0100, L500.2500 #### [facility] [address] [place], [address] Hematocrit (Bld) [Volume fraction] 39.0 % Low 40-54 [facility] Comment on above: Performed By: #### L 100.0100, L500.2500 #### [facility] [address] [place], [address] Hemoglobin (Bld) [Mass/Vol] 13.0 g/dL Normal 13.0-16.5 [facility] Comment on above: Performed By: #### L 100.0100, L500.2500 #### [facility] [address] [place], [address] IG% 1.300 High 0.0-0.9 [facility] Comment on above: Result Comment: IG% - Immature Granulocytes (promyelocytes, myelocytes and metamyelocytes) > 1% indicates that a LEFT SHIFT is Present. Performed By: #### L 100.0100, L500.2500 #### [facility] [address] [place], [address] Lymphocytes/100 WBC (Bld) 13.3 % Low 19-41 [facility] Comment on above: Performed By: #### L 100.0100, L500.2500 #### [facility] [address] [place], [address] MCH (RBC) [Entitic mass] 30.2 pg Normal 27.0-32.0 [facility] Comment on above: Performed By: #### L 100.0100, L500.2500 #### [facility] [address] [place], [address] MCHC (RBC) [Mass/Vol] 33.3 g/dL Normal 32-36 [facility] Comment on above: Performed By: #### L 100.0100, L500.2500 #### [facility] [address] [place], [address] MCV (RBC) [Entitic vol] 90.5 fL Normal 80-94 [facility] Comment on above: Performed By: #### L 100.0100, L500.2500 #### [facility] [address] [place], [address] Monocytes/100 WBC (Bld) 8.6 % Normal 0-10 [facility] Comment on above: Performed By: #### L 100.0100, L500.2500 #### [facility] [address] [place], [address] Neutrophils/100 WBC (Bld) 72.5 % High 47-70 [facility] Comment on above: Performed By: #### L 100.0100, L500.2500 #### [facility] [address] [place], [address] Nucleated RBC (Bld) [#/Vol] 0 10*3/uL Normal 0-5 [facility] Comment on above: Performed By: #### L 100.0100, L500.2500 #### [facility] [address] [place], [address] Platelet mean volume (Bld) [Entitic vol] 10.7 fL Normal 6.2-12.0 [facility] Comment on above: Performed By: #### L 100.0100, L500.2500 #### [facility] [address] [place], [address] Platelets (Bld) [#/Vol] 158 10*3/uL Normal 150-450 [facility] Comment on above: Performed By: #### L 100.0100, L500.2500 #### [facility] [address] [place], [address] RBC (Bld) [#/Vol] 4.31 10*6/uL Low 4.6-6.[address] [facility] Comment on above: Performed By: #### L 100.0100, L500.2500 #### [facility] [address] [place], [address] RDW SD 42.4 fl Normal 35.1-43.9 [facility] Comment on above: Performed By: #### L 100.0100, L500.2500 #### [facility] [address] [place], [address] WBC (Bld) [#/Vol] 13.2 10*3/uL High 4.4-11.[address] [facility] Comment on above: Performed By: #### L 100.0100, L500.2500 #### [facility] [address], [address] Urine Cultureon 03-21-2024 URC Culture exhibits no growth. Normal [facility] Comment on above: Performed By: #### L 100.0100, L500.2500 #### [facility] [address] [place], [address] BC GPC IDon 03-20-2024 BC GPC ID Blood cultures x2, from two different sites Enterococcus sp. Not Detected Listeria spp Not Detected NAAT METHOD Testing was performed using nucleic acid amplification Staphylococcus sp. A DETECTED A Streptococcus spp. Not Detected mecA Not Detected Susan/vanB Not Detected Coag Negative Staph Normal [facility] Comment on above: Performed By: #### L 503.6005 #### [facility] [address] [place], [address] Basic Metabolic Profile (BMP )on 03-20-2024 BUN/CRE 23.2 RATIO High 10-20 [facility] Comment on above: Performed By: #### L 499.0043 #### [facility] [address] [place], [address] CA,Total 7.9 mg/dL Low 8.5-10.1 [facility] Comment on above: Performed By: #### L 499.0043 #### [facility] [address] [place], [address] Chloride [Moles/Vol] 113 mmol/L High 98-107 [facility] Comment on above: Performed By: #### L 499.0043 #### [facility] [address] [place], [address] CO2 [Moles/Vol] 23.0 mmol/L Normal 21.0-32.0 [facility] Comment on above: Performed By: #### L 499.0043 #### [facility] [address] [place], [address] Creatinine [Mass/Vol] 1.12 mg/dL Normal 0.70-1.30 [facility] Comment on above: Result Comment: The validity of the calculated GFR GFRAA in patients over 70 years has not been determined. Clinical correlation is essential. Performed By: #### L 499.0043 #### [facility] [address] [place], [address] ECRCL 56.99 ml/min Normal [facility] Comment on above: Performed By: #### L 499.0043 #### [facility] [address] [place], [address] EST GFR - AA 82 mL/min Normal >60 [facility] Comment on above: Result Comment: Afri can Ethiopian GFR Calc Performed By: #### L 499.0043 #### [facility] [address] [place], [address] GAP 3 Low 5-15 [facility] Comment on above: Performed By: #### L 499.0043 #### [facility] [address] [place], [address] GFR/1.73 sq M.predicted among non-blacks MDRD (S/P/Bld) [Vol rate/Area] 68 mL/min/{1.73_m2} Normal >60 [facility] Comment on above: Result Comment: Non- GFR Calc Performed By: #### L 499.0043 #### [facility] [address] [place], [address] Glucose [Mass/Vol] 117 mg/dL High 74-106 [facility] Comment on above: Result Comment: Fast ing Glucose result from 100 to 125 mg/dL suggests IMPAIRED HOMEOSTASIS per A.D.A. criteria. Performed By: #### L 499.0043 #### [facility] [address] [place], [address] Potassium [Moles/Vol] 3.9 mmol/L Normal 3.5-5.1 [facility] Comment on above: Performed By: #### L 499.0043 #### [facility] [address] [place], [address] Sodium [Moles/Vol] 140 mmol/L Normal 136-145 [facility] Comment on above: Performed By: #### L 499.0043 #### [facility] [address] [place], [address] Urea nitrogen [Mass/Vol] 26 mg/dL High 7-18 [facility] Comment on above: Performed By: #### L 499.0043 #### [facility] [address] [place], [address] CBC W/Diff, Automatedon 03-06 PLT TNP Normal 150-450 [facility] Comment on above: Result Comment: Plea se note: For this sample, a platelet estimate is provided rather than a platelet count due to platelet clumping. Other parameters associated with this sample are not affected by platelet clumping. If a more accurate platelet count is required, a redraw of the patient will be necessary. Performed By: #### L 499.0043 #### [facility] [address] [place], [address] PLT EST ADEQUATE Normal ADEQ [facility] Comment on above: Performed By: #### L 499.0043 #### [facility] [address] [place], [address] SMEAR COMMENT SCANNED Normal [facility] Comment on above: Result Comment: Plea se note: For this sample, a platelet estimate is provided rather than a platelet count due to platelet clumping. Other parameters associated with this sample are not affected by platelet clumping. If a more accurate platelet count is required, a redraw of the patient will be necessary. Performed By: #### L 499.0043 #### [facility] [address] [place], [address] Urinalysis, Completeon 03-20 BACTERIA RARE Normal None Seen [facility] Comment on above: Order Comment: COLLE CTOR TO SPECIFY Performed By: #### L 100.0100, L500.2500 #### [facility] [address] [place], [address] EPI,SQUAMOUS 0 SEEN Normal 0-5 [facility] Comment on above: Order Comment: COLLE CTOR TO SPECIFY Performed By: #### L 100.0100, L500.2500 #### [facility] [address] [place], [address] Mucus Ql (Urine sed) 0 SEEN Normal [facility] Comment on above: Order Comment: COLLE CTOR TO SPECIFY Performed By: #### L 100.0100, L500.2500 #### [facility] [address] [place], [address] RBC 0 SEEN Normal 0-5 [facility] Comment on above: Order Comment: COLLE CTOR TO SPECIFY Performed By: #### L 100.0100, L500.2500 #### [facility] [address] [place], [address] WBC 0 SEEN Normal 0-5 [facility] Comment on above: Order Comment: COLLE CTOR TO SPECIFY Performed By: #### L 100.0100, L500.2500 #### [facility] [address] [place], [address] CBC W/Diff, Automatedon 03-06 Absolute Lymph 0.26 X10 3/uL Low 0.83-4.51 [facility] Comment on above: Performed By: #### L 499.0043 #### [facility] [address] [place], [address] Absolute Neut 12.3 X10 3/uL High 2.0-7.7 [facility] Comment on above: Performed By: #### L 499.0043 #### [facility] [address] [place], [address] Basophils/100 WBC (Bld) 0.5 % Normal 0-1 [facility] Comment on above: Performed By: #### L 499.0043 #### [facility] [address] [place], [address] Eosinophils/100 WBC (Bld) 0.1 % Normal 0-5 [facility] Comment on above: Performed By: #### L 499.0043 #### [facility] [address] [place], [address] Erythrocyte distribution width (RBC) [Ratio] 12.8 % Normal 11.6-14.6 [facility] Comment on above: Performed By: #### L 499.0043 #### [facility] [address] [place], [address] Hematocrit (Bld) [Volume fraction] 47.1 % Normal 40-54 [facility] Comment on above: Performed By: #### L 499.0043 #### [facility] [address] [place], [address] Hemoglobin (Bld) [Mass/Vol] 15.8 g/dL Normal 13.0-16.5 [facility] Comment on above: Performed By: #### L 499.0043 #### [facility] [address] [place], [address] IG% 1.600 High 0.0-0.9 [facility] Comment on above: Result Comment: IG% - Immature Granulocytes (promyelocytes, myelocytes and metamyelocytes) > 1% indicates that a LEFT SHIFT is Present. Performed By: #### L 499.0043 #### [facility] [address] [place], [address] Lymphocytes/100 WBC (Bld) 2.0 % Low 19-41 [facility] Comment on above: Performed By: #### L 499.0043 #### [facility] [address] [place], [address] MCH (RBC) [Entitic mass] 30.5 pg Normal 27.0-32.0 [facility] Comment on above: Performed By: #### L 499.0043 #### [facility] [address] [place], [address] MCHC (RBC) [Mass/Vol] 33.5 g/dL Normal 32-36 [facility] Comment on above: Performed By: #### L 499.0043 #### [facility] [address] [place], [address] MCV (RBC) [Entitic vol] 90.9 fL Normal 80-94 [facility] Comment on above: Performed By: #### L 499.0043 #### [facility] [address] [place], [address] Monocytes/100 WBC (Bld) 3.3 % Normal 0-10 [facility] Comment on above: Performed By: #### L 499.0043 #### [facility] [address] [place], [address] Neutrophils/100 WBC (Bld) 92.5 % High 47-70 [facility] Comment on above: Performed By: #### L 499.0043 #### [facility] [address] [place], [address] Nucleated RBC (Bld) [#/Vol] 0 10*3/uL Normal 0-5 [facility] Comment on above: Performed By: #### L 499.0043 #### [facility] [address] [place], [address] Platelet mean volume (Bld) [Entitic vol] 10.5 fL Normal 6.2-12.0 [facility] Comment on above: Performed By: #### L 499.0043 #### [facility] [address] [place], [address] Platelets (Bld) [#/Vol] 182 10*3/uL Normal 150-450 [facility] Comment on above: Performed By: #### L 499.0043 #### [facility] [address] [place], [address] RBC (Bld) [#/Vol] 5.18 10*6/uL Normal 4.6-6.[address] [facility] Comment on above: Performed By: #### L 499.0043 #### [facility] [address] [place], [address] RDW SD 42.5 fl Normal 35.1-43.9 [facility] Comment on above: Performed By: #### L 499.0043 #### [facility] [address] [place], [address] WBC (Bld) [#/Vol] 13.2 10*3/uL High 4.4-11.[address] [facility] Comment on above: Performed By: #### L 499.0043 #### [facility] [address] [place], [address] Chest 1 View (Portable)on Chest 1 View (Portable) [facility] Imaging Services [address] [place] [address] Chest 1 View (Portable) MR#: [id number] Acct: [id number] Name: ALLAN LAAR Rep #: [id number] : 1950 M 73 From: Marky Jhaveri MD PCP: Dr. Simone Messer MD Status: PRE ER Study: Chest 1 View (Portable) Date of Exam: 03/19/24 Exam# [id number] Ordering Dr: Shon Hoskins DO [id number] EXAM: XR CHEST, 1 VIEW CLINICAL INDICATION: [...] Shon Hoskins, DO; Dr. Simone Messer MD Weather Teacher: Signed Normal [facility] Comprehensive Metabolic Prof ilon 03-19-2024 Albumin [Mass/Vol] 3.1 g/dL Low 3.2-5.0 [facility] Comment on above: Order Comment: 'TROP ' Serial specimen #1, #2 or #3: 1 Performed By: #### L 151.6003 #### [facility] [address] [place], [address] Albumin/Globulin [Mass ratio] 0.9 {ratio} Normal 0.9-2.4 [facility] Comment on above: Order Comment: 'TROP ' Serial specimen #1, #2 or #3: 1 Performed By: #### L 419.6009 #### [facility] [address] [place], [address] ALK P 63 U/L Normal 45-117 [facility] Comment on above: Order Comment: 'TROP ' Serial specimen #1, #2 or #3: 1 Performed By: #### L 009.6006 #### [facility] [address] [place], [address] ALT [Catalytic activity/Vol] 11 U/L Low 16-61 [facility] Comment on above: Order Comment: 'TROP ' Serial specimen #1, #2 or #3: 1 Performed By: #### L 503.6005 #### [facility] [address] [place], [address] AST [Catalytic activity/Vol] 9 U/L Low 15-37 [facility] Comment on above: Order Comment: 'TROP ' Serial specimen #1, #2 or #3: 1 Performed By: #### L 503.6005 #### [facility] [address] [place], [address] Bilirubin [Mass/Vol] 0.80 mg/dL Normal 0.20-1.00 [facility] Comment on above: Order Comment: 'TROP ' Serial specimen #1, #2 or #3: 1 Result Comment: For patients on eltrombopag therapy, use of Dimension [place] TBIL is not recommended. Performed By: #### L 503.6005 #### [facility] [address] [place], [address] BUN/CRE 17.5 RATIO Normal 10-20 [facility] Comment on above: Order Comment: 'TROP ' Serial specimen #1, #2 or #3: 1 Performed By: #### L 503.6005 #### [facility] [address] [place], [address] CA,Total 8.2 mg/dL Low 8.5-10.1 [facility] Comment on above: Order Comment: 'TROP ' Serial specimen #1, #2 or #3: 1 Performed By: #### L 503.6005 #### [facility] [address] [place], [address] Chloride [Moles/Vol] 108 mmol/L High 98-107 [facility] Comment on above: Order Comment: 'TROP ' Serial specimen #1, #2 or #3: 1 Performed By: #### L 503.6005 #### [facility] [address] [place], [address] CO2 [Moles/Vol] 19.0 mmol/L Low 21.0-32.0 [facility] Comment on above: Order Comment: 'TROP ' Serial specimen #1, #2 or #3: 1 Performed By: #### L 503.6005 #### [facility] [address] [place], [address] Creatinine [Mass/Vol] 2.11 mg/dL High 0.70-1.30 [facility] Comment on above: Order Comment: 'TROP ' Serial specimen #1, #2 or #3: 1 Result Comment: The validity of the calculated GFR GFRAA in patients over 70 years has not been determined. Clinical correlation is essential. Performed By: #### L 503.6005 #### [facility] [address] [place], [address] ECRCL 30.25 ml/min Normal [facility] Comment on above: Order Comment: 'TROP ' Serial specimen #1, #2 or #3: 1 Performed By: #### L 891.6005 #### [facility] [address] [place], [address] EST GFR - AA 40 mL/min Low >60 [facility] Comment on above: Order Comment: 'TROP ' Serial specimen #1, #2 or #3: 1 Result Comment: Afri can Ethiopian GFR Calc Performed By: #### L 503.6005 #### [facility] [address] [place], [address] GAP 12 Normal 5-15 [facility] Comment on above: Order Comment: 'TROP ' Serial specimen #1, #2 or #3: 1 Performed By: #### L 503.6005 #### [facility] [address] [place], [address] GFR/1.73 sq M.predicted among non-blacks MDRD (S/P/Bld) [Vol rate/Area] 33 mL/min/{1.73_m2} Low >60 [facility] Comment on above: Order Comment: 'TROP ' Serial specimen #1, #2 or #3: 1 Result Comment: Non- GFR Calc Performed By: #### L 503.6005 #### [facility] [address] [place], [address] Globulin (S) [Mass/Vol] 3.6 g/dL Normal 2.2-4.2 [facility] Comment on above: Order Comment: 'TROP ' Serial specimen #1, #2 or #3: 1 Performed By: #### L 503.6005 #### [facility] [address] [place], [address] Glucose [Mass/Vol] 219 mg/dL High 74-106 [facility] Comment on above: Order Comment: 'TROP ' Serial specimen #1, #2 or #3: 1 Result Comment: Gluc ose result greater than or equal to 200 mg/dL suggests DIABETES MELLITUS per A.D.A. criteria. Performed By: #### L 503.6005 #### [facility] [address] [place], [address] Potassium [Moles/Vol] 3.9 mmol/L Normal 3.5-5.1 [facility] Comment on above: Order Comment: 'TROP ' Serial specimen #1, #2 or #3: 1 Performed By: #### L 503.6005 #### [facility] [address] [place], [address] Sodium [Moles/Vol] 139 mmol/L Normal 136-145 [facility] Comment on above: Order Comment: 'TROP ' Serial specimen #1, #2 or #3: 1 Performed By: #### L 503.6005 #### [facility] [address] [place], [address] T PROT 6.7 g/dL Normal 6.4-8.2 [facility] Comment on above: Order Comment: 'TROP ' Serial specimen #1, #2 or #3: 1 Performed By: #### L 503.6005 #### [facility] [address] [place], [address] Urea nitrogen [Mass/Vol] 37 mg/dL High 7-18 [facility] Comment on above: Order Comment: 'TROP ' Serial specimen #1, #2 or #3: 1 Performed By: #### L 503.6005 #### [facility] [address] [place], [address] Emergency Department Summary on 03-19-2024 Emergency Department Summary [facility] Medical Records Department [address] [place] [address] Emergency Department Summary 03/19/24 MR#: [id number] Acct: [id number] Name: ALLAN LARA Rep #: [id number] : 1950 73 From: Shon Hoskins DO PCP: Dr. Simone Messer MD Status:REG ER Location: ED HPI History of Present Illness Chief Complaint: Shortness of Breath Narrative Narrative: Chief complaint and HPI: Shortness of breath and hypoxia. 73-year-old male with past medical history of schizoaffective disorder with delusional disorder, DM, hypothyroidism, HTN, chronic hypoxia on 3 L nasal cannula at baseline presents from [facility] for evaluation of acute on chronic hypoxia [...] Skin: Warm, dry Neuro: Alert, grossly intact [facility] Medical History Neoplasm of right kidney [...] H 18 (more content not included)... Normal [facility] H AND P Exam - Hospitaliston 03-19-2024 H&P Exam - Hospitalist [facility] Medical Records Department [address] [place] [address] H P Exam - Hospitalist 03/19/242000 MR#: [id number] Acct: [id number] Name: ALLAN LARA Rep #: [id number] : 1950 73 From: Darshan Quiroz MD PCP: Dr. Simone Messer MD Status:ADM IN Location: MS3 [id number] HPI - General General Date of Admission: 03/19/24 HPI Narrative ALLAN LARA, is a 73 M [facility] breath and hypoxia. He [...] acid initially of 6.5 improved to 4.3. [facility] Medical History Neoplasm of right kidney Dementia [...] Respiratory Dep (more content not included)... Normal [facility] L501.4020on 03-19-2024 TROPONIN-I HS 14 pg/mL Normal 3.0-78.0 [facility] Comment on above: Order Comment: 'TROP ' Serial specimen #1, #2 or #3: 1 Result Comment: Plea se Note: New Test Units and Gender Specific Reference Ranges. For more information see Policy Stat Procedure [place] High Sensitivity Troponin (TNIH) and attachments. Performed By: #### L 503.6005 #### [facility] [address] [place], [place], [address] Lactic Acidon 03-19-2024 Lactate [Moles/Vol] 4.3 mmol/L Invalid Interpretation Code 0.4-1.9 [facility] Comment on above: Result Comment: Crit ical Result(s) Called at: 17:17:47 03/19/2024 by: ESTRELLA GARCIA. Results read back by Génesis Lentz Performed By: #### L 503.6005 #### [facility] [address] [place], [address] Lactate [Moles/Vol] 6.5 mmol/L Invalid Interpretation Code 0.4-1.9 [facility] Comment on above: Order Comment: REDRA W. PREVIOUS SPECIMEN REJECTED DUE TONOT RECEIVED IN LAB W/IN 15MIN. 03/19/24 1149 [place] Result Comment: Crit ical Result(s) Called at: 12:58:50 03/19/2024 by: Bonilla Camarena to Lindsay Oliver. Results read back by same. Performed By: #### L 503.6005 ####[facility] [address] [place], [address] M100.678on 03-19-2024 M100.678 Pending SARS-CoV-2 (COVID 19) Negative INFLUENZA A Negative INFLUENZA B Negative RSV PCR Negative Normal [facility] Comment on above: Performed By: #### M 100.678, L400.0001, M100.2200 ####[facility] [address] [place], [address] Partial Thromboplast Timeon 03-19-2024 aPTT Coag (Bld) [Time] 24.5 s Normal 24.1-36.2 [facility] Comment on above: Performed By: #### L 503.6005 #### [facility] [address] [place], [address] Prothrombin Time w/INRon INR Coag (PPP) [Relative time] 1.0 {INR} Normal [facility] Comment on above: Performed By: #### L 503.6005 #### [facility] [address] [place], [address] PT Coag (PPP) [Time] 13.7 s Normal 11.7-14.9 [facility] Comment on above: Performed By: #### L 503.6005 #### [facility] [address] [place], [address] Basic Metabolic Profile (BMP )on 03-09-2024 BUN/CRE 27.3 RATIO High 10-20 [facility] Comment on above: Performed By: #### L 503.6005 #### [facility] [address] [place], [address] CA,Total 8.9 mg/dL Normal 8.5-10.1 [facility] Comment on above: Performed By: #### L 503.6005 #### [facility] [address] [place], [address] Chloride [Moles/Vol] 110 mmol/L High 98-107 [facility] Comment on above: Performed By: #### L 503.6005 #### [facility] [address] [place], [address] CO2 [Moles/Vol] 26.0 mmol/L Normal 21.0-32.0 [facility] Comment on above: Performed By: #### L 503.6005 #### [facility] [address] [place], [address] Creatinine [Mass/Vol] 1.43 mg/dL High 0.70-1.30 [facility] Comment on above: Result Comment: The validity of the calculated GFR GFRAA in patients over 70 years has not been determined. Clinical correlation is essential. Performed By: #### L 503.6005 #### [facility] [address] [place], [address] ECRCL 44.63 ml/min Normal [facility] Comment on above: Performed By: #### L 503.6005 #### [facility] [address] [place], [address] EST GFR - AA 62 mL/min Normal >60 [facility] Comment on above: Result Comment: Afri can Ethiopian GFR Calc Performed By: #### L 503.6005 #### [facility] [address] [place], [address] GAP 4 Low 5-15 [facility] Comment on above: Performed By: #### L 503.6005 #### [facility] [address] [place], [address] GFR/1.73 sq M.predicted among non-blacks MDRD (S/P/Bld) [Vol rate/Area] 51 mL/min/{1.73_m2} Low >60 [facility] Comment on above: Result Comment: Non- GFR Calc Performed By: #### L 503.6005 #### [facility] [address] [place], [address] Glucose [Mass/Vol] 134 mg/dL High 74-106 [facility] Comment on above: Result Comment: Fast ing Glucose result greater than or equal to 126 mg/dL suggests DIABETES MELLITUS per A.D.A. criteria. Performed By: #### L 503.6005 #### [facility] [address] [place], [address] Potassium [Moles/Vol] 4.1 mmol/L Normal 3.5-5.1 [facility] Comment on above: Performed By: #### L 503.6005 #### [facility] [address] [place], [address] Sodium [Moles/Vol] 140 mmol/L Normal 136-145 [facility] Comment on above: Performed By: #### L 503.6005 #### [facility] [address] [place], [address] Urea nitrogen [Mass/Vol] 39 mg/dL High 7-18 [facility] Comment on above: Performed By: #### L 503.6005 #### [facility] [address] [place], [address] CBC W/Diff, Automatedon 01-0 -2024 Absolute Lymph 2.98 X10 3/uL Normal 0.83-4.51 [facility] Comment on above: Performed By: #### L 503.6005 #### [facility] [address] [place], [address] Absolute Neut 9.9 X10 3/uL High 2.0-7.7 [facility] Comment on above: Performed By: #### L 503.6005 #### [facility] [address] [place], [address] Basophils/100 WBC (Bld) 0.5 % Normal 0-1 [facility] Comment on above: Performed By: #### L 503.6005 #### [facility] [address] [place], [address] Eosinophils/100 WBC (Bld) 2.1 % Normal 0-5 [facility] Comment on above: Performed By: #### L 503.6005 #### [facility] [address] [place], [address] Erythrocyte distribution width (RBC) [Ratio] 12.6 % Normal 11.6-14.6 [facility] Comment on above: Performed By: #### L 503.6005 #### [facility] [address] [place], [address] Hematocrit (Bld) [Volume fraction] 44.4 % Normal 40-54 [facility] Comment on above: Performed By: #### L 503.6005 #### [facility] [address] [place], [address] Hemoglobin (Bld) [Mass/Vol] 14.9 g/dL Normal 13.0-16.5 [facility] Comment on above: Performed By: #### L 503.6005 #### [facility] [address] [place], [address] IG% 1.000 High 0.0-0.9 [facility] Comment on above: Result Comment: IG% - Immature Granulocytes (promyelocytes, myelocytes and metamyelocytes) > 1% indicates that a LEFT SHIFT is Present. Performed By: #### L 503.6005 #### [facility] [address] [facility] [address] [place], [address] Lymphocytes/100 WBC (Bld) 20.5 % Normal 19-41 [facility] Comment on above: Performed By: #### L 503.6005 #### [facility] [address] [place], [address] MCH (RBC) [Entitic mass] 30.2 pg Normal 27.0-32.0 [facility] Comment on above: Performed By: #### L 503.6005 #### [facility] [address] [place], [address] MCHC (RBC) [Mass/Vol] 33.6 g/dL Normal 32-36 [facility] Comment on above: Performed By: #### L 503.6005 #### [facility] [address] [place], [address] MCV (RBC) [Entitic vol] 90.1 fL Normal 80-94 [facility] Comment on above: Performed By: #### L 503.6005 #### [facility] [address] [place], [address] Monocytes/100 WBC (Bld) 7.8 % Normal 0-10 [facility] Comment on above: Performed By: #### L 503.6005 #### [facility] [address] [place], [address] Neutrophils/100 WBC (Bld) 68.1 % Normal 47-70 [facility] Comment on above: Performed By: #### L 503.6005 #### [facility] [address] [place], [address] Nucleated RBC (Bld) [#/Vol] 0 10*3/uL Normal 0-5 [facility] Comment on above: Performed By: #### L 503.6005 #### [facility] [address] [place], [address] Platelet mean volume (Bld) [Entitic vol] 10.2 fL Normal 6.2-12.0 [facility] Comment on above: Performed By: #### L 503.6005 #### [facility] [address] [place], [address] Platelets (Bld) [#/Vol] 218 10*3/uL Normal 150-450 [facility] Comment on above: Performed By: #### L 503.6005 #### [facility] [address] [place], [address] RBC (Bld) [#/Vol] 4.93 10*6/uL Normal 4.6-6.[address] [facility] Comment on above: Performed By: #### L 503.6005 #### [facility] [address] [place], [address] RDW SD 41.5 fl Normal 35.1-43.9 [facility] Comment on above: Performed By: #### L 503.6005 #### [facility] [address] [place], [address] WBC (Bld) [#/Vol] 14.6 10*3/uL High 4.4-11.[address] [facility] Comment on above: Performed By: #### L 503.6005 #### [facility] [address] [place], [address] Chest 1 View (Portable)on Chest 1 View (Portable) [facility] Imaging Services [address] [place], [place] [address] Chest 1 View (Portable) MR#: [id number] Acct: [id number] Name: ALLAN LARA Rep #: [id number] : 1950 M 73 From: Rudi Loya PCP: Dr. Simone Messer MD Status: PRE ER Study: Chest 1 View (Portable) Date of Exam: 03/09/24 Exam# [id number] Ordering Dr: Jose Taveras DO [id number] INDICATION: cough EXAMINATION/TECHNIQU E: X-RAY - XR [...] Dr. Simone Messer MD; Jose Taveras DO Weather Teacher: Signed Normal [facility] Emergency Department Summary on 03-09-2024 Emergency Department Summary [facility] Medical Records Department [address] [place] [address] Emergency Department Summary 03/09/24 MR#: [id number] Acct: [id number] Name: ALLAN LARA Rep #: [id number] : 1950 73 From: Jose Taveras DO PCP: Dr. Simone Messer MD Status:REG ER Location: ED HPI History of Present Illness Chief Complaint: Mental Status Change Informant: SNF Narrative Narrative: Patient is a 73-year-old male with past medical history of hypothyroidism schizoaffective disorder delusional disorder and BPH who is typically alert and oriented to person only. [facility] felt that he was displaying increased weakness this evening and they reported that his vitals were abnormal and with this that he was sent in for evaluation. The patient is alert and oriented to person only and therefore cannot offer any further history [facility] Medical History Neoplasm of right kidney [...] the ER at his baseline mental status. detention reported that his vitals were deranged with low room air p (more content not included)... Normal [facility] Liver Profileon 03-09-2024 Albumin [Mass/Vol] 3.3 g/dL Normal 3.2-5.0 [facility] Comment on above: Performed By: #### L 400.0001 #### [facility] [address] [place], [address] ALK P 73 U/L Normal 45-117 [facility] Comment on above: Performed By: #### L 400.0001 #### [facility] [address] [place], [address] ALT [Catalytic activity/Vol] 12 U/L Low 16-61 [facility] Comment on above: Performed By: #### L 400.0001 #### [facility] [address] [place], [address] AST [Catalytic activity/Vol] 9 U/L Low 15-37 [facility] Comment on above: Performed By: #### L 400.0001 #### [facility] [address] [place], [address] Bilirubin [Mass/Vol] 0.60 mg/dL Normal 0.20-1.00 [facility] Comment on above: Result Comment: For patients on eltrombopag therapy, use of Dimension [place] TBIL is not recommended. Performed By: #### L 400.0001 #### [facility] [address] [facility] [place], [address] Bilirubin.direct [Mass/Vol] 0.21 mg/dL Normal 0.00-0.30 [facility] Comment on above: Performed By: #### L 400.0001 #### [facility] [address], [address] Globulin (S) [Mass/Vol] 3.8 g/dL Normal 2.2-4.2 [facility] Comment on above: Performed By: #### L 400.0001 #### [facility] [address] [place], [address] T PROT 7.1 g/dL Normal 6.4-8.2 [facility] Comment on above: Performed By: #### L 400.0001 #### [facility] [address] [place], [place] [address]e. [place], [address] M100.678on 03-09-2024 M100.678 Pending SARS-CoV-2 (COVID 19) Negative INFLUENZA A Negative INFLUENZA B Negative RSV PCR Negative Normal [facility] Comment on above: Performed By: #### L 503.6005 #### [facility] [address] [place], [address] Thyroid Stim Hormone (TSH)on 03-09-2024 TSH 1.300 uIU/mL Normal 0.358-3.740 [facility] Comment on above: Performed By: #### L 400.0001 #### [facility] [address] [place], [address] Urinalysis, Completeon 03-09 BACTERIA 0 SEEN Normal None Seen [facility] Comment on above: Order Comment: NOEL CTOR TO SPECIFY Performed By: #### L 503.6005 #### [facility] [address] [place], [address] EPI,SQUAMOUS 0 SEEN Normal 0-5 [facility] Comment on above: Order Comment: COLLE CTOR TO SPECIFY Performed By: #### L 503.6005 #### [facility] [address] [place], [address] Mucus Ql (Urine sed) 0 SEEN Normal [facility] Comment on above: Order Comment: COLLE CTOR TO SPECIFY Performed By: #### L 503.6005 #### [facility] [address] [place], [address] RBC 0 SEEN Normal 0-5 [facility] Comment on above: Order Comment: COLLE CTOR TO SPECIFY Performed By: #### L 503.6005 #### [facility] [address] [place], [address] WBC 0 SEEN Normal 0-5 [facility] Comment on above: Order Comment: COLLE CTOR TO SPECIFY Performed By: #### L 503.6005 #### [facility] [address] [place], [address] Basophil percentageOrdered B y: Simone Messer on 09-30-2022 Basophil percentage < 0.9 mg/dL 0.70-1.30 [facility] No Panel InformationOrdered By: Simone Messer on 09-30-2022 Bedside Estimated GFR (eGFR) > 60.0000 mL/min >60 [facility] Absolute lymphocyte countOrd ered By: Dr. Crawford on 07-06-2022 Lymphocytes Auto (Unsp spec) [#/Vol] 2.45 10*3/uL 0.83-4.51 [facility] Basophil percentageOrdered B y: Dr. Crawford on 07-06-2022 Basophils/100 WBC (Bld) 0.4 % 0-1 [facility] Chloride [Moles/Vol] 109 mmol/L 98-107 [facility] Eosinophils/100 WBC (Bld) 1.1 % 0-5 [facility] Glucose [Mass/Vol] 114 mg/dL 74-106 [facility] Comment on above: Fasting Glucose resu lt from 100 to 125 mg/dL suggests IMPAIRED HOMEOSTASIS per A.D.A. criteria. Neutrophils (Bld) [#/Vol] 15.6 10*3/uL 2.0-7.7 [facility] Neutrophils/100 WBC (Bld) 78.6 % 47-70 [facility] Potassium [Moles/Vol] 3.2 mmol/L 3.5-5.1 [facility] Sodium [Moles/Vol] 140 mmol/L 136-145 [facility] WBC (Bld) [#/Vol] 19.9 10*3/uL 4.4-11.[address] [facility] Blood erythrocytes count (nu mber/volume)Ordered By: Dr. Crawford on 07-06-2022 RBC (Bld) [#/Vol] 4.27 10*6/uL 4.6-6.[address] [facility] Blood hemoglobin measurement (mass/volume)Ordered By: Dr. Crawford on 07-06-2022 Hemoglobin (Bld) [Mass/Vol] 12.9 g/dL 13.0-16.5 [facility] Blood lymphocytes/100 leukoc ytesOrdered By: Dr. Crawford on 07-06-2022 Lymphocytes/100 WBC (Bld) 12.3 % 19-41 [facility] Blood monocytes/100 leukocyt esOrdered By: Dr. Crawford on 07-06-2022 Monocytes/100 WBC (Bld) 6.5 % 0-10 [facility] Blood platelet mean volumeOr dered By: Dr. Crawford on 07-06-2022 Platelet mean volume (Bld) [Entitic vol] 10.6 fL 6.2-12.0 [facility] Culture, urineOrdered By: Dr Reva Shaikh on 07-06-2022 Bacteria identified Cx Nom (U) Culture exhibits no growth. [facility] Determination of erythrocyte mean corpuscular volume (MCV)Ordered By: Dr. Crawford on 07-06-2022 MCV (RBC) [Entitic vol] 92.0 fL 80-94 [facility] Hematocrit Auto (Bld) [Volum e fraction]Ordered By: Dr. Crawford on 07-06-2022 Hematocrit (Bld) [Volume fraction] 39.3 % 40-54 [facility] - Chemistry and C hemistry - challengeOrdered By: Dr. Crawford on 07-06-2022 CO2 [Moles/Vol] 25.0 mmol/L 21.0-32.0 [facility] Urea nitrogen/Creatinine [Mass ratio] 12.2 mg/mg 10-20 [facility] - Hematology and Cell countsOrdered By: Dr. Crawford on 07-06-2022 Erythrocyte distribution width (RBC) [Entitic vol] 42.5 fL 35.1-43.9 [facility] Erythrocyte distribution width (RBC) [Ratio] 12.8 % 11.6-14.6 [facility] Immature granulocytes/100 WBC (Bld) 1.100 % 0.0-0.9 [facility] Comment on above: IG% - Immature Granu locytes (promyelocytes, myelocytes and metamyelocytes) > 1% indicates that a LEFT SHIFT is Present. MCH (RBC) [Entitic mass] 30.2 pg 27.0-32.0 [facility] Nucleated RBC/100 WBC (Bld) [Ratio] 0 % 0-5 [facility] MCHC Auto (RBC) [Mass/Vol]Or dered By: Dr. Crawford on 07-06-2022 MCHC (RBC) [Mass/Vol] 32.8 g/dL 32-36 [facility] No Panel InformationOrdered By: Dr. Crawford on 07-06-2022 Estimated Creatinine Clearance Calc 73.10 ml/min [facility] Estimated GFR (MDRD) Amer 106 mL/min >60 [facility] Comment on above: GFR Calc Estimated GFR (MDRD) Non-Af Amer 88 mL/min >60 [facility] Comment on above: Non- GFR Calc Platelets bldOrdered By: Dr. Crawford on 07-06-2022 Platelets (Bld) [#/Vol] 220 10*3/uL 150-450 [facility] Serum or plasma calcium vannessa urement (mass/volume)Ordered By: Dr. Crawford on 07-06-2022 Calcium [Mass/Vol] 8.4 mg/dL 8.5-10.1 [facility] Serum or plasma creatinine m easurement (mass/volume)Ordered By: Dr. Crawford on 07-06-2022 Creatinine [Mass/Vol] 0.90 mg/dL 0.70-1.30 [facility] Comment on above: The validity of the calculated GFR & GFRAA in patients over 70 years has not been determined. Clinical correlation is essential. Serum or plasma urea nitroge n measurement (mass/volume)Ordered By: Dr. Crawford on 07-06-2022 Urea nitrogen [Mass/Vol] 11 mg/dL 7-18 [facility] Thin prep Papanicolaou smear with manual screeningOrdered By: Dr. Crawford on 07-06-2022 Thin prep Papanicolaou smear with manual screening 6 5-15 [facility] No Panel InformationOrdered By: Dr. Verma on 07-05-2022 Atypical Lymphocytes 1+ % [facility] Review by pathologistOrdered By: Dr. Verma on 07-05-2022 Pathologist review Clemente (Unsp spec) [Interp] Reviewed [facility] Comment on above: Previous reported re sult: Lana medellin Edited by: INNA on 07/05/22:1302Neutrophilic leukocytosis.Clinical correlation necessary.Dawson Moreira M.D. 07/05/22 AMENDED REPORT 07/05/22 1302 PATH REV previously reported as: Lana medellin Absolute lymphocyte countOrd ered By: Dr. Shaikh on 07-04-2022 Lymphocytes Auto (Unsp spec) [#/Vol] 0.87 10*3/uL 0.83-4.51 [facility] Basophil percentageOrdered B y: Dr. Shaikh on 07-04-2022 Lactate [Moles/Vol] 3.1 mmol/L 0.4-2.[address] [facility] Comment on above: Critical Result(s) C alled at: 08:44:55 07/04/2022 by: Selena Evans to [facility]. Results read back by same. Basophil percentage 0-5 SEEN /hpf 0-5 [facility] Basophils/100 WBC (Bld) 0.2 % 0-1 [facility] Bilirubin [Mass/Vol] 0.60 mg/dL 0.20-1.00 [facility] Comment on above: For patients on eltr ombopag therapy, use of Dimension [place] TBIL is not recommended. Chloride [Moles/Vol] 104 mmol/L 98-107 [facility] Eosinophils/100 WBC (Bld) 0.0 % 0-5 [facility] Glucose [Mass/Vol] 212 mg/dL 74-106 [facility] Comment on above: Glucose result great er than or equal to 200 mg/dLsuggests DIABETES MELLITUS per A.D.A. criteria. Lactate [Moles/Vol] 2.9 mmol/L 0.4-2.[address] [facility] Comment on above: Critical Result(s) C alled at: 03:34:34 07/04/2022 by: Mohamud Dodd. CALLED TO [place] [id number] (ED) (RN) Results read back by same. Neutrophils (Bld) [#/Vol] 22.2 10*3/uL 2.0-7.7 [facility] Neutrophils/100 WBC (Bld) 91.2 % 47-70 [facility] Potassium [Moles/Vol] 4.6 mmol/L 3.5-5.1 [facility] Protein [Mass/Vol] 7.5 g/dL 6.4-8.2 [facility] Sodium [Moles/Vol] 140 mmol/L 136-145 [facility] WBC (Bld) [#/Vol] 24.4 10*3/uL 4.4-11.[address] [facility] Bilirubin Test strip Ql (U)O rdered By: Dr. Shaikh on 07-04-2022 Bilirubin Ql (U) Negative Negative [facility] Blood erythrocytes count (nu mber/volume)Ordered By: Dr. Shaikh on 07-04-2022 RBC (Bld) [#/Vol] 5.39 10*6/uL 4.6-6.[address] [facility] Blood hemoglobin measurement (mass/volume)Ordered By: Dr. Shaikh on 07-04-2022 Hemoglobin (Bld) [Mass/Vol] 15.9 g/dL 13.0-16.5 [facility] Blood lymphocytes/100 leukoc ytesOrdered By: Dr. Shaikh on 07-04-2022 Lymphocytes/100 WBC (Bld) 3.6 % 19-41 [facility] Blood monocytes/100 leukocyt esOrdered By: Dr. Shaikh on 07-04-2022 Monocytes/100 WBC (Bld) 3.7 % 0-10 [facility] Blood platelet mean volumeOr dered By: Dr. Shaikh on 07-04-2022 Platelet mean volume (Bld) [Entitic vol] 10.7 fL 6.2-12.0 [facility] Culture, urineOrdered By: Rodrigo Shaikh on 07-04-2022 Bacteria identified Cx Nom (U) Culture exhibits no growth. [facility] Determination of erythrocyte mean corpuscular volume (MCV)Ordered By: Dr. Shaikh on 07-04-2022 MCV (RBC) [Entitic vol] 91.8 fL 80-94 [facility] Hematocrit Auto (Bld) [Volum e fraction]Ordered By: Dr. Shaikh on 07-04-2022 Hematocrit (Bld) [Volume fraction] 49.5 % 40-54 [facility] Hyaline casts LM.LPF (Urine sed) [#/Area]Ordered By: Dr. Shaikh on 07-04-2022 Hyaline casts (Urine sed) [#/Area] 0 /[LPF] 0-5 [facility] INR in Blood by Coagulation assayOrdered By: Dr. Shaikh on 07-04-2022 INR Coag (Bld) [Relative time] 1.0 {INR} [facility] Ketones Test strip Ql (U)Ord ered By: Dr. Shaikh on 07-04-2022 Ketones Ql (U) Negative Negative [facility] - Chemistry and C hemistry - challengeOrdered By: Dr. Shaikh on 07-04-2022 ALP [Catalytic activity/Vol] 75 U/L 45-117 [facility] ALT [Catalytic activity/Vol] 20 U/L 16-61 [facility] CO2 [Moles/Vol] 27.0 mmol/L 21.0-32.0 [facility] Globulin (S) [Mass/Vol] 3.9 g/dL 2.2-4.2 [facility] Lipase [Catalytic activity/Vol] 37 U/L 13-75 [facility] Comment on above: Please note:LIPASE r evised reference range effective 22. New Lipase methodology. Expected to produce lower values than the previous assay method. NEW Reference Range: 13 - 75 U/L Urea nitrogen/Creatinine [Mass ratio] 12.0 mg/mg 10-20 [facility] - CoagulationOrde red By: Dr. Shaikh on 07-04-2022 aPTT Coag (Bld) [Time] 23.7 s 24.1-36.2 [facility] PT Coag (PPP) [Time] 12.8 s 11.7-14.9 [facility] - Hematology and Cell countsOrdered By: Dr. Shaikh on 07-04-2022 Erythrocyte distribution width (RBC) [Entitic vol] 42.8 fL 35.1-43.9 [facility] Erythrocyte distribution width (RBC) [Ratio] 12.8 % 11.6-14.6 [facility] Immature granulocytes/100 WBC (Bld) 1.300 % 0.0-0.9 [facility] Comment on above: IG% - Immature Granu locytes (promyelocytes, myelocytes and metamyelocytes) > 1% indicates that a LEFT SHIFT is Present. MCH (RBC) [Entitic mass] 29.5 pg 27.0-32.0 [facility] Nucleated RBC/100 WBC (Bld) [Ratio] 0 % 0-5 [facility] - Microbiology an d Antimicrobial susceptibilityOrdered By: Mati Shaikh on 07-04-2022 Bacteria identified Cx Nom (Bld) No growth in 5 days. [facility] MCHC Auto (RBC) [Mass/Vol]Or dered By: Dr. Shaikh on 07-04-2022 MCHC (RBC) [Mass/Vol] 32.1 g/dL 32-36 [facility] Mucus LM Ql (Urine sed)Order ed By: Dr. Shaikh on 07-04-2022 Mucus Ql (Urine sed) 0 SEEN /hpf [facility] Nitrite Test strip Ql (U)Ord ered By: Dr. Shaikh on 07-04-2022 Nitrite Ql (U) Negative Negative [facility] No Panel InformationOrdered By: Dr. Verma on 07-04-2022 Vitamin D 25-Hydroxy 85.4 ng/mL [facility] Comment on above: Vitamin D 25(OH) Sta tus Range Deficiency <20 ng/mL (50nmol/L) Insufficiency 20 - 30 ng/mL (50 - 75 nmol/L) Sufficiency 30 - 100 ng/mL (75 - 250 nmol/L) Toxicity >100 ng/mL (>250 nmol/L) No Panel InformationOrdered By: Dr. Shaikh on 07-04-2022 Estimated Creatinine Clearance Calc 34.45 ml/min [facility] Estimated GFR (MDRD) Amer 45 mL/min >60 [facility] Comment on above: GFR Calc Estimated GFR (MDRD) Non-Af Amer 37 mL/min >60 [facility] Comment on above: Non- GFR Calc Troponin I High Sensitivity 6 pg/mL 3.0-78.0 [facility] Comment on above: Please Note: New Mary[place] t Units and Gender Specific Reference Ranges. For more information see Policy Stat Procedure [place] High Sensitivity Troponin (TNIH) and attachments. Platelets bldOrdered By: Dr. Shaikh on 07-04-2022 Platelets (Bld) [#/Vol] 356 10*3/uL 150-450 [facility] Protein Test strip Ql (U)Ord ered By: Dr. Shaikh on 07-04-2022 Protein Ql (U) 15 mg/dl Negative [facility] Serum or plasma albumin vannessa urement (mass/volume)Ordered By: Dr. Shaikh on 07-04-2022 Albumin [Mass/Vol] 3.6 g/dL 3.2-5.0 [facility] Serum or plasma albumin/glob ulin mass ratioOrdered By: Dr. Shaikh on 07-04-2022 Albumin/Globulin [Mass ratio] 0.9 {ratio} 0.9-2.4 [facility] Serum or plasma calcium vannessa urement (mass/volume)Ordered By: Dr. Shaikh on 07-04-2022 Calcium [Mass/Vol] 9.7 mg/dL 8.5-10.1 [facility] Serum or plasma creatinine m easurement (mass/volume)Ordered By: Dr. Shaikh on 07-04-2022 Creatinine [Mass/Vol] 1.91 mg/dL 0.70-1.30 [facility] Comment on above: The validity of the calculated GFR & GFRAA in patients over 70 years has not been determined. Clinical correlation is essential. Serum or plasma urea nitroge n measurement (mass/volume)Ordered By: Dr. Shaikh on 07-04-2022 Urea nitrogen [Mass/Vol] 23 mg/dL 7-18 [facility] Squamous epithelial cells de tection in urine sediment by light microscopyOrdered By: Dr. Shaikh on 07-04-2022 Epithelial cells.squamous LM Ql (Urine sed) 0 SEEN /hpf 0-5 [facility] Thin prep Papanicolaou smear with manual screeningOrdered By: Dr. Shaikh on 07-04-2022 Thin prep Papanicolaou smear with manual screening 13 U/L 15-37 [facility] Thin prep Papanicolaou smear with manual screening 9 5-15 [facility] Urine blood detectionOrdered By: Dr. Shaikh on 07-04-2022 RBC Ql (U) Negative Negative [facility] RBC Ql (U) 0 SEEN /hpf 0-5 [facility] Urine clarityOrdered By: Dr. Shaikh on 07-04-2022 Clarity (U) Clear Clear [facility] Urine color determinationOrd ered By: Dr. Shaikh on 07-04-2022 Color (U) Yellow Yellow [facility] Urine glucose detectionOrder ed By: Dr. Shaikh on 07-04-2022 Glucose Ql (U) Normal mg/dl Normal [facility] Urine leukocyte esterase det ection by dipstickOrdered By: Dr. Shaikh on 07-04-2022 Leukocyte esterase Test strip Ql (U) Negative Negative [facility] Urine pHOrdered By: Dr. Breanne rhodes on 07-04-2022 pH (U) 5.0 [pH] 5.0 - 8.0 [facility] Urine sediment bacteria coun t by microscopy (number/high power field)Ordered By: Dr. Shaikh on 07-04-2022 Bacteria LM.HPF (Urine sed) [#/Area] 1 /[HPF] None Seen [facility] Urine specific gravity measu rementOrdered By: Dr. Shaikh on 07-04-2022 Specific gravity (U) [Rel density] 1.015 1.002-1.030 [facility] Urobilinogen Auto test strip Ql (U)Ordered By: Dr. Shaikh on 07-04-2022 Urobilinogen Ql (U) 1 mg/dl Normal [facility] Whole blood hemoglobin A1c/t otal hemoglobin ratio (mass fraction)Ordered By: Dr. Verma on 07-04-2022 HbA1c (Bld) [Mass fraction] 5.8 % 3.8-5.6 [facility] Comment on above: Normal < 5.7 % Predi abetic 5.7 - 6.4 % Diabetic >or= 6.5 % Please note range changes. AUTO DIFFon 09-15-2021 Baso Count 0.04 x1000 Normal 0.00-0.20 [facility] Comment on above: Performed By: #### 1 [id number] #### [facility] Services [address] [place] [id number] [employer] Change Leader: Herb Quiroz MD Basos % 0.4 % Normal [facility] Comment on above: Performed By: #### 1 [id number] #### [facility] [address] [place] [id number] [employer] Change Leader: Herb Quiroz MD Eos Count 0.32 x1000 Normal 0.00-0.50 [facility] Comment on above: Performed By: #### 1 [id number] #### [facility] [address] [place], [place] [id number] Sales And Service Change Leader: Herb Quiroz MD Eosinophils/100 WBC (Bld) 2.8 % Normal [facility] Comment on above: Performed By: #### 1 [id number] #### [facility] [address] [place] [id number] [employer] Change Leader: Herb Quiroz MD Lymph Count 2.13 x1000 Normal 1.20-4.80 [facility] Comment on above: Performed By: #### 1 [id number] #### [facility] [address] [place] [phone] [employer] Service Change Leader: Herb Quiroz MD Lymphocytes/100 WBC (Bld) 18.7 % Normal [facility] Comment on above: Performed By: #### 1 [id number] #### [facility] [address] [place] [phone] [employer] Service Change Leader: Herb Quiroz MD Marin Count 0.89 x1000 Normal 0.10-1.00 [facility] Comment on above: Performed By: #### 1 [id number] #### [facility] [address] [place] [address] Sales And Service Change Leader: Herb Quiroz MD Monocytes/100 WBC (Bld) 7.8 % Normal [facility] Comment on above: Performed By: #### 1 [id number] #### [facility] [address] [place] [phone] [employer] Change Leader: Herb Quiroz MD Neutrophil Count (ANC) 8.03 x1000 Normal 1.40-8.80 [facility] [place] [facility] Comment on above: Performed By: #### 1 [id number] #### [facility] [address] [place] [address] Sales And Service Change Leader: Herb Quiroz MD Neutrophils/100 WBC (Bld) 70.3 % Normal [facility] Comment on above: Performed By: #### 1 [id number] #### [facility] [address] [place] [address] Sales And Service Change Leader: Herb Quiroz MD [facility] 09-15-2021 Albumin/Globulin [Mass ratio] 1.1 {ratio} Normal [facility] Comment on above: Performed By: #### 1 [id number] #### [facility] [address] [place] [address] Sales And Service Change Leader: Herb Quiroz MD GFR AA >60 Normal [facility] Comment on above: Result Comment: Afri can Ethiopian GFR Calc Medical judgement is necessary to [...] for drug dosing. Performed By: #### 1 [id number] #### [facility] [address] [place] [address] Sales And Service Change Leader: Herb Quiroz MD Glomerular Filtration Rate >60 Normal [facility] Comment on above: Result Comment: Non [...] for drug dosing. Performed By: #### 1 [id number] #### [facility] [address] [place], [place] [address] Sales And Service Change Leader: Herb Quiroz MD Osmolality [Osmolality] 285 mosm/kg Normal 275-295 [facility] Comment on above: Performed By: #### 1 [id number] #### [facility] [address] [place], [place] [address] Sales And Service Change Leader: Herb Quiroz MD Urea nitrogen/Creatinine [Mass ratio] 13.2 mg/mg Normal [facility] Comment on above: Performed By: #### 1 [id number] #### [facility] [address] [place], [place] [address] Sales And Service Change Leader: Herb Quiroz MD Albumin [Mass/Vol] 3.2 g/dL Low 3.4-5.0 [facility] Comment on above: Performed By: #### 1 [id number] #### [facility] [address] [place], [place] [address] Sales And Service Change Leader: Herb Quiroz MD Alk Phos 75 unit/L Normal 45-117 [facility] Comment on above: Performed By: #### 1 [id number] #### [facility] [address] [place], [place] [address] Sales And Service Change Leader: Herb Quiroz MD Bilirubin [Mass/Vol] 0.26 mg/dL Normal 0.20-1.00 [facility] Comment on above: Result Comment: Use of this assay is not recommended for patients undergoing treatment with eltrombopag due to the potential for falsely elevated results. Performed By: #### 1 [id number] #### [facility] [address] [place] [address] Sales And Service Change Leader: Herb Quiroz MD Calcium [Mass/Vol] 8.7 mg/dL Normal 8.5-10.5 [facility] Comment on above: Performed By: #### 1 [id number] #### [facility] [address] [place] [address] Sales And Service Change Leader: Herb Quiroz MD Chloride [Moles/Vol] 110 mmol/L High 100-109 [facility] Comment on above: Performed By: #### 1 [id number] #### [facility] [address] [place] [address] Sales And Service Change Leader: Herb Quiroz MD CO2 [Moles/Vol] 27.5 mmol/L Normal 21.0-32.0 [facility] Comment on above: Performed By: #### 1 [id number] #### [facility] [address] [place] [address] Sales And Service Change Leader: Herb Quiroz MD Creatinine [Mass/Vol] 1.1 mg/dL Normal 0.7-1.3 [facility] Comment on above: Performed By: #### 1 [id number] #### [facility] [address] [place] [address] Sales And Service Change Leader: Herb Quiroz MD Globulin (S) [Mass/Vol] 2.9 g/dL Normal [facility] Comment on above: Performed By: #### 1 [id number] #### [facility] [address] [place] [address] Sales And Service Change Leader: Herb Quiroz MD Glucose [Mass/Vol] 122 mg/dL High 72-100 [facility] Comment on above: Result Comment: Nori puncture should occur prior to sulfasalazine administration due to the potential for falsely depressed results. Venipuncture should occur prior to sulfapyridine administration due to the potential falsely elevated results. Baseline assay values before administration of sulfasalazine and sulfapyridine therapy would not be affected. Performed By: #### 1 [id number] #### [facility] [address] [place], [place] [address] Sales And Service Change Leader: Herb Quiroz MD GOT 7 unit/L Low 15-37 [facility] Comment on above: Result Comment: Nori puncture should occur prior to sulfasalazine and/or sulfapyridine administration due to the potential for falsely depressed results. Baseline assay values before administration of sulfasalazine and sulfapyridine therapy would not be affected. Performed By: #### 1 [id number] #### [facility] [place] [id number] Sales And Service Change Leader: Herb Quiroz MD GPT 14 unit/L Low 16-61 [facility] Comment on above: Result Comment: Nori puncture should occur prior to sulfasalazine and/or sulfapyridine administration due to the potential for falsely depressed results. Baseline assay values before administration of sulfasalazine and sulfapyridine therapy would not be affected. Performed By: #### 1 [id number] #### [facility] [address] [place], [place] [address] Sales And Service Change Leader: Herb Quiroz MD Potassium [Moles/Vol] 4.0 mmol/L Normal 3.5-5.1 [facility] Comment on above: Performed By: #### 1 [id number] #### [facility] [address] [place], [place] [address] Sales And Service Change Leader: Herb Quiroz MD Protein [Mass/Vol] 6.1 g/dL Normal 6.0-8.5 [facility] Comment on above: Performed By: #### 1 [id number] #### [facility] [address] [place] [address] Sales And Service Change Leader: Herb Quiroz MD Sodium [Moles/Vol] 142 mmol/L Normal 135-145 [facility] Comment on above: Performed By: #### 1 [id number] #### [facility] [address] [place], [place] [address] Sales And Service Change Leader: Herb Quiroz MD Urea nitrogen [Mass/Vol] 15 mg/dL Normal 10-20 [facility] Comment on above: Performed By: #### 1 [id number] #### [facility] [address] [place] [address] Sales And Service Change Leader: Herb Quiroz MD CT ABD PELVIS WO [...] TEJEDA MD Signed Out: 09/15/21 12:09:47 Normal [facility] ED Adult Data - Texton 09-15 [...] Unknown Status : N/A Preferred Verbal : Serbian Giovana Glover RN - 09/15/2021 11:09 EDT [...] Problems(Active) At risk for falls (SNOMED CT :538245073 ) Name of Problem: At risk for falls ; Recorder: SYSTEM; Confirmation: Confirmed ; Classification: Nursing ; Code: 779322384 ; Last Updated: 03/28/2020 15:22 EST ; Life Cycle Date: 03/28/2020 ; Life Cycle Status: Active ; Vocabulary: SNOMED CT ; Comments: 03/28/2020 15:22 - SYSTEM Problem added automatically by system based on documentation of a admission to the hospital. Auditory hallucinations (SNOMED CT :584346953 ) Name of Problem: Auditory hallucinations ; Recorder: Juliana Duke RN; Confirmation: Confirmed ; Classification: Medical ; Code: 340880053 ; Contributor System: PowerChart ; Last Updated: 03/28/2020 13:07 EST ; Life Cycle Date: 03/28/2020 ; Life Cycle Status: Active ; Vocabulary: SNOMED CT COVID-19 (SNOMED CT :6123973786 ) Name of Problem: COVID-19 ; Recorder: Juliana Duke RN; Confirmation: Confirmed ; Classification: Medical ; Code: 9115574502 ; Contributor System: PowerChart ; Last Updated: 03/28/2020 13:07 EST ; Life Cycle Date: 03/28/2020 ; Life Cycle Status: Active ; Vocabulary: SNOMED CT Dementia (SNOMED CT :95854217 ) Name of Problem: Dementia ; Recorder: Juliana Duke RN; Confirmation: Confirmed ; Classification: Medical ; Code: 02604997 ; Contributor System: PowerChart ; Last Updated: 03/28/2020 13:07 EST ; Life Cycle Date: 03/28/2020 ; Life Cycle Status: Active ; Vocabulary: SNOMED CT Diabetes mellitus (SNOMED CT :087235194 ) Name of Problem: Diabetes mellitus ; Recorder: Juliana Duke RN; Confirmation: Confirmed ; Classification: Medical ; Code: 510821599 ; Contributor System: PowerChart ; Last Updated: 03/28/2020 13:07 EST ; Life Cycle Date: 03/28/2020 ; Life Cycle Status: Active ; Vocabulary: SNOMED CT HTN (hypertension) (SNOMED CT :5380622631 ) Name of Problem: HTN (hypertension) ; Recorder: Juliana Duke RN; Confirmation: Confirmed ; Classification: Medical ; Code: 4688259719 ; Contributor System: PowerChart ; Last Updated: 03/28/2020 13:07 EST ; Life Cycle Date: 03/28/2020 ; Life Cycle Status: Active ; Vocabulary: SNOMED CT Hyperlipemia (SNOMED CT :46585355 ) Name of Problem: Hyperlipemia ; Recorder: Juliana Duke RN; Confirmation: Confirmed ; Classification: Medical ; Code: 76481075 ; Contributor System: PowerChart ; Last Updated: 03/28/2020 13:07 EST ; Life Cycle Date: 03/28/2020 ; Life Cycle Status: Active ; Vocabulary: SNOMED CT Kidney neoplasm (SNOMED CT :433621 ) Name of Problem: Kidney neoplasm ; Recorder: Juliana Duke RN; Confirmation: Confirmed ; Classification: Medical ; Code: 028574 ; Contributor System: PowerChart ; Last Updated: 03/28/2020 13:06 EST ; Life Cycle Date: 03/28/2020 ; Life Cycle Status: Active ; Vocabulary: SNOMED CT Schizoaffective disorder (SNOMED CT :228389196 ) Name of Problem: Schizoaffective disorder ; Recorder: Juliana Duke RN; Confirmation: Confirmed ; Classification: Medical ; Code: 368614015 ; Contributor System: PowerChart ; Last Updated: 03/28/2020 13:06 EST ; Life Cycle Date: 03/28/2020 ; Life Cycle Status: Active ; Vocabulary: SNOMED CT Diagnoses(Active) Abdominal pain Date: 09/15/2021 ; Diagnosis Type: Reason For Visit ; Confirmation: Confirmed ; Clinical Dx: Abdominal pain ; Classification: Medical ; Clinical Service: Emergency medicine ; Code: PNED ; Probability: 0 ; Diagnosis Code: [id number] Nausea Date: 09/15/2021 ; Diagnosis Type: Reason For Visit ; Confirmation: Confirmed ; Clinical Dx: Nausea ; Classification: Medical ; Clinical Service: Emergency medicine ; Code: PNED ; Probability: 0 ; Diagnosis Code: [id number] Procedure History ED Devices Present on Arrival To E (more content not included)... Normal [facility] ED Discharge Educationon ED Discharge Education [...] Where can you learn more? Go to [email or web address].net/patientEd Enter E907 in the search box to learn more about Abdominal Pain: Care Instructions. Current as of: May 01, 2019 Content Version: 12.7 ? [employer] Care instructions adapted under license by your healthcare professional. If you have questions about a medical condition or this instruction, always ask your healthcare professional. [employer] disclaims any warranty or liability for your use of this information. Normal [facility] ED Emergency Severity Index Adult-Texton 09-15-2021 [...] Glover RN - 09/15/2021 10:51 EDT Normal [facility] ED Nrsing Adlt Triage Sep Sc [...] Glover RN - 09/15/2021 11:07 EDT Normal [facility] ED Patient Summaryon 022 ED Patient Summary [facility] Emergency Department Discharge Instructions [address] [place] [address] \.br\(Jamilahen t Copy)\.br\ \.br\Name: ALLAN LARA : 1950 \.br\Allergies: No Known Allergies\.br\Diagno sis: Diagnoses This Visit\.br\ Abdominal pain ([id number])\. br\ Abdominal pain, acute (R10.9)\.br\ Biliary colic (K80.50)\.br\ Nausea ([id number] aeg)\.br\\.br\\.br\ \.br\ Visit Date: 09/15/2021 10:50:23 \.br\ Current Date Time: 09/15/2021 14:10:50 \.br\Address: [address] [place] [address] \.br\ \.br\ \.br\Primary Care Provider: \.br\Name: CASE KAUFFMAN, JESSI H\.br\ \.br\ \.br\Emergency Department Care Providers: \.br\ Primary Physician: JUAN DANIEL HOFFMAN MD \.br\ \.br\ \.br\\.br\Thank you for choosing [facility] for your emergency care. You are very important to us. Our goal is to demonstrate our high quality medical care, and provide you with a very good patient experience.\.br\\.br \You may receive a survey about our service. Please take the time to complete the survey and return it so we can continue to enhance our service.\.br\\.br\Th ank you again for allowing the [facility] Emergency Department to care for your medical needs. If you have questions about your care or follow up information please contact us at [phone].\.br\\. br\ Follow-Up Instructions\.br\___ \.br\ALLAN LARA has been given these follow-up instructions:\.br\\. br\\.br\With: Address: When: \.br\VIKTORIYA BHATIA, General Surgery [address], [address] [place] [address]\.br\ Business (1) Within 3 to 5 days \.br\\.br\\.br\With: Address: When: \.br\JESSI AUSTIN, Internal Medicine [address], [address] [place] [address]\.br\ Business (1) Within 3 to 5 days [...] often than (more content not included)... Normal [facility] ED Physician Reporton 2021 ED Physician Report Patient: LALAN LARA Age: 71 years Sex: Male : [...] observed, normal speech observed. Medical Decision Making email manager: Time 09/15/2021 11:17:00, Rate 88, normal sinus rhythm. Electrocardiogram: Time 09/15/2021 10:46:00, rate 94, normal sinus rhythm, No ST-T changes, no ectopy, normal MS & QRS intervals. Last 24 Hours Chemistry [...] fL 09/15/21 \.br\Lymph % 18.7 % 09/15/21 \.br\Marin % 7.8 % 09/15/21 \.br\Neutrophil % 70.3 % 09/15/21 \.br\Eosin % 2.8 % 09/15/21 \.br\Basos % 0.4 % 09/15/21 \.br\Lymph Count 2.13 x1000 09/15/21 \.br\Marin Count 0.89 x1000 09/15/21 \.br\Neutrophil Count (ANC) [...] dose r (more content not included)... Normal [facility] ED Pre-Arrival Formon 2021 ED Pre-Arrival Form Pre-Arrival Summary Name: PHYSICIANS, Current Date: 09/15/2021 10:50:57 EDT Gender: Date of : Age: Pre-Arrival Type: EMS ETA: 09/15/2021 10:58:00 EDT Primary Care Physician: Presenting Problem: Pre-Arrival User: Logan Copeland Referring Source: Location: 1 [facility] Emergency Department [address] [place] [address]. [place] [address] ____ Notes: Vital Signs: Doctor Call Back: DNR Status: Miscellaneous Issues: Normal [facility] ED Progress Noteon ED Progress Note Pt presented to the ED via ambulance from [facility] with c/o increased mid abdominal pain. Per [...] + tenderness to palpation. Pt placed on card maker. EKG was completed. IV was placed and labs were drawn. Dr Hoffman was at bedside. 1140- Pt in CT 1250- Physicians called for transport. - 90 minute ETA 1300- Report called to Nurse at [facility]. Nurse updated with patients return and results. Results and paperwork to be sent back with Physicians. 1340- Physicians here for transport. Paperwork given. Pt updated with treatment plan. Normal [facility] ED Triage Adult-Texton 09-15 ED Triage Adult-Text ED Triage Entered On: 09/15/2021 11:09 EDT Performed On: 09/15/2021 10:50 EDT by Giovana Glover RN Triage (As Of: 09/15/2021 11:09:04 EDT) Problems(Active) At risk for falls (SNOMED CT :518650237 ) Name of Problem: At risk for falls ; Recorder: SYSTEM; Confirmation: Confirmed ; Classification: Nursing ; Code: 900014736 ; Last Updated: 03/28/2020 15:22 EST ; Life Cycle Date: 03/28/2020 ; Life Cycle Status: Active ; Vocabulary: SNOMED CT ; Comments: 03/28/2020 15:22 - SYSTEM Problem added automatically by system based on documentation of a admission to the hospital. Auditory hallucinations (SNOMED CT :192671065 ) Name of Problem: Auditory hallucinations ; Recorder: Juliana Duke RN; Confirmation: Confirmed ; Classification: Medical ; Code: 498779709 ; Contributor System: RemotemedicalChart ; Last Updated: 03/28/2020 13:07 EST ; Life Cycle Date: 03/28/2020 ; Life Cycle Status: Active ; Vocabulary: SNOMED CT COVID-19 (SNOMED CT :7619595621 ) Name of Problem: COVID-19 ; Recorder: Juliana Duke RN; Confirmation: Confirmed ; Classification: Medical ; Code: 8332011390 ; Contributor System: PowerChart ; Last Updated: 03/28/2020 13:07 EST ; Life Cycle Date: 03/28/2020 ; Life Cycle Status: Active ; Vocabulary: SNOMED CT Dementia (SNOMED CT :38810509 ) Name of Problem: Dementia ; Recorder: Juliana Duke RN; Confirmation: Confirmed ; Classification: Medical ; Code: 33497564 ; Contributor System: PowerChart ; Last Updated: 03/28/2020 13:07 EST ; Life Cycle Date: 03/28/2020 ; Life Cycle Status: Active ; Vocabulary: SNOMED CT Diabetes mellitus (SNOMED CT :257721812 ) Name of Problem: Diabetes mellitus ; Recorder: Juliana Duke RN; Confirmation: Confirmed ; Classification: Medical ; Code: 123303679 ; Contributor System: PowerChart ; Last Updated: 03/28/2020 13:07 EST ; Life Cycle Date: 03/28/2020 ; Life Cycle Status: Active ; Vocabulary: SNOMED CT HTN (hypertension) (SNOMED CT :0810829819 ) Name of Problem: HTN (hypertension) ; Recorder: Juliana Duke RN; Confirmation: Confirmed ; Classification: Medical ; Code: 2244040956 ; Contributor System: PowerChart ; Last Updated: 03/28/2020 13:07 EST ; Life Cycle Date: 03/28/2020 ; Life Cycle Status: Active ; Vocabulary: SNOMED CT Hyperlipemia (SNOMED CT :83725777 ) Name of Problem: Hyperlipemia ; Recorder: Juliana Duke RN; Confirmation: Confirmed ; Classification: Medical ; Code: 50661268 ; Contributor System: PowerChart ; Last Updated: 03/28/2020 13:07 EST ; Life Cycle Date: 03/28/2020 ; Life Cycle Status: Active ; Vocabulary: SNOMED CT Kidney neoplasm (SNOMED CT :458339 ) Name of Problem: Kidney neoplasm ; Recorder: Juliana Duke RN; Confirmation: Confirmed ; Classification: Medical ; Code: 083231 ; Contributor System: PowerChart ; Last Updated: 03/28/2020 13:06 EST ; Life Cycle Date: 03/28/2020 ; Life Cycle Status: Active ; Vocabulary: SNOMED CT Schizoaffective disorder (SNOMED CT :687185495 ) Name of Problem: Schizoaffective disorder ; Recorder: Juliana Duke RN; Confirmation: Confirmed ; Classification: Medical ; Code: 792321020 ; Contributor System: PowerChart ; Last Updated: 03/28/2020 13:06 EST ; Life Cycle Date: 03/28/2020 ; Life Cycle Status: Active ; Vocabulary: SNOMED CT Diagnoses(Active) Abdominal pain Date: 09/15/2021 ; Diagnosis Type: Reason For Visit ; Confirmation: Confirmed ; Clinical Dx: Abdominal pain ; Classification: Medical ; Clinical Service: Emergency medicine ; Code: PNED ; Probability: 0 ; Diagnosis Code: [id number] Nausea Date: 09/15/2021 ; Diagnosis Type: Reason For Visit ; Confirmation: Confirmed ; Clinical Dx: Nausea ; Classification: Medical ; Clinical Service: Emergency medicine ; Code: PNED ; Probability: 0 ; Diagnosis Code: [id number] (As Of: 09/15/2021 11:09:04 EDT) Allergies [...] Glover RN - 09/15/2021 11:08 EDT Normal [facility] HEMOon 09-15-2021 DIFF? No Normal [facility] Comment on above: Performed By: #### 1 [id number] #### [facility] [address] [place], [place] [address] Sales And Service Change Leader: Herb Quiroz MD Erythrocyte distribution width (RBC) [Ratio] 14.6 % High 11.5-14.5 [facility] Comment on above: Performed By: #### 1 [id number] #### [facility] [address] [place] [address] Sales And Service Change Leader: Herb Quiroz MD Hematocrit (Bld) [Volume fraction] 41.0 % Normal 41.0-52.0 [facility] Comment on above: Performed By: #### 1 [id number] #### [facility] [address] [place] [address] Sales And Service Change Leader: Herb Quiroz MD Hemoglobin (Bld) [Mass/Vol] 13.9 g/dL Normal 13.5-17.5 [facility] Comment on above: Performed By: #### 1 [id number] #### [facility] [address] [place], [place] [address] Sales And Service Change Leader: Herb Quiroz MD Instr WBC 11.4 Normal [facility] Comment on above: Performed By: #### 1 [id number] #### [facility] [address] [place], [place] [address] Sales And Service Change Leader: Herb Quiroz MD MCH (RBC) [Entitic mass] 29.7 pg Normal 27.0-34.0 [facility] Comment on above: Performed By: #### 1 [id number] #### [facility] [address] [place], [place] [address] Sales And Service Change Leader: Herb Quiroz MD MCHC (RBC) [Mass/Vol] 33.9 g/dL Normal 32.0-37.0 [facility] Comment on above: Performed By: #### 1 [id number] #### [facility] [address] [place], [place] [address] Sales And Service Change Leader: Herb Quiroz MD MCV (RBC) [Entitic vol] 87.8 fL Normal 80.0-100.0 [facility] Comment on above: Performed By: #### 1 [id number] #### [facility] [address] [place] [address] Sales And Service Change Leader: Herb Quiroz MD MDW 17.83 Normal 13.98-20.00 [facility] Comment on above: Result Comment: MDW [...] risk of Sepsis. Performed By: #### 1 [id number] #### [facility] [address] [place] [address] Sales And Service Change Leader: Herb Quiroz MD Nucleated RBC 0 /100WBC Normal [facility] Comment on above: Performed By: #### 1 [id number] #### [facility] [address] [address] Sales And Service Change Leader: Herb Quiroz MD Platelet 194 x10 Normal 150-450 [facility] Comment on above: Performed By: #### 1 [id number] #### [facility] [address] [place] [address] Sales And Service Change Leader: Herb Quiroz MD Platelet mean volume (Bld) [Entitic vol] 8.2 fL Normal 7.4-10.4 [facility] Comment on above: Performed By: #### 1 [id number] #### [facility] [address] [place] [address] Sales And Service Change Leader: Herb Quiroz MD RBC 4.66 x10 Low 4.70-6.10 [facility] Comment on above: Result Comment: Note : RBC morphology is normal unless otherwise stated. Evaluation performed only if differential is requested. Performed By: #### 1 [id number] #### [facility] [address] [place] [address] Sales And Service Change Leader: Herb Quiroz MD WBC 11.4 x10 High 4.5-11.0 [facility] Comment on above: Performed By: #### 1 [id number] #### [facility] [address] [place] [address] Sales And Service Change Leader: Herb Quiroz MD LACTATEon 09-15-2021 Lactate [Moles/Vol] 1.3 mmol/L Normal 0.4-2.0 [facility] Comment on above: Performed By: #### 9 [id number] #### [facility] [address] [place] [address] Sales And Service Change Leader: Herb Quiroz MD LIPon 09-15-2021 Lipase [Catalytic activity/Vol] 115 U/L Normal 73-393 [facility] Comment on above: Performed By: #### 1 [id number] #### [facility] [facility] Services [address] [place] [address] [id number] Sales And Service Change Leader: Herb Quiroz MD TROPONIN HS 0HRon 09-15-2021 Troponin HS 0 Hr 4 pg/mL Normal 3-78 [facility] Comment on above: Performed By: #### 1 [id number] #### [facility] Services [address] [place] [address] Sales And Service Change Leader: Herb Quiroz MD Office Visit (Urology)on Follow-up [...] Bilateral; Status:Hold For - Scheduling; Requested for:10May2021; Perform:[facility] Imaging; Due:08Aug2021;Ordere d; For:Bilateral renal cysts, BPH with urinary obstruction, Renal calculi, Renal mass, right; Ordered By:Concetta Leon; Radiologist to Determine Optimal Study : Y Requesting physician's phone/pager number? : [phone] What are the patient's signs and symptoms? [...] and renal ultrasound prior KAROLYN Rendon Line [phone] Office Line [phone] - use only for off hours or emergency contact fax [phone] Provider Impressions I spent 20 minutes with this patient greater than 50% of time was spent in counseling and coordination of care. See my assessment and plan for details Chief Complaint Renal Mass KAROLYN Rendon Line [phone] Office Line [phone] - use only for off hours or emergency contact History of Present Illnessincidental finding or renal mass has renal cysts and calculi enlarged prostate on tamsulosin resides in history of abn CT scan without contrast [...] 7, defects Social History resides in [facility] International Prostate Symptom Score (I-PSS) [...] no d (more content not included)... Normal [employer] Radiologyon 04-28-2021 US Kidney - bilateral Normal MG- Urology-U H [facility] Work Phone: US RENAL BILATon 04-28-2021 US RENAL BILAT Patient Name: ALLAN LARA STUDY: US RENAL BILAT; 04/28/2021 10:22 am INDICATION: Renal Cyst and Renal stones. COMPARISON: 09/03/2020. ACCESSION NUMBER(S): [id number] ORDERING CLINICIAN: CONCETTA LEON TECHNIQUE: Real-time sonographic [...] Electronically signed by: YAZAN MILES MD Normal [facility] CBC AND DIFFERENTIALon 04-22 % AUTOMATED IMMATURE GRAN 0.8 % Normal 0.0 - 0.9 [facility] Comment on above: Result Comment: Maryam ture Granulocyte Count (IG) includes promyelocytes, myelocytes and metamyelocytes but does not include bands. Percent differential counts (%) should be interpreted in the context of the absolute cell counts (cells/L). Performed By: #### C BCDF #### [address] [address] Basophils (Bld) [#/Vol] 0.08 10*3/uL Normal 0.00 - 0.1 0 [facility] Comment on above: Performed By: #### C BCDF #### [address] [address] Basophils/100 WBC (Bld) 0.7 % Normal 0.0 - 2.0 U [facility] Comment on above: Performed By: #### C BCDF #### [address] [address] Eosinophils (Bld) [#/Vol] 0.24 10*3/uL Normal 0.00 - 0.40 [facility] Comment on above: Performed By: #### C BCDF #### [address] [address] Eosinophils/100 WBC (Bld) 2.0 % Normal 0.0 - 6.0 [facility] Comment on above: Performed By: #### C BCDF #### [address] [address] Erythrocyte distribution width (RBC) [Ratio] 13.2 % Normal 11.5 - 14.5 [facility] Comment on above: Performed By: #### C BCDF #### [address] [address] Hematocrit (Bld) [Volume fraction] 40.7 % Low 41.0 - 52.0 [facility] Comment on above: Performed By: #### C BCDF #### [address] [address] Hemoglobin (Bld) [Mass/Vol] 13.2 g/dL Low 13.5 - 17.5 [facility] Comment on above: Performed By: #### C BCDF #### [address] [address] Lymphocytes (Bld) [#/Vol] 2.95 10*3/uL Normal 0.80 - 3.00 [facility] Comment on above: Performed By: #### C BCDF #### [address] [address] Lymphocytes/100 WBC (Bld) 24.1 % Normal 13.0 - 44.0 [facility] Comment on above: Performed By: #### C BCDF #### [address] [address] MCHC (RBC) [Mass/Vol] 32.4 g/dL Normal 32.0 - 36.0 [facility] Comment on above: Performed By: #### C BCDF #### [address] [address] MCV (RBC) [Entitic vol] 90 fL Normal 80 - 100 [facility] Comment on above: Performed By: #### C BCDF #### [address] [address] Monocytes (Bld) [#/Vol] 1.05 10*3/uL High 0.05 - 0.8 0 [facility] Comment on above: Performed By: #### C BCDF #### [address] [address] Monocytes/100 WBC (Bld) 8.6 % Normal 2.0 - 10.0 [facility] Comment on above: Performed By: #### C BCDF #### [address] [address] Neutrophils (Bld) [#/Vol] 7.82 10*3/uL High 1.60 - 5.50 [facility] Comment on above: Performed By: #### C BCDF #### [address] [address] Neutrophils/100 WBC (Bld) 63.8 % Normal 40.0 - 80.0 [facility] Comment on above: Performed By: #### C BCDF #### [address] [address] NUCLEATED RBC 0.0 /100 WBC Normal 0.0 - 0.0 [facility] Comment on above: Performed By: #### C BCDF #### [facility] [place] [address] [place] [address] Platelets (Bld) [#/Vol] 324 10*3/uL Normal 150 - 450 [facility] Comment on above: Performed By: #### C BCDF #### [facility] [place] [address] [place] [address] RBC 4.52 x10E12/L Normal 4.50 - 5.90 [facility] Comment on above: Performed By: #### C BCDF #### [facility] [place] [address] [place] [address] WBC (Bld) [#/Vol] 12.2 10*3/uL High 4.4 - 11.3 [facility] Comment on above: Performed By: #### C BCDF #### [facility] [place] [address] [place] [address] COMPREHENSIVE PANELon 2021 Albumin [Mass/Vol] 3.5 g/dL Normal 3.4 - 5.0 [facility] Comment on above: Performed By: #### C MP #### [facility] [place] [address] [place] [address] ALP [Catalytic activity/Vol] 62 U/L Normal 33 - 136 [facility] Comment on above: Performed By: #### C MP #### [facility] [place] [address] [place] [address] ALT [Catalytic activity/Vol] 10 U/L Normal 10 - 52 [facility] Comment on above: Result Comment: Jamilah ents treated with Sulfasalazine may generate falsely decreased results for ALT. Performed By: #### C MP #### [facility] [place] [address] [place] [address] Anion gap [Moles/Vol] 10 mmol/L Normal 10 - 20 [facility] Comment on above: Performed By: #### C MP #### [facility] [place] [address] [place] [address] AST [Catalytic activity/Vol] 10 U/L Normal 9 - 39 [facility] Comment on above: Performed By: #### C MP #### [facility] [place] [address] [place] [address] Bilirubin [Mass/Vol] 0.5 mg/dL Normal 0.0 - 1.2 [facility] Comment on above: Performed By: #### C MP #### [address] [address] Calcium [Mass/Vol] 8.6 mg/dL Normal 8.6 - 10.3 [facility] Comment on above: Performed By: #### C MP #### [address] [address] Chloride [Moles/Vol] 106 mmol/L Normal 98 - 107 [facility] Comment on above: Performed By: #### C MP #### [address] [address] Creatinine [Mass/Vol] 1.04 mg/dL Normal 0.50 - 1.30 [facility] Comment on above: Performed By: #### C MP #### [address] [address] GFR/1.73 sq M.predicted among non-blacks MDRD (S/P/Bld) [Vol rate/Area] 76 mL/min/{1.73_m2} Normal >90 [facility] Comment on above: Result Comment: CALC ULATIONS OF ESTIMATED GFR ARE PERFORMED USING THE 2020 CKD-EPI STUDY REFIT EQUATION WITHOUT THE RACE VARIABLE FOR THE IDMS-TRACEABLE CREATININE METHODS. https://jasn.asnjournals.org/content//ASN.346 0503510 Performed By: #### C MP #### [address] [address] Glucose [Mass/Vol] 98 mg/dL Normal 74 - 99 [facility] Comment on above: Performed By: #### C MP #### [address] [address] HCO3 (Bld) [Moles/Vol] 25 mmol/L Normal 21 - 32 [facility] Comment on above: Performed By: #### C MP #### [address] [address] Potassium [Moles/Vol] 4.2 mmol/L Normal 3.5 - 5.3 [facility] Comment on above: Performed By: #### C MP #### [facility] [place] [address] [place] [address] Protein [Mass/Vol] 5.6 g/dL Low 6.4 - 8.2 [facility] Comment on above: Performed By: #### C MP #### [facility] [place] [address] [place] [address] Sodium [Moles/Vol] 137 mmol/L Normal 136 - 145 [facility] Comment on above: Performed By: #### C MP #### [facility] [place] [address] [place] [address], [place] [address] Urea nitrogen [Mass/Vol] 14 mg/dL Normal 6 - 23 [facility] Comment on above: Performed By: #### C MP #### [address] [place] [address] Complete Blood Count + Diffe rentialon 04-21-2021 Basophils/100 WBC (Bld) 0.7 % 0.0 - 2.0 M -Urology-U [facility] Work Phone: Erythrocyte distribution width (RBC) [Ratio] 13.2 % See Below [facility]: Comment on above: Reference Range: 11. 5 - 14.5 Hematocrit (Bld) [Volume fraction] 40.7 % below low threshold See Below VV[facility]Fcdezzv[facility] Work Phone: Comment on above: Reference Range: 41. 0 - 52.0 Hemoglobin (Bld) [Mass/Vol] 13.2 g/dL below low threshold See Below OK[facility]Gtxeqtu[facility] Work Phone: Comment on above: Reference Range: 13. 5 - 17.5 Lymphocytes/100 WBC (Bld) 24.1 % See Below WE-Zyirumq-G [facility] Work Phone: Comment on above: Reference Range: 13. 0 - 44.0 MCHC (RBC) [Mass/Vol] 32.4 g/dL See Below - Urology-U H [facility] Work Phone: Comment on above: Reference Range: 32. 0 - 36.0 MCV (RBC) [Entitic vol] 90 fL 80 - 100 M -Urology-U H [facility] Work Phone: Monocytes/100 WBC (Bld) 8.6 % 2.0 - 10.0 M -Urology-U H [facility] Work Phone: [phone] Neutrophils/100 WBC (Bld) 63.8 % See Below YZ-Sgnhlci-W H [facility] Work Phone: Comment on above: Reference Range: 40. 0 - 80.0 Platelets (Bld) [#/Vol] 324 10*3/uL 150 - 450 ZO-Bsclgaf-K H [facility] Work Phone: [phone] RBC (Bld) [#/Vol] 4.52 {x10E12/L} See Below MG -Urology-U H [facility] Work Phone: Comment on above: Reference Range: 4.5 0 - 5.90 WBC (Bld) [#/Vol] 12.2 10*3/uL above high threshold 4.4 - 11.3 FP-Slgefjb-H H [facility] Work Phone: [phone] Complete Blood Count + Differential 0.08 {x10E9/L} See Below OS-Zklnzgc-E H [facility] Work Phone: Comment on above: Reference Range: 0.0 0 - 0.10 Complete Blood Count + Differential 0.24 {x10E9/L} See Below OL-Tgdwwqo-M H [facility] Work Phone: Comment on above: Reference Range: 0.0 0 - 0.40 Complete Blood Count + Differential 1.05 {x10E9/L} above high threshold See Below BX-Mkrrlgt-I H [facility] Work Phone: Comment on above: Reference Range: 0.0 5 - 0.80 Complete Blood Count + Differential 2.95 {x10E9/L} See Below EU-Ktbnszi-M H [facility] Work Phone: Comment on above: Reference Range: 0.8 0 - 3.00 Complete Blood Count + Differential 7.82 {x10E9/L} above high threshold See Below IO-Hbaovuv-T H [facility] Work Phone: Comment on above: Reference Range: 1.6 0 - 5.50 Complete Blood Count + Differential 2.0 % 0.0 - 6.0 BS-Eqjuwgw-F H [facility] Work Phone: Complete Blood Count + Differential 0.8 % 0.0 - 0.9 FB-Tisxzyj-E [facility] Work Phone: Comment on above: Immature Granulocyte Count (IG) includes promyelocytes, myelocytes and metamyelocytes but does not include bands. Percent differential counts (%) should be interpreted in the context of the absolute cell counts (cells/L). Complete Blood Count + Differential 0.0 {/100_WBC} 0.0 - 0.0 CF-Qlgxuds-U [facility] Work Phone: Laboratory - Chemistry and C hemistry - challengeon 04-21-2021 Albumin BCP dye [Mass/Vol] 3.5 g/dL 3.4 - 5.0 PV-Bnapcsz-K [facility] Work Phone: ALP [Catalytic activity/Vol] 62 U/L 33 - 136 CW-Tskxvye-U H [facility] Work Phone: ALT With P-5'-P [Catalytic activity/Vol] 10 U/L 10 - 52 MG-Urol ogy-U [facility] Work Phone: Comment on above: Patients treated wit h Sulfasalazine may generate falsely decreased results for ALT. Anion gap [Moles/Vol] 10 mmol/L 10 - 20 MG- Urology-U H [facility] Work Phone: AST With P-5'-P [Catalytic activity/Vol] 10 U/L 9 - 39 MG-Urol ogy-U [facility] Work Phone: Bilirubin [Mass/Vol] 0.5 mg/dL 0.0 - 1.2 MG-U rology-U [facility] Work Phone: Calcium [Mass/Vol] 8.6 mg/dL 8.6 - 10.3 MG-Uro logy-U [facility] Work Phone: Chloride [Moles/Vol] 106 mmol/L 98 - 107 MG-U rology-U [facility] Work Phone: CO2 [Moles/Vol] 25 mmol/L 21 - 32 MG-Urolog y-U [facility] Work Phone: Creatinine [Mass/Vol] 1.04 mg/dL See Below MG- Urology-U [facility] Work Phone: Comment on above: Reference Range: 0.5 0 - 1.30 Glucose [Mass/Vol] 98 mg/dL 74 - 99 MG-Uro logy-U [facility] Work Phone: Potassium [Moles/Vol] 4.2 mmol/L 3.5 - 5.3 MG- Urology-U [facility] Work Phone: Protein [Mass/Vol] 5.6 g/dL below low threshold 6.4 - 8.2 CM-Iedoljs-L [facility] Work Phone: Sodium [Moles/Vol] 137 mmol/L 136 - 145 MG-Uro logy-U [facility] Work Phone: Urea nitrogen [Mass/Vol] 14 mg/dL 6 - 23 CZ-Ggwgpzj-J [facility] Work Phone: No Panel Informationon 04-21 76 {mL/min/1.73m2} >90 MG-Uro logy-U H [facility] Work Phone: Comment on above: CALCULATIONS OF ESEQUIEL MATED GFR ARE PERFORMED USING THE 2020 CKD-EPI STUDY REFIT EQUATION WITHOUT THE RACE VARIABLE FOR THE IDMS-TRACEABLE CREATININE METHODS.https://jasn.asnjournals.org/content/ /ASN.3249490006 C BLOODon 04-10-2021 [facility] [id number] [place] [phone] Name: ALLAN LARA : 1950 Admitting ANAIS GAMBOA DO Provider: Gender: Male [facility] [phone] Number: Location: 2DMO; D242; 01 Admit 04/05/2021 [...] Print Date/ 04/10/2021 07:01 EST Time: Normal [facility] Comment on above: Performed By: #### 1 [id number] ####[facility] [address] [place] [address] Medical Director: Herb Quiroz MD C BLOOD [facility] Dept of Laboratory Services [address] [place] [phone] Name: ALLAN LARA : 1950 Admitting ANAIS GAMBOA DO Provider: Gender: Male [employer] [phone] Number: Location: 2DMO; D242; 01 Admit 04/05/2021 [...] Print Date/ 04/10/2021 07:01 EST Time: Normal [facility] Comment on above: Performed By: #### 1 [id number] #### [facility] Services [address] [place] [address] Sales And Service Change Leader: Herb Quiroz MD Discharge Educationon 2021 Discharge Education Patient Education Material Normal [facility] Inpatient Patient Summaryon 04-10-2021 Inpatient Patient Summary [facility] Discharge Instructions [address] [place] [address], [place] [address] \.br\(Patient Copy)\.br\ \.br\ \.br\Name: ALLAN LARA : 1950 \.br\Diagnosis: Acute diarrhea; Acute renal failure (ARF); COVID-19; Dehydration; Dementia; Diabetes mellitus; HTN (hypertension); Hyperkalemia; Hyperlipemia; Kidney neoplasm; Severe sepsis; Tachycardia \.br\ \.br\Allergies: No Known Allergies\.br\ \.br\Registration Date: 04/05/21\.br\\.br\\. br\ \.br\ Current Date Time: 04/09/2021 22:50:09 \.br\ \.br\Address: [address] [place] [address] \.br\ \.br\ \.br\Primary Care Provider: \.br\Name: CASE KAUFFMAN, JESSI Cruz\.br\ \.br\ \.br\Thank you for choosing [facility] for your care. You are very important to us. Our goal is to demonstrate our high quality medical care and provide you with a very good patient experience.\.br\ You may receive a survey about our service. Please take the time to complete the survey and return it so we can continue to enhance our service.\.br\ Thank you again for allowing [facility] to care for your medical needs. If you have any questions about your care or follow up information please contact your doctor.\.br\\.br\Fol low-up Instructions\.br\\.b r\\.br\With: Address: When: \.br\Renal US to be done in 6 months \.br\\.br\\.br\With: Address: When: \.br\Cyril BARRIENTOS Physician (Medical) [address] [facility], [address] [place] [address]\.br\ Business (1) \.br\Comments: \.br\Please follow up in 2 months \.br\\.br\\.br\With: Address: When: \.br\JUAN KAPLAN, Urology [address] [place] [address]\.br\ Business (1) Within Call for Appointment \.br\Comments: [...] 20 mg By Mouth AT BEDTIME \.br\ [place] 0.65% nasal spray\.br\(sodium chloride nasal) 2 sprays [...] in more information on smoking cessation, contact [facility]?s Tobacco Cessation [facility] [phone]\.br\ \.br\ DIET Eat a variety of nutritious foods from all the food groups. To get the nutrients you need, choose foods like vegetables, fru (more content not included)... Normal [facility] AUTO DIFFon 04-09-2021 Baso Count 0.03 x1000 Normal 0.00-0.20 [facility] Comment on above: Performed By: #### 1 , [id number], [id number] ####[facility] [address] [place] [address] Medical Director: Herb Quiroz MD Basos % 0.3 % Normal [facility] Comment on above: Performed By: #### 1 , [id number], [id number] ####[facility] [address] [place] [address] Medical Director: Herb Quiroz MD Eos Count 0.53 x1000 High 0.00-0.50 [facility] Comment on above: Performed By: #### 1 , 786445, [id number] ####[facility] [address]fevp[address]13 [place] [address] Medical Director: Herb Quiroz MD Eosinophils/100 WBC (Bld) 5.1 % Normal [facility] Comment on above: Performed By: #### 1 , 355760, [id number] ####[facility] Ekscedvk[address]17 [place] [address] Medical Director: Herb Quiroz MD Lymph Count 2.68 x1000 Normal 1.20-4.80 [facility] Comment on above: Performed By: #### 1 , 098287, [id number] ####[facility] Q[address]angpmd13050 [place] [address] Medical Director: Herb Quiroz MD Lymphocytes/100 WBC (Bld) 26.0 % Normal [facility] Comment on above: Performed By: #### 1 , 259711, [id number] ####[facility] [address] [place] [address] Medical Director: Herb Quiroz MD Marin Count 0.89 x1000 Normal 0.10-1.00 [facility] Comment on above: Performed By: #### 1 79615, 508699, [id number] ####[facility] [address]26 [place] [address] Medical Director: Herb Quiroz MD Monocytes/100 WBC (Bld) 8.6 % Normal [facility] Comment on above: Performed By: #### 1 72416, 336319, [id number] ####[facility] [address] [place] [address] Medical Director: Herb Quiroz MD Neutrophil Count (ANC) 6.19 x1000 Normal 1.40-8.80 [facility] Comment on above: Performed By: #### 1 80250, 985325, [id number] ####[facility] [address]bpzj[address]75 [place] [address] Medical Director: Herb Quiroz MD Neutrophils/100 WBC (Bld) 60.0 % Normal [facility] Comment on above: Performed By: #### 1 73618, 411252, [id number] ####[facility] X[address]160 [place] [address] Medical Director: Herb Quiroz MD Scan Differential Diff Scd Normal [facility] Comment on above: Result Comment: Slid e reviewed by technologist. Performed By: #### 1 77664, 986631, [id number] ####[facility] [address]ms[address] [place] [address] Medical Director: Herb Quiroz MD BASICMETAon 04-09-2021 Calcium [Mass/Vol] 8.6 mg/dL Normal 8.5-10.5 [facility] Comment on above: Performed By: #### 1 27723, 912435, [id number] ####[facility] [address]qlpa[address]29 [place] [address] Medical Director: Herb Quiroz MD Chloride [Moles/Vol] 110 mmol/L High 100-109 [facility] Comment on above: Performed By: #### 1 38099, 060435, [id number] ####[facility] Z[address]odj[address]76 [place] [address] Medical Director: Herb Quiroz MD CO2 [Moles/Vol] 25.5 mmol/L Normal 21.0-32.0 [facility] Comment on above: Performed By: #### 1 21110, 183779, [id number] ####[facility] Sk[address]we[address]ch[address] [place] [address] Medical Director: Herb Quiroz MD Creatinine [Mass/Vol] 1.0 mg/dL Normal 0.7-1.3 [facility] Comment on above: Performed By: #### 1 17745, 448902, [id number] ####[facility] [address]su44896 [place] [address] Medical Director: Herb Quiroz MD GFR AA >60 Normal [facility] Comment on above: Result Comment: Afri can Ethiopian GFR Calc Medical judgement is necessary to [...] for drug dosing. Performed By: #### 1 53189, 936211, [id number] ####[facility] C[address]fcs[address]ad[address]25 [place] [address] Medical Director: Herb Quiroz MD Glomerular Filtration Rate >60 Normal [facility] Comment on above: Result Comment: Non [...] for drug dosing. Performed By: #### 1 54891, 466846, [id number] ####[facility] Laboratory [address]j74[address] [place], [place] [id number]) [phone] Director: Herb Quiroz MD Glucose [Mass/Vol] 156 mg/dL High 72-100 [facility] Comment on above: Result Comment: Nori puncture should occur prior to sulfasalazine administration due to the potential for falsely depressed results. Venipuncture should occur prior to sulfapyridine administration due to the potential falsely elevated results. Baseline assay values before administration of sulfasalazine and sulfapyridine therapy would not be affected. Performed By: #### 1 04793, 276423, [id number] ####[facility] [address]ne25[address] [place], [place] [id number]) [phone] Director: Herb Quiroz MD Osmolality [Osmolality] 286 mosm/kg Normal 275-295 [facility] Comment on above: Performed By: #### 1 74264, 442466, 1012155 ####[facility] Y[address]zwb66[address] [place] [address] Medical Director: Herb Quiroz MD Potassium [Moles/Vol] 3.5 mmol/L Normal 3.5-5.1 [facility] Comment on above: Performed By: #### 1 76574, 189689, 5879071 ####[facility] [address]xbsez[address] [place] [address] Medical Director: Herb Quiroz MD Sodium [Moles/Vol] 142 mmol/L Normal 135-145 [facility] Comment on above: Performed By: #### 1 56877, 651731, 3016874 ####[facility] Laboratory [address]qdmzbub07872 [place] [address] Medical Director: Herb Quiroz MD Urea nitrogen [Mass/Vol] 12 mg/dL Normal 10-20 [facility] Comment on above: Performed By: #### 1 34792, 731745, [id number] ####[facility] [address]sx[address]iecb[address]3312 [place] [address] Medical Director: Herb Quiroz MD Urea nitrogen/Creatinine [Mass ratio] 12.4 mg/mg Normal [facility] Comment on above: Performed By: #### 1 53623, 673507, [id number] ####[facility] Z[address]bf[address]xe13728 [place] [address] Medical Director: Herb Quiroz MD Barre-Referral Informati onon 04-09-2021 Barre-Referral Information Patient: ALLAN LARA Age: 70 years Sex: Male : 1950 Associated Diagnoses: None Author: GIOVANA BLUNT CNP Barre - Referral Information Patient Information Pt referred to: Nursing Home Facility Attending Physician Info: Garrett Inpatient Date: [...] accurate reflection of the individual's condition. Normal [facility] [facility] HEMOon 04-09-2021 DIFF? No Normal [facility] Comment on above: Performed By: #### 1 65555, 642817, [id number] ####[facility] Ummovpff45579 [place], [place] [id number]) [phone] Director: Herb Quiroz MD Nucleated RBC 0 /100WBC Normal [facility] Comment on above: Performed By: #### 1 , 206789, [id number] ####[facility] Ugcsaldt59312 [place], [place] [id number]) [phone] Director: Herb Quiroz MD [facility] Actions See Notes Abnormal [facility] Comment on above: Result Comment: Scan Slide. Perform manual diff if needed. SNV Performed By: #### 1 02651, 107055, [id number] ####[facility] Sdskbkce46834 [place], [place] [id number]) [phone] Director: Herb Quiroz MD Erythrocyte distribution width (RBC) [Ratio] 13.7 % Normal 11.5-14.5 [facility] Comment on above: Performed By: #### 1 97394, 620324, 2329046 ####[facility] Lvhrwawr75915 [place], [place] [id number]) [phone] Director: Herb Quiroz MD Hematocrit (Bld) [Volume fraction] 37.4 % Low 41.0-52.0 [facility] Comment on above: Performed By: #### 1 38612, 796562, 7807707 ####[facility] Gyewfvea50321 [place], [place] [id number]) [phone] Director: Herb Quiroz MD Hemoglobin (Bld) [Mass/Vol] 13.1 g/dL Low 13.5-17.5 [facility] Comment on above: Performed By: #### 1 75586, 049582, [id number] ####[facility] Kkflcrbn59149 [place], [place] [id number]) [phone] Director: Herb Quiroz MD Instr WBC 10.3 Normal [facility] Comment on above: Performed By: #### 1 01387, 157893, 3635771 ####[facility] Gjmyyvcx08241 [place], [place] [id number]) [phone] Director: Herb Quiroz MD MCH (RBC) [Entitic mass] 30.0 pg Normal 27.0-34.0 [facility] Comment on above: Performed By: #### 1 , 561949, 7134719 ####[facility] Chwmttup65653 [place], [place] [id number]) [phone] Director: Herb Quiroz MD MCHC (RBC) [Mass/Vol] 35.1 g/dL Normal 32.0-37.0 [facility] Comment on above: Performed By: #### 1 47442, 590950, 6149369 ####[facility] Effsnnoi27573 [place], [place] [id number]) [phone] Director: Herb Quiroz MD MCV (RBC) [Entitic vol] 85.3 fL Normal 80.0-100.0 [facility] Comment on above: Performed By: #### 1 69092, 727442, 9115707 ####[facility] Mzjwkhuy98993 [place], [place] [id number]) [phone] Director: Herb Quiroz MD Platelet 203 x1000 Normal 150-450 [facility] Comment on above: Performed By: #### 1 43697, 059211, 1354117 ####[facility] Fdqjekai06523 [place], [place] [id number]) [phone] Director: Herb Quiroz MD Platelet mean volume (Bld) [Entitic vol] 8.3 fL Normal 7.4-10.4 [facility] Comment on above: Performed By: #### 1 65810, 052161, 9236338 ####[facility] Tuywsspr79201 [place] [address] Medical Director: Herb Quiroz MD RBC 4.38 x10 Low 4.70-6.10 [facility] Comment on above: Result Comment: Note : RBC morphology is normal unless otherwise stated. Evaluation performed only if differential is requested. Performed By: #### 1 67532, 030686, 4656694 ####[facility] Ileapptv18046 [place] [address] Medical Director: Herb Quiroz MD WBC 10.3 x10 Normal 4.5-11.0 [facility] Comment on above: Performed By: #### 1 01749, 088879, 8164489 ####[facility] Pwvcclip68143 [place] [address] Medical Director: Herb Quiroz MD MG LEVELon 04-09-2021 Magnesium [Mass/Vol] 1.8 mg/dL Normal 1.6-2.6 [facility] Comment on above: Performed By: #### 9 340987, 855524 #### [facility] [place] [id number] [place] [phone] Sales And Service Change Leader: Herb Quiroz MD Nursing Clinical Noteon Nursing Clinical Note Report received fr odilia Paul RN 0830- Pt assessed and medicated, denies needs, alarm on, will monitor. Report called to [facility] Normal [facility] POC Glucoseon 04-09-2021 Glucose [Mass/Vol] 171 mg/dL High 72-100 [facility] Comment on above: Performed By: #### 1 [id number] ####[facility] Scaycdfy13303 [place] [address] Medical Director: Herb Quiroz MD Glucose [Mass/Vol] 149 mg/dL High 72-100 [facility] Comment on above: Performed By: #### 1 76896 #### [facility] [address] [place] [address] Sales And Service Change Leader: Herb Quiroz MD Glucose [Mass/Vol] 133 mg/dL High 72-100 [facility] Comment on above: Performed By: #### 1 [id number] ####[facility] Dftyojxa65649 [place] [address] Medical Director: Herb Quiroz MD Glucose [Mass/Vol] 162 mg/dL High 72-100 [facility] Comment on above: Performed By: #### 1 [id number] #### [facility] Services [address] [place] [address] Sales And Service Change Leader: Herb Quiroz MD Progress Note-Physicianon Progress Note-Physician Patient: ALLAN LARA Age: 70 years Sex: Male : 1950 Associated Diagnoses: Tachycardia; Severe sepsis; Nausea; Multiple falls; Kidney neoplasm; Hyperlipemia; Hyperkalemia; HTN (hypertension); Diabetes mellitus; Dementia; Dehydration; COVID-19; Acute renal failure (ARF); Acute diarrhea Author: SANTI KAUFFMAN, [facility] INTERNAL MEDICINE/INFECTIOUS DISEASE Basic Information Admission information: [...] Plan 1. Patient could be discharged from [place] perspective 2. No antibiotics on discharge 3. [...] CEFTRIAXONE 1 g 50 mL, IV Piggyback, [id number] CHOLECALCIFEROL 1000 Intl Unit (25mcg) TAB 50 [...] CHLORIDE SYR/VIAL 10ML 3 mL, IV Push, [id number] TAMSULOSIN 0.4MG CAP 0.4 mg 1 caps, ORAL, BID Continuous: (1) SODIUM CHLORIDE 0.9% 1,000 mL 1,000 mL, IV, 80 mL/hr PRN: (11) ACETAMINOPHEN 325 MG TAB 650 mg 2 tabs, ORAL, [id number] ACETAMINOPHEN 325 MG TAB 650 mg 2 tabs, ORAL, E8OHDTI ALBUTEROL 0.083% AEROSOL 2.5mg/3ML 2.5 mg 3 mL, Inhalation, N5FCNWG RESPIRATORY DEXTROSE 50% 50ML SYRINGE/VIAL 12.5 g [...] 0.5 TABLET 2.5 mg 1 EA, ORAL, QHS/[id number] Physical Examination VS/Measurements Vital Signs (last 24 [...] 07) H (more content not included)... Normal [facility] Progress Note-Physician Patient: ALLAN LARA Age: 70 years Sex: Male : 1950 Associated Diagnoses: Tachycardia; Severe sepsis; Nausea; Multiple falls; Kidney neoplasm; Hyperlipemia; Hyperkalemia; HTN (hypertension); Diabetes mellitus; Dementia; Dehydration; COVID-19; Acute renal failure (ARF); Acute diarrhea Author: SANTI KAUFFMAN, [facility] INTERNAL MEDICINE/INFECTIOUS DISEASE Basic Information Admission information: [...] CEFTRIAXONE 1 g 50 mL, IV Piggyback, [id number] CHOLECALCIFEROL 1000 Intl Unit (25mcg) TAB 50 [...] CHLORIDE SYR/VIAL 10ML 3 mL, IV Push, [id number] TAMSULOSIN 0.4MG CAP 0.4 mg 1 caps, ORAL, BID Continuous: (1) SODIUM CHLORIDE 0.9% 1,000 mL 1,000 mL, IV, 80 mL/hr PRN: (11) ACETAMINOPHEN 325 MG TAB 650 mg 2 tabs, ORAL, B9WSIFX ACETAMINOPHEN 325 MG TAB 650 mg 2 tabs, ORAL, R2LWFPQ ALBUTEROL 0.083% AEROSOL 2.5mg/3ML 2.5 mg 3 mL, Inhalation, S5JVLRB RESPIRATORY DEXTROSE 50% 50ML SYRINGE/VIAL 12.5 g [...] 0.5 TABLET 2.5 mg 1 EA, ORAL, QHS/[id number] Physical Examination VS/Measurements Vital Signs (last 24 [...] . Impression and Plan Diagnosis Tachycardia - UPN46-HD R00.0, Medical. Severe sepsis - (more content not included)... Normal [facility] Progress Note-Physician Patient: ALLAN LARA Age: 70 years Sex: Male : 1950 Associated Diagnoses: None Author: ABRAHAM KAUFFMAN, [facility] Nephrology Impression and Plan This is a [...] CEFTRIAXONE 1 g 50 mL, IV Piggyback, I00YTITS CHOLECALCIFEROL 1000 Intl Unit (25mcg) TAB 50 [...] CHLORIDE SYR/VIAL 10ML 3 mL, IV Push, [id number] TAMSULOSIN 0.4MG CAP 0.4 mg 1 caps, ORAL, BID Continuous: (1) SODIUM CHLORIDE 0.9% 1,000 mL 1,000 mL, IV, 80 mL/hr PRN: (11) ACETAMINOPHEN 325 MG TAB 650 mg 2 tabs, ORAL, W2BLVGW ACETAMINOPHEN 325 MG TAB 650 mg 2 tabs, ORAL, B3ZONKP ALBUTEROL 0.083% AEROSOL 2.5mg/3ML 2.5 mg 3 mL, Inhalation, J5MQROA RESPIRATORY DEXTROSE 50% 50ML SYRINGE/VIAL 12.5 g [...] 0.5 TABLET 2.5 mg 1 EA, ORAL, QHS/[id number] Allergies: Allergic Reactions (Selected) No Known Allergies [...] 13.1 ( (more content not included)... Normal [facility] Progress Note-Physician Patient: ALLAN LARA Age: [...] CEFTRIAXONE 1 g 50 mL, IV Piggyback, [id number] CHOLECALCIFEROL 1000 Intl Unit (25mcg) TAB 50 [...] CHLORIDE SYR/VIAL 10ML 3 mL, IV Push, B92VGKDK TAMSULOSIN 0.4MG CAP 0.4 mg 1 caps, ORAL, BID Continuous: (1) SODIUM CHLORIDE 0.9% 1,000 mL 1,000 mL, IV, 80 mL/hr PRN: (11) ACETAMINOPHEN 325 MG TAB 650 mg 2 tabs, ORAL, V4NCCSX ACETAMINOPHEN 325 MG TAB 650 mg 2 tabs, ORAL, B2IHGBL ALBUTEROL 0.083% AEROSOL 2.5mg/3ML 2.5 mg 3 mL, Inhalation, W1KGVXQ RESPIRATORY DEXTROSE 50% 50ML SYRINGE/VIAL 12.5 g [...] 0.5 TABLET 2.5 mg 1 EA, ORAL, QHS/EOUDFMMQXF7EBQC Physical Examination Vital Signs (last 24 hrs) [...] and ureter (more content not included)... Normal [facility] Progress Note-Physician Patient: ALLAN LARA Age: [...] CEFTRIAXONE 1 g 50 mL, IV Piggyback, B71VHRFI CHOLECALCIFEROL 1000 Intl Unit (25mcg) TAB 50 [...] CHLORIDE SYR/VIAL 10ML 3 mL, IV Push, [id number] TAMSULOSIN 0.4MG CAP 0.4 mg 1 caps, ORAL, BID Continuous: (1) SODIUM CHLORIDE 0.9% 1,000 mL 1,000 mL, IV, 80 mL/hr PRN: (11) ACETAMINOPHEN 325 MG TAB 650 mg 2 tabs, ORAL, E3UDUIC ACETAMINOPHEN 325 MG TAB 650 mg 2 tabs, ORAL, D9XCWIK ALBUTEROL 0.083% AEROSOL 2.5mg/3ML 2.5 mg 3 mL, Inhalation, W5LVSXO RESPIRATORY DEXTROSE 50% 50ML SYRINGE/VIAL 12.5 g [...] 0.5 TABLET 2.5 mg 1 EA, ORAL, QHS/FZMBRTAFPN0LSMR Physical Examination Vital Signs (last 24 hrs) [...] the righ (more content not included)... Normal [facility] AUTO DIFFon 04-08-2021 Baso Count 0.02 x1000 Normal 0.00-0.20 [facility] Comment on above: Performed By: #### 9 [id number], [id number] #### [facility] [address] [place] [address] Sales And Service Change Leader: Herb Quiroz MD Basos % 0.2 % Normal [facility] Comment on above: Performed By: #### 9 805299, 585097 #### [facility] [address] [place] [address] Sales And Service Change Leader: Herb Quiroz MD Eos Count 0.34 x1000 Normal 0.00-0.50 [facility] Comment on above: Performed By: #### 9 840136, 675037 #### [facility] [address] [place] [address] Sales And Service Change Leader: Herb Quiroz MD Eosinophils/100 WBC (Bld) 3.2 % Normal [facility] Comment on above: Performed By: #### 9 105559, 162019 #### [facility] [address] [place] [address] Sales And Service Change Leader: Herb Quiroz MD Lymph Count 2.54 x1000 Normal 1.20-4.80 [facility] Comment on above: Performed By: #### 9 177957, 684815 #### [facility] [address] [place] [address] Sales And Service Change Leader: Herb Quiroz MD Lymphocytes/100 WBC (Bld) 24.4 % Normal [facility] Comment on above: Performed By: #### 9 909761, 471748 #### [facility] [address] [place] [address] Sales And Service Change Leader: Herb Quiroz MD Marin Count 0.76 x1000 Normal 0.10-1.00 [facility] Comment on above: Performed By: #### 9 062447, 652274 #### [facility] [address] [place] [address] Sales And Service Change Leader: Herb Quiroz MD Monocytes/100 WBC (Bld) 7.3 % Normal [facility] Comment on above: Performed By: #### 9 832892, 330138 #### [facility] [address] [place] [address] [employer] And Service Change Leader: Herb Quiroz MD Neutrophil Count (ANC) 6.75 x1000 Normal 1.40-8.80 [facility] Comment on above: Performed By: #### 9 854572, 883271 #### [facility] [address] [place] [address] Sales And Service Change Leader: Herb Quiroz MD Neutrophils/100 WBC (Bld) 64.8 % Normal [facility] Comment on above: Performed By: #### 9 627582, 835600 #### [facility] [address] [place] [address] Sales And Service Change Leader: Herb Quiroz MD HEMOon 04-08-2021 DIFF? No Normal [facility] Comment on above: Performed By: #### 9 672987, 452484 #### [facility] [address] [place] [address] Sales And Service Change Leader: Herb Quiroz MD Erythrocyte distribution width (RBC) [Ratio] 13.5 % Normal 11.5-14.5 [facility] Comment on above: Performed By: #### 9 406517, 553890 #### [facility] [address] [place] [address] Sales And Service Change Leader: Herb Quiroz MD Hematocrit (Bld) [Volume fraction] 35.2 % Low 41.0-52.0 [facility] Comment on above: Performed By: #### 9 223483, 751711 #### [facility] [address] [place] [address] Sales And Service Change Leader: Herb Quiroz MD Hemoglobin (Bld) [Mass/Vol] 12.2 g/dL Low 13.5-17.5 [facility] Comment on above: Performed By: #### 9 936390, 086129 #### [facility] [address] [place] [address] Sales And Service Change Leader: Herb Quiroz MD Instr WBC 10.4 Normal [facility] Comment on above: Performed By: #### 9 034869, 341256 #### [facility] [address] [place] [address] Sales And Service Change Leader: Herb Quiroz MD MCH (RBC) [Entitic mass] 29.9 pg Normal 27.0-34.0 [facility] Comment on above: Performed By: #### 9 191691, 624455 #### [facility] [address] [place] [address] Sales And Service Change Leader: Herb Quiroz MD MCHC (RBC) [Mass/Vol] 34.6 g/dL Normal 32.0-37.0 [facility] Comment on above: Performed By: #### 9 984424, 517176 #### [facility] [address] [place] [address] Sales And Service Change Leader: Herb Quiroz MD MCV (RBC) [Entitic vol] 86.5 fL Normal 80.0-100.0 [facility] Comment on above: Performed By: #### 9 385690, 802287 #### [facility] [address] [place] [address] Sales And Service Change Leader: Herb Quiroz MD Nucleated RBC 0 /100WBC Normal [facility] Comment on above: Performed By: #### 9 846985, 177678 #### [facility] [address] [place] [address] Sales And Service Change Leader: Herb Quiroz MD Platelet 174 x1000 Normal 150-450 [facility] Comment on above: Performed By: #### 9 854855, 857525 #### [facility] [address] [place] [address] Sales And Service Change Leader: Herb Quiroz MD Platelet mean volume (Bld) [Entitic vol] 8.7 fL Normal 7.4-10.4 [facility] Comment on above: Performed By: #### 9 262708, 021398 #### [facility] [address] [place] [address] Sales And Service Change Leader: Herb Quiroz MD RBC 4.07 x10 Low 4.70-6.10 [facility] Comment on above: Result Comment: Note : RBC morphology is normal unless otherwise stated. Evaluation performed only if differential is requested. Performed By: #### 9 326347, 064051 #### [facility] [address] [place], [place] [address] Sales And Service Change Leader: Herb Quiroz MD WBC 10.4 x10 Normal 4.5-11.0 [facility] Comment on above: Performed By: #### 9 532909, 281881 #### [facility] [address] [place] [address] Sales And Service Change Leader: Herb Quiroz MD MG LEVELon 04-08-2021 Magnesium [Mass/Vol] 1.8 mg/dL Normal 1.6-2.6 [facility] Comment on above: Performed By: #### 9 004356, 954513 #### [facility] [address] [place] [address] Sales And Service Change Leader: Herb Quiroz MD Nursing Clinical Noteon Nursing [...] all needs met at this time Normal [facility] POC Glucoseon 04-08-2021 Glucose [Mass/Vol] 165 mg/dL High 72-100 [facility] Comment on above: Performed By: #### 9 013473, 064751 #### [facility] [address] [place] [address] Sales And Service Change Leader: Herb Quiroz MD Glucose [Mass/Vol] 110 mg/dL High [address] [place] [address] Comment on above: Performed By: #### 1 [id number] ####[facility] [address] [place] [address] Medical Director: Herb Quiroz MD Glucose [Mass/Vol] 173 mg/dL [address] Comment on above: Performed By: #### 9 069788, 139367 #### [facility] [address] [place] [address] Sales And Service Change Leader: Herb Quiroz MD Glucose [Mass/Vol] 128 mg/dL [facility] [address] [facility] Comment on above: Performed By: #### 1 [id number] #### [facility] [address] [place] [address] Sales And Service Change Leader: Herb Quiroz MD PREALBon 04-08-2021 PREALB 15.5 mg/dL Low 20.0-40.0 [facility] Comment on above: Performed By: #### 6 009333, [id number] ####[facility] [address] [place] [address] Medical Director: Herb Quiroz MD Progress Note-Physicianon Progress Note-Physician Patient: ALLAN LARA Age: 70 years Sex: Male : 1950 Associated Diagnoses: None Author: ABRAHAM KAUFFMAN, [facility] Nephrology Impression and Plan This is a [...] CEFTRIAXONE 1 g 50 mL, IV Piggyback, [id number] CHOLECALCIFEROL 1000 Intl Unit (25mcg) TAB 50 [...] CHLORIDE SYR/VIAL 10ML 3 mL, IV Push, [id number] TAMSULOSIN 0.4MG CAP 0.4 mg 1 caps, ORAL, BID Continuous: (0) PRN: (11) ACETAMINOPHEN 325 MG TAB 650 mg 2 tabs, ORAL, C4DEKSU ACETAMINOPHEN 325 MG TAB 650 mg 2 tabs, ORAL, U2UDMYG ALBUTEROL 0.083% AEROSOL 2.5mg/3ML 2.5 mg 3 mL, Inhalation, B9XIZJX RESPIRATORY DEXTROSE 50% 50ML SYRINGE/VIAL 12.5 g [...] 0.5 TABLET 2.5 mg 1 EA, ORAL, QHS/[id number] Allergies: Allergic Reactions (Selected) No Known Allergies Objective Vital Signs (last 24 hrs) Last Charted Heart Rate Peripheral 95 bpm (APR 08 07:00) Resp Rate 16 br/min (APR 08 07:00) SBP 130 mmHg (APR 08 06:59) DBP 76 mmHg (APR 08 06:59) GENERAL: NAD H (more content not included)... Normal [facility] Progress Note-Physician Patient: ALLAN LARA Age: [...] CEFTRIAXONE 1 g 50 mL, IV Piggyback, S21VMAJE CHOLECALCIFEROL 1000 Intl Unit (25mcg) TAB 50 [...] CHLORIDE SYR/VIAL 10ML 3 mL, IV Push, C12CMOBI TAMSULOSIN 0.4MG CAP 0.4 mg 1 caps, ORAL, BID Continuous: (1) SODIUM CHLORIDE 0.9% 1,000 mL 1,000 mL, IV, 100 mL/hr PRN: (11) ACETAMINOPHEN 325 MG TAB 650 mg 2 tabs, ORAL, H8RYUKJ ACETAMINOPHEN 325 MG TAB 650 mg 2 tabs, ORAL, J6UMMFL ALBUTEROL 0.083% AEROSOL 2.5mg/3ML 2.5 mg 3 mL, Inhalation, B6YANBS RESPIRATORY DEXTROSE 50% 50ML SYRINGE/VIAL 12.5 g [...] 0.5 TABLET 2.5 mg 1 EA, ORAL, QHS/KAFBMAROLV1QNMX Physical Examination Vital Signs (last 24 hrs) [...] unremarkable. Unremarkab (more content not included)... Normal [facility] RENAL PNLon 04-08-2021 Calcium [Mass/Vol] 9.3 mg/dL Normal 8.5-10.5 [facility] Comment on above: Performed By: #### 6 [id number], [id number] ####[facility] Bgwgbtpr86806 [place] [address] Medical Director: Herb Quiroz MD GFR AA >60 Normal [facility] Comment on above: Result Comment: Afri can Ethiopian GFR Calc Medical judgement is necessary to [...] for drug dosing. Performed By: #### 6 288154, 1023931 ####[facility] Xrajztkc43569 [place] [address] Medical Director: Herb Quiroz MD Glomerular Filtration Rate >60 Normal [facility] Comment on above: Result Comment: Non [...] for drug dosing. Performed By: #### 6 915876, 7239103 ####[facility] [address]le[address] [place] [id number] Medical Director: Herb Quiroz MD Osmolality [Osmolality] 285 mosm/kg Normal 275-295 [facility] Comment on above: Performed By: #### 6 856371, 6059469 ####[facility] Ohlcffri63253 [place] [address] Medical Director: Herb Quiroz MD Urea nitrogen/Creatinine [Mass ratio] 14.0 mg/mg Normal [facility] Comment on above: Performed By: #### 6 738296, 3506734 ####[facility] [address]pshr35[address] [place] [id number] Medical Director: Herb Quiroz MD Albumin [Mass/Vol] 2.5 g/dL Low 3.4-5.0 [facility] Comment on above: Performed By: #### 6 780344, 8209279 ####[facility] Mlnrhbji80883 [place] [address] Medical Director: Herb Quiroz MD Calcium [Mass/Vol] 8.1 mg/dL Low 8.5-10.5 [facility] Comment on above: Performed By: #### 6 928551, 6842900 ####[facility] Kpyhowej95875 [place], [place] [id number]) [phone] Director: Herb Quiroz MD Chloride [Moles/Vol] 111 mmol/L High 100-109 [facility] Comment on above: Performed By: #### 6 438283, 7285989 ####[facility] Lzzacaqu87537 [place], [place] [id number]) [phone] Director: Herb Quiroz MD CO2 [Moles/Vol] 23.9 mmol/L Normal 21.0-32.0 [facility] Comment on above: Performed By: #### 6 701580, 6858921 ####[facility] Gdhvlsmj20476 [place] [address] Medical Director: Herb Quiroz MD Creatinine [Mass/Vol] 0.9 mg/dL Normal 0.7-1.3 [facility] Comment on above: Performed By: #### 6 061220, 7485270 ####[facility] Iszjgeaq75105 [place], [place] [address]) [phone] Director: Herb Quiroz MD Glucose [Mass/Vol] 107 mg/dL High 72-100 [facility] Comment on above: Result Comment: Nori puncture should occur prior to sulfasalazine administration due to the potential for falsely depressed results. Venipuncture should occur prior to sulfapyridine administration due to the potential falsely elevated results. Baseline assay values before administration of sulfasalazine and sulfapyridine therapy would not be affected. Performed By: #### 6 184753, [id number] ####[facility] Ylshrqlm86392 [place], [place] [address]) [phone] Director: Herb Quiroz MD Phosphate [Mass/Vol] 2.6 mg/dL Normal 2.5-4.9 [facility] Comment on above: Performed By: #### 6 911911, 4603440 ####[facility] Rdtdkhnl55740 [place], [place] [phone] Director: Herb Quiroz MD Potassium [Moles/Vol] 3.5 mmol/L Normal 3.5-5.1 [facility] Comment on above: Performed By: #### 6 [id number], [id number] ####[facility] [address] [place] [address] Medical Director: Herb Quiroz MD Sodium [Moles/Vol] 143 mmol/L Normal 135-145 [facility] Comment on above: Performed By: #### 6 [id number], [id number] ####[facility] [address] [place] [address] Medical Director: Herb Quiroz MD Urea nitrogen [Mass/Vol] 12 mg/dL Normal 10-20 [facility] Comment on above: Performed By: #### 6 [id number] ####[facility] [address] [place] [address] Medical Director: Herb Quiroz MD Utilization Review Noteon Utilization Review Note Verified admit t hru the portal #[id number] faxed 04/08/2021 [facility] APPROVAL FAX RECV'D APRROVED INPT DRG. WILL NOTIFY WHEN UPDATE DUE. TH Normal [facility] MG LEVELon 04-07-2021 Magnesium [Mass/Vol] 2.1 mg/dL Normal 1.6-2.6 [facility] Comment on above: Performed By: #### 1 [id number] ####[facility] [address] [place] [address] Medical Director: Herb Quiroz MD Nursing Clinical Noteon Nursing Clinical Note [id number] Report receiv ed from Ana Luisa BEEBE. 0819 Patient resting comfortably in bed, no pain [...] needs, bed alarm activated, safety maintained. Normal [facility] Nursing Clinical Note [id number]-Report receiv ed from Marley BEEBE. Pt in bed, resting with eyes closed. Bed alarm on. 0100-Pt in bed, Bed alarm on. Pt denies pain or discomfort. Pt alert to self and place confused to time. IV infusing without difficulty. 0700-Hourly rounding through out the night, Romero peres. Bed alarm on. No complaints noted Normal [facility] PLATELET ONLYon 04-07-2021 Platelet 160 X 1000 Normal 150-450 [facility] Comment on above: Order Comment: PLT c ount on Day 2 after initiation of Heparin or Lovenox, Notify Physician if PLT Count less than 100,000 Performed By: #### 9 [id number] #### [facility] Services [address] [place] [address] Sales And Service Change Leader: Herb Quiroz MD POC Glucoseon 04-07-2021 Glucose [Mass/Vol] 152 mg/dL High 72-100 [facility] Comment on above: Performed By: #### 9 [id number] #### [facility] Services [address] [place], [place] [id number] Sales And Service Change Leader: Herb Quiroz MD Glucose [Mass/Vol] 144 mg/dL High 72-100 [facility] Comment on above: Performed By: #### 1 [id number] #### [facility] Services [address] [place], [place] 6300[address] Sales And Service Change Leader: Herb Quiroz MD Glucose [Mass/Vol] 109 mg/dL High 72-100 [facility] Comment on above: Performed By: #### 1 [id number] #### [facility] Services [address] [place] [address] Sales And Service Change Leader: Herb Quiroz MD Progress Note-Physicianon Progress Note-Physician Patient: ALLAN LARA Age: 70 years Sex: Male : 1950 Associated Diagnoses: Tachycardia; Severe sepsis; Nausea; Multiple falls; Kidney neoplasm; Hyperlipemia; Hyperkalemia; HTN (hypertension); Diabetes mellitus; Dementia; Dehydration; COVID-19; Acute renal failure (ARF); Acute diarrhea Author: SANTI KAUFFMAN, [facility] INTERNAL MEDICINE/INFECTIOUS DISEASE Basic Information Admission information: [...] PEREZ 3.375 g 50 mL, IV Piggyback, [id number] SODIUM CHLORIDE SYR/VIAL 10ML 3 mL, IV Push, [id number] TAMSULOSIN 0.4MG CAP 0.4 mg 1 caps, ORAL, BID Continuous: (1) SODIUM CHLORIDE 0.9% 1,000 mL 1,000 mL, IV, 100 mL/hr PRN: (11) ACETAMINOPHEN 325 MG TAB 650 mg 2 tabs, ORAL, R5TRTCF ACETAMINOPHEN 325 MG TAB 650 mg 2 tabs, ORAL, M2YWIPD ALBUTEROL 0.083% AEROSOL 2.5mg/3ML 2.5 mg 3 mL, Inhalation, [id number] RESPIRATORY DEXTROSE 50% 50ML SYRINGE/VIAL 12.5 g [...] 0.5 TABLET 2.5 mg 1 EA, ORAL, QHS/[id number] Physical Examination VS/Measurements Vital Signs (last 24 [...] . Impression and Plan Diagnosis Tachycardia - DFA62-LA R00.0, Medical. Severe sepsis - MUQ11-TJ R65.20, Medical. Nausea - PNED [id number] eg, Medical. Multiple falls - PNED [id number] (more content not included)... Normal [facility] Progress Note-Physician Patient: ALLAN LARA Age: 70 years Sex: Male : 1950 Associated Diagnoses: None Author: ABRAHAM KAUFFMAN, [facility] Nephrology Impression and Plan This is a [...] PEREZ 3.375 g 50 mL, IV Piggyback, [id number] SODIUM CHLORIDE SYR/VIAL 10ML 3 mL, IV Push, [id number] TAMSULOSIN 0.4MG CAP 0.4 mg 1 caps, ORAL, BID Continuous: (1) SODIUM CHLORIDE 0.9% 1,000 mL 1,000 mL, IV, 100 mL/hr PRN: (11) ACETAMINOPHEN 325 MG TAB 650 mg 2 tabs, ORAL, O2BGZNV ACETAMINOPHEN 325 MG TAB 650 mg 2 tabs, ORAL, [id number] ALBUTEROL 0.083% AEROSOL 2.5mg/3ML 2.5 mg 3 mL, Inhalation, G2BGMSB RESPIRATORY DEXTROSE 50% 50ML SYRINGE/VIAL 12.5 g [...] 0.5 TABLET 2.5 mg 1 EA, ORAL, QHS/[id number] Allergies: Allergic Reactions (Selected) No Known Allergies Objective Vital Signs (last 24 hrs) Last Charted Heart Rate Peripheral 94 bpm (APR 07 07:20) Resp Rate 16 br/min (APR 07 07:20) SBP 128 mmHg (APR 07 08:19) DBP 76 mmHg (APR 07 08:19) GENERAL (more content not included)... Normal [facility] Progress Note-Physician Patient: ALLAN LARA Age: [...] PEREZ 3.375 g 50 mL, IV Piggyback, L2RUIPF SODIUM CHLORIDE SYR/VIAL 10ML 3 mL, IV Push, [id number] TAMSULOSIN 0.4MG CAP 0.4 mg 1 caps, ORAL, BID Continuous: (1) SODIUM CHLORIDE 0.9% 1,000 mL 1,000 mL, IV, 100 mL/hr PRN: (11) ACETAMINOPHEN 325 MG TAB 650 mg 2 tabs, ORAL, B4VOVSA ACETAMINOPHEN 325 MG TAB 650 mg 2 tabs, ORAL, U4AHBXE ALBUTEROL 0.083% AEROSOL 2.5mg/3ML 2.5 mg 3 mL, Inhalation, Z3RSHRW RESPIRATORY DEXTROSE 50% 50ML SYRINGE/VIAL 12.5 g [...] 0.5 TABLET 2.5 mg 1 EA, ORAL, QHS/NIBULQBYOW0BWEA Physical Examination Vital Signs (last 24 hrs) [...] Integumentary: Warm. Neurologic: Alert. Psychiatric: Cooperative. Normal [facility] RENAL PNLon 04-07-2021 Calcium [Mass/Vol] 9.3 mg/dL Normal 8.5-10.5 [facility] Comment on above: Performed By: #### 9 [id number], [id number] #### [facility] Services [address] [place] [address] Sales And Service Change Leader: Herb Quiroz MD GFR AA >60 Normal [facility] Comment on above: Result Comment: Afri can Ethiopian GFR Calc Medical judgement is necessary to [...] for drug dosing. Performed By: #### 9 [id number], [id number] #### [facility] [address] [place] [address] Sales And Service Change Leader: Herb Quiroz MD Glomerular Filtration Rate >60 Normal [facility] Comment on above: Result Comment: Non [...] for drug dosing. Performed By: #### 9 [id number], [id number] #### [facility] [address] [place] [address] Sales And Service Change Leader: Herb Quiroz MD Osmolality [Osmolality] 287 mosm/kg Normal 275-295 [facility] Comment on above: Performed By: #### 9 [id number], [id number] #### [facility] [address] [place] [address] Sales And Service Change Leader: Herb Quiroz MD Urea nitrogen/Creatinine [Mass ratio] 18.8 mg/mg Normal [facility] Comment on above: Performed By: #### 9 [id number], [id number] #### [facility] [address] [place] [address] Sales And Service Change Leader: Herb Quiroz MD Albumin [Mass/Vol] 2.3 g/dL Low 3.4-5.0 [facility] Comment on above: Performed By: #### 9 [id number], [id number] #### [facility] [address] [place] [address] Sales And Service Change Leader: Herb Quiroz MD Calcium [Mass/Vol] 7.9 mg/dL Low 8.5-10.5 [facility] Comment on above: Performed By: #### 9 [id number], [id number] #### [facility] [address] [place] [address] Sales And Service Change Leader: Herb Quiroz MD Chloride [Moles/Vol] 113 mmol/L High 100-109 [facility] Comment on above: Performed By: #### 9 [id number], [id number] #### [facility] [address] [place] [address] Sales And Service Change Leader: Herb Quiroz MD CO2 [Moles/Vol] 23.5 mmol/L Normal 21.0-32.0 [facility] Comment on above: Performed By: #### 9 [id number], [id number] #### [facility] [address] [place] [address] Sales And Service Change Leader: Herb Quiroz MD Creatinine [Mass/Vol] 1.0 mg/dL Normal 0.7-1.3 [facility] Comment on above: Performed By: #### 9 [id number], [id number] #### [facility] [address] [place] [address] Sales And Service Change Leader: Herb Quiroz MD Glucose [Mass/Vol] 96 mg/dL Normal 72-100 [facility] Comment on above: Result Comment: Nori puncture should occur prior to sulfasalazine administration due to the potential for falsely depressed results. Venipuncture should occur prior to sulfapyridine administration due to the potential falsely elevated results. Baseline assay values before administration of sulfasalazine and sulfapyridine therapy would not be affected. Performed By: #### 9 [id number], [id number] #### [facility] [address] [place] [address] Sales And Service Change Leader: Herb Quiroz MD Phosphate [Mass/Vol] 2.3 mg/dL Low 2.5-4.9 [facility] Comment on above: Performed By: #### 9 [id number], [id number] #### [facility] [address] [place] [address] Sales And Service Change Leader: Herb Quiroz MD Potassium [Moles/Vol] 3.8 mmol/L Normal 3.5-5.1 [facility] Comment on above: Performed By: #### 9 [id number], 109395 #### [facility] [address] [place] [address] Sales And Service Change Leader: Herb Quiroz MD Sodium [Moles/Vol] 143 mmol/L Normal 135-145 [facility] Comment on above: Performed By: #### 9 [id number], [id number] #### [facility] [address] [place] [address] Sales And Service Change Leader: Herb Quiroz MD Urea nitrogen [Mass/Vol] 19 mg/dL Normal 10-20 [facility] Comment on above: Performed By: #### 9 [id number], [id number] #### [facility] [address] [place] [address] Sales And Service Change Leader: Herb Quiroz MD C URINEon 04-06-2021 C URINE [facility] Dept of Laboratory Services [address] [place] [phone] Name: ALLAN LARA : 1950 Admitting ANAIS GAMBOA DO Provider: Gender: Male [facility] [id number] Number: Location: 2DMO; D242; 01 Admit 04/05/2021 [...] Print Date/ 04/06/2021 08:06 EST Time: Normal [facility] Comment on above: Performed By: #### 1 [id number] ####[facility] [address] [place] [address] Medical Director: Herb Quiroz MD COMPMETAon 04-06-2021 Albumin/Globulin [Mass ratio] 0.8 {ratio} [facility] Comment on above: Performed By: #### 1 [id number] #### [facility] Services [address] [place] [address] Sales And Service Change Leader: Herb Quiroz MD GFR AA 57 [facility] Comment on above: Result Comment: Afri can Ethiopian GFR Calc Medical judgement is necessary to [...] for drug dosing. Performed By: #### 1 [id number] #### [facility] [address] [place] [address] Sales And Service Change Leader: Herb Quiroz MD Globulin (S) [Mass/Vol] 3.4 g/dL Normal [facility] Comment on above: Performed By: #### 1 [id number] #### [facility] [address] [place] [address] Sales And Service Change Leader: Herb Quiroz MD Glomerular Filtration Rate 47 mL/min/1.73m? Normal [facility] Comment on above: Result Comment: Non [...] for drug dosing. Performed By: #### 1 [id number] #### [facility] [address] [place] [address] Sales And Service Change Leader: Herb Quiroz MD Osmolality [Osmolality] 289 mosm/kg Normal 275-295 [facility] Comment on above: Performed By: #### 1 [id number] #### [facility] [address] [place] [address] Sales And Service Change Leader: Herb Quiroz MD Urea nitrogen/Creatinine [Mass ratio] 24.5 mg/mg Normal [facility] Comment on above: Performed By: #### 1 [id number] #### [facility] [address] [place] [address] Sales And Service Change Leader: Herb Quiroz MD Albumin [Mass/Vol] 2.7 g/dL Low 3.4-5.0 [facility] Comment on above: Performed By: #### 1 [id number] #### [facility] [address] [place] [address] Sales And Service Change Leader: Herb Quiroz MD Alk Phos 53 unit/L Normal 45-117 [facility] Comment on above: Performed By: #### 1 [id number] #### [facility] [address] [place] [address] Sales And Service Change Leader: Herb Quiroz MD Bilirubin [Mass/Vol] 0.55 mg/dL Normal 0.20-1.00 [facility] Comment on above: Result Comment: Use of this assay is not recommended for patients undergoing treatment with eltrombopag due to the potential for falsely elevated results. Performed By: #### 1 [id number] #### [facility] [address] [place] [address] Sales And Service Change Leader: Herb Quiroz MD Calcium [Mass/Vol] 8.1 mg/dL Low 8.5-10.5 [facility] Comment on above: Performed By: #### 1 [id number] #### [facility] [address] [place] [address] Sales And Service Change Leader: Herb Quiroz MD Chloride [Moles/Vol] 112 mmol/L High 100-109 [facility] Comment on above: Performed By: #### 1 [id number] #### [facility] [address] [place] [address] Sales And Service Change Leader: Herb Quiroz MD CO2 [Moles/Vol] 23.0 mmol/L Normal 21.0-32.0 [facility] Comment on above: Performed By: #### 1 [id number] #### [facility] [address] [place] [address] Sales And Service Change Leader: Herb Quiroz MD Creatinine [Mass/Vol] 1.5 mg/dL High 0.7-1.3 [facility] Comment on above: Performed By: #### 1 [id number] #### [facility] Services [address] [place] [address] Sales And Service Change Leader: Herb Quiroz MD Glucose [Mass/Vol] 122 mg/dL High 72-100 [facility] Comment on above: Result Comment: Nori puncture should occur prior to sulfasalazine administration due to the potential for falsely depressed results. Venipuncture should occur prior to sulfapyridine administration due to the potential falsely elevated results. Baseline assay values before administration of sulfasalazine and sulfapyridine therapy would not be affected. Performed By: #### 1 [id number] #### [facility] [address] [place] [address] Sales And Service Change Leader: Herb Quiroz MD GOT 14 unit/L Low 15-37 [facility] Comment on above: Result Comment: Nori puncture should occur prior to sulfasalazine and/or sulfapyridine administration due to the potential for falsely depressed results. Baseline assay values before administration of sulfasalazine and sulfapyridine therapy would not be affected. Performed By: #### 1 [id number] #### [facility] [address] [place] [address] Sales And Service Change Leader: Herb Quiroz MD GPT 13 unit/L Low 16-61 [facility] Comment on above: Result Comment: Nori puncture should occur prior to sulfasalazine and/or sulfapyridine administration due to the potential for falsely depressed results. Baseline assay values before administration of sulfasalazine and sulfapyridine therapy would not be affected. Performed By: #### 1 [id number] #### [facility] [address] [place] [address] Sales And Service Change Leader: Herb Quiroz MD Potassium [Moles/Vol] 3.4 mmol/L Low 3.5-5.1 [facility] Comment on above: Performed By: #### 1 [id number] #### [facility] [address] [place] [address] Sales And Service Change Leader: Herb Quiroz MD Protein [Mass/Vol] 6.1 g/dL Normal 6.0-8.5 [facility] Comment on above: Performed By: #### 1 [id number] #### [facility] Services [address] [place] [address] Sales And Service Change Leader: Herb Quiroz MD Sodium [Moles/Vol] 140 mmol/L Normal 135-145 [facility] Comment on above: Performed By: #### 1 [id number] #### [facility] [address] [place] [address] Sales And Service Change Leader: Herb Quiroz MD Urea nitrogen [Mass/Vol] 36 mg/dL High 10-20 [facility] Comment on above: Performed By: #### 1 [id number] #### [facility] [address] [place] [address] Sales And Service Change Leader: Herb Quiroz MD CT ABD PELVIS WO [...] by: Adrianna St MD 04/06/2021 12:40 PM TRANSFER CONTROLLER Normal [facility] Comment on above: Order Comment: CT ab domen and pelvis without any contrast for evaluation of renal lesions. Result Comment: Tech nologist: KATHIA ALBRIGHT Dictated By: ADRIANNA ST MD Signed By: ADRIANNA ST MD Signed Out: 04/06/21 13:40:21 Consult Reporton 04-06-2021 Consult Report Patient: ALLAN LARA Age: 70 years Sex: Male : 1950 Associated Diagnoses: None Author: ABRAHAM KAUFFMAN, [facility] Nephrology Impression and Plan This is a [...] 650 mg = 2 tab(s), PRN, ORAL, F4JVZMO albuterol-ipratropiu m 2.5 mg-0.5 mg/3 mL inhalation solution = DuoNeb 3 mL, PRN, Inhalation, L0TTRIQ RESPIRATORY cloZAPine 100 mg oral tablet 100 [...] oral t (more content not included)... Normal [facility] Consult Report Patient: ALLAN LARA Age: 70 years Sex: Male : 1950 Associated Diagnoses: Nausea; Multiple falls; Kidney neoplasm; Hyperlipemia; HTN (hypertension); Diabetes mellitus; Dementia; COVID-19 Author: SANTI KAUFFMAN, [facility] Basic Information Time Seen: Date & Time [...] PEREZ 2.25 g 50 mL, IV Piggyback, [id number] SODIUM CHLORIDE SYR/VIAL 10ML 3 mL, IV Push, B36OZIHH TAMSULOSIN 0.4MG CAP 0.4 mg 1 caps, ORAL, BID Continuous: (1) SODIUM CHLORIDE 0.9% 1,000 mL 1,000 mL, IV, 250 mL/hr PRN: (11) ACETAMINOPHEN 325 MG TAB 650 mg 2 tabs, ORAL, E2JBZYK ACETAMINOPHEN 325 MG TAB 650 mg 2 tabs, ORAL, G2NRVSA ALBUTEROL 0.083% AEROSOL 2.5mg/3ML 2.5 mg 3 mL, Inhalation, U5CECEX RESPIRATORY DEXTROSE 50% 50ML SYRINGE/VIAL 12.5 g [...] 0.5 TABLET 2.5 mg 1 EA, ORAL, QHS/[id number] Problem list: Active Problems (9) At risk [...] 98 bpm (more content not included)... Normal [facility] ED Physician Reporton 2021 ED Physician Report Patient: ALLAN LARA Age: 70 years Sex: Male : 1950 Associated Diagnoses: Hyperkalemia; Acute renal failure (ARF); Tachycardia; Acute diarrhea; Severe sepsis; Dehydration Author: ANAIS GABMOA DO Basic Information Time seen: Time Seen: ANAIS GAMBOA DO / 04/05/2021 03:17 . History source: Patient, EMS. Arrival mode: Ambulance. History limitation: Clinical condition. History of Present Illness Patient is a 70-year-old male who presents emergency department for frequent falls and altered mental status. According to penitentiary report, patient does have some baseline confusion. [...] mg-125 mg oral tablet: 1 tabs, ORAL, [id number], for 5 days, 10 tabs, 0 Refill(s) [...] tablet: 650 mg = 2 tab(s), ORAL, H7ZLWPO, PRN: for pain, 120 tab(s), 0 Refill(s) albuterol-ipratropiu m 2.5 mg-0.5 mg/3 mL inhalation solution = DuoNeb: 3 mL, Inhalation, B6KPHGG RESPIRATORY, PRN: Wheezing or Dyspnea, 0 Refill(s) [...] motor obs (more content not included)... Normal [facility] HEMOon 04-06-2021 Erythrocyte distribution width (RBC) [Ratio] 14.0 % Normal 11.5-14.5 [facility] Comment on above: Performed By: #### 1 [id number] #### [facility] Services [address] [place] [address] Sales And Service Change Leader: Herb Quiroz MD Hematocrit (Bld) [Volume fraction] 41.2 % Normal 41.0-52.0 [facility] Comment on above: Performed By: #### 1 [id number] #### [facility] Services [address] [place] [address] Sales And Service Change Leader: Herb Quiroz MD Hemoglobin (Bld) [Mass/Vol] 13.8 g/dL Normal 13.5-17.5 [facility] Comment on above: Result Comment: Revi ewed Performed By: #### 1 [id number] #### [facility] Services [address] [place], [place] [id number] Sales And Service Change Leader: Herb Quiroz MD Instr WBC 11.2 Normal [facility] Comment on above: Performed By: #### 1 [id number] #### [facility] [address] [place], [place] [id number] Sales And Service Change Leader: Herb Quiroz MD MCH (RBC) [Entitic mass] 29.4 pg Normal 27.0-34.0 [facility] Comment on above: Performed By: #### 1 [id number] #### [facility] Services [address] [place], [place] [id number] Sales And Service Change Leader: Herb Quiroz MD MCHC (RBC) [Mass/Vol] 33.5 g/dL Normal 32.0-37.0 [facility] Comment on above: Performed By: #### 1 [id number] #### [facility] [address] [place] [address] Sales And Service Change Leader: Herb Quiroz MD MCV (RBC) [Entitic vol] 87.9 fL Normal 80.0-100.0 [facility] Comment on above: Performed By: #### 1 [id number] #### [facility] [address] [place] [address] Sales And Service Change Leader: Herb Quiroz MD Nucleated RBC 0 /100WBC Normal [facility] Comment on above: Performed By: #### 1 [id number] #### [facility] [address] [place] [address] Sales And Service Change Leader: Herb Quiroz MD Platelet 163 x1000 Normal 150-450 [facility] Comment on above: Result Comment: Rech ecked Performed By: #### 1 [id number] #### [facility] [address] [place] [address] Sales And Service Change Leader: Herb Quiroz MD Platelet mean volume (Bld) [Entitic vol] 8.8 fL Normal 7.4-10.4 [facility] Comment on above: Performed By: #### 1 [id number] #### [facility] [address] [place] [address] Sales And Service Change Leader: Herb Quiroz MD RBC 4.69 x10 Low 4.70-6.10 [facility] Comment on above: Result Comment: Note : RBC morphology is normal unless otherwise stated. Evaluation performed only if differential is requested. Performed By: #### 1 [id number] #### [facility] [address] [place] [address] 80229 Sales And Service Change Leader: Herb Quiroz MD WBC 11.2 x10 High 4.5-11.0 [facility] Comment on above: Performed By: #### 1 [id number] #### [facility] [address] [place] [address] 53017 Sales And Service Change Leader: Herb Quiroz MD DIFF? Yes Normal [facility] Comment on above: Performed By: #### 1 [id number] #### [facility] [address] [place] [address] 12172 Sales And Service Change Leader: Herb Quiroz MD MAN DIFFon 04-06-[address] 0.90 x1000 High 0.00-0.70 [facility] Comment on above: Performed By: #### 1 [id number] #### [facility] [address] [place] [address] 33357 Sales And Service Change Leader: Herb Quiroz MD Absolute Lymph Ct 0.45 x1000 Low 1.20-4.80 [facility] Comment on above: Performed By: #### 1 [id number] #### [facility] [address] [place] [address] 84421 Sales And Service Change Leader: Herb Quiroz MD Absolute Marin Ct 0.34 x1000 Normal 0.10-1.00 [facility] Comment on above: Performed By: #### 1 [id number] #### [facility] [address] [place] [address] 71715 Sales And Service Change Leader: Herb Quiroz MD Absolute Neutrophil Ct 10.42 x1000 High 1.40-8.80 [facility] Comment on above: Performed By: #### 1 [id number] #### [facility] [address] [place] [address] 60814 Sales And Service Change Leader: Herb Quiroz MD Absolute Seg Ct 9.52 x1000 High 1.40-8.80 [facility] Comment on above: Performed By: #### 1 [id number] #### [facility] [address] [place] [address] 31868 Sales And Service Change Leader: Herb Quiroz MD Band form neutrophils/100 WBC (Bld) 8 % Normal [facility] Comment on above: Performed By: #### 1 [id number] #### [facility] [address] [place] [address] 28798 Sales And Service Change Leader: Herb Quiroz MD Lymphocytes/100 WBC (Bld) 4 % Normal [facility] Comment on above: Performed By: #### 1 [id number] #### [facility] [address] [place] [address] 11040 Sales And Service Change Leader: Herb Quiroz MD Monocytes/100 WBC (Bld) 3 % Normal [facility] Comment on above: Performed By: #### 1 [id number] #### [facility] [address] [place] [address] Sales And Service Change Leader: Herb Quiroz MD Segmented neutrophils/100 WBC (Bld) 85 % Normal [facility] Comment on above: Performed By: #### 1 [id number] #### [facility] [address] [place] [address] Sales And Service Change Leader: Herb Quiroz MD Nursing Clinical Noteon Nursing Clinical Note Received report fr odilia Denton RN. Patient resting in bed, eyes closed. resp even and unlabored. ivf infusing without difficulty. jasso in place draining clear yellow urine. safety maintained. Normal [facility] Nursing Clinical Note 0710 Report receiv [...] All bedding changed, now gown applied. Normal [facility] Nursing Clinical Note 2135-Patient resti ng [...] well. 550ml clear yellow urine noted. Normal [facility] PCTon 04-06-2021 Procalcitonin 0.63 ng/mL Normal [facility] Comment on above: Result Comment: INTE [...] or septic shock. Performed By: #### 1 [id number] #### [facility] [address] [place] [address] Sales And Service Change Leader: Herb Quiroz MD POC Glucoseon 04-06-2021 Glucose [Mass/Vol] 123 mg/dL High 72-100 [facility] Comment on above: Performed By: #### 1 [id number] ####[facility] [address] [place] [address] Medical Director: Herb Quiroz MD Glucose [Mass/Vol] 110 mg/dL High 72-100 [facility] Comment on above: Performed By: #### 9 [id number], [id number] #### [facility] [address] [place] [address] 04524 Sales And Service Change Leader: Herb Quiroz MD Glucose [Mass/Vol] 117 mg/dL High 72-100 [facility] Comment on above: Performed By: #### 9 [id number], [id number] #### [facility] [address] [place] [address] 50353 Sales And Service Change Leader: Herb Quiroz MD Glucose [Mass/Vol] 128 mg/dL [facility] [address] [facility] Comment on above: Performed By: #### 1 [id number] #### [facility] [address] [place] [address] 53578 Sales And Service Change Leader: Herb Quiroz MD U CREAT RANDOMon 04-06-2021 Creatinine Random, U 182.0 mg/dL Normal [facility] Comment on above: Performed By: #### 1 [id number] #### [facility] [address] [place] [address] 60207 Sales And Service Change Leader: Herb Quiroz MD Creatinine Random, U 180.0 mg/dL Normal [facility] Comment on above: Performed By: #### 1 [id number], [id number], [id number] #### [facility] [address] [place] [address] 52561 Sales And Service Change Leader: Herb Quiroz MD U NA RANDOMon 04-06-2021 Sodium [Moles/Vol] 21 mmol/L Normal [facility] Comment on above: Performed By: #### 1 [id number] #### [facility] [address] [place] [address] 75140 Sales And Service Change Leader: Herb Quiroz MD Sodium [Moles/Vol] 20 mmol/L Normal [facility] Comment on above: Performed By: #### 1 , [id number], [id number] #### [facility] [address] [place] [address] 09548 Sales And Service Change Leader: Herb Quiroz MD U OSMOon 04-06-2021 Osmolality, U 929 mOsm/kg Normal 390-1090 [facility] Comment on above: Performed By: #### 1 , , [id number] #### [facility] [address] [place] [address] 39968 Sales And Service Change Leader: Herb Quiroz MD Specific gravity (U) [Rel density] 1.029 Normal [facility] Comment on above: Performed By: #### 1 , [id number], [id number] #### [facility] [address] [place] [address] 58673 Sales And Service Change Leader: Herb Quiroz MD U UREA RANDOMon 04-06-2021 Random Urea, U 1800 mg/dL Normal [facility] Comment on above: Performed By: #### 1 [id number] #### [facility] [address] [place] [address] 74849 Sales And Service Change Leader: Herb Quiroz MD UAon 04-06-2021 Appearance, U Clear Normal [facility] Comment on above: Performed By: #### 1 [id number] #### [facility] [address] [place] [address] 15793 Sales And Service Change Leader: Herb Quiroz MD Bilirubin, U Negative Normal Negative [facility] Comment on above: Performed By: #### 1 [id number] #### [facility] [address] [place] [address] 80792 Sales And Service Change Leader: Herb Quiroz MD Blood, U Small Abnormal Negative [facility] Comment on above: Performed By: #### 1 [id number] #### [facility] [address] [place] [address] 48718 Sales And Service Change Leader: Herb Quiroz MD Color, U Yellow Normal [facility] Comment on above: Performed By: #### 1 [id number] #### [facility] [address] [place] [address] 58429 Sales And Service Change Leader: Herb Quiroz MD Glucose Qual, U Negative Normal Negative [facility] Comment on above: Performed By: #### 1 [id number] #### [facility] [address] [place] [address] 84194 Sales And Service Change Leader: Herb Qurioz MD Ketones, U Negative Normal Negative [facility] Comment on above: Performed By: #### 1 [id number] #### [facility] [address] [place] [address] 97842 Sales And Service Change Leader: Herb Quiroz MD Leukocyte Esterase, U Negative Normal Negative [facility] Comment on above: Performed By: #### 1 [id number] #### [facility] [address] [place] [address] 22351 Sales And Service Change Leader: Herb Quiroz MD Mucous, U Occasional Normal [facility] Comment on above: Performed By: #### 1 [id number] #### [facility] [address] [place] [address] 16017 Sales And Service Change Leader: Herb Quiroz MD Nitrite, U Negative Normal Negative [facility] Comment on above: Performed By: #### 1 [id number] #### [facility] [address] [place] [address] 17432 Sales And Service Change Leader: Herb Quiroz MD pH, U 5.0 Normal 4.5-8.0 [facility] Comment on above: Performed By: #### 1 [id number] #### [facility] [address] [place] [address] 89490 Sales And Service Change Leader: Herb Quiroz MD Protein, U Negative Normal Negative [facility] Comment on above: Performed By: #### 1 [id number] #### [facility] [address] [place], [place] [id number] Sales And Service Change Leader: Herb Quiroz MD RBC/HPF, U 1 #/HPF Normal 0-3 [facility] Comment on above: Performed By: #### 1 [id number] #### [facility] [address] [place] [address] 14956 Sales And Service Change Leader: Herb Quiroz MD Specific Benedicta, U 1.028 Normal 1.001-1.035 [facility] Comment on above: Performed By: #### 1 [id number] #### [facility] [address] [place] [address] 06024 Sales And Service Change Leader: Herb Quiroz MD Squamous Epithelial Cells, U <1 Normal [facility] Comment on above: Performed By: #### 1 [id number] #### [facility] [address] [place] [address] 64528 Sales And Service Change Leader: Herb Quiroz MD U MICRO Indicated Normal [facility] Comment on above: Performed By: #### 1 [id number] #### [facility] [address] [place] [address] 01220 Sales And Service Change Leader: Herb Quiroz MD Urobilinogen Qual, U <2.0 mg/dl Normal <2.0 mg/dl [facility] Comment on above: Result Comment: EU/d l and mg/dl are equivalent units. Performed By: #### 1 [id number] #### [facility] [address] [place] [address] 25642 Sales And Service Change Leader: Herb Quiroz MD WBC/HPF, U 1 #/HPF Normal 0-5 [facility] Comment on above: Performed By: #### 1 [id number] #### [facility] [address] [place] [address] 89705 Sales And Service Change Leader: Herb Quiroz MD US KIDNEY ECHOon 04-06-2021 US KIDNEY ECHO Renal ultrasound 04/05/2021 2:25 PM TRANSFER CONTROLLER History: RENAL INSUFFICIENCY Tech notes: WHAT SYMPTOMS [...] by: Cedrick Vale MD 04/06/2021 9:29 AM TRANSFER CONTROLLER Technologist: BB Dictated By: CEDRICK VALE MD Signed By: CEDRICK VALE MD Signed Out: 04/06/21 10:29:47 Normal [facility] 04-06-2021 Date Last Dose See MAR Summary Normal [facility] Comment on above: Result Comment: VERI FIED by Discern Expert. Performed By: #### 1 [id number] #### [facility] [address] [place] [address] 24834 Sales And Service Change Leader: Herb Quiroz MD Time Last Dose See MAR Summary Normal [facility] Comment on above: Result Comment: VERI FIED by Discern Expert. Performed By: #### 1 [id number] #### [facility] [address] [place] [address] 10266 Sales And Service Change Leader: Herb Quiroz MD Vancomycin Random 5.40 ug/ml Normal 5.00-40.00 [facility] Comment on above: Performed By: #### 1 [id number] #### [facility] [address] [address] Sales And Service Change Leader: Herb Quiroz MD APTTon 04-05-2021 aPTT Coag (Bld) [Time] 29.1 s Normal 26.0-39.0 [facility] Comment on above: Performed By: #### 1 [id number] #### [facility] [address] [place] [address] 03128 Sales And Service Change Leader: Herb Quiroz MD AUTO DIFFon 04-05-2021 Baso Count Normal 0.00-0.20 [facility] Comment on above: Performed By: #### 1 [id number] #### [facility] [address] [place] [address] 12530 Sales And Service Change Leader: Herb Quiroz MD Basos % Normal [facility] Comment on above: Performed By: #### 1 [id number] #### [facility] [address] [place] [address] 23890 Sales And Service Change Leader: Herb Quiroz MD Eos Count Normal 0.00-0.50 [facility] Comment on above: Performed By: #### 1 [id number] #### [facility] [address] [place] [address] 29997 Sales And Service Change Leader: Herb Quiroz MD Eosin % Normal [facility] Comment on above: Performed By: #### 1 [id number] #### [facility] [address] [place] [address] 31014 Sales And Service Change Leader: Herb Quiroz MD Lymph % Normal [facility] Comment on above: Performed By: #### 1 [id number] #### [facility] [address] [place] [address] 41989 Sales And Service Change Leader: Herb Quiroz MD Lymph Count Normal 1.20-4.80 [facility] Comment on above: Performed By: #### 1 [id number] #### [facility] [address] [place] [address] 10616 Sales And Service Change Leader: Herb Quiroz MD Marin % Normal [facility] Comment on above: Performed By: #### 1 [id number] #### [facility] [address] [place] [address] 81416 Sales And Service Change Leader: Herb Quiroz MD Marin Count Normal 0.10-1.00 [facility] Comment on above: Performed By: #### 1 [id number] #### [facility] [address] [place] [address] 11680 Sales And Service Change Leader: Herb Quiroz MD Neutrophil % Normal [facility] Comment on above: Performed By: #### 1 [id number] #### [facility] [address] [place] [address] 34156 Sales And Service Change Leader: Herb Quiroz MD Neutrophil Count (ANC) Normal 1.40-8.80 [facility] Comment on above: Performed By: #### 1 [id number] #### [facility] [address] [place] [address] 84070 Sales And Service Change Leader: Herb Quiroz MD COMPMETAon 04-05-2021 Albumin/Globulin [Mass ratio] 0.9 {ratio} Normal [facility] Comment on above: Performed By: #### 1 [id number] #### [facility] [address] [place] [address] 81720 Sales And Service Change Leader: Herb Quiroz MD GFR AA 34 Normal [facility] Comment on above: Result Comment: Afri can Ethiopian GFR Calc Medical judgement is necessary to [...] for drug dosing. Performed By: #### 1 [id number] #### [facility] [address] [place] [address] 73515 Sales And Service Change Leader: Herb Quiroz MD Globulin (S) [Mass/Vol] 4.3 g/dL Normal [facility] Comment on above: Performed By: #### 1 [id number] #### [facility] [address] [place] [address] 18436 Sales And Service Change Leader: Herb Quiroz MD Glomerular Filtration Rate 28 mL/min/1.73m? [facility] Comment on above: Result Comment: [...] for drug dosing. Performed By: #### 1 [id number] #### [facility] [address] [place] [address] 87895 Sales And Service Change Leader: Herb Quiroz MD Osmolality [Osmolality] 284 mosm/kg Normal 275-295 [facility] Comment on above: Performed By: #### 1 36351 #### [facility] [address] [place] [address] 07785 Sales And Service Change Leader: Herb Quiroz MD Urea nitrogen/Creatinine [Mass ratio] 14.0 mg/mg Normal [facility] Comment on above: Performed By: #### 1 [id number] #### [facility] [address] [place] [address] 23769 Sales And Service Change Leader: Herb Quiroz MD Albumin [Mass/Vol] 3.7 g/dL Normal 3.4-5.0 [facility] Comment on above: Performed By: #### 1 [id number] #### [facility] [address] [place] [address] 46605 Sales And Service Change Leader: Herb Quiroz MD Alk Phos 84 unit/L Normal 45-117 [facility] Comment on above: Performed By: #### 1 26857 #### [facility] [address] [place] [address] 18757 Sales And Service Change Leader: Herb Quiroz MD Bilirubin [Mass/Vol] 0.78 mg/dL Normal 0.20-1.00 [facility] Comment on above: Result Comment: Use of this assay is not recommended for patients undergoing treatment with eltrombopag due to the potential for falsely elevated results. Performed By: #### 1 [id number] #### [facility] [address] [place] [address] 60335 Sales And Service Change Leader: Herb Quiroz MD Calcium [Mass/Vol] 9.2 mg/dL Normal 8.5-10.5 [facility] Comment on above: Performed By: #### 1 [id number] #### [facility] [address] [place] [address] 50316 Sales And Service Change Leader: Herb Quiroz MD Chloride [Moles/Vol] 105 mmol/L Normal 100-109 [facility] Comment on above: Performed By: #### 1 18581 #### [facility] [address] [place] [address] 73750 Sales And Service Change Leader: Herb Quiroz MD CO2 [Moles/Vol] 23.0 mmol/L Normal 21.0-32.0 [facility] Comment on above: Performed By: #### 1 [id number] #### [facility] [address] [place] [address] 70370 Sales And Service Change Leader: Herb Quiroz MD Creatinine [Mass/Vol] 2.3 mg/dL High 0.7-1.3 [facility] Comment on above: Performed By: #### 1 [id number] #### [facility] [address] [place] [address] 59765 Sales And Service Change Leader: Herb Quiroz MD Glucose [Mass/Vol] 325 mg/dL High 72-100 [facility] Comment on above: Result Comment: Nori puncture should occur prior to sulfasalazine administration due to the potential for falsely depressed results. Venipuncture should occur prior to sulfapyridine administration due to the potential falsely elevated results. Baseline assay values before administration of sulfasalazine and sulfapyridine therapy would not be affected. Performed By: #### 1 [id number] #### [facility] [address] [address] Sales And Service Change Leader: Herb Quiroz MD GOT 11 unit/L Low 15-37 [facility] Comment on above: Result Comment: Nori puncture should occur prior to sulfasalazine and/or sulfapyridine administration due to the potential for falsely depressed results. Baseline assay values before administration of sulfasalazine and sulfapyridine therapy would not be affected. Performed By: #### 1 [id number] #### [facility] [address] [place] [address] 82258 Sales And Service Change Leader: Herb Quiroz MD GPT 19 unit/L Normal 16-61 [facility] Comment on above: Result Comment: Nori puncture should occur prior to sulfasalazine and/or sulfapyridine administration due to the potential for falsely depressed results. Baseline assay values before administration of sulfasalazine and sulfapyridine therapy would not be affected. Performed By: #### 1 [id number] #### [facility] [address] [place] [address] 98244 Sales And Service Change Leader: Herb Quiroz MD Potassium [Moles/Vol] 6.3 mmol/L Critically abnormal 3.5-5.1 [facility] Comment on above: Result Comment: Crit ical Result(s) called at: 04:27:57 on 04/05/2021 by: Lloyd Ferrari rechecked, RBR to: GAVIN in [facility] Performed By: #### 1 [id number] #### [facility] [address] [place] [address] 21830 Sales And Service Change Leader: Herb Quiroz MD Protein [Mass/Vol] 8.0 g/dL Normal 6.0-8.5 [facility] Comment on above: Performed By: #### 1 [id number] #### [facility] [address] [place] [address] 24715 Sales And Service Change Leader: Herb Quiroz MD Sodium [Moles/Vol] 132 mmol/L Low 135-145 [facility] Comment on above: Performed By: #### 1 [id number] #### [facility] [address] [place] [address] 52306 Sales And Service Change Leader: Herb Quiroz MD Urea nitrogen [Mass/Vol] 32 mg/dL High 10-20 [facility] Comment on above: Performed By: #### 1 [id number] #### [facility] [address] [place] [address] 36981 Sales And Service Change Leader: Herb Quiroz MD COVID-19 Molecular SWEDon SARS-CoV-2 (COVID-19) RNA AARTI+probe Ql (Unsp spec) Negative Normal [facility] Comment on above: Result Comment: This [...] Use Authorization and has been verified by [facility] Microbiology laboratory. This test is only [...] sooner. This testing was performed in the [facility] laboratory located at [[place] [address]] Performed By: #### C [id number] ####[facility] [id number] [place] [address] Medical Director: Herb Quiroz MD CPKon 04-05-2021 CPK 272 unit/L Normal 39-308 [facility] Comment on above: Performed By: #### 1 [id number] #### [facility] [address] [place] [address] Sales And Service Change Leader: Herb Quiroz MD CT BRAIN HEAD WO [...] by: Morris Levine MD 04/05/2021 3:38 AM TRANSFER CONTROLLER Workstation: [id number] Technologist: TMP Dictated By: MORRIS LEVINE MD Signed By: MORRIS LEVINE MD Signed Out: 04/05/21 04:38:02 Normal [facility] CT CERVICAL SPINE WO CONTRAS Ton [...] by: Morris Levine MD 04/05/2021 3:38 AM TRANSFER CONTROLLER Workstation: [id number] Technologist: TMP Dictated By: MORRIS LEVINE MD Signed By: MORRIS LEVINE MD Signed Out: 04/05/21 04:38:02 Normal [facility] ED Discharge Educationon ED Discharge Education Normal So [facility] ED Patient Summaryon 022 ED Patient Summary [facility] Emergency Department Discharge Instructions [address] [place] [address] \.br\(Patien t Copy)\.br\ \.br\Name: ALLAN LARA : 1950 \.br\Allergies: No Known Allergies\.br\Diagno sis: Diagnoses This Visit\.br\ Multiple falls ([id number])\. br\ Nausea ([id number] aeg)\.br\\.br\\.br\ \.br\ Visit Date: 04/05/2021 03:15:28 \.br\ Current Date Time: 04/05/2021 14:39:00 \.br\Address: [address] [place] [id number] \.br\ \.br\ \.br\Primary Care Provider: \.br\Name: CASE KAUFFMAN, JESSI H\.br\ \.br\ \.br\Emergency Department Care Providers: \.br\ Primary Physician: ROLANDO TUCKER MD \.br\ \.br\ \.br\\.br\Thank you for choosing [facility] for your emergency care. You are very important to us. Our goal is to demonstrate our high quality medical care, and provide you with a very good patient experience.\.br\\.br \You may receive a survey about our service. Please take the time to complete the survey and return it so we can continue to enhance our service.\.br\\.br\Th ank you again for allowing the [facility] Emergency Department to care for your medical needs. If you have questions about your care or follow up information please contact us at [phone].\.br\\. br\ Follow-Up Instructions\.br\___ \.br\ALLAN LARA has been given these follow-up instructions:\.br\\. br\Patient Education Materials\.br\ __\.br\ALLAN LARA has been given the following patient education materials:\.br\\.br\ \.br\BEFORE YOU LEAVE\.br\\.br\Set up your [facility] [employer] account!\.br\ \.br\[employer] is a secure, online health management tool that connects you to portions of your hospital-based electronic medical record, allowing you to see test results, manage appointments, access discharge care instructions and much more.\.br\ \.br\You can access [employer] from a computer, tablet or smartphone. Enrollment/registrat ion is required. If you do not have a [employer] account, please provide us with an email address before you leave so that we may set up an account for you.\.br\ \.br\New to [employer]!\.br\You may now securely connect some of the health management apps you use (e.g., fitness trackers, dietary trackers, etc.) to your health record in [facility] [employer]. This new feature provides expanded access to your health and wellness data, which will help you and your care team make informed decisions about your health care. \.br\If you are interested in using a health management luz not currently connected to [employer], contact a Supervisor Train Operations at [phone] or [email or web address]. We will determine if the luz meets the technical requirements to connect to [facility] [employer] and assure the security of your private [...] with you (more content not included)... Normal [facility] ED Pre-Arrival Formon 2021 ED Pre-Arrival Form Pre-Arrival Summary Name: physicians, Current Date: 04/05/2021 03:15:50 EST Gender: Date of : Age: Pre-Arrival Type: EMS ETA: 04/05/2021 03:39:00 EST Primary Care Physician: Presenting Problem: Pre-Arrival User: Kailey Jordan Referring Source: Location: 1 [facility] Emergency Department [address] [place], [place] [id number] ____ Notes: Vital Signs: Doctor Call Back: DNR Status: Miscellaneous Issues: Normal [facility] ED Progress Noteon 2 ED Progress Note Pt presented to the ED via [facility] with c/o multiple falls, per the [...] inserted, labs drawn, pt placed on the card maker. 0630 Dr. Gamboa at the bedside to answer pt questions and discuss test results. Pt to be admitted to the hospital. 0715 Report to Angella BEEBE THE PATIENT IS ON 2 LITERS NASAL CANNULA. HE IS REORIENTED TO TIME. THE PATIENT DENIES COMPLAINTS. TO [facility]LOOR VIA CLINICAL TRANSPORT. S/P REPORT CALLED. THE PATIENT DENIES COMPLAINTS. HE IS STABLE ON 2 LITERS NASAL CANNULA Normal [facility] HEMOon 04-05-2021 Nucleated RBC Normal [facility] Comment on above: Performed By: #### 1 [id number] #### [facility] [address] [place] [address] Sales And Service Change Leader: Herb Quiroz MD DIFF? Yes Normal [facility] Comment on above: Performed By: #### 1 [id number] #### [facility] [address] [place] [address] Sales And Service Change Leader: Herb Quiroz MD Dx Actions See Notes Abnormal [facility] Comment on above: Result Comment: Scan Slide. Perform manual diff if needed. SNV Performed By: #### 1 [id number] #### [facility] [address] [place], [place] [id number] Sales And Service Change Leader: Herb Quiroz MD Erythrocyte distribution width (RBC) [Ratio] 13.9 % Normal 11.5-14.5 [facility] Comment on above: Performed By: #### 1 [id number] #### [facility] [address] [place] [address] Sales And Service Change Leader: Herb Quiroz MD Hematocrit (Bld) [Volume fraction] 49.8 % Normal 41.0-52.0 [facility] Comment on above: Performed By: #### 1 [id number] #### [facility] [address] [place] [address] Sales And Service Change Leader: Herb Quiroz MD Hemoglobin (Bld) [Mass/Vol] 16.7 g/dL Normal 13.5-17.5 [facility] Comment on above: Performed By: #### 1 [id number] #### [facility] [address] [place] [address] Sales And Service Change Leader: Herb Quiroz MD Instr WBC 25.6 Normal [facility] Comment on above: Performed By: #### 1 [id number] #### [facility] [address] [address] Sales And Service Change Leader: Herb Quiroz MD MCH (RBC) [Entitic mass] 29.7 pg Normal 27.0-34.0 [facility] Comment on above: Performed By: #### 1 [id number] #### [facility] [address] [place] [address] Sales And Service Change Leader: Herb Quiroz MD MCHC (RBC) [Mass/Vol] 33.5 g/dL Normal 32.0-37.0 [facility] Comment on above: Performed By: #### 1 [id number] #### [facility] [address] [place] [address] Sales And Service Change Leader: Herb Quiroz MD MCV (RBC) [Entitic vol] 88.7 fL Normal 80.0-100.0 [facility] Comment on above: Performed By: #### 1 [id number] #### [facility] [address] [place] [address] Sales And Service Change Leader: Herb Quiroz MD MDW 22.50 High 13.98-20.00 [facility] Comment on above: Result Comment: MDW [...] risk of Sepsis. Performed By: #### 1 [id number] #### [facility] [address] [place] [address] Sales And Service Change Leader: Herb Quiroz MD Platelet 259 x1000 Normal 150-450 [facility] Comment on above: Performed By: #### 1 [id number] #### [facility] [address] [place] [address] Sales And Service Change Leader: Herb Quiroz MD Platelet mean volume (Bld) [Entitic vol] 8.9 fL Normal 7.4-10.4 [facility] Comment on above: Performed By: #### 1 [id number] #### [facility] [address] [place] [address] Sales And Service Change Leader: Herb Quiroz MD RBC 5.62 x10 Normal 4.70-6.10 [facility] Comment on above: Result Comment: Note : RBC morphology is normal unless otherwise stated. Evaluation performed only if differential is requested. Performed By: #### 1 [id number] #### [facility] [address] [place] [address] Sales And Service Change Leader: Herb Quiroz MD WBC 25.6 x10 High 4.5-11.0 [facility] Comment on above: Performed By: #### 1 [id number] #### [facility] [address] [place] [address] Sales And Service Change Leader: Herb Quiroz MD K LEVELon 04-05-2021 Potassium [Moles/Vol] 4.0 mmol/L Normal 3.5-5.1 [facility] Comment on above: Performed By: #### 9 [id number] #### [facility] [address] [place] [address] Sales And Service Change Leader: Herb Quiroz MD LACTATEon 04-05-2021 Lactate [Moles/Vol] 3.1 mmol/L High 0.4-2.0 [facility] Comment on above: Performed By: #### 1 [id number] #### [facility] [address] [place] [address] Sales And Service Change Leader: Herb Quiroz MD Lactate [Moles/Vol] 3.6 mmol/L High 0.4-2.0 [facility] Comment on above: Performed By: #### 1 [id number] ####[facility] [id number] [place] [address] [id number]) [phone] Director: Herb Quiroz MD MAN DIFFon 04-05-[address] 2.82 x1000 High 0.00-0.70 [facility] Comment on above: Performed By: #### 1 [id number] #### [facility] [address] [place] [address] Sales And Service Change Leader: Herb Quiroz MD Absolute Lymph Ct 0.26 x1000 Low 1.20-4.80 [facility] Comment on above: Performed By: #### 1 [id number] #### [facility] [address] [place] [address] Sales And Service Change Leader: Herb Quiroz MD Absolute Marin Ct 0.77 x1000 Normal 0.10-1.00 [facility] Comment on above: Performed By: #### 1 [id number] #### [facility] [address] [place] [address] Sales And Service Change Leader: Herb Quiroz MD Absolute Neutrophil Ct 24.58 x1000 High 1.40-8.80 [facility] Comment on above: Performed By: #### 1 [id number] #### [facility] [address] [place] [address] Sales And Service Change Leader: Herb Quiroz MD Absolute Seg Ct 21.76 x1000 High 1.40-8.80 [facility] Comment on above: Performed By: #### 1 [id number] #### [facility] [address] [place] [address] Sales And Service Change Leader: Herb Quiroz MD Band form neutrophils/100 WBC (Bld) 11 % Normal [facility] Comment on above: Performed By: #### 1 [id number] #### [facility] [address] [place] [address] Sales And Service Change Leader: Herb Quiroz MD Left Shift Present Abnormal [facility] Comment on above: Performed By: #### 1 [id number] #### [facility] [address] [place] [address] Sales And Service Change Leader: Herb Quiroz MD Lymphocytes/100 WBC (Bld) 1 % Normal [facility] Comment on above: Performed By: #### 1 [id number] #### [facility] [address] [place] [address] Sales And Service Change Leader: Herb Quiroz MD Monocytes/100 WBC (Bld) 3 % Normal [facility] Comment on above: Performed By: #### 1 [id number] #### [facility] [address] [place] [address] Sales And Service Change Leader: Herb Quiroz MD Segmented neutrophils/100 WBC (Bld) 85 % Normal [facility] Comment on above: Performed By: #### 1 [id number] #### [facility] [address] [place] [address] Sales And Service Change Leader: Herb Quiroz MD Nursing Clinical Noteon 03-08 Nursing Clinical Note Pt arrived from ED , pivot from cart to bed, unsteady, alarm on Pt oriented at this time but forgetful, discussed poc Dr. Tucker paged [phone] Spoke with Dr. Tucker, see orders. Dr. Tucker in to see pt [facility] Normal [facility] PCTon 04-05-2021 Procalcitonin 1.67 ng/mL Normal [facility] Comment on above: Result Comment: INTE [...] or septic shock. Performed By: #### 9 [id number], [id number] #### [facility] [address] [place] [address] Sales And Service Change Leader: Herb Quiroz MD POC Glucoseon 04-05-2021 Glucose [Mass/Vol] 163 mg/dL High 72-100 [facility] Comment on above: Performed By: #### 1 [id number], [id number], [id number] #### [facility] [address] [place] [address] Sales And Service Change Leader: Herb Quiroz MD Glucose [Mass/Vol] 151 mg/dL High 72-100 [facility] Comment on above: Performed By: #### 9 [id number], [id number] #### [facility] [address] [place] [address] Sales And Service Change Leader: Herb Quiroz MD Glucose [Mass/Vol] 144 mg/dL High 72-100 [facility] Comment on above: Performed By: #### 1 [id number] #### [facility] [address] [place] [address] Sales And Service Change Leader: Herb Quiroz MD PSAon 04-05-2021 Prostatic Specific Antigen 1.1 ng/mL Normal 0.0-4.0 [facility] Comment on above: Performed By: #### 1 [id number] #### [facility] [address] [place] [address] Sales And Service Change Leader: Herb Quiroz MD PT INRon 04-05-2021 INR Coag (PPP) [Relative time] 1.0 {INR} Normal [facility] Comment on above: Result Comment: INR Reference Range: Normal reference range for INR on patients not on anticoagulant therapy: 0.9-1.1 General therapeutic range for patients on anticoagulant therapy: 2.0-3.5 Performed By: #### 1 [id number] #### [facility] [address] [place] [address] Sales And Service Change Leader: Herb Quiroz MD Protime Patient 11.9 seconds Normal 9.8-13.4 [facility] Comment on above: Performed By: #### 1 [id number] #### [facility] [address] [place] [address] Sales And Service Change Leader: Herb Quiroz MD Progress Note-Physicianon Progress Note-Physician [...] 2.3 mg/dL High WBC: 25.6 x10 Normal [facility] TROPONIN HS 0HRon 04-05-2021 Troponin HS 0 Hr 8 pg/mL Normal [facility] Comment on above: Performed By: #### 1 [id number] #### [facility] [address] [place] [address] Sales And Service Change Leader: Herb Quiroz MD TROPONIN HS 2HRon 04-05-2021 Delta Troponin 2 Hr 1 pg/mL Normal 0-14 [facility] Comment on above: Result Comment: The term acute myocardial infarction should be used when there is acute myocardial injury with clinical evidence of acute myocardial ischemia and the rise or fall of serial Troponin HS values (delta troponin) greater than or equal to 15 pg/mL with at least one Troponin HS value above the 99th percentile reference range Performed By: #### C [id number] ####[facility] [id number] [place] [address] Medical Director: Herb Quiroz MD Troponin HS 2 Hr 7 pg/mL Normal [facility] Comment on above: Performed By: #### C [id number] ####[facility] [id number] [place] [address] Medical Director: Herb Quiroz MD TROPONIN HS 6HRon 04-05-2021 Delta Troponin 6 Hr 3 pg/mL Normal 0-14 [facility] Comment on above: Result Comment: The term acute myocardial infarction should be used when there is acute myocardial injury with clinical evidence of acute myocardial ischemia and the rise or fall of serial Troponin HS values (delta troponin) greater than or equal to 15 pg/mL with at least one Troponin HS value above the 99th percentile reference range Performed By: #### 1 [id number] #### [facility] [address] [place] [address] Sales And Service Change Leader: Herb Quiroz MD Troponin HS 6 Hr 10 pg/mL Normal 3-78 [facility] Comment on above: Performed By: #### 1 [id number] #### [facility] [address] [place] [address] Sales And Service Change Leader: Herb Quiroz MD UAon 04-05-2021 Appearance, U Cloudy Normal [facility] Comment on above: Performed By: #### 1 [id number] #### [facility] [address] [place] [address] Sales And Service Change Leader: Herb Quiroz MD Bilirubin, U See Footnote Normal [facility] Comment on above: Result Comment: Init ial positive results not confirmed. Interfering substances may include elevated urobilinogen. Performed By: #### 1 [id number] #### [facility] [address] [place] [address] Sales And Service Change Leader: Herb Quiroz MD Blood, U Negative Normal Negative [facility] Comment on above: Performed By: #### 1 [id number] #### [facility] [address] [place] [address] Sales And Service Change Leader: Herb Quiroz MD Calcium Oxalate Crystals Occasional Normal [facility] Comment on above: Performed By: #### 1 [id number] #### [facility] [address] [place] [address] Sales And Service Change Leader: Herb Quiroz MD Color, U Sabrina Normal [facility] Comment on above: Performed By: #### 1 [id number] #### [facility] [address] [place] [address] Sales And Service Change Leader: Herb Quiroz MD Glucose Qual, U Negative Normal Negative [facility] Comment on above: Performed By: #### 1 [id number] #### [facility] [address] [place] [address] Sales And Service Change Leader: Herb Quiroz MD Hyaline Cast 5 #/HPF Normal [facility] Comment on above: Performed By: #### 1 [id number] #### [facility] [address] [place] [address] Sales And Service Change Leader: Herb Quiroz MD Ketones, U Trace Abnormal Negative [facility] Comment on above: Performed By: #### 1 [id number] #### [facility] [address] [place] [address] Sales And Service Change Leader: Herb Quiroz MD Leukocyte Esterase, U Negative Normal Negative [facility] Comment on above: Performed By: #### 1 [id number] #### [facility] [address] [place] [address] Sales And Service Change Leader: Herb Quiroz MD Mucous, U Occasional Normal [facility] Comment on above: Performed By: #### 1 [id number] #### [facility] [address] [place] [address] Sales And Service Change Leader: Herb Quiroz MD Nitrite, U Negative Normal Negative [facility] Comment on above: Performed By: #### 1 [id number] #### [facility] [address] [place] [address] Sales And Service Change Leader: Herb Quiroz MD pH, U 5.0 Normal 4.5-8.0 [facility] Comment on above: Performed By: #### 1 [id number] #### [facility] [address] [place] [address] Sales And Service Change Leader: Herb Quiroz MD Protein, U 30 mg/dl Abnormal Negative [facility] Comment on above: Performed By: #### 1 [id number] #### [facility] [address] [place] [address] Sales And Service Change Leader: Herb Quiroz MD RBC/HPF, U 4 #/HPF High 0-3 [facility] Comment on above: Performed By: #### 1 [id number] #### [facility] [address] [place] [address] Sales And Service Change Leader: Herb Quiroz MD Specific Benedicta, U 1.027 Normal 1.001-1.035 [facility] Comment on above: Performed By: #### 1 [id number] #### [facility] [address] [place] [address] Sales And Service Change Leader: Herb Quiroz MD Squamous Epithelial Cells, U <1 Normal [facility] Comment on above: Performed By: #### 1 [id number] #### [facility] [address] [place] [address] Sales And Service Change Leader: Herb Quiroz MD U MICRO Indicated Normal [facility] Comment on above: Performed By: #### 1 [id number] #### [facility] [address] [place] [address] Sales And Service Change Leader: Herb Quiroz MD Urobilinogen Qual, U 4.0 mg/dl Abnormal <2.0 mg/dl [facility] Comment on above: Result Comment: EU/d l and mg/dl are equivalent units. Performed By: #### 1 [id number] #### [facility] [address] [place] [address] Sales And Service Change Leader: Herb Quiroz MD WBC/HPF, U 3 #/HPF Normal 0-5 [facility] Comment on above: Performed By: #### 1 [id number] #### [facility] [address] [place] [address] Sales And Service Change Leader: Herb Quiroz MD BASIC METABOLIC PANELon 03-06 Anion gap [Moles/Vol] 12 mmol/L Normal 10 - 20 [facility] Comment on above: Performed By: #### B MP #### [address] [address] Calcium [Mass/Vol] 8.8 mg/dL Normal 8.6 - 10.3 [facility] Comment on above: Performed By: #### B MP #### [address] [address] Chloride [Moles/Vol] 102 mmol/L Normal 98 - 107 [facility] Comment on above: Performed By: #### B MP #### [address] [address] Creatinine [Mass/Vol] 1.28 mg/dL Normal 0.50 - 1.30 [facility] Comment on above: Performed By: #### B MP #### [address] [address] GFR/1.73 sq M.predicted among non-blacks MDRD (S/P/Bld) [Vol rate/Area] 59 mL/min/{1.73_m2} Abnormal >90 [facility] Comment on above: Result Comment: CALC ULATIONS OF ESTIMATED GFR ARE PERFORMED USING THE 2020 CKD-EPI STUDY REFIT EQUATION WITHOUT THE RACE VARIABLE FOR THE IDMS-TRACEABLE CREATININE METHODS. https://jasn.asnjournals.org/content/early//ASN.071 0010646 Performed By: #### B MP #### [address] [address] Glucose [Mass/Vol] 201 mg/dL High 74 - 99 [facility] Comment on above: Performed By: #### B MP #### [address] [address] HCO3 (Bld) [Moles/Vol] 27 mmol/L Normal 21 - 32 [facility] Comment on above: Performed By: #### B MP #### [address] [address] Potassium [Moles/Vol] 4.7 mmol/L Normal 3.5 - 5.3 [facility] Comment on above: Performed By: #### B MP #### [address] [address] Sodium [Moles/Vol] 136 mmol/L Normal 136 - 145 [facility] Comment on above: Performed By: #### B MP #### [address] [address] Urea nitrogen [Mass/Vol] 17 mg/dL Normal 6 - 23 [facility] Comment on above: Performed By: #### B MP #### [address] [address] CBC AND DIFFERENTIALon 03-18 % AUTOMATED IMMATURE GRAN 1.5 % High 0.0 - 0.9 [facility] Comment on above: Result Comment: Maryam ture Granulocyte Count (IG) includes promyelocytes, myelocytes and metamyelocytes but does not include bands. Percent differential counts (%) should be interpreted in the context of the absolute cell counts (cells/L). Performed By: #### C BCDF #### [address] [address] Basophils (Bld) [#/Vol] 0.06 10*3/uL Normal 0.00 - 0.1 0 [facility] Comment on above: Performed By: #### C BCDF #### [address] [address] [address] Basophils/100 WBC (Bld) 0.5 % Normal 0.0 - 2.0 [facility] Comment on above: Performed By: #### C BCDF #### [address] [address] Eosinophils (Bld) [#/Vol] 0.29 10*3/uL Normal 0.00 - 0.40 [facility] Comment on above: Performed By: #### C BCDF #### [address] [place] [address] Eosinophils/100 WBC (Bld) 2.5 % Normal 0.0 - 6.0 [facility] Comment on above: Performed By: #### C BCDF #### [address] [place] [address] Erythrocyte distribution width (RBC) [Ratio] 12.9 % Normal 11.5 - 14.5 [facility] Comment on above: Performed By: #### C BCDF #### [address] [address] Hematocrit (Bld) [Volume fraction] 46.1 % Normal 41.0 - 52.0 [facility] Comment on above: Performed By: #### C BCDF #### [address] [address] Hemoglobin (Bld) [Mass/Vol] 15.0 g/dL Normal 13.5 - 17.5 [facility] Comment on above: Performed By: #### C BCDF #### [address] [address] Lymphocytes (Bld) [#/Vol] 1.60 10*3/uL Normal 0.80 - 3.00 [facility] Comment on above: Performed By: #### C BCDF #### [address] [address] Lymphocytes/100 WBC (Bld) 13.8 % Normal 13.0 - 44.0 [facility] Comment on above: Performed By: #### C BCDF #### [address] [address] MCHC (RBC) [Mass/Vol] 32.5 g/dL Normal 32.0 - 36.0 [facility] Comment on above: Performed By: #### C BCDF #### [address] [address] MCV (RBC) [Entitic vol] 91 fL Normal 80 - 100 [facility] Comment on above: Performed By: #### C BCDF #### [address] [address] Monocytes (Bld) [#/Vol] 0.93 10*3/uL High 0.05 - 0.8 0 [facility] Comment on above: Performed By: #### C BCDF #### [address] [address] Monocytes/100 WBC (Bld) 8.0 % Normal 2.0 - 10.0 [facility] Comment on above: Performed By: #### C BCDF #### [address] [address] Neutrophils (Bld) [#/Vol] 8.55 10*3/uL High 1.60 - 5.50 [facility] Comment on above: Performed By: #### C BCDF #### [address] [address] Neutrophils/100 WBC (Bld) 73.7 % Normal 40.0 - 80.0 [facility] Comment on above: Performed By: #### C BCDF #### [address] [address] NUCLEATED RBC 0.0 /100 WBC Normal 0.0 - 0.0 [facility] Comment on above: Performed By: #### C BCDF #### [address] [address] Platelets (Bld) [#/Vol] 220 10*3/uL Normal 150 - 450 [facility] Comment on above: Performed By: #### C BCDF #### [address] [address] RBC 5.06 x10E12/L Normal 4.50 - 5.90 [facility] Comment on above: Performed By: #### C BCDF #### [address] [address] WBC (Bld) [#/Vol] 11.6 10*3/uL High 4.4 - 11.3 [facility] Comment on above: Performed By: #### C BCDF #### [address] [address] Radiologyon 09-03-2020 US Kidney - bilateral Normal [facility]- [facility] udson 202 Work Phone: US RENAL BILATon 09-03-2020 US RENAL BILAT Patient Name: ALLAN LARA STUDY: US RENAL BILAT; 09/03/2020 11:51 am INDICATION: bosniak 2F renal cysts, enlarged prostate. COMPARISON: None. ACCESSION NUMBER(S): [id number] ORDERING CLINICIAN: CONCETTA LEON TECHNIQUE: Multiple images [...] Electronically signed by: TWILA YADAV MD Normal [facility] Office Visit (Urology)on Follow-up visit [...] Renal mass, right; Ordered By:Concetta Leon; Non DEMAND GENERATION MANAGER - Cytology; Status:Hold For - Specimen/Data Collection; Requested for:19Aug2020; Perform:Non DEMAND GENERATION MANAGER - Cytology; Due:17Nov2020;Ordere d; For:Benign localized hyperplasia [...] Bilateral; Status:Hold For - Scheduling; Requested for:19Aug2020; Perform:[facility]; Due:17Nov2020;Ordere d; For:Benign localized hyperplasia of prostate without urinary obstruction, Bilateral renal cysts, BPH with urinary obstruction, Renal calculi, Renal mass, right; Ordered By:Concetta Leon; Radiologist to Determine Optimal Study : Y Requesting physician's phone/pager number? : [phone] What are the patient's signs and symptoms? [...] studies and renal ultrasound prior office phone [phone] KAROLYN Rendon [phone] fax [phone] Provider Impressions I spent 20 minutes with this patient greater than 50% of time was spent in counseling and coordination of care. See my assessment and plan for details Chief Complaint Renal Mass, Here to review ct scan KAROLYN Rendon Line [phone] Office Line [phone] History of Present Illnessincidental finding or renal [...] History res (more content not included)... Normal [facility] W W/O IV CONTRAST on 08-13-2020 CT ABDOMEN W W/O IV CONTRAST Patient Name: ALLAN LARA STUDY: CT ABDOMEN W W/O IV CONTRAST; 08/13/2020 11:55 am INDICATION: renal mass vs hemorr cyst. COMPARISON: None. 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 : Unknown Patient taking Metformin or Derivatives? : Unknown Radiologist to Determine Optimal Study : Y Requesting physician's phone/pager number? : [phone] What are the patient's signs and symptoms? : incidental finding of renal mass incompletely characterized on CT without contrast 03/26 Renal Function Panel; Status:Active; Requested for:29Jul2020; Perform:Lab Services - Lab To Draw (Blood Test); Due:[id number];Ordere d; For:Bilateral renal cysts, BPH with urinary [...] after Ct scan is obtained office phone [phone] KAROLYN Rendon [phone] Provider Impressions I spent 20 minutes with this patient greater than 50% of time was spent in counseling and coordination of care. See my assessment and plan for details Chief Complaint New Patient, Hospital f/u Renal Mass KAROLYN Rendon Line [phone] Office Line [phone] History of Present Illnessincidental finding or renal [...] age 5, defects Social History resides in [facility] Review of Systems all other systems have [...] 2. Mild degenerative changes. 3. Atherosclerotic disease. Weather Teacher: MATHEW Transcribe Date/Time: Jul 22 2020 2:15P Dictated by : TROY STILES MD This examination was interpreted and the report reviewed and electronically signed by: TROY STILES MD on Jul 22 2020 2:16PM [facility] DIVISION OF RADIOLOGY * * *Final [...] of the vasculature. DIVISION OF RADIOLOGY Provider, [facility] [place] - 07/22/2020 * * *Final Report* * [...] 2. Mild degenerative changes. 3. Atherosclerotic disease. [facility] Transcribe Date/Time: Jul 22 2020 2:15P Dictated by : TROY STILES MD This examination was interpreted and the report reviewed and electronically signed by: TROY STILES MD on Jul 22 2020 2:16PM EST [facility] Radiology Study observation (narrative) Merry Jc XR Hand - right PA and Later al and ObliqueOrdered By: Ccf Provider on 07-22-2020 [facility] COVID-19on 01-27-2020 COVID-19, NAAT Not Detected Normal Not Detect [facility] Comment on above: Result Comment: [...] authorized laboratories. Fact sheet for Healthcare Providers: https://www.fda.gov/media/551448/download Fact sheet for Patients: https://www.fda.gov/media/981351/download METHODOLOGY: Isothermal Nucleic Acid Amplification Performed By: #### C OVPC #### [facility] [address] [place] [address] Folateon 01-17-2020 Folate 13.6 ng/mL Normal 7.3-26.1 [facility] Comment on above: Result Comment: Any hemolysis in specimen will increased Folate results, consider recollection. As of 10/14/15, the methodology has changed. Results from this methodology should not be compared with results from previous methodology. Performed By: #### F OLAT #### [facility] [address] [place] [address] Hemoglobin A1con 01-17-2020 HbA1c (Bld) [Mass fraction] 6.1 % Critically high 4.8-5.9 [facility] Comment on above: Performed By: #### A 1C #### [facility] [address] [place] [address] Lipid Panelon 01-17-2020 Cholesterol [Mass/Vol] 118 mg/dL Normal 0-199 [facility] Comment on above: Result Comment: ATP III Cholesterol classification is Desirable. Performed By: #### L IPID #### [facility] [address] [place] [address] Cholesterol in HDL [Mass/Vol] 45 mg/dL Normal 40-59 [facility] Comment on above: Result Comment: [...] CHD Performed By: #### L IPID #### [facility] [address] [place] [address] Cholesterol in LDL [Mass/Vol] 40 mg/dL Normal 0-129 [facility] Comment on above: Result Comment: ATP III LDL Classification is Optimal. Performed By: #### L IPID #### [facility] [address] [place] [address] Triglyceride [Mass/Vol] 163 mg/dL Critically high 0-150 [facility] Comment on above: Result Comment: ATP III Triglycerides Classification is Borderline High. Performed By: #### L IPID #### [facility] [address] [place] [address] TSH w/out Reflexon 0 TSH Qn 2.690 uIU/mL Normal 0.440-3.86 [facility] Comment on above: Performed By: #### T SH #### [facility] [address] [address] Vitamin B12on 01-17-2020 Cobalamin (Vitamin B12) [Mass/Vol] 379 pg/mL Normal 232-1245 [facility] Comment on above: Performed By: #### B 12 #### [facility] [address] [place] [address] Vitamin Don 01-17-2020 Vitamin D 33.0 ng/mL Normal 30.0-100.0 [facility] Comment on above: Result Comment: (30- 100 ng/mL) Optimum Level This assay accurately quantifies the sum of vitamin D3, 25-Hydroxy and vitamin D2, 25-Hyroxy. Performed By: #### V ITD #### [facility] [address] [place] [address] Vital Signs Date Time Vital Sign Value Performing Clinician Facglenda holland 07-06-2022 15:28-0400 Body temperature 98.6 [degF] Dr. Simone Messer Work Phone: [facility] 07-06-2022 15:28-0400 Diastolic blood pressure 82 mm[Hg] Dr. Simone Messer Work Phone: [facility] 07-06-2022 15:28-0400 Heart rate 101 /min Dr. Simone Messer Work Phone: [facility] 07-06-2022 15:28-0400 Respiratory rate 18 /min Dr. Simone Messer Work Phone: [facility] 07-06-2022 15:28-0400 SaO2% (BldA) [Mass fraction] 97 % Dr. Simone Messer Work Phone: [facility] 07-06-2022 15:28-0400 Systolic blood pressure 146 mm[Hg] Dr. Simone Messer Work Phone: [facility] 07-06-2022 05:36-0400 Body mass index (BMI) [Ratio] 23.8 kg/m2 Dr. Simone Messer Work Phone: [facility] 07-06-2022 05:36-0400 Body weight 72.[address] Simone Messer Work Phone: [facility] 07-04-2022 09:47-0400 Body height 175.[address] Simone Messer Work Phone: [facility] 07-04-2022 05:02-0400 Body temperature 98.1 [degF] [facility] 07-04-2022 05:02-0400 Diastolic blood pressure 71 mm[Hg] [facility] 07-04-2022 05:02-0400 Heart rate 111 /min [facility] 07-04-2022 05:02-0400 Respiratory rate 16 /min [facility] 07-04-2022 05:02-0400 SaO2% (BldA) [Mass fraction] 98 % [facility] 07-04-2022 05:02-0400 Systolic blood pressure 138 mm[Hg] [facility] 07-04-2022 02:33-0400 Body height 175.26 cm [facility] 07-04-2022 02:33-0400 Body mass index (BMI) [Ratio] 23.7 kg/m2 [facility] 07-04-2022 02:33-0400 Body weight 72.8 kg [facility] 05-10-2021 14:26-0500 Body height 175.26 cm Emad H Elbadawy Work Phone: [facility] Work Phone: 05-10-2021 14:26-0500 Body mass index (BMI) [Ratio] 24.44 kg/m2 Emad H Elbadawy Work Phone: [facility] 46[facility] Work Phone: 05-10-2021 14:26-0500 Body surface area Derived from formula 1.91 m2 Emad H Elbadawy Work Phone: UI[facility]eww[facility] 46[facility] Work Phone: 05-10-2021 14:26-0500 Body weight 75.07 kg Emad H Elbadawy Work Phone: RN-Aatmmxm[facility] 4600 Work Phone: 05-10-2021 14:26-0500 Diastolic blood pressure 80 mm[Hg] Emad H Elbadawy Work Phone: AM[facility]yfyya[facility] 46[facility] Work Phone: 05-10-2021 14:26-0500 Heart rate 113 /min Emad H Elbadawy Work Phone: CQ[facility]Dketarg[facility] 46[facility] Work Phone: 05-10-2021 14:26-0500 Systolic blood pressure 114 mm[Hg] Emad H Elbadawy Work Phone: HE[facility]fjaqiz[facility] 46[facility] Work Phone: 08-19-2020 10:53-0400 Body height 175.26 cm Concetta Leon ORDER PROCESSING CLERK-CLINICAL LAB SPECIALIST Work Phone: OL-Tqqgjzl-Hravnw 202 Work Phone: 08-19-2020 10:53-0400 Body mass index (BMI) [Ratio] 25.7 kg/m2 Concetta Leon ORDER PROCESSING CLERK-CLINICAL LAB SPECIALIST Work Phone: DC-Byvyghq-Doexgf 202 Work Phone: 08-19-2020 10:53-0400 Body surface area Derived from formula 1.95 m2 Concetta Leon ORDER PROCESSING CLERK-CLINICAL LAB SPECIALIST Work Phone: IL-Lfzhing-Vkzmow 202 Work Phone: 08-19-2020 10:53-0400 Body weight 78.93 kg Concetta Leon APRN-CLINICAL LAB SPECIALIST Work Phone: DV-Yghrxkw-Xoyrxx 202 Work Phone: 08-19-2020 10:53-0400 Diastolic blood pressure 69 mm[Hg] Concetta Leon APRN-CLINICAL LAB SPECIALIST Work Phone: PE-Ojhhgtc-Xqewnm 202 Work Phone: 08-19-2020 10:53-0400 Heart rate 105 /min Concetta Leon APRN-CLINICAL LAB SPECIALIST Work Phone: VL-Qldsttu-Yzgogw 202 Work Phone: 08-19-2020 10:53-0400 Systolic blood pressure 101 mm[Hg] Concetta Leon APRN-CLINICAL LAB SPECIALIST Work Phone: BQ-Uhxjdrx-Chjdaq 202 Work Phone: 07-29-2020 13:19-0400 Body height 175.26 cm Concetta Leon APRN-CLINICAL LAB SPECIALIST Work Phone: [facility] Work Phone: 07-29-2020 13:19-0400 Body mass index (BMI) [Ratio] 25.75 kg/m2 Concetta Leon APRN-CLINICAL LAB SPECIALIST Work Phone: ZA-Lihcwkn-TA [facility] Work Phone: 07-29-2020 13:19-0400 Body surface area Derived from formula 1.95 m2 Concetta Carolyn ORDER PROCESSING CLERK-CLINICAL LAB SPECIALIST Work Phone: JE-Nqoakje-YC [facility] Work Phone: 07-29-2020 13:19-0400 Body weight 79.1 kg Concetta Carolyn ORDER PROCESSING CLERK-CLINICAL LAB SPECIALIST Work Phone: ZP-Rszqhgd-RJ [facility] Work Phone: 07-29-2020 13:19-0400 Diastolic blood pressure 75 mm[Hg] Concetta Carolyn ORDER PROCESSING CLERK-CLINICAL LAB SPECIALIST Work Phone: CE-Kvznstr-CT [facility] Work Phone: 07-29-2020 13:19-0400 Heart rate 115 /min Concetta Carolyn ORDER PROCESSING CLERK-CLINICAL LAB SPECIALIST Work Phone: MV-Xkrboun-PE [facility] Work Phone: 07-29-2020 13:19-0400 Systolic blood pressure 126 mm[Hg] Concetta Carolyn ORDER PROCESSING CLERK-CLINICAL LAB SPECIALIST Work Phone: WZ-Zjjckyr-RC [facility] Work Phone: Encounters Encounter Date Encounter Type Care Provider Facility Start: 01-03-2025 ambulatory Kendra Herrera Facility:B Start: 01-03-2025 End: 01-07-2025 Evaluation and management of inpatient Simone Messer Facility:[facility] Start: 03-19-2024 ambulatory Darshan Quiroz Fac ility:[facility] Start: 03-19-2024 End: 03-22-2024 Evaluation and management of inpatient Darshan Quiroz Facility:[facility] Start: 03-09-2024 End: 03-10-2024 Emergency department patient visit Jose Taveras Facility:[facility] Start: 09-30-2022 End: 09-30-[address] Simone Messer Work Phone: [facility] Work Phone: Start: 09-30-2022 End: 09-30-[address] Simone Messer Work Phone: [facility] Work Phone: Start: 07-06-2022 Non-patient / Non-visit Dr. Dat Messer Work Phone: [facility] Start: 07-05-2022 Non-patient / Non-visit Dr. Dat Messer Work Phone: [facility] Start: 07-05-2022 Non-patient / Non-visit Dr. Dat Messer Work Phone: [facility] Start: 07-04-2022 Non-patient / Non-visit Dr. Dat Messer Work Phone: [facility] Start: 07-04-2022 End: 07-06-2022 Evaluation and management of inpatient [facility]-Intensive Care Unit Start: 09-24-2021 [facility] ORDER PROCESSING CLERK.CLINICAL LAB SPECIALIST Work Phone: [facility] Comment on above: Essential hypertensi on (Primary Dx); Renal mass Start: 09-20-2021 [facility] ORDER PROCESSING CLERK.CLINICAL LAB SPECIALIST Work Phone: [facility] Comment on above: Stage 3 chronic kidn ey disease, unspecified whether stage 3a or 3b CKD (HCC) (Primary Dx); Muscle weakness (generalized) Start: 09-15-2021 [facility] ORDER PROCESSING CLERK.CLINICAL LAB SPECIALIST Work Phone: [facility] Comment on above: Calculus of gallblad blanca with acute on chronic cholecystitis without obstruction (Primary Dx); Diarrhea, unspecified type Start: 09-13-2021 [facility] ORDER PROCESSING CLERK.CLINICAL LAB SPECIALIST Work Phone: [facility] Comment on above: Essential hypertensi on (Primary Dx); Heartburn Start: 09-10-2021 [facility] summerN.CLINICAL LAB SPECIALIST Work Phone: [facility] Comment on above: Diabetes mellitus wi thout complication (HCC) (Primary Dx); Hyperlipidemia, unspecified hyperlipidemia type Start: 08-16-2021 [facility]CLINICAL LAB SPECIALIST Work Phone: [facility] Comment on above: Stage 3 chronic kidn ey disease, unspecified whether stage 3a or 3b CKD (HCC) (Primary Dx); Constipation, unspecified constipation type Start: 08-11-2021 [facility] summerN.CLINICAL LAB SPECIALIST Work Phone: [facility] Comment on above: Diabetes mellitus wi thout complication (HCC) (Primary Dx); Hyperlipidemia, unspecified hyperlipidemia type Start: 07-28-2021 [facility] ORDER PROCESSING CLERK.CLINICAL LAB SPECIALIST Work Phone: [facility] Comment on above: Diabetes mellitus wi thout complication (HCC) (Primary Dx); Constipation, unspecified constipation type Start: 07-22-2021 [facility] summerN.CLINICAL LAB SPECIALIST Work Phone: [facility] Comment on above: Essential hypertensi on (Primary Dx); Rhinorrhea Start: 06-24-2021 [facility] ORDER PROCESSING CLERK.CLINICAL LAB SPECIALIST Work Phone: [facility] Comment on above: Essential hypertensi on (Primary Dx); Rhinorrhea Start: 06-21-2021 [facility] ORDER PROCESSING CLERK.CLINICAL LAB SPECIALIST Work Phone: [facility] Comment on above: Renal mass (Primary Dx); Muscle weakness (generalized) Start: 06-16-2021 [facility] summerN.CLINICAL LAB SPECIALIST Work Phone: [facility] Comment on above: Stage 3 chronic kidn ey disease, unspecified whether stage 3a or 3b CKD (HCC) (Primary Dx); Constipation, unspecified constipation type Start: 06-04-2021 [facility] Work Phone: [facility] Comment on above: Hypothyroidism, unsp ecified type (Primary Dx); Schizoaffective disorder, bipolar type (HCC) Start: 05-26-2021 ambulatory [facility] ORDER PROCESSING CLERK.CLINICAL LAB SPECIALIST Work Phone: [facility] Comment on above: Essential hypertensi on (Primary Dx); Weight loss Start: 05-14-2021 ambulatory [facility] ORDER PROCESSING CLERK.CLINICAL LAB SPECIALIST Work Phone: [facility] Comment on above: Renal mass (Primary Dx); Muscle weakness (generalized) Start: 05-10-2021 Office outpatient vi sit 15 minutes Emad H Billydionisiojustin Work Phone: [facility] 46[facility] Work Phone: Start: 04-29-2021 Chart Update Concetta MONTOYA RN-CLINICAL LAB SPECIALIST Work Phone: [facility] Work Phone: Start: 09-16-2020 AUDIT Concetta MONTOYA RN-CLINICAL LAB SPECIALIST Work Phone: [facility]pgnefi[facility] 4600 Work Phone: Start: 09-04-2020 Chart Update Concetta MONTOYA RN-CLINICAL LAB SPECIALIST Work Phone: TI-Rwbumaz-Plikot 202 Work Phone: Start: 08-19-2020 FUV, Provider: Concetta Leon, Status: Pen, Time: 11:00 AM Concetta Leon ORDER PROCESSING CLERK-CLINICAL LAB SPECIALIST Work Phone: WC[facility]jbbty[facility] 4600 Work Phone: Start: 08-17-2020 Chart Update Concetta MONTOYA RN-CLINICAL LAB SPECIALIST Work Phone: GB[facility]Rxfkrji-[facility]acqqed[facility] 4600 Work Phone: Start: 08-12-2020 AUDIT Concetta MONTOYA RN-CLINICAL LAB SPECIALIST Work Phone: [facility]us[facility] Work Phone: Start: 07-22-2020 End: 07-22-2020 Subsequent hospital visit by physician [facility] Work Phone: Radiology Comment on above: [...] panel - S jose or Plasma Xr [place] Work Phone: Start: 09-12-2017 Colonoscopy [employer] [facility] ORDER PROCESSING CLERK.CLINICAL LAB SPECIALIST Work Phone: Urine culture Dr. Simone Hylton en Work Phone: Plan of Treatment Date Care Activity Detail Author Start: 09-13-2027 Colonoscopy COLONOSCOPY [facility] Start: 09-13-2027 COLORECTAL CANCER SCREENING COLORECTAL CANCER SCREENING [facility] Start: 09-13-2027 Screening for malignant neoplasm of colon [facility] Start: 01-16-2025 Lipid panel Lipid Screening [facility] Start: 11-05-2023 Covid-19 Vaccine ( season) Covid-19 Vaccine ( season) [facility] Start: 11-05-2023 Influenza vaccination Influenza Vaccine (#1) [facility] Start: 07-16-2023 RSV Vaccine (1 - 1-dose 75+ series) RSV Vaccine (1 - 1-dose 75+ series) [facility] Start: 03-06-2023 Advance Directive Discussion Advance Directive Discussion [facility] Start: 01-16-2023 DIABETES SCREEN DIABETES SCREEN [facility] Start: 01-16-2023 Diabetes Screening Diabetes Screening [facility] Start: 07-06-2022 Patient discharge [facility] Start: 07-05-2022 Care planning and problem solving actions [facility] Start: 07-05-2022 Blood chemistry [facility] Start: 07-04-2022 Following clinical pathway protocol [facility] Start: 07-04-2022 Verification routine [facility] Start: 07-04-2022 Vitamin D, 25-hydroxy measurement [facility] Start: 07-04-2022 Assessment of risk of venous thromboembolism [facility] Start: 07-04-2022 Cardiac monitoring [facility] Start: 07-04-2022 Catheterization of vein [facility] Start: 07-04-2022 Consultation [facility] Start: 07-04-2022 Continuous pulse oximetry [facility] Start: 07-04-2022 Enteric precautions [facility] Start: 07-04-2022 Insertion of catheter into peripheral vein [facility] Start: 07-04-2022 Measuring intake and output [facility] Start: 07-04-2022 Notification of physician [facility] [facility] Start[facility] 07-04-[facility]22 Oxygen therapy [facility] Start: 07-04-2022 Providing care according to standard [facility] Start: 07-04-2022 Referral to occupational therapist [facility] Start: 07-04-2022 Referral to service [facility] Start: 07-04-2022 Vital signs measurements [facility] Start: 07-04-2022 [facility] Start: 07-04-2022 Computed tomography of abdomen and pelvis with intravenous contrast Abdomen/Pelvis W IV Cont ONLY [facility] Start: 07-04-2022 CT Abdomen and Pelvis W contrast IV [facility] Start: 07-04-2022 Admission procedure [facility] Start: 07-04-2022 End: 07-04-2022 [facility] Start: 07-04-2022 End: 07-04-2022 Blood culture [facility] Start: 07-04-2022 Inhalation therapy procedure [facility] Start: 07-04-2022 [facility] Start: 11-10-2021 FUV, Provider: Concetta Leon, Status: Pen, Time: 11:00 AM FUV, Provider: Concetta Leon, Status: Pen, Time: 11:00 AM RC-Yofecdy-Feuuzcx [facility] [address] Work Phone: Start: 11-04-2021 Influenza vaccination [facility] Start: 07-22-2021 BP CONTROLLED (<130/80) BP CONTROLLED (<130/80) [facility] in Start: 05-10-2021 FUV, Provider: Concetta Leon, Status: Pen, Time: 2:20 PM FUV, Provider: Concetta Leon, Status: Pen, Time: 2:20 PM [facility]: Start: 03-22-2021 FUV, Provider: Concetta Leon, Status: Pen, Time: 11:00 AM FUV, Provider: Concetta Leon, Status: Pen, Time: 11:00 AM UQ-Hhqwcmm-Dzdrly 202 Work Phone: Start: 03-06-2021 ADVANCE DIRECTIVE DISCUSSION ADVANCE DIRECTIVE DISCUSSION [facility] Start: 02-06-2021 ANNUAL PCP TEAM CHRONIC DISEASE VISIT ANNUAL PCP TEAM CHRONIC DISEASE VISIT [facility] Start: 11-04-2020 Influenza vaccination INFLUENZA (#1) [facility] Start: 08-19-2020 FUV, Provider: Concetta Leno, Status: Pen, Time: 11:00 AM FUV, Provider: Concetta Leon, Status: Pen, Time: 11:00 AM [facility] Work Phone: Start: 2013 Pneumococcal Vaccine: 65+ (1 of 1 - PCV) Pneumococcal Vaccine: 65+ (1 of 1 - PCV) [facility] Start: 2013 PNEUMOCOCCAL: 65+ (1 - PCV) PNEUMOCOCCAL: 65+ (1 - PCV) [facility] Start: 2013 PNEUMOVAX AGE 65 AND OVER WITH 5YR LOOKBACK (#1) PNEUMOVAX AGE 65 AND OVER WITH 5YR LOOKBACK (#1) [facility] Start: 1998 SHINGRIX VACCINE (1 of 2) SHINGRIX VACCINE (1 of 2) [facility] Start: 1993 COLOGUARD (FIT-DNA) COLOGUARD (FIT-DNA) [facility] Start: [address] COLONOGRAPHY [facility] Start: 1993 FECAL OCCULT BLOOD FECAL OCCULT BLOOD [facility] Start: 1993 Screening for malignant neoplasm of colon [facility] Start: 1993 SIGMOIDOSCOPY SIGMOIDOSCOPY [facility] Start: 07-16-1983 LIPID SCREEN LIPID SCREEN [facility] Start: 07-16-1967 Urine microalbumin profile [facility] Start: 1966 Anxiety Screening Anxiety Screening [facility] Start: 1966 BP CONTROLLED (<130/80) BP CONTROLLED (<130/80) [facility] Start: 1966 Depression Screening Depression Screening [facility] Start: 1966 HEPATITIS C SCREENING HEPATITIS C SCREENING [facility] Start: 1966 Hepatitis C screening Hepatitis C Screening [facility] Start: 1960 Adult depression screening assessment DEPRESSION SCREENING [facility] Start: 1953 COVID-19 VACCINE (#1) COVID-19 VACCINE (#1) [facility] Start: 1953 COVID-19 VACCINE (1) COVID-19 VACCINE (1) [facility] Start: 01-15-1949 COVID-19 VACCINE (#1) COVID-19 VACCINE (#1) [facility] Anion gap measurement [facility] Bacteria identified in Blood by Culture Blood Culture [facility] Bacteria identified in Blood by Culture Blood Culture [facility] Bacteria identified in Urine by Culture Urine Culture [facility] BUN/Creatinine ratio [facility] Calcium [Mass/volume ] in Serum or Plasma [facility] Carbon dioxide, tota l [Moles/volume] in Serum or Plasma [facility] Chloride [Moles/volu me] in Serum or Plasma [facility] Clostridioides diffi cile DNA [Presence] in Unspecified specimen by AARTI with probe detection [facility] Creatinine [Moles/vo lume] in Serum or Plasma [facility] Gastrointestinal pat hogens panel - Stool by AARTI with probe detection [facility] Glucose [Mass/volume ] in Serum or Plasma [facility] Hematocrit [Volume Fraction] of Blood [facility] Hemoglobin [Mass/vol ume] in Blood [facility] Hemoglobin A1c/Hemoglobin.total in Blood [facility] Leukocytes [#/volume ] in Blood [facility] Mean corpuscular hem oglobin concentration determination [facility] Mean corpuscular hem oglobin determination [facility] Measurement of renal function [facility] Neutrophil count [facility] Neutrophil percent differential count [facility] Patient Education ED Diarrhea, U nknown Cause [facility] Work Phone: Patient referral [facility] Work Phone: Platelets [#/volume] in Blood [facility] Potassium [Moles/vol ume] in Serum or Plasma [facility] Red blood cell count [facility] Red cell distributio n width determination [facility] Sodium [Moles/volume ] in Serum or Plasma [facility] Urea nitrogen [Mass/ volume] in Serum or Plasma [facility] Immunizations Immunization Date Immunization Notes Care Provider Fa cility 07-04-2022 tetanus toxoid, redu shivani diphtheria toxoid, and acellular pertussis vaccine, adsorbed [facility] Payers Date Payer Category Payer Self-pay [id number] 2024 Unknown [id number] 2024 Unknown [id number] 2016 Medicaid [facility] MEDICAID MYC ARE [facility] MEDICAID [id number] 2016-Present [phone] [address] [place] [address] Medicaid [id number] 2016 Medicare [id number] 2016 Medicare [facility] MEDICARE [employer]C ARE [facility] MEDICARE [id number] 2016-Present [phone] [address] [place] [address] Medicare [id number] Unknown Unknown VA AUTH REQUIR ED SEE NOTE [id number] Unknown [id number] Unknown [id number] Unknown [id number] Unknown [id number] Unknown [id number] Unknown [id number] Unknown [id number] [id number] Unknown [id number] Unknown [id number] [id number] Unknown [id number] [id number] Unknown [id number] [id number] Unknown [id number] Social History Date Type Detail Facility Start: 09-27-2017 End: 02-08-2020 No alcohol use No alcohol use [facility] Work Phone: Start: 04-12-2010 End: 09-05-2017 Tobacco smoking status NHIS Never smoked tobacco [facility] Work Phone: Start: 04-12-2010 End: 09-05-2017 Tobacco use and exposure Smokeless tobacco non-user [facility] Work Phone: Start: 09-27-2017 Alcohol intake Current drinke r of alcohol (finding) [facility] Start: 04-12-2010 History SDOH Alcohol Comment no use in 27 yearas [facility] Start: 1950 Sex Assigned At Not on file [facility] Start: 06-22-2020 End: 04-26-2021 Exposure to SARS-CoV-2 (event) Not sure [facility] Start: 07-04-2022 End: 07-04-2022 Tobacco smoking status NHIS Unknown if ever smoked [facility] Start: 07-26-2019 [facility] Start: [facility]-2020 [facility] Start: 07-26-2019 [facility]smoker [facility] Start: 1950 Sex Assigned At Male [facility] Start: 09-27-2017 End: 02-08-2020 Tobacco use panel [facility] National Score (1-100), lower number is lower risk Not on file [facility] Goals Date Patient Goal Desired Activity /State Functional Status Date Assessment Result Facility 07-06-2022 Functional status Ambulates;Bathroom Priv ilege [facility] Work Phone: Mental Status Date Assessment Result Facility 07-06-2022 Cognitive function Voice/Name [facility] Work Phone: Clinical Notes 07-22-2020 to 01-07-2025 Note Date & Type Note Facility 01-07-2025 Note [facility] Medical Records Department [address] [place] [address] Discharge Summary 01/07/25 1444 MR#: [id number] Acct: [id number] Name: ALLAN LARA Rep #: [id number] : 1950 74 From: Kendra Herrera MD PCP: Dr. Simone Messer MD Status:ADM IN [place] [facility] Providers Date of Admission: 01/03/25 Date of [...] bisacodyl 10 mg rectal suppository 10 mg MS DAILY #0 ea 01/07/25 sennosides 8.6 mg-docusate sodium 50 mg tablet (Stimulant Laxative Plus) 2 tab PO BID #0 tabs 01/07/25 Hospital Course Summary of Care Provided Minutes Spent on Discharge: 32 Hospital Course: 74-year-old male with a history of hypertension, hypothyroidism, BPH, anxiety, GERD presented to [facility] ED 01/03/2025 due to chest pain and vomiting. Has history of dementia and had difficulty expressing himself but it was determined he had chest pain that developed in the left mid anterior aspect chest and [facility]entiary noted several episodes of emesis with unknown [...] hospitalist contacted for admission. Patient admitted to [facility] on IV Zosyn. Patient evaluated by speech [...] or acute complain (more content not included)... [facility] 03-22-2024 Note [facility] Medical Records Department [address] [place] [address] Discharge Summary 03/22/24 1339 MR#: [id number] Acct: [id number] Name: ALLAN LARA Rep #: [id number] : 1950 73 From: Darshan Quiroz MD PCP: Dr. Simone Messer MD Status:ADM IN [facility] Prov[facility] Date of Admission: 03/19/24 Primary Care [...] a 73 M who [facility] the [facility] with shortness of breath and hypoxia. He [...] with aspiration pneumonia???73-year-old male presents from the [facility]itent[facility] with altered mental status and lethargy. Sepsis [...] plan to discharge today back to the penitentiary to continue with rehab as well as [...] or Extremities Neuro (more content not included)... [facility] 07-06-2022 Discharge summary Note Date/Time July 06, 2022 2:12pm [facility] Medical Records Department [address] [place] [address] Discharge Summary 07/06/22 1411 MR#: [id number] Acct: [id number] Name: ALLAN LARA Rep #:[id number] : 1950 71 From: Peyton Crawford MD PCP: Dr. Simone Messer MD Status:ADM I N Location: [place] [address] Providers Date of Admission: 07/04/22 Date of Discharge: 07/06/22 Primary Care Physician: Dr. Simone Messer MD Consultations 07/04/22 05:34 Consult: Health Plan Specialist / Pulmonary Medicine Routine Consulting Provider: Donald [...] lovenox DIspositionL transfer out of ICU to [facility] surg Medications at Discharge Home [...] was [facility] to the ED [facility] on 07/04/2022 with a complaint of mechanical [...] were negative. [facility]. He was discharged on [...] 78.6 H, Lymph % (Auto) 12.3 L, Marin % (Auto) 6.5, Eos % (Auto) 1.1, [...] Self Care Charges/Coding Visit Charges Inpatient E&M: 46131 Disch Hosp >30min 07/06/22 1518 <Electronically signed by Peyton Crawford MD> Cosigner Signature (if applicable): CC: Dr. Peyton Crawford MD; Dr. Simone Messer MD~ Signed [facility] Work Phone: 1(313) 121-529605-03-[address] Crawford [facility] July 06, 2022 2:11pm Note Date/Time July 06, 2022 2:11pm [facility] Medical Records Department [address] [place] [address] Transfer to [facility] MR#: [id number] Acct: [id number] Name: ALLAN LARA Rep #:[id number] : 1950 71 From: Peyton Crawford MD PCP: Dr. Simone Messer MD Status:ADM I N Certification of patient admission REQUIRED AT TIME OF ADMISSION. I CERTIFY THAT POST-HOSPITAL F SERVICES ARE REQUIRED TO BE GIVEN ON AN IN-PATIENT BASIS BECAUSE OF THE ABOVE NAMED PATIENT'S NEED FOR CUSTODIAL CARE ON A CONTINUING BASIS FOR THE CONDITION(S) FOR WHICH HE/SHE WAS RECEIVING IN-PATIENT HOSPITAL SERVICES PRIOR TO HIS/HER TRANSFER TO THE [facility]. 07/06/22 1411<Electronically signed by Peyton Crawford MD> [...] Self Care Charges/Coding Visit Charges Inpatient E&M: 65014 Disch Hosp >30min 07/06/22 1411 <Electronically signed by Peyton Crawford MD> Cosigner Signature (if applicable): CC: Dr. Donald Valdes MD; Dr. Sreekanth Verma MD; Dr. Simone Messer MD ~ [facility] Work Phone: 1(541) 975-489805-02-[address] Crawford [facility] July 05, 2022 3:43pm Note Date/Time July 05, 2022 12:22p [facility] Medical Records Department [address] [place] [address] Progress Note 07/05/22 1215 MR#: [id number] Acct: [id number] Name: ALLAN LARA Rep #:[id number] : 1950 71 From: Peyton Crawford MD [...] 81.2 H, Lymph % (Auto) 8.8 L, Marin % (Auto) 8.0, Eos % (Auto) 0.7, [...] med surg Charges/Coding Visit Charges Inpatient E&M: 77421 Subs Hosp L2 07/05/22 3399 <Electronically signed by Peyton Crawford MD> Peyton Crawford MD Cosigner Signature (if applicable): CC: ~ Signed [facility] Work Phone: 1(759) 859-293705-02-[address] Levine [facility] July 05, 2022 7:56am Note Date/Time July 05, 2022 6:53am [facility] Medical Records Department [address] [place] [address] Progress Note - Health Plan Specialist 07/05/22 0650 MR#: [id number] Acct: [id number] Name: ALLAN LARA Rep #:[id number] : 1950 71 From: Jerald Levine DO [...] medicationsas indicated. This note was generated with TripOvationation software. It may contain incorrectwords, spelling, and [...] 81.2 H, Lymph % (Auto) 8.8 L, Marin % (Auto) 8.0, Eos % (Auto) 0.7, [...] flat affect Charges/Coding Visit Charges Inpatient E&M: 51717 Subs Hosp L2 07/05/22 0756 <Electronically signed by Jerald Levine DO> Cosigner Signature (if applicable): CC: ~ Signed [facility] Work Phone: 1(412) 206-687405-02-[address] Crawford [facility] July 05, 2022 7:22am Note Date/Time July 04, 2022 10:27a m [facility] Medical Records Department [address] [place] [address] Progress Note 07/04/22 1024 MR#: [id number] Acct: [id number] Name: ALLAN LARA Rep #:[id number] : 1950 71 From: Peyton Crawford MD [...] 91.2 H, Lymph % (Auto) 3.6 L, Marin % (Auto) 3.7, Eos % (Auto) 0.0, [...] Clarity Clear, Urine pH 5.0, Ur Specific Benedicta 1.015, Urine Protein 15 H, Urine Glucose [...] lovenox # Charges/Coding Visit Charges Inpatient E&M: 67180 Subs Hosp L2 07/05/22721 <Electronically signed by Peyton Crawford MD> Peyton Crawford MD Cosigner Signature (if applicable): CC: ~ Signed [facility] Work Phone: 1(929) 450-702005-02-[address] Levine [facility] July 05, 2022 6:50am Note Date/Time July 04, 2022 7:17am [facility] Medical Records Department [address] [place] [address] Consultation - Health Plan Specialist 07/04/22 0708 MR#: [id number] Acct: [id number] Name: ALLAN LARA Rep #:[id number] : 1950 71 From: Jerald Levine DO [...] for now. This note was generated with Owlin dictation software. It may contain incorrectwords, spelling, [...] and hypertension. He currently resides at [facility] [place]. He was also recently diagnosed with [...] medical intensive care unit for further management. [facility] Medical History (Updated 07/04/22 @ 05:58 by [...] 91.2 H, Lymph % (Auto) 3.6 L, Marin % (Auto) 3.7, Eos % (Auto) 0.0, [...] Clarity Clear, Urine pH 5.0, Ur Specific Benedicta 1.015, Urine Protein 15 H, Urine Glucose [...] EDT , Charges/Coding Visit Charges Inpatient E&M: 02991 Init Hosp L3 07/05/22 0650 <Electronically signed by Jerald Levine DO> Cosigner Signature (if applicable): CC: Dr. Donald Valdes MD; Dr. Sreekanth Verma MD; Dr. Simone Messer MD~ Signed [facility] Work Phone: 1(964) 556-583205-01-[address] [facility] July 04, 2022 8:50am Note Date/Time July 04, 2022 3:00am [facility] Medical Records Department [address] [place] [address] Emergency Department Summary 07/04/22 MR#: [id number] Acct: [id number] Name: ALLAN LARA Rep #:[id number] : 1950 71 From: Mati Shaikh MD [...] Presents tonight after he fell in the penitentiary causing a laceration on his left eyebrow. [...] girdle intact. Moving all 4 extremities. Normal leather sponger strength. Normal dorsi plantarflexion. Normal range of [...] all extremities and no focal motor deficits Jasper Coma Scale: document GCS findings Spontaneous Obeys [...] making narrative: 71-year-old demented gentleman from a penitentiary and presents with a fall witha left [...] 91.2 H Lymph % (Auto) 3.6 L Marin % (Auto) 3.7 Eos % (Auto) 0.0 [...] Color Urine Clarity Urine pH Ur Specific Benedicta Urine Protein Urine Glucose (UA) Urine Ketones [...] (Auto) Neut % (Auto) Lymph % (Auto) Marin % (Auto) Eos % (Auto) Baso % [...] Clarity Clear Urine pH 5.0 Ur Specific Benedicta 1.015 Urine Protein 15 H Urine Glucose [...] rate of 122. No acute signs of ND or ischemia. No acute signs of dysrhythmia. Procedures Lacerations Left eyebrow 2 cm laceration repair:: Length: 1 in Depth: Sub Q Shape: Linear Prep: Shure-Clens Laceration repair: Lidocaine and Skin sutures Number of Sutures/Catron: 3 Suture Information: Ethilon and 5-0 Comment: Left eyebrow laceration. Approximately 1 inch in length. Linear. Locally anesthetized with lidocaine. Cleaned with Shur-Clens. Washed with saline. Explored. Closed using 3 simple interrupted 5-0 Ethilon sutures. Proper hemostasis wound closure is obtained. Critical Care Time Critical Care Time: Yes Critical care time (excluding procedures): 30-74 minutes, Including time spent:,Discussing w/Patient &/or Family/Fleet Director, Discussing w/Consultants, ArrangingAdmission or Transfer, Performing Direct Patient Care at Bedside and - (34 min) Discharge Plan Dx/Rx/DC Orders Clinical Impression: Fall, Head injury, Laceration of eyebrow, left, Acute hypotension, Leukocytosis, Diarrhea, COVID, Sepsis associated hypotension, Acute kidney injury Disposition Disposition: Acute Care Hospital [facility] What to do if you have Problems For any increased pain, shortness of breath, bleeding, nausea or vomiting, chestpain, or any unexpected problems, contact your Primary Care Provider. Call [facility] ([phone]) or report to the closest Emergency Room. Call 911 if necessary. 07/04/22 0850 <Electronically signed by Mati Shaikh MD> Cosigner Signature (if applicable): CC: Dr. Simone Messer MD ~ Signed [facility] Work Phone: 1(179) 995-445905-01-2023 History and physical note Author Dr. Verma [facility] July 04, 2022 6:46am Note Date/Time July 04, 2022 4:37am [facility] Medical Records Department [address] [place] [address] H&P Exam - Hospitalist 07/04/22 0436 MR#: [id number] Acct: [id number] Name: ALLAN LARA Rep #:[id number] : 1950 71 From: Sreekanth Verma MD PCP: Dr. Simone Messer MD Status:ADM I N Location: ICU ICU01-1 HPI - General General Date of Admission: 07/04/22 Date of Service: 07/04/22 Chief Complaint: Fall HPI Narrative ALLAN LARA, is a 71 M with a significant history of Schizoaffective disorder; delusional disorder; hypothyroidism; hypertension; and neoplasm of right kidney who presents from [facility] with a fall. Also patient sustained [...] doctor who discussed the case primarily with [facility]. [facility] Medical History (Updated 07/04/22 @ 05:58 by [...] 91.2 H, Lymph % (Auto) 3.6 L, Marin % (Auto) 3.7, Eos % (Auto) 0.0, [...] Clarity Clear, Urine pH 5.0, Ur Specific Benedicta 1.015, Urine Protein 15 H, Urine Glucose [...] 3:32 EDT Reading Location ID and State: [address] [place] [address] Tel , Service support , Assessment & [...] Lovenox ordered. Charges/Coding Visit Charges Inpatient E&M: 09017 Init Hosp L3 07/04/22 0602 <Electronically signed [...] MD; Dr. Simone Messer MD ~* Signed [facility] Work Phone: 1(226) 496-635607-22-2022 NoteHNO ID: [id number] Author: Kirstin Escalante APRN.CLINICAL LAB SPECIALIST Service: ? Author Type: Nurse Practitioner Type: [...] F/u with urology as scheduled Kirstin Escalante APRN.[facility]NP[facility]07-22-2022 History of Present illness Narrative* Kirstin [...] scheduled Kirstin Escalante APRN.CNP [facility]* Diagnosis Stage 3 chronic kidney disease, unspecified whether stage 3a or 3b CKD (HCC)- Primary Muscle weakness (generalized) documented in this encounter [facility]07-18-2022 NoteHNO ID: [id number] Author: Kirstin Escalante APRN.CLINICAL LAB SPECIALIST Service: ? Author Type: Nurse Practitioner Type: [...] DM II (diabetes mellitus, type II), controlled ([facility]) - Hypertension - Hypothyroidism - Schizophrenia, schizo-affective ([facility]) - Vitamin B12 deficiency PAST SURGICAL HISTORY [...] meds 2. Muscle weakness PT/OT Kirstin Escalante APRN.[facility]AZ[facility] Hospital07-18-2022 History of Present illness Narrative* Kirstin [...] Cortisone Rash Vitals and Medications reviewed in [facility] system. PHYSICAL EXAMINATION: General appearance: [...] PT/OT Kirstin Escalante APRN.BOAZ [facility]22 NoteHNO ID: [id number] Author: Kirstin Escalante APRN.CNP Service: ? Author Type: Nurse Practitioner Type: Progress Notes Filed: 09/20/2021 2:47 PM Note Text: Allan Lara is a 71 year old male seen today per Nursing request. R had c/o acute abd geiger, n/v and diarrhea. Sent to [facility] ED, sent back with zofran [...] DM II (diabetes mellitus, type II), controlled ([facility]) - Hypertension - Hypothyroidism - Schizophrenia, schizo-affective [...] Cortisone Rash Vitals and Medications reviewed in [facility] system. PHYSICAL EXAMINATION: General appearance: [...] ICD9: 787.91, ICD10: R19.7 Resolved Summer TABATHA Escalante.[facility]07-13-2022 NoteED Nursing Discharge Summary Entered On: 09/15/2021 13:45 EDT Performed On: 09/15/2021 13:40 EDT by Giovana Glover RN NC Information [id number] ED IV's : Discontinue ED IV Site Assessment : Yes, Completed in IVie ED Vitals Completed : Yes ED Final Assessment Completed : Yes ED Progress Note Completed : Yes Complete all PRN/Pain response forms? : N/A ED Disassociate Patient from Monitor : N/A Updated Depart Time : Yes ED Belongings sent w patient [id number] : Not applicable Giovana Glover RN - 09/15/2021 13:44 EDT Education Instructions given to : Patient, Other: Nurse at [facility] [employer] Methodology : Explanation, Printed Material Barriers [...] Giovana Glover RN - 09/15/2021 13:44 EDT [facility]07-13-2022 History of Present illness Narrative* Kirstin Sylviagarretalcon, TABATHA.CLINICAL LAB SPECIALIST - 09/15/2021 2:39 PM EDT Allan Lara is a 71 year old male seen today per Nursing request. R had c/o acute abd geiger, n/v and diarrhea. Sent to [facility] ED, sent back with zofran [...] Resolved Kirstin Escalante APRN.BOAZ documented [facility] encounter[facility]07-[facility]22 NoteHNO ID: [id number] Author: Kirstin Escalante APRN.BOAZ Service: ? Author [...] Cortisone Rash Vitals and Medications reviewed in [facility] system. PHYSICAL EXAMINATION: General appearance: [...] Heartburn Daily PPI Prn mylanta Kirstin Escalante APRN.BOAZBet[facility]07-11-2022 History of Present illness Narrative* Kirstin Escalante APRN.BOAZ - 09/13/2021 2:55 PM EDT Allan [...] mylanta Kirstin Escalante APRN.BOAZ documented in this encounterGalion Hospital07-08-2022 NoteHNO ID: [id number] Author: Kirstin Escalante APRN.CNP Service: ? Author [...] F/u with urology as scheduled Kirstin Escalante APRN.CNPBethesda North Hospital07-08-2022 History of Present illness Narrative* Kirstin [...] F/u with urology as scheduled Kirstin Escalante APRN.CLINICAL LAB SPECIALIST documented in this encounterGalion Hospital06-14-2022 Evaluation note* Diagnosis Stage 3 chronic kidney disease, unspecified whether stage 3a or 3b CKD (HCC)- Primary Constipation, unspecified constipation type documented [facility]22 NoteHNO ID: [id number] Author: Kirstin Escalante APRN.BOAZ Service: ? Author [...] DM II (diabetes mellitus, type II), controlled ([facility]) - Hypertension - Hypothyroidism - Schizophrenia, schizo-affective [...] Cortisone Rash Vitals and Medications reviewed in [facility] system. PHYSICAL EXAMINATION: General appearance: [...] PRN With current regimen current regimen summergarret ORDER PROCESSING CLERK.[facility]06-13-2022 History of Present illness Narrative* summergarret, ORDER PROCESSING CLERK.CLINICAL LAB SPECIALIST - 08/16/2021 3:26 PM EDT Allan Lara [...] Cortisone Rash Vitals and Medications reviewed in [facility] system. PHYSICAL EXAMINATION: General appearance: [...] regimen Kirstin Escalante APRN.BOAZ documented in this encounterGalion Hospital06-08-2022 NoteHNO ID: [id number] Author: Kirstin Escalante APRN.BOAZ Service: ? Author [...] Cortisone Rash Vitals and Medications reviewed in [facility] system. PHYSICAL EXAMINATION: General appearance: [...] unspecified whether stage 3a or 3b CKD ([facility]) - ICD9: 585.3, ICD10: N18.30 (primary diagnosis) Monitor bmp avoid nephrotoxic meds 2. Renal Mass F/u with urology as scheduled Summer TABATHA Escalante.[facility]06-08-2022 History of Present illness Narrative* Kirstin Escalante APRN.CLINICAL LAB SPECIALIST - 08/11/2021 9:34 PM EDT Allan Lara [...] MEDICAL HISTORY Diagnosis Date Bipolar 1 disorder ([facility]) Depression DM II (diabetes mellitus, type II), controlled ([facility]) Hypertension Hypothyroidism Schizophrenia, schizo-affective (HCC) Vitamin B12 [...] Cortisone Rash Vitals and Medications reviewed in [facility] system. PHYSICAL EXAMINATION: General appearance: [...] scheduled Kirstin Escalante APRN.CNP documented in this encounterGalion Hospital05-25-2022 NoteHNO ID: [id number] Author: Kirstin Escalante APRN.CNP Service: ? Author [...] Constipation Stable on current regimen Kirstin Escalante APRN.BOAZBethesda North Hospital05-25-2022 History of Present illness Narrative* Kirstin [...] regimen Kirstin Escalante APRN.CNP documented in this encounterGalion Hospital05-19-2022 NoteHNO ID: [id number] Author: Kirstin Escalante APRN.CNP Service: ? Author [...] 10 mg daily Negative Covid swab summerane, ORDER PROCESSING CLERK.[facility]05-19-2022 History of Present illness Narrative* Kirstin Escalante APRN.CLINICAL LAB SPECIALIST - 07/22/2021 7:48 PM EDT Allan Lara [...] Cortisone Rash Vitals and Medications reviewed in [facility] system. PHYSICAL EXAMINATION: General appearance: [...] swab Kirstin Escalante APRN.CNP documented in this encounterGalion Hospital05-04-2022 NoteHNO ID: [id number] Author: Kirstin Escalante APRN.CNP Service: ? Author [...] DM II (diabetes mellitus, type II), controlled ([facility]) - Hypertension - Hypothyroidism - Schizophrenia, schizo-affective [...] 3 Bmp avoid nephrotoxic meds Kirstin Escalante APRN.CNPBethesda North Hospital04-21-2022 NoteHNO ID: [id number] Author: Kirstin Escalante APRN.CLINICAL LAB SPECIALIST Service: ? Author Type: Nurse Practitioner Type: [...] Cortisone Rash Vitals and Medications reviewed in [facility] system. PHYSICAL EXAMINATION: General appearance: [...] 2. Rhinorrhea -Claritin 10 mg daily summergarret, ORDER PROCESSING CLERK.CNPBethesda North Hospital04-21-2022 History of Present illness Narrative* summer.CLINICAL LAB SPECIALIST - 06/24/2021 2:33 PM EDT Allan Lara [...] Cortisone Rash Vitals and Medications reviewed in [facility] system. PHYSICAL EXAMINATION: General appearance: [...] Rhinorrhea -Claritin 10 mg daily Kirstin Escalante APRN.CLINICAL LAB SPECIALIST documented in this encounterGalion Hospital04-18-2022 NoteHNO ID: [id number] Author: Kirstin Escalante APRN.BOAZ Service: ? Author [...] Cortisone Rash Vitals and Medications reviewed in [facility] system. PHYSICAL EXAMINATION: General appearance: [...] nephrology 2. Generalized weakness -PT/OT Kirstin Escalante APRN.[facility]04-18-2022 History of Present illness Narrative* Kirstin Escalante APRN.CLINICAL LAB SPECIALIST - 06/21/2021 10:03 AM EDT Allan Lara [...] Cortisone Rash Vitals and Medications reviewed in [facility] system. PHYSICAL EXAMINATION: General appearance: [...] nephrology 2. Generalized weakness -PT/OT Kirstin Escalante APRN.CLINICAL LAB SPECIALIST documented in this encounterGalion Hospital04-14-2022 NoteHNO ID: [id number] Author: Kirstin Escalante APRN.BOAZ Service: ? Author [...] Cortisone Rash Vitals and Medications reviewed in [facility] system. PHYSICAL EXAMINATION: General appearance: [...] K59.00 Stable on current regimen Kirstin Escalante APRN.CNPBethesda North Hospital04-13-2022 History of Present illness Narrative* Kirstin [...] regimen Kirstin Escalante APRN.CNP documented in this encounterGalion Hospital04-08-2022 NoteHNO ID: [id number] Author: Kirstin Escalante APRN.CNP Service: ? Author [...] 1000mg bid 2. HTN Controlled Kirstin Escalante APRN.BOAZBethesda North Hospital04-01-2022 NoteHNO ID: [id number] Author: Kirstin Escalante APRN.CLINICAL LAB SPECIALIST Service: ? Author Type: Nurse Practitioner Type: [...] on current meds -psych following Summer TABATHA Escalante.[facility]04-01-2022 History of Present illness Narrative* summer.CLINICAL LAB SPECIALIST - 06/04/2021 9:19 AM EDT Allan Lara [...] disorder -stable on current meds -psych following summerN.CLINICAL LAB SPECIALIST documented in this encounterGalion Hospital03-30-2022 NoteHNO ID: [id number] Author: Kirstin Escalante APRN.CNP Service: ? Author [...] 3 Bmp avoid nephrotoxic meds Kirstin Escalante APRN.CNPBethesda North Hospital03-23-2022 NoteHNO ID: [id number] Author: Kirstin Escalante APRN.CLINICAL LAB SPECIALIST Service: ? Author Type: Nurse Practitioner Type: [...] Cortisone Rash Vitals and Medications reviewed in [facility] system. PHYSICAL EXAMINATION: General appearance: [...] loss since Mar -recent hospiralzation -monitor wts -hospital administrator following Summer TABATHA Escalante.CNPBethesda North Hospital03-23-2022 History of Present illness Narrative* Summer TABATHA Escalante.CLINICAL LAB SPECIALIST - 05/26/2021 1:01 PM EDT Allan Lara [...] Cortisone Rash Vitals and Medications reviewed in [facility] system. PHYSICAL EXAMINATION: General appearance: [...] loss since Mar -recent hospiralzation -monitor wts -hospital administrator following Kirstin Escalante APRN.BOAZ documented in this encounterGalion Hospital03-11-2022 NoteHNO ID: [id number] Author: Kirstin Escalante APRN.CNP Service: ? Author [...] Cortisone Rash Vitals and Medications reviewed in [facility] system. PHYSICAL EXAMINATION: General appearance: [...] nephrology 2. Generalized weakness -PT/OT Kirstin Escalante APRN.BOAZBethesda North Hospital03-11-2022 History of Present illness Narrative* Kirstin Escalante APRN.CLINICAL LAB SPECIALIST - 05/14/2021 9:31 PM EST Allan Lara [...] Cortisone Rash Vitals and Medications reviewed in [facility] system. PHYSICAL EXAMINATION: General appearance: [...] nephrology 2. Generalized weakness -PT/OT Kirstin Escalante APRN.CLINICAL LAB SPECIALIST documented in this encounterGalion Hospital03-10-2022 NoteHNO ID: [id number] Author: Kirstin Escalante APRN.BOAZ Service: ? Author [...] Cortisone Rash Vitals and Medications reviewed in [facility] system. PHYSICAL EXAMINATION: General appearance: [...] panel 2.Constipation conitnue current regimen Kirstin Escalante APRN.CNPBethesda North Hospital03-02-2022 NoteHNO ID: [id number] Author: Kirstin Escalante APRN.CLINICAL LAB SPECIALIST Service: ? Author Type: Nurse Practitioner Type: [...] Cortisone Rash Vitals and Medications reviewed in [facility] system. PHYSICAL EXAMINATION: General appearance: [...] 1000mg bid 2. HTN Controlled Kirstin Escalante APRN.BOAZBethesda North Hospital02-28-2022 NoteHNO ID: [id number] Author: Kirstin Escalante APRN.CLINICAL LAB SPECIALIST Service: ? Author Type: Nurse Practitioner Type: [...] Cortisone Rash Vitals and Medications reviewed in [facility] system. PHYSICAL EXAMINATION: General appearance: [...] lesion -urology f/u as scheduled Kirstin Escalante APRN.CNPBethesda North Hospital02-25-2022 NoteHNO ID: [id number] Author: Kirstin Escalante APRN.CLINICAL LAB SPECIALIST Service: ? Author Type: Nurse Practitioner Type: [...] K59.01 -stable on current regimen Kirstin Escalante APRN.CNPBethesda North Hospital02-23-2022 NoteHNO ID: [id number] Author: Kirstin Escalante APRN.BOAZ Service: ? Author [...] on current meds -psych following Summer TABATHA Escalante.[facility]02-21-2022 NotePatient: ALLAN LARA Age: 70 years Sex: [...] 650 mg = 2 tab(s), PRN, ORAL, K1UEOMY albuterol-ipratropium 2.5 mg-0.5 mg/3 mL inhalation solution = DuoNeb 3 mL, PRN, Inhalation, [id number] RESPIRATORY cloZAPine 100 mg oral tablet 100 [...] 10 mg = 1 tabs, ORAL, QHS [place] 0.65% nasal spray 2 sprays, PRN, Intranasal, [...] given: to patient. Discharge disposition[facility] [place] [facility]. Prescriptions: reviewed. Diagnosis Acute diarrhea - UUC24-XP R19.7, Medical. Acute renal failure (ARF) - CMC67-FU N17.9, Medical. COVID-19 - MAC54-ZH U07.1, Medical. Dehydration - AYB98-UR E86.0, Medical. Dementia - YPV66-RN F03.90, Medical. Diabetes mellitus - MUT10-IL E11.9, Medical. HTN (hypertension) - UNV31-QP I10, Medical. Hyperkalemia - MCE01-NE E87.5, Medical. Hyperlipemia - DXY27-DD E78.5, Medical. Kidney neoplasm - XOS93-HX D49.519, Medical. Multiple falls - PNED [id number], Medical. Severe sepsis - MTP67-GB R65.20, Medical. Tachycardia - FAV72-GO R00.0, Medical. Education and Follow-up Discharge Planning: Renal US to be done in 6 months; SANDRITA ROSARIO, [place] [facility] (Medical) Please follow up in 2 months; JUAN KAPLAN, Urology Within Call for Appointment Follow up for new Flomax prescription, jasso while in the hospital for retention. [facility]02-18-2022 NoteHNO ID: [id number] Author: iKrstin Escalante APRN.CLINICAL LAB SPECIALIST Service: ? Author Type: Nurse Practitioner Type: [...] -general surgery consult for gallstones Kirstin Escalante APRN.BOAZBethesda North Hospital02-14-2022 NoteHNO ID: [id number] Author: Kirstin Escalante APRN.BOAZ Service: ? Author [...] -CBCD BMP General surgery consult Kirstin Escalante APRN.[facility]02-07-2022 NoteHNO ID: [id number] Author: Kirstin Escalante APRN.CLINICAL LAB SPECIALIST Service: ? Author Type: Nurse Practitioner Type: Progress Notes Filed: 04/28/2021 2:18 PM Note Text: Allan Lara is a 70 year old male seen today for skilled visit.Returned from acute stay at [facility] for HAYLIE sepsis after send [...] -avoid nephrotoxic meds -Repeat bmp Summer Boris, ORDER PROCESSING CLERK.[facility]02-03-2022 NoteEXAM: CT Abdomen Without and With Intravenous [...] by: Jo-Ann Hauser MD 04/08/2021 1:47 PM TRANSFER CONTROLLER [id number] County Community HospitalComment on above:Order Comment: CT renal protocol for evaluation of renal lesion.Result Comment: Technologist: MS,AL,WCL,KJF Dictated By: JO-ANN HAUSER MD Signed By: JO-ANN HAUSER MD Signed Out: 04/08/21 14:47:[id number] NotePatient: ALLAN LARA Age: 70 years Sex: Male : 1950 Associated Diagnoses: COVID-19; Dementia; Diabetes mellitus; HTN (hypertension); Hyperlipemia; Kidney neoplasm; Multiple falls Author: ROLANDO TUCKER MD Basic Information Source of history: Medical record. Referral source: Emergency department. Chief Complaint - Multiple fall History of Present Illness -Patient is 70-year-old [place] from [place] with MMP including DM2, HTN, HLD, kidney [...] CHLORIDE SYR/VIAL 10ML 3 mL, IV Push, [id number] TAMSULOSIN 0.4MG CAP 0.4 mg 1 caps, ORAL, BID Continuous: (1) SODIUM CHLORIDE 0.9% 1,000 mL 1,000 mL, IV, 1000 mL/hr PRN: (11) ACETAMINOPHEN 325 MG TAB 650 mg 2 tabs, ORAL, [id number] ACETAMINOPHEN 325 MG TAB 650 mg 2 tabs, ORAL, Z1SVWFG ALBUTEROL 0.083% AEROSOL 2.5mg/3ML 2.5 mg 3 mL, Inhalation, B1AZBAR RESPIRATORY DEXTROSE 50% 50ML SYRINGE/VIAL 12.5 g [...] 0.5 TABLET 2.5 mg 1 EA, ORAL, QHS/[id number] Problem list: Active Problems (9) At risk [...] differentiation is normal. There (more content not included)...[facility]01-31-2022 NotePROCEDURE: XR Chest, 1 View CLINICAL [...] by: Dayanna Hernandez MD 04/05/2021 3:22 AM TRANSFER CONTROLLER Technologist: CV Dictated By: DAYANNA HERNANDEZ MD Signed By: DAYANNA HERNANDEZ MD Signed Out: 04/05/21 04:22:20SMercer County [facility] Hospital01-22-2022 NoteHNO ID: [id number] Author: Kirstin Escalante APRN.CLINICAL LAB SPECIALIST Service: ? Author Type: Nurse Practitioner Type: [...] <130/80 2. HLD -statin -lft/flp Kirstin Escalante APRN.CNPBethesda North Hospital01-18-2022 NoteHNO ID: [id number] Author: Kirstin Escalante APRN.CLINICAL LAB SPECIALIST Service: ? Author Type: Nurse Practitioner Type: [...] 288.60, ICD10: D72.829 - resolved Kirstin Escalante APRN.CNPBethesda North Hospital01-14-2022 NoteHNO ID: [id number] Author: Kirstin Escalante APRN.CLINICAL LAB SPECIALIST Service: ? Author Type: Nurse Practitioner Type: [...] DM II (diabetes mellitus, type II), controlled ([facility]) - Hypertension - Hypothyroidism - Schizophrenia, schizo-affective [...] Cortisone Rash Vitals and Medications reviewed in [facility] system. PHYSICAL EXAMINATION: General appearance: [...] 288.60, ICD10: D72.829 -repeat CBCD Kirstin Escalante APRN.CNPBethesda North Hospital12-29-2021 NoteHNO ID: [id number] Author: Kirstin Escalante APRN.CLINICAL LAB SPECIALIST Service: ? Author Type: Nurse Practitioner Type: [...] Cortisone Rash Vitals and Medications reviewed in [facility] system. PHYSICAL EXAMINATION: General appearance: [...] mg daily Negative Covid swab Kirstin Escalante APRN.CNPBethesda North Hospital12-10-2021 NoteHNO ID: [id number] Author: Kirstin Escalante APRN.CLINICAL LAB SPECIALIST Service: ? Author Type: Nurse Practitioner Type: [...] Cortisone Rash Vitals and Medications reviewed in [facility] system. PHYSICAL EXAMINATION: General appearance: [...] control - Continue current medication. Kirstin Escalante APRN.CNPBethesda North Hospital12-09-2021 NoteHNO ID: [id number] Author: Kirstin Escalante APRN.CLINICAL LAB SPECIALIST Service: ? Author Type: Nurse Practitioner Type: [...] Cortisone Rash Vitals and Medications reviewed in [facility] system. PHYSICAL EXAMINATION: General appearance: [...] Constipation -stable on current regimen Kirstin Escalante APRN.CNPBethesda North Hospital11-12-2021 NoteHNO ID: [id number] Author: Kirstin Escalante APRN.CNP Service: ? Author [...] -encourage po fluids ,tylenol prn Kirstin Escalante APRN.CNPBethesda North Hospital11-10-2021 NoteHNO ID: [id number] Author: Kirstin Escalante APRN.CLINICAL LAB SPECIALIST Service: ? Author Type: Nurse Practitioner Type: [...] <130/80 2. HLD -statin -lft/flp Kirstin Escalante APRN.CNPBethesda North Hospital10-29-2021 NoteHNO ID: [id number] Author: Kirstin Escalante APRN.CNP Service: ? Author [...] -med compliant -psych following -stable Summer TABATHA Escalante.[facility]10-18-2021 NoteHNO ID: [id number] Author: Kirstin Escalante APRN.CLINICAL LAB SPECIALIST Service: ? Author Type: Nurse Practitioner Type: [...] bid 2. DM2 -metformin -A1C Kirstin Escalante APRN.CNPBethesda North Hospital10-13-2021 NoteHNO ID: [id number] Author: Kirstin Escalante APRN.CNP Service: ? Author [...] K59.01 -stable on current regimen Kirstin Escalante APRN.CNPBethesda North Hospital09-29-2021 NoteHNO ID: [id number] Author: Kirstin Escalante APRN.CNP Service: ? Author [...] DM II (diabetes mellitus, type II), controlled ([facility]) - Hypertension - Hypothyroidism - Schizophrenia, schizo-affective [...] 7 days -continue amox po Kirstin Escalante APRN.CNPBethesda North Hospital09-27-2021 NoteHNO ID: [id number] Author: Kirstin Escalante APRN.CLINICAL LAB SPECIALIST Service: ? Author Type: Nurse Practitioner Type: [...] DM II (diabetes mellitus, type II), controlled ([facility]) - Hypertension - Hypothyroidism - Schizophrenia, schizo-affective [...] Cortisone Rash Vitals and Medications reviewed in [facility] system. PHYSICAL EXAMINATION: General appearance: [...] ICD9: 564.00, ICD10: K59.00 -stable Kirstin Escalante APRN.CNPBethesda North Hospital09-20-2021 NoteHNO ID: [id number] Author: Kirstin Escalante APRN.CLINICAL LAB SPECIALIST Service: ? Author Type: Nurse Practitioner Type: [...] Cortisone Rash Vitals and Medications reviewed in [facility] system. PHYSICAL EXAMINATION: General appearance: [...] -encourage po fluids and rest Summer Afaneh, ORDER PROCESSING CLERK.CLINICAL LAB SPECIALIST summer, ORDER PROCESSING CLERK.[facility] 11-21-2020 NoteHNO ID: [id number] Author: Jessi Austin MD Service: ? Author [...] 250.00, ICD10: E11.9 fair control Jessi Austin [facility]09-13-2021 NoteHNO ID: [id number] Author: Kirstin Escalante APRN.CLINICAL LAB SPECIALIST Service: ? Author Type: Nurse Practitioner Type: [...] -encourage po fluids ,tylenol prn Kirstin Escalante APRN.[facility]09-09-2021 NoteHNO ID: [id number] Author: Kirstin Escalante APRN.CLINICAL LAB SPECIALIST Service: ? Author Type: Nurse Practitioner Type: [...] <130/80 2.Schizoaffective -med compliant -OT Kirstin Escalante APRN.CNPBethesda North Hospital08-30-2021 NoteHNO ID: [id number] Author: Kirstin Escalante APRN.BOAZ Service: ? Author [...] Cortisone Rash Vitals and Medications reviewed in [facility] system. PHYSICAL EXAMINATION: General appearance: [...] ED visit -f/u with nephrology Kirstin Escalante APRN.BOAZBethesda North Hospital08-27-2021 NoteHNO ID: [id number] Author: Kirstin Escalante APRN.CLINICAL LAB SPECIALIST Service: ? Author Type: Nurse Practitioner Type: [...] Cortisone Rash Vitals and Medications reviewed in [facility] system. PHYSICAL EXAMINATION: General appearance: [...] <130/80 2. HLD -statin -lft/flp Kirstin Escalante APRN.CNPBethesda North Hospital08-20-2021 NoteHNO ID: [id number] Author: Kirstin Escalante APRN.CLINICAL LAB SPECIALIST Service: ? Author Type: Nurse Practitioner Type: [...] DM II (diabetes mellitus, type II), controlled ([facility]) - Hypertension - Hypothyroidism - Schizophrenia, schizo-affective [...] Cortisone Rash Vitals and Medications reviewed in [facility] system. PHYSICAL EXAMINATION: General appearance: [...] Z20.822 -Negative rapid -no s/s Kirstin Escalante APRN.CNPBethesda North Hospital08-18-2021 NoteHNO ID: [id number] Author: Kirstin Escalante APRN.CLINICAL LAB SPECIALIST Service: ? Author Type: Nurse Practitioner Type: [...] symptoms -stable on current tx Kirstin Escalante APRN.CNPBethesda North Hospital08-09-2021 NoteHNO ID: [id number] Author: Kirstin Escalante APRN.BOAZ Service: ? Author [...] HLD -continue statin -monitor FLP/LFT Kirstin Escalante APRN.CNPBethesda North Hospital08-03-2021 NoteHNO ID: [id number] Author: Kirstin Escalante APRN.CLINICAL LAB SPECIALIST Service: ? Author Type: Nurse Practitioner Type: [...] <130/80 2.GERD - protonix 20 mg daily summergarretjunN.[facility]05-19-2021 History of Present illness Narrative* Kasie Suero [...] 22, 2020 10:11 AM [facility] Diagnosis Renal mass- Primary Unspecified disorder of kidney and ureter Muscle weakness (generalized) documented in this [facility]* Diagnosis Essential hypertension- Primary Unspecified essential hypertension Weight loss Loss of weight documented in this [facility]* Diagnosis Hypothyroidism, unspecified type- Primary Schizoaffective disorder, bipolar type (HCC) Schizoaffective disorder, unspecified condition [facility] Diagnosis Stage 3 chronic kidney disease, unspecified whether stage 3a or 3b CKD (HCC)- Primary Constipation, unspecified constipation type [facility]* Diagnosis Renal mass- Primary Unspecified disorder of kidney and ureter Muscle weakness (generalized) [facility]* Diagnosis Essential hypertension- Primary Unspecified essential hypertension Rhinorrhea Other diseases of nasal cavity and sinuses [facility]* Diagnosis Diabetes mellitus without complication (HCC)- Primary Type II or unspecified type diabetes mellitus without mention of complication, not stated as uncontrolled Constipation, unspecified constipation type documented in this [facility]* Diagnosis Diabetes mellitus without complication (HCC)- Primary Type II or unspecified type diabetes mellitus without mention of complication, not stated as uncontrolled Hyperlipidemia, unspecified hyperlipidemia type documented in this encounter [facility] note* Diagnosis Diabetes mellitus without complication (HCC)- Primary Type II or unspecified type diabetes mellitus without mention of complication, not stated as uncontrolled Hyperlipidemia, unspecified hyperlipidemia type documented in [facility]* Diagnosis Essential hypertension- Primary Unspecified essential hypertension Heartburn [facility] Diagnosis Calculus of gallbladder with acute on chronic cholecystitis without obstruction- Primary Diarrhea, unspecified type [facility]* Diagnosis Essential hypertension- Primary Unspecified essential hypertension Renal mass Unspecified disorder of kidney and ureter [facility]* Diagnosis Onset Date Resolution Status Acute hypotension acute Acute kidney injury acute COVID acute Diarrhea acute Fall acute Gastroenteritis acute Head injury acute Laceration of eyebrow, left acute Leukocytosis acute Sepsis associated hypotension acute Diabetes mellitus, type II c [facility] Work Phone: Evaluation note* Diagnosis Onset Date Resolution Status Acute hypotension resolved Acute kidney injury resolved Diarrhea resolved Gastroenteritis resolved Head injury resolved Laceration of eyebrow, left resolved Leukocytosis resolved Sepsis associated hypotension resolved [facility] Work Phone: [email or web address] note* Diagnosis Pain Generalized pain documented in this encounter [facility] Author Dr. Verma [facility] July 04, 2022 6:02am Note Date/Time July 04, 2022 4:37am [facility] Medical Records Department [address] [place] [address] H&P Exam - Hospitalist 07/04/22 0436 MR#: [id number] Acct: [id number] Name: ALLAN LARA Rep #:[id number] : 1950 71 From: Sreekanth Verma MD PCP: Dr. Simone Messer MD Status:ADM I N Location: ICU ICU01-1 HPI - General General Date of Admission: 07/04/22 Date of Service: 07/04/22 Chief Complaint: Fall HPI Narrative ALLAN LARA, is a 71 M with a significant history of Schizoaffective disorder; delusional disorder; hypothyroidism; hypertension; and neoplasm of right kidney who presents from [facility] with a fall. Also patient sustained [...] doctor who discussed the case primarily with [facility]. [facility] Medical History (Updated 07/04/22 @ 05:58 by [...] 91.2 H, Lymph % (Auto) 3.6 L, Marin % (Auto) 3.7, Eos % (Auto) 0.0, [...] Clarity Clear, Urine pH 5.0, Ur Specific Benedicta 1.015, Urine Protein 15 H, Urine Glucose [...] Lovenox ordered. Charges/Coding Visit Charges Inpatient E&M: 94608 Init Hosp L3 07/04/22 0602 <Electronically signed by Sreekanth Verma MD> Cosigner Signature (if applicable): CC: Dr. Sreekanth Verma MD; Dr. Simone Messer MD~ Signed [facility] Work Phone: History of Present illness Narrative* incidental finding or renal mass * has renal cysts and calculi * enlarged prostate on tamsulosin * resides in * history of abn CT scan without [...] defects * Social History * resides in [facility] in [place] * International Prostate Symptom Score (I-PSS) * I-PSS Total Score: 2 * Quality of Life Score: 1 [facility] Work Phone: Summary Purpose Family History No [...] FoundDocuments on File Type Date Recorded Patient Parts Counterman Expl anation Advance Directive(s) 09/05/2017 7:39 AM Advance Directive Response Recorded Date/ Time Name of Medical Power of Catapult And Arresting Gear Officer jason pelon July 04, 2022 2:52am Living Will No July 04, 2022 2: 52am Power of Catapult And Arresting Gear Officer Yes July 04, 2022 2:52am Chief Complaint * Renal Mass * KAROLYN Rendon Line [phone] * Office Line [phone] - use only for off hours or [...] section and content) DATE CREATED AUTHOR 01/27/2020 [facility] DATE CREATED AUTHOR AUTHOR'S ORGANIZ ATION 03/19/2021 [facility] DATE CREATED AUTHOR AUTHOR'S ORGANIZ ATION 04/22/2021 [facility] DATE CREATED AUTHOR AUTHOR'S ORGANIZ ATION 05/11/2021 [facility] DATE CREATED AUTHOR AUTHOR'S ORGANIZ ATION 09/21/2021 [facility] DATE CREATED AUTHOR AUTHOR'S ORGANIZ ATION 10/05/2021 [facility] DATE CREATED AUTHOR AUTHOR'S ORGANIZ ATION 11/11/2021 [facility] DATE CREATED AUTHOR AUTHOR'S ORGANIZ ATION 01/15/2025 [facility] Source Comments (unrecognize d section and content) In the event this informatio n is protected by the Federal Confidentiality of Alcohol and Drug Abuse Patient Records regulations: The Federal rules restrict any use of the information to criminally investigate or prosecute any alcohol or drug abuse patient.[facility] HospitalIn the event this information is protected by the Federal Confidentiality of Alcohol and Drug Abuse Patient Records regulations: The Federal rules restrict any use of the information to criminally investigate or prosecute any alcohol or drug abuse patient.[facility] HospitalIn the event this information is protected by the Federal Confidentiality of Alcohol and Drug Abuse Patient Records regulations: The Federal rules restrict any use of the information to criminally investigate or prosecute any alcohol or drug abuse patient.[facility] HospitalIn the event this information is protected by the Federal Confidentiality of Alcohol and Drug Abuse Patient Records regulations: The Federal rules restrict any use of the information to criminally investigate or prosecute any alcohol or drug abuse patient.[facility] HospitalIn the event this information is protected by the Federal Confidentiality of Alcohol and Drug Abuse Patient Records regulations: The Federal rules restrict any use of the information to criminally investigate or prosecute any alcohol or drug abuse patient.[facility] HospitalIn the event this information is protected by the Federal Confidentiality of Alcohol and Drug Abuse Patient Records regulations: The Federal rules restrict any use of the information to criminally investigate or prosecute any alcohol or drug abuse patient.[facility] HospitalIn the event this information is protected by the Federal Confidentiality of Alcohol and Drug Abuse Patient Records regulations: The Federal rules restrict any use of the information to criminally investigate or prosecute any alcohol or drug abuse patient.[facility] HospitalIn the event this information is protected by the Federal Confidentiality of Alcohol and Drug Abuse Patient Records regulations: The Federal rules restrict any use of the information to criminally investigate or prosecute any alcohol or drug abuse patient.[facility] HospitalIn the event this information is protected by the Federal Confidentiality of Alcohol and Drug Abuse Patient Records regulations: The Federal rules restrict any use of the information to criminally investigate or prosecute any alcohol or drug abuse patient.[facility] HospitalIn the event this information is protected by the Federal Confidentiality of Alcohol and Drug Abuse Patient Records regulations: The Federal rules restrict any use of the information to criminally investigate or prosecute any alcohol or drug abuse patient.[facility] HospitalIn the event this information is protected by the Federal Confidentiality of Alcohol and Drug Abuse Patient Records regulations: The Federal rules restrict any use of the information to criminally investigate or prosecute any alcohol or drug abuse patient.[facility] HospitalIn the event this information is protected by the Federal Confidentiality of Alcohol and Drug Abuse Patient Records regulations: The Federal rules restrict any use of the information to criminally investigate or prosecute any alcohol or drug abuse patient.[facility] HospitalIn the event this information is protected by the Federal Confidentiality of Alcohol and Drug Abuse Patient Records regulations: The Federal rules restrict any use of the information to criminally investigate or prosecute any alcohol or drug abuse patient.[facility] HospitalIn the event this information is protected by the Federal Confidentiality of Alcohol and Drug Abuse Patient Records regulations: The Federal rules restrict any use of the information to criminally investigate or prosecute any alcohol or drug abuse patient.[facility] HospitalIn the event this information is protected by the [facility] Confidentiality of Alcohol and Drug Abuse Patient Records regulations: The Federal rules restrict any use of the information to criminally investigate or prosecute any alcohol or drug abuse patient.[facility] HospitalIn the event this information is protected by the Federal Confidentiality of Alcohol and Drug Abuse Patient Records regulations: The Federal rules restrict any use of the information to criminally investigate or prosecute any alcohol or drug abuse patient.[facility] Care Teams (unrecognized sec tion and content) Able Bodied Tankerman Relationship Specialty Start Date End Date Loretta Rolle Paco [address] [place] [address] PCP - General Family Practice 09/05/17 Able Bodied Tankerman Relationship Specialty Start Date End Date Loretta Rolle [address] [place] [address] PCP - General Family Practice 09/05/17 Able Bodied Tankerman Relationship Specialty Start Date End Date Loretta Rolle [address] [place] [address] PCP - General Family Practice 09/05/17 Able Bodied Tankerman Relationship Specialty Start Date End Date Loretta [address] [place] [address] PCP - General Family Practice 09/05/17 Team Status: Active Member Role Status Dates [facility] Family Provider Active Dr. Simone Messer MD [...] Provi blanca, Attending Provider, Referring Provider Active Able Bodied Tankerman Relationship Specialty Start Date End Date King Loretta Paco, BOAZ [address] [place] [address] PCP - General Family Medicine 09/05/17 Goals [...] BE BASED ON THE PRIMARY CLINICAL RECORDS. [employer] provides no warranty or guarantee of the accuracy or completeness of information in this document.
[2025-02-04 19:51] LABS: Reflex Lactate? Y
[2025-02-04] MEDS: 0.45% Normal Saline 1,000 ML 150 ML IV (21:14)
[2025-02-04 21:32] LABS: Troponin T High Sens 4 HR 35 ng/L (<=22)
[2025-02-04] MEDS: Senna/Docusate Sodium 1 Tablet 2 TABLET PO (21:44)
[2025-02-05] VITALS (7 sets, daily range): BP systolic 102–134; BP diastolic 47–100; PULSE 96–107; RESP 16–26; TEMP 36.3–37; O2SAT 98–100
--- NOTE | 2025-02-05 00:27 | PCM.HOSP.N ---
Hospitalist Note Pt is resisting nursing care, restless, and yelling out. Quetiapine 50mg PO now and QHS, 25mg PO QAM orders placed.
[2025-02-05 01:14] LABS: Ketone-Dipstick 150 mg/dl (Negative)
--- NOTE | 2025-02-05 05:54 | PN.HOSP_ITS ---
Reason for Visit Chief Complaint: Confusion Subjective Subjective Patient is a 74-year-old gentleman resident is an extended care facility was brought to the emergency department with shortness of breath.Chest x-ray demonstrated no focal consolidation but mild pulmonary vascular congestion. Patient was found to be hyponatremic with sodium levels of 150 admitted to regular nursing floor for further management Objective Data Objective Data Vital Signs: Vital Signs Temp Pulse Resp BP Pulse Ox O2 Del Method O2 Flow Rate 97.9 F 96 24 H 134/82 H 99 Room Air 2 02/05/25 03:45 02/05/25 03:45 02/05/25 03:45 02/05/25 03:45 02/05/25 03:45 02/05/25 03:45 02/04/25 17:30 Oxygen Flow Rate (L/min) 2 Oxygen Delivery Method Room Air Weight: 64.2 kg Body Mass Index (BMI) 20.9 Intake & Output: Intake and Output for Last 24 Hours 02/03/25 02/04/25 02/05/25 23:59 23:59 23:59 Intake Total 1050 / 1050 1000 / 1000 Balance 1050 / 1050 1000 / 1000 Lab / Micro Data 02/04/25 15:47 02/04/25 15:47 Labs: Laboratory Results - last 24 hr 02/04/25 15:47: WBC 15.0 H, RBC 4.54 L, Hgb 12.9 L, Hct 40.3, MCV 88.8, MCH 28.4, MCHC 32.0, RDW Std Deviation 43.9, RDW Coeff of Kirk 13.9, Plt Count 389, MPV 11.4, Immature Gran % (Auto) 1.500 H, Neut % (Auto) 72.9 H, Lymph % (Auto) 17.7 L, Marin % (Auto) 7.1, Eos % (Auto) 0.1, Baso % (Auto) 0.7, Absolute Neuts (auto) 10.9 H, Absolute Lymphs (auto) 2.65, Nucleated RBC % 0, Sodium 150 H, Potassium 3.4, Chloride 110 H, Carbon Dioxide 16.6 L, Anion Gap 24 H, BUN 28 H, Creatinine 1.24 H, Estim Creat Clear Calc 44.16 L, Est GFR (MDRD) Non-Af 60, B UN/Creatinine Ratio 22.9 H, Glucose 120 H, Lactic Acid 2.1 H*, Calcium 9.5, Total Bilirubin 0.68, AST 14, ALT 6, Alkaline Phosphatase 82, Troponin T High Sens 36 H D, Total Protein 6.7, Albumin 3.6, Globulin 3.1, Albumin/Globulin Ratio 1.2 02/04/25 16:09: POC Glucose 106 02/04/25 17:28: Urine Color Yellow, Urine Clarity Clear, Urine pH 6.0, Ur Specific Merrill 1.025, Urine Protein 30 H, Urine Glucose (UA) Normal, Urine Ketones 150 A*, Urine Occult Blood 10 H, Urine Nitrite Positive H, Urine Bilirubin 1 H, Urine Urobilinogen 1 H, Ur Leukocyte Esterase 25 H, Urine RBC 0 SEEN, Urine WBC 0-5 SEEN, Ur Squamous Epith Cells 0 SEEN, Urine Bacteria 1+, Urine Mucus 0 SEEN 02/04/25 17:49: Troponin T Hi Sens 2 Hr 31 H 02/04/25 20:36: Lactic Acid 1.8, Troponin T Hi Sens 4Hr 35 H ABG Data ABG results: ABG 02/04/25 16:00 Specimen Type MELISSA Sample Site Not entered VBG pH 7.58 H VBG pO2 34 VBG HCO3 16 L VBG Total CO2 17 L VBG O2 Sat (Calc) 78 H VBG Base Excess -6 L POC Mix VBG pCO2 Pt Tmp 17.1 L* O2 Delivery Device Not entered Crit Call To/Read Back Yes Blood Gas Notified Whom [facility] Blood Gas Notified Time 16:01:54 Radiography Diagnostic Testing: Radiology Impression Chest X-Ray 02/04/25 16:00 IMPRESSION: No focal consolidations. Mild pulmonary vascular congestion. Reading Location: [facility] Physical Exam Narrative GENERAL: Patient restless in bed HEENT: Atraumatic; normocephalic EYES; Anicteric, Normal Conjunctiva NECK; supple, normal thyroid, RESPIRATORY: Diminished to auscultation CARDIOVASCULAR: Regular S1 S2, GI: soft, normoactive bowel sounds, : No Renal angle tenderness; EXTREMITIES: No edema, no clubbing, MUSCULOSKELETAL: no muscle wasting NEURO: Awake; no lateralizing signs. SKIN: No Rash PSYCH; restless Assessment & Plan Assessment/Plan (1) Metabolic encephalopathy: (2) Hyponatremia: (3) Ketosis: (4) Bacteriuria: PLAN: Plan Patient is a 74-year-old gentleman resident is an extended care facility was brought to the emergency department with shortness of breath.Chest x-ray demonstrated no focal consolidation but mild pulmonary vascular congestion. Patient was found to be hyponatremic with sodium levels of 150 admitted to regular nursing floor for further management 1. Acute dyspnea ? Checst x-ray did show mild pulmonary vascular congestion. Patient presentation however not consistent with congestive heart failure we will continue with monitoring 2. Hypernatremia ? Secondary to severe dehydration patient started on 0.45 saline daily BMP ordered to assess response to therapy 3. Acute metabolic encephalopathy ? Due to combination of patient hyponatremia as well as acute cystitis 4. Acute cystitis ? Patient started on ceftriaxone urine culture sent 5. Acute kidney injury ? Patient was on IV fluid with subsequent monitoring of electrolyte 6. Hypothyroidism ? Patient is on levothyroxine home dose continued 7. Diabetes mellitus type II - Managed with diet 8. Hypertension ? Blood pressure controlled, home medications continued with dose adjustment as needed 9. GERD ? On PPI 10. BPH with lower urinary obstructive symptoms - Patient treated with tamsulosin 11. Depression with anxiety ? Per history patient is on trazodone and fluoxetine 12. DVT prophylaxis ? On enoxaparin Time spent in the patient's overall evaluation,decision-making process, review of diagnostic data, adjustment of management, discussion with other providers, nursing nursing and ancillary staff involved in patient's care documentation, 50 Minutes Charges/Coding Visit Charges Inpatient E&M: [address] [place] [address]
[2025-02-05] MEDS: 0.9% Saline Lock 10 ML Syringe IV ×2 (06:44→10:07)
[2025-02-05 06:48] LABS: Hematocrit 37.3 % (40-54); Hemoglobin 12.1 g/dL (13.0-16.5); Immature Granulocytes Count 0.140 X10^3/uL (0.0-0.0); Mean Corp Hgb Conc 32.4 g/dL (32-36); Mean Corpuscular Volume 88.6 fL (80-94); Mean Platelet Vol. 11.2 fl (6.2-12.0); NRBC Flagged by Analyzer 0 % (0-5); Platelet Count 331 K/mm3 (150-450); RBC Distribution Width CV 14.4 % (11.6-14.6); RBC Distribution Width SD 44.9 fl (35.1-43.9); Red Blood Count 4.21 M/mm3 (4.6-6.2); White Blood Count 11.3 K/mm3 (4.4-11.0)
[2025-02-05 07:21] LABS: Anion Gap 20 (5-15); BUN 27 mg/dL (4-19); BUN/Creat Ratio 20.5 RATIO (10-20); Calcium,Total 9.2 mg/dL (7.6-11.0); Carbon Dioxide 15.3 mmol/L (21.0-32.0); Chloride 116 mmol/L (98-108); Estimated Creatinine Clearance 43.56 ml/min (50-250); Glucose 103 mg/dL (70-99); Potassium 3.4 mmol/L (3.3-5.1)
[2025-02-05] MEDS: 0.45% Normal Saline 1,000 ML 150 ML IV ×2 (10:07→17:29)
--- NOTE | 2025-02-05 10:46 | CASEMGMT ---
Social Work- spoke with pt guardian, Ashley, who reports that the plan will be for pt to return to [facility]. RNCM updated. DCA updated. Plan: [facility]; return KAYA Trivedi
--- NOTE | 2025-02-05 10:54 | CASEMGMT ---
Addendum entered by Kasie Daugherty 02/05/25 11:55: Pts demographics have been updated. Addendum entered by Kasie Daugherty 02/05/25 11:09: Pt is a bedhold and can return when medically ready. RN CM updated. Original Note: Discharge Planning Call placed to pts legal guardian regarding pts demographics listing Phoenix Patel as POA. Pts guardian, Ashley Galloway, stated that she has not been able to get clear information from [facility] as to who Phoenix is, Her best guess is that she/he was/is payee. Ashley verified that Phoenix is not a medical decision maker and asked for Phoenix to be removed from pts demographics. Call was given to CHIQUI who verified discharge plan is for pt to return to [facility]. CHIQUI then updated RN CM on dc plan. Updates sent via [facility] to [facility]. Kasie Daugherty DC Planning Asst.
[2025-02-06] MEDS: 0.45% Normal Saline 1,000 ML 150 ML IV ×2 (01:23→07:27)
[2025-02-06 01:24] VITALS: BP 96/78; PULSE 91; RESP 18; O2SAT 99
[2025-02-06 06:28] VITALS: BP 109/63; PULSE 88; RESP 16; TEMP 36.3; O2SAT 100
[2025-02-06 06:45] LABS: Hematocrit 31.9 % (40-54); Hemoglobin 10.4 g/dL (13.0-16.5); Immature Granulocytes Count 0.140 X10^3/uL (0.0-0.0); Mean Corp Hgb Conc 32.6 g/dL (32-36); Mean Corpuscular Volume 89.4 fL (80-94); Mean Platelet Vol. 10.9 fl (6.2-12.0); NRBC Flagged by Analyzer 0 % (0-5); Platelet Count 251 K/mm3 (150-450); RBC Distribution Width CV 14.8 % (11.6-14.6); RBC Distribution Width SD 47.9 fl (35.1-43.9); Red Blood Count 3.57 M/mm3 (4.6-6.2); White Blood Count 9.4 K/mm3 (4.4-11.0)
[2025-02-06 07:06] LABS: Anion Gap 13 (5-15); BUN 20 mg/dL (4-19); BUN/Creat Ratio 19.1 RATIO (10-20); Calcium,Total 8.3 mg/dL (7.6-11.0); Carbon Dioxide 18.7 mmol/L (21.0-32.0); Chloride 117 mmol/L (98-108); Estimated Creatinine Clearance 55.23 ml/min (50-250); Glucose 91 mg/dL (70-99); Magnesium 2.0 mg/dL (1.5-2.2); Potassium 3.3 mmol/L (3.3-5.1)
[2025-02-06 10:23] VITALS: BP 97/43; PULSE 92; RESP 16; TEMP 36.5; O2SAT 97
--- NOTE | 2025-02-06 12:10 | PN.HOSP_ITS ---
Reason for Visit Chief Complaint: Confusion Subjective Subjective Patient seen resting comfortably. Urine culture so far positive for presumptive E. coli Objective Data Objective Data Vital Signs: Vital Signs Temp Pulse Resp BP Pulse Ox O2 Del Method O2 Flow Rate 97.7 F L 92 16 97/43 L 97 Room Air 2 02/06/25 10:23 02/06/25 10:23 02/06/25 10:23 02/06/25 10:23 02/06/25 10:23 02/06/25 10:23 02/06/25 01:24 Oxygen Flow Rate (L/min) 2 Oxygen Delivery Method Room Air Weight: 64 kg Body Mass Index (BMI) 20.9 Intake & Output: Intake and Output for Last 24 Hours 02/04/25 02/05/25 02/06/25 23:59 23:59 23:59 Intake Total 1050 / 1050 2049 Balance 1050 / 1050 2049 Medical Nutrition Assessment Dietitian: Malnutrition Criteria Met Start: 02/05/25 15:10 Freq: Status: Active Protocol: Document 02/05/25 15:10 AL (Rec: 02/05/25 15:11 AL [id number]) Nutrition Malnutrition Evidence of Yes Malnutrition Exists Malnutrition ( Chronic moderate): Evidenced By Suboptimal Energy Intake (Severe),Weight Loss (Moderate ),Physical Changes (Moderate) Clinical Problem Chronic Disease or Condition Related Malnutrition Etiology related to general health decline Signs/Symptoms energy intake <75% > 1 month, weight loss of 17% x 1 year, muscle and adipose tissue wasting of tempels, clavicles, hands. Status Active Problem Recommendation Dietitian Continue NPO until properly evaluated for safe eating Recommendations/ by DIETARY AIDE COOK. RD to monitor changes to diet order and Changes possible need for alternate route for nutrition if NPO continues >5-7 days. If PO diet ordered, patient may benefit from oral nutrition supplement- would suggest to continue Magic Cup BID as ordered at [facility] if appropriate. Lab / Micro Data 02/06/25 06:19 02/06/25 06:19 Labs: Laboratory Results - last 24 hr 02/06/25 06:19: WBC 9.4, RBC 3.57 L, Hgb 10.4 L, Hct 31.9 L, MCV 89.4, MCH 29.1, MCHC 32.6, RDW Std Deviation 47.9 H, RDW Coeff of Kirk 14.8 H, Plt Count 251, MPV 10.9, Immature Gran % (Auto) 1.500 H, Neut % (Auto) 53.1, Lymph % (Auto) 32.3, M mehrdad % (Auto) 10.2 H, Eos % (Auto) 2.2, Baso % (Auto) 0.7, Absolute Neuts (auto) 5.0, Absolute Lymphs (auto) 3.04, Nucleated RBC % 0, Sodium 149 H, Potassium 3.3, Chloride 117 H, Carbon Dioxide 18.7 L, Anion Gap 13, BUN 20 H, Creatinine 1.03, Estim Creat Clear Calc 55.23, Est GFR (MDRD) Non-Af 75, BUN/Creatinine Ratio 19.1, Glucose 91, Calcium 8.3, Phosphorus 3.4, Magnesium 2.0 Micro: Microbiology 02/04/25 17:28 Urine, Catheterized Urine Culture - Final Presumptive E. coli Physical Exam Narrative GENERAL: Patient resting comfortably HEENT: Atraumatic; normocephalic EYES; Anicteric, Normal Conjunctiva NECK; supple, normal thyroid, RESPIRATORY: Diminished to auscultation CARDIOVASCULAR: Regular S1 S2, GI: soft, normoactive bowel sounds, : No Renal angle tenderness; EXTREMITIES: No edema, no clubbing, MUSCULOSKELETAL: no muscle wasting NEURO: no lateralizing signs. SKIN: No Rash PSYCH; restless Assessment & Plan Assessment/Plan (1) Metabolic encephalopathy: (2) Hyponatremia: (3) Ketosis: (4) Bacteriuria: PLAN: Plan Patient is a 74-year-old gentleman resident is an extended care facility was brought to the emergency department with shortness of breath.Chest x-ray demonstrated no focal consolidation but mild pulmonary vascular congestion. Patient was found to be hyponatremic with sodium levels of 150 admitted to regular nursing floor for further management 1. Acute dyspnea ? Checst x-ray did show mild pulmonary vascular congestion. Patient presentation however not consistent with congestive heart failure we will continue with monitoring 2. Hypernatremia ? Secondary to severe dehydration patient started on 0.45 saline daily BMP ordered to assess response to therapy ? 02/06/2025; sodium levels down to 149 will continue with current IV fluid and repeat BMP in a.m. 3. Acute metabolic encephalopathy ? Due to combination of patient hyponatremia as well as acute cystitis 4. Acute cystitis with E. coli ? Patient started on ceftriaxone urine culture sent ? 02/06/2025 urine cultures came back positive for E. coli patient remains on appropriate antibiotic therapy 5. Acute kidney injury ? Patient was on IV fluid with subsequent monitoring of electrolyte 6. Hypothyroidism ? Patient is on levothyroxine home dose continued 7. Diabetes mellitus type II - Managed with diet 8. Hypertension ? Blood pressure controlled, home medications continued with dose adjustment as needed 9. GERD ? On PPI 10. BPH with lower urinary obstructive symptoms - Patient treated with tamsulosin 11. Depression with anxiety ? Per history patient is on trazodone and fluoxetine 12. DVT prophylaxis ? On enoxaparin Time spent in the patient's overall evaluation,decision-making process, review of diagnostic data, adjustment of management, discussion with other providers, nursing nursing and ancillary staff involved in patient's care documentation, 38 minutes Charges/Coding Visit Charges Inpatient E&M: 17162 [facility] Hosp L2
--- NOTE | 2025-02-06 12:23 | CASEMGMT ---
Social Work- SW received notice that hospitalist would like to explore [facility]icia-psych placement due to continued escalation of violent behavior and change in mental status. Pt currently receiving IVs and being treated for positive urine cultures. SW to send referral to [facility] crisis in the next one-two days per hospitalist. DCA updated. [facility]; [facility] to be updated ongoing. KAYA Trivedi
--- NOTE | 2025-02-06 14:06 | CASEMGMT ---
Discharge Planinng Updates sent via [facility] to [facility]. Kasie Daugherty DC Planning Asst.
[2025-02-06] MEDS: Dext 5%-0.45% NS 1,000 ML 150 ML IV ×2 (16:01→23:35)
[2025-02-06 16:40] VITALS: BP 119/44; PULSE 87; RESP 18; TEMP 36.4; O2SAT 99
[2025-02-06] MEDS: 0.9% Saline Lock 10 ML Syringe IV (17:33)
[2025-02-06 23:25] VITALS: BP 126/83; PULSE 78; RESP 22; TEMP 36.6; O2SAT 100
[2025-02-07] MEDS: Dext 5%-0.45% NS 1,000 ML 150 ML IV (06:30)
[2025-02-07 06:39] VITALS: BP 139/77; PULSE 81; RESP 16; TEMP 36.2; O2SAT 99
[2025-02-07 07:09] LABS: Hematocrit 33.0 % (40-54); Hemoglobin 10.7 g/dL (13.0-16.5); Immature Granulocytes Count 0.110 X10^3/uL (0.0-0.0); Mean Corp Hgb Conc 32.4 g/dL (32-36); Mean Corpuscular Volume 87.8 fL (80-94); Mean Platelet Vol. 11.0 fl (6.2-12.0); NRBC Flagged by Analyzer 0 % (0-5); Platelet Count 237 K/mm3 (150-450); RBC Distribution Width CV 14.4 % (11.6-14.6); RBC Distribution Width SD 44.6 fl (35.1-43.9); Red Blood Count 3.76 M/mm3 (4.6-6.2); White Blood Count 8.2 K/mm3 (4.4-11.0)
--- NOTE | 2025-02-07 07:51 | PN.HOSP_ITS ---
Reason for Visit Chief Complaint: Confusion Subjective Subjective Patient continues to experience episodes of agitation. Did receive Ativan the day prior. Diagnostic data reviewed significant for hypokalemia with potassium of 2.6, repletion initiated. Sodium levels down to 144. Objective Data Objective Data Vital Signs: Vital Signs Temp Pulse Resp BP Pulse Ox O2 Del Method O2 Flow Rate 97.2 F L 81 16 139/77 H 99 Room Air 2 02/07/25 06:39 02/07/25 06:39 02/07/25 06:39 02/07/25 06:39 02/07/25 06:39 02/07/25 06:39 02/06/25 01:24 Oxygen Flow Rate (L/min) 2 Oxygen Delivery Method Room Air Weight: 64 kg Body Mass Index (BMI) 20.9 Intake & Output: Intake and Output for Last 24 Hours 02/05/25 02/06/25 02/07/25 23:59 23:59 23:59 Intake Total 2049 3960 / 3960 1000 / 1000 Balance 2049 3960 / 3960 1000 / 1000 Medical Nutrition Assessment Dietitian: Malnutrition Criteria Met Start: 02/05/25 15:10 Freq: Status: Active Protocol: Document 02/05/25 15:10 AK (Rec: 02/05/25 15:11 AK [id number]) Nutrition Malnutrition Evidence of Yes Malnutrition Exists Malnutrition ( Chronic moderate): Evidenced By Suboptimal Energy Intake (Severe),Weight Loss (Moderate ),Physical Changes (Moderate) Clinical Problem Chronic Disease or Condition Related Malnutrition Etiology related to general health decline Signs/Symptoms energy intake <75% > 1 month, weight loss of 17% x 1 year, muscle and adipose tissue wasting of tempels, clavicles, hands. Status Active Problem Recommendation Dietitian Continue NPO until properly evaluated for safe eating Recommendations/ by DEHYDROGENATION CONVERTER HELPER. RD to monitor changes to diet order and Changes possible need for alternate route for nutrition if NPO continues >5-7 days. If PO diet ordered, patient may benefit from oral nutrition supplement- would suggest to continue Magic Cup BID as ordered at [facility] if appropriate. Lab / Micro Data 02/07/25 06:14 02/07/25 06:14 Labs: Laboratory Results - last 24 hr 02/07/25 06:14: WBC 8.2, RBC 3.76 L, Hgb 10.7 L, Hct 33.0 L, MCV 87.8, MCH 28.5, MCHC 32.4, RDW Std Deviation 44.6 H, RDW Coeff of Kirk 14.4, Plt Count 237, MPV 11.0, Immature Gran % (Auto) 1.300 H, Neut % (Auto) 65.6, Lymph % (Auto) 22.0, Sterling % (Auto) 7.8, Eos % (Auto) 2.9, Baso % (Auto) 0.4, Absolute Neuts (auto) 5.4, Absolute Lymphs (auto) 1.80, Nucleated RBC % 0 Micro: Microbiology 02/04/25 17:28 Urine, Catheterized Urine Culture - Final Presumptive E. coli Physical Exam Narrative GENERAL: Patient resting comfortably HEENT: Atraumatic; normocephalic EYES; Anicteric, Normal Conjunctiva NECK; supple, normal thyroid, RESPIRATORY: Diminished to auscultation CARDIOVASCULAR: Regular S1 S2, GI: soft, normoactive bowel sounds, : No Renal angle tenderness; EXTREMITIES: No edema, no clubbing, MUSCULOSKELETAL: no muscle wasting NEURO: no lateralizing signs. SKIN: No Rash PSYCH; restless Assessment & Plan Assessment/Plan (1) Metabolic encephalopathy: (2) Hyponatremia: (3) Ketosis: (4) Bacteriuria: PLAN: Plan Patient is a 74-year-old gentleman resident is an extended care facility was brought to the emergency department with shortness of breath.Chest x-ray demonstrated no focal consolidation but mild pulmonary vascular congestion. Patient was found to be hyponatremic with sodium levels of 150 admitted to regular nursing floor for further management 1. Acute dyspnea ? Checst x-ray did show mild pulmonary vascular congestion. Patient presentation however not consistent with congestive heart failure we will continue with monitoring 2. Hypernatremia ? Secondary to severe dehydration patient started on 0.45 saline daily BMP ordered to assess response to therapy ? 02/06/2025; sodium levels down to 149 will continue with current IV fluid and repeat BMP in a.m. ? 02/07/2025; sodium level down to 144 3. Acute metabolic encephalopathy ? Due to combination of patient hyponatremia as well as acute cystitis 4. Acute cystitis with E. coli ? Patient started on ceftriaxone urine culture sent ? 02/06/2025 urine cultures came back positive for E. coli patient remains on appropriate antibiotic therapy 5. Acute kidney injury ? Patient was on IV fluid with subsequent monitoring of electrolyte 6. Hypothyroidism ? Patient is on levothyroxine home dose continued 7. Diabetes mellitus type II - Managed with diet 8. Hypertension ? Blood pressure controlled, home medications continued with dose adjustment as needed 9. GERD ? On PPI 10. BPH with lower urinary obstructive symptoms - Patient treated with tamsulosin 11. Depression with anxiety ? Per history patient is on trazodone and fluoxetine 12. DVT prophylaxis ? On enoxaparin 13. Hypokalemia ?Corrected via oral route as well as p.o. Repeat potassium levels ordered for 2 PM to assess response to therapy Time spent in the patient's overall evaluation,decision-making process, review of diagnostic data, adjustment of management, discussion with other providers, nursing nursing and ancillary staff involved in patient's care documentation, 38 minutes Charges/Coding Visit Charges Inpatient E&M: 88097 [facility] Hosp L2
[2025-02-07 08:07] LABS: Anion Gap 11 (5-15); BUN 9 mg/dL (4-19); BUN/Creat Ratio 10.9 RATIO (10-20); Calcium,Total 8.1 mg/dL (7.6-11.0); Carbon Dioxide 21.0 mmol/L (21.0-32.0); Chloride 112 mmol/L (98-108); Estimated Creatinine Clearance 67.72 ml/min (50-250); Glucose 177 mg/dL (70-99); Potassium 2.6 mmol/L (3.3-5.1)
[2025-02-07] MEDS: KCL 20MEQ in D5.45NS 20 MEQ/1,000 ML IV.SOLN. 100 MEQ IV ×2 (09:32→20:30)
[2025-02-07] MEDS: Potassium Chloride Oral Tablet 20 MEQ 40 MEQ PO (10:38)
--- NOTE | 2025-02-07 11:15 | CASEMGMT ---
Social Work [facility] was updated already that pt may be referred to geripsych. Pt is not medically cleared yet today to be referred. SW called pt's guardian, message left to call SW back so SW can update her. SW will place green sheet in the chart in the event pt no longer needs geripsych and can return to [facility]. If geripsych is needed, staff to call [facility] on the weekend: [phone]. REINALDO Chandler
[2025-02-07 11:25] VITALS: BP 108/57; PULSE 81; RESP 18; TEMP 36.6; O2SAT 97
--- NOTE | 2025-02-07 11:34 | NURSING ---
This RN was able to give potassium and clozapine, pt refused lovenox and vitamins, resting in bed quietly
--- NOTE | 2025-02-07 12:12 | CASEMGMT ---
Social Work Pt's guardian Ashley Galloway called SW back, SW updated her that once pt is medically cleared, we will be referring pt to [facility] to be assessed for geripsych, due to pt's increase in agitation and combativeness. SW explained if the symptoms resolve then pt would not need assessed and could just return to [facility]. Ashley states understanding, and is in support of this if pt needed it. She is in support of whatever is best for the pt, would consider hospice as well if that is appropriate. Ashley explained she is newer to being pt's guardian, and expressed frustration w/the lack of communication w/[facility]. SW offered to find out who would be the best person for her to contact there. She states she has been trying to work with the automotive service director and the SW, but they have not been responsive. She plans to call the ombudsman and the victim witness administrator next. Ashley expressed appreciation for the updates on the pt. SW will continue to follow, green sheet is on the chart in the event pt can return to [facility] and [facility] is not needed. REINALDO Chandler
--- NOTE | 2025-02-07 14:10 | CASEMGMT ---
Addendum entered by Ira Chavez 02/07/25 14:24: Social Work Physician would like to see how things progress w/pt before having a discussion on code status w/guardian. SW let pt's guardian know. REINALDO Chandler Original Note: Social Work SW received a message from pt's guardian Ashley Galloway inquiring about changing pt's code status, states two physicians need to document it's appropriateness however. SW sent a message to the physician to reach out to the guardian. REINALDO Chandler
[2025-02-07 15:55] LABS: Potassium 3.7 mmol/L (3.3-5.1)
[2025-02-07] MEDS: Potassium Chloride Oral Tablet 20 MEQ PO (16:01)
[2025-02-07] MEDS: 0.9% Saline Lock 10 ML Syringe IV (16:43)
[2025-02-07 17:00] VITALS: BP 110/58; PULSE 84; RESP 19; TEMP 36.7; O2SAT 98
--- NOTE | 2025-02-07 20:03 | CPS ---
Attempted to obtain information on where his O2 comes from but he wouldn't answer.
[2025-02-07 22:17] VITALS: BP 135/97; PULSE 85; RESP 22; TEMP 37.1; O2SAT 100
[2025-02-07 22:50] VITALS: RESP 22
[2025-02-08 04:55] LABS: Hematocrit 33.8 % (40-54); Hemoglobin 11.2 g/dL (13.0-16.5); Immature Granulocytes Count 0.090 X10^3/uL (0.0-0.0); Mean Corp Hgb Conc 33.1 g/dL (32-36); Mean Corpuscular Volume 87.6 fL (80-94); Mean Platelet Vol. 11.1 fl (6.2-12.0); NRBC Flagged by Analyzer 0 % (0-5); Platelet Count 242 K/mm3 (150-450); RBC Distribution Width CV 14.4 % (11.6-14.6); RBC Distribution Width SD 44.3 fl (35.1-43.9); Red Blood Count 3.86 M/mm3 (4.6-6.2); White Blood Count 8.0 K/mm3 (4.4-11.0)
[2025-02-08 05:33] LABS: Anion Gap 11 (5-15); BUN 4 mg/dL (4-19); BUN/Creat Ratio 5.6 RATIO (10-20); Calcium,Total 8.2 mg/dL (7.6-11.0); Carbon Dioxide 19.5 mmol/L (21.0-32.0); Chloride 112 mmol/L (98-108); Estimated Creatinine Clearance 71.11 ml/min (50-250); Glucose 145 mg/dL (70-99); Potassium 3.1 mmol/L (3.3-5.1)
[2025-02-08] MEDS: KCL 20MEQ in D5.45NS 20 MEQ/1,000 ML IV.SOLN. 100 MEQ IV ×2 (06:29→17:32)
[2025-02-08 06:31] VITALS: BP 122/78; PULSE 80; RESP 16; TEMP 36.9; O2SAT 97
--- NOTE | 2025-02-08 08:31 | PN.HOSP_ITS ---
Reason for Visit Chief Complaint: Confusion Subjective Subjective Patient seen, he did receive Ativan for agitation last evening. Seen this a.m. much,. Diagnostic data reviewed. Sodium level is down to 142. Potassium still low at 3.1. Objective Data Objective Data Vital Signs: Vital Signs Temp Pulse Resp BP Pulse Ox O2 Del Method O2 Flow Rate 98.4 F 80 16 122/78 H 97 Room Air 2 02/08/25 06:31 02/08/25 06:31 02/08/25 06:31 02/08/25 06:31 02/08/25 06:31 02/08/25 06:31 02/06/25 01:24 Oxygen Flow Rate (L/min) 2 Oxygen Delivery Method Room Air Weight: 64 kg Body Mass Index (BMI) 20.9 Intake & Output: Intake and Output for Last 24 Hours 02/06/25 02/07/25 02/08/25 23:59 23:59 23:59 Intake Total 3960 / 3960 2370.00 / 2370.00 998.33 / 998.33 Balance 3960 / 3960 2370.00 / 2370.00 998.33 / 998.33 Medical Nutrition Assessment Dietitian: Malnutrition Criteria Met Start: 02/05/25 15:10 Freq: Status: Active Protocol: Document 02/05/25 15:10 OK (Rec: 02/05/25 15:11 OK [id number]) Nutrition Malnutrition Evidence of Yes Malnutrition Exists Malnutrition ( Chronic moderate): Evidenced By Suboptimal Energy Intake (Severe),Weight Loss (Moderate ),Physical Changes (Moderate) Clinical Problem Chronic Disease or Condition Related Malnutrition Etiology related to general health decline Signs/Symptoms energy intake <75% > 1 month, weight loss of 17% x 1 year, muscle and adipose tissue wasting of tempels, clavicles, hands. Status Active Problem Recommendation Dietitian Continue NPO until properly evaluated for safe eating Recommendations/ by ACCOUNTANT BUDGET. RD to monitor changes to diet order and Changes possible need for alternate route for nutrition if NPO continues >5-7 days. If PO diet ordered, patient may benefit from oral nutrition supplement- would suggest to continue Magic Cup BID as ordered at [facility] if appropriate. Lab / Micro Data 02/08/25 03:52 02/08/25 03:52 Labs: Laboratory Results - last 24 hr 02/07/25 14:19: Potassium 3.7 02/08/25 03:52: WBC 8.0, RBC 3.86 L, Hgb 11.2 L, Hct 33.8 L, MCV 87.6, MCH 29.0, MCHC 33.1, RDW Std Deviation 44.3 H, RDW Coeff of Kirk 14.4, Plt Count 242, MPV 11.1, Immature Gran % (Auto) 1.100 H, Neut % (Auto) 64.2, Lymph % (Auto) 23.0, Becker % (Auto) 8.0, Eos % (Auto) 3.2, Baso % (Auto) 0.5, Absolute Neuts (auto) 5.1, Absolute Lymphs (auto) 1.84, Nucleated RBC % 0, Sodium 142, Potassium 3.1 L , Chloride 112 H, Carbon Dioxide 19.5 L, Anion Gap 11, BUN 4, Creatinine 0.72, Estim Creat Clear Calc 71.11, Est GFR (MDRD) Non-Af 95, BUN/Creatinine Ratio 5.6 L, Glucose 145 H, Calcium 8.2 Micro: Microbiology 02/04/25 17:28 Urine, Catheterized Urine Culture - Final Presumptive E. coli Physical Exam Narrative GENERAL: Patient in no apparent distress HEENT: Atraumatic; normocephalic EYES; Anicteric, Normal Conjunctiva NECK; supple, normal thyroid, RESPIRATORY: Diminished to auscultation CARDIOVASCULAR: Regular S1 S2, GI: soft, normoactive bowel sounds, : No Renal angle tenderness; EXTREMITIES: No edema, no clubbing, MUSCULOSKELETAL: no muscle wasting NEURO: no lateralizing signs. SKIN: No Rash PSYCH; restless Const Constitutional Narrative: Awake. Confused. Does not follow commands. Does not answer questions properly. Orientation / Consciousness: confused Eyes Eyes Narrative: No icterus Resp normal respiratory effort, no retractions, no use of accessory muscles and clear to auscultation bilaterally Cardio regular rate, regular rhythm, S1 normal heart sound and S2 normal heart sound GI normal to inspection, nondistended, normoactive bowel sounds, soft to palpation, non-tender and non-distended Extremity normal to inspection Extremity Narrative: No edema Neuro moves all extremities Sensorium / Orientation: awake; Negative for alert Assessment & Plan Assessment/Plan (1) Metabolic encephalopathy: (2) Hyponatremia: (3) Ketosis: (4) Bacteriuria: PLAN: Plan Patient is a 74-year-old gentleman resident is an extended care facility was brought to the emergency department with shortness of breath.Chest x-ray demonstrated no focal consolidation but mild pulmonary vascular congestion. Patient was found to be hyponatremic with sodium levels of 150 admitted to regular nursing floor for further management 1. Acute dyspnea ? Checst x-ray did show mild pulmonary vascular congestion. Patient presentation however not consistent with congestive heart failure we will continue with monitoring 2. Hypernatremia ? Secondary to severe dehydration patient started on 0.45 saline daily BMP ordered to assess response to therapy ? 02/06/2025; sodium levels down to 149 will continue with current IV fluid and repeat BMP in a.m. ? 02/07/2025; sodium level down to 144 ? 02/08/2025; sodium levels down to 142. 3. Acute metabolic encephalopathy ? Due to combination of patient hyponatremia as well as acute cystitis 4. Acute cystitis with E. coli ? Patient started on ceftriaxone urine culture sent ? 02/06/2025 urine cultures came back positive for E. coli patient remains on appropriate antibiotic therapy 5. Acute kidney injury ? Patient was on IV fluid with subsequent monitoring of electrolyte 6. Hypothyroidism ? Patient is on levothyroxine home dose continued 7. Diabetes mellitus type II - Managed with diet 8. Hypertension ? Blood pressure controlled, home medications continued with dose adjustment as needed 9. GERD ? On PPI 10. BPH with lower urinary obstructive symptoms - Patient treated with tamsulosin 11. Depression with anxiety ? Per history patient is on trazodone and fluoxetine 12. DVT prophylaxis ? On enoxaparin 13. Hypokalemia ?Corrected via oral route as well as p.o. Repeat potassium levels ordered for 2 PM to assess response to therapy ? 02/08/2025; potassium still remains low at 3.1 additional potassium given Time spent in the patient's overall evaluation,decision-making process, review of diagnostic data, adjustment of management, discussion with other providers, nursing nursing and ancillary staff involved in patient's care documentation, 36 minutes Charges/Coding Visit Charges Inpatient E&M: 57748 Subs Hosp L2
[2025-02-08] MEDS: Senna/Docusate Sodium 1 Tablet 2 TABLET PO ×2 (09:37→21:22)
[2025-02-08] MEDS: Cholecalciferol (Vit D3) 125 MCG CAPSULE (5,000 UNITS) PO (09:37)
[2025-02-08] MEDS: Potassium Chloride Oral Tablet 20 MEQ PO ×2 (09:37→16:08)
[2025-02-08 10:05] VITALS: BP 118/64; PULSE 92; RESP 18; TEMP 36.6; O2SAT 95
[2025-02-08 14:20] VITALS: BP 110/60; PULSE 95; RESP 18; TEMP 36.5; O2SAT 97
[2025-02-08 19:40] VITALS: BP 106/62; PULSE 105; RESP 18; TEMP 36.7; O2SAT 97
[2025-02-09 02:00] VITALS: BP 103/53; PULSE 98; RESP 18; TEMP 36.9; O2SAT 97
[2025-02-09] MEDS: KCL 20MEQ in D5.45NS 20 MEQ/1,000 ML IV.SOLN. 100 MEQ IV (03:34)
--- NOTE | 2025-02-09 07:19 | PCM.PN.HOSP ---
Reason for Visit Chief Complaint: Confusion Subjective Subjective . Patient seen at bedside stated did not require Ativan during the night. Plans for patient to be assessed for discharge back to his ECF Objective Data Objective Data Vital Signs: Vital Signs Temp Pulse Resp BP Pulse Ox O2 Del Method O2 Flow Rate 98.4 F 98 18 103/53 L 97 Room Air 2 02/09/25 02:00 02/09/25 02:00 02/09/25 02:00 02/09/25 02:00 02/09/25 02:00 02/09/25 04:00 02/08/25 19:45 Oxygen Flow Rate (L/min) 2 Oxygen Delivery Method Room Air Weight: 64 kg Body Mass Index (BMI) 20.9 Intake & Output: Intake and Output for Last 24 Hours 02/07/25 02/08/25 02/09/25 23:59 23:59 23:59 Intake Total 2370.00 / 2370.00 2168.33 / 2168.33 1200 / 1200 Balance 2370.00 / 2370.00 2168.33 / 2168.33 1200 / 1200 Medical Nutrition Assessment Dietitian: Malnutrition Criteria Met Start: 02/05/25 15:10 Freq: Status: Active Protocol: Document 02/05/25 15:10 RI (Rec: 02/05/25 15:11 RI [id number]) Nutrition Malnutrition Evidence of Yes Malnutrition Exists Malnutrition ( Chronic moderate): Evidenced By Suboptimal Energy Intake (Severe),Weight Loss (Moderate ),Physical Changes (Moderate) Clinical Problem Chronic Disease or Condition Related Malnutrition Etiology related to general health decline Signs/Symptoms energy intake <75% > 1 month, weight loss of 17% x 1 year, muscle and adipose tissue wasting of tempels, clavicles, hands. Status Active Problem Recommendation Dietitian Continue NPO until properly evaluated for safe eating Recommendations/ by DIE OPERATOR. RD to monitor changes to diet order and Changes possible need for alternate route for nutrition if NPO continues >5-7 days. If PO diet ordered, patient may benefit from oral nutrition supplement- would suggest to continue Magic Cup BID as ordered at [facility] if appropriate. Lab / Micro Data 02/09/25 07:39 02/08/25 03:52 Micro: Microbiology 02/04/25 17:28 Urine, Catheterized Urine Culture - Final Presumptive E. coli Physical Exam Narrative GENERAL: Patient in no apparent distress HEENT: Atraumatic; normocephalic EYES; Anicteric, Normal Conjunctiva NECK; supple, normal thyroid, RESPIRATORY: Diminished to auscultation CARDIOVASCULAR: Regular S1 S2, GI: soft, normoactive bowel sounds, : No Renal angle tenderness; EXTREMITIES: No edema, no clubbing, MUSCULOSKELETAL: no muscle wasting NEURO: no lateralizing signs. SKIN: No Rash PSYCH; restless Assessment & Plan Assessment/Plan (1) Metabolic encephalopathy: (2) Hyponatremia: (3) Ketosis: (4) Bacteriuria: PLAN: Plan Patient is a 74-year-old gentleman resident is an extended care facility was brought to the emergency department with shortness of breath.Chest x-ray demonstrated no focal consolidation but mild pulmonary vascular congestion. Patient was found to be hyponatremic with sodium levels of 150 admitted to regular nursing floor for further management 1. Acute dyspnea ? Checst x-ray did show mild pulmonary vascular congestion. Patient presentation however not consistent with congestive heart failure we will continue with monitoring 2. Hypernatremia ? Secondary to severe dehydration patient started on 0.45 saline daily BMP ordered to assess response to therapy ? 02/06/2025; sodium levels down to 149 will continue with current IV fluid and repeat BMP in a.m. ? 02/07/2025; sodium level down to 144 ? 02/08/2025; sodium levels down to 142. 3. Acute metabolic encephalopathy ? Due to combination of patient hyponatremia as well as acute cystitis ? 02/09/2025; encephalopathy resolved plan is for patient to be discharged back to his ECF 4. Acute cystitis with E. coli ? Patient started on ceftriaxone urine culture sent ? 02/06/2025 urine cultures came back positive for E. coli patient remains on appropriate antibiotic therapy 5. Acute kidney injury ? Patient was on IV fluid with subsequent monitoring of electrolyte 6. Hypothyroidism ? Patient is on levothyroxine home dose continued 7. Diabetes mellitus type II - Managed with diet 8. Hypertension ? Blood pressure controlled, home medications continued with dose adjustment as needed 9. GERD ? On PPI 10. BPH with lower urinary obstructive symptoms - Patient treated with tamsulosin 11. Depression with anxiety ? Per history patient is on trazodone and fluoxetine 12. DVT prophylaxis ? On enoxaparin 13. Hypokalemia ?Corrected via oral route as well as p.o. Repeat potassium levels ordered for 2 PM to assess response to therapy ? 02/08/2025; potassium still remains low at 3.1 additional potassium given Time spent in the patient's overall evaluation,decision-making process, review of diagnostic data, adjustment of management, discussion with other providers, nursing nursing and ancillary staff involved in patient's care documentation, 35 minutes Charges/Coding Visit Charges Inpatient E&M: 28923 Subs Hosp L2
[2025-02-09 07:48] LABS: Hematocrit 35.2 % (40-54); Hemoglobin 11.3 g/dL (13.0-16.5); Mean Corp Hgb Conc 32.1 g/dL (32-36); Mean Corpuscular Volume 88.7 fL (80-94); Mean Platelet Vol. 11.1 fl (6.2-12.0); Platelet Count 230 K/mm3 (150-450); RBC Distribution Width CV 14.7 % (11.6-14.6); RBC Distribution Width SD 46.0 fl (35.1-43.9); Red Blood Count 3.97 M/mm3 (4.6-6.2); White Blood Count 7.3 K/mm3 (4.4-11.0)
--- NOTE | 2025-02-09 08:09 | PCM.DC.SUM ---
Providers Date of Admission: 02/04/25 Date of Discharge: 02/09/25 Primary Care Physician: Dr. Simone Messer MD Reason For Visit: ENCEPHALOPATHY Diagnosis Discharge Diagnosis (1) Metabolic encephalopathy: Status: Acute Code(s): G93.41 - Metabolic encephalopathy (2) Hyponatremia: Status: Acute Code(s): E87.1 - Hypo-osmolality and hyponatremia (3) Ketosis: Status: Acute Code(s): E88.89 - Other specified metabolic disorders (4) Bacteriuria: Status: Acute Code(s): R82.71 - Bacteriuria Plan Patient is a 74-year-old gentleman resident is an extended care facility was brought to the emergency department with shortness of breath.Chest x-ray demonstrated no focal consolidation but mild pulmonary vascular congestion. Patient was found to be hyponatremic with sodium levels of 150 admitted to regular nursing floor for further management 1. Acute dyspnea ? Checst x-ray did show mild pulmonary vascular congestion. Patient presentation however not consistent with congestive heart failure we will continue with monitoring 2. Hypernatremia ? Secondary to severe dehydration patient started on 0.45 saline daily BMP ordered to assess response to therapy ? 02/06/2025; sodium levels down to 149 will continue with current IV fluid and repeat BMP in a.m. ? 02/07/2025; sodium level down to 144 ? 02/08/2025; sodium levels down to 142. 3. Acute metabolic encephalopathy ? Due to combination of patient hyponatremia as well as acute cystitis ? 02/09/2025; encephalopathy resolved plan is for patient to be discharged back to his ECF 4. Acute cystitis with E. coli ? Patient started on ceftriaxone urine culture sent ? 02/06/2025 urine cultures came back positive for E. coli patient remains on appropriate antibiotic therapy 5. Acute kidney injury ? Patient was on IV fluid with subsequent monitoring of electrolyte 6. Hypothyroidism ? Patient is on levothyroxine home dose continued 7. Diabetes mellitus type II - Managed with diet 8. Hypertension ? Blood pressure controlled, home medications continued with dose adjustment as needed 9. GERD ? On PPI 10. BPH with lower urinary obstructive symptoms - Patient treated with tamsulosin 11. Depression with anxiety ? Per history patient is on trazodone and fluoxetine 12. DVT prophylaxis ? On enoxaparin 13. Hypokalemia ?Corrected via oral route as well as p.o. Repeat potassium levels ordered for 2 PM to assess response to therapy ? 02/08/2025; potassium still remains low at 3.1 additional potassium given Time spent in the patient's overall evaluation,decision-making process, review of diagnostic data, adjustment of management, discussion with other providers, nursing nursing and ancillary staff involved in patient's care documentation, 35 minutes Medications at Discharge Home Medications amlodipine 10 mg tablet 10 mg PO QHS BP 07/30/17 tamsulosin 0.4 mg capsule 0.4 mg PO QHS PROSTATE 07/30/17 atorvastatin 10 mg tablet 10 mg PO QHS cholesterol 07/04/22 cholecalciferol (vitamin D3) 125 mcg (5,000 unit) tablet (Vitamin D3) 125 mcg PO DAILY .supplement 07/04/22 ipratropium 0.5 mg-albuterol 3 mg (2.5 mg base)/3 mL nebulization soln 3 ml inhalation Q4H PRN PRN Wheezing 07/04/22 omeprazole 20 mg capsule,delayed release 20 mg PO DAILY gerd 07/04/22 clonazepam 0.5 mg tablet 0.5 mg PO TID anxiety 01/03/25 cyanocobalamin (vitamin B-12) 1,000 mcg capsule 1,000 mcg PO DAILY supplement 01/03/25 fluoxetine 20 mg capsule 20 mg PO DAILY mood 01/03/25 trazodone 100 mg tablet 100 mg PO QHS insomnia 01/03/25 bisacodyl 10 mg rectal suppository 10 mg MI DAILY stool #0 ea 01/07/25 sennosides 8.6 mg-docusate sodium 50 mg tablet (Stimulant Laxative Plus) 2 tab PO BID stool #0 tabs 01/07/25 clozapine 100 mg tablet 150 mg PO QHS anxiety 02/04/25 clozapine 50 mg tablet (Clozaril) 100 mg PO DAILY 02/04/25 levothyroxine 50 mcg tablet 50 mcg PO DAILY thyroid 02/04/25 acetaminophen 325 mg tablet 650 mg (2 x 325 mg) PO Q6H PRN PRN Pain 1-10 Or Fever>100.7 #0 tabs 02/09/25 cefdinir 300 mg capsule 300 mg PO BID #14 caps 02/09/25 potassium chloride 20 mEq tablet,extended release(part/cryst) 20 meq PO BIDCM #0 tabs 02/09/25 Physical Exam Narrative GENERAL: Patient in no apparent distress HEENT: Atraumatic; normocephalic EYES; Anicteric, Normal Conjunctiva NECK; supple, normal thyroid, RESPIRATORY: Diminished to auscultation CARDIOVASCULAR: Regular S1 S2, GI: soft, normoactive bowel sounds, : No Renal angle tenderness; EXTREMITIES: No edema, no clubbing, MUSCULOSKELETAL: no muscle wasting NEURO: no lateralizing signs. SKIN: No Rash PSYCH; cooperative Medical Records Data Medical Nutrition Assessment Dietitian: Malnutrition Criteria Met Start: 02/05/25 15:10 Freq: Status: Active Protocol: Document 02/05/25 15:10 PR (Rec: 02/05/25 15:11 PR [id number]) Nutrition Malnutrition Evidence of Yes Malnutrition Exists Malnutrition ( Chronic moderate): Evidenced By Suboptimal Energy Intake (Severe),Weight Loss (Moderate ),Physical Changes (Moderate) Clinical Problem Chronic Disease or Condition Related Malnutrition Etiology related to general health decline Signs/Symptoms energy intake <75% > 1 month, weight loss of 17% x 1 year, muscle and adipose tissue wasting of tempels, clavicles, hands. Status Active Problem Recommendation Dietitian Continue NPO until properly evaluated for safe eating Recommendations/ by RETAIL ACCOUNT SPECIALIST. RD to monitor changes to diet order and Changes possible need for alternate route for nutrition if NPO continues >5-7 days. If PO diet ordered, patient may benefit from oral nutrition supplement- would suggest to continue Magic Cup BID as ordered at ECF if appropriate. Weight / BMI Weight Weight: 64 kg Body Mass Index (BMI) 20.9 ABG / Lab / Microbiology Data 02/09/25 07:39 02/08/25 03:52 Laboratory: Laboratory Results - last 24 hr 02/09/25 07:39: WBC 7.3, RBC 3.97 L, Hgb 11.3 L, Hct 35.2 L, MCV 88.7, MCH 28.5, MCHC 32.1, RDW Std Deviation 46.0 H, RDW Coeff of Kirk 14.7 H, Plt Count 230, MPV 11.1 Microbiology: Microbiology 02/04/25 17:28 Urine, Catheterized Urine Culture - Final Presumptive E. coli D/C Instructions DC O2, CPAP, BIPAP Needs Home O2 Discharge instructions: No Meaningful Use Info Meaningful Use Meaningful Use Diagnoses (Choose all that apply): None applicable Discharge Plan Admission Admit Date/Time: 02/04/25 18:31 Attending Provider: Jose Mcmanus Primary Care Provider: Simone Messer Consulting Providers: Leopoldo Cantor Discharge Orders/Prescriptions Prescriptions: New acetaminophen 325 mg Tablet 650 mg PO Q6H PRN PRN (Reason: Pain 1-10 Or Fever>100.7) Qty: 0 0RF potassium chloride 20 mEq Tablet,Er Particles/Crystals 20 meq PO BIDCM Qty: 0 0RF cefdinir 300 mg capsule 300 mg PO BID Qty: 14 0RF Continued tamsulosin 0.4 MG capsule 0.4 mg PO QHS amlodipine 10 MG tablet 10 mg PO QHS ipratropium-albuterol 0.5 mg-3 mg(2.5 mg base)/3 mL solution for nebulization 3 ml inhalation Q4H PRN PRN (Reason: Wheezing) atorvastatin 10 mg tablet 10 mg PO QHS omeprazole 20 mg Capsule,Delayed Release(Dr/Ec) 20 mg PO DAILY cholecalciferol (vitamin D3) [Vitamin D3] 125 mcg (5,000 unit) Tablet 125 mcg PO DAILY clonazepam 0.5 mg tablet 0.5 mg PO TID trazodone 100 mg tablet 100 mg PO QHS fluoxetine 20 mg capsule 20 mg PO DAILY cyanocobalamin (vitamin B-12) 1,000 mcg capsule 1,000 mcg PO DAILY sennosides-docusate sodium [Stimulant Laxative Plus] 8.6-50 mg Tablet 2 tab PO BID Qty: 0 0RF bisacodyl 10 mg Suppository 10 mg MI DAILY Qty: 0 0RF clozapine 100 mg tablet 150 mg PO QHS clozapine [Clozaril] 50 mg tablet 100 mg PO DAILY Rx Instructions: in the am levothyroxine 50 mcg tablet 50 mcg PO DAILY Referrals / Follow Up: Simone Messer MD [Primary Care Provider, Family Practice] Disposition Disposition (needs filled in before D/C Order can be placed): Intermediate Facility Charges/Coding Visit Charges Inpatient E&M: 91830 Disch Hosp >30min
--- NOTE | 2025-02-09 08:12 | PCM.TXEXTCAR ---
Diet Diet Order/Speech Therapy: INPATIENT Hospital Diet / Speech Therapy Order(s) 02/08/25 09:57 Diet: Regular - General Food consistency:: Pureed Liquid Consistency:: Regular/Thin Diet Comments: 1:1 SUPERVISION/ASSIST WITH MEALS. FEED ONLY WHEN ALERT. Speech Therapy Comments: MEDS CRUSHED IN A/S. GENERAL SWALLOW GUIDELINES. Routine Orders/Code Status Code Status: Full Code DC O2, CPAP, BIPAP needs Home O2 Discharge instructions: No Problem/Diagnosis (1) Metabolic encephalopathy: Status: Acute Code(s): G93.41 - Metabolic encephalopathy (2) Hyponatremia: Status: Acute Code(s): E87.1 - Hypo-osmolality and hyponatremia (3) Ketosis: Status: Acute Code(s): E88.89 - Other specified metabolic disorders (4) Bacteriuria: Status: Acute Code(s): R82.71 - Bacteriuria Plan Patient is a 74-year-old gentleman resident is an extended care facility was brought to the emergency department with shortness of breath.Chest x-ray demonstrated no focal consolidation but mild pulmonary vascular congestion. Patient was found to be hyponatremic with sodium levels of 150 admitted to regular nursing floor for further management 1. Acute dyspnea ? Checst x-ray did show mild pulmonary vascular congestion. Patient presentation however not consistent with congestive heart failure we will continue with monitoring 2. Hypernatremia ? Secondary to severe dehydration patient started on 0.45 saline daily BMP ordered to assess response to therapy ? 02/06/2025; sodium levels down to 149 will continue with current IV fluid and repeat BMP in a.m. ? 02/07/2025; sodium level down to 144 ? 02/08/2025; sodium levels down to 142. 3. Acute metabolic encephalopathy ? Due to combination of patient hyponatremia as well as acute cystitis ? 02/09/2025; encephalopathy resolved plan is for patient to be discharged back to his ECF 4. Acute cystitis with E. coli ? Patient started on ceftriaxone urine culture sent ? 02/06/2025 urine cultures came back positive for E. coli patient remains on appropriate antibiotic therapy 5. Acute kidney injury ? Patient was on IV fluid with subsequent monitoring of electrolyte 6. Hypothyroidism ? Patient is on levothyroxine home dose continued 7. Diabetes mellitus type II - Managed with diet 8. Hypertension ? Blood pressure controlled, home medications continued with dose adjustment as needed 9. GERD ? On PPI 10. BPH with lower urinary obstructive symptoms - Patient treated with tamsulosin 11. Depression with anxiety ? Per history patient is on trazodone and fluoxetine 12. DVT prophylaxis ? On enoxaparin 13. Hypokalemia ?Corrected via oral route as well as p.o. Repeat potassium levels ordered for 2 PM to assess response to therapy ? 02/08/2025; potassium still remains low at 3.1 additional potassium given Time spent in the patient's overall evaluation,decision-making process, review of diagnostic data, adjustment of management, discussion with other providers, nursing nursing and ancillary staff involved in patient's care documentation, 35 minutes Allergies/Procedures Done in Hospital Allergies No Known Allergies Allergy (Verified 02/04/25 15:35) Type of Care/Length of Stay Estimated LOS: More Than 30 Days Type of Care Needed: Intermediate Rehab Potential: Fair Prognosis: Fair Additional Orders/Day of Discharge Day of Discharge: 02/09/25 Dietary and Speech Recommendations Dietitian Recommendations/Changes: Continue NPO until properly evaluated for safe eating by RENDERING EQUIPMENT TENDER. RD to monitor changes to diet order and possible need for alternate route for nutrition if NPO continues >5-7 days. If PO diet ordered, patient may benefit from oral nutrition supplement- would suggest to continue Magic Cup BID as ordered at ECF if appropriate. Discharge Plan Admission Admit Date/Time: 02/04/25 18:31 Attending Provider: Jose Mcmanus Primary Care Provider: Simone Messer Consulting Providers: Leopoldo Cantor Discharge Orders/Prescriptions Prescriptions: New acetaminophen 325 mg Tablet 650 mg PO Q6H PRN PRN (Reason: Pain 1-10 Or Fever>100.7) Qty: 0 0RF potassium chloride 20 mEq Tablet,Er Particles/Crystals 20 meq PO BIDCM Qty: 0 0RF cefdinir 300 mg capsule 300 mg PO BID Qty: 14 0RF Continued tamsulosin 0.4 MG capsule 0.4 mg PO QHS amlodipine 10 MG tablet 10 mg PO QHS ipratropium-albuterol 0.5 mg-3 mg(2.5 mg base)/3 mL solution for nebulization 3 ml inhalation Q4H PRN PRN (Reason: Wheezing) atorvastatin 10 mg tablet 10 mg PO QHS omeprazole 20 mg Capsule,Delayed Release(Dr/Ec) 20 mg PO DAILY cholecalciferol (vitamin D3) [Vitamin D3] 125 mcg (5,000 unit) Tablet 125 mcg PO DAILY clonazepam 0.5 mg tablet 0.5 mg PO TID trazodone 100 mg tablet 100 mg PO QHS fluoxetine 20 mg capsule 20 mg PO DAILY cyanocobalamin (vitamin B-12) 1,000 mcg capsule 1,000 mcg PO DAILY sennosides-docusate sodium [Stimulant Laxative Plus] 8.6-50 mg Tablet 2 tab PO BID Qty: 0 0RF bisacodyl 10 mg Suppository 10 mg IN DAILY Qty: 0 0RF clozapine 100 mg tablet 150 mg PO QHS clozapine [Clozaril] 50 mg tablet 100 mg PO DAILY Rx Instructions: in the am levothyroxine 50 mcg tablet 50 mcg PO DAILY Referrals / Follow Up: Simone Messer MD [Primary Care Provider, Family Practice] Disposition Disposition (needs filled in before D/C Order can be placed): Long Term Facility
[2025-02-09 08:16] LABS: AST(SGOT) 13 U/L (<=37); Alanine Aminotransfer ALT/SGPT 7 U/L (<=46); Albumin, Serum 2.9 g/dL (3.4-4.8); Alkaline Phosphatase 71 U/L (40-129); Anion Gap 9 (5-15); BUN 3 mg/dL (4-19); BUN/Creat Ratio 3.5 RATIO (10-20); Calcium,Total 8.4 mg/dL (7.6-11.0); Carbon Dioxide 20.7 mmol/L (21.0-32.0); Chloride 110 mmol/L (98-108); Estimated Creatinine Clearance 69.38 ml/min (50-250); Globulin 2.6 g/dL (2.2-4.2); Glucose 194 mg/dL (70-99); Magnesium 1.7 mg/dL (1.5-2.2); Potassium 3.4 mmol/L (3.3-5.1)
[2025-02-09 08:35] VITALS: BP 104/52; PULSE 95; RESP 18; TEMP 36.7; O2SAT 98
[2025-02-09] MEDS: Cholecalciferol (Vit D3) 125 MCG CAPSULE (5,000 UNITS) PO (08:41)
[2025-02-09] MEDS: Potassium Chloride Oral Tablet 20 MEQ PO (08:41)
[2025-02-09] MEDS: Senna/Docusate Sodium 1 Tablet 2 TABLET PO (08:41)
--- NOTE | 2025-02-09 09:45 | NURSING ---
Report called to Mireya Loera to Vann[facility] bronson to be picked up in 60 mi.
== END 2025-02-09 10:30 | disposition skilled nursing facility (03) | DRG 640 ==
LOC: ED 18:37 → MS3 19:05
PROVIDERS: Emergency Provider Emergency Medicine; PCP Family Medicine; Visit Provider Internal Medicine
DX: E86.0 Dehydration (principal); G93.41 Metabolic encephalopathy; E44.0 Moderate protein-calorie malnutrition; F03.B11 Unspecified dementia, moderate, with agitation; N17.9 Acute kidney failure, unspecified; N30.00 Acute cystitis without hematuria; N13.8 Other obstructive and reflux uropathy; E87.0 Hyperosmolality and hypernatremia; E88.89 Other specified metabolic disorders; E11.9 Type 2 diabetes mellitus without complications; B96.20 Unspecified Escherichia coli [E. coli] as the cause of diseases classified elsewhere; E03.9 Hypothyroidism, unspecified; I10 Essential (primary) hypertension; F32.A Depression, unspecified; K21.9 Gastro-esophageal reflux disease without esophagitis; E78.5 Hyperlipidemia, unspecified; F41.9 Anxiety disorder, unspecified; E87.6 Hypokalemia; Z99.81 Dependence on supplemental oxygen; N40.1 Benign prostatic hyperplasia with lower urinary tract symptoms; R09.89 Other specified symptoms and signs involving the circulatory and respiratory systems; R82.71 Bacteriuria; Z68.20 Body mass index [BMI] 20.0-20.9, adult; Z79.899 Other long term (current) drug therapy; Z79.890 Hormone replacement therapy; Z86.16 Personal history of COVID-19
CPT/HCPCS: 36415; 71045; 80048; 80053; 81001; 82803; 82962; 83605; 83735; 84100; 84132; 84484; 85025; 85027; 87086; 87088; 87186; 92526; 92610; 93005; 99285; A4216; J0696